=== PATIENT | female | born 1995 | race Caucasian/White ===

== ENCOUNTER → 2025-07-03 | Outpatient (CLI) | payer OTHER, SELFPAY ==
--- NOTE | 2025-07-03 10:36 | NM_ITS ---
PROCEDURE: GASTRIC EMPTYING STUDY 07/03/2025 REASON FOR EXAM: ABD PAIN TECHNIQUE: Procedure Code: NMGES Modality: NM Procedure: GASTRIC EMPTYING STUDY The patient ingested a standard meal of cooked oatmeal mixed with 1 mCi sulfur colloid, toasted white bread, jelly, and water. Total time taken to ingest the meal was 10 minutes. Approximately 90 % of the meal was ingested. There was no vomiting postprandially. Anterior and posterior planar images of the upper abdomen were obtained for 1 minute immediately following the meal at 1h, 2h and 4h if more than 10% of the activity persisted within the stomach. Regions of interest were drawn, and a geometric mean was used to calculate a [id number]. RADIOPHARMACEUTICAL: Sulfur colloid DOSE 1mCi FINDINGS: Percent activity remaining in stomach: 1 hour 90 % (normal 37-90%) NM/Gastric Emptying Study IMPRESSION: Normal gastric emptying study, no evidence of gastroparesis. T1/2 is 32.85 min utes Stomach was 90% empty at 60 minutes Reading Location: [id number]
--- OUTSIDE RECORDS SUMMARY | 2025-07-03 10:55 | XMS RPT_ITS | CCD ---
Author Organization [facility] ion [facility] Care Team Providers Care Pet Handler Name Role Phone Unavailable Unavailable Unavailable Will Salamanca RGuzman Unavailable Unavailable SalamancaAlainaWill RGuzman Unavailable Unavailable Salamanca, Will R. Unavailable Unavailable CONSULTANTS, PEDATRIC Unavailable Unavailabl e Alaina Salamancarick R. Unavailable Unavailable Salamanca, Will RGuzman Unavailable Unavailable CONSULTANTS, PEDATRIC Unavailable Unavailabl e No, Physician Unavailable Unavailable Shook, Hanane R Unavailable Unavailable Shook, Hanane R Unavailable Unavailable Meraz, Shruti L Unavailable Unavailable Meraz Shruti L Unavailable Unavailable SELF, SELF Referring Unavailable ELIZ TURNER Attending Unavailable SELF, SELF Referring Unavailable SANJANA RAMOS Attending Unavailabl e Unavailable Primary Care Provider Unavailabl e Unavailable Primary Care Provider Unavailabl e NO, PHYSICIAN Primary Care Unavailable DANIEL NAIK Attending Unavailable Unavailable Primary Care Provider Unavailabl e DAVALOS Attending Unavailable Rita Iqbal Unavailable Unavailable Primary Care Provider Unavailabl e STEPHANIA LOREDO MD Attending Unavailable RICARDA RANDALL MD Primary Care Unavailable SUSAN LIU Referring Unavailable Unavailable Primary Care Provider Unavailabl e Daniel Guerrero DO Primary Care Provider Daniel Guerrero DO Primary Care Provider Shar Manzanares DO Unavailable [phone] Mastruccmarianela RAMACHANDRANN.Boubacar JORDAN Primary Care Provider Qianaccmarianela LARA - Boubacar JORDAN Primary Care Provid er Shar Manzanares DO Unavailable [phone] Mastrucci 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.Boubacar JORDAN Unavailable Guerrero DO, Daniel T Primary Care Provider MASTRUCCI, BOUBACAR Primary Care Unavailable GENTILE, BOUBACAR Admitting Unavailable ELLYN, BOUBACAR Attending Unavailable DERITA, JESSICA Attending Unavailable MASTRUCCI, BOUBACAR Primary Care Unavailable TAMI DARNELL Attending Unavailable MASTRUCCI, BOUBACAR Primary Care Unavailable DERITA, JESSICA Attending Unavailable DERITA, JESSICA Referring Unavailable MASTRUCCI, BOUBACAR Primary Care Unavailable DERITA, JESSICA Attending Unavailable DERITA, JESSICA Referring Unavailable MASTRUCCI, BOUBACAR Primary Care Unavailable DERITA, JESSICA Attending Unavailable DERITA, JESSICA Referring Unavailable MASTRUCCI, BOUBACAR Primary Care Unavailable DERITA, JESSICA Attending Unavailable DERITA, JESSICA Referring Unavailable MASTRUCCI, BOUBACAR Primary Care Unavailable KIMI LUCAS Attending Unavailable DIANN ANDREW Attending Unavailable DERITA, JESSICA Attending Unavailable DERITA, JESSICA Referring Unavailable MASTRUCCI, BOUBACAR Primary Care Unavailable AMADOU DUNLAP Attending Unavailable NIHARIKA, AMADOU Referring Unavailable MASTRUCCI, BOUBACAR Primary Care Unavailable Daniel Guerrero MD Primary Care Provider Ramses Pyle MD Unavailable [phone] Daniel Guerrero DO Primary Care Provider Unavailable Primary Care Provider UnavailAashish Sierra RN Unavailable [facility] Hanna Unavailable Unavail able Aashish Skinner RN Unavailable Friend Dr. Alex STOLL Attending Provider [facility] Doctor, Out of Primary Care Provider Edwar evans [facility] Doctor, Out of Referring Provider Unavailab Daniel Arauz DO Primary Care Provider CONCEPCION TOTH Attending Unavailable SELF Referring Unavailable GUERRERO, DANIEL T Primary Care Unavailable RUBI GONCALVES Attending Unavailable MARTHA HASSAN Referring Unavailable GUERRERO, DANIEL T Primary Care Unavailable YANG WORKMAN Attending Unavailable MARTHA HASSAN Referring Unavailable GUERRERO, DANIEL T Primary Care Unavailable BEAU THURMAN Attending Unavailable GUERRERO, DANIEL T Primary Care Unavailable GUERRERO, DANIEL T Primary Care Unavailable JAN GREEN Attending Unavailable GUERRERO, DANIEL T Primary Care Unavailable MARQUITA MENJIVAR Attending Unavailable BOYDALIZA Attending Unavailable BOYD, ALIZA Referring Unavailable GUERRERO, DANIEL T Primary Care Unavailable GUERRERO, DANIEL T Attending Unavailable GUERRERO, DANIEL T Primary Care Unavailable MASTRUCCI, BOUBACAR Attending Unavailable MASTRUCCI, BOUBACAR Primary Care Unavailable MAKENZIE LYNN Referring Unavailable GUERRERO, DANIEL T Primary Care Unavailable SMITHNIEVES Attending Unavailable SELF Referring Unavailable GUERRERO, DANIEL T Primary Care Unavailable SMITHNIEVES Referring Unavailable GUERRERO, DANIEL T Primary Care Unavailable SMITHNIEVES Referring Unavailable GUERRERO, DANIEL T Primary Care Unavailable BOYD, ALIZA Attending Unavailable SELF Referring Unavailable GUERRERO, DANIEL T Primary Care Unavailable GUERRERO, DANIEL T Primary Care Unavailable YUAN SCHAFER Referring Unavailable GUERRERO, DANIEL T Primary Care Unavailable GUERRERO, DANIEL T Attending Unavailable GUERRERO, DANIEL T Primary Care Unavailable GUERRERO, DANIEL T Attending Unavailable SELF Referring Unavailable GUERRERO, DANIEL T Primary Care Unavailable BLESSING WRIGHT Attending Unavailable YANG WORKMAN Referring Unavailable GUERRERO, DANIEL T Primary Care Unavailable MILLA MOTLEY Admitting Unavailable MILLA MOTLEY Attending Unavailable SCHWMASHAKERTMILLA Referring Unavailable MASTRUCCI, BOUBACAR Primary Care Unavailable GUERRERO, DANIEL T Primary Care Unavailable BENNY PAGE Admitting Unavailable COLEEN GUILLEN Attending Unavailable CONCEPCION TOTH Consulting Unavailable ERICK HOLLOWAY Attending Unavailable GUERRERO, DANIEL M Primary Care Unavailable GUERRERO, DANIEL T Primary Care Unavailable SMITHNIEVES Attending Unavailable GUERRERO, DANIEL T Primary Care Unavailable MASTRUCCI, BOUBACAR Referring Unavailable MASTRUCCI, BOUBACAR Primary Care Unavailable RAMSES PYLE Referring Unavailable MASTRUCCI, BOUBACAR Primary Care Unavailable MASTRUCCI, BOUBACAR Attending Unavailable MASTRUCCI, BOUBACAR Referring Unavailable MASTRUCCI, BOUBACAR Primary Care Unavailable DANIEL MAURO Referring Unava ilable GUERRERO, DANIEL T Primary Care Unavailable GUERRERO, DANIEL T Attending Unavailable MASTRUCCI, BOUBACAR Primary Care Unavailable GUERRERO, DANIEL M Primary Care Unavailable RAMSES PYLE Attending Unavailable SELF Referring Unavailable MASTRUCCI, BOUBACAR Primary Care Unavailable RAMSES PYLE Attending Unavailable SELF Referring Unavailable GUERRERO, DANIEL T Primary Care Unavailable NEL ANDERSON Referring Unavailable GUERRERO, DANIEL T Primary Care Unavailable GUERRERO, DANIEL T Attending Unavailable GUERRERO, DANIEL T Primary Care Unavailable GUERRERO, DANIEL T Referring Unavailable GUERRERO, DANIEL T Primary Care Unavailable BEAU BOYDIN Attending Unavailable BOYD, YASSIN Referring Unavailable GUERRERO, DANIEL T Primary Care Unavailable GUERRERO, DANIEL T Referring Unavailable GUERRERO, DANIEL T Primary Care Unavailable GUERRERO, DANIEL T Primary Care Unavailable Liz Burns Attending Provider UnavailAlex Christine Attending Unavailable [facility] Doctor, Out of Referring Unavailable [facility] Doctor, Out of Primary Care Unavailable [facility] Doctor, Out of Referring Unavailable [facility] Doctor, Out of Primary Care Unavailable Alex De Luna Attending Unavailable PACKBERNARDLE Referring Unavailable GUERRERO, DANIEL T Primary Care Unavailable GUERRERO, DANIEL T Referring Unavailable GUERRERO, DANIEL T Primary Care Unavailable GUERRERO, DANIEL T Referring Unavailable GUERRERO, DANIEL T Primary Care Unavailable GUERRERO, DANIEL M Primary Care Unavailable PROVIDER, UNKNOWN Attending Unavailable PROVIDER, UNKNOWN Referring Unavailable MASTRUCCI, BOUBACAR Primary Care Unavailable MAKENZIE LYNN Referring Unavailable GUERRERO, DANIEL T Primary Care Unavailable GUERRERO, DANIEL T Primary Care Unavailable PRAVEEN CANALES Attending Unavailable CHERRI NEWMAN Attending Unavailable GUERRERO, DANIEL T Primary Care Unavailable GUERRERO, DANIEL T Primary Care Unavailable FELY GARCIA Attending Unavailable GUERRERO, DANIEL T Primary Care Unavailable GUERRERO, DANIEL T Primary Care Unavailable JOANN BRAXTON Attending Unavailable MARTHA HASSAN Referring Unavailable GUERRERO, DANIEL T Primary Care Unavailable MARTHA HASSAN Attending Unavailable GUERRERO, DANIEL T Primary Care Unavailable GUERRERO, DANIEL T Referring Unavailable PACK, MAKENZIE Referring Unavailable SAMRA ROSE Attending Unavailable GUERRERO, DANIEL T Primary Care Unavailable NICOLA TEIXEIRA Referring Unavailable GUERRERO, DANIEL T Primary Care Unavailable NICOLA TEIXEIRA Referring Unavailable GUERRERO, DANIEL T Primary Care Unavailable NICOLA TEIXEIRA Attending Unavailable GUERRERO, DANIEL T Primary Care Unavailable MARTHA HASSAN Attending Unavailable GUERRERO, DANIEL T Primary Care Unavailable GUERRERO, DANIEL T Primary Care Unavailable FELY GARCIA Referring Unavailable GUERRERO, DANIEL T Primary Care Unavailable YUAN SCHAFER Referring Unavailable YUAN SCHAFER Attending Unavailable GUERRERO, DANIEL T Primary Care Unavailable MAYUGAABIOLAH Referring Unavailable HASSANMARTHA Referring Unavailable GUERRERO, DANIEL T Primary Care Unavailable GUERRERO, DANIEL T Primary Care Unavailable CHERRI NEWMAN Attending Unavailable GUERRERO, DANIEL T Primary Care Unavailable GUERRERO, DANIEL T Primary Care Unavailable KUBICKIJENNE Referring Unavailable GUERRERO, DANIEL T Primary Care Unavailable CAMCKIFELY Referring Unavailable GUERRERO, DANIEL T Primary Care Unavailable GUERRERO, DANIEL T Referring Unavailable APPLE GRADY Attending Unavailable GUERRERO, DANIEL T Primary Care Unavailable SAMRA ROSE Attending Unavailable GUERRERO, DANIEL T Primary Care Unavailable HASSANMARTHA Referring Unavailable GUERRERO, DANIEL T Primary Care Unavailable MARTHA HASSAN Referring Unavailable GUERRERO, DANIEL T Primary Care Unavailable MAYUGAYUAN Referring Unavailable GUERRERO, DANIEL T Primary Care Unavailable MARTHA HASSAN Referring Unavailable DANIEL MAURO Attending Unava ilable GUERRERO, DANIEL T Primary Care Unavailable MAYUGAYUAN Referring Unavailable GUERRERO, DANIEL T Primary Care Unavailable RADHAUGAYUAN Attending Unavailable GUERRERO, DANIEL T Primary Care Unavailable GUERRERO, DANIEL T Referring Unavailable MAYUGAYUAN Referring Unavailable GUERRERO, DANIEL T Primary Care Unavailable JOANN BRAXTON Attending Unavailable GUERRERO, DANIEL T Primary Care Unavailable MAKENZIE LYNN Attending Unavailable GUERRERO, DANIEL T Primary Care Unavailable HASSANMARTHA Hunter Referring Unavailable GUERRERO, DANIEL T Primary Care Unavailable NEL ANDERSON Attending Unavailable GUERRERO, DANIEL T Primary Care Unavailable HASSANMARTHA Referring Unavailable GUERRERO, DANIEL T Primary Care Unavailable MAKENZIE LYNN Referring Unavailable GUERRERO, DANIEL T Primary Care Unavailable PACKMAKENZIE Attending Unavailable GUERRERO, DANIEL T Primary Care Unavailable GUERRERO, DANIEL M Primary Care Unavailable FERNIE CRUZ Attending Unavailable MASTRUBOUBACAR MORGAN Primary Care Unavailable BAHNTGE, DANIEL BASILIO Attending Unava ilable APPLE GRADY Referring Unavailable GUERRERO, DANIEL T Primary Care Unavailable APPLE GRADY Referring Unavailable NEL ANDERSON Attending Unavailable GUERRERO, DANIEL T Primary Care Unavailable SHARLENE MEANS Attending Unavailable FELY GARCIA Referring Unavailable GUERRERO, DANIEL T Primary Care Unavailable MO GUZMAN Attending Unavailable GUERRERO, DANIEL T Primary Care Unavailable BAHEPIFANIO, DANIEL BASILIO Referring Unava ilable GUNNAR ARMAS Attending Unavailable GUERRERO, DANIEL T Primary Care Unavailable MARTHA HASSAN Referring Unavailable GUERRERO, DANIEL T Primary Care Unavailable APPLE GRADY Attending Unavailable GUERRERO, DANIEL T Primary Care Unavailable SAMRA ROSE Referring Unavailable SAMRA ROSE Attending Unavailable GUERRERO, DANIEL T Primary Care Unavailable MO GUZMAN Attending Unavailable GUERRERO, DANIEL T Primary Care Unavailable FELY GARCIA Referring Unavailable PACKMAKENZIE Attending Unavailable GUERRERO, DANIEL T Primary Care Unavailable SELF Referring Unavailable APPLE GRADY Referring Unavailable RENATO LUKE Attending Unavailable GUERRERO, DANIEL T Primary Care Unavailable MARTHA HASSAN Referring Unavailable GUERRERO, DANIEL T Primary Care Unavailable MARTHA HASSAN Referring Unavailable GUERRERO, DANIEL T Primary Care Unavailable SHARLENE MEANS Attending Unavailable FELY GARCIA Referring Unavailable GUERRERO, DANIEL T Primary Care Unavailable MARTHA HASSAN Referring Unavailable GUERRERO, DANIEL T Primary Care Unavailable APPLE GRADY Referring Unavailable RENATO LUKE Attending Unavailable GUERRERO, DANIEL T Primary Care Unavailable CHERRI NEWMAN Attending Unavailable FELY GARCIA Referring Unavailable GUERRERO, DANIEL T Primary Care Unavailable MO GUZMAN Referring Unavailable GUERRERO, DANIEL T Primary Care Unavailable SHARLENE MEANS Attending Unavailable FELY GARCIA Referring Unavailable GUERRERO, DANIEL T Primary Care Unavailable SAMRA ROSE Attending Unavailable GUERRERO, DANIEL T Primary Care Unavailable FELY GARCIA Referring Unavailable GUERRERO, DANIEL T Primary Care Unavailable KATY GANT Referring Unavailable KATY GANT Attending Unavailable GUERRERO, DANIEL T Primary Care Unavailable JOSERNARDOALBA Referring Unavailable CATERINANARALBA STOLL Attending Unavailable GUERRERO, DANIEL T Primary Care Unavailable GUERRERO, DANIEL T Primary Care Unavailable FELY GARCIA Referring Unavailable HASSANMARTHA Referring Unavailable GUERRERO, DANIEL T Primary Care Unavailable MO GUZMAN Attending Unavailable GUERRERO, DANIEL T Primary Care Unavailable BENJY LIN Attending Unavailable GUERRERO, DANIEL T Primary Care Unavailable NEL ANDERSON Referring Unavailable GUERRERO, DANIEL T Primary Care Unavailable GUERRERO, DANIEL T Primary Care Unavailable CARLINE CARSON Referring Unavailable HASSANMARTHA Referring Unavailable GUERRERO, DANIEL T Primary Care Unavailable CARLINE CARSON Attending Unavailable GUERRERO, DANIEL T Primary Care Unavailable GUERRERO, DANIEL T Primary Care Unavailable NEL ANDERSON Referring Unavailable MARTHA HASSAN Referring Unavailable GUERRERO, DANIEL T Primary Care Unavailable FELY GARCIA Referring Unavailable GUERRERO, DANIEL T Primary Care Unavailable PACK MAKENZIE Referring Unavailable GUERRERO, DANIEL T Primary Care Unavailable PACK MAKENZIE Referring Unavailable GUERRERO, DANIEL T Primary Care Unavailable JOANN BRAXTON Attending Unavailable GUERRERO, DANIEL T Primary Care Unavailable DANIEL MAURO Referring Unava ilable RAMSES PYLE Referring Unavailable GUERRERO, DANIEL T Primary Care Unavailable GUERRERO, DANIEL T Primary Care Unavailable APPLE GRADY Referring Unavailable GUERRERO, DANIEL T Primary Care Unavailable FELY GARCIA Attending Unavailable GUERRERO, DANIEL T Primary Care Unavailable GUERRERO, DANIEL T Primary Care Unavailable NEL ANDERSON Attending Unavailable Allergies Allergy Classification Reported Allergen(s) Allergy Type Date of Onset Reaction(s) Facility (20 sources) Vancomycin Drug Allergy 09-06-19 20 [facility] Work Phone: (20 sources) Nitrofurantoin; Translations: [NITROFURANTOIN] Drug Allergy 10-09-19 21 [facility] Work Phone: (20 sources) pineapple allergenic extract; Translations: [PINEAPPLE] Drug Allergy 08-24-19 21 Hives, Swelling [facility] Work Phone: (4 sources) Beef-Derived Products Propensity to adverse reactions to drug 10-09-19 [facility] Work Phone: (7 sources) Eggs Or Egg-Derived Products Propensity to adverse reactions to drug 04-02-20 16 Hives [facility] Work Phone: (20 sources) Milk-Related Compounds Propensity to adverse reactions to drug 10-09-19 [facility] Work Phone: (20 sources) Peanut-Containing Drug Products Propensity to adverse reactions to drug 10-09-19 [facility] Work Phone: (20 sources) Soybean-Containing Drug Products Propensity to adverse reactions to drug 10-09-19 [facility] Work Phone: (20 sources) Egg; Translations: [EGG DERIVED] Drug Allergy 04-02-20 16 Hives, GI Upset [facility] (15 sources) Lactose; Translations: [LACTOSE] Drug Allergy 08-31-19 Other: See Comments [facility] (20 sources) Soy protein; Translations: [SOY] Drug Allergy 08-24-19 21 GI Upset [facility] (20 sources) tree nut, unspecified; Translations: [TREE NUTS] Drug Allergy 08-31-19 Other: See Comments [facility] (20 sources) Beef Containing Products; Translations: [BEEF CONTAINING PRODUCTS] Drug Allergy 04-02-20 16 Hives, Intolerance [facility] (20 sources) Pineapple Drug Allergy 08-24-19 21 Hives, Swelling [facility] (1 source) almond allergenic extract; Translations: [ALMOND] Drug Allergy 08-24-19 [facility] Rep[facility] (5 sources) Glycopeptides (Antibiotic); Translations: [VANCOMYCIN ANALOGUES] Propensity to adverse reactions to drug (disorder) 09-06-19 [facility] Repository (1 source) peanut allergenic extract; Translations: [PEANUT] Drug Allergy 04-02-20 [facility] Repository (1 source) DAIRY DIGESTIVE ULTRA; Translations: [DAIRY DIGESTIVE ULTRA] Propensity to adverse reactions to drug (disorder) 04-02-20 [facility] Rep[facility] (1 source) NITROFURANTOIN MONOHYD/M-CRYST; Translations: [NITROFURANTOIN MONOHYD/M-CRYST] Propensity to adverse reactions to drug (disorder) 10-31-19 [facility] Rep[facility] (20 sources) beta-Blocking agent; Translations: [BETA-BLOCKERS (BETA-ADRENERGIC BLOCKING AGTS)] Propensity to adverse reactions to drug 10-23-19 Contraindicati on-Medical Surgical [facility] (20 sources) Milk; Translations: [MILK CONTAINING PRODUCTS (DAIRY)] Drug Intolerance 04-02-20 16 Intolerance, [facility] Work Phone: (18 sources) almond allergenic extract Drug Allergy 08-24-19 [facility] (18 sources) Lactase / Lactobacillus acidophilus Drug Allergy 04-02-20 16 [facility] (17 sources) Lactose (non-medical use) Propensity to adverse reactions 08-31-19 [facility] (18 sources) Peanut Propensity to adverse reactions 04-02-20 16 [facility] (18 sources) Soy protein Propensity to adverse reactions 08-24-19 [facility] (18 sources) Beef Allergy Propensity to adverse reactions 04-02-20 16 [facility] (20 sources) beef allergenic extract; Translations: [BEEF DERIVED (BOVINE)] Drug Allergy 04-02-20 [facility] (15 sources) Egg-Derived Products Drug Intolerance 04-02-20 16 [facility] (1 source) Beef Containing Products Drug allergy (disorder) 02-27-20 [facility] Repository (1 source) pineapple Drug allergy (disorder) 02-27-20 [facility] Repository Medications Current Medications Medication Drug Class(es) Dates Sig (Normalized) Sig (Original) ALPRAZolam 0.25 mg oral tablet (4 sources) Benzodiazepine Start: 10-18-2022 End: 10-26-2022 take 1 tablet by mouth at bedtime as needed for anxiety ALPRAZolam (XANAX) 0.25 mg tablet Indications: Moderate persistent asthma without complication Take 1 tablet by mouth at bedtime as needed for anxiety for up to 8 days. 7 tablet 0 10/18/2022 10/26/2022 Active Start: 10-07-2022 End: 10-17-2022 take 1 tablet by mouth once daily ALPRAZolam (XANAX) 0.25 mg tablet Indications: Anxiety Take 1 tablet by mouth once daily for 10 days. 10 tablet 0 10/07/2022 10/17/2022 Active Comment on above: Take 1 tablet by giovanni th once daily for 10 days. Take 1 tablet by giovanni th at bedtime as needed for anxiety for up to 8 days. amitriptyline hydrochloride 50 mg oral tablet (20 sources) Tricyclic Antidepressant Start: 02-14-20 End: 02-14-20 take 1 tablet by mouth once daily at bedtime amitriptyline (ELAVIL) 50 mg tablet Take 1 tablet by mouth daily at bedtime. 30 tablet 11 02/13/2025 02/13/2026 Active Start: 12-06-2024 End: 01-07-2026 take 1 tablet by mouth once daily Amitriptyline 25 mg tablet Active 25 mg PO daily February 26, 2025 12:00am Start: 10-07-2024 End: 12-06-2024 take 0.5 tablet by mouth once daily at bedtime amitriptyline (ELAVIL) 25 mg tablet Take 0.5 tablets by mouth daily at bedtime. 10/07/2024 12/06/2024 Discontinued (Adjust Sig - Block E-Cancel) Start: 08-06-2024 End: 10-19-2024 take 1 tablet by mouth once daily at bedtime amitriptyline (ELAVIL) 25 mg tablet Take 1 tablet by mouth daily at bedtime. 30 tablet 09/19/2024 10/07/2024 Discontinued amoxicillin 875 mg oral tablet (10 sources) Penicillin-class Antibacterial Start: 01-17-2024 End: 01-24-2024 take 1 tablet by mouth twice daily amoxicillin (Amoxil) 875 MG tablet Take 1 tablet (875 mg) by mouth 2 times daily for 7 days. 14 tablet 01/17/2024 01/24/2024 Active End: 02-16-2024 amoxicillin (AMOXIL) 250 mg capsule Take by mouth three times a day. 0 02/16/2024 Discontinued Comment on above: Take by mouth three times a day. cephalexin 500 mg oral capsule (2 sources) Cephalosporin Antibacterial Start: 06-23-20 End: 06-30-20 take 1 capsule by mouth twice daily cephalexin (Keflex) 500 MG capsule Indications: Genitourinary Infection Take 1 capsule (500 mg) by mouth 2 times daily for 7 days. 14 capsule 0 06/23/2023 06/30/2023 Active diazePAM 5 mg oral tablet (1 source) Benzodiazepine Start: 06-18-20 End: 07-18-19 diazePAM (VALIUM) 5 mg tablet Indications: Chronic bladder pain , Vaginal pain 1 tablet at bedtime as needed for pain for up to 30 days. Insert vaginally qhs prn pelvic pain 30 tablet 0 06/18/2022 07/18/2022 Active Comment on above: 1 tablet at bedtime as needed for pain for up to 30 days. Insert vaginally qhs prn pelvic pain doxycycline hyclate 100 mg oral capsule (9 sources) Tetracycline-class Drug Start: 10-19-19 End: 01-17-20 take 1 capsule by mouth every twelve hours doxycycline hyclate (VIBRAMYCIN) 100 mg capsule Take 1 capsule by mouth every 12 hours 6am/6pm for 5 days. 10 capsule 0 10/18/2022 10/23/2022 Active take 1 capsule by mouth in the m orning doxycycline (Vibramycin) 100 MG capsule Take 100 mg by mouth in the morning and 100 mg in the evening. 0 Active take 1 capsule by mouth twice da mk doxycycline hyclate (VIBRAMYCIN) 100 MG capsule Take 100 mg by mouth 2 (two) times a day . Active Comment on above: Take 1 capsule by [facility] every 12 hours 6am/6pm for 5 days. fluticasone propionate 0.05 mg/actuat metered dose nasal spray (18 sources) Corticosteroid Start: 3 End: 4 take 1 spray(s) nasal route once daily fluticasone (FLONASE ALLERGY RELIEF) 50 mcg/actuation nasal spray Use 1 Morganza in each nostril once daily. 18.2 mL 1 02/10/2023 09/19/2023 Active Start: 10-18-2022 End: 11-17-2022 take 1 puff(s) by inhalation once daily fluticasone furoate (ARNUITY ELLIPTA) 50 mcg/actuation powder for inhalation Inhale 1 Puff as instructed once daily. 2 Each 0 10/18/2022 10/22/2022 Discontinued (Not on Formulary) End: 08-11-2023 fluticasone propionate (FLOV ENT HFA INHALATION) Inhale as instructed as needed. 0 08/11/2023 Discontinued fluticasone prop ionate (FLOVENT HFA INHALATION) Inhale as instructed as needed. 0 Active End: 02-10-2023 take 1 puff(s) by mouth twice daily fluticasone (FLOVENT) 44 mcg/actuation inhaler Inhale 1 Puff as instructed twice daily. Shake well before use. Rinse mouth after use. 0 02/10/2023 Discontinued (Course of therapy completed) Comment on above: Inhale 1 Puff as ins tructed once daily. Inhale 1 Puff as ins tructed twice daily. Shake well before use. Rinse mouth after use. Use 1 Morganza in each nostril once daily. Inhale as instructed as needed. hydrOXYzine hydrochloride 10 mg oral tablet (20 sources) Antihistamine Start: 02-27-20 take 1 tablet by mouth at bedtime as needed Hydroxyzine Hcl 10 mg tablet Active 10 mg PO AT BEDTIME as needed February 26, 2025 12:00am Start: 11-27-2024 End: 07-20-2025 take 2 tablets by mouth every six hours as needed for anxiety and anxiety hydrOXYzine HCl (ATARAX) 10 mg tablet Indications: Anxiety TAKE 2 TABLETS BY MOUTH EVERY 6 HOURS NEEDED FOR ANXIETY. 180 tablet 1 01/21/2025 07/20/2025 Active Start: 10-07-2024 End: 11-05-2024 take 2 tablets by mouth every six hours as needed for anxiety and anxiety hydrOXYzine HCl (ATARAX) 10 mg tablet Indications: Anxiety TAKE 2 TABLETS BY MOUTH EVERY 6 HOURS NEEDED FOR ANXIETY. 60 tablet 11/05/2024 Active iopamidol (ISOVUE-370) 76 % injection 75 mL (1 source) Start: 09-11-2020 iopamidol (ISOVUE-370) 76 % injection 75 mL ivabradine 5 mg oral tablet (20 sources) Hyperpolarizat ion-activated Cyclic Nucleotide-gat ed Channel Lela Start: 02-26-2025 take 1 tablet by mouth twice daily at mealtime Ivabradine 5 mg tablet Active 2.5 mg PO TWICE A DAY February 26, 2025 12:00am must administer with a meal/food Start: 12-06-2024 take 1.5 tablets by mouth twice daily ivabradine (CORLANOR) 5 mg tablet Indications: POTS (postural orthostatic tachycardia syndrome) , Tachycardia Take 1.5 tab by mouth twice a day 12/06/2024 Active Start: 10-11-2024 End: 01-09-2025 take 2.5 mg by mouth twice daily ivabradine (CORLANOR) 5 mg tablet Indications: POTS (postural orthostatic tachycardia syndrome) , Tachycardia Take 2.5 mg by mouth two times a day. 90 tablet 10/11/2024 12/06/2024 Discontinued (Adjust Sig - Block E-Cancel) Start: 10-07-2024 End: 10-11-2024 ivabradine (CORLANOR) 5 mg t ablet Indications: Tachycardia , POTS (postural orthostatic tachycardia syndrome) Take 2.5 mg by mouth three times a day. Take three times a day at 6am/2pm/10pm 135 tablet 10/07/2024 10/11/2024 Discontinued Start: 08-30-2024 End: 10-07-2024 take 2.5 mg by mouth twice daily ivabradine (CORLANOR) 5 mg tablet Indications: Palpitations , POTS (postural orthostatic tachycardia syndrome) , Sinus tachycardia Take 2.5 mg by mouth two times a day. 30 tablet 5 08/30/2024 10/07/2024 Discontinued meclizine hydrochloride 25 mg oral tablet (1 source) Antiemetic Start: 11-18-2021 End: 11-18-2022 take 1 tablet by mouth three times daily as needed meclizine (Antivert) 25 MG tablet Take 25 mg by mouth 3 times daily as needed. 0 11/18/2021 11/18/2022 Active metFORMIN hydrochloride 500 mg oral tablet (11 sources) Biguanide Start: 02-08-2025 End: 08-07-2025 take 1 tablet by mouth twice daily at mealtime metFORMIN (GLUCOPHAGE) 500 mg tablet Indications: PCOS (polycystic ovarian syndrome) Take 1 tablet by mouth two times a day with meals. 60 tablet 5 02/08/2025 08/07/2025 Active 24 hr metoprolol succinate 25 mg extended release oral tablet (20 sources) beta-Adrenergic Lela Start: 02-26-2025 take 2 tablets by mouth twice daily Metoprolol Succinate 25 mg tablet extended release 24 hr Active 12.5 mg PO TWICE A DAY February 26, 2025 12:00am Start: 01-07-2025 End: 01-07-2026 take 0.5 tablet by mouth twice daily metoprolol tartrate, short acting, (LOPRESSOR) 25 mg tablet Indications: Tachycardia , POTS (postural orthostatic tachycardia syndrome) Take 0.5 tablets by mouth two times a day. 90 tablet 3 01/07/2025 01/07/2026 Active Start: 01-02-2025 End: 01-04-2025 take 1 tablet by mouth twice daily metoprolol tartrate, short acting, (LOPRESSOR) 25 mg tablet Indications: Tachycardia , POTS (postural orthostatic tachycardia syndrome) TAKE 1/2 TABLET TWICE A DAY BY MOUTH 90 tablet 01/02/2025 01/04/2025 Discontinued Start: 10-07-2024 End: 01-02-2025 take 0.5 tablet by mouth twice daily metoprolol tartrate, short acting, (LOPRESSOR) 25 mg tablet Indications: Tachycardia , POTS (postural orthostatic tachycardia syndrome) Take 0.5 tablets by mouth two times a day. 90 tablet 10/07/2024 01/02/2025 Discontinued norethindrone 0.35 mg oral tablet (20 sources) Start: 12-24-2024 take 1 tablet by mouth once daily Norethindrone, Contraceptive, 0.35 mg tablet Take 1 tablet by mouth once daily. 84 tablet 3 12/24/2024 Active omeprazole 20 mg delayed release oral capsule (20 sources) Proton Pump Inhibitor Start: 12-26-2024 End: 06-24-2025 take 1 capsule by mouth twice daily omeprazole (PRILOSEC) 20 mg capsule Take 1 capsule by mouth two times a day. 180 capsule 1 12/26/2024 06/24/2025 Active Start: 11-06-2020 End: 01-17-2024 omeprazole (PriLOSEC) [address] capsule Take 20 mg by mouth. 11/06/2020 01/17/2024 Discontinued (Med list cleanup) Start: 09-27-2019 End: 06-20-2022 take 1 capsule by mouth once daily Omeprazole 40 mg capsule Take 1 capsule by mouth once daily. 30 capsule 3 09/27/2019 06/20/2022 Discontinued Comment on above: Take 1 capsule by [facility] once daily. promethazine hydrochloride 12.5 mg oral tablet (4 sources) Phenothiazine Start: 10-09-19 End: 10-19-19 take 1 tablet by mouth three times daily as needed for nausea promethazine (PHENERGAN) 12.5 MG tablet Take 1 tablet by mouth 3 times daily as needed for Nausea 30 tablet 0 10/08/2020 10/18/2020 Active Start: 09-11-2020 End: 09-11-2020 promethazine (PHENERGAN) inj ection 12.5 mg sertraline 25 mg oral tablet (20 sources) Serotonin Reuptake Inhibitor Start: 02-26-2025 Sertraline (Zoloft) 25 mg tablet Active 12.5 mg PO daily February 26, 2025 12:00am Start: 10-07-2024 End: 07-27-2025 take 0.5 tablet by mouth once daily sertraline (ZOLOFT) 25 mg tablet Indications: Anxiety Take 0.5 tablets by mouth once daily. 45 tablet 2 10/30/2024 07/27/2025 Active tinidazole 500 mg oral tablet (6 sources) Nitroimidazole Antimicrobial Start: 12-31-2024 End: 12-31-2024 take 4 tablets by mouth once tinidazole (TINDAMAX) 500 mg tablet Take 2,000 mg by mouth one time only. 12/31/2024 Active Completed/Discontinued Medications Medication Drug Class(es) Dates Sig (Normalized) Sig (Original) Acetaminophen (2 sources) Start: 02-28-2024 End: 03-01-2024 take 1 tablet by mouth every four hours as needed for pain acetaminophen (Tylenol) tablet 650 mg acetylcholine 10% solution - [facility] (2 sources) Start: 10-25-2024 End: 10-25-2024 acetylcholine 10% solution - [facility] Start: 10-25-2024 End: 10-25-2024 20 mL, IRRIGATION, ONCE, 1 d ose, On Angie 10/25/24 at 0830, Protect from Light. Refrigerate, AMB MED ORDERS [id number] 200 actuat albuterol 0.09 mg/actuat metered dose inhaler (20 sources) beta2-Adrenergic Agonist Start: 09-27-2022 End: 08-30-2024 take 1-2 puff(s) by inhalation every four to six hours as needed albuterol HFA (PROVENTIL HFA, VENTOLIN HFA) 90 mcg/actuation inhaler INHALE 1 TO 2 PUFFS EVERY 4 TO 6 HOURS NEEDED FOR WHEEZE FOR UP TO 30 DAYS 0 09/27/2022 Active Start: 06-12-2020 take 1 puff(s) by in halation every six hours as needed albuterol 108 (90 Base) MCG/ACT inhaler Inhale 1 puff every 6 hours as needed. 06/12/2020 Active take 1-2 puff(s) by inhalation every six hours as needed for wheezing albuterol HFA (PROVENTIL HFA, VENTOLIN HFA) 90 mcg/actuation inhaler Inhale 1-2 puffs as instructed every 6 hours as needed for wheezing/shortness of breath. Active albuterol 0.63 M G/3ML nebulizer solution Inhale 1 ampule. Active Comment on above: INHALE 1 TO 2 PUFFS EVERY 4 TO 6 HOURS NEEDED FOR WHEEZE FOR UP TO 30 DAYS aspirin 81 mg chewable tablet (2 sources) Platelet Aggregation Inhibitor, Nonsteroidal Anti-inflammatory Drug Start: End: take 324 mg by mouth once 324 mg, Oral, Once, On Tue02/28/24 at 1745, For 1 dose azelastine hydrochloride 0.137 mg/actuat metered dose nasal spray (20 sources) Histamine-1 Receptor Antagonist Start: End: take 1-2 spray(s) nasal route twice daily as needed azelastine 0.1% nasal spray Use 1-2 Sprays in each nostril two times a day as needed. 30 mL 11 04/25/2024 08/30/2024 Discontinued bifidobacterium infantis 4 mg oral capsule (8 sources) Start: End: take 1 capsule by mouth in the morning Probiotic Product (Align) capsule Take 4 mg by mouth in the morning. 09/27/2019 01/17/2024 Discontinued (Med list cleanup) Comment on above: Take 1 capsule by [facility] once daily. bisoprolol fumarate 5 mg oral tablet (20 sources) beta-Adrenergic Lela Start: End: take 1 tablet by mouth once daily bisoprolol (ZEBETA) 5 mg tablet Take 1 tablet by mouth once daily. 30 tablet 5 04/30/2024 09/05/2024 Discontinued (Course of therapy completed) Budesonide / formoterol (20 sources) Corticosteroid, beta2-Adrenergic Agonist Start: End: take 2 puff(s) by inhalation twice daily budesonide-formoter ol (SYMBICORT) 160-4.5 mcg/actuation inhaler Inhale 2 Puffs as instructed two times a day. 10.2 g 5 03/23/2024 12/06/2024 Discontinued Start: 03-23-2024 take 2 puff(s) by in halation twice daily budesonide-formoterol (SYMBICORT) 160-4.5 mcg/actuation inhaler Inhale 2 Puffs as instructed two times a day. 10.2 g 5 03/23/2024 Active Start: 11-18-2022 End: 08-11-2023 take 2 puff(s) by inhalation twice daily budesonide-formoterol (SYMBICORT) 80-4.5 mcg/actuation inhaler Indications: Mild persistent asthma, unspecified whether complicated Inhale 2 Puffs as instructed twice daily. 14 g 2 11/18/2022 08/11/2023 Discontinued Start: 11-18-2022 take 2 puff(s) by in halation twice daily budesonide-formoterol (SYMBICORT) 80-4.5 mcg/actuation inhaler Indications: Mild persistent asthma, unspecified whether complicated Inhale 2 Puffs as instructed twice daily. 14 g 2 11/18/2022 Active Start: 11-18-2022 End: 02-16-2023 take 2 puff(s) by inhalation twice daily budesonide-formoterol (SYMBICORT) 80-4.5 mcg/actuation inhaler Indications: Mild persistent asthma, unspecified whether complicated Inhale 2 Puffs as instructed twice daily. 14 g 2 11/18/2022 02/16/2023 Active take 2 puff(s) by in halation twice daily budesonide-formoterol (SYMBICORT) 160-4.5 mcg/actuation inhaler Inhale 2 puffs as instructed two times a day. Active End: 03-23-2024 take 2 puff(s) by inhalation twice daily budesonide-formoterol (SYMBICORT) 80-4.5 mcg/actuation inhaler Inhale 2 Puffs as instructed two times a day. 03/23/2024 Discontinued (Course of therapy completed) take 2 puff(s) by in halation twice daily budesonide-formoterol (SYMBICORT) 80-4.5 mcg/actuation inhaler Inhale 2 Puffs as instructed two times a day. Active take 2 puff(s) by in halation twice daily budesonide-formoterol (SYMBICORT) 80-4.5 mcg/actuation inhaler Inhale 2 Puffs as instructed two times a day. 0 Active Comment on above: Inhale 2 Puffs as in structed twice daily. calcium chloride 0.0014 meq/ml / potassium chloride 0.004 meq/ml / sodium chloride 0.103 meq/ml / sodium lactate 0.028 meq/ml injectable solution (2 sources) Start: 02-29-20 End: 02-29-20 24 500 mL, IntraVENous, at 125 mL/hr, Administer over 4 Hours, Once, On Tue02/29/24 at 1915, For 1 dose cetirizine hydrochloride 10 mg oral tablet (4 sources) Histamine-1 Receptor Antagonist Start: 09-29-19 25 End: 03-19-20 take 1 tablet by mouth once daily cetirizine (ZYRTEC) 10 mg tablet Take 1 tablet by mouth once daily for 7 days. 7 tablet 09/28/2024 03/19/2025 dexamethasone 1 mg/ml / neomycin 3.5 mg/ml / polymyxin b [id number] unt/ml ophthalmic suspension (6 sources) Aminoglycoside Antibacterial, Polymyxin-class Antibacterial, Corticosteroid End: 01-17-20 amzmtink-duylvygel-r exAMETHasone (Maxitrol) 0.1 % ophthalmic suspension 1 drop in the morning and 1 drop at noon and 1 drop in the evening and 1 drop before bedtime. 01/17/2024 Discontinued (Med list cleanup) take 1 drop(s) into the eye(s) four times daily jfmjgbid-rvjvvjehu-ymgsbbmdlihqu (MAXITR OL) 3.5mg/mL-10,000 unit/mL-0.1 % ophthalmic suspension 1 drop 4 (four) times a day . Active dicyclomine hydrochloride 20 mg oral tablet (3 sources) Anticholinergic Start: 09-27-2019 End: 06-20-2022 take 1 tablet by mouth every six hours as needed dicyclomine (BENTYL) 20 mg tablet Take 1 tablet by mouth four times daily as needed. 120 tablet 2 09/27/2019 06/20/2022 Discontinued Comment on above: Take 1 tablet by giovanni four times daily as needed. diphenhydrAMINE hydrochloride 25 mg oral tablet (1 source) Histamine-1 Receptor Antagonist Start: 01-05-2022 End: 01-05-2022 diphenhydrAMINE (BENADRYL) tablet 25 mg drospirenone / Ethinyl Estradiol (11 sources) Progestin, Estrogen Start: 10-07-2022 End: 03-10-2023 take 1 tablet by mouth once daily Drospirenone-Ethiny l Estradiol (MARCOS, 28,) 3-0.02 mg per tablet Indications: Secondary amenorrhea Take 1 tablet by mouth once daily. 84 tablet 4 10/07/2022 03/10/2023 Discontinued (.All criteria met for discontinuation) Start: 10-07-2022 take 1 tablet by giovanni once daily Drospirenone-Ethinyl Estradiol (MARCOS, 28,) 3-0.02 mg per tablet Indications: Secondary amenorrhea Take 1 tablet by mouth once daily. 84 tablet 4 10/07/2022 Active Comment on above: Take 1 tablet by giovanni once daily. DULoxetine 30 mg delayed release oral capsule (20 sources) Serotonin and Norepinephrine Reuptake Inhibitor Start: 04-19-20 End: 06-29-20 take 1 capsule by mouth once daily DULoxetine (CYMBALTA) 30 mg capsule Indications: Anxiety Take 1 capsule by mouth once daily. 30 capsule 2 04/19/2024 06/29/2024 Discontinued Start: 10-22-2022 End: 03-10-2023 take 1 capsule by mouth once daily DULoxetine (CYMBALTA) 30 mg capsule Indications: Anxiety Take 1 capsule by mouth once daily. 30 capsule 2 10/22/2022 03/10/2023 Discontinued (.All criteria met for discontinuation) Start: 10-07-2022 take 1 capsule by mo [facility] once daily DULoxetine (CYMBALTA) 30 mg capsule Indications: Anxiety Take 1 capsule by mouth once daily. 30 capsule 2 10/07/2022 Active Comment on above: Take 1 capsule by mo [facility] once daily. [id number] 0.3 ml EPINEPHrine 1 mg/ml auto-injector (20 sources) alpha-Adrenergic Agonist, beta-Adrenergic Agonist, Catecholamine End: EPINEPHrine (EPIPEN) 0.3 mg/0.3 mL auto-injector Inject 0.3 mg intramuscularly as needed. 10/07/2024 Discontinued Comment on above: Inject 0.3 mg intram uscularly as needed. escitalopram 10 mg oral tablet (4 sources) Serotonin Reuptake Inhibitor Start: End: take 1 tablet by mouth once daily escitalopram oxalate (LEXAPRO) 10 mg tablet Indications: Anxiety and depression Take 1 tablet by mouth once daily. 90 tablet 03/13/2024 03/23/2024 Discontinued (Discontinued by Patient) Ethinyl Estradiol / Ferrous fumarate / Norethindrone (8 sources) Estrogen Start: End: take 1 tablet by mouth once daily norethindrone-e.estrad iol-iron (LO LOESTRIN FE) 1 mg-10 mcg (24)/10 mcg (2) Indications: Secondary amenorrhea Take 1 tablet by mouth once daily. 84 tablet 4 08/11/2023 02/16/2024 Discontinued Start: 08-11-2023 take 1 tablet by giovanni once daily norethindrone-e.estradiol-iron (LO LOEST RIN FE) 1 mg-10 mcg (24)/10 mcg (2) Indications: Secondary amenorrhea Take 1 tablet by mouth once daily. 84 tablet 4 08/11/2023 Active Comment on above: Take 1 tablet by giovanni th once daily. famotidine 20 mg oral tablet (11 sources) Histamine-2 Receptor Antagonist Start: End: take 1 tablet by mouth twice daily famotidine (PEPCID) 20 mg tablet Take 1 tablet by mouth two times a day for 7 days. 14 tablet 09/28/2024 10/01/2024 Discontinued (Discontinued by Patient) Start: 10-08-2020 End: 01-17-2024 take 1 tablet by mouth at bedtime famotidine (Pepcid) 20 MG tablet Take 1 tablet by mouth in the morning and at bedtime. 10/08/2020 01/17/2024 Discontinued (Med list cleanup) Start: 09-11-2020 End: 09-11-2020 famotidine (PEPCID) injectio n 20 mg fludrocortisone acetate 0.1 mg oral tablet (18 sources) Start: 04-25-2024 End: 04-25-2025 take 0.05 mg by mouth once daily fludrocortisone (FLORINEF) 0.1 mg tablet Take 0.05 mg by mouth once daily. 04/25/2024 09/05/2024 Discontinued (Course of therapy completed) Start: 03-14-2024 End: 04-25-2025 take 0.5 tablet by mouth once daily fludrocortisone (Florinef) 0.1 MG tablet Take 0.5 tablets (0.05 mg) by mouth daily. 30 tablet 3 04/25/2024 04/25/2025 Active FLUoxetine 10 mg oral capsule (6 sources) Serotonin Reuptake Inhibitor Start: 02-16-2024 End: 03-13-2024 take 1 capsule by mouth once daily in the morning, then take 2 capsules by mouth once daily in the morning FLUoxetine (PROZAC) 10 mg capsule Indications: Anxiety and depression 1 PO once every morning x 2 weeks then increase to two tablets=20 mg PO once every morning afterwards 45 capsule 2 02/16/2024 03/13/2024 Discontinued fluticasone / salmeterol (20 sources) Corticosteroid, beta2-Adrenergic Agonist Start: 12-02-2024 End: 12-24-2024 take 1 puff(s) by inhalation twice daily fluticasone-salmet humble (ADVAIR) 500-50 mcg/dose dsdv Inhale 1 puff as instructed two times a day. 12/02/2024 12/24/2024 Discontinued Start: 12-02-2024 take 1 puff(s) by in halation twice daily fluticasone-salmeterol (ADVAIR) 500-50 mcg/dose dsdv Inhale 1 puff as instructed two times a day. 12/02/2024 Active Start: 07-23-2024 End: 08-30-2024 take 1 puff(s) by mouth twice daily fluticasone-salmeterol (ADVAIR DISKUS) 500-50 mcg/dose dsdv Inhale 1 Puff as instructed two times a day. Rinse and gargle mouth with water after each use. 60 Each 07/23/2024 08/30/2024 Discontinued Start: 07-23-2024 take 1 puff(s) by mo uth twice daily fluticasone-salmeterol (ADVAIR DISKUS) 500-50 mcg/dose dsdv Inhale 1 Puff as instructed two times a day. Rinse and gargle mouth with water after each use. 60 Each 07/23/2024 Active ibuprofen 600 mg oral tablet (2 sources) Nonsteroidal Anti-inflammatory Drug Start: 02-28-2024 End: 02-29-2024 take 600 mg by mouth once 600 mg, Oral, Once, On Tue02/28/24 at 2345, For 1 dose ipratropium bromide 0.021 mg/actuat metered dose nasal spray (2 sources) Anticholinergic Start: 03-10-2023 End: 08-11-2023 Ipratropium [place] (ATROVENT) 21 mcg (0.03 %) nasal spray Use 2 Sprays in the nose every 12 hours. 90 mL 3 03/10/2023 08/11/2023 Discontinued Comment on above: Use 2 Sprays in the nose every 12 hours. iv contrast (will be provided with radiology test) (2 sources) Start: 02-10-2023 End: 02-11-2023 inject 1 dose intravenously once iv contrast (will be provided with radiology test) MRI Brain Inject, intravenously, once for 1 dose.No IV access, insert saline lock prior to beginning of sedation, infusion, injection of imaging exam.Discontinue saline lock post exam. If Pt. has a central line or IVAD, may access for administration according to line specific nursing protocol.Once exam is complete flush line and de-access according to line specific nursing protocol in the MR contrast administration guidelines link 1 Each 0 02/10/2023 02/11/2023 Start: 02-10-2023 End: 02-11-2023 inject 1 dose intravenously once iv contrast (will be provided with radiology test) MRI Brain Inject, intravenously, once for 1 dose.No IV access, insert saline lock prior to beginning of sedation, infusion, injection of imaging exam.Discontinue saline lock post exam. If Pt. has a central line or IVAD, may access for administration according to line specific nursing protocol.Once exam is complete flush line and de-access according to line specific nursing protocol in the MR contrast administration guidelines link 1 Each 0 02/10/2023 02/11/2023 Active Comment on above: MRI Brain Inject, in travenously, once for 1 dose.No IV access, insert saline lock prior to beginning of sedation, infusion, injection of imaging exam.Discontinue saline lock post exam. If Pt. has a central line or IVAD, may access for administration according to line specific nursing protocol.Once exam is complete flush line and de-access according to line specific nursing protocol in the MR contrast administration guidelines link 200 actuat levalbuterol 0.045 mg/actuat metered dose inhaler (15 sources) beta2-Adrenergic Agonist Start: 023 End: 024 take 1-2 puff(s) by inhalation every four hours as needed for wheezing levalbuterol tartrate HFA (XOPENEX HFA) 45 mcg/actuation inhaler Indications: Mild persistent asthma, unspecified whether complicated Inhale 1-2 Puffs as instructed every 4 hours as needed for wheezing/shortness of breath. 1 Each 5 10/22/2022 08/11/2023 Discontinued take 2 puff(s) by in halation every four hours as needed for wheezing levalbuterol tartrate HFA 45 mcg/actuati on inhaler Inhale 2 puffs as instructed every 4 hours as needed for wheezing/shortness of breath. Active Comment on above: Inhale 1-2 Puffs as instructed every 4 hours as needed for wheezing/shortness of breath. LEVALBUTEROL TARTRATE INHALATION (6 sources) End: 12-06-2024 LEVALBUTEROL TARTRATE INHALATION Inhale as instructed. 12/06/2024 Discontinued LEVALBUTEROL TAR TRATE INHALATION Inhale as instructed. Active lidocaine hydrochloride 0.02 mg/mg topical gel (2 sources) Antiarrhythmic, Amide Local Anesthetic Start: 11-08-2023 End: 11-08-2023 lidocaine urojet 2 % 6 mL topical gel (GLYDO) Start: 11-08-2023 End: 11-08-2023 lidocaine urojet 2 % 6 mL to pical gel (GLYDO) Magnesium (1 source) Start: 06-18-2022 End: 06-18-2022 take 1 tablet by mouth once daily Magnesium 250 mg tab Indications: Insomnia, unspecified type Take 1 tablet by mouth once daily. 60 tablet 2 06/18/2022 06/18/2022 Discontinued Comment on above: Take 1 tablet by giovanni th once daily. 50 ml magnesium sulfate 40 mg/ml injection (2 sources) Start: 03-01-2024 End: 03-01-2024 2,000 mg, IntraVENous, at 25 mL/hr, Administer over 2 Hours, Once, On Angie 03/01/24 at 0800, For 1 dose, Recommended infusion rate not to exceed 1,000 mg (milligrams) per hour. medroxyPROGESTERone acetate 10 mg oral tablet (20 sources) Progestin Start: 08-01-2024 End: 12-24-2024 medroxyPROGESTERone (PROVERA) 10 mg tablet Take 10 mg by mouth. 10/24/2024 12/24/2024 Discontinued Start: 10-07-2022 End: 08-11-2023 take 1 tablet by mouth once daily medroxyPROGESTERone (PROVERA) 10 mg tablet Indications: Secondary amenorrhea Take 1 tablet by mouth once daily. 10 tablet 0 10/07/2022 08/11/2023 Discontinued Comment on above: Take 1 tablet by giovanni th once daily. methylPREDNISolone (1 source) Corticosteroid End: 2023 methylPREDNISolone (MEDROL DOSE-PACK) 4 mg Dose-Pack as directed. 03/13/2024 Discontinued 24 hr mirabegron 50 mg extended release oral tablet (2 sources) beta3-Adrenergic Agonist Start: 2023 End: 2023 take 1 tablet by mouth once daily mirabegron (MYRBETRIQ) 50 mg Tb24 Take 1 tablet by mouth once daily. 30 tablet 11 11/08/2023 02/16/2024 Discontinued miSOPROStol 0.2 mg oral tablet (11 sources) Prostaglandin E1 Analog Start: 2024 End: 2024 miSOPROStol (CYTOTEC) 200 mcg tablet Indications: Abnormal uterine bleeding (AUB) Take 1 tablet by mouth as directed. Take 2 (two) tablets by mouth at bedtime (one) night before the procedure. 2 tablet 11/21/2024 12/24/2024 Discontinued montelukast 10 mg oral tablet (10 sources) Leukotriene Receptor Antagonist Start: 2022 End: 2023 take 1 tablet by mouth once daily at bedtime montelukast (SINGULAIR) 10 mg tablet Indications: Mild persistent asthma, unspecified whether complicated , Elevated IgE level Take 1 tablet by mouth daily at bedtime. 30 tablet 5 10/22/2022 08/11/2023 Discontinued Comment on above: Take 1 tablet by giovanni th daily at bedtime. nitroglycerin 0.3 mg sublingual tablet (20 sources) Nitrate Vasodilator Start: 2023 End: 2024 take 1 tablet under the tongue once nitroglycerin sublingual (NITROQUICK) 0.3 mg SL tablet Dissolve 1 tablet under the tongue one time only for 1 dose. To be administered in Radiology for CTA exam 1 tablet 05/28/2024 09/05/2024 Discontinued (Course of therapy completed) ondansetron 4 mg disintegrating oral tablet (10 sources) Serotonin-3 Receptor Antagonist Start: 2021 End: 2023 take 1 tablet by mouth every eight hours as needed ondansetron ODT (Zofran-ODT) 4 MG disintegrating tablet Take 4 mg by mouth every 8 hours as needed. 11/18/2021 01/17/2024 Discontinued (Med list cleanup) Start: 09-11-2020 take 1 tablet by giovanni th three times daily as needed for nausea ondansetron (ZOFRAN) 4 MG tablet Take 1 tablet by mouth 3 times daily as needed for Nausea or Vomiting 15 tablet 0 09/11/2020 Active ondansetron ODT (Zofran-ODT) disintegrating tablet 4 mg (2 sources) Start: 02-28-2024 End: 03-01-2024 take 1 tablet by mouth every eight hours as needed for nausea and vomiting ondansetron ODT (Zofran-ODT) disintegrating tablet 4 mg pantoprazole 40 mg delayed release oral tablet (20 sources) Proton Pump Inhibitor Start: 09-19-2024 End: 11-05-2025 take 1 tablet by mouth once daily pantoprazole DR (PROTONIX) 40 mg tablet Take 1 tablet by mouth once daily. 90 tablet 3 11/05/2024 12/26/2024 Discontinued Start: 06-05-2024 End: 07-23-2024 take 1 tablet by mouth once daily 30 minutes before mealtime pantoprazole DR (PROTONIX) 40 mg tablet Take 1 tablet by mouth once daily. 30 minutes before a meal 30 tablet 2 06/05/2024 07/23/2024 Discontinued Start: 04-17-2024 End: 05-10-2024 take 1 tablet by mouth once daily pantoprazole DR (PROTONIX) 40 mg tablet Indications: Gastroesophageal reflux disease with esophagitis without hemorrhage Take 1 tablet by mouth once daily. 30 tablet 2 04/17/2024 05/10/2024 Discontinued Start: 03-01-2024 End: 03-29-2024 take 1 tablet by mouth once daily pantoprazole (ProtoNix) 40 MG EC tablet Take 1 tablet (40 mg) by mouth Nightly. Do not crush, chew, or split. 30 tablet 03/01/2024 Active Start: 02-29-2024 End: 03-01-2024 pantoprazole (ProtoNix) EC t ablet 40 mg pentosan polysulfate 100 mg oral capsule (6 sources) Glycosaminoglycan End: 01-17-2024 pentosan polysulfate (Elmiron) 100 MG capsule Take 100 mg by mouth. 01/17/2024 Discontinued (Med list cleanup) polyethylene glycol 3350 17356 mg powder for oral solution (8 sources) Osmotic Laxative Start: 09-27-2019 End: 01-17-2024 polyethylene glycol, PEG, 3350 (Glycolax) 17 GM/SCOOP powder Take 17 g by mouth in the morning. 09/27/2019 01/17/2024 Discontinued (Med list cleanup) Comment on above: Take 17 g by mouth o nce daily. predniSONE 20 mg oral tablet (6 sources) Start: 09-28-2024 End: 10-01-2024 take 2 tablets by mouth once daily predniSONE (DELTASONE) 20 mg tablet Take 2 tablets by mouth once daily for 5 days. 10 tablet 09/28/2024 10/01/2024 Discontinued (Discontinued by Patient) Start: 11-01-2022 End: 11-06-2022 take 2 tablets by mouth once daily predniSONE (DELTASONE) 20 mg tablet Indications: Mild persistent asthma with acute exacerbation Take 2 tablets by mouth once daily for 5 days. 10 tablet 0 11/01/2022 11/06/2022 Active Start: 01-05-2022 End: 01-10-2022 take 2 tablets by mouth once daily predniSONE (DELTASONE) 10 MG tablet Take 2 tablets by mouth daily for 5 days 10 tablet 0 01/05/2022 01/10/2022 Active Start: 01-05-2022 End: 01-05-2022 predniSONE (DELTASONE) table t 40 mg End: 10-22-2022 take 1 tablet by mouth twice daily predniSONE (DELTASONE) 10 mg tablet Take 10 mg by mouth twice daily. X5 days 0 10/22/2022 Discontinued (Course of therapy completed) Comment on above: Take 10 mg by mouth twice daily. X5 days Take 2 tablets by mo [facility] once daily for 5 days. QULIPTA 60 mg tablet (1 source) Start: 04-07-2023 End: 08-11-2023 take 1 tablet by mouth once QULIPTA 60 mg tablet Take 1 tablet by mouth every afternoon. 0 04/07/2023 08/11/2023 Discontinued Comment on above: Take 1 tablet by giovanni every afternoon. 50 ml sodium chloride 9 mg/ml injection (8 sources) Start: 02-28-2024 End: 02-29-2024 1,000 mL, IntraVENous, at 1,000 mL/hr, Administer over 1 Hours, Once, On Tue02/29/24 at 1645, For 1 dose Start: 10-13-2020 0.9 % sodium c hloride infusion Start: 09-11-2020 End: 09-11-2020 0.9 % sodium chloride bolus sucralfate 1000 mg oral tablet (10 sources) Aluminum Complex Start: 03-29-2024 End: 04-28-2024 take 1 tablet by mouth four times daily sucralfate (CARAFATE) 1 gram tablet Indications: Gastroesophageal reflux disease with esophagitis without hemorrhage Take 1 tablet by mouth four times daily. 120 tablet 03/29/2024 04/17/2024 Discontinued Sulfamethoxazole / Trimethoprim (9 sources) Dihydrofolate Reductase Inhibitor Antibacterial, Sulfonamide Antimicrobial End: 01-17-2024 take 1 tablet by mouth twice daily Sulfamethoxazole-Tri methoprim (SULFAMETHOXAZOLE-TM P DS PO) Take by mouth Dosage not listed on bottle, Pt is taking 1 tab BID x 10 days. 01/17/2024 Discontinued (Med list cleanup) take 1 tablet by giovanni th twice daily Sulfamethoxazole-Trimethoprim (SULFAMETH OXAZOLE-TMP DS PO) Take by mouth Dosage not listed on bottle, Pt is taking 1 tab BID x 10 days. 0 Active topiramate 25 mg oral tablet (20 sources) Start: 04-03-2024 End: 04-03-2025 take 1 tablet by mouth once daily, then take 1 tablet by mouth twice daily topiramate (TOPAMAX) 25 mg tablet Take by mouth. One pill daily for a week; then one pill twice daily for a week; then one pill three times daily for a week; then two pills twice daily thereafter. 120 tablet 11 04/03/2024 08/30/2024 Discontinued traZODone hydrochloride 50 mg oral tablet (12 sources) Serotonin Reuptake Inhibitor Start: 07-10-2024 End: 10-08-2024 take 1 tablet by mouth once daily at bedtime, then take 0.5 tablet by mouth once daily at bedtime traZODone (DESYREL) 50 mg tablet Take 1 tablet by mouth daily at bedtime. Take a 1/2 tablet by mouth daily at bedtime. 30 tablet 2 07/10/2024 08/06/2024 Discontinued venlafaxine 37.5 mg oral tablet (12 sources) Serotonin and Norepinephrine Reuptake Inhibitor Start: 03-30-2024 End: 04-29-2024 take 1 tablet by mouth twice daily venlafaxine (EFFEXOR) 37.5 mg tablet Indications: Anxiety and depression Take 1 tablet by mouth two times a day. 60 tablet 03/30/2024 04/19/2024 Discontinued (Side Effects) Start: 03-29-2024 End: 04-28-2024 take 1 capsule by mouth once daily venlafaxine ER (EFFEXOR XR) 37.5 mg 24 hr capsule Indications: Anxiety and depression Take 1 capsule by mouth once daily. 30 capsule 03/29/2024 03/30/2024 Discontinued vitamin b12 1 mg/ml injectable solution (20 sources) Vitamin B12 Start: 05-10-2024 End: 10-07-2024 1,000 mcg, INTRAMUSCULAR, EVERY 1 MONTH, 5 doses, First dose on Tue05/10/24 at 1500, Last dose on Tue09/07/24 at 1500 Start: 03-14-2024 End: 02-13-2025 cyanocobalamin 1,000 mcg inj ection Start: 03-14-2024 End: 02-13-2025 1,000 mcg, INTRAMUSCULAR, EV SOBEIDA 4 WEEKS, 12 doses, First dose on Tue03/14/24 at 0700, Last dose on Tue01/16/25 at 0700 Start: 03-01-2024 End: 03-13-2024 take 1 tablet by mouth once daily cyanocobalamin (Vitamin B-12) 1000 MCG tablet Take 1 tablet (1,000 mcg) by mouth daily. 30 tablet 11 03/01/2024 Active Problems Active Problems Problem Classification Problem Date Documented Date Episodic/Chronic Abdominal pain (20 sources) Abdominal pain; Translations: [Epigastric pain] Onset: 10-14-19 21 10-13-2020 Episodic Adjustment disorders (3 sources) Stress; Translations: [Reaction to severe stress, unspecified] Onset: 10-31-1910-30-2024 Chronic Administrative/social admission (17 sources) Patient encounter status; Translations: [Persons encountering health services in other specified circumstances] Onset: 05-10-2002-10-2023 Episodic Anxiety disorders (20 sources) Posttraumatic stress disorder; Translations: [Post-traumatic stress disorder, unspecified] Onset: 10-18-19 Chronic Asthma (20 sources) Asthma; Translations: [Unspecified asthma, uncomplicated] Onset: 10-18-19 23 10-18-2022 Chronic Cardiac dysrhythmias (20 sources) Postural orthostatic tachycardia syndrome ; Translations: [POTS (postural orthostatic tachycardia syndrome)] Onset: 02-28-2003-13-2024 Chronic Cardiac dysrhythmias (20 sources) Palpitations; Translations: [Palpitations] Onset: 02-28-2002-11-2023 Episodic Esophageal disorders (20 sources) Gastro-esophageal reflux disease with esophagitis; Translations: [Gastroesophageal reflux disease with esophagitis without hemorrhage] Onset: 11-19-1911-18-2022 Chronic Esophageal disorders (2 sources) Esophageal disorders; Translations: [Gastroesophageal reflux disease with esophagitis without hemorrhage] Onset: 11-19-19 Genitourinary symptoms and ill-defined conditions (1 source) Chronic urinary bladder pain; Translations: [Chronic bladder pain] Chronic Genitourinary symptoms and ill-defined conditions (13 sources) Increased frequency of urination; Translations: [Frequency of micturition] Onset: 06-23-20 Episodic Headache; including migraine (5 sources) Migraine with aura; Translations: [Migraine with aura, not intractable, without status migrainosus] Onset: 03-29-2002-16-2024 Chronic Inflammatory diseases of female pelvic organs (1 source) Acute vaginitis; Translations: [Acute vaginitis] 08-25-2023 Episodic Malaise and fatigue (10 sources) Fatigue; Translations: [Other fatigue] Onset: 07-13-1902-11-2023 Episodic Menstrual disorders (10 sources) Irregular periods; Translations: [Irregular menstruation, unspecified] Onset: 11-22-19 Chronic Miscellaneous mental health disorders (5 sources) Psychosomatic factor in physical condition; Translations: [Psychological and behavioral factors associated with disorders or diseases classified elsewhere] Onset: 07-14-1907-02-2024 Chronic Mood disorders (1 source) Mood disorders; Translations: [Anxiety and depression] Onset: 03-29-20 Nutritional deficiencies (1 source) Vitamin D deficiency; Translations: [Vitamin D deficiency, unspecified] 07-26-2024 Chronic Nutritional deficiencies (10 sources) Cobalamin deficiency; Translations: [Deficiency of other specified B group vitamins] Onset: 08-07-1903-13-2024 Episodic Other aftercare (13 sources) Post-discharge follow-up; Translations: [Encounter for follow-up examination after completed treatment for conditions other than malignant neoplasm] Onset: 03-08-20 Resolved : 04-25-20 Episodic Other circulatory disease (2 sources) Raynaud's disease; Translations: [Raynaud's syndrome without gangrene] 09-03-2024 Chronic Other circulatory disease (1 source) Raynaud's syndrome without gangrene; Translations: [Raynaud's disease without gangrene] Onset: 09-14-19 Chronic Other connective tissue disease (1 source) Myofascial pain; Translations: [Myalgia, other site] 11-13-2023 Episodic Other connective tissue disease (5 sources) Neuralgia; Translations: [Neuralgia and neuritis, unspecified] 07-09-2024 Episodic Other connective tissue disease (1 source) Fibromyalgia; Translations: [Fibromyalgia] 07-13-2024 Episodic Other connective tissue disease (3 sources) Pain in left arm; Translations: [Pain in left arm] 12-06-2024 Episodic Other ear and sense organ disorders (2 sources) Bilateral tinnitus; Translations: [Tinnitus, bilateral] 09-05-2024 Episodic Other ear and sense organ disorders (1 source) Hearing symptoms; Translations: [Other abnormal auditory perceptions, left ear] 09-05-2024 Episodic Other ear and sense organ disorders (1 source) Impacted cerumen of bilateral ears; Translations: [Impacted cerumen, bilateral] 09-05-2024 Episodic Other ear and sense organ disorders (1 source) Ear pressure sensation; Translations: [Other specified disorders of left ear] 09-05-2024 Episodic Other endocrine disorders (20 sources) Polycystic ovary syndrome; Translations: [Polycystic ovarian syndrome] Onset: 10-19-19 Chronic Other endocrine disorders (1 source) Hyperandrogenization syndrome; Translations: [Other ovarian dysfunction] 07-18-2024 Chronic Other endocrine disorders (4 sources) Polycystic ovarian syndrome; Translations: [PCOS (polycystic ovarian syndrome)] Onset: 10-19-19 Chronic Other female genital disorders (2 sources) Vulvodynia; Translations: [Vulvodynia, unspecified] 08-11-2023 Chronic Other female genital disorders (5 sources) Abnormal uterine bleeding; Translations: [Abnormal uterine and vaginal bleeding, unspecified] 11-21-2024 Chronic Other female genital disorders (2 sources) Abnormal uterine and vaginal bleeding, unspecified; Translations: [Abnormal uterine bleeding (AUB)] Onset: 01-29-20 Chronic Other female genital disorders (1 source) Pelvic floor dysfunction; Translations: [Other specified conditions associated with female genital organs and menstrual cycle] 08-11-2023 Episodic Other female genital disorders (1 source) Vaginal discharge; Translations: [Other specified noninflammatory disorders of vagina] 10-07-2023 Episodic Other gastrointestinal disorders (2 sources) Irritable bowel syndrome; Translations: [Mixed irritable bowel syndrome] 11-06-2024 Chronic Other gastrointestinal disorders (2 sources) Malabsorption due to intolerance, not elsewhere classified; Translations: [Food intolerance] Onset: 04-27-20 Chronic Other gastrointestinal disorders (1 source) Mixed irritable bowel syndrome; Translations: [Irritable bowel syndrome with both constipation and diarrhea] Onset: 01-04-20 Chronic Other gastrointestinal disorders (3 sources) Esophageal dysphagia; Translations: [Other dysphagia] 02-11-2025 Episodic Other gastrointestinal disorders (1 source) Alteration in bowel elimination; Translations: [Change in bowel habits] Episodic Other gastrointestinal disorders (1 source) Constipation; Translations: [Constipation, unspecified] 06-05-2024 Episodic Other gastrointestinal disorders (7 sources) Abdominal bloating; Translations: [Abdominal distension (gaseous)] 06-20-2024 Episodic Other gastrointestinal disorders (3 sources) Diarrhea; Translations: [Diarrhea, unspecified] 01-03-2025 Episodic Other infections; including parasitic (20 sources) Late effects of other and unspecified infectious and parasitic diseases; Translations: [COVID-19 long hauler] Onset: 07-23-1902-16-2024 Chronic Other infections; including parasitic (1 source) Personal history of other infectious and parasitic diseases; Translations: [Personal history of COVID-19] 10-30-2024 Episodic Other lower respiratory disease (3 sources) Dyspnea; Translations: [Shortness of breath] 07-09-2024 Episodic Other lower respiratory disease (6 sources) Dyspnea on exertion; Translations: [Other forms of dyspnea] 08-07-2024 Episodic Other lower respiratory disease (2 sources) Other forms of dyspnea; Translations: [DU (dyspnea on exertion)] Onset: 12-14-19 Episodic Other nervous system disorders (20 sources) Cognitive deficit in communication skills; Translations: [Cognitive communication deficit] Onset: 07-23-1907-23-2024 Chronic Other nervous system disorders (1 source) Cognitive communication deficit; Translations: [Cognitive communication deficit] Onset: 07-23-19 Chronic Other nervous system disorders (20 sources) Impaired cognition; Translations: [Other symptoms and signs involving cognitive functions and awareness] Onset: 07-23-1902-16-2024 Episodic Other nervous system disorders (2 sources) Burning sensation; Translations: [Other disturbances of skin sensation] 09-13-2024 Episodic Other nervous system disorders (3 sources) Paresthesia; Translations: [Paresthesia of skin] 12-06-2024 Episodic Other nervous system disorders (1 source) Skin sensation disturbance; Translations: [Other disturbances of skin sensation] 12-12-2024 Episodic Other nervous system disorders (2 sources) Other disturbances of skin sensation; Translations: [Burning sensation] Onset: 12-13-19 Episodic Other non-traumatic joint disorders (3 sources) Multiple joint pain; Translations: [Pain in unspecified joint] 07-13-2024 Episodic Other nutritional; endocrine; and metabolic disorders (1 source) Insulin resistance; Translations: [Insulin resistance] 03-14-2025 Chronic Other upper respiratory disease (20 sources) Allergic rhinitis due to pollen; Translations: [Allergic rhinitis due to pollen] Onset: 02-12-2002-11-2023 Chronic Other upper respiratory disease (20 sources) Chronic rhinitis; Translations: [Chronic rhinitis] Onset: 03-10-20 Resolved : 04-27-2003-10-2023 Chronic Other upper respiratory disease (20 sources) Allergic rhinitis due to house dust mite; Translations: [Other allergic rhinitis] Onset: 04-27-2004-27-2024 Chronic Other upper respiratory disease (20 sources) Allergic rhinitis due to animal hair and dander; Translations: [Allergic rhinitis due to animal (cat) (dog) hair and dander] Onset: 04-27-2004-27-2024 Chronic Other upper respiratory disease (20 sources) Allergic rhinitis caused by mold; Translations: [Other allergic rhinitis] Onset: 04-27-2004-27-2024 Chronic Other upper respiratory disease (1 source) Allergic rhinitis due to pollen; Translations: [Seasonal allergic rhinitis due to pollen] Onset: 10-03-19 Chronic Other upper respiratory disease (6 sources) Obstruction of larynx; Translations: [Other diseases of larynx] 04-27-2024 Episodic Other upper respiratory disease (1 source) Disorder of vocal cord; Translations: [Other diseases of vocal cords] 12-24-2024 Episodic Residual codes; unclassified (1 source) Insomnia; Translations: [Insomnia, unspecified] Episodic Residual codes; unclassified (1 source) Immunization status unknown; Translations: [Other specified health status] 02-16-2024 Episodic Residual codes; unclassified (2 sources) Flushing; Translations: [Flushing] 10-30-2024 Episodic Residual codes; unclassified (1 source) Foreign travel history finding; Translations: [Other specified health status] 12-31-2024 Episodic Residual codes; unclassified (1 source) Family history of diabetes mellitus; Translations: [Family history of diabetes mellitus] 03-14-2025 Episodic Residual codes; unclassified (1 source) Family history of atrial fibrillation; Translations: [Family history of ischemic heart disease and other diseases of the circulatory system] 03-14-2025 Episodic Residual codes; unclassified (1 source) Family history of diabetes mellitus; Translations: [Family history of diabetes mellitus] Onset: 03-14-20 Episodic Residual codes; unclassified (1 source) Family history of ischemic heart disease and other diseases of the circulatory system; Translations: [Family history of atrial fibrillation] Onset: 03-14-20 Episodic Residual codes; unclassified (1 source) Procedure needed; Translations: [Other specified health status] 03-26-2025 Episodic Residual codes; unclassified (2 sources) Other specified health status; Translations: [Need for home exercise program] Onset: 01-01-20 Episodic Spondylosis; intervertebral disc disorders; other back problems (1 source) Cervicalgia; Translations: [Neck pain] Onset: 04-24-20 Episodic Unclassified (3 sources) POTS (postural orthostatic tachycardia syndrome); Translations: [POTS (postural orthostatic tachycardia syndrome)] Onset: 03-13-20 Unclassified (1 source) Insulin resistance; Translations: [Insulin resistance] Onset: 03-14-20 25 Unclassified (2 sources) Post-acute sequelae of COVID-19 (PASC); Translations: [Post-acute sequelae of COVID-19 (PASC)] Onset: 07-23-19 25 Unclassified (1 source) Nurse Visit Onset: 06-05-20 24 Unclassified (1 source) Occipital pain; Translations: [Occipital pain] Onset: 04-24-20 Unclassified (1 source) Temporal pain; Translations: [Temporal pain] Onset: 04-24-20 25 Unclassified (1 source) Personal history of COVID-19; Translations: [Personal history of COVID-19] Onset: 10-31-19 Unclassified (1 source) PT Onset: 09-18-19 Unclassified (1 source) Vertigo of central origin; Translations: [Vertigo of central origin] Onset: 07-14-19 Unclassified (1 source) Headaches; Translations: [Headaches] Onset: 07-09-20 Urinary tract infections (20 sources) Chronic interstitial cystitis; Translations: [Interstitial cystitis (chronic) with hematuria] Onset: 03-29-2011-13-2023 Chronic Urinary tract infections (1 source) Urethritis; Translations: [Other urethritis] 11-13-2023 Episodic Past or Other Problems Problem Classification Problem Date Documented Da te Episodic/Chronic Acute and unspecified renal failure (20 sources) Acute renal failure syndrome; Translations: [Acute kidney failure, unspecified] Onset: 10-17-2022 Resolved: 10-18-2022 10-18-2022 Episodic Allergic reactions (20 sources) Allergic reaction; Translations: [Allergy, unspecified, initial encounter] Onset: 11-18-2022 Resolved: 12-24-2024 Episodic Conditions associated with dizziness or vertigo (20 sources) Dizziness; Translations: [Dizziness and giddiness] Onset: 03-10-2023 Resolved: 12-24-2024 02-11-2023 Episodic Headache; including migraine (8 sources) Headache disorder; 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), intractable] Onset: 04-28-2024 04-03-2024 Episodic Immunizations and screening for infectious disease (20 sources) Increased immunoglobulin; Translations: [Other specified abnormal immunological findings in serum] Onset: 11-18-2022 Episodic Inflammation; infection of eye (except that caused by tuberculosis or sexually transmitteddisease) (20 sources) Abscess of eyelid right eye, unspecified eyelid; Translations: [Allergic conjunctivitis of bilateral eyes] Onset: 03-10-2023 03-10-2023 Episodic Nausea and vomiting (20 sources) Nausea and vomiting; Translations: [Nausea with vomiting, unspecified] Onset: 10-13-2020 10-13-2020 Episodic Nonmalignant breast conditions (4 sources) Breast lump; Translations: [Unspecified lump in unspecified breast] Onset: 12-06-2024 12-07-2024 Episodic Nonspecific chest pain (14 sources) Chest pain; Translations: [Chest pain, unspecified] Onset: 02-28-2024 02-28-2024 Episodic Other aftercare (3 sources) Encounter for follow-up examination after completed treatment for conditions other than malignant neoplasm; Translations: [Encounter for follow-up examination after completed treatment for conditions other than malignant neoplasm] Onset: 03-08-2024 Episodic Other circulatory disease (12 sources) Postural orthostatic tachycardia syndrome ; Translations: [Postural orthostatic tachycardia syndrome (POTS)] Onset: 03-08-2024 Episodic Other connective tissue disease (3 sources) Bicipital tendinitis, left shoulder; Translations: [Bicipital tenosynovitis] Onset: 10-11-2024 10-11-2024 Episodic Other connective tissue disease (1 source) Pain in left arm; Translations: [Arm pain, left] Onset: 12-12-2024 Episodic Other connective tissue disease (1 source) Neuralgia and neuritis, unspecified; Translations: [Nerve pain] Onset: 07-26-2024 Episodic Other ear and sense organ disorders (1 source) Impacted cerumen, bilateral; Translations: [Bilateral impacted cerumen] Onset: 09-05-2024 Episodic Other ear and sense organ disorders (1 source) Other specified disorders of left ear; Translations: [Ear pressure, left] Onset: 09-05-2024 Episodic Other ear and sense organ disorders (1 source) Tinnitus, bilateral; Translations: [Tinnitus, bilateral] Onset: 09-05-2024 Episodic Other ear and sense organ disorders (1 source) Other abnormal auditory perceptions, left ear; Translations: [Auditory complaints of left ear] Onset: 09-05-2024 Episodic Other female genital disorders (3 sources) Polyp of corpus uteri; Translations: [Polyp of corpus uteri] Onset: 11-26-2024 11-26-2024 Episodic Other female genital disorders (1 source) Other specified noninflammatory disorders of vagina; Translations: [Vaginal discharge] Onset: 09-26-2024 Episodic Other gastrointestinal disorders (20 sources) Intolerance to food; Translations: [Malabsorption due to intolerance, not elsewhere classified] Onset: 04-27-2024 Resolved: 12-24-2024 04-27-2024 Chronic Other gastrointestinal disorders (20 sources) Dysphagia; Translations: [Dysphagia, unspecified] Onset: 11-08-2024 05-02-2024 Episodic Other gastrointestinal disorders (2 sources) Abdominal distension (gaseous); Translations: [Abdominal bloating] Onset: 06-28-2024 Episodic Other gastrointestinal disorders (1 source) Other dysphagia; Translations: [Esophageal dysphagia] Onset: 11-08-2024 Episodic Other gastrointestinal disorders (2 sources) Dysphagia, unspecified; Translations: [Dysphagia, unspecified type] Onset: 06-18-2024 Episodic Other gastrointestinal disorders (1 source) Diarrhea, unspecified; Translations: [Diarrhea, unspecified type] Onset: 01-03-2025 Episodic Other injuries and conditions due to external causes (20 sources) Systemic inflammatory response syndrome; Translations: [Systemic inflammatory response syndrome (SIRS) of non-infectious origin without acute organ dysfunction] Onset: 10-17-2022 Resolved: 12-24-2024 10-18-2022 Episodic Other lower respiratory disease (20 sources) Chronic cough; Translations: [Chronic cough] Onset: 04-27-2024 Resolved: 12-24-2024 04-27-2024 Episodic Other lower respiratory disease (2 sources) Shortness of breath; Translations: [Shortness of breath] Onset: 07-26-2024 Episodic Other nervous system disorders (1 source) Paresthesia of skin; Translations: [Paresthesias] Onset: 12-12-2024 Episodic Other nervous system disorders (1 source) Other symptoms and signs involving cognitive functions and awareness; Translations: [Brain fog] Onset: 11-02-2024 Episodic Other non-traumatic joint disorders (1 source) Pain in unspecified joint; Translations: [Pain in joint, multiple sites] Onset: 07-13-2024 Episodic Other screening for suspected conditions (not mental disorders or infectious disease) (20 sources) CT of chest abnormal; Translations: [Abnormal findings on diagnostic imaging of other specified body structures] Onset: 10-17-2022 Resolved: 12-24-2024 10-18-2022 Chronic Other screening for suspected conditions (not mental disorders or infectious disease) (10 sources) Cancer cervix screening status; Translations: [Encounter for screening for malignant neoplasm of cervix] Onset: 02-28-2024 08-11-2023 Episodic Other upper respiratory disease (1 source) Nasal congestion Onset: 01-20-2022 Resolved: 01-20-2022 Episodic Other upper respiratory disease (20 sources) Feeling of lump in throat; Translations: [Globus sensation] Onset: 04-27-2024 04-27-2024 Episodic Other upper respiratory disease (20 sources) Dysphonia; Translations: [Dysphonia] Onset: 04-27-2024 04-27-2024 Episodic Other upper respiratory disease (1 source) Other diseases of vocal cords; Translations: [Disorder of vocal cords] Onset: 12-24-2024 Episodic Other upper respiratory disease (1 source) Other diseases of larynx; Translations: [Inducible laryngeal obstruction (ILO)] Onset: 12-13-2024 Episodic Other upper respiratory infections (2 sources) Acute upper respiratory infection, unspecified; Translations: [Acute pharyngitis, unspecified] Onset: 01-20-2022 Resolved: 01-20-2022 Episodic Otitis media and related conditions (4 sources) Acute suppurative otitis media without spontaneous rupture of ear drum; Translations: [Acute suppurative otitis media without spontaneous rupture of ear drum, left ear] Onset: 01-17-2024 01-17-2024 Episodic Residual codes; unclassified (20 sources) Memory impairment; Translations: [Other amnesia] Onset: 07-23-2024 Episodic Residual codes; unclassified (2 sources) Flushing; Translations: [Flushing] Onset: 12-04-2024 Episodic Residual codes; unclassified (1 source) Other amnesia; Translations: [Memory change] Onset: 11-08-2024 Episodic Screening and history of mental health and substance abuse codes (1 source) Encounter for screening for depression; Translations: [Screening for depression] Onset: 10-11-2024 Episodic Suicide and intentional self-inflicted injury (1 source) Suicidal ideations; Translations: [Suicidal ideation] Onset: 10-01-2024 Episodic Syncope (20 sources) Syncope and collapse; Translations: [Syncope and collapse] Onset: 03-29-2024 02-10-2023 Episodic Results Test Name Value Interpretation Reference Range Facility XR ESOPHAGRAMon 04-15-2025 XR ESOPHAGRAM * * *Final Report* * * DATE OF EXAM: Apr 15 2025 9:59AM MDX 5378 - XR ESOPHAGRAM / PROCEDURE REASON: R13.19-Esophageal dysphagia * * * * Physician Interpretation * * * * ESOPHAGRAM CLINICAL INFORMATION: Dysphagia. TECHNIQUE: A biphasic examination of the esophagus was performed utilizing effervescent granules (E-Z-Gas II - 4 grams), high density barium, and low density barium. Contrast: ORAL: 300 ml ml of EZPAQUE ORAL: 50 ml ml of EZHD ORAL: 1 EZ DISK Fluoroscopy radiation summary: Fluoroscopy time: 6:36 (min:sec). Air kerma: 29.1 mGy. RESULT: Caliber: Normal. Stricture, Ring, or Web: None. Motility: No significant esophageal dysmotility. Hiatal Hernia: Absent. Gastroesophageal Reflux: Coughing and drinking water through straw were maneuvers that elicited gastroesophageal reflux. Gastroesophageal reflux went as far as the thoracic inlet. Gastric Cardia: Normal. Barium Tablet: Passed easily without reproducing symptoms. Other Findings: None. Staff Physician: Dr. Isaiah Denton performed the entire procedure. IMPRESSION: Elicited gastroesophageal reflux up to the thoracic inlet. Normal esophageal motility. Mental Health Aide: MARIA INES Transcribe Date/Time: Apr 15 2025 12:32P Dictated by : ISAIAH DENTON MD This examination was interpreted and the report reviewed and electronically signed by: ISAIAH DENTON MD on Apr 15 2025 7:48PM EST [id number] [facility] CNOVon 04-02-2025 CNOV Normal [facility] CNTHERAPYon 03-28-2025 CNTHERAPY OT/PT/Speech Visit (SPMBME) -------- AMIE BRAXTON ([id number]) 1995 F Date Time Provider Department 03/28/25 1:00 PM MAMIE STALLINGSE Date Time Provider Department [facility] 03/28/2025 1:00 PM [id number] STALLINGS [facility] Reason for Visit: Speech Instrumental Swallow Eval [3660] Speech Discharge [3488] Primary Visit Diagnosis:Esophageal dysphagia [R13.19] Allergies As of Date: 03/28/2025 Noted Allergy Reaction BEEF CONTAINING PRODUCTS 04/02/2016 5 - Intolerance Comments: migraines Migraines, upset stomach BEEF DERIVED (BOVINE) 04/02/2016 4 - Hives EGG DERIVED 04/02/2016 8 - GI Upset Comments: Vomiting even with ingredient of egg MILK CONTAINING PRODUCTS (DAIRY) 04/02/2016 5 - Intolerance 4 - Hives Comments: Vomiting. PINEAPPLE 08/24/2020 4 - Hives 7 - Swelling Comments: Hives, difficulty breathing SOY 08/24/2020 8 - GI Upset Comments: vomiting TREE NUTS 08/31/2020 14 - Other: See Comments Comments: Asthma flaring, difficulty breathing VANCOMYCIN ANALOGUES 09/06/2019 4 - Hives Date Reviewed: 03/26/2025 Reviewed by: Carole Wilson RN - Fully Assessed Prescriptions as of 03/28/2025 - tinidazole (TINDAMAX) 500 mg tablet Take 2,000 mg by mouth one time only. - levalbuterol tartrate HFA 45 mcg/actuation inhaler Inhale 2 puffs as instructed every 4 hours as needed for wheezing/shortness of breath. - amitriptyline (ELAVIL) 50 mg tablet Take 1 tablet by mouth daily at bedtime. - metFORMIN (GLUCOPHAGE) 500 mg tablet Take 1 tablet by mouth two times a day with meals. - hydrOXYzine HCl (ATARAX) 10 mg tablet TAKE 2 TABLETS BY MOUTH EVERY 6 HOURS NEEDED FOR ANXIETY. - metoprolol tartrate, short acting, (LOPRESSOR) 25 mg tablet Take 0.5 tablets by mouth two times a day. - omeprazole (PRILOSEC) 20 mg capsule Take 1 capsule by mouth two times a day. - budesonide-formoterol (SYMBICORT) 160-4.5 mcg/actuation inhaler Inhale 2 puffs as instructed two times a day. - Norethindrone, Contraceptive, 0.35 mg tablet Take 1 tablet by mouth once daily. - ivabradine (CORLANOR) 5 mg tablet Take 1.5 tab by mouth twice a day - sertraline (ZOLOFT) 25 mg tablet Take 0.5 tablets by mouth once daily. - albuterol HFA (PROVENTIL HFA, VENTOLIN HFA) 90 mcg/actuation inhaler Inhale 1-2 puffs as instructed every 6 hours as needed for wheezing/shortness of breath. Letter Text Normal [facility] XR MOD BARIUM SWALLOW W SPEE Tamica 03-28-2025 XR MOD BARIUM SWALLOW W SPEECH * * *Final Report* * * DATE OF EXAM: Mar 28 2025 1:59PM MDX 5377 - XR MOD BARIUM SWALLOW W SPEECH / PROCEDURE REASON: multiple diagnoses * * * * Physician Interpretation * * * * CLINICAL: Esophageal spasm, GE reflux, no esophagitis FINDINGS/ IMPRESSION: Modified barium swallow was performed in conjunction with Speech Pathology. Patient was given various barium substrates. Please refer to speech pathology final report. Fluoroscopic Radiation Summary: Plane A, Air Kerma: 50.0 mGy Dose Area Product (DAP): Fluoro time: 2:36 min:sec Mental Health Aide: MARIA INES Transcribe Date/Time: Apr 04 2025 9:04A Dictated by : JODI BILLS MD This examination was interpreted and the report reviewed and electronically signed by: JODI BILLS MD on Apr 04 2025 9:07AM EST [id number] [facility] CNOVon 03-26-2025 CNOV Normal [facility] EXERCISE STRESS ECG (WITHOUT IMAGING)on 03-26-2025 EXERCISE STRESS ECG (WITHOUT IMAGING) Normal [facility] CNOVon 03-19-2025 CNOV Normal [facility] CNTHERAPYon 03-19-2025 CNTHERAPY Normal [facility] ECG COMPLETEon 03-19-2025 ECG COMPLETE Normal [facility] Office Visit Reporton 2024 Office Visit Report [facility] [address] [place] [address] OFFICE VISIT Date of Service: 03/18/25 MR#: [id number] Acct: [id number] Patient: AMIE BRAXTON Rep #: [id number] : 1995 Provider: Liz lopez Age/Sex: 29/F Location: [facility] Status: Signed Intake Intake Visit Reasons: PILL CAM Allergies Beef Containing Products Allergy (Unknown, Verified 02/26/25 09:27) migraines pineapple Allergy (Unknown, Verified 02/26/25 09:27) Hives Office Procedures Procedure Administration Route: PO Administration Location: [facility] Dispensed Units: 1 Capsule Lot Number: [id number] Expiration Date: 01/17/26 Capsule ID Number: [id number] Consent Form Signed: Yes Reason for Pill Capsule Endoscopy: Abd pain, bloating Comments: Pt tolerated procedure well, All questions answered Pill Cam Billing-In Office: [id number] GI TRACT CAPSULE ENDOSCOPY 03/18/25 1230 Date Alex Friend DO Reddy Signature: Date (if applicable) CC: Normal [facility] CNOVon 03-14-2025 CNOV [facility] [id number] 03-05-2025 [id number] Normal [facility] CNTHERAPYon 03-05-2025 CNTHERAPY Normal [facility] THERAPY NTon 03-05-2025 THERAPY NT Normal [facility] Gastroenterology Visit Repor ton 02-26-2025 Gastroenterology Visit Report [facility] [address] [place] [address] OFFICE VISIT Date of Service: 02/26/25 MR#: [id number] Acct: [id number] Name: AMIE BRAXTON Rep #: [id number] : 1995 Provider: Alex De Luna DO Age/Sex: 29/F Location: [facility] Status: Signed Intake Intake Visit Reasons: ABDOMINAL DISCOMFORT CONSTIPATION DIARRHEA Allergies Beef Containing Products Allergy (Unknown, Verified 02/26/25 09:27) migraines pineapple Allergy (Unknown, Verified 02/26/25 09:27) Hives Medications ???Medication ???Instructions ???Recorded ???Confirmed ???Type amitriptyline 25 mg tablet 25 mg PO QDAY 02/26/25 02/26/25 Hi story hydroxyzine HCl 10 mg tablet 10 mg PO QHS PRN 02/26/25 02/26/25 History ivabradine 5 mg tablet 2.5 mg PO BID 02/26/25 02/26/25 Hi story metoprolol succinate 25 mg 12.5 mg PO BID 02/26/25 02/26/25 H istory tablet,extended release 24 hr sertraline 25 mg tablet (Zoloft) 12.5 mg PO QDAY 02/26/25 02/26/25 History PFSH Medical History (Updated 02/26/25 @ 15:[address] Johnson FriendDO) Raynauds disease POTS (postural orthostatic tachycardia syndrome) Polycystic ovaries Asthma Seasonal allergies Family History (Updated 02/26/25 @ 14:37 by Liz Burns) Grandfather Cancer lung cancer Alcoholism Grandmother Diabetes Heart disease Mother Hypertension Father GERD (gastroesophageal reflux disease) Social History (Updated 02/26/25 @ 14:33 by Liz Burns) Smoking Status: Never smoker alcohol intake: never substance use type: does not use what type of physical activity do you participate in: walking HPI HPI Details: AMIE BRAXTON, is a 29 F who presents to the office today for initial consult. *BGI established 02.26.25 pt reports excessive bloating and abdominal pain that began last February. Pt reports it usually occurs after eating, but has noticed recently she is still bloating and having discomfort even when she hasn't eaten. Pt reports alternating bowel movements. Pt notes HB but only in her lower esophagus. ROS Const Constitutional: Positive for fatigue, headache(s), weakness and weight change (weight gain); No fever(s) ENT ENT: Positive for headache(s) and difficulty swallowing Gastro GI: Positive for abdominal pain, bloating, change in bowel habits, constipation, diarrhea, heartburn, difficulty swallowing, excessive flatus and nausea/dyspepsia; No belching, change in stool character, coffee ground emesis, cramping, feeling full early, incontinent of stools, Vomiting blood/hematemesis, Blood in stool, loose stools, Black,tarry stools, pain with swallowing, vomiting or other Musc Musculoskeletal: Positive for joint pain, muscle weakness, numbness and tingling Skin Skin: Positive for rash; No yellowing of the eye or itchy eyes Neuro Neurology: Positive for weakness, headache(s), numbness, tingling and other (vertigo) Psych Psychiatric: Positive for anxiety, Positive for depression and Positive for inattentiveness Endo Endocrine: Positive for fatigue and weight change (weight gain) Aller/Imm Allergy/Immunologic: No itchy eyes Oliverio/Lymp Hematologic/Lymphatic: Positive for easy bruising; No easy bleeding Exam Const General: cooperative, healthy appearing, comfortable, no acute distress, well developed and well groomed Nutritional Appearance: well nourished Orientation: oriented x3 Eyes Conjunctivae: conjunctivae normal Sclera: sclerae normal Resp Effort Inspection: normal respiratory effort Auscultation: Bilateral: Clear to Auscultation Cardio Rate: tachycardic GI Auscultation: normal bowel sounds Palpation: no hepatosplenomegaly Assessment and Plan Assessment and Plan (1) Bloating: Status: Acute (2) Abdominal pain: Status: Acute Plan: 29-year-old female with a known history of supraventricular tachycardia who presents with chief complaints of bloating, early satiety, nausea, and abdominal pain. ???Patient reports worsening bloating, especially after meals, for the past several months. This all started following a trip to [place] in 2019. She experiences early satiety, feeling full after consuming small amounts of food. Nausea is frequent, sometimes leading to vomiting. Abdominal pain is described as a dull ache, intermittently present throughout the day, and worsened with eating. Patient denies recent travel, fever, diarrhea, or constipation. ???Supraventricular tachycardia diagnosed at 27 years old, with occasional episodes managed with Ivabradine???and metoprolol. No other significant medical history except for diffuse esophageal spasm diagnosed with manometry.. Patient denies smoking, recreational drug use, and reports occasional alcohol consumption. Family History is negative for any heart or GI issues. * Review of Systems (ROS): (more content not included)... Normal [facility] [id number] 02-13-2025 [id number] Normal [facility] CNTHERAPYon 02-13-2025 CNTHERAPY Normal [facility] CNPNon 02-12-2025 CNPN Normal [facility] CNPNon 02-11-2025 CNPN Normal [facility] GLUCOSE 1 HOURon 02-05-2025 Glucose 1 Hr post Unsp challenge [Mass/Vol] 151 mg/dL Normal See Comment [facility] Comment on above: Order Comment: Nataly saenz Type: BLOOD SPECIMENOrdering Facility: [facility] Address: [address] [place], [place] [id number] Result Comment: A di agnostic cutoff for this time point is not established, and should be clinically determined.[place] Diabetes Association guidelines state a diabetes mellitus diagnosis is preliminarily made when the fasting plasma glucose meets or exceeds 126 mg/dL and/or the 2 hr glucose tolerance meets or exceeds 200 mg/dL. In the absence of unequivocal hyperglycemia, results should be confirmed with repeat testing. Patients are at increased risk for diabetes mellitus (prediabetes) when the fasting glucose is 100 to 125 mg/dL or the 2 hr glucose tolerance result is 140 to 199 mg/dL. Performed By: #### G LU60 ####[facility] LABCLIA [id number] [place] [address] [place] GLUCOSE, 0 HOURon 02-05-2025 Glucose baseline [Mass/Vol] 73 mg/dL Low 74-99 [facility] Comment on above: Order Comment: Nataly saenz Type: BLOOD SPECIMENOrdering Facility: [facility] Address: [address] [place] [address] Result Comment: [place] Diabetes Association guidelines state a diabetes mellitus diagnosis is preliminarily made when the fasting plasma glucose meets or exceeds 126 mg/dL and/or the 2 hr glucose tolerance meets or exceeds 200 mg/dL. In the absence of unequivocal hyperglycemia, results should be confirmed with repeat testing. Patients are at increased risk for diabetes mellitus (prediabetes) when the fasting glucose is 100 to 125 mg/dL or the 2 hr glucose tolerance result is 140 to 199 mg/dL. Performed By: #### G T0 ####[facility] LABCLIA [id number] [place] [id number] [place] GLUCOSE, 2 HOURon 02-05-2025 Glucose 2 Hr post Unsp challenge [Mass/Vol] 165 mg/dL High 74-139 [facility] Comment on above: Order Comment: Nataly saenz Type: BLOOD SPECIMENOrdering Facility: [facility] Address: [address] [place] [address] Result Comment: [place] Diabetes Association guidelines state a diabetes mellitus diagnosis is preliminarily made when the fasting plasma glucose meets or exceeds 126 mg/dL and/or the 2 hr glucose tolerance meets or exceeds 200 mg/dL. In the absence of unequivocal hyperglycemia, results should be confirmed with repeat testing. Patients are at increased risk for diabetes mellitus (prediabetes) when the fasting glucose is 100 to 125 mg/dL or the 2 hr glucose tolerance result is 140 to 199 mg/dL. Performed By: #### G T2 ####[facility] LABCLIA [id number] [place] [id number] [place] Glucose 2 Hr post Unsp challenge [Mass/Vol] 73 mg/dL Low 74-139 [facility] Comment on above: Order Comment: Nataly saenz Type: BLOOD SPECIMENOrdering Facility: [facility] Address: [address] [place] [address] Result Comment: [place] Diabetes Association guidelines state a diabetes mellitus diagnosis is preliminarily made when the fasting plasma glucose meets or exceeds 126 mg/dL and/or the 2 hr glucose tolerance meets or exceeds 200 mg/dL. In the absence of unequivocal hyperglycemia, results should be confirmed with repeat testing. Patients are at increased risk for diabetes mellitus (prediabetes) when the fasting glucose is 100 to 125 mg/dL or the 2 hr glucose tolerance result is 140 to 199 mg/dL. Performed By: #### G T2 ####[facility] LABCLIA [id number] [place] [address] [place] HCG QUALITATIVEon 02-05-2025 HCG, QUALITATIVE Negative Normal Negative [facility] Comment on above: Order Comment: Speci men Type: BLOOD SPECIMENOrdering Facility: [facility] Address: [address] [place] [address] Performed By: #### H ####[facility] LABCLIA [id number] [place] [address] [place] CBC panel Auto (Bld)on 01-28 Erythrocyte distribution width (RBC) [Ratio] 12.9 % Normal 11.5-15.0 [facility] Comment on above: Order Comment: Speci men Type: BLOOD SPECIMENOrdering Facility: [facility] Address: [address] [place] [address] Performed By: #### 5 8410-2 ####MARIA ESTHER COUNT INCLUDES THE [facility] LABCLIA [id number] [place] [address] [place] Hematocrit (Bld) [Volume fraction] 41.3 % Normal 36.0-46.0 [facility] Comment on above: Order Comment: Speci men Type: BLOOD SPECIMENOrdering Facility: [facility] Address: [address] [place] [address] Performed By: #### 5 8410-2 ####MARIA ESTHER COUNT INCLUDES THE [facility] LABCLIA [id number] [place] [id number] [place] Hemoglobin (Bld) [Mass/Vol] 13.6 g/dL Normal 11.5-15.5 [facility] Comment on above: Order Comment: Speci men Type: BLOOD SPECIMENOrdering Facility: [facility] Address: [address] [place] [address] Performed By: #### 5 8410-2 ####MARIA ESTHER COUNT INCLUDES THE [facility] LABCLIA [id number] [place] [id number] [place] MCH (RBC) [Entitic mass] 29.0 pg Normal 26.0-34.0 [facility] Comment on above: Order Comment: Speci men Type: BLOOD SPECIMENOrdering Facility: [facility] Address: [address] [place] [address] Performed By: #### 5 8410-2 ####MARIA ESTHER COUNT INCLUDES THE [facility] LABCLIA [id number] [address] MCHC (RBC) [Mass/Vol] 32.9 g/dL Normal 30.5-36.0 [facility] Comment on above: Order Comment: Speci men Type: BLOOD SPECIMENOrdering Facility: [facility] Address: [address] [place] [address] Performed By: #### 5 8410-2 ####MARIA ESTHER COUNT INCLUDES THE [facility] LABCLIA [id number] [address] [place] [address] [place] MCV (RBC) [Entitic vol] 88.1 fL Normal 80.0-100.0 [facility] Comment on above: Order Comment: Speci men Type: BLOOD SPECIMENOrdering Facility: [facility] Address: [address] [place] [address] Performed By: #### 5 8410-2 ####MARIA ESTHER COUNT INCLUDES THE [facility] LABIA [id number] [address] [place] [address] STATES [facility] Nucleated RBC (Bld) [#/Vol] 10*3/uL Normal <0.01 [facility] Comment on above: Order Comment: Speci men Type: BLOOD SPECIMENOrdering Facility: [facility] Address: [address] [place] [address] Performed By: #### 5 8410-2 ####KYLERJALEN COUNT INCLUDES THE [facility] LABCLIA [id number] [address] Platelet mean volume (Bld) [Entitic vol] 9.9 fL Normal 9.0-12.7 [facility] Comment on above: Order Comment: Speci men Type: BLOOD SPECIMENOrdering Facility: [facility] Address: [address] [place] [address] Performed By: #### 5 8410-2 ####KYLERJALEN COUNT INCLUDES THE [facility] LABCLIA [id number] [place] [address] [place] Platelets (Bld) [#/Vol] 263 10*3/uL Normal 150-400 [facility] Comment on above: Order Comment: Speci men Type: BLOOD SPECIMENOrdering Facility: [facility] Address: [address] [place] [address] Performed By: #### 5 8410-2 ####MARIA ESTHER COUNT INCLUDES THE [facility] LABCLIA [id number] [place] [id number] [place] RBC (Bld) [#/Vol] 4.69 10*6/uL Normal 3.90-5.20 [facility] Comment on above: Order Comment: Speci men Type: BLOOD SPECIMENOrdering Facility: [facility] Address: [address] [place] [address] Performed By: #### 5 8410-2 ####MARIA ESTHER COUNT INCLUDES THE [facility] LABCLIA [id number] [address] [address] STATES [facility] WBC (Bld) [#/Vol] 4.38 10*3/uL Normal 3.70-11.00 [facility] Comment on above: Order Comment: Speci men Type: BLOOD SPECIMENOrdering Facility: [facility] Address: [address] [place] [address] Performed By: #### 5 8410-2 ####KYLERJALEN COUNT INCLUDES THE [facility] LABCLIA [id number] [place] [id number] [facility] [place] Comprehensive metabolic 2000 panelon 01-28-2025 Albumin [Mass/Vol] 4.5 g/dL Normal 3.9-4.9 [facility] Comment on above: Order Comment: Speci men Type: BLOOD SPECIMENOrdering Facility: [facility] Address: [address] [place] [address] Performed By: #### 1 9123-9, 01738-2 ####STRONGSJALEN COUNT INCLUDES THE [facility] LABCLIA [id number] [place] [id number] [place] ALP [Catalytic activity/Vol] 67 U/L Normal 34-123 [facility] Comment on above: Order Comment: Speci men Type: BLOOD SPECIMENOrdering Facility: [facility] Address: [address] [place] [address] Performed By: #### 1 23-9, ####MARIA ESTHER COUNT INCLUDES THE [facility] LABCLIA [id number] [address] ALT [Catalytic activity/Vol] 15 U/L Normal 7-38 [facility] Comment on above: Order Comment: Speci men Type: BLOOD SPECIMENOrdering Facility: [facility] Address: [address] [place] [address] Performed By: #### 1 239, ####MARIA ESTHER COUNT INCLUDES THE [facility] LABCLIA [id number] [place] [address] [place] Anion gap [Moles/Vol] 10 mmol/L Normal 8-15 [facility] Comment on above: Order Comment: Speci men Type: BLOOD SPECIMENOrdering Facility: [facility] Address: [address] [place] [address] Performed By: #### 1 239, 04422-7 ####MARIA ESTHER COUNT INCLUDES THE [facility] LABCLIA [id number] [place] [address] [place] [facility] AST [Catalytic activity/Vol] 15 U/L Normal 13-35 [facility] Comment on above: Order Comment: Speci men Type: BLOOD SPECIMENOrdering Facility: [facility] Address: [address] [place] [address] Performed By: #### 1 23-9, 50480-5 ####MARIA ESTHER COUNT INCLUDES THE [facility] LABCLIA [id number] [place] [id number] [place] Bilirubin [Mass/Vol] 0.3 mg/dL Normal 0.2-1.[address] [facility] Comment on above: Order Comment: Speci men Type: BLOOD SPECIMENOrdering Facility: [facility] Address: [address] [place] [address] Performed By: #### 1 23-9, 01823-4 ####MARIA ESTHER COUNT INCLUDES THE [facility] LABCLIA [id number] [place] [id number] [place] Calcium [Mass/Vol] 8.9 mg/dL Normal 8.5-10.2 [facility] Comment on above: Order Comment: Speci men Type: BLOOD SPECIMENOrdering Facility: [facility] Address: [address] [place] [address] Performed By: #### 1 9123-9, 86385-3 ####KYLERJALEN COUNT INCLUDES THE [facility] LABCLIA [id number] [place] [address] [place] Chloride [Moles/Vol] 99 mmol/L Normal 98-[address] [facility] Comment on above: Order Comment: Speci men Type: BLOOD SPECIMENOrdering Facility: [facility] Address: [address] [place] [address] Performed By: #### 1 9123-9, 15428-3 ####MARIA ESTHER COUNT INCLUDES THE [facility] LABCLIA [id number] [place] [address] [place] CO2 [Moles/Vol] 25 mmol/L Normal 22-30 [facility] Comment on above: Order Comment: Speci men Type: BLOOD SPECIMENOrdering Facility: [facility] Address: [address] [place] [address] Performed By: #### 1 9123-9, 69116-5 ####ANNE-MARIEKORINA COUNT INCLUDES THE [facility] LABCLIA [id number] [place] [id number] [place] Creatinine [Mass/Vol] 0.76 mg/dL Normal 0.58-0.96 [facility] Comment on above: Order Comment: Speci men Type: BLOOD SPECIMENOrdering Facility: [facility] Address: [address] [place] [address] Performed By: #### 1 9123-9, 21298-4 ####ANNE-MARIEKORINA COUNT INCLUDES THE [facility] LABCLIA [id number] [place] [id number] [place] eGFRcr SerPlBld CKD-EPI 2020 110 mL/min/1.73m??? Normal >=60 [facility] Comment on above: Order Comment: Nataly saenz Type: BLOOD SPECIMENOrdering Facility: [facility] Address: [address] [place] [address] Result Comment: Sveta mated Glomerular Filtration Rate (eGFR) is calculated using the 2020 CKD-EPI creatinine equation. This equation utilizes serum creatinine, sex, and age as parameters. The creatinine assay has traceable calibration to isotope dilution-mass spectrometry. Refer to KDIGO guidelines for clinical interpretation. In patients with unstable renal function, e.g. those with acute kidney injury, the eGFR may not accurately reflect actual GFR. Performed By: #### 1 9123-9, 13764-1 ####MARIA ESTHER COUNT INCLUDES THE [facility] LABIA [id number] [place] [address] [place] Glucose [Mass/Vol] 78 mg/dL Normal 74-99 [facility] Comment on above: Order Comment: Nataly saenz Type: BLOOD SPECIMENOrdering Facility: [facility] Address: [address] [place] [address] Result Comment: The [place] Diabetes Association (ADA) provides guidance for cutoff values for fasting glucose and random glucose. The ADA defines fasting as no caloric intake for at least 8 hours. Fasting plasma glucose results between 100 to 125 mg/dL indicate increased risk for diabetes (prediabetes).Fasting plasma glucose results greater than or equal to 126 mg/dL meet the criteria for diagnosis of diabetes. In the absence of unequivocal hyperglycemia, results should be confirmed by repeat testing. In a patient with classic symptoms of hyperglycemia or hyperglycemic crisis, random plasma glucose results greater than or equal to 200 mg/dL meet the criteria for diagnosis of diabetes.Reference: Standards of Medical Care in Diabetes 2016, [place] Diabetes Association. Diabetes Care. 2016.39(Suppl 1). Performed By: #### 1 9123-9, 41198-4 ####MARIA ESTHER COUNT INCLUDES THE [facility] LABIA [id number] [place] [id number] [place] Potassium [Moles/Vol] 3.9 mmol/L Normal 3.7-5.1 [facility] Comment on above: Order Comment: Nataly saenz Type: BLOOD SPECIMENOrdering Facility: [facility] Address: [address] [place] [address] Performed By: #### 1 9123-9, 67343-0 ####MARIA ESTHER COUNT INCLUDES THE [facility] LABCLIA [id number] [place] [address] [place] Protein [Mass/Vol] 6.5 g/dL Normal 6.3-8.0 [facility] Comment on above: Order Comment: Speci men Type: BLOOD SPECIMENOrdering Facility: [facility] Address: [address] [place] [address] Performed By: #### 1 9123-9, 99490-0 ####MARIA ESTHER COUNT INCLUDES THE [facility] LABCLIA [id number] [place] [address] [place] Sodium [Moles/Vol] 134 mmol/L Low 136-144 [facility] Comment on above: Order Comment: Speci men Type: BLOOD SPECIMENOrdering Facility: [facility] Address: [address] [place] [address] Performed By: #### 1 9123-9, 58289-0 ####MARIA ESTHER COUNT INCLUDES THE [facility] LABCLIA [id number] [place] [address] [place] Urea nitrogen [Mass/Vol] 10 mg/dL Normal 7-21 [facility] Comment on above: Order Comment: Speci men Type: BLOOD SPECIMENOrdering Facility: [facility] Address: [address] [place] [address] Performed By: #### 1 9123-9, 01416-4 ####MARIA ESTHER COUNT INCLUDES THE [facility] LABCLIA [id number] [place] [address] [place] Ferritin SerPl-mCncon 2024 Ferritin [Mass/Vol] 27.8 ng/mL Normal 14.7-205.1 [facility] Comment on above: Order Comment: Speci men Type: BLOOD SPECIMENOrdering Facility: [facility] Address: [address] [place] [address] Performed By: #### 5 0190-8, 2276-4, 2842-3 ####[facility] LABCLIA [id number] [address] [address] [place] Folate SerPl-mCncon 01-29-20 Folate [Mass/Vol] 6.7 ng/mL Normal >4.7 [facility] Comment on above: Order Comment: Speci men Type: BLOOD SPECIMENOrdering Facility: [facility] Address: [address] [place] [address] Performed By: #### 2 132-9, 2284-8 ####[facility] LABCLIA [id number] [address] [address] [place] Iron and Iron binding capaci ty panelon 01-28-2025 Iron [Mass/Vol] 65 ug/dL Normal 41-186 [facility] Comment on above: Order Comment: Speci men Type: BLOOD SPECIMENOrdering Facility: [facility] Address: [address] [place] [address] Performed By: #### 5 0190-8, 2276-4, 2842-3 ####[facility] LABIA [id number] [address] [place] Iron binding capacity [Mass/Vol] 383 ug/dL Normal 232-386 [facility] Comment on above: Order Comment: Speci men Type: BLOOD SPECIMENOrdering Facility: [facility] Address: [address] [place] [address] Performed By: #### 5 0190-8, 6-4, 2842-3 ####[facility] LABIA [id number] [place] [id number] [place] Iron/TIBC [Molar ratio] 17.0 % Normal 15.0-57.0 [facility] Comment on above: Order Comment: Speci men Type: BLOOD SPECIMENOrdering Facility: [facility] Address: [address] [place] [address] Performed By: #### 5 0190-8, 2275-4, 2842-3 ####[facility] LABCLIA [id number] [place] [id number] [place] Magnesium SerPl-mCncon 01-28 Magnesium [Mass/Vol] 2.0 mg/dL Normal 1.7-2.[address] [facility] Comment on above: Order Comment: Speci men Type: BLOOD SPECIMENOrdering Facility: [facility] Address: [address] [place] [address] Performed By: #### 1 9123-9, 83638-0 ####[facility] LABCLIA [id number] [place] [address] [place] Prolactin SerPl-mCncon 01-28 Prolactin [Mass/Vol] 23.8 ng/mL Normal 4.4-33.[address] [facility] Comment on above: Order Comment: Speci men Type: BLOOD SPECIMENOrdering Facility: [facility] Address: [address] [place] [address] Result Comment: Prol actin test is performed using the [employer] Electrochemiluminescence Immunoassay method. Results obtained with different methods or kits cannot be used interchangeably. Performed By: #### 5 0190-8, 2276-4, 2842-3 ####[facility] LABCLIA [id number] [place] [address] [place] Vit B12 SerPl-ncon 025 Cobalamin (Vitamin B12) [Mass/Vol] 580 pg/mL Normal 232-1245 [facility] Comment on above: Order Comment: Speci men Type: BLOOD SPECIMENOrdering Facility: [facility] Address: [address] [place] [address] Performed By: #### 2 132-9, 2284-8 ####[facility] LABIA [id number] [place] [id number] [place] JENIFER US BREAST LTD LTon 01-22 JENIF[employer] US BREAST LTD LT Normal [facility] US Breast - left limitedon 0 01-22-2025 IMPRESSION: There is no suspicious imaging finding to correspond with the area of focal pain and palpable concern in the upper inner quadrant nor subareolar tissue of the left breast. Clinical follow-up recommended because the patient has symptoms with no imaging correlate. Otherwise annual screening mammograms should start at age 40. There is no sonographic evidence of malignancy in the imaged areas. BI-RADS Category 1: Negative Interpreting Radiologist: Humberto Floyd M.D. Electronically signed on: 01/22/2025 Mental Health Aide: INDY Transcribe Date/Time: Jan 22 2025 1:12P Dictated by : HUMBERTO FLOYD MD This examination was interpreted and the report reviewed and electronically signed by: HUMBERTO FLOYD MD on Jan 22 2025 1:40PM [facility] [employer] * * *Final Report* * * DATE OF EXAM: Jan 22 2025 1:26PM [employer]2 [employer]593 [employer] BREAST [employer] LT / PROCEDURE REASON: Breast mass in female * * * * Physician Interpretation * * * * [place] [address] #[id number] - [facility] BREAST [employer] LT HISTORY: 29 year-old patient presents for diagnostic evaluation of pain and a palpable abnormality in the left breast. Patient states no personal history of breast cancer. COMPARISON STUDIES: This is a baseline study. ULTRASOUND TECHNIQUE: Targeted ultrasound of the indicated area was performed. Cyr scale images were saved. ULTRASOUND FINDINGS: There are no suspicious sonographic findings to correspond with the area of focal pain and palpable concern in the upper inner quadrant of the left breast. There are no suspicious sonographic findings to correspond with the focal pain in the subareolar region of the left breast. [facility], [facility] - 01/22/2025 * * *Final Report* * * DATE OF EXAM: Jan 22 2025 1:26PM [employer] LT / PROCEDURE REASON: Breast mass in female * * * * Physician Interpretation * * * * [place] [address] #[id number] - [facility] US BREAST LTD LT HISTORY: 29 year-old patient presents for diagnostic evaluation of pain and a palpable abnormality in the left breast. Patient states no personal history of breast cancer. COMPARISON STUDIES: This is a baseline study. ULTRASOUND TECHNIQUE: Targeted ultrasound of the indicated area was performed. Cyr scale images were saved. ULTRASOUND FINDINGS: There are no suspicious sonographic findings to correspond with the area of focal pain and palpable concern in the upper inner quadrant of the left breast. There are no suspicious sonographic findings to correspond with the focal pain in the subareolar region of the left breast. IMPRESSION IMPRESSION: There is no suspicious imaging finding to correspond with the area of focal pain and palpable concern in the upper inner quadrant nor subareolar tissue of the left breast. Clinical follow-up recommended because the patient has symptoms with no imaging correlate. Otherwise annual screening mammograms should start at age 40. There is no sonographic evidence of malignancy in the imaged areas. BI-RADS Category 1: Negative Interpreting Radiologist: Humberto Floyd M.D. Electronically signed on: 01/22/2025 Mental Health Aide: INDY Transcribe Date/Time: Jan 22 2025 1:12P Dictated by : HUMBERTO FLOYD MD This examination was interpreted and the report reviewed and electronically signed by: HUMBERTO FLOYD MD on Jan 22 2025 1:40PM EST [facility] Study observation (narrative) [facility] US Breast - left limitedOrde red By: Cc Provider on 01-22-2025 [facility] CNPNon 01-16-2025 CNPN Normal [facility] CNTHERAPYon 01-15-2025 CNTHERAPY Normal [facility] THERAPY NTon 01-15-2025 THERAPY NT Normal [facility] CNPNon 01-07-2025 CNPN Normal [facility] CNTHERAPYon 01-04-2025 CNTHERAPY Normal [facility] CELIAC SCREENon 01-03-2025 GLIAD DEAMIDATED IGA QUAL Negative Normal Negative, Test not Indicated [facility] Comment on above: Order Comment: Speci men Type: BLOOD SPECIMENOrdering Facility: [facility] Address: [address] [place] [address] Result Comment: This is used as an aid in diagnosis of celiac disease. Clinical correlation is required.The following results were obtained with an [employer] QUANTA Lite Gliadin IgA CYNDEE Gliadin. Gliadin IgA values obtained with different manufacturers' assay methods may not be used interchangeably. The magnitude of the reported IgA levels cannot be correlated to an endpoint titer. Performed By: #### L [id number] ####[facility] LABCLIA [id number] [address] [place] Gliadin peptide IgA Qn (S) 3 Units Normal <20 [facility] Comment on above: Order Comment: Speci men Type: BLOOD SPECIMENOrdering Facility: [facility] Address: [address] [place] [address] Performed By: #### L [id number] ####[facility] LABCLIA [id number] [address] [place] INTERPRETATION No serological evide nce of celiac disease, however, if celiac disease is clinically suspected and patient is not on gluten-free diet, histological diagnosis may be considered. HLA testing may help with risk assessment. Normal [facility] Comment on above: Order Comment: Nataly saenz Type: BLOOD SPECIMENOrdering Facility: [facility] Address: [address] [place] [address] Performed By: #### L [id number] ####[facility] LABCLIA [id number] [address] TRANSGLUTAMINASE IGA ABS INTERPRETATION Negative Normal Negative [facility] Comment on above: Order Comment: Nataly saenz Type: BLOOD SPECIMENOrdering Facility: [facility] Address: [address] [place] [address] Result Comment: The following results were obtained with [employer] QU[employer] Lite R h-tTG IgA CYNDEE.???R h-tTG IgA values obtained with different manufacturers' assay methods may not be used interchangeably. The magnitude of the reported IgA levels cannot be corelated to an endpoint???concentration.This is used as an aid in diagnosis of celiac disease. Clinical correlation is required. Performed By: #### L [id number] ####[facility] LABCLIA [id number] [place] [address] [place] tTG IgA Qn (S) <2 Normal <4 [facility] Comment on above: Order Comment: Speci men Type: BLOOD SPECIMENOrdering Facility: [facility] Address: [address] [place] [address] Performed By: #### L [id number] ####[facility] LABIA [id number] [place] [address] [place] CNOVon 01-03-2025 CNOV Normal [facility] HISTORY PHYSICALon HISTORY PHYSICAL Normal [facility] IgA SerPl-mCncon 01-03-2025 IgA [Mass/Vol] 102 mg/dL Normal 70-400 [facility] Comment on above: Order Comment: Speci men Type: BLOOD SPECIMENOrdering Facility: [facility] Address: [address] [place] [address] Performed By: #### 2 458-8 ####[facility] [id number] [place] [address] [place] XR ABD 2V SUPINE W UPR/DECUB /CTLon 01-03-2025 XR ABD 2V SUPINE W UPR/DECUB/CTL Normal [facility] [id number] 01-01-2025 [id number] Normal [facility] CNTHERAPYon 01-01-2025 CNTHERAPY Normal [facility] THERAPY NTon 01-01-2025 THERAPY NT Normal [facility] CNOVon 12-31-2024 CNOV Normal [facility] TRYPTASE BLOODon 12-26-2024 Tryptase [Mass/Vol] 3.5 ug/L Normal <8.4 [facility] Comment on above: Order Comment: Speci men Type: BLOOD SPECIMENOrdering Facility: [facility] Address: [address] [place] [address] Performed By: #### T RYPT ####[facility] LABIA [id number] [place] [address] [place] CNPNon 12-25-2024 CNPN Normal [facility] CNOVon 12-24-2024 CNOV Normal [facility] CNCNPATEDon 12-21-2024 CNCNPATED Normal [facility] CNOVon 12-13-2024 CNOV Normal [facility] EMG(NEURO/NI)on 12-12-2024 Results can be seen in attached scanned documents. If you are a patient reviewing this test result, call the doctor who ordered the test with any questions. [facility] CNPNon 12-10-2024 CNPN Normal [facility] CNOVon 12-06-2024 CNOV Normal [facility] ACTH [facility] 12-04-2024 Corticotropin (P) [Mass/Vol] 62.7 pg/mL Normal 7.2-63.3 [facility] Comment on above: Order Comment: Speci men Type: BLOOD SPECIMENOrdering Facility: [facility] Address: [address] [place] [address] Result Comment: ACTH Reference Range: 7-10 am: 7.2 - 63.3 pg/mL Performed By: #### 2 141-0 ####[facility] LABCLIA [id number] [place] [address] [place] [facility]19 Cortisol [Mass/Vol] 19.8 ug/dL High 4.8-19.5 [facility] Comment on above: Order Comment: Speci men Type: BLOOD SPECIMENOrdering Facility: [facility] Address: [address] [place] [address] Result Comment: Prov ided reference range is from 6-10 AM sample collection time.Cortisol Reference Range: 6-10 AM = 4.8-19.5 ug/dL, 4-8 PM = 2.5-11.9 ug/dL Performed By: #### 2 143-6 ####[facility] LABORATORYCLIA [id number] [place] [address] [place] CNNURSEon 11-30-2024 CNNURSE Normal [facility] CNOVon 11-26-2024 CNOV Normal [facility] UA DIP,URINE HCG (POC)on Beta HCG ( test) Ql (U) Negative Negative [facility] Comment on above: Location:[facility], [address] [facility], [place], [place], [address] Biochemical Development Engineer (POCT) Internal QC OK [facility] Location:[facility], [address] [facility], [place], [place], [address] POINT OF CARE [facility] US Uterus and Fallopian tube s W saline IUon 11-26-2024 Indication SIS: Abnormal uterine bleeding Impression The uterus is anteverted and measures 77 mm x 30 mm x 38 mm. The endometrial thickness is 4.6 mm. Saline infusion sonohysterogram demonstrated an intracavitary lesion. The details of these findings are described in the procedure section below. The morphology of the ovaries bilaterally is polycystic. The right ovary measures 49 mm x 22 mm x 24 mm. The left ovary measures 39 mm x 30 mm x 21 mm. There is no free fluid visualized. Recommendations Small endometrial polyp and poor uterine distension during SIS. consider hysteroscopic evaluation and management if clinically indicated. Method Transabdominal, transvaginal, 3D ultrasound examination, Color Doppler examination, Saline Infusion Sonohysterogram Uterus Uterus: Visualized Uterus position: anteverted Description of uterine malformations: normally shaped Myometrium: normal Endometrium: Filling defects were identified. Uterus length 77 mm Uterus width 38 mm Uterus height 30 mm Uterus Vol 45.4 cm Endometrial thickness single layer 2.4 mm Endom. th. single layer 2.2 mm Side: anterior Side: posterior Endometrial thickness, total 4.6 mm Polyps: Polyps identified Uterine polyp D1 4 mm Uterine polyp D2 3 mm Uterine polyp D3 2 mm Uterine polyp mean 3.0 mm Uterine polyp findings: posterior fundal Right Ovary Rt ovary: Visualized Outline: smooth Rt ovary morphology: premenopausal polycystic Rt ovary D1 49 mm Rt ovary D2 22 mm Rt ovary D3 24 mm Rt ovary Vol 13.4 cm Left Ovary Lt ovary: Visualized Outline: smooth Lt ovary morphology: premenopausal polycystic Lt ovary D1 39 mm Lt ovary D2 30 mm Lt ovary D3 21 mm Lt ovary Vol 12.8 cm Cul de Sac Visualized. no free fluid visualized Procedure Saline infused ultrasound was performed and shows evidence of intrauterine pathology. An endometrial polyp was seen originating from the posterior measuring 4 x 3 x 2 mm. The uterus did not distend well, especially in the lower uterine segment. The anterior single layer endometrial thickness measured 2.4 mm and the posterior single layer endometrial thickness measured 2.2 mm. To characterize the endometrial polyp, three dimensional imaging was created on a dedicated stand-alone 3D workstation with images created and archived, and supervised and reviewed by the interpreting physician utilizing images from an ultrasound scan performed today. Performed By: Sailaja Andrew RDMS Read By: Katy Gant M.D. MATERNAL MEDICINE [facility] Radiology Study observation (narrative) [facility] CNTHERAPYon 11-22-2024 CNTHERAPY Normal [facility] THERAPY NTon 11-22-2024 THERAPY NT Normal [facility] CNOVon 11-21-2024 CNOV Normal [facility] UA DIP,URINE HCG (POC)on Beta HCG ( test) Ql (U) Negative Negative [facility] Comment on above: Location:[address], [facility] Biochemical Development Engineer (POCT) Internal QC [facility] Location:[facility], [address] [place] [address], [address] [place] [address] POINT OF CARE [facility] CNTHERAPYon 11-08-2024 CNTHERAPY Normal [facility] NTon 11-08-2024 THERAPY NT Normal [facility] HISTORY PHYSICALon HISTORY PHYSICAL Normal [facility] [id number] 11-02-2024 [id number] Normal [facility] [id number] Normal [facility] CNTHERAPYon 11-02-2024 CNTHERAPY Normal [facility] CNTHERAPY Normal [facility] THERAPY NTon 11-02-2024 THERAPY NT Normal [facility] B. burgdorferi IgG and IgM p jin (S)on 10-31-2024 B. burgdorferi IgG+IgM Qn (S) Negative Negative [facility] Comment on above: Recent infection wit h B. burgdorferi sensu lato cannot be excluded if the specimen collected within four weeks after the onset of signs and symptoms or within six weeks after a known tick exposure. Clinical and epidemiological correlation is required. Interpretation and review of laboratory results Normal [facility] B. burgdorferi IgG and IgM p jin (S)on 10-30-2024 B. burgdorferi IgG+IgM Qn (S) Negative Normal Negative [facility] Comment on above: Order Comment: Nataly saenz Type: BLOOD SPECIMENOrdering Facility: [facility] Address: [address] [place] [address] Result Comment: Rece nt infection with B. burgdorferi sensu lato cannot be excluded if the specimen collected within four weeks after the onset of signs and symptoms or within six weeks after a known tick exposure. Clinical and epidemiological correlation is required. Performed By: #### 3 4942-3 ####[facility] LABCLIA [id number] [address] [place] [facility] CNOVon 10-30-2024 CNOV Normal [facility] CRP High sensitivity method [Mass/Vol]on 10-30-2024 Interpretation and review of laboratory results Normal [facility] CRP SerPl HS-mCncon 10-31-19 25 CRP High sensitivity method [Mass/Vol] 0.3 mg/L Normal <3.1 [facility] Comment on above: Order Comment: Speci men Type: BLOOD SPECIMENOrdering Facility: [facility] Address: [address] [place] [address] Result Comment: hsCR P < 1.0 mg/L, relative risk is lowhsCRP 1.0-3.0 mg/L, relative risk is averagehsCRP > 3.0 mg/L, relative risk is highReference:Molly TA, Barndo GA, Jarrod RW, et al. Markers of Inflammation and Cardiovascular Disease. Application to Clinical and Public Health Practice. A Statement for Healthcare Professionals from the Centers for Disease Control and Prevention and the [place] [employer]. Circulation 2003;107:499-511. Performed By: #### 3 0522-7 ####[facility] LABCLIA [id number] [address] [place] LUIS TESFAYE PANELon 025 EBV NA Ab, Qual Positive Abnormal Negative [facility] EBV VCA IgG, Qual Positive Abnormal Negative [facility] EBV VCA IgM, Qual Negative Negative [facility] Interpretation (EBVPNL) Past Infection. EBV panel interpretation is a general guide that is meant to capture most, but not all, of the possible clinical scenarios. Non-specific reactivities are not uncommon especially with equivocal results. Should the overall interpretation not be consistent with the clinical picture, please contact the biomedical scientist of the test for assistance. [facility] Interpretation and review of laboratory results Abnormal [facility] EBV NA AB, QUAL Positive Abnormal Negative [facility] Comment on above: Order Comment: Speci men Type: BLOOD SPECIMENOrdering Facility: [facility] Address: [address] [place] [address] Performed By: #### E BVPNL ####[facility] LABCLIA [id number] [place] [address] [place] EBV VCA IGG, QUAL Positive Abnormal Negative [facility] Comment on above: Order Comment: Speci men Type: BLOOD SPECIMENOrdering Facility: [facility] Address: [address] [place] [address] Performed By: #### E BVPNL ####[facility] LABCLIA [id number] [place] [address] [place] EBV VCA IGM, QUAL Negative Normal Negative [facility] Comment on above: Order Comment: Speci [facility] Type: BLOOD SPECIMENOrdering Facility: [facility] Address: [address] [place] [address] Performed By: #### E BVPNL ####[facility] LABCLIA [id number] [address] [place] [address] [place] INTERPRETATION (EBVPNL) Normal [facility] Comment on above: Order Comment: Speci [facility] Type: BLOOD SPECIMENOrdering Facility: [facility] Address: [address] [place] [address] Performed By: #### E BVPNL ####[facility] LABCLIA [id number] [place] [id number] [place] HERPES 6 IGG ABon 04-22-2025 HERPES VIR 6 IGG AB 1:20 [facility] Comment on above: Order Comment: Speci men Type: BLOOD SPECIMENOrdering Facility: [facility] Address: [address] [place] [address] Result Comment: REFFidelina INGRAM RANGE: <1:10INTERPRETIVE CRITERIA:<1:10 Antibody Not Detected> or = 1:10 Antibody DetectedHuman Herpesvirus 6 (HHV-6) infects T-lymphocytes,and has been identified as an etiologic agent ofexanthema subitum. Rises in antibody titers toHHV-6 have been detected during infection withother viruses. In seroepidemiology studies of theprevalence of exposure using serum screeningdilutions of 1:10, the detection of antibody in amid-life population approaches 100%. Due to thishigh prevalence of HHV-6 antibody, correlations ofsingle titers with specific diseases are of littleclinical value.Serologic evidence of acute infection orreactivation of HHV-6 is demonstrated by asignificant rise or seroconversion of IgG and IgMtiters.This test was developed and its analyticalperformance characteristics have been determinedby [facility]. It has not been cleared orapproved by FDA. This assay has been validatedpursuant to the CLIA regulations and is used forclinical purposes.Performed at [facility],[address] [place] [address],Bee Álvarez MD, Ph.D, Director, [place] [id number] Performed By: #### H HV6 ####[facility] [id number] [place] [address] HIGH SENSITIVITY C-REACTIVE PROTEINon 10-30-2024 CRP High sensitivity method [Mass/Vol] 0.3 mg/L [facility] mg/L [facility] Comment on above: hsCRP < 1.0 mg/L, re lative risk is low hsCRP 1.0-3.0 mg/L, relative risk is average hsCRP > 3.0 mg/L, relative risk is high Reference: Molly TA, Brando GA, Jarrod RW, et al. Markers of Inflammation and Cardiovascular Disease. Application to Clinical and Public Health Practice. A Statement for Healthcare Professionals from the Centers for Disease Control and Prevention and the [place] [employer]. Circulation 2003;107:499-511. HISTAMINE BLDon 10-30-2024 HISTAMINE, WB 684 nmol/L Normal 180-1800 [facility] Comment on above: Order Comment: Speci men Type: BLOOD SPECIMENOrdering Facility: [facility] Address: [address] [place] [address] Result Comment: INTE RPRETIVE INFORMATION: Histamine, Whole BloodThis test was developed and its performance characteristicsdetermined by [facility]. It has not been cleared orapproved by the [place] Food and Drug Administration. This test wasperformed in a CLIA certified laboratory and is intended forclinical purposes.Performed By: [facility] [place] [id number] Director: Todd Sellers MD, PhDCLIA Number: [id number] Performed By: #### B HISTA ####[facility] [id number] [place] [address] IMMUNOGLOBULIN Sudheer 5 IgE Qn 324 kU/l High NINF - 114.0 kU/l [facility] IgE Qnon 10-30-2024 Interpretation and review of laboratory results Abnormal [facility] IgE SerPl-aCncon 10-30-2024 IgE Qn 324.0 kU/l High <114.0 [facility] Comment on above: Order Comment: Speci men Type: BLOOD SPECIMENOrdering Facility: [facility] Address: [address] [place] [address] Performed By: #### 1 9113-0, TRYPT ####[facility] LABCLIA [id number] [place] [address] [place] MAGNESIUM RBCon 10-30-2024 Magnesium (RBC) [Moles/Vol] 4.7 mg/dL Normal 4.0-6.5 [facility] Comment on above: Order Comment: Speci men Type: BLOOD SPECIMENOrdering Facility: [facility] Address: [address] [place] [address] Result Comment: This test was developed, and its performance characteristics determined by the [facility] Department of Pathology and Laboratory Medicine. It has not been cleared or approved by the FDA. The [facility] Department of Pathology and Laboratory Medicine is regulated under CLIA as qualified to perform high-complexity testing. This test is used for clinical purposes. It should not be regarded as investigational or for research. Performed By: #### M AGRBC ####[facility] LABCLIA [id number] [address] [address] [place] [facility] SEND OUT TST 1on 2024 [facility] SCAN TEST RESULTS 1 View results in Scanned Documents link when available Normal [facility] Comment on above: Order Comment: Speci men Type: BLOOD SPECIMENOrdering Facility: [facility] Address: [address] [place] [address] Performed By: #### M ISC1 ####NON-INTERFACED REF LABSCLIA SEE SCANNED RESULTSTRIHEALTH [facility] LABCLIA [id number] [place] [id number] [place] REFERRAL LAB 1 (DROP-DOWN) [facility] (and subsidiaries including [employer] [facility], [facility], and [facility] Normal [facility] Comment on above: Order Comment: Nataly saenz Type: BLOOD SPECIMENOrdering Facility: [facility] Address: [address] [place] [address] Performed By: #### M ISC1 ####NON-INTERFACED REF LABSCLIA SEE SCANNED RESULTSTRIHEALTH GOOD [facility] LABCLIA [id number] [place] [id number] [place] TEST 1 EBV Early Antigen Ab , IgG Normal [facility] Comment on above: Order Comment: Nataly saenz Type: BLOOD SPECIMENOrdering Facility: [facility] Address: [address] [place] [address] Performed By: #### M ISC1 ####NON-INTERFACED REF LABSCLIA SEE SCANNED RESULTSTRIHEALTH GOOD [facility] LABCLIA [id number] [address] [address] [place] TRYPTASE BLOODon 10-30-2024 Interpretation and review of laboratory results Normal [facility] Tryptase [Mass/Vol] 5 ug/L NINF - 8 .4 ug/L [facility] Tryptase [Mass/Vol] 5.0 ug/L Normal <8.4 [facility] Comment on above: Order Comment: Speci men Type: BLOOD SPECIMENOrdering Facility: [facility] Address: [address] [place] [address] Performed By: #### 1 9113-0, TRYPT ####[facility] LABCLIA [id number] [place] [address] [place] CNOVon 10-22-2024 CNOV Normal [facility] CNOVon 10-11-2024 CNOV Normal [facility] CNPNon 10-11-2024 CNPN Normal [facility] CNPNon 10-08-2024 CNPN Normal [facility] CNPTOUTREACHon 10-08-2024 CNPTOUTREACH Normal [facility] CASE MANAGEMon 10-07-2024 CASE MANAGEM Normal [facility] CNDSon 10-07-2024 CNDS Normal [facility] Basic metabolic 2000 panelon 10-06-2024 Anion gap [Moles/Vol] 11 mmol/L Normal 8-15 [facility] Comment on above: Order Comment: Speci men Type: BLOOD SPECIMENOrdering Facility: [facility] Address: [address] [place] [address] Performed By: #### 2 4321-2 ####[facility] LABORATORYCLIA [id number] [place] [address] [place] Calcium [Mass/Vol] 9.2 mg/dL Normal 8.5-10.2 [facility] Comment on above: Order Comment: Speci men Type: BLOOD SPECIMENOrdering Facility: [facility] Address: [address] [place] [address] Performed By: #### 2 4321-2 ####[facility] LABORATORYCLIA [id number] [place] [address] [place] Chloride [Moles/Vol] 100 mmol/L Normal 98-107 [facility] Comment on above: Order Comment: Speci men Type: BLOOD SPECIMENOrdering Facility: [facility] Address: [address] [place] [address] Performed By: #### 2 4321-2 ####[facility] LABORATORYCLIA [id number] [place] [address] [place] CO2 [Moles/Vol] 21 mmol/L Low 22-30 [facility] Comment on above: Order Comment: Speci men Type: BLOOD SPECIMENOrdering Facility: [facility] Address: [address] [place] [address] Performed By: #### 2 4321-2 ####[facility] [id number] [address] [place] Creatinine [Mass/Vol] 0.69 mg/dL Normal 0.58-0.96 [facility] Comment on above: Order Comment: Speci men Type: BLOOD SPECIMENOrdering Facility: [facility] Address: [address] [place] [address] Performed By: #### 2 4321-2 ####[facility] LABORATORYCLIA [id number] [address] Creatinine and Glomerular filtration rate.predicted panel (S/P/Bld) 122 mL/min/1.73m??? Normal >=60 [facility] Comment on above: Order Comment: Speci men Type: BLOOD SPECIMENOrdering Facility: [facility] Address: [address] [place] [address] Result Comment: Sveta mated Glomerular Filtration Rate (eGFR) is calculated using the 2020 CKD-EPI creatinine equation. This equation utilizes serum creatinine, sex, and age as parameters. The creatinine assay has traceable calibration to isotope dilution-mass spectrometry. Refer to KDIGO guidelines for clinical interpretation. In patients with unstable renal function, e.g. those with acute kidney injury, the eGFR may not accurately reflect actual GFR. Performed By: #### 2 4321-2 ####[facility] LABORATORYCLIA [id number] [address] [place] Glucose [Mass/Vol] 77 mg/dL Normal 74-99 [facility] Comment on above: Order Comment: Speci men Type: BLOOD SPECIMENOrdering Facility: [facility] Address: [address] [place] [address] Result Comment: The [place] Diabetes Association (ADA) provides guidance for cutoff values for fasting glucose and random glucose. The ADA defines fasting as no caloric intake for at least 8 hours. Fasting plasma glucose results between 100 to 125 mg/dL indicate increased risk for diabetes (prediabetes).Fasting plasma glucose results greater than or equal to 126 mg/dL meet the criteria for diagnosis of diabetes. In the absence of unequivocal hyperglycemia, results should be confirmed by repeat testing. In a patient with classic symptoms of hyperglycemia or hyperglycemic crisis, random plasma glucose results greater than or equal to 200 mg/dL meet the criteria for diagnosis of diabetes.Reference: Standards of Medical Care in Diabetes 2016, [place] [employer] Association. Diabetes Care. 2016.39(Suppl 1). Performed By: #### 2 4321-2 ####[facility] LABORATORYCLIA [id number] [place] [address] [place] Potassium [Moles/Vol] 3.7 mmol/L Normal 3.7-5.1 [facility] Comment on above: Order Comment: Nataly dany Type: BLOOD SPECIMENOrdering Facility: [facility] Address: [address] [place] [address] Performed By: #### 2 4321-2 ####[facility] LABORATORYCLIA [id number] [place] [address] [place] Sodium [Moles/Vol] 132 mmol/L Low 136-144 [facility] Comment on above: Order Comment: Speci men Type: BLOOD SPECIMENOrdering Facility: [facility] Address: [address] [place] [address] Performed By: #### 2 4321-2 ####[facility] LABORATORYCLIA [id number] [place] [address] [place] Urea nitrogen [Mass/Vol] 10 mg/dL Normal 7-21 [facility] Comment on above: Order Comment: Gregi men Type: BLOOD SPECIMENOrdering Facility: [facility] Address: [address] [place], [place] [id number] Performed By: #### 2 4321-2 ####[facility] LABORATORYCLIA [id number] [address] CBC panel Auto (Bld)on 10-06 Erythrocyte distribution width (RBC) [Ratio] 12.5 % Normal 11.5-15.0 [facility] Comment on above: Order Comment: Speci men Type: BLOOD SPECIMENOrdering Facility: [facility] Address: [address] [place] [address] Performed By: #### 5 8410-2 ####[facility] LABORATORYCLIA [id number] [address] Hematocrit (Bld) [Volume fraction] 45.1 % Normal 36.0-46.0 [facility] Comment on above: Order Comment: Speci men Type: BLOOD SPECIMENOrdering Facility: [facility] Address: [address] [place] [address] Performed By: #### 5 8410-2 ####[facility] LABORATORYCLIA [id number] [address] Hemoglobin (Bld) [Mass/Vol] 15.5 g/dL Normal 11.5-15.5 [facility] Comment on above: Order Comment: Speci men Type: BLOOD SPECIMENOrdering Facility: [facility] Address: [address] [place] [address] Performed By: #### 5 8410-2 ####[facility] LABORATORYCLIA [id number] [address] MCH (RBC) [Entitic mass] 30.4 pg Normal 26.0-34.0 [facility] Comment on above: Order Comment: Speci men Type: BLOOD SPECIMENOrdering Facility: [facility] Address: [address] [place] [address] Performed By: #### 5 8410-2 ####[facility] LABORATORYCLIA [id number] [address] MCHC (RBC) [Mass/Vol] 34.4 g/dL Normal 30.5-36.0 [facility] Comment on above: Order Comment: Speci men Type: BLOOD SPECIMENOrdering Facility: [facility] Address: [address] [place] [address] Performed By: #### 5 8410-2 ####[facility] LABORATORYCLIA [id number] [address] [place] [facility] MCV (RBC) [Entitic vol] 88.4 fL Normal 80.0-100.0 [facility] Comment on above: Order Comment: Speci men Type: BLOOD SPECIMENOrdering Facility: [facility] Address: [address] [place] [address] Performed By: #### 5 8410-2 ####[facility] LABORATORYCLIA [id number] [address] [place] Nucleated RBC (Bld) [#/Vol] 10*3/uL Normal <0.01 [facility] Comment on above: Order Comment: Speci men Type: BLOOD SPECIMENOrdering Facility: [facility] Address: [address] [place] [address] Performed By: #### 5 8410-2 ####[facility] LABORATORYCLIA [id number] [address] [place] Platelet mean volume (Bld) [Entitic vol] 10.2 fL Normal 9.0-12.7 [facility] Comment on above: Order Comment: Speci men Type: BLOOD SPECIMENOrdering Facility: [facility] Address: [address] [place] [address] Performed By: #### 5 8410-2 ####[facility] LABORATORYCLIA [id number] [address] [place] Platelets (Bld) [#/Vol] 296 10*3/uL Normal 150-400 [facility] Comment on above: Order Comment: Speci men Type: BLOOD SPECIMENOrdering Facility: [facility] Address: [address] [place] [address] Performed By: #### 5 8410-2 ####[facility] LABORATORYCLIA [id number] [place] [address] [place] RBC (Bld) [#/Vol] 5.10 10*6/uL Normal 3.90-5.20 [facility] Comment on above: Order Comment: Speci men Type: BLOOD SPECIMENOrdering Facility: [facility] Address: [address] [place] [address] Performed By: #### 5 8410-2 ####[facility] LABORATORYCLIA [id number] [address] [place] WBC (Bld) [#/Vol] 6.22 10*3/uL Normal 3.70-11.00 [facility] Comment on above: Order Comment: Speci men Type: BLOOD SPECIMENOrdering Facility: [facility] Address: [address] [place] [address] Performed By: #### 5 8410-2 ####[facility] LABORATORYCLIA [id number] [address] [facility] Basic metabolic 2000 panelon 10-05-2024 Anion gap [Moles/Vol] 12 mmol/L Normal 8-15 [facility] Comment on above: Order Comment: Speci men Type: BLOOD SPECIMENOrdering Facility: [facility] Address: [address] [place] [address] Performed By: #### 2 4321-2 ####[facility] LABORATORYCLIA [id number] [place] [address] [place] Calcium [Mass/Vol] 9.5 mg/dL Normal 8.5-10.2 [facility] Comment on above: Order Comment: Speci men Type: BLOOD SPECIMENOrdering Facility: [facility] Address: [address] [place] [address] Performed By: #### 2 4321-2 ####[facility] LABORATORYCLIA [id number] [address] [place] Chloride [Moles/Vol] 103 mmol/L Normal 98-107 [facility] Comment on above: Order Comment: Speci men Type: BLOOD SPECIMENOrdering Facility: [facility] Address: [address] [place] [address] Performed By: #### 2 4321-2 ####[facility] LABORATORYCLIA [id number] [place] [address] [place] CO2 [Moles/Vol] 24 mmol/L Normal 22-30 [facility] Comment on above: Order Comment: Speci men Type: BLOOD SPECIMENOrdering Facility: [facility] Address: [address] [place] [address] Performed By: #### 2 4321-2 ####[facility] LABORATORYCLIA [id number] [address] [facility] Creatinine [Mass/Vol] 0.59 mg/dL Normal 0.58-0.96 [facility] Comment on above: Order Comment: Speci men Type: BLOOD SPECIMENOrdering Facility: [facility] Address: [address] [place] [address] Performed By: #### 2 4321-2 ####[facility] LABORATORYCLIA [id number] [address] Creatinine and Glomerular filtration rate.predicted panel (S/P/Bld) 127 mL/min/1.73m??? Normal >=60 [facility] Comment on above: Order Comment: Speci men Type: BLOOD SPECIMENOrdering Facility: [facility] Address: [address] [place] [address] Result Comment: Sveta mated Glomerular Filtration Rate (eGFR) is calculated using the 2020 CKD-EPI creatinine equation. This equation utilizes serum creatinine, sex, and age as parameters. The creatinine assay has traceable calibration to isotope dilution-mass spectrometry. Refer to KDIGO guidelines for clinical interpretation. In patients with unstable renal function, e.g. those with acute kidney injury, the eGFR may not accurately reflect actual GFR. Performed By: #### 2 4321-2 ####[facility] LABORATORYCLIA [id number] [address] [facility] Glucose [Mass/Vol] 78 mg/dL Normal 74-99 [facility] Comment on above: Order Comment: Nataly men Type: BLOOD SPECIMENOrdering Facility: [facility] Address: [address] [place] [id number] Result Comment: The [place] Diabetes [employer] (ADA) provides guidance for cutoff values for fasting glucose and random glucose. The ADA defines fasting as no caloric intake for at least 8 hours. Fasting plasma glucose results between 100 to 125 mg/dL indicate increased risk for diabetes (prediabetes).Fasting plasma glucose results greater than or equal to 126 mg/dL meet the criteria for diagnosis of diabetes. In the absence of unequivocal hyperglycemia, results should be confirmed by repeat testing. In a patient with classic symptoms of hyperglycemia or hyperglycemic crisis, random plasma glucose results greater than or equal to 200 mg/dL meet the criteria for diagnosis of diabetes.Reference: Standards of Medical Care in Diabetes 2016, [place] [employer]. Diabetes Care. 2016.39(Suppl 1). Performed By: #### 2 4321-2 ####[facility] LABORATORYCLIA [id number] [place] [address] [place] Potassium [Moles/Vol] 3.7 mmol/L Normal 3.7-5.1 [facility] Comment on above: Order Comment: Nataly dany Type: BLOOD SPECIMENOrdering Facility: [facility] Address: [address] [place] [address] Performed By: #### 2 4321-2 ####[facility] LABORATORYCLIA [id number] [place] [address] [place] Sodium [Moles/Vol] 139 mmol/L Normal 136-144 [facility] Comment on above: Order Comment: Gregi men Type: BLOOD SPECIMENOrdering Facility: [facility] Address: [address] [id number] Performed By: #### 2 4321-2 ####[facility] LABORATORYCLIA [id number] [place] [address] [place] Urea nitrogen [Mass/Vol] 9 mg/dL Normal 7-21 [facility] Comment on above: Order Comment: Gregi men Type: BLOOD SPECIMENOrdering Facility: [facility] Address: [address] [place] [address] Performed By: #### 2 4321-2 ####[facility]ORATORYCLIA [id number] [address] STATES [facility] CBC panel Auto (Bld)on 10-05 Erythrocyte distribution width (RBC) [Ratio] 12.4 % Normal 11.5-15.0 [facility] Comment on above: Order Comment: Speci men Type: BLOOD SPECIMENOrdering Facility: [facility] Address: [address] [place] [address] Performed By: #### 5 8410-2 ####[facility]ORATORYCLIA [id number] [address] Hematocrit (Bld) [Volume fraction] 44.1 % Normal 36.0-46.0 [facility] Comment on above: Order Comment: Speci men Type: BLOOD SPECIMENOrdering Facility: [facility] Address: [address] [place] [address] Performed By: #### 5 8410-2 ####[facility]ORATORYCLIA [id number] [address] Hemoglobin (Bld) [Mass/Vol] 15.2 g/dL Normal 11.5-15.5 [facility] Comment on above: Order Comment: Speci men Type: BLOOD SPECIMENOrdering Facility: [facility] Address: [address] [place] [address] Performed By: #### 5 8410-2 ####[facility]ORATORYCLIA [id number] [address] STATES [facility] MCH (RBC) [Entitic mass] 30.2 pg Normal 26.0-34.0 [facility] Comment on above: Order Comment: Speci men Type: BLOOD SPECIMENOrdering Facility: [facility] Address: [address] [place] [address] Performed By: #### 5 8410-2 ####[facility]ORATORYCLIA [id number] [address] [place] MCHC (RBC) [Mass/Vol] 34.5 g/dL Normal 30.5-36.0 [facility] Comment on above: Order Comment: Speci men Type: BLOOD SPECIMENOrdering Facility: [facility] Address: [address] [place] [address] Performed By: #### 5 8410-2 ####[facility]ORATORYCLIA [id number] [address] STATES [facility] MCV (RBC) [Entitic vol] 87.5 fL Normal 80.0-100.0 [facility] Comment on above: Order Comment: Speci men Type: BLOOD SPECIMENOrdering Facility: [facility] Address: [address] [place] [address] Performed By: #### 5 8410-2 ####[facility]ORATORYCLIA [id number] [address] [facility] Nucleated RBC (Bld) [#/Vol] 10*3/uL Normal <0.01 [facility] Comment on above: Order Comment: Speci men Type: BLOOD SPECIMENOrdering Facility: [facility] Address: [address] [place] [address] Performed By: #### 5 8410-2 ####[facility]ORATORYCLIA [id number] [address] STATES [facility] Platelet mean volume (Bld) [Entitic vol] 10.3 fL Normal 9.0-12.7 [facility] Comment on above: Order Comment: Speci men Type: BLOOD SPECIMENOrdering Facility: [facility] Address: [address] [place] [address] Performed By: #### 5 8410-2 ####[facility]ATORYCLIA [id number] [address] [place] Platelets (Bld) [#/Vol] 337 10*3/uL Normal 150-400 [facility] Comment on above: Order Comment: Speci men Type: BLOOD SPECIMENOrdering Facility: [facility] Address: [address] [place] [address] Performed By: #### 5 8410-2 ####[facility]ORATORYCLIA [id number] [place] [address] [place] RBC (Bld) [#/Vol] 5.04 10*6/uL Normal 3.90-5.20 [facility] Comment on above: Order Comment: Speci men Type: BLOOD SPECIMENOrdering Facility: [facility] Address: [address] [place] [address] Performed By: #### 5 8410-2 ####[facility]ORATORYCLIA [id number] [place] [address] [place] WBC (Bld) [#/Vol] 7.02 10*3/uL Normal 3.70-11.00 [facility] Comment on above: Order Comment: Speci men Type: BLOOD SPECIMENOrdering Facility: [facility] Address: [address] [place] [address] Performed By: #### 5 8410-2 ####[facility]ORATORYCLIA [id number] [address] [place] CONSULT PROGon 10-05-2024 CONSULT PROG Normal [facility] NURSING PROGon 10-05-2024 NURSING PROG Normal [facility] ALLIED HEALTHon 10-04-2024 ALLIED HEALTH Normal [facility] Basic metabolic 2000 panelon 10-04-2024 Anion gap [Moles/Vol] 15 mmol/L Normal 8-15 [facility] Comment on above: Order Comment: Speci men Type: BLOOD SPECIMENOrdering Facility: [facility] Address: [address] [place] [address] Performed By: #### 2 4321-2 ####[facility]ORATORYCLIA [id number] [address] [place] Calcium [Mass/Vol] 9.2 mg/dL Normal 8.5-10.2 [facility] Comment on above: Order Comment: Speci men Type: BLOOD SPECIMENOrdering Facility: [facility] Address: [address] [place] [address] Performed By: #### 2 4321-2 ####[facility]ORATORYCLIA [id number] [place] [address] [place] Chloride [Moles/Vol] 104 mmol/L Normal 98-107 [facility] Comment on above: Order Comment: Speci men Type: BLOOD SPECIMENOrdering Facility: [facility] Address: [address] [place] [address] Performed By: #### 2 4321-2 ####[facility]ORATORYCLIA [id number] [address] [place] CO2 [Moles/Vol] 20 mmol/L Low 22-30 [facility] Comment on above: Order Comment: Speci men Type: BLOOD SPECIMENOrdering Facility: [facility] Address: [address] [place] [address] Performed By: #### 2 4321-2 ####[facility]ORATORYCLIA [id number] [address] [place] Creatinine [Mass/Vol] 0.75 mg/dL Normal 0.58-0.96 [facility] Comment on above: Order Comment: Speci men Type: BLOOD SPECIMENOrdering Facility: [facility] Address: [address] [place] [address] Performed By: #### 2 4321-2 ####[facility]ORATORYCLIA [id number] [address] Creatinine and Glomerular filtration rate.predicted panel (S/P/Bld) 112 mL/min/1.73m??? Normal >=60 [facility] Comment on above: Order Comment: Speci men Type: BLOOD SPECIMENOrdering Facility: [facility] Address: [address] [place] [address] Result Comment: Sveta mated Glomerular Filtration Rate (eGFR) is calculated using the 2020 CKD-EPI creatinine equation. This equation utilizes serum creatinine, sex, and age as parameters. The creatinine assay has traceable calibration to isotope dilution-mass spectrometry. Refer to KDIGO guidelines for clinical interpretation. In patients with unstable renal function, e.g. those with acute kidney injury, the eGFR may not accurately reflect actual GFR. Performed By: #### 2 4321-2 ####[facility]ORATORYCLIA [id number] [place] [address] [place] Glucose [Mass/Vol] 73 mg/dL Low 74-99 [facility] Comment on above: Order Comment: Nataly saenz Type: BLOOD SPECIMENOrdering Facility: [facility] Address: [address] [place] [address] Result Comment: The [place] [employer] (ADA) provides guidance for cutoff values for fasting glucose and random glucose. The ADA defines fasting as no caloric intake for at least 8 hours. Fasting plasma glucose results between 100 to 125 mg/dL indicate increased risk for diabetes (prediabetes).Fasting plasma glucose results greater than or equal to 126 mg/dL meet the criteria for diagnosis of diabetes. In the absence of unequivocal hyperglycemia, results should be confirmed by repeat testing. In a patient with classic symptoms of hyperglycemia or hyperglycemic crisis, random plasma glucose results greater than or equal to 200 mg/dL meet the criteria for diagnosis of diabetes.Reference: Standards of Medical Care in Diabetes 2016, [place] [employer]. Diabetes Care. 2016.39(Suppl 1). Performed By: #### 2 4321-2 ####[facility]ORATORYCLIA [id number] [place] [address] [place] Potassium [Moles/Vol] 4.1 mmol/L Normal 3.7-5.1 [facility] Comment on above: Order Comment: Nataly saenz Type: BLOOD SPECIMENOrdering Facility: [facility] Address: [address] [place] [address] Performed By: #### 2 4321-2 ####[facility]ORATORYCLIA [id number] [place] [address] [place] Sodium [Moles/Vol] 139 mmol/L Normal 136-144 [facility] Comment on above: Order Comment: Nataly saenz Type: BLOOD SPECIMENOrdering Facility: [facility] Address: [address] [place] [address] Performed By: #### 2 4321-2 ####[facility]ORATORYCLIA [id number] [place] [address] [place] Urea nitrogen [Mass/Vol] 13 mg/dL Normal 7-21 [facility] Comment on above: Order Comment: Speci men Type: BLOOD SPECIMENOrdering Facility: [facility] Address: [address] [place] [address] Performed By: #### 2 4321-2 ####[facility]ORATORYCLIA [id number] [address] [place] CASE MGT INIT ASSESon 2024 CASE MGT INIT ASSES Normal [facility] CBC panel Auto (Bld)on 10-04 Erythrocyte distribution width (RBC) [Ratio] 12.5 % Normal 11.5-15.0 [facility] Comment on above: Order Comment: Speci men Type: BLOOD SPECIMENOrdering Facility: [facility] Address: [address] [place] [address] Performed By: #### 5 8410-2 ####[facility]ORATORYCLIA [id number] [address] STATES [facility] Hematocrit (Bld) [Volume fraction] 44.6 % Normal 36.0-46.0 [facility] Comment on above: Order Comment: Speci men Type: BLOOD SPECIMENOrdering Facility: [facility] Address: [address] [place] [address] Performed By: #### 5 8410-2 ####[facility]ATORYCLIA [id number] [address] [place] Hemoglobin (Bld) [Mass/Vol] 14.8 g/dL Normal 11.5-15.5 [facility] Comment on above: Order Comment: Speci men Type: BLOOD SPECIMENOrdering Facility: [facility] Address: [address] [place] [address] Performed By: #### 5 8410-2 ####[facility]ATORYCLIA [id number] [address] [place] MCH (RBC) [Entitic mass] 30.0 pg Normal 26.0-34.0 [facility] Comment on above: Order Comment: Speci men Type: BLOOD SPECIMENOrdering Facility: [facility] Address: [address] [place] [address] Performed By: #### 5 8410-2 ####[facility]ORATORYCLIA [id number] [address] STATES [facility] MCHC (RBC) [Mass/Vol] 33.2 g/dL Normal 30.5-36.0 [facility] Comment on above: Order Comment: Speci men Type: BLOOD SPECIMENOrdering Facility: [facility] Address: [address] [place] [address] Performed By: #### 5 8410-2 ####[facility]ORATORYCLIA [id number] [address] [facility] MCV (RBC) [Entitic vol] 90.5 fL Normal 80.0-100.0 [facility] Comment on above: Order Comment: Speci men Type: BLOOD SPECIMENOrdering Facility: [facility] Address: [address] [place] [address] Performed By: #### 5 8410-2 ####[facility]ORATORYCLIA [id number] [address] Nucleated RBC (Bld) [#/Vol] 10*3/uL Normal <0.01 [facility] Comment on above: Order Comment: Speci men Type: BLOOD SPECIMENOrdering Facility: [facility] Address: [address] [place] [address] Performed By: #### 5 8410-2 ####[facility]ORATORYCLIA [id number] [address] STATES [facility] Platelet mean volume (Bld) [Entitic vol] 10.5 fL Normal 9.0-12.7 [facility] Comment on above: Order Comment: Speci men Type: BLOOD SPECIMENOrdering Facility: [facility] Address: [address] [place] [address] Performed By: #### 5 8410-2 ####[facility]ATORYCLIA [id number] [address] [place] Platelets (Bld) [#/Vol] 296 10*3/uL Normal 150-400 [facility] Comment on above: Order Comment: Speci men Type: BLOOD SPECIMENOrdering Facility: [facility] Address: [address] [place] [address] Performed By: #### 5 8410-2 ####[facility]ORATORYCLIA [id number] [address] [place] RBC (Bld) [#/Vol] 4.93 10*6/uL Normal 3.90-5.20 [facility] Comment on above: Order Comment: Speci men Type: BLOOD SPECIMENOrdering Facility: [facility] Address: [address] [place] [address] Performed By: #### 5 8410-2 ####[facility]ORATORYCLIA [id number] [address] STATES [facility] WBC (Bld) [#/Vol] 6.32 10*3/uL Normal 3.70-11.00 [facility] Comment on above: Order Comment: Speci men Type: BLOOD SPECIMENOrdering Facility: [facility] Address: [address] [place] [address] Performed By: #### 5 8410-2 ####[facility]ORATORYCLIA [id number] [address] CONSULT PROGon 10-04-2024 CONSULT PROG Normal [facility] CTA CHEST (NON GATED) W IVCO N PEon 10-04-2024 CTA CHEST (NON GATED) W IVCON PE Normal [facility] NURSING PROGon 10-04-2024 NURSING PROG Normal [facility] ALLIED HEALTHon 10-03-2024 ALLIED HEALTH Normal [facility] ALLIED HEALTH Normal [facility] Basic metabolic 2000 panelon 10-03-2024 Anion gap [Moles/Vol] 10 mmol/L Normal 8-15 [facility] Comment on above: Order Comment: Speci men Type: BLOOD SPECIMENOrdering Facility: [facility] Address: [address] [place], [place] [address] Performed By: #### 2 4321-2 ####[facility]ORATORYCLIA [id number] [place] [address] [place] Calcium [Mass/Vol] 9.3 mg/dL Normal 8.5-10.2 [facility] Comment on above: Order Comment: Speci men Type: BLOOD SPECIMENOrdering Facility: [facility] Address: [address] [place] [address] Performed By: #### 2 4321-2 ####[facility]ORATORYCLIA [id number] [place] [address] [place] Chloride [Moles/Vol] 106 mmol/L Normal 98-107 [facility] Comment on above: Order Comment: Speci men Type: BLOOD SPECIMENOrdering Facility: [facility] Address: [address] [place] [address] Performed By: #### 2 4321-2 ####[facility]ATORYCLIA [id number] [place] [address] [place] CO2 [Moles/Vol] 24 mmol/L Normal 22-30 [facility] Comment on above: Order Comment: Speci men Type: BLOOD SPECIMENOrdering Facility: [facility] Address: [address] [place] [address] Performed By: #### 2 4321-2 ####[facility]ATORYCLIA [id number] [place] [address] [place] Creatinine [Mass/Vol] 0.76 mg/dL Normal 0.58-0.96 [facility] Comment on above: Order Comment: Speci men Type: BLOOD SPECIMENOrdering Facility: [facility] Address: [address] [place] [address] Performed By: #### 2 4321-2 ####[facility]ATORYCLIA [id number] [address] Creatinine and Glomerular filtration rate.predicted panel (S/P/Bld) 110 mL/min/1.73m??? Normal >=60 [facility] Comment on above: Order Comment: Speci men Type: BLOOD SPECIMENOrdering Facility: [facility] Address: [facility] [place] [address] Result Comment: Sveta mated Glomerular Filtration Rate (eGFR) is calculated using the 2020 CKD-EPI creatinine equation. This equation utilizes serum creatinine, sex, and age as parameters. The creatinine assay has traceable calibration to isotope dilution-mass spectrometry. Refer to KDIGO guidelines for clinical interpretation. In patients with unstable renal function, e.g. those with acute kidney injury, the eGFR may not accurately reflect actual GFR. Performed By: #### 2 4321-2 ####[facility]ORATORYCLIA [id number] [place] [address] [place] Glucose [Mass/Vol] 83 mg/dL Normal 74-99 [facility] Comment on above: Order Comment: Nataly saenz Type: BLOOD SPECIMENOrdering Facility: [facility] Address: [address] [place] [address] Result Comment: The [place] [employer] (ADA) provides guidance for cutoff values for fasting glucose and random glucose. The ADA defines fasting as no caloric intake for at least 8 hours. Fasting plasma glucose results between 100 to 125 mg/dL indicate increased risk for diabetes (prediabetes).Fasting plasma glucose results greater than or equal to 126 mg/dL meet the criteria for diagnosis of diabetes. In the absence of unequivocal hyperglycemia, results should be confirmed by repeat testing. In a patient with classic symptoms of hyperglycemia or hyperglycemic crisis, random plasma glucose results greater than or equal to 200 mg/dL meet the criteria for diagnosis of diabetes.Reference: Standards of Medical Care in Diabetes 2016, [place] [employer]. Diabetes Care. 2016.39(Suppl 1). Performed By: #### 2 4321-2 ####[facility]ORATORYCLIA [id number] [place] [address] [place] Potassium [Moles/Vol] 4.3 mmol/L Normal 3.7-5.1 [facility] Comment on above: Order Comment: Nataly saenz Type: BLOOD SPECIMENOrdering Facility: [facility] Address: [address] [place] [address] Performed By: #### 2 4321-2 ####[facility]ORATORYCLIA [id number] [place] [address] [place] Sodium [Moles/Vol] 140 mmol/L Normal 136-144 [facility] Comment on above: Order Comment: Speci men Type: BLOOD SPECIMENOrdering Facility: [facility] Address: [address] [place] [address] Performed By: #### 2 4321-2 ####[facility]ORATORYCLIA [id number] [address] [place] Urea nitrogen [Mass/Vol] 13 mg/dL Normal 7-21 [facility] Comment on above: Order Comment: Speci men Type: BLOOD SPECIMENOrdering Facility: [facility] Address: [address] [place] [address] Performed By: #### 2 4321-2 ####[facility]ORATORYCLIA [id number] [address] [place] CBC panel Auto (Bld)on 10-03 Erythrocyte distribution width (RBC) [Ratio] 12.9 % Normal 11.5-15.0 [facility] Comment on above: Order Comment: Speci men Type: BLOOD SPECIMENOrdering Facility: [facility] Address: [address] [place] [address] Performed By: #### 5 8410-2 ####[facility]ORATORYCLIA [id number] [address] [place] Hematocrit (Bld) [Volume fraction] 44.3 % Normal 36.0-46.0 [facility] Comment on above: Order Comment: Speci men Type: BLOOD SPECIMENOrdering Facility: [facility] Address: [address] [place] [address] Performed By: #### 5 8410-2 ####[facility]ATORYCLIA [id number] [address] [place] Hemoglobin (Bld) [Mass/Vol] 15.1 g/dL Normal 11.5-15.5 [facility] Comment on above: Order Comment: Speci men Type: BLOOD SPECIMENOrdering Facility: [facility] Address: [address] [place] [address] Performed By: #### 5 8410-2 ####[facility]ORATORYCLIA [id number] [address] MCH (RBC) [Entitic mass] 30.6 pg Normal 26.0-34.0 [facility] Comment on above: Order Comment: Speci men Type: BLOOD SPECIMENOrdering Facility: [facility] Address: [address] [place] [address] Performed By: #### 5 8410-2 ####[facility]ORATORYCLIA [id number] [address] [facility] MCHC (RBC) [Mass/Vol] 34.1 g/dL Normal 30.5-36.0 [facility] Comment on above: Order Comment: Speci men Type: BLOOD SPECIMENOrdering Facility: [facility] Address: [address] [place] [address] Performed By: #### 5 8410-2 ####[facility]ATORYCLIA [id number] [address] MCV (RBC) [Entitic vol] 89.7 fL Normal 80.0-100.0 [facility] Comment on above: Order Comment: Speci men Type: BLOOD SPECIMENOrdering Facility: [facility] Address: [address] [place] [address] Performed By: #### 5 8410-2 ####[facility]ATORYCLIA [id number] [address] Nucleated RBC (Bld) [#/Vol] 10*3/uL Normal <0.01 [facility] Comment on above: Order Comment: Speci men Type: BLOOD SPECIMENOrdering Facility: [facility] Address: [address] [place] [address] Performed By: #### 5 8410-2 ####[facility]ATORYCLIA [id number] [address] [place] Platelet mean volume (Bld) [Entitic vol] 10.2 fL Normal 9.0-12.7 [facility] Comment on above: Order Comment: Speci men Type: BLOOD SPECIMENOrdering Facility: [facility] Address: [address] [place] [address] Performed By: #### 5 8410-2 ####[facility]ATORYCLIA [id number] [address] [facility] Platelets (Bld) [#/Vol] 311 10*3/uL Normal 150-400 [facility] Comment on above: Order Comment: Speci men Type: BLOOD SPECIMENOrdering Facility: [facility] Address: [address] [place] [address] Performed By: #### 5 8410-2 ####[facility]ATORYCLIA [id number] [place] [address] [place] RBC (Bld) [#/Vol] 4.94 10*6/uL Normal 3.90-5.20 [facility] Comment on above: Order Comment: Speci men Type: BLOOD SPECIMENOrdering Facility: [facility] Address: [address] [place] [address] Performed By: #### 5 8410-2 ####[facility]ATORYCLIA [id number] [address] [place] WBC (Bld) [#/Vol] 6.33 10*3/uL Normal 3.70-11.00 [facility] Comment on above: Order Comment: Speci men Type: BLOOD SPECIMENOrdering Facility: [facility] Address: [address] [place] [address] Performed By: #### 5 8410-2 ####[facility] LABORATORYCLIA [id number] [address] [place] CONSULTon 10-03-2024 CONSULT Normal [facility] CONSULT Normal [facility] ECG COMPLETEon 10-03-2024 ECG COMPLETE Normal [facility] NURSING PROGon 10-03-2024 NURSING PROG Normal [facility] ED NOTEon 10-02-2024 ED NOTE HNO ID: [id number] Author: TOMAS PATEL, JEFFREY Service: Emergency Medicine Author Type: Registered Nurse Type: ED Notes Filed: 10/02/2024 06:51 Note Text: Report called to JEFFREY Zuñiga at [facility] main. Patient will go to [facility] once transport arrives. Normal [facility] ED NOTE Normal [facility] HISTORY PHYSICALon HISTORY PHYSICAL Normal [facility] CBC W Auto Differential pane l (Bld)on 10-01-2024 Basophils (Bld) [#/Vol] 0.04 10*3/uL Normal <0.11 [facility] Comment on above: Order Comment: Speci men Type: BLOOD SPECIMENOrdering Facility: [facility] Address: [address] [place] [address] Performed By: #### 5 7021-8 ####[facility] [place] LABCLIA [id number] [place] [address] [place] Basophils/100 WBC (Bld) 0.4 % Normal [facility] Comment on above: Order Comment: Speci men Type: BLOOD SPECIMENOrdering Facility: [facility] Address: [address] [place] [address] Performed By: #### 5 7021-8 ####[facility] LABCLIA [id number] [place] [address] [place] Differential cell count method Nom (Bld) Auto Normal [facility] Comment on above: Order Comment: Speci men Type: BLOOD SPECIMENOrdering Facility: [facility] Address: [address] [place] [address] Performed By: #### 5 7021-8 ####[facility] LABCLIA [id number] [place] [address] [place] Eosinophils (Bld) [#/Vol] 10*3/uL Normal <0.46 [facility] Comment on above: Order Comment: Speci men Type: BLOOD SPECIMENOrdering Facility: [facility] Address: [address] [place] [address] Performed By: #### 5 7021-8 ####[facility] LABCLIA [id number] [place] [address] [place] Eosinophils/100 WBC (Bld) 0.2 % Normal [facility] Comment on above: Order Comment: Speci men Type: BLOOD SPECIMENOrdering Facility: [facility] Address: [address] [place] [address] Performed By: #### 5 7021-8 ####[facility] LABCLIA [id number] [place] [address] [place] Erythrocyte distribution width (RBC) [Ratio] 12.3 % Normal 11.5-15.0 [facility] Comment on above: Order Comment: Speci men Type: BLOOD SPECIMENOrdering Facility: [facility] Address: [address] [place] [address] Performed By: #### 5 7021-8 ####[facility] LABCLIA [id number] [place] [id number] [place] Hematocrit (Bld) [Volume fraction] 47.8 % High 36.0-46.0 [facility] Comment on above: Order Comment: Speci men Type: BLOOD SPECIMENOrdering Facility: [facility] Address: [address] [place] [address] Performed By: #### 5 7021-8 ####[facility] LABCLIA [id number] [place] [id number] [place] Hemoglobin (Bld) [Mass/Vol] 16.2 g/dL High 11.5-15.5 [facility] Comment on above: Order Comment: Speci men Type: BLOOD SPECIMENOrdering Facility: [facility] Address: [address] [place] [address] Performed By: #### 5 7021-8 ####[facility] LABCLIA [id number] [place] [id number] [facility] [place] Immature granulocytes (Bld) [#/Vol] 0.03 10*3/uL Normal <0.10 [facility] Comment on above: Order Comment: Speci men Type: BLOOD SPECIMENOrdering Facility: [facility] Address: [address] [place] [address] Performed By: #### 5 7021-8 ####[facility] LABCLIA [id number] [place] [address] [facility] Immature granulocytes/100 WBC (Bld) 0.3 % Normal [facility] Comment on above: Order Comment: Speci men Type: BLOOD SPECIMENOrdering Facility: [facility] Address: [address] [place] [address] Performed By: #### 5 7021-8 ####[facility] LABCLIA [id number] [place] [address] [place] Lymphocytes (Bld) [#/Vol] 1.14 10*3/uL Normal 1.00-4.00 [facility] Comment on above: Order Comment: Speci men Type: BLOOD SPECIMENOrdering Facility: [facility] Address: [address] [place] [address] Performed By: #### 5 7021-8 ####[facility] LABCLIA [id number] [place] [address] [facility] Lymphocytes/100 WBC (Bld) 11.1 % Normal [facility] Comment on above: Order Comment: Speci men Type: BLOOD SPECIMENOrdering Facility: [facility] Address: [address] [place] [address] Performed By: #### 5 7021-8 ####[facility] LABCLIA [id number] [place] [address] [place] MCH (RBC) [Entitic mass] 30.3 pg Normal 26.0-34.0 [facility] Comment on above: Order Comment: Speci men Type: BLOOD SPECIMENOrdering Facility: [facility] Address: [address] [place] [address] Performed By: #### 5 7021-8 ####[facility] LABCLIA [id number] [place] [address] [place] MCHC (RBC) [Mass/Vol] 33.9 g/dL Normal 30.5-36.0 [facility] Comment on above: Order Comment: Speci men Type: BLOOD SPECIMENOrdering Facility: [facility] Address: [address] [place] [address] Performed By: #### 5 7021-8 ####[facility] LABCLIA [id number] [place] [address] [place] MCV (RBC) [Entitic vol] 89.3 fL Normal 80.0-100.0 [facility] Comment on above: Order Comment: Speci men Type: BLOOD SPECIMENOrdering Facility: [facility] Address: [address] [place] [address] Performed By: #### 5 7021-8 ####[facility] LABCLIA [id number] [place] [address] [place] Monocytes (Bld) [#/Vol] 0.53 10*3/uL Normal <0.87 [facility] Comment on above: Order Comment: Speci men Type: BLOOD SPECIMENOrdering Facility: [facility] Address: [address] [place] [address] Performed By: #### 5 7021-8 ####[facility] LABCLIA [id number] [place] [address] [place] Monocytes/100 WBC (Bld) 5.2 % Normal [facility] Comment on above: Order Comment: Speci men Type: BLOOD SPECIMENOrdering Facility: [facility] Address: [address] [place] [address] Performed By: #### 5 7021-8 ####[facility] LABCLIA [id number] [place] [address] [place] Neutrophils (Bld) [#/Vol] 8.52 10*3/uL High 1.45-7.50 [facility] Comment on above: Order Comment: Speci men Type: BLOOD SPECIMENOrdering Facility: [facility] Address: [address] [place] [address] Performed By: #### 5 7021-8 ####[facility] LABCLIA [id number] [place] [address] [place] Neutrophils/100 WBC (Bld) 82.8 % Normal [facility] Comment on above: Order Comment: Speci men Type: BLOOD SPECIMENOrdering Facility: [facility] Address: [facility] [place] [address] Performed By: #### 5 7021-8 ####[facility] LABCLIA [id number] [place] [address] [place] Nucleated RBC (Bld) [#/Vol] Normal [facility] Comment on above: Order Comment: Speci men Type: BLOOD SPECIMENOrdering Facility: [facility] Address: [address] [place] [address] Performed By: #### 5 7021-8 ####[facility] [id number] [place] [address] [place] Nucleated RBC/100 WBC (Bld) [Ratio] Normal [facility] Comment on above: Order Comment: Speci men Type: BLOOD SPECIMENOrdering Facility: [facility] Address: [address] [place] [address] Performed By: #### 5 7021-8 ####[facility] LABCLIA [id number] [place] [address] [place] Platelet mean volume (Bld) [Entitic vol] 9.8 fL Normal 9.0-12.7 [facility] Comment on above: Order Comment: Speci men Type: BLOOD SPECIMENOrdering Facility: [facility] Address: [address] [place] [address] Performed By: #### 5 7021-8 ####[facility] LABCLIA [id number] [place] [address] [place] Platelets (Bld) [#/Vol] 342 10*3/uL Normal 150-400 [facility] Comment on above: Order Comment: Speci men Type: BLOOD SPECIMENOrdering Facility: [facility] Address: [address] [place] [address] Performed By: #### 5 7021-8 ####[facility] LABCLIA [id number] [place] [address] [place] RBC (Bld) [#/Vol] 5.35 10*6/uL High 3.90-5.20 [facility] Comment on above: Order Comment: Speci men Type: BLOOD SPECIMENOrdering Facility: [facility] Address: [address] [place] [address] Performed By: #### 5 7021-8 ####[facility] LABCLIA [id number] [place] [address] [place] WBC (Bld) [#/Vol] 10.28 10*3/uL Normal 3.70-11.00 [facility] Comment on above: Order Comment: Speci men Type: BLOOD SPECIMENOrdering Facility: [facility] Address: [address] [place] [address] Performed By: #### 5 7021-8 ####[facility] LABCLIA [id number] [place] [address] [facility] CNPTOUTREACHon 10-01-2024 CNPTOUTREACH Normal [facility] Comprehensive metabolic 2000 panelon 10-01-2024 Albumin [Mass/Vol] 5.1 g/dL High 3.9-4.9 [facility] Comment on above: Order Comment: Speci men Type: BLOOD SPECIMENOrdering Facility: [facility] Address: [address] [place] [address] Performed By: #### 2 4323-8, 5643-2, ####[facility] LABCLIA [id number] [place] [address] [place] ALP [Catalytic activity/Vol] 82 U/L Normal 34-123 [facility] Comment on above: Order Comment: Speci men Type: BLOOD SPECIMENOrdering Facility: [facility] Address: [address] [place] [address] Performed By: #### 2 4323-8, 5643-2, ####[facility] LABCLIA [id number] [place] [address] [place] ALT [Catalytic activity/Vol] 39 U/L High 7-38 [facility] Comment on above: Order Comment: Speci men Type: BLOOD SPECIMENOrdering Facility: [facility] Address: [address] [place] [address] Performed By: #### 2 4323-8, 5643-2, ####[facility] LABCLIA [id number] [place] [address] [place] Anion gap [Moles/Vol] 9 mmol/L Normal 8-15 [facility] Comment on above: Order Comment: Speci men Type: BLOOD SPECIMENOrdering Facility: [facility] Address: [address] [place] [address] Performed By: #### 2 4323-8, 5643-2, ####[facility] LABCLIA [id number] [place] [address] [place] AST [Catalytic activity/Vol] 21 U/L Normal 13-35 [facility] Comment on above: Order Comment: Speci men Type: BLOOD SPECIMENOrdering Facility: [facility] Address: [address] [place] [address] Performed By: #### 2 4323-8, 5643-2, ####[facility] LABCLIA [id number] [place] [address] [place] Bilirubin [Mass/Vol] 0.4 mg/dL Normal 0.2-1.3 [facility] Comment on above: Order Comment: Speci men Type: BLOOD SPECIMENOrdering Facility: [facility] Address: [address] [place] [address] Result Comment: Use of this assay is not recommended for patients undergoing treatment with eltrombopag due to the potential for falsely elevated results. Performed By: #### 2 4323-8, 5643-2, ####[facility] LABCLIA [id number] [place] [address] [place] Calcium [Mass/Vol] 9.8 mg/dL Normal 8.5-10.2 [facility] Comment on above: Order Comment: Speci men Type: BLOOD SPECIMENOrdering Facility: [facility] Address: [address] [place] [address] Performed By: #### 2 4323-8, 5643-2, ####[facility] LABCLIA [id number] [place] [address] [place] Chloride [Moles/Vol] 101 mmol/L Normal 98-107 [facility] Comment on above: Order Comment: Speci men Type: BLOOD SPECIMENOrdering Facility: [facility] Address: [address] [place] [address] Performed By: #### 2 4323-8, 5643-2, ####[facility] LABCLIA [id number] [place] [address] [place] CO2 [Moles/Vol] 28 mmol/L Normal 22-30 [facility] Comment on above: Order Comment: Speci men Type: BLOOD SPECIMENOrdering Facility: [facility] Address: [address] [place] [address] Performed By: #### 2 4323-8, 5643-2, ####[facility] LABCLIA [id number] [place] [address] [place] Creatinine [Mass/Vol] 0.71 mg/dL Normal 0.58-0.96 [facility] Comment on above: Order Comment: Speci men Type: BLOOD SPECIMENOrdering Facility: [facility] Address: [address] [place] [address] Result Comment: Use of this assay is not recommended for patients undergoing treatment with phenindione, due to the potential for falsely depressed results. Performed By: #### 2 4323-8, 5643-2, ####[facility] LABCLIA [id number] [place] [address] [place] Creatinine and Glomerular filtration rate.predicted panel (S/P/Bld) 120 mL/min/1.73m??? Normal >=60 [facility] Comment on above: Order Comment: Nataly saenz Type: BLOOD SPECIMENOrdering Facility: [facility] Address: [address] [place] [id number] Result Comment: Sveta mated Glomerular Filtration Rate (eGFR) is calculated using the 2020 CKD-EPI creatinine equation. This equation utilizes serum creatinine, sex, and age as parameters. The creatinine assay has traceable calibration to isotope dilution-mass spectrometry. Refer to KDIGO guidelines for clinical interpretation. In patients with unstable renal function, e.g. those with acute kidney injury, the eGFR may not accurately reflect actual GFR. Performed By: #### 2 4323-8, 5643-2, 42268-0 ####[facility] LABCLIA [id number] [place] [id number] [place] Glucose [Mass/Vol] 167 mg/dL High 74-99 [facility] Comment on above: Order Comment: Nataly saenz Type: BLOOD SPECIMENOrdering Facility: [facility] Address: [address] [place] [address] Result Comment: The [place] Diabetes Association (ADA) provides guidance for cutoff values for fasting glucose and random glucose. The ADA defines fasting as no caloric intake for at least 8 hours. Fasting plasma glucose results between 100 to 125 mg/dL indicate increased risk for diabetes (prediabetes).Fasting plasma glucose results greater than or equal to 126 mg/dL meet the criteria for diagnosis of diabetes. In the absence of unequivocal hyperglycemia, results should be confirmed by repeat testing. In a patient with classic symptoms of hyperglycemia or hyperglycemic crisis, random plasma glucose results greater than or equal to 200 mg/dL meet the criteria for diagnosis of diabetes.Reference: Standards of Medical Care in Diabetes 2016, [place] [employer]. Diabetes Care. 2016.39(Suppl 1). Performed By: #### 2 4323-8, 5643-2, 00520-6 ####[facility] LABCLIA [id number] [place] [address] [place] Potassium [Moles/Vol] 4.2 mmol/L Normal 3.7-5.1 [facility] Comment on above: Order Comment: Nataly saenz Type: BLOOD SPECIMENOrdering Facility: [facility] Address: [address] [facility] [place] [address] Performed By: #### 2 4323-8, 5643-2, 14895-0 ####[facility] LABCLIA [id number] [place] [address] [place] Protein [Mass/Vol] 7.9 g/dL Normal 6.3-8.0 [facility] Comment on above: Order Comment: Speci men Type: BLOOD SPECIMENOrdering Facility: [facility] Address: [address] [place] [address] Performed By: #### 2 4323-8, 5643-2, 77933-2 ####[facility] LABCLIA [id number] [place] [address] [place] Sodium [Moles/Vol] 138 mmol/L Normal 136-144 [facility] Comment on above: Order Comment: Speci men Type: BLOOD SPECIMENOrdering Facility: [facility] Address: [address] [place] [address] Performed By: #### 2 4323-8, 5643-2, 32321-2 ####[facility] LABCLIA [id number] [place] [address] [place] Urea nitrogen [Mass/Vol] 13 mg/dL Normal 7-21 [facility] Comment on above: Order Comment: Speci men Type: BLOOD SPECIMENOrdering Facility: [facility] Address: [address] [place] [address] Performed By: #### 2 4323-8, 5643-2, 51912-8 ####[facility] LABCLIA [id number] [place] [address] [place] ED NOTEon 10-01-2024 ED NOTE HNO ID: [id number] Author: TOMAS PATEL RN Service: Emergency Medicine Author Type: Registered Nurse Type: ED Notes Filed: 10/01/2024 21:38 Note Text: Report obtained, assuming care of patient at this time Normal [facility] ED NOTE Normal [facility] ED NOTE HNO ID: [id number] Author: MERLIN, AMI, RN Service: ? Author Type: Registered Nurse Type: ED Notes Filed: 10/01/2024 20:30 Note Text: Bed: [address] [place] [address] Expected date: Expected time: Means of arrival: Comments: Normal [facility] ED NOTE HNO ID: [id number] Author: RASHEED [place], RN Service: Nursing Author Type: Registered Nurse Type: ED Notes Filed: 10/01/2024 19:50 Note Text: Physician remains at bedside to speak with pt Normal [facility] ED NOTE HNO ID: [id number] Author: RASHEED [place], RN Service: Nursing Author Type: Registered Nurse Type: ED Notes Filed: 10/01/2024 19:43 Note Text: Provider at bedside to speak with pt. Boyfriend at bedside per pt request. Normal [facility] ED NOTE Normal [facility] ED NOTE HNO ID: [id number] Author: REJI CORDOBA RN Service: ? Author Type: Registered Nurse Type: ED Notes Filed: 10/01/2024 19:18 Note Text: Please see chief complaint. Normal [facility] ED PROV NOTEon 10-01-2024 ED PROV NOTE Normal [facility] ED PROV NOTE Normal [facility] Ethanol SerPl-mCncon 025 Ethanol [Mass/Vol] mg/dL Normal <11 [facility] Comment on above: Order Comment: Speci men Type: BLOOD SPECIMENOrdering Facility: [facility] Address: [address] [place] [address] Performed By: #### 2 4323-8, 5643-2, 57484-4 ####[facility] LABCLIA [id number] [place] [address] [place] HCG Preg Ur Qlon 10-01-2024 HCG ( test) Ql (U) Negative Normal Negative [facility] Comment on above: Order Comment: Speci men Type: URINE SPECIMENOrdering Facility: [facility] Address: [address] [place] [address] Result Comment: This test is intended to aid in the early detection of . Very dilute urine samples, as indicated by a low specific gravity, may not contain collections representative levels of hCG. This test detects intact hCG only. This test does not reliably detect hCG degradation products, including free-beta subunit and beta-core fragment. Therefore, this test may show reduced reactivity in urine after 8 weeks gestation. A number of conditions other than , including trophoblastic disease and certain non-trophoblastic neoplasms cause elevated levels of hCG. As with any assay employing mouse antibodies, the possibility exists for interference by human anti-mouse antibodies (HAMA) in the specimen. The test provides a presumptive diagnosis for . Performed By: #### 2 106-3, UTOX2 ####[facility] LABCLIA [id number] [place] [address] [place] HIGH SENSITIVITY TROPONIN Io n 10-01-2024 Tropinin I.cardiac panel High sensitivity method <2.0 Normal <=20.7 [facility] Comment on above: Order Comment: Speci men Type: BLOOD SPECIMENOrdering Facility: [facility] Address: [address] [place] [address] Performed By: #### H STROP ####[facility] LABIA [id number] [place] [id number] [place] Magnesium SerPl-mCncon 10-01 Magnesium [Mass/Vol] 2.3 mg/dL Normal 1.7-2.3 [facility] Comment on above: Order Comment: Speci men Type: BLOOD SPECIMENOrdering Facility: [facility] Address: [address] [place] [address] Performed By: #### 2 4323-8, 5643-2, 81207-7 ####[facility] LABIA [id number] [place] [address] [place] TOXICOLOGY SCREEN, ROUTINE U RINEon 10-01-2024 Amphetamines Confirm (U) [Mass/Vol] Negative Normal Negative [facility] Comment on above: Order Comment: Speci men Type: URINE SPECIMENOrdering Facility: [facility] Address: [address] [place] [address] Result Comment: Cuto ff threshold at 1000 ng/mL. Performed By: #### 2 106-3, UTOX2 ####[facility] LABCLIA [id number] [place] [address] [place] BARBITURATES, URINE Negative Normal Negative [facility] Comment on above: Order Comment: Speci men Type: URINE SPECIMENOrdering Facility: [facility] Address: [address] [place] [address] Result Comment: Cuto ff threshold at 200 ng/mL. Performed By: #### 2 106-3, UTOX2 ####[facility] LABCLIA [id number] [place] [address] [place] BENZODIAZEPINES, UR Negative Normal Negative [facility] Comment on above: Order Comment: Speci men Type: URINE SPECIMENOrdering Facility: [facility] Address: [address] [place] [address] Result Comment: Cuto ff threshold at 200 ng/mL. Performed By: #### 2 106-3, UTOX2 ####[facility] LABCLIA [id number] [place] [address] [place] Cannabinoids Screen Ql (U) Negative Normal Negative [facility] Comment on above: Order Comment: Speci men Type: URINE SPECIMENOrdering Facility: [facility] Address: [address] [place] [address] Result Comment: Cuto ff threshold at 50 ng/mL. Performed By: #### 2 106-3, UTOX2 ####[facility] LABCLIA [id number] [place] [address] [place] Cocaine Ql (U) Negative Normal Negative [facility] Comment on above: Order Comment: Speci men Type: URINE SPECIMENOrdering Facility: [facility] Address: [address] [place] [address] Result Comment: Cuto ff threshold at 300 ng/mL. Performed By: #### 2 106-3, UTOX2 ####[facility] LABCLIA [id number] [place] [address] [place] Ethanol (U) [Mass/Vol] <10 Normal <11 [facility] Comment on above: Order Comment: Speci men Type: URINE SPECIMENOrdering Facility: [facility] Address: [address] [place] [address] Performed By: #### 2 106-3, UTOX2 ####[facility] LABCLIA [id number] [place] [address] [facility] Opiates Screen Ql (U) Negative Normal Negative [facility] Comment on above: Order Comment: Speci men Type: URINE SPECIMENOrdering Facility: [facility] Address: [address] [place] [address] Result Comment: Cuto ff threshold at 300 ng/mL. Performed By: #### 2 106-3, UTOX2 ####[facility] LABCLIA [id number] [place] [address] [facility] oxyCODONE cutoff Screen (U) [Mass/Vol] Negative Normal Negative [facility] Comment on above: Order Comment: Speci men Type: URINE SPECIMENOrdering Facility: [facility] Address: [address] [place] [address] Result Comment: Cuto ff threshold at 100 ng/mL. Performed By: #### 2 106-3, UTOX2 ####[facility]CLIA [id number] [place] [address] [place] Phencyclidine Ql (U) Negative Normal Negative [facility] Comment on above: Order Comment: Speci men Type: URINE SPECIMENOrdering Facility: [facility] Address: [address] [place] [address] Result Comment: Cuto ff threshold at 25 ng/mL. Performed By: #### 2 106-3, UTOX2 ####[facility] LABCLIA [id number] [place] [address] [place] TSH SerPl-aCncon 10-01-2024 TSH Qn 2.679 m[IU]/L Normal 0.270-4.200 [facility] Comment on above: Order Comment: Speci men Type: BLOOD SPECIMENOrdering Facility: [facility] Address: [address] [place] [address] Result Comment: If t he patient is , TSH reference range varies by gestational period:First Trimester (weeks 9-12): 0.180-2.990 mIU/LSecond Trimester: 0.110-3.980 mIU/LThird Trimester: 0.480-4.710 mIU/Jenifer Douglas et al. A Practical Approach for the Verifications and Determination of Site- and Trimester-Specific Reference Intervals for Thyroid Function tests in . Thyroid, 2019:29:3:412-420. Jarrod Kitchen, et al. 2017 Guidelines of the [place] Thyroid Association for the Diagnosis and Management of Thyroid Disease during and the . Thyroid, 2017:27:3:315-389. Performed By: #### 3 016-3 ####[facility] LABCLIA [id number] [place] [address] [facility] Urinalysis complete panel (U )on 10-01-2024 Bilirubin Ql (U) Negative Normal Negative [facility] Comment on above: Order Comment: Speci men Type: URINE SPECIMENOrdering Facility: [facility] Address: [address] [place] [address] Performed By: #### 2 4356-8 ####[facility] LABCLIA [id number] [place] [address] [place] Clarity (Unsp spec) Clear Normal Clear [facility] Comment on above: Order Comment: Speci men Type: URINE SPECIMENOrdering Facility: [facility] Address: [address] [place] [address] Performed By: #### 2 4356-8 ####[facility] LAB[facility]IA [id number] [place] [address] [place] [facility] Color (U) Straw Normal Yellow [facility] Comment on above: Order Comment: Speci men Type: URINE SPECIMENOrdering Facility: [facility] Address: [facility] [place] [address] Performed By: #### 2 4356-8 ####[facility] LABCLIA [id number] [place] [address] [facility] [place] Glucose Test strip (U) [Mass/Vol] Negative Normal Negative [facility] Comment on above: Order Comment: Speci men Type: URINE SPECIMENOrdering Facility: [facility] Address: [address] [place] [address] Performed By: #### 2 4356-8 ####[facility] LABCLIA [id number] [facility] [place] [address] [place] Hemoglobin Ql (U) Negative Normal Negative [facility] Comment on above: Order Comment: Speci men Type: URINE SPECIMENOrdering Facility: [facility] Address: [address] [place] [address] Performed By: #### 2 4356-8 ####[facility] LABCLIA [id number] [place] [address] [place] Ketones Ql (U) Negative Normal Negative [facility] Comment on above: Order Comment: Speci men Type: URINE SPECIMENOrdering Facility: [facility] Address: [address] [place] [address] Performed By: #### 2 4356-8 ####[facility]CLIA [id number] [place] [address] [place] Leukocyte esterase Test strip Ql (U) Negative Normal Negative [facility] Comment on above: Order Comment: Speci men Type: URINE SPECIMENOrdering Facility: [facility] Address: [address] [place] [address] Performed By: #### 2 4356-8 ####[facility] LABCLIA [id number] [facility] [place] [address] [place] Nitrite Ql (U) Negative Normal Negative [facility] Comment on above: Order Comment: Speci men Type: URINE SPECIMENOrdering Facility: [facility] Address: [address] [place] [address] Performed By: #### 2 4356-8 ####[facility] LABCLIA [id number] [place] [address] [place] pH (U) 7.0 [pH] Normal 5.0-8.0 [facility] Comment on above: Order Comment: Speci men Type: URINE SPECIMENOrdering Facility: [facility] Address: [address] [place] [address] Performed By: #### 2 4356-8 ####[facility]CLIA [id number] [place] [address] [facility] Protein (U) [Mass/Vol] Negative Normal Negative [facility] Comment on above: Order Comment: Speci men Type: URINE SPECIMENOrdering Facility: [facility] Address: [address] [place] [address] Performed By: #### 2 4356-8 ####[facility] LABCLIA [id number] [place] [id number] [facility] RBC LM.HPF (Urine sed) [#/Area] 0-3 /HPF Normal 0-3 /HPF [facility] Comment on above: Order Comment: Speci men Type: URINE SPECIMENOrdering Facility: [facility] Address: [address] [place] [address] Performed By: #### 2 4356-8 ####[facility] LABCLIA [id number] [place] [id number] [facility] Specific gravity (U) [Rel density] 1.015 Normal 1.005-1.030 [facility] Comment on above: Order Comment: Speci men Type: URINE SPECIMENOrdering Facility: [facility] Address: [address] [place] [address] Performed By: #### 2 4356-8 ####[facility] LABCLIA [id number] [place] [address] [facility] Urobilinogen Ql (U) 0.2 EU/dL Normal 0.2-1.0 EU/dL [facility] Comment on above: Order Comment: Speci men Type: URINE SPECIMENOrdering Facility: [facility] Address: [address] [place] [address] Performed By: #### 2 4356-8 ####[facility] LABCLIA [id number] [place] [address] [place] WBC LM.HPF (Urine sed) [#/Area] 0-5 /HPF Normal 0-5 /HPF [facility] Comment on above: Order Comment: Speci men Type: URINE SPECIMENOrdering Facility: [facility] Address: [address] [place], [place] [address] [address] Performed By: #### 2 4356-8 ####[facility] LABCLIA [id number] [place] [address] [place] ECG COMPLETEon 09-29-2024 ECG COMPLETE Normal [facility] ED NOTEon 09-29-2024 ED NOTE Normal [facility] ED NOTE Normal [facility] ALLIED HEALTHon 09-28-2024 ALLIED HEALTH Normal [facility] Basic metabolic 2000 panelon 09-28-2024 Anion gap [Moles/Vol] 9 mmol/L Normal 8-15 [facility] Comment on above: Order Comment: Speci men Type: BLOOD SPECIMENOrdering Facility: [facility] Address: [address] [place] [address] Performed By: #### 2 4321-2, ####[facility] LABCLIA [id number] [place] [address] [place] Calcium [Mass/Vol] 9.5 mg/dL Normal 8.5-10.2 [facility] Comment on above: Order Comment: Speci men Type: BLOOD SPECIMENOrdering Facility: [facility] Address: [address] [place] [address] Performed By: #### 2 4321-2, ####[facility] LABCLIA [id number] [place] [address] [place] Chloride [Moles/Vol] 104 mmol/L Normal 98-107 [facility] Comment on above: Order Comment: Speci men Type: BLOOD SPECIMENOrdering Facility: [facility] Address: [address] [place] [address] Performed By: #### 2 4321-2, ####[facility] LABCLIA [id number] [place] [address] [place] CO2 [Moles/Vol] 25 mmol/L Normal 22-30 [facility] Comment on above: Order Comment: Speci dany Type: BLOOD SPECIMENOrdering Facility: [facility] Address: [address] [place] [address] Performed By: #### 2 432-2, ####[facility] LABCLIA [id number] [place] [address] [place] Creatinine [Mass/Vol] 0.74 mg/dL Normal 0.58-0.96 [facility] Comment on above: Order Comment: Speci men Type: BLOOD SPECIMENOrdering Facility: [facility] Address: [address] [place] [address] Result Comment: Use of this assay is not recommended for patients undergoing treatment with phenindione, due to the potential for falsely depressed results. Performed By: #### 2 43207-12, ####[facility] LABCLIA [id number] [place] [phone] [place] [facility] Creatinine and Glomerular filtration rate.predicted panel (S/P/Bld) 114 mL/min/1.73m??? Normal >=60 [facility] Comment on above: Order Comment: Gregi dany Type: BLOOD SPECIMENOrdering Facility: [facility] Address: [address] [place] [address] Result Comment: Sveta mated Glomerular Filtration Rate (eGFR) is calculated using the 2020 CKD-EPI creatinine equation. This equation utilizes serum creatinine, sex, and age as parameters. The creatinine assay has traceable calibration to isotope dilution-mass spectrometry. Refer to KDIGO guidelines for clinical interpretation. In patients with unstable renal function, e.g. those with acute kidney injury, the eGFR may not accurately reflect actual GFR. Performed By: #### 2 432-, ####[facility] LABCLIA [id number] [place] [address] [place] Glucose [Mass/Vol] 128 mg/dL High 74-99 [facility] Comment on above: Order Comment: Speci men Type: BLOOD SPECIMENOrdering Facility: [facility] Address: [address] [place] [id number] Result Comment: The [place] Diabetes Association (ADA) provides guidance for cutoff values for fasting glucose and random glucose. The ADA defines fasting as no caloric intake for at least 8 hours. Fasting plasma glucose results between 100 to 125 mg/dL indicate increased risk for diabetes (prediabetes).Fasting plasma glucose results greater than or equal to 126 mg/dL meet the criteria for diagnosis of diabetes. In the absence of unequivocal hyperglycemia, results should be confirmed by repeat testing. In a patient with classic symptoms of hyperglycemia or hyperglycemic crisis, random plasma glucose results greater than or equal to 200 mg/dL meet the criteria for diagnosis of diabetes.Reference: Standards of Medical Care in Diabetes 2016, [place] Diabetes Association. Diabetes Care. 2016.39(Suppl 1). Performed By: #### 2 4320-, ####[facility] LABCLIA [id number] [place] [address] [place] Potassium [Moles/Vol] 3.3 mmol/L Low 3.7-5.1 [facility] Comment on above: Order Comment: Speci men Type: BLOOD SPECIMENOrdering Facility: [facility] Address: [address] [place] [address] Performed By: #### 2 4320-08, ####[facility] LABCLIA [id number] [place] [address] [place] Sodium [Moles/Vol] 138 mmol/L Normal 136-144 [facility] Comment on above: Order Comment: Speci men Type: BLOOD SPECIMENOrdering Facility: [facility] Address: [address] [place] [id number] Performed By: #### 2 4320-08, ####[facility] LABCLIA [id number] [place] [address] [place] Urea nitrogen [Mass/Vol] 16 mg/dL Normal 7-21 [facility] Comment on above: Order Comment: Speci men Type: BLOOD SPECIMENOrdering Facility: [facility] Address: [address] [place] [address] Performed By: #### 2 4321-2, 49697-8 ####[facility] LABCLIA [id number] [place] [address] [place] CBC W Auto Differential pane l (Bld)on 09-28-2024 Basophils (Bld) [#/Vol] 0.05 10*3/uL Normal <0.11 [facility] Comment on above: Order Comment: Speci men Type: BLOOD SPECIMENOrdering Facility: [facility] Address: [address] [place] [address] Performed By: #### 5 7021-8 ####[facility] LABCLIA [id number] [place] [address] [facility] Basophils/100 WBC (Bld) 0.7 % Normal [facility] Comment on above: Order Comment: Speci men Type: BLOOD SPECIMENOrdering Facility: [facility] Address: [address] [place] [address] Performed By: #### 5 7021-8 ####[facility] LABCLIA [id number] [place] [address] [facility] Differential cell count method Nom (Bld) Auto Normal [facility] Comment on above: Order Comment: Speci men Type: BLOOD SPECIMENOrdering Facility: [facility] Address: [address] [place] [address] Performed By: #### 5 7021-8 ####[facility] LABCLIA [id number] [place] [address] [place] Eosinophils (Bld) [#/Vol] 0.08 10*3/uL Normal <0.46 [facility] Comment on above: Order Comment: Speci men Type: BLOOD SPECIMENOrdering Facility: [facility] Address: [address] [place] [address] Performed By: #### 5 7021-8 ####[facility] LABCLIA [id number] [place] [address] [facility] Eosinophils/100 WBC (Bld) 1.1 % Normal [facility] Comment on above: Order Comment: Speci men Type: BLOOD SPECIMENOrdering Facility: [facility] Address: [address] [place] [address] Performed By: #### 5 7021-8 ####[facility] LABCLIA [id number] [place] [address] [place] Erythrocyte distribution width (RBC) [Ratio] 12.3 % Normal 11.5-15.0 [facility] Comment on above: Order Comment: Speci men Type: BLOOD SPECIMENOrdering Facility: [facility] Address: [address] [place] [address] Performed By: #### 5 7021-8 ####[facility] LABCLIA [id number] [place] [address] [place] Hematocrit (Bld) [Volume fraction] 46.4 % High 36.0-46.0 [facility] Comment on above: Order Comment: Speci men Type: BLOOD SPECIMENOrdering Facility: [facility] Address: [address] [place] [address] Performed By: #### 5 7021-8 ####[facility] LABCLIA [id number] [place] [address] [place] Hemoglobin (Bld) [Mass/Vol] 16.1 g/dL High 11.5-15.5 [facility] Comment on above: Order Comment: Speci men Type: BLOOD SPECIMENOrdering Facility: [facility] Address: [address] [place] [address] Performed By: #### 5 7021-8 ####[facility] LABCLIA [id number] [place] [address] [place] Immature granulocytes (Bld) [#/Vol] 10*3/uL Normal <0.10 [facility] Comment on above: Order Comment: Speci men Type: BLOOD SPECIMENOrdering Facility: [facility] Address: [address] [place] [address] Performed By: #### 5 7021-8 ####[facility] LABCLIA [id number] [place] [address] [place] Immature granulocytes/100 WBC (Bld) 0.3 % Normal [facility] Comment on above: Order Comment: Speci men Type: BLOOD SPECIMENOrdering Facility: [facility] Address: [address] [place] [address] Performed By: #### 5 7021-8 ####[facility] LABCLIA [id number] [place] [address] [place] Lymphocytes (Bld) [#/Vol] 2.01 10*3/uL Normal 1.00-4.00 [facility] Comment on above: Order Comment: Speci men Type: BLOOD SPECIMENOrdering Facility: [facility] Address: [address] [place] [address] Performed By: #### 5 7021-8 ####[facility] LABCLIA [id number] [place] [id number] [facility] Lymphocytes/100 WBC (Bld) 26.9 % Normal [facility] Comment on above: Order Comment: Speci men Type: BLOOD SPECIMENOrdering Facility: [facility] Address: [address] [place] [address] Performed By: #### 5 7021-8 ####[facility] LABCLIA [id number] [place] [phone] [place] MCH (RBC) [Entitic mass] 30.5 pg Normal 26.0-34.0 [facility] Comment on above: Order Comment: Speci men Type: BLOOD SPECIMENOrdering Facility: [facility] Address: [address] [place] [address] Performed By: #### 5 7021-8 ####[facility] LABCLIA [id number] [place] [address] [place] MCHC (RBC) [Mass/Vol] 34.7 g/dL Normal 30.5-36.0 [facility] Comment on above: Order Comment: Speci men Type: BLOOD SPECIMENOrdering Facility: [facility] Address: [address] [place] [address] Performed By: #### 5 7021-8 ####[facility] LABCLIA [id number] [place] [address] [place] MCV (RBC) [Entitic vol] 87.9 fL Normal 80.0-100.0 [facility] Comment on above: Order Comment: Speci men Type: BLOOD SPECIMENOrdering Facility: [facility] Address: [address] [place] [address] Performed By: #### 5 7021-8 ####[facility] LABCLIA [id number] [place] [address] [place] Monocytes (Bld) [#/Vol] 0.64 10*3/uL Normal <0.87 [facility] Comment on above: Order Comment: Speci men Type: BLOOD SPECIMENOrdering Facility: [facility] Address: [address] [place] [address] Performed By: #### 5 7021-8 ####[facility] LABCLIA [id number] [place] [address] [place] Monocytes/100 WBC (Bld) 8.6 % Normal [facility] Comment on above: Order Comment: Speci men Type: BLOOD SPECIMENOrdering Facility: [facility] Address: [address] [place] [address] Performed By: #### 5 7021-8 ####[facility] LABCLIA [id number] [place] [address] [place] Neutrophils (Bld) [#/Vol] 4.67 10*3/uL Normal 1.45-7.50 [facility] Comment on above: Order Comment: Speci men Type: BLOOD SPECIMENOrdering Facility: [facility] Address: [address] [place] [address] Performed By: #### 5 7021-8 ####[facility] LABCLIA [id number] [place] [address] [place] Neutrophils/100 WBC (Bld) 62.4 % Normal [facility] Comment on above: Order Comment: Speci men Type: BLOOD SPECIMENOrdering Facility: [facility] Address: [address] [place] [address] Performed By: #### 5 7021-8 ####[facility] LABCLIA [id number] [place] [address] [place] Nucleated RBC (Bld) [#/Vol] Normal [facility] Comment on above: Order Comment: Speci men Type: BLOOD SPECIMENOrdering Facility: [facility] Address: [address] [place] [address] Performed By: #### 5 7021-8 ####[facility] LABCLIA [id number] [place] [address] [place] Nucleated RBC/100 WBC (Bld) [Ratio] Normal [facility] Comment on above: Order Comment: Speci men Type: BLOOD SPECIMENOrdering Facility: [facility] Address: [address] [place] [address] Performed By: #### 5 7021-8 ####[facility] LABCLIA [id number] [place] [address] [place] Platelet mean volume (Bld) [Entitic vol] 10.3 fL Normal 9.0-12.7 [facility] Comment on above: Order Comment: Speci men Type: BLOOD SPECIMENOrdering Facility: [facility] Address: [address] [place] [address] Performed By: #### 5 7021-8 ####[facility] LABCLIA [id number] [place] [address] [place] Platelets (Bld) [#/Vol] 347 10*3/uL Normal 150-400 [facility] Comment on above: Order Comment: Speci men Type: BLOOD SPECIMENOrdering Facility: [facility] Address: [address] [place] [address] Performed By: #### 5 7021-8 ####[facility] LABCLIA [id number] [place] [address] [place] RBC (Bld) [#/Vol] 5.28 10*6/uL High 3.90-5.20 [facility] Comment on above: Order Comment: Speci men Type: BLOOD SPECIMENOrdering Facility: [facility] Address: [address] [place] [address] Performed By: #### 5 7021-8 ####[facility] LABCLIA [id number] [place] [address] [place] WBC (Bld) [#/Vol] 7.47 10*3/uL Normal 3.70-11.00 [facility] Comment on above: Order Comment: Speci men Type: BLOOD SPECIMENOrdering Facility: [facility] Address: [address] [place] [address] Performed By: #### 5 7021-8 ####[facility] LABCLIA [id number] [place] [address] [facility] CNOVon 09-28-2024 CNOV Normal [facility] D dimer FEU PPP-mCncon 09-28 Fibrin D-dimer FEU (PPP) [Mass/Vol] <190 Normal <500 [facility] Comment on above: Order Comment: Speci men Type: BLOOD SPECIMENOrdering Facility: [facility] Address: [address] [place] [address] Performed By: #### 4 8065-7 ####[facility] LABCLIA [id number] [place] [address] [facility] ED NOTEon 09-28-2024 ED NOTE Normal [facility] ED PROV NOTEon 09-28-2024 ED PROV NOTE Normal [facility] ED PROV NOTE Normal [facility] HIGH SENSITIVITY TROPONIN I (INITIAL)on 09-28-2024 Tropinin I.cardiac panel High sensitivity method <2.0 Normal <=20.7 [facility] Comment on above: Order Comment: Speci men Type: BLOOD SPECIMENOrdering Facility: [facility] Address: [address] [place] [address] Performed By: #### L [id number] ####[facility] LABCLIA [id number] [place] [address] [place] HIGH SENSITIVITY TROPONIN I (SECOND)on 09-28-2024 Tropinin I.cardiac panel High sensitivity method <2.0 Normal <=20.7 [facility] Comment on above: Order Comment: Speci men Type: BLOOD SPECIMENOrdering Facility: [facility] Address: [address] [place] [address] Performed By: #### H STROPI2 ####[facility] LABCLIA [id number] [place] [id number] [place] Magnesium SerPl-mCncon 09-28 Magnesium [Mass/Vol] 2.1 mg/dL Normal 1.7-2.3 [facility] Comment on above: Order Comment: Speci men Type: BLOOD SPECIMENOrdering Facility: [facility] Address: [address] [place] [address] Performed By: #### 2 4321-2, 72558-1 ####[facility] LABIA [id number] [place] [address] [place] Natriuretic peptide B [Mass/ Vol]on 09-28-2024 Natriuretic peptide B (Bld) [Mass/Vol] 12 pg/mL Normal <=100 [facility] Comment on above: Order Comment: Speci men Type: BLOOD SPECIMENOrdering Facility: [facility] Address: [address] [place] [address] Result Comment: New methodology (BNP)/new testing platform; please note change in reference range. Performed By: #### 3 0934-4 ####[facility] LABIA [id number] [place] [id number] [place] XR CHEST 2V FRONTAL/LATon XR CHEST 2V FRONTAL/LAT Normal [facility] CNOVon 09-27-2024 CNOV Normal [facility] BACTERIAL VAGINOSIS NAATon 0 09-26-2024 Lactobacillus crispatus+gasseri+polina enii + Gardnerella vaginalis + Atopobium vaginae rRNA ZULEMA+probe Ql (Vag fld) Not detected Normal Not detected [facility] Comment on above: Order Comment: Speci men Type: SWABOrdering Facility: [facility] Address: [address] [place] [address] Performed By: #### B VAMP ####[facility] LABCLIA [id number] JEANNINE VELAZQUEZ [id number] [place] [address] [place] CNOVon 09-26-2024 CNOV Normal [facility] CNOVon 09-17-2024 CNOV Normal [facility] CNTHERAPYon 09-17-2024 CNTHERAPY Normal [facility] CNTHERAPY Normal [facility] THERAPY NTon 09-17-2024 THERAPY NT Normal [facility] CNOVon 09-13-2024 CNOV Normal [facility] CNPNon 09-10-2024 CNPN Normal [facility] CNOVon 09-05-2024 CNOV Normal [facility] CNOV Normal [facility] HEARING TEST/AUDIOGRAMon TEST RESULTS: Audiometric testing revealed pure tone thresholds within normal limits bilaterally. Speech receptionist secretary thresholds agree with pure tone thresholds bilaterally. Speech discrimination testing revealed excellent speech understanding ability bilaterally. Tympanometry revealed normal tympanic membrane mobility and middle ear pressure bilaterally. [facility] CNOVon 09-04-2024 CNOV Normal [facility] ECG B/O W INTERP (MED OFFICE )on 09-04-2024 Sinus tachycardia at 132 bpm, GA 140, QRS 90 ms, QTc 440. No obvious preexcitation. [facility] CNOVon 09-03-2024 CNOV Normal [facility] HISTORY PHYSICALon HISTORY PHYSICAL Normal [facility] HISTORY PHYSICALon 5 HISTORY PHYSICAL Normal [facility] HISTORY PHYSICAL Normal [facility] METANEPHRINES, FREE PLASMAon 08-31-2024 METANEPHRINE, PLASMA 41 pg/mL Normal [facility] Comment on above: Order Comment: Speci men Type: BLOOD SPECIMENOrdering Facility: [facility] Address: [address] [place] [address] Result Comment: Refe rence Ranges:Hypertensive adult > or = 18 yrs old: 12-72 pg/mLNormotensive adult > or = 18 yrs old: 12-67 pg/mLNormotensive children < 18 yrs old: 10-95 pg/mL Performed By: #### P METAN ####[facility] LABCLIA [id number] [place] [address] [place] NORMETANEPHRINE, PLASMA 96 pg/mL Normal 18-101 [facility] Comment on above: Order Comment: Speci men Type: BLOOD SPECIMENOrdering Facility: [facility] Address: [address] [place] [address] Result Comment: Refe rence Ranges:Hypertensive adult > or = 18 yrs old: 24-145 pg/mLNormotensive adult > or = 18 yrs old: 18-101 pg/mLNormotensive children < 18 yrs old: 22-83 pg/mLMethyldopa may cause false elevation of normetanephrine levels in this assay. If patient is on methyldopa, interpret results with caution. Performed By: #### P METAN ####[facility] LABIA [id number] [place] [address] [place] T3 SerPl-mCncon 08-31-2024 T3 [Mass/Vol] 92 ng/dL Normal 79-165 [facility] Comment on above: Order Comment: Speci men Type: BLOOD SPECIMENOrdering Facility: [facility] Address: [address] [place] [address] Performed By: #### 3 016-3, 302-7, 3056 ####[facility] LABORATORYCLIA [id number] [place] [address] [place] T4 Free SerPl-mCncon 025 Free T4 [Mass/Vol] 1.3 ng/dL Normal 0.9-1.7 [facility] Comment on above: Order Comment: Speci men Type: BLOOD SPECIMENOrdering Facility: [facility] Address: [address] [place] [address] Performed By: #### 3 016-3, 302-7, 3053-6 ####[facility] LABORATORYCLIA [id number] [place] [address] [place] TRYPTASE BLOODon 08-31-2024 Tryptase [Mass/Vol] 3.8 ug/L Normal <8.4 [facility] Comment on above: Order Comment: Speci men Type: BLOOD SPECIMENOrdering Facility: [facility] Address: [address] [place] [address] Performed By: #### T RYPT ####[facility] LABCLIA [id number] [place] [address] [place] TSH SerPl-aCncon 08-31-2024 TSH Qn 1.510 m[IU]/L Normal 0.270-4.200 [facility] Comment on above: Order Comment: Speci men Type: BLOOD SPECIMENOrdering Facility: [facility] Address: [address] [place] [address] Result Comment: If t he patient is , TSH reference range varies by gestational period:First Trimester (weeks 9-12): 0.180-2.990 mIU/LSecond Trimester: 0.110-3.980 mIU/LThird Trimester: 0.480-4.710 mIU/Jenifer Douglas et al. A Practical Approach for the Verifications and Determination of Site- and Trimester-Specific Reference Intervals for Thyroid Function tests in . Thyroid, 2019:29:3:412-420. Jarrod E, et al. 2017 Guidelines of the [place] [employer] for the Diagnosis and Management of Thyroid Disease during and the . Thyroid, 2017:27:3:315-389. Performed By: #### 3 016-3, 3024-7, 3056 ####[facility] LABORATORYCLIA [id number] [place] [address] [place] CNCNPATEDon 08-30-2024 CNCNPATED Normal [facility] CNOVon 08-30-2024 CNOV Normal [facility] ECG COMPLETEon 08-30-2024 ECG COMPLETE Normal [facility] HOLTER MONITOR 24 HOURon HOLTER MONITOR 24 HOUR Normal [facility] CNPTOUTREACHon 08-28-2024 CNPTOUTREACH Normal [facility] CBC W Auto Differential pane l (Bld)on 08-24-2024 Basophils (Bld) [#/Vol] 0.05 10*3/uL Normal <0.11 [facility] Comment on above: Order Comment: Speci men Type: BLOOD SPECIMENOrdering Facility: [facility] Address: [address] [place] [address] Performed By: #### 5 7021-8 ####ELISA COUNT INCLUDES [facility] LABORATORYCLIA [id number] [place] [address] [place] Basophils/100 WBC (Bld) 1.1 % Normal [facility] Comment on above: Order Comment: Speci men Type: BLOOD SPECIMENOrdering Facility: [facility] Address: [address] [place] [address] Performed By: #### 5 7021-8 ####ELISA COUNT INCLUDES [facility] LABORATORYCLIA [id number] [place] [address] [place] Differential cell count method Nom (Bld) Auto Normal [facility] Comment on above: Order Comment: Speci men Type: BLOOD SPECIMENOrdering Facility: [facility] Address: [address] [place] [address] Performed By: #### 5 7021-8 ####ELISA COUNT INCLUDES [facility] LABORATORYCLIA [id number] [place] [address] [place] Eosinophils (Bld) [#/Vol] 0.06 10*3/uL Normal <0.46 [facility] Comment on above: Order Comment: Speci men Type: BLOOD SPECIMENOrdering Facility: [facility] Address: [address] [place] [address] Performed By: #### 5 7021-8 ####NIKOLAIARPAN COUNT INCLUDES [facility] LABORATORYCLIA [id number] [place] [address] [place] Eosinophils/100 WBC (Bld) 1.3 % Normal [facility] Comment on above: Order Comment: Speci men Type: BLOOD SPECIMENOrdering Facility: [facility] Address: [address] [place] [address] Performed By: #### 5 7021-8 ####NIKOLAIOVIDIO COUNT INCLUDES [facility] LABORATORYIA [id number] [place] [address] [place] Erythrocyte distribution width (RBC) [Ratio] 12.8 % Normal 11.5-15.0 [facility] Comment on above: Order Comment: Speci men Type: BLOOD SPECIMENOrdering Facility: [facility] Address: [address] [place] [address] Performed By: #### 5 7021-8 ####ELISA COUNT INCLUDES [facility] LABORATORYIA [id number] [place] [address] [place] Hematocrit (Bld) [Volume fraction] 44.1 % Normal 36.0-46.0 [facility] Comment on above: Order Comment: Speci men Type: BLOOD SPECIMENOrdering Facility: [facility] Address: [address] [place] [address] Performed By: #### 5 7021-8 ####ELISA COUNT INCLUDES [facility] LABORATORYIA [id number] [place] [address] [place] Hemoglobin (Bld) [Mass/Vol] 15.4 g/dL Normal 11.5-15.5 [facility] Comment on above: Order Comment: Speci men Type: BLOOD SPECIMENOrdering Facility: [facility] Address: [address] [place] [address] Performed By: #### 5 7021-8 ####ELISA COUNT INCLUDES [facility] LABORATORYIA [id number] [place] [address] [place] Immature granulocytes (Bld) [#/Vol] 10*3/uL Normal <0.10 [facility] Comment on above: Order Comment: Speci men Type: BLOOD SPECIMENOrdering Facility: [facility] Address: [address] [place] [address] Performed By: #### 5 7021-8 ####ELISA COUNT INCLUDES [facility] LABORATORYCLIA [id number] [place] [address] [place] Immature granulocytes/100 WBC (Bld) 0.4 % Normal [facility] Comment on above: Order Comment: Speci men Type: BLOOD SPECIMENOrdering Facility: [facility] Address: [address] [place] [address] Performed By: #### 5 7021-8 ####NIKOLAIOVIDIO COUNT INCLUDES [facility] LABORATORYCLIA [id number] [place] [address] [place] Lymphocytes (Bld) [#/Vol] 1.30 10*3/uL Normal 1.00-4.00 [facility] Comment on above: Order Comment: Speci men Type: BLOOD SPECIMENOrdering Facility: [facility] Address: [address] [place] [address] Performed By: #### 5 7021-8 ####ELISA COUNT INCLUDES [facility] LABORATORYCLIA [id number] [address] [place] Lymphocytes/100 WBC (Bld) 28.3 % Normal [facility] Comment on above: Order Comment: Speci men Type: BLOOD SPECIMENOrdering Facility: [facility] Address: [address] [place] [address] Performed By: #### 5 7021-8 ####NIKOLAIOVIDIO COUNT INCLUDES [facility] LABORATORYCLIA [id number] [place] [address] [place] MCH (RBC) [Entitic mass] 30.4 pg Normal 26.0-34.0 [facility] Comment on above: Order Comment: Speci men Type: BLOOD SPECIMENOrdering Facility: [facility] Address: [address] [place] [address] Performed By: #### 5 7021-8 ####NIKOLAIARPAN COUNT INCLUDES [facility] LABORATORYCLIA [id number] [address] STATES [facility] MCHC (RBC) [Mass/Vol] 34.9 g/dL Normal 30.5-36.0 [facility] Comment on above: Order Comment: Speci men Type: BLOOD SPECIMENOrdering Facility: [facility] Address: [address] [place] [address] Performed By: #### 5 7021-8 ####ELISA COUNT INCLUDES [facility] LABORATORYIA [id number] [place] [address] [place] MCV (RBC) [Entitic vol] 87.2 fL Normal 80.0-100.0 [facility] Comment on above: Order Comment: Speci men Type: BLOOD SPECIMENOrdering Facility: [facility] Address: [address] [place] [address] Performed By: #### 5 7021-8 ####ELISA COUNT INCLUDES [facility] LABORATORYIA [id number] [place] [address] [place] Monocytes (Bld) [#/Vol] 0.34 10*3/uL Normal <0.87 [facility] Comment on above: Order Comment: Speci men Type: BLOOD SPECIMENOrdering Facility: [facility] Address: [address] [place] [address] Performed By: #### 5 7021-8 ####YAIRARPAN COUNT INCLUDES [facility] LABORATORYIA [id number] [place] [address] [place] Monocytes/100 WBC (Bld) 7.4 % Normal [facility] Comment on above: Order Comment: Speci men Type: BLOOD SPECIMENOrdering Facility: [facility] Address: [address] [place] [address] Performed By: #### 5 7021-8 ####YAIRARPAN COUNT INCLUDES [facility] LABORATORYIA [id number] [place] [address] [place] Neutrophils (Bld) [#/Vol] 2.82 10*3/uL Normal 1.45-7.50 [facility] Comment on above: Order Comment: Speci men Type: BLOOD SPECIMENOrdering Facility: [facility] Address: [address] [place] [address] Performed By: #### 5 7021-8 ####YAIRARPAN COUNT INCLUDES [facility] LABORATORYIA [id number] [place] [address] [place] Neutrophils/100 WBC (Bld) 61.5 % Normal [facility] Comment on above: Order Comment: Speci men Type: BLOOD SPECIMENOrdering Facility: [facility] Address: [address] [place] [address] Performed By: #### 5 7021-8 ####NIKOLAIOVIDIO COUNT INCLUDES [facility] LABORATORYCLIA [id number] [place] [address] [place] Nucleated RBC (Bld) [#/Vol] 10*3/uL Normal <0.01 [facility] Comment on above: Order Comment: Speci men Type: BLOOD SPECIMENOrdering Facility: [facility] Address: [address] [place] [address] Performed By: #### 5 7021-8 ####ELISA COUNT INCLUDES [facility] LABORATORYIA [id number] [address] Nucleated RBC/100 WBC (Bld) [Ratio] 0.0 /100 WBC Normal [facility] Comment on above: Order Comment: Speci men Type: BLOOD SPECIMENOrdering Facility: [facility] Address: [address] [place] [address] Performed By: #### 5 7021-8 ####NIKOLAIOVIDIO COUNT INCLUDES [facility] LABORATORYIA [id number] [address] [place] Platelet mean volume (Bld) [Entitic vol] 9.9 fL Normal 9.0-12.7 [facility] Comment on above: Order Comment: Speci men Type: BLOOD SPECIMENOrdering Facility: [facility] Address: [address] [place] [address] Performed By: #### 5 7021-8 ####ELISA COUNT INCLUDES [facility] LABORATORYIA [id number] [place] [address] [place] Platelets (Bld) [#/Vol] 287 10*3/uL Normal 150-400 [facility] Comment on above: Order Comment: Speci men Type: BLOOD SPECIMENOrdering Facility: [facility] Address: [address] [place] [address] Performed By: #### 5 7021-8 ####NIKOLAIARPAN COUNT INCLUDES [facility] LABORATORYCLIA [id number] [place] [address] [place] [facility] RBC (Bld) [#/Vol] 5.06 10*6/uL Normal 3.90-5.20 [facility] Comment on above: Order Comment: Speci men Type: BLOOD SPECIMENOrdering Facility: [facility] Address: [address] [place] [address] Performed By: #### 5 7021-8 ####NIKOLAIARPAN COUNT INCLUDES [facility] LABORATORYCLIA [id number] [address] [facility] WBC (Bld) [#/Vol] 4.59 10*3/uL Normal 3.70-11.00 [facility] Comment on above: Order Comment: Speci men Type: BLOOD SPECIMENOrdering Facility: [facility] Address: [address] [place] [address] Performed By: #### 5 7021-8 ####NIKOLAIARPAN COUNT INCLUDES [facility] LABORATORYCLIA [id number] [address] [place] CK SerPl-cCncon 08-24-2024 CK [Catalytic activity/Vol] 33 U/L Low 42-196 [facility] Comment on above: Order Comment: Speci men Type: BLOOD SPECIMENOrdering Facility: [facility] Address: [address] [place] [address] Performed By: #### 2 157-6, 42498-1, [id number], 64956-2 ####NIKOLAIOVIDIO COUNT INCLUDES [facility] LABORATORYCLIA [id number] [place] [address] [place] Comprehensive metabolic 2000 panelon 08-24-2024 Albumin [Mass/Vol] 4.5 g/dL Normal 3.9-4.9 [facility] Comment on above: Order Comment: Speci men Type: BLOOD SPECIMENOrdering Facility: [facility] Address: [address] [place] [address] Performed By: #### 2 157-6, 09462-3, [id number], 20026-5 ####ELISA COUNT INCLUDES [facility] LABORATORYCLIA [id number] [place] [address] [place] ALP [Catalytic activity/Vol] 66 U/L Normal 34-123 [facility] Comment on above: Order Comment: Speci men Type: BLOOD SPECIMENOrdering Facility: [facility] Address: [address] [place] [address] Performed By: #### 2 157-6, 75335-9, [id number], ####NIKOLAIOVIDIO COUNT INCLUDES [facility] LABORATORYCLIA [id number] [place] [address] [place] ALT [Catalytic activity/Vol] 24 U/L Normal 7-38 [facility] Comment on above: Order Comment: Speci men Type: BLOOD SPECIMENOrdering Facility: [facility] Address: [address] [place] [address] Performed By: #### 2 157-6, 05912-7, [id number], ####NIKOLAIOVIDIO COUNT INCLUDES [facility] LABORATORYCLIA [id number] [place] [address] [place] Anion gap [Moles/Vol] 10 mmol/L Normal 8-15 [facility] Comment on above: Order Comment: Speci men Type: BLOOD SPECIMENOrdering Facility: [facility] Address: [address] [place] [address] Performed By: #### 2 157-6, 95568-5, [id number], ####ELISA COUNT INCLUDES [facility] LABORATORYCLIA [id number] [place] [address] [place] AST [Catalytic activity/Vol] 26 U/L Normal 13-35 [facility] Comment on above: Order Comment: Speci men Type: BLOOD SPECIMENOrdering Facility: [facility] Address: [address] [place] [address] Performed By: #### 2 157-6, 55216-5, [id number], 83695-4 ####ELISA COUNT INCLUDES [facility] LABORATORYCLIA [id number] [place] [address] [place] Bilirubin [Mass/Vol] 0.3 mg/dL Normal 0.2-1.[address] [facility] Comment on above: Order Comment: Speci men Type: BLOOD SPECIMENOrdering Facility: [facility] Address: [address] [place] [address] Performed By: #### 2 157-6, 26785-5, [id number], ####ELISA COUNT INCLUDES [facility] LABORATORYCLIA [id number] [place] [address] [place] Calcium [Mass/Vol] 9.3 mg/dL Normal 8.5-10.2 [facility] Comment on above: Order Comment: Speci men Type: BLOOD SPECIMENOrdering Facility: [facility] Address: [address] [place] [address] Performed By: #### 2 157-6, 37560-0, [id number], ####ELISA COUNT INCLUDES [facility] LABORATORYCLIA [id number] [place] [address] [place] Chloride [Moles/Vol] 106 mmol/L Normal 98-[address] [facility] Comment on above: Order Comment: Speci men Type: BLOOD SPECIMENOrdering Facility: [facility] Address: [address] [place] [address] Performed By: #### 2 157-6, 60373-3, [id number], ####ELISA COUNT INCLUDES [facility] LABORATORYCLIA [id number] [place] [address] [place] CO2 [Moles/Vol] 24 mmol/L Normal 22-30 [facility] Comment on above: Order Comment: Speci men Type: BLOOD SPECIMENOrdering Facility: [facility] Address: [address] [place] [address] Performed By: #### 2 157-6, 38952-9, [id number], ####ELISA COUNT INCLUDES [facility] LABORATORYCLIA [id number] [place] [address] [place] Creatinine [Mass/Vol] 0.70 mg/dL Normal 0.58-0.96 [facility] Comment on above: Order Comment: Nataly saenz Type: BLOOD SPECIMENOrdering Facility: [facility] Address: [address] [place] [address] Performed By: #### 2 157-6, 52598-9, [id number], 30094-2 ####ELISA COUNT INCLUDES [facility] LABORATORYCLIA [id number] [place] [address] [facility] [place] Creatinine and Glomerular filtration rate.predicted panel (S/P/Bld) 122 mL/min/1.73m??? Normal >=60 [facility] Comment on above: Order Comment: Nataly saenz Type: BLOOD SPECIMENOrdering Facility: [facility] Address: [address] [place] [address] Result Comment: Sveta mated Glomerular Filtration Rate (eGFR) is calculated using the 2020 CKD-EPI creatinine equation. This equation utilizes serum creatinine, sex, and age as parameters. The creatinine assay has traceable calibration to isotope dilution-mass spectrometry. Refer to KDIGO guidelines for clinical interpretation. In patients with unstable renal function, e.g. those with acute kidney injury, the eGFR may not accurately reflect actual GFR. Performed By: #### 2 157-6, 65526-5, XCS0013, 65729-1 ####ELISA COUNT INCLUDES THE [facility] LABORATORYCLIA [id number] [place] [id number] [place] Glucose [Mass/Vol] 142 mg/dL High 74-99 [facility] Comment on above: Order Comment: Nataly saenz Type: BLOOD SPECIMENOrdering Facility: [facility] Address: [address] [place] [address] Result Comment: The [place] [employer] (ADA) provides guidance for cutoff values for fasting glucose and random glucose. The ADA defines fasting as no caloric intake for at least 8 hours. Fasting plasma glucose results between 100 to 125 mg/dL indicate increased risk for diabetes (prediabetes).Fasting plasma glucose results greater than or equal to 126 mg/dL meet the criteria for diagnosis of diabetes. In the absence of unequivocal hyperglycemia, results should be confirmed by repeat testing. In a patient with classic symptoms of hyperglycemia or hyperglycemic crisis, random plasma glucose results greater than or equal to 200 mg/dL meet the criteria for diagnosis of diabetes.Reference: Standards of Medical Care in Diabetes 2016, [place] [employer]. Diabetes Care. 2016.39(Suppl 1). Performed By: #### 2 157-6, 13946-8, [id number], ####NIKOLAIOVIDIO COUNT INCLUDES THE [facility] LABORATORYCLIA [id number] [place] [address] [place] Potassium [Moles/Vol] 3.8 mmol/L Normal 3.7-5.1 [facility] Comment on above: Order Comment: Speci men Type: BLOOD SPECIMENOrdering Facility: [facility] Address: [address] [place] [address] Performed By: #### 2 157-6, 14452-3, [id number], ####NKIOLAIARPAN COUNT INCLUDES THE [facility] LABORATORYCLIA [id number] [place] [address] [place] Protein [Mass/Vol] 6.7 g/dL Normal 6.3-8.0 [facility] Comment on above: Order Comment: Speci men Type: BLOOD SPECIMENOrdering Facility: [facility] Address: [address] [place] [address] Performed By: #### 2 157-6, 29169-7, [id number], ####NIKOLAIARPAN COUNT INCLUDES THE [facility] LABORATORYCLIA [id number] [place] [address] [place] Sodium [Moles/Vol] 140 mmol/L Normal 136-144 [facility] Comment on above: Order Comment: Speci men Type: BLOOD SPECIMENOrdering Facility: [facility] Address: [address] [place] [address] Performed By: #### 2 157-6, 64607-1, [id number], ####NIKOLAIARPAN COUNT INCLUDES THE [facility] LABORATORYCLIA [id number] [place] [address] [place] Urea nitrogen [Mass/Vol] 14 mg/dL Normal 7-21 [facility] Comment on above: Order Comment: Speci men Type: BLOOD SPECIMENOrdering Facility: [facility] Address: [address] [place] [address] Performed By: #### 2 157-6, 00274-2, [id number], 95558-0 ####ELISA COUNT INCLUDES THE [facility] LABORATORYCLIA [id number] [address] D dimer FEU PPP-mCncon 08-24 Fibrin D-dimer FEU (PPP) [Mass/Vol] <190 Normal <500 [facility] Comment on above: Order Comment: Speci men Type: BLOOD SPECIMENOrdering Facility: [facility] Address: [address] [place] [address] Performed By: #### 4 8065-7, 46951-4 ####ELISA COUNT INCLUDES THE [facility] LABORATORYCLIA [id number] [address] [place] ERR46ir 08-24-2024 ECG01 Normal [facility] ED NOTEon 08-24-2024 ED NOTE HNO ID: [id number] Author: ROYER BELLAMY RN Service: Emergency Medicine Author Type: Registered Nurse Type: ED Notes Filed: 09/05/2024 19:55 Note Text: 1951 Chart accessed to complete call-back process. Normal [facility] ED NOTE Normal [facility] ED NOTE HNO ID: [id number] Author: JESSICA THOMPSON RN Service: Emergency Medicine Author Type: Registered Nurse Type: ED Notes Filed: 08/24/2024 14:51 Note Text: When assisting patient to bathroom she c/o nausea, and small liquid emesis. Physician aware. Normal [facility] ED NOTE Normal [facility] ED PROV NOTEon 08-24-2024 ED PROV NOTE Normal [facility] HIGH SENSITIVITY TROPONIN T (INITIAL)on 08-24-2024 Troponin T.cardiac High sensitivity method [Mass/Vol] <6 Normal <12 [facility] Comment on above: Order Comment: Speci men Type: BLOOD SPECIMENOrdering Facility: [facility] Address: [address] [place] [address] Performed By: #### 2 157-6, 10070-1, [id number], 13961-5 ####ELISA COUNT INCLUDES THE [facility] LABORATORYCLIA [id number] [place] [address] [place] HIGH SENSITIVITY TROPONIN T (SECOND)on 08-24-2024 Troponin T.cardiac High sensitivity method [Mass/Vol] 16 ng/L High <12 [facility] Comment on above: Order Comment: Speci men Type: BLOOD SPECIMENOrdering Facility: [facility] Address: [address] [place] [address] Performed By: #### L [id number] ####ELISA COUNT INCLUDES THE [facility] LABORATORYCLIA [id number] [address] HIGH SENSITIVITY TROPONIN T (THIRD) 3 HRS AFTER INITIALon 08-24-2024 Troponin T.cardiac High sensitivity method [Mass/Vol] 11 ng/L Normal <12 [facility] Comment on above: Order Comment: Speci men Type: BLOOD SPECIMENOrdering Facility: [facility] Address: [address] [place] [address] Performed By: #### L [id number] ####ELISA COUNT INCLUDES THE [facility] LABORATORYCLIA [id number] [place] [address] [place] Magnesium SerPl-mCncon 08-24 Magnesium [Mass/Vol] 2.0 mg/dL Normal 1.7-2.[address] [facility] Comment on above: Order Comment: Speci men Type: BLOOD SPECIMENOrdering Facility: [facility] Address: [address] [place] [address] Performed By: #### 2 157-6, 25125-8, [id number], 35229-2 ####YAIRARPAN COUNT INCLUDES THE [facility] LABORATORYCLIA [id number] [place] [address] [place] PT panel Coag (PPP)on 2024 INR Coag (PPP) [Relative time] 1.0 {INR} Normal 0.9-1.3 [facility] Comment on above: Order Comment: Speci men Type: BLOOD SPECIMENOrdering Facility: [facility] Address: [address] [place], [place] [id number] Result Comment: Lauren min K Antagonist (VKA) Therapeutic Range: INR 2 to 3 (Target INR of 2.5)Note: For patients treated with VKA drugs, such as warfarin, the [place] [employer] 2012 Guideline recommends a therapeutic INR range of 2 to 3 (target INR of 2.5). This recommendation includes high-risk patients with antiphospholipid syndrome with previous arterial or venous thromboembolism, current-generation mechanical or bioprosthetic aortic heart valve replacement.Note: Patients with mechanical aortic valve replacement and additional risk factors for thromboembolic events (atrial fibrillation, previous thromboembolism, LV dysfunction, hypercoagulable conditions) or an older generation mechanical AVR (i.e., ball in-Cage) or any mechanical MVR should have a INR therapeutic range of 2.5 to 3.5 (target INR of 3).Jeri GH, et al. Chest 2012, 141:7S-47SNishimleti RA, et al. [facility] 2017, 70: 252-289 Performed By: #### 4 8065-7, 52551-3 ####ELISA COUNT INCLUDES THE [facility] LABORATORYCLIA [id number] [place] [address] [place] PT Coag (PPP) [Time] 11.1 s Normal 9.7-13.[address] [facility] Comment on above: Order Comment: Nataly saenz Type: BLOOD SPECIMENOrdering Facility: [facility] Address: [address] [place] [address] Performed By: #### 4 8065-7, 37220-9 ####[facility], ROSWELLARPAN COUNT INCLUDES THE [facility] LABORATORYCLIA [id number] [place] [address] [place] TSH SerPl-aCncon 08-24-2024 TSH Qn 2.030 m[IU]/L Normal 0.270-4.200 [facility] Comment on above: Order Comment: Nataly saenz Type: BLOOD SPECIMENOrdering Facility: [facility] Address: [address] [place] [address] Result Comment: If t he patient is , TSH reference range varies by gestational period:First Trimester (weeks 9-12): 0.180-2.990 mIU/LSecond Trimester: 0.110-3.980 mIU/LThird Trimester: 0.480-4.710 mIU/Jenifer Douglas et al. A Practical Approach for the Verifications and Determination of Site- and Trimester-Specific Reference Intervals for Thyroid Function tests in . Thyroid, 2019:29:3:412-420. Jarrod E, et al. 2017 Guidelines of the [place] Thyroid Association for the Diagnosis and Management of Thyroid Disease during and the . Thyroid, 2017:27:3:315-389. Performed By: #### 3 016-3 ####ELISA COUNT INCLUDES THE [facility] LABORATORYCLIA [id number] [place] [address] [place] ALLIED HEALTHon 08-20-2024 ALLIED HEALTH Normal [facility] Basic metabolic 2000 panelon 08-20-2024 Anion gap [Moles/Vol] 6 mmol/L Low 8-15 [facility] Comment on above: Order Comment: Speci men Type: BLOOD SPECIMENOrdering Facility: [facility] Address: [address] [place] [address] Performed By: #### 2 4321-2 ####[facility] LABCLIA [id number] [place] [id number] [place] Calcium [Mass/Vol] 9.6 mg/dL Normal 8.5-10.2 [facility] Comment on above: Order Comment: Speci men Type: BLOOD SPECIMENOrdering Facility: [facility] Address: [address] [place] [address] Performed By: #### 2 4321-2 ####[facility] LABCLIA [id number] [place] [address] [place] Chloride [Moles/Vol] 106 mmol/L Normal 98-107 [facility] Comment on above: Order Comment: Speci men Type: BLOOD SPECIMENOrdering Facility: [facility] Address: [address] [place] [address] Performed By: #### 2 4321-2 ####[facility] LABCLIA [id number] [place] [address] [place] CO2 [Moles/Vol] 29 mmol/L Normal 22-30 [facility] Comment on above: Order Comment: Speci dany Type: BLOOD SPECIMENOrdering Facility: [facility] Address: [address] [place] [address] Performed By: #### 2 4321-2 ####[facility] LABCLIA [id number] [place] [address] [place] Creatinine [Mass/Vol] 0.84 mg/dL Normal 0.58-0.96 [facility] Comment on above: Order Comment: Speci men Type: BLOOD SPECIMENOrdering Facility: [facility] Address: [address] [place] [address] Result Comment: Use of this assay is not recommended for patients undergoing treatment with phenindione, due to the potential for falsely depressed results. Performed By: #### 2 4321-2 ####[facility] LABCLIA [id number] [place] [id number] [facility] Creatinine and Glomerular filtration rate.predicted panel (S/P/Bld) 98 mL/min/1.73m??? Normal >=60 [facility] Comment on above: Order Comment: Gregi dany Type: BLOOD SPECIMENOrdering Facility: [facility] Address: [address] [place] [address] Result Comment: Sveta mated Glomerular Filtration Rate (eGFR) is calculated using the 2020 CKD-EPI creatinine equation. This equation utilizes serum creatinine, sex, and age as parameters. The creatinine assay has traceable calibration to isotope dilution-mass spectrometry. Refer to KDIGO guidelines for clinical interpretation. In patients with unstable renal function, e.g. those with acute kidney injury, the eGFR may not accurately reflect actual GFR. Performed By: #### 2 4321-2 ####[facility] LABCLIA [id number] [place] [address] [place] Glucose [Mass/Vol] 94 mg/dL Normal 74-99 [facility] Comment on above: Order Comment: Gregi dany Type: BLOOD SPECIMENOrdering Facility: [facility] Address: [address] [place] [address] Result Comment: The [place] Diabetes Association (ADA) provides guidance for cutoff values for fasting glucose and random glucose. The ADA defines fasting as no caloric intake for at least 8 hours. Fasting plasma glucose results between 100 to 125 mg/dL indicate increased risk for diabetes (prediabetes).Fasting plasma glucose results greater than or equal to 126 mg/dL meet the criteria for diagnosis of diabetes. In the absence of unequivocal hyperglycemia, results should be confirmed by repeat testing. In a patient with classic symptoms of hyperglycemia or hyperglycemic crisis, random plasma glucose results greater than or equal to 200 mg/dL meet the criteria for diagnosis of diabetes.Reference: Standards of Medical Care in Diabetes 2016, [place] [employer]. Diabetes Care. 2016.39(Suppl 1). Performed By: #### 2 4321-2 ####[facility] LABCLIA [id number] [place] [address] [place] Potassium [Moles/Vol] 3.6 mmol/L Low 3.7-5.1 [facility] Comment on above: Order Comment: Speci men Type: BLOOD SPECIMENOrdering Facility: [facility] Address: [address] [place] [address] Performed By: #### 2 4321-2 ####[facility] LABCLIA [id number] [place] [address] [place] Sodium [Moles/Vol] 141 mmol/L Normal 136-144 [facility] Comment on above: Order Comment: Speci men Type: BLOOD SPECIMENOrdering Facility: [facility] Address: [address] [place] [address] Performed By: #### 2 4321-2 ####[facility] LABCLIA [id number] [place] [address] [place] Urea nitrogen [Mass/Vol] 8 mg/dL Normal 7-21 [facility] Comment on above: Order Comment: Speci men Type: BLOOD SPECIMENOrdering Facility: [facility] Address: [address] [place] [id number] Performed By: #### 2 4321-2 ####[facility] LABCLIA [id number] [place] [address] [place] CNTHERAPYon 08-20-2024 CNTHERAPY Normal [facility] D dimer FEU PPP-mCncon 08-20 Fibrin D-dimer FEU (PPP) [Mass/Vol] <190 Normal <500 [facility] Comment on above: Order Comment: Speci men Type: BLOOD SPECIMENOrdering Facility: [facility] Address: [address] [place] [address] Performed By: #### 4 8065-7 ####[facility] LABCLIA [id number] [place] [address] [place] ECG COMPLETEon 08-20-2024 ECG COMPLETE Normal [facility] ED NOTEon 08-20-2024 ED NOTE Normal [facility] ED NOTE HNO ID: [id number] Author: CURT RIDER RN Service: Emergency Medicine Author Type: Registered Nurse Type: ED Notes Filed: 08/20/2024 15:43 Note Text: Dr Green at bedside Normal [facility] ED NOTE HNO ID: [id number] Author: CURT RIDER RN Service: Emergency Medicine Author Type: Registered Nurse Type: ED Notes Filed: 08/20/2024 15:42 Note Text: Normal [facility] ED PROV NOTEon 08-20-2024 ED PROV NOTE Normal [facility] HCG Preg Ur Qlon 08-20-2024 HCG ( test) Ql (U) Negative Normal Negative [facility] Comment on above: Order Comment: Speci men Type: URINE SPECIMENOrdering Facility: [facility] Address: [address] [place] [address] Result Comment: This test is intended to aid in the early detection of . Very dilute urine samples, as indicated by a low specific gravity, may not contain collections representative levels of hCG. This test detects intact hCG only. This test does not reliably detect hCG degradation products, including free-beta subunit and beta-core fragment. Therefore, this test may show reduced reactivity in urine after 8 weeks gestation. A number of conditions other than , including trophoblastic disease and certain non-trophoblastic neoplasms cause elevated levels of hCG. As with any assay employing mouse antibodies, the possibility exists for interference by human anti-mouse antibodies (HAMA) in the specimen. The test provides a presumptive diagnosis for . Performed By: #### 2 106-3 ####[facility] LABCLIA [id number] [place] [address] [facility] [place] HIGH SENSITIVITY TROPONIN Io n 08-20-2024 Tropinin I.cardiac panel High sensitivity method <2.0 Normal <=20.7 [facility] Comment on above: Order Comment: Speci men Type: BLOOD SPECIMENOrdering Facility: [facility] Address: [address] [place] [address] Performed By: #### H STROP ####[facility] LABCLIA [id number] [place] [address] [place] XR CHEST 1V FRONTALon 2024 XR CHEST 1V FRONTAL Normal [facility] CNOVon 08-17-2024 CNOV Normal [facility] CNPNon 08-16-2024 CNPN Normal [facility] CNTHERAPYon 08-15-2024 CNTHERAPY Normal [facility] THERAPY NTon 08-15-2024 THERAPY NT Normal [facility] CNTHERAPYon 08-14-2024 CNTHERAPY Normal [facility] THERAPY NTon 08-14-2024 THERAPY NT Normal [facility] CNNURSEon 08-07-2024 CNNURSE Normal [facility] CNOVon 08-07-2024 CNOV Normal [facility] CNOV Normal [facility] [id number] 08-06-2024 [id number] Normal [facility] CNTHERAPYon 08-06-2024 CNTHERAPY Normal [facility] THERAPY NTon 08-06-2024 THERAPY NT Normal [facility] CNOVon 07-30-2024 CNOV Normal [facility] CNOVon 07-26-2024 CNOV Normal [facility] Comprehensive metabolic 2000 panelon 07-26-2024 Albumin [Mass/Vol] 4.8 g/dL Normal 3.9-4.9 [facility] Comment on above: Order Comment: Speci men Type: BLOOD SPECIMENOrdering Facility: [facility] Address: [address] [place] [address] Performed By: #### 2 4323-8 ####[facility]ATORYCLIA [id number] [address] [place] ALP [Catalytic activity/Vol] 79 U/L Normal 34-123 [facility] Comment on above: Order Comment: Speci men Type: BLOOD SPECIMENOrdering Facility: [facility] Address: [address] [place] [address] Performed By: #### 2 4323-8 ####[facility] LABORATORYCLIA [id number] [address] [place] ALT With P-5'-P [Catalytic activity/Vol] 28 U/L Normal 7-38 [facility] Comment on above: Order Comment: Speci men Type: BLOOD SPECIMENOrdering Facility: [facility] Address: [address] [place] [address] Performed By: #### 2 4323-8 ####[facility] LABORATORYCLIA [id number] [address] [facility] Anion gap [Moles/Vol] 11 mmol/L Normal 8-15 [facility] Comment on above: Order Comment: Speci men Type: BLOOD SPECIMENOrdering Facility: [facility] Address: [address] [place] [address] Performed By: #### 2 4323-8 ####[facility] LABORATORYCLIA [id number] [place] [address] [place] AST With P-5'-P [Catalytic activity/Vol] 27 U/L Normal 13-35 [facility] Comment on above: Order Comment: Speci men Type: BLOOD SPECIMENOrdering Facility: [facility] Address: [address] [place] [address] Performed By: #### 2 4323-8 ####[facility] LABORATORYCLIA [id number] [place] [address] [place] Bilirubin [Mass/Vol] 0.3 mg/dL Normal 0.2-1.3 [facility] Comment on above: Order Comment: Speci men Type: BLOOD SPECIMENOrdering Facility: [facility] Address: [address] [place] [address] Performed By: #### 2 4323-8 ####[facility] LABORATORYCLIA [id number] [place] [address] [place] Calcium [Mass/Vol] 9.5 mg/dL Normal 8.5-10.2 [facility] Comment on above: Order Comment: Speci men Type: BLOOD SPECIMENOrdering Facility: [facility] Address: [address] [place] [address] Performed By: #### 2 4323-8 ####[facility] LABORATORYCLIA [id number] [place] [address] [place] Chloride [Moles/Vol] 100 mmol/L Normal 98-107 [facility] Comment on above: Order Comment: Speci men Type: BLOOD SPECIMENOrdering Facility: [facility] Address: [address] [place] [address] Performed By: #### 2 4323-8 ####[facility] LABORATORYCLIA [id number] [place] [address] [place] CO2 [Moles/Vol] 27 mmol/L Normal 22-30 [facility] Comment on above: Order Comment: Speci men Type: BLOOD SPECIMENOrdering Facility: [facility] Address: [address] [place] [address] Performed By: #### 2 4323-8 ####[facility] LABORATORYCLIA [id number] [place] [address] [place] Creatinine [Mass/Vol] 0.74 mg/dL Normal 0.58-0.96 [facility] Comment on above: Order Comment: Speci men Type: BLOOD SPECIMENOrdering Facility: [facility] Address: [facility] [place] [address] Performed By: #### 2 4323-8 ####[facility] LABORATORYCLIA [id number] [place] [address] [place] Creatinine and Glomerular filtration rate.predicted panel (S/P/Bld) 115 mL/min/1.73m??? Normal >=60 [facility] Comment on above: Order Comment: Nataly saenz Type: BLOOD SPECIMENOrdering Facility: [facility] Address: [address] [place] [address] Result Comment: Sveta mated Glomerular Filtration Rate (eGFR) is calculated using the 2020 CKD-EPI creatinine equation. This equation utilizes serum creatinine, sex, and age as parameters. The creatinine assay has traceable calibration to isotope dilution-mass spectrometry. Refer to KDIGO guidelines for clinical interpretation. In patients with unstable renal function, e.g. those with acute kidney injury, the eGFR may not accurately reflect actual GFR. Performed By: #### 2 4323-8 ####[facility] LABORATORYCLIA [id number] [place] [address] [place] Glucose [Mass/Vol] 72 mg/dL Low 74-99 [facility] Comment on above: Order Comment: Nataly saenz Type: BLOOD SPECIMENOrdering Facility: [facility] Address: [address] [place] [address] Result Comment: The [place] Diabetes Association (ADA) provides guidance for cutoff values for fasting glucose and random glucose. The ADA defines fasting as no caloric intake for at least 8 hours. Fasting plasma glucose results between 100 to 125 mg/dL indicate increased risk for diabetes (prediabetes).Fasting plasma glucose results greater than or equal to 126 mg/dL meet the criteria for diagnosis of diabetes. In the absence of unequivocal hyperglycemia, results should be confirmed by repeat testing. In a patient with classic symptoms of hyperglycemia or hyperglycemic crisis, random plasma glucose results greater than or equal to 200 mg/dL meet the criteria for diagnosis of diabetes.Reference: Standards of Medical Care in Diabetes 2016, [place] [employer]. Diabetes Care. 2016.39(Suppl 1). Performed By: #### 2 4323-8 ####[facility] LABORATORYCLIA [id number] [place] [address] [place] Potassium [Moles/Vol] 3.9 mmol/L Normal 3.7-5.1 [facility] Comment on above: Order Comment: Nataly saenz Type: BLOOD SPECIMENOrdering Facility: [facility] Address: [address] [place] [address] Performed By: #### 2 4323-8 ####[facility] LABORATORYCLIA [id number] [place] [address] [place] Protein [Mass/Vol] 7.2 g/dL Normal 6.3-8.0 [facility] Comment on above: Order Comment: Speci men Type: BLOOD SPECIMENOrdering Facility: [facility] Address: [address] [place] [address] Performed By: #### 2 4323-8 ####[facility] LABORATORYCLIA [id number] [place] [address] [place] Sodium [Moles/Vol] 138 mmol/L Normal 136-144 [facility] Comment on above: Order Comment: Speci men Type: BLOOD SPECIMENOrdering Facility: [facility] Address: [address] [place] [address] Performed By: #### 2 4323-8 ####[facility] LABORATORYCLIA [id number] [place] [address] [place] Urea nitrogen [Mass/Vol] 9 mg/dL Normal 7-21 [facility] Comment on above: Order Comment: Speci men Type: BLOOD SPECIMENOrdering Facility: [facility] Address: [address] [place] [address] Performed By: #### 2 4323-8 ####[facility] LABORATORYCLIA [id number] [place] [address] [place] HYDROXYPROGESTERONE-17on 17-HYDROXYPROGESTERONE QUANTITATIVE BY HPLC-MS/MS, SERUM OR PLASMA 137.86 ng/dL Normal <=206.00 [facility] Comment on above: Order Comment: Speci men Type: BLOOD SPECIMENOrdering Facility: [facility] Address: [address] [place] [address] Result Comment: INTE RPRETIVE INFORMATION for 17-Hydroxyprogesterone in females:Follicular 15 to 70 ng/dLLuteal 35 to 290 ng/dLREFERENCE INTERVAL: 17-Hydroxyprogesterone Qnt, HPLC-MS/MSAccess complete set of age- and/or gender-specific referenceintervals for this test in the [facility] Test Directory([employer]).This test was developed and its performance characteristicsdetermined by [facility]. It has not been cleared orapproved by the [place] Food and Drug Administration. This test wasperformed in a CLIA certified laboratory and is intended forclinical purposes.Performed By: [facility] [place], [place] [id number] Director: Todd Sellers MD, PhDCLIA Number: [id number] Performed By: #### H PROG ####[facility] Arterial Health InternationalIA [id number] [place] [address] HbA1c (Bld)on 07-26-2024 Average glucose Estimated from glycated hemoglobin (Bld) [Mass/Vol] 88 mg/dL Normal [facility] Comment on above: Order Comment: Speci men Type: BLOOD SPECIMENOrdering Facility: [facility] Address: [address] [place] [address] Result Comment: eAG: (Estimated average glucose) is a calculated value from HgbA1c and is collections representative of the average blood glucose level in the last 2-3 month period. Performed By: #### 5 5454-3 ####[facility] LABCLIA [id number] [address] [place] HbA1c (Bld) [Mass fraction] 4.7 % Normal 4.3-5.6 [facility] Comment on above: Order Comment: Specmarianela saenz Type: BLOOD SPECIMENOrdering Facility: [facility] Address: [address] [place] [address] Result Comment: Amer [place] Diabetes Association guidelines indicate that patients with HgbA1c in the range 5.7-6.4% are at increased risk for development of diabetes, and intervention by lifestyle modification may be beneficial. HgbA1c greater or equal to 6.5% is considered diagnostic of diabetes. Performed By: #### 5 5454-3 ####[facility] LABCLIA [id number] [place] [address] [place] [id number] 07-23-2024 [id number] Normal [facility] CNOVon 07-23-2024 CNOV Normal [facility] CNTHERAPYon 07-19-2024 CNTHERAPY Normal [facility] CNOVon 07-18-2024 CNOV Normal [facility] CK SerPl-cCncon 07-13-2024 CK [Catalytic activity/Vol] 38 U/L Low 42-196 [facility] Comment on above: Order Comment: Speci men Type: BLOOD SPECIMENOrdering Facility: [facility] Address: [address] [place] [address] Performed By: #### 2 157-6 ####[facility] LABORATORYCLIA [id number] [address] OF [facility] CK [Catalytic activity/Vol]o n 07-13-2024 Interpretation and review of laboratory results Abnormal [facility] CNOVon 07-13-2024 CNOV Normal [facility] CREATINE KINASE/CKon 025 CK [Catalytic activity/Vol] 38 U/L Low 42 - 196 U/L [facility] Cyclic citrullinated peptide IgG Qnon 07-13-2024 CCP ANTIBODY IGG QUALITATIVE Negative Normal Negative [facility] Comment on above: Order Comment: Speci men Type: BLOOD SPECIMENOrdering Facility: [facility] Address: [address] [place] [address] Performed By: #### 3 3935-8 ####[facility] LABCLIA [id number] [address] [place] NOAM CONVEYOR TECHNICIAN Ab Ser-aCncon 2024 Ribonucleoprotein extractable nuclear Ab Qn (S) <0.2 Normal <1.0 [facility] Comment on above: Order Comment: Speci men Type: BLOOD SPECIMENOrdering Facility: [facility] Address: [address] [place] [address] Performed By: #### X SSAB, 71770-2 ####[facility] LABCLIA [id number] [address] [place] [address] [place] Rheumatoid fact SerPl-aCncon 07-13-2024 Rheumatoid factor Qn [IU]/mL Normal <16 [facility] Comment on above: Order Comment: Speci men Type: BLOOD SPECIMENOrdering Facility: [facility] Address: [address] [place] [address] Performed By: #### 1 1572-5 ####[facility] [id number] [place] [address] [place] Ribonucleoprotein extractabl e nuclear Ab Qn (S)on 07-13-2024 ANTI-CONVEYOR TECHNICIAN QUAL Negative Normal Negative [facility] Comment on above: Order Comment: Speci men Type: BLOOD SPECIMENOrdering Facility: [facility] Address: [address] [place] [address] Performed By: #### X SSAB, 09230-3 ####[facility] [id number] [address] [place] SJOGREN ABS SSA/SSBon 2024 ANTI-SSB QUAL Negative Normal Negative [facility] Comment on above: Order Comment: Gregi dany Type: BLOOD SPECIMENOrdering Facility: [facility] Address: [address] [place] [address] Result Comment: Anti -SSB (anti-La) antibody is used as an aid in diagnosis of a variety of systemic autoimmune diseases, especially for Sjogren's syndrome and systemic lupus erythematosus. Clinical correlation is required.Test Methodology: Multiplex flow immunoassay. Performed By: #### X SSAB, 32503-5 ####[facility] LABIA [id number] [address] [place] Sjogrens syndrome-A extractable nuclear Ab Qn (S) <0.2 Normal <1.0 [facility] Comment on above: Order Comment: Gregi men Type: BLOOD SPECIMENOrdering Facility: [facility] Address: [address] [place] [address] Performed By: #### X SSAB, 68185-8 ####[facility] LABCLIA [id number] [place] [address] [place] Sjogrens syndrome-B extractable nuclear Ab Qn (S) <0.2 Normal <1.0 [facility] Comment on above: Order Comment: Speci men Type: BLOOD SPECIMENOrdering Facility: [facility] Address: [address] [place] [address] Performed By: #### X SSAB, 95105-7 ####[facility] LABIA [id number] [place] [address] [place] SSA ANTIBODY QUAL Negative Normal Negative [facility] Comment on above: Order Comment: Speci men Type: BLOOD SPECIMENOrdering Facility: [facility] Address: [address] [place] [address] Result Comment: Anti -SSA (anti-Ro) antibody is used as an aid in diagnosis of a variety of systemic autoimmune diseases, Sjogren's syndrome among others. Clinical correlation is required. Test Methodology: Multiplex flow immunoassay.??? \X09\ Performed By: #### X SSAB, 15346-2 ####[facility] LABIA [id number] [place] [address] [place] Urinalysis complete panel (U )on 07-13-2024 Bacteria LM.HPF (Urine sed) [#/Area] Rare Abnormal None Seen /HPF [facility] Bilirubin Ql (U) Negative Negative [facility] Clarity (Unsp spec) Clear Clear [facility] Color (U) Colorless yellow [facility] Epithelial cells LM.HPF (Urine sed) [#/Area] Few /HPF [facility] Glucose Test strip (U) [Mass/Vol] Negative Trace, Negative [facility] Hemoglobin Ql (U) Negative Negative, Trace [facility] Interpretation and review of laboratory results Abnormal [facility] Ketones Ql (U) Negative Negative, Trace [facility] Leukocyte esterase Test strip Ql (U) 25 Vijaya/uL Negative, 25 Vijaya/uL [facility] Nitrite Ql (U) Negative Negative [facility] pH (U) 6.5 [pH] 5.0 - 8.0 [facility] Protein (U) [Mass/Vol] Negative Trace , Negative [facility] RBC LM.HPF (Urine sed) [#/Area] 0-3 /HPF 0-3 /HPF [facility] Specific gravity (U) [Rel density] 1.004 Low 1.005 - 1.030 [facility] Urobilinogen Ql (U) Normal Normal [facility] WBC LM.HPF (Urine sed) [#/Area] 0-5 /HPF 0-5 /HPF [facility] Bacteria LM.HPF (Urine sed) [#/Area] Rare Abnormal None Seen [facility] Comment on above: Order Comment: Speci men Type: URINE SPECIMENOrdering Facility: [facility] Address: [address] [place] [address] Performed By: #### 2 4356-8 ####[facility] LABORATORYCLIA [id number] [address] STATES [facility] Bilirubin Ql (U) Negative Normal Negative [facility] Comment on above: Order Comment: Speci men Type: URINE SPECIMENOrdering Facility: [facility] Address: [address] [place] [address] Performed By: #### 2 4356-8 ####[facility] LABORATORYCLIA [id number] [address] [place] Clarity (Unsp spec) Clear Normal Clear [facility] Comment on above: Order Comment: Speci men Type: URINE SPECIMENOrdering Facility: [facility] Address: [address] [place] [address] Performed By: #### 2 4356-8 ####[facility] LABORATORYCLIA [id number] [address] [place] Color (U) Colorless Normal yellow [facility] Comment on above: Order Comment: Speci men Type: URINE SPECIMENOrdering Facility: [facility] Address: [address] [place] [address] Performed By: #### 2 4356-8 ####[facility] LABORATORYCLIA [id number] [place] [address] [place] Epithelial cells LM.HPF (Urine sed) [#/Area] Few Normal [facility] Comment on above: Order Comment: Speci men Type: URINE SPECIMENOrdering Facility: [facility] Address: [address] [place] [address] Performed By: #### 2 4356-8 ####[facility] LABORATORYCLIA [id number] [address] [place] Glucose Test strip (U) [Mass/Vol] Negative Normal Trace, Negative [facility] Comment on above: Order Comment: Speci men Type: URINE SPECIMENOrdering Facility: [facility] Address: [address] [place] [address] Performed By: #### 2 4356-8 ####[facility] LABORATORYCLIA [id number] [address] STATES [facility] Hemoglobin Ql (U) Negative Normal Negative, Trace [facility] Comment on above: Order Comment: Speci men Type: URINE SPECIMENOrdering Facility: [facility] Address: [address] [place] [address] Performed By: #### 2 4356-8 ####[facility] LABORATORYCLIA [id number] [address] [place] Ketones Ql (U) Negative Normal Negative, Trace [facility] Comment on above: Order Comment: Speci men Type: URINE SPECIMENOrdering Facility: [facility] Address: [address] [place] [address] Performed By: #### 2 4356-8 ####[facility] LABORATORYCLIA [id number] [address] [place] Leukocyte esterase Test strip Ql (U) 25 Vijaya/uL Normal Negative, 25 Vijaya/uL [facility] Comment on above: Order Comment: Speci men Type: URINE SPECIMENOrdering Facility: [facility] Address: [address] [place] [address] Performed By: #### 2 4356-8 ####[facility] LABORATORYCLIA [id number] [place] [address] [place] Nitrite Ql (U) Negative Normal Negative [facility] Comment on above: Order Comment: Speci men Type: URINE SPECIMENOrdering Facility: [facility] Address: [address] [place] [address] Performed By: #### 2 4356-8 ####[facility] LABORATORYCLIA [id number] [address] [place] pH (U) 6.5 [pH] Normal 5.0-8.0 [facility] Comment on above: Order Comment: Speci men Type: URINE SPECIMENOrdering Facility: [facility] Address: [address] [place] [address] Performed By: #### 2 4356-8 ####[facility] LABORATORYCLIA [id number] [address] Protein (U) [Mass/Vol] Negative Normal Trace , Negative [facility] Comment on above: Order Comment: Speci men Type: URINE SPECIMENOrdering Facility: [facility] Address: [address] [place] [address] Performed By: #### 2 4356-8 ####[facility]ITAL[facility]IA [id number] [address] RBC LM.HPF (Urine sed) [#/Area] 0-3 /HPF Normal 0-3 /HPF [facility] Comment on above: Order Comment: Speci men Type: URINE SPECIMENOrdering Facility: [facility] Address: [address] [place] [address] Performed By: #### 2 4356-8 ####[facility] LABORATORYCLIA [id number] [address] [place] Specific gravity (U) [Rel density] 1.004 Low 1.005-1.030 [facility] Comment on above: Order Comment: Speci men Type: URINE SPECIMENOrdering Facility: [facility] Address: [address] [place] [address] Performed By: #### 2 4356-8 ####[facility] LABORATORYCLIA [id number] [address] Urobilinogen Ql (U) Normal Normal Normal [facility] Comment on above: Order Comment: Speci men Type: URINE SPECIMENOrdering Facility: [facility] Address: [address] [place] [address] Performed By: #### 2 4356-8 ####[facility] LABORATORYCLIA [id number] [address] [place] WBC LM.HPF (Urine sed) [#/Area] 0-5 /HPF Normal 0-5 /HPF [facility] Comment on above: Order Comment: Speci men Type: URINE SPECIMENOrdering Facility: [facility] Address: [address] [place] [address] Performed By: #### 2 4356-8 ####[facility] LABORATORYCLIA [id number] [address] [place] XR CERVICAL 2V AP/LATon XR CERVICAL 2V AP/LAT Normal [facility] XR HAND 3V PA/LAT/OBL LTon 0 07-13-2024 XR HAND 3V PA/LAT/OBL LT Normal [facility] XR HAND 3V PA/LAT/OBL RTon 0 07-13-2024 XR HAND 3V PA/LAT/OBL RT Normal [facility] XR LUMBAR 3V AP/LAT/L5-S1on 07-13-2024 XR LUMBAR 3V AP/LAT/L5-S1 Normal [facility] XR SI JTS 2V AP PELV/FERGUSO Non 07-13-2024 XR SI JTS 2V AP PELV/FOSTER Normal [facility] cCP IgG SerPl-aCncon 025 Cyclic citrullinated peptide IgG Qn <15 Normal <20 [facility] Comment on above: Order Comment: Speci men Type: BLOOD SPECIMENOrdering Facility: [facility] Address: [address] [place] [address] Performed By: #### 3 3935-8 ####[facility] LABCLIA [id number] [facility] [id number] [place] 25(OH)D3 SerPl-mCncon 2023 25-hydroxyvitamin D3 [Mass/Vol] 18.1 ng/mL Low 31.0-80.0 [facility] Comment on above: Order Comment: Speci men Type: BLOOD SPECIMENOrdering Facility: [facility] Address: [address] [place] [address] Result Comment: Clas sification of 25 [place] Vitamin D status:Deficiency/Insufficiency: < or = 30 ng/ml.Sufficiency/Optimal Levels: 31-80 ng/mLToxicity: > 100 ng/mL.Test performed by chemiluminescent immunoassay. Performed By: #### 1 989-3 ####[facility] LABCLIA [id number] [place] [address] [place] CBC W Auto Differential pane l (Bld)on 07-09-2024 Basophils (Bld) [#/Vol] 0.05 10*3/uL [facility] Basophils/100 WBC (Bld) 0.9 % [facility] Differential cell count method Nom (Bld) Auto [facility] Eosinophils (Bld) [#/Vol] 0.13 10*3/uL [facility] Eosinophils/100 WBC (Bld) 2.5 % [facility] Erythrocyte distribution width (RBC) [Ratio] 13.2 % 11.5 - 15.0 % [facility] Hematocrit (Bld) [Volume fraction] 49.1 % High 36.0 - 46.0 % [facility] Hemoglobin (Bld) [Mass/Vol] 16.2 g/dL High 11.5 - 15.5 g/dL [facility] Immature granulocytes (Bld) [#/Vol] NINF [facility] Immature granulocytes/100 WBC (Bld) 0.4 % [facility] Interpretation and review of laboratory results Abnormal [facility] Lymphocytes (Bld) [#/Vol] 1.88 10*3/uL [facility] Lymphocytes/100 WBC (Bld) 35.7 % [facility] MCH (RBC) [Entitic mass] 29.8 pg 26.0 - 34.0 pg [facility] MCHC (RBC) [Mass/Vol] 33.0 g/dL 30.5 - 36.0 g/dL [facility] MCV (RBC) [Entitic vol] 90.3 fL 80.0 - 100.0 fL [facility] Monocytes (Bld) [#/Vol] 0.34 10*3/uL [facility] Monocytes/100 WBC (Bld) 6.5 % [facility] Neutrophils (Bld) [#/Vol] 2.85 10*3/uL [facility] Neutrophils/100 WBC (Bld) 54.0 % [facility] Nucleated RBC (Bld) [#/Vol] NINF [facility] Nucleated RBC/100 WBC (Bld) [Ratio] 0.0 % /100 WBC [facility] Platelet mean volume (Bld) [Entitic vol] 11.4 fL 9.0 - 12.7 fL [facility] Platelets (Bld) [#/Vol] 306 10*3/uL [facility] Comment on above: No clot detected. RBC (Bld) [#/Vol] 5.44 10*6/uL High 3.90 - 5.2 0 m/uL [facility] WBC (Bld) [#/Vol] 5.27 10*3/uL [facility] Basophils (Bld) [#/Vol] 0.05 10*3/uL Normal <0.11 [facility] Comment on above: Order Comment: Speci men Type: BLOOD SPECIMENOrdering Facility: [facility] Address: [address] [place] [address] Performed By: #### 5 7021-8 ####[facility] LABCLIA [id number] [place] [address] [place] Basophils/100 WBC (Bld) 0.9 % Normal [facility] Comment on above: Order Comment: Speci men Type: BLOOD SPECIMENOrdering Facility: [facility] Address: [address] [place] [address] Performed By: #### 5 7021-8 ####[facility] LABCLIA [id number] [place] [address] [place] Differential cell count method Nom (Bld) Auto Normal [facility] Comment on above: Order Comment: Speci men Type: BLOOD SPECIMENOrdering Facility: [facility] Address: [address] [place] [address] Performed By: #### 5 7021-8 ####[facility] LABCLIA [id number] [place] [address] [place] Eosinophils (Bld) [#/Vol] 0.13 10*3/uL Normal <0.46 [facility] Comment on above: Order Comment: Speci men Type: BLOOD SPECIMENOrdering Facility: [facility] Address: [address] [place] [address] Performed By: #### 5 7021-8 ####[facility] LABCLIA [id number] [place] [address] [place] Eosinophils/100 WBC (Bld) 2.5 % Normal [facility] Comment on above: Order Comment: Speci men Type: BLOOD SPECIMENOrdering Facility: [facility] Address: [address] [place] [address] Performed By: #### 5 7021-8 ####[facility] LABCLIA [id number] [place] [address] [place] Erythrocyte distribution width (RBC) [Ratio] 13.2 % Normal 11.5-15.0 [facility] Comment on above: Order Comment: Speci men Type: BLOOD SPECIMENOrdering Facility: [facility] Address: [address] [place] [address] Performed By: #### 5 7021-8 ####[facility] LABCLIA [id number] [place] [address] [place] Hematocrit (Bld) [Volume fraction] 49.1 % High 36.0-46.0 [facility] Comment on above: Order Comment: Speci men Type: BLOOD SPECIMENOrdering Facility: [facility] Address: [address] [place] [address] Performed By: #### 5 7021-8 ####[facility] LABCLIA [id number] [place] [address] [place] Hemoglobin (Bld) [Mass/Vol] 16.2 g/dL High 11.5-15.5 [facility] Comment on above: Order Comment: Speci men Type: BLOOD SPECIMENOrdering Facility: [facility] Address: [address] [place] [address] Performed By: #### 5 7021-8 ####[facility] LABCLIA [id number] [place] [address] [place] Immature granulocytes (Bld) [#/Vol] 10*3/uL Normal <0.10 [facility] Comment on above: Order Comment: Speci men Type: BLOOD SPECIMENOrdering Facility: [facility] Address: [address] [place] [address] Performed By: #### 5 7021-8 ####[facility] LABCLIA [id number] [place] [address] [place] Immature granulocytes/100 WBC (Bld) 0.4 % Normal [facility] Comment on above: Order Comment: Speci men Type: BLOOD SPECIMENOrdering Facility: [facility] Address: [address] [place] [address] Performed By: #### 5 7021-8 ####[facility] LABCLIA [id number] [place] [address] [place] Lymphocytes (Bld) [#/Vol] 1.88 10*3/uL Normal 1.00-4.00 [facility] Comment on above: Order Comment: Speci men Type: BLOOD SPECIMENOrdering Facility: [facility] Address: [address] [place] [address] Performed By: #### 5 7021-8 ####[facility] LABCLIA [id number] [place] [address] [place] Lymphocytes/100 WBC (Bld) 35.7 % Normal [facility] Comment on above: Order Comment: Speci men Type: BLOOD SPECIMENOrdering Facility: [facility] Address: [address] [place] [address] Performed By: #### 5 7021-8 ####[facility] [id number] [place] [address] [place] MCH (RBC) [Entitic mass] 29.8 pg Normal 26.0-34.0 [facility] Comment on above: Order Comment: Speci men Type: BLOOD SPECIMENOrdering Facility: [facility] Address: [address] [place] [address] Performed By: #### 5 7021-8 ####[facility] [id number] [place] [address] [place] MCHC (RBC) [Mass/Vol] 33.0 g/dL Normal 30.5-36.0 [facility] Comment on above: Order Comment: Speci men Type: BLOOD SPECIMENOrdering Facility: [facility] Address: [address] [place] [address] Performed By: #### 5 7021-8 ####[facility] [id number] [place] [address] [place] MCV (RBC) [Entitic vol] 90.3 fL Normal 80.0-100.0 [facility] Comment on above: Order Comment: Speci men Type: BLOOD SPECIMENOrdering Facility: [facility] Address: [address] [place] [address] Performed By: #### 5 7021-8 ####[facility] [id number] [place] [address] [place] Monocytes (Bld) [#/Vol] 0.34 10*3/uL Normal <0.87 [facility] Comment on above: Order Comment: Speci men Type: BLOOD SPECIMENOrdering Facility: [facility] Address: [address] [place] [address] Performed By: #### 5 7021-8 ####[facility] LABCLIA [id number] [address] [address] [place] Monocytes/100 WBC (Bld) 6.5 % Normal [facility] Comment on above: Order Comment: Speci men Type: BLOOD SPECIMENOrdering Facility: [facility] Address: [address] [place] [address] Performed By: #### 5 7021-8 ####[facility] LABCLIA [id number] [place] [address] [place] Neutrophils (Bld) [#/Vol] 2.85 10*3/uL Normal 1.45-7.50 [facility] Comment on above: Order Comment: Speci men Type: BLOOD SPECIMENOrdering Facility: [facility] Address: [address] [place] [address] Performed By: #### 5 7021-8 ####[facility] LABCLIA [id number] [place] [address] [place] Neutrophils/100 WBC (Bld) 54.0 % Normal [facility] Comment on above: Order Comment: Speci men Type: BLOOD SPECIMENOrdering Facility: [facility] Address: [address] [place] [address] Performed By: #### 5 7021-8 ####[facility] LABCLIA [id number] [place] [address] [place] Nucleated RBC (Bld) [#/Vol] 10*3/uL Normal <0.01 [facility] Comment on above: Order Comment: Speci men Type: BLOOD SPECIMENOrdering Facility: [facility] Address: [address] [place] [address] Performed By: #### 5 7021-8 ####[facility] LABCLIA [id number] [place] [id number] [place] Nucleated RBC/100 WBC (Bld) [Ratio] 0.0 /100 WBC Normal [facility] Comment on above: Order Comment: Speci men Type: BLOOD SPECIMENOrdering Facility: [facility] Address: [address] [place] [address] Performed By: #### 5 7021-8 ####[facility] LABIA [id number] [place] [address] [place] Platelet mean volume (Bld) [Entitic vol] 11.4 fL Normal 9.0-12.7 [facility] Comment on above: Order Comment: Speci men Type: BLOOD SPECIMENOrdering Facility: [facility] Address: [address] [place] [address] Performed By: #### 5 7021-8 ####[facility] [id number] [place] [address] [place] Platelets (Bld) [#/Vol] 306 10*3/uL Normal 150-400 [facility] Comment on above: Order Comment: Speci men Type: BLOOD SPECIMENOrdering Facility: [facility] Address: [address] [place] [address] Result Comment: No c lot detected. Performed By: #### 5 7021-8 ####[facility] [id number] [place] [address] [place] RBC (Bld) [#/Vol] 5.44 10*6/uL High 3.90-5.20 [facility] Comment on above: Order Comment: Speci men Type: BLOOD SPECIMENOrdering Facility: [facility] Address: [address] [place] [address] Performed By: #### 5 7021-8 ####[facility] LABIA [id number] [place] [address] [place] WBC (Bld) [#/Vol] 5.27 10*3/uL Normal 3.70-11.00 [facility] Comment on above: Order Comment: Speci men Type: BLOOD SPECIMENOrdering Facility: [facility] Address: [address] [place] [address] Performed By: #### 5 7021-8 ####[facility] LABCLIA [id number] [place] [address] [place] CHROMIUM BLOODon 07-09-2024 Chromium (Bld) [Mass/Vol] <0.5 Normal <0.6 [facility] Comment on above: Order Comment: Speci men Type: BLOOD SPECIMENOrdering Facility: [facility] Address: [address] [place] [address] Result Comment: This test was developed, and its performance characteristics determined by the [facility] Department of Pathology and Laboratory Medicine. It has not been cleared or approved by the FDA. The [facility] Department of Pathology and Laboratory Medicine is regulated under CLIA as qualified to perform high-complexity testing. This test is used for clinical purposes. It should not be regarded as investigational or for research. Performed By: #### Hermes BOSTON, CHROM ####[facility] LABCLIA [id number] [place] [address] [place] CNOVon 07-09-2024 CNOV Normal [facility] COPPER BLOODon 07-09-2024 Copper [Mass/Vol] 89 ug/dL Normal 80-155 [facility] Comment on above: Order Comment: Speci men Type: BLOOD SPECIMENOrdering Facility: [facility] Address: [address] [place] [address] Result Comment: This test was developed, and its performance characteristics determined by the [facility] Department of Pathology and Laboratory Medicine. It has not been cleared or approved by the FDA. The [facility] Department of Pathology and Laboratory Medicine is regulated under CLIA as qualified to perform high-complexity testing. This test is used for clinical purposes. It should not be regarded as investigational or for research. Performed By: #### C WANDA, 5763-8 ####[facility] LABCLIA [id number] [place] [address] [place] CRP SerPl-mCncon 07-09-2024 CRP [Mass/Vol] 0.6 mg/dL Normal <0.9 [facility] Comment on above: Order Comment: Speci men Type: BLOOD SPECIMENOrdering Facility: [facility] Address: [address] [place] [address] Performed By: #### 1 988-5, 3016-3, 41584-4, 2276-4 ####[facility] LABCLIA [id number] [place] [address] [place] Comprehensive metabolic 2000 panelon 07-09-2024 Albumin [Mass/Vol] 4.9 g/dL Normal 3.9-4.9 [facility] Comment on above: Order Comment: Speci men Type: BLOOD SPECIMENOrdering Facility: [facility] Address: [address] [place] [address] Performed By: #### 1 988-5, 3016-3, 63576-5, 2275-4 ####[facility] LABCLIA [id number] [place] [address] [place] ALP [Catalytic activity/Vol] 86 U/L Normal 34-123 [facility] Comment on above: Order Comment: Speci men Type: BLOOD SPECIMENOrdering Facility: [facility] Address: [address] [place] [address] Performed By: #### 1 988-5, 3016-3, 86726-1, 2275-4 ####[facility] LABCLIA [id number] [place] [address] [place] ALT [Catalytic activity/Vol] 47 U/L High 7-38 [facility] Comment on above: Order Comment: Speci men Type: BLOOD SPECIMENOrdering Facility: [facility] Address: [address] [place] [address] Performed By: #### 1 988-5, 3016-3, 00735-3, 6-4 ####[facility] LABCLIA [id number] [place] [address] [place] Anion gap [Moles/Vol] 14 mmol/L Normal 8-15 [facility] Comment on above: Order Comment: Speci men Type: BLOOD SPECIMENOrdering Facility: [facility] Address: [address] [place] [address] Performed By: #### 1 988-5, 3016-3, 46631-5, 6-4 ####[facility] LABCLIA [id number] [place] [address] [place] AST [Catalytic activity/Vol] 22 U/L Normal 13-35 [facility] Comment on above: Order Comment: Speci men Type: BLOOD SPECIMENOrdering Facility: [facility] Address: [address] [place] [address] Performed By: #### 1 988-5, 3016-3, 14107-2, 2275-4 ####[facility] LABCLIA [id number] [place] [address] [place] Bilirubin [Mass/Vol] 0.2 mg/dL Normal 0.2-1.[address] [facility] Comment on above: Order Comment: Speci men Type: BLOOD SPECIMENOrdering Facility: [facility] Address: [address] [place] [address] Performed By: #### 1 988-5, 3016-3, 73485-1, 2275-4 ####[facility] LABCLIA [id number] [place] [address] [place] Calcium [Mass/Vol] 9.6 mg/dL Normal 8.5-10.2 [facility] Comment on above: Order Comment: Speci men Type: BLOOD SPECIMENOrdering Facility: [facility] Address: [address] [place] [address] Performed By: #### 1 988-5, 3016-3, 24049-3, 2275-4 ####[facility] LABCLIA [id number] [id number], [place] [address] [place] Chloride [Moles/Vol] 102 mmol/L Normal 98-[address] [facility] Comment on above: Order Comment: Speci men Type: BLOOD SPECIMENOrdering Facility: [facility] Address: [address] [place] [address] Performed By: #### 1 988-5, 3016-3, 45844-2, 2276-4 ####[facility] LABCLIA [id number] [place] [address] [place] CO2 [Moles/Vol] 25 mmol/L Normal 22-30 [facility] Comment on above: Order Comment: Speci men Type: BLOOD SPECIMENOrdering Facility: [facility] Address: [address] [place] [address] Performed By: #### 1 988-5, 3016-3, 58424-8, 2276-4 ####[facility] LABIA [id number] [address] [place] Creatinine [Mass/Vol] 0.80 mg/dL Normal 0.58-0.96 [facility] Comment on above: Order Comment: Speci men Type: BLOOD SPECIMENOrdering Facility: [facility] Address: [address] [place] [address] Performed By: #### 1 988-5, 3016-3, 12036-2, 2276-4 ####[facility] LABIA [id number] [place] [address] [place] Creatinine and Glomerular filtration rate.predicted panel (S/P/Bld) 104 mL/min/1.73m??? Normal >=60 [facility] Comment on above: Order Comment: Speci men Type: BLOOD SPECIMENOrdering Facility: [facility] Address: [address] [place] [address] Result Comment: Sveta mated Glomerular Filtration Rate (eGFR) is calculated using the 2020 CKD-EPI creatinine equation. This equation utilizes serum creatinine, sex, and age as parameters. The creatinine assay has traceable calibration to isotope dilution-mass spectrometry. Refer to KDIGO guidelines for clinical interpretation. In patients with unstable renal function, e.g. those with acute kidney injury, the eGFR may not accurately reflect actual GFR. Performed By: #### 1 988-5, 3016-3, 63688-5, 2275-4 ####[facility] LABCLIA [id number] [address] [address] [place] Glucose [Mass/Vol] 74 mg/dL Normal 74-99 [facility] Comment on above: Order Comment: Specmarianela saenz Type: BLOOD SPECIMENOrdering Facility: [facility] Address: [address] [place] [address] Result Comment: The [place] Diabetes Association (ADA) provides guidance for cutoff values for fasting glucose and random glucose. The ADA defines fasting as no caloric intake for at least 8 hours. Fasting plasma glucose results between 100 to 125 mg/dL indicate increased risk for diabetes (prediabetes).Fasting plasma glucose results greater than or equal to 126 mg/dL meet the criteria for diagnosis of diabetes. In the absence of unequivocal hyperglycemia, results should be confirmed by repeat testing. In a patient with classic symptoms of hyperglycemia or hyperglycemic crisis, random plasma glucose results greater than or equal to 200 mg/dL meet the criteria for diagnosis of diabetes.Reference: Standards of Medical Care in Diabetes 2016, [place] [employer]. Diabetes Care. 2016.39(Suppl 1). Performed By: #### 1 988-5, 6-3, 02044-2, 4 ####[facility] LABCLIA [id number] [address] [address] [place] Potassium [Moles/Vol] 4.3 mmol/L Normal 3.7-5.1 [facility] Comment on above: Order Comment: Nataly saenz Type: BLOOD SPECIMENOrdering Facility: [facility] Address: [address] [place] [address] Performed By: #### 1 988-5, 3016-3, 76914-7, 2275-4 ####[facility] LABCLIA [id number] [address] [address] [place] Protein [Mass/Vol] 7.6 g/dL Normal 6.3-8.0 [facility] Comment on above: Order Comment: Speci men Type: BLOOD SPECIMENOrdering Facility: [facility] Address: [address] [place] [address] Performed By: #### 1 988-5, 3016-3, 46047-7, 2276-4 ####[facility] LABCLIA [id number] [place] [address] [place] Sodium [Moles/Vol] 141 mmol/L Normal 136-144 [facility] Comment on above: Order Comment: Speci men Type: BLOOD SPECIMENOrdering Facility: [facility] Address: [address] [place] [address] Performed By: #### 1 988-5, 3016-3, 15089-4, 2275-4 ####[facility] LABCLIA [id number] [place] [address] [place] Urea nitrogen [Mass/Vol] 10 mg/dL Normal 7-21 [facility] Comment on above: Order Comment: Speci men Type: BLOOD SPECIMENOrdering Facility: [facility] Address: [address] [place] [address] Performed By: #### 1 988-5, 3016-3, 44742-4, 2275-4 ####[facility] LABCLIA [id number] [place] [address] [place] Ferritin SerPl-mCncon 2023 Ferritin [Mass/Vol] 51.8 ng/mL Normal 14.7-205.1 [facility] Comment on above: Order Comment: Speci men Type: BLOOD SPECIMENOrdering Facility: [facility] Address: [address] [place] [address] Performed By: #### 1 988-5, 3016-3, 86109-3, 2275-4 ####[facility] LABCLIA [id number] [place] [address] [place] Folate SerPl-mCncon 07-09-20 Folate [Mass/Vol] 4.9 ng/mL Normal >4.7 [facility] Comment on above: Order Comment: Speci men Type: BLOOD SPECIMENOrdering Facility: [facility] Address: [address] [place] [address] Performed By: #### 2 284-8, 2132-9 ####[facility] LABCLIA [id number] [place] [address] [place] MANGANESE BLDon 07-09-2024 Manganese (Bld) [Mass/Vol] 8.0 ug/L Normal 4.4-15.2 [facility] Comment on above: Order Comment: Spec men Type: BLOOD SPECIMENOrdering Facility: [facility] Address: [address] [place] [address] Result Comment: This test was developed, and its performance characteristics determined by the [facility] Department of Pathology and Laboratory Medicine. It has not been cleared or approved by the FDA. The [facility] Department of Pathology and Laboratory Medicine is regulated under CLIA as qualified to perform high-complexity testing. This test is used for clinical purposes. It should not be regarded as investigational or for research. Performed By: #### M IONA BOSTON ####[facility] LABCLIA [id number] [place] [address] [place] OMEGACHECKon 07-09-2024 ARACHIDONIC ACID 15.6 % by wt Normal 8.6-15.6 [facility] Comment on above: Order Comment: Speci men Type: BLOOD SPECIMENOrdering Facility: [facility] Address: [address] [place] [address] Performed By: #### O MEGA ####[facility] [id number] [place] [address] ARACHIDONIC ACID/EPA RATIO 67.6 High 3.7-40.7 [facility] Comment on above: Order Comment: Speci men Type: BLOOD SPECIMENOrdering Facility: [facility] Address: [address] [place] [address] Result Comment: Rece ived Date: Performed By: #### O MEGAC ####[facility] [id number] [address] [address] DHA 1.7 % by wt Normal 1.4-5.1 [facility] Comment on above: Order Comment: Speci men Type: BLOOD SPECIMENOrdering Facility: [facility] Address: [address] [place] [address] Performed By: #### O MEGAC ####[facility] [id number] [address] [place], [place] [address] DPA 1.0 % by wt Normal 0.8-1.8 [facility] Comment on above: Order Comment: Speci men Type: BLOOD SPECIMENOrdering Facility: [facility] Address: [address] [place] [address] Performed By: #### O MEGAC ####[facility] [id number] [address] [place] [address] EPA 0.2 % by wt Normal 0.2-2.3 [facility] Comment on above: Order Comment: Speci men Type: BLOOD SPECIMENOrdering Facility: [facility] Address: [address] [place] [address] Performed By: #### O MEGAC ####[facility] [id number] [address] [place] [address] LINOLEIC ACID 23.1 % by wt Normal 18.6-29.5 [facility] Comment on above: Order Comment: Speci men Type: BLOOD SPECIMENOrdering Facility: [facility] Address: [address] [place] [address] Performed By: #### O MEGAC ####[facility] [id number] [address] [place] [address] OMEGA-3 TOTAL 3.0 % by wt Normal [facility] Comment on above: Order Comment: Speci men Type: BLOOD SPECIMENOrdering Facility: [facility] Address: [address] [place] [address] Performed By: #### O MEGAC ####[facility]LAB[facility] [id number] [place] [address] [address] OMEGA-6 TOTAL 42.8 % by wt Normal [facility] Comment on above: Order Comment: Speci men Type: BLOOD SPECIMENOrdering Facility: [facility] Address: [address] [place] [address] Result Comment: [facility] measures a number of omega-6 fatty acidswith AA and LA being the two most abundant forms reported. Performed By: #### O MEGAC ####[facility] [id number] [place] [id number] OMEGA-6/OMEGA-3 RATIO 14.4 Normal 3.7-14.4 [facility] Comment on above: Order Comment: Speci men Type: BLOOD SPECIMENOrdering Facility: [facility] Address: [address] [place] [address] Performed By: #### O MEGAC ####[facility] [id number] [place] [id number] OMEGACHECK 3.0 % by wt Low >5.4 [facility] Comment on above: Order Comment: Speci men Type: BLOOD SPECIMENOrdering Facility: [facility] Address: [address] [place] [address] Result Comment: Incr easing blood levels of long-chain n-3 fatty acids areassociated with a lower risk of sudden cardiac (1).Based on the top (75th percentile) and bottom (25thpercentile) quartiles of the [facility] reference population, thefollowing relative risk categories were established forOmegaCheck: A cut-off of >=5.5% by wt defines a populationat optimal relative risk, 3.8-5.4% by wt defines apopulation at moderate relative risk, and <=3.7% by wtdefines a population at high relative risk of sudden cardiacdeath. The totality of the scientific evidence demonstratesthat when consumption of fish oils is limited to 3 g/day orless of EPA and DHA, there is no significant risk forincreased bleeding time beyond the normal range. A dailydosage of 1 gram of EPA and DHA lowers the circulatingtriglycerides by about 7-10% within 2 to 3 weeks.(Reference: 1-Regulo mcadams al. NE. 2002; 346: 9903-9313).Thistest was developed and its analytical performancecharacteristics have been determined by [facility].It has not been cleared or approved by the U.S. Food andDrug Administration. This assay has been validated pursuantto the CLIA regulations and is used for clinical purposes. Performed By: #### O [facility] ####[facility] [id number] [address] [address] TSH SerPl-aCncon 07-09-2024 TSH Qn 3.100 m[IU]/L Normal 0.270-4.200 [facility] Comment on above: Order Comment: Speci men Type: BLOOD SPECIMENOrdering Facility: [facility] Address: [address] [place] [address] Result Comment: If t he patient is , TSH reference range varies by gestational period:First Trimester (weeks 9-12): 0.180-2.990 mIU/LSecond Trimester: 0.110-3.980 mIU/LThird Trimester: 0.480-4.710 mIU/Jenifer Douglas et al. A Practical Approach for the Verifications and Determination of Site- and Trimester-Specific Reference Intervals for Thyroid Function tests in . Thyroid, 2019:29:3:412-420. Jarrod Kitchen, et al. 2017 Guidelines of the [place] Thyroid Association for the Diagnosis and Management of Thyroid Disease during and the . Thyroid, 2017:27:3:315-389. Performed By: #### 1 988-5, 3016-3, 13944-4, 2276-4 ####[facility] LABCLIA [id number] [facility] [id number] [place] [address] [place] Vit B12 SerPl-mCncon 024 Cobalamin (Vitamin B12) [Mass/Vol] 730 pg/mL Normal 232-1245 [facility] Comment on above: Order Comment: Speci men Type: BLOOD SPECIMENOrdering Facility: [facility] Address: [address] [place] [address] Performed By: #### 2 284-8, 2132-9 ####[facility] LABCLIA [id number] [place] [address] [place] Zinc SerPl-mCncon 07-09-2024 Zinc [Mass/Vol] 62 ug/dL Normal 60-120 [facility] Comment on above: Order Comment: Speci men Type: BLOOD SPECIMENOrdering Facility: [facility] Address: [address] [place] [address] Result Comment: This test was developed, and its performance characteristics determined by the [facility] Department of Pathology and Laboratory Medicine. It has not been cleared or approved by the FDA. The [facility] Department of Pathology and Laboratory Medicine is regulated under CLIA as qualified to perform high-complexity testing. This test is used for clinical purposes. It should not be regarded as investigational or for research. Performed By: #### C OPPER, 5763-8 ####[facility] LABCLIA [id number] [place] [address] [place] CNOVon 07-06-2024 CNOV Normal [facility] CNPNon 07-06-2024 CNPN Normal [facility] No Panel Informationon 06-28 IMPRESSION: NORMAL UPPER GI. NORMAL SMALL BOWEL SERIES Mental Health Aide: PSCB Transcribe Date/Time: Jun 28 2024 12:40P Dictated by : SUZY FATIMA MD This examination was interpreted and the report reviewed and electronically signed by: SUZY FATIMA MD on Jun 28 2024 12:45PM EST [facility] No Panel InformationOrdered By: Ccf Provider on 06-28-2024 [facility] RF Gastrointestinal tract up per Views W air contrast PO and W barium contrast Dru 06-28-2024 * * *Final Report* * * DATE OF EXAM: Jun 28 2024 10:11AM AWX [id number] - XR UPPER GI DOUBLE CONTRAST/AIR / PROCEDURE REASON: Abdominal bloating * * * * Physician Interpretation * * * * XR UPPER GI DOUBLE CONTRAST/AIR, XR GI SMALL BOWEL FOLLOW-THRU HISTORY: Abdominal bloating. TECHNIQUE: The patient consumed contrast under intermittent fluoroscopic observation. An upper GI examination and small bowel follow-through examination were performed. Oral: 355 ml of EZPAQUE Oral: 120 ml of EZHD Oral: 1 packet of EZGAS Air kerma: 23.5 mGy RESULT: Preliminary radiograph demonstrates a nonobstructive bowel gas pattern. No significant stool. No radiopaque densities overlying the renal shadows. Esophagus, stomach and duodenum are normal. No mass or ulcer. No gastroesophageal reflux. Contrast reached the colon by 60 minutes. No bowel obstruction. Terminal ileum appears unremarkable. [employer] [facility]/28/[facility]24 * * *Final Report* * * DATE OF EXAM: Jun 28 2024 10:11AM AWX [id number] - XR UPPER GI DOUBLE CONTRAST/AIR / PROCEDURE REASON: Abdominal bloating * * * * Physician Interpretation * * * * XR UPPER GI DOUBLE CONTRAST/AIR, XR GI SMALL BOWEL FOLLOW-THRU HISTORY: Abdominal bloating. TECHNIQUE: The patient consumed contrast under intermittent fluoroscopic observation. An upper GI examination and small bowel follow-through examination were performed. Oral: 355 ml of EZPAQUE Oral: 120 ml of EZHD Oral: 1 packet of EZGAS Air kerma: 23.5 mGy RESULT: Preliminary radiograph demonstrates a nonobstructive bowel gas pattern. No significant stool. No radiopaque densities overlying the renal shadows. Esophagus, stomach and duodenum are normal. No mass or ulcer. No gastroesophageal reflux. Contrast reached the colon by 60 minutes. No bowel obstruction. Terminal ileum appears unremarkable. IMPRESSION IMPRESSION: NORMAL UPPER GI. NORMAL SMALL BOWEL SERIES Mental Health Aide: PSCB Transcribe Date/Time: Jun 28 2024 12:40P Dictated by : SUZY FATIMA MD This examination was interpreted and the report reviewed and electronically signed by: SUZY FATIMA MD on Jun 28 2024 12:45PM EST [facility] Radiology Study observation (narrative) [facility] Small bowel Diameter USon * * *Final Report* * * DATE OF EXAM: Jun 28 2024 10:11AM [id number] - XR GI SMALL BOWEL FOLLOW-THRU / PROCEDURE REASON: Abdominal bloating * * * * Physician Interpretation * * * * XR UPPER GI DOUBLE CONTRAST/AIR, XR GI SMALL BOWEL FOLLOW-THRU HISTORY: Abdominal bloating. TECHNIQUE: The patient consumed contrast under intermittent fluoroscopic observation. An upper GI examination and small bowel follow-through examination were performed. Oral: 355 ml of EZPAQUE Oral: 120 ml of EZHD Oral: 1 packet of EZGAS Air kerma: 23.5 mGy RESULT: Preliminary radiograph demonstrates a nonobstructive bowel gas pattern. No significant stool. No radiopaque densities overlying the renal shadows. Esophagus, stomach and duodenum are normal. No mass or ulcer. No gastroesophageal reflux. Contrast reached the colon by 60 minutes. No bowel obstruction. Terminal ileum appears unremarkable. [facility], [facility] - 06/28/[facility]24 * * *Final Report* * * DATE OF EXAM: Jun 28 2024 10:11AM [id number] [id number] - XR GI SMALL BOWEL FOLLOW-THRU / PROCEDURE REASON: Abdominal bloating * * * * Physician Interpretation * * * * XR UPPER GI DOUBLE CONTRAST/AIR, XR GI SMALL BOWEL FOLLOW-THRU HISTORY: Abdominal bloating. TECHNIQUE: The patient consumed contrast under intermittent fluoroscopic observation. An upper GI examination and small bowel follow-through examination were performed. Oral: 355 ml of EZPAQUE Oral: 120 ml of EZHD Oral: 1 packet of EZGAS Air kerma: 23.5 mGy RESULT: Preliminary radiograph demonstrates a nonobstructive bowel gas pattern. No significant stool. No radiopaque densities overlying the renal shadows. Esophagus, stomach and duodenum are normal. No mass or ulcer. No gastroesophageal reflux. Contrast reached the colon by 60 minutes. No bowel obstruction. Terminal ileum appears unremarkable. IMPRESSION IMPRESSION: NORMAL UPPER GI. NORMAL SMALL BOWEL SERIES Mental Health Aide: MARIA INES Transcribe Date/Time: Jun 28 2024 12:40P Dictated by : SUZY FATIMA MD This examination was interpreted and the report reviewed and electronically signed by: SUZY FATIMA MD on Jun 28 2024 12:45PM [facility] Radiology Study observation (narrative) [facility] XR GI SMALL BOWEL FOLLOW-THR Uon 06-28-2024 XR GI SMALL BOWEL FOLLOW-THRU Normal [facility] XR UPPER GI DOUBLE CONTRAST/ AIRon 06-28-2024 XR UPPER GI DOUBLE CONTRAST/AIR Normal [facility] CNOVon 06-22-2024 CNOV Normal [facility] NITRIC OXIDE, EXHALEDon 06-10 Maya Ramos RRT 06/22/2024 9:34 AM RESPIRATORY THERAPY ORAL EXHALED NITRIC OXIDE SERVICE DATE: 06/22/2024 SERVICE TIME: 9:34 AM Oral Exhaled Nitric Oxide measurement: 17.0 (ppb) Normal: Adult <25 ppb, pediatric (<12 years) <20 ppb High Normal / Increased: Adult 25-50 ppb, pediatric (<12 years) 20-35 ppb Moderately raised exhaled Nitric Oxide may indicate underlying inflammation, but note that: Cold and influenza can raise exhaled Nitric Oxide and some patients have higher baseline exhaled Nitric Oxide levels than others. High: Adult >50 ppb, pediatric (<12 years) >35 ppb Indicative of ongoing eosinophilic inflammation. Symptomatic patient likely to respond to steroids. Possible causes (if already on steroids): Poor compliance, recent allergen exposure, steroid dose inadequate, and steroid resistance. Note that not all patients with high exhaled nitric oxide levels display symptoms. Oral Exhaled Nitric Oxide measurement (Previous Encounters) Test Date Oral Exhaled Nitric Oxide (ppb) 06/22/2024 17.0 11/18/2022 11.0 NAME: Maya Ramos RRT PATIENT NAME: Amie Braxton DATE: June 22, 2024 TIME: 9:34 AM [facility] CNTHERAPYon 06-18-2024 CNTHERAPY OT/PT/Speech Visit (SPMBME) -------- FOXAMIE ([id number]) 1995 F Date Time Provider Department 06/18/24 9:45 AM CHRISTIANNE SORIANO BLAINEE Date Time Provider Department Center 06/18/2024 9:45 AM [id number], JOYCE [facility] Reason for Visit: Speech Instrumental Swallow Eval [3660] Speech Discharge [3488] Primary Visit Diagnosis:Dysphagia, unspecified type [R13.10] Allergies As of Date: 06/18/2024 Noted Allergy Reaction BEEF CONTAINING PRODUCTS 04/02/2016 5 - Intolerance Comments: migraines Migraines, upset stomach BEEF DERIVED (BOVINE) 04/02/2016 4 - Hives BETA-BLOCKERS (BETA-ADRENERGIC BL*10/22/2022 15 - Contraindication-Medical Morgan* Comments: Patient carries Epipen for pineapple allergy. EGG DERIVED 04/02/2016 8 - GI Upset Comments: Vomiting even with ingredient of egg MILK CONTAINING PRODUCTS (DAIRY) 04/02/2016 5 - Intolerance 4 - Hives Comments: Vomiting. PINEAPPLE 08/24/2020 4 - Hives 7 - Swelling Comments: Hives, difficulty breathing SOY 08/24/2020 8 - GI Upset Comments: vomiting TREE NUTS 08/31/2020 14 - Other: See Comments Comments: Asthma flaring, difficulty breathing VANCOMYCIN ANALOGUES 09/06/2019 4 - Hives Date Reviewed: 06/14/2024 Reviewed by: Merry Schaffer RT(R) - Fully Assessed Prescriptions as of 06/18/2024 - pantoprazole DR (PROTONIX) 40 mg tablet Take 1 tablet by mouth once daily. 30 minutes before a meal - nitroglycerin sublingual (NITROQUICK) 0.3 mg SL tablet Dissolve 1 tablet under the tongue one time only for 1 dose. To be administered in Radiology for CTA exam - bisoprolol (ZEBETA) 5 mg tablet Take 1 tablet by mouth once daily. - azelastine 0.1% nasal spray Use 1-2 Sprays in each nostril two times a day as needed. - DULoxetine (CYMBALTA) 30 mg capsule Take 1 capsule by mouth once daily. - topiramate (TOPAMAX) 25 mg tablet Take by mouth. One pill daily for a week; then one pill twice daily for a week; then one pill three times daily for a week; then two pills twice daily thereafter. - budesonide-formoterol (SYMBICORT) 160-4.5 mcg/actuation inhaler Inhale 2 Puffs as instructed two times a day. - albuterol HFA (PROVENTIL HFA, VENTOLIN HFA) 90 mcg/actuation inhaler INHALE 1 TO 2 PUFFS EVERY 4 TO 6 HOURS NEEDED FOR WHEEZE FOR UP TO 30 DAYS - EPINEPHrine (EPIPEN) 0.3 mg/0.3 mL auto-injector Inject 0.3 mg intramuscularly as needed. Facility-Administered Medications as of 06/18/2024 - cyanocobalamin 1,000 mcg injection Letter Text Normal [facility] RF videography Hypopharynx a nd Esophagus Views W liquid and paste contrast PO during swallowingon 06-18-2024 * * *Final Report* * * DATE OF EXAM: Jun 18 2024 10:25AM MDX [id number] - XR MOD BARIUM SWALLOW W SPEECH / PROCEDURE REASON: R13.10-Dysphagia, unspecified type * * * * Physician Interpretation * * * * Videoesophagus HISTORY: Indication: Dysphagia, unspecified type TECHNIQUE: The examination was monitored by the speech pathologist. The patient was given different consistencies of barium and barium-coated foods to swallow. Fluoroscopic Radiation Summary: Plane A, Air Kerma: 39.4 mGy Dose Area Product (DAP): 6055.3 mGy*cm2 Fluoro time: 2:12 min:sec Images obtained: 10 Cineflouroscopy images under fluoroscopic guidance. Images were stored in a permanent archive Images obtained: Multiple spot film images under fluoroscopic guidance. Comparison: NONE. RESULT: Findings: No evidence of aspiration. Impression: 1. No evidence of aspiration 2. See Speech and Hearing therapist report for further evaluation Mental Health Aide: MARIA INES Transcribe Date/Time: Jun 18 2024 2:09P Dictated by : FRANSISCO FAY MD This examination was interpreted and the report reviewed and electronically signed by: FRANSISCO FAY MD on Jun 18 2024 2:10PM [facility] Provider, [facility] - 06/18/2024 * * *Final Report* * * DATE OF EXAM: Jun 18 2024 10:25AM MDX [id number] - XR MOD BARIUM SWALLOW W SPEECH / PROCEDURE REASON: R13.10-Dysphagia, unspecified type * * * * Physician Interpretation * * * * Videoesophagus HISTORY: Indication: Dysphagia, unspecified type TECHNIQUE: The examination was monitored by the speech pathologist. The patient was given different consistencies of barium and barium-coated foods to swallow. Fluoroscopic Radiation Summary: Plane A, Air Kerma: 39.4 mGy Dose Area Product (DAP): 6055.3 mGy*cm2 Fluoro time: 2:12 min:sec Images obtained: 10 Cineflouroscopy images under fluoroscopic guidance. Images were stored in a permanent archive Images obtained: Multiple spot film images under fluoroscopic guidance. Comparison: NONE. RESULT: Findings: No evidence of aspiration. Impression: 1. No evidence of aspiration 2. See Speech and Hearing therapist report for further evaluation Mental Health Aide: MARIA INES Transcribe Date/Time: Jun 18 2024 2:09P Dictated by : FRANSISCO FAY MD This examination was interpreted and the report reviewed and electronically signed by: FRANSISCO FAY MD on Jun 18 2024 2:10PM EST [facility] Radiology Study observation (narrative) [facility] RF videography Hypopharynx a nd Esophagus Views W liquid and paste contrast PO during swallowingOrdered By: Ccf Provider on 06-18-2024 [facility] XR MOD BARIUM SWALLOW W SPEE Tamica 06-18-2024 XR MOD BARIUM SWALLOW W SPEECH * * *Final Report* * * DATE OF EXAM: Jun 18 2024 10:25AM MDX [id number] - XR MOD BARIUM SWALLOW W SPEECH / PROCEDURE REASON: R13.10-Dysphagia, unspecified type * * * * Physician Interpretation * * * * Videoesophagus HISTORY: Indication: Dysphagia, unspecified type TECHNIQUE: The examination was monitored by the speech pathologist. The patient was given different consistencies of barium and barium-coated foods to swallow. Fluoroscopic Radiation Summary: Plane A, Air Kerma: 39.4 mGy Dose Area Product (DAP): 6055.3 mGy*cm2 Fluoro time: 2:12 min:sec Images obtained: 10 Cineflouroscopy images under fluoroscopic guidance. Images were stored in a permanent archive Images obtained: Multiple spot film images under fluoroscopic guidance. Comparison: NONE. RESULT: Findings: No evidence of aspiration. Impression: 1. No evidence of aspiration 2. See Speech and Hearing therapist report for further evaluation Mental Health Aide[facility] Transcribe Date/Time: Jun 18 2024 2:09P Dictated by : FRANSISCO FAY MD This examination was interpreted and the report reviewed and electronically signed by: FRANSISCO FAY MD on Jun 18 2024 2:10PM EST [id number] Normal [facility] CNPNon 06-15-2024 CNPN Normal [facility] CTA CORONARY W IVCONon 06-14 CTA CORONARY W IVCON Normal [facility] CTA Heart and Coronary arter ies W contrast Roberto 06-14-2024 IMPRESSION: - NO EVIDENCE OF ATHEROSCLEROTIC CHANGES OR LUMINAL STENOSIS OF THE CORONARY ARTERIES - CAD-RADS 0: No plaque or luminal stenosis. Absence of CAD. - Overall Plaque [place]: No evidence of plaque - LV EF = 73 %; LV EDV 76 ml. Clinical correlation is recommended Mental Health Aide: [facility] Transcribe Date/Time: Jun 14 2024 10:12A Dictated by : MASHA OCONNOR MD This examination was interpreted and the report reviewed and electronically signed by: OSCAR LAWRENCE MD on Jun 14 2024 1:38PM EST DIVISION OF RADIOLOGY * * *Final Report* * * DATE OF EXAM: Jun 14 2024 9:33AM JQC [id number] - CTA CORONARY W IVCON / PROCEDURE REASON: Chest pain, unspecified type * * * * Physician Interpretation * * * * CTA CORONARY ARTERIES Direct Image Comparison: HISTORY: 28 years old Female patient with past medical history of asthma and PCOS with intermittent chest discomfort. Evaluation for diagnostic clarification and further treatment options.. There is request to define coronary anatomy. TECHNIQUE: SCANNER:out-patient Siemens Definition Force Dual source [id number] scanner PROTOCOL: Spiral imaging of the heart with retrospective gating and submillimeter slice reconstruction in diastolic phase following administration of contrast material. Scan Range: jazmin to the base of the heart CT Dose-Length Product (DLP): 99 mGy*cm CT Dose Reduction Employed: Automated exposure control(AEC) and iterative recon CONTRAST: IV administration of 70 ml Omnipaque 350 Premedication with 0.3 mg sublingual nitroglycerin Scan acquisition: uncomplicated Macro Version: [id number] For optimization of anatomic evaluation, advanced 3-D off-line postprocessing was performed on a dedicated workstation by the interpreting physician. STUDY LIMITATIONS: None. RESULT: LINES, TUBES and DEVICES: None limited CHEST: visualized Chest wall anatomy: unremarkable. visualized LUNGS: unremarkable. visualized MEDIASTINUM: unremarkable. PERICARDIUM: unremarkable CENTRAL PULMONARY ARTERY: normal dimensions. Assessment is limited due to limited contrast enhancement. CARDIAC CHAMBERS: LEFT VENTRICLE: normal size with normal systolic function; LV EF = 73 %; LV EDV 76 ml. RIGHT VENTRICLE: normal size and normal function on qualitative assessment. Left Atrium: normal size. Small linear structure at the interatrial septum, most consistent with the foramen ovale or a left atrial septal pouch. ALF: normal. Right Atrium: normal size CENTRAL VENOUS and PULMONARY VENOUS RETURN: normal. Coronary Sinus: normal size MITRAL VALVE: assessment is limited in the current study - no leaflet calcification. No annular calcification TRICUSPID and PULMONIC VALVE: appear unremarkable. AORTIC VALVE: appears trileaflet. No leaflet calcification. visualized AORTA: Pathology: No aortic pathology in limited visualized segments of the aorta, Intervention: None Complications: n/a Aortic Size: Normal size visualized thoracic aorta. STJ: maintained Wall Changes: no evidence of wall changes. AORTIC DIMENSIONS: AORTIC ROOT: 2.8 cm measured [id number] mid ASCENDING THORACIC AORTA: 2.2 cm mid DESCENDING THORACIC AORTA: 1.5 cm CORONARY ANATOMY: normal origin of the coronary arteries. LEFT MAIN: Coronary Artery Normal sized vessel, which bifurcates into LAD and LCX. LM Stenosis and Plaque: No evidence of plaque. No plaque or luminal stenosis. LAD: (Left Anterior Descending Coronary Artery) Normal size vessel, which wraps around the apex. Gives rise to 2 diagonal branches and small septal branches. LAD Stenosis and Plaque: No evidence of plaque. No plaque or luminal stenosis. LCX: (Left Circumflex Coronary Artery) Normal size vessel, which is non-dominant. Gives rise to 1 high obtuse marginal branch and then becomes a small diminutive vessel. LCX Stenosis and Plaque: No evidence of plaque. No plaque or luminal stenosis. RCA: (Right Coronary Artery) Normal size vessel, which is dominant.. Gives rise to a conus branch, SA jack branch, 2 acute marginal branch. In its distal segment it bifurcates into the PDA and PV branch. RCA Stenosis and Plaque: No evidence of plaque. No plaque or luminal stenosis. limited upper ABDOMEN: unremarkable BONES and SOFT TISSUES: unremarkable, within limitations of the current study Finish Rolls Operator (topogram) images: No additional findings. DIVISION OF RADIOLOGY Provider, Ronna Jane Noreen - 06/14/2024 * * *Final Report* * * DATE OF EXAM: Jun 14 2024 9:33AM JQC [id number] - CTA CORONARY W IVCON / PROCEDURE REASON: Chest pain, unspecified type * * * * Physician Interpretation * * * * CTA CORONARY ARTERIES Direct Image Comparison: HISTORY: 28 years old Female patient with past medical history of asthma and PCOS with intermittent chest discomfort. Evaluation for diagnostic clarification and further treatment options.. There is request to define coronary anatomy. TECHNIQUE: SCANNER:out-patient Siemens Definition Force Dual source [id number] scanner PROTOCOL: Spiral imaging of the heart with retrospective gating and submillimeter slice reconstruction in diastolic phase following administration of contrast material. Scan Range: jazmin to the base of the heart CT Dose-Length Product (DLP): 99 mGy*cm CT Dose Reduction Employed: Automated exposure control(AEC) and iterative recon CONTRAST: IV administration of 70 ml Omnipaque 350 Premedication with 0.3 mg sublingual nitroglycerin Scan acquisition: uncomplicated Macro Version: [id number] For optimization of anatomic evaluation, advanced 3-D off-line postprocessing was performed on a dedicated workstation by the interpreting physician. STUDY LIMITATIONS: None. RESULT: LINES, TUBES and DEVICES: None limited CHEST: visualized Chest wall anatomy: unremarkable. visualized LUNGS: unremarkable. visualized MEDIASTINUM: unremarkable. PERICARDIUM: unremarkable CENTRAL PULMONARY ARTERY: normal dimensions. Assessment is limited due to limited contrast enhancement. CARDIAC CHAMBERS: LEFT VENTRICLE: normal size with normal systolic function; LV EF = 73 %; LV EDV 76 ml. RIGHT VENTRICLE: normal size and normal function on qualitative assessment. Left Atrium: normal size. Small linear structure at the interatrial septum, most consistent with the foramen ovale or a left atrial septal pouch. ALF: normal. Right Atrium: normal size CENTRAL VENOUS and PULMONARY VENOUS RETURN: normal. Coronary Sinus: normal size MITRAL VALVE: assessment is limited in the current study - no leaflet calcification. No annular calcification TRICUSPID and PULMONIC VALVE: appear unremarkable. AORTIC VALVE: appears trileaflet. No leaflet calcification. visualized AORTA: Pathology: No aortic pathology in limited visualized segments of the aorta, Intervention: None Complications: n/a Aortic Size: Normal size visualized thoracic aorta. STJ: maintained Wall Changes: no evidence of wall changes. AORTIC DIMENSIONS: AORTIC ROOT: 2.8 cm measured [id number] mid ASCENDING THORACIC AORTA: 2.2 cm mid DESCENDING THORACIC AORTA: 1.5 cm CORONARY ANATOMY: normal origin of the coronary arteries. LEFT MAIN: Coronary Artery Normal sized vessel, which bifurcates into LAD and LCX. LM Stenosis and Plaque: No evidence of plaque. No plaque or luminal stenosis. LAD: (Left Anterior Descending Coronary Artery) Normal size vessel, which wraps around the apex. Gives rise to 2 diagonal branches and small septal branches. LAD Stenosis and Plaque: No evidence of plaque. No plaque or luminal stenosis. LCX: (Left Circumflex Coronary Artery) Normal size vessel, which is non-dominant. Gives rise to 1 high obtuse marginal branch and then becomes a small diminutive vessel. LCX Stenosis and Plaque: No evidence of plaque. No plaque or luminal stenosis. RCA: (Right Coronary Artery) Normal size vessel, which is dominant.. Gives rise to a conus branch, SA jack branch, 2 acute marginal branch. In its distal segment it bifurcates into the PDA and PV branch. RCA Stenosis and Plaque: No evidence of plaque. No plaque or luminal stenosis. limited upper ABDOMEN: unremarkable BONES and SOFT TISSUES: unremarkable, within limitations of the current study Finish Rolls Operator (topogram) images: No additional findings. IMPRESSION IMPRESSION: - NO EVIDENCE OF ATHEROSCLEROTIC CHANGES OR LUMINAL STENOSIS OF THE CORONARY ARTERIES - CAD-RADS 0: No plaque or luminal stenosis. Absence of CAD. - Overall Plaque [place]: No evidence of plaque - LV EF = 73 %; LV EDV 76 ml. Clinical correlation is recommended Mental Health Aide: MARIA INES Transcribe Date/Time: Jun 14 2024 10:12A Dictated by : MASHA OCONNOR MD This examination was interpreted and the report reviewed and electronically signed by: OSCAR LAWRENCE MD on Jun 14 2024 1:38PM EST [facility] Radiology Study observation (narrative) [facility] CTA Heart and Coronary arter ies W contrast IVOrdered By: Ccf Provider on 06-14-2024 [facility] CNNURSEon 06-11-2024 CNNURSE Normal [facility] CNOVon 06-05-2024 CNOV Normal [facility] CNPNon 06-05-2024 CNPN Normal [facility] HISTORY PHYSICALon 4 HISTORY PHYSICAL Normal [facility] Bacteria Ur Culton 4 Bacteria identified Cx Nom (U) ORGANISM ID: 1 10,000 -<50,000 CFU/ml Normal urogenital rd Normal [facility] Comment on above: Performed By: #### 6 30-4 ####[facility] LABCLIA [id number] [facility] [id number] [place] CNOVon 06-01-2024 CNOV Normal [facility] UA DIP, URINE (POC)on 2023 BILIRUBIN UA (POCT) Negative Negative [facility] CLARITY UA (POCT) Cloudy [facility] COLOR UA (POCT) Yellow [facility] GLUCOSE UA (POCT) Negative Negative mg/dL [facility] Hemoglobin Ql (U) Negative Negative [facility] Interpretation and review of laboratory results Abnormal [facility] KETONE UA (POCT) Negative Negative mg/dL [facility] LEUKOCYTES UA (POCT) Negative Negative [facility] NITRITE UA (POCT) Negative Negative [facility] PH UA (POCT) 8.5 Abnormal 4.5 - 8.0 [facility] Protein Ql (U) 30 mg/dL Abnormal Negative [facility] SPECIFIC GRAVITY UA (POCT) 1.015 1.005 - 1.030 [facility] UROBILINOGEN UA (POCT) 0.2 Carol l E.U./dL [facility] Location:[facility], [address] [place] [address], [place], [place], [id number] [place] [address] POINT OF CARE [facility] ALLIED HEALTHon 05-26-2024 ALLIED HEALTH HNO ID: [id number] Author: AASHISH WEI Tech Service: Radiology Author Type: Second Chef Type: Allied Health Filed: 05/26/2024 19:04 Note Text: Radiology Service Progress Note DATE OF SERVICE: May 26, 2024 TIME: 7:02 PM PATIENT IDENTITY VERIFICATION COMPLETED USING TWO (2) STANDARD IDENTIFIERS: Name and Date of confirmed by patient verbally and Name and Date of confirmed by identification band. FALL SCREENING: Has the patient had 2 falls in the last year or 1 fall with injury or currently using an Ambulatory Assistive Device (Walker, Cane, Wheelchair, Crutches, etc.)? Emergency Room Patient: Screened in ED PATIENT GENDER DATA: Female. status: : No status: NO. PATIENT RELEVANT IMPLANT DATA REVIEWED: Yes PATIENT PRESENTS WITH AN IMPLANTABLE OR ATTACHED POLICE SERGEANT PRECINCT: No ALLERGIES: Reviewed and unchanged CONTRAST ALLERGY: NO. EXAM: CT -CONTRAST INDUCED NEPHROPATHY RISK FACTORS: Not applicable CREATININE: Creatinine Date Value Ref Range Status 05/26/2024 0.91 0.58 - 0.96 mg/dL Final 05/21/2024 0.75 0.58 - 0.96 mg/dL Final Comment: Use of this assay is not recommended for patients undergoing treatment with phenindione, due to the potential for falsely depressed results. 02/16/2024 0.83 0.58 - 0.96 mg/dL Final Estimated Glomerular Filtration Rate Date Value Ref Range Status 05/26/2024 89 >=60 mL/min/1.73m? Final Comment: Estimated Glomerular Filtration Rate (eGFR) is calculated using the 2020 CKD-EPI creatinine equation. This equation utilizes serum creatinine, sex, and age as parameters. The creatinine assay has traceable calibration to isotope dilution-mass spectrometry. Refer to KDIGO guidelines for clinical interpretation. In patients with unstable renal function, e.g. those with acute kidney injury, the eGFR may not accurately reflect actual GFR. eGFR- Date Value Ref Range Status 08/31/2020 >60 Final P.O.C.T. RESULTS: POC done: Yes, See Lab Tab May 26, 2024 TREATMENT: N/A PERIPHERAL IV DATA: Inpatient - refer to [facility] documentation RADIOLOGY DEPARTMENT: CT; Exam(s) Completed: CTA Abdomen Pelvis and CTA Cardiac SIGNATURE: Julio Cesar Lopez PATIENT NAME: Amie Braxton DATE: May 26, 2024 TIME: 7:02 PM Normal [facility] CBC W Auto Differential pane l (Bld)on 05-26-2024 Basophils (Bld) [#/Vol] 0.04 10*3/uL Normal <0.11 [facility] Comment on above: Order Comment: Speci men Type: BLOOD SPECIMENOrdering Facility: [facility] Address: [address] [place] [address] Performed By: #### 5 7021-8 ####JAIME LABORATORYCLIA [id number] [place] [address] [place] Basophils/100 WBC (Bld) 0.6 % Normal [facility] Comment on above: Order Comment: Speci men Type: BLOOD SPECIMENOrdering Facility: [facility] Address: [address] [place] [address] Performed By: #### 5 7021-8 ####JAIME LABORATORYCLIA [id number] [place] [address] [place] Differential cell count method Nom (Bld) Auto Normal [facility] Comment on above: Order Comment: Speci men Type: BLOOD SPECIMENOrdering Facility: [facility] Address: [address] [place] [address] Performed By: #### 5 7021-8 ####JAIME LABORATORYCLIA [id number] [place] [address] [place] Eosinophils (Bld) [#/Vol] 0.07 10*3/uL Normal <0.46 [facility] Comment on above: Order Comment: Speci men Type: BLOOD SPECIMENOrdering Facility: [facility] Address: [address] [place] [address] Performed By: #### 5 7021-8 ####JAIME LABORATORYCLIA [id number] [address] [place] Eosinophils/100 WBC (Bld) 1.1 % Normal [facility] Comment on above: Order Comment: Speci men Type: BLOOD SPECIMENOrdering Facility: [facility] Address: [address] [place] [address] Performed By: #### 5 7021-8 ####JAIME LABORATORYCLIA [id number] [place] [address] [place] Erythrocyte distribution width (RBC) [Ratio] 12.9 % Normal 11.5-15.0 [facility] Comment on above: Order Comment: Speci men Type: BLOOD SPECIMENOrdering Facility: [facility] Address: [address] [place] [address] Performed By: #### 5 7021-8 ####JAIME LABORATORYCLIA [id number] [place] [address] [place] Hematocrit (Bld) [Volume fraction] 47.2 % High 36.0-46.0 [facility] Comment on above: Order Comment: Speci men Type: BLOOD SPECIMENOrdering Facility: [facility] Address: [address] [place] [address] Performed By: #### 5 7021-8 ####JAIME LABORATORYCLIA [id number] [place] [address] [place] Hemoglobin (Bld) [Mass/Vol] 16.1 g/dL High 11.5-15.5 [facility] Comment on above: Order Comment: Speci men Type: BLOOD SPECIMENOrdering Facility: [facility] Address: [address] [place] [address] Performed By: #### 5 7021-8 ####JAIME LABORATORYCLIA [id number] [place] [address] [place] Immature granulocytes (Bld) [#/Vol] 10*3/uL Normal <0.10 [facility] Comment on above: Order Comment: Speci men Type: BLOOD SPECIMENOrdering Facility: [facility] Address: [address] [place] [address] Performed By: #### 5 7021-8 ####JAIME LABORATORYCLIA [id number] [address] [place] Immature granulocytes/100 WBC (Bld) 0.3 % Normal [facility] Comment on above: Order Comment: Speci men Type: BLOOD SPECIMENOrdering Facility: [facility] Address: [address] [place] [address] Performed By: #### 5 7021-8 ####JAIME LABORATORYCLIA [id number] [place] [address] [place] Lymphocytes (Bld) [#/Vol] 1.59 10*3/uL Normal 1.00-4.00 [facility] Comment on above: Order Comment: Speci men Type: BLOOD SPECIMENOrdering Facility: [facility] Address: [address] [place] [address] Performed By: #### 5 7021-8 ####JAIME LABORATORYCLIA [id number] [address] Lymphocytes/100 WBC (Bld) 24.6 % Normal [facility] Comment on above: Order Comment: Speci men Type: BLOOD SPECIMENOrdering Facility: [facility] Address: [address] [place] [address] Performed By: #### 5 7021-8 ####JAIME LABORATORYCLIA [id number] [address] MCH (RBC) [Entitic mass] 30.0 pg Normal 26.0-34.0 [facility] Comment on above: Order Comment: Speci men Type: BLOOD SPECIMENOrdering Facility: [facility] Address: [address] [place] [address] Performed By: #### 5 7021-8 ####JAIME LABORATORYCLIA [id number] [address] STATES [facility] MCHC (RBC) [Mass/Vol] 34.1 g/dL Normal 30.5-36.0 [facility] Comment on above: Order Comment: Speci men Type: BLOOD SPECIMENOrdering Facility: [facility] Address: [address] [place] [address] Performed By: #### 5 7021-8 ####JAIME LABORATORYCLIA [id number] [address] MCV (RBC) [Entitic vol] 87.9 fL Normal 80.0-100.0 [facility] Comment on above: Order Comment: Speci men Type: BLOOD SPECIMENOrdering Facility: [facility] Address: [address] [place] [address] Performed By: #### 5 7021-8 ####JAIME LABORATORYCLIA [id number] [address] Monocytes (Bld) [#/Vol] 0.36 10*3/uL Normal <0.87 [facility] Comment on above: Order Comment: Speci men Type: BLOOD SPECIMENOrdering Facility: [facility] Address: [address] [place] [address] Performed By: #### 5 7021-8 ####JAIME LABORATORYCLIA [id number] [place] [address] [place] Monocytes/100 WBC (Bld) 5.6 % Normal [facility] Comment on above: Order Comment: Speci men Type: BLOOD SPECIMENOrdering Facility: [facility] Address: [address] [place] [address] Performed By: #### 5 7021-8 ####JAIME LABORATORYCLIA [id number] [place] [address] [place] Neutrophils (Bld) [#/Vol] 4.38 10*3/uL Normal 1.45-7.50 [facility] Comment on above: Order Comment: Speci men Type: BLOOD SPECIMENOrdering Facility: [facility] Address: [address] [place] [address] Performed By: #### 5 7021-8 ####JAIME LABORATORYCLIA [id number] [place] [address] [place] Neutrophils/100 WBC (Bld) 67.8 % Normal [facility] Comment on above: Order Comment: Speci men Type: BLOOD SPECIMENOrdering Facility: [facility] Address: [address] [place] [address] Performed By: #### 5 7021-8 ####JAIME LABORATORYCLIA [id number] [place] [address] [place] Nucleated RBC (Bld) [#/Vol] 10*3/uL Normal <0.01 [facility] Comment on above: Order Comment: Speci men Type: BLOOD SPECIMENOrdering Facility: [facility] Address: [address] [place] [address] Performed By: #### 5 7021-8 ####JAIME LABORATORYCLIA [id number] [place] [address] [place] Nucleated RBC/100 WBC (Bld) [Ratio] 0.0 /100 WBC Normal [facility] Comment on above: Order Comment: Speci men Type: BLOOD SPECIMENOrdering Facility: [facility] Address: [address] [place], [place] [address], [place] [address] Performed By: #### 5 7021-8 ####JAIME LABORATORYCLIA [id number] [place] [address] [place] Platelet mean volume (Bld) [Entitic vol] 10.2 fL Normal 9.0-12.7 [facility] Comment on above: Order Comment: Speci men Type: BLOOD SPECIMENOrdering Facility: [facility] Address: [address] [place] [address] Performed By: #### 5 7021-8 ####JAIME LABORATORYCLIA [id number] [place] [address] [place] Platelets (Bld) [#/Vol] 306 10*3/uL Normal 150-400 [facility] Comment on above: Order Comment: Speci men Type: BLOOD SPECIMENOrdering Facility: [facility] Address: [facility] [place] [address] Performed By: #### 5 7021-8 ####JAIME LABORATORYCLIA [id number] [place] [address] [place] RBC (Bld) [#/Vol] 5.37 10*6/uL High 3.90-5.20 [facility] Comment on above: Order Comment: Speci men Type: BLOOD SPECIMENOrdering Facility: [facility] Address: [facility] [place] [address] Performed By: #### 5 7021-8 ####JAIME LABORATORYCLIA [id number] [place] [address] [place] WBC (Bld) [#/Vol] 6.46 10*3/uL Normal 3.70-11.00 [facility] Comment on above: Order Comment: Speci men Type: BLOOD SPECIMENOrdering Facility: [facility] Address: [facility] [place] [address] Performed By: #### 5 7021-8 ####JAIME LABORATORYCLIA [id number] [place] [address] [place] CTA ABD/PELV W IVCONon 05-26 CTA ABD/PELV W IVCON * * *Final Report* * * DATE OF EXAM: May 26 2024 7:16PM [facility] [place] CTA ABD/PELV W IVCON / PROCEDURE REASON: Aortic dissection suspected * * * * Physician Interpretation * * * * EXAM: CTA CHEST (GATED) WO/W IVCON, CTA ABD/PELV W IVCON INDICATION: Aortic dissection suspected, chest pain. COMPARISON: CT PE and CT abdomen and pelvis 10/17/2022. TECHNIQUE: Helical CT of the chest was obtained for the evaluation of the thoracic aorta. Images were obtained before and after the administration of intravenous contrast. Gated chest was performed. Angiographic images of the abdomen and pelvis were also obtained. Post-processed images Maximum intensity Projection (MIP) and Volume-rendered (VR) were created, reviewed and archived. 3-D postprocessing was performed on the workstation. Contrast: IV: 100 ml of Omnipaque 350 CT Radiation dose: Integrated Dose-length product (DLP) for this visit = 999 mGy*cm. CT Dose Reduction Employed: Automated exposure control (AEC) FINDINGS: Limitations: None Cardiovascular Thoracic vasculature: Atherosclerotic changes: No atherosclerosis identified. Heart: The cardiac chambers are normal in size. No coronary artery calcifications are noted, although the study is not optimized for coronary assessment. No pericardial effusion or thickening. Thoracic aorta: The thoracic aorta is normal in course, caliber, and contour There is no acute aortic pathology, such as dissection, intramural hematoma, or contained rupture. No pulmonary arterial filling defect to the segmental level. Abdominal vasculature: Abdominal aorta: normal caliber. No significant atherosclerotic plaque or dissection flap. No aneurysmal dilation. Mesenteric and renal vessels: Celiac axis is patent. The SMA and MARGARITA are patent. Patent single bilateral renal arteries. Iliac arteries: Patent. Vasculature (other): Incidental note is made of a retroaortic left renal vein. - Portal venous system (SMV, splenic vein, portal vein and branches):Patent. - Hepatic veins: Patent. Chest: Lines, tubes, and devices: None. Lung parenchyma and airways: No consolidation. No suspicious pulmonary nodule. The central airways are patent. Pleural space: No pleural effusion. No pleural thickening. Lower neck, lymph nodes, and mediastinum: The imaged thyroid gland is normal. No lympadenopathy in the supraclavicular, axillary, mediastinal, or hilar regions. Abdomen / Pelvis: Liver: No mass. Biliary: No bile duct dilation. Gallbladder is unremarkable. Spleen: No mass. No splenomegaly. Pancreas: No mass or duct dilation. Adrenals: No mass. Kidneys: No mass, calculus or hydronephrosis. GI tract: No bowel obstruction. Lymph nodes: No abdominal or pelvic lymphadenopathy. Mesentery/Peritoneum: No ascites or mass. Retroperitoneum: No mass. Pelvis: Urinary bladder has a normal appearance. Uterus and adnexa have an unremarkable appearance for age. Musculoskeletal: No acute osseous abnormality. Right L5 pars defect. Finish Rolls Operator (topogram) images: No additional findings. IMPRESSION: 1. No acute aortic pathology identified. 2. No acute process in the chest, abdomen, pelvis. Mental Health Aide: P[facility] Transcribe Date/Time: May 26 2024 9:26P Dictated by : ESTEE ARREOLA MD This examination was interpreted and the report reviewed and electronically signed by: ESTEE ARREOLA MD on May 26 2024 9:42PM EST [id number] Normal [facility] CTA CHEST (GATED) WO/W IVCON on 05-26-2024 CTA CHEST (GATED) WO/W IVCON * * *Final Report* * * DATE OF EXAM: May 26 2024 7:16PM [facility] [place] [place] CTA CHEST (GATED) WO/W IVCON / PROCEDURE REASON: Aortic dissection suspected * * * * Physician Interpretation * * * * EXAM: CTA CHEST (GATED) WO/W IVCON, CTA ABD/PELV W IVCON INDICATION: Aortic dissection suspected, chest pain. COMPARISON: CT PE and CT abdomen and pelvis 10/17/2022. TECHNIQUE: Helical CT of the chest was obtained for the evaluation of the thoracic aorta. Images were obtained before and after the administration of intravenous contrast. Gated chest was performed. Angiographic images of the abdomen and pelvis were also obtained. Post-processed images Maximum intensity Projection (MIP) and Volume-rendered (VR) were created, reviewed and archived. 3-D postprocessing was performed on the workstation. Contrast: IV: 100 ml of Omnipaque 350 CT Radiation dose: Integrated Dose-length product (DLP) for this visit = 999 mGy*cm. CT Dose Reduction Employed: Automated exposure control (AEC) FINDINGS: Limitations: None Cardiovascular Thoracic vasculature: Atherosclerotic changes: No atherosclerosis identified. Heart: The cardiac chambers are normal in size. No coronary artery calcifications are noted, although the study is not optimized for coronary assessment. No pericardial effusion or thickening. Thoracic aorta: The thoracic aorta is normal in course, caliber, and contour There is no acute aortic pathology, such as dissection, intramural hematoma, or contained rupture. No pulmonary arterial filling defect to the segmental level. Abdominal vasculature: Abdominal aorta: normal caliber. No significant atherosclerotic plaque or dissection flap. No aneurysmal dilation. Mesenteric and renal vessels: Celiac axis is patent. The SMA and MARGARITA are patent. Patent single bilateral renal arteries. Iliac arteries: Patent. Vasculature (other): Incidental note is made of a retroaortic left renal vein. - Portal venous system (SMV, splenic vein, portal vein and branches):Patent. - Hepatic veins: Patent. Chest: Lines, tubes, and devices: None. Lung parenchyma and airways: No consolidation. No suspicious pulmonary nodule. The central airways are patent. Pleural space: No pleural effusion. No pleural thickening. Lower neck, lymph nodes, and mediastinum: The imaged thyroid gland is normal. No lympadenopathy in the supraclavicular, axillary, mediastinal, or hilar regions. Abdomen / Pelvis: Liver: No mass. Biliary: No bile duct dilation. Gallbladder is unremarkable. Spleen: No mass. No splenomegaly. Pancreas: No mass or duct dilation. Adrenals: No mass. Kidneys: No mass, calculus or hydronephrosis. GI tract: No bowel obstruction. Lymph nodes: No abdominal or pelvic lymphadenopathy. Mesentery/Peritoneum: No ascites or mass. Retroperitoneum: No mass. Pelvis: Urinary bladder has a normal appearance. Uterus and adnexa have an unremarkable appearance for age. Musculoskeletal: No acute osseous abnormality. Right L5 pars defect. Finish Rolls Operator (topogram) images: No additional findings. IMPRESSION: 1. No acute aortic pathology identified. 2. No acute process in the chest, abdomen, pelvis. [facility] Transcribe Date/Time: May 26 2024 9:26P Dictated by : ESTEE ARREOLA MD This examination was interpreted and the report reviewed and electronically signed by: ESTEE ARREOLA MD on May 26 2024 9:42PM EST [id number] Normal [facility] Comprehensive metabolic 2000 panelon 05-26-2024 Albumin [Mass/Vol] 4.9 g/dL Normal 3.9-4.9 [facility] Comment on above: Order Comment: Speci men Type: BLOOD SPECIMENOrdering Facility: [facility] Address: [address] [place] [address] Performed By: #### L [id number], 84261-9 ####JAIME LABORATORYCLIA [id number] [place] [address] [place] ALP [Catalytic activity/Vol] 63 U/L Normal 34-123 [facility] Comment on above: Order Comment: Speci men Type: BLOOD SPECIMENOrdering Facility: [facility] Address: [address] [place] [address] Performed By: #### L [id number], 90603-7 ####JAIME LABORATORYCLIA [id number] [address] [place] ALT [Catalytic activity/Vol] 16 U/L Normal 7-38 [facility] Comment on above: Order Comment: Speci men Type: BLOOD SPECIMENOrdering Facility: [facility] Address: [address] [place] [address] Performed By: #### L [id number], 75841-3 ####JAIME LABORATORYCLIA [id number] [address] [place] [facility] Anion gap [Moles/Vol] 11 mmol/L Normal 8-15 [facility] Comment on above: Order Comment: Speci men Type: BLOOD SPECIMENOrdering Facility: [facility] Address: [address] [place] [address] Performed By: #### L [id number], 02604-1 ####JAIME LABORATORYCLIA [id number] [address] [place] AST [Catalytic activity/Vol] 18 U/L Normal 13-35 [facility] Comment on above: Order Comment: Speci men Type: BLOOD SPECIMENOrdering Facility: [facility] Address: [address] [place] [address] Performed By: #### L [id number], 95479-7 ####JAIME LABORATORYCLIA [id number] [place] [address] [place] Bilirubin [Mass/Vol] 0.4 mg/dL Normal 0.2-1.3 [facility] Comment on above: Order Comment: Speci men Type: BLOOD SPECIMENOrdering Facility: [facility] Address: [address] [place] [address] Performed By: #### L [id number], 94279-1 ####JAIME LABORATORYCLIA [id number] [place] [address] [place] Calcium [Mass/Vol] 9.5 mg/dL Normal 8.5-10.2 [facility] Comment on above: Order Comment: Speci men Type: BLOOD SPECIMENOrdering Facility: [facility] Address: [address] [place] [address] Performed By: #### L [id number], 66260-3 ####JAIME LABORATORYCLIA [id number] [place] [address] [place] Chloride [Moles/Vol] 103 mmol/L Normal 98-107 [facility] Comment on above: Order Comment: Speci men Type: BLOOD SPECIMENOrdering Facility: [facility] Address: [address] [place] [address] Performed By: #### L [id number], 84831-7 ####JAIME LABORATORYCLIA [id number] [place] [address] [place] CO2 [Moles/Vol] 28 mmol/L Normal 22-30 [facility] Comment on above: Order Comment: Speci men Type: BLOOD SPECIMENOrdering Facility: [facility] Address: [address] [place] [address] Performed By: #### L [id number], 74464-7 ####JAIME LABORATORYCLIA [id number] [place] [address] [place] Creatinine [Mass/Vol] 0.91 mg/dL Normal 0.58-0.96 [facility] Comment on above: Order Comment: Speci men Type: BLOOD SPECIMENOrdering Facility: [facility] Address: [address] [place] [address] Performed By: #### L [id number], 21528-1 ####JAIME LABORATORYCLIA [id number] [place] [address] [place] Creatinine and Glomerular filtration rate.predicted panel (S/P/Bld) 89 mL/min/1.73m??? Normal >=60 [facility] Comment on above: Order Comment: Nataly saenz Type: BLOOD SPECIMENOrdering Facility: [facility] Address: [address] [place] [address] Result Comment: Sveta mated Glomerular Filtration Rate (eGFR) is calculated using the 2020 CKD-EPI creatinine equation. This equation utilizes serum creatinine, sex, and age as parameters. The creatinine assay has traceable calibration to isotope dilution-mass spectrometry. Refer to KDIGO guidelines for clinical interpretation. In patients with unstable renal function, e.g. those with acute kidney injury, the eGFR may not accurately reflect actual GFR. Performed By: #### L [id number], 73992-1 ####JAIME LABORATORYCLIA [id number] [place] [address] [place] Glucose [Mass/Vol] 96 mg/dL Normal 74-99 [facility] Comment on above: Order Comment: Nataly saenz Type: BLOOD SPECIMENOrdering Facility: [facility] Address: [address] [place] [address] Result Comment: The [place] [employer] (ADA) provides guidance for cutoff values for fasting glucose and random glucose. The ADA defines fasting as no caloric intake for at least 8 hours. Fasting plasma glucose results between 100 to 125 mg/dL indicate increased risk for diabetes (prediabetes). Fasting plasma glucose results greater than or equal to 126 mg/dL meet the criteria for diagnosis of diabetes. In the absence of unequivocal hyperglycemia, results should be confirmed by repeat testing. In a patient with classic symptoms of hyperglycemia or hyperglycemic crisis, random plasma glucose results greater than or equal to 200 mg/dL meet the criteria for diagnosis of diabetes. Reference: Standards of Medical Care in Diabetes 2016, [place] [employer]. Diabetes Care. 2016.39(Suppl 1). Performed By: #### L NM6375, 59542-7 ####JAIME LABORATORYCLIA [id number] [place] [address] [place] Potassium [Moles/Vol] 4.3 mmol/L Normal 3.7-5.1 [facility] Comment on above: Order Comment: Speci men Type: BLOOD SPECIMENOrdering Facility: [facility] Address: [address] [place], [place] [address] Performed By: #### L [id number], 42849-0 ####[facility] LABORATORYCLIA [id number] [address] [place] Protein [Mass/Vol] 7.4 g/dL Normal 6.3-8.0 [facility] Comment on above: Order Comment: Speci men Type: BLOOD SPECIMENOrdering Facility: [facility] Address: [address] [place] [address] Performed By: #### L [id number], 69227-7 ####JAIME LABORATORYCLIA [id number] [place] [address] [place] Sodium [Moles/Vol] 142 mmol/L Normal 136-144 [facility] Comment on above: Order Comment: Speci men Type: BLOOD SPECIMENOrdering Facility: [facility] Address: [address] [place] [address] Performed By: #### L [id number], 88154-8 ####[facility] LABORATORYCLIA [id number] [address] Urea nitrogen [Mass/Vol] 13 mg/dL Normal 7-21 [facility] Comment on above: Order Comment: Speci men Type: BLOOD SPECIMENOrdering Facility: [facility] Address: [address] [place] [address] Performed By: #### L [id number], 40584-0 ####[facility]IME LABORATORYCLIA [id number] [place] [address] [place] D dimer FEU PPP-mCncon 05-26 Fibrin D-dimer FEU (PPP) [Mass/Vol] <190 Normal <500 [facility] Comment on above: Order Comment: Speci men Type: BLOOD SPECIMENOrdering Facility: [facility] Address: [address] [place] [address] Performed By: #### 4 8065-7 ####[facility] LABORATORYCLIA [id number] [address] [place] ECG COMPLETEon 05-26-2024 ECG COMPLETE Ventricular Rate : 9 8 BPM Atrial Rate : 98 BPM P-R Interval : 118 ms QRS Duration : 86 ms Q-T Interval : 348 ms QTC Calculation(Bazett) : 444 ms Calculated P [place] : 76 degrees Calculated R [place] : 61 degrees Calculated T [place] : -35 degrees NORMAL SINUS RHYTHM WITH SINUS ARRHYTHMIA POSSIBLE LEFT ATRIAL ENLARGEMENT ST and T WAVE ABNORMALITY, CONSIDER INFEROLATERAL ISCHEMIA ABNORMAL ECG 1616 Confirmed by DANIEL RAMOS DO ([id number]), editorial specialist BRISEYDA FARMER ([id number]) on 05/27/2024 9:34:33 AM NAME : AMIE BRAXTON PID : [id number] : 1995 Gender : Female Race : ORD : [id number] Procedure Date : May 26 2024 16:11:11 Edit Date : May 27 2024 09:34:38 Diagnosis: NORMAL SINUS RHYTHM WITH SINUS ARRHYTHMIA POSSIBLE LEFT ATRIAL ENLARGEMENT ST and T WAVE ABNORMALITY, CONSIDER INFEROLATERAL ISCHEMIA ABNORMAL ECG 1616 Confirmed by DANIEL RAMOS DO ([id number]), editorial specialist BRISEYDA FARMER ([id number]) on 05/27/2024 9:34:33 AM Test Reason : Chest Pain Location : 1 : ER ED Overread By : DANIEL RAMOS DO Edited By : BRISEYDA FARMER Referred By : , Acquired by : hema [facility] ED NOTEon 05-26-2024 ED NOTE HNO ID: [id number] Author: BEVERLY SCRUGGS RN Service: ? Author Type: Registered Nurse Type: ED Notes Filed: 05/26/2024 22:53 Note Text: Discharge instructions d/w pt and family at bedside. Stated understanding with no further questions for this nurse. Encouraged f/u with PCP and referring doctors given. Stated understanding. Prescription(S) were given X0. [facility] ED NOTE HNO ID: [id number] Author: GABRIELLA GREENE DO Service: Emergency Medicine Author Type: Physician Type: ED Notes Filed: 05/27/2024 03:56 Note Text: 28F Hx POTS cc CP [ ] CTA ED Course as of 05/27/24 0356 Gabriella Greene's Documentation Sat May 26, 20247 CTA CHEST (GATED) WO/W IVCON IMPRESSION: 1. No acute aortic pathology identified. 2. No acute process in the chest, abdomen, pelvis. 2146 CTA ABD/PEL W IVCON IMPRESSION: 1. No acute aortic pathology identified. 2. No acute process in the chest, abdomen, pelvis. 2154 Urinalysis, reflex Microscopic: Color Yellow Clarity Clear Glucose, Urine Negative Bilirubin, Urine Negative Ketones, Urine Negative Specific [place], Ur 1.010 Hemoglobin/Blood,Ur Negative pH, Urine 7.5 Protein, Urine Negative Urobilinogen 0.2 EU/dL Nitrites Negative Leukest Negative No UTI 2241 Patient reevaluated. States that her chest pain is completely resolved and no longer feels better. States that she has her baseline dizziness and headache. States that this is unchanged and it is her baseline. She denies any shortness of breath, weakness, numbness. States that she no longer has the feeling on the left side of her body that she had prior. Patient is states that she is comfortable going home. Discussed labs and imaging and answered all questions at bedside. Did offer admission/observation if patient's symptoms had not fully resolved and patient states that she referred to go home. Mother and significant other at bedside are also comfortable patient being discharged. Allquestions answered. Given return precautions. Clinical Impressions as of 05/27/24 0356 Chest pain, unspecified type POTS (postural orthostatic tachycardia syndrome) PCOS (polycystic ovarian syndrome) Anxiety Patient reevaluated. See ED course above. Patient states she felt better. Answered many and all questions at bedside. Patient states that she feels comfortable going home. Family and significant other comfortable to plan. Patient told return if she notes any worsening chest pain, shortness of breath, nausea, vomiting, diarrhea, weakness, numbness or any other worsening/concerning symptoms. Patient discharged. Gabriella Greene, DO [facility] ED NOTE HNO ID: [id number] Author: NICOLA SEARS RN Service: ? Author Type: Registered Nurse Type: ED Notes Filed: 05/26/2024 19:00 Note Text: Ct called to see to when pt will go over pt will be the next pt to go [facility] ED NOTE HNO ID: [id number] Author: NICOLA SEARS RN Service: ? Author Type: Registered Nurse Type: ED Notes Filed: 05/26/2024 17:12 Note Text: Pt chest pain is not new. Pt has had this going on for months. Pt aware of plan of care. Pt up to bathroom without difficulty, was given a warm blanket and has call light at bedside [facility] ED NOTE HNO ID: [id number] Author: EMANI CADET, JEFFREY Service: ? Author Type: Registered Nurse Type: ED Notes Filed: 05/26/2024 16:27 Note Text: Patient presents to ED with chest pain that started a few hours prior to arrival. EKG obtained and handed to provider. IV stared. Labs obtained and sent [facility] ED PROV NOTEon 05-26-2024 ED PROV NOTE HNO ID: [id number] Author: DANIEL RAMOS DO Service: Emergency Medicine Author Type: Physician Type: ED Provider Notes Filed: 05/27/2024 12:05 Note Text: ED Provider Note Patient Name: Amie Braxton : 1995 SERVICE DATE: 05/26/24 History Patient presents with: Chest Pain Amie Braxton is a 28-year-old female is presenting to the emergency department left-sided chest pain. States that stabbing in nature began shortly prior to arrival. With this episode she began having some heaviness in the left side of her face and body which had her concerned. She states she has had multiple episodes in the past and has been informally diagnosed with POTS. She does have an abnormal EKG though has had echocardiograms and cardiology workups which have been unremarkable thus far. She states that this chest pain is different secondary to the weakness that she experienced. PAST MEDICAL HISTORY Diagnosis Date Asthma Generalized anxiety disorder Seasonal allergies PAST SURGICAL HISTORY Procedure Laterality Date TONSILLECTOMY AND ADENOIDECTOMY FAMILY HISTORY Problem Relation Age of Onset No Known Problems Mother No Known Problems Father No Known Problems Sister Skin Cancer Maternal Grandmother Diabetes Paternal Grandmother Social History Tobacco Use Smoking status: Never Smokeless tobacco: Never Vaping Use Vaping status: Never Used Substance and Sexual Activity Alcohol use: Never Drug use: Never Sexual activity: Yes ALLERGIES Allergen Reactions Beef Containing Pro* Intolerance migraines Migraines, upset stomach Beef Derived (Bovin* Hives Beta-Blockers (Beta* Contraindication-Medical Surgical Patient carries Epipen for pineapple allergy. Egg Derived GI Upset Vomiting even with ingredient of egg Milk Containing Pro* Intolerance, Hives Vomiting. Pineapple Hives, Swelling Hives, difficulty breathing Soy GI Upset vomiting Tree Nuts Other: See Comments Asthma flaring, difficulty breathing Vancomycin Analogues Hives Review of Systems Constitutional: Negative for chills and fever. HENT: Negative for congestion, rhinorrhea and sore throat. Respiratory: Negative for cough and shortness of breath. Cardiovascular: Positive for chest pain. Negative for palpitations and leg swelling. Gastrointestinal: Negative for abdominal pain, diarrhea, nausea and vomiting. Genitourinary: Negative for dysuria and hematuria. Musculoskeletal: Negative for back pain. Skin: Negative for pallor, rash and wound. Neurological: Positive for numbness (left face). Negative for headaches. Psychiatric/Behavioral: Negative for confusion. Physical Exam Vitals [05/26/24 1612] BP Pulse Temp Temp src Resp SpO2 Weight Height 140/76 (!) 103 37.1 ?C (98.8 ?F) Temporal 16 98 % 49.9 kg (110 lb) -- Physical Exam Vitals and nursing note reviewed. Constitutional: General: She is not in acute distress. Appearance: She is well-developed. HENT: Head: Normocephalic and atraumatic. Right Ear: External ear normal. Left Ear: External ear normal. Eyes: General: No scleral icterus. Right eye: No discharge. Left eye: No discharge. Conjunctiva/sclera: Conjunctivae normal. Pupils: Pupils are equal, round, and reactive to light. Cardiovascular: Rate and Rhythm: Normal rate and regular rhythm. Heart sounds: No murmur heard. No friction rub. No gallop. Pulmonary: Effort: Pulmonary effort is normal. No respiratory distress. Breath sounds: Normal breath sounds. No wheezing, rhonchi or rales. Chest: Chest wall: No tenderness. Abdominal: General: Bowel sounds are normal. There is no distension. Palpations: Abdomen is soft. There is no mass. Tenderness: There is no abdominal tenderness. There is no guarding or rebound. Musculoskeletal: General: No tenderness or deformity. Normal range of motion. Cervical back: Normal range of motion and neck supple. Lymphadenopathy: Cervical: No cervical adenopathy. Skin: General: Skin is warm and dry. Coloration: Skin is not pale. Findings: No erythema or rash. Neurological: Mental Status: She is alert and oriented to person, place, and time. Diagnostic Testing ED Labs Ordered and Reviewed COMPLETE BLOOD COUNT AND DIFFERENTIAL - Abnormal; Notable for the following components: Result Value Ref Range RBC 5.37 (*) 3.90 - 5.20 m/uL Hemoglobin 16.1 (*) 11.5 - 15.5 g/dL Hematocrit 47.2 (*) 36.0 - 46.0 % All other components within normal limits COMPREHENSIVE METABOLIC PANEL - Normal D-DIMER - Normal Narrative: 500 ng/mL FEU is the D Dimer cutoff to exclude DVT (deep vein thrombosis) and PE (pulmonary embolism) in patients with a low pre test probability. Supplemental Comment: In patients over 50 years with a low pre test probability for DVT and/or PE, an age adjusted D dimer cutoff can be calculated as [age x 10] ng/mL FEU. For example, a patient of 88 years would have an ag (more content not included)... Normal [facility] HIGH SENSITIVITY TROPONIN T (INITIAL)on 05-26-2024 Troponin T.cardiac High sensitivity method [Mass/Vol] <6 Normal <12 [facility] Comment on above: Order Comment: Nataly saenz Type: BLOOD SPECIMENOrdering Facility: [facility] Address: [address] [place] [address] Performed By: #### L [id number], 04520-1 ####JAIME LABORATORYCLIA [id number] [address] [place] HIGH SENSITIVITY TROPONIN T (SECOND)on 05-26-2024 Troponin T.cardiac High sensitivity method [Mass/Vol] <6 Normal <12 [facility] Comment on above: Order Comment: Nataly saenz Type: BLOOD SPECIMENOrdering Facility: [facility] Address: [address] [place] [address] Performed By: #### L [id number] ####JAIME LABORATORYCLIA [id number] [place] [address] [place] URINALYSIS, REFLEX MICROSCOP ICon 05-26-2024 Bilirubin Ql (U) Negative Normal Negative [facility] Comment on above: Order Comment: Nataly men Type: URINE SPECIMENOrdering Facility: [facility] Address: [address] [place] [address] Performed By: #### L [id number] ####JAIME LABORATORYCLIA [id number] [place] [address] [facility] [place] Clarity (Unsp spec) Clear Normal Clear [facility] Comment on above: Order Comment: Speci men Type: URINE SPECIMENOrdering Facility: [facility] Address: [address] [place] [address] Performed By: #### L [id number] ####JAIME LABORATORYCLIA [id number] [place] [address] [place] Color (U) Yellow Normal Yellow [facility] Comment on above: Order Comment: Speci men Type: URINE SPECIMENOrdering Facility: [facility] Address: [address] [place] [address] Performed By: #### L [id number] ####JAIME LABORATORYCLIA [id number] [address] [place] Glucose Test strip (U) [Mass/Vol] Negative Normal Negative [facility] Comment on above: Order Comment: Speci men Type: URINE SPECIMENOrdering Facility: [facility] Address: [address] [place] [address] Performed By: #### L [id number] ####JAIME LABORATORYCLIA [id number] [address] [place] Hemoglobin Ql (U) Negative Normal Negative [facility] Comment on above: Order Comment: Speci men Type: URINE SPECIMENOrdering Facility: [facility] Address: [address] [place] [address] Performed By: #### L [id number] ####JAIME LABORATORYCLIA [id number] [place] [id number] [facility] [place] Ketones Ql (U) Negative Normal Negative [facility] Comment on above: Order Comment: Speci men Type: URINE SPECIMENOrdering Facility: [facility] Address: [address] [place] [address] Performed By: #### L [id number] ####JAIME LABORATORYCLIA [id number] [address] Leukocyte esterase Test strip Ql (U) Negative Normal Negative [facility] Comment on above: Order Comment: Speci men Type: URINE SPECIMENOrdering Facility: [facility] Address: [address] [place] [address] Performed By: #### L [id number] ####JAIME LABORATORYCLIA [id number] [place] [address] [place] Nitrite Ql (U) Negative Normal Negative [facility] Comment on above: Order Comment: Speci men Type: URINE SPECIMENOrdering Facility: [facility] Address: [address] [place] [address] Performed By: #### L [id number] ####JAIME LABORATORYCLIA [id number] [place] [address] [place] pH (U) 7.5 [pH] Normal 5.0-8.0 [facility] Comment on above: Order Comment: Speci men Type: URINE SPECIMENOrdering Facility: [facility] Address: [address] [place] [address] Performed By: #### L [id number] ####[facility] LABORATORYCLIA [id number] [place] [address] [place] Protein (U) [Mass/Vol] Negative Normal Negative [facility] Comment on above: Order Comment: Speci men Type: URINE SPECIMENOrdering Facility: [facility] Address: [address] [place] [address] Performed By: #### L [id number] ####[facility] LABORATORYCLIA [id number] [place] [address] [place] Specific gravity (U) [Rel density] 1.010 Normal 1.005-1.030 [facility] Comment on above: Order Comment: Speci men Type: URINE SPECIMENOrdering Facility: [facility] Address: [address] [place] [address] Performed By: #### L [id number] ####JAIME LABORATORYCLIA [id number] [place] [address] [place] Urobilinogen Ql (U) 0.2 EU/dL Normal 0.2-1.0 EU/dL [facility] Comment on above: Order Comment: Speci men Type: URINE SPECIMENOrdering Facility: [facility] Address: [address] [place] [address] Performed By: #### L [id number] ####JAIME LABORATORYCLIA [id number] [place] [address] [place] CBC W Auto Differential pane l (Bld)on 05-21-2024 Basophils (Bld) [#/Vol] 0.03 10*3/uL Normal <0.11 [facility] Comment on above: Order Comment: Speci men Type: BLOOD SPECIMENOrdering Facility: [facility] Address: [address] [place] [address] Performed By: #### 5 7021-8 ####[facility] LABCLIA [id number] [place] [id number] [place] [facility] Basophils/100 WBC (Bld) 0.4 % Normal [facility] Comment on above: Order Comment: Speci men Type: BLOOD SPECIMENOrdering Facility: [facility] Address: [address] [place] [address] Performed By: #### 5 7021-8 ####[facility] LABCLIA [id number] [place] [address] [facility] Differential cell count method Nom (Bld) Auto Normal [facility] Comment on above: Order Comment: Speci men Type: BLOOD SPECIMENOrdering Facility: [facility] Address: [address] [place] [address] Performed By: #### 5 7021-8 ####[facility] LABCLIA [id number] [place] [address] [place] Eosinophils (Bld) [#/Vol] 0.11 10*3/uL Normal <0.46 [facility] Comment on above: Order Comment: Speci men Type: BLOOD SPECIMENOrdering Facility: [facility] Address: [address] [place] [address] Performed By: #### 5 7021-8 ####[facility] LABCLIA [id number] [place] [address] [facility] Eosinophils/100 WBC (Bld) 1.5 % Normal [facility] Comment on above: Order Comment: Speci men Type: BLOOD SPECIMENOrdering Facility: [facility] Address: [address] [place] [address] Performed By: #### 5 7021-8 ####[facility] LABCLIA [id number] [place] [address] [place] Erythrocyte distribution width (RBC) [Ratio] 12.5 % Normal 11.5-15.0 [facility] Comment on above: Order Comment: Speci men Type: BLOOD SPECIMENOrdering Facility: [facility] Address: [address] [place] [address] Performed By: #### 5 7021-8 ####[facility] LABCLIA [id number] [place] [address] [place] Hematocrit (Bld) [Volume fraction] 45.6 % Normal 36.0-46.0 [facility] Comment on above: Order Comment: Speci men Type: BLOOD SPECIMENOrdering Facility: [facility] Address: [address] [place] [address] Performed By: #### 5 7021-8 ####[facility] LABCLIA [id number] [place] [address] [place] Hemoglobin (Bld) [Mass/Vol] 15.7 g/dL High 11.5-15.5 [facility] Comment on above: Order Comment: Speci men Type: BLOOD SPECIMENOrdering Facility: [facility] Address: [address] [place] [address] Performed By: #### 5 7021-8 ####[facility] LABCLIA [id number] [place] [address] [place] Immature granulocytes (Bld) [#/Vol] 10*3/uL Normal <0.10 [facility] Comment on above: Order Comment: Speci men Type: BLOOD SPECIMENOrdering Facility: [facility] Address: [address] [place] [address] Performed By: #### 5 7021-8 ####[facility] LABCLIA [id number] [place] [address] [facility] Immature granulocytes/100 WBC (Bld) 0.1 % Normal [facility] Comment on above: Order Comment: Speci men Type: BLOOD SPECIMENOrdering Facility: [facility] Address: [address] [place] [address] Performed By: #### 5 7021-8 ####[facility] LABCLIA [id number] [place] [address] [place] Lymphocytes (Bld) [#/Vol] 1.74 10*3/uL Normal 1.00-4.00 [facility] Comment on above: Order Comment: Speci men Type: BLOOD SPECIMENOrdering Facility: [facility] Address: [address] [place] [address] Performed By: #### 5 7021-8 ####[facility] LABCLIA [id number] [place] [id number] [facility] Lymphocytes/100 WBC (Bld) 23.2 % Normal [facility] Comment on above: Order Comment: Speci men Type: BLOOD SPECIMENOrdering Facility: [facility] Address: [address] [place] [address] Performed By: #### 5 7021-8 ####[facility] LABCLIA [id number] [place] [address] [place] MCH (RBC) [Entitic mass] 30.4 pg Normal 26.0-34.0 [facility] Comment on above: Order Comment: Speci men Type: BLOOD SPECIMENOrdering Facility: [facility] Address: [address] [place] [address] Performed By: #### 5 7021-8 ####[facility] LABCLIA [id number] [place] [address] [place] MCHC (RBC) [Mass/Vol] 34.4 g/dL Normal 30.5-36.0 [facility] Comment on above: Order Comment: Speci men Type: BLOOD SPECIMENOrdering Facility: [facility] Address: [address] [place] [address] Performed By: #### 5 7021-8 ####[facility] LABCLIA [id number] [place] [address] [place] MCV (RBC) [Entitic vol] 88.4 fL Normal 80.0-100.0 [facility] Comment on above: Order Comment: Speci men Type: BLOOD SPECIMENOrdering Facility: [facility] Address: [address] [place] [address] Performed By: #### 5 7021-8 ####[facility]CLIA [id number] [place] [address] [place] Monocytes (Bld) [#/Vol] 0.41 10*3/uL Normal <0.87 [facility] Comment on above: Order Comment: Speci men Type: BLOOD SPECIMENOrdering Facility: [facility] Address: [address] [place] [address] Performed By: #### 5 7021-8 ####[facility]CLIA [id number] [place] [address] [place] Monocytes/100 WBC (Bld) 5.5 % Normal [facility] Comment on above: Order Comment: Speci men Type: BLOOD SPECIMENOrdering Facility: [facility] Address: [address] [place] [address] Performed By: #### 5 7021-8 ####[facility]CLIA [id number] [place] [address] [place] Neutrophils (Bld) [#/Vol] 5.21 10*3/uL Normal 1.45-7.50 [facility] Comment on above: Order Comment: Speci men Type: BLOOD SPECIMENOrdering Facility: [facility] Address: [address] [place] [address] Performed By: #### 5 7021-8 ####[facility]CLIA [id number] [place] [address] [place] Neutrophils/100 WBC (Bld) 69.3 % Normal [facility] Comment on above: Order Comment: Speci men Type: BLOOD SPECIMENOrdering Facility: [facility] Address: [address] [place] [address] Performed By: #### 5 7021-8 ####[facility]CLIA [id number] [place] [address] [place] Nucleated RBC (Bld) [#/Vol] Normal [facility] [facility] Comment on above: Order Comment: Speci men Type: BLOOD SPECIMENOrdering Facility: [facility] Address: [address] [place] [address] Performed By: #### 5 7021-8 ####[facility] LABCLIA [id number] [place] [address] [place] Nucleated RBC/100 WBC (Bld) [Ratio] Normal [facility] Comment on above: Order Comment: Speci men Type: BLOOD SPECIMENOrdering Facility: [facility] Address: [address] [place] [address] Performed By: #### 5 7021-8 ####[facility] LABCLIA [id number] [place] [address] [place] Platelet mean volume (Bld) [Entitic vol] 10.2 fL Normal 9.0-12.7 [facility] Comment on above: Order Comment: Speci men Type: BLOOD SPECIMENOrdering Facility: [facility] Address: [address] [place] [address] Performed By: #### 5 7021-8 ####[facility] LABCLIA [id number] [place] [address] [place] Platelets (Bld) [#/Vol] 296 10*3/uL Normal 150-400 [facility] Comment on above: Order Comment: Speci men Type: BLOOD SPECIMENOrdering Facility: [facility] Address: [facility] [place] [address] Performed By: #### 5 7021-8 ####[facility] LABCLIA [id number] [place] [address] [place] RBC (Bld) [#/Vol] 5.16 10*6/uL Normal 3.90-5.20 [facility] Comment on above: Order Comment: Speci men Type: BLOOD SPECIMENOrdering Facility: [facility] Address: [address] [place] [address] Performed By: #### 5 7021-8 ####[facility] LABCLIA [id number] [place] [address] [place] WBC (Bld) [#/Vol] 7.51 10*3/uL Normal 3.70-11.00 [facility] Comment on above: Order Comment: Speci men Type: BLOOD SPECIMENOrdering Facility: [facility] Address: [address] [place] [address] Performed By: #### 5 7021-8 ####[facility] LABCLIA [id number] [place] [address] [facility] Comprehensive metabolic 2000 panelon 05-21-2024 Albumin [Mass/Vol] 4.6 g/dL Normal 3.9-4.9 [facility] Comment on above: Order Comment: Speci men Type: BLOOD SPECIMENOrdering Facility: [facility] Address: [address] [place] [address] Performed By: #### 2 4323-8 ####[facility] LABCLIA [id number] [place] [address] [place] ALP [Catalytic activity/Vol] 55 U/L Normal 34-123 [facility] Comment on above: Order Comment: Speci men Type: BLOOD SPECIMENOrdering Facility: [facility] Address: [address] [place] [address] Performed By: #### 2 4323-8 ####[facility] LABCLIA [id number] [place] [address] [place] ALT [Catalytic activity/Vol] 22 U/L Normal 7-38 [facility] Comment on above: Order Comment: Speci men Type: BLOOD SPECIMENOrdering Facility: [facility] Address: [address] [place] [address] Performed By: #### 2 4323-8 ####[facility] LABCLIA [id number] [place] [address] [place] Anion gap [Moles/Vol] 6 mmol/L Low 8-15 [facility] Comment on above: Order Comment: Speci men Type: BLOOD SPECIMENOrdering Facility: [facility] Address: [address] [place] [address] Performed By: #### 2 4323-8 ####[facility] LABCLIA [id number] [place] [address] [place] AST [Catalytic activity/Vol] 16 U/L Normal 13-35 [facility] Comment on above: Order Comment: Speci men Type: BLOOD SPECIMENOrdering Facility: [facility] Address: [address] [place] [address] Performed By: #### 2 4323-8 ####[facility] LABCLIA [id number] [place] [address] [place] Bilirubin [Mass/Vol] 0.4 mg/dL Normal 0.2-1.3 [facility] Comment on above: Order Comment: Speci men Type: BLOOD SPECIMENOrdering Facility: [facility] Address: [address] [place] [address] Result Comment: Use of this assay is not recommended for patients undergoing treatment with eltrombopag due to the potential for falsely elevated results. Performed By: #### 2 4323-8 ####[facility] LABCLIA [id number] [place] [address] [facility] Calcium [Mass/Vol] 9.5 mg/dL Normal 8.5-10.2 [facility] Comment on above: Order Comment: Speci men Type: BLOOD SPECIMENOrdering Facility: [facility] Address: [address] [place] [address] Performed By: #### 2 4323-8 ####[facility] LABCLIA [id number] [place] [address] [place] Chloride [Moles/Vol] 105 mmol/L Normal 98-107 [facility] Comment on above: Order Comment: Speci men Type: BLOOD SPECIMENOrdering Facility: [facility] Address: [address] [place] [address] Performed By: #### 2 4323-8 ####[facility] LABCLIA [id number] [place] [address] [place] CO2 [Moles/Vol] 28 mmol/L Normal 22-30 [facility] Comment on above: Order Comment: Speci men Type: BLOOD SPECIMENOrdering Facility: [facility] Address: [address] [place] [address] Performed By: #### 2 4323-8 ####[facility] LABCLIA [id number] [place] [id number] [facility] Creatinine [Mass/Vol] 0.75 mg/dL Normal 0.58-0.96 [facility] Comment on above: Order Comment: Speci men Type: BLOOD SPECIMENOrdering Facility: [facility] Address: [address] [place] [address] Result Comment: Use of this assay is not recommended for patients undergoing treatment with phenindione, due to the potential for falsely depressed results. Performed By: #### 2 4323-8 ####[facility] LABCLIA [id number] [place] [id number] [facility] Creatinine and Glomerular filtration rate.predicted panel (S/P/Bld) 113 mL/min/1.73m??? Normal >=60 [facility] Comment on above: Order Comment: Speci dany Type: BLOOD SPECIMENOrdering Facility: [facility] Address: [address] [place] [address] Result Comment: Sveta mated Glomerular Filtration Rate (eGFR) is calculated using the 2020 CKD-EPI creatinine equation. This equation utilizes serum creatinine, sex, and age as parameters. The creatinine assay has traceable calibration to isotope dilution-mass spectrometry. Refer to KDIGO guidelines for clinical interpretation. In patients with unstable renal function, e.g. those with acute kidney injury, the eGFR may not accurately reflect actual GFR. Performed By: #### 2 4323-8 ####[facility] LABCLIA [id number] [place] [address] [place] Glucose [Mass/Vol] 127 mg/dL High 74-99 [facility] Comment on above: Order Comment: Speci men Type: BLOOD SPECIMENOrdering Facility: [facility] Address: [address] [place] [address] Result Comment: The [place] Diabetes Association (ADA) provides guidance for cutoff values for fasting glucose and random glucose. The ADA defines fasting as no caloric intake for at least 8 hours. Fasting plasma glucose results between 100 to 125 mg/dL indicate increased risk for diabetes (prediabetes).Fasting plasma glucose results greater than or equal to 126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 of exercise-induced asthma and PCOS. She presented to [facility] with dizziness. She developed chest bubbling sensation, burning stinging midsternal nonradiating CP. Her heart rate was noted to be [address] with diffuse ST depressions transferred to [facility] for concern of SCAD. Troponin and BNP negative. TTE shows normal LVEF with no WMA. Cardiac workup was negative and her symptoms felt to be r/t orthostatic tachycardia. She had outpatient EST which was negative for inducible ischemia. Today she is here for hospital follow up with her bf. She feels dizzy all the time. She is still having heart palpitations. She has been having burning/stinging sensation from her head to her body a few times but not intense as before. She feels worse at night. She hasn't worked since hospitalization and she feels fatigued. Denies lightheadedness, dizziness, syncope, presyncope, blurring or fading of vision, generalized weakness, fatigue, mental clouding, anxiety, nausea, dyspnea, or headache. ROS All other systems were reviewed and are negative unless noted in the HPI. Allergies Allergen Reactions Valier Oil Other reaction(s): Other (See Comments), Other (See Comments) Asthma exacerbation Asthma exacerbation Beef Allergy Hives Cvs Digestive Probiotic [Lactase-Lactobacillus] Hives Egg-Derived Products Hives Food allergy Lactose Other reaction(s): Unknown Allergy to all dairy Milk-Related Compounds Dairy. Emesis, upset stomach Nitrofurantoin Other reaction(s): Other (See Comments), Other (See Comments), Unknown Migraines, upset stomach Migraines, upset stomach Migraines, upset stomach Migraine and light headed Migraine and light headed Migraines, upset stomach Peanut Allergen Powder-Dnfp Hives Peanut-Containing Drug Products Asthma, emesis Pineapple Hives and Swelling Soy Allergy Other reaction(s): GI Intolerance, GI Intolerance, GI Upset, Unknown Soybean-Containing Drug Products Soy, Migraines and upset stomach Vancomycin Hives Outpatient Medications Prior to Visit Medication Sig Dispense Refill albuterol 0.63 MG/3ML nebulizer solution Inhale 1 ampule. albuterol 108 (90 Base) MCG/ACT inhaler Inhale 1 puff every 6 hours as needed. cyanocobalamin (Vitamin B-12) 1000 MCG tablet Take 1 tablet (1,000 mcg) by mouth daily. 30 tablet 11 pantoprazole (ProtoNix) 40 MG EC tablet Take 1 tablet (40 mg) by mouth Nightly. Do not crush, chew, or split. 30 tablet 0 No facility-administered medications prior to visit. Past Medical History: Diagnosis Date Exercise-induced asthma IC (interstitial cystitis) Multiple food allergies Social History Tobacco Use Smoking status: Never Smokeless tobacco: Not on file Substance Use Topics Alcohol use: Not on file Past Surgical History: Procedure Laterality Date TONSILLECTOMY No family history on file. Objective Vitals: 03/14/24 0944 BP: 114/73 BP Location: Left arm Patient Position: Sitting BP Cuff Size: Adult Pulse: 77 SpO2: 98% Weight: 108 lb 3.2 oz (49.1 kg) Height: 5' (1.524 m) Physical Exam Constitutional: General: She is not in acute distress. Appearance: Normal appearance. Neck: Vascular: No JVD. Cardiovascular: Rate and Rhythm: Normal rate and regular rhythm. Pulses: Normal pulses. Heart sounds: Normal heart sounds. No murmur heard. Pulmonary: Effort: Pulmonary effort is normal. Breath sounds: Normal breath sounds. No rales. Skin: General: Skin is warm and dry. Neurological: Mental Status: She is alert and oriented to person, place, and time. Psychiatric: Mood and Affect: Mood normal. Speech (more content not included)... Normal [facility] Cardiac stress study Procedu reOrdered By: Yuan Raya on 03-06-2024 Baseline Diastolic BP 72 mmHg [facility] Work Phone: Baseline HR 94 bpm [facility] Work Phone: Baseline Systolic BP 104 mmHg [facility] Work Phone: [phone] Exercise Duration Seconds 10 sec [facility] Work Phone: [phone] Exercise Duration Time 7 min [facility] Work Phone: Recovery Stage 1 BP 118/64 mmHg [facility] Work Phone: [phone] Recovery Stage 1 Duration 1 min:sec [facility] Work Phone: [phone] Recovery Stage 1 HR 137 bpm [facility] Work Phone: Recovery Stage 2 BP 114/70 mmHg [facility] [employer] Work Phone: Recovery Stage 2 Duration 2 min:sec [facility] [employer] Work Phone: Recovery Stage 2 HR 116 bpm [facility] Work Phone: Recovery Stage 3 BP 100/68 mmHg [facility] Work Phone: Recovery Stage 3 Duration 5:43 min:sec [facility] Work Phone: Recovery Stage 3 HR 100 bpm [facility] Work Phone: Stress Diastolic BP 72 mmHg [facility] Work Phone: Stress Estimated Workload 8.7 METS [facility] Work Phone: Stress Peak HR 166 bpm [facility] Work Phone: Stress Percent HR Achieved 86 % [facility] Work Phone: Stress Rate Pressure Product 42766 bpm*mmHg [facility] Work Phone: Stress ST Depression 0 mm [facility] Work Phone: Stress Stage 1 BP 110/72 mmHg [facility] Work Phone: Stress Stage 1 Duration 3 min:sec [facility] Work Phone: Stress Stage 1 HR 115 bpm [facility] Work Phone: Stress Stage 2 BP 114/72 mmHg [facility] Work Phone: Stress Stage 2 Duration 6 min:sec [facility] [employer] Work Phone: Stress Stage 2 HR 139 bpm [facility] Work Phone: Stress Stage 3 Comments Baseline 5/10 chest tightness increased to 7/10 with stress. Patient with severe dizziness and dyspnea during stress [facility] [employer] Work Phone: Stress Stage 3 Duration 7:10 min:sec [facility] [employer] Work Phone: Stress Stage 3 HR 166 bpm [facility]abjit whalen Work Phone: Stress Systolic BP 114 mmHg [facility] [employer] Work Phone: Stress Target HR 194 bpm [facility] Work Phone: Cardiac stress study Nova darnell 03-06-2024 Stress ECG: Conclusi on: The stress test had minor ST changes of no clinical significance. The stress test is normal. Stress Test: A Jonny protocol stress test was performed. Overall, the patient's exercise capacity was average for their age. The patient exercised for 7 min and 10 sec. Hemodynamics are adequate for diagnosis. Blood pressure demonstrated a blunted response and heart rate demonstrated a normal response to stress. The patient's heart rate recovery was normal. The patient reported chest pain, dizziness, dyspnea and fatigue during the stress test. Chest pain was characterized as tightness. Resting ECG: The ECG shows normal sinus rhythm. Resting ECG shows non-specific T waves. Resting ECG The ECG shows normal sinus rhythm. Resting ECG shows non-specific T waves. Stress Findings A Jonny protocol stress test was performed. Overall, the patient's exercise capacity was average for their age. The patient exercised for 7 min and 10 sec. Cherelle rating of perceived exertion was 17. Hemodynamics are adequate for diagnosis. Blood pressure demonstrated a blunted response and heart rate demonstrated a normal response to stress. The patient's heart rate recovery was normal. The patient reported chest pain prior to the stress test. Chest pain was characterized as tightness prior to the stress test. The patient reported chest pain, dizziness, dyspnea and fatigue during the stress test. Chest pain was characterized as tightness. Symptoms began prior to stress and persisted during recovery. The test was stopped because the patient experienced dizziness and dyspnea. Stress ECG There were no arrhythmias during stress. Non-significant (<1mm) upsloping ST depression was noted. There were no noted arrhythmias during recovery. There were no ST changes during recovery. Conclusion: The stress test had minor ST changes of no clinical significance. The stress test is normal. CV EPIPHANY Progress Noteon 03-06-2024 Progress Note Stress test reviewed . Follow up as scheduled Normal [facility] CBC W Auto Differential pane l (Bld)on 03-01-2024 Basophils (Bld) [#/Vol] 0.0 10*3/uL 0.0 - 0.2 10*3/uL [facility] Basophils/100 WBC (Bld) 0.6 % 0.0 - 2.0 % [facility] Eosinophils (Bld) [#/Vol] 0.1 10*3/uL 0.0 - 0.5 10*3/uL [facility] Eosinophils/100 WBC (Bld) 1.8 % 0.0 - 6.0 % [facility] Erythrocyte distribution width (RBC) [Ratio] 13.2 % 11.5 - 15.0 % [facility] Hematocrit (Bld) [Volume fraction] 37.9 % 35.0 - 47.0 % [facility] Hemoglobin (Bld) [Mass/Vol] 12.7 g/dL 11.7 - 16.0 g/dL [facility] Immature granulocytes (Bld) [#/Vol] 0.0 10*3/uL NINF - 0.1 10*3/uL [facility] Immature granulocytes/100 WBC (Bld) 0.4 % 0.0 - 2.0 % [facility] Interpretation and review of laboratory results Normal [facility] Lymphocytes (Bld) [#/Vol] 1.8 10*3/uL 1.0 - 4.3 10*3/uL [facility] Lymphocytes/100 WBC (Bld) 34.8 % 15.0 - 45.0 % [facility] MCH (RBC) [Entitic mass] 29.8 pg 26.0 - 34.0 pg [facility] MCHC (RBC) [Mass/Vol] 33.5 % 30.5 - 36.0 % [facility] MCV (RBC) [Entitic vol] 89.0 fL 77.0 - 99.0 fL [facility] Monocytes (Bld) [#/Vol] 0.4 10*3/uL 0.0 - 0.9 10*3/uL [facility] Monocytes/100 WBC (Bld) 8.5 % 5.0 - 13.0 % [facility] Neutrophils (Bld) [#/Vol] 2.7 10*3/uL 1.8 - 7.5 10*3/uL [facility] Neutrophils/100 WBC (Bld) 53.9 % 38.0 - 82.0 % [facility] Nucleated RBC/100 WBC (Bld) [Ratio] 0.0 % [facility] Platelet mean volume (Bld) [Entitic vol] 11.7 fL 9.0 - 12.7 fL [facility] Platelets (Bld) [#/Vol] 216 10*3/uL 140 - 440 10*3/uL [facility] RBC (Bld) [#/Vol] 4.26 10*6/uL 3.80 - 5.2 0 10*6/uL [facility] WBC (Bld) [#/Vol] 5.1 10*3/uL 3.6 - 10.7 10*3/uL [facility] CBC WITH AUTO DIFFERENTIALon 03-01-2024 Basophils (Bld) [#/Vol] 0.0 10*3/uL Normal 0.0-0.2 [facility] Comment on above: Performed By: #### L [id number] ####Prune Washer: MARQUITA BONILLA ([id number])[facility])[address] [place] [address] Basophils/100 WBC (Bld) 0.6 % Normal 0.0-2.0 [facility] Comment on above: Performed By: #### L [id number] ####Prune Washer: MARQUITA BONILLA ([id number])[facility] ([facility])[address] [place] [address] [place] Eosinophils (Bld) [#/Vol] 0.1 10*3/uL Normal 0.0-0.5 [facility] Comment on above: Performed By: #### L [id number] ####Prune Washer: MARQUITA BONILLA ([id number])[facility] ([facility])[address] [place] [address] [place] Eosinophils/100 WBC (Bld) 1.8 % Normal 0.0-6.0 [facility] Comment on above: Performed By: #### L [id number] ####Prune Washer: MARQUITA BONILLA ([id number])[facility])[address] [place] [address] Erythrocyte distribution width (RBC) [Ratio] 13.2 % Normal 11.5-15.0 [facility] Comment on above: Performed By: #### L [id number] ####Prune Washer: MARQUITA BONILLA ([id number])[address] Hematocrit (Bld) [Volume fraction] 37.9 % Normal 35.0-47.0 [facility] Comment on above: Performed By: #### L [id number] ####Prune Washer: MARQUITA BONILLA ([id number])[address] Hemoglobin (Bld) [Mass/Vol] 12.7 g/dL Normal 11.7-16.0 [facility] Comment on above: Performed By: #### L [id number] ####Prune Washer: MARQUITA BONILLA ([id number])[address] IMMATURE GRANS % 0.4 % Normal 0.0-2.0 [facility] Comment on above: Performed By: #### L [id number] ####Prune Washer: MARQUITA BONILLA ([id number])[address] IMMATURE GRANS ABSOLUTE 0.0 10*3/uL Normal <0.1 [facility] Comment on above: Performed By: #### L [id number] ####Prune Washer: MARQUITA BONILLA ([id number])[address] Lymphocytes (Bld) [#/Vol] 1.8 10*3/uL Normal 1.0-4.3 [facility] Comment on above: Performed By: #### L [id number] ####Prune Washer: MARQUITA BONILLA ([id number])[facility] ([facility])[address] [place] [address] Lymphocytes/100 WBC (Bld) 34.8 % Normal 15.0-45.0 [facility] Comment on above: Performed By: #### L [id number] ####Prune Washer: MARQUITA BONILLA ([phone])[facility])[address] [place] [address] MCH (RBC) [Entitic mass] 29.8 pg Normal 26.0-34.0 [facility] Comment on above: Performed By: #### L [id number] ####Prune Washer: MARQUITA BONILLA ([id number])[facility])[address] [place] [address] MCHC 33.5 % Normal 30.5-36.0 [facility] Comment on above: Performed By: #### L [id number] ####Prune Washer: MARQUITA BONILLA ([id number])[facility] ([facility])[address] [place] [address] MCV (RBC) [Entitic vol] 89.0 fL Normal 77.0-99.0 [facility] Comment on above: Performed By: #### L [id number] ####Prune Washer: MARQUITA BONILLA ([id number])[facility])[address] [place] [address] Monocytes (Bld) [#/Vol] 0.4 10*3/uL Normal 0.0-0.9 [facility] Comment on above: Performed By: #### L [id number] ####Prune Washer: MARQUITA BONILLA ([id number])[facility])[address] [place] [address] Monocytes/100 WBC (Bld) 8.5 % Normal 5.0-13.0 [facility] Comment on above: Performed By: #### L [id number] ####Prune Washer: MARQUITA BONILLA ([phone])[facility] [place] [address] NEUTROPHILS ABSOLUTE 2.7 10*3/uL Normal 1.8-7.5 [facility] Comment on above: Performed By: #### L [id number] ####Prune Washer: MARQUITA BONILLA ([id number])[facility] ([facility])[address] [place] [address] Neutrophils/100 WBC (Bld) 53.9 % Normal 38.0-82.0 [facility] Comment on above: Performed By: #### L [id number] ####Prune Washer: MARQUITA BONILLA ([id number])[facility] ([facility])[address] [place] [address] NRBC 0.0 /100 WBCs Normal 0.0-2.0 [facility] Comment on above: Performed By: #### L [id number] ####Prune Washer: MARQUITA BONILLA ([phone])[facility] ([facility])[address] [place] [address] Platelet mean volume (Bld) [Entitic vol] 11.7 fL Normal 9.0-12.7 [facility] Comment on above: Performed By: #### L [id number] ####Prune Washer: MARQUITA BONILLA ([id number])[facility] ([facility])[address] [place] [address] Platelets (Bld) [#/Vol] 216 10*3/uL Normal 140-440 [facility] Comment on above: Performed By: #### L [id number] ####Prune Washer: MARQUITA BONILLA ([id number])[facility] ([facility])[address] [place] [address] RBC (Bld) [#/Vol] 4.26 10*6/uL Normal 3.80-5.20 [facility] Comment on above: Performed By: #### L [id number] ####Prune Washer: MARQUITA BONILLA ([id number])[facility] ([facility])[address] [place] [address] [place] WBC (Bld) [#/Vol] 5.1 10*3/uL Normal 3.6-10.7 [facility] Comment on above: Performed By: #### L [id number] ####Prune Washer: MARQUITA BONILLA ([id number])[facility] ([facility])[address] [place] [address] COMPREHENSIVE METABOLIC PANE Krishna 03-01-2024 Albumin [Mass/Vol] 3.2 g/dL Low 3.5-5.0 [facility] Comment on above: Performed By: #### L [id number], [id number], [id number], LAB17 ####Prune Washer: MARQUITA BONILLA ([phone])[facility] ([facility])[address] [place] [address] ALP [Catalytic activity/Vol] 38 U/L Normal 38-126 [facility] Comment on above: Performed By: #### L [id number], [id number], [id number], LAB17 ####Prune Washer: MARQUITA BONILLA ([id number])[facility] ([facility])[address] [place] [address] ALT [Catalytic activity/Vol] 15 U/L Normal 0-34 [facility] Comment on above: Performed By: #### L [id number], [id number], [id number], LAB17 ####Prune Washer: MARQUITA BONILLA ([id number])[facility] ([facility])[address] [place] [address] Anion gap [Moles/Vol] 6 mmol/L Normal 3-13 [facility] Comment on above: Performed By: #### L [id number], [id number], [id number], LAB17 ####Prune Washer: MARQUITA BONILLA ([id number])[facility] ([facility])[address] [place] [address] AST [Catalytic activity/Vol] 25 U/L Normal 15-46 [facility] Comment on above: Performed By: #### L [id number], [id number], QVE140, LAB17 ####Prune Washer: MARQUITA BONILLA ([id number])[facility] ([facility])[address] [place] [address] Bilirubin [Mass/Vol] 1.0 mg/dL Normal 0.2-1.3 [facility] Comment on above: Performed By: #### L [id number], [id number], [id number], LAB17 ####Prune Washer: MARQUITA BONILLA ([id number])[facility])[address] [place] [address] Calcium [Mass/Vol] 8.1 mg/dL Low 8.4-10.4 [facility] Comment on above: Performed By: #### L [id number], [id number], SIO324, LAB17 ####Prune Washer: MARQUITA BONILLA ([id number])[facility] ([facility])[address] [place] [address] Chloride [Moles/Vol] 111 mmol/L High 98-107 [facility] Comment on above: Performed By: #### L [id number], UDR426, DGY354, LAB17 ####Prune Washer: MARQUITA BONILLA ([id number])[facility] ([facility])[address] [place] [address] CO2 [Moles/Vol] 18 mmol/L Low 22-30 [facility] Comment on above: Performed By: #### L [id number], QTB437, TPF361, LAB17 ####Prune Washer: MARQUITA BONILLA ([id number])[facility])[address] [place] [address] Creatinine [Mass/Vol] 0.66 mg/dL Normal 0.52-1.04 [facility] Comment on above: Performed By: #### L [id number], GYK938, FZP433, LAB17 ####Prune Washer: MARQUITA BONILLA ([id number])[facility])[address] [place] [address] GLOMERULAR FILTRATION RATE ML/MIN/1.73 SQ M.PREDICTED >90.0 Normal >60.0 [facility] Comment on above: Result Comment: Calc ulation based on the Chronic Kidney Disease Epidemiology Collaboration (CKD-EPI) equation refit without adjustment for race ORDER COMMENTS: Slightly Hemolyzed. Interpret K+, ALKP, AST with caution. Performed By: #### L AB67, [id number], PHB314, LAB17 ####Prune Washer: MARQUITA BONILLA ([phone])[facility])[address] [place] [address] Glucose [Mass/Vol] 54 mg/dL Low 70-100 [facility] Comment on above: Performed By: #### L AB67, NIR122, WNF741, LAB17 ####Prune Washer: MARQUITA BONILLA ([id number])[facility])[address] [place] [address] Potassium [Moles/Vol] 4.1 mmol/L Normal 3.5-5.1 [facility] Comment on above: Performed By: #### L AB67, [id number], UVZ415, LAB17 ####Prune Washer: MARQUITA BONILLA ([id number])[facility])[address] [place] [address] Protein [Mass/Vol] 5.4 g/dL Low 6.3-8.2 [facility] Comment on above: Performed By: #### L AB67, TYB524, KIG971, LAB17 ####Prune Washer: MARQUITA BONILLA ([id number])[facility])[address] [place] [address] Sodium [Moles/Vol] 135 mmol/L Normal 135-145 [facility] Comment on above: Performed By: #### L AB67, BPL363, YBG553, LAB17 ####Prune Washer: MARQUITA BONILLA ([id number])[facility])[address] [place] [address] [place] Urea nitrogen [Mass/Vol] 9 mg/dL Normal 7-17 [facility] Comment on above: Performed By: #### L AB67, ISG293, FEG366, LAB17 ####Prune Washer: MARQUITA BONILLA ([id number])[facility])[address] [place] [address] Cobalamin (Vitamin B12) [Mas s/Vol]on 03-01-2024 Interpretation and review of laboratory results Abnormal [facility] metabolic 1998 panelon 03-01-2024 Albumin [Mass/Vol] 3.2 g/dL Low 3.5 - 5.0 g/dL [facility] ALP [Catalytic activity/Vol] 38 U/L 38 - 126 U/L [facility] ALT [Catalytic activity/Vol] 15 U/L 0 - 34 U/L [facility] Anion gap [Moles/Vol] 6 mmol/L 3 - 13 mmol/L [facility] AST [Catalytic activity/Vol] 25 U/L 15 - 46 U/L [facility] Bilirubin [Mass/Vol] 1.0 mg/dL 0.2 - 1 .3 mg/dL [facility] Calcium [Mass/Vol] 8.1 mg/dL Low 8.4 - 10. 4 mg/dL [facility] Chloride [Moles/Vol] 111 mmol/L High 98 - 10 7 mmol/L [facility] CO2 [Moles/Vol] 18 mmol/L Low 22 - 30 mmol/L [facility] Creatinine [Mass/Vol] 0.66 mg/dL 0.52 - 1.04 mg/dL [facility] GFR/1.73 sq M.predicted (S/P/Bld) [Vol rate/Area] - PINF [facility] Comment on above: Calculation based on the Chronic Kidney Disease Epidemiology Collaboration (CKD-EPI) equation refit without adjustment for race Glucose [Mass/Vol] 54 mg/dL Low 70 - 100 mg/dL [facility] Interpretation and review of laboratory results Abnormal [facility] Potassium [Moles/Vol] 4.1 mmol/L 3.5 - 5.1 mmol/L [facility] Protein [Mass/Vol] 5.4 g/dL Low 6.3 - 8.2 g/dL [facility] Sodium [Moles/Vol] 135 mmol/L 135 - 145 mmol/L [facility] Urea nitrogen [Mass/Vol] 9 mg/dL 7 - 17 mg/dL [facility] Slightly Hemolyzed. Interpret K+, ALKP, AST with caution. [facility] ECG 12-LEADon 03-01-2024 ECG 12-LEAD IMPRESSION: Sinus rhythm Compared to ECG 02/28/2024 23:52:13 ST changes no longer present Prolonged QT interval no longer present Electronically Signed On 03-01-2024 07:41:42 EDT by Jeanette Geiger [facility] ECG 12-LEAD IMPRESSION: Sinus rhythm Electronically Signed On 03-01-2024 07:01:37 EDT by Jeanette Llamas [facility] - Chemistry and C hemistry - challengeon 03-01-2024 Cobalamin (Vitamin B12) [Mass/Vol] 214 pg/mL Low 239 - 931 pg/mL [facility] Glucose [Mass/Vol] 129 mg/dL High 70 - 100 mg/dL [facility] Glucose [Mass/Vol] 66 mg/dL Low 70 - 100 mg/dL [facility] Glucose [Mass/Vol] 59 mg/dL Low 70 - 100 mg/dL [facility] Magnesium [Mass/Vol] 1.9 mg/dL 1.6 - 2 .3 mg/dL [facility] MAGNESIUMon 03-01-2024 Magnesium [Mass/Vol] 1.9 mg/dL Normal 1.6-2.3 [facility] Comment on above: Result Comment: ANA MARIA Lopez COMMENTS: Slightly Hemolyzed. Interpret Magnesium with caution. Performed By: #### L AB67, [id number], [id number], LAB17 ####Prune Washer: MARQUITA BONILLA ([id number])[facility] ([facility])[address] [place] [address] Magnesium [Mass/Vol]on 03-01 Slightly Hemolyzed. Interpret Magnesium with caution. [facility] No Panel Informationon 03-01 Interpretation and review of laboratory results Abnormal [facility] Performed by: [facility], [address] [place] [address] CLIA ID: [id number] [facility] Sinus rhythm Compared to ECG 02/28/2024 23:52:13 ST changes no longer present Prolonged QT interval no longer present Electronically Signed On 03-01-2024 07:41:42 EDT by Jeanette Llamas Jeanette Daniel MD - 03/01/2024 IMPRESSION: Sinus rhythm Compared to ECG 02/28/2024 23:52:13 ST changes no longer present Prolonged QT interval no longer present Electronically Signed On 03-01-2024 07:41:42 EDT by Jeanette Llamas [facility] Interpretation and review of laboratory results Abnormal [facility] Performed by: [facility], [address] [facility] [address] CLIA ID: [id number] [facility] Interpretation and review of laboratory results Abnormal [facility] Performed by: [facility], [address] [facility] [address] CLIA ID: [id number] [facility] P [place] 39 degrees [facility] [place] Interval 112 ms [facility] QRS [place] 55 degrees [facility] QRSD [facility] QT Interval 411 ms [facility] QTC Interval 420 ms [facility] T Wave [place] 16 degrees [facility] Sinus rhythm Electronically Signed On 03-01-2024 07:01:37 EDT by Jeanette Llamas CV Jeanette Daniel MD - 03/01/2024 IMPRESSION: Sinus rhythm Electronically Signed On 03-01-2024 07:01:37 EDT by Jeanette Llamas [facility] Interpretation and review of laboratory results Normal [facility] No Panel InformationOrdered By: Jeanette Llamas on 03-01-2024 P [place] 26 degrees [facility] Work Phone: [place] Interval 140 ms [facility] Work Phone: QRS [place] 59 degrees [facility] Work Phone: QRSD Interval 100 ms [facility] Work Phone: QT Interval 414 ms [facility] Work Phone: QTC Interval 453 ms [facility] Work Phone: T Wave [place] 26 degrees [facility] Work Phone: [facility] Work Phone: PHOSPHORUSon 03-01-2024 Phosphate [Mass/Vol] 3.6 mg/dL Normal 2.5-4.5 [facility] Comment on above: Result Comment: ANA MARIA Lopez COMMENTS: Slightly Hemolyzed. Interpret Phosphorus with caution. Performed By: #### L AB67, [id number], [id number], LAB17 ####Prune Washer: MARQUITA BONILLA ([id number])[facility] ([facility])[address] [place] [address] Phosphate [Moles/Vol]on 02-09 Phosphate [Mass/Vol] 3.6 mg/dL 2.5 - 4 .5 mg/dL [facility] Slightly Hemolyzed. Interpret Phosphorus with caution. [facility] Progress Noteon 03-01-2024 Progress Note ---- -------- Attestation signed by Tami Darnell MD at 03/01/2024 6:00 PM I, Dr. Tami Darnell, saw and evaluated the patient 03/01/24. I personally obtained the betancur and critical portions of the history and physical exam. I reviewed the chart and discussed the patient with the resident. I agree with the resident's medical decision making. In summary, 28-year-old woman with a history of dysautonomia and POTS, chronic chest pain and dyspnea, asthma, multiple food allergies and possibly chronic malnutrition with low albumin and vitamin deficiencies, admitted with worsening of her chronic chest pain. She has a chronically abnormal EKG, with the ST and T wave abnormalities that are worse when tachycardic. Ruled out for acute IN. No structural normalities or wall motion abnormalities noted on echocardiogram. No concerning arrhythmias on telemetry. Encouraged conservative management of her POTS with increased oral intake particularly healthy diet, increase sodium intake, staying well-hydrated, using compression garments, exercise as tolerated starting with recumbent exercises. With a history of abnormal EKG and ongoing chest discomfort, will obtain outpatient treadmill stress test. High-dose PPI also started as some of her symptoms are simply postprandial. Will discharge home today. -------- [facility] CCU PROGRESS NOTE Patient Name: Amie Braxton : 1995 Subjective: Interval History: Patient is resting in bed on evaluation. Patient notes that she has not had any recent chest pain, but did not dizziness and mild headache. Echo and abdominal US both WNL. Patients orthostatics confirmed POTS diagnosis. Patients B12 noted to be low at 214. Patient notes no SOB, N/V, or abdominal pain at this time. Review of Systems: Constitutional: Negative for chills, fatigue and fever. HENT: Negative for rhinorrhea, sore throat and trouble swallowing. Eyes: Negative for pain and visual disturbance. Respiratory: Positive for transient chest tightness, not present at time of evaluation. Negative for cough and shortness of breath. Cardiovascular: Negative for chest pain, palpitations and leg swelling. Gastrointestinal: Negative for abdominal pain, constipation, diarrhea, nausea and vomiting. Genitourinary: Positive for menstrual problem. Musculoskeletal: Negative for back pain, neck pain and neck stiffness. Skin: Negative for rash. Neurological: Positive for dizziness and headaches. Negative for weakness and light-headedness. Psychiatric/Behavioral: The patient is nervous/anxious. Inpatient Medications: Scheduled Meds:cyanocobalamin, 1,000 mcg, Oral, Daily pantoprazole, 40 mg, Oral, Nightly Or pantoprazole (ProtoNix) 40 mg in sodium chloride (PF) 0.9 % 10 mL injection, 40 mg, IntraVENous, Nightly Continuous Infusions: PRN Meds used in the last 24hr: Zofran Objective: Physical Examination: BP 99/61 Pulse 74 Temp 36.6 ?C (97.8 ?F) (Temporal) Resp 18 Ht 1.524 m (5') Wt 47.6 kg (105 lb) SpO2 97% BMI 20.51 kg/m? Intake/Output Summary (Last 24 hours) at 03/01/2024 1106 Last data filed at 03/01/2024 0429 Gross per 24 hour Intake 2606 ml Output 1150 ml Net 1456 ml Physical Exam Vitals and nursing note reviewed. Constitutional: General: She is not in acute distress. Appearance: Normal appearance. She is not ill-appearing. HENT: Mouth/Throat: Mouth: Mucous membranes are moist. Pharynx: Oropharynx is clear. No oropharyngeal exudate. Eyes: Extraocular Movements: Extraocular movements intact. Neck: Vascular: No carotid bruit. Cardiovascular: Rate and Rhythm: Regular rhythm. Pulses: Normal pulses. Heart sounds: Normal heart sounds. No murmur heard. Pulmonary: Effort: Pulmonary effort is normal. No respiratory distress. Breath sounds: Normal breath sounds. Abdominal: General: Bowel sounds are normal. There is no distension. Palpations: Abdomen is soft. Tenderness: There is no abdominal tenderness. There is no guarding. Musculoskeletal: Right lower leg: No edema. Left lower leg: No edema. Skin: General: Skin is warm. Capillary Refill: Capillary refill takes less than 2 seconds. Neurological: Mental Status: She is alert and oriented to person, place, and time. Pertinent Labs: BMP: Lab Results Component Value Date NA 135 03/01/2024 K 4.1 03/01/2024 CL 111 (H) 03/01/2024 CO2 18 (L) 03/01/2024 BUN 9 03/01/2024 CREATININE 0.66 03/01/2024 GLUCOSE 54 (L) 03/01/2024 CALCIUM 8.1 (L) 03/01/2024 MG 1.9 03/01/2024 PHOS 3.6 03/01/2024 CBC: Lab Results Component Value Date WBC 5.1 03/01/2024 HGB 12.7 03/01/2024 HCT 37.9 03/01/2024 MCV 89.0 03/01/2024 PLT 216 03/01/2024 Cardiac profile: CK Date Value Ref Range Status 02/29/2024 48 30 - 170 U/L (more content not included)... [facility] Progress Note Patient is being discharged from [facility], she needs an exercise stress test scheduled with follow-up with Dr. Darnell following exercise stress test. Please arrange. [facility] Progress Note Nutrition rescreen completed. Chart reviewed. Patient to be monitored and followed by the diet it field technician. KAUR Cunningham [facility] VITAMIN B12on 03-01-2024 Cobalamin (Vitamin B12) [Mass/Vol] 214 pg/mL Low 239-931 [facility] Comment on above: Performed By: #### L AB67, [id number], [id number], LAB17 ####Prune Washer: MARQUITA BONILLA ([id number])[facility] ([facility])[address] [place] [address] Vital signsOrdered By: Alecia Llamas on 03-01-2024 Heart rate 72 /min bpm [facility] Work Phone: Vital signson 03-01-2024 Heart rate 63 /min bpm [facility] C-REACTIVE PROTEINon 024 CRP [Mass/Vol] mg/L Normal <10.0 [facility] Comment on above: Performed By: #### L [id number] #### Prune Washer: MARQUITA BONILLA ([id number]) [facility] [address] [place] [address] CBC W Auto Differential pane l (Bld)on 02-29-2024 Basophils (Bld) [#/Vol] 0.0 10*3/uL 0.0 - 0.2 10*3/uL [facility] Basophils/100 WBC (Bld) 0.3 % 0.0 - 2.0 % [facility] Eosinophils (Bld) [#/Vol] 0.0 10*3/uL 0.0 - 0.5 10*3/uL [facility] Eosinophils/100 WBC (Bld) 0.1 % 0.0 - 6.0 % [facility] Erythrocyte distribution width (RBC) [Ratio] 13.0 % 11.5 - 15.0 % [facility] Hematocrit (Bld) [Volume fraction] 41.9 % 35.0 - 47.0 % [facility] Hemoglobin (Bld) [Mass/Vol] 14.2 g/dL 11.7 - 16.0 g/dL [facility] Immature granulocytes (Bld) [#/Vol] 0.0 10*3/uL NINF - 0.1 10*3/uL [facility] Immature granulocytes/100 WBC (Bld) 0.3 % 0.0 - 2.0 % [facility] Interpretation and review of laboratory results Normal [facility] Lymphocytes (Bld) [#/Vol] 1.7 10*3/uL 1.0 - 4.3 10*3/uL [facility] Lymphocytes/100 WBC (Bld) 19.4 % 15.0 - 45.0 % [facility] MCH (RBC) [Entitic mass] 29.4 pg 26.0 - 34.0 pg [facility] MCHC (RBC) [Mass/Vol] 33.9 % 30.5 - 36.0 % [facility] MCV (RBC) [Entitic vol] 86.7 fL 77.0 - 99.0 fL [facility] Monocytes (Bld) [#/Vol] 0.5 10*3/uL 0.0 - 0.9 10*3/uL [facility] Monocytes/100 WBC (Bld) 5.3 % 5.0 - 13.0 % [facility] Neutrophils (Bld) [#/Vol] 6.5 10*3/uL 1.8 - 7.5 10*3/uL [facility] Neutrophils/100 WBC (Bld) 74.6 % 38.0 - 82.0 % [facility] Nucleated RBC/100 WBC (Bld) [Ratio] 0.0 % [facility] Platelet mean volume (Bld) [Entitic vol] 10.9 fL 9.0 - 12.7 fL [facility] Platelets (Bld) [#/Vol] 307 10*3/uL 140 - 440 10*3/uL [facility] RBC (Bld) [#/Vol] 4.83 10*6/uL 3.80 - 5.2 0 10*6/uL [facility] WBC (Bld) [#/Vol] 8.7 10*3/uL 3.6 - 10.7 10*3/uL [facility] CBC WITH AUTO DIFFERENTIALon 02-29-2024 Basophils (Bld) [#/Vol] 0.0 10*3/uL Normal 0.0-0.2 [facility] Comment on above: Performed By: #### L [id number] #### Prune Washer: MARQUITA BONILLA ([id number]) [facility]) [address] [place] [address] Basophils/100 WBC (Bld) 0.3 % Normal 0.0-2.0 [facility] Comment on above: Performed By: #### L [id number] #### Prune Washer: MARQUITA BONILLA ([id number]) [facility] ([facility]) [address] [place] [address] Eosinophils (Bld) [#/Vol] 0.0 10*3/uL Normal 0.0-0.5 [facility] Comment on above: Performed By: #### L [id number] #### Prune Washer: MARQUITA BONILLA ([id number]) [facility]) [address] [place] [address] Eosinophils/100 WBC (Bld) 0.1 % Normal 0.0-6.0 [facility] Comment on above: Performed By: #### L [id number] #### Prune Washer: MARQUITA BONILLA ([phone]) [facility]) [address] [place] [address] Erythrocyte distribution width (RBC) [Ratio] 13.0 % Normal 11.5-15.0 [facility] Comment on above: Performed By: #### L [id number] #### Prune Washer: MARQUITA BONILLA ([id number]) [facility]) [address] [place] [address] Hematocrit (Bld) [Volume fraction] 41.9 % Normal 35.0-47.0 [facility] Comment on above: Performed By: #### L [id number] #### Prune Washer: MARQUITA BONILLA ([id number]) [facility]) [address] [place] [address] Hemoglobin (Bld) [Mass/Vol] 14.2 g/dL Normal 11.7-16.0 [facility] Comment on above: Performed By: #### L [id number] #### Prune Washer: MARQUITA BONILLA ([id number]) [facility]) [address] [place] [address] IMMATURE GRANS % 0.3 % Normal 0.0-2.0 [facility] Comment on above: Performed By: #### L [id number] #### Prune Washer: MARQUITA BONILLA ([id number]) [facility]) [address] [place] [address] IMMATURE GRANS ABSOLUTE 0.0 10*3/uL Normal <0.1 [facility] Comment on above: Performed By: #### L [id number] #### Prune Washer: MARQUITA BONILLA ([id number]) [facility]) [address] [place] [address] Lymphocytes (Bld) [#/Vol] 1.7 10*3/uL Normal 1.0-4.3 [facility] Comment on above: Performed By: #### L [id number] #### Prune Washer: MARQUITA BONILLA ([id number]) [facility]) [address] [place] [address] Lymphocytes/100 WBC (Bld) 19.4 % Normal 15.0-45.0 [facility] Comment on above: Performed By: #### L [id number] #### Prune Washer: MARQUITA BONILLA ([id number]) [facility]) [address] [place] [address] MCH (RBC) [Entitic mass] 29.4 pg Normal 26.0-34.0 [facility] Comment on above: Performed By: #### L [id number] #### Prune Washer: MARQUITA BONILLA ([id number]) [facility]) [address] [place] [address] MCHC 33.9 % Normal 30.5-36.0 [facility] Comment on above: Performed By: #### L [id number] #### Prune Washer: MARQUITA BONILLA ([id number]) [facility]) [address] [place] [address] MCV (RBC) [Entitic vol] 86.7 fL Normal 77.0-99.0 [facility] Comment on above: Performed By: #### L [id number] #### Prune Washer: MARQUITA BONILLA ([id number]) [facility]) [address] [place] [address] Monocytes (Bld) [#/Vol] 0.5 10*3/uL Normal 0.0-0.9 [facility] Comment on above: Performed By: #### L [id number] #### Prune Washer: MARQUITA BONILLA ([id number]) [facility] ([facility]) [address] [place] [address] Monocytes/100 WBC (Bld) 5.3 % Normal 5.0-13.0 [facility] Comment on above: Performed By: #### L [id number] #### Prune Washer: MARQUITA BONILLA ([id number]) [facility] ([facility]) [address] [place] [address] NEUTROPHILS ABSOLUTE 6.5 10*3/uL Normal 1.8-7.5 [facility] Comment on above: Performed By: #### L [id number] #### Prune Washer: MARQUITA BONILLA ([id number]) [facility] ([facility]) [address] [place] [address] Neutrophils/100 WBC (Bld) 74.6 % Normal 38.0-82.0 [facility] Comment on above: Performed By: #### L [id number] #### Prune Washer: MARQUITA BONILLA ([id number]) [facility] ([facility]) [address] [place] [address] NRBC 0.0 /100 WBCs Normal 0.0-2.0 [facility] Comment on above: Performed By: #### L [id number] #### Prune Washer: MARQUITA BONILLA ([id number]) [facility] ([facility]) [address] [place] [address] Platelet mean volume (Bld) [Entitic vol] 10.9 fL Normal 9.0-12.7 [facility] Comment on above: Performed By: #### L [id number] #### Prune Washer: MARQUITA BONILLA ([id number]) [facility] ([facility]) [address] [place] [address] [place] Platelets (Bld) [#/Vol] 307 10*3/uL Normal 140-440 [facility] Comment on above: Performed By: #### L [id number] #### Prune Washer: MARQUITA BONILLA ([id number]) [facility] ([facility]) [address] [place] [address] [place] RBC (Bld) [#/Vol] 4.83 10*6/uL Normal 3.80-5.20 [facility] Comment on above: Performed By: #### L [id number] #### Prune Washer: MARQUITA BONILLA ([id number]) [facility] ([facility]) [address] [place] [address] WBC (Bld) [#/Vol] 8.7 10*3/uL Normal 3.6-10.7 [facility] Comment on above: Performed By: #### L [id number] #### Prune Washer: MARQUITA BONILLA ([id number]) [facility] ([facility]) [address] [place] [address] CK TOTAL AND CKMBon 02-29-20 CK [Catalytic activity/Vol] 48 U/L Normal 30-170 [facility] Comment on above: Performed By: #### L [id number] #### Prune Washer: MARQUITA BONILLA ([id number]) [facility] ([facility]) [address] [place] [address] CK.MB [Mass/Vol] 0.4 ng/mL Normal 0.0-4.4 [facility] Comment on above: Performed By: #### L [id number] #### Prune Washer: MARQUITA BONILLA ([id number]) [facility] ([facility]) [address] [place] [address] RELATIVE INDEX 0.8 Normal 0.0-3.0 [facility] Comment on above: Performed By: #### L [id number] #### Prune Washer: MARQUITA BONILLA ([id number]) [facility] ([facility]) [address] [place] [address] CK.total/Creatine kinase.MB [Catalytic ratio]on 02-29-2024 CK [Catalytic activity/Vol] 48 U/L 30 - 170 U/L [facility] CK.MB [Mass/Vol] 0.4 ng/mL 0.0 - 4.4 ng/mL [facility] RELATIVE INDEX 0.8 0.0 - 3.0 [facility] COMPREHENSIVE METABOLIC PANE Krishna 02-29-2024 Albumin [Mass/Vol] 4.4 g/dL Normal 3.5-5.0 [facility] Comment on above: Performed By: #### L [id number] #### Prune Washer: MARQUITA BONILLA ([id number]) [facility] ([facility]) [address] [place] [address] ALP [Catalytic activity/Vol] 59 U/L Normal 38-126 [facility] Comment on above: Performed By: #### L [id number] #### Prune Washer: MARQUITA BONILLA ([id number]) [facility] ([facility]) [address] [place] [address] ALT [Catalytic activity/Vol] 22 U/L Normal 0-34 [facility] Comment on above: Performed By: #### L [id number] #### Prune Washer: MARQUITA BONILLA ([id number]) [facility] ([facility]) [address] [place] [address] Anion gap [Moles/Vol] 10 mmol/L Normal 3-13 [facility] Comment on above: Performed By: #### L [id number] #### Prune Washer: MARQUITA BONILLA ([id number]) [facility] ([facility]) [address] [place] [address] AST [Catalytic activity/Vol] 22 U/L Normal 15-46 [facility] Comment on above: Performed By: #### L [id number] #### Prune Washer: MARQUITA BONILLA ([id number]) [facility] ([facility]) [address] [place] [address] Bilirubin [Mass/Vol] 0.9 mg/dL Normal 0.2-1.3 [facility] Comment on above: Performed By: #### L [id number] #### Prune Washer: MARQUITA BONILLA ([id number]) [facility]) [address] [place] [address] Calcium [Mass/Vol] 9.0 mg/dL Normal 8.4-10.4 [facility] Comment on above: Performed By: #### L [id number] #### Prune Washer: MARQUITA BONILLA ([id number]) [facility] ([facility]) [address] [place] [address] Chloride [Moles/Vol] 107 mmol/L Normal 98-107 [facility] Comment on above: Performed By: #### L [id number] #### Prune Washer: MARQUITA BONILLA ([id number]) [facility] ([facility]) [address] [place] [address] [place] CO2 [Moles/Vol] 19 mmol/L Low 22-30 [facility] Comment on above: Performed By: #### L [id number] #### Prune Washer: MARQUITA BONILLA ([id number]) [facility] ([facility]) [address] [place] [address] Creatinine [Mass/Vol] 0.64 mg/dL Normal 0.52-1.04 [facility] Comment on above: Performed By: #### L [id number] #### Prune Washer: MARQUITA BONILLA ([id number]) [facility] [address] [place] [address] GLOMERULAR FILTRATION RATE ML/MIN/1.73 SQ M.PREDICTED >90.0 Normal >60.0 [facility] Comment on above: Result Comment: Calc ulation based on the Chronic Kidney Disease Epidemiology Collaboration (CKD-EPI) equation refit without adjustment for race Performed By: #### L [id number] #### Prune Washer: MARQUITA BONILLA ([id number]) [facility] [address] [place] [address] [place] Glucose [Mass/Vol] 80 mg/dL Normal 70-100 [facility] Comment on above: Performed By: #### L [id number] #### Prune Washer: MARQUITA BONILLA ([id number]) [facility] [address] [place] [address] Potassium [Moles/Vol] 3.6 mmol/L Normal 3.5-5.1 [facility] Comment on above: Performed By: #### L [id number] #### Prune Washer: MARQUITA BONILLA ([id number]) [facility] ([facility]) [address] [place] [address] Protein [Mass/Vol] 6.7 g/dL Normal 6.3-8.2 [facility] Comment on above: Performed By: #### L [id number] #### Prune Washer: MARQUITA BONILLA ([id number]) [facility] [address] [place] [address] Sodium [Moles/Vol] 136 mmol/L Normal 135-145 [facility] Comment on above: Performed By: #### L [id number] #### Prune Washer: MARQUITA BONILLA ([id number]) [facility] [address] [place] [address] Urea nitrogen [Mass/Vol] 10 mg/dL Normal 7-17 [facility] Comment on above: Performed By: #### L [id number] #### Prune Washer: MARQUITA BONILLA ([id number]) [facility] [address] [place] [address] CRP [Mass/Vol]on 02-29-2024 Interpretation and review of laboratory results Normal [facility] Comprehensive metabolic 1998 panelon 02-29-2024 Albumin [Mass/Vol] 4.4 g/dL 3.5 - 5.0 g/dL [facility] ALP [Catalytic activity/Vol] 59 U/L 38 - 126 U/L [facility] ALT [Catalytic activity/Vol] 22 U/L 0 - 34 U/L [facility] Anion gap [Moles/Vol] 10 mmol/L 3 - 13 mmol/L [facility] AST [Catalytic activity/Vol] 22 U/L 15 - 46 U/L [facility] Bilirubin [Mass/Vol] 0.9 mg/dL 0.2 - 1 .3 mg/dL [facility] Calcium [Mass/Vol] 9.0 mg/dL 8.4 - 10. 4 mg/dL [facility] Chloride [Moles/Vol] 107 mmol/L 98 - 10 7 mmol/L [facility] CO2 [Moles/Vol] 19 mmol/L Low 22 - 30 mmol/L [facility] Creatinine [Mass/Vol] 0.64 mg/dL 0.52 - 1.04 mg/dL [facility] GFR/1.73 sq M.predicted (S/P/Bld) [Vol rate/Area] - PINF [facility] Comment on above: Calculation based on the Chronic Kidney Disease Epidemiology Collaboration (CKD-EPI) equation refit without adjustment for race Glucose [Mass/Vol] 80 mg/dL 70 - 100 mg/dL [facility] Interpretation and review of laboratory results Abnormal [facility] Potassium [Moles/Vol] 3.6 mmol/L 3.5 - 5.1 mmol/L [facility] Protein [Mass/Vol] 6.7 g/dL 6.3 - 8.2 g/dL [facility] Sodium [Moles/Vol] 136 mmol/L 135 - 145 mmol/L [facility] Urea nitrogen [Mass/Vol] 10 mg/dL 7 - 17 mg/dL [facility] ECG 12-LEADon 02-29-2024 ECG 12-LEAD IMPRESSION: Sinus tachycardia Probable left atrial enlargement Repol abnrm suggests ischemia, diffuse leads Prolonged QT interval Electronically Signed On 02-29-2024 10:05:21 EDT by Beatris De Jesus Normal [facility] ESR (Bld) [Velocity]Ordered By: Tae Padilla on 02-29-2024 Interpretation and review of laboratory results Normal [facility] HEMOGLOBIN A1Con 02-29-2024 Glucose [Mass/Vol] 88 mg/dL Normal [facility] Comment on above: Performed By: #### L [id number] ####Prune Washer: MARQUITA BONILLA ([id number])[facility] ([facility])[address] [place] [address] HbA1c (Bld) [Mass fraction] 4.7 % Normal <5.7 [facility] Comment on above: Result Comment: Norm al less than 5.7% Prediabetes 5.7% to 6.4% Diabetes 6.5% or higher --HgbA1C levels may not be accurate in patients who have renal disease, received recent blood transfusions, are anemic, or who have dyshemoglobinemia. Performed By: #### L [id number] ####Prune Washer: MARQUITA BONILLA ([phone])[facility] ([facility])[address] [place] [address] IDNon 02-29-2024 IDN The patient is Moderately Stable - Low risk of patient condition declining or worsening Normal [facility] Laboratory - Chemistry and C hemistry - challengeon 02-29-2024 Lipase [Catalytic activity/Vol] 62 U/L 23 - 300 U/L [facility] Procalcitonin [Mass/Vol] ng/mL 0.00 - 0.09 ng/mL [facility] Average glucose Estimated from glycated hemoglobin (Bld) [Mass/Vol] 88 mg/dL [facility] TSH Qn 2.398 m[IU]/L [facility] h Prolactin [Mass/Vol] 12.4 ng/mL 3.0 - 3 5.0 ng/mL [facility] Troponin I.cardiac [Mass/Vol] ng/mL NINF - 0.034 ng/mL [facility] CRP [Mass/Vol] mg/L [facility] - 10.0 mg/L [facility] Laboratory - Drug toxicology Ordered By: Arnel Hernandez on 02-29-2024 Amphetamines Ql (U) Negative Negative [facility] Barbiturates screen method Nom (U) Negative Negative [facility] Benzodiazepines screen method Nom (U) Negative Negative [facility] Cocaine Ql (U) Negative Negative [facility] th Ethanol [Mass/Vol] Negative Negative [facility] Methadone Ql (U) Negative Negative [facility] alth Opiates Screen Ql (U) Negative Negative [facility] Laboratory - Hematology and Cell countson 02-29-2024 HbA1c (Bld) [Mass fraction] 4.7 % [facility] - 5.7 % [facility] Comment on above: Normal less than 5.7 % Prediabetes 5.7% to 6.4% Diabetes 6.5% or higher --HgbA1C levels may not be accurate in patients who have renal disease, received recent blood transfusions, are anemic, or who have dyshemoglobinemia. Laboratory - Hematology and Cell countsOrdered By: Tae Padilla on 02-29-2024 ESR (Bld) [Velocity] [facility] Lipase [Catalytic activity/V ol]on 02-29-2024 Interpretation and review of laboratory results Normal [facility] MEDICATION ASSISTED TREATMEN T PANELon 02-29-2024 Amphetamines Ql (U) Negative Normal Negative [facility] Comment on above: Performed By: #### L [id number] #### Prune Washer: MARQUITA BONILLA ([id number]) [facility] ([facility]) [address] [place] [address] BARBITURATES Negative Normal Negative [facility] Comment on above: Performed By: #### L [id number] #### Prune Washer: MARQUITA BONILLA ([id number]) [facility] ([facility]) [address] [place] [address] Benzodiazepines Ql (U) Negative Normal Negative [facility] Comment on above: Performed By: #### L [id number] #### Prune Washer: MARQUITA BONILLA ([id number]) [facility] [address] [place] [address] BUPRENORPHINE SCREEN Negative Normal Negative [facility] Comment on above: Performed By: #### L [id number] #### Prune Washer: MARQUITA BONILLA ([id number]) [facility] [address] [place] [address] Cocaine Ql (U) Negative Normal Negative [facility] Comment on above: Performed By: #### L [id number] #### Prune Washer: MARQUITA BONILLA ([id number]) [facility] [address] [place] [address] ETHANOL-ETOHO Negative Normal Negative [facility] Comment on above: Result Comment: ORDE R COMMENTS: The expected value for the drugs listed above is Negative. The following drugs or drug groups have been screened for by Immunoassay at the following thresholds: Amphetamine class(1000ng/mL) Barbituates(200ng/mL) Benzodiazepines(200ng/mL) Cocaine(300ng/mL) Ethanol (50 ng/mL) Methadone(300ng/mL) Opiates(300ng/mL) Oxycodone(100ng/mL) PCP(25ng/mL) Buprenorphine(5ng/mL) THC(50ng/mL) Fentanyl(1ng/mL) Positive results are NOT confirmed by a more specific alternative method unless requested. If confirmation is needed, request confirmation under separate order. NOTE: These results are for medical treatment only. Analysis performed using non-forensic procedures. Performed By: #### L [id number] #### Prune Washer: MARQUITA BONILLA ([id number]) [facility] ([facility]) [address] [place] [address] FENTANYL Negative Normal Negative [facility] Comment on above: Performed By: #### L [id number] #### Prune Washer: MARQUITA BONILLA ([id number]) [facility] ([facility]) [address] [place] [address] Methadone Ql (U) Negative Normal Negative [facility] Comment on above: Performed By: #### L [id number] #### Prune Washer: MARQUITA BONILLA ([id number]) [facility] [address] [place] [address] Opiates Ql (U) Negative Normal [facility] Comment on above: Performed By: #### L [id number] #### Prune Washer: MARQUITA BNOILLA ([id number]) [facility] [address] [place] [address] OXYCODONE/OXYMORPHONE Negative Normal Negative [facility] Comment on above: Performed By: #### L [id number] #### Prune Washer: MARQUITA BONILLA ([id number]) [facility] ([facility]) [address] [place] [address] PCP Negative Normal Negative [facility] Comment on above: Performed By: #### L [id number] #### Prune Washer: MARQUITA BONILLA ([id number]) [facility] ([facility]) [address] [place] [address] THC-MTTHC Negative Normal Negative [facility] Comment on above: Performed By: #### L [id number] #### Prune Washer: MARQUITA BONILLA ([id number]) [facility] ([facility]) [address] [place] [address] No Panel InformationOrdered By: Beatris De Jesus on 02-29-2024 P [place] 73 degrees [facility] Work Phone: GA Interval 121 ms [facility] Work Phone: QRS [place] 52 degrees [facility] Work Phone: QRSD Interval 89 ms [facility] Work Phone: QT Interval 423 ms [facility] [employer] Work Phone: QTC Interval 555 ms [facility] Work Phone: T Wave [place] 263 degrees [facility] [employer] Work Phone: [facility] [employer] Work Phone: No Panel Informationon 02-28 Sinus tachycardia Probable left atrial enlargement Repol abnrm suggests ischemia, diffuse leads Prolonged QT interval Electronically Signed On 02-29-2024 10:05:21 EDT by Beatris De Jesus CV Beatris Hines MD - 02/29/2024 IMPRESSION: Sinus tachycardia Probable left atrial enlargement Repol abnrm suggests ischemia, diffuse leads Prolonged QT interval Electronically Signed On 02-29-2024 10:05:21 EDT by Beatris De Jesus [facility] Interpretation and review of laboratory results Normal [facility] Values below 35 ng/m L may be of doubtful significance. Recommend send-out testing to rule out macroprolactin to confirm the result. [facility] Interpretation and review of laboratory results Normal [facility] No Panel InformationOrdered By: Arnel Hernandez on 02-29-2024 BUPRENORPHINE SCREEN Negative Negative [facility] FENTANYL Negative Negative [facility] OXYCODONE/OXYMORPHONE Negative Negative [facility] PCP Negative Negative [facility] THC Negative Negative [facility] The expected value f or the drugs listed above is Negative. The following drugs or drug groups have been screened for by Immunoassay at the following thresholds: Amphetamine class(1000ng/mL) Barbituates(200ng/mL) Benzodiazepines(200ng/mL ) Cocaine(300ng/mL) Ethanol (50 ng/mL) Methadone(300ng/mL) Opiates(300ng/mL) Oxycodone(100ng/mL) PCP(25ng/mL) Buprenorphine(5ng/mL) THC(50ng/mL) Fentanyl(1ng/mL) Positive results are NOT confirmed by a more specific alternative method unless requested. If confirmation is needed, request confirmation under separate order. NOTE: These results are for medical treatment only. Analysis performed using non-forensic procedures. [facility] [employer] PROCALCITONIN TESTon 024 PROCALCITONIN <0.02 Normal 0.00-0.09 [facility] [employer]) [facility] Comment on above: Result Comment: ANA MARIA Lopez COMMENTS: PCT <0.50 = Low risk of severe sepsis and/or septic shock. PCT >2.00 = High risk of severe sepsis and/or septic shock. Performed By: #### L [id number] #### Prune Washer: MARQUITA BONILLA ([id number]) [facility] ([facility]) [address] [place] [address] PROLACTINon 02-29-2024 PROLACTIN 12.4 ng/mL Normal 3.0-35.0 [facility] [employer] [facility] Comment on above: Result Comment: ANA MARIA Lopez COMMENTS: Values below 35 ng/mL may be of doubtful significance. Recommend send-out testing to rule out macroprolactin to confirm the result. Performed By: #### L [id number] #### Prune Washer: MARQUITA BONILLA ([id number]) [facility] ([facility]) [address] [place] [address] Procalcitonin [Mass/Vol]on 0 02-29-2024 Interpretation and review of laboratory results Normal [facility] PCT <0.50 = Low risk of severe sepsis and/or septic shock. PCT >2.00 = High risk of severe sepsis and/or septic shock. [facility] Progress Noteon 02-29-2024 Progress Note ---- -------- Attestation signed by Tami Darnell MD at 02/29/2024 9:47 PM I, Dr. Tami Darnell, saw and evaluated the patient 02/29/24. I personally obtained the betancur and critical portions of the history and physical exam. I reviewed the chart and discussed the patient with the resident. I agree with the resident's medical decision making. Structurally normal heart on echo Reviewed multiple ECGs sine 2022, that have shows nonspecific repolarization abnormalities Orthostatic tachycardia documented again. Aggressive hydration, maintaining of high sodium intake, use of compression garments (pantyhose, abdominal binders), slowly increasing exercise capacity starting with recumbent or sitting exercise, all to improve her orthostatic symptoms. Will plan on discharging tomorrow and outpatient exercise stress test if no worsening of symptoms overnight -------- [facility] PROGRESS NOTE Patient Name: Amie Braxton : 1995 Subjective: Interval History: Patient is resting in bed comfortably. Noted no chest pain at time of visit, but notes chest pain and headache to be transient. Patient notes that pain and lightheadedness are worse when she sits up. Troponins, CK/CK-MB, and D-dimer negative. ESR, CRP. Mg, Phos, lipid panel, A1c, lipase, prolactin and TSH all WNL. Bedside echo revealed no abnormalities. Formal echo, US abdomen, pro calcitonin, respiratory panel, and pneumonia pcr pending. Review of Systems: Constitutional: Negative for chills, fatigue and fever. HENT: Negative for rhinorrhea, sore throat and trouble swallowing. Eyes: Negative for pain and visual disturbance. Respiratory: Positive for transient chest tightness. Negative for cough and shortness of breath. Cardiovascular: Negative for chest pain, palpitations and leg swelling. Gastrointestinal: Negative for abdominal pain, constipation, diarrhea, nausea and vomiting. Genitourinary: Positive for menstrual problem. Musculoskeletal: Negative for back pain, neck pain and neck stiffness. Skin: Negative for rash. Neurological: Positive for dizziness and headaches. Negative for weakness and light-headedness. Psychiatric/Behavioral: The patient is nervous/anxious. Inpatient Medications: Scheduled Meds:pantoprazole, 40 mg, Oral, Nightly Or pantoprazole (ProtoNix) 40 mg in sodium chloride (PF) 0.9 % 10 mL injection, 40 mg, IntraVENous, Nightly Continuous Infusions: PRN Meds used in the last 24hr: Objective: Physical Examination: BP 102/70 (BP Location: Right arm, Patient Position: Standing) Pulse 93 Temp 36.7 ?C (98 ?F) (Temporal) Resp 16 SpO2 98% Intake/Output Summary (Last 24 hours) at 02/29/2024 1143 Last data filed at 02/29/2024 0100 Gross per 24 hour Intake 1000 ml Output 1 ml Net 999 ml Physical Exam Vitals and nursing note reviewed. Constitutional: General: She is not in acute distress. Appearance: Normal appearance. She is not ill-appearing. HENT: Mouth/Throat: Mouth: Mucous membranes are moist. Pharynx: Oropharynx is clear. No oropharyngeal exudate. Eyes: Extraocular Movements: Extraocular movements intact. Neck: Vascular: No carotid bruit. Cardiovascular: Rate and Rhythm: Regular rhythm. Pulses: Normal pulses. Heart sounds: Normal heart sounds. No murmur heard. Pulmonary: Effort: Pulmonary effort is normal. No respiratory distress. Breath sounds: Normal breath sounds. Abdominal: General: Bowel sounds are normal. There is no distension. Palpations: Abdomen is soft. Tenderness: There is no abdominal tenderness. There is no guarding. Musculoskeletal: Right lower leg: No edema. Left lower leg: No edema. Skin: General: Skin is warm. Capillary Refill: Capillary refill takes less than 2 seconds. Neurological: Mental Status: She is alert and oriented to person, place, and time. Pertinent Labs: BMP: Lab Results Component Value Date NA 136 02/29/2024 K 3.6 02/29/2024 CL 107 02/29/2024 CO2 19 (L) 02/29/2024 BUN 10 02/29/2024 CREATININE 0.64 02/29/2024 GLUCOSE 80 02/29/2024 CALCIUM 9.0 02/29/2024 MG 2.0 02/28/2024 PHOS 2.9 02/28/2024 CBC: Lab Results Component Value Date WBC 8.7 02/29/2024 HGB 14.2 02/29/2024 HCT 41.9 02/29/2024 MCV 86.7 02/29/2024 PLT 307 02/29/2024 Cardiac profile: CK Date Value Ref Range Status 02/29/2024 48 30 - 170 U/L Final CKMB Date Value Ref Range Status 02/29/2024 0.4 0.0 - 4.4 ng/mL Final TROPONIN I Date Value Ref Range Status 02/29/2024 <0.012 <0.034 ng/mL Final 02/28/2024 <0.012 <0.034 ng/mL Final 02/28/2024 <0.012 <0.034 ng/mL Final Coagulation: No results found for: INR, PTT Lipid panel: Lab Results Component Value Date CHOL 160 02/28/2024 HDL 100 (H) 02/28/2024 TRIG 42 02/28/2024 Other: (more content not included)... Normal [facility] Progress Note Bedside TTE performe d. No pericardial effusion. Normal LV and RV systolic function and size. No evidence of R heart strain. No marked mitral valve pathology. IVC less than 2 cm in diameter and collapsible. Will order inflammatory markers to assess for possible pericarditis as cause of pain, though ECG not typical of pericarditis. Patient, however, reporting that she felt as if she had a viral illness a few weeks ago, though she reports she underwent URI testing that was negative. Will trend ECG and troponins. Patient with ST segment abnormalities with HR near 150 - will assess for resolution now that HR better controlled. Patient remains tachycardic but with Well's score < 2 and negative D-dimer - will not perform CTA chest. Will trial ibuprofen for chest discomfort out of concern for pericarditic symptoms and PPI for reporting of bubbling feeling in the patient's chest. Normal [facility] RESPIRATORY PATHOGENS PANEL BY PCRon 02-29-2024 RESPIRATORY PATHOGENS PANEL BY PCR SARS-COV-2 Reference Not Detected Not Detected ADENOVIRUS Reference Not Detected Not Detected CORONAVIRUS HKU1 Reference Not Detected Not Detected CORONAVIRUS NL63 Reference Not Detected Not Detected CORONAVIRUS 229E Reference Not Detected Not Detected CORONAVIRUS OC43 Reference Not Detected Not Detected HUMAN METAPNEUMOVIRUS Reference Not Detected Not Detected HUMAN RHINOVIRUS/ENTEROVIRUS Reference Not Detected Not Detected INFLUENZA A Reference Not Detected Not Detected INFLUENZA B Reference Not Detected Not Detected PARAINFLUENZA 1 Reference Not Detected Not Detected PARAINFLUENZA 2 Reference Not Detected Not Detected PARAINFLUENZA 3 Reference Not Detected Not Detected PARAINFLUENZA 4 Reference Not Detected Not Detected RESPIRATORY SYNCYTIAL VIRUS Reference Not Detected Not Detected BORDETELLA PERTUSSIS Reference Not Detected Not Detected BORDETELLA PARAPERTUSSIS Reference Not Detected Not Detected CHLAMYDIA PNEUMONIAE Reference Not Detected Not Detected MYCOPLASMA PNEUMONIAE Reference Not Detected Not Detected ORDER COMMENTS: Methodology: Multiplex PCR Normal [facility] Comment on above: Performed By: #### L [id number] #### Prune Washer: MARQUITA BONILLA ([phone]) [facility] ([facility]) [address] Respiratory pathogens DNA an d RNA panel ZULEMA+non-probe (Nph)on 02-29-2024 Adenovirus Not detected Not Detected [facility] B. pertussis DNA ZULEMA+probe Ql (Unsp spec) Not detected Not Detected [facility] Bordetella parapertussis Not detected Not Detected [facility] Chlamydia pneumoniae Not detected Not Detected [facility] Coronavirus 229E Not detected Not Detected [facility] Coronavirus HKU1 Not detected Not Detected [facility] Coronavirus NL63 Not detected Not Detected [facility] Coronavirus OC43 Not detected Not Detected [facility] FLUAV RNA ZULEMA+non-probe Ql (Nph) Not detected Not Detected [facility] FLUBV RNA ZULEMA+non-probe Ql (Nph) Not detected Not Detected [facility] Human Metapneumovirus Not detected Not Detected [facility] Human Rhinovirus/Enterovirus Not detected Not Detected [facility] Interpretation and review of laboratory results Normal [facility] Mycoplasma pneumoniae Not detected Not Detected [facility] Parainfluenza 1 Not detected Not Detected [facility] Parainfluenza 2 Not detected Not Detected [facility] Parainfluenza 3 Not detected Not Detected [facility] Parainfluenza 4 Not detected Not Detected [facility] Respiratory Syncytial Virus Not detected Not Detected [facility] SARS-CoV-2 (COVID-19) RNA ZULEMA+non-probe Ql (Nph) Not detected Not Detected [facility] Methodology: Multipl ex PCR [facility] SEDIMENTATION RATE, AUTOMATE Don 02-29-2024 SEDIMENTATION RATE, ERYTHROCYTE <1 Normal 0-20 [facility] Comment on above: Performed By: #### L [id number] #### Prune Washer: MARQUITA BONILLA ([id number]) [facility] ([facility]) [address] THYROID STIMULATING HORMONEo n 02-29-2024 THYROID STIMULATING HORMONE 2.398 uIU/mL Normal 0.465-4.680 [facility] Comment on above: Performed By: #### L [id number] #### Prune Washer: MARQUITA BONILLA ([id number]) [facility] ([facility]) [address] [place] [address] TROPONIN, WITH SERIAL REFLEX on 02-29-2024 Troponin I.cardiac [Mass/Vol] ng/mL Normal <0.034 [facility] Comment on above: Result Comment: ANA MARIA Lopez COMMENTS: Patients with high levels of Biotin oral intake (ie >5 mg/day) may have falsely decreased Troponin levels. Performed By: #### L [id number] #### Prune Washer: MARQUITA BONILLA ([phone]) [facility] ([facility]) [address] [place] [address] TSH Qnon 02-29-2024 Interpretation and review of laboratory results Normal [facility] Troponin I.cardiac [Mass/Vol ]on 02-29-2024 Patients with high levels of Biotin oral intake (ie >5 mg/day) may have falsely decreased Troponin levels. [employer] US ABDOMEN LIMITEDon 024 US ABDOMEN LIMITED Patient Name: AMIE BRAXTON : 1995 [facility]#: [id number] Exam Date/Time: 02/29/2024 11:14 Procedure: US ABDOMEN LIMITED Ordering Provider: AGUIRRE DALJEET Reason For Exam: right upper quadrant, focusing on any gall bladder pathology ULTRASOUND ABDOMEN LIMITED CLINICAL INDICATION: Right upper quadrant TECHNIQUE: Ultrasound of the right upper quadrant COMPARISON: 09/11/2020 FINDINGS: Pancreas: The visualized portions of the pancreatic head and body are unremarkable. The remainder of the pancreas is obscured by bowel gas Liver: Normal echogenicity, size and contours. No focal lesion identified. Gallbladder: Normal. Per the agricultural engineering technologist, the sonographic Knott's sign was negative. Bile ducts: No intrahepatic and extrahepatic biliary dilatation Common bile duct: 2 mm Right kidney: Normal size measuring 9.1 cm. Normal parenchymal echogenicity without solid mass or hydronephrosis. Ascites: None IMPRESSION: 1. Normal ultrasound of the abdomen Report Dictated on Electronically Signed By: Tj Mayfield MD Electronically Signed Date/Time: 02/29/2024 11:15 AM EDT [facility] US Abdomen limitedon 024 1. Normal ultrasound of the abdomen Report Dictated on Electronically Signed By: Tj Mayfield MD Electronically Signed Date/Time: 02/29/2024 11:15 AM EDT [facility] Patient Name: AMIE BRAXTON : 1995 Exam Date/Time: 02/29/2024 11:14 Procedure: US ABDOMEN LIMITED Ordering Provider: AGUIRRE DALJEET Reason For Exam: right upper quadrant, focusing on any gall bladder pathology ULTRASOUND ABDOMEN LIMITED CLINICAL INDICATION: Right upper quadrant TECHNIQUE: Ultrasound of the right upper quadrant COMPARISON: 09/11/2020 FINDINGS: Pancreas: The visualized portions of the pancreatic head and body are unremarkable. The remainder of the pancreas is obscured by bowel gas Liver: Normal echogenicity, size and contours. No focal lesion identified. Gallbladder: Normal. Per the agricultural engineering technologist, the sonographic Knott's sign was negative. Bile ducts: No intrahepatic and extrahepatic biliary dilatation Common bile duct: 2 mm Right kidney: Normal size measuring 9.1 cm. Normal parenchymal echogenicity without solid mass or hydronephrosis. Ascites: None [facility] Tj Mayfield MD - 02/29/2024 Patient Name: AMIE BRAXTON : 1995 Exam Date/Time: 02/29/2024 11:14 Procedure: US ABDOMEN LIMITED Ordering Provider: AGUIRRE DALJEET Reason For Exam: right upper quadrant, focusing on any gall bladder pathology ULTRASOUND ABDOMEN LIMITED CLINICAL INDICATION: Right upper quadrant TECHNIQUE: Ultrasound of the right upper quadrant COMPARISON: 09/11/2020 FINDINGS: Pancreas: The visualized portions of the pancreatic head and body are unremarkable. The remainder of the pancreas is obscured by bowel gas Liver: Normal echogenicity, size and contours. No focal lesion identified. Gallbladder: Normal. Per the agricultural engineering technologist, the sonographic Knott's sign was negative. Bile ducts: No intrahepatic and extrahepatic biliary dilatation Common bile duct: 2 mm Right kidney: Normal size measuring 9.1 cm. Normal parenchymal echogenicity without solid mass or hydronephrosis. Ascites: None IMPRESSION: 1. Normal ultrasound of the abdomen Report Dictated on Electronically Signed By: Tj Mayfield MD Electronically Signed Date/Time: 02/29/2024 11:15 AM EDT [facility] Radiology Study observation (narrative) [facility] US Abdomen limitedOrdered By : Tj Mayfield on 02-29-2024 [facility] Work Phone: US Heart TransthoracicOrdere d By: Pranav Roe on 02-29-2024 Ao Root Index 1.62 cm/m2 [facility] Work Phone: Aortic Root 2.3 cm [facility] Work Phone: Ascending Aorta 2.4 cm [facility] Work Phone: Ascending Aorta Index 1.69 cm/m2 [facility] Work Phone: AV Mean Gradient 3 mmHg [facility] Work Phone: AV Mean Velocity 0.8 m/s [facility] Work Phone: AV Peak Gradient 6 mmHg [facility] Work Phone: AV Peak Velocity 1.2 m/s [facility] Work Phone: AV Velocity Ratio 0.83 [facility] Work Phone: AV VTI 24.2 cm [facility] Work Phone: E/E' Lateral 4.55 [facility] Work Phone: E/E' Ratio (Averaged) 5.12 [facility] Work Phone: E/E' Septal 5.69 [facility] Work Phone: EF BP 57 % 55 - 100 % [facility] Work Phone: Fractional Shortening 2D 38 % 28 - 44 % [facility] Work Phone: Interpretation and review of laboratory results Abnormal [facility] Work Phone: IVSd 0.7 cm 0.6 - 0.9 cm [facility] Work Phone: LA Diameter 2.3 cm [facility] Work Phone: LA Size Index 1.62 cm/m2 [facility] [employer] Work Phone: LA Volume 2C 20 mL Abnormal 22 - 52 mL [facility] Work Phone: LA Volume 4C 21 mL Abnormal 22 - 52 mL [facility] Work Phone: LA Volume A/L 22 mL [facility] Work Phone: LA Volume BP 21 mL Abnormal 22 - 52 mL [facility] Work Phone: LA Volume Index 2C 14 mL/m2 Abnormal 16 - 34 mL/m2 [facility] Work Phone: LA Volume Index 4C 15 mL/m2 Abnormal 16 - 34 mL/m2 [facility] Work Phone: LA Volume Index A/L 15 mL/m2 16 - 34 mL/m2 [facility] Work Phone: LA Volume Index BP 15 ml/m2 Abnormal 16 - 34 ml/m2 [facility] Work Phone: LA/AO Root Ratio 1.00 [facility] al[facility] Work Phone: LV E' Lateral Velocity 20 cm/s [facility] Work Phone: LV E' Septal Velocity 16 cm/s [facility] Work Phone: LV EDV A2C 71 mL [facility] Work Phone: LV EDV A4C 73 mL [facility] Work Phone: LV EDV BP 73 mL 56 - 104 mL [facility] Work Phone: LV EDV Index A2C 50 mL/m2 [facility] alth Work Phone: LV EDV Index A4C 51 mL/m2 [facility] Work Phone: LV EDV Index BP 51 mL/m2 [facility] Work Phone: LV Ejection Fraction A2C 58 % [facility] Work Phone: LV Ejection Fraction A4C 57 % [facility] Work Phone: LV ESV A2C 30 mL [facility] Work Phone: LV ESV A4C 31 mL [facility] Work Phone: LV ESV BP 32 mL 19 - 49 mL [facility] Work Phone: LV ESV Index A2C 21 mL/m2 [facility] Work Phone: LV ESV Index A4C 22 mL/m2 [facility] Work Phone: LV ESV Index BP 23 mL/m2 [facility] Work Phone: LV Mass 2D 61.6 g Abnormal 67 - 162 g [facility] Work Phone: LV Mass 2D Index 43.4 g/m2 43 - 95 g/m2 [facility] Work Phone: LV RWT Ratio 0.26 [facility] Work Phone: LVIDd 3.9 cm 3.9 - 5.3 cm [facility] Work Phone: LVIDd Index 2.75 cm/m2 [facility] Work Phone: LVIDs 2.4 cm [facility] Work Phone: LVIDs Index 1.69 cm/m2 [facility] Work Phone: LVOT Mean Gradient 2 mmHg [employer] Work Phone: LVOT Peak Gradient 4 mmHg [employer] [facility] Work Phone: LVOT Peak Velocity 1.0 m/s [facility] Work Phone: LVOT VTI 18.7 cm [facility] Work Phone: LVOT:AV VTI Index 0.77 [facility] Work Phone: LVPWd 0.5 cm Abnormal 0.6 - 0.9 cm [facility] Work Phone: [phone] MV A Velocity 0.60 m/s [facility] Work Phone: MV E Velocity 0.91 m/s [facility] Work Phone: MV E Wave Deceleration Time 197.7 ms [facility] Work Phone: MV E/A 1.52 [facility] Work Phone: [phone] RV Basal Dimension 2.3 cm [facility] Work Phone: RV Free Wall Peak S' 14 cm/s [facility] Work Phone: [phone] RV Mid Dimension 2.7 cm [facility] Work Phone: [phone] TAPSE 2.5 cm 1.7 cm [facility] Work Phone: [phone] [facility] Work Phone: [phone] Heart Transthoracicon Left Ventricle: Left ventricle size is normal. Normal wall thickness. Normal left ventricular systolic function. EF by 2D [employer]psons Biplane is 57%. Normal wall motion. Normal diastolic function. Right Ventricle: Right ventricle size is normal. Normal systolic function. No significant valvular abnormalities. Left Ventricle Left ventricle size is normal. Normal wall thickness. Normal left ventricular systolic function. EF by 2D [employer]ons Biplane is 57%. Normal wall motion. Normal diastolic function. Right Ventricle Right ventricle size is normal. Normal systolic function. Left Atrium Left atrium size is normal. Right Atrium Right atrium size is normal. IVC/SVC IVC was not well visualized. IVC diameter is normal and decreases greater than 50% during inspiration; therefore the estimated right atrial pressure is normal (~3 mmHg). Mitral Valve Valve structure is normal. No regurgitation. No stenosis noted. Tricuspid Valve Valve structure is normal. Trace regurgitation. Aortic Valve Trileaflet. No regurgitation. No stenosis. Pulmonic Valve Valve structure is normal. No regurgitation. Ascending Aorta Normal sized sinuses of Valsalva and ascending aorta. Pericardium No pericardial effusion. Septum No interatrial shunt visualized on color Doppler. Study Details Image quality: suboptimal. Heart rate: 71 bpm. Blood pressure: 102/70 mmHg. No contrast was given. Echo Additional Conclusions No significant valvular abnormalities.Technicall y difficult study. CV CPACS Vital signsOrdered By: Juliana De Jesus on 02-29-2024 Heart rate 104 /min bpm [facility] Work Phone: CBC W Auto Differential pane l (Bld)on 02-28-2024 Basophils (Bld) [#/Vol] 0.1 10*3/uL 0.0 - 0.2 10*3/uL [facility] Basophils/100 WBC (Bld) 1.0 % 0.0 - 2.0 % [facility] Eosinophils (Bld) [#/Vol] 0.1 10*3/uL 0.0 - 0.5 10*3/uL [facility] Eosinophils/100 WBC (Bld) 0.9 % 0.0 - 6.0 % [facility] Erythrocyte distribution width (RBC) [Ratio] 13.1 % 11.5 - 15.0 % [facility] Hematocrit (Bld) [Volume fraction] 46.9 % 35.0 - 47.0 % [facility] Hemoglobin (Bld) [Mass/Vol] 16.2 g/dL High 11.7 - 16.0 g/dL [facility] Immature granulocytes (Bld) [#/Vol] 0.0 10*3/uL NINF - 0.1 10*3/uL [facility] Immature granulocytes/100 WBC (Bld) 0.4 % 0.0 - 2.0 % [facility] Interpretation and review of laboratory results Abnormal [facility] Lymphocytes (Bld) [#/Vol] 1.3 10*3/uL 1.0 - 4.3 10*3/uL [facility] Lymphocytes/100 WBC (Bld) 20.0 % 15.0 - 45.0 % [facility] MCH (RBC) [Entitic mass] 29.9 pg 26.0 - 34.0 pg [facility] MCHC (RBC) [Mass/Vol] 34.5 % 30.5 - 36.0 % [facility] MCV (RBC) [Entitic vol] 86.5 fL 77.0 - 99.0 fL [facility] Monocytes (Bld) [#/Vol] 0.4 10*3/uL 0.0 - 0.9 10*3/uL [facility] Monocytes/100 WBC (Bld) 5.4 % 5.0 - 13.0 % [facility] Neutrophils (Bld) [#/Vol] 4.8 10*3/uL 1.8 - 7.5 10*3/uL [facility] Neutrophils/100 WBC (Bld) 72.3 % 38.0 - 82.0 % [facility] Nucleated RBC/100 WBC (Bld) [Ratio] 0.0 % [facility] Platelet mean volume (Bld) [Entitic vol] 10.7 fL 9.0 - 12.7 fL [facility] Platelets (Bld) [#/Vol] 319 10*3/uL 140 - 440 10*3/uL [facility] RBC (Bld) [#/Vol] 5.42 10*6/uL High 3.80 - 5.2 0 10*6/uL [facility] WBC (Bld) [#/Vol] 6.7 10*3/uL 3.6 - 10.7 10*3/uL [facility] CBC WITH AUTO DIFFERENTIALon 02-28-2024 Basophils (Bld) [#/Vol] 0.1 10*3/uL Normal 0.0-0.2 [facility] Comment on above: Performed By: #### L [id number] #### Prune Washer: MARQUITA BONILLA ([phone]) [facility]) [address] [place] [address] Basophils/100 WBC (Bld) 1.0 % Normal 0.0-2.0 [facility] Comment on above: Performed By: #### L [id number] #### Prune Washer: MARQUITA BONILLA ([id number]) [facility] ([facility]) [address] [place] [address] [place] Eosinophils (Bld) [#/Vol] 0.1 10*3/uL Normal 0.0-0.5 [facility] Comment on above: Performed By: #### L [id number] #### Prune Washer: MARQUITA BONILLA ([id number]) [facility] ([facility]) [address] [place] [address] [place] Eosinophils/100 WBC (Bld) 0.9 % Normal 0.0-6.0 [facility] Comment on above: Performed By: #### L [id number] #### Prune Washer: MARQUITA BONILLA ([id number]) [facility]) [address] [place] [address] Erythrocyte distribution width (RBC) [Ratio] 13.1 % Normal 11.5-15.0 [facility] Comment on above: Performed By: #### L [id number] #### Prune Washer: MARQUITA BONILLA ([phone]) [facility]) [address] [place] [address] Hematocrit (Bld) [Volume fraction] 46.9 % Normal 35.0-47.0 [facility] Comment on above: Performed By: #### L [id number] #### Prune Washer: MARQUITA BONILLA ([phone]) [address] Hemoglobin (Bld) [Mass/Vol] 16.2 g/dL High 11.7-16.0 [facility] Comment on above: Performed By: #### L [id number] #### Prune Washer: MARQUITA BONILLA ([phone]) [facility]) [address] [place] [address] IMMATURE GRANS % 0.4 % Normal 0.0-2.0 [facility] Comment on above: Performed By: #### L [id number] #### Prune Washer: MARQUITA BONILLA ([phone]) [facility]) [address] [place] [address] IMMATURE GRANS ABSOLUTE 0.0 10*3/uL Normal <0.1 [facility] Comment on above: Performed By: #### L [id number] #### Prune Washer: MARQUITA BONILLA ([phone]) [facility]) [address] [place] [address] Lymphocytes (Bld) [#/Vol] 1.3 10*3/uL Normal 1.0-4.3 [facility] Comment on above: Performed By: #### L [id number] #### Prune Washer: MARQUITA BONILLA ([phone]) [facility]) [address] [place] [address] Lymphocytes/100 WBC (Bld) 20.0 % Normal 15.0-45.0 [facility] Comment on above: Performed By: #### L [id number] #### Prune Washer: MARQUITA BONILLA ([id number]) [facility]) [address] [place] [address] MCH (RBC) [Entitic mass] 29.9 pg Normal 26.0-34.0 [facility] Comment on above: Performed By: #### L [id number] #### Prune Washer: MARQUITA BONILLA ([phone]) [facility]) [address] [place] [address] MCHC 34.5 % Normal 30.5-36.0 [facility] Comment on above: Performed By: #### L [id number] #### Prune Washer: MARQUITA BONILLA ([id number]) [facility]) [address] [place] [address] MCV (RBC) [Entitic vol] 86.5 fL Normal 77.0-99.0 [facility] Comment on above: Performed By: #### L [id number] #### Prune Washer: MARQUITA BONILLA ([phone]) [facility]) [address] [place] [address] Monocytes (Bld) [#/Vol] 0.4 10*3/uL Normal 0.0-0.9 [facility] Comment on above: Performed By: #### L [id number] #### Prune Washer: MARQUITA BONILLA ([phone]) [facility]) [address] [place] [address] Monocytes/100 WBC (Bld) 5.4 % Normal 5.0-13.0 [facility] Comment on above: Performed By: #### L [id number] #### Prune Washer: MARQUITA BONILLA ([id number]) [facility]) [address] [place] [address] [place] NEUTROPHILS ABSOLUTE 4.8 10*3/uL Normal 1.8-7.5 [facility] Comment on above: Performed By: #### L [id number] #### Prune Washer: MARQUITA BONILLA ([id number]) [facility] ([facility]) [address] [place] [address] Neutrophils/100 WBC (Bld) 72.3 % Normal 38.0-82.0 [facility] Comment on above: Performed By: #### L [id number] #### Prune Washer: MARQUITA BONILLA ([id number]) [facility] ([facility]) [address] [place] [address] NRBC 0.0 /100 WBCs Normal 0.0-2.0 [facility] Comment on above: Performed By: #### L [id number] #### Prune Washer: MARQUITA BONILLA ([id number]) [facility] ([facility]) [address] [place] [address] Platelet mean volume (Bld) [Entitic vol] 10.7 fL Normal 9.0-12.7 [facility] Comment on above: Performed By: #### L [id number] #### Prune Washer: MARQUITA BONILLA ([id number]) [facility] ([facility]) [address] [place] [address] [place] Platelets (Bld) [#/Vol] 319 10*3/uL Normal 140-440 [facility] Comment on above: Performed By: #### L [id number] #### Prune Washer: MARQUITA BONILLA ([id number]) [facility] ([facility]) [address] [place] [address] [place] RBC (Bld) [#/Vol] 5.42 10*6/uL High 3.80-5.20 [facility] Comment on above: Performed By: #### L [id number] #### Prune Washer: MARQUITA BONILLA ([id number]) [facility] ([facility]) [address] [place] [address] [place] WBC (Bld) [#/Vol] 6.7 10*3/uL Normal 3.6-10.7 [facility] Comment on above: Performed By: #### L [id number] #### Prune Washer: MARQUITA BONILLA ([id number]) [facility] ([facility]) [address] COMPREHENSIVE METABOLIC PANE Krishna 02-28-2024 Albumin [Mass/Vol] 5.1 g/dL High 3.5-5.0 [facility] Comment on above: Performed By: #### L AB103, [id number], LAB17, [id number], [id number] ####Prune Washer: SHERRIE BRANNON ([id number])[facility] ([facility])[address] ALP [Catalytic activity/Vol] 67 U/L Normal 38-126 [facility] Comment on above: Performed By: #### L AB103, [id number], LAB17, [id number], [id number] ####Prune Washer: SHERRIE BRANNON ([id number])[facility] ([facility])[address] ALT [Catalytic activity/Vol] 27 U/L Normal 0-34 [facility] Comment on above: Performed By: #### L AB103, GTY229, LAB17, [id number], ZSB607 ####Prune Washer: SHERRIE BRANNON ([id number])[facility] ([facility])[address] Anion gap [Moles/Vol] 13 mmol/L Normal 3-13 [facility] Comment on above: Performed By: #### L AB103, VOG792, LAB17, [id number], [id number] ####Prune Washer: SHERRIE BRANNON ([id number])[facility] ([facility])[address] AST [Catalytic activity/Vol] 28 U/L Normal 15-46 [facility] Comment on above: Performed By: #### L AB103, NTV960, LAB17, [id number], VRV120 ####Prune Washer: SHERRIE BRANNON ([id number])[facility] ([facility])[address] Bilirubin [Mass/Vol] 0.7 mg/dL Normal 0.2-1.3 [facility] Comment on above: Performed By: #### L AB103, VGV851, LAB17, [id number], GFW374 ####Prune Washer: SHERRIE BRANNON ([id number])[facility] ([facility])[address] Calcium [Mass/Vol] 9.8 mg/dL Normal 8.4-10.4 [facility] Comment on above: Performed By: #### L AB103, UVS559, LAB17, [id number], [id number] ####Prune Washer: SHERRIE BRANNON ([id number])[facility] ([facility])[address] Chloride [Moles/Vol] 102 mmol/L Normal 98-107 [facility] Comment on above: Performed By: #### L AB103, XAX137, LAB17, [id number], [id number] ####Prune Washer: SHERRIE BRANNON ([id number])[facility] ([facility])[address] CO2 [Moles/Vol] 22 mmol/L Normal 22-30 [facility] Comment on above: Performed By: #### L AB103, JUT154, LAB17, [id number], IMD039 ####Prune Washer: SHERRIE BRANNON ([id number])[facility] ([facility])[address] Creatinine [Mass/Vol] 0.70 mg/dL Normal 0.52-1.04 [facility] Comment on above: Performed By: #### L AB103, PGQ794, LAB17, [id number], YGU411 ####Prune Washer: SHERRIE BRANNON ([id number])[facility] ([facility])[address] GLOMERULAR FILTRATION RATE ML/MIN/1.73 SQ M.PREDICTED >90.0 Normal >60.0 [facility] Comment on above: Result Comment: Calc ulation based on the Chronic Kidney Disease Epidemiology Collaboration (CKD-EPI) equation refit without adjustment for race Performed By: #### L AB103, FGH445, LAB17, [id number], RBB720 ####Prune Washer: SHERRIE BRANNON ([id number])[facility] ([facility])[address] Glucose [Mass/Vol] 88 mg/dL Normal 70-100 [facility] Comment on above: Performed By: #### L AB103, INM777, LAB17, [id number], TWE910 ####Prune Washer: SHERRIE BRANNON ([id number])[facility] ([facility])[address] Potassium [Moles/Vol] 3.7 mmol/L Normal 3.5-5.1 [facility] Comment on above: Performed By: #### L AB103, CUU677, LAB17, [id number], ZTF223 ####Prune Washer: SHERRIE BRANNON ([id number])[facility] ([facility])[address] Protein [Mass/Vol] 8.0 g/dL Normal 6.3-8.2 [facility] Comment on above: Performed By: #### L AB103, OWM992, LAB17, [id number], XRD260 ####Prune Washer: SHERRIE BRANNON ([id number])[facility] ([facility])[address] [place] [address] [place] Sodium [Moles/Vol] 137 mmol/L Normal 135-145 [facility] Comment on above: Performed By: #### L AB103, QRR043, LAB17, [id number], UCT390 ####Prune Washer: SHERRIE BRANNON ([id number])[facility] ([facility])[address] [place] [address] [place] Urea nitrogen [Mass/Vol] 12 mg/dL Normal 7-17 [facility] Comment on above: Performed By: #### L AB103, PNM632, LAB17, [id number], MUM413 ####Prune Washer: SHERRIE BRANNON ([id number])[facility] ([facility])[address] [place] [address] Comprehensive metabolic 1998 panelon 02-28-2024 Albumin [Mass/Vol] 5.1 g/dL High 3.5 - 5.0 g/dL [facility] ALP [Catalytic activity/Vol] 67 U/L 38 - 126 U/L [facility] ALT [Catalytic activity/Vol] 27 U/L 0 - 34 U/L [facility] Anion gap [Moles/Vol] 13 mmol/L 3 - 13 mmol/L [facility] AST [Catalytic activity/Vol] 28 U/L 15 - 46 U/L [facility] Bilirubin [Mass/Vol] 0.7 mg/dL 0.2 - 1 .3 mg/dL [facility] Calcium [Mass/Vol] 9.8 mg/dL 8.4 - 10. 4 mg/dL [facility] Chloride [Moles/Vol] 102 mmol/L 98 - 10 7 mmol/L [facility] CO2 [Moles/Vol] 22 mmol/L 22 - 30 mmol/L [facility] Creatinine [Mass/Vol] 0.70 mg/dL 0.52 - 1.04 mg/dL [facility] GFR/1.73 sq M.predicted (S/P/Bld) [Vol rate/Area] - PINF [facility] Comment on above: Calculation based on the Chronic Kidney Disease Epidemiology Collaboration (CKD-EPI) equation refit without adjustment for race Glucose [Mass/Vol] 88 mg/dL 70 - 100 mg/dL [facility] Interpretation and review of laboratory results Abnormal [facility] Potassium [Moles/Vol] 3.7 mmol/L 3.5 - 5.1 mmol/L [facility] Protein [Mass/Vol] 8.0 g/dL 6.3 - 8.2 g/dL [facility] Sodium [Moles/Vol] 137 mmol/L 135 - 145 mmol/L [facility] Urea nitrogen [Mass/Vol] 12 mg/dL 7 - 17 mg/dL [facility] D-DIMER,QUANTITATIVEon 02-27 D-DIMER, INNOVANCE <0.19 Normal <0.50 [facility] Comment on above: Result Comment: ANA MARIA Ray COMMENTS: [employer] D-Dimer values of <0.50 mg/L FEU can be used in combination with a pre-test probability model (e.g. Well's) to exclude pulmonary embolism (PE) disease, as well as an aid in the diagnosis of deep vein thrombosis (DVT). Performed By: #### L [id number] ####Prune Washer: SHERRIE BRANNON ([phone])[facility] ([facility])[address] [place] [address] ECG 12-LEADon 02-28-2024 ECG 12-LEAD IMPRESSION: Sinus tachycardia LAE, consider biatrial enlargement RSR' in V1 or V2, right VCD or RVH Repol abnrm suggests ischemia, diffuse leads EKG per my interpretation showed a sinus tachycardia at a rate of 120 with a normal axis. There is diffuse J-point depression with T wave inversions inferiorly. There is no obvious ST elevation per se. Intervals within normal notes otherwise. There is no old EKG available for comparison. Electronically Signed On 02-28-2024 20:25:28 EDT by Boo Dorantes [facility] ECG 12-LEAD IMPRESSION: Sinus tachycardia Left atrial enlargement RSR' in V1 or V2, right VCD or RVH Repol abnrm suggests ischemia, diffuse leads EKG per my interpretation shows a sinus tachycardia at a rate of 110 with a normal axis. There is some nonspecific ST-T changes diffusely with diffuse J-point depression. There is no true ST elevation. Intervals within normal limits. There is no old EKG available for comparison. Electronically Signed On 02-28-2024 20:24:41 EDT by Boo Dorantes [facility] ED Provider Noteon ED Provider Note EMERGENCY DEPARTMENT ENCOUNTER Pt Name: Amie Braxton Birthdate 1995 Date of evaluation: 02/28/2024 ED Provider: Boo Dorantes MD CHIEF COMPLAINT Chief Complaint Patient presents with Other Pt states that an hour ago she had an episode in which she felt that there was a bubble in her chest, which went away and was followed by the sensation of pins and needles throughout her whole body, along with dizziness. Pt still reporting dizziness and the pins & needles sensation, but states the sensation of a bubble in her chest has gone away. Pt reports she was recently diagnosed with a panic disorder and started prozac 9 days ago HISTORY OF PRESENT ILLNESS (Location/Symptom, Timing/Onset, Context/Setting, Quality, Duration, Modifying Factors, Severity) Note limiting factors. I wore appropriate PPE for the entirety of this encounter. HPI Amie Braxton is a 28 y.o. who presents to the emergency department with chief complaint of chest discomfort and paresthesias. The patient said she was sitting at a coffee shop. All of a sudden she developed a bubbling in her chest. It was very brief. After that she developed a stinging sensation all over her body which she still has. She said her Apple Watch told her that her heart rate shot up to 150. She was trying to calm herself down. She has had tachycardia before, but not really to this extent. She denies any other cardiac history that she is aware of. The patient feels dizzy with this, but she has had dizziness on and off for a very long time. She has been working with her doctor to treat that. She did feel tightness across her chest. She felt like she could not catch her breath. The patient denies any other cardiac or pulmonary history that she is aware. She was very diaphoretic when this happened although denies any fevers or chills. She has a slight headache although vision normal. She had a slight cough at the time although no other URI symptoms described. She denies any abdominal pain, vomiting or diarrhea. No urinary complaints. She denies being . No new pain or swelling in her legs. No localizing numbness or weakness. No excessive stress or anxiety described. No other symptoms. She denies smoke, alcohol or drug use. She is unaware of any cardiac history in the family. Nursing Notes were reviewed. Limitations to history: None Outside historians: Family REVIEW OF SYSTEMS Review of Systems Constitutional: Positive for diaphoresis. Negative for chills and fever. HENT: Negative for sore throat. Eyes: Negative for visual disturbance. Respiratory: Positive for cough and shortness of breath. Cardiovascular: Positive for chest pain. Gastrointestinal: Negative for abdominal pain, diarrhea and vomiting. Genitourinary: Negative for dysuria. Musculoskeletal: Negative. Skin: Negative for color change and rash. Neurological: Positive for dizziness, light-headedness and headaches. Negative for syncope, weakness and numbness. Describes diffuse paresthesias. Psychiatric/Behavioral: Negative. The patient is not nervous/anxious. All other systems reviewed and are negative. Pertinent positives and negatives as per HPI. PAST MEDICAL HISTORY Past Medical History: Diagnosis Date Exercise-induced asthma IC (interstitial cystitis) Multiple food allergies SURGICAL HISTORY Past Surgical History: Procedure Laterality Date TONSILLECTOMY CURRENT MEDICATIONS Previous Medications ALBUTEROL 0.63 MG/3ML NEBULIZER SOLUTION Inhale 1 ampule. ALBUTEROL 108 (90 BASE) MCG/ACT INHALER Inhale 1 puff every 6 hours as needed. ALLERGIES Valier oil, Beef allergy, Cvs digestive probiotic [lactase-lactobacillus], Egg-derived products, Lactose, Milk-related compounds, Nitrofurantoin, Peanut allergen powder-dnfp, Peanut-containing drug products, Pineapple, Soy allergy, Soybean-containing drug products, and Vancomycin FAMILY HISTORY No family history on file. SOCIAL HISTORY Social History Socioeconomic History Marital status: Single Tobacco Use Smoking status: Never SCREENINGS [place] Coma Scale Best Eye Response: Spontaneous Best Verbal Response: Oriented Best Motor Response: Follows commands [place] Coma Scale Score: 15 PHYSICAL EXAM ED Triage Vitals [02/28/24 1726] Temp Heart Rate Resp BP 37.1 ?C (98.8 ?F) (!) 120 18 (!) 140/90 SpO2 Temp Source Heart Rate Source Patient Position 100 % Temporal Monitor -- BP Location FiO2 (%) -- -- Physical Exam Vitals and nursing note reviewed. Exam conducted with a cloth shrinking machine operator helper present. Constitutional: Appearance: Normal appearance. She is well-developed and normal weight. She is not toxic-appearing. Comments: Patient appears uncomfortable although nontoxic. HENT: Head: Normocephalic and atraumatic. Right Ear: External ear normal. Left Ear: External ear normal. Nose: Nose normal. Mouth/Throat: Mouth: Mucous membranes are moist. (more content not included)... Normal [facility]QU [facility] Fibrin D-dimer FEU (PPP) [Ma ss/Vol]Ordered By: Alisha Rod on 02-28-2024 Interpretation and review of laboratory results Normal musiXmatch [facility] D-Dimer va lues of <0.50 mg/L FEU can be used in combination with a pre-test probability model (e.g. Well's) to exclude pulmonary embolism (PE) disease, as well as an aid in the diagnosis of deep vein thrombosis (DVT). [facility] LIPASEon 02-28-2024 Lipase [Catalytic activity/Vol] 62 U/L Normal 23-300 [facility] Comment on above: Performed By: #### L AB99, LAB18, UMZ504, MUQ674, ZDJ893 ####Prune Washer: MARQUITA BONILLA ([phone])[facility] ([facility])[address] [place] [address] LIPID PANELon 02-28-2024 Cholesterol [Mass/Vol] 160 mg/dL Normal <200 [facility] Comment on above: Performed By: #### L AB99, LAB18, LUY158, ARH929, XPN078 ####Prune Washer: MARQUITA BONILLA ([id number])[facility])[address] [place] [address] Cholesterol in HDL [Mass/Vol] 100 mg/dL High 40-60 [facility] Comment on above: Performed By: #### L AB99, LAB18, KOC517, VCD383, GOZ150 ####Prune Washer: MARQUITA BONILLA ([phone])[facility])[address] [place] [address] Cholesterol.total/Chol esterol in HDL [Mass ratio] 2 {ratio} Normal [facility] Comment on above: Result Comment: Ref Range: < 3 Low Risk for CHD 3-6 Mod Risk for CHD > 6 High Risk for CHD Performed By: #### L AB99, LAB18, VEA879, PEU354, JYX929 ####Prune Washer: MARQUITA BONILLA ([id number])[facility])[address] [place] [address] LOW DENSITY LIPOPROTEIN 52 mg/dL Normal 0-<100 [facility] Comment on above: Performed By: #### L AB99, LAB18, BTX450, TLA336, MCJ476 ####Prune Washer: MARQUITA BONILLA ([phone])[facility] ([facility])[address] [place] [address] Triglyceride [Mass/Vol] 42 mg/dL Normal <150 [facility] Comment on above: Performed By: #### L AB99, LAB18, RQL006, GZN349, IDR093 ####Prune Washer: MARQUITA BONILLA ([id number])[facility] ([facility])[address] [place] [address] Laboratory - Chemistry and C hemistry - challengeon 02-28-2024 Magnesium [Mass/Vol] 2.0 mg/dL 1.6 - 2 .3 mg/dL [facility] Troponin I.cardiac [Mass/Vol] ng/mL NINF - 0.034 ng/mL [facility] TSH Qn 2.803 m[IU]/L [facility] Troponin I.cardiac [Mass/Vol] ng/mL NINF - 0.034 ng/mL [facility] Magnesium [Mass/Vol] 2.1 mg/dL 1.6 - 2 .3 mg/dL [facility] Laboratory - CoagulationOrde red By: Alisha Rod on 02-28-2024 Fibrin D-dimer FEU (PPP) [Mass/Vol] mg/L NINF - 0.50 mg/L [facility] Lipid 1996 panelon 4 Cholesterol [Mass/Vol] 160 mg/dL NINF - 200 mg/dL [facility] Cholesterol in HDL [Mass/Vol] 100 mg/dL High 40 - 60 mg/dL [facility] Cholesterol in LDL [Mass/Vol] 52 mg/dL 0 - <100 [facility] Cholesterol.total/Chol esterol in HDL [Mass ratio] 2 {ratio} [facility] Comment on above: Ref Range: < 3 Low Risk for CHD 3-6 Mod Risk for CHD > 6 High Risk for CHD Interpretation and review of laboratory results Abnormal [facility] Triglyceride [Mass/Vol] 42 mg/dL NINF - 150 mg/dL [facility] MAGNESIUMon 02-28-2024 Magnesium [Mass/Vol] 2.0 mg/dL Normal 1.6-2.3 [facility] Comment on above: Performed By: #### L AB99, LAB18, UDR410, IZG032, SPB998 ####Prune Washer: MARQUITA BONILLA ([phone])[facility] ([facility])[address] [place] [address] Magnesium [Mass/Vol] 2.1 mg/dL Normal 1.6-2.3 [facility] Comment on above: Performed By: #### L AB103, TAI986, LAB17, [id number], [id number] ####Prune Washer: SHERRIE BRANNON ([id number])[facility] ([facility])[address] Magnesium [Mass/Vol]on 02-27 Interpretation and review of laboratory results Normal [facility] NT PRO BNPon 02-28-2024 NT PRO BNP <20 Normal <20-100 [facility] Comment on above: Performed By: #### L AB103, GDO623, LAB17, [id number], [id number] ####Prune Washer: SHERRIE BRANNON ([id number])[facility] ([facility])[address] [place] [address] Natriuretic peptide B [Mass/ Vol]on 02-28-2024 Natriuretic peptide B (Bld) [Mass/Vol] pg/mL <20 - 100 pg/mL [facility] No Panel Informationon 02-27 Interpretation and review of laboratory results Normal [facility] P [place] 77 degrees [facility] [place] Interval 120 ms [facility] QRS [place] 70 degrees [facility] QRSD Interval 85 ms [facility] QT Interval 324 ms [facility] QTC Interval 458 ms [facility] T Wave [place] -79 degrees [facility] Sinus tachycardia LAE, consider biatrial enlargement RSR' in V1 or V2, right VCD or RVH Repol abnrm suggests ischemia, diffuse leads EKG per my interpretation showed a sinus tachycardia at a rate of 120 with a normal axis. There is diffuse J-point depression with T wave inversions inferiorly. There is no obvious ST elevation per se. Intervals within normal notes otherwise. There is no old EKG available for comparison. Electronically Signed On 02-28-2024 20:25:28 EDT by Boo Faust MD - 02/28/2024 IMPRESSION: Sinus tachycardia LAE, consider biatrial enlargement RSR' in V1 or V2, right VCD or RVH Repol abnrm suggests ischemia, diffuse leads EKG per my interpretation showed a sinus tachycardia at a rate of 120 with a normal axis. There is diffuse J-point depression with T wave inversions inferiorly. There is no obvious ST elevation per se. Intervals within normal notes otherwise. There is no old EKG available for comparison. Electronically Signed On 02-28-2024 20:25:28 EDT by Boo Dorantes [facility] P [place] 71 degrees [facility] [place] Interval 163 ms [facility] QRS [place] 50 degrees [facility] QRSD [facility]val 332 ms [facility] QTC Interval 448 ms [facility] T Wave [place] -85 degrees [facility] Sinus tachycardia Left atrial enlargement RSR' in V1 or V2, right VCD or RVH Repol abnrm suggests ischemia, diffuse leads EKG per my interpretation shows a sinus tachycardia at a rate of 110 with a normal axis. There is some nonspecific ST-T changes diffusely with diffuse J-point depression. There is no true ST elevation. Intervals within normal limits. There is no old EKG available for comparison. Electronically Signed On 02-28-2024 20:24:41 EDT by Boo Faust MD - 02/28/2024 IMPRESSION: Sinus tachycardia Left atrial enlargement RSR' in V1 or V2, right VCD or RVH Repol abnrm suggests ischemia, diffuse leads EKG per my interpretation shows a sinus tachycardia at a rate of 110 with a normal axis. There is some nonspecific ST-T changes diffusely with diffuse J-point depression. There is no true ST elevation. Intervals within normal limits. There is no old EKG available for comparison. Electronically Signed On 02-28-2024 20:24:41 EDT by Boo Dorantes [facility] Interpretation and review of laboratory results Normal [facility] PHOSPHORUSon 02-28-2024 Phosphate [Mass/Vol] 2.9 mg/dL Normal 2.5-4.5 [facility] Comment on above: Performed By: #### L AB99, LAB18, BQM927, EUZ495, DRN137 ####Prune Washer: MARQUITA BONILLA ([phone])[facility])[address] [place] [address] Phosphate [Moles/Vol]on 02-09 Phosphate [Mass/Vol] 2.9 mg/dL 2.5 - 4 .5 mg/dL [facility] THYROID STIMULATING HORMONEo n 02-28-2024 THYROID STIMULATING HORMONE 2.803 uIU/mL Normal 0.465-4.680 [facility] Comment on above: Performed By: #### L AB103, OHS066, LAB17, [id number], [id number] ####Prune Washer: SHERRIE BRANNON ([id number])[facility] ([facility])[address] [place] [address] [place] TROPONIN Ion 02-28-2024 Troponin I.cardiac [Mass/Vol] ng/mL Normal <0.034 [facility] Comment on above: Result Comment: ANA MARIA Lopez COMMENTS: Patients with high levels of Biotin oral intake (ie >5 mg/day) may have falsely decreased Troponin levels. Performed By: #### L AB99, LAB18, FBX050, BSO683, CDZ518 ####Prune Washer: MARQUITA BONILLA ([id number])[facility] ([facility])[address] [place] [address] [place] TROPONIN, WITH SERIAL REFLEX on 02-28-2024 Troponin I.cardiac [Mass/Vol] ng/mL Normal <0.034 [facility] Comment on above: Result Comment: ANA MARIA Lopez COMMENTS: Patients with high levels of Biotin oral intake (ie >5 mg/day) may have falsely decreased Troponin levels. Performed By: #### L AB103, EWW100, LAB17, [id number], TPI095 ####Prune Washer: SHERRIE BRANNON ([phone])[facility] ([facility] [facility] [place] [address] TSH Qnon 02-28-2024 Interpretation and review of laboratory results Normal [facility] Troponin I.cardiac [Mass/Vol ]on 02-28-2024 Interpretation and review of laboratory results Normal [facility] Patients with high levels of Biotin oral intake (ie >5 mg/day) may have falsely decreased Troponin levels. [facility] Patients with high levels of Biotin oral intake (ie >5 mg/day) may have falsely decreased Troponin levels. [facility] Vital signson 02-28-2024 Heart rate 120 /min bpm [facility] Heart rate 110 /min bpm [facility] XR Chest Single viewon 02-27 Radiology Study observation (narrative) [facility] Normal chest x-ray. Report Dictated on Electronically Signed By: Salvatore Terry MD Electronically Signed Date/Time: 02/28/2024 6:11 PM EDT [facility] Patient Name: AMIE BRAXTON : 1995 Exam Date/Time: 02/28/2024 18:14 Procedure: XR CHEST 1 VIEW Ordering Provider: DORANTES TARAS Reason For Exam: CHEST PAIN AP CHEST X-RAY CLINICAL INDICATION: CHEST PAIN TECHNIQUE: AP portable x-ray of the chest. COMPARISON: None FINDINGS: Heart/Mediastinum: Within normal limits Lungs: No consolidation or pleural effusion. Bones: Unremarkable [facility] Salvatore Terry M D - 02/28/2024 Patient Name: AMIE BRAXTON : 1995 Exam Date/Time: 02/28/2024 18:14 Procedure: XR CHEST 1 VIEW Ordering Provider: DORANTES TARAS Reason For Exam: CHEST PAIN AP CHEST X-RAY CLINICAL INDICATION: CHEST PAIN TECHNIQUE: AP portable x-ray of the chest. COMPARISON: None FINDINGS: Heart/Mediastinum: Within normal limits Lungs: No consolidation or pleural effusion. Bones: Unremarkable IMPRESSION: Normal chest x-ray. Report Dictated on Electronically Signed By: Salvatore Terry MD Electronically Signed Date/Time: 02/28/2024 6:11 PM EDT [facility] XR Chest Single viewOrdered By: Salvatore Terry on 02-28-2024 [facility] [employer] Work Phone: CBC W Auto Differential pane l (Bld)on 02-16-2024 Basophils (Bld) [#/Vol] 0.05 10*3/uL [facility] Basophils/100 WBC (Bld) 1.1 % [facility] Differential cell count method Nom (Bld) Auto [facility] Eosinophils (Bld) [#/Vol] 0.10 10*3/uL [facility] Eosinophils/100 WBC (Bld) 2.1 % [facility] Erythrocyte distribution width (RBC) [Ratio] 13.2 % 11.5 - 15.0 % [facility] Hematocrit (Bld) [Volume fraction] 46.0 % 36.0 - 46.0 % [facility] Hemoglobin (Bld) [Mass/Vol] 15.3 g/dL 11.5 - 15.5 g/dL [facility] Immature granulocytes (Bld) [#/Vol] 0.03 10*3/uL [facility] Immature granulocytes/100 WBC (Bld) 0.6 % [facility] Lymphocytes (Bld) [#/Vol] 1.41 10*3/uL [facility] Lymphocytes/100 WBC (Bld) 30.1 % [facility] MCH (RBC) [Entitic mass] 30.1 pg 26.0 - 34.0 pg [facility] MCHC (RBC) [Mass/Vol] 33.3 g/dL 30.5 - 36.0 g/dL [facility] MCV (RBC) [Entitic vol] 90.6 fL 80.0 - 100.0 fL [facility] Monocytes (Bld) [#/Vol] 0.39 10*3/uL [facility] Monocytes/100 WBC (Bld) 8.3 % [facility] Neutrophils (Bld) [#/Vol] 2.70 10*3/uL [facility] Neutrophils/100 WBC (Bld) 57.8 % [facility] Nucleated RBC (Bld) [#/Vol] [facility] Nucleated RBC/100 WBC (Bld) [Ratio] 0.0 % /100 WBC [facility] Platelet mean volume (Bld) [Entitic vol] 10.9 fL 9.0 - 12.7 fL [facility] Platelets (Bld) [#/Vol] 331 10*3/uL [facility] RBC (Bld) [#/Vol] 5.08 10*6/uL 3.90 - 5.2 0 m/uL [facility] WBC (Bld) [#/Vol] 4.68 10*3/uL [facility] Office Visiton 01-17-2024 Follow-up visit [id number] Rogelio Braxton 1995 F Date Provider Department Center 01/17/2024 [id number] None No family history on file Level of Service:59054 [place] OFFICE/OUTPATIENT ESTABLISHED LOW MDM 20 MIN Reason for Visit and Comments: Dizziness [[id number]] Normal [facility] Progress Noteon 01-17-2024 Progress Note Pt identified by first/last name & . Since Tuesday patient has had a COLLINS, dizziness, brain fog. Since Tuesday it has gotten worse. Normal [facility] Progress Note [facility] [facility] [address] Dept: [phone] Dept Loc: [phone] Subjective Amie Braxton is a 28 y.o. year old female who presents to the office with the following complaint(s): Chief Complaint Patient presents with Dizziness HPI 28-year-old female presents due to dizziness x 3 days. Patient denies vision changes. Review of Systems Constitutional: Negative for fever. Eyes: Negative for visual disturbance. Respiratory: Negative for cough and shortness of breath. Cardiovascular: Negative for chest pain. Neurological: Negative for dizziness, light-headedness and headaches. All other systems reviewed and are negative. Allergies Allergen Reactions Valier Oil Other reaction(s): Other (See Comments), Other (See Comments) Asthma exacerbation Asthma exacerbation Beef Allergy Hives Cvs Digestive Probiotic [Lactase-Lactobacillus] Hives Egg-Derived Products Hives Food allergy Lactose Other reaction(s): Unknown Allergy to all dairy Milk-Related Compounds Dairy. Emesis, upset stomach Nitrofurantoin Other reaction(s): Other (See Comments), Other (See Comments), Unknown Migraines, upset stomach Migraines, upset stomach Migraines, upset stomach Migraine and light headed Migraine and light headed Migraines, upset stomach Peanut Allergen Powder-Dnfp Hives Peanut-Containing Drug Products Asthma, emesis Pineapple Hives and Swelling Soy Allergy Other reaction(s): GI Intolerance, GI Intolerance, GI Upset, Unknown Soybean-Containing Drug Products Soy, Migraines and upset stomach Vancomycin Hives Past Medical History: Diagnosis Date Exercise-induced asthma IC (interstitial cystitis) Multiple food allergies Past Surgical History: Procedure Laterality Date TONSILLECTOMY No family history on file. Social History Socioeconomic History Marital status: Single Tobacco Use Smoking status: Never Current Outpatient Medications on File Prior to Visit Medication Sig Dispense Refill albuterol 0.63 MG/3ML nebulizer solution Inhale 1 ampule. albuterol 108 (90 Base) MCG/ACT inhaler Inhale 1 puff every 6 hours as needed. [DISCONTINUED] doxycycline (Vibramycin) 100 MG capsule Take 100 mg by mouth in the morning and 100 mg in the evening. [DISCONTINUED] famotidine (Pepcid) 20 MG tablet Take 1 tablet by mouth in the morning and at bedtime. [DISCONTINUED] bvwybigw-bepptvqsn-rqeAP ETHasone (Maxitrol) 0.1 % ophthalmic suspension 1 drop in the morning and 1 drop at noon and 1 drop in the evening and 1 drop before bedtime. [DISCONTINUED] omeprazole (PriLOSEC) [address] capsule Take 20 mg by mouth. [DISCONTINUED] ondansetron ODT (Zofran-ODT) 4 MG disintegrating tablet Take 4 mg by mouth every 8 hours as needed. [DISCONTINUED] pentosan polysulfate (Elmiron) 100 MG capsule Take 100 mg by mouth. [DISCONTINUED] polyethylene glycol, PEG, 3350 (Glycolax) 17 GM/SCOOP powder Take 17 g by mouth in the morning. [DISCONTINUED] Probiotic Product (Align) capsule Take 4 mg by mouth in the morning. [DISCONTINUED] Sulfamethoxazole-Trimeth oprim (SULFAMETHOXAZOLE-TMP DS PO) Take by mouth Dosage not listed on bottle, Pt is taking 1 tab BID x 10 days. No current facility-administered medications on file prior to visit. Objective BP 107/61 Pulse 83 Temp 36.6 ?C (97.9 ?F) Ht 5' (1.524 m) Wt 105 lb (47.6 kg) SpO2 100% BMI 20.51 kg/m? Assessment: Physical Exam Vitals reviewed. HENT: Right Ear: External ear normal. Left Ear: External ear normal. Ears: Comments: Right ear canal mildly erythematic with cyr-colored TM Left ear canal grossly erythematic with bulging TM Nose: Nose normal. Mouth/Throat: Mouth: Mucous membranes are moist. Pharynx: Oropharynx is clear. Cardiovascular: Rate and Rhythm: Normal rate and regular rhythm. Pulses: Normal pulses. Heart sounds: Normal heart sounds. Pulmonary: Effort: Pulmonary effort is normal. Breath sounds: Normal breath sounds. Skin: General: Skin is warm and dry. Capillary Refill: Capillary refill takes less than 2 seconds. Neurological: General: No focal deficit present. Mental Status: She is alert and oriented to person, place, and time. 1. Acute suppurative otitis media of left ear without spontaneous rupture of tympanic membrane, recurrence not specified HPI and assessment findings. Patient notified of current assessment findings. Neurological status is intact. Patient notified that reason for dizziness is due to current bacterial pathology of bilateral ears; left more than right. Patient is agreeable to medication as directed; potential side effects provided. Patient denies chance of current . Patient will complete antibiotic start to finish as advised. Referral to family medicine also placed. Amie was seen today for dizziness. Diagnoses and (more content not included)... Normal [facility]S BLADDER SCANon 11-08-2023 PVR 68mL Chase Corral MA [facility] UA DIP, URINE (POC)on 2023 BILIRUBIN UA (POCT) Negative Negative [facility] CLARITY UA (POCT) Clear [facility] COLOR UA (POCT) Yellow [facility] GLUCOSE UA (POCT) Negative Negative mg/dL [facility] Hemoglobin Ql (U) Negative Negative [facility] Interpretation and review of laboratory results Abnormal [facility] KETONE UA (POCT) Negative Negative mg/dL [facility] LEUKOCYTES UA (POCT) Small Abnormal Negative [facility] NITRITE UA (POCT) Negative [facility]A (POCT) 7.0 4.5 - 8.0 [facility] Protein Ql (U) Negative Negative mg/dL [facility] SPECIFIC GRAVITY UA (POCT) 1.015 1.005 - 1.030 [facility] UROBILINOGEN UA (POCT) 0.2 Carol l E.U./dL [facility] Location:[facility], [address] [place] [address], [address] [place] [address] POINT OF CARE [facility] Laboratory - Microbiology an d Antimicrobial susceptibilityOrdered By: Ayaka Castellanos on 10-11-2023 Mycoplasma sp identified Org specific cx Nom (Unsp spec) Negative Negative for Ureaplasma [facility] Mycoplasma sp identified Org specific cx Nom (Unsp spec)Ordered By: Ayaka Csatellanos on 10-11-2023 Interpretation and review of laboratory results Normal [facility] BACTERIAL VAGINOSIS NAATon 0 10-08-2023 Interpretation and review of laboratory results Normal [facility] Lactobacillus crispatus+gasseri+polina enii + Gardnerella vaginalis + Atopobium vaginae rRNA ZULEMA+probe Ql (Vag fld) Negative Negative for bacterial vaginosis [facility] UA DIP, URINE (POC)on 2023 BILIRUBIN UA (POCT) Negative Negative [facility] CLARITY UA (POCT) Clear [facility] COLOR UA (POCT) Yellow [facility] GLUCOSE UA (POCT) Negative Negative mg/dL [facility] Hemoglobin Ql (U) Trace-intact Abnormal Negative [facility] Interpretation and review of laboratory results Abnormal [facility] KETONE UA (POCT) Negative Negative mg/dL [facility] LEUKOCYTES UA (POCT) Trace Abnormal Negative [facility] NITRITE UA (POCT) Negative Negative [facility] PH UA (POCT) 6.5 4.5 - 8.0 [facility] Protein Ql (U) Negative Negative mg/dL [facility] SPECIFIC GRAVITY UA (POCT) 1.020 1.005 - 1.030 [facility] UROBILINOGEN UA (POCT) 0.2 Carol l E.U./dL [facility] Location:[facility], [address] [place] [address], [address] POINT OF CARE [facility] BACTERIAL VAGINOSIS NAATon 0 08-11-2023 Lactobacillus crispatus+gasseri+polina enii + Gardnerella vaginalis + Atopobium vaginae rRNA ZULEMA+probe Ql (Vag fld) Negative Negative for bacterial vaginosis [facility] Bacteria identified Cx Nom ( U)on 06-25-2023 [facility] Urine cultureon 06-25-2023 Bacteria identified Cx Nom (U) SEE NOTE [facility] Comment on above: CULTURE, URINE, ROUTINE Micro Number: [id number] Test Status: Final Specimen Source: Not given Specimen Quality: Adequate Result: No Growth No Panel Informationon 06-23 Bil[facility], [facility]A [facility], [facility] Trace-Lysed [facility] Glucose, UA 100 [facility] Interpretation and review of laboratory results Abnormal [facility] Interpretation and review of laboratory results Normal [facility] Ketones, UA (mg/dL) Negative Negative mg/dL [facility] Leukocytes, UA Small [facility] Nitrite, UA Positive [facility] pH, UA 7.0 [facility] Preg Test, Ur Negative [facility] Protein, UA Negative [facility] Spec Grav, UA 1.005 [facility] Urob[facility]ogen, UA 0.2 [facility] alth [facility] Office Visiton 06-23-2023 Follow-up visit [id number] Rogelio Braxton 1995 F Date Provider Department Center 06/23/2023 KIMI VELEZ [facility] None No family history on file Level of Service:64593 [place] OFFICE/OUTPATIENT ESTABLISHED MOD MDM 30-39 MIN Reason for Visit and Comments: UTI [[id number]] - UTI since today. Pt is experiencing pain, pressure, burning. Pt has headaches and is feeling nauseous. No other symptoms. No concerns for STD's Normal [facility] PATINSon 06-23-2023 PATINS You are will want to increase your water intake to help flush the bacteria from your bladder. Make sure to finish all your antibiotic even if your symptoms are completely gone. We will send out a urine culture and if the bacteria is resist to the antibiotics that was prescribed to you today, we will change them at that time. 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 Normal [facility] Progress Noteon 06-23-2023 Progress Note [facility] [address] [facility] [address] Dept: [phone] Dept Loc: [phone] Subjective Amie Braxton is a 27 y.o. year old who presents to the office with the following complaint(s): Chief Complaint Patient presents with UTI UTI since today. Pt is experiencing pain, pressure, burning. Pt has headaches and is feeling nauseous. No other symptoms. No concerns for STD's Subjective HPI: Here for possible UTI Sxs for 1 days + freq + urg + dysuria - hematuria No vaginal complaints: itch, discharge, bleeding LMP: 06/10/2023 No abd pain No back/flank pain No fever No chills No rash + h/o UTI Non-DM Increase water intake and AZO Review of Systems Constitutional: Negative for chills and fever. Gastrointestinal: Negative for abdominal pain, nausea and vomiting. Genitourinary: Positive for dysuria, frequency and urgency. Negative for flank pain, hematuria, vaginal bleeding, vaginal discharge and vaginal pain. Musculoskeletal: Negative for back pain. Allergies Allergen Reactions Valier Oil Other reaction(s): Other (See Comments), Other (See Comments) Asthma exacerbation Asthma exacerbation Beef Allergy Hives Cvs Digestive Probiotic [Lactase-Lactobacillus] Hives Eggs Or Egg-Derived Products Hives Food allergy Lactose Other reaction(s): Unknown Allergy to all dairy Milk-Related Compounds Dairy. Emesis, upset stomach Nitrofurantoin Other reaction(s): Other (See Comments), Other (See Comments), Unknown Migraines, upset stomach Migraines, upset stomach Migraines, upset stomach Migraine and light headed Migraine and light headed Migraines, upset stomach Peanut Allergen Powder-Dnfp Hives Peanut-Containing Drug Products Asthma, emesis Pineapple Hives and Swelling Soy Allergy Other reaction(s): GI Intolerance, GI Intolerance, GI Upset, Unknown Soybean-Containing Drug Products Soy, Migraines and upset stomach Vancomycin Hives Current Outpatient Medications on File Prior to Visit Medication Sig Dispense Refill albuterol 0.63 MG/3ML nebulizer solution Inhale 1 ampule. albuterol 108 (90 Base) MCG/ACT inhaler Inhale 1 puff every 6 hours as needed. doxycycline (Vibramycin) 100 MG capsule Take 100 mg by mouth in the morning and 100 mg in the evening. famotidine (Pepcid) 20 MG tablet Take 1 tablet by mouth in the morning and at bedtime. dxyepyxa-arylywyla-wmvYC ETHasone (Maxitrol) 0.1 % ophthalmic suspension 1 drop in the morning and 1 drop at noon and 1 drop in the evening and 1 drop before bedtime. omeprazole (PriLOSEC) [address] capsule Take 20 mg by mouth. ondansetron ODT (Zofran-ODT) 4 MG disintegrating tablet Take 4 mg by mouth every 8 hours as needed. pentosan polysulfate (Elmiron) 100 MG capsule Take 100 mg by mouth. polyethylene glycol, PEG, 3350 (Glycolax) 17 GM/SCOOP powder Take 17 g by mouth in the morning. Probiotic Product (Align) capsule Take 4 mg by mouth in the morning. Sulfamethoxazole-Trimeth oprim (SULFAMETHOXAZOLE-TMP DS PO) Take by mouth Dosage not listed on bottle, Pt is taking 1 tab BID x 10 days. No current facility-administered medications on file prior to visit. Patient Active Problem List Diagnosis Upper abdominal pain Nausea and vomiting Social History Tobacco Use Smoking status: Never Smokeless tobacco: Not on file Substance Use Topics Alcohol use: Not on file Objective Objective BP 110/82 (BP Location: Left arm, Patient Position: Sitting) Pulse 80 Temp 36.4 ?C (97.5 ?F) Ht 5' (1.524 m) Wt 100 lb (45.4 kg) SpO2 99% BMI 19.53 kg/m? Physical Exam Vitals and nursing note reviewed. Constitutional: General: She is awake. She is not in acute distress. Appearance: Normal appearance. She is not ill-appearing, toxic-appearing or diaphoretic. HENT: Head: Normocephalic and atraumatic. Eyes: Conjunctiva/sclera: Conjunctivae normal. Pulmonary: Effort: Pulmonary effort is normal. Abdominal: Tenderness: There is no right CVA tenderness or left CVA tenderness. Musculoskeletal: General: Normal range of motion. Cervical back: Normal range of motion and neck supple. Skin: General: Skin is warm. Neurological: General: No focal deficit present. Mental Status: She is alert and oriented to person, place, and time. Psychiatric: Mood and Affect: Mood normal. Behavior: Behavior is cooperative. Assessment/Plan 1. Dysuria - cephalexin (Keflex) 500 MG capsule; Take 1 capsule (500 mg) by mouth 2 times daily for 7 days., Starting Angie 06/23/2023, Until Angie 06/30/2023, Normal - AMB POC URINALYSIS DIP STICK AUTO W/O MICRO - Urine culture - AMB POC URINE TEST Plan of care for this patient is to treat for UTI. Patient will be given script for Keflex. It was discussed with patient that UA in clinic abnormal d/t Azo but we will get her st (more content not included)... Normal [facility] CARDIOLOGY REPORTon 05-06-20 23 Todd Medeiros MD - 05/06/2023 9:07 AM EDT [facility] - Tilt Table Test AMIE BRAXTON : 1995 AGE: 27 SEX: F CSN: [id number] [facility] SVC: LOCATION: ATTENDING PHYSICIAN: TILT TABLE TEST DATE OF SERVICE: 05/05/2023 REFERRING PHYSICIAN: As noted. REASON FOR PROCEDURE: Near syncope. DEMOGRAPHICS: A 27-year-old female with a near syncopal episode. The patient was referred for tilt table study. Please see the history and physical for details. PROCEDURE: The procedure, risks, and benefits were explained in detail. Consent was obtained. The patient underwent standard 80-degree head up tilt table study. The patient tolerated the procedure well. No complications. FINDINGS: The baseline ECG showed sinus rhythm rate of [address] segment changes, otherwise unremarkable. The patient underwent standard 90-degree head up tilt table study, as described above. 1. The test is negative for orthostatic hypotension. 2. The test is negative for vasomotor/neurocardiogen ic syncope. 3. The test is negative for cardiac dysrhythmias. 4. Nitroglycerin challenge was not performed. 5. Carotid massage was not performed. IMPRESSION: Negative study. Todd Medeiros MD /[id number] SSI File#: [id number] CC: Dr. Guerrero [facility] NITRIC OXIDE, EXHALEDon 11-08 [facility] HCG QUAL UR B/Oon 10-07-2022 status Negative neg - pos [facility] Quality Check Yes [facility] COVID Quick Testingon 2021 Result Negative iwi Other Quick Strepon 01-20-2022 S. pyogenes Org specific cx Ql (Throat) Negative iwi Other Quick Strep iwi Other COVID-19, MOLECULARon 2021 SARS-CoV-2 (COVID-19) Ab IA Ql Detected Abnormal Not Detected [facility] Comment on above: Result Comment: This test was performed under the FDA's Emergency Use Authorization (EUA). Testing was performed using the [employer] ID NOW COVID-19 assay on the ID NOW platform. This test has not been approved for use in asymptomatic patients and its performance in this patient population has not been evaluated. Negative results do not rule out the presence of SARS-CoV-2/COVID-19. Fact sheets for the EUA can be found at the following links: For Healthcare Providers: https://www.fda.gov/media/400189/download For Patients: https://www.fda.gov/media/696784/download FOLATE SERUMon 10-13-2021 Folate [Mass/Vol] ng/mL >4.7 ng/mL [facility] VITAMIN B12 BLOODon 10-14-19 Cobalamin (Vitamin B12) [Mass/Vol] 517 pg/mL 232-1,245 pg/mL [facility] Miscellaneous Referred Testo n 10-14-2020 Result 1: SEE BELOW Normal [facility] Comment on above: Order Comment: fecal calprotectin Result Comment: Calp rotectin, Fecal by Immunoassay Calprotectin, Fecal <5 ug/g (Ref Interval: <=49) REFERENCE INTERVAL: Calprotectin, Fecal by Immunoassay Less than 50 ug/g.........Normal 50-120 ug/g...............Borderline elevated, test should be re-evaluated in 4-6 weeks. 121 ug/g or greater.......Elevated Performed By: #### M SO #### MSO GENERIC SENDOUT #### HPYAG #### [facility] [address] [place] [address] Surgical Pathologyon 021 Surgical Pathology [id number] [facility] PATHOLOGY AND LABORATORY MEDICINE [address] [place] [id number] FINAL SURGICAL PATHOLOGY REPORT NAME: AMIE BRAXTON : 1995 25 Y F BILLING NO.: [id number] LOCATION: 1XEO PROCEDURE 10/13/2020 DATE: SURGEON: SAILAJA ZHANG MD RECEIVED 10/14/2020 DATE: ATTENDING: SAILAJA ZHANG MD REPORT DATE: 10/15/2020 COPIES TO: DIAGNOSIS: A. SMALL INTESTINE, BIOPSY - SMALL BOWEL MUCOSA WITH NO SIGNIFICANT HISTOPATHOLOGIC CHANGES Comment: The villous architecture is normal, and there is no significant intraepithelial lymphocytosis or crypt hyperplasia. B. STOMACH, BIOPSY - MILD CHRONIC INACTIVE GASTRITIS Comment: Evaluation of the H&E-stained sections shows no evidence of Helicobacter pylori or any morphologic features to suggest infection with the organism; as such, further studies for Helicobacter are not indicated. There is no evidence of intestinal metaplasia, dysplasia or malignancy. CRH/CRH Signature> SHERRIE BRANNON M.D. CLINICAL INFORMATION: Screening SPECIMEN: (A) SMALL INTESTINE, BIOPSY (B) GASTRIC BIOPSY GROSS DESCRIPTION: A. Received in formalin labeled small intestine are two segments of akbar tissue 0.4 cm each. Specimen is entirely submitted in a single cassette. B. Received in formalin labeled gastric are two segments of akbar tissue 0.3 cm each. Specimen is entirely submitted in a single cassette. JCK/JAF Disclaimer: The following statement applies to all immunohistochemistry, in situ hybridization, molecular studies, and immunofluorescence testing. The use of one or more reagents in the above tests is regulated as an analyte specific reagent (ASR). These tests were developed and their performance characteristics determined by the clinical laboratories of [facility]. They have not been cleared by the US Food and Drug Administration (FDA). The FDA has determined that such clearance or approval is not necessary. All the above immunostains were performed on paraffin embedded tissue. Appropriate positive and negative controls (where applicable) were run in parallel with the patient's specimen; these controls showed expected staining pattern, with acceptable intensity of staining. Immunohistochemical assays have not been validated on decalcified tissues. Results should be interpreted with caution given the raised possibility of false negativity on decalcified specimens. Professional Performing Location: [address] [address]. DEPARTMENT OF PATHOLOGY AND LABORATORY MEDICINE [place], [place] [address] [email or web address] Normal [facility] TTG, IgAon 10-11-2020 TTG, IgA < 2 Normal 0-3 [facility] Comment on above: Result Comment: INTE RPRETIVE INFORMATION: Tissue Transglutaminase (tTG) Antibody, IgA 3 U/mL or less: Negative 4-10 U/mL: Weak Positive 11 U/mL or greater: Positive Presence of the tissue transglutaminase (tTG) IgA antibody is associated with glutensensitive enteropathies such as celiac disease and dermatitis herpetiformis. tTG IgA antibody concentrations greater than 40 U/mL usually correlate with results of duodenal biopsies consistent with a diagnosis of celiac disease. For antibody concentrations greater or equal to 4 U/mL but less than or equal to 40 U/mL, additional testing for endomysial (MARIS) IgA concentrations may improve the positive predictive value for disease. Performed By: [facility] [address] [place] [id number] Wheel Blocker: Cici Boyer MD Performed By: #### T TGA2 #### The performing lab is in the report. #### IGA #### [address] [address] H. PYLORI STOOL ANTIGEN (EIA )on 10-10-2020 H. PYLORI STOOL ANTIGEN (EIA) H. PYLORI STOOL ANTIGEN (EIA) --> Status: F Positive. H. pylori stool antigen detected. Abnormal [facility] Comment on above: Order Comment: fecal calprotectin Performed By: #### M SO #### MSO GENERIC SENDOUT #### HPYAG #### [address] [address] H. pylori antigenon 10-11-19 21 H Pylori Ag, Stool Positive Abnormal [facility] Work Phone: Interpretation and review of laboratory results Abnormal [facility] Work Phone: Test Performed by [facility], [address] [place] [id number] fecal calprotectin [facility] Work Phone: Miscellaneous Referred Testo n 10-10-2020 Performed By: see below Normal [facility] Comment on above: Order Comment: fecal calprotectin Result Comment: [employer] [place], [place] Performed By: #### M SO #### MSO GENERIC SENDOUT #### HPYAG #### [address] [address] Test Name fecal calprotec Normal [facility] Comment on above: Order Comment: fecal calprotectin Performed By: #### M SO #### MSO GENERIC SENDOUT #### HPYAG #### [address] [address] IgA,Bloodon 10-09-2020 IgA,Blood 105.8 mg/dL Normal 70.0-400.0 [facility] Comment on above: Performed By: #### T TGA2 #### The performing lab is in the report. #### IGA #### [address] [address] IgAon 10-08-2020 IgA [Mass/Vol] 105.8 mg/dL 70.0 - 400.0 mg/dL [facility] Work Phone: Test Performed by [facility], [address] [place] [id number] [place] [address] Work Phone: CT ABDOMEN PELVIS W WO CONTR Chris 09-11-2020 [facility] From [facility] - 09/11/2020 6:22 PM EST Patient Name: AMIE BRAXTON Computed Tomography ACCESSION EXAM DATE/TIME PROCEDURE ORDERING PROVIDER [id number] 09/11/2020 17:[address] Abdomen/Pelvis w/ [id number] -ADELINA, FRANCESCA + w/o Contrast CPT code 99699 Q9967 Reason For Exam (CT Abdomen/Pelvis w/ + w/o Contrast) RUQ PAIN, TTP R/O RENAL MASS, F/U US ABD Report CLINICAL HISTORY: RUQ PAIN, TTP R/O RENAL MASS, F/U US ABD COMPARISON: Abdominal ultrasound from earlier today Technique: [address] images were obtained of the abdomen and pelvis before and after the uneventful IV administration of 75 mL of Isovue-370. Images were reformatted in coronal and sagittal projections. Findings: Abdomen: Lung bases: Clear Kidneys: There are no obstructing renal calculi. No suspicious enhancing renal masses are seen. No filling defects are present within the renal collecting system. Other major organs: The liver, pancreas, gallbladder, spleen, and adrenal glands are normal. Bowel: The bowel is of normal caliber throughout without evidence of wall thickening or obstruction. The appendix is normal. There is a moderate stool burden in the colon. Lymph nodes and mesentery: There are no enlarged lymph nodes. Minimal pelvic free fluid is seen. The mesentery is normal and there is no free air. Abdominal aorta: Abdominal aorta and its visceral branches are grossly patent without aneurysmal dilatation. Pelvic organs: Borderline enlarged ovaries bilaterally. Soft tissues and Osseous structures: Right L5 pars defect is seen. No suspicious osseous lesions identified. No significant degenerative changes of the lumbar spine. Computed Tomography Report IMPRESSION: 1. No renal mass or hydronephrosis. 2. Moderate stool burden suggestive of constipation. 3. Borderline enlarged ovaries bilaterally with minimal pelvic free fluid, likely physiologic. Report Dictated on --- Final --- Dictated: 09/11/2020 6:11 pm Dictating Physician: MD MELTON JAMES Signed Date and Time: 09/11/2020 6:21 pm Signed by: MD MELTON JAMES Transcribed Date and Time: 09/11/2020 6:11 [facility] Work Phone: [id number] Computed Tomography ACCESSION EXAM DATE/TIME PROCEDURE ORDERING PROVIDER [id number] 09/11/2020 17:[address] Abdomen/Pelvis w/ [id number] -ADELINA, FRANCESCA + w/o Contrast CPT code 36095 Q9967 Reason For Exam (CT Abdomen/Pelvis w/ + w/o Contrast) RUQ PAIN, TTP R/O RENAL MASS, F/U US ABD Report CLINICAL HISTORY: RUQ PAIN, TTP R/O RENAL MASS, F/U US ABD COMPARISON: Abdominal ultrasound from earlier today Technique: [address] images were obtained of the abdomen and pelvis before and after the uneventful IV administration of 75 mL of Isovue-370. Images were reformatted in coronal and sagittal projections. Findings: Abdomen: Lung bases: Clear Kidneys: There are no obstructing renal calculi. No suspicious enhancing renal masses are seen. No filling defects are present within the renal collecting system. Other major organs: The liver, pancreas, gallbladder, spleen, and adrenal glands are normal. Bowel: The bowel is of normal caliber throughout without evidence of wall thickening or obstruction. The appendix is normal. There is a moderate stool burden in the colon. Lymph nodes and mesentery: There are no enlarged lymph nodes. Minimal pelvic free fluid is seen. The mesentery is normal and there is no free air. Abdominal aorta: Abdominal aorta and its visceral branches are grossly patent without aneurysmal dilatation. Pelvic organs: Borderline enlarged ovaries bilaterally. Soft tissues and Osseous structures: Right L5 pars defect is seen. No suspicious osseous lesions identified. No significant degenerative changes of the lumbar spine. Computed Tomography Report IMPRESSION: 1. No renal mass or hydronephrosis. 2. Moderate stool burden suggestive of constipation. 3. Borderline enlarged ovaries bilaterally with minimal pelvic free fluid, likely physiologic. Report Dictated on --- Final --- Dictated: 09/11/2020 6:11 pm Dictating Physician: MD MELTON JAMES Signed Date and Time: 09/11/2020 6:21 pm Signed by: MD MELTON JAMES Transcribed Date and Time: 09/11/2020 6:11 [facility] Work Phone: CT Abdomen/Pelvis w/ + w/o C [facility] 09-11-2020 CT Abdomen/Pelvis w/ + w/o Contrast Patient [facility]: [id number] Computed Tomography ACCESSION EXAM DATE/TIME PROCEDURE ORDERING PROVIDER [id number] 09/11/2020 17:[address] Abdomen/Pelvis w/ [id number] -ADELINA, FRANCESCA + w/o Contrast CPT code 60545 Q9967 Reason For Exam (CT Abdomen/Pelvis w/ + w/o Contrast) RUQ PAIN, TTP R/O RENAL MASS, F/U US ABD Report CLINICAL HISTORY: RUQ PAIN, TTP R/O RENAL MASS, F/U US ABD COMPARISON: Abdominal ultrasound from earlier today Technique: [address] images were obtained of the abdomen and pelvis before and after the uneventful IV administration of 75 mL of Isovue-370. Images were reformatted in coronal and sagittal projections. Findings: Abdomen: Lung bases: Clear Kidneys: There are no obstructing renal calculi. No suspicious enhancing renal masses are seen. No filling defects are present within the renal collecting system. Other major organs: The liver, pancreas, gallbladder, spleen, and adrenal glands are normal. Bowel: The bowel is of normal caliber throughout without evidence of wall thickening or obstruction. The appendix is normal. There is a moderate stool burden in the colon. Lymph nodes and mesentery: There are no enlarged lymph nodes. Minimal pelvic free fluid is seen. The mesentery is normal and there is no free air. Abdominal aorta: Abdominal aorta and its visceral branches are grossly patent without aneurysmal dilatation. Pelvic organs: Borderline enlarged ovaries bilaterally. Soft tissues and Osseous structures: Right L5 pars defect is seen. No suspicious osseous lesions identified. No significant degenerative changes of the lumbar spine. Computed Tomography Report IMPRESSION: 1. No renal mass or hydronephrosis. 2. Moderate stool burden suggestive of constipation. 3. Borderline enlarged ovaries bilaterally with minimal pelvic free fluid, likely physiologic. Report Dictated on Final Dictated: 09/11/2020 6:11 pm Dictating Physician: MD MELTON JAMES Signed Date and Time: 09/11/2020 6:21 pm Signed by: MD MELTON JAMES Transcribed Date and Time: 09/11/2020 6:11 Normal [facility] Comp Metabolic Panelon 09-11 ALP [Catalytic activity/Vol] 38 U/L Normal 38-126 [facility] Comment on above: Performed By: #### L IPA4, HEMOG, CMP3 #### [facility] [address] [place] [address] ALT [Catalytic activity/Vol] 14 U/L Normal 0-34 [facility] Comment on above: Result Comment: The ALT test is performed by an updated assay method. Please note that the reference intervals have been changed and are now sex specific. Performed By: #### L IPA4, HEMOG, CMP3 #### [facility] [address] [place] [address] Calcium [Mass/Vol] 8.8 mg/dL Normal 8.4-10.4 [facility] Comment on above: Performed By: #### L IPA4, HEMOG, CMP3 #### [facility] [address] [place] [address] Glucose [Mass/Vol] 93 mg/dL Normal 70-100 [facility] Comment on above: Performed By: #### L IPA4, HEMOG, CMP3 #### [facility] [address] [place] [address] Urea nitrogen [Mass/Vol] 6 mg/dL Low 7-20 [facility] Comment on above: Performed By: #### L IPA4, HEMOG, CMP3 #### [facility] [address] [place] [address] Anion gap [Moles/Vol] 3 mmol/L Normal 3-13 [facility] Comment on above: Performed By: #### L IPA4, HEMOG, CMP3 #### [facility] [address] [place] [address] AST [Catalytic activity/Vol] 21 U/L Normal 15-46 [facility] Comment on above: Performed By: #### L IPA4, HEMOG, CMP3 #### [facility] [address] [place] [address] Bilirubin [Mass/Vol] 0.6 mg/dL Normal 0.2-1.3 [facility] Comment on above: Performed By: #### L IPA4, HEMOG, CMP3 #### [facility] [address] [place] [address] CO2 [Moles/Vol] 30 mmol/L Normal 22-30 [facility] Comment on above: Performed By: #### L IPA4, HEMOG, CMP3 #### [facility] [address] [place] [address] Creatinine [Mass/Vol] 0.71 mg/dL Normal 0.52-1.25 [facility] Comment on above: Performed By: #### L IPA4, HEMOG, CMP3 #### [facility] [address] [place] [address] GFR/1.73 sq M predicted among blacks MDRD (S/P/Bld) [Vol rate/Area] mL/min/{1.73_m2} Normal >60 [facility] Comment on above: Performed By: #### L KYLER HAGEN CMP3 #### [facility] [address] [place] [address] GFR/1.73 sq M predicted among non-blacks MDRD (S/P/Bld) [Vol rate/Area] mL/min/{1.73_m2} Normal >60 [facility] Comment on above: Result Comment: KDIG O guidelines provide the following GFR categories: Stage GFR(ml/min/1.73 m2) Terms G1 >=90 Normal or high G2 60-89 Mildly decreased* G3a 45-59 Mildly to moderately decreased G3b 30-44 Moderately to severely decreased G4 15-29 Severely decreased G5 <15 Kidney failure *Relative to young adult level. In the absence of evidence of kidney damage, neither GFR category G1 nor G2 fulfill the criteria for CKD. The CKD-EPI equation is validated in individuals 18 years of age and older. Currently the best equation for estimating glomerular filtration rate (GFR) from serum creatinine in children is the Bedside Lau equation. It is less accurate in patients with extremes of muscle mass, restriction of dietary protein, ingestion of creatine, extra-renal metabolism of creatinine, or treatment with medications that affect renal tubular creatinine secretion. Performed By: #### L KYLER HAGEN CMP3 #### [facility] [address] [place] [address] Protein [Mass/Vol] 7.0 g/dL Normal 6.3-8.2 [facility] Comment on above: Performed By: #### L KYLER HAGEN CMP3 #### [facility] [address] [place] [address] Chloride [Moles/Vol] 106 mmol/L Normal 98-107 [facility] Comment on above: Performed By: #### L HIEU HEMOG, CMP3 #### [facility] [address] [place] [address] Potassium [Moles/Vol] 4.0 mmol/L Normal 3.5-5.1 [facility] Comment on above: Performed By: #### L IPA4, HEMOG, CMP3 #### [facility] [address] [place] [address] Sodium [Moles/Vol] 139 mmol/L Normal 135-145 [facility] Comment on above: Performed By: #### L IPA4, HEMOG, CMP3 #### [place] [address] [place] [address] Albumin [Mass/Vol] 4.5 g/dL Normal 3.5-5.0 [facility] Comment on above: Performed By: #### L IPA4, HEMOG, CMP3 #### [address] [place] [address] Complete Urinalysison 2020 Appearance (U) Clear Normal Clear [facility] Comment on above: Result Comment: . Performed By: #### M SO #### MSO GENERIC SENDOUT #### HPYAG #### [place] [address] [place], [place] Bilirubin,Urine Negative Normal Negative [facility] Comment on above: Result Comment: . Performed By: #### M SO #### MSO GENERIC SENDOUT #### HPYAG #### [address] Color (U) LIGHT YELLOW Normal Lt. Yellow [facility] Comment on above: Result Comment: . Performed By: #### M SO #### MSO GENERIC SENDOUT #### HPYAG #### [place] [address] [place], [place] Glucose Ql (U) Normal Normal Normal (<70) [facility] Comment on above: Result Comment: . Performed By: #### M SO #### MSO GENERIC SENDOUT #### HPYAG #### [place] [address] [place], [place] Ketone,Urine Negative Normal Negative [facility] Comment on above: Result Comment: . Performed By: #### M SO #### MSO GENERIC SENDOUT #### HPYAG #### [place] [address] [place], [place] Leukocytes,Urine Negative Normal Negative [facility] Comment on above: Result Comment: . Performed By: #### M SO #### MSO GENERIC SENDOUT #### HPYAG #### [place] [address] [place], [place] Nitrites,Urine Negative Normal Negative [facility] Comment on above: Result Comment: . Performed By: #### M SO #### MSO GENERIC SENDOUT #### HPYAG #### [place] [address] [place], [place] Occult Blood,Urine Negative Normal Negative [facility] Comment on above: Result Comment: . Performed By: #### M SO #### MSO GENERIC SENDOUT #### HPYAG #### [place] [address] [place], [place] pH (U) 8.0 Normal 5.0-8.0 [facility] Comment on above: Result Comment: . Performed By: #### M SO #### MSO GENERIC SENDOUT #### HPYAG #### [place] [address] [place], [place] Protein (U) [Mass/Vol] Negative Normal Negative [facility] Comment on above: Result Comment: . Performed By: #### M SO #### MSO GENERIC SENDOUT #### HPYAG #### [place] [address] [place], [place] Specific [place],Urine 1.014 Normal 1.005 - 1.030 [facility] Comment on above: Result Comment: . Performed By: #### M SO #### MSO GENERIC SENDOUT #### HPYAG #### [place] [address] [place], [place] Urobilinogen,Urine Normal Normal Normal (0-1) [facility] Comment on above: Result Comment: . Performed By: #### M SO #### MSO GENERIC SENDOUT #### HPYAG #### [facility] [address] [place] [phone] Comprehensive Metabolic Pane krishna 09-11-2020 Albumin [Mass/Vol] 4.5 g/dL 3.5 - 5 g/dL [facility] Work Phone: ALP [Catalytic activity/Vol] 38 U/L 38 - 126 U/L [facility] Work Phone: ALT [Catalytic activity/Vol] 14 U/L 0 - 34 U/L [facility] Work Phone: Comment on above: The ALT test is perf ormed by an updated assay method. Please note that the reference intervals have been changed and are now sex specific. Anion gap [Moles/Vol] 3 mmol/L 3 - 13 mmol/L [facility] Work Phone: AST [Catalytic activity/Vol] 21 U/L 15 - 46 U/L [facility] Work Phone: Bilirubin Ql (U) 0.6 mg/dL 0.2 - 1.3 mg/dL [facility] Work Phone: Calcium [Mass/Vol] 8.8 mg/dL 8.4 - 10. 4 mg/dL [facility] Work Phone: Chloride [Moles/Vol] 106 mmol/L 98 - 10 7 mmol/L [facility] Work Phone: CO2 [Moles/Vol] 30 mmol/L 22 - 30 mmol/L [facility] Work Phone: Creatinine [Mass/Vol] 0.71 mg/dL 0.52 - 1.25 mg/dL [facility] Work Phone: EGFR IF NonAfrican Trinidadian >90.0 >60 mL/min [facility] Work Phone: Comment on above: KDIGO guidelines pro vide the following GFR categories: Stage GFR(ml/min/1.73 m2) Terms G1 >=90 Normal or high G2 60-89 Mildly decreased* G3a 45-59 Mildly to moderately decreased G3b 30-44 Moderately to severely decreased G4 15-29 Severely decreased G5 <15 Kidney failure *Relative to young adult level. In the absence of evidence of kidney damage, neither GFR category G1 nor G2 fulfill the criteria for CKD. The CKD-EPI equation is validated in individuals 18 years of age and older. Currently the best equation for estimating glomerular filtration rate (GFR) from serum creatinine in children is the Bedside Lau equation. It is less accurate in patients with extremes of muscle mass, restriction of dietary protein, ingestion of creatine, extra-renal metabolism of creatinine, or treatment with medications that affect renal tubular creatinine secretion. GFR/1.73 sq M predicted among blacks MDRD (S/P/Bld) [Vol rate/Area] mL/min/{1.73_m2} >60 mL/min [facility] Work Phone: Glucose [Mass/Vol] 93 mg/dL 70 - 100 mg/dL [facility] Work Phone: Interpretation and review of laboratory results Abnormal [place] Phone: Potassium [Moles/Vol] 4.0 mmol/L 3.5 - 5.1 mmol/L [facility] Work Phone: Protein [Mass/Vol] 7.0 g/dL 6.3 - 8.2 g/dL [facility] Work Phone: Sodium [Moles/Vol] 139 mmol/L 135 - 145 mmol/L [facility] Phone: Urea nitrogen [Mass/Vol] 6 mg/dL Low 7 - 20 mg/dL [facility] Phone: HCG,Urine Qualon 09-11-2020 Beta HCG ( test) Ql (U) Negative Normal Negative [facility] Comment on above: Result Comment: Plea se note: Very dilute urine specimens, as indicated by a low specific gravity, may not contain collections representative levels of hCG. If is still suspected, a first morning urine specimen should be collected 48 hours later and tested. is the most common reason for HCG in urine, although choriocarcinoma, hydatidiform mole, and certain nontropho- blastic malignancies also result in detectable urinary HCG levels. Sensitivity = 20mIU/mL. Performed By: #### M SO #### MSO GENERIC SENDOUT #### HPYAG #### [facility] [address] [place] [phone] HGC Urine Qual [place] 2020 Beta HCG ( test) Ql (U) Negative Negative NA [facility] Work Phone: Comment on above: Please note: Very di lute urine specimens, as indicated by a low specific gravity, may not contain collections representative levels of hCG. If is still suspected, a first morning urine specimen should be collected 48 hours later and tested. is the most common reason for HCG in urine, although choriocarcinoma, hydatidiform mole, and certain nontropho- blastic malignancies also result in detectable urinary HCG levels. Sensitivity = 20mIU/mL. Hemogramon 09-11-2020 Erythrocyte distribution width (RBC) [Ratio] 13.1 % Normal 11.5-14.5 [facility] Comment on above: Performed By: #### L IPA4, HEMOG, CMP3 #### [facility] [address] [place] [address] Hematocrit (Bld) [Volume fraction] 45.1 % Normal 35.0-47.0 [facility] Comment on above: Performed By: #### L IPA4, HEMOG, CMP3 #### [facility] [address] [place] [address] Hemoglobin (Bld) [Mass/Vol] 15.0 g/dL Normal 11.7-16.0 [facility] Comment on above: Performed By: #### L IPA4, HEMOG, CMP3 #### [facility] [address] [place] [address] MCH (RBC) [Entitic mass] 30.0 pg Normal 26.0-34.0 [facility] Comment on above: Performed By: #### L IPA4, HEMOG, CMP3 #### [facility] [address] [place] [address] MCHC (RBC) [Mass/Vol] 33.2 % Normal 32.0-36.0 [facility] Comment on above: Performed By: #### L IPA4, HEMOG, CMP3 #### [facility] [address] [place] [address] MCV (RBC) [Entitic vol] 90.4 fL Normal 79.0-98.0 [facility] Comment on above: Performed By: #### L IPAFaith HEMOG, CMP3 #### [address] [place] [address] Platelet mean volume (Bld) [Entitic vol] 8.9 fL Normal 7.4-10.4 [facility] Comment on above: Performed By: #### L IPAFaith HEMOG, CMP3 #### [address] [address] Platelets (Bld) [#/Vol] 280 10*3/uL Normal 140-440 [facility] Comment on above: Performed By: #### L IPAFaith HEMOG, CMP3 #### [address] [address] RBC (Bld) [#/Vol] 4.98 10*6/uL Normal 3.80-5.20 [facility] Comment on above: Performed By: #### L IPAFaith, HEMOG, CMP3 #### [address] [address] WBC (Bld) [#/Vol] 4.2 10*3/uL Normal 3.6-10.7 [facility] Comment on above: Performed By: #### L IPAFaith, HEMOG, CMP3 #### [address] [address] Hemogram (CBC)on 09-11-2020 Erythrocyte distribution width (RBC) [Ratio] 13.1 % 11.5 - 14.5 % [facility] Work Phone: Hematocrit (Bld) [Volume fraction] 45.1 % 35 - 47 % [facility] Work Phone: Hemoglobin (Bld) [Mass/Vol] 15.0 g/dL 11.7 - 16 g/dL [facility] Work Phone: MCH (RBC) [Entitic mass] 30.0 pg 26 - 34 pg [facility] Work Phone: MCHC (RBC) [Mass/Vol] 33.2 % 32 - 36 % [facility] Work Phone: MCV (RBC) [Entitic vol] 90.4 fL 79 - 98 fL [facility] Work Phone: Platelet mean volume (Bld) [Entitic vol] 8.9 fL 7.4 - 10.4 fL [facility] Work Phone: Platelets (Bld) [#/Vol] 280 10*3/uL 140 - 440 10*3/uL [facility] Work Phone: RBC (Bld) [#/Vol] 4.98 10*6/uL 3.8 - 5.2 10*6/uL [facility] Work Phone: WBC (Bld) [#/Vol] 4.2 10*3/uL 3.6 - 10.7 10*3/uL [facility] Work Phone: Test Performed by [place], [facility] [place] [address] [facility] Work Phone: Lipaseon 09-11-2020 Lipase [Catalytic activity/Vol] 45 U/L Normal 23-300 [facility] Comment on above: Performed By: #### L IPA4, HEMOG, CMP3 #### [facility] [address] [place] [address] Lipase [Catalytic activity/Vol] 45 U/L 23 - 300 U/L [facility] Work Phone: Otheron 09-11-2020 Test Performed by Morgan [facility], [address] [place] [address] [facility] Work Phone: Test Performed by Morgan Zilta, [address] [place] [address] [facility] Work Phone: US ABDOMEN LIMITED Specify o rgan? GALLBLADDERon 09-11-2020 [facility] Incoming Radiology Results From [facility] - 09/11/2020 5:09 PM EST Patient Name: AMIE BRAXTON Ultrasound ACCESSION EXAM DATE/TIME PROCEDURE ORDERING PROVIDER [id number] 09/11/2020 16:46 EST US Abdomen Limited [id number] -ADELINA, FRANCESCA CPT code 96957 Reason For Exam (US Abdomen Limited) RUQ pain Report ULTRASOUND OF THE RIGHT UPPER QUADRANT CLINICAL INDICATION: RUQ pain TECHNIQUE: Real-time ultrasound of the right upper quadrant of the abdomen. COMPARISON: None FINDINGS: Normal appearance of the liver, gallbladder, and biliary tree. Pancreas appears normal. Right kidney measures 9.2 x 5.7 x 4.0 cm. Possible isoechoic mass versus column of Warren mid right kidney 2.0 x 1.9 x 2.1 cm. Visualized portions of aorta and IVC appear unremarkable. IMPRESSION: 1. Possible mass versus column of Warren mid right kidney. Further evaluation with CAT scan recommended. Report Dictated on --- Final --- Dictated: 09/11/2020 5:03 pm Dictating Physician: MD MCGREGOR JOHN R Signed Date and Time: 09/11/2020 5:08 pm Signed by: MD MCGREGOR JOHN R Transcribed Date and Time: 09/11/2020 5:03 [facility] Work Phone: [id number] Ul[facility]ound ACCESSION EXAM DATE/TIME PROCEDURE ORDERING PROVIDER [id number] 09/11/2020 16:46 EST US Abdomen Limited [id number] -ADELINA, FRANCESCA CPT code 17085 Reason For Exam (US Abdomen Limited) RUQ pain Report ULTRASOUND OF THE RIGHT UPPER QUADRANT CLINICAL INDICATION: RUQ pain TECHNIQUE: Real-time ultrasound of the right upper quadrant of the abdomen. COMPARISON: None FINDINGS: Normal appearance of the liver, gallbladder, and biliary tree. Pancreas appears normal. Right kidney measures 9.2 x 5.7 x 4.0 cm. Possible isoechoic mass versus column of [place] mid right kidney 2.0 x 1.9 x 2.1 cm. Visualized portions of aorta and IVC appear unremarkable. IMPRESSION: 1. Possible mass versus column of [place] mid right kidney. Further evaluation with CAT scan recommended. Report Dictated on --- Final --- Dictated: 09/11/2020 5:03 pm Dictating Physician: MD MCGREGOR JOHN R Signed Date and Time: 09/11/2020 5:08 pm Signed by: MD MCGREGOR JOHN R Transcribed Date and Time: 09/11/2020 5:03 [facility] Work Phone: US Abdomen Limitedon 021 US Abdomen Limited Patient Name: AMIE BRAXTON [facility]#: [id number] Ultrasound ACCESSION EXAM DATE/TIME PROCEDURE ORDERING PROVIDER [id number] 09/11/2020 16:46 EST US Abdomen Limited [id number] -FRANCESCA SAHU CPT code 10407 Reason For Exam (US Abdomen Limited) RUQ pain Report ULTRASOUND OF THE RIGHT UPPER QUADRANT CLINICAL INDICATION: RUQ pain TECHNIQUE: Real-time ultrasound of the right upper quadrant of the abdomen. COMPARISON: None FINDINGS: Normal appearance of the liver, gallbladder, and biliary tree. Pancreas appears normal. Right kidney measures 9.2 x 5.7 x 4.0 cm. Possible isoechoic mass versus column of Warren mid right kidney 2.0 x 1.9 x 2.1 cm. Visualized portions of aorta and IVC appear unremarkable. IMPRESSION: 1. Possible mass versus column of Warren mid right kidney. Further evaluation with CAT scan recommended. Report Dictated on Final Dictated: 09/11/2020 5:03 pm Dictating Physician: MD MCGREGOR JOHN R Signed Date and Time: 09/11/2020 5:08 pm Signed by: MD MCGREGOR JOHN R Transcribed Date and Time: 09/11/2020 5:03 Normal [facility] Urinalysison 09-11-2020 Appearance (U) Clear Clear NA [facility] Work Phone: Comment on above: . Bilirubin Urine Negative Negative mg/dL [facility] Work Phone: Comment on above: . Color (U) LIGHT YELLOW Lt. Yellow NA [facility] Work Phone: Comment on above: . Glucose, Ur Normal Normal (<70) mg/dL [facility] Work Phone: Comment on above: . Ketones Ql (U) Negative Negative mg/dL [facility] Work Phone: Comment on above: . LEUKOCYTES, UA Negative Negative Vijaya/uL [facility] Work Phone: Comment on above: . Nitrite, Urine Negative Negative NA [facility] Work Phone: Comment on above: . Occult Blood,Urine Negative Negative mg/dL [facility] Work Phone: Comment on above: . pH (U) 8.0 [pH] [facility] Work Phone: Comment on above: . Protein (U) [Mass/Vol] Negative Negat camilo mg/dL [facility] Work Phone: Comment on above: . Specific [place], Urine 1.014 [facility] Work Phone: Comment on above: . Urobilinogen, Urine Normal Normal (0-1) mg/dL [facility] Work Phone: Comment on above: . Coding Summary.on 03-17-2017 Coding Summary. CODING DATE: 017 [facility] STATUS: Home (Routine DC) PAYOR: Mel NEIL DESCRIPTION 5373 Level 3 Urology and Related Services ADMIT DX: REASON FOR VISIT DX: N35.9 Urethral stricture, unspecified FINAL DX: PRINCIPAL: N35.9 Urethral stricture, unspecified SECONDARY: Z87.440 Personal history of urinary (tract) infections R39.14 Feeling of incomplete bladder emptying PYMT PROC APC STAT DESCRIPTION DOCTOR NAME DATE NOTE: The code number assigned matches the documented diagnosis and / or procedure in the patient's chart. However, the narrative phrase printed from the coding software may appear abbreviated, or result in slightly different terminology. Coded By: Fely Art Date Saved: 03/17/2017 09:44 am [facility] Main OR Intraoperative Recor don 03-15-2017 Main OR Intraoperative Record IntraOp Document Type FTURO Summary Primary Physician: Will Salamanca MD Finalized Date/Time: 03/15/17 14:10:24 Pt. Name: AMIE BRAXTON Rebekah/Sex: 1995 Female Med Rec #: [id number] Physician: Will Salamanca MD Financial #: [id number] Pt. Type: O Room/Bed: / Admit/Disch: 03/15/17 13:29:51 - Institution: Case Times FTURO Entry 1 Patient Times In Room 03/15/17 13:51:00 Out Room 03/15/17 14:15:00 Procedure Times Start 03/15/17 13:58:00 Stop 03/15/17 14:10:00 Anesthesia Times Last Modified By: Milo MURPHY, BETSYOR, Lidia 03/15/17 14:10:17 Case Attendance FTURO Entry 1 Entry 2 Entry 3 Case Attendee Jadyn NOLASCO, Will Pedraza RN, CNOR, Asaf [facility], Loraine Murillo Role Performed Surgeon - Primary Weave Defect Charting Clerk - Primary Scrub - Primary Time In 03/15/17 13:51:00 03/15/17 13:51:00 03/15/17 13:51:00 Time Out 03/15/17 14:15:00 03/15/17 14:15:00 03/15/17 14:15:00 Procedure CYSTOSCOPY LOCAL WITH CYSTOSCOPY LOCAL WITH CYSTOSCOPY LOCAL WITH URETHRAL DILATION(.) URETHRAL DILATION(.) URETHRAL DILATION(.) Comments Last Modified By: Milo RN, CNOR, Milo RN, CNOR, Milo RN, CNOR, Lidia 03/15/17 Lidia 03/15/17 Lidia 03/15/17 14:10:19 14:10:19 14:10:19 Surgical Procedures FTURO Entry 1 Procedure Description Procedure CYSTOSCOPY LOCAL WITH Modifiers . URETHRAL DILATION Surgeon Description CYSTOSCOPY WITH URETHRAL DILATION Primary Procedure Yes Primary Surgeon Will Salamanca MD Start 03/15/17 13:58:00 Stop 03/15/17 14:10:00 Anesthesia Type Local Surgical Service Urology Wound Class 2 - Clean-Contaminated Last Modified By: Milo MURPHY, BETSYOR, Lidia 03/15/17 14:10:20 General Case Data FTURO Pre-Care Text: Classifies surgical wound, implements aseptic technique, initiates traffic control Entry 1 Case Information OR URO 1 FT Case Level None Wound Class 2 - Clean-Contaminated Specialty Urology Preop Diagnosis UTI, INCOMPLETE EMPTYING Postop Same As Preop No Postop Diagnosis URETHRAL STRICTURE Outcomes Met? Yes Last Modified By: ZOHAIB Pedraza RN, Ruthann 03/15/17 09:34:11 Post-Care Text: The patient is free from signs and symptoms of infection EU IntraOp - FTURO Pre-Care Text: Implements protective measures prior to operative or invasive procedure, confirms identity before the operative or invasive procedure, verifies operative procedure, surgical site, and laterality Entry 1 EU Perioperative Protocols Procedure(s) CYSTOSCOPY LOCAL WITH Patient Identity Birthday, ID Band URETHRAL DILATION(.) Verified (select at Check, Patient least 2): Participation Consents / H and P HandP, Surgery/Procedure Operative Site N/A Verified Consent Marking Verified Surgical Site Yes Laterality Verified n/a Verified Procedure Verified Yes Correct Patient Yes Position Verified Availability Equipment, Implant, Time Out Will Salamanca MD, Verified (If Medication Participants ZOHAIB Pedraza RN, Applicable) Lidia Time Out Complete 03/15/17 13:52:00 Allergies Reviewed? Yes Allergies Reviewed Self/Patient With Body Position Frog Legged Prep Area PERINEAL AREA Prep Agents Betadine Solution Skin. Condition Intact Additional None Specimens Collected Vitals - EU Blood Pressure 102/58 Pulse 90 bpm Respirations SPO2 EBL 0 IandO - EU Total Intake 0 mL Total Output 0 mL Outcomes Met? Yes Last Modified By: ZOHAIB Pedraza RN, Ruthann 03/15/17 13:53:28 Post-Care Text: The patient is free from signs and symptoms of injury caused by extraneous objects Case Comments Finalized By: ZOHAIB Pedraza RN, Ruthann Document Signatures Signed By: ZOHAIB Pedraza RN, Ruthann 03/15/17 14:10 Normal [facility] Main OR Preoperative Recordo n 03-15-2017 Main OR Preoperative Record Holding Area Document Type FTURO Summary Primary Physician: Will Salamanca MD Finalized Date/Time: 03/15/17 13:52:29 Pt. Name: FOXAMIE/Sex: 1995 Female Med Rec #: [id number] Physician: Will Salamanca MD Financial #: [id number] Pt. Type: O Room/Bed: / Admit/Disch: 03/15/17 13:29:51 - Institution: Case Times Holding FTURO Pre-Care Text: Verifies consent for planned procedure, identifies individual values and wishes concerning care, includes family members in perioperative teaching Secures patient's records' belongings, and valuables, maintains patient's dignity and privacy, and maintains patient confidentiality Entry 1 In Holding 03/15/17 13:36:00 Outcomes Met? Yes Last Modified By: Tabby Case LPN 03/15/17 13:36:18 Post-Care Text: The patient participates in decisions affecting his or her perioperative plan of care The patient's right to privacy is maintained Surgery Checklist FTURO Entry 1 Patient Birthday, ID Band Procedure History and Physical, Identification: Check, Patient Verification: Surgical Consent, With Participation Patient NPO after Midnight: n/a Personal Items: Glasses, Jewelry Personal Items bracelets, watch Complaints of Pain: No Comment: Skin Integrity Intact, [place], Warm, & Dry Vitals - EU Blood Pressure 102/58 Pulse 91 bpm Respirations 18 br/min SPO2 RN Reviewed Yes Last Modified By: ZOHAIB Pedraza RN, Ruthann 03/15/17 13:52:27 Finalized By: ZOHAIB Pedraza RN, Ruthann Document Signatures Signed By: Tabby Case LPN 03/15/17 13:39 ZOHAIB Pedraza RN, Ruthann 03/15/17 13:52 Normal [facility] Operative Reporton Operative Report Patient: MEDHAT BRAXTON Age: 21 years Sex: Female : 1995 Associated Diagnoses: None Author: Will Salamanca MD Procedure Operative Information Details: Date/ Time: 03/15/17 14:13:00. Pre-Op Dx: Hx of UTI's - Z87.440, Incomplete Bladder Emptying - R39.14, Urethral Stricture - Other Unspecified - N35.9. Post-Op Dx: Same. Anesthesia Type: Local. Procedure: Local Cystoscopy with Urethral Dilation. Complications: None. Risks/Benefits/Informed Consent: Surgical risks, benefits, details of the procedure have been explained to the patient, Full informed consent has been obtained. Intraoperative Information Prepped: Patient is brought back to the endoscopy suite, Patient is placed in modified dorso/lithotomy position, Patient prepped in the usual fashion with Betadine solution, 2% Xylocaine Jelly is placed per Urethra, After waiting several minutes the Cystoscope is introduced. The Urethra is: Tight, ?caruncle at 4-5:00 1cm. The Bladder is: Normal, no sensation of fullness with 300cc, no prolapse, cal or a.v.. The ureteral orifices: Show efflux of clear urine. The Urethra was dilated to: 30 [place] w/ sounds. Devices Implanted: None. Removal: Cystoscope is removed, The patient tolerated it well. Postoperative Information Discharge: Patient is discharged home with antibiotic coverage, Follow up arranged. Normal [facility] Comment on above: Result Comment: Elec tronically Signed By: Jadyn NOLASCO, Will Denis\.br\Date and Time Signed: 03/15/17 14:15 EDT No Panel Information [facility] Vital Signs Date Time Vital Sign Value Performing Clinician Facility 03-26-2025 08:40-0400 Body mass index (BMI) [Ratio] 20.51 kg/m2 [facility] Work Phone: [facility] 03-26-2025 08:40-0400 Body weight 47.63 kg [facility] Work Phone: [facility] 03-26-2025 08:40-0400 Diastolic blood pressure 58 mm[Hg] [facility] Work Phone: [facility] 03-26-2025 08:40-0400 Heart rate 72 /min [facility] Work Phone: [facility] 03-26-2025 08:40-0400 Systolic blood pressure 90 mm[Hg] [facility] Work Phone: [facility] 03-19-2025 10:41-0400 Body height 152.4 cm Yuan Schafer MD Work Phone: [facility] 03-19-2025 10:41-0400 Body mass index (BMI) [Ratio] 20.51 kg/m2 Yuan Schafer MD Work Phone: [facility] 03-19-2025 10:41-0400 Body weight 47.63 kg Yuan Schafer MD Work Phone: [facility] 03-14-2025 13:04-0400 Body mass index (BMI) [Ratio] 20.37 kg/m2 Daniel Guerrero DO Work Phone: [facility] 03-14-2025 13:04-0400 Body weight 47.3 kg Daniel Guerrero DO Work Phone: [facility] 03-14-2025 13:04-0400 Diastolic blood pressure 70 mm[Hg] Daniel Guerrero DO Work Phone: [facility] 03-14-2025 13:04-0400 Heart rate 64 /min Daniel Guerrero DO Work Phone: [facility] 03-14-2025 13:04-0400 SaO2% (BldA) [Mass fraction] 100 % Daniel Guerrero DO Work Phone: [facility] 03-14-2025 13:04-0400 Systolic blood pressure 106 mm[Hg] Daniel Guerrero DO Work Phone: [facility] 03-05-2025 15:00-0400 Heart rate 70 /min Uniqua Raman PT [facility] 01-15-2025 13:00-0400 Heart rate 69 /min Uniqua Raman PT [facility] 01-03-2025 11:44-0400 Body mass index (BMI) [Ratio] 19.73 kg/m2 Makenzie Pack 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.HORSE SHOER Work Phone: [facility] 01-03-2025 11:44-0400 Body weight 45.81 kg Makenzie Pack 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.HORSE SHOER Work Phone: [facility] 01-03-2025 11:44-0400 Heart rate 67 /min Makenzie Pack 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.HORSE SHOER Work Phone: [facility] 01-03-2025 11:44-0400 SaO2% (BldA) [Mass fraction] 98 % Makenzie Pack 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.HORSE SHOER Work Phone: [facility] 12-31-2024 11:31-0400 Body height 152.4 cm Nel Girard MD Work Phone: [facility] 12-31-2024 11:31-0400 Body mass index (BMI) [Ratio] 20.26 kg/m2 Nel Girard MD Work Phone: [facility] 12-31-2024 11:31-0400 Body weight 47.05 kg Nel Girard MD Work Phone: [facility] 12-31-2024 11:31-0400 Diastolic blood pressure 51 mm[Hg] Nel Girard MD Work Phone: [facility] 12-31-2024 11:31-0400 Heart rate 69 /min Nel Girard MD Work Phone: [facility] 12-31-2024 11:31-0400 Systolic blood pressure 101 mm[Hg] Nel Girard MD Work Phone: [facility] 12-24-2024 11:07-0400 Body mass index (BMI) [Ratio] 19.58 kg/m2 Praveen Canales MD Work Phone: [facility] 12-24-2024 11:07-0400 Body weight 46.99 kg Praveen Canales MD Work Phone: [facility] 12-24-2024 11:07-0400 Diastolic blood pressure 62 mm[Hg] Praveen Canales MD Work Phone: [facility] 12-24-2024 11:07-0400 Heart rate 71 /min Praveen Canales MD Work Phone: [facility] 12-24-2024 11:07-0400 SaO2% (BldA) [Mass fraction] 99 % Praveen Canales MD Work Phone: [facility] 12-24-2024 11:07-0400 Systolic blood pressure 94 mm[Hg] Praveen Canales MD Work Phone: [facility] 12-06-2024 13:06-0400 Body mass index (BMI) [Ratio] 19.66 kg/m2 Daniel Guerrero DO Work Phone: [facility] 12-06-2024 13:06-0400 Body weight 47.2 kg Daniel Hineslar DO Work Phone: [facility] 12-06-2024 13:06-0400 Diastolic blood pressure 60 mm[Hg] Daniel Medinar DO Work Phone: [facility] 12-06-2024 13:06-0400 Heart rate 68 /min Daniel Medinar DO Work Phone: [facility] 12-06-2024 13:06-0400 SaO2% (BldA) [Mass fraction] 98 % Daniel Medinar DO Work Phone: [facility] 12-06-2024 13:06-0400 Systolic blood pressure 94 mm[Hg] Daniel Medinar DO Work Phone: [facility] 11-26-2024 10:46-0400 Diastolic blood pressure 62 mm[Hg] Us Stro Work Phone: [facility] 11-26-2024 10:46-0400 Systolic blood pressure 100 mm[Hg] Us Stro Work Phone: [facility] 11-21-2024 14:08-0400 Body mass index (BMI) [Ratio] 19.29 kg/m2 Carline Carson 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.HORSE SHOER Work Phone: [facility] 11-21-2024 14:08-0400 Body weight 46.3 kg Carline Carson 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.HORSE SHOER Work Phone: [facility] 11-21-2024 14:08-0400 Diastolic blood pressure 54 mm[Hg] Carline Carson 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.HORSE SHOER Work Phone: [facility] 11-21-2024 14:08-0400 Systolic blood pressure 104 mm[Hg] Carline Carson 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.HORSE SHOER Work Phone: [facility] 10-30-2024 07:59-0400 Body height 154.9 cm Nel Girard MD Work Phone: [facility] 10-30-2024 07:59-0400 Body mass index (BMI) [Ratio] 19.83 kg/m2 Nel Girard MD Work Phone: [facility] 10-30-2024 07:59-0400 Body weight 47.6 kg Nel Girard MD Work Phone: [facility] 10-30-2024 07:59-0400 Diastolic blood pressure 60 mm[Hg] Nel Girard MD Work Phone: [facility] 10-30-2024 07:59-0400 Heart rate 74 /min Nel Girard MD Work Phone: [facility] 10-30-2024 07:59-0400 Systolic blood pressure 101 mm[Hg] Nel Girard MD Work Phone: [facility] 10-11-2024 11:43-0400 Body mass index (BMI) [Ratio] 19.66 kg/m2 Daniel Guerrero DO Work Phone: [facility] 10-11-2024 11:43-0400 Body weight 47.2 kg Daniel Guerrero DO Work Phone: [facility] 10-11-2024 11:43-0400 Diastolic blood pressure 68 mm[Hg] Daniel Guerrero DO Work Phone: [facility] 10-11-2024 11:43-0400 Heart rate 80 /min Daniel Guerrero DO Work Phone: [facility] 10-11-2024 11:43-0400 SaO2% (BldA) [Mass fraction] 98 % Daniel Guerrero DO Work Phone: [facility] 10-11-2024 11:43-0400 Systolic blood pressure 112 mm[Hg] Daniel Guerrero DO Work Phone: [facility] 09-28-2024 10:29-0400 Body height 154.9 cm Fely Kubicki 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.COMPUTER OPERATIONS MANAGER Work Phone: [facility] 09-28-2024 10:29-0400 Body mass index (BMI) [Ratio] 19.99 kg/m2 Fely Kubicki 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.COMPUTER OPERATIONS MANAGER Work Phone: [facility] 09-28-2024 10:29-0400 Body temperature 98.49 [degF] Fely Kubicki 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.COMPUTER OPERATIONS MANAGER Work Phone: [facility] 09-28-2024 10:29-0400 Body weight 48 kg Fely Kubicki 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.COMPUTER OPERATIONS MANAGER Work Phone: [facility] 09-28-2024 10:29-0400 Diastolic blood pressure 74 mm[Hg] Fely Kubicki 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.COMPUTER OPERATIONS MANAGER Work Phone: [facility] 09-28-2024 10:29-0400 Heart rate 112 /min Fely Kubicki 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.COMPUTER OPERATIONS MANAGER Work Phone: [facility] 09-28-2024 10:29-0400 Respiratory rate 16 /min Fely Kubicki 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.COMPUTER OPERATIONS MANAGER Work Phone: [facility] 09-28-2024 10:29-0400 SaO2% (BldA) [Mass fraction] 100 % Fely Kubicki 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.COMPUTER OPERATIONS MANAGER Work Phone: [facility] 09-28-2024 10:29-0400 Systolic blood pressure 104 mm[Hg] Fely Kubicki 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.COMPUTER OPERATIONS MANAGER Work Phone: [facility] 09-27-2024 09:56-0400 Body height 154.9 cm Apple Grady PA-C Work Phone: [facility] 09-27-2024 09:56-0400 Body mass index (BMI) [Ratio] 20.74 kg/m2 Apple DUBONC Work Phone: [facility] 09-27-2024 09:56-0400 Body temperature 97.11 [degF] Apple Ariasling PA-C Work Phone: [facility] 09-27-2024 09:56-0400 Body weight 49.8 kg Apple Ariasling PA-C Work Phone: [facility] 09-27-2024 09:56-0400 Diastolic blood pressure 80 mm[Hg] Apple Grady PA-C Work Phone: [facility] 09-27-2024 09:56-0400 Heart rate 71 /min Apple Grady PA-C Work Phone: [facility] 09-27-2024 09:56-0400 SaO2% (BldA) [Mass fraction] 98 % Apple Ariasling PA-C Work Phone: [facility] 09-27-2024 09:56-0400 Systolic blood pressure 116 mm[Hg] Apple Ariasling PA-C Work Phone: [facility] 09-17-2024 15:00-0400 Heart rate 108 /min Laxmi Camargo [facility] 09-05-2024 10:09-0500 Body height 154.9 cm Crystal Workman PA-C Work Phone: [facility] 09-05-2024 10:09-0500 Body mass index (BMI) [Ratio] 19.65 kg/m2 Crystal Workman PA-C Work Phone: [facility] 09-05-2024 10:09-0500 Body weight 47.17 kg Crystal Workman PA-C Work Phone: [facility] 09-05-2024 10:09-0500 Diastolic blood pressure 76 mm[Hg] Crystal Workman PA-C Work Phone: [facility] 09-05-2024 10:09-0500 Heart rate 109 /min Crystal Workman PA-C Work Phone: [facility] 09-05-2024 10:09-0500 Respiratory rate 18 /min Yang Workman PA-C Work Phone: [facility] 09-05-2024 10:09-0500 Systolic blood pressure 111 mm[Hg] Yang Workman PA-C Work Phone: [facility] 09-04-2024 09:14-0500 Body height 154.9 cm Concepcion Toth MD Work Phone: [facility] 09-04-2024 09:14-0500 Body mass index (BMI) [Ratio] 19.65 kg/m2 Concepcion Toth MD Work Phone: [facility] 09-04-2024 09:14-0500 Body weight 47.17 kg Concepcion Toth MD Work Phone: [facility] 09-04-2024 09:14-0500 Diastolic blood pressure 62 mm[Hg] Concepcion Toth MD Work Phone: [facility] 09-04-2024 09:14-0500 Heart rate 138 /min Concepcion Toth MD Work Phone: [facility] 09-04-2024 09:14-0500 Respiratory rate 18 /min Concepcion Toth MD Work Phone: [facility] 09-04-2024 09:14-0500 SaO2% (BldA) [Mass fraction] 99 % Concepcion Toth MD Work Phone: [facility] 09-04-2024 09:14-0500 Systolic blood pressure 128 mm[Hg] Concepcion Toth MD Work Phone: [facility] 09-03-2024 14:56-0500 Body height 152.4 cm Daniel Mauro MD Work Phone: [facility] 09-03-2024 14:56-0500 Body mass index (BMI) [Ratio] 45.21 kg/m2 Daniel Mauro MD Work Phone: [facility] 09-03-2024 14:56-0500 Body weight 105 kg Daniel Mauro MD Work Phone: [facility] 09-03-2024 14:56-0500 Diastolic blood pressure 84 mm[Hg] Daniel Mauro MD Work Phone: [facility] 09-03-2024 14:56-0500 Heart rate 144 /min Daniel Mauro MD Work Phone: [facility] 09-03-2024 14:56-0500 Systolic blood pressure 137 mm[Hg] Daniel Mauro MD Work Phone: [facility] 08-30-2024 08:28-0500 Body height 152.4 cm Yuan Schafer MD Work Phone: [facility] 08-30-2024 08:28-0500 Body mass index (BMI) [Ratio] 20.51 kg/m2 Yuan Schafer MD Work Phone: [facility] 08-30-2024 08:28-0500 Body weight 47.63 kg Yuan Schafer MD Work Phone: [facility] 08-07-2024 11:22-0500 Body height 152.4 cm Daniel Guerrero DO Work Phone: [facility] 08-07-2024 11:22-0500 Body mass index (BMI) [Ratio] 21.52 kg/m2 aDniel Guerrero DO Work Phone: [facility] 08-07-2024 11:22-0500 Body temperature 98.49 [degF] Daniel Guerrero DO Work Phone: [facility] 08-07-2024 11:22-0500 Body weight 49.99 kg Daniel Guerrero DO Work Phone: [facility] 08-07-2024 11:22-0500 Diastolic blood pressure 80 mm[Hg] Daniel Guerrero DO Work Phone: [facility] 08-07-2024 11:22-0500 Heart rate 90 /min Daniel Guerrero DO Work Phone: [facility] 08-07-2024 11:22-0500 Respiratory rate 16 /min Daniel Medinar DO Work Phone: [facility] 08-07-2024 11:22-0500 Systolic blood pressure 128 mm[Hg] Daniel Medinar DO Work Phone: [facility] 07-26-2024 11:13-0500 Body mass index (BMI) [Ratio] 20.95 kg/m2 Apple Whitling PA-C Work Phone: [facility] 07-26-2024 11:13-0500 Body temperature 98.2 [degF] Apple Whitling PA-C Work Phone: [facility] 07-26-2024 11:13-0500 Body weight 50.3 kg Apple Whitling PA-C Work Phone: [facility] 07-26-2024 11:13-0500 Diastolic blood pressure 72 mm[Hg] Apple Whitling PA-C Work Phone: [facility] 07-26-2024 11:13-0500 Heart rate 87 /min Apple Whitling PA-C Work Phone: [facility] 07-26-2024 11:13-0500 Respiratory rate 16 /min Apple Whitling PA-C Work Phone: [facility] 07-26-2024 11:13-0500 SaO2% (BldA) [Mass fraction] 99 % Apple Whitling PA-C Work Phone: [facility] 07-26-2024 11:13-0500 Systolic blood pressure 108 mm[Hg] Apple Whitling PA-C Work Phone: [facility] 07-23-2024 14:03-0500 Body height 154.9 cm Fely Garcia APRN.CNS Work Phone: [facility] 07-23-2024 14:03-0500 Body mass index (BMI) [Ratio] 19.84 kg/m2 Fely Kubicki 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.COMPUTER OPERATIONS MANAGER Work Phone: [facility] 07-23-2024 14:03-0500 Body temperature 97 [degF] Fely Kubicki 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.COMPUTER OPERATIONS MANAGER Work Phone: [facility] 07-23-2024 14:03-0500 Body weight 47.63 kg Fely Kubicki 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.COMPUTER OPERATIONS MANAGER Work Phone: [facility] 07-23-2024 14:03-0500 Diastolic blood pressure 66 mm[Hg] Fely Kubicki 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.COMPUTER OPERATIONS MANAGER Work Phone: [facility] 07-23-2024 14:03-0500 Heart rate 86 /min Fely Kubicki 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.COMPUTER OPERATIONS MANAGER Work Phone: [facility] 07-23-2024 14:03-0500 Respiratory rate 17 /min Fely Kubicki 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.COMPUTER OPERATIONS MANAGER Work Phone: [facility] 07-23-2024 14:03-0500 SaO2% (BldA) [Mass fraction] 98 % Fely Kubicki 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.COMPUTER OPERATIONS MANAGER Work Phone: [facility] 07-23-2024 14:03-0500 Systolic blood pressure 96 mm[Hg] Fely Kubicki 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.COMPUTER OPERATIONS MANAGER Work Phone: [facility] 07-18-2024 14:02-0500 Body height 154.9 cm Aliza Boyd MD Work Phone: [facility] 07-18-2024 14:02-0500 Body mass index (BMI) [Ratio] 20.1 kg/m2 Aliza Boyd MD Work Phone: [facility] 07-18-2024 14:02-0500 Body weight 48.26 kg Aliza Boyd MD Work Phone: [facility] 07-18-2024 14:02-0500 Diastolic blood pressure 75 mm[Hg] Aliza Boyd MD Work Phone: [facility] 07-18-2024 14:02-0500 Heart rate 80 /min Aliza Boyd MD Work Phone: [facility] 07-18-2024 14:02-0500 Systolic blood pressure 109 mm[Hg] Aliza Boyd MD Work Phone: [facility] 07-13-2024 08:41-0500 Body height 156.3 cm Nieves Smith MD Work Phone: [facility] 07-13-2024 08:41-0500 Body mass index (BMI) [Ratio] 19.83 kg/m2 Nieves Smith MD Work Phone: [facility] 07-13-2024 08:41-0500 Body temperature 97.11 [degF] Nieves Smith MD Work Phone: [facility] 07-13-2024 08:41-0500 Body weight 48.45 kg Nieves Smith MD Work Phone: [facility] 07-13-2024 08:41-0500 Diastolic blood pressure 55 mm[Hg] Nieves Smith MD Work Phone: [facility] 07-13-2024 08:41-0500 Heart rate 86 /min Nieves Smith MD Work Phone: [facility] 07-13-2024 08:41-0500 Respiratory rate 12 /min Nieves Smith MD Work Phone: [facility] 07-13-2024 08:41-0500 Systolic blood pressure 96 mm[Hg] Nieves Smith MD Work Phone: [facility] 07-09-2024 14:14-0500 Body height 156.8 cm Martha Hassan PA-C Work Phone: [facility] 07-09-2024 14:14-0500 Body mass index (BMI) [Ratio] 19.48 kg/m2 Martha Harrells PA-C Work Phone: [facility] 07-09-2024 14:14-0500 Body weight 47.9 kg Martha Harrells PA-C Work Phone: [facility] 07-09-2024 14:14-0500 Diastolic blood pressure 65 mm[Hg] Martha Harrells PA-C Work Phone: [facility] 07-09-2024 14:14-0500 Heart rate 86 /min Mratha Harrells PA-C Work Phone: [facility] 07-09-2024 14:14-0500 Systolic blood pressure 102 mm[Hg] Martha Harrells PA-C Work Phone: [facility] 07-09-2024 08:20-0500 Body height 154.9 cm Samra Rose APRN.HORSE SHOER Work Phone: [facility] 07-09-2024 08:20-0500 Body mass index (BMI) [Ratio] 19.88 kg/m2 Samra Rose APRN.HORSE SHOER Work Phone: [facility] 07-09-2024 08:20-0500 Body temperature 97.81 [degF] Samra Rose APRN.HORSE SHOER Work Phone: [facility] 07-09-2024 08:20-0500 Body weight 47.72 kg Samra Rose APRN.HORSE SHOER Work Phone: [facility] 07-09-2024 08:20-0500 Diastolic blood pressure 62 mm[Hg] Samra Rose APRN.HORSE SHOER Work Phone: [facility] 07-09-2024 08:20-0500 Heart rate 77 /min Samra Rose APRN.HORSE SHOER Work Phone: [facility] 07-09-2024 08:20-0500 SaO2% (BldA) [Mass fraction] 99 % Samra Rose APRN.HORSE SHOER Work Phone: [facility] 07-09-2024 08:20-0500 Systolic blood pressure 97 mm[Hg] Samra Rose 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.HORSE SHOER Work Phone: [facility] 06-22-2024 09:30-0500 Body height 155 cm Nicola Click 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.HORSE SHOER Work Phone: [facility] 06-22-2024 09:30-0500 Body mass index (BMI) [Ratio] 20.01 kg/m2 Nicola Click 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.HORSE SHOER Work Phone: [facility] 06-22-2024 09:30-0500 Body weight 48.08 kg Nicola Click 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.HORSE SHOER Work Phone: [facility] 06-22-2024 09:30-0500 Diastolic blood pressure 72 mm[Hg] Nicola Click 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.HORSE SHOER Work Phone: [facility] 06-22-2024 09:30-0500 Heart rate 68 /min Nicola Click 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.HORSE SHOER Work Phone: [facility] 06-22-2024 09:30-0500 Respiratory rate 18 /min Nicola Click 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.HORSE SHOER Work Phone: [facility] 06-22-2024 09:30-0500 SaO2% (BldA) [Mass fraction] 98 % Nicola Click 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.HORSE SHOER Work Phone: [facility] 06-22-2024 09:30-0500 Systolic blood pressure 108 mm[Hg] Nicola Click 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.HORSE SHOER Work Phone: [facility] 06-14-2024 09:31-0500 Diastolic blood pressure 58 mm[Hg] Ct (I-Stat) Work Phone: [facility] 06-14-2024 09:31-0500 Heart rate 78 /min Ct (I-Stat) Work Phone: [facility] 06-14-2024 09:31-0500 Systolic blood pressure 112 mm[Hg] Ct (I-Stat) Work Phone: [facility] 05-15-2024 08:06-0500 Body height 152.4 cm Daniel Mauro MD Work Phone: [facility] 05-15-2024 08:06-0500 Body mass index (BMI) [Ratio] 21.1 kg/m2 Daniel Mauro MD Work Phone: [facility] 05-15-2024 08:06-0500 Body weight 49 kg Daniel Mauro MD Work Phone: [facility] 05-15-2024 08:06-0500 Diastolic blood pressure 75 mm[Hg] Daniel Mauro MD Work Phone: [facility] 05-15-2024 08:06-0500 Heart rate 78 /min Daniel Mauro MD Work Phone: [facility] 05-15-2024 08:06-0500 Systolic blood pressure 108 mm[Hg] Daniel Mauro MD Work Phone: [facility] 05-10-2024 14:09-0400 Body mass index (BMI) [Ratio] 21.05 kg/m2 Daniel Guerrero DO Work Phone: [facility] 05-10-2024 14:09-0400 Body temperature 98.29 [degF] Daniel Guerrero DO Work Phone: [facility] 05-10-2024 14:09-0400 Body weight 48.9 kg Daniel Guerrero DO Work Phone: [facility] 05-10-2024 14:09-0400 Diastolic blood pressure 86 mm[Hg] Daniel Guerrero DO Work Phone: [facility] 05-10-2024 14:09-0400 Heart rate 77 /min Daniel Guerrero DO Work Phone: [facility] 05-10-2024 14:09-0400 SaO2% (BldA) [Mass fraction] 98 % Daniel Guerrero DO Work Phone: [facility] 05-10-2024 14:09-0400 Systolic blood pressure 120 mm[Hg] Daniel Guerrero DO Work Phone: [facility] 04-27-2024 13:57-0400 Diastolic blood pressure 50 mm[Hg] Maximiliano Peterson MD Work Phone: [facility] 04-27-2024 13:57-0400 Heart rate 78 /min Maximiliano Peterson MD Work Phone: [facility] 04-27-2024 13:57-0400 Respiratory rate 16 /min Maximiliano Peterson MD Work Phone: [facility] 04-27-2024 13:57-0400 SaO2% (BldA) [Mass fraction] 98 % Maximiliano Peterson MD Work Phone: [facility] 04-27-2024 13:57-0400 Systolic blood pressure 93 mm[Hg] Maximiliano Peterson MD Work Phone: [facility] 04-27-2024 13:42-0400 Body temperature 97.81 [degF] Maximiliano Peterson MD Work Phone: [facility] 04-27-2024 12:56-0400 Body height 152.4 cm Maximiliano Peterson MD Work Phone: [facility] 04-27-2024 12:56-0400 Body mass index (BMI) [Ratio] 21.48 kg/m2 Maximiliano Peterson MD Work Phone: [facility] 04-27-2024 12:56-0400 Body weight 49.9 kg Maximiliano Peterson MD Work Phone: [facility] 04-25-2024 14:57-0400 Body height 152.4 cm Tami Darnell MD Work Phone: [facility] 04-25-2024 14:57-0400 Body mass index (BMI) [Ratio] 20.7 kg/m2 Tami Darnell MD Work Phone: [facility] 04-25-2024 14:57-0400 Body weight 48.08 kg Tami Darnell MD Work Phone: [facility] 04-25-2024 14:57-0400 Diastolic blood pressure 64 mm[Hg] Tami Darnell MD Work Phone: [facility] 04-25-2024 14:57-0400 Heart rate 83 /min Tami Darnell MD Work Phone: [facility] 04-25-2024 14:57-0400 SaO2% (BldA) [Mass fraction] 99 % Tami Darnell MD Work Phone: [facility] 04-25-2024 14:57-0400 Systolic blood pressure 104 mm[Hg] Taim Darnell MD Work Phone: [facility] 04-25-2024 08:11-0400 Body height 152.4 cm Fely Garcia 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.COMPUTER OPERATIONS MANAGER Work Phone: [facility] 04-25-2024 08:11-0400 Body mass index (BMI) [Ratio] 21.48 kg/m2 Fely Garcia 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.COMPUTER OPERATIONS MANAGER Work Phone: [facility] 04-25-2024 08:11-0400 Body temperature 98.01 [degF] Fely Garcia 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.COMPUTER OPERATIONS MANAGER Work Phone: [facility] 04-25-2024 08:11-0400 Body weight 49.9 kg Fely Garcia 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.COMPUTER OPERATIONS MANAGER Work Phone: [facility] 04-25-2024 08:11-0400 Diastolic blood pressure 68 mm[Hg] Fely Garcia 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.COMPUTER OPERATIONS MANAGER Work Phone: [facility] 04-25-2024 08:11-0400 Heart rate 86 /min Fely Garcia 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.COMPUTER OPERATIONS MANAGER Work Phone: [facility] 04-25-2024 08:11-0400 Respiratory rate 19 /min Fely Garcia 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.COMPUTER OPERATIONS MANAGER Work Phone: [facility] 04-25-2024 08:11-0400 SaO2% (BldA) [Mass fraction] 100 % Fely Kubicki 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.COMPUTER OPERATIONS MANAGER Work Phone: [facility] 04-25-2024 08:11-0400 Systolic blood pressure 100 mm[Hg] Fely Kubicki 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.COMPUTER OPERATIONS MANAGER Work Phone: [facility] 04-19-2024 13:28-0400 Body height 152.4 cm Boubacar Mastrucci 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.HORSE SHOER Work Phone: [facility] 04-19-2024 13:28-0400 Body mass index (BMI) [Ratio] 21.29 kg/m2 Boubacar Mastrucci 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.HORSE SHOER Work Phone: [facility] 04-19-2024 13:28-0400 Body weight 49.44 kg Boubacar Mastrucci 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.HORSE SHOER Work Phone: [facility] 04-19-2024 13:28-0400 Diastolic blood pressure 65 mm[Hg] Boubacar Mastrucci 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.HORSE SHOER Work Phone: [facility] 04-19-2024 13:28-0400 Heart rate 92 /min Boubacar Mastrucci 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.HORSE SHOER Work Phone: [facility] 04-19-2024 13:28-0400 Respiratory rate 14 /min Boubacar Mastrucci 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.HORSE SHOER Work Phone: [facility] 04-19-2024 13:28-0400 SaO2% (BldA) [Mass fraction] 98 % Boubacar Mastrucci 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.HORSE SHOER Work Phone: [facility] 04-19-2024 13:28-0400 Systolic blood pressure 98 mm[Hg] Boubacar Mastrucci 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.HORSE SHOER Work Phone: [facility] 04-03-2024 08:03-0400 Body height 152.4 cm Daniel Mauro MD Work Phone: [facility] 04-03-2024 08:03-0400 Body mass index (BMI) [Ratio] 20.67 kg/m2 Daniel Mauro MD Work Phone: [facility] 04-03-2024 08:03-0400 Body weight 48 kg Daniel Mauro MD Work Phone: [facility] 04-03-2024 08:03-0400 Diastolic blood pressure 78 mm[Hg] Daniel Mauro MD Work Phone: [facility] 04-03-2024 08:03-0400 Heart rate 73 /min Daniel Mauro MD Work Phone: [facility] 04-03-2024 08:03-0400 Systolic blood pressure 112 mm[Hg] Daniel Mauro MD Work Phone: [facility] 03-29-2024 14:30-0400 Body height 152.4 cm Ramses Pyle MD Work Phone: [facility] 03-29-2024 14:30-0400 Body mass index (BMI) [Ratio] 20.55 kg/m2 Ramses Pyle MD Work Phone: [facility] 03-29-2024 14:30-0400 Body weight 47.72 kg Ramses Pyle MD Work Phone: [facility] 03-29-2024 14:30-0400 Diastolic blood pressure 65 mm[Hg] Ramses Pyle MD Work Phone: [facility] 03-29-2024 14:30-0400 Heart rate 84 /min Ramses Pyle MD Work Phone: [facility] 03-29-2024 14:30-0400 Respiratory rate 12 /min Ramses Pyle MD Work Phone: [facility] 03-29-2024 14:30-0400 SaO2% (BldA) [Mass fraction] 99 % Ramses Pyle MD Work Phone: [facility] Comment on above: room air 03-29-2024 14:30-0400 Systolic blood pressure 116 mm[Hg] Ramses Pyle MD Work Phone: [facility] 03-29-2024 10:44-0400 Body height 152.4 cm Boubacar Mastrucci 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.HORSE SHOER Work Phone: [facility] 03-29-2024 10:44-0400 Body mass index (BMI) [Ratio] 21.29 kg/m2 Boubacar Mastrucci 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.HORSE SHOER Work Phone: [facility] 03-29-2024 10:44-0400 Body weight 49.44 kg Boubacar Mastrucci 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.HORSE SHOER Work Phone: [facility] 03-29-2024 10:44-0400 Diastolic blood pressure 76 mm[Hg] Boubacar Mastrucci 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.HORSE SHOER Work Phone: [facility] 03-29-2024 10:44-0400 Heart rate 98 /min Boubacar Mastrucci 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.HORSE SHOER Work Phone: [facility] 03-29-2024 10:44-0400 Respiratory rate 16 /min Boubacar Mastrucci 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.HORSE SHOER Work Phone: [facility] 03-29-2024 10:44-0400 SaO2% (BldA) [Mass fraction] 100 % Boubacar Mastrucci 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.HORSE SHOER Work Phone: [facility] 03-29-2024 10:44-0400 Systolic blood pressure 116 mm[Hg] Boubacar Mastrucci 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.HORSE SHOER Work Phone: [facility] 03-23-2024 10:40-0400 Diastolic blood pressure 72 mm[Hg] Nicola Click 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.HORSE SHOER Work Phone: [facility] 03-23-2024 10:40-0400 Heart rate 77 /min Nicola Click 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.HORSE SHOER Work Phone: [facility] 03-23-2024 10:40-0400 SaO2% (BldA) [Mass fraction] 97 % Nicola Click 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.HORSE SHOER Work Phone: [facility] 03-23-2024 10:40-0400 Systolic blood pressure 116 mm[Hg] Incola Click 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.HORSE SHOER Work Phone: [facility] 03-14-2024 09:44-0400 Body height 152.4 cm Jessica DeRita 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 - HORSE SHOER Work Phone: [facility] 03-14-2024 09:44-0400 Body mass index (BMI) [Ratio] 21.13 kg/m2 Jessica DeRita 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 - HORSE SHOER Work Phone: [facility] 03-14-2024 09:44-0400 Body weight 49.08 kg Jessica DeRita 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 - HORSE SHOER Work Phone: [facility] 03-14-2024 09:44-0400 Diastolic blood pressure 73 mm[Hg] Jessica DeRita 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 - HORSE SHOER Work Phone: [facility] 03-14-2024 09:44-0400 Heart rate 77 /min Jessica DeRita 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 - HORSE SHOER Work Phone: [facility] 03-14-2024 09:44-0400 SaO2% (BldA) [Mass fraction] 98 % Jessica DeRita 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 - HORSE SHOER Work Phone: [facility] 03-14-2024 09:44-0400 Systolic blood pressure 114 mm[Hg] Jessica DeRita 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 - HORSE SHOER Work Phone: [facility] 03-13-2024 13:51-0400 Body height 152.4 cm Boubacar Mastrucci 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.HORSE SHOER Work Phone: [facility] 03-13-2024 13:51-0400 Body mass index (BMI) [Ratio] 21.29 kg/m2 Boubacar Mastrucci 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.HORSE SHOER Work Phone: [facility] 03-13-2024 13:51-0400 Body weight 49.44 kg Boubacar Mastrucci 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.HORSE SHOER Work Phone: [facility] 03-13-2024 13:51-0400 Diastolic blood pressure 65 mm[Hg] Boubacar Mastrucci 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.HORSE SHOER Work Phone: [facility] 03-13-2024 13:51-0400 Heart rate 96 /min Boubacar Mastrucci 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.HORSE SHOER Work Phone: [facility] 03-13-2024 13:51-0400 Respiratory rate 16 /min Boubacar Mastrucci 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.HORSE SHOER Work Phone: [facility] 03-13-2024 13:51-0400 SaO2% (BldA) [Mass fraction] 98 % Boubacar Mastrucci 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.HORSE SHOER Work Phone: [facility] 03-13-2024 13:51-0400 Systolic blood pressure 111 mm[Hg] Boubacar Mastrucci 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.HORSE SHOER Work Phone: [facility] 03-01-2024 12:00-0400 Diastolic blood pressure 59 mm[Hg] Boo Dorantes MD Work Phone: [facility] 03-01-2024 12:00-0400 Heart rate 97 /min Boo Dorantes MD Work Phone: [facility] 03-01-2024 12:00-0400 SaO2% (BldA) [Mass fraction] 97 % Boo Dorantes MD Work Phone: [facility] 03-01-2024 12:00-0400 Systolic blood pressure 109 mm[Hg] Boo Dorantes MD Work Phone: [facility] 03-01-2024 08:00-0400 Body temperature 97.81 [degF] Boo Dorantes MD Work Phone: [employer] 03-01-2024 08:00-0400 Respiratory rate 18 /min Boo Dorantes MD Work Phone: [employer] [facility] 02-29-2024 15:07-0400 Body height 152.4 cm Boo Dorantes MD Work Phone: [employer] [facility] 02-29-2024 15:07-0400 Body mass index (BMI) [Ratio] 20.51 kg/m2 Boo Dorantes MD Work Phone: [facility] 02-29-2024 15:07-0400 Body weight 47.63 kg Boo Dorantes MD Work Phone: [facility] 02-16-2024 08:41-0400 Body height 152.4 cm Boubacar Mastrucci 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.HORSE SHOER Work Phone: [facility] 02-16-2024 08:41-0400 Body mass index (BMI) [Ratio] 20.7 kg/m2 Boubacar Mastrucci 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.HORSE SHOER Work Phone: [facility] 02-16-2024 08:41-0400 Body weight 48.08 kg Boubacar Mastrucci 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.HORSE SHOER Work Phone: [facility] 02-16-2024 08:41-0400 Diastolic blood pressure 79 mm[Hg] Boubacar Mastrucci 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.HORSE SHOER Work Phone: [facility] 02-16-2024 08:41-0400 Heart rate 79 /min Boubacar Mastrucci 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.HORSE SHOER Work Phone: [facility] 02-16-2024 08:41-0400 Respiratory rate 16 /min Boubacar Mastrucci 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.HORSE SHOER Work Phone: [facility] 02-16-2024 08:41-0400 SaO2% (BldA) [Mass fraction] 98 % Boubacar Mastrucci 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.HORSE SHOER Work Phone: [facility] 02-16-2024 08:41-0400 Systolic blood pressure 116 mm[Hg] Boubacar Mastrucci 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.HORSE SHOER Work Phone: [facility] 01-17-2024 11:23-0400 Body height 152.4 cm Diann Andrew 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 - HORSE SHOER Work Phone: [facility] 01-17-2024 11:23-0400 Body mass index (BMI) [Ratio] 20.51 kg/m2 Diann Andrew 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 - HORSE SHOER Work Phone: [facility] 01-17-2024 11:23-0400 Body temperature 97.9 [degF] Diann Andrew 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 - HORSE SHOER Work Phone: [facility] 01-17-2024 11:23-0400 Body weight 47.63 kg Diann Andrew 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 - HORSE SHOER Work Phone: [facility] 01-17-2024 11:23-0400 Diastolic blood pressure 61 mm[Hg] Diann Andrew 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 - HORSE SHOER Work Phone: [facility] 01-17-2024 11:23-0400 Heart rate 83 /min Diann Andrew 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 - HORSE SHOER Work Phone: [facility] 01-17-2024 11:23-0400 SaO2% (BldA) [Mass fraction] 100 % Diann Andrew 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 - HORSE SHOER Work Phone: [facility] 01-17-2024 11:23-0400 Systolic blood pressure 107 mm[Hg] Diann Andrew 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 - HORSE SHOER Work Phone: [facility] 11-08-2023 09:35-0400 Diastolic blood pressure 78 mm[Hg] Beau Thurman MD Work Phone: [facility] 11-08-2023 09:35-0400 Heart rate 84 /min Beau Thurman MD Work Phone: [facility] 11-08-2023 09:35-0400 SaO2% (BldA) [Mass fraction] 94 % Beau Thurman MD Work Phone: [facility] 11-08-2023 09:35-0400 Systolic blood pressure 101 mm[Hg] Beau Thurman MD Work Phone: [facility] 08-25-2023 07:41-0500 Body height 152.4 cm Wenceslao Gaitan APRN.CNM Work Phone: [facility] 08-25-2023 07:41-0500 Body weight 47.9 kg Wenceslao Bullardniles LARA.CNM Work Phone: [facility] 08-25-2023 07:41-0500 Diastolic blood pressure 68 mm[Hg] Wenceslao Gaitan MARCO.CNM Work Phone: [facility] 08-25-2023 07:41-0500 Heart rate 85 /min Wenceslaokike Gaitan APRN.CNM Work Phone: [facility] 08-25-2023 07:41-0500 Systolic blood pressure 104 mm[Hg] Wenceslao Bullardniles LARA.CNM Work Phone: [facility] 08-11-2023 08:08-0500 Body height 152.4 cm Sanjana Chamberlain MD Work Phone: [facility] 08-11-2023 08:08-0500 Body weight 48.3 kg Sanjana Chamberlain MD Work Phone: [facility] 08-11-2023 08:08-0500 Diastolic blood pressure 58 mm[Hg] Sanjana Chamberlain MD Work Phone: [facility] 08-11-2023 08:08-0500 Systolic blood pressure 110 mm[Hg] Sanjana Chamberlain MD Work Phone: [facility] 06-23-2023 12:22-0500 Body height 152.4 cm Kimi Dominguez NP Work Phone: [facility] 06-23-2023 12:22-0500 Body mass index (BMI) [Ratio] 19.53 kg/m2 Kimi Dominguez [employer] TE[employer] Work Phone: [facility] 06-23-2023 12:22-0500 Body temperature 97.5 [degF] Kimi Dominguez NP Work Phone: [facility] 06-23-2023 12:22-0500 Body weight 45.36 kg Kimi Dominguez NP Work Phone: [facility] 06-23-2023 12:22-0500 Diastolic blood pressure 82 mm[Hg] Kimi Lance 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 - [employer] Work Phone: [facility] 06-23-2023 12:22-0500 Heart rate 80 /min Kimi Lance 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 - [employer] TE[employer]ER Work Phone: [facility] 06-23-2023 12:22-0500 SaO2% (BldA) [Mass fraction] 99 % Kimi Lance 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 - [employer] TE[employer]ER Work Phone: [facility] 06-23-2023 12:22-0500 Systolic blood pressure 110 mm[Hg] Kimi Lanec 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 - [employer] TE[employer]ER Work Phone: [facility] 03-10-2023 13:01-0400 Body height 152.4 cm Chrystal Ballard MD Work Phone: [facility] 03-10-2023 13:01-0400 Body temperature 98.4 [degF] Chrystal Ballard MD Work Phone: [facility] 03-10-2023 13:01-0400 Body weight 49.58 kg Chrystal Ballard MD Work Phone: [facility] 03-10-2023 13:01-0400 Diastolic blood pressure 73 mm[Hg] Chrystal Ballard MD Work Phone: [facility] 03-10-2023 13:01-0400 Heart rate 95 /min Chrystal Ballard MD Work Phone: [facility] 03-10-2023 13:01-0400 Respiratory rate 20 /min Chrystal Ballard MD Work Phone: [facility] 03-10-2023 13:01-0400 SaO2% (BldA) [Mass fraction] 97 % Chrystal Ballard MD Work Phone: [facility] 03-10-2023 13:01-0400 Systolic blood pressure 113 mm[Hg] Chrystal Ballard MD Work Phone: [facility] 08-03-2023 15:54-0400 Body temperature 98.01 [degF] Daniel Guerrero DO Work Phone: [facility] 02-10-2023 15:54-0400 Body weight 48.35 kg Daniel Guerrero DO Work Phone: [facility] 02-10-2023 15:54-0400 Diastolic blood pressure 78 mm[Hg] Daniel Guerrero DO Work Phone: [facility] 02-10-2023 15:54-0400 Heart rate 91 /min Daniel Guerrero DO Work Phone: [facility] 02-10-2023 15:54-0400 Respiratory rate 18 /min Daniel Guerrero DO Work Phone: [facility] 02-10-2023 15:54-0400 SaO2% (BldA) [Mass fraction] 100 % Daniel Caicedouilar DO Work Phone: [facility] 02-10-2023 15:54-0400 Systolic blood pressure 114 mm[Hg] Daniel Guerrero DO Work Phone: [facility] 11-18-2022 08:37-0400 Body height 154.9 cm Ayaka Betty PA-C Work Phone: [facility] 11-18-2022 08:37-0400 Body weight 48.08 kg Ayaka Betty PA-C Work Phone: [facility] 11-18-2022 08:37-0400 Diastolic blood pressure 58 mm[Hg] Ayaka Betty PA-C Work Phone: [facility] 11-18-2022 08:37-0400 Heart rate 87 /min Ayaka Betty PA-C Work Phone: [facility] 11-18-2022 08:37-0400 Respiratory rate 12 /min Ayaak Betty PA-C Work Phone: [facility] 11-18-2022 08:37-0400 SaO2% (BldA) [Mass fraction] 96 % Ayaka Betty PA-C Work Phone: [facility] 11-18-2022 08:37-0400 Systolic blood pressure 112 mm[Hg] Ayaka Guone PA-C Work Phone: [facility] 11-18-2022 08:25-0400 Body height 154.9 cm Pulm Wstr Work Phone: [facility] 11-18-2022 08:25-0400 Body weight 48.08 kg Pulm Wstr Work Phone: [facility] 11-18-2022 08:25-0400 Heart rate 87 /min Pulm Wstr Work Phone: [facility] 11-18-2022 08:25-0400 Respiratory rate 12 /min Pulm Wstr Work Phone: [facility] 11-18-2022 08:25-0400 SaO2% (BldA) [Mass fraction] 96 % Pulm Wstr Work Phone: [facility] 10-22-2022 08:29-0400 Body weight 48.63 kg Ayaka Betty PA-C Work Phone: [facility] 10-22-2022 08:29-0400 Heart rate 105 /min Ayaka Betty PA-C Work Phone: [facility] 10-22-2022 08:29-0400 SaO2% (BldA) [Mass fraction] 98 % Ayaka Betty PA-C Work Phone: [facility] 10-07-2022 09:54-0400 Body height 152.4 cm Sanjana Chamberlain MD Work Phone: [facility] 10-07-2022 09:54-0400 Body weight 49.9 kg Sanjana Chamberlain MD Work Phone: [facility] 10-07-2022 09:54-0400 Diastolic blood pressure 64 mm[Hg] Sanjana Chamberlain MD Work Phone: [facility] 10-07-2022 09:54-0400 Systolic blood pressure 98 mm[Hg] Sanjana Chamberlain MD Work Phone: [facility] 01-20-2022 19:15-0400 Body height 152.4 cm Rita Iqbal Other [facility] Other 01-20-2022 19:15-0400 Body mass index (BMI) [Ratio] 18.16 kg/m2 Rita Iqbal Other [facility] Other 01-20-2022 19:15-0400 Body temperature 99.9 [degF] Rita Iqbal Other [facility] Other 01-20-2022 19:15-0400 Body weight 42.18 kg Rita Iqbal Other [facility] Other 01-20-2022 19:15-0400 Respiratory rate 18 /min Rita Iqbal Other [facility] Other 01-20-2022 19:15-0400 SaO2% (BldA) [Mass fraction] 99 % Rita Iqbal Other [facility] Other 01-05-2022 00:33-0400 Body height 152.4 cm King MD Work Phone: [employer] 01-05-2022 00:33-0400 Body mass index (BMI) [Ratio] 17.97 kg/m2 King MD Work Phone: [employer] 01-05-2022 00:33-0400 Body temperature 98.01 [degF] King MD Work Phone: [employer] 01-05-2022 00:33-0400 Body weight 41.73 kg King MD Work Phone: [facility] 01-05-2022 00:33-0400 Diastolic blood pressure 61 mm[Hg] King MD Work Phone: [facility] 01-05-2022 00:33-0400 Heart rate 100 /min King MD Work Phone: [facility] 01-05-2022 00:33-0400 Respiratory rate 20 /min King MD Work Phone: [facility] 01-05-2022 00:33-0400 SaO2% (BldA) [Mass fraction] 99 % King MD Work Phone: [facility] 01-05-2022 00:33-0400 Systolic blood pressure 134 mm[Hg] King MD Work Phone: [facility] 10-12-2021 14:00-0400 Body weight 44.45 kg Daniel Mauro MD Work Phone: [facility] 10-12-2021 14:00-0400 Diastolic blood pressure 78 mm[Hg] Daniel Mauro MD Work Phone: [facility] 10-12-2021 14:00-0400 Heart rate 66 /min Daniel Mauro MD Work Phone: [facility] 10-12-2021 14:00-0400 Systolic blood pressure 104 mm[Hg] Daniel Mauro MD Work Phone: [facility] 10-13-2020 14:48-0400 BP Diastolic 63 mm[Hg] Sailaja Zhang [facility] Work Phone: 10-13-2020 14:48-0400 BP Systolic 99 mm[Hg] Sailaja Zhang [facility] Work Phone: 10-13-2020 14:48-0400 Pulse (Heart Rate) 80 /min Sailaja Zhang [facility] Work Phone: 10-13-2020 14:48-0400 Pulse Oximetry 100 % Sailaja Zhang [facility] Work Phone: 10-13-2020 14:48-0400 Respiratory Rate 15 /min Sailaja JAUREGUIA Work Phone: 10-13-2020 12:55-0400 BMI (Body Mass Index) 18.36 kg/m2 Sailaja Joshion [facility] Work Phone: 10-13-2020 12:55-0400 Body Temperature 97.7 [degF] Sailaja JAUREGUIA Work Phone: 10-13-2020 12:55-0400 Body weight 42.64 kg Sailaja JAUREGUIA Work Phone: 10-13-2020 12:55-0400 Height 152.4 cm Sailaja JAUREGUIA Work Phone: 09-11-2020 18:48-0500 BP Diastolic 60 mm[Hg] Francesca Adelina SHANIAA Work Phone: 09-11-2020 18:48-0500 BP Systolic 90 mm[Hg] Francesca Adelina SH[facility] Work Phone: 09-11-2020 18:48-0500 Pulse (Heart Rate) 80 /min Francesca Arriazas SH[facility] Work Phone: 09-11-2020 18:48-0500 Pulse Oximetry 99 % Francesca Arriazas SH[facility] Work Phone: 09-11-2020 18:48-0500 Respiratory Rate 16 /min Francesca Adelina SHANIAA Work Phone: 09-11-2020 15:57-0500 BMI (Body Mass Index) 19.14 kg/m2 Francesca Adelina SH[facility] Work Phone: 09-11-2020 15:57-0500 Body Temperature 97 [degF] Francesca Adelina SH[facility] Work Phone: 09-11-2020 15:57-0500 Body weight 44.45 kg Francesca Adelina SH[facility] Work Phone: 09-11-2020 15:57-0500 Height 152.4 cm Francesca Adelina SHANIAA Work Phone: 07-14-2018 15:51-0500 BMI (Body Mass Index) 20.31 kg/m2 [facility] 07-14-2018 15:51-0500 Body Temperature 98.49 [degF] [facility] 07-14-2018 15:51-0500 BP Diastolic 79 mm[Hg] [facility] 07-14-2018 15:51-0500 BP Systolic 126 mm[Hg] [facility] 07-14-2018 15:51-0500 Height 152.[address] [facility] 07-14-2018 15:51-0500 Pulse (Heart Rate) 93 /min [facility] 07-14-2018 15:51-0500 Pulse Oximetry 98 % [facility] 07-14-2018 15:51-0500 Respiratory Rate 16 /min [facility] 07-14-2018 15:51-0500 Weight 47.[address] [facility] Encounters Encounter Date Encounter Type Care Provider Facility Start: 05-01-2025 End: 05-01-2025 ambulatory DANIEL GUERRERO Facility:[facility] Start: 04-24-2025 End: 04-24-2025 ambulatory DANIEL GUERRERO Facility:[facility] Start: 04-15-2025 ambulatory DANIEL HINSELAR Facil ity:[facility] Start: 04-02-2025 End: 04-02-2025 ambulatory DANIEL GUERRERO Facility:[facility] Start: 03-28-2025 ambulatory DANIEL MEDINAR Facil ity:[facility] Start: 03-26-2025 End: 03-26-2025 ambulatory ALBA ROMAN Facility:[facility] Start: 03-26-2025 End: 03-26-2025 Patient encounter procedure Alba Roman APRN.CNP Work Phone: [facility] Comment on above: POTS (postural ortho static tachycardia syndrome) (Primary Dx); Exercise counseling; Tachycardia; Syncope, unspecified syncope type; Brain fog; Palpitations; Sinus tachycardia; Physical deconditioning; DU (dyspnea on exertion); Counseling on health promotion and disease prevention; Need for home exercise program Start: 03-19-2025 End: 03-19-2025 Orders Only Yuan Schafer MD Work Phone: Cardiology Comment on above: Tachycardia (Primary Dx); POTS (postural orthostatic tachycardia syndrome) Palpitations; POTS (postural orthostatic tachycardia syndrome); Sinus tachycardia Cognitive communicat ion deficit (Primary Dx); Dysphagia, unspecified type; Dizziness and giddiness; Post-acute sequelae of COVID-19 (PASC); Brain fog; Memory change Start: 03-18-2025 End: 03-18-2025 Patient encounter procedure Liz Burns -[facility] Work Phone: Start: 03-18-2025 End: 03-18-2025 ambulatory Out of [facility] Doctor -[facility] Start: 03-14-2025 End: 03-14-2025 ambulatory DANIEL GUERRERO Facility:[facility] Start: 03-14-2025 End: 03-14-2025 Patient encounter procedure Daniel Guerrero DO Work Phone: [facility] Comment on above: Routine physical exa mination (Primary Dx); PCOS (polycystic ovarian syndrome); POTS (postural orthostatic tachycardia syndrome); Esophageal spasm; Insulin resistance; Chronic interstitial cystitis; Family history of diabetes mellitus; Family history of atrial fibrillation Start: 03-14-2025 End: 03-14-2025 Physical examination Daniel Guerrero DO Work Phone: [facility] Work Phone: Start: 03-05-2025 End: 03-05-2025 ambulatory Laxmi Camargo PT Neurology PT Outpati ent [facility] Start: 03-05-2025 End: 03-05-2025 Patient encounter procedure Laxmi Camargo PT Neurology PT Outpatient [facility] Comment on above: POTS (postural ortho static tachycardia syndrome) (Primary Dx); Dizziness Start: 02-27-2025 End: 02-27-2025 Telemedicine consultation with patient [facility] Work Phone: Functional Medicine Start: 02-27-2025 End: 02-27-2025 ambulatory [facility] ED Work Phone: Functional Medicine Comment on above: Encounter for person encountering health services (Primary Dx) Start: 02-26-2025 End: 02-26-2025 Patient encounter procedure Alex De Luna -[facility] Work Phone: Start: 02-26-2025 End: 02-26-2025 ambulatory Out of Town Doctor -[facility] Start: 02-14-2025 End: 02-14-2025 ambulatory CHERRI NEWMAN Facility[facility] Start: 02-13-2025 End: 02-13-2025 ambulatory DANIEL GUERRERO Facility:[facility] Start: 02-13-2025 End: 02-13-2025 ambulatory DANIEL GUERRERO Facility:[facility] Start: 02-12-2025 End: 02-26-2025 Telephone encounter Aliza Boyd MD Work Phone: [facility] Comment on above: Appointment (Follow- up) Start: 02-12-2025 End: 02-12-2025 ambulatory ALIZA BOYD [facility] Start: 02-11-2025 End: 02-11-2025 Orders Only Daniel Guerrero DO Work Phone: [facility] Comment on above: Esophageal dysphagia (Primary Dx); Esophageal spasm; Gastroesophageal reflux disease with esophagitis without hemorrhage Start: 02-08-2025 End: 02-11-2025 Follow-up encounter Aliza Boyd MD Work Phone: [facility] Start: 02-05-2025 End: 02-05-2025 ambulatory DANIEL GUERRERO [facility] Start: 01-28-2025 End: 01-28-2025 ambulatory DANIEL GUERRERO Facility:[facility] Start: 01-24-2025 End: 01-24-2025 ambulatory ALIZA BOYD [facility] Start: 01-24-2025 End: 01-24-2025 Patient encounter procedure Aliza Boyd MD Work Phone: [facility] End[facility] Comment on above: PCOS (polycystic ova zohaib syndrome) (Primary Dx); Primary oligomenorrhea Start: 01-24-2025 End: 01-24-2025 Telemedicine consultation with patient Aliza Boyd MD Work Phone: [facility] Start: 01-22-2025 ambulatory DANIEL GUERRERO Facil ity:[facility] Start: 01-22-2025 End: 01-22-2025 Subsequent hospital visit by physician Diagnostic Mammo [facility] Comment on above: Arrived Start: 01-20-2025 End: 01-21-2025 Refill Daniel Guerrero DO Work Phone: [facility] Comment on above: Refill Request Start: 01-18-2025 End: 01-21-2025 ambulatory Daniel Guerrero DO Work Phone: [facility] Start: 01-18-2025 End: 01-21-2025 Patient encounter procedure Daniel Guerrero DO Work Phone: [facility] Comment on above: Blood tests Start: 01-16-2025 End: 01-16-2025 Telemedicine consultation with patient [facility] ED Work Phone: Functional Medicine Start: 01-16-2025 End: 01-17-2025 Telephone encounter Aliza Boyd MD Work Phone: [facility] Comment on above: Medication Problem ( Medroxyprogesterone ) Start: 01-16-2025 End: 01-16-2025 ambulatory [facility] ED Work Phone: Functional Medicine Comment on above: Encounter for person encountering health services (Primary Dx) Start: 01-15-2025 End: 01-15-2025 Patient encounter procedure Laxmi Camargo PT Neurology PT Outpatient [facility] Comment on above: Dizziness (Primary D x) Start: 01-15-2025 End: 01-15-2025 [facility] Start: 01-07-2025 End: 03-09-2025 Follow-up encounter Makenzie Lynn APRN.HORSE SHOER Work Phone: Gastroenterology Start: 01-07-2025 End: 01-25-2025 Telephone encounter Daniel Suero Guerrero DO Work Phone: [facility] Comment on above: Medication Problem Start: 01-04-2025 End: 03-06-2025 Follow-up encounter Makenzie Lynn APRN.HORSE SHOER Work Phone: Gastroenterology Start: 01-04-2025 End: 01-07-[address] [facility]-[employer] [employer]OV[employer] OPERATOR Work Phone: Speech Therapy [facility] Comment on above: Dizziness and giddin ess (Primary Dx); Post-acute sequelae of COVID-19 (PASC); Brain fog; Memory change; Cognitive communication deficit; Dysphagia, unspecified type Refill Request Start: 01-03-2025 End: 01-03-2025 Subsequent hospital visit by physician [facility] Work Phone: Radiology Comment on above: Diarrhea, unspecifie d type [R19.7] Start: 01-03-2025 End: 01-03-2025 Patient encounter procedure Makenzie Lynn APRN.HORSE SHOER Work Phone: Gastroenterology Comment on above: Diarrhea, unspecifie d type (Primary Dx); Irritable bowel syndrome with both constipation and diarrhea Start: 01-03-2025 End: 01-03-2025 ambulatory MAKENZIE PACK Facility:[facility] Start: 01-02-2025 End: 01-02-2025 Refill Tucker Casarez MD Work Phone: [facility] Comment on above: Refill Request Start: 01-01-2025 End: 01-01-2025 [facility] Start: 01-01-2025 End: 01-01-2025 Patient encounter procedure Uniqua Raman PT Neurology PT Outpatient [facility] Comment on above: Dizziness (Primary D x); POTS (postural orthostatic tachycardia syndrome); Post-acute sequelae of COVID-19 (PASC) Start: 12-31-2024 End: 12-31-2024 Patient encounter procedure Nel Girard MD Work Phone: Functional Medicine Comment on above: Flushing (Primary Dx ); Elevated IgE level; Food intolerance; History of foreign travel; Nutritional deficiency; Dizziness Start: 12-31-2024 End: 12-31-2024 ambulatory NEL GIRARD Facility:[facility] Start: 12-26-2024 End: 12-26-2024 Telemedicine consultation with patient Samra Rose 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.HORSE SHOER Work Phone: Gastroenterology Start: 12-26-2024 End: 12-26-2024 ambulatory Samra Rose 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.HORSE SHOER Work Phone: Gastroenterology Comment on above: Esophageal spasm Start: 12-25-2024 End: 12-25-2024 Telephone encounter Katy Gant MD Work Phone: [facility][Note 2] Comment on above: Schedule Surgery Start: 12-24-2024 End: 12-24-2024 Telemedicine consultation with patient Katy Gant MD Work Phone: OB/Gynecology Start: 12-24-2024 End: 12-24-2024 ambulatory Katy Gant MD Work Phone: OB/Gynecology Comment on above: Endometrial polyp (P rimary Dx); PCOS (polycystic ovarian syndrome); Abnormal uterine bleeding (AUB) Start: 12-24-2024 End: 12-24-2024 ambulatory DANIEL GUERRERO Facility:[facility] Start: 12-24-2024 End: 12-24-2024 Patient encounter procedure Praveen Canales MD Work Phone: Pulmonary Medicine Comment on above: Mild intermittent as thma without complication (HCC) (Primary Dx); Disorder of vocal cords; Gastroesophageal reflux disease, unspecified whether esophagitis present Start: 12-21-2024 End: 12-21-2024 [facility] visit, estab pt Cherri Newman RD Work Phone: Functional Medicine Comment on above: Established Patient Start: 12-21-2024 End: 12-21-[address] Work Phone: Functional Medicine Start: 12-13-2024 End: 12-13-2024 Patient encounter procedure Sharlene Means PhD, CCC-[employer]YOL[employer] RECOVERY OPERATOR Work Phone: Otolaryngology Comment on above: Inducible laryngeal obstruction (ILO) (Primary Dx); Gastroesophageal reflux disease, unspecified whether esophagitis present; Dyspnea on exertion Start: 12-13-2024 End: 12-13-2024 ambulatory SHARLENE MEANS Facility[facility] Start: 12-13-2024 End: 02-12-2025 Follow-up encounter Mo Guzman APRN.CNP Work Phone: Neurology Start: 12-12-2024 End: 12-12-2024 Patient encounter procedure Emg 4 Neur Main (Max Weight: 1000) Work Phone: Neurology Start: 12-12-2024 End: 01-10-2025 ambulatory MO GUZMAN Neurology Comment on above: EMG Start: 12-10-2024 End: 12-10-2024 Telephone encounter Daniel Guerrero DO Work Phone: [facility] Comment on above: Orders (Complete ult rasound left breast) Start: 12-06-2024 End: 12-06-2024 Patient encounter procedure Daniel Guerrero DO Work Phone: [facility] Comment on above: POTS (postural ortho static tachycardia syndrome) (Primary Dx); Anxiety; Moderate persistent asthma without complication (HCC); Biceps tendonitis on left; Breast mass in female; Esophageal spasm; Polycystic ovarian syndrome; Seasonal allergic rhinitis due to pollen; Tachycardia Start: 12-06-2024 End: 12-06-2024 Telemedicine consultation with patient Mo Ros MA Work Phone: Neurology Start: 12-06-2024 End: 12-06-2024 ambulatory Mo Guzman APRN.CNP Work Phone: Neurology Comment on above: POTS (postural ortho static tachycardia syndrome) (Primary Dx); Paresthesias; Arm pain, left Start: 12-05-2024 End: 12-05-2024 E-mail encounter from caregiver Mofidelina MylesRostricia MA Work Phone: Neurology Start: 12-05-2024 End: 02-04-2025 Follow-up encounter Nel Girard MD Work Phone: Functional Medicine Start: 12-05-2024 End: 12-05-2024 Patient encounter procedure Mo Guzman APRN.CNP Work Phone: Neurology Comment on above: appointment tomorrow 12/06 Start: 12-04-2024 End: 12-04-2024 ambulatory NEL GIRARD Facility:[facility] Start: 11-30-2024 End: 11-30-2024 ambulatory BENJY LIN [facility] Start: 11-30-2024 End: 11-30-2024 ambulatory NEL GIRARD Facility:[facility] Start: 11-26-2024 End: 01-26-2025 Follow-up encounter Carline Carson APRN.CNP Work Phone: Gynecology Start: 11-26-2024 End: 11-26-2024 Patient encounter procedure Printer Operator [facility] Work Phone: OB/Gynecology Comment on above: Abnormal uterine ble eding (AUB) (Primary Dx); Endometrial polyp; examination or test, unconfirmed Start: 11-26-2024 End: 11-26-2024 ambulatory DANIEL GUERRERO Facility[facility] Start: 11-22-2024 End: 11-22-2024 ambulatory Laxmi Camargo PT Neurology PT Outpati ent [facility] Start: 11-22-2024 End: 11-22-2024 Patient encounter procedure Laxmi Camargo PT Neurology PT Outpatient [facility] Comment on above: Dizziness (Primary D x) Start: 11-21-2024 End: 11-21-2024 Patient encounter procedure Carline Carson APRN.HORSE SHOER Work Phone: Gynecology Comment on above: examinatio n or test, unconfirmed (Primary Dx); Abnormal uterine bleeding (AUB); Prolonged menstruation; Polycystic ovarian syndrome; Postural orthostatic tachycardia syndrome (POTS) Start: 11-21-2024 End: 11-21-2024 ambulatory CARLINE CARSON Facility[facility] Start: 11-15-2024 End: 11-15-2024 Patient encounter procedure Autonomic 1 Neur Main Work Phone: Neurology Start: 11-15-2024 End: 11-15-2024 ambulatory DANIEL GUERRERO Neurology Comment on above: Procedure Start: 11-12-2024 End: 11-20-2024 ambulatory Nicola Teixeira APRN.HORSE SHOER Work Phone: Pulmonary Medicine Comment on above: Concerns around poss ible diaphragm issue Start: 11-08-2024 End: 11-08-2024 ambulatory Kimi Dinero CCC-[employer]YOLITE RECOVERY OPERATOR Work Phone: Speech Therapy [facility] Comment on above: Post-acute sequelae of COVID-19 (PASC) (Primary Dx); Brain fog; Memory change; Cognitive communication deficit; Dysphagia, unspecified type Start: 11-07-2024 End: 11-08-2024 ambulatory Yuan Schafer MD Work Phone: Cardiology Comment on above: Zio Heart Monitor Start: 11-06-2024 End: 11-06-2024 Telemedicine consultation with patient Makenzie Pack MARCO.HORSE SHOER Work Phone: Gastroenterology Start: 11-06-2024 End: 11-06-2024 ambulatory Makenzie Pack MARCO.HORSE SHOER Work Phone: Gastroenterology Comment on above: Irritable bowel synd lacey with both constipation and diarrhea (Primary Dx) Start: 11-05-2024 End: 11-05-2024 Referwin Casarez MD Work Phone: [facility] Comment on above: Refill Request Start: 11-03-2024 End: 11-05-2024 Referwin Casarez MD Work Phone: [facility] Comment on above: Refill Request Start: 11-03-2024 End: 11-05-2024 Korina Casarez MD Work Phone: [facility] Comment on above: Refill Request Start: 11-02-2024 End: 11-02-2024 ambulatory DANIEL GUERRERO Facility[facility] Start: 10-31-2024 End: 12-31-2024 Follow-up encounter Susan Munoz MD Work Phone: [facility] Start: 10-31-2024 End: 10-31-2024 Nutrition therapy Cherri Skylaila GORDON Work Phone: Functional Medicine Comment on above: POTS (postural ortho static tachycardia syndrome) (Primary Dx); Bloating; Food intolerance; Nutritional counseling Start: 10-31-2024 End: 10-31-2024 Telemedicine consultation with patient Cherri Newman HEIDI Work Phone: Functional Medicine Start: 10-31-2024 End: 10-31-2024 ambulatory CHERRI NEWMAN Facility[facility] Start: 10-30-2024 End: 10-30-2024 ambulatory APPLE COREY Facility:[facility] Start: 10-30-2024 End: 10-30-2024 Patient encounter procedure Nel Girard MD Work Phone: Functional Medicine Comment on above: POTS (postural ortho static tachycardia syndrome) (Primary Dx); Flushing; Chemical sensitivity; Bloating; Food intolerance; Nutritional deficiency; Personal history of COVID-19; Stress Start: 10-30-2024 End: 10-30-2024 ambulatory APPLE COREY Facility[facility] Start: 10-29-2024 End: 12-29-2024 Follow-up encounter Mo Guzman APRN.CNP Work Phone: Neurology Start: 10-29-2024 End: 10-30-2024 Korina Casarez MD Work Phone: [facility] Comment on above: Med Change Request Start: 10-25-2024 End: 10-25-2024 Patient encounter procedure Autonomic 1 Neur Main Work Phone: Neurology Start: 10-25-2024 End: 10-25-2024 ambulatory DANIEL GUERRERO Neurology Comment on above: Procedure Start: 10-22-2024 End: 10-22-2024 E-mail encounter from caregiver Yang Workman [place] Work Phone: [facility] (ENT) Start: 10-22-2024 End: 10-22-2024 Patient encounter procedure Blessing Kyle AUD [facility] Speech Therapy Comment on above: Dizziness and giddin ess (Primary Dx) VNG results Start: 10-22-2024 End: 10-22-2024 ambulatory BLESSING KYLE Facility:[facility] Start: 10-12-2024 End: 10-12-2024 Orders Only Yuan Schafer MD Work Phone: Cardiology Comment on above: Tachycardia (Primary Dx) Start: 10-12-2024 End: 10-12-2024 Refill Ramses Pyle MD Work Phone: [facility] Cardiology Comment on above: Refill Request Start: 10-11-2024 End: 10-11-2024 Telephone encounter Milla Hein DO Work Phone: Neurology Comment on above: Medication Problem Start: 10-11-2024 End: 10-11-2024 Patient encounter procedure Daniel Guerrero DO Work Phone: [facility] [place] Comment on above: Hospital discharge f ollow-up (Primary Dx); POTS (postural orthostatic tachycardia syndrome); Moderate persistent asthma without complication (HCC); Anxiety; Seasonal allergic rhinitis due to pollen; Screening for depression; Biceps tendonitis on left; Chronic interstitial cystitis; Gastroesophageal reflux disease without esophagitis; Esophageal spasm Start: 10-11-2024 End: 10-11-2024 ambulatory DANIEL GUERRERO Facility:[facility] Start: 10-09-2024 End: 10-12-2024 ambulatory Yuan Schafer MD Work Phone: Cardiology Comment on above: Hospital Stay & Medi cation Update Start: 10-08-2024 End: 10-09-2024 ambulatory Aashish Skinner RN Work Phone: [facility] Start: 10-08-2024 End: 10-08-2024 Home visit Aashish Skinner RN Work Phone: [facility] Comment on above: Initial phone contac t for Transitional Care Management Start: 10-08-2024 End: 10-09-2024 Telephone encounter [facility] Comment on above: Transition Of Care ( TCM Pharmacy-Hospital discharge 10/07/24) Start: 10-02-2024 End: 10-07-2024 Evaluation and management of inpatient DANIEL Suero CESAR Facility:[facility] Start: 10-01-2024 End: 10-02-2024 Emergency department patient visit DANIEL Suero CESAR Facility:[facility] Start: 10-01-2024 End: 10-01-2024 Admission to [facility] Intake Start: 10-01-2024 End: 10-01-2024 ambulatory Gustavo Rajput DESKTOP TECHNICIAN [facility] Comment on above: Anxiety Start: 10-01-2024 End: 10-01-2024 Patient encounter procedure Gustavo Rajput LPN [facility] Start: 09-28-2024 End: 09-29-2024 Emergency department patient visit DANIEL Pio CESAR Facility:[facility] Start: 09-28-2024 End: 09-28-2024 ambulatory APPLE GRADY Facility:[facility] Start: 09-28-2024 End: 09-28-2024 Patient encounter procedure Fely Garcia APRN.CNS Work Phone: Allergy Comment on above: Moderate persistent asthma without complication (Primary Dx); Inducible laryngeal obstruction (ILO); Gastroesophageal reflux disease, unspecified whether esophagitis present; SVT (supraventricular tachycardia) (HCC); Seasonal allergic rhinitis due to pollen; Allergic rhinitis due to dust mite; Allergic rhinitis due to animal hair and dander; Allergic rhinitis due to mold; Chronic idiopathic urticaria Start: 09-27-2024 End: 09-27-2024 ambulatory APPLE GRADY Facility:[facility] Start: 09-27-2024 End: 09-27-2024 Patient encounter procedure Apple Grady PA-C Work Phone: [facility] Comment on above: POTS (postural ortho static tachycardia syndrome) (Primary Dx); Palpitations; Tachycardia; Brain fog; Memory change Start: 09-26-2024 End: 09-26-2024 ambulatory BEAU THURMAN [facility] Start: 09-19-2024 End: 10-12-2024 ambulatory Samra Rose APRN.HORSE SHOER Work Phone: Gastroenterology Comment on above: Esophageal spasm (Pr imary Dx) Ivabradine Question Start: 09-19-2024 End: 09-19-2024 Telemedicine consultation with patient Samra Rose APRN.HORSE SHOER Work Phone: Gastroenterology Start: 09-17-2024 End: 09-17-2024 ambulatory Laxmi Camargo PT Neurology PT Outpati ent [facility] Start: 09-17-2024 End: 09-17-2024 Patient encounter procedure Laxmi Camargo PT Neurology PT Outpatient [facility] Comment on above: Dizziness (Primary D x) Start: 09-17-2024 End: 09-17-2024 ambulatory Kimi Dinero CCC-CRYOLITE RECOVERY OPERATOR Work Phone: Speech Therapy [facility] Comment on above: Brain fog (Primary D x); Cognitive communication deficit; Memory change; Post-acute sequelae of COVID-19 (PASC) Start: 09-17-2024 End: 09-17-2024 ambulatory SHARLENE MEANS Facility:[facility] Start: 09-17-2024 End: 09-17-2024 Patient encounter procedure Sharlene Means PhD, CCC-CRYOLITE RECOVERY OPERATOR Work Phone: Otolaryngology Comment on above: Inducible laryngeal obstruction (ILO) (Primary Dx); Gastroesophageal reflux disease, unspecified whether esophagitis present; Dyspnea on exertion Start: 09-13-2024 End: 09-13-2024 Telemedicine consultation with patient Ramses Pyle MD Work Phone: [facility] [place] Start: 09-13-2024 End: 09-13-2024 ambulatory Ramses Pyle MD Work Phone: [facility] Cardiology [place] Comment on above: Syncope, unspecified syncope type (Primary Dx); Dizziness and giddiness; Migraine with aura and without status migrainosus, not intractable Start: 09-13-2024 End: 09-13-2024 Patient encounter procedure Mo Guzman APRN.HORSE SHOER Work Phone: Neurology Comment on above: POTS (postural ortho static tachycardia syndrome) (Primary Dx); Tachycardia; Burning sensation Start: 09-10-2024 End: 09-10-2024 Chart abstracting Yuan Schafer MD Work Phone: Cardiology Start: 09-10-2024 End: 09-10-2024 E-mail encounter from caregiver Beau Thurman MD Work Phone: Urology Start: 09-10-2024 End: 11-10-2024 Follow-up encounter Yuan Schafer MD Work Phone: Cardiology Start: 09-10-2024 End: 09-10-2024 Patient encounter procedure Beau Thurman MD Work Phone: Urology Comment on above: Appointment Request Start: 09-10-2024 End: 09-10-2024 Telephone encounter Yuan Schafer MD Work Phone: Cardiology Start: 09-05-2024 End: 09-05-2024 ambulatory [facility] Facility:[facility] Start: 09-05-2024 End: 09-05-2024 Patient encounter procedure Rubi LYNN Work Phone: [facility] Ear, Nose, and Throat (ENT) Comment on above: Tinnitus, bilateral (Primary Dx); Dizziness; Post-acute sequelae of COVID-19 (PASC); Auditory complaints of left ear Bilateral impacted c erumen; Tinnitus, bilateral; Ear pressure, left; Dysequilibrium Start: 09-04-2024 End: 09-10-2024 Follow-up encounter Fely Lenny ATKINSONCOMPUTER OPERATIONS MANAGER Work Phone: Allergy Start: 09-04-2024 End: 09-04-2024 ambulatory YUAN SCHAFER Facility:[facility] Start: 09-04-2024 End: 09-04-2024 ambulatory CONCEPCION TOTH Facility:[facility] Start: 09-04-2024 End: 09-04-2024 Patient encounter procedure Concepcion Toth MD Work Phone: [facility] Cardiology [place] Comment on above: Sinus tachycardia (P rimary Dx) Start: 09-03-2024 End: 09-03-2024 ambulatory MARTHA HASSAN Facility:[facility] Start: 09-03-2024 End: 09-03-2024 Patient encounter procedure Daniel Mauro MD Work Phone: Neurology Comment on above: Tachycardia (Primary Dx); Persistent postural-perceptual dizziness; POTS (postural orthostatic tachycardia syndrome); Raynaud's disease without gangrene Start: 09-01-2024 End: 09-01-2024 Chart abstracting Daniel Mauro MD Work Phone: Neurology Start: 08-31-2024 End: 09-10-2024 ambulatory Yuan Schafer MD Work Phone: Cardiology Comment on above: Ivabradine & Amitrip tyline drug interactions concerns Start: 08-30-2024 End: 08-30-2024 ambulatory YUAN SCHAFER Facility:[facility] Start: 08-30-2024 End: 08-30-2024 Patient encounter procedure Yuan Schafer MD Work Phone: Cardiology Comment on above: Sinus tachycardia (P rimary Dx); Palpitations; POTS (postural orthostatic tachycardia syndrome) Start: 08-30-2024 End: 08-31-2024 ambulatory [facility] Work Phone: Cardiology Comment on above: Holter Monitor Appli cation (24-HR) Mast Cell Testing Start: 08-28-2024 End: 08-30-2024 ambulatory Apple Salinas LPN [facility] Start: 08-28-2024 End: 08-30-2024 Patient encounter procedure Apple Salinas DAISY [facility] Comment on above: ED outreach Start: 08-25-2024 End: 08-25-2024 [facility] Joann Maih PhD Work Phone: Neurological [place] Comment on above: Psychological and be havioral factors associated with disorders or diseases classified elsewhere (Primary Dx); persistent postural perceptual vertigo Start: 08-24-2024 End: 08-24-2024 Emergency department patient visit GUNNAR ARMAS Facility:[facility] Start: 08-23-2024 End: 08-23-2024 Office outpatient visit 25 minutes Mratha Hassan PA-C Work Phone: Pulmonology [facility] Comment on above: Shortness of breath (Primary Dx); Moderate persistent asthma without complication; POTS (postural orthostatic tachycardia syndrome); Dizziness; Palpitations; Tachycardia; Chest pain, unspecified type; Headaches; Food intolerance; Brain fog; Memory change; Nerve pain; Post-acute sequelae of COVID-19 (PASC) Start: 08-23-2024 End: 08-24-2024 Orders Only Yuan Schafer MD Work Phone: Cardiology Comment on above: POTS (postural ortho static tachycardia syndrome) (Primary Dx) Tuesday08/20/2024 ER Visit Start: 08-20-2024 End: 08-20-2024 Emergency department patient visit DANIEL GUERRERO Facility:[facility] Start: 08-20-2024 End: 08-20-2024 ambulatory Kimi Dinero CCC-CRYOLITE RECOVERY OPERATOR Work Phone: Speech Therapy [facility] Comment on above: Brain fog (Primary D x); Cognitive communication deficit; Memory change; Post-acute sequelae of COVID-19 (PASC) POTS (postural ortho static tachycardia syndrome) (Primary Dx); Syncope, unspecified syncope type Start: 08-17-2024 End: 08-17-2024 ambulatory APPLE GRADY Facility:[facility] Start: 08-17-2024 End: 08-17-2024 Patient encounter procedure Renato [facility] Comment on above: Headaches (Primary D x); Tachycardia; Chest pain, unspecified type; Nerve pain Start: 08-16-2024 End: 08-20-2024 Telephone encounter Martha Hassan PA-C Work Phone: Pulmonology [facility] Comment on above: Appointment Start: 08-15-2024 End: 08-15-2024 Patient encounter procedure Nieves Smith MD Work Phone: [facility] Rheumatology and Arthritis Comment on above: Pain in joint, multi ple sites (Primary Dx); Malaise and fatigue Post-acute sequelae of COVID-19 (PASC) (Primary Dx); Dizziness; POTS (postural orthostatic tachycardia syndrome) Start: 08-15-2024 End: 08-15-2024 Telemedicine consultation with patient Nieves Smith MD Work Phone: [facility] Rheumatology and Arthritis Start: 08-15-2024 End: 08-15-2024 ambulatory Laxmi Camargo PT Neurology PT Outpati ent [facility] Start: 08-14-2024 End: 08-14-2024 ambulatory Kimi Dinero CCC-CRYOLITE RECOVERY OPERATOR Work Phone: Speech Therapy [facility] Comment on above: Brain fog (Primary D x); Dysphagia, unspecified type; Memory change; Post-acute sequelae of COVID-19 (PASC); Cognitive communication deficit Start: 08-07-2024 End: 08-07-2024 ambulatory SHARLENE MEANS Facility:[facility] Start: 08-07-2024 End: 08-07-2024 Patient encounter procedure Sharlene Means PhD, CCC-CRYOLITE RECOVERY OPERATOR Work Phone: Otolaryngology Comment on above: Inducible laryngeal obstruction (ILO) (Primary Dx); Gastroesophageal reflux disease, unspecified whether esophagitis present; Dyspnea on exertion Start: 08-07-2024 End: 08-07-2024 Patient encounter procedure Daniel Guerrero DO Work Phone: [facility] Family Medicine Comment on above: Left upper quadrant abdominal pain (Primary Dx); Gastroesophageal reflux disease with esophagitis without hemorrhage; Palpitations; Fatigue, unspecified type; Anxiety Start: 08-07-2024 End: 08-07-2024 ambulatory DANIEL CAICEDOUILAR Facility:[facility] Start: 08-07-2024 End: 08-07-2024 Nursing evaluation of patient and report Nurse Sally [facility] [place] Work Phone: [facility] Comment on above: Vitamin B12 deficien cy (Primary Dx) Palpitations (Primar y Dx); POTS (postural orthostatic tachycardia syndrome) Start: 08-07-2024 End: 08-07-2024 [facility] DANIEL CESAR Facility:[facility] Start: 08-06-2024 End: 08-06-2024 Orders Only Samra Rose APRN.CNP Work Phone: Gastroenterology Comment on above: Post-acute sequelae of COVID-19 (PASC) (Primary Dx); Dizziness Start: 08-05-2024 End: 08-06-2024 ambulatory Daniel Suero Cesar STOLL Work Phone: [facility] [place] Start: 08-05-2024 End: 08-06-2024 Patient encounter procedure Daniel Suero Cesar DO Work Phone: [facility] Comment on above: Inflammation/Swellin g in Lower Left Rib Cage Start: 07-30-2024 End: 07-30-2024 ambulatory APPLE GRADY Facility:[facility] Start: 07-30-2024 End: 07-30-2024 Patient encounter procedure Renato [facility] Comment on above: Headaches (Primary D x); Tachycardia; Chest pain, unspecified type; Nerve pain Start: 07-26-2024 End: 07-26-2024 ambulatory DANIEL MAURO Facility:[facility] Start: 07-26-2024 End: 07-26-2024 Patient encounter procedure Apple Grady PA-C Work Phone: [facility] Comment on above: Headaches (Primary D x); Memory change; Brain fog; Dizziness; POTS (postural orthostatic tachycardia syndrome); Palpitations; Tachycardia; Shortness of breath; Moderate persistent asthma without complication; Chest pain, unspecified type; Food intolerance; Nerve pain; Post-acute sequelae of COVID-19 (PASC); Vitamin D deficiency Start: 07-23-2024 End: 07-23-2024 ambulatory DANIEL Suero GUERRERO Facility:[facility] Start: 07-23-2024 End: 07-23-2024 Office outpatient visit 25 minutes Fely Garcia APRN.COMPUTER OPERATIONS MANAGER Work Phone: Allergy Comment on above: Moderate persistent asthma without complication (Primary Dx); Inducible laryngeal obstruction (ILO); Seasonal allergic rhinitis due to pollen; Allergic rhinitis due to mold; Allergic rhinitis due to animal hair and dander; Allergic rhinitis due to dust mite; Idiopathic urticaria Start: 07-19-2024 End: 07-19-2024 Orders Only Martha Hassan PA-C Work Phone: Pulmonology [facility] Comment on above: POTS (postural ortho static tachycardia syndrome) (Primary Dx); Dizziness; Post-acute sequelae of COVID-19 (PASC) Cognitive communicat ion deficit (Primary Dx); Brain fog; Memory change; Post-acute sequelae of COVID-19 (PASC) Start: 07-18-2024 End: 07-18-2024 ambulatory ALIZA BOYD Facility:[facility] Start: 07-18-2024 End: 07-18-2024 Patient encounter procedure Aliza Boyd MD Work Phone: [facility] Endocrinology Comment on above: PCOS (polycystic ova zohaib syndrome) (Primary Dx); Primary oligomenorrhea; Hyperandrogenism Start: 07-14-2024 End: 07-14-2024 [facility] Joann Braxton PhD Work Phone: Neurological [facility] Comment on above: Psychological and be havioral factors associated with disorders or diseases classified elsewhere (Primary Dx); persistent postural perceptual vertigo Start: 07-13-2024 End: 07-13-2024 Subsequent hospital visit by physician [facility] Comment on above: Pain in joint, multi ple sites [M25.50] Start: 07-13-2024 End: 07-13-2024 ambulatory NIEVES SMITH Facility:[facility] Start: 07-13-2024 End: 07-13-2024 Patient encounter procedure Nieves Smith MD Work Phone: [facility] Rheumatology and Arthritis Comment on above: Pain in joint, multi ple sites (Primary Dx); Malaise and fatigue; Fibromyalgia Start: 07-10-2024 End: 07-10-2024 Orders Only Samra Rose APRN.HORSE SHOER Work Phone: Gastroenterology Start: 07-09-2024 End: 07-09-2024 Office outpatient new 60 minutes [facility]C [facility] Comment on above: Shortness of breath (Primary Dx); Moderate persistent asthma without complication; POTS (postural orthostatic tachycardia syndrome); Dizziness; Palpitations; Tachycardia; Chest pain, unspecified type; Headaches; Food intolerance; Brain fog; Memory change; Nerve pain; Post-acute sequelae of COVID-19 (PASC) Start: 07-09-2024 End: 07-09-2024 ambulatory MARTHA HASSAN Facility:[facility] Start: 07-09-2024 End: 07-09-2024 Patient encounter procedure Samra Rose APRN.HORSE SHOER Work Phone: Gastroenterology Comment on above: Esophageal spasm (Pr imary Dx) Start: 07-06-2024 End: 07-06-2024 Telephone encounter Martha Hassan PA-C Work Phone: [facility] [place] [place] Comment on above: Intake Start: 07-06-2024 End: 07-06-2024 ambulatory DANIEL GUERRERO [facility] Start: 07-06-2024 End: 07-06-2024 Patient encounter procedure Nurse Sally Caicedo [facility] [place] Work Phone: [facility] [place] Comment on above: Vitamin B12 deficien cy (Primary Dx) Start: 06-29-2024 End: 07-05-2024 ambulatory Makenzie Lynn APRN.CNP Work Phone: Gastroenterology Start: 06-29-2024 End: 07-05-2024 Follow-up encounter Makenzie Lynn APRN.CNP Work Phone: Gastroenterology Comment on above: Test follow up quest ions Start: 06-28-2024 End: 06-29-2024 Refill Boubacar Sky APRN.CNP Work Phone: [facility] Comment on above: Med Change Request Start: 06-28-2024 ambulatory MAKENZIE PACK Facility:[facility] Start: 06-28-2024 End: 06-28-2024 Subsequent hospital visit by physician Gi/Gu [facility] Comment on above: Abdominal bloating [ R14.0] Start: 06-22-2024 End: 06-22-2024 Office outpatient visit 15 minutes Nicola Teixeira APRN.CNP Work Phone: Pulmonary Medicine Comment on above: Moderate persistent asthma without complication (Primary Dx); Multiple environmental allergies; Gastroesophageal reflux disease, unspecified whether esophagitis present Start: 06-22-2024 End: 06-22-2024 ambulatory Pulm [facility] Work Phone: PULM LAB COUNT [facility] Comment on above: Spirometry Start: 06-22-2024 End: 06-22-2024 Patient encounter procedure Pulm [facility] Work Phone: PULM LAB COUNT [facility] Start: 06-19-2024 End: 06-20-2024 Orders Only Makenzieelvie Lynn APRN.HORSE SHOER Work Phone: Gastroenterology Comment on above: Esophageal spasm (Pr imary Dx) Further Testing Ques tions Psychological and be havioral factors associated with disorders or diseases classified elsewhere (Primary Dx); persistent postural perceptual vertigo Start: 06-18-2024 End: 06-18-2024 Patient encounter procedure Christianne Soriano CCC-CRYOLITE RECOVERY OPERATOR Work Phone: [facility] Speech Therapy Comment on above: Dysphagia, unspecifi ed type (Primary Dx) Start: 06-18-2024 End: 06-18-2024 ambulatory Christianne Soriano CCC-CRYOLITE RECOVERY OPERATOR [facility] Start: 06-18-2024 End: 06-18-2024 Subsequent hospital visit by physician Gi/Gu [facility] Work Phone: Radiology Comment on above: Dysphagia, unspecifi ed type [R13.10] Start: 06-15-2024 End: 06-15-2024 Telephone encounter Ramses Pyle MD Work Phone: [facility] Cardiology Comment on above: Results (Coronary CT A) Start: 06-14-2024 End: 06-14-2024 ambulatory RAMSES PYLE Facility[facility] Start: 06-14-2024 End: 06-14-2024 Subsequent hospital visit by physician Kathy Main J (I-Stat) Work Phone: Radiology Comment on above: Chest pain, unspecif ied type [R07.9] Start: 06-11-2024 End: 06-11-2024 ambulatory MAKENZIE PACK Facility[facility] Start: 06-11-2024 End: 06-11-2024 Nursing evaluation of patient and report Nurse Gi Lab 2 Work Phone: Gastroenterology Comment on above: Dysphagia, unspecifi ed type Start: 06-06-2024 End: 06-08-2024 ambulatory Fernie Zhaokrista 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.HORSE SHOER Work Phone: Urology Comment on above: Negative UTI Test Start: 06-05-2024 End: 06-05-2024 ambulatory Makenzie Pack 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.HORSE SHOER Work Phone: Gastroenterology Comment on above: Dysphagia, unspecifi ed type (Primary Dx); Constipation, unspecified constipation type Start: 06-05-2024 End: 06-05-2024 Telemedicine consultation with patient Makenzie Pack 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.HORSE SHOER Work Phone: Gastroenterology Start: 06-05-2024 End: 06-05-2024 Telephone encounter Daniel Guerrero MD Work Phone: [facility] [place] Comment on above: Patient Question Start: 06-05-2024 End: 06-05-2024 ambulatory DANIEL Mirza GUERRERO Facility:[facility] Start: 06-05-2024 End: 06-05-2024 Patient encounter procedure Nurse Sally Caicedo [facility] Work Phone: [facility] Comment on above: Vitamin B12 deficien cy (Primary Dx) Start: 06-01-2024 End: 06-01-2024 ambulatory DANIEL GUERRERO Facility[facility] Start: 06-01-2024 End: 06-01-2024 Patient encounter procedure Fernie Cruz APRN.HORSE SHOER Work Phone: Urology Comment on above: Frequency of urinati on (Primary Dx) Start: 05-26-2024 End: 05-26-2024 Emergency department patient visit DANIEL GUERRERO Facility:[facility] Start: 05-21-2024 End: 05-21-2024 Emergency department patient visit ERICK HOLLOWAY Facility:[facility] Start: 05-21-2024 End: 05-22-2024 ambulatory Ramses Pyle MD Work Phone: [facility] Cardiology [place] Comment on above: Health Update Start: 05-21-2024 End: 05-22-2024 Patient encounter procedure Daniel Guerrero DO Work Phone: [facility] Comment on above: Health Update Start: 05-15-2024 End: 05-15-2024 ambulatory BOUBACAR SKY Facility:[facility] Start: 05-15-2024 End: 05-15-2024 Patient encounter procedure Daniel Mauro MD Work Phone: Neurology Comment on above: persistent postural perceptual vertigo (Primary Dx); Intractable migraine without aura and without status migrainosus Start: 05-10-2024 End: 05-10-2024 Patient encounter procedure Daniel Guerrero DO Work Phone: [facility] Comment on above: [facility] POTS (postural orthostatic tachycardia syndrome); PCOS (polycystic ovarian syndrome); Moderate persistent asthma without complication; Gastroesophageal reflux disease with esophagitis without hemorrhage; Seasonal allergic rhinitis due to pollen; Vitamin B12 deficiency Start: 05-10-2024 End: 05-10-2024 ambulatory DANIEL GUERRERO Facility:[facility] Start: 05-02-2024 End: 05-02-2024 Telephone encounter Makenzie Lynn APRN.HORSE SHOER Work Phone: Gastroenterology Comment on above: Results; Throat Prob vee (Pain with swallowing and throat discomfort) Start: 05-01-2024 End: 05-01-2024 Telephone encounter Ramses Pyle MD Work Phone: [place] [facility] Comment on above: Results Start: 04-28-2024 ambulatory UNKNOWN PROVIDER Facili ty:[facility] Start: 04-28-2024 End: 04-28-2024 Subsequent hospital visit by physician [facility] (1.5t) Radiology Comment on above: 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] Start: 04-27-2024 End: 04-27-2024 Telephone encounter Ramses Pyle MD Work Phone: [facility] Cardiology Comment on above: Results Start: 04-27-2024 End: 04-27-2024 Subsequent hospital visit by physician Maximiliano Peterson MD Work Phone: Ambulatory Surgery Comment on above: Gastroesophageal ref lux disease with esophagitis without hemorrhage [K21.00] Start: 04-27-2024 End: 04-27-2024 ambulatory Jessica Bird APRN - HORSE SHOER Work Phone: [facility] Comment on above: POTS (postural ortho static tachycardia syndrome) (Primary Dx) Start: 04-26-2024 End: 04-26-2024 ambulatory MILLA MOTLEY Facility:[facility] Start: 04-25-2024 End: 04-25-2024 Office outpatient visit 15 minutes Tami Darnell MD Work Phone: [facility] Cardiology [facility] Comment on above: POTS (postural ortho static tachycardia syndrome) (Primary Dx) Start: 04-25-2024 End: 04-25-2024 ambulatory TAMI DARNELL [facility] Start: 04-25-2024 End: 04-25-2024 Patient encounter procedure Fely Mcdonnelljaci ATKINSONCOMPUTER OPERATIONS MANAGER Work Phone: Allergy Comment on above: Food intolerance (Pr imary Dx); Inducible laryngeal obstruction (ILO); Chronic cough; Dysphonia; Moderate persistent asthma without complication; Seasonal allergic rhinitis due to pollen; Allergic rhinitis due to dust mite; Allergic rhinitis due to animal hair and dander; Allergic rhinitis due to mold; Globus sensation Start: 04-23-2024 End: 04-24-2024 Telephone encounter Mickie Dickinson MD Work Phone: Allergy Start: 04-20-2024 End: 04-20-2024 Admission to same day surgery center Maximiliano Peterson MD Work Phone: Ambulatory Surgery Start: 04-20-2024 End: 04-20-2024 ambulatory Maximiliano Peterson MD Work Phone: Ambulatory Surgery Start: 04-19-2024 End: 04-20-2024 ambulatory BOUBACAR SKY Facility:[facility] Start: 04-19-2024 End: 04-19-2024 Patient encounter procedure Boubacar Sky APRN.HORSE SHOER Work Phone: [facility] Medicine [place] Comment on above: Anxiety Start: 04-19-2024 End: 04-19-2024 Follow-up encounter Jessica Bird APRN - HORSE SHOER Work Phone: [facility] Comment on above: POTS (postural ortho static tachycardia syndrome) (Primary Dx) Start: 04-19-2024 End: 04-19-[address] [facility] Start: 04-17-2024 End: 04-17-2024 ambulatory Makenzie Lynn APRN.HORSE SHOER Work Phone: Gastroenterology Comment on above: Gastroesophageal ref lux disease with esophagitis without hemorrhage Start: 04-17-2024 End: 04-17-2024 Telemedicine consultation with patient Makenzie Lynn MARCO.HORSE SHOER Work Phone: Gastroenterology Start: 04-12-2024 End: 04-12-[address] [facility] Start: 04-12-2024 End: 04-12-2024 Follow-up encounter Jessica Naikrobbie LARA - HORSE SHOER Work Phone: [facility] Comment on above: POTS (postural ortho static tachycardia syndrome) (Primary Dx) Start: 04-11-2024 End: 04-11-2024 Telephone encounter Ag Card Work Phone: [facility] Cardiology [place] Comment on above: Preparations For Pro cedures Start: 04-06-2024 End: 04-06-[address] [facility] Start: 04-06-2024 End: 04-06-2024 Follow-up encounter Jessica Naikrobbie LARA - HORSE SHOER Work Phone: [facility] [place] Comment on above: POTS (postural ortho static tachycardia syndrome) (Primary Dx) Start: 04-04-2024 End: 04-04-2024 ambulatory Ramses Pyle MD Work Phone: 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 Cardiology [place] Comment on above: Dizziness (Primary D x); Migraine with aura and without status migrainosus, not intractable; Syncope, unspecified syncope type; Interstitial cystitis Start: 03-29-2024 End: 03-29-2024 ambulatory RAMSES PYLE [facility] [facility] Start: 03-29-2024 End: 03-29-2024 Telephone encounter Boubacar Sky APRN.HORSE SHOER Work Phone: [facility] Comment on above: Consult (GASTRO # [id number]) Start: 03-29-2024 End: 03-29-2024 ambulatory BOUBACAR SKY Facility[facility] [facility] Start: 03-29-2024 End: 03-29-2024 Patient encounter procedure Boubacar Sky APRN.HORSE SHOER Work Phone: [facility] Comment on above: Anxiety and depressi on (Primary Dx); Gastroesophageal reflux disease with esophagitis without hemorrhage Start: 03-28-2024 End: 03-28-2024 ambulatory Jessica Bird APRN - HORSE SHOER Work Phone: [facility] Comment on above: POTS (postural ortho static tachycardia syndrome) Start: 03-26-2024 End: 03-26-2024 Telephone encounter Fely Garcia APRN.COMPUTER OPERATIONS MANAGER Work Phone: Allergy Start: 03-23-2024 End: 03-23-2024 Office outpatient visit 40 minutes Nicola Teixeira APRN.HORSE SHOER Work Phone: Pulmonary Medicine Comment on above: Moderate persistent asthma without complication (Primary Dx); Multiple environmental allergies; Gastroesophageal reflux disease, unspecified whether esophagitis present Start: 03-19-2024 End: 03-19-2024 Telephone encounter Boubacar Sky APRN.HORSE SHOER Work Phone: [facility] Comment on above: Received Outside Med ical [facility] Start: 03-14-2024 End: 03-14-2024 [facility] Start: 03-14-2024 End: 03-14-2024 Office outpatient visit 15 minutes Jessica Naikrobbie LARA - HORSE SHOER Work Phone: [facility] Cardiology Comment on above: Hospital discharge f ollow-up (Primary Dx); POTS (postural orthostatic tachycardia syndrome) Start: 03-13-2024 End: 03-13-2024 Patient encounter procedure Boubacar Sky APRN.HORSE SHOER Work Phone: [facility] Comment on above: Hospital discharge f ollow-up (Primary Dx); Anxiety and depression; B12 deficiency Start: 03-13-2024 End: 03-13-2024 Refill Boubacar Sky APRN.HORSE SHOER Work Phone: [facility] Comment on above: Med Change Request Start: 03-06-2024 End: 03-06-2024 Subsequent hospital visit by physician Amadou Dunlap APRN - HORSE SHOER Work Phone: [facility] [address] Non-Invasive Cardiology Comment on above: Abnormal ECG Start: 03-06-2024 End: 03-06-2024 [facility] Start: 03-01-2024 End: 03-01-2024 Orders Only Amadou Dunlap APRN - HORSE SHOER Work Phone: [facility] Cardiology Comment on above: Abnormal ECG (Primar y Dx) Start: 02-28-2024 End: 03-01-2024 ambulatory BOUBACAR [facility] Start: 02-28-2024 End: 03-01-2024 Emergency department patient visit Boo Dorantes MD Work Phone: [facility] Cardiac Thoracic Vascular Intensive Care Unit CTV ICU T1 Comment on above: Tachycardia (Primary Dx); Chest pain, unspecified type; Abnormal EKG Start: 02-22-2024 Telephone encounter Boubacar lawrence APRN.HORSE SHOER Work Phone: [facility] Comment on above: Consult (NEUROLOGY # [id number]) Start: 02-17-2024 End: 03-02-2024 ambulatory [facility] Comment on above: results Start: 02-17-2024 End: 03-02-2024 E-mail encounter from caregiver [facility] Start: 02-17-2024 Telephone encounter Boubacar Bullard orquideahunter 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.HORSE SHOER Work Phone: [facility] Comment on above: Results Start: 02-16-2024 End: 02-16-2024 Patient encounter procedure Boubacar Chungflora 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.HORSE SHOER Work Phone: [facility] Comment on above: Multiple food allerg ies (Primary Dx); Migraine with aura and without status migrainosus, not intractable; Syncope, unspecified syncope type; Dizziness; Screening for depression; Brain fog; Screening for HIV (human immunodeficiency virus); Hepatitis B vaccination status unknown; COVID-19 long hauler; Anxiety and depression Start: 01-17-2024 End: 01-17-2024 Office outpatient visit 15 minutes Diann Andrew 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 - HORSE SHOER Work Phone: [facility] Comment on above: Acute suppurative ot itis media of left ear without spontaneous rupture of tympanic membrane, recurrence not specified (Primary Dx) Start: 01-17-2024 End: 01-17-2024 ambulatory [facility] Start: 11-08-2023 End: 11-08-2023 Patient encounter procedure Beau Thurman MD Work Phone: Urology Comment on above: Urinary frequency (P rimary Dx); Nocturia; Interstitial cystitis (chronic) with hematuria Start: 10-15-2023 Telephone encounter Beau jacques MD Work Phone: Urology Comment on above: Results Start: 10-07-2023 End: 10-07-2023 Patient encounter procedure Beau Thurman MD Work Phone: Urology Comment on above: Interstitial cystiti s (chronic) with hematuria (Primary Dx); Urinary frequency; Vaginal discharge; Urethralgia; Urethritis; Myofascial pain; Vulvodynia Start: 08-30-2023 ambulatory Sailaja Nice LPN NURSE TECHNICAL SUPERVISOR Comment on above: blood when wiping Start: 08-30-2023 Telephone encounter Yesy xie MD Work Phone: Gynecology Start: 08-25-2023 End: 08-25-2023 Patient encounter procedure Wenceslao Gaitan APRN.CNM Work Phone: OB/Gynecology Comment on above: Cervical cancer scre ening (Primary Dx); Acute vaginitis Start: 08-11-2023 End: 08-11-2023 Patient encounter procedure Sanjana Chamberlain MD Work Phone: Gynecology Comment on above: Secondary amenorrhea (Primary Dx); Urinary frequency; PCOS (polycystic ovarian syndrome); Screening for cervical cancer; High-tone pelvic floor dysfunction; Vulvodynia Start: 06-23-2023 End: 06-23-2023 Office outpatient visit 15 minutes Kimi Dominguez NP Work Phone: [facility] Comment on above: Dysuria (Primary Dx) Start: 06-23-2023 End: 06-23-2023 Office outpatient visit 25 minutes Kimi Dominguez NP Work Phone: [facility] Comment on above: Dysuria (Primary Dx) Start: 06-23-2023 End: 06-23-2023 ambulatory KIMI LUCAS [facility] Start: 05-05-2023 ambulatory SUSAN LIU Facility :[id number] Start: 05-05-2023 End: 05-05-2023 Subsequent hospital visit by physician Stress Lab [facility] Work Phone: [facility] Cardiology Comment on above: Dizziness and giddin ess [R42] Start: 03-10-2023 End: 03-10-2023 Patient encounter procedure Chrystal Ballard MD Work Phone: Allergy Comment on above: Chronic rhinitis (Pr imary Dx); Asthma, unspecified asthma severity, unspecified whether complicated, unspecified whether persistent; Allergic conjunctivitis, bilateral; Tree nut allergy; H/O peanut allergy; Dizziness; Cow's milk allergy; Food allergy Start: 02-15-2023 ambulatory STEPHANIA LOREDO MD Facility :A Start: 02-11-2023 Telephone encounter Daniel Guerrero DO Work Phone: [facility] Comment on above: Forms Start: 02-10-2023 End: 02-10-2023 Patient encounter procedure Daniel Guerrero DO Work Phone: [facility] Comment on above: [facility] ([facility]x); Syncope and collapse; Palpitations; Dizziness; Fatigue, unspecified type; Moderate persistent asthma without complication; PCOS (polycystic ovarian syndrome); Gastroesophageal reflux disease with esophagitis without hemorrhage; Seasonal allergic rhinitis due to pollen; Anxiety Start: 11-18-2022 End: 11-18-2022 ambulatory Pul[facility] Work Phone: PULM LAB [facility] Comment on above: Spirometry Start: 11-18-2022 End: 11-18-2022 Patient encounter procedure Pulm [facility] Work Phone: E[facility]ALIO [facility] Comment on above: Elevated IgE level ( Primary Dx); History of environmental allergies; Mild persistent asthma, unspecified whether complicated; Gastroesophageal reflux disease with esophagitis without hemorrhage; Anxiety Start: 10-31-2022 ambulatory Ayaka AbbasiC Work Phone: Pulmonary Medicine Comment on above: New Symptoms Start: 10-22-2022 Telephone encounter Sanjana Dong MD Work Phone: [facility] Comment on above: Orders Start: 10-22-2022 End: 10-22-2022 Patient encounter procedure Ayaka DUBONC Work Phone: Pulmonary Medicine Comment on above: Mild persistent asth ma, unspecified whether complicated (Primary Dx); Elevated IgE level; History of environmental allergies; Hospital discharge follow-up Start: 10-19-2022 ambulatory Kay jesus LPN NURSE TECHNICAL SUPERVISOR Comment on above: Insurance Authorizat ion Start: 10-07-2022 End: 10-07-2022 Patient encounter procedure Sanjana Chamberlain MD Work Phone: Gynecology Comment on above: Secondary amenorrhea (Primary Dx); Anxiety; Urinary frequency; PCOS (polycystic ovarian syndrome); Secondary oligomenorrhea Start: 07-21-2022 End: 07-21-2022 Subsequent hospital visit by physician Us Lewis [facility] Comment on above: Chronic pelvic pain in female [R10.2, G89.29] Start: 06-18-2022 End: 06-18-2022 [facility] Sanjana Chamberlain MD Work Phone: Gynecology Comment on above: Chronic bladder pain (Primary Dx); Irregular menses; Urinary frequency; Urinary urgency; Dysmenorrhea; Vaginal pain; Insomnia, unspecified type; PTSD (post-traumatic stress disorder); Secondary oligomenorrhea Start: 05-18-2022 Telephone encounter Brielle Peace MD Work Phone: [facility] Clinical Communication Comment on above: Appointment Request Start: 01-20-2022 End: 01-20-2022 ambulatory Rita Iqbal Other iwi Other Start: 01-20-2022 Office outpatient ne w 30 minutes Rita Iqbal [facility] Start: 01-05-2022 End: 01-05-2022 Emergency department patient visit DAVALOS [facility] Start: 01-05-2022 End: 01-05-2022 Emergency department patient visit Davalos MD Work Phone: [facility] Comment on above: Allergic reaction, i nitial encounter (Primary Dx) Start: 11-18-2021 End: 11-18-2021 ambulatory PHYSICIAN [facility] Start: 10-12-2021 End: 10-12-2021 Patient encounter procedure Daniel Mauro MD Work Phone: Neurology Comment on above: Memory difficulty (P rimary Dx) Start: 10-11-2021 Chart abstracting Daniel Mauro MD Work Phone: Neurology Start: 10-13-2020 End: 10-13-2020 Subsequent hospital visit by physician Sailaja Zhang Work Phone: [facility] Comment on above: Arrived Start: 10-10-2020 End: 10-10-2020 Subsequent hospital visit by physician Lesley Ruelas Work Phone: [facility] Start: 10-08-2020 End: 10-08-2020 Subsequent hospital visit by physician Lesley Ruelas Work Phone: [facility] Comment on above: Abdominal pain, unsp ecified abdominal location; Change in bowel habits; Nausea and vomiting, intractability of vomiting not specified, unspecified vomiting type Start: 09-11-2020 End: 09-11-2020 Emergency department patient visit Francesca Sahu Work Phone: [facility] Comment on above: Epigastric pain ([place] jayden Dx); Abdominal pain, unspecified abdominal location; Esophageal dysphagia Start: 06-17-2020 Patient encounter procedure SELF SELF Facility:[facility] Start: 06-12-2020 Patient encounter procedure SELF SELF Facility:[facility] Start: 07-14-2018 End: 07-14-2018 Emergency department patient visit Hanane Nicholson Facility:[place] Start: 07-14-2018 End: 07-14-2018 Office outpatient visit 10 minutes Earline Hutchins Work Phone: [facility] [place] Comment on above: Cellulitis of right eyelid (Primary Dx) Start: 09-13-2017 Patient encounter procedure Shruti L Meraz Facility:[place] Start: 09-13-2017 End: 09-13-2017 Ambulatory Shruti Monaen Meraz Work Phone: [facility] Start: 06-09-2017 End: 06-10-2017 Ambulatory Will Salamanca Facility[place] Start: 03-15-2017 End: 03-16-2017 Ambulatory Will Salamanca Facility:[facility] Procedures Date Procedure Procedure Detail Performing Clinician Start: 03-26-2025 Cv strs tst xers&/or rx cont ecg trcg only Alba Roman APRN.HORSE SHOER Work Phone: Start: 01-22-2025 breast uni real time with image limited Daniel Guerrero DO Work Phone: Start: 12-12-2024 Nerve conduction studies 5-6 studies Mo Guzman 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.HORSE SHOER Work Phone: Start: 11-26-2024 UA DIP,URINE HCG (POC) Katy Gant MD Work Phone: Start: 11-26-2024 Saline infus sonohysterography w/color doppler Carline Carson 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.HORSE SHOER Work Phone: Start: 11-21-2024 UA DIP,URINE HCG (POC) Carline Carson 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.HORSE SHOER Work Phone: Start: 10-11-2024 Adult depression screening assessment Daniel Guerrero DO Work Phone: Start: 10-01-2024 Electrocardiogram CONCEPCION TOTH Start: 09-28-2024 End: 09-28-2024 Electrocardiogram CONCEPCION TOTH Start: 09-05-2024 HEARING TEST/AUDIOGRAM Rubi Goncalves SHANE Work Phone: Start: 09-04-2024 Ecg routine ecg w/least 12 lds w/i&r Concepcion Toth MD Work Phone: Start: 09-04-2024 Echocardiography DANIEL GUERRERO Start: 08-20-2024 Electrocardiogram CONCEPCION TOTH Start: 06-28-2024 Radiologic exam upr gi trc double contrast study Makenzie Lynn 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.HORSE SHOER Work Phone: Start: 06-28-2024 Radiologic small intestine follow-through study Makenzie Lynn 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.HORSE SHOER Work Phone: Start: 06-22-2024 Nitric oxide gas determination Nicola Teixeira 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.HORSE SHOER Work Phone: Start: 06-22-2024 Brncdilat rspse spmtry pre&post-brncdilat admn Nicola Teixeira 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.HORSE SHOER Work Phone: Start: 06-18-2024 Radiologic exam swallow function contrast study Makenzie Pack 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.HORSE SHOER Work Phone: Start: 06-14-2024 Cta hrt cornry art/bypass grfts contrst 3d post Ramses Pyle MD Work Phone: Start: 06-11-2024 Esophageal motility study w/interp&rpt Makenzie Pack 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.HORSE SHOER Work Phone: Start: 06-01-2024 Urnls dip stick/tablet rgnt auto w/o microscopy Fernie Pavelkrista 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.HORSE SHOER Work Phone: Start: 04-28-2024 Mri brain brain stem w/o contrast material Daniel Mauro MD Work Phone: Start: 04-27-2024 Esophagogastroduodenoscopy transoral diagnostic Makenzie Pack 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.HORSE SHOER Work Phone: Start: 03-06-2024 Cv strs tst xers&/or rx cont ecg trcg only Amadou Dunlap 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 - HORSE SHOER Work Phone: Start: 03-01-2024 Ecg routine ecg w/least 12 lds trcg only w/o i&r Jose Maria Laboy DO Work Phone: Start: 03-01-2024 End: 03-01-2024 Comprehensive metabolic panel Bang farooq MD Work Phone: Start: 02-29-2024 Echo tthrc r-t 2d w/wom-mode compl spec&colr d Bang Davies MD Work Phone: Start: 02-29-2024 Us abdominal real time w/image limited Robert Aguirre DO Work Phone: Start: 02-29-2024 Respiratory pathogens DNA and RNA panel - Nasopharynx by ZULEMA with non-probe detection Martina Jacobs MD Work Phone: Start: 02-29-2024 Ecg routine ecg w/least 12 lds i&r only Bang Davies MD Work Phone: Start: 02-29-2024 Ecg routine ecg w/least 12 lds trcg only w/o i&r Bang Davies MD Work Phone: Start: 02-29-2024 MEDICATION ASSISTED TREATMENT PANEL Bang Davies MD Work Phone: Start: 02-29-2024 C-reactive protein Bang Davies MD Work Phone: Start: 02-29-2024 Comprehensive metabolic panel Bang farooq MD Work Phone: Start: 02-28-2024 Assay of lipase Robert Aguirre DO Work Phone: Start: 02-28-2024 Lipid panel Bang Davies MD Work Phone: Start: 02-28-2024 Radiologic exam chest single view Boo Dorantes MD Work Phone: Start: 02-28-2024 Comprehensive metabolic panel Boo lopes MD Work Phone: Start: 02-28-2024 End: 02-28-2024 Ecg routine ecg w/least 12 lds trcg only w/o i&r Manoj Barcenas DO Work Phone: Start: 11-08-2023 BLADDER SCAN Beau Thurman MD Work Phone: Start: 11-08-2023 Urnls dip stick/tablet rgnt auto w/o microscopy Beau Thurman MD Work Phone: Start: 10-07-2023 BACTERIAL VAGINOSIS NAAT Beau Thurman MD Work Phone: Start: 10-07-2023 Culture mycoplasma any source Beau jacques MD Work Phone: Start: 10-07-2023 Urnls dip stick/tablet rgnt auto w/o microscopy Beau Thurman MD Work Phone: Start: 08-25-2023 Microscopic observation [Identifier] in Cervix by Cyto stain Amadou Dunlap 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 - HORSE SHOER Work Phone: Start: 08-11-2023 BACTERIAL VAGINOSIS NAAT Sanjana capps MD Work Phone: Start: 06-23-2023 Culture bacterial quanttative colony count urine Kimi Lucas 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 - [employer]IGH SCHO[employer] TEACHER Work Phone: Start: 06-23-2023 Urnls dip stick/tablet rgnt auto w/o microscopy Kimi Reyesazar 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 - [employer]IGH SCHOOL TEACHER Work Phone: Start: 05-06-2023 CARDIOLOGY REPORT Todd Medeiros MD Work Phone: Start: 03-10-2023 ALLERGEN SKIN TEST-FOOD Chrystal Ballard MD Work Phone: Start: 03-10-2023 ALLERGEN SKIN TEST-INHALENT 40 Chrystal phelan MD Work Phone: Start: 03-10-2023 Intracutaneous tests w/allergenic extracts Chrystal Ballard MD Work Phone: Start: 11-18-2022 Nitric oxide gas determination Ayaka Anne [employer] Work Phone: Start: 11-18-2022 Brncdilat rspse spmtry pre&post-brncdilat admn Ayaka Anne [employer] Work Phone: Start: 10-07-2022 Urine test visual color cmprsn meths Sanjana Chamberlain MD Work Phone: Start: 10-07-2022 MYCOPLASMA CULT Sanjana Chamberlain MD Work Phone: Start: 10-12-2021 Adult depression screening assessment Daniel Mauro MD Work Phone: Start: 10-13-2020 HM ENDOSCOPY REPORT 3m Scanning Start: 10-10-2020 Iaad ia hpylori Lesley Ruelas Work Phone: Start: 10-08-2020 Assay of gammaglobulin iga igd igg igm each Lesley Ruelas Work Phone: Start: 09-11-2020 CT ABDOMEN PELVIS W WO CONTRAST Francesca A ndrus Work Phone: Start: 09-11-2020 Us abdominal real time w/image limited Francesca Adelina Work Phone: Start: 09-11-2020 Assay of lipase Francesca Adelina Work Phone: Start: 09-11-2020 Blood count complete automated Francesca An drus Work Phone: Start: 09-11-2020 Comprehensive metabolic panel Francesca And jamaica Work Phone: Start: 09-11-2020 Urine test visual color cmprsn meths Francescaniles Arriazas Work Phone: Start: 09-11-2020 Urnls dip stick/tablet rgnt auto w/o microscopy Francesca Adelina Work Phone: Plan of Treatment Date Care Activity Detail Author Start: 2057 RSV Immunization aged 60 or older (1 - 1-dose 60+ series) RSV Immunization aged 60 or older (1 - 1-dose 60+ series) [facility] Start: 2047 Zoster Vaccines (1 of 2) Zoster Vaccines (1 of 2) [facility] Start: 08-25-2026 Screening for malignant neoplasm of cervix [facility] Start: 08-11-2026 Screening for malignant neoplasm of cervix Pap Testing [facility] Start: 03-14-2026 Annual PCP Team Chronic Disease Visit Annual PCP Team Chronic Disease Visit [facility] Start: 03-14-2026 Pneumococcal vaccination Pneumococcal Vaccine (1 of 2 - PCV) [facility] Comment on above: Postponed from 2016 (Declined at t his time) Start: 01-07-2026 Influenza vaccination Influenza Vaccine (#1) [facility] Comment on above: Postponed from 03/11/2025 (Declined at t his time) Start: 12-06-2025 Annual PCP Team Chronic Disease Visit Annual PCP Team Chronic Disease Visit [facility] Start: 12-01-2025 DTaP/Tdap/Td vaccine (3 - Td or Tdap) DTaP/Tdap/Td vaccine (3 - Td or Tdap) [facility] Start: 12-01-2025 DTaP/Tdap/Td vaccine (3 - Td) DTaP/Tdap/Td vaccine (3 - Td) [facility] [place] Phone: Start: 12-01-2025 DTaP/Tdap/Td Vaccines (3 - Td or Tdap) DTaP/Tdap/Td Vaccines (3 - Td or Tdap) [facility] Start: 12-01-2025 Urine microalbumin profile DTaP,Tdap,Td Vaccine (3 - Td or Tdap) [facility] Start: 10-11-2025 Annual PCP Team Chronic Disease Visit Annual PCP Team Chronic Disease Visit [facility] Start: 10-11-2025 Depression Screening Depression Screening [facility] Start: 09-16-2025 End: 09-16-2025 Patient encounter procedure 09/16/2025 2:15 PM EDT Office Visit Cardiology [address] [place] [address] Yuan Schafer MD [address] [place] [address] Sched pt per HVI Order 6 month f2f F/U Cardiology Comment on above: Sched pt per HVI Order 6 month f2f F/U Start: 08-15-2025 End: 08-15-2025 Patient encounter procedure 08/15/2025 1:00 PM [facility] Endocrinology [address] [place] [address] Aliza Boyd MD [address] [place] [id number] 6 mth f/u [facility] Endocrinology Comment on above: 6 mth f/u Start: 08-07-2025 Annual PCP Team Chronic Disease Visit Annual PCP Team Chronic Disease Visit [facility] Start: 06-13-2025 End: 06-13-2025 Patient encounter procedure 06/13/2025 3:00 PM EST Office Visit [facility] [place] [address] [place] [address] Daniel Guerrero, DO 1 [facility], 2nd Floor [place] [phone] Follow-up disposition: Return in about 3 months (around 06/13/2025), or For check up on POTs (20 min visit). [facility] [place] Comment on above: Follow-up disposition: Return in about 3 months (around 06/13/2025), or For check up on POTs (20 min visit). Start: 06-10-2025 End: 06-10-2025 Patient encounter procedure 06/10/2025 10:00 AM EST Office Visit Pulmonary Medicine [address] [place] [id number] Praveen Canales MD [address] [facility] [place] [address] 6 month f/u Pulmonary Medicine Comment on above: 6 month f/u Start: 06-10-2025 End: 06-10-2025 ambulatory 06/10/2025 9:45 AM EST Procedure PULM LAB COUNT INCLUDES THE [facility] WSTR [address] [place] [address] Wstr, Pulm Lab [facility] [address] [place] [address] Mild intermittent asthma without complication (HCC) [J45.20] PULM LAB COUNT INCLUDES THE [facility] WS Comment on above: Mild intermittent asthma without complic ation (HCC) [J45.20] Start: 05-10-2025 Annual PCP Team Chronic Disease Visit Annual PCP Team Chronic Disease Visit [facility] Start: 04-24-2025 End: 04-24-2025 ambulatory 04/24/2025 7:00 AM EDT [facility] Neurology [address] [place] [address] Mo Guzman APRN.HORSE SHOER [address] [facility] [place] [address] f/u dysautonmia Neurology Comment on above: f/u dysautonmia Start: 04-19-2025 Annual PCP Team Chronic Disease Visit Annual PCP Team Chronic Disease Visit [facility] Start: 04-15-2025 End: 04-15-2025 Patient encounter procedure 04/15/2025 8:30 AM EDT Appointment Radiology [address] [place] [address] Esophageal dysphagia [R13.19] XR ESOPHAGRAM Radiology Comment on above: Esophageal dysphagia [R13.19] XR ESOPHAG WILL Start: 04-12-2025 End: 04-12-2025 Patient encounter procedure 04/12/2025 8:00 AM EDT Office Visit Urology [address] [place] [phone] Dena Vila, MARCO.HORSE SHOER [address] [place] [address] 6 months with Dena Botox information Urology Comment on above: 6 months with Dena Botox information Start: 04-02-2025 End: 04-02-2025 Patient encounter procedure 04/02/2025 2:30 PM EDT Office Visit Functional Medicine [address] [address] Nel Anderson MD [address] [phone] follow up 3 months Functional Medicine Comment on above: follow up 3 months Start: 03-29-2025 End: 03-29-2025 Patient encounter procedure Urology Comment on above: 6 months with Dena Botox information Start: 03-29-2025 Annual PCP Team Chronic Disease Visit Annual PCP Team Chronic Disease Visit [facility] Start: 03-28-2025 End: 03-28-2025 Patient encounter procedure Radiology Comment on above: Esophageal spasm [K22.4] Start: 03-26-2025 End: 03-26-2025 Patient encounter procedure 03/26/2025 8:15 AM EDT Office Visit Preventive Cardiology [address] [place] [address] Sched pt per [facility]VI Order 6 month f2f F/U Preventive Cardiology Comment on above: Sched pt per HVI Order 6 month f2f F/U Start: 03-19-2025 End: 03-19-2025 ambulatory 03/19/2025 1:00 PM EDT OT/PT/Speech Visit Speech Therapy [facility] [address] [place] [address] Kimi Dinero CCC-CRYOLITE RECOVERY OPERATOR [address] [place] [address] Kimi Dinero Speech Therapy [facility] Comment on above: Kimi Dinero Start: 03-19-2025 End: 03-19-2025 Patient encounter procedure 03/19/2025 9:45 AM EDT Office Visit Cardiology [address] [place] [address] Yuan Schafer MD [address] [place] [address] 6 month follow up Cardiology Comment on above: 6 month follow up Start: 03-14-2025 End: 03-14-2025 Patient encounter procedure [facility] [place] Comment on above: Return in about 3 months (around 03/08/20), or for overall health. Start: 03-13-2025 Annual PCP Team Chronic Disease Visit Annual PCP Team Chronic Disease Visit [facility] Start: 03-12-2025 End: 03-12-2025 ambulatory 03/12/2025 9:00 AM EDT Procedure Cardiology [address] [place] [address] EKG Cardiology Comment on above: EKG Start: 03-12-2025 End: 03-12-2025 Patient encounter procedure 03/12/2025 9:00 AM EDT Office Visit Cardiology [address] [place] [address] EKG Cardiology Comment on above: EKG Start: 03-11-2025 Influenza vaccination [facility] Start: 03-08-2025 End: 03-08-2025 ambulatory 03/08/2025 3:30 PM EDT OT/PT/Speech Visit Speech Therapy [facility] [address] [place] [address] Kimi Dinero CCC-CRYOLITE RECOVERY OPERATOR [address] [place] [address] SPEECH F/U Speech Therapy [facility] Comment on above: SPEECH F/U Start: 03-06-2025 End: 03-06-2025 ambulatory 03/06/2025 3:00 PM EDT OT/PT/Speech Visit Speech Therapy [facility] [address] [place] [address] Kimi Dinero, [facility]-CRYOLITE RECOVERY OPERATOR [address] [place] [address] Kimi Dinero Speech Therapy [facility] Comment on above: Kimi Dinero Start: 03-05-2025 End: 03-05-2025 Patient encounter procedure 03/05/2025 3:00 PM EDT OT/PT/Speech Visit Neurology PT Outpatient [facility] [address] [place] [address] [place] [address] [place] [address] balance/dizzy Neurology PT Outpatient [facility] Comment on above: balance/dizzy Start: 02-27-2025 End: 02-27-2025 Follow-up encounter 02/27/2025 12:30 PM EDT [facility] Functional Medicine [address] [address] [facility] [address] [address] Follow Up Functional Medicine Comment on above: HC Follow Up Start: 02-18-2025 End: 02-18-2025 Patient encounter procedure 02/18/2025 3:00 PM EDT OT/PT/Speech Visit Neurology PT Outpatient [facility] [address] [place] [address] [place] [address] [place] [address] balance/dizzy Neurology PT Outpatient [facility] Comment on above: balance/dizzy Start: 02-15-2025 Annual PCP Team Chronic Disease Visit Annual PCP Team Chronic Disease Visit [facility] Start: 02-15-2025 Covid-19 Vaccine ( season) Covid-19 Vaccine ( season) [facility] Comment on above: Postponed from 03/11/2023 (Declined at t his time) Start: 02-15-2025 Hepatitis B Vaccine (1 of 3 - 19+ 3-dose series) Hepatitis B Vaccine (1 of 3 - 19+ 3-dose series) [facility] Comment on above: Postponed from 2016 (Currently Mychal eduled) Start: 02-13-2025 End: 02-13-2025 Patient encounter procedure Cardiology Comment on above: pots Start: 02-12-2025 End: 02-12-2025 Patient encounter procedure 02/12/2025 1:40 PM EDT [facility] Endocrinology [address] [place] [address] Aliza Boyd MD [address] [place], [place] [id number] f/u-lab results [facility] Comment on above: f/u-lab results Start: 02-05-2025 End: 02-05-2025 ambulatory 02/05/2025 10:00 AM EDT Results Only [facility] [address] [place] [address] [facility] Start: 01-24-2025 End: 04-25-2025 GLUCOSE, 2 HOUR GLUCOSE, 2 HOUR Lab Routine PCOS (polycystic ovarian syndrome) Expected: 01/24/2025, Expires: 04/25/2025 [facility] Work Phone: Comment on above: Expected: 01/24/2025, Expires: Start: 01-24-2025 End: 01-24-2025 Patient encounter procedure 01/24/2025 8:20 AM EDT [facility] Endocrinology [address] [place] [address] Aliza Boyd MD [address] [place], [place] [id number] 6mon fu thyroid [facility] Endocrinology Comment on above: 6mon fu thyroid Start: 01-22-2025 End: 01-22-2025 Patient encounter procedure 01/22/2025 1:00 PM EDT Appointment [facility] [address] [facility] [place] [address] Breast mass in female [N63.0] [facility] Comment on above: Breast mass in female [N63.0] Start: 01-21-2025 End: 04-22-2025 CBC panel - Blood by Automated count COMPLETE BLOOD COUNT Lab Routine Polycystic ovarian syndrome Abnormal uterine bleeding (AUB) Expected: 01/21/2025, Expires: 04/22/2025 [facility] Comment on above: Expected: 01/21/2025, Expires: Start: 01-21-2025 End: 04-22-2025 Cobalamin (Vitamin B12) [Mass/volume] in Serum or Plasma VITAMIN B12 Lab Routine Polycystic ovarian syndrome Abnormal uterine bleeding (AUB) Expected: 01/21/2025, Expires: 04/22/2025 [facility] Comment on above: Expected: 01/21/2025, Expires: Start: 01-21-2025 End: 04-22-2025 Comprehensive metabolic 2000 panel - Serum or Plasma COMPREHENSIVE METABOLIC PANEL Lab Routine Polycystic ovarian syndrome Abnormal uterine bleeding (AUB) Expected: 01/21/2025, Expires: 04/22/2025 [facility] Comment on above: Expected: 01/21/2025, Expires: Start: 01-21-2025 End: 04-22-2025 Ferritin [Mass/volume] in Serum or Plasma FERRITIN Lab Routine Polycystic ovarian syndrome Abnormal uterine bleeding (AUB) Expected: 01/21/2025, Expires: 04/22/2025 [facility] Comment on above: Expected: 01/21/2025, Expires: Start: 01-21-2025 End: 04-22-2025 Folate [Mass/volume] in Serum or Plasma FOLATE, SERUM Lab Routine Polycystic ovarian syndrome Abnormal uterine bleeding (AUB) Expected: 01/21/2025, Expires: 04/22/2025 [facility] Comment on above: Expected: 01/21/2025, Expires: Start: 01-21-2025 End: 04-22-2025 HCG QUALITATIVE HCG QUALITATIVE Lab Routine Polycystic ovarian syndrome Abnormal uterine bleeding (AUB) Expected: 01/21/2025 (Approximate), Expires: 04/22/2025 [facility] Comment on above: Expected: 01/21/2025 (Approximate), Expi res: 04/22/2025 Start: 01-21-2025 End: 04-22-2025 Iron and Iron binding capacity panel - Serum or Plasma IRON AND TIBC Lab Routine Polycystic ovarian syndrome Abnormal uterine bleeding (AUB) Expected: 01/21/2025, Expires: 04/22/2025 [facility] Work Phone: Comment on above: Expected: 01/21/2025, Expires: Start: 01-21-2025 End: 04-22-2025 Magnesium [Mass/volume] in Serum or Plasma MAGNESIUM Lab Routine Polycystic ovarian syndrome Abnormal uterine bleeding (AUB) Expected: 01/21/2025, Expires: 04/22/2025 [facility] Comment on above: Expected: 01/21/2025, Expires: Start: 01-21-2025 End: 04-22-2025 Prolactin [Mass/volume] in Serum or Plasma PROLACTIN Lab Routine Polycystic ovarian syndrome Abnormal uterine bleeding (AUB) Expected: 01/21/2025, Expires: 04/22/2025 [facility] Comment on above: Expected: 01/21/2025, Expires: Start: 01-16-2025 End: 01-16-2025 Patient encounter procedure 01/16/2025 2:00 PM EDT [facility] Functional Medicine [address] [address] [facility] [address] [address] New consult-health health care coach Functional Medicine Comment on above: New consult-health health care coach Start: 01-15-2025 End: 01-15-2025 Patient encounter procedure 01/15/2025 1:45 PM EDT OT/PT/Speech Visit Neurology PT Outpatient [facility] [address] [place] [address] [place] [address] [place] [address] balance/dizzy Neurology PT Outpatient [facility] Comment on above: balance/dizzy Start: 01-15-2025 End: 01-15-2025 Patient encounter procedure 01/15/2025 11:20 AM EDT Office Visit [facility] Endocrinology [address] [place] [address] Aliza Boyd MD [address] [place] [address] 6mon fu thyroid [facility] Comment on above: 6mon fu thyroid Start: 01-04-2025 End: 01-04-2025 OT/PT/Speech Visit 01/04/2025 8:45 AM EDT OT/PT/Speech Visit Speech Therapy [facility] [address] [place] [address] Kimi Dinero, CCC-CRYOLITE RECOVERY OPERATOR [address] [place] [address] speech disorder Speech Therapy [facility] Comment on above: speech disorder Start: 01-03-2025 End: 04-04-2025 CELIAC SCREEN WITH REFLEX [facility] ic Comment on above: Expected: 01/03/2025, Expires: Start: 01-03-2025 End: 01-03-2025 Patient encounter procedure 01/03/2025 11:45 AM EDT Office Visit Gastroenterology [address] [place], [place] [phone] Makenzie Lynn APRN.[facility] [address] [address] Follow up from tests Gastroenterology Comment on above: Follow up from tests Start: 01-01-2025 End: 01-01-2025 Patient encounter procedure 01/01/2025 3:30 PM EDT OT/PT/Speech Visit Neurology PT Outpatient [facility] [address] [place] [address] [place] [address] [place] [address] balance/dizzy Neurology PT Outpatient [facility] Comment on above: balance/dizzy Start: 12-31-2024 End: 12-31-2024 Patient encounter procedure Functional Medicine Comment on above: follow up 2 months Follow up from tests Start: 12-26-2024 End: 12-26-2024 Follow-up encounter 12/26/2024 3:00 PM EDT [facility] Gastroenterology [address] [address] Samra Rose APRN.HORSE SHOER [address] [place] [address] Esophageal spasm, medication follow up Gastroenterology Comment on above: Esophageal spasm, medication follow up Start: 12-26-2024 End: 12-26-2024 ambulatory 12/26/2024 12:45 PM EDT Results Only [facility] [address] [place] [address] [facility] Start: 12-24-2024 End: 12-24-2024 Patient encounter procedure Pulmonary Medicine Comment on above: 6 month f/u surgical consult -pe r Dr Gant Start: 12-21-2024 End: 12-21-2024 OT/PT/Speech Visit Speech Therapy [facility] Comment on above: speech disorder Follow up after test s Start: 12-18-2024 End: 12-18-2024 OT/PT/Speech Visit 12/18/2024 2:30 PM EDT OT/PT/Speech Visit Speech Therapy [facility] [address] [place] [address] Kimi Dinero, CCC-CRYOLITE RECOVERY OPERATOR [address] [place] [address] speech disorder Speech Therapy [facility] Comment on above: speech disorder Start: 12-18-2024 End: 12-18-2024 Patient encounter procedure 12/18/2024 11:30 AM EDT Office Visit Neurology [address] [place] [phone] Mo Guzman APRN.HORSE SHOER [address] [facility] [place] [address] FOLLOW UP Neurology Comment on above: FOLLOW UP Start: 12-13-2024 End: 12-13-2024 Patient encounter procedure 12/13/2024 4:00 PM EDT Office Visit Otolaryngology [address] [address] Sharlene Means, PhD, CCC-CRYOLITE RECOVERY OPERATOR [address] [place] [address] 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] Otolaryngology Comment on above: Inducible laryngeal obstruction (ILO) [J 38.7] Start: 12-12-2024 End: 12-12-2024 ambulatory 12/12/2024 1:15 PM EDT Procedure Neurology [address] [place] [address] r L>R UE Neurology Comment on above: r L>R UE Start: 12-06-2024 End: 12-06-2024 Patient encounter procedure 12/06/2024 1:00 PM EDT Office Visit [facility] [address] [place], [place] [phone] Daniel Guerrero DO [address] [place], [place] [phone] Return in about 4 weeks (around 11/08/2024), or Follow up on autonomic testing and mood. [facility] Comment on above: Return in about 4 weeks (around 11/08/2024 ), or Follow up on autonomic testing and mood. Start: 12-06-2024 End: 12-06-2024 Follow-up encounter 12/06/2024 11:00 AM EDT [facility] Neurology [address] [place] [address] Mo Guzman APRN.HORSE SHOER [address] [place] [address] FOLLOW UP Neurology Comment on above: FOLLOW UP Start: 11-30-2024 End: 03-01-2025 Corticotropin [Mass/volume] in Plasma ACTH BLD Lab Routine POTS (postural orthostatic tachycardia syndrome) Flushing Stress Expected: 11/30/2024 (Approximate), Expires: 03/01/2025 [facility] Comment on above: Expected: 11/30/2024 (Approximate), Expi res: 03/01/2025 Start: 11-30-2024 End: 03-01-2025 Cortisol [Mass/volume] in Serum or Plasma CORTISOL, SERUM Lab Routine POTS (postural orthostatic tachycardia syndrome) Flushing Stress Expected: 11/30/2024 (Approximate), Expires: 03/01/2025 [facility] Comment on above: Expected: 11/30/2024 (Approximate), Expi res: 03/01/2025 Start: 11-30-2024 End: 11-30-2024 Nursing evaluation of patient and report 11/30/2024 8:00 AM EDT Nurse Visit [facility] Gastroenterology [facility] [address] [facility] [address] [place] [address] [facility], Nurse [facility] [address] [facility] [address] [place] [address] BREATH TEST - LACTULOSE // Please call patient [phone]. She has several questions regarding the directions. 11/18 12:00Pm. megha [facility] Gastroenterology [facility] Comment on above: BREATH TEST - LACTULOSE // Please call p atient [phone]. She has several questions regarding the directions. 11/18 12:00Pm. mar Start: 11-26-2024 End: 11-26-2024 Patient encounter procedure 11/26/2024 10:45 AM EDT Office Visit OB/Gynecology [address] [place] [address] Us, Printer Operator [facility] [address] [place] [address] sonohysterography OB/Gynecology Comment on above: sonohysterography Start: 11-22-2024 End: 11-22-2024 Patient encounter procedure 11/22/2024 9:30 AM EDT OT/PT/Speech Visit Neurology PT Outpatient [facility] [address] [place] [address] Raman, [place] [address] [place] [address] R42 (ICD-10-CM) - Dizziness Neurology PT Outpatient [facility] Comment on above: R42 (ICD-10-CM) - Dizziness Start: 11-21-2024 End: 11-21-2024 Patient encounter procedure 11/21/2024 2:00 PM EDT Office Visit Gynecology [address] [place] [address] Carline Carson APRN.HORSE SHOER [address] [place] [address] period for over a month Gynecology Comment on above: period for over a month Start: 11-21-2024 End: 11-21-2025 US Uterus and Fallopian tubes W saline IU SONOHYSTEROGRAPHY (SIS) US WHI Anc Imaging Routine Abnormal uterine bleeding (AUB) Expected: 11/21/2024, Expires: 11/21/2025 [facility] Work Phone: Comment on above: Expected: 11/21/2024, Expires: Start: 11-19-2024 End: 11-19-2024 Nursing evaluation of patient and report 11/19/2024 8:00 AM EDT Nurse Visit [facility] Gastroenterology [facility] [address] [place] [address] [facility], Nurse [facility] [address] [facility] [address] [place] [address] BREATH TEST - LACTULOSE [facility] Gastroenterology [facility] Comment on above: BREATH TEST - LACTULOSE Start: 11-15-2024 End: 11-15-2024 ambulatory Neurology Comment on above: W/O r W/O Start: 11-15-2024 End: 11-15-2024 Follow-up encounter 11/15/2024 2:00 PM EDT Procedure Neurology [address] [place] [address] FOLLOW UP Neurology Comment on above: FOLLOW UP Start: 11-08-2024 End: 11-08-2024 ambulatory 11/08/2024 3:15 PM EDT OT/PT/Speech Visit Speech Therapy [facility] [address] [place] [address] Kimi Dinero, CCC-CRYOLITE RECOVERY OPERATOR [address] [place] [address] (Covid Recovery) Speech Therapy [facility] Comment on above: (Covid Recovery) Start: 11-06-2024 End: 11-06-2024 ambulatory 11/06/2024 7:00 AM EDT [facility] Gastroenterology [address] [place] [address] Makenzie Lynn APRN.HORSE SHOER [address] [place] [address] MC req: Continued stomach pain in upper left abdomen Gastroenterology Comment on above: MC req: Continued stomach pain in upper left abdomen Start: 11-02-2024 End: 11-02-2024 ambulatory 11/02/2024 1:45 PM EDT OT/PT/Speech Visit Speech [facility] [address] [place] [address] Kimi Dinero, CCC-CRYOLITE RECOVERY OPERATOR [address] [place] [address] (Covid Recovery) Speech [facility] Comment on above: (Covid Recovery) Start: 11-02-2024 End: 11-02-2024 Patient encounter procedure 11/02/2024 12:30 PM EDT OT/PT/Speech Visit Neurology PT Outpatient [facility] [address] [place] [address] [place] [address] [place] [address] R42 (ICD-10-CM) - Dizziness Neurology PT Outpatient [facility] Comment on above: R42 (ICD-10-CM) - Dizziness Start: 10-31-2024 End: 10-31-2024 Patient encounter procedure 10/31/2024 10:00 AM EDT Office Visit Allergy [address] [place] [address] Fely Garcia APRN.COMPUTER OPERATIONS MANAGER [address] [place] [address] ?ASTHMA/URTICARIA F/U 4 weeks Allergy Comment on above: ?ASTHMA/URTICARIA F/U 4 weeks Start: 10-30-2024 End: 01-29-2025 Herpes virus 6 IgG Ab [Titer] in Serum by Immunofluorescence [facility] Comment on above: Expected: 10/30/2024, Expires: Start: 10-30-2024 End: 01-29-2025 Histamine [Moles/volume] in Blood [facility] Comment on above: Expected: 10/30/2024, Expires: Start: 10-30-2024 End: 01-29-2025 MAGNESIUM RBC [facility] Work Phone: Comment on above: Expected: 10/30/2024, Expires: Start: 10-30-2024 End: 01-29-2025 [facility] Comment on above: Expected: 10/30/2024, Expires: 5 Start: 10-30-2024 End: 10-30-2024 Patient encounter procedure 10/30/2024 8:00 AM EDT Office Visit Functional Medicine [address] [address] Nel Anderson MD [address] [phone] POTS (postural orthostatic tachycardia syndrome) [G90.A] Functional Medicine Comment on above: POTS (postural orthostatic tachycardia s yndrome) [G90.A] Start: 10-29-2024 End: 10-29-2024 Patient encounter procedure 10/29/2024 1:00 PM EDT Office Visit [facility] Ear, Nose, and Throat (ENT) [address] [place] [phone] Yang Workman PA-C [address] [place], [place] [address] test results/VNG/[facility] 10-22-24 [facility] Ear, [facility]ose, [facility] Throat (ENT) Comment on above: test results/VNG/[facility] 10-22-24 Start: 10-26-2024 End: 10-26-2024 ambulatory 10/26/2024 1:45 PM EDT OT/PT/Speech Visit Speech Therapy [facility] [address] [place] [address] Kimi Dinero CCC-CRYOLITE RECOVERY OPERATOR [address] [place] [address] (Covid Recovery) Speech Therapy [facility] Comment on above: (Covid Recovery) Start: 10-26-2024 End: 10-26-2024 Patient encounter procedure 10/26/2024 12:30 PM EDT OT/PT/Speech Visit Neurology PT Outpatient [facility] [address] [place] [address] [place] [address] [place] [address] R42 (ICD-10-CM) - Dizziness Neurology PT Outpatient [facility] Comment on above: R42 (ICD-10-CM) - Dizziness Start: 10-25-2024 End: 10-25-2024 ambulatory Neurology Comment on above: QSART r QSART Start: 10-25-2024 End: 10-25-2024 Follow-up encounter 10/25/2024 8:15 AM EDT Procedure Neurology [address] [place] [address] FOLLOW UP Neurology Comment on above: FOLLOW UP Start: 10-22-2024 End: 10-22-2024 Patient encounter procedure 10/22/2024 10:30 AM EDT Office Visit [facility] [address] [place] [address] Blessing Wright AUD 1 [place] [place] [address] [facility] Comment on above: VNG Start: 10-18-2024 End: 10-18-2024 ambulatory 10/18/2024 3:00 PM EDT OT/PT/Speech Visit Speech Therapy [facility] [address] [place] [address] Kimi Dinero, KANDI-CRYOLITE RECOVERY OPERATOR [address] [place] [address] (Covid Recovery) Speech Therapy [facility] Comment on above: (Covid Recovery) Start: 10-18-2024 End: 10-18-2024 Patient encounter procedure 10/18/2024 1:45 PM EDT OT/PT/Speech Visit Neurology PT Outpatient [facility] [address] [place] [address] [place] [address] [place] [address] R42 (ICD-10-CM) - Dizziness Neurology PT Outpatient [facility] Comment on above: R42 (ICD-10-CM) - Dizziness Start: 10-11-2024 End: 10-11-2024 Follow-up encounter 10/11/2024 4:00 PM EDT [facility] Neurological [facility] [address] [place] [address] Joann Braxton, PhD [address] [place] [address] Follow up Neurological [facility] Comment on above: Follow up Start: 10-11-2024 End: 10-11-2024 Patient encounter procedure 10/11/2024 1:45 PM EDT OT/PT/Speech Visit Neurology PT Outpatient [facility] [address] [place] [address] [place] [address] [place] [address] R42 (ICD-10-CM) - Dizziness Neurology PT Outpatient [facility] Comment on above: R42 (ICD-10-CM) - Dizziness Start: 10-11-2024 End: 10-11-2024 Patient encounter procedure 10/11/2024 11:40 AM EDT Office Visit [facility] [address] [place], [place] [id number] Daniel Guerrero DO [address] [place] [address] ER Follow up with Daniel guerrero [facility] Comment on above: ER Follow up with Daniel guerrero Start: 10-10-2024 End: 10-10-2024 Patient encounter procedure 10/10/2024 3:00 PM EDT Office Visit [facility] [address] [place], [place] [id number] Susan Singh MD [address] [facility] [address] [place], [place] [id number] TCM [facility] Comment on above: TCM Start: 10-08-2024 End: 10-08-2024 Patient encounter procedure 10/08/2024 1:00 PM EDT Office Visit Otolaryngology [address] [address] Sharlene Means, PhD, [facility]-CRYOLITE RECOVERY OPERATOR [address] [place] [address] follow up speech therapy Otolaryngology Comment on above: follow up speech therapy Start: 10-04-2024 End: 10-04-2024 Patient encounter procedure 10/04/2024 11:45 AM EDT Office Visit Gastroenterology [address] [place] [address] Makenzie Lynn APRN.[facility] [address] [place] [address] Follow up from tests Gastroenterology Comment on above: Follow up from tests Start: 10-01-2024 End: 10-01-2024 ambulatory 10/01/2024 2:15 PM EDT OT/PT/Speech Visit Speech Therapy [facility] [address] [place] [address] Kimi Dinero, CCC-CRYOLITE RECOVERY OPERATOR [address] [place] [address] (Covid Recovery) Speech Therapy [facility] Comment on above: (Covid Recovery) Start: 09-28-2024 End: 09-28-2024 Patient encounter procedure [facility] Comment on above: R00.0 (ICD-10-CM) - Tachycardia F/U 4 weeks ?ASTHMA/URTICARIA F/ U 4 weeks Start: 09-27-2024 End: 09-27-2024 Patient encounter procedure 09/27/2024 10:00 AM EDT Office Visit [facility] [address] [address] Apple Grady PA-C [address] [place] [address] 2 M follow up [facility] Comment on above: 2 M follow up Start: 09-26-2024 End: 09-26-2024 Patient encounter procedure [facility] Comment on above: frequent UTI, negative tests frequent UTI, negati ve tests/HAS IC/NEEDS VAGINAL SWAB FOR BV(mkk) Start: 09-24-2024 End: 09-24-2024 ambulatory 09/24/2024 2:15 PM EDT OT/PT/Speech Visit Speech Therapy [facility] [address] [place] [address] Kimi Dinero, [facility]-CRYOLITE RECOVERY OPERATOR [address] [place] [address] (Covid Recovery) Speech Therapy [facility] Comment on above: (Covid Recovery) Start: 09-21-2024 End: 09-21-2024 Patient encounter procedure 09/21/2024 10:30 AM EDT Office Visit [facility] [address] [place] [phone] Renato Luke R Ac [address] [place] [address] R00.0 (ICD-10-CM) - Tachycardia [facility] Comment on above: R00.0 (ICD-10-CM) - Tachycardia Start: 09-19-2024 End: 09-19-2024 Follow-up encounter 09/19/2024 1:30 PM EDT [facility] Gastroenterology [address] [address] Samra Rose APRN.HORSE SHOER [address] [place] [address] Follow up,medication,MyChart request Gastroenterology Comment on above: Follow up,medication,MyChart request Start: 09-17-2024 End: 09-17-2024 Patient encounter procedure 09/17/2024 3:45 PM EDT OT/PT/Speech Visit Neurology PT Outpatient [facility] [address] [place] [address] [place] [address] [place] [address] R42 (ICD-10-CM) - Dizziness Neurology PT Outpatient [facility] Comment on above: R42 (ICD-10-CM) - Dizziness Start: 09-17-2024 End: 09-17-2024 Patient encounter procedure 09/17/2024 2:15 PM EDT OT/PT/Speech Visit Speech Therapy [facility] [address] [place] [address] Kimi Dinero, CCC-CRYOLITE RECOVERY OPERATOR [address] [place] [address] Consult New (Covid Recovery) Speech Therapy [facility] Comment on above: Consult New (Covid Recovery) Start: 09-17-2024 End: 09-17-2024 Patient encounter procedure 09/17/2024 10:15 AM EDT Office Visit Otolaryngology [address] [address] Sharlene Means, PhD, [facility]-CRYOLITE RECOVERY OPERATOR [address] [place] [address] 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] Otolaryngology Comment on above: Inducible laryngeal obstruction (ILO) [J 38.7] Start: 09-14-2024 End: 09-14-2024 Patient encounter procedure 09/14/2024 11:00 AM EST Office Visit Integrated Medicine [address] [place] [address] Renato Luke R Ac [address] [place] [address] R00.0 (ICD-10-CM) - Tachycardia [facility] Comment on above: R00.0 (ICD-10-CM) - Tachycardia Start: 09-13-2024 End: 09-13-2024 ambulatory 09/13/2024 1:00 PM EST [facility] [place] [address] [place] [address] Ramses Pyle MD [address] [address] overdue 6 mo Dizziness srs [facility] Cardiology [place] Comment on above: overdue 6 mo Dizziness srs Start: 09-13-2024 End: 09-13-2024 Patient encounter procedure [facility] [place] Comment on above: overdue 6 mo Dizziness srs speech therapy Dx: Tachycardia [R00 .0]; POTS (postural orthostatic tachycardia syndrome) [G90.A]; Raynaud's disease without gangrene [I73.00] Start: 09-07-2024 End: 09-07-2024 Patient encounter procedure 09/07/2024 11:30 AM EST Office Visit Integrated [facility] [address] [place] [address] Renato Luke R Ac [address] [place] [address] R00.0 (ICD-10-CM) - Tachycardia [facility] Comment on above: R00.0 (ICD-10-CM) - Tachycardia Start: 09-05-2024 End: 09-05-2024 Patient encounter procedure 09/05/2024 2:15 PM EST OT/PT/Speech Visit Speech Therapy [facility] [address] [place] [address] Kimi Dinero CCC-CRYOLITE RECOVERY OPERATOR [address] [place] [address] Consult New (Covid Recovery) Speech Therapy [facility] Comment on above: Consult New (Covid Recovery) Start: 09-05-2024 End: 09-05-2024 Patient encounter procedure 09/05/2024 11:30 AM EST OT/PT/Speech Visit Neurology PT Outpatient [facility] [address] [place] [address] [place] [address] [place] [address] R42 (ICD-10-CM) - Dizziness Neurology PT Outpatient [facility] Comment on above: R42 (ICD-10-CM) - Dizziness Start: 09-05-2024 End: 09-05-2024 Patient encounter procedure [facility] Comment on above: Dizziness [R42] hearing test (Jodie l pt) Start: 09-04-2024 End: 09-04-2024 Patient encounter procedure [facility] Comment on above: referral per Dr. Pyle for svt/vtach. MS referral per Dr. Lelia baldwin for svt/vtach. MSEKG/eo ECHO Start: 09-03-2024 End: 09-03-2024 Patient encounter procedure Neurology Comment on above: Headaches [R51.9] 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] speech therapy Start: 08-31-2024 End: 11-30-2024 TRYPTASE BLOOD [facility] Work Phone: Comment on above: Expected: 08/31/2024, Expires: Start: 08-31-2024 End: 08-31-2024 Patient encounter procedure 08/31/2024 10:30 AM EST Office Visit [facility] Medicine [address] [place] [address] Renato Luke R Ac [address] [place] [address] R00.0 (ICD-10-CM) - Tachycardia [facility] Comment on above: R00.0 (ICD-10-CM) - Tachycardia Start: 08-30-2024 End: 11-29-2024 METANEPHRINES, FREE PLASMA METANEPHRINES, FREE PLASMA Lab Routine Palpitations POTS (postural orthostatic tachycardia syndrome) Sinus tachycardia Expected: 08/30/2024, Expires: 11/29/2024 [facility] Comment on above: Expected: 08/30/2024, Expires: Start: 08-30-2024 End: 11-29-2024 Thyrotropin [Units/volume] in Serum or Plasma THYROID STIMULATING HORMONE Lab Routine Palpitations POTS (postural orthostatic tachycardia syndrome) Sinus tachycardia Expected: 08/30/2024, Expires: 11/29/2024 [facility] Comment on above: Expected: 08/30/2024, Expires: Start: 08-30-2024 End: 11-29-2024 Thyroxine (T4) free [Mass/volume] in Serum or Plasma T4 FREE/FREE THYROXINE Lab Routine Palpitations POTS (postural orthostatic tachycardia syndrome) Sinus tachycardia Expected: 08/30/2024, Expires: 11/29/2024 [facility] Comment on above: Expected: 08/30/2024, Expires: Start: 08-30-2024 End: 11-29-2024 Triiodothyronine (T3) [Mass/volume] in Serum or Plasma T3 Lab Routine Palpitations POTS (postural orthostatic tachycardia syndrome) Sinus tachycardia Expected: 08/30/2024, Expires: 11/29/2024 [facility] Comment on above: Expected: 08/30/2024, Expires: Start: 08-30-2024 End: 08-30-2024 Patient encounter procedure Cardiology Comment on above: POTS (postural orthostatic tachycardia s yndrome) [G90.A] Start: 08-29-2024 End: 08-29-2024 Patient encounter procedure 08/29/2024 10:00 AM EST Office Visit Allergy [address] [place] [address] Fely Garcia, MARCO.COMPUTER OPERATIONS MANAGER [address] [place] [address] F/U 4 weeks Allergy Comment on above: F/U 4 weeks Start: 08-27-2024 End: 08-27-2024 Patient encounter procedure Neurology PT Outpatient [facility] Comment on above: R42 (ICD-10-CM) - Dizziness Consult New (Covid R ecovery) Start: 08-25-2024 End: 08-25-2024 Follow-up encounter 08/25/2024 12:00 PM EST [facility] Neurological [facility] [address] [place] [address] Joann Braxton, PhD [address] [place] [address] Follow up Neurological [facility] Comment on above: Follow up Start: 08-24-2024 End: 08-24-2024 Patient encounter procedure 08/24/2024 12:00 PM EST Office Visit [facility] [address] [place] [phone] Renato Luke R Ac [address] [place] [address] R00.0 (ICD-10-CM) - Tachycardia [facility] Comment on above: R00.0 (ICD-10-CM) - Tachycardia Start: 08-23-2024 End: 08-23-2024 ambulatory 08/23/2024 1:00 PM EST [facility] Pulmonology [facility] [address] [place] [address] Martha Hassan PA-C [address] [place] [address] Return for Virtual f/u with me, review results in 4-6 weeks. Pulmonology [facility] Comment on above: Return for Virtual f/u with me, review r esults in 4-6 weeks. Start: 2024 HPV Vaccine (1 - 3-dose SCDM series) HPV Vaccine (1 - 3-dose SCDM series) [facility] Start: 2024 End: 2024 Patient encounter procedure 2024 9:30 AM EST Office Visit Otolaryngology [address] [address] Sharlene Means, PhD, CCC-CRYOLITE RECOVERY OPERATOR [address] [facility] [address] speech therapy Otolaryngology Comment on above: speech therapy Start: 08-20-2024 End: 08-20-2024 Patient encounter procedure 08/20/2024 1:15 PM EST OT/PT/Speech Visit Neurology PT Outpatient [facility] [address] [place] [address] [place] [address] [place] [address] R42 (ICD-10-CM) - Dizziness Neurology PT Outpatient [facility] Comment on above: R42 (ICD-10-CM) - Dizziness Start: 08-20-2024 End: 08-20-2024 Patient encounter procedure 08/20/2024 9:15 AM EST OT/PT/Speech Visit Speech Therapy [facility] [address] [place] [address] Kimi Dinero, CCC-CRYOLITE RECOVERY OPERATOR [address] [place] [address] Consult New (Covid Recovery) Speech Therapy [facility] Comment on above: Consult New (Covid Recovery) Start: 08-17-2024 End: 08-17-2024 Patient encounter procedure 08/17/2024 2:00 PM EST Office Visit Integrated [facility] [address] [place] [phone] Renato Luke R Ac [address] [place] [address] [facility] Comment on above: SOBO Start: 08-17-2024 End: 08-17-2024 ambulatory 08/17/2024 9:00 AM EST [facility] Pulmonology [facility] [address] [place] [address] [place] [address] [place] [address] Return for Virtual f/u with me, review results in 4-6 weeks. Pulmonology [facility] Comment on above: Return for Virtual f/u with me, review r esults in 4-6 weeks. Start: 08-15-2024 End: 08-15-2024 Patient encounter procedure [facility] Comment on above: Fibromyalgia info R42 (ICD-10-CM) - Di rahulness Start: 08-14-2024 End: 08-14-2024 Patient encounter procedure 08/14/2024 4:00 PM EST OT/PT/Speech Visit Speech Therapy [facility] [address] [place] [address] Kimi Dinero, CCC-CRYOLITE RECOVERY OPERATOR [address] [place] [address] Consult New (Covid Recovery) Speech Therapy [facility] Comment on above: Consult New (Covid Recovery) Start: 08-11-2024 End: 08-11-2024 Follow-up encounter 08/11/2024 12:00 PM EST [facility] [address] [place] [address] Joann Braxton, PhD [address] [place], [place] [id number] Follow up [facility] Comment on above: Follow up Start: 08-07-2024 End: 08-07-2024 Patient encounter procedure 08/07/2024 1:45 PM EST Office Visit Otolaryngology [address] [address] Sharlene Means, PhD, CCC-CRYOLITE RECOVERY OPERATOR [address] [place] [address] CONSULT TO SPEECH THERAPY 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] Fely Garcia, MARCO.COMPUTER OPERATIONS MANAGER in [facility] [place] schedule with Sharlene Means or other Otolaryngology Comment on above: CONSULT TO SPEECH THERAPY Inducible abdoulaye ngeal obstruction (ILO) [J38.7] Fely Garcia APRN.COMPUTER OPERATIONS MANAGER in [facility] [place] schedule with Sharlene Means or other Start: 08-07-2024 End: 08-07-2024 ambulatory 08/07/2024 11:30 AM EST [facility] [address] [place] [address] Joann Braxton, PhD [address] [place], [place] [id number] Vertigo of central origin [H81.4] [facility] Comment on above: Vertigo of central origin [H81.4] Start: 08-07-2024 End: 08-07-2024 Nursing evaluation of patient and report 08/07/2024 10:00 AM EST Nurse Visit [facility] [address] [place] [address] b12 [facility] Comment on above: b12 Start: 08-06-2024 End: 08-06-2024 Patient encounter procedure 08/06/2024 12:15 PM EST OT/PT/Speech Visit Neurology PT Outpatient [facility] [address] [place] [address] [place] [address] [place] [address] Dizziness [R42] Neurology PT Outpatient [facility] Comment on above: Dizziness [R42] Start: 07-30-2024 End: 07-30-2024 Patient encounter procedure 07/30/2024 1:00 PM EST Office Visit [facility] [address] [place] [address] Renato Luke R Ac [address] [place] [address] NEW ACU [facility] Comment on above: NEW ACU Start: 07-28-2024 End: 07-28-2024 Follow-up encounter 07/28/2024 12:00 PM EST [facility] [address] [place] [address] Joann Braxton, PhD [address] [place], [place] [id number] Follow up [facility] Comment on above: Follow up Start: 07-26-2024 End: 07-26-2024 Patient encounter procedure 07/26/2024 11:00 AM EST Office Visit [facility] [address] [facility] [address] [place] [address] Apple Grady PA-C [address] [place], [place] [phone] Shortness of breath [R06.02] [facility] Comment on above: Shortness of breath [R06.02] Start: 07-23-2024 End: 07-23-2024 Patient encounter procedure Allergy Comment on above: 3 month follow up ?ASTHMA/3 month foll ow up Start: 07-21-2024 Annual PCP Team Chronic Disease Visit Annual PCP Team Chronic Disease Visit [facility] Start: 07-19-2024 End: 07-19-2024 Patient encounter procedure 07/19/2024 9:30 AM EST OT/PT/Speech Visit Speech Therapy [facility] [address] [place] [address] Kimi Dinero, [facility]-CRYOLITE RECOVERY OPERATOR [address] [place] [address] Consult New (Covid Recovery) Speech Therapy [facility] Comment on above: Consult New (Covid Recovery) Start: 07-18-2024 End: 10-17-2024 17-Hydroxyprogesterone [Mass/volume] in Serum or Plasma HYDROXYPROGESTERONE-17 Lab Routine PCOS (polycystic ovarian syndrome) Expected: 07/18/2024, Expires: 10/17/2024 [facility] Comment on above: Expected: 07/18/2024, Expires: Start: 07-18-2024 End: 10-17-2024 Comprehensive metabolic 2000 panel - Serum or Plasma COMPREHENSIVE METABOLIC PANEL Lab Routine PCOS (polycystic ovarian syndrome) Expected: 07/18/2024, Expires: 10/17/2024 [facility] Comment on above: Expected: 07/18/2024, Expires: Start: 07-18-2024 End: 10-17-2024 Hemoglobin A1c in Blood HEMOGLOBIN A1C Lab Routine PCOS (polycystic ovarian syndrome) Expected: 07/18/2024, Expires: 10/17/2024 [facility] Work Phone: Comment on above: Expected: 07/18/2024, Expires: Start: 07-18-2024 End: 07-18-2024 Patient encounter procedure 07/18/2024 2:00 PM EST Office Visit [facility] [address] [place] [address] Aliza Boyd MD [address] [place] [address] New patient--PCOS [facility] Endocrinology Comment on above: New patient--PCOS Start: 07-16-2024 End: 07-16-2024 Patient encounter procedure 07/16/2024 12:55 PM EST Office Visit Neurology [address] [place] [id number] Smiley Barraza, PA-C [address] [place], [place] [id number] Headaches [R51.9] Neurology Comment on above: Headaches [R51.9] Start: 07-14-2024 End: 07-14-2024 Follow-up encounter 07/14/2024 2:00 PM EST [facility] [address] [place] [address] Joann Braxton, PhD [address] [place] [address] Follow up [facility] Comment on above: Follow up Start: 07-13-2024 End: 10-12-2024 Cyclic citrullinated peptide IgG Ab [Units/volume] in Serum or Plasma [facility] Comment on above: Expected: 07/13/2024, Expires: Start: 07-13-2024 End: 10-12-2024 Rheumatoid factor [Units/volume] in Serum or Plasma [facility] Work Phone: Comment on above: Expected: 07/13/2024, Expires: Start: 07-13-2024 End: 10-12-2024 Ribonucleoprotein extractable nuclear Ab [Units/volume] in Serum [facility] Comment on above: Expected: 07/13/2024, Expires: Start: 07-13-2024 End: 10-12-2024 SJOGREN ABS SSA/SSB [facility] Comment on above: Expected: 07/13/2024, Expires: Start: 07-13-2024 End: 07-13-2024 Patient encounter procedure [facility] Comment on above: New sdrxfph-Vdyr-eacnlwv disorder, relat ed to POTS diagnosis New gqxgecd-Uorc-tfy uine disorder, related to POTS diagnosis Self/epic cs Start: 07-09-2024 End: 07-09-2025 25-hydroxyvitamin D3 [Mass/volume] in Serum or Plasma [facility] Comment on above: Expected: 07/09/2024, Expires: Start: 07-09-2024 End: 07-09-2025 C reactive protein [Mass/volume] in Serum or Plasma [facility] Comment on above: Expected: 07/09/2024, Expires: Start: 07-09-2024 End: 07-09-2025 Cobalamin (Vitamin B12) [Mass/volume] in Serum or Plasma [facility] Comment on above: Expected: 07/09/2024, Expires: Start: 07-09-2024 End: 07-09-2025 Comprehensive metabolic 2000 panel - Serum or Plasma [facility] Work Phone: Comment on above: Expected: 07/09/2024, Expires: Start: 07-09-2024 End: 07-09-2025 Ferritin [Mass/volume] in Serum or Plasma [facility] Comment on above: Expected: 07/09/2024, Expires: Start: 07-09-2024 End: 07-09-2025 Folate [Mass/volume] in Serum or Plasma [facility] Comment on above: Expected: 07/09/2024, Expires: Start: 07-09-2024 End: 07-09-2025 OMEGACHECK [facility] Comment on above: Expected: 07/09/2024, Expires: Start: 07-09-2024 End: 07-09-2025 Thyrotropin [Units/volume] in Serum or Plasma [facility] Comment on above: Expected: 07/09/2024, Expires: Start: 07-09-2024 End: 07-09-2025 TRACE ELEMENTS/TPN [facility] Comment on above: Expected: 07/09/2024, Expires: Start: 07-09-2024 End: 07-09-2024 Patient encounter procedure Pulmonology [facility] Comment on above: DX: Headaches [R51.9] Esophageal spasm [K2 2.4] CR-C DX: Headaches [ R51.9] Start: 07-06-2024 End: 07-06-2024 Patient encounter procedure 07/06/2024 8:00 AM EST Office Visit [facility] [address] [place] [address] B12 injection [facility] Comment on above: B12 injection Start: 06-22-2024 End: 06-22-2024 Patient encounter procedure 06/22/2024 10:00 AM EST Office Visit Pulmonary Medicine [address] [place] [address] Nicola Teixeira, 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.HORSE SHOER [address] [place] [address]k [address] [place] [address] 3 month f/u Pulmonary Medicine Comment on above: 3 month f/u Start: 06-22-2024 End: 06-22-2024 ambulatory PULM LAB COUNT INCLUDES [facility] Comment on above: Moderate persistent asthma without compl ication [J45.40] Start: 06-19-2024 End: 06-19-2024 ambulatory 06/19/2024 1:00 PM EST [facility] [address] [place] [address] Joann Braxton, PhD [address] [place] [address] Vertigo of central origin [H81.4] [facility] Comment on above: Vertigo of central origin [H81.4] Start: 06-18-2024 End: 06-18-2024 Patient encounter procedure Radiology Comment on above: XR MODIFIED BARIUM SWALLOW W SPEECH THER APY Start: 06-14-2024 End: 06-14-2024 Patient encounter procedure 06/14/2024 8:45 AM EST Appointment Radiology [address] [place] [id number] Chest pain, unspecified type [R07.9]CTA CORONARY W IVCON [[id number]] [facility] Radiology Comment on above: Chest pain, unspecified type [R07.9]CTA CORONARY W IVCON [[id number]] AWARE MAIN Start: 06-11-2024 End: 06-11-2024 Nursing evaluation of patient and report 06/11/2024 8:30 AM EST Nurse Visit Gastroenterology [address] [address] 2, Nurse Gi Lab [address] [address] Dysphagia, unspecified type [ Gastroenterology Comment on above: Dysphagia, unspecified type [ Start: 06-05-2024 End: 06-05-2024 Follow-up encounter 06/05/2024 3:50 PM EST [facility] Gastroenterology [address] [place] [address] Makenzie Lynn APRN.HORSE SHOER [address] [address] Follow Up GERD Gastroenterology Comment on above: Follow Up GERD Start: 06-05-2024 End: 06-05-2024 Patient encounter procedure 06/05/2024 10:00 AM EST Office Visit [facility] [address] [place], [place] [id number] Return in 1 month for B12 injections with nursing [facility] Comment on above: Return in 1 month for B12 injections wit h nursing Start: 05-15-2024 End: 08-14-2024 Topiramate [Mass/volume] in Serum or Plasma TOPIRAMATE BLD Lab Routine Intractable migraine without aura and without status migrainosus Expected: 05/15/2024, Expires: 08/14/2024 [facility] Work Phone: Comment on above: Expected: 05/15/2024, Expires: Start: 05-15-2024 End: 05-15-2024 Patient encounter procedure 05/15/2024 8:00 AM EST Office Visit Neurology [address] [place] [address] [place] [address] [place], [place] [id number] Follow Up Neurology Comment on above: Follow Up Start: 05-10-2024 End: 05-10-2024 Patient encounter procedure 05/10/2024 2:00 PM EDT Office Visit [facility] [address] [place], [place] [id number] Daniel Guerrero, [address] [place], [place] [id number] est [facility] Comment on above: est new care Start: 05-02-2024 End: 04-25-2025 Potassium [Moles/volume] in Serum or Plasma Potassium Lab Routine POTS (postural orthostatic tachycardia syndrome) Expected: 05/02/2024 (Approximate), Expires: 04/25/2025 [facility] Work Phone: Comment on above: Expected: 05/02/2024 (Approximate), Expi res: 04/25/2025 Start: 05-01-2024 End: 05-01-2024 Patient encounter procedure [facility] Cardiology Start: 04-28-2024 End: 04-28-2024 Patient encounter procedure 04/28/2024 4:00 PM EDT Appointment Radiology [address] [place] [address] 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 [place] [address] Ambulatory Surgery Start: 04-27-2024 End: 04-27-2024 [facility] Start: 04-26-2024 End: 04-26-2024 Admission to same day surgery center 04/26/2024 10:30 AM EDT - 04/26/2024 11:50 AM EDT Surgery [facility] [address] [place] [address] Milla Motley MD [address] [facility] [address] [place] [address] TILT TABLE [facility] Comment on above: TILT TABLE Start: 04-26-2024 End: 04-26-2024 Cardiovascular function eval w/tilt table w/mntr TILT TABLE Syncope, unspecified syncope type Dizziness 04/26/2024 10:30 AM EDT [facility] Start: 04-26-2024 Subsequent hospital visit by physician [facility] Comment on above: Syncope, unspecified syncope type [R55], Dizziness [R42] Start: 04-25-2024 End: 04-25-2024 Patient encounter procedure Allergy Comment on above: est patient, new food allergy ?ASTHMA//est patient , new food allergy Start: 04-24-2024 End: 04-24-2024 Patient encounter procedure 04/24/2024 3:00 PM EDT Office Visit Allergy [address] [address] Mickie Dickinson MD [address] [place] [address] Multiple environmental allergies [Z91.09] Allergy Comment on above: Multiple environmental allergies [Z91.09 ] Start: 04-19-2024 End: 04-19-2024 Patient encounter procedure 04/19/2024 1:20 PM EDT Office Visit [facility] [address] [place] [address] Boubacar Sky 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.HORSE SHOER [address] [place] [id number] 5 Week Follow-up [facility] Comment on above: 5 Week Follow-up Start: 04-19-2024 End: 04-19-2024 Follow-up encounter 04/19/2024 10:00 AM EDT [facility] [address] [place] [address] Andre Falk PTA [facility] Start: 04-17-2024 End: 04-17-2024 ambulatory 04/17/2024 2:15 PM EDT [facility] [id number] [place] [address] Makenzie Lynn APRN.HORSE SHOER [address] [place] [address] GERD Gastroenterology Comment on above: GERD Start: 04-13-2024 End: 04-13-2024 Manual pelvic examination 04/13/2024 11:00 AM EDT OT/PT/Speech Visit [facility] [address] [place] [address] Nida Salas, PT [address] [place] [address] pelvic floor [facility] Comment on above: pelvic floor Start: 04-12-2024 End: 04-12-2024 Follow-up encounter 04/12/2024 1:30 PM EDT [facility] [address] [facility] [place] [address] [place] [phone] Jessica Bird, 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 - HORSE SHOER [address] [place] [phone] Andre Falk PTA [facility] Start: 04-04-2024 End: 04-04-2024 Patient encounter procedure 04/04/2024 12:00 PM EDT Appointment [facility] [address] [place] [address] Syncope, unspecified syncope type [R55]; Dizziness [R42] [facility] Comment on above: Syncope, unspecified syncope type [R55]; Dizziness [R42] Start: 04-04-2024 Subsequent hospital visit by physician 04/04/2024 12:00 PM EDT Hospital Encounter [facility] [address] [place] [address] Syncope, unspecified syncope type [R55] [facility] Comment on above: Syncope, unspecified syncope type [R55] Start: 04-03-2024 End: 04-03-2024 Patient encounter procedure 04/03/2024 8:00 AM EDT Office Visit Neurology [address] [place] [address] [place] [address] [place] [address] Severe dizziness, headaches, and brain fog Neurology Comment on above: Severe dizziness, headaches, and brain f og Start: 03-29-2024 End: 03-29-2024 Patient encounter procedure [facility] Comment on above: Self Ref; Tachycardia/EKG changes/CP Self Ref; Tachycardi a/EKG changes/CP-jmt-EKG Start: 03-29-2024 End: 06-28-2024 Helicobacter pylori IgG Ab [Presence] in Serum or Plasma by Immunoassay [facility] Work Phone: Comment on above: Expected: 03/29/2024, Expires: Start: 03-29-2024 End: 03-29-2024 Patient encounter procedure 03/29/2024 10:40 AM EDT Office Visit [facility] [address] [place] [address] Boubacar Sky APRN.HORSE SHOER [address] [place] [address] 6 Week Follow-up [facility] Comment on above: 6 Week Follow-up Start: 03-20-2024 End: 03-20-2024 Patient encounter procedure 03/20/2024 9:00 AM EDT Office Visit Pulmonary Medicine [address] [place] [address] Nicola Teixeira APRN.HORSE SHOER [address] [place] [address] Asthma Pulmonary Medicine Comment on above: Asthma Start: 03-14-2024 End: 03-14-2024 Patient encounter procedure 03/14/2024 9:30 AM EDT Office Visit [facility] Cardiology [address] [place] [phone] Jessica Bird APRN - HORSE SHOER [address] [place] [phone] [facility] Start: 03-11-2024 Covid-19 Vaccine ( season) Covid-19 Vaccine ( season) [facility] Start: 03-11-2024 Covid-19 Vaccine ( season) Covid-19 Vaccine ( season) [facility] Start: 03-11-2024 Influenza vaccination [facility] Start: 03-06-2024 End: 03-06-2024 Patient encounter procedure 03/06/2024 1:00 PM EDT Appointment [facility] [address] Non-Invasive Cardiology [address] [place] [phone] [facility] [address] Non-Invasive [facility] Start: 02-16-2024 End: 05-17-2024 KARMA BY IFA WITH REFLEX [facility] Comment on above: Expected: 02/16/2024, Expires: Start: 02-16-2024 End: 05-17-2024 Cobalamin (Vitamin B12) [Mass/volume] in Serum or Plasma [facility] Comment on above: Expected: 02/16/2024, Expires: Start: 02-16-2024 End: 05-17-2024 Comprehensive metabolic 2000 panel - Serum or Plasma [facility] Work Phone: Comment on above: Expected: 02/16/2024, Expires: Start: 02-16-2024 Depression Screening Depression Screening [facility] Comment on above: Postponed from 2015 ([facility]) Start: 02-16-2024 End: 05-17-2024 Hepatitis B virus surface Ab [Presence] in Serum [facility] Comment on above: Expected: 02/16/2024, Expires: Start: 02-16-2024 End: 05-17-2024 HIV 1+2 Ab [Presence] in Serum or Plasma by Immunoassay [facility] Comment on above: Expected: 02/16/2024, Expires: Start: 02-16-2024 End: 05-17-2024 Thyrotropin [Units/volume] in Serum or Plasma [facility] Comment on above: Expected: 02/16/2024, Expires: Start: 02-11-2024 ANNUAL PCP TEAM CHRONIC DISEASE VISIT ANNUAL PCP TEAM CHRONIC DISEASE VISIT [facility] Start: 08-11-2023 End: 11-10-2023 DHEA-S BLD DHEA-S BLD Lab Routine Secondary amenorrhea Expected: 08/11/2023, Expires: 11/10/2023 [facility] Work Phone: Comment on above: Expected: 08/11/2023, Expires: Start: 08-11-2023 End: 11-10-2023 Estradiol (E2) [Mass/volume] in Serum or Plasma ESTRADIOL-17B BLD Lab Routine Secondary amenorrhea Expected: 08/11/2023, Expires: 11/10/2023 [facility] Work Phone: Comment on above: Expected: 08/11/2023, Expires: Start: 08-11-2023 End: 11-10-2023 Follitropin [Units/volume] in Serum or Plasma FSH BLD Lab Routine Secondary amenorrhea Expected: 08/11/2023, Expires: 11/10/2023 [facility] Work Phone: Comment on above: Expected: 08/11/2023, Expires: Start: 08-11-2023 End: 09-10-2023 Lutropin [Units/volume] in Serum or Plasma LUTEINIZING HORMONE Lab Routine Secondary amenorrhea Expected: 08/11/2023, Expires: 09/10/2023 [facility] Work Phone: Comment on above: Expected: 08/11/2023, Expires: Start: 08-11-2023 End: 11-10-2023 Prolactin [Mass/volume] in Serum or Plasma PROLACTIN BLD Lab Routine Secondary amenorrhea Expected: 08/11/2023, Expires: 11/10/2023 [facility] Work Phone: Comment on above: Expected: 08/11/2023, Expires: Start: 08-11-2023 End: 11-10-2023 TESTOSTERONE, FREE AND TOTAL TESTOSTERONE, FREE AND TOTAL Lab Routine Secondary amenorrhea Expected: 08/11/2023, Expires: 11/10/2023 [facility] Work Phone: Comment on above: Expected: 08/11/2023, Expires: Start: 08-11-2023 End: 11-10-2023 Thyrotropin [Units/volume] in Serum or Plasma TSH BLD Lab Routine Secondary amenorrhea Expected: 08/11/2023, Expires: 11/10/2023 [facility] Work Phone: Comment on above: Expected: 08/11/2023, Expires: Start: 07-11-2023 Behavioral Health Screening Behavioral Health Screening [facility] Start: 07-11-2023 Depression Assessment Depression Assessment [facility] Start: 03-11-2023 Covid-19 Vaccine () Covid-19 Vaccine () [facility] Start: 03-11-2023 Influenza vaccination [facility] Start: 03-10-2023 End: 05-10-2023 ALGN EGG COMPONENTS ALGN EGG COMPONENTS Lab Routine Food allergy Expected: 03/10/2023, Expires: 05/10/2023 [facility] Work Phone: Comment on above: Expected: 03/10/2023, Expires: Start: 03-10-2023 End: 05-10-2023 ALGN PEANUT IGE, WITH COMPONENT REFLEX ALGN PEANUT IGE, WITH COMPONENT REFLEX Lab Routine H/O peanut allergy Expected: 03/10/2023, Expires: 05/10/2023 [facility] Work Phone: Comment on above: Expected: 03/10/2023, Expires: Start: 03-10-2023 End: 05-10-2023 ALLERGEN, COW MILK COMPONENTS IGE ALLERGEN, COW MILK COMPONENTS IGE Lab Routine Cow's milk allergy Expected: 03/10/2023, Expires: 05/10/2023 [facility] Work Phone: Comment on above: Expected: 03/10/2023, Expires: Start: 03-10-2023 End: 05-10-2023 ALLERGEN, HAZELNUT COMPONENTS IGE ALLERGEN, HAZELNUT COMPONENTS IGE Lab Routine Tree nut allergy Expected: 03/10/2023, Expires: 05/10/2023 [facility] Work Phone: Comment on above: Expected: 03/10/2023, Expires: Start: 03-10-2023 End: 05-10-2023 ALLERGEN, WALNUT COMPONENTS IGE ALLERGEN, WALNUT COMPONENTS IGE Lab Routine Tree nut allergy Expected: 03/10/2023, Expires: 05/10/2023 [facility] Work Phone: Comment on above: Expected: 03/10/2023, Expires: 3 Start: 03-10-2023 End: 05-10-2023 TRYPTASE BLOOD TRYPTASE BLOOD Lab Routine Cow's milk allergy Food allergy Expected: 03/10/2023, Expires: 05/10/2023 [facility] Work Phone: Comment on above: Expected: 03/10/2023, Expires: 3 Start: 10-22-2022 End: 12-22-2022 ALGN [facility] Work Phone: Comment on above: Expected: 10/22/2022, Expires: 3 Start: 10-12-2022 Adult depression screening assessment DEPRESSION SCREENING [facility] Start: 07-11-2022 DEPRESSION ASSESSMENT DEPRESSION ASSESSMENT [facility] Start: 06-18-2022 End: 08-18-2022 Follitropin [Units/volume] in Serum or Plasma FSH BLD Lab Routine Chronic bladder pain Expected: 06/18/2022, Expires: 08/18/2022 [facility] Work Phone: Comment on above: Expected: 06/18/2022, Expires: 3 Start: 06-18-2022 End: 08-18-2022 Prolactin [Mass/volume] in Serum or Plasma PROLACTIN BLD Lab Routine Chronic bladder pain Expected: 06/18/2022, Expires: 08/18/2022 [facility] Work Phone: Comment on above: Expected: 06/18/2022, Expires: 3 Start: 06-18-2022 End: 08-18-2022 Thyrotropin [Units/volume] in Serum or Plasma TSH BLD Lab Routine Chronic bladder pain Expected: 06/18/2022, Expires: 08/18/2022 [facility] Work Phone: Comment on above: Expected: 06/18/2022, Expires: 3 Start: 03-11-2022 Influenza vaccination [facility] Start: 10-12-2021 End: 12-12-2021 VITAMIN B1 (THIAMINE), WHOLE BLOOD [facility] Work Phone: Comment on above: Expected: 10/12/2021, Expires: 2 Start: 07-11-2021 DEPRESSION ASSESSMENT DEPRESSION ASSESSMENT [facility] Start: 03-11-2021 Influenza vaccination Flu vaccine (Season Ended) [facility] Work Phone: Start: 11-06-2020 End: 11-06-2020 Virtual Visit 11/06/2020 Virtual Visit Gastroenterology Lesley Ruelas PA-C [address] [place] [address] Gastroenterology [place] Start: 10-13-2020 End: 10-13-2020 Appointment 10/13/2020 Appointment IP Unit Sailaja Zhang MD [address] [place] [address] [facility] [address] [facility] Start: 03-11-2020 Influenza vaccination Flu vaccine (#1) [facility] Work Phone: Start: 2018 PAP TESTING PAP TESTING [facility] Start: 2018 Screening for malignant neoplasm of cervix [facility] Start: 03-11-2018 Influenza vaccination given SEQUENTIAL INFLUENZA VACCINE (#1) [facility] Start: 2016 Hepatitis B Vaccine (1 of 3 - 19+ 3-dose series) Hepatitis B Vaccine (1 of 3 - 19+ 3-dose series) [facility] Start: 2016 Hepatitis B Vaccines (1 of 3 - 19+ 3-dose series) Hepatitis B Vaccines (1 of 3 - 19+ 3-dose series) [facility] Start: 2016 Pneumococcal vaccination Pneumococcal Vaccine (1 of 2 - PCV) [facility] Start: 2016 Urine microalbumin profile DTAP,TDAP,TD (1 - Tdap) [facility] Start: 06-03-2016 Hepatitis A vaccine (2 of 2 - 2-dose series) Hepatitis A vaccine (2 of 2 - 2-dose series) [facility] Start: 06-03-2016 Hepatitis A Vaccines (2 of 2 - 2-dose series) Hepatitis A Vaccines (2 of 2 - 2-dose series) [facility] Start: 06-03-2016 IPV Vaccines (3 of 3 - Adult catch-up series) IPV Vaccines (3 of 3 - Adult catch-up series) [facility] Start: 12-30-2015 Varicella vaccination Varicella Vaccines (2 of 2 - 13+ 2-dose series) [facility] Start: 12-02-2015 Varicella vaccine (2 of 2 - 13+ 2-dose series) Varicella vaccine (2 of 2 - 13+ 2-dose series) [facility] Start: 2015 ANNUAL PCP TEAM CHRONIC DISEASE VISIT ANNUAL PCP TEAM CHRONIC DISEASE VISIT [facility] Start: 2015 Depression Screening Depression Screening [facility] Start: 2015 HEPATITIS C SCREENING HEPATITIS C SCREENING [facility] Start: 2015 Hepatitis C screening [facility] Start: 2015 HIV SCREENING HIV SCREENING [facility] Start: 2015 HIV screening HIV Screening [facility] Start: 2015 SPIROMETRY SPIROMETRY [facility] Start: 2013 COVID-19 Vaccine (1) COVID-19 Vaccine (1) [facility] Work Phone: Start: 2013 Screening for Chlamydia trachomatis Chlamydia screen [facility] Start: 2012 HIV screening HIV screen [facility] Start: 2012 HPV Vaccine (1 - 3-dose series) HPV Vaccine (1 - 3-dose series) [facility] Start: 2012 HPV Vaccines (1 - 3-dose series) HPV Vaccines (1 - 3-dose series) [facility] Start: 2011 PEDS TO ADULT TRANSITION ANNUAL ASSESSMENT PEDS TO ADULT TRANSITION ANNUAL ASSESSMENT [facility] Start: 2009 Adult depression screening assessment DEPRESSION SCREENING [facility] Start: 2009 Depression Monitoring Depression Monitoring [facility] Start: 2009 Depression Screen Depression Screen [facility] Start: 2009 PEDS TO ADULT TRANSITION INITIAL DISCUSSION PEDS TO ADULT TRANSITION INITIAL DISCUSSION [facility] Start: 2008 HPV vaccine (1 - 2-dose series) HPV vaccine (1 - 2-dose series) [facility] Start: 2008 HPV Vaccines (1 - 2-dose series) HPV Vaccines (1 - 2-dose series) [facility] Start: 2008 Vaccination for human papillomavirus HPV VACCINES (1 - Female 3-dose series) [facility] Start: 2007 MENINGOCOCCAL B: Consider based on risk (1 of 2 - Risk Bexsero 2-dose series) MENINGOCOCCAL B: Consider based on risk (1 of 2 - Risk Bexsero 2-dose series) [facility] Start: 2006 HPV VACCINE (1 - 2-dose series) HPV VACCINE (1 - 2-dose series) [facility] Start: 2003 PNEUMOCOCCAL (1 - PCV) PNEUMOCOCCAL (1 - PCV) [facility] Start: 2003 Pneumococcal vaccination Pneumococcal Vaccine (1 of 2 - PCV) [facility] Start: 2003 Pneumococcal Vaccine: Pediatrics (0 to 5 Years) and At-Risk Patients (6 to 64 Years) (1 of 2 - PCV) Pneumococcal Vaccine: Pediatrics (0 to 5 Years) and At-Risk Patients (6 to 64 Years) (1 of 2 - PCV) [facility] Start: 2002 COVID-19 VACCINE (1) COVID-19 VACCINE (1) [facility] Start: 02-19-1998 COVID-19 VACCINE (#1) COVID-19 VACCINE (#1) [facility] Start: 1997 HEPATITIS B (1 of 3 - 3-dose series) HEPATITIS B (1 of 3 - 3-dose series) [facility] Start: 1997 Hepatitis B Vaccine (1 of 3 - 3-dose series) Hepatitis B Vaccine (1 of 3 - 3-dose series) [facility] Start: 1997 Hepatitis B Vaccines (1 of 3 - 3-dose series) Hepatitis B Vaccines (1 of 3 - 3-dose series) [facility] Start: 1997 Hepatitis C screening Hepatitis C screen [facility] Work Phone: Start: 1997 HIV screening HIV Screening [facility] Start: 1997 Tetanus vaccination TETANUS EVERY 10 YR [facility] BACH SCREENING TEST BACH SCREENI NG TEST Procedures Routine Brain fog Memory change Post-acute sequelae of COVID-19 (PASC) Ordered: 07/09/2024 [facility] Comment on above: Ordered: 07/09/2024 Bacteria identified in Urine by Culture Urine culture Microbiology Routine Dysuria Ordered: 06/23/2023 [facility] Work Phone: Comment on above: Ordered: 06/23/2023 Bacteria identified in Urine by Culture URINE CULTURE Microbiology Routine Frequency of urination Ordered: 06/01/2024 [facility] Work Phone: Comment on above: Ordered: 06/01/2024 BACTERIAL VAGINOSIS NAAT BACTERI AL VAGINOSIS NAAT Lab Routine Acute vaginitis Ordered: 08/25/2023 [facility] Work Phone: Comment on above: Ordered: 08/25/2023 BLADDER SCAN BLADDER SCAN Pro cedures Routine Urinary frequency Ordered: 09/29/2023 [facility] Work Phone: Comment on above: Ordered: 09/29/2023 Breath hydrogen/meth ane test BREATH TEST - LACTULOSE Procedures Routine Food intolerance Bloating Ordered: 10/30/2024 [facility] Comment on above: Ordered: 10/30/2024 Calprotectin [Mass/m ass] in Stool CALPROTECTIN,FECAL Lab Routine Diarrhea, unspecified type Ordered: 01/03/2025 [facility] Comment on above: Ordered: 01/03/2025 LOULOU/TRICHOMONAS NAAT LOULOU /TRICHOMONAS NAAT Lab Routine Acute vaginitis Ordered: 08/25/2023 [facility] Work Phone: Comment on above: Ordered: 08/25/2023 CARDIAC REHAB II OUT PT ([place]) CARDIAC REHAB II OUTPT ([place]) BIC Routine Palpitations POTS (postural orthostatic tachycardia syndrome) Sinus tachycardia Ordered: 03/19/2025 [facility] Work Phone: Comment on above: Ordered: 03/19/2025 Cardiovascular funct ion eval w/tilt table w/mntr TILT TABLE EVALUATION Cardiology Routine Syncope, unspecified syncope type Dizziness Ordered: 03/29/2024 [facility] Comment on above: Ordered: 03/29/2024 Cardiovascular funct ion eval w/tilt table w/mntr TILT TABLE Syncope, unspecified syncope type Dizziness [facility] Clostridioides diffi cile toxin genes [Presence] in Stool by ZULEMA with probe detection CLOSTRIDIUM DIFFICILE TOXIN BY PCR Lab Routine Diarrhea, unspecified type Ordered: 01/03/2025 [facility] Comment on above: Ordered: 01/03/2025 End: 08-20-2025 ECG COMPLETE ECG COMPLETE ECG Routine POTS (postural orthostatic tachycardia syndrome) Syncope, unspecified syncope type 1 Occurrences starting 08/20/2024 until 08/20/2025 [facility] Work Phone: Comment on above: 1 Occurrences starting 08/20/2024 until 08/20/2025 End: 08-23-2025 ECG COMPLETE ECG COMPLETE ECG Routine POTS (postural orthostatic tachycardia syndrome) 1 Occurrences starting 08/23/2024 until 08/23/2025 [facility] Work Phone: Comment on above: 1 Occurrences starting 08/23/2024 until 08/23/2025 End: 08-30-2025 ECG COMPLETE ECG COMPLETE ECG Routine Palpitations POTS (postural orthostatic tachycardia syndrome) Sinus tachycardia 1 Occurrences starting 08/30/2024 until 08/30/2025 [facility] Comment on above: 1 Occurrences starting 08/30/2024 until 08/30/2025 ECG COMPLETE ECG COMPLETE ECG Routine Tachycardia 03/19/2025 10:03 AM EDT [facility] Work Phone: End: 08-30-2025 Echocardiography ECHO Cardiology Routine Palpitations POTS (postural orthostatic tachycardia syndrome) Sinus tachycardia 1 Occurrences starting 08/30/2024 until 08/30/2025 [facility] Work Phone: Comment on above: 1 Occurrences starting 08/30/2024 until 08/30/2025 End: 04-17-2025 EGD DIAGNOSTIC EGD DIAGNOSTIC Endoscopy Routine Gastroesophageal reflux disease with esophagitis without hemorrhage 1 Occurrences starting 04/17/2024 until 04/17/2025 [facility] Work Phone: Comment on above: 1 Occurrences starting 04/17/2024 until 04/17/2025 End: 12-06-2025 EMG(NEURO/NI) EMG(NEURO/NI) EMG Routine Paresthesias Arm pain, left 1 Occurrences starting 12/06/2024 until 12/06/2025 [facility] Work Phone: Comment on above: 1 Occurrences starting 12/06/2024 until 12/06/2025 ENTERIC BACTERIAL PA RICHARD BY PCR ENTERIC BACTERIAL PANEL BY PCR Lab Routine Diarrhea, unspecified type Ordered: 01/03/2025 [facility] Comment on above: Ordered: 01/03/2025 EXERCISE STRESS ECG (WITHOUT IMAGING) EXERCISE STRESS ECG (WITHOUT IMAGING) Cardiology Routine POTS (postural orthostatic tachycardia syndrome) Tachycardia Syncope, unspecified syncope type Brain fog Palpitations Sinus tachycardia DU (dyspnea on exertion) 03/26/2025 9:07 AM EDT [facility] Work Phone: End: 03-29-2025 EXTENDED WEAR LAWN SPECIALIST PATCH EXTENDED WEAR LAWN SPECIALIST PATCH ECG Routine Syncope, unspecified syncope type Dizziness 1 Occurrences starting 03/29/2024 until 03/29/2025 [facility] Work Phone: Comment on above: 1 Occurrences starting 03/29/2024 until 03/29/2025 End: 04-04-2024 EXTENDED WEAR LAWN SPECIALIST PATCH EXTENDED WEAR LAWN SPECIALIST PATCH ECG Routine Syncope, unspecified syncope type Dizziness 1 Occurrences starting 04/04/2024 until 04/04/2024 [facility] Work Phone: Comment on above: 1 Occurrences starting 04/04/2024 until 04/04/2024 Giardia lamblia+Cryptosporidium sp Ag [Presence] in Stool by Immunoassay CRYPTOSPORIDIUM AND GIARDIA ANTIGENS BY EIA Microbiology Routine Diarrhea, unspecified type Ordered: 01/03/2025 [facility] Comment on above: Ordered: 01/03/2025 End: 08-30-2025 HOLTER MONITOR 24 HOUR HOLTER MONITOR 24 HOUR ECG Routine Palpitations POTS (postural orthostatic tachycardia syndrome) Sinus tachycardia 1 Occurrences starting 08/30/2024 until 08/30/2025 [facility] Comment on above: 1 Occurrences starting 08/30/2024 until 08/30/2025 Hysteroscopy bx endometrium&/polypc w/wo d&c HYSTEROSCOPY SURGICAL W/SAMPLING BIOPSY OF ENDOMETRIUM &/OR POLYPECTOMY W/ OR W/O D&C (TRUCLEAR) Endometrial polyp PCOS (polycystic ovarian syndrome) Abnormal uterine bleeding (AUB) [facility] End: 05-02-2025 Manometry Study observation Narrative MANOMETRY ESOPHAGEAL Endoscopy Routine Dysphagia, unspecified type 1 Occurrences starting 05/02/2024 until 05/02/2025 [facility] Comment on above: 1 Occurrences starting 05/02/2024 until 05/02/2025 Manometry Study observation Narrative MANOMETRY ESOPHAGEAL Endoscopy Routine Dysphagia, unspecified type 06/11/2024 [facility] Work Phone: End: 10-10-2020 Miscellaneous Sendout 1 Miscellaneous Sendout 1 Lab Routine Once for 1 Occurrences starting 10/10/2020 until 10/10/2020 [facility] Work Phone: Comment on above: Once for 1 Occurrences starting 10/11/19 until 10/10/2020 Miscellaneous Sendout 1 Miscella neous Sendout 1 Lab Routine 10/10/2020 9:09 AM EDT [facility] Work Phone: End: 05-03-2025 MR Brain WO contrast MRI BRAIN WO IVCON Radiology Routine Other intractable trigeminal autonomic cephalgia (TAC) 1 Occurrences starting 04/03/2024 until 05/03/2025 [facility] Work Phone: Comment on above: 1 Occurrences starting 04/03/2024 until 05/03/2025 End: 03-11-2024 Mri brain brain stem w/o w/contrast material MRI BRAIN WO/W IVCON Radiology Routine Syncope and collapse 1 Occurrences starting 02/10/2023 until 03/11/2024 [facility] Work Phone: Comment on above: 1 Occurrences starting 02/10/2023 until 03/11/2024 Mycoplasma sp identi fied in Unspecified specimen by Organism specific culture MYCOPLASMA CULT Microbiology Routine Urinary frequency 10/07/2022 10:57 AM EDT [facility] Work Phone: Mycoplasma sp identi fied in Unspecified specimen by Organism specific culture MYCOPLASMA CULT Microbiology Routine Urinary frequency 08/11/2023 10:05 AM EST [facility] Work Phone: NEURO CARDIO AUTONOM IC REFLEX W/WO TILT NEURO CARDIO AUTONOMIC REFLEX W/WO TILT Procedures Routine POTS (postural orthostatic tachycardia syndrome) Ordered: 09/13/2024 [facility] Work Phone: Comment on above: Ordered: 09/13/2024 NEURO QSART NEURO QSART Proc edures Routine POTS (postural orthostatic tachycardia syndrome) Ordered: 09/13/2024 [facility] Comment on above: Ordered: 09/13/2024 End: 11-21-2023 NITRIC OXIDE, EXHALED NITRIC OXIDE, EXHALED PFT Routine Mild persistent asthma, unspecified whether complicated 1 Occurrences starting 10/22/2022 until 11/21/2023 [facility] Work Phone: Comment on above: 1 Occurrences starting 10/22/2022 until 11/21/2023 End: 04-22-2025 NITRIC OXIDE, EXHALED NITRIC OXIDE, EXHALED PFT Routine Moderate persistent asthma without complication 1 Occurrences starting 03/23/2024 until 04/22/2025 [facility] Comment on above: 1 Occurrences starting 03/23/2024 until 04/22/2025 End: 01-23-2026 NITRIC OXIDE, EXHALED NITRIC OXIDE, EXHALED PFT Routine Mild intermittent asthma without complication (HCC) 1 Occurrences starting 12/24/2024 until 01/23/2026 [facility] Work Phone: Comment on above: 1 Occurrences starting 12/24/2024 until 01/23/2026 OUTSIDE VENDOR CARDI AC OUTPATIENT EXTENDED RHYTHM RECORDING (WITHOUT TELEMETRY) OUTSIDE VENDOR CARDIAC OUTPATIENT EXTENDED RHYTHM RECORDING (WITHOUT TELEMETRY) Holter Routine Tachycardia Ordered: 10/12/2024 [facility] Work Phone: Comment on above: Ordered: 10/12/2024 PANC ELASTASE, FECAL PANC ELASTA SE, FECAL Lab Routine Diarrhea, unspecified type Ordered: 01/03/2025 [facility] Comment on above: Ordered: 01/03/2025 PAP TEST PAP TEST Lab Rou [facility]on Screening for cervical cancer 08/11/2023 9:21 AM EST [facility] Work Phone: PAP TEST PAP TEST Lab Rou devon Cervical cancer screening Ordered: 08/25/2023 [facility] Work Phone: Comment on above: Ordered: 08/25/2023 End: 01-05-2022 POCT urine POCT urine Point of Care Testing STAT One Time for 1 Occurrences starting 01/05/2022 until 01/05/2022 [facility] Work Phone: Comment on above: One Time for 1 Occurrences starting 12/10 until 01/05/2022 Radionuclide gastric emptying study [facility] End: 07-21-2025 RF Gastrointestinal tract upper Views W barium contrast PO XR UPPER GI SINGLE CONTRAST Radiology Routine Abdominal bloating 1 Occurrences starting 06/20/2024 until 07/21/2025 [facility] Work Phone: Comment on above: 1 Occurrences starting 06/20/2024 until 07/21/2025 End: 06-02-2025 RF videography Hypopharynx and Esophagus Views W liquid and paste contrast PO during swallowing XR MODIFIED BARIUM SWALLOW W SPEECH THERAPY Radiology Routine Dysphagia, unspecified type 1 Occurrences starting 05/02/2024 until 06/02/2025 [facility] Work Phone: Comment on above: 1 Occurrences starting 05/02/2024 until 06/02/2025 End: 03-13-2026 RF videography Hypopharynx and Esophagus Views W liquid and paste contrast PO during swallowing XR MODIFIED BARIUM SWALLOW W SPEECH THERAPY Radiology Routine Esophageal spasm Gastroesophageal reflux disease with esophagitis without hemorrhage 1 Occurrences starting 02/11/2025 until 03/13/2026 [facility] Work Phone: Comment on above: 1 Occurrences starting 02/11/2025 until 03/13/2026 End: 11-21-2023 SPIROMETRY - BASELINE AND POST DILATOR SPIROMETRY - BASELINE AND POST DILATOR PFT Routine Mild persistent asthma, unspecified whether complicated 1 Occurrences starting 10/22/2022 until 11/21/2023 [facility] Work Phone: Comment on above: 1 Occurrences starting 10/22/2022 until 11/21/2023 SPIROMETRY - BASELIN E AND POST DILATOR SPIROMETRY - BASELINE AND POST DILATOR PFT Routine Mild persistent asthma, unspecified whether complicated 11/18/2022 8:20 AM EDT [facility] Work Phone: End: 04-22-2025 SPIROMETRY WITH DILATOR IF OBSTRUCTED SPIROMETRY WITH DILATOR IF OBSTRUCTED PFT Routine Moderate persistent asthma without complication 1 Occurrences starting 03/23/2024 until 04/22/2025 [facility] Work Phone: Comment on above: 1 Occurrences starting 03/23/2024 until 04/22/2025 SPIROMETRY WITH DILA TOR IF OBSTRUCTED SPIROMETRY WITH DILATOR IF OBSTRUCTED PFT Routine Moderate persistent asthma without complication 06/22/2024 9:23 AM EST [facility] Work Phone: SURGICAL PATHOLOGY [facility] Work Phone: Comment on above: Release Upon Ordering for 1 Occurrences starting 04/27/2024, 1 completed End: 10-08-2020 Tissue Transglutaminase, IgA Tissue Transglutaminase, IgA Lab Routine Abdominal pain, unspecified abdominal location Change in bowel habits 1 Occurrences starting 10/08/2020 until 10/08/2020 [facility] Work Phone: Comment on above: 1 Occurrences starting 10/08/2020 until 10/08/2020 Tissue Transglutamin ase, IgA Tissue Transglutaminase, IgA Lab Routine Abdominal pain, unspecified abdominal location Change in bowel habits 10/08/2020 4:38 PM EDT [facility] Work Phone: End: 09-28-2025 TRYPTASE BLOOD TRYPTASE BLOOD Lab Routine Chronic idiopathic urticaria Once per month for 12 Occurrences starting 09/28/2024 until 09/28/2025 [facility] Work Phone: Comment on above: Once per month for 12 Occurrences starti ng 09/28/2024 until 09/28/2025 End: 01-05-2026 US Breast - left US BREAST COMPLETE LEFT Radiology Routine Breast mass in female 1 Occurrences starting 12/06/2024 until 01/05/2026 [facility] Work Phone: Comment on above: 1 Occurrences starting 12/06/2024 until 01/05/2026 End: 07-21-2022 Us transvaginal [facility] Work Phone: Comment on above: 1 Occurrences starting 07/21/2022 until 07/21/2022 End: 09-09-2024 Us transvaginal US FEMALE PELVIS TRANSVAG Radiology Routine Secondary amenorrhea 1 Occurrences starting 08/11/2023 until 09/09/2024 [facility] Work Phone: Comment on above: 1 Occurrences starting 08/11/2023 until 09/09/2024 Vstblr funcj nystag fovl&perph stimj oscil trk VSTBLR FUNCJ NYSTAG FOVL&PERPH STIMJ OSCIL TRKG Procedures Routine Dysequilibrium Ordered: 09/05/2024 [facility] Work Phone: Comment on above: Ordered: 09/05/2024 End: 02-02-2026 XR Abdomen Supine and Upright XR ABDOMEN 2V ROUTINE SUPINE W UPRIGHT/DECUB/CTL Radiology Routine Diarrhea, unspecified type 1 Occurrences starting 01/03/2025 until 02/02/2026 [facility] Work Phone: Comment on above: 1 Occurrences starting 01/03/2025 until 02/02/2026 XR Abdomen Supine an d Upright XR ABDOMEN 2V ROUTINE SUPINE W UPRIGHT/DECUB/CTL Radiology Routine Diarrhea, unspecified type 01/03/2025 12:26 PM EDT [facility] End: 08-12-2025 XR Cervical spine AP and Lateral XR CERV GENERAL 2V AP/LAT Radiology Routine Pain in joint, multiple sites 1 Occurrences starting 07/13/2024 until 08/12/2025 [facility] Comment on above: 1 Occurrences starting 07/13/2024 until 08/12/2025 End: 07-13-2024 XR Cervical spine AP and Lateral [facility] Comment on above: 1 Occurrences starting 07/13/2024 until 07/13/2024 End: 03-13-2026 XR Esophagus Views W contrast PO XR ESOPHAGRAM Radiology Routine Esophageal dysphagia 1 Occurrences starting 02/11/2025 until 03/13/2026 [facility] Comment on above: 1 Occurrences starting 02/11/2025 until 03/13/2026 End: 07-21-2025 XR GI SMALL BOWEL FOLLOW-THRU XR GI SMALL BOWEL FOLLOW-THRU Radiology Routine Abdominal bloating 1 Occurrences starting 06/20/2024 until 07/21/2025 [facility] Comment on above: 1 Occurrences starting 06/20/2024 until 07/21/2025 End: 08-12-2025 XR Hand - left PA and Lateral and Oblique XR HAND GENERAL 3V PA/LAT/OBL LEFT Radiology Routine Pain in joint, multiple sites 1 Occurrences starting 07/13/2024 until 08/12/2025 [facility] Comment on above: 1 Occurrences starting 07/13/2024 until 08/12/2025 End: 07-13-2024 XR Hand - left PA and Lateral and Oblique [facility] Comment on above: 1 Occurrences starting 07/13/2024 until 07/13/2024 End: 08-12-2025 XR Hand - right PA and Lateral and Oblique XR HAND GENERAL 3V PA/LAT/OBL RIGHT Radiology Routine Pain in joint, multiple sites 1 Occurrences starting 07/13/2024 until 08/12/2025 [facility] Comment on above: 1 Occurrences starting 07/13/2024 until 08/12/2025 End: 07-13-2024 XR Hand - right PA and Lateral and Oblique [facility] Comment on above: 1 Occurrences starting 07/13/2024 until 07/13/2024 End: 08-12-2025 XR Lumbar spine 3 Views XR LUMBAR GENERAL 3V AP/LAT/L5-S1 Radiology Routine Pain in joint, multiple sites 1 Occurrences starting 07/13/2024 until 08/12/2025 [facility] Comment on above: 1 Occurrences starting 07/13/2024 until 08/12/2025 End: 07-13-2024 XR Lumbar spine 3 Views [facility] Comment on above: 1 Occurrences starting 07/13/2024 until 07/13/2024 End: 08-12-2025 XR Sacroiliac Joint Views XR SACROILIAC JOINTS 2V AP PELVIS/FERGUESON Radiology Routine Pain in joint, multiple sites 1 Occurrences starting 07/13/2024 until 08/12/2025 [facility] Comment on above: 1 Occurrences starting 07/13/2024 until 08/12/2025 End: 07-13-2024 XR Sacroiliac Joint Views [facility] Comment on above: 1 Occurrences starting 07/13/2024 until 07/13/2024 [facility] Immunizations Immunization Date Immunization Notes Care Provider Jon guzman 12-02-2015 hepatitis A vaccine, pediatric/adolescent dosage, 2 dose schedule Boubacar Mastrucci 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.HORSE SHOER Work Phone: [facility] 12-02-2015 measles, mumps and rubella virus vaccine Boubacar Mastrucci 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.HORSE SHOER Work Phone: [facility] 12-02-2015 poliovirus vaccine, inactivated Boubacar Mastrucci 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.HORSE SHOER Work Phone: [facility] 12-02-2015 TD(adult) unspecifie d formulation Boubacar Mastrucci 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.HORSE SHOER Work Phone: [facility] 12-02-2015 typhoid capsular polysaccharide vaccine Boubacar Mastrucci 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.HORSE SHOER Work Phone: [facility] 12-02-2015 hepatitis A and hepa titis B vaccine Brielle Peace MD Work Phone: [facility] 12-02-2015 poliovirus vaccine, unspecified formulation Kimi Lucas 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 - [employer] Work Phone: [facility] 11-04-2015 influenza, seasonal, injectable Boubacar Mastrucci 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.HORSE SHOER Work Phone: [facility] 11-04-2015 measles, mumps and rubella virus vaccine Boubacar Mastrucci 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.HORSE SHOER Work Phone: [facility] 11-04-2015 poliovirus vaccine, inactivated Boubacar Mastrucci 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.HORSE SHOER Work Phone: [facility] 11-04-2015 tetanus toxoid, redu suha diphtheria toxoid, and acellular pertussis vaccine, adsorbed Boubacar Mastrucci 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.HORSE SHOER Work Phone: [facility] 11-04-2015 influenza virus vacc ine, unspecified formulation Kimi Lucas 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 - [employer] Work Phone: [facility] 11-04-2015 varicella virus vaccine Valentin Lucas APRN - [employer] Work Phone: [facility] Payers Date Payer Category Payer Self-pay 2024 Private Health Insurance [id number] 2024 Private Health Insurance [id number] 2023 Blue [employer] Blue Shield BLUE ACCE SS PPO [id number] 2023 Unknown [id number] 2022 Unknown [id number] 2017 Unknown [id number] 2017 Unknown MMO MMO [employer] [id number] 2017-Present [phone] [address] [place] [address] O [id number] 2017 Unknown 2017 Unknown [id number] 1997 Unknown [id number] 1997 Unknown [id number] 1997 Unknown [id number] 1997 Unknown [id number] 1997 Unknown [id number] Unknown [id number] Unknown [id number] Unknown [id number] Social History Date Type Detail Facility Start: 09-14-2017 End: 09-11-2020 Tobacco smoking status OKIS Unknown if ever smoked [facility] Work Phone: Start: 1995 Sex Assigned At Not on file [facility] Start: 07-14-2018 End: 07-14-2022 Tobacco smoking status OKIS Never smoker [facility] Start: 10-02-2021 End: 01-05-2022 Exposure to SARS-CoV-2 (event) Not sure [facility] Phone: Start: 10-08-2020 End: 07-14-2022 Tobacco use and exposure Never used [facility] Phone: Start: 10-08-2020 End: 04-25-2024 Alcohol intake Ex-drinker (finding) [facility] Phone: Start: 09-12-2021 End: 09-22-2021 Exposure to SARS-CoV-2 (event) Unable to assess [facility] Start: 02-10-2023 End: 02-16-2024 Sex Assigned At [facility] Work Phone: Start: 02-10-2023 End: 02-16-2024 History of Social function [facility] Work Phone: Start: 09-21-2019 Adult Depression Screening Assessment 1 [facility] Work Phone: Start: 08-25-2023 End: 03-26-2025 Alcohol intake Lifetime non-drinker (finding) [facility] Has the [employer], [employer], [employer], or water company threatened to shut off services in your home in past 12Mo No [employer] (I/We) worried wheth er (my/our) food would run out before (I/we) got money to buy more. Never true [facility] Start: 1995 Sex Assigned At Female [facility] How often to you hav e a drink containing alcohol? Never [facility] Goals Date Patient Goal Desired Activity /State Personal health goal Functional Status Date Assessment Result Facility 10-07-2024 Are you deaf, or do you have serious difficulty hearing No 10/07/2024 11:37 AM Salvatore Panchal RN No [facility] 10-07-2024 Are you blind, or do you have serious difficulty seeing, even when wearing glasses No 10/07/2024 11:37 AM Salvatore Panchal RN No [facility] 10-07-2024 Do you have serious difficulty walking or climbing stairs No 10/07/2024 11:37 AM Salvatore Panchal RN No [facility] 10-07-2024 Do you have difficul ty dressing or bathing No 10/07/2024 11:37 AM Salvatore Panchal RN No [facility] 10-07-2024 Because of a physica l, mental, or emotional condition, do you have difficulty doing errands alone such as visiting a physician's office or shopping No 10/07/2024 11:37 AM Salvatore Panchal RN No [facility] 10-18-2022 Are you deaf, or do you have serious difficulty hearing No 10/18/2022 1:48 PM Liza Soto, JEFFREY No [facility] 10-18-2022 Are you blind, or do you have serious difficulty seeing, even when wearing glasses No 10/18/2022 1:48 PM EDLiza Copeland, JEFFREY No [facility] 10-18-2022 Do you have serious difficulty walking or climbing stairs No 10/18/2022 1:48 PM Liza Soto, JEFFREY No [facility] 10-18-2022 Do you have difficul ty dressing or bathing No 10/18/2022 1:48 PM Liza Soto, JEFFREY No [facility] 10-18-2022 Because of a physica l, mental, or emotional condition, do you have difficulty doing errands alone such as visiting a physician's office or shopping No 10/18/2022 1:48 PM EDT Liza Dodge, RN No [facility] Mental Status Date Assessment Result Facility 10-07-2024 Because of a physica l, mental, or emotional condition, do you have serious difficulty concentrating, remembering, or making decisions No 10/07/2024 11:37 AM EDT Salvatore Yañez, JEFFREY No [facility] 10-18-2022 Because of a physica l, mental, or emotional condition, do you have serious difficulty concentrating, remembering, or making decisions No 10/18/2022 1:48 PM EDT Liza Dodge, JEFFREY No [facility] Clinical Notes 10-11-2021 to 05-01-2025 Patient InstructionsAlba Roman APRN.HORSE SHOER - 03/26/2025 8:48 AM Kimi Jorgensen CCC-CRYOLITE RECOVERY OPERATOR - 03/20/2025 10:11 AM Yuan Cordova MD - 03/19/2025 10:22 AM EDTPatient Instructions Note Date & Type Note Facility 05-01-2025 Note [facility] 04-24-2025 Note [facility] 04-02-2025 Note [facility] 03-28-2025 Note HNO ID: [id number] Author: MAMIE STALLINGS, [facility]-[employer]YOL[employer] RECOVERY OPERATOR Service: ? Author Type: Speech Language Pathologist Type: Progress Notes Filed: 03/28/2025 13:53 Note Text: Start of Care Date: 03/28/25 Onset Date: 07/11/24 Patient Identified by Name and Date of : Yes REHABILITATION AND SPORTS THERAPY MODIFIED BARIUM SWALLOW PLAN OF CARE: Impression: Evidence of: Concern for Esophageal Dysphagia -retrograde flow below the pharyngoesophageal segment -delayed emptying of the esophagus while in the upright posture -pt benefits from extended time, liquid wash and additional swallows to support esophageal clearance -referring provider may wish to consider ordering an Esophagram to obtain a current and more thorough assessment of the esophageal phase of the swallow RECOMMENDATIONS: Diet Recommendations Regular Consistency, Thin Liquids IDDSI Level 0 Swallow Strategy Recommendations Anti-Reflux precautions, Sit upright 90 degrees for all PO, Maintain an upright position 20-30 minutes following all oral intake, Feed / Eat at a slow rate, Alternate bites and sips Results and Recommendations Discussed With: Patient (boyfriend) SUBJECTIVE: Amie Bratxon is a 29 year old female seen today for a Modified Barium Swallow (MBS) Study. dysphagia -pt admits to the sensation of food items 'not going down' -she reports that the tongue has difficulty 'not doing what it is suppose to in order for the food to go down' -she denies a consistent pattern of the dysphagia -denies the following: heartburn, pain with PO intake, changes in vocal quality before, during and/or after PO intake, emesis, unexpected weight loss, Shortness of Breath, pulmonary complications -admits to intermittent nausea -admits to intermittent experience of retrograde flow of food items getting stuck -admits to the use of liquid wash, extended time, positioning changes and/or additional swallows to alleviate the sensation of food items getting stuck -boyfriend (Corey) accompanies the patient to today's fluoroscopic assessment Past Relevant Medical Conditions: Asthma, Anxiety, GERD Patient Goals: determine current swallowing skills; 'make sure that everything is ok' Prior Functional Level: Within Functional Limits OBJECTIVE: MEASURES WITH LEVEL OF FUNCTION: Swallow Position Of Patient During Assessment: Standing Feeding Method: Patient Self-Fed Consistencies Presented: Thin Liquids IDDSI Level 0, Pureed Solids IDDSI Level 4, Soft and Bite-Sized Solids IDDSI Level 6, Solid - pt is able to self-navigate and self-regulate rate and volume; - able to follow verbal directives for the completion of today's fluoroscopic study without difficulties Compensatory Strategies Utilized During Assessment: Feed / Eat at a slow rate, Extended time between presentations, Double swallows, Alternate bites and sips, Self-monitoring Instrumental Swallow Assessment Type: Modified Barium Swallow Study Modified Barium Swallow Views: Lateral position Barium Consistencies Provided: Thin Liquids IDDSI Level 0, Pureed Solids IDDSI Level 4, Soft and Bite-Sized Solids IDDSI Level 6, Solid Oral Phase: Lip Closure: No labial escape/anterior loss of bolus Tongue Control During Bolus Hold: Cohesive bolus between tongue to palatal seal Bolus Preparation/Mastication: Timely and efficient mastication skills Bolus Transport/Lingual Motion: Brisk tongue motion for A-P movement of the bolus Oral Residue: Residue collection on oral structure Initiation Of Pharyngeal Swallow: Bolus head at vallecular pit Pharyngeal Phase: Soft Palate Elevation: No bolus between soft palate/pharyngeal wall Laryngeal Elevation: Complete superior movement of thyroid cartilage with contact of arytenoids to epiglottic petiole Anterior Hyoid Excursion: Complete anterior movement Epiglottic Movement: Complete inversion Laryngeal Vestibular Closure/Height of the Swallow: Complete - no air/contrast in laryngeal vestibule Pharyngeal Stripping Wave: Complete Pharyngoesophageal Segment Opening: Complete distension and complete duration/no obstruction of flow of bolus Tongue Base Retraction: Trace column of contrast or air between tongue base and pharyngeal wall Pharyngeal Residue: Trace residue within or on the pharyngeal structures, Residue within the valleculae following the swallow Esophageal Clearance In An Upright Position: Esophageal retention with retrograde flow below the pharyngoesophageal segment Penetration-Aspiration Scale Level 1-Material does not enter airway Education: Education Learning Preferences: Explanation, Demonstration Barriers: None Learning/Educational Needs: MBSs results Education Provided: Yes, see treatment interventions for education provided Education Provided To: Patient, Caregiver (boyfriend Corey) Education Mode/Type: Explanation/Discussion, Video, Teach Back Response to Education/Teach Back: St (more content not included)... [facility] 03-28-2025 Note HNO ID: [id number] Author: CASSI KEENE RT(R) Service: Radiology Author Type: Technologist Type: Progress Notes Filed: 03/28/2025 14:00 Note Text: Radiology Service Progress Note PATIENT NAME: Amie Braxton DATE OF SERVICE: March 28, 2025 TIME: 1:59 PM PATIENT IDENTITY VERIFICATION COMPLETED USING TWO (2) IDENTIFIERS: Name and Date of confirmed by patient verbally. FALL SCREENING: Has the patient had 2 falls in the last year or 1 fall with injury or currently using an Ambulatory Assistive Device (Walker, Cane, Wheelchair, Crutches, etc.)? No PATIENT GENDER DATA: Assigned female at . status: : No status: NO. PATIENT RELEVANT IMPLANT DATA REVIEWED: Not Applicable PATIENT PRESENTS WITH AN IMPLANTABLE OR ATTACHED POLICE SERGEANT PRECINCT: No RADIOLOGY DEPARTMENT: General X-ray: Exam(s) Completed: GI/ Procedure(s): Modified barium swallow with barium contrast PERIPHERAL IV DATA: Not applicable SIGNED BY: RT John(R) March 28, 2025 1:59 PM [facility] [place] 03-26-2025 Instructions Aaron Crow, Technical Training Manager - 03/26/2025 11:14 AM EDT Images from the original note were not included. AEROBIC-BASED EXERCISE TRAINING PLAN FOR SYMPTOM MANAGEMENT: Initiate the self-supervised aerobic-based exercise prescription for Postural Orthostatic Tachycardia Syndrome (POTS) symptom management as outlined below: *Participation in structured aerobic-based exercise as recommended below constitutes a SINGLE aspect of your POTS symptom management plan and should not be viewed as the only factor responsible for managing the severity of your symptoms. *Structured, consistent, and specific aerobic-based exercise is therapeutic and can provide you with a dose-benefit response. This means the more consistent you can be with performing intentional aerobic-based exercise at a safe and appropriate intensity, the more likely you are to see the benefits of aerobic-based exercise training for managing your symptoms. *Do not participate in maximal intensity exercise and/or other forms of severe/heavy intensity physical exertion for your symptom management plan. *Participation in high intensity interval training (HIIT) is not recommended when aiming to exercise train for managing symptom severity. *Participating in maximal/high/severe/heavy intensity physical exertion regardless of whether it occurs in a gym or elsewhere will commonly result in feeling the need to rest/recover for up to 3-4 days before feeling energy and physical endurance levels return to a higher baseline. *Consistently drink water throughout the day in small sips/quantities. Not drinking enough water throughout the day will increase the likelihood your heart rate will rise to levels higher than typical while at rest as well as when changing body positions from sitting to standing. *Do not gulp or chug water. Aerobic Exercise Training: -Choose a time of day (whatever your preference) where you will be able to consistently exercise on a regular basis. Controlling this factor (along with the others) will help you better understand how your body responds to exercise and other types of physical exertion. Subjective exercise intensity scale Rating of perceived exertion (RPE) scale (6-20): *When guiding exercise training intensities, inclusively consider *HR zones (primary guide)*, workload zones, symptoms, and RPE zones. *If you need to make adjustments to the recommended exercise machine settings (noted below) in order to achieve your target HR zone this is perfectly ok. *Commercial devices that can be used to monitor HR while exercising include for example: *POLAR chest strap (model: H10 with any POLAR wrist device, such as the POLAR UNITE); *Smart Watch ([employer], [employer], Space Pencil, Crunched, Ciapple, etc) *Commercial heart rate monitors used during exercise training are not medical devices and the information acquired from these devices should not be used to make medical diagnostic decisions. *Do NOT monitor your HR while performing activities of daily living, recreational sports, hiking, or other types of quick physical movements throughout your day. *If any exercise occurs outdoors, it will be more difficult to maintain consistent control of your HR response to exercise due to numerous environmental and terrain factors. *You can also expect to expend more energy when performing your exercise outdoors due the influences of numerous environmental and terrain factors. Therefore, take a more conservative approach when performing your exercise training outdoors. *Always consider the timing of when you take your beta-lela therapy (LOPRESSOR) relative to when you exercise, particularly as it relates to basing exercise intensity on HR training zones. *This medication can impact how high your HR rises during exercise. As best as possible, keep the time difference between when you take your b-lela and when you exercise as consistent as possible. *The b-lela medication will have the strongest effect on keeping your heart rate from rising too high within an approximate 1 to 4 hour window after taking. *For example, if you exercise 8 to 10 hours after taking your b-lela you could expect to see your heart rate rise to higher levels compared with if you exercised within the 1 to 4 hour window after taking the medication. Keep this in mind so you have a better understanding of why your heart rate during exercise might differ day-to-day. *Slowly drink 8-12 ounces of water or sports drink within the 30 minutes before exercise (for example, low calorie sugar-free options are Powerade zero, G2, propel fitness water, Vitamin Water, Nuun electrolyte tablets, Liquid IV, etc.). *If you begin exercise without having taken in enough fluid throughout the day, it will be easier for your body temperature to rise quickly and lead to the feeling of being overheated. *Continue to drink fluid throughout exercise and the recovery period as needed. *DO NOT drink caffeine within 3 hours prior to exercise. *Warm-up exercise period immediately prior to performing sessions*: DO NOT SKIP THE WARM UP EVER. The warm up should be performed on the exact piece of equipment you plan on performing your exercise training that day. Do not perform multiple warm up periods on different pieces of equipment. *Skipping the warm up will increase the likelihood you will experience an increase in symptoms during exercise. -Duration: at least 6-8 min (take longer time to warm-up as needed). -Modality options: -Stationary Upright Bicycle - Wheel resistance: none or the lowest available setting *Pedal rate: approximately 30-35 revolutions per minute (rpm) or lower. If your cycle does not provide a display of pedal rate consider using a Metronome to help guide the pace and frequency of your pedal rate. If you use a smart phone there are free Metronome apps for download. -Take as much time as you need after to allow your body to get settled after changing body positions from standing to sitting. -Intensity: heart rate (HR) = 75-80 bpm and Rating of perceived exertion (RPE)= 6-8 (use the above 6-20 scale). *If your exercise session occurs more than 4 hours after taking your LOPRESSOR medication you may consider increasing the noted HR zone by approximately 5 bpm, as tolerated. -(eventually in your exercise progression) Treadmill: approximately 1.5 to 1.8 mph at 0.0 % grade (modest/low level pace; adjust speed setting, as needed). -Intensity: heart rate (HR) = 80-85 bpm and Rating of perceived exertion (RPE)= 6-8 (use the above 6-20 scale). *If your exercise session occurs more than 4 hours after taking your LOPRESSOR medication you may consider increasing the noted HR zone by approximately 5 bpm, as tolerated. *Aerobic Exercise Sessions by Week and Modality*: TRAINING BLOCK #1: Week 1-8 or longer (this is the minimum number of weeks. If necessary, make this training block as long as you need): Mode: Stationary Upright Bicycle (NO high intensity interval training): -Perform the active warm-up period before participating in exercise at the heart rate (HR) range described below. -Heart Rate (HR) = as tolerated, up to 80-85 bpm (PRIMARY GUIDE; *always take into consideration the timing of when you last took your beta-lela medication (LOPRESSOR) and make only minor adjustments to your target HR zone as needed ). *If your exercise session occurs more than 4 hours after taking your LOPRESSOR medication you may consider increasing the noted HR zone by approximately 5 bpm, as tolerated. -Pedal rate = approximately 50-55 revolutions per minute (rpm). If your cycle does not provide a display of pedal rate consider using a Metronome to help guide the pace and frequency of your pedal rate. If you use a smart phone there are free Metronome apps for download. -Miller = approximately 10-15 . (Make minor and gradual adjustments to wheel resistance settings in order to achieve target HR zone, as needed. The Miller zone is less important than the recommended HR zone. Prioritize achieving the target HR zone.) -Rating of perceived exertion (RPE) = 10-12 (refer to above 6-20 scale) Frequency per week: -At least 3 days (non-consecutive days is preferred; or up to 5 non-consecutive days, as tolerated) -Choose a time of day (whatever your preference) where you will be able to consistently exercise on a regular basis. Controlling this factor (along with the others) will help you better understand how your body responds to exercise and other types of physical exertion. Weeks 1-4: Total minutes per day (not including warm-up and cool-down time): -as tolerated, up to 15 min (do not exceed time even if you feel the urge to do so) *As tolerated, your exercise can be performed as consecutive minutes. If needed, it is ok if you stop exercise early and begin the active cool-down period. Weeks 5-8: Total minutes per day (not including warm-up and cool-down time): -as tolerated, up to 20 min (do not exceed time even if you feel the urge to do so) *As tolerated, your exercise can be performed as consecutive minutes. If needed, it is ok if you stop exercise early and begin the active cool-down period. -Only progress to the next training block of your program if you are able to consistently perform your exercise without experiencing any worsening of your symptoms. -If for any reason you have to miss multiple training days in succession (for example, more than 4) in a given week(s), upon resuming your exercise training it would be reasonable to briefly dial back the HR zone intensity and session duration in order to more appropriately re-introduce physical stress to your body. *For example, for 1 week, decrease the HR zone you had been previously working at prior to the time away by at least 5 bpm from both the lower and upper end of the zone. Also decrease the duration of your training sessions by at least 5 min or more. TRAINING BLOCK #2: Week 9-16 or longer (this is the minimum number of weeks. If necessary, make this training block as long as you need): Mode: Stationary Upright Bicycle (NO high intensity interval training): -Perform the active warm-up period before participating in exercise at the heart rate (HR) range described below. -Heart Rate (HR) = as tolerated, up to 85-90 bpm (PRIMARY GUIDE; *always take into consideration the timing of when you last took your beta-lela medication (LOPRESSOR) and make only minor adjustments to your target HR zone as needed ). *If your exercise session occurs more than 4 hours after taking your LOPRESSOR medication you may consider increasing the noted HR zone by approximately 5 bpm, as tolerated. -Pedal rate = approximately 50-55 revolutions per minute (rpm). If your cycle does not provide a display of pedal rate consider using a Metronome to help guide the pace and frequency of your pedal rate. If you use a smart phone there are free Metronome apps for download. -Miller = approximately 10-20 . (Make minor and gradual adjustments to wheel resistance settings in order to achieve target HR zone, as needed. The Miller zone is less important than the recommended HR zone. Prioritize achieving the target HR zone.) -Rating of perceived exertion (RPE) = 11-12 (refer to above 6-20 scale) Frequency per week: -At least 3 days (non-consecutive days is preferred; or up to 5 non-consecutive days, as tolerated) -Choose a time of day (whatever your preference) where you will be able to consistently exercise on a regular basis. Controlling this factor (along with the others) will help you better understand how your body responds to exercise and other types of physical exertion. Weeks 9-12: Total minutes per day (not including warm-up and cool-down time): -as tolerated, up to 20 min (do not exceed time even if you feel the urge to do so) *As tolerated, your exercise can be performed as consecutive minutes. If needed, it is ok if you stop exercise early and begin the active cool-down period. Weeks 13-16: Total minutes per day (not including warm-up and cool-down time): -as tolerated, up to 25 min (do not exceed time even if you feel the urge to do so) *As tolerated, your exercise can be performed as consecutive minutes. If needed, it is ok if you stop exercise early and begin the active cool-down period. -Only progress to the next training block of your program if you are able to consistently perform your exercise without experiencing any worsening of your symptoms. -If for any reason you have to miss multiple training days in succession (for example, more than 4) in a given week(s), upon resuming your exercise training it would be reasonable to briefly dial back the HR zone intensity and session duration in order to more appropriately re-introduce physical stress to your body. *For example, for 1 week, decrease the HR zone you had been previously working at prior to the time away by at least 5 bpm from both the lower and upper end of the zone. Also decrease the duration of your training sessions by at least 5 min or more. TRAINING BLOCK #3: Week 17-24 or longer (this is the minimum number of weeks. If necessary, make this training block as long as you need): Mode: Stationary Upright Bicycle (NO high intensity interval training): -Perform the active warm-up period before participating in exercise at the heart rate (HR) range described below. -Heart Rate (HR) = as tolerated, up to 90-95 bpm (PRIMARY GUIDE; *always take into consideration the timing of when you last took your beta-lela medication (LOPRESSOR) and make only minor adjustments to your target HR zone as needed ). *If your exercise session occurs more than 4 hours after taking your LOPRESSOR medication you may consider increasing the noted HR zone by approximately 5 bpm, as tolerated. -Pedal rate = approximately 50-55 revolutions per minute (rpm). If your cycle does not provide a display of pedal rate consider using a Metronome to help guide the pace and frequency of your pedal rate. If you use a smart phone there are free Metronome apps for download. -Miller = approximately 15-25. (Make minor and gradual adjustments to wheel resistance settings in order to achieve target HR zone, as needed. The Miller zone is less important than the recommended HR zone. Prioritize achieving the target HR zone.) -Rating of perceived exertion (RPE) = 12-13 (refer to above 6-20 scale) Frequency per week: -At least 3 days (non-consecutive days is preferred; or up to 5 non-consecutive days, as tolerated) -Choose a time of day (whatever your preference) where you will be able to consistently exercise on a regular basis. Controlling this factor (along with the others) will help you better understand how your body responds to exercise and other types of physical exertion. Weeks 17-20: Total minutes per day (not including warm-up and cool-down time): -as tolerated, up to 25 min (do not exceed time even if you feel the urge to do so) *As tolerated, your exercise can be performed as consecutive minutes. If needed, it is ok if you stop exercise early and begin the active cool-down period. Weeks 21-24: Total minutes per day (not including warm-up and cool-down time): -as tolerated, up to 30 min (do not exceed time even if you feel the urge to do so) *As tolerated, your exercise can be performed as consecutive minutes. If needed, it is ok if you stop exercise early and begin the active cool-down period. -Only progress to the next training block of your program if you are able to consistently perform your exercise without experiencing any worsening of your symptoms. -If for any reason you have to miss multiple training days in succession (for example, more than 4) in a given week(s), upon resuming your exercise training it would be reasonable to briefly dial back the HR zone intensity and session duration in order to more appropriately re-introduce physical stress to your body. *For example, for 1 week, decrease the HR zone you had been previously working at prior to the time away by at least 5 bpm from both the lower and upper end of the zone. Also decrease the duration of your training sessions by at least 5 min or more. TRAINING BLOCK #4: Week 25-32 or longer (this is the minimum number of weeks. If necessary, make this training block as long as you need): Mode: Stationary Upright Bicycle (NO high intensity interval training): -Perform the active warm-up period before participating in exercise at the heart rate (HR) range described below. -Heart Rate (HR) = as tolerated, up to 95-100 bpm (PRIMARY GUIDE; *always take into consideration the timing of when you last took your beta-lela medication (LOPRESSOR) and make only minor adjustments to your target HR zone as needed ). *If your exercise session occurs more than 4 hours after taking your LOPRESSOR medication you may consider increasing the noted HR zone by approximately 5 bpm, as tolerated. -Pedal rate = approximately 50-55 revolutions per minute (rpm). If your cycle does not provide a display of pedal rate consider using a Metronome to help guide the pace and frequency of your pedal rate. If you use a smart phone there are free Metronome apps for download. -Miller = approximately 20-30. (Make minor and gradual adjustments to wheel resistance settings in order to achieve target HR zone, as needed. The Miller zone is less important than the recommended HR zone. Prioritize achieving the target HR zone.) -Rating of perceived exertion (RPE) = 12-13 (refer to above 6-20 scale) *Or, as tolerated, after week #28 you may want to try integrating the Treadmill as an option for your exercise training, Mode: Treadmill (*no jogging/running; NO high intensity interval training): -Perform the active warm-up period before participating in exercise at the heart rate (HR) range described below. -Heart Rate (HR) = as tolerated, up to 100-105 bpm (PRIMARY GUIDE; *always take into consideration the timing of when you last took your beta-lela medication (LOPRESSOR) and make only minor adjustments to your target HR zone as needed ). *If your exercise session occurs more than 4 hours after taking your LOPRESSOR medication you may consider increasing the noted HR zone by approximately 5 bpm, as tolerated. -Speed = approximately 2.4 to 2.7 mph, Grade = 0.0 to 1.0 %; (Make minor and gradual adjustments to speed and grade settings in order to achieve target HR zone, as needed. The Speed and Grade zones are less important than the recommended HR zone. Prioritize achieving the target HR zone.) -Rating of perceived exertion (RPE) = 12-13 (refer to above 6-20 scale) Frequency per week: -At least 3 days (non-consecutive days is preferred; or up to 5 non-consecutive days, as tolerated) -Choose a time of day (whatever your preference) where you will be able to consistently exercise on a regular basis. Controlling this factor (along with the others) will help you better understand how your body responds to exercise and other types of physical exertion. Weeks 25-28: Total minutes per day (not including warm-up and cool-down time): -as tolerated, up to 30 min (do not exceed time even if you feel the urge to do so) *As tolerated, your exercise can be performed as consecutive minutes. If needed, it is ok if you stop exercise early and begin the active cool-down period. Weeks 29-32: Total minutes per day (not including warm-up and cool-down time): -as tolerated, up to 35 min (do not exceed time even if you feel the urge to do so) *As tolerated, your exercise can be performed as consecutive minutes. If needed, it is ok if you stop exercise early and begin the active cool-down period. -Only progress to the next training block of your program if you are able to consistently perform your exercise without experiencing any worsening of your symptoms. -If for any reason you have to miss multiple training days in succession (for example, more than 4) in a given week(s), upon resuming your exercise training it would be reasonable to briefly dial back the HR zone intensity and session duration in order to more appropriately re-introduce physical stress to your body. *For example, for 1 week, decrease the HR zone you had been previously working at prior to the time away by at least 5 bpm from both the lower and upper end of the zone. Also decrease the duration of your training sessions by at least 5 min or more. TRAINING BLOCK #5: Week 33-40 or longer (this is the minimum number of weeks. If necessary, make this training block as long as you need): Mode: Stationary Upright Bicycle (NO high intensity interval training): -Perform the active warm-up period before participating in exercise at the heart rate (HR) range described below. -Heart Rate (HR) = as tolerated, up to 100-105 bpm (PRIMARY GUIDE; *always take into consideration the timing of when you last took your beta-lela medication (LOPRESSOR) and make only minor adjustments to your target HR zone as needed ). *If your exercise session occurs more than 4 hours after taking your LOPRESSOR medication you may consider increasing the noted HR zone by approximately 5 bpm, as tolerated. -Pedal rate = approximately 50-55 revolutions per minute (rpm). If your cycle does not provide a display of pedal rate consider using a Metronome to help guide the pace and frequency of your pedal rate. If you use a smart phone there are free Metronome apps for download. -Miller = approximately 25-35. (Make minor and gradual adjustments to wheel resistance settings in order to achieve target HR zone, as needed. The Miller zone is less important than the recommended HR zone. Prioritize achieving the target HR zone.) -Rating of perceived exertion (RPE) = 13-14 (refer to above 6-20 scale) *Or, as tolerated, Mode: Treadmill (*no jogging/running; NO high intensity interval training): -Perform the active warm-up period before participating in exercise at the heart rate (HR) range described below. -Heart Rate (HR) = as tolerated, up to 105-110 bpm (PRIMARY GUIDE; *always take into consideration the timing of when you last took your beta-lela medication (LOPRESSOR) and make only minor adjustments to your target HR zone as needed ). *If your exercise session occurs more than 4 hours after taking your LOPRESSOR medication you may consider increasing the noted HR zone by approximately 5 bpm, as tolerated. -Speed = approximately 2.6 to 2.9 mph, Grade = 0.0 to 1.0 %; (Make minor and gradual adjustments to speed and grade settings in order to achieve target HR zone, as needed. The Speed and Grade zones are less important than the recommended HR zone. Prioritize achieving the target HR zone.) -Rating of perceived exertion (RPE) = 13-14 (refer to above 6-20 scale) Frequency per week: -At least 3 days (non-consecutive days is preferred; or up to 6 non-consecutive days, as tolerated) -Choose a time of day (whatever your preference) where you will be able to consistently exercise on a regular basis. Controlling this factor (along with the others) will help you better understand how your body responds to exercise and other types of physical exertion. Weeks 33-36: Total minutes per day (not including warm-up and cool-down time): -as tolerated, up to 35 min (do not exceed time even if you feel the urge to do so) *As tolerated, your exercise can be performed as consecutive minutes. If needed, it is ok if you stop exercise early and begin the active cool-down period. Weeks 37-40: Total minutes per day (not including warm-up and cool-down time): -as tolerated, up to 40 min (do not exceed time even if you feel the urge to do so) *As tolerated, your exercise can be performed as consecutive minutes. If needed, it is ok if you stop exercise early and begin the active cool-down period. -Only progress to the next training block of your program if you are able to consistently perform your exercise as recommended. -If for any reason you have to miss multiple training days in succession (for example, more than 4) in a given week(s), upon resuming your exercise training it would be reasonable to briefly dial back the HR zone intensity and session duration in order to more appropriately re-introduce physical stress to your body. *For example, for 1 week, decrease the HR zone you had been previously working at prior to the time away by at least 5 bpm from both the lower and upper end of the zone. Also decrease the duration of your training sessions by at least 5 min or more. TRAINING BLOCK #6: Week 41-48, and beyond (continue training at this level or at previous intensities long-term): Mode: Stationary Upright Bicycle (NO high intensity interval training): -Perform the active warm-up period before participating in exercise at the heart rate (HR) range described below. -Heart Rate (HR) = as tolerated, up to 105-110 bpm (PRIMARY GUIDE; *always take into consideration the timing of when you last took your beta-lela medication (LOPRESSOR) and make only minor adjustments to your target HR zone as needed ). *If your exercise session occurs more than 4 hours after taking your LOPRESSOR medication you may consider increasing the noted HR zone by approximately 5 bpm, as tolerated. -Pedal rate = approximately 50-55 revolutions per minute (rpm). If your cycle does not provide a display of pedal rate consider using a Metronome to help guide the pace and frequency of your pedal rate. If you use a smart phone there are free Metronome apps for download. -Miller = approximately 30-40. (Make minor and gradual adjustments to wheel resistance settings in order to achieve target HR zone, as needed. The Miller zone is less important than the recommended HR zone. Prioritize achieving the target HR zone.) -Rating of perceived exertion (RPE) = 13-14 (refer to above 6-20 scale) *Or, as tolerated, Mode: Treadmill (*no jogging/running; NO high intensity interval training): -Perform the active warm-up period before participating in exercise at the heart rate (HR) range described below. -Heart Rate (HR) = as tolerated, up to 110-115 bpm (PRIMARY GUIDE; *always take into consideration the timing of when you last took your beta-lela medication (LOPRESSOR) and make only minor adjustments to your target HR zone as needed ). *If your exercise session occurs more than 4 hours after taking your LOPRESSOR medication you may consider increasing the noted HR zone by approximately 5 bpm, as tolerated. -Speed = approximately 2.6 to 3.2 mph, Grade = 0.0 to 2.0 %; (Make minor and gradual adjustments to speed and grade settings in order to achieve target HR zone, as needed. The Speed and Grade zones are less important than the recommended HR zone. Prioritize achieving the target HR zone.) -Rating of perceived exertion (RPE) = 13-14 (refer to above 6-20 scale) Frequency per week: -At least 3 days (non-consecutive days is preferred; or up to 6 non-consecutive days, as tolerated) -Choose a time of day (whatever your preference) where you will be able to consistently exercise on a regular basis. Controlling this factor (along with the others) will help you better understand how your body responds to exercise and other types of physical exertion. Weeks 41-44: Total minutes per day (not including warm-up and cool-down time): -as tolerated, up to 40 min (do not exceed time even if you feel the urge to do so) *As tolerated, your exercise can be performed as consecutive minutes. If needed, it is ok if you stop exercise early and begin the active cool-down period. Weeks 45-48, and beyond (continue training at this level or at previous intensities long-term): Total minutes per day (not including warm-up and cool-down time): -as tolerated, up to 45 min (do not exceed time even if you feel the urge to do so) *As tolerated, your exercise can be performed as consecutive minutes. If needed, it is ok if you stop exercise early and begin the active cool-down period. -If for any reason you have to miss multiple training days in succession (for example, more than 4) in a given week(s), upon resuming your exercise training it would be reasonable to briefly dial back the HR zone intensity and session duration in order to more appropriately re-introduce physical stress to your body. *For example, for 1 week, decrease the HR zone you had been previously working at prior to the time away by at least 5 bpm from both the lower and upper end of the zone. Also decrease the duration of your training sessions by at least 5 min or more. *Exercise cool-down period for exercise sessions*: DO NOT SKIP THE COOL DOWN PERIOD EVER. *Skipping the cool down will increase the likelihood you will experience an increase and persistence of symptoms following exercise. *Duration: at least 5-10 min (take longer time to cool-down as needed. This period should feel very easy, RPE = 6 to 8, refer to above 6-20 scale). -Modality options: -Stationary Upright Bicycle - Wheel resistance: none or the lowest available setting *Pedal rate: approximately 30-35 revolutions per minute (rpm) or lower. If your cycle does not provide a display of pedal rate consider using a Metronome to help guide the pace and frequency of your pedal rate. If you use a smart phone there are free Metronome apps for download. -Rating of perceived exertion (RPE)= 6-8 (use the above 6-20 scale) -Treadmill : approximately 1.7 to 2.0 mph at 0.0 % grade (aim for modest/low level pace; adjust speed, as needed) -Rating of perceived exertion (RPE)= 6-8 (use the above 6-20 scale) Physical Activity associated with daily living: *On days where you feel as if you have more energy and less symptoms than most other days, be extremely mindful to avoid over-exerting yourself by trying to fit into your schedule too many activities and/or to-do list items. This type of running around busy day will often be followed by several days of more severe symptoms until your body is able to fully rest and recover. This can become a weekly cycle that is difficult to break if you do not intentionally manage your energy and intensity on your good days. *If there are days where you do not exercise using above equipment, it may help your symptom management to minimize consecutive minutes spent sedentary. *Throughout the day when you are performing activities of daily living, it may help to keep your exertion level within the 6 to 8 RPE range. Take many short breaks throughout the day as needed. *It may help to be mindful of the cumulative impact that concentrated doses of physical exertion associated with activities of daily living can have on your symptoms. *It may help to avoid frequent steep incline walking and frequently moving up-and-down stairs, particularly when carrying items. *It may help to avoid standing in place for extended periods of time. Break up the time by casually pacing around the room for several minutes. Flexibility/Stretching Components *At least 3 days per week engage in flexibility and stretching movements for upper and lower body limbs. *For your lower body, focus on stretching and/or foam rolling your hip flexors, extensors, and abductors (outside of hips) to help prevent the risk of developing IT band syndrome. *The intensity of stretching movements should be done to point of a feeling tightness or slight discomfort. *Attempt to hold stretch movements for 15-20 seconds at time. Try to do 3-4 sets of stretching for each chosen limb. *Hold your stretches in-place and avoid bouncing back and forth movements. Resistance/Strength Training (*OPTIONAL*): When you have been consistent with your aerobic exercise and have finished Training Block #4 (from above), as tolerated and after self-assessment of your symptoms experienced while engaging in the above exercises, you may have interest in participating in low resistance/high repetition muscle toning exercise to large muscle groups of upper (back/chest) and lower (legs) extremities as well as core (stomach muscles). As needed, seek instruction from a trained professional for proper technique and movement execution. *Always perform aerobic exercise training first. Keep the total time spent performing these weight lifting exercises on a given training day to less than 25 min. This should not be the focus of your exercise plan. *For each strength/resistance exercise, use weights that can be lifted 15 to 20 repetitions to local fatigue. *Perform 1 to 2 sets of each exercise/session at up to 2 times per week on nonconsecutive days. *As tolerated, take at least 2-3 min (or more minutes if needed) of rest between sets. *Do not aim to keep your heart rate elevated during resistance/strength training. *Avoid straining and holding breath while lifting. *Avoid standing in place while lifting weights. When possible, you should be seated when lifting weights. *Avoid overhead strength training exercises when standing. For example, do not engage in shoulder press exercise when standing. *Avoid plank exercises. Do not do full sit-ups. Do not do oblique twist exercises.Do not do lying bicycle ab workout. Do not do hanging leg raises. *Control rate of lifting and lowering weights. *Exercise routines that are similar to Cross-Fit, Bullock Theory, and P90x are not recommended as choices for resistance/strength type training. These types of routines are also not effective 'cardio/aerobic' forms of training and are not equal substitutes for your cardio/aerobic guidelines described above. You can also expect to experience extreme fatigue later on in the day/evening because of these types of exercise routines. *Avoid explosive whole body exercise involving rapid, dynamic and large postural shifts (for example, lunges, squats, Burpee, squat to push press, step ups, plyometrics, etc.). *Traditional YOGA standing and/or down-to-up body position poses can cause immediate lightheadedness/dizziness symptoms. Therefore, please modify movements as needed. Performing movements while only seated on the ground can be an effective modification. Exercise and General Precautions: The following noted points are examples of things to consider when starting an exercise plan designed to assist you in managing the severity of symptoms you experience associated with your medical history. 1. Consistently drink water throughout the day in small sips/quantities to help your symptoms when standing (evidence-based research: Brenda C, Warren VE, Julieta LJ, et al. Water drinking acutely improves orthostatic tolerance in healthy subjects. Circulation. 2002;106(22):8592-9231). Do not gulp or chug water. Slowly drink 8 ounces of water or sports drink 30 minutes before exercise (for example, low calorie options are Powerade zero, G2, propel fitness water, Vitamin Water, Nuun electrolyte tablets, Liquid IV, etc.). 2. Drink 3-5 ounces of water or sports drink every 15 minutes of exercise. DO NOT drink caffeine prior to exercise. 3. Perform both the warm up and cool down periods as described above. 4. If symptoms worsen at any point during the exercise progression, return to previous level of exercise that was well tolerated for one week, then re-attempt next level of exercise. 5. When possible, use of heart rate monitors during exercise are helpful to maintain and monitor exercise intensity based on the target heart rate ranges listed above. *Commercial heart rate monitors are not medical devices and the information acquired from these devices should not be used to make medical diagnostic decisions. *Do NOT monitor your HR while performing activities of daily living, hiking, recreational sports, or other types of quick physical movements throughout your day. 6. Change only one aspect of your exercise routine at one time (for example, mode, duration, frequency, or intensity). 7. When possible, if it has been recommended to you by Dr. Schafer to wear medical grade compression stockings, please consider wearing these during exercise. Wear compression stockings throughout the day, but remove at night while sleeping. 8. If needed, monitor resting blood pressures (try to take at same time of day and location in your home each day). Hold exercise for the day if resting BP is >160/90 mmHg. 9. Continue to take medications as prescribed by Dr. Schafer and other caregivers. 10. As needed, annual in-office visit to [facility]. This should include exercise stress testing and updates to the exercise prescription. As needed, if you have questions at the 6-8 month time point, please consider using the Virtual Visit platform. A Virtual Visit may be appropriate as long as you have a webcam on your computer or smart phone. Visit [email or web address] to download the guide. Questions? Contact technical support at [phone]. *Guide for Video Visits on Your Computer: [email or web address] [email or web address]-[email or web address]-[email or web address]-gu [email or web address]?la=en *Guide for Video Visits on the Mobile Danilo: [email or web address] [email or web address]/online-service s/[email or web address]-[email or web address]-qyeliq/mobile-boone [email or web address]?la=en 11. It may help to avoid engaging in body movements during exercise or activities of daily living requiring rapid changes in body position (for example, lunge exercise, squats, etc.), long periods of time standing still, frequent bending down and up, or carrying weighted items long distances/up/down stairs. 12. It may help to avoid impulsive behaviors and frequent short bursts of physical actions throughout your day and across days of the week. This can cause surges in adrenaline throughout your body, which can contribute to symptoms, such as palpitations/racing heart feelings and delayed onset fatigue. 13. It may help to try to keep frequency and intensity level (modest to moderate) of physical activity associated with engaging in activities of daily living consistent over the course of each day as well as on a day-to-day basis. For example, it may be helpful for you to keep an equal balance of time spent between engaging in activities of daily living and rest to a 1 to 2 ratio. An example of this would be, 20 min of modest intensity house work followed by 40 min of rest. 14. It may help to avoid extended periods of sedentary time. Other than sleep at night, you should consider not lying or sitting for more than 60 consecutive minutes without getting up and walking at a mild pace for 5-10 minutes. Breaking up the time you spend in a sedentary position can help allow muscles in your legs to help pump blood throughout your body. 15. When eating, please consider avoiding large meals and large portions. Smaller meals and portion sizes are better for blood circulation associated with digestion. General recommendation for heart health is the mediterranean style diet ([email or web address]://[email or web address] rg/wwa-npx-etizrq-a-mediterranean -diet/). Activity guidelines were established based on evidence-based research and expert recommendations outlined in: *Kareem et al. 'Effects of exercise training on arterial-cardiac baroreflex function in POTS,' Clin [place] Res. 21:73-80, 2010 *Reji et al. JACC. 2010;55:2858-68 *Merlin et al. The international POTS registry: Evaluating the efficacy of an exercise training intervention in a community setting. Heart Rhythm. 2016; 13:943-950 *Willian KA, Michelle A, Matti F, et al. Sinus Tachycardia: a Multidisciplinary Expert Focused Review. Circulation. Arrhythmia and electrophysiology. 2021;15(9):g214496. *Khari Louis et al. High Submaximal Exercise Heart Rate Impacts Exercise Intolerance in the Postural Orthostatic Tachycardia Syndrome. Journal of Cardiopulmonary Rehabilitation and Prevention. 2019; 1-7. DOI: 10.1097/HCR.9999791624364914 *Hilaria Lopez, Beto Kitchen, Khari HIGGINBOTHAM, Emeli FORRESTER, Willian VINSON. ST-segment changes during tilt table testing for postural tachycardia syndrome: correlation with exercise stress test results. Clinical autonomic research: official journal of the Clinical Autonomic Research Society. 2020;30:79-83. *Larissa HIGGINBOTHAM, Hilaria Lpoez, Khari HIGGINBOTHAM, et al. Functional capacity and quality of life in the postural tachycardia syndrome: A retrospective cross-sectional study. Annals of Medicine and Surgery. 2020. https://doi.org/10.1016/j.amsu.20 20.06.013 FOLLOW UP: *Continue routine follow up with your referring provider, Dr. Schafer, for ongoing/additional discussions regarding other aspects of your symptom management plan. *As needed, annual in-office visit to [facility]. This should include exercise stress testing and updates to the exercise prescription. Thank you for your visit with us today in [facility]. Aaron Crow, PhD Director, Cardiac Rehabilitation Staff, Section of [facility] [address] [place] [address] [address] [place] [address] Office: [phone] Appointment Desk: [phone] documented in this encounter [facility] 03-26-2025 Note [facility] 03-26-2025 History of Present illness Narrative Images from the original note were not included. [facility] Tevin Domingo Department of Cardiovascular Medicine Section of [facility] POTS Consult 03/26/2025 Amie Braxton CHIEF COMPLAINT Ms. Braxton is a 29 year old White female seen today. Patient presents with: Exercise Prescription : POTS PAST MEDICAL HISTORY Diagnosis Date Asthma (HCC) Generalized anxiety disorder GERD (gastroesophageal reflux disease) Interstitial cystitis Laryngopharyngeal reflux (LPR) Migraines PCOS (polycystic ovarian syndrome) Postural orthostatic tachycardia syndrome POTS (postural orthostatic tachycardia syndrome) Tilt x2 ([facility], [facility]) Seasonal allergies Syncope Tachycardia Vocal cord dysfunction PAST SURGICAL HISTORY Procedure Laterality Date TONSILLECTOMY & ADENOIDECTOMY <AGE 14 Known Structural Heart Disease: NO PAST FAMILY AND SOCIAL HISTORY: FAMILY HISTORY Problem Relation Age of Onset other (palpitations) Mother stress No Known Problems Father No Known Problems Sister Skin Cancer Maternal Grandmother other (atrial fibrillation) Maternal Grandmother other (type 2 diabetes) Paternal Grandmother Lung Cancer Paternal Grandfather other (type 2 diabetes) Paternal Uncle SOCIAL HISTORY[1] ALLERGIES: ALLERGIES Allergen Reactions Beef Containing Pro* Intolerance migraines Migraines, upset stomach Beef Derived (Bovin* Hives Egg Derived GI Upset Vomiting even with ingredient of egg Milk Containing Pro* Intolerance, Hives Vomiting. Pineapple Hives, Swelling Hives, difficulty breathing Soy GI Upset vomiting Tree Nuts Other: See Comments Asthma flaring, difficulty breathing Vancomycin Analogues Hives MEDICATIONS: Current Outpatient Medications Medication Sig tinidazole (TINDAMAX) 500 mg tablet Take 2,000 mg by mouth one time only. levalbuterol tartrate HFA 45 mcg/actuation inhaler Inhale 2 puffs as instructed every 4 hours as needed for wheezing/shortness of breath. amitriptyline (ELAVIL) 50 mg tablet Take 1 tablet by mouth daily at bedtime. metFORMIN (GLUCOPHAGE) 500 mg tablet Take 1 tablet by mouth two times a day with meals. hydrOXYzine HCl (ATARAX) 10 mg tablet TAKE 2 TABLETS BY MOUTH EVERY 6 HOURS NEEDED FOR ANXIETY. metoprolol tartrate, short acting, (LOPRESSOR) 25 mg tablet Take 0.5 tablets by mouth two times a day. omeprazole (PRILOSEC) 20 mg capsule Take 1 capsule by mouth two times a day. budesonide-formoterol (SYMBICORT) 160-4.5 mcg/actuation inhaler Inhale 2 puffs as instructed two times a day. Norethindrone, Contraceptive, 0.35 mg tablet Take 1 tablet by mouth once daily. (Patient not taking: Reported on 03/14/2025) ivabradine (CORLANOR) 5 mg tablet Take 1.5 tab by mouth twice a day (Patient taking differently: Take 2.5 mg by mouth two times a day. Take 0.5 tab by mouth twice a day) sertraline (ZOLOFT) 25 mg tablet Take 0.5 tablets by mouth once daily. (Patient taking differently: Take 25 mg by mouth once daily.) albuterol HFA (PROVENTIL HFA, VENTOLIN HFA) 90 mcg/actuation inhaler Inhale 1-2 puffs as instructed every 6 hours as needed for wheezing/shortness of breath. No current facility-administered medications for this visit. PATIENT ENTERED QUESTIONNAIRE SCORES ALERT: PHQ-9 Score: 15 indicates Moderate to Severe Depression 03/26/2025 12/06/2024 10/20/2024 PHQ-9 Score 15 17 23 Patient does not endorse being at risk of self harm or harm to others at this time. No request for new referral to behavioral health made at this time. ALERT: Question 9 of the PHQ-9: Thoughts of Self-Harm endorsed: Several days 03/26/2025 12/06/2024 10/20/2024 TERA - 2/7 SCORES TERA-2 Score 2 4 6 TERA-7 Score 9 14 19 03/26/2025 02/13/2025 01/16/2025 PROMIS Global Health - (T-Scores - the mean of general population = 50. Five points is a clinically meaningful difference.) Physical T-Score 37.4 32.4 32.4 34.9 Mental T-Score 36.3 38.8 38.8 36.3 CURRENT DIAGNOSIS RELATED SYMPTOMS: Date/Age of onset late 2019 after COVID infection, Dizziness, Lightheadedness, Palpitations, and brain fog, syncope 2 times in past; migraines; tachy palpitations LIFESTYLE: High sodium diet, Increased fluids, and Compression stockings EXERCISE: History: walking 60 minutes daily, outdoors, typically on paved paths that are more flat but occasional hilly trails Access to Exercise Equipment: [facility] Barriers: heat; POTS symptoms; [facility] CLINICAL TESTING RESULTS: * * *Final Report* * * DATE OF EXAM: Oct 04 2024 3:06PM [facility] [id number] - CTA CHEST (NON GATED) W BLAINEON PE / PROCEDURE REASON: Pulmonary embolism (PE) suspected, high prob * * * * Physician Interpretation * * * * EXAMINATION: CHEST CTA (NON GATED) WITH CONTRAST (PULMONARY EMBOLISM PROTOCOL) Clinical History: Pulmonary embolism (PE) suspected, high prob tachycardia, chest pain Technique: Spiral CT acquisition of the chest from the thoracic inlet to the upper abdomen following IV contrast. Axial 1 and 3 mm thick slices plus coronal and sagittal reformatted images. MQ: CTCP_5 Contrast: 100 mL Omnipaque [address] Radiation dose: Integrated Dose-length product (DLP) for this visit = 121 mGy*cm CT Dose Reduction Employed: Automated exposure control(AEC) and iterative recon CTA: Post-processed images (Maximum intensity Projection (MIP), Volume-rendered (VR), or Surface shaded display images (SSD) were created, reviewed and archived. Comparison: Chest radiograph 09/28/2024 and priors RESULT: Limitations: Suboptimal study due to respiratory motion with or without non-ideal pulmonary arterial enhancement. Evaluation for thromboembolic disease: - Right heart chambers: No thromboembolic disease. - Main pulmonary arteries: No thromboembolic disease. - Lobar pulmonary arteries: No thromboembolic disease. - Segmental pulmonary arteries: No thromboembolic disease. - Subsegmental pulmonary arteries: Degraded due to contrast bolus timing. - Additional pulmonary artery findings: The main pulmonary artery is normal in caliber. Lines, tubes, and devices: None. Lung parenchyma and airways: No consolidation. Stable 0.3 cm triangular-shaped nodule in the anterior basal right lower lobe likely represents an intrapulmonary lymph node (6, 193) No suspicious pulmonary nodule. The central airways are patent. Pleural space: No pleural effusion. No pleural thickening. Lower neck, lymph nodes, and mediastinum: The imaged thyroid gland is normal. No lymphadenopathy in the supraclavicular, axillary, mediastinal, or hilar regions. Heart, pericardium, and thoracic vessels: The thoracic aorta is normal in caliber. The cardiac chambers are normal in size. No coronary artery atherosclerotic calcifications are noted, although the study is not optimized for coronary assessment. No pericardial effusion or thickening. Bones and soft tissues: No acute osseous abnormalities. Upper abdomen: No acute abnormality in the imaged upper abdomen. Localizer images: No additional findings. Impression IMPRESSION: No CT evidence of pulmonary embolism, no signs of right heart strain.. No acute findings in the chest. Mental Health Aide: MARIA INES Transcribe Date/Time: Oct 04 2024 3:37P Dictated by : DAVE PORTILLO MD This examination was interpreted and the report reviewed and electronically signed by: DAVE PORTILLO MD on Mar 27 2025 3:50PM EST Exercise Test Amie Braxton demonstrated an end exercise capacity equal to 7 METS and 84 MILLER (protocol, Upright Cycle), while being free from signs and symptoms of ischemia on March 26, 2025. her end-exercise heart rate was 141 bpm (2 H since LOPRESSOR) , whereas her relative end-exercise heart rate was 73 % of her age predicted maximal response. The exercise test was terminated because of Leg Fatigue. Dyspnea (6, 0-10 scale). Lightheadedness/dizziness were also experienced during stress Angina was not provoked by stress Stress lab notes POOR ECG quality. However, they also note post-exercise stress 1.5-2.[address] segment changes in INF leads in minute 2 and 3, but resolving by minute 5. These are likely to be false-positive and not clinically significant. Patient demonstrated during prior exercise stress test at [facility] in 02/2024 ST segment changes that were not clinically significant. The observations have been communicated to the patient's skin pass operator, Dr. Schafer, for their review and follow up with patient, as needed. No arrhythmias provoked by exercise stress Normal exercise blood pressure See Epic results for finalized test report and interpretations. Test Impression: They demonstrated an estimated end-exercise METS achieved in the lower 30th percentile for age and sex. AEROBIC-BASED EXERCISE TRAINING PLAN FOR SYMPTOM MANAGEMENT: Initiate the self-supervised aerobic-based exercise prescription for Postural Orthostatic Tachycardia Syndrome (POTS) symptom management as outlined below: *Participation in structured aerobic-based exercise as recommended below constitutes a SINGLE aspect of your POTS symptom management plan and should not be viewed as the only factor responsible for managing the severity of your symptoms. *Structured, consistent, and specific aerobic-based exercise is therapeutic and can provide you with a dose-benefit response. This means the more consistent you can be with performing intentional aerobic-based exercise at a safe and appropriate intensity, the more likely you are to see the benefits of aerobic-based exercise training for managing your symptoms. *Do not participate in maximal intensity exercise and/or other forms of severe/heavy intensity physical exertion for your symptom management plan. *Participation in high intensity interval training (HIIT) is not recommended when aiming to exercise train for managing symptom severity. *Participating in maximal/high/severe/heavy intensity physical exertion regardless of whether it occurs in a gym or elsewhere will commonly result in feeling the need to rest/recover for up to 3-4 days before feeling energy and physical endurance levels return to a higher baseline. *Consistently drink water throughout the day in small sips/quantities. Not drinking enough water throughout the day will increase the likelihood your heart rate will rise to levels higher than typical while at rest as well as when changing body positions from sitting to standing. *Do not gulp or chug water. Aerobic Exercise Training: -Choose a time of day (whatever your preference) where you will be able to consistently exercise on a regular basis. Controlling this factor (along with the others) will help you better understand how your body responds to exercise and other types of physical exertion. Subjective exercise intensity scale Rating of perceived exertion (RPE) scale (6-20): *When guiding exercise training intensities, inclusively consider *HR zones (primary guide)*, workload zones, symptoms, and RPE zones. *If you need to make adjustments to the recommended exercise machine settings (noted below) in order to achieve your target HR zone this is perfectly ok. *Commercial devices that can be used to monitor HR while exercising include for example: *POLAR chest strap (model: H10 with any POLAR wrist device, such as the POLAR UNITE); *Smart Watch ([employer], [employer], Space Pencil, Crunched, Ciapple, etc) *Commercial heart rate monitors used during exercise training are not medical devices and the information acquired from these devices should not be used to make medical diagnostic decisions. *Do NOT monitor your HR while performing activities of daily living, recreational sports, hiking, or other types of quick physical movements throughout your day. *If any exercise occurs outdoors, it will be more difficult to maintain consistent control of your HR response to exercise due to numerous environmental and terrain factors. *You can also expect to expend more energy when performing your exercise outdoors due the influences of numerous environmental and terrain factors. Therefore, take a more conservative approach when performing your exercise training outdoors. *Always consider the timing of when you take your beta-lela therapy (LOPRESSOR) relative to when you exercise, particularly as it relates to basing exercise intensity on HR training zones. *This medication can impact how high your HR rises during exercise. As best as possible, keep the time difference between when you take your b-lela and when you exercise as consistent as possible. *The b-lela medication will have the strongest effect on keeping your heart rate from rising too high within an approximate 1 to 4 hour window after taking. *For example, if you exercise 8 to 10 hours after taking your b-lela you could expect to see your heart rate rise to higher levels compared with if you exercised within the 1 to 4 hour window after taking the medication. Keep this in mind so you have a better understanding of why your heart rate during exercise might differ day-to-day. *Slowly drink 8-12 ounces of water or sports drink within the 30 minutes before exercise (for example, low calorie sugar-free options are Powerade zero, G2, propel fitness water, Vitamin Water, Nuun electrolyte tablets, Liquid IV, etc.). *If you begin exercise without having taken in enough fluid throughout the day, it will be easier for your body temperature to rise quickly and lead to the feeling of being overheated. *Continue to drink fluid throughout exercise and the recovery period as needed. *DO NOT drink caffeine within 3 hours prior to exercise. *Warm-up exercise period immediately prior to performing sessions*: DO NOT SKIP THE WARM UP EVER. The warm up should be performed on the exact piece of equipment you plan on performing your exercise training that day. Do not perform multiple warm up periods on different pieces of equipment. *Skipping the warm up will increase the likelihood you will experience an increase in symptoms during exercise. -Duration: at least 6-8 min (take longer time to warm-up as needed). -Modality options: -Stationary Upright Bicycle - Wheel resistance: none or the lowest available setting *Pedal rate: approximately 30-35 revolutions per minute (rpm) or lower. If your cycle does not provide a display of pedal rate consider using a Metronome to help guide the pace and frequency of your pedal rate. If you use a smart phone there are free Metronome apps for download. -Take as much time as you need after to allow your body to get settled after changing body positions from standing to sitting. -Intensity: heart rate (HR) = 75-80 bpm and Rating of perceived exertion (RPE)= 6-8 (use the above 6-20 scale). *If your exercise session occurs more than 4 hours after taking your LOPRESSOR medication you may consider increasing the noted HR zone by approximately 5 bpm, as tolerated. -(eventually in your exercise progression) Treadmill: approximately 1.5 to 1.8 mph at 0.0 % grade (modest/low level pace; adjust speed setting, as needed). -Intensity: heart rate (HR) = 80-85 bpm and Rating of perceived exertion (RPE)= 6-8 (use the above 6-20 scale). *If your exercise session occurs more than 4 hours after taking your LOPRESSOR medication you may consider increasing the noted HR zone by approximately 5 bpm, as tolerated. *Aerobic Exercise Sessions by Week and Modality*: TRAINING BLOCK #1: Week 1-8 or longer (this is the minimum number of weeks. If necessary, make this training block as long as you need): Mode: Stationary Upright Bicycle (NO high intensity interval training): -Perform the active warm-up period before participating in exercise at the heart rate (HR) range described below. -Heart Rate (HR) = as tolerated, up to 80-85 bpm (PRIMARY GUIDE; *always take into consideration the timing of when you last took your beta-lela medication (LOPRESSOR) and make only minor adjustments to your target HR zone as needed ). *If your exercise session occurs more than 4 hours after taking your LOPRESSOR medication you may consider increasing the noted HR zone by approximately 5 bpm, as tolerated. -Pedal rate = approximately 50-55 revolutions per minute (rpm). If your cycle does not provide a display of pedal rate consider using a Metronome to help guide the pace and frequency of your pedal rate. If you use a smart phone there are free Metronome apps for download. -Miller = approximately 10-15 . (Make minor and gradual adjustments to wheel resistance settings in order to achieve target HR zone, as needed. The Miller zone is less important than the recommended HR zone. Prioritize achieving the target HR zone.) -Rating of perceived exertion (RPE) = 10-12 (refer to above 6-20 scale) Frequency per week: -At least 3 days (non-consecutive days is preferred; or up to 5 non-consecutive days, as tolerated) -Choose a time of day (whatever your preference) where you will be able to consistently exercise on a regular basis. Controlling this factor (along with the others) will help you better understand how your body responds to exercise and other types of physical exertion. Weeks 1-4: Total minutes per day (not including warm-up and cool-down time): -as tolerated, up to 15 min (do not exceed time even if you feel the urge to do so) *As tolerated, your exercise can be performed as consecutive minutes. If needed, it is ok if you stop exercise early and begin the active cool-down period. Weeks 5-8: Total minutes per day (not including warm-up and cool-down time): -as tolerated, up to 20 min (do not exceed time even if you feel the urge to do so) *As tolerated, your exercise can be performed as consecutive minutes. If needed, it is ok if you stop exercise early and begin the active cool-down period. -Only progress to the next training block of your program if you are able to consistently perform your exercise without experiencing any worsening of your symptoms. -If for any reason you have to miss multiple training days in succession (for example, more than 4) in a given week(s), upon resuming your exercise training it would be reasonable to briefly dial back the HR zone intensity and session duration in order to more appropriately re-introduce physical stress to your body. *For example, for 1 week, decrease the HR zone you had been previously working at prior to the time away by at least 5 bpm from both the lower and upper end of the zone. Also decrease the duration of your training sessions by at least 5 min or more. TRAINING BLOCK #2: Week 9-16 or longer (this is the minimum number of weeks. If necessary, make this training block as long as you need): Mode: Stationary Upright Bicycle (NO high intensity interval training): -Perform the active warm-up period before participating in exercise at the heart rate (HR) range described below. -Heart Rate (HR) = as tolerated, up to 85-90 bpm (PRIMARY GUIDE; *always take into consideration the timing of when you last took your beta-ella medication (LOPRESSOR) and make only minor adjustments to your target HR zone as needed ). *If your exercise session occurs more than 4 hours after taking your LOPRESSOR medication you may consider increasing the noted HR zone by approximately 5 bpm, as tolerated. -Pedal rate = approximately 50-55 revolutions per minute (rpm). If your cycle does not provide a display of pedal rate consider using a Metronome to help guide the pace and frequency of your pedal rate. If you use a smart phone there are free Metronome apps for download. -Miller = approximately 10-20 . (Make minor and gradual adjustments to wheel resistance settings in order to achieve target HR zone, as needed. The Miller zone is less important than the recommended HR zone. Prioritize achieving the target HR zone.) -Rating of perceived exertion (RPE) = 11-12 (refer to above 6-20 scale) Frequency per week: -At least 3 days (non-consecutive days is preferred; or up to 5 non-consecutive days, as tolerated) -Choose a time of day (whatever your preference) where you will be able to consistently exercise on a regular basis. Controlling this factor (along with the others) will help you better understand how your body responds to exercise and other types of physical exertion. Weeks 9-12: Total minutes per day (not including warm-up and cool-down time): -as tolerated, up to 20 min (do not exceed time even if you feel the urge to do so) *As tolerated, your exercise can be performed as consecutive minutes. If needed, it is ok if you stop exercise early and begin the active cool-down period. Weeks 13-16: Total minutes per day (not including warm-up and cool-down time): -as tolerated, up to 25 min (do not exceed time even if you feel the urge to do so) *As tolerated, your exercise can be performed as consecutive minutes. If needed, it is ok if you stop exercise early and begin the active cool-down period. -Only progress to the next training block of your program if you are able to consistently perform your exercise without experiencing any worsening of your symptoms. -If for any reason you have to miss multiple training days in succession (for example, more than 4) in a given week(s), upon resuming your exercise training it would be reasonable to briefly dial back the HR zone intensity and session duration in order to more appropriately re-introduce physical stress to your body. *For example, for 1 week, decrease the HR zone you had been previously working at prior to the time away by at least 5 bpm from both the lower and upper end of the zone. Also decrease the duration of your training sessions by at least 5 min or more. TRAINING BLOCK #3: Week 17-24 or longer (this is the minimum number of weeks. If necessary, make this training block as long as you need): Mode: Stationary Upright Bicycle (NO high intensity interval training): -Perform the active warm-up period before participating in exercise at the heart rate (HR) range described below. -Heart Rate (HR) = as tolerated, up to 90-95 bpm (PRIMARY GUIDE; *always take into consideration the timing of when you last took your beta-lela medication (LOPRESSOR) and make only minor adjustments to your target HR zone as needed ). *If your exercise session occurs more than 4 hours after taking your LOPRESSOR medication you may consider increasing the noted HR zone by approximately 5 bpm, as tolerated. -Pedal rate = approximately 50-55 revolutions per minute (rpm). If your cycle does not provide a display of pedal rate consider using a Metronome to help guide the pace and frequency of your pedal rate. If you use a smart phone there are free Metronome apps for download. -Miller = approximately 15-25. (Make minor and gradual adjustments to wheel resistance settings in order to achieve target HR zone, as needed. The Miller zone is less important than the recommended HR zone. Prioritize achieving the target HR zone.) -Rating of perceived exertion (RPE) = 12-13 (refer to above 6-20 scale) Frequency per week: -At least 3 days (non-consecutive days is preferred; or up to 5 non-consecutive days, as tolerated) -Choose a time of day (whatever your preference) where you will be able to consistently exercise on a regular basis. Controlling this factor (along with the others) will help you better understand how your body responds to exercise and other types of physical exertion. Weeks 17-20: Total minutes per day (not including warm-up and cool-down time): -as tolerated, up to 25 min (do not exceed time even if you feel the urge to do so) *As tolerated, your exercise can be performed as consecutive minutes. If needed, it is ok if you stop exercise early and begin the active cool-down period. Weeks 21-24: Total minutes per day (not including warm-up and cool-down time): -as tolerated, up to 30 min (do not exceed time even if you feel the urge to do so) *As tolerated, your exercise can be performed as consecutive minutes. If needed, it is ok if you stop exercise early and begin the active cool-down period. -Only progress to the next training block of your program if you are able to consistently perform your exercise without experiencing any worsening of your symptoms. -If for any reason you have to miss multiple training days in succession (for example, more than 4) in a given week(s), upon resuming your exercise training it would be reasonable to briefly dial back the HR zone intensity and session duration in order to more appropriately re-introduce physical stress to your body. *For example, for 1 week, decrease the HR zone you had been previously working at prior to the time away by at least 5 bpm from both the lower and upper end of the zone. Also decrease the duration of your training sessions by at least 5 min or more. TRAINING BLOCK #4: Week 25-32 or longer (this is the minimum number of weeks. If necessary, make this training block as long as you need): Mode: Stationary Upright Bicycle (NO high intensity interval training): -Perform the active warm-up period before participating in exercise at the heart rate (HR) range described below. -Heart Rate (HR) = as tolerated, up to 95-100 bpm (PRIMARY GUIDE; *always take into consideration the timing of when you last took your beta-lela medication (LOPRESSOR) and make only minor adjustments to your target HR zone as needed ). *If your exercise session occurs more than 4 hours after taking your LOPRESSOR medication you may consider increasing the noted HR zone by approximately 5 bpm, as tolerated. -Pedal rate = approximately 50-55 revolutions per minute (rpm). If your cycle does not provide a display of pedal rate consider using a Metronome to help guide the pace and frequency of your pedal rate. If you use a smart phone there are free Metronome apps for download. -Miller = approximately 20-30. (Make minor and gradual adjustments to wheel resistance settings in order to achieve target HR zone, as needed. The Miller zone is less important than the recommended HR zone. Prioritize achieving the target HR zone.) -Rating of perceived exertion (RPE) = 12-13 (refer to above 6-20 scale) *Or, as tolerated, after week #28 you may want to try integrating the Treadmill as an option for your exercise training, Mode: Treadmill (*no jogging/running; NO high intensity interval training): -Perform the active warm-up period before participating in exercise at the heart rate (HR) range described below. -Heart Rate (HR) = as tolerated, up to 100-105 bpm (PRIMARY GUIDE; *always take into consideration the timing of when you last took your beta-lela medication (LOPRESSOR) and make only minor adjustments to your target HR zone as needed ). *If your exercise session occurs more than 4 hours after taking your LOPRESSOR medication you may consider increasing the noted HR zone by approximately 5 bpm, as tolerated. -Speed = approximately 2.4 to 2.7 mph, Grade = 0.0 to 1.0 %; (Make minor and gradual adjustments to speed and grade settings in order to achieve target HR zone, as needed. The Speed and Grade zones are less important than the recommended HR zone. Prioritize achieving the target HR zone.) -Rating of perceived exertion (RPE) = 12-13 (refer to above 6-20 scale) Frequency per week: -At least 3 days (non-consecutive days is preferred; or up to 5 non-consecutive days, as tolerated) -Choose a time of day (whatever your preference) where you will be able to consistently exercise on a regular basis. Controlling this factor (along with the others) will help you better understand how your body responds to exercise and other types of physical exertion. Weeks 25-28: Total minutes per day (not including warm-up and cool-down time): -as tolerated, up to 30 min (do not exceed time even if you feel the urge to do so) *As tolerated, your exercise can be performed as consecutive minutes. If needed, it is ok if you stop exercise early and begin the active cool-down period. Weeks 29-32: Total minutes per day (not including warm-up and cool-down time): -as tolerated, up to 35 min (do not exceed time even if you feel the urge to do so) *As tolerated, your exercise can be performed as consecutive minutes. If needed, it is ok if you stop exercise early and begin the active cool-down period. -Only progress to the next training block of your program if you are able to consistently perform your exercise without experiencing any worsening of your symptoms. -If for any reason you have to miss multiple training days in succession (for example, more than 4) in a given week(s), upon resuming your exercise training it would be reasonable to briefly dial back the HR zone intensity and session duration in order to more appropriately re-introduce physical stress to your body. *For example, for 1 week, decrease the HR zone you had been previously working at prior to the time away by at least 5 bpm from both the lower and upper end of the zone. Also decrease the duration of your training sessions by at least 5 min or more. TRAINING BLOCK #5: Week 33-40 or longer (this is the minimum number of weeks. If necessary, make this training block as long as you need): Mode: Stationary Upright Bicycle (NO high intensity interval training): -Perform the active warm-up period before participating in exercise at the heart rate (HR) range described below. -Heart Rate (HR) = as tolerated, up to 100-105 bpm (PRIMARY GUIDE; *always take into consideration the timing of when you last took your beta-lela medication (LOPRESSOR) and make only minor adjustments to your target HR zone as needed ). *If your exercise session occurs more than 4 hours after taking your LOPRESSOR medication you may consider increasing the noted HR zone by approximately 5 bpm, as tolerated. -Pedal rate = approximately 50-55 revolutions per minute (rpm). If your cycle does not provide a display of pedal rate consider using a Metronome to help guide the pace and frequency of your pedal rate. If you use a smart phone there are free Metronome apps for download. -Miller = approximately 25-35. (Make minor and gradual adjustments to wheel resistance settings in order to achieve target HR zone, as needed. The Miller zone is less important than the recommended HR zone. Prioritize achieving the target HR zone.) -Rating of perceived exertion (RPE) = 13-14 (refer to above 6-20 scale) *Or, as tolerated, Mode: Treadmill (*no jogging/running; NO high intensity interval training): -Perform the active warm-up period before participating in exercise at the heart rate (HR) range described below. -Heart Rate (HR) = as tolerated, up to 105-110 bpm (PRIMARY GUIDE; *always take into consideration the timing of when you last took your beta-lela medication (LOPRESSOR) and make only minor adjustments to your target HR zone as needed ). *If your exercise session occurs more than 4 hours after taking your LOPRESSOR medication you may consider increasing the noted HR zone by approximately 5 bpm, as tolerated. -Speed = approximately 2.6 to 2.9 mph, Grade = 0.0 to 1.0 %; (Make minor and gradual adjustments to speed and grade settings in order to achieve target HR zone, as needed. The Speed and Grade zones are less important than the recommended HR zone. Prioritize achieving the target HR zone.) -Rating of perceived exertion (RPE) = 13-14 (refer to above 6-20 scale) Frequency per week: -At least 3 days (non-consecutive days is preferred; or up to 6 non-consecutive days, as tolerated) -Choose a time of day (whatever your preference) where you will be able to consistently exercise on a regular basis. Controlling this factor (along with the others) will help you better understand how your body responds to exercise and other types of physical exertion. Weeks 33-36: Total minutes per day (not including warm-up and cool-down time): -as tolerated, up to 35 min (do not exceed time even if you feel the urge to do so) *As tolerated, your exercise can be performed as consecutive minutes. If needed, it is ok if you stop exercise early and begin the active cool-down period. Weeks 37-40: Total minutes per day (not including warm-up and cool-down time): -as tolerated, up to 40 min (do not exceed time even if you feel the urge to do so) *As tolerated, your exercise can be performed as consecutive minutes. If needed, it is ok if you stop exercise early and begin the active cool-down period. -Only progress to the next training block of your program if you are able to consistently perform your exercise as recommended. -If for any reason you have to miss multiple training days in succession (for example, more than 4) in a given week(s), upon resuming your exercise training it would be reasonable to briefly dial back the HR zone intensity and session duration in order to more appropriately re-introduce physical stress to your body. *For example, for 1 week, decrease the HR zone you had been previously working at prior to the time away by at least 5 bpm from both the lower and upper end of the zone. Also decrease the duration of your training sessions by at least 5 min or more. TRAINING BLOCK #6: Week 41-48, and beyond (continue training at this level or at previous intensities long-term): Mode: Stationary Upright Bicycle (NO high intensity interval training): -Perform the active warm-up period before participating in exercise at the heart rate (HR) range described below. -Heart Rate (HR) = as tolerated, up to 105-110 bpm (PRIMARY GUIDE; *always take into consideration the timing of when you last took your beta-lela medication (LOPRESSOR) and make only minor adjustments to your target HR zone as needed ). *If your exercise session occurs more than 4 hours after taking your LOPRESSOR medication you may consider increasing the noted HR zone by approximately 5 bpm, as tolerated. -Pedal rate = approximately 50-55 revolutions per minute (rpm). If your cycle does not provide a display of pedal rate consider using a Metronome to help guide the pace and frequency of your pedal rate. If you use a smart phone there are free Metronome apps for download. -Miller = approximately 30-40. (Make minor and gradual adjustments to wheel resistance settings in order to achieve target HR zone, as needed. The Miller zone is less important than the recommended HR zone. Prioritize achieving the target HR zone.) -Rating of perceived exertion (RPE) = 13-14 (refer to above 6-20 scale) *Or, as tolerated, Mode: Treadmill (*no jogging/running; NO high intensity interval training): -Perform the active warm-up period before participating in exercise at the heart rate (HR) range described below. -Heart Rate (HR) = as tolerated, up to 110-115 bpm (PRIMARY GUIDE; *always take into consideration the timing of when you last took your beta-lela medication (LOPRESSOR) and make only minor adjustments to your target HR zone as needed ). *If your exercise session occurs more than 4 hours after taking your LOPRESSOR medication you may consider increasing the noted HR zone by approximately 5 bpm, as tolerated. -Speed = approximately 2.6 to 3.2 mph, Grade = 0.0 to 2.0 %; (Make minor and gradual adjustments to speed and grade settings in order to achieve target HR zone, as needed. The Speed and Grade zones are less important than the recommended HR zone. Prioritize achieving the target HR zone.) -Rating of perceived exertion (RPE) = 13-14 (refer to above 6-20 scale) Frequency per week: -At least 3 days (non-consecutive days is preferred; or up to 6 non-consecutive days, as tolerated) -Choose a time of day (whatever your preference) where you will be able to consistently exercise on a regular basis. Controlling this factor (along with the others) will help you better understand how your body responds to exercise and other types of physical exertion. Weeks 41-44: Total minutes per day (not including warm-up and cool-down time): -as tolerated, up to 40 min (do not exceed time even if you feel the urge to do so) *As tolerated, your exercise can be performed as consecutive minutes. If needed, it is ok if you stop exercise early and begin the active cool-down period. Weeks 45-48, and beyond (continue training at this level or at previous intensities long-term): Total minutes per day (not including warm-up and cool-down time): -as tolerated, up to 45 min (do not exceed time even if you feel the urge to do so) *As tolerated, your exercise can be performed as consecutive minutes. If needed, it is ok if you stop exercise early and begin the active cool-down period. -If for any reason you have to miss multiple training days in succession (for example, more than 4) in a given week(s), upon resuming your exercise training it would be reasonable to briefly dial back the HR zone intensity and session duration in order to more appropriately re-introduce physical stress to your body. *For example, for 1 week, decrease the HR zone you had been previously working at prior to the time away by at least 5 bpm from both the lower and upper end of the zone. Also decrease the duration of your training sessions by at least 5 min or more. *Exercise cool-down period for exercise sessions*: DO NOT SKIP THE COOL DOWN PERIOD EVER. *Skipping the cool down will increase the likelihood you will experience an increase and persistence of symptoms following exercise. *Duration: at least 5-10 min (take longer time to cool-down as needed. This period should feel very easy, RPE = 6 to 8, refer to above 6-20 scale). -Modality options: -Stationary Upright Bicycle - Wheel resistance: none or the lowest available setting *Pedal rate: approximately 30-35 revolutions per minute (rpm) or lower. If your cycle does not provide a display of pedal rate consider using a Metronome to help guide the pace and frequency of your pedal rate. If you use a smart phone there are free Metronome apps for download. -Rating of perceived exertion (RPE)= 6-8 (use the above 6-20 scale) -Treadmill : approximately 1.7 to 2.0 mph at 0.0 % grade (aim for modest/low level pace; adjust speed, as needed) -Rating of perceived exertion (RPE)= 6-8 (use the above 6-20 scale) Physical Activity associated with daily living: *On days where you feel as if you have more energy and less symptoms than most other days, be extremely mindful to avoid over-exerting yourself by trying to fit into your schedule too many activities and/or to-do list items. This type of running around busy day will often be followed by several days of more severe symptoms until your body is able to fully rest and recover. This can become a weekly cycle that is difficult to break if you do not intentionally manage your energy and intensity on your good days. *If there are days where you do not exercise using above equipment, it may help your symptom management to minimize consecutive minutes spent sedentary. *Throughout the day when you are performing activities of daily living, it may help to keep your exertion level within the 6 to 8 RPE range. Take many short breaks throughout the day as needed. *It may help to be mindful of the cumulative impact that concentrated doses of physical exertion associated with activities of daily living can have on your symptoms. *It may help to avoid frequent steep incline walking and frequently moving up-and-down stairs, particularly when carrying items. *It may help to avoid standing in place for extended periods of time. Break up the time by casually pacing around the room for several minutes. Flexibility/Stretching Components *At least 3 days per week engage in flexibility and stretching movements for upper and lower body limbs. *For your lower body, focus on stretching and/or foam rolling your hip flexors, extensors, and abductors (outside of hips) to help prevent the risk of developing IT band syndrome. *The intensity of stretching movements should be done to point of a feeling tightness or slight discomfort. *Attempt to hold stretch movements for 15-20 seconds at time. Try to do 3-4 sets of stretching for each chosen limb. *Hold your stretches in-place and avoid bouncing back and forth movements. Resistance/Strength Training (*OPTIONAL*): When you have been consistent with your aerobic exercise and have finished Training Block #4 (from above), as tolerated and after self-assessment of your symptoms experienced while engaging in the above exercises, you may have interest in participating in low resistance/high repetition muscle toning exercise to large muscle groups of upper (back/chest) and lower (legs) extremities as well as core (stomach muscles). As needed, seek instruction from a trained professional for proper technique and movement execution. *Always perform aerobic exercise training first. Keep the total time spent performing these weight lifting exercises on a given training day to less than 25 min. This should not be the focus of your exercise plan. *For each strength/resistance exercise, use weights that can be lifted 15 to 20 repetitions to local fatigue. *Perform 1 to 2 sets of each exercise/session at up to 2 times per week on nonconsecutive days. *As tolerated, take at least 2-3 min (or more minutes if needed) of rest between sets. *Do not aim to keep your heart rate elevated during resistance/strength training. *Avoid straining and holding breath while lifting. *Avoid standing in place while lifting weights. When possible, you should be seated when lifting weights. *Avoid overhead strength training exercises when standing. For example, do not engage in shoulder press exercise when standing. *Avoid plank exercises. Do not do full sit-ups. Do not do oblique twist exercises.Do not do lying bicycle ab workout. Do not do hanging leg raises. *Control rate of lifting and lowering weights. *Exercise routines that are similar to Cross-Fit, Bullock Theory, and P90x are not recommended as choices for resistance/strength type training. These types of routines are also not effective 'cardio/aerobic' forms of training and are not equal substitutes for your cardio/aerobic guidelines described above. You can also expect to experience extreme fatigue later on in the day/evening because of these types of exercise routines. *Avoid explosive whole body exercise involving rapid, dynamic and large postural shifts (for example, lunges, squats, Burpee, squat to push press, step ups, plyometrics, etc.). *Traditional YOGA standing and/or down-to-up body position poses can cause immediate lightheadedness/dizziness symptoms. Therefore, please modify movements as needed. Performing movements while only seated on the ground can be an effective modification. Exercise and General Precautions: The following noted points are examples of things to consider when starting an exercise plan designed to assist you in managing the severity of symptoms you experience associated with your medical history. 1. Consistently drink water throughout the day in small sips/quantities to help your symptoms when standing (evidence-based research: Brenda Perez, Warren VE, Julieta LJ, et al. Water drinking acutely improves orthostatic tolerance in healthy subjects. Circulation. 2002;106(22):4205-6268). Do not gulp or chug water. Slowly drink 8 ounces of water or sports drink 30 minutes before exercise (for example, low calorie options are Powerade zero, G2, propel fitness water, Vitamin Water, Nuun electrolyte tablets, Liquid IV, etc.). 2. Drink 3-5 ounces of water or sports drink every 15 minutes of exercise. DO NOT drink caffeine prior to exercise. 3. Perform both the warm up and cool down periods as described above. 4. If symptoms worsen at any point during the exercise progression, return to previous level of exercise that was well tolerated for one week, then re-attempt next level of exercise. 5. When possible, use of heart rate monitors during exercise are helpful to maintain and monitor exercise intensity based on the target heart rate ranges listed above. *Commercial heart rate monitors are not medical devices and the information acquired from these devices should not be used to make medical diagnostic decisions. *Do NOT monitor your HR while performing activities of daily living, hiking, recreational sports, or other types of quick physical movements throughout your day. 6. Change only one aspect of your exercise routine at one time (for example, mode, duration, frequency, or intensity). 7. When possible, if it has been recommended to you by Dr. Schafer to wear medical grade compression stockings, please consider wearing these during exercise. Wear compression stockings throughout the day, but remove at night while sleeping. 8. If needed, monitor resting blood pressures (try to take at same time of day and location in your home each day). Hold exercise for the day if resting BP is >160/90 mmHg. 9. Continue to take medications as prescribed by Dr. Schafer and other caregivers. 10. As needed, annual in-office visit to [facility]. This should include exercise stress testing and updates to the exercise prescription. As needed, if you have questions at the 6-8 month time point, please consider using the Virtual Visit platform. A Virtual Visit may be appropriate as long as you have a webcam on your computer or smart phone. Visit [email or web address] to download the guide. Questions? Contact technical support at [phone]. *Guide for Video Visits on Your Computer: https://my.[facility] [email or web address]/-/ scassets/files/org/online-service s/qnqroiu-pevxb-cktdmp/desktop-gu yeimi.ashx?la=en *Guide for Video Visits on the Mobile Danilo: https://my.[facility].org/-/ iExploreets/files/org/online-service s/sarslag-woehc-sepqwl/mobile-boone de.ashx?la=en 11. It may help to avoid engaging in body movements during exercise or activities of daily living requiring rapid changes in body position (for example, lunge exercise, squats, etc.), long periods of time standing still, frequent bending down and up, or carrying weighted items long distances/up/down stairs. 12. It may help to avoid impulsive behaviors and frequent short bursts of physical actions throughout your day and across days of the week. This can cause surges in adrenaline throughout your body, which can contribute to symptoms, such as palpitations/racing heart feelings and delayed onset fatigue. 13. It may help to try to keep frequency and intensity level (modest to moderate) of physical activity associated with engaging in activities of daily living consistent over the course of each day as well as on a day-to-day basis. For example, it may be helpful for you to keep an equal balance of time spent between engaging in activities of daily living and rest to a 1 to 2 ratio. An example of this would be, 20 min of modest intensity house work followed by 40 min of rest. 14. It may help to avoid extended periods of sedentary time. Other than sleep at night, you should consider not lying or sitting for more than 60 consecutive minutes without getting up and walking at a mild pace for 5-10 minutes. Breaking up the time you spend in a sedentary position can help allow muscles in your legs to help pump blood throughout your body. 15. When eating, please consider avoiding large meals and large portions. Smaller meals and portion sizes are better for blood circulation associated with digestion. General recommendation for heart health is the mediterranean style diet (https://health.[facility].o rg/skm-iry-uquwiy-a-mediterranean -diet/). Activity guidelines were established based on evidence-based research and expert recommendations outlined in: *Kareem mcadams al. 'Effects of exercise training on arterial-cardiac baroreflex function in POTS,' Clin [place] Res. 21:73-80, 2010 *Reji mcadams al. JACC. 2010;55:2858-68 *Merlin et al. The international POTS registry: Evaluating the efficacy of an exercise training intervention in a community setting. Heart Rhythm. 2016; 13:943-950 *Willian VINSON, Michelle Hatfield, Matti F, et al. Sinus Tachycardia: a Multidisciplinary Expert Focused Review. Circulation. Arrhythmia and electrophysiology. 2021;15(9):n720294. *Khari Louis et al. High Submaximal Exercise Heart Rate Impacts Exercise Intolerance in the Postural Orthostatic Tachycardia Syndrome. Journal of Cardiopulmonary Rehabilitation and Prevention. 2019; 1-7. DOI: 10.1097/HCR.1169013173396422 *Beto Nash, Khari HIGGINBOTHAM, Emeli FORRESTER, Willian VINSON. ST-segment changes during tilt table testing for postural tachycardia syndrome: correlation with exercise stress test results. Clinical autonomic research: official journal of the Clinical Autonomic Research Society. 2020;30:79-83. *Larissa HIGGINBOTHAM, Hilaria Lopez, Khari HIGGINBOTHAM, et al. Functional capacity and quality of life in the postural tachycardia syndrome: A retrospective cross-sectional study. Annals of Medicine and Surgery. 2020. https://doi.org/10.1016/j.amsu.20 .06.013 SUMMARY: Amie Braxton is a 29 year old FEMALE who was referred to the [facility] by Dr. Schafer because of POTS (ICD-10-CM, I49.8). Medical/surgical history also significant for: PAST MEDICAL HISTORY Diagnosis Date Asthma (HCC) Generalized anxiety disorder GERD (gastroesophageal reflux disease) Interstitial cystitis Laryngopharyngeal reflux (LPR) Migraines PCOS (polycystic ovarian syndrome) Postural orthostatic tachycardia syndrome POTS (postural orthostatic tachycardia syndrome) Tilt x2 ([facility], [facility]) Seasonal allergies Syncope Tachycardia Vocal cord dysfunction PAST SURGICAL HISTORY Procedure Laterality Date TONSILLECTOMY & ADENOIDECTOMY <AGE 14 Amie Braxton reports no regular recent history of formal structured aerobic exercise. Results from Amie Braxton's graded exercise test suggest they provided an adequate effort and demonstrate an estimated end-exercise METS in the lower 30th percentile for age and sex. Discussed in detail the benefits of regular exercise, options for exercise, and strategies to achieve long-term adherence to this program aimed at symptom management. Amie Braxton was instructed on monitoring target heart rate ranges and to use the RPE scale to guide intensity/progression of exercise. Amie Braxton is very eager to engage in aforementioned exercise recommendations for symptom management. Individualized exercise guidelines for symptom management were developed based on Amie Braxton's graded exercise test results, interests and goals, and comorbidities. FOLLOW UP: *Continue routine follow up with your referring provider, Dr. Schafer, for ongoing/additional discussions regarding other aspects of your symptom management plan. *As needed, annual in-office visit to [facility]. This should include exercise stress testing and updates to the exercise prescription. Thank you for your visit with us today in [facility]. Aaron Crow, PhD CHIEF COMPLAINT Amie Braxton is a 29 year old White female seen today. Patient presents with: Exercise Prescription : POTS Patient presents today for exercise evaluation, prescription and recommendations. PHYSICAL EXAMINATION BP 90/58 (BP Site: Right Arm, BP Position: Sitting, BP Cuff Size: Small Adult) Pulse 72 Wt 47.6 kg (105 lb) LMP 02/19/2025 (Exact Date) BMI 20.51 kg/m Heart sounds: S1/S2, RRR, no murmurs Lung sounds: CTA bilaterally. Extremities: No significant edema. ASSESSMENT: ok to proceed with stress test for exercise guidelines Per Dr. Crow: I already communicated to Dr. Schafer the ST changes noted in the stress report PLAN The results of this assessment were discussed with the patient. We have mutually agreed upon the following plans and goals: Exercise and lifestyle guidance as above per highway landscape architect. I have reviewed the documentation obtained and documented by the EP and have reviewed and updated the problem list as appropriate. I have personally performed a face to face assessment of the patient and have personally participated in the betancur components. I have discussed the case and management of the patient's care. -elevated PHQ-9, addressed with JEFFREY Grossman, patient has therapist and resources for mental health crisis line if needed Alba Roman APRN.HORSE SHOER PLAN The results of this assessment were discussed with the patient. We have mutually agreed upon the following plans and goals: Exercise guidelines as above Monitor response with chest strap heart rate monitor Log exercise Continue with other POTS management strategies as recommended by your physician Follow up as needed, in-person on an annual basis for exercise stress testing and discussion on updates to your exercise prescription. AMBULATORY PATIENT EDUCATION Topic: Exercise/symptom management Instruction Provided To: Patient Discipline: EP Instructed By: Aaron Crow, PhD Motivation to Learn: Eager Family/SO Support: High Cognitive Ability: Alert/Oriented Learning Preference: Individual Instructions Barriers: None Diagnosis: Primary Prevention Lifestyle Changes: Exercise Understanding: Verbalize Understanding Follow up: Complete Methods of Instruction: Verbal instruction and/or handouts. [1] Social History Tobacco Use Smoking status: Never Smokeless tobacco: Never Vaping Use Vaping status: Never Used Substance Use Topics Alcohol use: Never Drug use: Never documented in this encounter [facility] 03-20-2025 Note [facility] 03-20-2025 History of Present illness Narrative Episode Visit Count: 9 Therapist That Will Accept/Oversee The Plan Of Care: Kimi Dinero Start of Care Date: 07/19/24 Onset Date: 07/09/24 Plan of Care Certification Date: 02/13/25 Next Certification Due Date: 04/14/25 Patient Identified by Name and Date of : Yes REHABILITATION AND SPORTS THERAPY SPEECH THERAPY COGNITIVE LINGUISTIC TREATMENT NOTE IMPRESSION: Communication deficits identified: Cognitive-Linguistic deficits RECOMMENDATIONS: CRYOLITE RECOVERY OPERATOR Recommendations: Outpatient Speech Therapy Results and Recommendations Discussed With: Patient PLAN: Planned Treatment Interventions: Cognitive-Linguistic Training (87083, [id number], [id number]), Patient / Caregiver Education/ Training, Cognitive Skills Development ([id number], [id number]), Expressive Language Training ([id number], [id number]) Current Frequency: 1x every other week Duration: 4 weeks PLAN FOR NEXT VISIT: brain break strategies to reduce overstimulation, requesting breaks during tasks. SUBJECTIVE: Subjective: Amie reports no major changes since last visit. Yesterday was talking with sudden slurring of words, decreased vocal intensity, difficulty with word finding. She has had some similar episodes. Difficulty swallowing following this episode yesterday, this was a first with liquids. Along with these symptoms, felt dizzy and fatigued. Vitals were checked and good at the time, glucose was normal. She felt like her tongue was locked up. She reports increased brain fog recent. Sleep has not been consistent for the past approx 2 weeks getting 5-6 hours of sleep. For attention, she has been trialing distraction strategies discussed in previous session including carbiner clip on water bottle, tried fidget rings but they were too noisy. OBJECTIVE: MEASURES WITH LEVEL OF FUNCTION: Cognition Cognitive Status: Within Functional Limits For Current Session Except Attention Deficit: Alternating, Attention Deficit Comments Attention Deficit Comments: Complex auditory alternating and divded attention tasks evoked dizziness.Alternating attention task with 97% accuracy given 1 self correction. Divided attention task with 64% accuracy, pt reported dizziness and headache following divided attention task. TREATMENT: Speech/Language Therapy ([id number]): Skilled Intervention: Educated and instructed patient on compensatory strategies for managing cognitive overload/overstimulation during tasks that required increased attention or concentration including brain breaks. Provided verbal cues in attention tasks. Billing: Speech Treatment ([id number]) Skilled Treatment Time Minutes (timed and untimed codes): minutes Session Start Time : 1305 Session Stop Time : 1350 Total Session Time (minutes): 45 Kimi Dinero CCC-CRYOLITE RECOVERY OPERATOR documented in this encounter [facility] 03-19-2025 Note [facility] 03-19-2025 History of Present illness Narrative Images from the original note were not included. - I personally reviewed the above information as obtained by the nurse and confirmed the findings. Additional HPI: 29 year old female with a past medical history of: PAST MEDICAL HISTORY Diagnosis Date Asthma (HCC) Generalized anxiety disorder GERD (gastroesophageal reflux disease) Interstitial cystitis Laryngopharyngeal reflux (LPR) Migraines PCOS (polycystic ovarian syndrome) POTS (postural orthostatic tachycardia syndrome) Tilt x2 ([facility], [facility]) Seasonal allergies Syncope Tachycardia Vocal cord dysfunction PAST SURGICAL HISTORY Procedure Laterality Date TONSILLECTOMY & ADENOIDECTOMY <AGE 14 Initial History as taken on 08/30/2024: symptoms started end of 2019 after had COVID: head stuff with migraine headaches heart related stuff started around 2022 with tachypalpitations tachypalpitations worsened since February 2024 she denies taking fludrocortisone (florinef) since Tuesday she has been having worsened symptoms last dose of bisoprolol was Tuesday last week doesn't take regularly due to low blood pressure concerns feels worse after eating she is here with her boyfriend today Symptoms worsened with menstruation? has PCOS, so doesn't have frequent periods, currently spotting Currently ?: n. occupation: n Per Nursing Intake obtained 08/30/2024: Ms. Braxton is a 29 year old female who is seen today to establish care with a POTS specialist and to have her palpitations and possible SVT evaluated. She has a past medical history of asthma, migraines, distal esophageal spasms (CHUCK), PCOS, TLOC/near syncope, POTS, ?SVT, and palpitations. She has previously failed meclizine. Fludrocortisone has been ordered but not tried as of yet. She takes bisoprolol as needed but has not noticed any effect. In November 2022, she began having episodes of dizziness, lightheadedness, and brain fog. She then also began having migraines associated with visual snow. She had one near syncopal episode while driving in 2022. Her symptoms worsened significantly this past February. She reports several near syncopal episodes per day with HRs in the 150s/160s. Onset of symptoms is typically with HRs in the 120s. She endorses dizziness, lightheadedness, occasional visual changes, and nausea, with occasional L ear muffled hearing. She denies overt LOC. Episodes occur with positional changes and also while laying down. She also endorses brief palpitations unassociated with the near syncope that last about 2 beats followed by a burning sensation that begins in her chest, spreads throughout her whole body with L side > R side. She also gets short of breath with exertion and also at rest, and occasional BLE edema with prolonged standing. Episodes occur while seated or standing. Symptoms improve with closing eyes or laying down. Neuro work-up (brain MRI, EEG) was unremarkable. Results of a Tilt performed on 04/26/24 were consistent with POTS. She wore a 14-day Holter (04/04 - 04/18/24) which revealed predominant sinus rhythm with an avg HR of 80 bpm (min HR 52 bpm, max HR 164 bpm), 12.8% tachycardia burden, and 2.8% bradycardia burden, with rare PVC burden (<1.0%) of 3 disparate morphologies. There were 25 patient triggered events that did not correlate to any arrhythmias. She had a normal exercise stress test in February [address] changes of no clinical significance. She reported chest tightness, dizziness, dyspnea, and fatigue, during the stress test. She achieved 8.7 METS with max HR of 166 bpm (86% MPHR, 194 bpm). She denies any recent chest pain, orthopnea, cough, PND, or syncope. FLUIDS/SPORTS>CAFFEINE>ALCOHOL>SA LT>COMPRESSION>EXERCISE She drinks 120 ounces of water per day and adds electrolytes to all her water (8,000 mg Na daily). She also drinks gatorade light. She doesn't drink any alcohol or caffeine. She salts her food. She did try thigh-high compression stockings but didn't notice any improvement. She reports significant exercise intolerance but she does go to PT once a week. Prior testing (including outside reports) has included: OSH vertica architect 04/04 - 04/18/24: TILT TABLE TEST 04/26/24: * FINAL IMPRESSIONS * - The test was completed per protocol at 30 minutes of 70 degree tilt. - Systolic blood pressures remained stable from 113 mmHg at start to 120 mmHg at end of tilt. - Diastolic blood pressures remained stable from 73 mmHg at start to 90 mmHg at end of tilt. - Blood pressure upon return to supine position was 125/62 mmHg. - Heart rates increased from 79 bpm at start to 119 bpm at end of tilt. - Heart rate upon return to supine position was 81 bpm. - ECGs showed: NO asystole was seen. - Patient signs/symptoms included: lightheadedness/dizziness, nausea, shortness of breath, chest pain. - Syncope/impending syncope was NOT induced. - Overall: The test is diagnostic for accentuated postural tachycardia with early rise in heart rate. The test is negative for syncope. OS EXERCISE STRESS TEST 03/06/24: NARRATIVE Stress ECG: Conclusion: The stress test had minor ST changes of no clinical significance. The stress test is normal. Stress Test: A Jonny protocol stress test was performed. Overall, the patient's exercise capacity was average for their age. The patient exercised for 7 min and 10 sec. Hemodynamics are adequate for diagnosis. Blood pressure demonstrated a blunted response and heart rate demonstrated a normal response to stress. The patient's heart rate recovery was normal. The patient reported chest pain, dizziness, dyspnea and fatigue during the stress test. Chest pain was characterized as tightness. Resting ECG: The ECG shows normal sinus rhythm. Resting ECG shows non-specific T waves. Resting ECG The ECG shows normal sinus rhythm. Resting ECG shows non-specific T waves. Stress Findings A Jonny protocol stress test was performed. Overall, the patient's exercise capacity was average for their age. The patient exercised for 7 min and 10 sec. Cherelle rating of perceived exertion was 17. Hemodynamics are adequate for diagnosis. Blood pressure demonstrated a blunted response and heart rate demonstrated a normal response to stress. The patient's heart rate recovery was normal. The patient reported chest pain prior to the stress test. Chest pain was characterized as tightness prior to the stress test. The patient reported chest pain, dizziness, dyspnea and fatigue during the stress test. Chest pain was characterized as tightness. Symptoms began prior to stress and persisted during recovery. The test was stopped because the patient experienced dizziness and dyspnea. Stress ECG There were no arrhythmias during stress. Non-significant (<1mm) upsloping ST depression was noted. There were no noted arrhythmias during recovery. There were no ST changes during recovery. Conclusion: The stress test had minor ST changes of no clinical significance. The stress test is normal. OS ECHO/TTE 02/29/24: NARRATIVE Left Ventricle: Left ventricle size is normal. Normal wall thickness. Normal left ventricular systolic function. EF by 2D Simpsons Biplane is 57%. Normal wall motion. Normal diastolic function. Right Ventricle: Right ventricle size is normal. Normal systolic function. No significant valvular abnormalities. OSH TILT STUDY PER TILT 12-LEAD PROTOCOL 05/05/23: * FINAL IMPRESSIONS * - The test was completed per protocol at 30 minutes of 70 degree tilt. - Systolic blood pressures remained stable from 115 mmHg at start to 109 mmHg at end of tilt. - Diastolic blood pressures remained stable from 74 mmHg at start to 70 mmHg at end of tilt. - Blood pressure upon return to supine position was 108/71 mmHg. - Heart rates increased from 81 bpm at start to 103 bpm at end of tilt, with a peak heart rate of 111 bpm during tilt. - Heart rate upon return to supine position was 88 bpm. - ECGs showed: NO asystole was seen. - Patient signs/symptoms included: dizziness. - Overall: The test is diagnostic for accentuated postural tachycardia. The test is negative for syncope. FINDINGS: The baseline ECG showed sinus rhythm rate of [address] segment changes, otherwise unremarkable. The patient underwent standard 90-degree head up tilt table study, as described above. 1. The test is negative for orthostatic hypotension. 2. The test is negative for vasomotor/neurocardiogenic syncope. 3. The test is negative for cardiac dysrhythmias. 4. Nitroglycerin challenge was not performed. 5. Carotid massage was not performed. IMPRESSION: Negative study. My note: there were 2 interpretations for the same Tilt Table Test 05/05/[address] [facility] coronary CTA 06/2024 IMPRESSION: - NO EVIDENCE OF ATHEROSCLEROTIC CHANGES OR LUMINAL STENOSIS OF THE CORONARY ARTERIES - CAD-RADS 0: No plaque or luminal stenosis. Absence of CAD. - Overall Plaque [place]: No evidence of plaque - LV EF = 73 %; LV EDV 76 ml. QSART 10/2024: QSART responses at the Left forearm, proximal leg, distal leg, and foot are normal. There is no evidence of a significant postganglionic sympathetic sudomotor abnormality like that seen in autonomic or small fiber neuropathy Autonomic Reflex Testing 11/2024: Heart rate response to deep breathing is normal via the mean heart rate range (MHRR) and the E:I ratio. Heart rate response to the Valsalva maneuver can not be assessed due to incomplete or sub-optimal effort. Tilt portion of the test was not performed as per referring physician's request. This is an undiagnostic cardiovascular autonomic test panel without tilt. A cardiovascular adrenergic assessment can not be completed due to sub-optimal effort during the valsalva maneuver. There is no evidence of a significant cardiovagal abnormality. [facility] 10/2024: Enrollment Dates: 10/16/2024-10/30/2024 IRHYTHM FINDINGS: Patient had a min HR of 50 bpm, max HR of 148 bpm, and avg HR of 72 bpm. Predominant underlying rhythm was Sinus Rhythm. Slight P wave morphology changes were noted. Isolated SVEs were rare (<1.0%), and no SVE Couplets or SVE Triplets were present. Isolated VEs were rare (<1.0%), and no VE Couplets or VE Triplets were present. TTE 08/2024: CONCLUSIONS: - Exam indication: Palpitations - The left ventricle is normal in size. Left ventricular systolic function is normal. EF = 65 5% (2D biplane) Normal left ventricular diastolic function. - The right ventricle is normal in size. Right ventricular systolic function is normal. - There are no significant valvular abnormalities. - Estimated right ventricular systolic pressure is not reported due to an insufficient tricuspid regurgitation signal. Estimated right atrial pressure is 3 mmHg based on IVC assessment. - The patient has not had a prior CC echocardiographic exam for comparison. Interval History as taken today 03/19/2025 : The patient presents today for a follow up visit. The patient's boyfriend is present for the appointment today. Ht 152.4 cm (5') Wt 47.6 kg (105 lb) LMP 02/19/2025 (Exact Date) BMI 20.51 kg/m BP w/Orthostatic Vitals Date and Time Orthostatic BP Orthostatic Pulse BP Pulse BP Position BP Site BP Cuff Size 03/19/25 1045 105/66 75 -- -- Standing Left Arm Regular Adult 03/19/25 1043 108/63 68 -- -- Sitting Left Arm Regular Adult 03/19/25 1041 94/57 67 -- -- Supine Left Arm Regular Adult General/Constitutional: no acute distress, well appearing Psych: alert and oriented Skin: intact Eyes: EOMI ENT: adequate neck movement Cardiovascular: regular, normal S1 and S2 without S3 or S4, no significant murmurs, no significant lower extremity edema, no carotid bruit Resp: lungs generally clear to auscultation bilaterally, lungs with equal air entry bilaterally Neuro: no obvious focal motor deficits Musculoskeletal: normal musculature Lab Results Component Value Date/Time HB 13.6 01/28/2025 10:08 AM HB 15.5 10/06/2024 02:36 AM K 3.9 01/28/2025 10:08 AM K 3.7 10/06/2024 02:36 AM CREAT 0.76 01/28/2025 10:08 AM CREAT 0.69 10/06/2024 02:36 AM CREAT 0.59 10/05/2024 03:21 AM MG 2.0 01/28/2025 10:08 AM MG 2.3 10/01/2024 08:09 PM TSH 2.679 10/01/2024 08:09 PM TSH 1.510 08/31/2024 03:55 PM ECG 03/19/2025 : sinus, nonspecific T-wave abnormality Vent. rate 65 BPM GA interval 134 ms QRS duration 94 ms QT/QTcB 410/426 ms Assessment and Recommendations #. Sinus tachycardia. On prior (initial) visit 08/30/2024: The differential diagnosis for sinus tachycardia includes secondary sinus tachycardia vs Inappropriate Sinus Tachycardia (IST) vs Postural Tachycardia Syndrome (POTS). Her heart rates while supine today are 140 bpm on ECG (sinus tachycardia), 126 bpm on orthostatic vitals, raising the concern for secondary sinus tachycardia vs Inappropriate Sinus Tachycardia (IST). Of note, these supine heart rates are significantly faster than the supine heart rates on the OSH Tilt Table Test in 2022 (81 bpm) and 2023 (79 bpm). Recommend that the patient's physicians continue to assess for and treat any underlying primary conditions that may result in a secondary sinus tachycardia. Her d-dimer levels were low recently on both 08/20/2024 and 08/24/2024. Hb level 08/24/2024 was normal at 15.4. Check labs today: plasma metanephrines and TSH/T3/T4. Given her allergies and asthma, advised she discuss with her Slag Motor Operator regarding possible Mast Cell Activation Syndrome (MCAS), Given her PCOS, advised she discuss with her Enterprise Data Architect regarding underlying hormonal concerns. Recommend follow up with PCP to assess for possible underlying infectious concerns. A 24hr Holter monitor will be requested to assess average heart rate, as well as heart rhythm. An Echocardiogram will be requested to assess for structural abnormalities. If other evaluations are unrevealing, then can consider Autonomic Function testing. Discussed the possible benefit of ivabradine for heart rate slowing and she agrees; will start at 2.5 mg BID. Today 03/19/2025: She reports she had flashes of light when she took the 5 mg dose of ivabradine, but is tolerating the 2.5 mg BID well. She continues on metoprolol 12.5 mg BID, with lower blood pressures with higher dosing in the hospital. We discussed the possible benefit of cardiac rehabilitation / structured exercise using an individualized protocol for POTS and the patient agrees; a referral was sent. The [facility] Cardiac Rehab department has extensive experience in helping patients ease into and progress with exercise even in the setting of significant, often debilitating, conditions such as POTS. This Cardiac Rehab exercise program uses an individualized protocol which takes into account both heart rate limitation and rating of perceived exertion (RPE) limitation to guide exercise in order to avoid a post-exercise / post-exertion crash or malaise seen with over-exertion. Advised caution during showers, and consider shorter and cooler showers and use of a shower chair. Follow up with Autonomic Neurology as scheduled. The following are also recommended: -Sit down or lie down when symptomatic -Caution with assuming upright position (especially at night), with use of the toilet, and with showering. -Avoid dehydration -Adequate fluid hydration -Consider using a Home Medical Alert System / Personal Emergency Response System -Avoid activities that may be hazardous to yourself or others in the context of active episodes loss of consciousness or near loss of consciousness. -Local / state laws should be followed regarding driving. Otherwise, general recommendations include: -No private driving if symptoms occur while driving -No private driving for 1 month following an episode of syncope. [ACC/AHA Syncope Guidelines 2017. PMID [id number]] -If syncope is frequent (more than 6 episodes in 1 year), then no private driving until symptoms are controlled. [ACC/AHA Syncope Guidelines 2017. PMID [id number]] -For professional or commercial driving, driving recommendations may differ depending upon company or governmental regulations. Yuan Schafer MD, RS, FAHA, FACC Director of the Syncope [facility] Cardiac Electrophysiology [facility] The Nurses and Nurse Practitioners at [facility] are integral to your care. -*Test results will be available on [employer].* -For brief questions regarding the test results, please send a [employer] message or call the office ([phone]), and a Nurse will be in contact. -If you would prefer more extensive discussions of the test results and recommendations, you can request a follow up visit (which can be a Virtual Visit if you prefer). A copy of this note will be made available to your referring or primary physician. As a national referral center for syncope and related conditions seeing patients from across the country, we depend upon the involvement of your primary care physician for long-term, ongoing care. Notably, the ongoing management and follow-up of conditions such as Inappropriate Sinus Tachycardia (IST), Postural Tachycardia Syndrome (POTS), and other conditions of orthostatic intolerance involves your primary care physician. Therefore, please contact your primary care physician to process any needed documentation (such as work forms, disability forms, etc.). Please note, pre-operative cardiac risk evaluation is not a service we provide. Tests or evaluations performed here can be made available upon request. Thank you for your visit today. Our hope is to be able to provide you with further appropriate evaluation of your symptoms to arrive at a diagnosis, and to provide guidance for you and your primary physician as you continue to work together for your ongoing care. Our hope is to help guide you towards the best of health. Images from the original note were not included. [facility] Department of Cardiovascular Medicine SECTION OF CARDIAC PACING and ELECTROPHYSIOLOGY OUTPATIENT VISIT DATE March 19, 2025 PRIMARY CARE PHYSICIAN: Daniel Guerrero [address] [facility], [address] [place] [address] NURSING INTAKE HISTORY: Ms. Braxton is a 29 year old female who is seen today for follow up visit. She has a history of asthma, migraines, distal esophageal spasms (CHUCK), PCOS, TLOC/near syncope, POTS, ?SVT, and palpitations. She has previously failed meclizine. Fludrocortisone has been ordered but not tried as of yet. She takes bisoprolol as needed. She was last seen in office August 2024. In September, she had hospitalization with noted symptomatic tachycardia. She was started on metoprolol tartrate. EP was consulted with recommendation to increase ivabradine to TID. This was later decreased back to BID to mitigate visual side effects. She wore a base cloth inspector in October that did not show any sustained arrhythmias, symptoms correlating to NSR. She reports improvement with current dose of ivabradine and metoprolol, especially with heart rate. She reports drinking 120-160 ounces of water per day, with electrolyte supplementation. She adds salt to her food. She exercises currently by walking. She wears compression stockings regularly. PAST MEDICAL HISTORY Diagnosis Date Asthma (HCC) Generalized anxiety disorder GERD (gastroesophageal reflux disease) Interstitial cystitis Laryngopharyngeal reflux (LPR) Migraines PCOS (polycystic ovarian syndrome) POTS (postural orthostatic tachycardia syndrome) Tilt x2 ([facility], [facility]) Seasonal allergies Syncope Tachycardia Vocal cord dysfunction PAST SURGICAL HISTORY Procedure Laterality Date TONSILLECTOMY & ADENOIDECTOMY <AGE 14 SOCIAL HISTORY SOCIAL HISTORY[1] FAMILY HISTORY Problem Relation Age of Onset other (palpitations) Mother stress No Known Problems Father No Known Problems Sister Skin Cancer Maternal Grandmother other (atrial fibrillation) Maternal Grandmother other (type 2 diabetes) Paternal Grandmother Lung Cancer Paternal Grandfather other (type 2 diabetes) Paternal Uncle ALLERGIES: ALLERGIES Allergen Reactions Beef Containing Pro* Intolerance migraines Migraines, upset stomach Beef Derived (Bovin* Hives Egg Derived GI Upset Vomiting even with ingredient of egg Milk Containing Pro* Intolerance, Hives Vomiting. Pineapple Hives, Swelling Hives, difficulty breathing Soy GI Upset vomiting Tree Nuts Other: See Comments Asthma flaring, difficulty breathing Vancomycin Analogues Hives MEDICATIONS: tinidazole (TINDAMAX) 500 mg tablet Take 2,000 mg by mouth one time only. levalbuterol tartrate HFA 45 mcg/actuation inhaler Inhale 2 puffs as instructed every 4 hours as needed for wheezing/shortness of breath. amitriptyline (ELAVIL) 50 mg tablet Take 1 tablet by mouth daily at bedtime. metFORMIN (GLUCOPHAGE) 500 mg tablet Take 1 tablet by mouth two times a day with meals. hydrOXYzine HCl (ATARAX) 10 mg tablet TAKE 2 TABLETS BY MOUTH EVERY 6 HOURS NEEDED FOR ANXIETY. metoprolol tartrate, short acting, (LOPRESSOR) 25 mg tablet Take 0.5 tablets by mouth two times a day. budesonide-formoterol (SYMBICORT) 160-4.5 mcg/actuation inhaler Inhale 2 puffs as instructed two times a day. ivabradine (CORLANOR) 5 mg tablet Take 1.5 tab by mouth twice a day (Patient taking differently: Take 2.5 mg by mouth two times a day. Take 0.5 tab by mouth twice a day) sertraline (ZOLOFT) 25 mg tablet Take 0.5 tablets by mouth once daily. (Patient taking differently: Take 25 mg by mouth once daily.) albuterol HFA (PROVENTIL HFA, VENTOLIN HFA) 90 mcg/actuation inhaler Inhale 1-2 puffs as instructed every 6 hours as needed for wheezing/shortness of breath. cetirizine (ZYRTEC) 10 mg tablet Take 1 tablet by mouth once daily for 7 days. omeprazole (PRILOSEC) 20 mg capsule Take 1 capsule by mouth two times a day. Norethindrone, Contraceptive, 0.35 mg tablet Take 1 tablet by mouth once daily. (Patient not taking: Reported on 03/14/2025) Ht 5' 0 (1.52m) Wt 105 lb (47.6kg) LMP 02/19/2025 BMI 20.51 kg/(m^2). [facility] Syncope [facility] Score Please estimate the frequency of the following symptoms: Never-0, Rare-1, Occasional-2, Frequent-3, Daily-4, Constant*-5 Symptoms Subtotal Syncope/Near Syncope Score 5 Dizziness/Lightheadedness Score 5 Exercise Intolerance Score 5 Headache Score 5 Sleep Problems Score 4 Total Frequency Score 24 *For syncope/near syncope multiple episodes daily Please estimate the severity of the following symptoms: None-0, Minimal-1, Mild-2, Moderate-3, Severe-4, Intolerable-5 Symptoms Subtotal Palpitations/Tachycardia Score 2 Fatigue Score 3 Brain Fog Score 3 Shortness of Breath Score 2 GI Symptoms Score* 3 Total Severity Score 13 *GI symptoms include nausea, bloating, diarrhea, constipation, poor appetite, abdominal pain, early satiety Total of Both Sections: 37 EKG 03/19/2025 reviewed: Olga Lidia Monitor 10/2024: Enrollment Dates: 10/16/2024-10/30/2024 IRHYTHM FINDINGS: Patient had a min HR of 50 bpm, max HR of 148 bpm, and avg HR of 72 bpm. Predominant underlying rhythm was Sinus Rhythm. Slight P wave morphology changes were noted. Isolated SVEs were rare (<1.0%), and no SVE Couplets or SVE Triplets were present. Isolated VEs were rare (<1.0%), and no VE Couplets or VE Triplets were present. TTE 08/2024: CONCLUSIONS: - Exam indication: Palpitations - The left ventricle is normal in size. Left ventricular systolic function is normal. EF = 65 5% (2D biplane) Normal left ventricular diastolic function. - The right ventricle is normal in size. Right ventricular systolic function is normal. - There are no significant valvular abnormalities. - Estimated right ventricular systolic pressure is not reported due to an insufficient tricuspid regurgitation signal. Estimated right atrial pressure is 3 mmHg based on IVC assessment. - The patient has not had a prior CC echocardiographic exam for comparison. Azeb Terry RN - [1] Social History Tobacco Use Smoking status: Never Smokeless tobacco: Never Vaping Use Vaping status: Never Used Substance Use Topics Alcohol use: Never Drug use: Never documented in this encounter [facility] 03-19-2025 Note [facility] 03-14-2025 Instructions Daniel Guerrero, - 03/14/2025 1:38 PM EDT We discussed your ongoing health concerns and management: - Postural Orthostatic Tachycardia Syndrome (POTS): - Your heart rate has been better controlled with the combination of Metoprolol (12.5 mg daily) and Ivabradine (1 pill split into half doses, taken twice daily). Continue this regimen as prescribed. - You have experienced fewer resting heart rate spikes, which is a positive improvement. - Maintaining your heart rate at the target level is the goal, whether through medication or lifestyle adjustments (diet, sleep, exercise, and nutrition). - Continue monitoring your symptoms and heart rate, especially during physical activity. - Insulin Resistance and Polycystic Ovary Syndrome (PCOS): - Continue taking Metformin 500 mg twice daily as prescribed. This may help with both insulin resistance and PCOS-related symptoms. - You are using a glucose monitor to track blood sugar levels and body signals, which has been helpful. Continue monitoring and adjusting your diet as needed. - Work with your dietitian to identify protein sources that work for you, such as chickpea-based products, seeds (сергей, flax, pumpkin), and cacao protein powder. Avoid pea protein, which has caused issues for you. - Amitriptyline Use: - You are currently taking 50 mg daily, which has been helpful for bladder symptoms and migraines. Continue this dose for now. - While it has not improved esophageal spasms, discuss with your GI doctor whether a dosage increase might provide additional relief. Note that higher doses may cause side effects like dry mouth. - Asthma: - Continue using Symbicort (2 puffs twice daily) as your controller inhaler. - You have not needed your albuterol rescue inhaler recently but may require it during the fall season or with increased physical activity. Keep it on hand as needed. - Esophageal Spasms and Digestive Symptoms: - You are still experiencing bloating and pain despite dietary changes. Continue working with your GI doctor and dietitian to identify triggers and solutions. - You recently took a one-time dose of Tinidazole as part of a parasitic cleanse recommended by your functional medicine provider. - Mental Health: - Continue taking Zoloft 25 mg daily, as it has been effective in helping regulate your nervous system. No dosage changes are needed at this time. - Atarax (20 mg every 6 hours as needed) has been used less frequently, which is a positive sign. Continue using it only as needed. - Control: - You are no longer taking progesterone due to nausea. Metformin is being used as an alternative to help manage PCOS symptoms. Be aware that you are not currently on prevention and could become . If you wish to discuss control options in the future, let us know. - Stomach Acid: - Continue taking Prilosec twice daily as prescribed. - Family History: - You noted a family history of type 2 diabetes (paternal grandmother and uncle) and atrial fibrillation (maternal grandmother). Your paternal grandfather from lung cancer in his 60s or 70s after smoking earlier in life. - Immunizations: - A pneumonia vaccine is recommended between now and age 50, and again after age 50. A flu shot is also recommended. These are available at pharmacies if you choose to get them. - Upcoming Appointments: - You have an EKG scheduled with Dr. Schafer on March 19 to assess your heart function while on your current medications. - You are starting with a personal shopper next week who has experience working with individuals with heart conditions, including POTS. Please continue with your current medications and lifestyle adjustments as discussed. Let us know if you experience any new or worsening symptoms. documented in this encounter [facility] 03-14-2025 History of Present illness Narrative Images from the original note were not included. [facility] [place] [address] [address] Dept: [phone] Dept Visit Date: March 14, 2025 Name: Amie Braxton Date of : 1995 MRN/E #: [id number] Recording using [employer] software for draft documentation of the visit was discussed with the patient/authorized collections representative; all questions welcomed and answered. Patient/authorized collections representative agreed to proceed Chief Complaint: Amie Braxton is a 29 year old female here for Patient presents with: Follow Up: 3 month follow up per pcp Subjective Amie Braxton is a 29-year-old female with a history of POTS, PCOS, asthma, and esophageal spasms, presenting for follow-up. She has a history of a breast mass, for which she underwent an ultrasound that was clear. She was educated about dense breast tissue in younger women and was informed that her tight muscles might be contributing to the sensation of lumps. She mentions that she changed her sleeping position due to discomfort from heartburn, which she believes may have caused strain in the breast area. She is attempting to adjust her sleeping position to alleviate this strain. She has graduated from physical therapy with her vestibular therapist and is now performing exercises at home. She reports mixed feelings about her progress, noting that her heart rate reached 115 bpm while walking on a treadmill at an incline, despite being on a beta-lela and ivabradine. She attributes this to her prolonged period of being bedridden and questions whether her current condition is the new normal for her POTS. She notes that her heart rate is better controlled with medication and that she has fewer episodes of tachycardia at rest compared to a few months ago. She also mentions that sertraline has helped stabilize her nervous system. Amie is currently taking amitriptyline, which she reports has not fully alleviated her esophageal spasms or symptoms of bloating and pain, despite multiple dietary changes. However, she wishes to continue the medication as it has been beneficial for her interstitial cystitis and migraines. She has recently started metformin for insulin resistance associated with PCOS and reports that it has been helpful. She describes her body as a bunch of puzzle pieces that she is trying to put together. She recalls a glucose tolerance test that made her feel very unwell, with symptoms including a severe headache, nausea, and vertigo. She also reports developing hives and rashes on her face and chest when her blood pressure and blood sugar are high. She is currently wearing a glucose monitor and working with a dietitian to manage her diet, focusing on alternative protein sources due to difficulties digesting meat. Her current medications include metoprolol 12.5 mg, ivabradine 1 pill split into half in the morning and half at night, sertraline 25 mg, and Atarax 20 mg every 6 hours as needed. She has not needed to use Atarax as frequently. She is no longer on progesterone due to nausea and is using metformin for both insulin resistance and control. She continues to take Prilosec twice a day for stomach acid and uses Symbicort for asthma management. She has not needed to use her levalbuterol inhaler recently but anticipates potential use with the upcoming fall season and her new exercise regimen with a personal shopper. She has a family history of palpitations in her mother, lung cancer in her paternal grandfather, and type 2 diabetes in her paternal grandmother and uncle. She also reports a history of esophageal and stomach issues in her father. She denies any changes in alcohol or smoking habits, noting that she experiences adverse reactions to both. She has no new allergies or surgeries to report. She has a scheduled EKG next week and is considering further discussions about her heart condition with her skin pass operator. She also mentions a potential follow-up test with her neurologist. Breast: (+) breast lump Cardiovascular: (+) palpitations Gastrointestinal: (+) abdominal bloating, (+) abdominal pain Musculoskeletal: (+) chest wall strain Skin: (+) facial and chest rash/hives Ears/Nose/Mouth/Throat: (+) right ear decreased hearing SOCIAL HISTORY[1] ALLERGIES Allergen Reactions Beef Containing Pro* Intolerance migraines Migraines, upset stomach Beef Derived (Bovin* Hives Egg Derived GI Upset Vomiting even with ingredient of egg Milk Containing Pro* Intolerance, Hives Vomiting. Pineapple Hives, Swelling Hives, difficulty breathing Soy GI Upset vomiting Tree Nuts Other: See Comments Asthma flaring, difficulty breathing Vancomycin Analogues Hives Current Outpatient Medications Medication Sig tinidazole (TINDAMAX) 500 mg tablet Take 2,000 mg by mouth one time only. levalbuterol tartrate HFA 45 mcg/actuation inhaler Inhale 2 puffs as instructed every 4 hours as needed for wheezing/shortness of breath. amitriptyline (ELAVIL) 50 mg tablet Take 1 tablet by mouth daily at bedtime. metFORMIN (GLUCOPHAGE) 500 mg tablet Take 1 tablet by mouth two times a day with meals. hydrOXYzine HCl (ATARAX) 10 mg tablet TAKE 2 TABLETS BY MOUTH EVERY 6 HOURS NEEDED FOR ANXIETY. metoprolol tartrate, short acting, (LOPRESSOR) 25 mg tablet Take 0.5 tablets by mouth two times a day. omeprazole (PRILOSEC) 20 mg capsule Take 1 capsule by mouth two times a day. budesonide-formoterol (SYMBICORT) 160-4.5 mcg/actuation inhaler Inhale 2 puffs as instructed two times a day. ivabradine (CORLANOR) 5 mg tablet Take 1.5 tab by mouth twice a day (Patient taking differently: Take 2.5 mg by mouth two times a day. Take 0.5 tab by mouth twice a day) sertraline (ZOLOFT) 25 mg tablet Take 0.5 tablets by mouth once daily. (Patient taking differently: Take 25 mg by mouth once daily.) albuterol HFA (PROVENTIL HFA, VENTOLIN HFA) 90 mcg/actuation inhaler Inhale 1-2 puffs as instructed every 6 hours as needed for wheezing/shortness of breath. Norethindrone, Contraceptive, 0.35 mg tablet Take 1 tablet by mouth once daily. (Patient not taking: Reported on 03/14/2025) No current facility-administered medications for this visit. Labs: - 2-hour glucose tolerance test: Elevated glucose levels consistent with insulin resistance - Hemoglobin A1c: Normal Imaging: - Breast Ultrasound: No abnormalities - Saline sonohystogram: Small uterine polyps identified In terms of Health Maintenance, we discussed: Hepatitis B Vaccine(1 of 3 - 19+ 3-dose series) Never done Pneumococcal Vaccine(1 of 2 - PCV) Never done HPV Vaccine(1 - 3-dose SCDM series) Never done Influenza Vaccine(1) due on 03/11/2025 Please see social determinants section of patients chart for updated social history. Previous office notes, Lab,imaging, and microbiology results reviewed. I have confirmed and edited as necessary the chief complaint, medications, past medical, family and social histories. Objective BP 106/70 Pulse 64 Wt 47.3 kg (104 lb 4.4 oz) LMP 02/19/2025 (Exact Date) SpO2 100% BMI 20.37 kg/m Last 3 Encounter BP Readings: Date: BP: 12/31/2024 101/51 12/24/2024 94/62 12/06/2024 94/60 Body mass index is 20.37 kg/m . Connected Home Monitoring Amie Braxton is sending patient-generated health data into their medical chart from a home device. Last 2 weeks of patient entered readings No data to display Physical Exam Vitals reviewed. Constitutional: General: She is not in acute distress. Appearance: Normal appearance. She is normal weight. She is not toxic-appearing. HENT: Head: Normocephalic and atraumatic. Right Ear: Tympanic membrane, ear canal and external ear normal. Left Ear: Tympanic membrane, ear canal and external ear normal. Ears: Comments: Subtle loss of cone of light reflex on R vs L Nose: Nose normal. No congestion. Mouth/Throat: Mouth: Mucous membranes are moist. Pharynx: Oropharynx is clear. No oropharyngeal exudate. Eyes: Conjunctiva/sclera: Conjunctivae normal. Cardiovascular: Rate and Rhythm: Normal rate and regular rhythm. Pulses: Normal pulses. Heart sounds: No murmur heard. No friction rub. No gallop. Pulmonary: Effort: Pulmonary effort is normal. Breath sounds: No wheezing, rhonchi or rales. Abdominal: Palpations: Abdomen is soft. Musculoskeletal: General: Normal range of motion. Cervical back: Normal range of motion. No tenderness. Right lower leg: No edema. Left lower leg: No edema. Lymphadenopathy: Cervical: No cervical adenopathy. Skin: General: Skin is warm. Capillary Refill: Capillary refill takes less than 2 seconds. Findings: No bruising or lesion. Neurological: Mental Status: She is alert and oriented to person, place, and time. Sensory: No sensory deficit. Motor: No weakness. Coordination: Coordination normal. Gait: Gait normal. Deep Tendon Reflexes: Reflexes normal. Psychiatric: Mood and Affect: Mood normal. Behavior: Behavior normal. Thought Content: Thought content normal. Judgment: Judgment normal. Plan and Recommendations: 1. Routine physical examination (Z00.00) Routine annual exam; no new concerns identified. - Reviewed allergies, surgical history, and family history. - Discussed immunizations, including pneumonia and flu shots; patient declined today. 2. PCOS (polycystic ovarian syndrome) (E28.2) 3. Insulin resistance (E88.819) Insulin resistance confirmed by abnormal 2-hour glucose tolerance test; A1c remains within normal range. Metformin initiated by endocrinology to address both insulin resistance and PCOS symptoms after progesterone was discontinued due to nausea. Currently wearing CGM. Will continue current therapy. - Continue metformin 500 mg BID as prescribed by endocrinology. - Continue dietary modifications in coordination with dietitian. - Advised patient that metformin is not a contraceptive; discussed risk and advised to consider alternative contraception if prevention is desired. 4. POTS (postural orthostatic tachycardia syndrome) (G90.A) Heart rate well-controlled on metoprolol 12.5 mg daily and ivabradine 1 tablet split BID; fewer resting tachycardia episodes. - Continue metoprolol 12.5 mg daily. - Continue ivabradine, 1 tablet split BID. - Continue Zoloft 25 mg daily. - Continue home vestibular therapy exercises. - Start with personal shopper next week. - Follow-up EKG with Dr. Schafer on March 19. 5. Esophageal spasm (K22.4) Persistent symptoms despite amitriptyline 50 mg nightly; no improvement in bloating and pain despite multiple dietary changes. - Continue amitriptyline 50 mg nightly. - Discussed potential for dose increase with GI specialist; advised to consider adjustments no more frequently than every 2 weeks to allow for COMPUTER OPERATIONS MANAGER adaptation. - Continue Prilosec BID. 6. Chronic interstitial cystitis (N30.10) Improvement in symptoms with amitriptyline 50 mg nightly. - Continue amitriptyline 50 mg nightly. 7. Family history of diabetes mellitus (Z83.3) Continue monitoring 8. Family history of atrial fibrillation (Z82.49) Pt currently with POTS. Will continue surveillance. We discussed your ongoing health concerns and management: - Postural Orthostatic Tachycardia Syndrome (POTS): - Your heart rate has been better controlled with the combination of Metoprolol (12.5 mg daily) and Ivabradine (1 pill split into half doses, taken twice daily). Continue this regimen as prescribed. - You have experienced fewer resting heart rate spikes, which is a positive improvement. - Maintaining your heart rate at the target level is the goal, whether through medication or lifestyle adjustments (diet, sleep, exercise, and nutrition). - Continue monitoring your symptoms and heart rate, especially during physical activity. - Insulin Resistance and Polycystic Ovary Syndrome (PCOS): - Continue taking Metformin 500 mg twice daily as prescribed. This may help with both insulin resistance and PCOS-related symptoms. - You are using a glucose monitor to track blood sugar levels and body signals, which has been helpful. Continue monitoring and adjusting your diet as needed. - Work with your dietitian to identify protein sources that work for you, such as chickpea-based products, seeds (сергей, flax, pumpkin), and cacao protein powder. Avoid pea protein, which has caused issues for you. - Amitriptyline Use: - You are currently taking 50 mg daily, which has been helpful for bladder symptoms and migraines. Continue this dose for now. - While it has not improved esophageal spasms, discuss with your GI doctor whether a dosage increase might provide additional relief. Note that higher doses may cause side effects like dry mouth. - Asthma: - Continue using Symbicort (2 puffs twice daily) as your controller inhaler. - You have not needed your albuterol rescue inhaler recently but may require it during the fall season or with increased physical activity. Keep it on hand as needed. - Esophageal Spasms and Digestive Symptoms: - You are still experiencing bloating and pain despite dietary changes. Continue working with your GI doctor and dietitian to identify triggers and solutions. - You recently took a one-time dose of Tinidazole as part of a parasitic cleanse recommended by your functional medicine provider. - Mental Health: - Continue taking Zoloft 25 mg daily, as it has been effective in helping regulate your nervous system. No dosage changes are needed at this time. - Atarax (20 mg every 6 hours as needed) has been used less frequently, which is a positive sign. Continue using it only as needed. - Control: - You are no longer taking progesterone due to nausea. Metformin is being used as an alternative to help manage PCOS symptoms. Be aware that you are not currently on prevention and could become . If you wish to discuss control options in the future, let us know. - Stomach Acid: - Continue taking Prilosec twice daily as prescribed. - Family History: - You noted a family history of type 2 diabetes (paternal grandmother and uncle) and atrial fibrillation (maternal grandmother). Your paternal grandfather from lung cancer in his 60s or 70s after smoking earlier in life. - Immunizations: - A pneumonia vaccine is recommended between now and age 50, and again after age 50. A flu shot is also recommended. These are available at pharmacies if you choose to get them. - Upcoming Appointments: - You have an EKG scheduled with Dr. Schafer on March 19 to assess your heart function while on your current medications. - You are starting with a personal shopper next week who has experience working with individuals with heart conditions, including POTS. Please continue with your current medications and lifestyle adjustments as discussed. Let us know if you experience any new or worsening symptoms. Discussed the above with the patient using shared decision-making. The patient is in agreement with the diagnostic and treatment plans. Return in about 3 months (around 06/13/2025), or For check up on POTs (20 min visit). I spent a total of 35 minutes on the date of the service which included preparing to see the patient, [id number] patient care, completing clinical documentation, obtaining and/or reviewing separately obtained history, performing a medically appropriate examination, counseling and educating the patient/family/caregiver, ordering medications, tests, or procedures, communicating with other HCPs (not separately reported), independently interpreting results (not separately reported), communicating results to the patient/family/caregiver, and care coordination (not separately reported). Provider: Daniel Guerrero DO [1] Social History Tobacco Use Smoking status: Never Smokeless tobacco: Never Vaping Use Vaping status: Never Used Substance Use Topics Alcohol use: Never Drug use: Never documented in this encounter [facility] 03-14-2025 Note [facility] 03-05-2025 History of Present illness Narrative Program_ID:[id number] Access Code: [email or web address] URL: [email or web address] Date: 03-05-2025 Prepared By: Laxmi Camargo Program Notes Exercises - 15 Minute Guided Meditation - 1 x daily - x weekly - sets - reps - Standing Shoulder Row with Anchored Resistance - 1 x daily - 7 x weekly - 3 sets - 10 reps - Sidelying Thoracic Rotation with Open Book - 1 x daily - 7 x weekly - 3 sets - 10 reps - Seated Heel Raise - 1 x daily - 7 x weekly - 3 sets - 10 reps - Seated March - 1 x daily - 7 x weekly - 3 sets - 10 reps - Seated Long Arc Quad - 1 x daily - 7 x weekly - 3 sets - 10 reps - Bug - 1 x daily - 3-4 x weekly - 3 sets - 10 reps - Supine Bridge with Resistance Band - 1 x daily - 3-4 x weekly - 3 sets - 10 reps - Supine Straight-Leg Raise With Resistance at Ankles - 1 x daily - 3-4 x weekly - 3 sets - 10 reps Images from the original note were not included. Episode Visit Count: 8 Therapist That Will Accept/Oversee The Plan Of Care: Laxmi Camargo Start of Care Date: 08/06/24 Onset Date: 07/11/24 (near the end 2019- chronic dizziness) Plan of Care Certification Date: 03/05/25 Next Certification Due Date: 03/05/25 REHABILITATION AND SPORTS THERAPY PHYSICAL THERAPY PROGRESS REPORT PLAN OF CARE UPDATE: Assessment: Amie Braxton demonstrates improvement in functional activity. The patient has progressed toward goals. Patient continues to present with impairments in symptom management that interfere with . Current prognosis is Good due to: current objective clinical presentation, Prognosis may be limited due to multiple co- morbidities . Patient doing well with progression on exercises and increase in ADLs. Patient advised to continue progressions independently and to reach out if there are any questions. The patient will benefit from continued skilled therapy services to meet the updated goals for this plan of care as noted below. Goals for Episode of Care: established 08/06/24 Updated 03/05/2025 Patient will be able to correct postural deviations independently in order to allow for normal mechanics, to decrease current pain and prevent future recurrence. NOT MET Patient will be able to decrease pain to <3/10 at rest and with functional activities. NOT MET Patient will perform Romberg stance on compliant surface for 30 seconds without LOB. MET Patient will demonstrate normal active cervical spine range of motion to restore posture and complete ADLS with trace report of dizziness/imbalance. MET Patient will be independent with home exercise program and progression. ONGOING Patient will return to prior level of function with all activities of daily living with trace reports of dizziness. PROGRESSING Patient will be able to walk household and community distances with safe, functional gait pattern with trace report of dizziness/imbalance. PROGRESSING Patient will demonstrate the ability to complete VOR in static and dynamic positions with trace report of dizziness. MET Patient Goals: to have more stability PROGRESSED Time Frame for Goals and Treatment : 03/05/25 Planned Interventions, Frequency, and Duration: 1 visit, 1 visit Patient to be seen for Therapeutic exercise (18460), Neuromuscular re-education (59945), Manual therapy (49686), Therapeutic activities (70008), Gait Training (88401), General Conditioning, Canalith Repositioning Maneuvers (61045) PLAN FOR NEXT VISIT: on hold SUBJECTIVE: Reports that everything is still the same, bt she has been able to increase her physical activity. Dizziness and lightheadedness is still there consistently. Also has recently started driving. Vestibular Dizziness: Yes Description: light headed Rating of current symptoms: 5/10 Frequency: Intermittent Headache: Yes Description: pressure Rating of current symptoms: 3/10 Location: frontal region Frequency: Intermittent Pain: Pain Pain Level: 0 Post Treatment Pain Post Treatment Pain Level: No Change PROMIS Scales 03/05/2025 02/13/2025 11/02/2024 Higher is Better Self-Eff Symptom - T Score 41 (Average) 43 (Average) Self-Eff Symptom - Percentile 18 24 Communication - Score 50 (Normal) Proxy-reported T-Score and Percentile Interpretation T-scores: mean of general population = 50. 5 points is clinically meaningfully difference Percentiles provide an indication of how the patient's score ranks in relation to the general population. Higher percentile rankings indicate better function/quality of life. 50th percentile is the average of the general population and indicates half of respondents had a worse score. OBJECTIVE MEASURES WITH LEVEL OF FUNCTION: Posture / Alignment Posture: Good Vitals Pulse: 70 Target HRR and HR Max Calculator: Yes Max Heart Rate: 189 Beta Blockers: Yes 60% HRR: 131 85% HRR: 161 Vitals response to exercise: Yes Peak HR Achieved : 109 Peak RPE Achieved (1-10): 4 TREATMENT: Therapeutic Exercise: 1: Treadmill x 11 minutes with 1 minute warm-up and 1 minute cool down while monitoring symptoms 2: weighted bridge with 5 pb dumbells in each hand 15 x 3 3: bodyweight squats x 10 4: Education on contiued progression of exercises and aerobics, hydration with electrolytes, and slowly progressing activity while paying attention to symptoms when needed. Skilled Intervention: Patient was educated in proper exercise technique and purpose for exercises. Patient education as noted. Billing Therapeutic Exercise Treatment Minutes: 38 Skilled Treatment Time Minutes (timed and untimed codes): 38 Total Session Time (minutes): 38 Session Start Time : 1502 Session Stop Time : 1540 Laxmi Camargo PT, DPT documented in this encounter [facility] 03-05-2025 Note [facility] 02-27-2025 Instructions Wes Chin [facility] ED - 02/27/2025 12:36 PM EDT February 27, 2025 Dear Amie Braxton, We attempted to reach you by phone for your virtual visit today, but were unable to connect. If you would like to reschedule your visit, please call [phone] option 1. Schedulers are available seven days a week, 7:00 AM- 7:00 PM. We appreciate you choosing [facility] for your healthcare. Best in health. Sincerely, Your Care Team [facility] documented in this encounter [facility] 02-27-2025 History of Present illness Narrative Patient did not attend appointment. Sent text/email reminder. documented in this encounter [facility] 02-27-2025 Note HNO ID: [id number] Author: WES CHIN [facility] Service: ? Author Type: Health Educator Type: Progress Notes Filed: 02/27/2025 12:44 Note Text: Patient did not attend appointment. Sent text/email reminder. [facility] 02-26-2025 Evaluation note Diagnosis Onset Date Resolution Abdominal pain acute February 8:08am Bloating acute February 26, 025 8:08am [facility] Services Work Phone: [phone] 749-746408-08-2025 Telephone encounter Note* Telephone Encounter - Tawny Daigle - 02/15/2025 9:12 AM EDT Calling to schedule ov V/m full Try later Tawny Daigle February 15, 2025 9:13 AM [facility]08-08-2025 Miscellaneous Notes* Telephone Encounter - Tawny Daigle - 02/15/2025 9:12 AM EDT Calling to schedule ov V/m full Try later Tawny Daigle February 15, 2025 9:13 AM * Telephone Encounter - Aliza Boyd MD - 02/12/2025 1:50 PM EDT Please schedule follow-up appointment in 6 months [facility] Telephone encounter Note* Telephone Encounter - Aliza Boyd MD - 02/12/2025 1:50 PM EDT Please schedule follow-up appointment in 6 months [facility]08-05-2025 [facility]08-04-2025 Telephone encounter Note* Telephone Encounter - Marquita Newberry - 02/11/2025 3:34 PM EDT Lvm for patient [facility]08-04-2025 Telephone encounter Note* Telephone Encounter - Marquita Newberry - 02/11/2025 3:34 PM EDT ----- Message from Kimi Dinero CCC-CRYOLITE RECOVERY OPERATOR sent at 02/11/2025 3:14 PM EDT ----- Regarding: ST Neuro Good afternoon, This patient's physician placed order for modified barium swallow and esophagram (to be completed same day). Can you call patient to schedule? Thank you, Kimi Dinero M.A., [facility]-CRYOLITE RECOVERY OPERATOR Speech Language Pathologist [facility]08-04-2025 Miscellaneous Notes* Telephone Encounter - Marquita Newberry - 02/11/2025 3:34 PM EDT Lvm for patient * Telephone Encounter - Marquita Newberry - 02/11/2025 3:34 PM EDT ----- Message from Kimi Dinero CCC-CRYOLITE RECOVERY OPERATOR sent at 02/11/2025 3:14 PM EDT ----- Regarding: ST afternoon, This patient's physician placed order for modified barium swallow and esophagram (to be completed same day). Can you call patient to schedule? Thank you, Kimi Dinero M.A., [facility]-CRYOLITE RECOVERY OPERATOR Speech Language Pathologist documented in this encounterK[facility]08-04-2025 Telephone encounter Note * Telephone Encounter - Anastasiya Mercado - 02/11/2025 1:34 PM EDT LVM #1 to schedule pt for 4 month follow up. Anastasiya Mercado February 11, 2025 1:35 PM [facility]08-04-2025 Miscellaneous Notes* Telephone Encounter - Anastasiya Mercado - 02/11/2025 1:34 PM EDT LVM #1 to schedule pt for 4 month follow up. Anastasiya Mercado February 11, 2025 1:35 PM documented in this encounterK[facility]07-17-2025 [facility]07-17-2025 History of Present illness Narrative* Aliza Boyd MD - 01/24/2025 8:29 AM EDT PCP: Daniel Guerrero DO. Subjective The history is provided by the patient. This is a virtual visit using [employer] Video Visit. It required patient- provider interaction for the medical decision making as documented below. Patient identity was verified and patient consented to this visit I have communicated my name and active licensure. The patient's identity and physical location wereverified at the time of this visit. Either the patient or their legal collections representative has been informed of the risks and benefits of -- and alternatives to -- treatment through a remote evaluation andconsents to proceed with the evaluation remotely. Amie Braxton is a 29 year old White female with PMHx of POTS, anxiety, and fibromyalgia who presented to the endocrine clinic for PCOS evaluation and management History of present illness Initial History: (07/18/24) The patient reports irregular menses since menarche at the age of 15, with approximately two light cycles per year. Her last menstrual period was about four months ago. She has no history of previouspregnancies and has tried oral contraceptives multiple times but was intolerant to them. Current symptoms include fatigue, brain fog, headaches, and pelvic floor dysfunction. She has excess hair on her upper limbs and upper abdomen, though facial hair, which she plucks daily, is not bothersome. Sheexperiences intermittent acne but has no progressive hair loss or nipple discharge. The patient hasa family history of PCOS, including her sister and cousins, but no family history of adrenal disorde rs. Interval History (Today's visit): The patient is here for routine follow-up No change in her symptoms since last visit. She takes progesterone only pills and notes more regular cycles every 3-4 weeks. No change in facial hair or weight. HISTORY REVIEWED (electronic chart updated): PAST MEDICAL HISTORY Diagnosis Date Asthma (HCC) Generalized anxiety disorder GERD (gastroesophageal reflux disease) Interstitial cystitis Laryngopharyngeal reflux (LPR) Migraines PCOS (polycystic ovarian syndrome) POTS (postural orthostatic tachycardia syndrome) Tilt x2 ([facility], [facility]) Seasonal allergies Syncope Tachycardia Vocal cord dysfunction PAST SURGICAL HISTORY Procedure Laterality Date TONSILLECTOMY & ADENOIDECTOMY <AGE 14 FAMILY HISTORY Problem Relation Age of Onset other (palpitations) Mother stress No Known Problems Father No Known Problems Sister Skin Cancer Maternal Grandmother Diabetes Paternal Grandmother Social History Tobacco Use Smoking status: Never Smokeless tobacco: Never Vaping Use Vaping status: Never Used Substance Use Topics Alcohol use: Never Drug use: Never Current Outpatient Medications Medication Sig Dispense Refill hydrOXYzine HCl (ATARAX) 10 mg tablet TAKE 2 TABLETS BY MOUTH EVERY 6 HOURS NEEDED FOR ANXIETY. 180 tablet 1 metoprolol tartrate, short acting, (LOPRESSOR) 25 mg tablet Take 0.5 tablets by mouth two times a day. 90 tablet 3 amitriptyline (ELAVIL) 25 mg tablet Take 1 tablet by mouth daily at bedtime. 90 tablet 3 omeprazole (PRILOSEC) 20 mg capsule Take 1 capsule by mouth two times a day. 180 capsule 1 budesonide-formoterol (SYMBICORT) 160-4.5 mcg/actuation inhaler Inhale 2 puffs as instructed two times a day. Norethindrone, Contraceptive, 0.35 mg tablet Take 1 tablet by mouth once daily. 84 tablet 3 ivabradine (CORLANOR) 5 mg tablet Take 1.5 tab by mouth twice a day sertraline (ZOLOFT) 25 mg tablet Take 0.5 tablets by mouth once daily. 45 tablet 2 albuterol HFA (PROVENTIL HFA, VENTOLIN HFA) 90 mcg/actuation inhaler Inhale 1-2 puffs as instructedevery 6 hours as needed for wheezing/shortness of breath. No current facility-administered medications for this visit. Objective LMP 10/21/2024 Physical examination Physical Exam Constitutional: General: She is not in acute distress. Pulmonary: Effort: Pulmonary effort is normal. Neurological: General: No focal deficit present. Mental Status: She is alert. Psychiatric: Speech: Speech normal. Behavior: Behavior is cooperative. Labs and imaging data: Reviewed Latest Ref Rng 08/26/2023 Testosterone Free <0.13 - 1.06 ng/dL 2.39 (H) Testosterone 8 - 60 ng/dL 95 (H) LH See comment mIU/mL 20.8 DHEA-S 98.8 - 340.0 ug/dL 367.4 (H) FSH See comment mIU/mL 6.8 Prolactin 4.8 - 23.3 ng/mL 17.1 Estradiol 17B See comment pg/mL 46 Latest Ref Rng 07/26/2024 Protein, Total 6.3 - 8.0 g/dL 7.2 Albumin 3.9 - 4.9 g/dL 4.8 Calcium 8.5 - 10.2 mg/dL 9.5 Bilirubin, Total 0.2 - 1.3 mg/dL 0.3 Alkaline Phosphatase 34 - 123 U/L 79 AST 13 - 35 U/L 27 ALT 7 - 38 U/L 28 Glucose 74 - 99 mg/dL 72 (L) BUN 7 - 21 mg/dL 9 Creatinine 0.58 - 0.96 mg/dL 0.74 Sodium 136 - 144 mmol/L 138 Potassium 3.7 - 5.1 mmol/L 3.9 Chloride 98 - 107 mmol/L 100 CO2 22 - 30 mmol/L 27 Anion Gap 8 - 15 mmol/L 11 eGFR >=60 mL/min/1.73m 115 Hemoglobin A1C 4.3 - 5.6 % 4.7 Estimated Average Glucose mg/dL 88 Hydroxyprogesterone <=206.00 ng/dL 137.86 Pelvic ultrasound on 07/21/2022 1. Right ovary appears slightly enlarged. No focal mass. There are several small follicles of both ovaries which are nonspecific. The overall pattern and multiplicity is not characteristic for PCOS. RESULT: Uterus size: 7.2 x 3.6 x 2.7 cm -Orientation: Anteverted -Myometrium: Normal sonographic appearance. -Endometrial echo complex: 0.42 cm normal in appearance -Cervix: normal Right ovary: 6.1 x 2.8 x 2.8 cm Appears mildly enlarged. There are several small follicles. Arterial and venous flow is present throughout the ovary on color Doppler imaging with normal spectral waveforms. Left ovary: 4.8 x 2.1 x 2.6 cm There are several small follicles. Arterial and venous flow is present throughout the left ovary on color Doppler imaging with normal spectral waveforms. Pelvis free fluid: Previous medical records: Reviewed Assessment & Plan Assessment: Encounter Diagnosis ICD-10-CM 1. PCOS (polycystic ovarian syndrome) E28.2 GLUCOSE, 2 HOUR 2. Primary oligomenorrhea N91.3 Plan: The patient has PCOS based on clinical history, biochemical/clinical hyperandrogenism, and polycystic ovary morphology. Previously discussed the pathophysiology and manifestations of PCOS, emphasizing the risk of endometrial hyperplasia associated with oligomenorrhea, which appears to be the primary concern. Currentlymanaged by gynecology Explained that PCOS is often associated with mood, depression anxiety disorders, follow-up with psychology/psychiatry Since the patient was intolerant to multiple oral contraceptives No evidence of prediabetes based on A1c. Will proceed with glucose tolerance test, if abnormal, patient may benefit from metformin The patient does not find hirsutism bothersome, and antiandrogen therapy is not necessary at this time. Spironolactone use was discussed but is less favorable due to the patient s POTS. I discussed the plan of care with the patient in details including different treatment options and side effects of medications prescribed in this visit. Complications of untreated or uncontrolled disease were also discussed. Patient expressed understanding and agreement. Return if symptoms worsen or fail to improve. Aliza Boyd MD [facility] - [address], [address] [place] [address] This note was partially generated using [employer] voice recognition system, and there may be some incorrect words, spellings, and punctuation that were not intended as it appear in the note. documented in this encounterK[facility] History of Present illness Narrative* Karine Baxter RT(R) - 01/22/2025 1:00 PM EDT Radiology Service Progress Note PATIENT NAME: Amie Braxton DATE OF SERVICE: January 22, 2025 TIME: 1:29 PM PATIENT IDENTITY VERIFICATION COMPLETED USING TWO (2) IDENTIFIERS: Name and Date of confirmedby patient verbally. FALL SCREENING: Has the patient had 2 falls in the last year or 1 fall with injury or currently using an Ambulatory Assistive Device (Walker, Cane, Wheelchair, Crutches, etc.)? No PATIENT GENDER DATA: Assigned female at . status: : No status:NO. PATIENT RELEVANT IMPLANT DATA REVIEWED: Not Applicable PATIENT PRESENTS WITH AN IMPLANTABLE OR ATTACHED POLICE SERGEANT PRECINCT: No RADIOLOGY DEPARTMENT: Ultrasound PERIPHERAL IV DATA: Not applicable SIGNED BY: RT Gaby(R) January 22, 2025 1:29 PM documented in this encounterK[facility]07-15-2025 [facility]07-14-2025 Telephone encounter Note* Telephone Encounter - Idania Salas LPN - 01/21/2025 8:39 AM EDT Pharmacy BookitNow[employer]t message requesting the following refill Refill(s) Requested: Requested Prescriptions Pending Prescriptions Disp Refills hydrOXYzine HCl (ATARAX) 10 mg tablet [Pharmacy Med Name: HYDROXYZINE HCL 10 MG TABLET] 180 tablet 1 Sig: TAKE 2 TABLETS BY MOUTH EVERY 6 HOURS NEEDED FOR ANXIETY. ALLERGIES Allergen Reactions Beef Containing Pro* Intolerance migraines Migraines, upset stomach Beef Derived (Bovin* Hives Egg Derived GI Upset Vomiting even with ingredient of egg Milk Containing Pro* Intolerance, Hives Vomiting. Pineapple Hives, Swelling Hives, difficulty breathing Soy GI Upset vomiting Tree Nuts Other: See Comments Asthma flaring, difficulty breathing Vancomycin Analogues Hives (home) [phone] (cell) Last Office Visit Date: 12/06/2024 Last Distance Health Visit: Visit date not found Future Appointment: 03/14/2025 The patients preferred pharmacy has been captured for this encounter? yes Request is for script(s) to be escript to pharmacy. Idania Salas LPN [facility]07-14-2025 Miscellaneous Notes* Telephone Encounter - Idania Salas LPN - 01/21/2025 8:39 AM EDT Pharmacy Book[employer] message requesting the following refill Refill(s) Requested: Requested Prescriptions Pending Prescriptions Disp Refills hydrOXYzine HCl (ATARAX) 10 mg tablet [Pharmacy Med Name: HYDROXYZINE HCL 10 MG TABLET] 180 tablet 1 Sig: TAKE 2 TABLETS BY MOUTH EVERY 6 HOURS NEEDED FOR ANXIETY. ALLERGIES Allergen Reactions Beef Containing Pro* Intolerance migraines Migraines, upset stomach Beef Derived (Bovin* Hives Egg Derived GI Upset Vomiting even with ingredient of egg Milk Containing Pro* Intolerance, Hives Vomiting. Pineapple Hives, Swelling Hives, difficulty breathing Soy GI Upset vomiting Tree Nuts Other: See Comments Asthma flaring, difficulty breathing Vancomycin Analogues Hives (home) [phone] (cell) Last Office Visit Date: 12/06/2024 Last Distance Health Visit: Visit date not found Future Appointment: 03/14/2025 The patients preferred pharmacy has been captured for this encounter? yes Request is for script(s) to be escript to pharmacy. Idania Salas LPN documented in this encounterK[facility] History of Present illness Narrative* [facility]16[facility]25 1:50 PM EDT GROUP HEALTH RETAIL SEASONAL SPECIALIST COHORT VIRTUALVISITPN Patient was part of a group health health care coach session. Patient received education and participated in discussion about modifiable lifestyle factors and healthy habits, with emphasis on the role of the health health care coach within the functional medicine model and the Wheel of Wellness. Other topics of discussion included Functional Medicine process and scheduling for follow-up visitsand support prior to next visit. ................................................................................ ....................... FOLLOW UP: 30-Minute Consultation with Health Wheel Blocker within 1-2 weeks Time Spent with Patient: 30 minutes Signed by: [facility] documented in this encounterK[facility]07-09-2025 Instructions* Patient Instructions* [facility] - 01/16/2025 1:50 PM EDT GROUP HEALTH RETAIL SEASONAL SPECIALIST COHORT VIRTUALVISITPN Patient was part of a group health health care coach session. Patient received education and participated in discussion about modifiable lifestyle factors and healthy habits, with emphasis on the role of the health health care coach within the functional medicine model and the Wheel of Wellness. Other topics of discussion included Functional Medicine process and scheduling for follow-up visitsand support prior to next visit. ................................................................................ ....................... FOLLOW UP: 30-Minute Consultation with Health Wheel Blocker within 1-2 weeks Time Spent with Patient: 30 minutes Signed by: Wes Chin [facility] documented in this encounterK[facility]07-[facility]-2025 Telephone encounter Note * Telephone Encounter - Akil Alicea LPN - 01/16/2025 9:23 AM EDT Received by fax a note from [facility] stating that the patient needs a new script for [id number] tab, quantity 14, refills 3, take one tab po once daily for 10 days every 1-2 months. Akil Alicea LPN January 16, 2025 9:24 AM [facility]07-09-2025 Miscellaneous Notes* Telephone Encounter - Akil Alicea LPN - 01/16/2025 9:23 AM EDT Received by fax a note from [facility] stating that the patient needs a new script for [id number] tab, quantity 14, refills 3, take one tab po once daily for 10 days every 1-2 months. Akil Alicea LPN January 16, 2025 9:24 AM documented in this encounterK[facility]tering [facility]07-08-2025 History of Present illness Narrative* Laxmi Camargo, PT - 01/15/2025 2:10 PM EDT Program_ID:[id number] Access Code: [email or web address] URL: [email or web address] Date: 01-15-2025 Prepared By: Laxmi Camargo Program Notes Exercises - 15 Minute Guided Meditation - 1 x daily - x weekly - sets - reps - Standing Shoulder Row with Anchored Resistance - 1 x daily - 7 x weekly - 3 sets - 10 reps - Sidelying Thoracic Rotation with Open Book - 1 x daily - 7 x weekly - 3 sets - 10 reps - Seated Heel Raise - 1 x daily - 7 x weekly - 3 sets - 10 reps - Seated March - 1 x daily - 7 x weekly - 3 sets - 10 reps - Seated Long Arc Quad - 1 x daily - 7 x weekly - 3 sets - 10 reps - Bug - 1 x daily - 3-4 x weekly - 3 sets - 10 reps - Supine Bridge with Resistance Band - 1 x daily - 3-4 x weekly - 3 sets - 10 reps - Supine Straight-Leg Raise With Resistance at Ankles - 1 x daily - 3-4 x weekly - 3 sets - 10 reps * Laxmi Camargo, PT - 01/15/2025 1:43 PM EDT Episode Visit Count: 7 Therapist That Will Accept/Oversee The Plan Of Care: Laxmi Camargo Start of Care Date: 08/06/24 Onset Date: 07/11/24 (near the end 2019- chronic dizziness) Plan of Care Certification Date: 01/01/25 Next Certification Due Date: 02/26/25 REHABILITATION AND SPORTS THERAPY PHYSICAL THERAPY TREATMENT NOTE ASSESSMENT: Amie Braxton tolerated the session with no issues. She demonstrated some improvement in endurance and expected response of RPE and heart rate to exercise. Patient educated on the importance of aerobic activity and advised to continue with progression of exercises per the [facility] protocol for POTS to continue improvement in symptoms. The patient will continue to benefit from ongoing skilled physical therapy to progress toward set goals and for reassessment by supervising therapist. Current Frequency: 1x/month Duration: 8 weeks Total Number of Visits Planned: 2 PLAN FOR NEXT VISIT: PROGRESS NOTE - continue aerobic progressions SUBJECTIVE: Reports that she slept a lot today, slept until 11:30 AM. Vestibular Dizziness: Yes Description: light headed Rating of current symptoms: 4/10 Frequency: Intermittent Headache: Yes Description: pressure Rating of current symptoms: 6/10 Location: bilateral Pain: Pain Pain Level: 0 Post Treatment Pain Post Treatment Pain Level: No Change OBJECTIVE MEASURES WITH LEVEL OF FUNCTION: Posture / Alignment Posture: Good Gait Gait Observation: normal gait, no LOB Vitals Pulse: 69 Target HRR and HR Max Calculator: Yes Max Heart Rate: 189 Beta Blockers: Yes 60% HRR: 131 85% HRR: 161 Vitals response to exercise: Yes Peak HR Achieved : 111 Peak RPE Achieved (1-10): 3 60-85% HRR Achieved?: No TREATMENT: Therapeutic Exercise: 1: forearm plank x 30 seconds 2: Treadmill x 9 minutes while educating on management of POTS and expected heart rate with activity 3: Shoulder horizontal abduction with 2 lbs weights seated 4: Education on importance of aerobic activity - goal to increase walking; [facility] protocol calandar for month 1 provided to help with independent progressions Skilled Intervention: Patient was educated in proper exercise technique and purpose for exercises. Patient education as noted. Billing Therapeutic Exercise Treatment Minutes: 40 Skilled Treatment Time Minutes (timed and untimed codes): 40 Total Session Time (minutes): 40 Session Start Time : 1345 Session Stop Time : 1425 Laxmi Camargo PT, DPT documented in this encounterK[facility]07-08-2025 [facility] Telephone encounter Note* Telephone Encounter - Arianne Norris - 01/07/2025 8:12 AM EDT ----- Message from Lashawn Yap sent at 01/04/2025 4:13 PM EDT ----- [facility]FAMP AG STOW-Daniel Guerrero DO - Medication Refill/ low supply Subject Line Format: [Specialty] / [Provider Name] / Medication Question Select Primary Care Department For Pool Routing Assistance: FAMP AG [facility] STOW => AG FAMP/INTM HWCSTOW APPT CTR TRIAGE POOL [[id number]] Patient: Amie Braxton Date of : 1995 Primary Care Provider: Daniel Guerrero DO Patient called to request a refill for her medication(s). Patient was advised that the refill should be called into the pharmacy. Patient advised they had already done so and over 24 hours has passedsince doing so and they are following up: Y/N? Yes. Please contact the patient for additional information at [phone] (jqkt). Thank you, Lashawn Brooks January 04, 2025 4:13 PM [facility]-30-2025 Miscellaneous Notes* Telephone Encounter - Arianne Norris - 01/07/2025 8:12 AM EDT ----- Message from Lashawn Yap sent at 01/04/2025 4:13 PM EDT ----- [employer]FAMP AG STOW-Daniel Guerrero DO - Medication Refill/ low supply Subject Line Format: [Specialty] / [Provider Name] / Medication Question Select Primary Care Department For Pool Routing Assistance: FAMP AG HWC STOW => AG FAMP/INTM HWCSTOW APPT CTR TRIAGE POOL [[id number]] Patient: Amie Braxton Date of : 1995 Primary Care Provider: Daniel Guerrero DO Patient called to request a refill for her medication(s). Patient was advised that the refill should be called into the pharmacy. Patient advised they had already done so and over 24 hours has passedsince doing so and they are following up: Y/N? Yes. Please contact the patient for additional information at [phone] ([place]). Thank you, Lashawn Brooks January 04, 2025 4:13 PM documented in this encounterK[facility]06-27-2025 NoteOhiohealth [facility]-27-[facility] History of Present illness Narrative* Kimi Dinero, [facility]- CRYOLITE RECOVERY OPERATOR - 01/04/2025 5:18 PM EDT Images from the original note were not included. Episode Visit Count: 7 Therapist That Will Accept/Oversee The Plan Of Care: Kimi Dinero Start of Care Date: 07/19/24 Onset Date: 07/09/24 Plan of Care Certification Date: 11/02/24 Next Certification Due Date: 01/31/25 Patient Identified by Name and Date of : Yes REHABILITATION AND SPORTS THERAPY SPEECH THERAPY PROGRESS REPORT PLAN OF CARE UPDATE: Impression: Communication deficits identified: Cognitive-Linguistic deficits Progress Toward Goals: Progressing as expected Functional gains: Increased use of compensatory strategies and Increased knowledge and awareness ofthe need and benefit of completing home exercises to maximize cognitive linguistic skills Goals for Episode of Care Updated: 01/04/2025 Goals for Episode of Care: created on 07/23/2024 through 10/17/24 EXPRESSIVE LANGUAGE GOALS State synonyms/antonyms with 90% effectiveness given minimal cues. Did not test. Progress as of previous session. Antonyms with 100% accuracy, synonyms with 100% accuracy. Progressing/Goal Partially Achieved. Demonstrate the use of taught strategies for effective communication during conversations 95% of the time with minimal cues. Conversational speech at 90-95% accuracy. Pt reports attempting to use word retrieval strategies including SFA/description, synonyms/antonyms, pause/restart, managing mental fatigue and cognitive overload. Progressing/Goal Partially Achieved. All goals to target the patient's overall ability to facilitate functional communication of ADL medical / social needs. COGNITIVE GOALS Improve categorical naming tasks at a concrete and abstract level with 90% accuracy given minimal assist. Did not test. Progress as of previous session.Divergent naming given initial letter for concrete categories with 90% accuracy, increased to 100%accuracy given minimal cues. Progressing/Goal Partially Achieved. Improve immediate and short term/prospective memory to 90% accuracy with use of compensatory strategies with minimal assist/cues. Did not test. Progress as of previous session. Pt recalled 12/12 pictured items utilizing association/categorization, repetition, visualization strategies. Following 15 minute delay, recalled 12/12. Progressing/Goal Partially Achieved. Improve working memory to WFL during complex cognitive tasks with 90% using compensatory strategies in order to recall the steps taken during a cognitive process. Did not test. Progress as of previous session. Working memory task with 90% accuracy. Progressing/Goal Partially Achieved. Improve selective and alternating attention per auditory/visual cognitive tasks to 90% accuracy in order to demonstrate improved ability to focus attention and divide and alternate attention between multiple tasks within the clinical environment. Selective attention for 45 minute session for auditory education with 100% accuracy, pt reports increased fatigue. Progressing/Goal Partially Achieved. All goals to target the patient's overall ability to facilitate functional cognitive linguistic skills. Goals for Episode of Care: established 11/08/2024 SWALLOWING GOALS Demonstrate knowledge and use of compensatory swallowing strategies in order to reduce signs/symptoms of possible aspiration with a Regular Diet and Thin Liquids IDDSI Level 0 [id number]% of trials. Pt states compensatory strategies with 100% accuracy. Continued concern of feeling food sticking in throat. Progressing/Goal Partially Achieved. All goals to target the patient's overall ability to safely consume the highest appropriate diet level Time Frame for Goals and Treatment : 01/31/25 RECOMMENDATION: Planned Interventions, Frequency, and Duration: Follow up for one visit(s) every other week for four weeks for Individual skilled ST services Cognitive-Linguistic Training Patient / Caregiver Education/ Training Dysphagia Reduction Training Patient / Family express agreement with goals Patient continues to demonstrate the following limitations which require skilled Speech intervention: Decreased expressive language Dysphagia Decreased cognitive linguistic skills Diet Recommendations: Regular Consistency, Thin Liquids IDDSI Level 0 Swallowing Precautions Recommendations: Alternate bites and sips, Anti-Reflux precautions, Feed / Eat at a slow rate, Maintain an upright position 20-30 minutes following all oral intake, Sit [id number] degrees for all PO, Small Bite/Sip, Use extra moistening agents, Reduced bite size CRYOLITE RECOVERY OPERATOR Recommendations: Outpatient Speech Therapy Results and Recommendations Discussed With: Patient Planned Interventions, Frequency, and Duration: Planned Treatment Interventions: Cognitive-Linguistic Training (36035, 75635, 99482), Patient / Caregiver Education/ Training, Cognitive Skills Development (40877, 05911), Expressive Language Training (94965, 04308) Current Frequency: 1x every other week Duration: 4 weeks PLAN FOR NEXT VISIT: cognitive overload strateiges, mental fatigue management, memory tasks/strategies, attention tasks/strategies, expressive language tasks/strategies SUBJECTIVE: Subjective: Amie reported having more difficulty swallowing various textures following last session. She cut meats and harder, sticky, more dense foods for awhile. She felt things improved. She is slowly trying to reintroduce some of those foods back in. Still having some liquid regurg., started on omeprazole. Amie reports being very physically fatigued and cognition is about the same. PROMIS Scales 10/20/2024 08/23/2024 08/14/2024 Speech Communication Score 65 65 Cognitve Function T-Score 24 (severe dysfunction) 26 (severe dysfunction) Cognitive Function Percentile 1 T-scores: mean of general population = 50. 5 points is clinically meaningfully difference Percentiles provide an indication of how the patient's score ranks in relation to the general population. Higher percentile rankings indicate better function/quality of life. 50th percentile is the average of the general population and indicates half of respondents had a worse score. OBJECTIVE MEASURES WITH LEVEL OF FUNCTION: Swallow Suspected Esophageal Deficits: Yes see GI notes Previous Swallow Study: MBS Pharyngeal Exercises: Chen Maneuver, Other Exercises TREATMENT: Swallow / Dysphagia (62335): Skilled Intervention: Instructed patient / caregiver on recommended compensatory strategies to maximize safety with oral intake while maintaining nutrition, hydration andmedication stability. , Instruction provided in various swallowing manuevers which included: Chen Maneuver and lingual retraction Speech/Language Therapy (49648): Skilled Intervention: Educated and instructed patient on compensatory strategies for pacing, managing mental fatigue. Billing: Speech Treatment (64942) and Dysphagia Treatment (50773) Total time / Length of visit: 40 minutes Session Start Time : 849 Session Stop Time : 929 Kimi Dinero CCC-CRYOLITE RECOVERY OPERATOR documented in this encounterKettering [facility]06-27-2025 Telephone encounter Note * Telephone Encounter - Idania Salas LPN - 01/04/2025 10:33 AM EDT Patient [employer] message requesting the following refill Refill(s) Requested: Requested Prescriptions Pending Prescriptions Disp Refills amitriptyline (ELAVIL) 25 mg tablet 30 tablet 11 Sig: Take 1 tablet by mouth daily at bedtime. ALLERGIES Allergen Reactions Beef Containing Pro* Intolerance migraines Migraines, upset stomach Beef Derived (Bovin* Hives Egg Derived GI Upset Vomiting even with ingredient of egg Milk Containing Pro* Intolerance, Hives Vomiting. Pineapple Hives, Swelling Hives, difficulty breathing Soy GI Upset vomiting Tree Nuts Other: See Comments Asthma flaring, difficulty breathing Vancomycin Analogues Hives (home) [phone] (cell) Last Office Visit Date: 12/06/2024 Last [facility] Visit: Visit date not found Future Appointment: 03/14/2025 The patients preferred pharmacy has been captured for this encounter? yes Request is for script(s) to be escript to pharmacy. Idania Salas LPN [facility]06-27-2025 Miscellaneous Notes* Telephone Encounter - Idania Salas LPN - 01/04/2025 10:33 AM EDT Patient MyChart message requesting the following refill Refill(s) Requested: Requested Prescriptions Pending Prescriptions Disp Refills amitriptyline (ELAVIL) 25 mg tablet 30 tablet 11 Sig: Take 1 tablet by mouth daily at bedtime. ALLERGIES Allergen Reactions Beef Containing Pro* Intolerance migraines Migraines, upset stomach Beef Derived (Bovin* Hives Egg Derived GI Upset Vomiting even with ingredient of egg Milk Containing Pro* Intolerance, Hives Vomiting. Pineapple Hives, Swelling Hives, difficulty breathing Soy GI Upset vomiting Tree Nuts Other: See Comments Asthma flaring, difficulty breathing Vancomycin Analogues Hives (home) [phone] (cell) Last Office Visit Date: 12/06/2024 Last [facility] Visit: Visit date not found Future Appointment: 03/14/2025 The patients preferred pharmacy has been captured for this encounter? yes Request is for script(s) to be escript to pharmacy. Idania Salas LPN documented in this encounterKettering Health [facility]06-26-2025 History and physical note * Makenzie Lynn APRN.HORSE SHOER - 01/03/2025 2:00 PM EDT REASON FOR VISIT: Results HPI: Amie Braxton is a 29 year old female who presents for follow up IBS. She continues to endorse abdominal bloating and irregular BMs she states that regardless of what she eats she will have GI upset and bloating. She recently had a negative breath test for SIBO. She had a normal upper GI series in [facility]. She has a history of stool burden on previous CT scans. Patient denies vomiting, changes in appetite, unintentional weight loss, melena, hematochezia or hematemesis. Past Clinical Work-Up: Upper GI XR 06/28/24: NORMAL UPPER GI. NORMAL SMALL BOWEL SERIES EGD 04/27/24: - Z-line regular, 35 cm from the incisors. - Normal esophagus. - Normal stomach. Biopsied. - Normal examined duodenum. Biopsied. - Biopsies were taken with a cold forceps for evaluation of eosinophilic esophagitis. US ABD LTD 02/29/2024 Impression 1. Normal ultrasound of the abdomen CTAP WO IVCON 10/17/2022 IMPRESSION: Appendix not identified; otherwise no acute abnormalities seen in the abdomen or pelvis. Moderate stool burden. ALLERGIES Allergen Reactions Beef Containing Pro* Intolerance migraines Migraines, upset stomach Beef Derived (Bovin* Hives Egg Derived GI Upset Vomiting even with ingredient of egg Milk Containing Pro* Intolerance, Hives Vomiting. Pineapple Hives, Swelling Hives, difficulty breathing Soy GI Upset vomiting Tree Nuts Other: See Comments Asthma flaring, difficulty breathing Vancomycin Analogues Hives PAST MEDICAL HISTORY Diagnosis Date Asthma (HCC) Generalized anxiety disorder GERD (gastroesophageal reflux disease) Interstitial cystitis Laryngopharyngeal reflux (LPR) Migraines PCOS (polycystic ovarian syndrome) POTS (postural orthostatic tachycardia syndrome) Tilt x2 ([facility], [facility]) Seasonal allergies Syncope Tachycardia Vocal cord dysfunction PAST SURGICAL HISTORY Procedure Laterality Date TONSILLECTOMY & ADENOIDECTOMY FAMILY HISTORY Problem Relation Age of Onset other (palpitations) Mother stress No Known Problems Father No Known Problems Sister Skin Cancer Maternal Grandmother Diabetes Paternal Grandmother Social History Tobacco Use Smoking status: Never Smokeless tobacco: Never Vaping Use Vaping status: Never Used Substance Use Topics Alcohol use: Never Drug use: Never Current Outpatient Medications Medication Sig metoprolol tartrate, short acting, (LOPRESSOR) 25 mg tablet TAKE 1/2 TABLET TWICE A DAY BY MOUTH omeprazole (PRILOSEC) 20 mg capsule Take 1 capsule by mouth two times a day. budesonide-formoterol (SYMBICORT) 160-4.5 mcg/actuation inhaler Inhale 2 puffs as instructed two times a day. Norethindrone, Contraceptive, 0.35 mg tablet Take 1 tablet by mouth once daily. ivabradine (CORLANOR) 5 mg tablet Take 1.5 tab by mouth twice a day hydrOXYzine HCl (ATARAX) 10 mg tablet Take 2 tablets by mouth every 6 hours as needed for anxiety. sertraline (ZOLOFT) 25 mg tablet Take 0.5 tablets by mouth once daily. albuterol HFA (PROVENTIL HFA, VENTOLIN HFA) 90 mcg/actuation inhaler Inhale 1-2 puffs as instructedevery 6 hours as needed for wheezing/shortness of breath. amitriptyline (ELAVIL) 25 mg tablet Take 1 tablet by mouth daily at bedtime. (Patient not taking: Reported on 01/03/2025) No current facility-administered medications for this visit. I have confirmed and edited, if necessary, the PFSH obtained by others. REVIEW OF SYSTEMS: CONSTITUTIONAL: Negative for unintentional weight loss, malaise or fevers HEENT: Negative for frequent/significant headaches, changes in hearing/vision, nose bleeds or othernasal problems RESPIRATORY: Negative for cough, hemoptysis, wheezing or dyspnea CARDIOVASCULAR: Negative for chest pain, palpitations, syncope or lightheadedness GI: See HPI NEURO: Negative for encephalopathy, tremor or gait abnormality PSYCH: Negative for new changes in mood or affect I have confirmed and edited, if necessary, the PFSH obtained by others. PHYSICAL EXAM: Pulse 67 Wt 45.8 kg (101 lb) LMP 10/21/2024 (Exact Date) SpO2 98% BMI 19.73 kg/m Gen: Comfortable in NAD Head: Normocephalic, atraumatic Skin: No jaundice, rashes or skin lesions Eyes: Sclera anicteric, conjunctiva pink Lungs: unlabored breathing Abd: Soft, non-distended, non-tender, bowel sounds present, no palpable masses or organomegaly Rectal Exam: Examination deferred by patient Neuro: Alert and oriented, no tremor or gross focal motor deficits Psych: Congruent mood and affect, appropriate insight and judgement ASSESSMENT/PLAN: Ms. Braxton is a 29 year old female with a history of SIRS, IBS, PCOS, esophageal spasms and asthma presents for follow up IBS. 1. Diarrhea, unspecified type - ICD9: 787.91, ICD10: R19.7 2. Irritable bowel syndrome with both constipation and diarrhea - ICD9: 564.1, ICD10: K58.2 - XR ABDOMEN 2V ROUTINE SUPINE W UPRIGHT/DECUB/CTL - CALPROTECTIN,FECAL - CLOSTRIDIUM DIFFICILE TOXIN BY PCR - CRYPTOSPORIDIUM AND GIARDIA ANTIGENS BY EIA - ENTERIC BACTERIAL PANEL BY PCR - CELIAC SCREEN WITH REFLEX - PANC ELASTASE, FECAL This note was dictated using [employer] speech recognition software and may contain some errors that were a result of the program not accurately transcribing what was dictated. Makenzie Lynn APRN.HORSE SHOER [facility]06-26-2025 History and physical note* Makenzie Lynn APRN.CNP - 01/03/2025 2:00 PM EDT REASON FOR VISIT: Results HPI: Amie Braxton is a 29 year old female who presents for follow up IBS. She continues to endorse abdominal bloating and irregular BMs she states that regardless of what she eats she will have GI upset and bloating. She recently had a negative breath test for SIBO. She had a normal upper GI series in [facility]. She has a history of stool burden on previous CT scans. Patient denies vomiting, changes in appetite, unintentional weight loss, melena, hematochezia or hematemesis. Past Clinical Work-Up: Upper GI XR 06/28/24: NORMAL UPPER GI. NORMAL SMALL BOWEL SERIES EGD 04/27/24: - Z-line regular, 35 cm from the incisors. - Normal esophagus. - Normal stomach. Biopsied. - Normal examined duodenum. Biopsied. - Biopsies were taken with a cold forceps for evaluation of eosinophilic esophagitis. US ABD LTD 02/29/2024 Impression 1. Normal ultrasound of the abdomen CTAP WO IVCON 10/17/2022 IMPRESSION: Appendix not identified; otherwise no acute abnormalities seen in the abdomen or pelvis. Moderate stool burden. ALLERGIES Allergen Reactions Beef Containing Pro* Intolerance migraines Migraines, upset stomach Beef Derived (Bovin* Hives Egg Derived GI Upset Vomiting even with ingredient of egg Milk Containing Pro* Intolerance, Hives Vomiting. Pineapple Hives, Swelling Hives, difficulty breathing Soy GI Upset vomiting Tree Nuts Other: See Comments Asthma flaring, difficulty breathing Vancomycin Analogues Hives PAST MEDICAL HISTORY Diagnosis Date Asthma (HCC) Generalized anxiety disorder GERD (gastroesophageal reflux disease) Interstitial cystitis Laryngopharyngeal reflux (LPR) Migraines PCOS (polycystic ovarian syndrome) POTS (postural orthostatic tachycardia syndrome) Tilt x2 ([facility], [facility]) Seasonal allergies Syncope Tachycardia Vocal cord dysfunction PAST SURGICAL HISTORY Procedure Laterality Date TONSILLECTOMY & ADENOIDECTOMY <AGE 14 FAMILY HISTORY Problem Relation Age of Onset other (palpitations) Mother stress No Known Problems Father No Known Problems Sister Skin Cancer Maternal Grandmother Diabetes Paternal Grandmother Social History Tobacco Use Smoking status: Never Smokeless tobacco: Never Vaping Use Vaping status: Never Used Substance Use Topics Alcohol use: Never Drug use: Never Current Outpatient Medications Medication Sig metoprolol tartrate, short acting, (LOPRESSOR) 25 mg tablet TAKE 1/2 TABLET TWICE A DAY BY MOUTH omeprazole (PRILOSEC) 20 mg capsule Take 1 capsule by mouth two times a day. budesonide-formoterol (SYMBICORT) 160-4.5 mcg/actuation inhaler Inhale 2 puffs as instructed two times a day. Norethindrone, Contraceptive, 0.35 mg tablet Take 1 tablet by mouth once daily. ivabradine (CORLANOR) 5 mg tablet Take 1.5 tab by mouth twice a day hydrOXYzine HCl (ATARAX) 10 mg tablet Take 2 tablets by mouth every 6 hours as needed for anxiety. sertraline (ZOLOFT) 25 mg tablet Take 0.5 tablets by mouth once daily. albuterol HFA (PROVENTIL HFA, VENTOLIN HFA) 90 mcg/actuation inhaler Inhale 1-2 puffs as instructedevery 6 hours as needed for wheezing/shortness of breath. amitriptyline (ELAVIL) 25 mg tablet Take 1 tablet by mouth daily at bedtime. (Patient not taking: Reported on 01/03/2025) No current facility-administered medications for this visit. I have confirmed and edited, if necessary, the PFSH obtained by others. REVIEW OF SYSTEMS: CONSTITUTIONAL: Negative for unintentional weight loss, malaise or fevers HEENT: Negative for frequent/significant headaches, changes in hearing/vision, nose bleeds or othernasal problems RESPIRATORY: Negative for cough, hemoptysis, wheezing or dyspnea CARDIOVASCULAR: Negative for chest pain, palpitations, syncope or lightheadedness GI: See HPI NEURO: Negative for encephalopathy, tremor or gait abnormality PSYCH: Negative for new changes in mood or affect I have confirmed and edited, if necessary, the PFSH obtained by others. PHYSICAL EXAM: Pulse 67 Wt 45.8 kg (101 lb) LMP 10/21/2024 (Exact Date) SpO2 98% BMI 19.73 kg/m Gen: Comfortable in NAD Head: Normocephalic, atraumatic Skin: No jaundice, rashes or skin lesions Eyes: Sclera anicteric, conjunctiva pink Lungs: unlabored breathing Abd: Soft, non-distended, non-tender, bowel sounds present, no palpable masses or organomegaly Rectal Exam: Examination deferred by patient Neuro: Alert and oriented, no tremor or gross focal motor deficits Psych: Congruent mood and affect, appropriate insight and judgement ASSESSMENT/PLAN: Ms. Braxton is a 29 year old female with a history of SIRS, IBS, PCOS, esophageal spasms and asthma presents for follow up IBS. 1. Diarrhea, unspecified type - ICD9: 787.91, ICD10: R19.7 2. Irritable bowel syndrome with both constipation and diarrhea - ICD9: 564.1, ICD10: K58.2 - XR ABDOMEN 2V ROUTINE SUPINE W UPRIGHT/DECUB/CTL - CALPROTECTIN,FECAL - CLOSTRIDIUM DIFFICILE TOXIN BY PCR - CRYPTOSPORIDIUM AND GIARDIA ANTIGENS BY EIA - ENTERIC BACTERIAL PANEL BY PCR - CELIAC SCREEN WITH REFLEX - PANC ELASTASE, FECAL This note was dictated using [employer] speech recognition software and may contain some errors that were a result of the program not accurately transcribing what was dictated. Makenzie Lynn APRN.CNP documented in this encounterKettering Health [facility]06-26-2025 History of Present illness Narrative* Katarina Mae CT - 01/03/2025 12:15 PM EDT Radiology Service Progress Note PATIENT NAME: Amie Braxton DATE OF SERVICE: January 03, 2025 TIME: 12:27 PM PATIENT IDENTITY VERIFICATION COMPLETED USING TWO (2) IDENTIFIERS: Name and Date of confirmedby patient verbally. FALL SCREENING: Has the patient had 2 falls in the last year or 1 fall with injury or currently using an Ambulatory Assistive Device (Walker, Cane, Wheelchair, Crutches, etc.)? No PATIENT GENDER DATA: Assigned female at . status: : No status:NO. PATIENT RELEVANT IMPLANT DATA REVIEWED: Not Applicable PATIENT PRESENTS WITH AN IMPLANTABLE OR ATTACHED POLICE SERGEANT PRECINCT: No RADIOLOGY DEPARTMENT: General X-ray: Exam(s) Completed: Abdomen X-Ray: Abdomen with Upright PERIPHERAL IV DATA: Not applicable SIGNED BY: KATHY Gamez January 03, 2025 12:27 PM documented in this encounterKettering Health [facility]06-26-2025 NoteOhiohealth Van Wert [facility]06-26-2025 Instructions* Patient Instructions* Makenzie Lynn APRN.CNP - 01/03/2025 11:52 AM EDT Thank you for seeing me in clinic today. As we discussed, my recommendations are as follows: 1.stool testing 2.X ray 3.Blood work If you have any questions about the above treatment plan, please do not hesitate to call the officeor send me a [employer] message. documented in this encounterKettering Health [facility]06-24-2025 History of Present illness Narrative* Laxmi Camargo, PT - 01/01/2025 4:15 PM EDT Program_ID:[id number] Access Code: [email or web address] URL: [email or web address] Date: 01-01-2025 Prepared By: Laxmi Camargo Program Notes Exercises - 15 Minute Guided Meditation - 1 x daily - x weekly - sets - reps - Standing Shoulder Row with Anchored Resistance - 1 x daily - 7 x weekly - 3 sets - 10 reps - Sidelying Thoracic Rotation with Open Book - 1 x daily - 7 x weekly - 3 sets - 10 reps - Seated Heel Raise - 1 x daily - 7 x weekly - 3 sets - 10 reps - Seated March - 1 x daily - 7 x weekly - 3 sets - 10 reps - Seated Long Arc Quad - 1 x daily - 7 x weekly - 3 sets - 10 reps - Bug - 1 x daily - 7 x weekly - 3 sets - 10 reps - Supine Bridge with Resistance Band - 1 x daily - 7 x weekly - 3 sets - 10 reps - Supine Straight-Leg Raise With Resistance at Ankles - 1 x daily - 7 x weekly - 3 sets - 10 reps * Laxmi Camargo, PT - 01/01/2025 3:33 PM EDT Images from the original note were not included. Episode Visit Count: 6 Therapist That Will Accept/Oversee The Plan Of Care: Laxmi Camargo Start of Care Date: 08/06/24 Onset Date: 07/11/24 (near the end 2019- chronic dizziness) Plan of Care Certification Date: 01/01/25 Next Certification Due Date: 02/26/25 REHABILITATION AND SPORTS THERAPY PHYSICAL THERAPY PROGRESS REPORT PLAN OF CARE UPDATE: Assessment: Amie Braxton demonstrates no change subjectively in symptoms besides heart rate being more stable and she is having lightheadedness more than vertigo episodes. The patient has progressed toward goals. Patient continues to present with impairments in symptom management that interfere with . Currentprognosis is Good due to: current objective clinical presentation, Prognosis may be limited due to multiple co- morbidities . The patient will benefit from continued skilled therapy services to meet the updated goals for this plan of care as noted below. Goals for Episode of Care: established 08/06/24 Updated 01/01/2025 Patient will be able to correct postural deviations independently in order to allow for normal mechanics, to decrease current pain and prevent future recurrence. NOT MET Patient will be able to decrease pain to <3/10 at rest and with functional activities. NOT MET Patient will perform Romberg stance on compliant surface for 30 seconds without LOB. MET Patient will demonstrate normal active cervical spine range of motion to restore posture and complete ADLS with trace report of dizziness/imbalance. MET Patient will be independent with home exercise program and progression. ONGOING Patient will return to prior level of function with all activities of daily living with trace reports of dizziness. PROGRESSING Patient will be able to walk household and community distances with safe, functional gait pattern with trace report of dizziness/imbalance. PROGRESSING Patient will demonstrate the ability to complete VOR in static and dynamic positions with trace report of dizziness. MET Patient Goals: to have more stability PROGRESSED Time Frame for Goals and Treatment : 02/26/25 Planned Interventions, Frequency, and Duration: 1x every other week, 8 weeks Total Number of Visits Planned: 4 Patient to be seen for Therapeutic exercise (83769), Neuromuscular re-education (37187), Manual therapy (24671), Therapeutic activities (34410), Gait Training (10679), General Conditioning, Canalith Repositioning Maneuvers (25248) PLAN FOR NEXT VISIT: continue light aerobics, weight training; PNE education SUBJECTIVE: Reports that she is feeling the same. More tests have been ruled out other conditions. Heart palpitations have been less frequent. No prolonged heart palpitations. dizziness has remained persistant, lightheadedness and vertigo. Vestibular Dizziness: Yes Pain: Pain Pain Level: 0 Post Treatment Pain Post Treatment Pain Level: No Change PROMIS Scales 11/02/2024 10/20/2024 08/23/2024 Higher is Better Self-Eff Symptom - T Score 43 (Average) Self-Eff Symptom - Percentile 24 Cognitve Function - T Score 24 (severe dysfunction) 26 (severe dysfunction) Cognitive Function - Percentile 1 Communication - Score 65 T-scores: mean of general population = 50. 5 points is clinically meaningfully difference Percentiles provide an indication of how the patient's score ranks in relation to the general population. Higher percentile rankings indicate better function/quality of life. 50th percentile is the average of the general population and indicates half of respondents had a worse score. OBJECTIVE MEASURES WITH LEVEL OF FUNCTION: Posture / Alignment Posture: Good Oculomotor Testing Fixation Present X1 Viewing - Horizontal: WNL - no intense dizziness Cervical Spine ROM Cervical ROM : Limitation AROM Cervical Flexion AROM: Normal Cervical Extension AROM: Normal Cervical Side-Bend Right AROM: Normal Cervical Side-Bend Left AROM: Normal Cervical Rotation Right AROM: Normal Cervical Rotation Left AROM: Normal CTSIB Eyes open, firm surface Trial 1 (sec): 30 Eyes open, firm surface Trial 1 (sway): WNL Eyes closed, firm surface Trial 1 (sec): 30 Eyes closed, firm surface Trial 1 (sway): WNL Eyes open, foam surface Trial 1 (sec): 30 Eyes open, foam surface Trial 1 (sway): WNL Eyes closed, foam surface Trial 1 (sec): 30 Eyes closed, foam surface Trial 1 (sway): WNL TREATMENT: Therapeutic Exercise: 1: bridges 3 x 10 wit pink band around thigh for resistance 2: SLR x 10 with pink band resistance 3: NuStep x 7 minutes while monitoring symptoms and educating on management of symptoms with hydration and compression garments 4: updated and reviewed HEP -see Mary Skilled Intervention: Patient was educated in proper exercise technique and purpose for exercises. Patient education as noted. Neuromuscular Re-Education: 1: walking VORx1 fwd/bwd 2: mCTSIB 3: education on importance of light aerobic exercise for symptom managment - dizziness, POTS and migraines Skilled Intervention: Skilled judgment used to assess appropriate program for balance and coordination activity. Patient education as noted. Skilled judgement used to assess appropriate program for vestibular adaptation, substitution and balance coordination activities. Billing Therapeutic Exercise Treatment Minutes: 27 Neuromuscular Re-Education Treatment Minutes: 15 Skilled Treatment Time Minutes (timed and untimed codes): 42 Total Session Time (minutes): 42 Session Start Time : 1535 Session Stop Time : 1617 Laxmi Camargo PT, DPT documented in [facility] Note[facility] Instructions* Patient Instructions* Nel Anderson MD - 12/31/2024 12:26 PM EDT Plan and Lifestyle Prescription Plan/Instructions/Resources: We discussed your ongoing symptoms and treatment plan: - POTS (Postural Orthostatic Tachycardia Syndrome): - Continue taking glutamine powder and quercetin as they appear to be helping with bloating and histamine-related symptoms. - Consider starting low-dose naltrexone (LDN) to help regulate your immune system and potentially improve dizziness and blood pressure regulation. This is a compounded medication not covered by insurance, costing approximately $50 for a 3-month supply. If you decide to try it, please let me know, and I will send the prescription. We would start with 1 mg and gradually increase the dose over 6 months. - Maintain your current mindfulness practices to help manage stress, as stress can impact your immune system and gut health. - High IgE and Allergy Symptoms: - Your high IgE levels may be related to allergies, histamine reactions, or a combination of both. Continue avoiding foods that trigger symptoms, such as corn, chocolate, and cocoa, as recommended byyour corporate tax manager. Reassess after 3 weeks of elimination. - Bloating and Possible Parasitic Infection: - I have sent a prescription for tinidazole (antiparasitic medication) to your [facility] pharmacy on [address]. This is a one-time dose of 4 tablets taken with a meal. Please wait to take this medication until you have stabilized your GI medications and adjusted to any changes. If you find it helpfulbut still have symptoms, we can consider a second dose one month later. - Avoid making other medication or supplement changes when taking tinidazole to monitor its effectsaccurately. - Amitriptyline and GI Symptoms: - Your GI physician is considering increasing your amitriptyline dose from 25 mg to 50 mg to address esophageal spasms. If the higher dose does not help, they may reduce it back to 25 mg. This medication has been helpful for your interstitial cystitis and has antihistamine effects, which may also benefit your symptoms. - Wait a couple of weeks after any dose adjustment to assess your response before starting the antiparasitic medication. - Sleep and Magnesium Levels: - Your magnesium levels are slightly low (4.7; goal is 5). I recommend starting magnesium glycinate, an [id number]-hxeigod supplement, to support sleep and stress management. Take 1 capsule at bedtime.This form is less likely to cause diarrhea compared to other types of magnesium. - Trusted brands include Pure Encapsulations and other gluten-free, [id number] options. - Recent Lab Results: - Your SIBO (small intestinal bacterial overgrowth) test was negative. - Your cortisol level was slightly elevated but not concerning for adrenal insufficiency. This may be related to stress or poor sleep. - Your ACTH (adrenocorticotropic hormone) level was normal. - Your tryptase levels were lower than before, which may indicate improvement with quercetin. Follow-Up Plan: - Schedule a follow-up visit in 3-4 months to reassess, your symptoms, IgE levels, and treatment progress. - Let me know if you decide to start low-dose naltrexone. Supplements/medications: Please start the following in order, one at a time, wait 3 days before adding the next one and continue taking them until our next visit (or as instructed). If you react to a supplement/medication, stop them and go to the next one on the list. Common OTC brands to consider: Doctor's Best, NOW, [employer] Lem[employer] Life. Life Extension. - Continue l-glutamine powder for 3 months - Continue quercetin 500mg, 1 capsule twice a day. Optimal magnesium RBC level is 5. Please add magnesium glycinate 120mg, 1 capsule at bedtime (Pure encapsulations brand - available online) Common OTC brands to consider: Doctor's Best, NOW, [employer] Lemus [employer] Life. Life Extension. After your GI medications have stabilized- For parasitic infection: Tinidazole 2grams (4 capsules) 1 time, with a meal. (Script sent to your pharmacy) - Review and let me if you want to try LDN- low-dose naltrexone or LDN to modulate the function of your immune system (inflammation). You can find more information about LDN at [email or web address] [facility] [place] - Insurance may not cover this medication, please contact the pharmacy for pillai and shipping (phone ) Medications/Supplements Recommended: Medication orders placed this encounter tinidazole (TINDAMAX) 500 mg tablet Sig: Take 4 tablets by mouth one time only for 1 dose. Dispense: 4 tablet Refill: 0 Discussed the functional approach serves as an adjunct to patients current treatment regimen with subspecialties and PCP. Pt aware that they will be contacted with critical results via [employer]. Additional supplement and lab interpretation to be discussed at follow up. Please continue to follow up with your PCP for preventative health maintenance and acute concerns Follow up: Please schedule a follow up visit 4-6 months LIFESTYLE PRESCRIPTION Functional Nutrition: Per corporate tax manager documented in this encounterK[facility]-23-[facility] History of Present illness Narrative* Nel Anderson MD - 12/31/2024 11:30 AM EDT Functional Medicine Follow-up Visit Patient: Amie Braxton ALLERGIES Allergen Reactions Beef Containing Pro* Intolerance migraines Migraines, upset stomach Beef Derived (Bovin* Hives Egg Derived GI Upset Vomiting even with ingredient of egg Milk Containing Pro* Intolerance, Hives Vomiting. Pineapple Hives, Swelling Hives, difficulty breathing Soy GI Upset vomiting Tree Nuts Other: See Comments Asthma flaring, difficulty breathing Vancomycin Analogues Hives Current Outpatient Medications on File Prior to Visit Medication Sig omeprazole (PRILOSEC) 20 mg capsule Take 1 capsule by mouth two times a day. budesonide-formoterol (SYMBICORT) 160-4.5 mcg/actuation inhaler Inhale 2 puffs as instructed two times a day. Norethindrone, Contraceptive, 0.35 mg tablet Take 1 tablet by mouth once daily. ivabradine (CORLANOR) 5 mg tablet Take 1.5 tab by mouth twice a day amitriptyline (ELAVIL) 25 mg tablet Take 1 tablet by mouth daily at bedtime. hydrOXYzine HCl (ATARAX) 10 mg tablet Take 2 tablets by mouth every 6 hours as needed for anxiety. sertraline (ZOLOFT) 25 mg tablet Take 0.5 tablets by mouth once daily. metoprolol tartrate, short acting, (LOPRESSOR) 25 mg tablet Take 0.5 tablets by mouth two times a day. albuterol HFA (PROVENTIL HFA, VENTOLIN HFA) 90 mcg/actuation inhaler Inhale 1-2 puffs as instructedevery 6 hours as needed for wheezing/shortness of breath. No current facility-administered medications on file prior to visit. PAST MEDICAL HISTORY Diagnosis Date Asthma (HCC) Generalized anxiety disorder GERD (gastroesophageal reflux disease) Interstitial cystitis Laryngopharyngeal reflux (LPR) Migraines PCOS (polycystic ovarian syndrome) POTS (postural orthostatic tachycardia syndrome) Tilt x2 ([facility], [facility]) Seasonal allergies Syncope Tachycardia Vocal cord dysfunction PAST SURGICAL HISTORY Procedure Laterality Date TONSILLECTOMY & ADENOIDECTOMY <AGE 14 Social History Tobacco Use Smoking status: Never Smokeless tobacco: Never Vaping Use Vaping status: Never Used Substance Use Topics Alcohol use: Never Drug use: Never Functional Medicine Timeline Patient Entered Questionnaire PROMIS Scale T-Scores -- HIGHER SCORES BETTER 06/19/2024 09/19/2024 10/20/2024 PROMIS Global Health - (T-Scores - the mean of general population = 50. Five points is a clinicallymeaningful difference.) Physical T-Score 26.7 19.9 19.9 19.9 29.6 Mental T-Score 28.4 21.2 21.2 21.2 21.2 December 31, 2024 Nel Girard MD Subjective: 29 year old female - first follow up Initial functional medicine evaluation in 10/2024 : Recs:RD- low histamine diet, breath test, l-glutamine powder, quercetin, LDN trial, consider DNRS Amie Braxton is a 29-year-old female with a history of POTS, presenting for follow-up of GI discomfort and food reactions. POTS: - Initial visit in October. - Symptoms include dizziness and palpitations. - Palpitations have decreased in frequency. - Sleep is variable, with periods of 8-9 hours of sleep alternating with 4-5 hours of good sleep. - Recent labs showed slightly elevated am cortisol levels and normal ACTH levels. - Current medications include Zoloft and Atarax. Facial Flushing: - Episodes of facial flushing, more frequent than hives. - Flushing occurs within minutes of eating certain foods, such as chicken and green beans. - Recent tryptase levels were lower than previous measurements. - High IgE levels noted in recent labs- stable compared to 2 years ago. - History of multiple allergies- including skin and blood tests for environmental and food allergies. - Recent dietary changes include eliminating corn, chocolate, and cocoa for three weeks. Abdominal Bloating and Pressure: - Persistent abdominal bloating and pressure, particularly in one specific area. - Symptoms improved with glutamine powder and quercetin supplements. - lactulose breath test returned normal results. - Bowel movements are inconsistent, with improvement noted after reducing sodium intake. - Recent travel to [facility] in 2022; previous parasitic cleanse in 2019 with black walnut supplements was discontinued due to adverse effects. - Current medications include amitriptyline 25 mg and Protonix- adjusting with GI. - Plans to increase amitriptyline to 50 mg pending approval from primary care physician and urologist. Saw GI 12/2024- change PPI, consider increasing amitryptiline, if no improvement, consider pH testing Did not start LDN Supplements: l-glutamine powder, quercetin Review of Systems: Constitutional: (+) insomnia Cardiovascular: (+) palpitations Gastrointestinal: (+) abdominal bloating, (+) abdominal pressure, (+) irregular bowel movements Skin: (+) facial flushing, (+) urticaria Labs Latest Ref Rng 10/30/2024 12/04/2024 12/26/2024 EBV VCA IgG, Qual Negative Positive ! EBV VCA IgM, Qual Negative Negative EBV NA Ab, Qual Negative Positive ! Interpretation (EBVPNL) Past Infection. EBV panel interpretation is a general guide that is meant to capture most, but not all, of the possible clinical scenarios. Non-specific reactivities are not uncommon especially with equivocal results. Should the overall interpretation not be consistent with the clinical picture, please contact the biomedical scientist of the test for assistance. Magnesium RBC 4.0 - 6.5 mg/dL 4.7 Tryptase <8.4 ug/L 5.0 3.5 Histamine, WB 180 - 1800 nmol/L 684 Herpes Vir. 6 IgG Ab 1:20 (H) UltraSens C-Reactive Protein <3.1 mg/L 0.3 IgE <114.0 kU/l 324.0 (H) Lyme Antibodies, Screen Negative Negative Cortisol 4.8 - 19.5 ug/dL 19.8 (H) ACTH 7.2 - 63.3 pg/mL 62.7 Legend: ! Abnormal (H) High EBV EA igg negative 11/30/24- lactulose breath test- negative for SIBO Previous HPI: October 30, 2024 Nel Girard MD HPI: 29 year old female who presents to The Department of Functional Medicine for initial consultation. Patient Goals: My heart and my head- dizziness and palpitations support Current medical concerns: Amie is a 29-year-old female with a history of POTS, presenting for evaluation of dizziness and tachycardia. Dizziness and Tachycardia: - Dizziness and tachycardia began after a COVID-19 infection in late 2019. - Diagnosed with long COVID; symptoms have progressively worsened. - Tilt table test in 2022 was negative for POTS. - Official POTS diagnosis in February 2023 after orthostatic bed testing. - Tilt table test in April 2023 showed delayed POTS. - Currently taking ivabradine and metoprolol. - Reports episodes of inappropriate sinus tachycardia, with heart rate spiking to 170 bpm at rest. - Episodes last up to 6 hours, occurring multiple times a day. - Initial episodes thought to be SVT; ruled out by EP after heart monitor testing. - Ivabradine initially helped for 2 weeks, but symptoms returned. - Experiences chest pain, burning head pain, migraines, dizziness, and lightheadedness. - Reports dehydration despite drinking 100-200 fluid ounces daily. - Sodium intake reduced from 7,000 mg to 3,000 mg daily; no significant difference noted. - Scheduled for further autonomic testing; working with a neurologist in the neuromuscular center. - Unable to exercise due to symptoms; experiences pre-syncope and dizziness. - Syncope once in 2020. - Reports stress from multiple ER visits and hospitalizations. - Unable to engage in previous stress-relief activities due to symptoms. - Currently watching TV and playing games on phone for relaxation. - No recent cortisol testing. Diet and Food Allergies: - Diet improved, eating small meals and snacks throughout the day. - Avoids gluten, artificial sugars, and dyes. - Allergic to dairy, nuts, beef, soy, eggs, and pineapple. - Pineapple allergy causes hives and oral sores. - Dairy, eggs, and soy cause gastrointestinal symptoms. - Nuts cause regurgitation and asthma. - Beef causes severe migraines. - Allergies began at age 12; soy allergy developed at 19 or 20. - No joint swelling or redness related to food allergies. - Taking B12, D3, fish oil, and pre/probiotics. Gastrointestinal Symptoms: - Reports upper abdominal pain since July or August. - Pain believed to be rib inflammation by primary care physician. - Discomfort after eating, with symptoms worsening 1-2 hours postprandial. - Experiences facial and chest flushing after eating. - Stool consistency inconsistent, leaning towards diarrhea in recent months. - History of distal esophageal spasms; taking amitriptyline with no relief. PCOS: - Diagnosed with PCOS at age 15; irregular periods with spotting 2-3 times a year. - Sensitive to control; not taking hormones currently. - Prescribed medication by mobility architect but has not started due to recent hospitalizations. - Experiencing more consistent spotting since June. - No recent cortisol testing. 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 Physical Exam: Objective: Constitutional: oriented to person, place, and time and well-developed, well- nourished, and in no distress. HENT: hearing intact Head: Normocephalic and atraumatic. Pulmonary/Chest: Effort normal. Neurological: alert and oriented to person, place, and time. CURRENT Functional Medicine Assessment/ PLAN Patient Goals: My heart and my head- dizziness and palpitations support Nutritional Assessment Food intolerance- DF, avoids , soy, eggs, beef- severe migraines- GI symptoms, nuts- reflux, SOB Food allergy- pineapple- hives, dairy, nuts, beef, soy, eggs, Nutrient deficiencies Avoids gluten 200 oz/d, 3g of sodium/day Digestive Function: GERD/ esophageal spasm- on PPI, and amitriptyline Post-prandial dyspepsia 11/30/24- lactulose breath test- negative for SIBO Inflammation/Immune Function: Asthma IC- taking amitriptyline COVID-19 infection- severe dizziness- Environmental allergies- at, dog, grass, ragweed Allergic to dairy, nuts, beef, soy, eggs, and pineapple. Flushing Elevated IgE- 10/2023- 300s Energy Production/Function: Fatigue Anxiety /PANDA- follows with therapist hospital admission 09/2024- suicidal ideation- following with psychiatry Detoxification Function: Exposures: 12/2023- tick bite Mold - possible Chemical sensitivities yes Foreign travel/Frequent airplane travel - yes- [place] Hormonal Function: ACEs- grandmother PCOS- 15yo- PCOS- period for 1 year, then amenorrhea- then irregular periods- 2-3/y Structural Function: POTS- on ivabradine, metoprolol added 02/2024- hospital admission- ICU- Dx of POTS- orthostatic bed testing- tilt table test repeated 04/2024- POTS, neg for syncope Inappropriate sinus tach Assessment Assessment: R23.2 Flushing (primary encounter diagnosis) R76.8 Elevated IgE level K90.49 Food intolerance Z78.9 History of foreign travel E63.9 Nutritional deficiency Amie was seen today for established patient. Diagnoses and all orders for this visit: Flushing Elevated IgE level - tinidazole (TINDAMAX) 500 mg tablet; Take 4 tablets by mouth one time only for 1 dose. Food intolerance - tinidazole (TINDAMAX) 500 mg tablet; Take 4 tablets by mouth one time only for 1 dose. History of foreign travel - tinidazole (TINDAMAX) 500 mg tablet; Take 4 tablets by mouth one time only for 1 dose. Nutritional deficiency Assessment & Plan # Flushing (R23.2) Episodes of facial flushing continue, often occurring shortly after eating certain foods such as chicken and green beans. Recent tryptase levels were lower than previous measurements, suggesting potential benefit from quercetin supplementation. - Continue quercetin supplementation. - Consider initiating low-dose naltrexone (LDN) after reviewing its benefits and potential side effects; will provide information on LDN and its compounding pharmacy. - Follow-up in 3-4 months to reassess symptoms and treatment efficacy. # Elevated IgE level (R76.8) Persistently high IgE levels, with recent measurement at 324 IU/mL, slightly increased from previous 299 IU/mL. History of environmental and food allergies confirmed by skin testing. - Discussed potential role of LDN in modulating immune response. - Consider antiparasitic treatment with tinidazole 2g as a single dose, to be initiated after stabilization of current GI medications. - Repeat IgE levels after completion of antiparasitic treatment to assess for changes. # Food intolerance (K90.49) Ongoing symptoms of abdominal bloating and pressure, with inconsistent bowel movements. Recent SIBObreath test was negative. Current dietary modifications include avoidance of high-histamine foods and recent elimination of corn and chocolate. Some improvement in bloating with l-glutamine and quercetin. - Continue current dietary modifications. - Maintain glutamine powder supplementation for gut healing for an additional 3 months. - Continue quercetin # History of foreign travel (Z78.9) Recent travel to [facility] in 2022 with potential exposure to parasites. Previous parasitic cleanse in 2020 was not well-tolerated. with a high IgE - Prescribed tinidazole 2g as a single dose, to be taken after stabilization of current GI medications. - Monitor for any adverse reactions or changes in symptoms post-treatment. # Nutritional deficiency (E63.9) Borderline low RBC magnesium level at 4.7 mg/dL, with optimal goal being 5 mg/dL. Patient reports poor sleep quality, which may be contributing to elevated cortisol levels. - Initiate magnesium glycinate supplementation, 120mg- 1 capsule at bedtime to support sleep and optimize magnesium levels. - Recommended Pure Encapsulations brand or other reputable brands with third- libertarian testing. - Reassess magnesium levels and sleep quality at follow-up in 3-4 months. Plan and Lifestyle Prescription Plan/Instructions/Resources: We discussed your ongoing symptoms and treatment plan: - POTS (Postural Orthostatic Tachycardia Syndrome): - Continue taking glutamine powder and quercetin as they appear to be helping with bloating and histamine-related symptoms. - Consider starting low-dose naltrexone (LDN) to help regulate your immune system and potentially improve dizziness and blood pressure regulation. This is a compounded medication not covered by insurance, costing approximately $50 for a 3-month supply. If you decide to try it, please let me know, and I will send the prescription. We would start with 1 mg and gradually increase the dose over 6 months. - Maintain your current mindfulness practices to help manage stress, as stress can impact your immune system and gut health. - High IgE and Allergy Symptoms: - Your high IgE levels may be related to allergies, histamine reactions, or a combination of both. Continue avoiding foods that trigger symptoms, such as corn, chocolate, and cocoa, as recommended byyour corporate tax manager. Reassess after 3 weeks of elimination. - Bloating and Possible Parasitic Infection: - I have sent a prescription for tinidazole (antiparasitic medication) to your [facility] pharmacy on [address]. This is a one-time dose of 4 tablets taken with a meal. Please wait to take this medication until you have stabilized your GI medications and adjusted to any changes. If you find it helpfulbut still have symptoms, we can consider a second dose one month later. - Avoid making other medication or supplement changes when taking tinidazole to monitor its effectsaccurately. - Amitriptyline and GI Symptoms: - Your GI physician is considering increasing your amitriptyline dose from 25 mg to 50 mg to address esophageal spasms. If the higher dose does not help, they may reduce it back to 25 mg. This medication has been helpful for your interstitial cystitis and has antihistamine effects, which may also benefit your symptoms. - Wait a couple of weeks after any dose adjustment to assess your response before starting the antiparasitic medication. - Sleep and Magnesium Levels: - Your magnesium levels are slightly low (4.7; goal is 5). I recommend starting magnesium glycinate, an [id number] supplement, to support sleep and stress management. Take 1 capsule at bedtime.This form is less likely to cause diarrhea compared to other types of magnesium. - Trusted brands include Pure Encapsulations and other gluten-free, [id number] options. - Recent Lab Results: - Your SIBO (small intestinal bacterial overgrowth) test was negative. - Your cortisol level was slightly elevated but not concerning for adrenal insufficiency. This may be related to stress or poor sleep. - Your ACTH (adrenocorticotropic hormone) level was normal. - Your tryptase levels were lower than before, which may indicate improvement with quercetin. Follow-Up Plan: - Schedule a follow-up visit in 3-4 months to reassess, your symptoms, IgE levels, and treatment progress. - Let me know if you decide to start low-dose naltrexone. Supplements/medications: Please start the following in order, one at a time, wait 3 days before adding the next one and continue taking them until our next visit (or as instructed). If you react to a supplement/medication, stop them and go to the next one on the list. Common OTC brands to consider: Doctor's Best, NOW, Allan, [employer]. Life Extension. - Continue l-glutamine powder for 3 months - Continue quercetin 500mg, 1 capsule twice a day. Optimal magnesium RBC level is 5. Please add magnesium glycinate 120mg, 1 capsule at bedtime (Pure encapsulations brand - available online) Common OTC brands to consider: Doctor's Best, NOW, Allan, Garden of Life. Life Extension. After your GI medications have stabilized- For parasitic infection: Tinidazole 2grams (4 capsules) 1 time, with a meal. (Script sent to your pharmacy) - Review and let me if you want to try LDN- low-dose naltrexone or LDN to modulate the function of your immune system (inflammation). You can find more information about LDN at [email or web address] [facility] [place] - Insurance may not cover this medication, please contact the pharmacy for pillai and shipping (phone ) Medications/Supplements Recommended: Medication orders placed this encounter tinidazole (TINDAMAX) 500 mg tablet Sig: Take 4 tablets by mouth one time only for 1 dose. Dispense: 4 tablet Refill: 0 Discussed the functional approach serves as an adjunct to patients current treatment regimen with subspecialties and PCP. Pt aware that they will be contacted with critical results via TherMarkhart. Additional supplement and lab interpretation to be discussed at follow up. Please continue to follow up with your PCP for preventative health maintenance and acute concerns Follow up: Please schedule a follow up visit 4-6 months LIF[employer] Functional Nutrition: Per corporate tax manager *Nel Girard MD I spent a total of 40 minutes on the date of the service which included preparing to see the patient, [id number] patient care, completing clinical documentation, obtaining and/or reviewing separately obtained history, counseling and educating the patient/family/caregiver, and ordering medications, tests, or procedures. The patient consented to the use of Speed Commerce software for draft documentation of the visit consistent with [facility] Notice of Privacy Practices. documented in this encounterKettering [facility]06-23-2025 NoteOhio[facility]-18-[facility] NoteOhio[facility]06-18-[facility] History of Present illness Narrative* Samra Rose APRN.HORSE SHOER - 12/26/2024 3:03 PM EDT VIRTUAL VISIT Amie Braxton is a 29 year old female who is scheduled for a virtual visit for esophageal spasm at the consult request of . I have communicated my name and active licensure. The patient's identity and physical location wereverified at the time of this visit. Either the patient or their legal collections representative has been informed of the risks and benefits of -- and alternatives to -- treatment through a remote evaluation andconsents to proceed with the evaluation remotely. My final recommendations will be communicated back to the requesting physician by the way of the shared medical record, fax, or via US Mail. HISTORY: HPI: The patient is a 29-year-old female with esophageal spasms and reflux symptoms, presenting for ongoing evaluation of dysphagia, esophageal spasms, and reflux. She reports experiencing mini burps and symptoms of reflux, particularly after swallowing and eating. She has been prescribed pantoprazole but was unable to take it consistently for at least eight weeks, as she had to stop for three weeks for a placebo test before restarting. She notes that she has not observed improvement in her symptoms with pantoprazole. She is also taking amitriptyline 25 mg, which she states has not helped with her esophageal spasms. However, she reports significant relief of her interstitial cystitis symptoms with this low dose and expresses openness to increasing thedose if recommended. The patient describes a sensation of food getting stuck at the back of her tongue that won't go down, as well as a recent increase in episodes of food getting stuck in her esophagus, which she did not experience previously. She also reports a new onset of more frequent and aggressive central esophageal spasms, which are severe enough to cause her to pause and question whether she is experiencing a cardiac event. She states that these symptoms are new and have become more prominent. She confirms adherence to lifestyle modifications, including stopping meals and snacks at least three hours before lying down. She also notes that pills often get stuck when swallowing. There have been no changes in her medications or allergies since her last visit. PAST MEDICAL HISTORY Diagnosis Date Asthma (HCC) Generalized anxiety disorder GERD (gastroesophageal reflux disease) Interstitial cystitis Laryngopharyngeal reflux (LPR) Migraines PCOS (polycystic ovarian syndrome) POTS (postural orthostatic tachycardia syndrome) Tilt x2 ([facility], [facility]) Seasonal allergies Syncope Tachycardia Vocal cord dysfunction PAST SURGICAL HISTORY Procedure Laterality Date TONSILLECTOMY & ADENOIDECTOMY <AGE 14 FAMILY HISTORY Problem Relation Age of Onset other (palpitations) Mother stress No Known Problems Father No Known Problems Sister Skin Cancer Maternal Grandmother Diabetes Paternal Grandmother Social History Tobacco Use Smoking status: Never Smokeless tobacco: Never Vaping Use Vaping status: Never Used Substance Use Topics Alcohol use: Never Drug use: Never Current Outpatient Medications Medication Sig Dispense Refill budesonide-formoterol (SYMBICORT) 160-4.5 mcg/actuation inhaler Inhale 2 puffs as instructed two times a day. Norethindrone, Contraceptive, 0.35 mg tablet Take 1 tablet by mouth once daily. 84 tablet 3 ivabradine (CORLANOR) 5 mg tablet Take 1.5 tab by mouth twice a day amitriptyline (ELAVIL) 25 mg tablet Take 1 tablet by mouth daily at bedtime. hydrOXYzine HCl (ATARAX) 10 mg tablet Take 2 tablets by mouth every 6 hours as needed for anxiety. [address] (PROTONIX) 40 mg tablet Take 1 tablet by mouth once daily. 90 tablet 3 sertraline (ZOLOFT) 25 mg tablet Take 0.5 tablets by mouth once daily. 45 tablet 2 metoprolol tartrate, short acting, (LOPRESSOR) 25 mg tablet Take 0.5 tablets by mouth two times a day. 90 tablet 0 albuterol HFA (PROVENTIL HFA, VENTOLIN HFA) 90 mcg/actuation inhaler Inhale 1-2 puffs as instructedevery 6 hours as needed for wheezing/shortness of breath. No current facility-administered medications for this visit. ALLERGIES Allergen Reactions Beef Containing Pro* Intolerance migraines Migraines, upset stomach Beef Derived (Bovin* Hives Egg Derived GI Upset Vomiting even with ingredient of egg Milk Containing Pro* Intolerance, Hives Vomiting. Pineapple Hives, Swelling Hives, difficulty breathing Soy GI Upset vomiting Tree Nuts Other: See Comments Asthma flaring, difficulty breathing Vancomycin Analogues Hives REVIEW OF SYSTEMS: PAIN ASSESSMENT: Negative for pain, history of chronic pain, or current treatment for a chronic pain condition. GENERAL: No weight loss, malaise or fevers RESPIRATORY: Negative for cough, hemoptysis, wheezing, COPD, dyspnea or shortness of breath CARDIOVASCULAR: Negative for chest pain, leg swelling, hypertension, CHF or palpitations GI: as above MUSCULOSKELETAL: Negative for joint pain or swelling, back pain or muscle pain SKIN: Negative for lesions, rash, and itching ENDOCRINE: Negative for cold or heat intolerance, polyuria, polydipsia and goiter NEURO: No history of headaches, syncope, paralysis, seizures or tremors PHYSICAL FINDINGS OF NOTE: Patient reported height 5'1 and weight 103 lbs General - Normal, healthy, cooperative, in no acute distress Able to interact verbally by video conference Psych - ORIENTATION: normal to time place, person and situation Mood/Affect: AFFECT AND MOOD: Normal Head/Neuro - Normal size and shape Facial appearance normal Pulmonary - respiratory effort normal Cardiovascular - patient describes extremities normal, warm, no cyanosis,no clubbing, and no edema Skin - abnormal lesions not visualized Motor - patient seen sitting with Normal appearing strength and coordination REVIEWED ITEMS Prior work up ASSESSMENT AND PLAN 1. Esophageal spasm (K22.4) Persistent esophageal spasms despite current treatment with amitriptyline 25 mg and intermittent use of pantoprazole. Symptoms may be related to esophageal hypersensitivity rather than acid reflux. - Discontinue pantoprazole. - Initiate omeprazole 20 mg PO BID, 30 minutes before breakfast and dinner. Educated patient on administration and potential need to open capsule and mix with applesauce or yogurt if difficulty swallowing occurs. - Monitor for improvement over 8 weeks. - Contact Dr. Flores to discuss increasing amitriptyline dosage to 50 mg. - If no improvement, consider pH testing to evaluate for acid reflux. I HAVE offered the patient an outpatient appointment for further care at [facility]. I spent a total of 30 minutes on the date of the service which included preparing to see the patient, [id number] patient care, completing clinical documentation, obtaining and/or reviewing separately obtained history, performing a medically appropriate examination, counseling and educating the pat ient/family/caregiver, ordering medications, tests, or procedures, communicating with other HCPs (not separately reported), independently interpreting results (not separately reported), communicatingresults to the patient/family/caregiver, and care coordination (not separately reported). Samra Rose APRN.HORSE SHOER Recording using Speed Commerce software for draft documentation of the visit was discussed with the patient/authorized collections representative; all questions welcomed and answered. Patient/authorized collections representative agreed to proceed documented in this encounterKet[facility]06-17-2025 Telephone encounter Note * Telephone Encounter - Jolynn Santiago - 12/25/2024 12:56 PM EDT Unable to leave message as vm was full Sent mychart to patient to schedule procedure [facility]06-17-2025 Miscellaneous Notes* Telephone Encounter - Jolynn Santiago - 12/25/2024 12:56 PM EDT Unable to leave message as vm was full Sent mychart to patient to schedule procedure documented in this encounterKettering [facility]06-16-2025 NoteOhio[facility]06-16-2025 History of Present illness Narrative* Katy Gant MD - 12/24/2024 2:48 PM EDT VIRTUAL VISIT PROGRESS NOTE This is a virtual visit using HipLogiqhart Zoom Video Visit. It required patient- provider interaction for the medical decision making as documented below. I have communicated my name and active licensure. The patient's identity and physical location wereverified at the time of this visit. Either the patient or their legal collections representative has been informed of the risks and benefits of -- and alternatives to -- treatment through a remote evaluation andconsents to proceed with the evaluation remotely. Amie Braxton is a 29 year old female seen for endometrial polyp. Patient had heavy bleeding for 1 month. Has history of PCOS and previously had infrequent menses (3x per year), but now is having more frequent and prolonged bleeding episodes.Has tried controls and felt sick, has only tried [facility] in the past. Has an mobility architect who had recommended progesterone therapy. This was not started because was having episodes of rapid heart rate, now on metoprolol to help control it. Has a history of POTS. Hada thorough cardiac workup which was normal. Has well controlled asthma. SIS 11/26/24: The uterus is anteverted and measures 77 mm x 30 mm x 38 mm. The endometrial thicknessis 4.6 mm. Saline infusion sonohysterogram demonstrated an intracavitary lesion. The details of these findingsare described in the procedure section below. The morphology of the ovaries bilaterally is polycystic. The right ovary measures 49 mm x 22 mm x 24 mm. The left ovary measures 39 mm x 30 mm x 21 mm. There is no free fluid visualized. HISTORY REVIEWED (electronic chart updated): PAST MEDICAL HISTORY Diagnosis Date Asthma (HCC) Generalized anxiety disorder GERD (gastroesophageal reflux disease) Interstitial cystitis Laryngopharyngeal reflux (LPR) Migraines PCOS (polycystic ovarian syndrome) POTS (postural orthostatic tachycardia syndrome) Tilt x2 ([facility], [facility]) Seasonal allergies Syncope Tachycardia Vocal cord dysfunction PAST SURGICAL HISTORY Procedure Laterality Date TONSILLECTOMY & ADENOIDECTOMY <AGE 14 FAMILY HISTORY Problem Relation Age of Onset other (palpitations) Mother stress No Known Problems Father No Known Problems Sister Skin Cancer Maternal Grandmother Diabetes Paternal Grandmother Social History Tobacco Use Smoking status: Never Smokeless tobacco: Never Vaping Use Vaping status: Never Used Substance Use Topics Alcohol use: Never Drug use: Never Current Outpatient Medications Medication Sig budesonide-formoterol (SYMBICORT) 160-4.5 mcg/actuation inhaler Inhale 2 puffs as instructed two times a day. Norethindrone, Contraceptive, 0.35 mg tablet Take 1 tablet by mouth once daily. ivabradine (CORLANOR) 5 mg tablet Take 1.5 tab by mouth twice a day amitriptyline (ELAVIL) 25 mg tablet Take 1 tablet by mouth daily at bedtime. hydrOXYzine HCl (ATARAX) 10 mg tablet Take 2 tablets by mouth every 6 hours as needed for anxiety. pantoprazole DR (PROTONIX) 40 mg tablet Take 1 tablet by mouth once daily. sertraline (ZOLOFT) 25 mg tablet Take 0.5 tablets by mouth once daily. metoprolol tartrate, short acting, (LOPRESSOR) 25 mg tablet Take 0.5 tablets by mouth two times a day. albuterol HFA (PROVENTIL HFA, VENTOLIN HFA) 90 mcg/actuation inhaler Inhale 1-2 puffs as instructedevery 6 hours as needed for wheezing/shortness of breath. No current facility-administered medications for this visit. ALLERGIES Allergen Reactions Beef Containing Pro* Intolerance migraines Migraines, upset stomach Beef Derived (Bovin* Hives Egg Derived GI Upset Vomiting even with ingredient of egg Milk Containing Pro* Intolerance, Hives Vomiting. Pineapple Hives, Swelling Hives, difficulty breathing Soy GI Upset vomiting Tree Nuts Other: See Comments Asthma flaring, difficulty breathing Vancomycin Analogues Hives REVIEW OF SYSTEMS: As noted in HPI PHYSICAL EXAMINATION: VIDEO EXAM: (if completed, performed via video enabled technology) No exam performed ASSESSMENT: (N84.0) Endometrial polyp (primary encounter diagnosis) (E28.2) PCOS (polycystic ovarian syndrome) (N93.9) Abnormal uterine bleeding (AUB) PLAN: -consent sent for hysteroscopy, D&C with possible polypectomy. Discussed risks including bleeding, infection, uterine perforation and need for more extensive procedures. Patient is in agreement and understands. -reviewed hormonal management of PCOS. Will start on POP. If not improving, could consider IUD. There are no Patient Instructions on file for this visit. I spent a total of 30 minutes on the date of the service which included preparing to see the patient, [id number] patient care, completing clinical documentation, obtaining and/or reviewing separately obtained history, counseling and educating the patient/family/caregiver, and ordering medications, tests, or procedures Katy Gant MD documented in this encounterK[facility]06-16-2025 History of Present illness Narrative* Praveen Canales MD - 12/24/2024 11:00 AM EDT Images from the original note were not included. . [facility] Note Patient name: Amie Braxton PCP: Daniel Guerrero DO Recording using ambient TransGaming software for draft documentation of the visit was discussed with the patient/authorized collections representative; all questions welcomed and answered. Patient/authorized collections representative agreed to proceed CC: Follow-up asthma HPI: Amie Braxton 29 year old female non-smoker with PMH significant for longstanding asthma, PCOS, PTSD, anxiety, allergies (intolerant of Singulair) presenting for follow up. Current inhaled therapy consists of Symbicort. She was seen by allergy with rxn to environmental allergens and strong reaction to cats. Has consistent exposure to cats via her boyfriend. Last PFT 06/2024 without obstruction and Mariana was normal. She is currently using Symbicort for maintenance and has not needed to use her rescue inhaler recently. She was previously on a high dose of Advair without improvement in her asthma symptoms but feels her body has reacted better to Symbicort. Her last office visit she has had multiple issues including a hospitalization in September for persistent intermittent tachycardia with reported heart rates up to 190. In addition she has had intermittent hives and persistent allergy symptoms. Subsequently started on Atarax which has helped both her anxiety and her allergy symptoms. 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 She was seen by Dr. Means diagnosed with vocal cord dysfunction as well as LPR. She is currently undergoingvoice training. She underwent a full cardiac workup, including a Holter monitor, and was evaluated by an marketing copywriter, Dr. Schafer, who specializes in POTS. Despite her diagnosis of POTS in February, Dr. Schafer believes these episodes are not typical of POTS. Currently denies any significant dyspnea, wheezing, chronic cough or mucus production. She has had some intermittent bandlike chest tightness located in her lower anterior chest. DATA: Oral Exhaled Nitric Oxide measurement (Previous Encounters) Test Date Oral Exhaled Nitric Oxide (ppb) 06/22/2024 17.0 11/18/2022 11.0 Labs: Component Ref Range & Units 1 mo ago 3 mo ago Tryptase <8.4 ug/L 5.0 3.8 Component Ref Range & Units 1 mo ago 2 yr ago IgE <114.0 kU/l 324.0 High 299.0 High PAST MEDICAL HISTORY Diagnosis Date Asthma (HCC) Generalized anxiety disorder Interstitial cystitis Migraines PCOS (polycystic ovarian syndrome) POTS (postural orthostatic tachycardia syndrome) Tilt x2 ([facility], [facility]) Seasonal allergies Syncope ALLERGIES Allergen Reactions Beef Containing Pro* Intolerance migraines Migraines, upset stomach Beef Derived (Bovin* Hives Egg Derived GI Upset Vomiting even with ingredient of egg Milk Containing Pro* Intolerance, Hives Vomiting. Pineapple Hives, Swelling Hives, difficulty breathing Soy GI Upset vomiting Tree Nuts Other: See Comments Asthma flaring, difficulty breathing Vancomycin Analogues Hives budesonide-formoterol (SYMBICORT) 160-4.5 mcg/actuation inhaler Inhale 2 puffs as instructed two times a day. medroxyPROGESTERone (PROVERA) 10 mg tablet Take 10 mg by mouth. ivabradine (CORLANOR) 5 mg tablet Take 1.5 tab by mouth twice a day amitriptyline (ELAVIL) 25 mg tablet Take 1 tablet by mouth daily at bedtime. hydrOXYzine HCl (ATARAX) 10 mg tablet Take 2 tablets by mouth every 6 hours as needed for anxiety. pantoprazole DR (PROTONIX) 40 mg tablet Take 1 tablet by mouth once daily. sertraline (ZOLOFT) 25 mg tablet Take 0.5 tablets by mouth once daily. metoprolol tartrate, short acting, (LOPRESSOR) 25 mg tablet Take 0.5 tablets by mouth two times a day. albuterol HFA (PROVENTIL HFA, VENTOLIN HFA) 90 mcg/actuation inhaler Inhale 1-2 puffs as instructedevery 6 hours as needed for wheezing/shortness of breath. Social History Tobacco Use Smoking status: Never Smokeless tobacco: Never Vaping Use Vaping status: Never Used Substance Use Topics Alcohol use: Never Drug use: Never FAMILY HISTORY Problem Relation Age of Onset other (palpitations) Mother stress No Known Problems Father No Known Problems Sister Skin Cancer Maternal Grandmother Diabetes Paternal Grandmother PAST SURGICAL HISTORY Procedure Laterality Date TONSILLECTOMY & ADENOIDECTOMY <AGE 14 PMH, Social history, family history and surgical history reviewed and updated in EMR REVIEW OF SYSTEMS: CONSTITUTIONAL: No fevers, chills, nightsweats, unintended weight loss HEENT: Denies nasal congestion/sinus symptoms CARDIOVASCULAR: Chest tightness, palpitations, tachycardia PULM: GI: No dysphagia/odynophagia. GERD : Interstitial cystitis NEURO: No new balance problems, peripheral weakness/paresthesias or numbness of concern. MUSC-SKEL: No new joint pain, swelling, or erythema. PSY: Anxiety INTEGUMENTARY: Hives PHYSICAL EXAMINATION: BP 94/62 Pulse 71 Wt 103 lb 9.6 oz (47.0kg) SpO2 99% LMP 10/21/2024 General Appearance: Thin female, NAD. Skin: Skin color, texture, turgor normal, no suspicious rashes or lesions. Head: Normocephalic, no masses, lesions, tenderness or abnormalities. Oropharynx: Oral lesions or erythema. Neck: No masses or adenopathy. Lungs: Not labored, normal to percussion, no wheezes or crackles. Heart: Regular rate and rhythm, no murmurs or gallops. Extremities: No edema or clubbing. Assessment/Plan: 1. Mild intermittent asthma uncomplicated -She will remain on Symbicort for maintenance and as needed for her asthma -Exhaled nitric oxide level at next visit -Recall history concerning for possible mast cell activation syndrome 2. Vocal cord dysfunction -Continue Atarax and breathing exercises -Follow-up with Dr. Means. May need gabapentin 3. GERD - Antireflux measures - Continue Protonix Praveen Canales MD [facility] documented in this encounterK[facility]-16-2025 NoteOhio[facility]06-13-2025 Instructions* Patient Instructions* Cherri Newman RD - 12/21/2024 1:52 PM EDT [facility] MEDICINE FOLLOW UP NUTRITION INSTRUCTIONS Nutrition Follow-up: In [address]ri Newman RD. Your Prescribed Nutrition Plan: Food Plan: Custom Discontinue low histamine, low fodmap food approaches, as histamine and tryptase were within normalranges and SIBO test was negative. 2. Begin L-glutamine as recommended by Dr. Syed 5 mg daily in smoothies or water Brands: Pure encapsulations, Metageics (glutagenics) 3. Replace OWYN Shake with: Passed [employer] heavy metals test* -Truvani PlantBased Protein -Vanilla Flavored -Nutiva HempProtein Powder -PlantFusion CompleteProtein - Vanilla 4. Switch from iodized salt to celtic salt or sea salt Spread sodium consumption throughout the day 5. Consider this probiotic as an alternative to the Smarty Pants Probiotic. This probiotic has beenshown to improve antibiotic-associated diarrhea, which may be helpful for you given your loose stools and history of antibiotics: UltraFlora Restore Gut Health Probiotics Metagenics 6. Trial corn-free, chocolate-free 4-6 weeks and then slowly reintroduce small amounts Major food ingredients derived from corn: Caramel Flint alcohol Cornflakes Flint flour Cornmeal Flint oil Cornstarch Flint sugar Flint sweetener Flint syrup Dextrate Dextrin Dextrose(also known as glucose or corn sugar) Grits High fructose corn syrup [place] Maltodextrin Maltodextrose Modified starch Polenta Popcorn Sorbitol Starch Vegetable starch Vegetable gum Vegetable protein Vegetable paste Avoid cecile powder products ADDITIONAL INSTRUCTIONS: How to Contact Your Functional Medicine Team (Open M-F 8am-5pm): 1. [employer] is the BEST form of communication to reach the Functional Medicine Team, see test results and request refills. Please allow 72 business hours for a response. Directions for signing up are included in your New Patient Folder. (Or you can go to [email or web address]) 2. For nutrition related questions or concerns, [employer]Log[employer] message your physician and include Attn: Cherri Newman RD at the top of the message. [employer] messaging is meant to support implementation of previously outlined nutrition care plans. In the interest of safe, effective and personalized care, you are asked to schedule a follow-up appointment if: It has been >6 months since your last nutrition appointment Your question requires reassessment or involves a new plan of care Your question concerns a new diagnosis, symptoms(s) and/or health concern documented in this encounterKet[facility]-13-[facility] History of Present illness Narrative* Cherri Newman RD - 12/21/2024 1:00 PM EDT [facility] Functional Medicine Nutrition Therapy: Follow-Up Assessment (Individual) IN PERSON Patient Name: Amie Braxton Past Medical History: PAST MEDICAL HISTORY Diagnosis Date Asthma (HCC) Generalized anxiety disorder Interstitial cystitis Migraines PCOS (polycystic ovarian syndrome) POTS (postural orthostatic tachycardia syndrome) Tilt x2 ([facility], [facility]) Seasonal allergies Syncope Allergies: Beef Containing Products, Beef Derived (Bovine), Egg Derived, Milk Containing Products (Dairy), Pineapple, Soy, Tree Nuts, and Vancomycin Analogues Current Medications/Supplements Current Outpatient Medications on File Prior to Visit Medication Sig fluticasone-salmeterol (ADVAIR) 500-50 mcg/dose dsdv Inhale 1 puff as instructed two times a day. medroxyPROGESTERone (PROVERA) 10 mg tablet Take 10 mg by mouth. ivabradine (CORLANOR) 5 mg tablet Take 1.5 tab by mouth twice a day amitriptyline (ELAVIL) 25 mg tablet Take 1 tablet by mouth daily at bedtime. hydrOXYzine HCl (ATARAX) 10 mg tablet Take 2 tablets by mouth every 6 hours as needed for anxiety. miSOPROStol (CYTOTEC) 200 mcg tablet Take 1 tablet by mouth as directed. Take 2 (two) tablets by mouth at bedtime (one) night before the procedure. (Patient not taking: Reported on 12/06/2024) pantoprazole DR (PROTONIX) 40 mg tablet Take 1 tablet by mouth once daily. sertraline (ZOLOFT) 25 mg tablet Take 0.5 tablets by mouth once daily. metoprolol tartrate, short acting, (LOPRESSOR) 25 mg tablet Take 0.5 tablets by mouth two times a day. albuterol HFA (PROVENTIL HFA, VENTOLIN HFA) 90 mcg/actuation inhaler Inhale 1-2 puffs as instructedevery 6 hours as needed for wheezing/shortness of breath. No current facility-administered medications on file prior to visit. Primary ICD-10 Diagnosis Addressed: POTS (postural orthostatic tachycardia syndrome) [G90.A] Provider Nutrition Notes:Nutrition only today Status of Chief Concerns 1. Lifelong gut issues 2. Tachycardia 3. POTS 4. PCOS Nutrition Assessment (updated 12/21/24) Current Symptom Review: From previous: Hx Hives Pt was advised to take 6000 mg sodium daily-diarrhea Drinks 100 oz water daily Now aiming for 4324-3835 mg daily [place] calories quickly, has trouble gaining weight, but does not want to gain SIBO- negative Pt states heart rate is more controlled recently Symptoms- occasional palpitations, bloating, upper GI bloating and ache Frequent UTIs since kid, IC dx in highschool - amytriptoline has helped burning and frequent urination issues, constant antibiotics, so many UTIs, denies hx kidney stones Takes Probiotic- smarty pants BM- daily, 2-3x day, soft, not diarrhea but borderline, light in color Food and Nutrition History (update): Follows Low fodmap, low histamine, low sugar, GF recommendations from [facility] website Current Adverse Reactions to Foods: After eating - feels worse, 3 small meals and snacks Sugar- bladder flare ups/UTI symptoms, face is hot, raises BP Allergies-soy, pineapple, eggs, nuts protein powder bloating Avoid dairy Mostly gluten free Caffeine free Alcohol- allergic Diet Recall: Yes 24 Hour Recall Breakfast: skipped, woke at 11 Lunch: 1:00 chickpea pasta, 6 chicken meatballs, marinara sauce Dinner: 1/2 cup quinoa, less than 1/2 cup chicken and green beans Snacks: veggie chips, beet crackers with hummus, [employer] chips Beverages: water Anthropometrics LMP 10/21/2024 (Exact Date) Last Height: Last 1 Encounter Ht Readings: Date: Ht: 10/30/2024 154.9 cm (5' 1) Last Weight: Last Wt 12/06/24 : 47.2 kg (104 lb 0.9 oz) 11/21/24 : 46.3 kg (102 lb 1.2 oz) 10/30/24 : 47.6 kg (104 lb 15 oz) Wt: 47.2 kg (104 lb 0.9 oz) BMI: 19.66 kg/(m^2) Learning Needs Assessment: Barriers to Learning: Ready to Learn (no barriers noted) Assessed motivation to learn: high Biochemical and Laboratory Data Conventional/Advanced Testing Latest Reference Range & Units 12/04/24 08:32 Cortisol 4.8 - 19.5 ug/dL 19.8 (H) Latest Reference Range & Units 10/30/24 10:02 EBV NA Ab, Qual Negative Positive ! EBV VCA IgG, Qual Negative Positive ! EBV VCA IgM, Qual Negative Negative Herpes Vir. 6 IgG Ab 1:20 (H) IgE <114.0 kU/l 324.0 (H) Interpretation (EBVPNL) Past Infection. EBV panel interpretation is a general guide that is meant to capture most, but not all, of the possible clinical scenarios. Non-specific reactivities are not uncommon especially with equivocal results. Should the overall interpretation not be consistent with the clinical picture, please contact the biomedical scientist of the test for assistance. Lyme Antibodies, Screen Negative Negative Tryptase <8.4 ug/L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 The intended procedure Time Out: Relevant labs, photos, and/or imaging studies have been reviewed Intended patient and procedure match the source document(s) (e.g. consent, H&P, associated studies [imaging, pathology]) match the intended patient and procedure. Consent obtained and matches the intended procedure. Yes Correct side/site match the intended patient and procedure. Medications required for this procedure are not applicable. Fire risk assessed and is not applicable. Implants: are not applicable. Sign Out: Specimens not collected. All instruments, equipment, possible retained foreign bodies are accounted for. Yes The post-procedure plan of care has been communicated to the patient or surrogate. PROCEDURE: EXTERNAL GENITALIA: Normal in appearance without lesions VAGINA: Normal in appearance without lesions Speculum placed into the vagina with excellent visualization of the cervix. Cervix cleaned with chloraprep. SIS catheter inserted into the uterus without difficulty. Speculum removed and 40 mL sterile saline injected into the uterine cavity under ultrasound guidance. Procedure Summary: Patient tolerated procedure well. See ViewPoint for procedure results. Katy Gant MD documented in this encounterKettering [facility]05-15-2025 History of Present illness Narrative* Laxmi Camargo, PT - 11/22/2024 10:15 AM EDT Program_ID:[id number] Access Code: [email or web address] URL: [email or web address] Date: 11-22-2024 Prepared By: Laxmi Camargo Program Notes Exercises - Supine Bridge - 1 x daily - x weekly - 1 sets - 10 reps - 15 Minute Guided Meditation - 1 x daily - x weekly - sets - reps - Seated Cervical Retraction - 1 x daily - 7 x weekly - 3 sets - 10 reps - Seated Gentle Upper Trapezius Stretch - 1 x daily - x weekly - 3 sets - reps - Standing Shoulder Row with Anchored Resistance - 1 x daily - 7 x weekly - 3 sets - 10 reps - Sidelying Thoracic Rotation with Open Book - 1 x daily - 7 x weekly - 3 sets - 10 reps - Seated Heel Raise - 1 x daily - 7 x weekly - 3 sets - 10 reps - Seated March - 1 x daily - 7 x weekly - 3 sets - 10 reps - Seated Long Arc Quad - 1 x daily - 7 x weekly - 3 sets - 10 reps - Bug - 1 x daily - 7 x weekly - 3 sets - 10 reps * Laxmi Camargo, PT - 11/22/2024 9:45 AM EDT Episode Visit Count: 5 Therapist That Will Accept/Oversee The Plan Of Care: Laxmi Camargo Start of Care Date: 08/06/24 Onset Date: 07/11/24 (near the end 2019- chronic dizziness) Plan of Care Certification Date: 11/02/24 Next Certification Due Date: 12/28/24 REHABILITATION AND SPORTS THERAPY PHYSICAL THERAPY TREATMENT NOTE ASSESSMENT: Amie Braxton tolerated the session with no issues. She demonstrated somewhat improved tolerance to seated exercises. Home exercise program updated to include sitting exercises. The patient will continue to benefit from ongoing skilled physical therapy to progress toward set goals and for reassessment by supervising therapist. PLAN FOR NEXT VISIT: progress graded exercie and light aerobics aerobics SUBJECTIVE: Reports tht everything is the same. Medication is still stabilizing her head. Vestibular Dizziness: Yes Description: light headed Rating of current symptoms: 5/10 Frequency: Intermittent Headache: Yes (reports not yet) Description: pressure, sharp Rating of current symptoms: 0/10 Pain: Pain Pain Level: 5 Pain Location: Neck Post Treatment Pain Post Treatment Pain Level: No Change OBJECTIVE MEASURES WITH LEVEL OF FUNCTION: CTSIB Eyes open, firm surface Trial 1 (sec): 30 Eyes open, firm surface Trial 1 (sway): WNL Eyes closed, firm surface Trial 1 (sec): 30 Eyes closed, firm surface Trial 1 (sway): WNL TREATMENT: Therapeutic Exercise: 1: NuStep x 5 minutes while monitoring vitals and symptoms 2: seated ankle pumps x 20 with 1.5 lbs weights 3: LAQ's x 20 each leg 4: Alternating marches x 20 each leg Skilled Intervention: Patient was educated in proper exercise technique and purpose for exercises. Patient education as noted. Neuromuscular Re-Education: 1: Education on grounding with weighted vest 2: Education on safety with taking showers at home by sitting in a chair for energy conseration andto avoid presyncopal episodes 3: Education on slow progression of aerobics and continuing walking program as able. 4: Education on natural recovery fro exercise and conserving energy so that exercises don't cause intnse fatigue requiring proloned naps during the day Skilled Intervention: Skilled judgment used to assess appropriate program for balance and coordination activity. Patient education as noted. Skilled judgement used to assess appropriate program for vestibular adaptation, substitution and balance coordination activities. Billing Therapeutic Exercise Treatment Minutes: 25 Neuromuscular Re-Education Treatment Minutes: 14 Skilled Treatment Time Minutes (timed and untimed codes): 39 Total Session Time (minutes): 39 Session Start Time : 938 Session Stop Time : 1017 Laxmi Camargo PT, DPT documented in this encounterK[facility]05-15-2025 NoteOhio[facility]05-14-2025 History of Present illness Narrative* Carline Carson APRN.HORSE SHOER - 11/21/2024 2:00 PM EDT Images from the original note were not included. [facility] [place] Department of Benign Gynecology [facility] PATIENT NAME: Amie Braxton PCP: Daniel Guerrero DO DATE: 11/21/2024 Chief Complaint CC: heavy and irregular bleeding History of Present Illness: Amie is a 29 year old who presents for problem visit for irregular menses The patient reports a history of infrequent menses since age 15 due to PCOS. In August, she beganexperiencing regular menses, which coincided with episodes of tachycardia. She had a 15-day menses in August, followed by a 7-day menses in September. On 10/21, she began another menses that has persisted for approximately 30 days. The bleeding has recently decreased, with spotting noted since Tuesday. Initially, she was changing 2-3 pads per day, each approximately 50% saturated every 2 hours. Currently, she uses one pad per day with minimal saturation. She denies pruritus, malodor, or significantdischarge, though she notes mild discharge over the past 3 days. She denies cramping or pain associated with the bleeding. She is sexually active with a long-term partner of 5 years and occasionally uses condoms. She does not express concern about and has not been before. She denies dyspareunia and reports that intercourse during light bleeding days seemed to decrease flow. In August, she experienced episodes of tachycardia with heart rates reaching 192 bpm and sustained rates of 150 bpm for 6 hours. She underwent extensive cardiac evaluation, including echocardiogram, MRI, and coronary CT, with no significant findings. She was diagnosed with POTS in February, but hercardiologist and marketing copywriter do not believe her recent symptoms are related to POTS. Her marketing copywriter suggested a hormonal imbalance, leading to an endocrinology referral. She was evaluated for insulin resistance and categorized as having lean PCOS. Her mobility architect recommended progesterone therapy, but her primary care physician and hospital team advised postponing it due to wor sening cardiac symptoms. Menses: cycles every 21-30 days and 7-14 days of flow. Contraception: none Last Pap: 09/06/2023, normal HPV: , N/A History of abnormal pap: No OB History Gravida0 Para0 Term0 Preterm0 AB0 Living0 SAB0 IAB0 Ectopic0 Multiple0 Live Births0 Review of Systems: Genitourinary: (+) prolonged vaginal bleeding, (+) vaginal discharge, (-) itching, (-) odor, (-) pelvic pain, (-) pain with intercourse Past Medical History: PAST MEDICAL HISTORY Diagnosis Date Asthma (HCC) Generalized anxiety disorder Migraines PCOS (polycystic ovarian syndrome) POTS (postural orthostatic tachycardia syndrome) Tilt x2 ([facility], [facility]) Seasonal allergies Syncope Family History: Family History Problem Relation Age of Onset other (palpitations) Mother stress No Known Problems Father No Known Problems Sister Skin Cancer Maternal Grandmother Diabetes Paternal Grandmother Past Surgical History: PAST SURGICAL HISTORY Procedure Laterality Date TONSILLECTOMY & ADENOIDECTOMY <AGE 14 Social History: Social History Tobacco Use Smoking status: Never Smokeless tobacco: Never Vaping Use Vaping status: Never Used Substance Use Topics Alcohol use: Never Drug use: Never Allergies: ALLERGIES Allergen Reactions Beef Containing Pro* Intolerance migraines Migraines, upset stomach Beef Derived (Bovin* Hives Egg Derived GI Upset Vomiting even with ingredient of egg Milk Containing Pro* Intolerance, Hives Vomiting. Pineapple Hives, Swelling Hives, difficulty breathing Soy GI Upset vomiting Tree Nuts Other: See Comments Asthma flaring, difficulty breathing Vancomycin Analogues Hives Allergies updated: Yes Medications: Current Outpatient Medications Medication Sig pantoprazole DR (PROTONIX) 40 mg tablet Take 1 tablet by mouth once daily. hydrOXYzine HCl (ATARAX) 10 mg tablet TAKE 2 TABLETS BY MOUTH EVERY 6 HOURS NEEDED FOR ANXIETY. sertraline (ZOLOFT) 25 mg tablet Take 0.5 tablets by mouth once daily. ivabradine (CORLANOR) 5 mg tablet Take 2.5 mg by mouth two times a day. metoprolol tartrate, short acting, (LOPRESSOR) 25 mg tablet Take 0.5 tablets by mouth two times a day. amitriptyline (ELAVIL) 25 mg tablet Take 0.5 tablets by mouth daily at bedtime. albuterol HFA (PROVENTIL HFA, VENTOLIN HFA) 90 mcg/actuation inhaler Inhale 1-2 Puffs as instructedevery 6 hours as needed for wheezing/shortness of breath. budesonide-formoterol (SYMBICORT) 160-4.5 mcg/actuation inhaler Inhale 2 Puffs as instructed two times a day. No current facility-administered medications for this visit. Medications reviewed in detail and updated PRN: Yes Physical Exam: BP 104/54 Wt 46.3 kg (102 lb 1.2 oz) LMP 10/21/2024 (Exact Date) BMI 19.29 kg/m GENERAL: Well appearing, alert, well-hydrated, well nourished female in no apparent distress HEENT: Normocephalic, atraumatic, mucus membranes moist, and no lesions PELVIC: external genitalia normal, normal Bartholin's glands, urethra, Haines's glands, no vulvar lesions, no cervical lesions, good vaginal support, normal appearing perineal body and perianal region, +scant amount of bright red blood in the vagina BIMANUAL: uterus normal size, shape and consistency, no adnexal masses, and non-tender RECTOVAGINAL: deferred. NEURO: alert and oriented x3 EXTREMITIES: normal Recent labs/Diagnostic studies: I have thoroughly reviewed this patients previous notes, encounters, labs, and results prior to this visit. Assessment and Plan Encounter Diagnosis ICD-10-CM 1. examination or test, unconfirmed Z32.00 UA DIP,URINE HCG (POC) 2. Abnormal uterine bleeding (AUB) N93.9 SONOHYSTEROGRAPHY (SIS) US WHI miSOPROStol (CYTOTEC) 200 mcg tablet 3. Prolonged menstruation N92.1 4. Polycystic ovarian syndrome E28.2 5. Postural orthostatic tachycardia syndrome (POTS) G90.A 1. examination or test, unconfirmed (Z32.00) Patient is sexually active with inconsistent use of contraception. Recent prolonged bleeding episode raises concern for potential . - Ordered urine test to confirm or rule out . Negative 2. Abnormal uterine bleeding (AUB) (N93.9) Prolonged menstruation (N92.1) Patient has experienced prolonged menstruation, with bleeding lasting up to 30 days. No associated pruritus or malodorous discharge. Pelvic exam reveals a light amount of bleeding, cervix appears normal. - Ordered SIS - Cytotec RX - If ultrasound findings are unremarkable, will refer to a hormone specialist for further evaluation. 3. Polycystic ovarian syndrome (E28.2) Diagnosed with PCOS since age 15, characterized by irregular menstrual cycles. Recent increase in menstrual regularity coincides with onset of tachycardia episodes. Dowel Inspector has categorized patient as having lean PCOS and recommended progesterone therapy, which was deferred due to cardiac concerns. - Monitor ultrasound results for any structural abnormalities that may contribute to irregular bleeding. - If no abnormalities are found, consider hormonal management in consultation with a hormone specialist. 4. Postural orthostatic tachycardia syndrome (POTS) (G90.A) Diagnosed with POTS in February. Recent episodes of tachycardia with heart rates up to 192 bpm; extensive cardiac workup including echocardiogram and MRI showed no significant findings. Cardiology and electrophysiology teams have ruled out POTS as the cause of recent tachycardia episodes, suspecting hormonal imbalance as a potential trigger. - Continue to monitor cardiac symptoms in conjunction with cardiology. - Collaborate with hormone specialist to address potential hormonal triggers for tachycardia. PLAN - Hcg neg - SIS - if normal, refer to [facility] SIGNATURE: Carline Carson APRN.JULIAN Manager Clinical Services with Sari Fry MD Medical Decision Making: Problems: Moderate: New problem with uncertain prognosis Data: Unique test result(s) reviewed: 2 Unique test(s) ordered: 2 Risk: Moderate: Drug management Medical Decision Making Level: 4 - Moderate documented in this encounterK[facility]05-14-2025 NoteOhio[facility]05-08-2025 NoteOhio[facility]05-08-2025 History of Present illness Narrative* Sandra Hernandez - 11/15/2024 1:49 PM EDT UNIVERSAL PROTOCOL / SAFETY CHECKLIST Procedure to be Performed: ANS WITHOUT TILT Sign In: A Moment of CARE was completed. Appropriate PPE (Personal Protective Equipment) worn by all providers involved with the procedure. Special equipment not required. Patient/Surrogate Stated/Verified: Patient name, Date of , Relevant allergies, and The intended procedure Time Out: Relevant labs, photos, and/or imaging studies have been reviewed. Intended patient and procedure match the source document(s) (e.g. consent, H&P, associated studies [imaging, pathology]) match the intended patient and procedure. Correct side/site is not applicable. Medications required for this procedure are not applicable. Fire risk assessed and is not applicable. Implants: are not applicable. Sign Out: Specimens N/A No instruments, equipment, possible retained foreign bodies are accounted for. The post-procedure plan of care has been communicated to the patient or surrogate. documented in this encounterKettering [facility]05-01-2025 Progress note* Therapy (PT/OT/Speech/Resp) - Kimi Dinero CCC-CRYOLITE RECOVERY OPERATOR - 11/08/2024 3:52 PM EDT Program_ID:[id number] Access Code: [email or web address] URL: [email or web address] Date: 11-08-2024 Prepared By: Kimi Dinero Program Notes Exercises - Chen Maneuver - 1-2 x daily - 7 x weekly - 1 sets - 5-10 reps - Tongue Retraction - 1 x daily - 7 x weekly - 2-3 sets - 10 reps [facility]-01-[facility] Miscellaneous Notes* Therapy (PT/OT/Speech/Resp) - Kimi Dinero CCC-SLP - 11/08/2024 3:52 PM EDT Program_ID:[id number] Access Code: [email or web address] URL: [email or web address] Date: 11-08-2024 Prepared By: Kimi Dinero Program Notes Exercises - Chen Maneuver - 1-2 x daily - 7 x weekly - 1 sets - 5-10 reps - Tongue Retraction - 1 x daily - 7 x weekly - 2-3 sets - 10 reps documented in this encounterKettering [facility]05-01-2025 History of Present illness Narrative* Kimi Dinero CCC-SLP - 11/08/2024 3:15 PM EDT Images from the original note were not included. Episode Visit Count: 6 Therapist That Will Accept/Oversee The Plan Of Care: Kimi Dinero Start of Care Date: 07/19/24 Onset Date: 07/09/24 Plan of Care Certification Date: 11/02/24 Next Certification Due Date: 01/31/25 Patient Identified by Name and Date of : Yes REHABILITATION AND SPORTS THERAPY SPEECH THERAPY CLINICAL SWALLOW EVALUATION PLAN OF CARE: Impression: Communication deficits identified: Cognitive-Linguistic deficits Prognosis: Good Good: current objective clinical presentation Goals for Episode of Care: established 11/08/2024 SWALLOWING GOALS Demonstrate knowledge and use of compensatory swallowing strategies in order to reduce signs/symptoms of possible aspiration with a Regular Diet and Thin Liquids IDDSI Level 0 [id number] of trials. All goals to target the patient's overall ability to safely consume the highest appropriate diet level Time Frame for Goals and Treatment : 01/31/25 RECOMMENDATION: Diet Recommendations: Regular Consistency, Thin Liquids IDDSI Level 0 Swallowing Precautions Recommendations: Alternate bites and sips, Anti-Reflux precautions, Feed / Eat at a slow rate, Maintain an upright position 20-30 minutes following all oral intake, Sit [id number] degrees for all PO, Small Bite/Sip, Use extra moistening agents, Reduced bite size CRYOLITE RECOVERY OPERATOR Recommendations: Outpatient Speech Therapy Results and Recommendations Discussed With: Patient Planned Interventions, Frequency, and Duration: Current Frequency: 1x every other week Duration: 12 weeks SUGGESTED TREATMENT OBJECTIVES: Chen, tongue base retraction exercises, compensatory strategies PLAN FOR NEXT VISIT: cognitive overload strateiges, mental fatigue management, memory tasks/strategies, attention tasks/strategies, expressive language tasks/strategies Patient demonstrates good understanding of results, recommendations, goals and plan of care. Patient agreed with plan. SUBJECTIVE: Amie Braxton is a 29 year old female seen today for clinical swallowing assessment. Amie reported some difficulty swallowing, felt like she could not iniate swallow stating it felt like her brain forgot how to swallow. She has to spit the sweet potato out and then felt like she had the same difficulty swallowing water. This has happened a few times. [place] [facility] [place]Initiation Of Pharyngeal Swallow: Bolus head at pit of pyriforms, Bolus head at vallecular pit; trace column of contrast or air between tongue base and pharyngealwall ;trace residue within or on the pharyngeal structures) Relevant medical history/ comorbidities: Complaints of food items getting stuck: Yes Concern of swallow not initiating with po PROMIS Scales 10/20/2024 08/23/2024 08/14/2024 Speech Communication Score 65 65 Cognitve Function T-Score 24 (severe dysfunction) 26 (severe dysfunction) Cognitive Function Percentile 1 T-scores: mean of general population = 50. 5 points is clinically meaningfully difference Percentiles provide an indication of how the patient's score ranks in relation to the general population. Higher percentile rankings indicate better function/quality of life. 50th percentile is the average of the general population and indicates half of respondents had a worse score. OBJECTIVE MEASURES WITH LEVEL OF FUNCTION: Swallow Position Of Patient During Assessment: Upright In Chair Feeding Method: Patient Self-Fed Consistencies Presented: Thin Liquids IDDSI Level 0 Thin Liquids Pharyngeal Phase: Multiple Swallows Response to Swallow Interventions: strained voice following swallow, resolved with multiple swallows. Hulen Swallow Protocol: Pass Suspected Esophageal Deficits: Yes see GI notes Previous Swallow Study: [facility] (06/18/24;Initiation Of Pharyngeal Swallow: Bolus head at pit of pyriforms, Bolus head at vallecular pit; trace column of contrast or air between tongue base and pharyngealwall ;trace residue within or on the pharyngeal structures) Pharyngeal Exercises: Chen Maneuver, Other Exercises (tongue base retraction) TREATMENT: Evaluation: Swallow Eval Func (17352) Evaluation: Swallow Eval Func (77063) Swallow / Dysphagia (33443): Skilled Intervention: Provided education related to a typical swallowing mechanism in a compare and contrast manner compared to this patient's current skill set. , Educated and advised patient / caregiver on texture and liquid consistency recommendations., Instructed patient / caregiver on recommended compensatory strategies to maximize safety with oral intake while maintaining nutrition, hydration and medication stability. , Instruction provided in various swallowing manuevers which included: Chen Maneuver and tongue base retraction Billing: Clinical Swallow Evaluation (22505) and Dysphagia Treatment (06414) Total time / Length of visit: 45 minutes Session Start Time : 1510 Session Stop Time : 1555 Kimi Dinero CCC-CRYOLITE RECOVERY OPERATOR documented in this encounterK[facility]-01-2025 NoteOhiohealth [facility]04-29-2025 Instructions* Patient Instructions* Makenzie Lynn APRN.HORSE SHOER - 11/06/2024 7:11 AM EDT Thank you for seeing me in clinic today. As we discussed, my recommendations are as follows: 1.fiber daily Begin using 2 teaspoons of soluble fiber (e.g. Metamucil or Citrucel) in 12 oz of water every day. Stir until fiber has dissolved. If fiber is well-tolerated but does not completely regulate bowel movements after 1 week, add another teaspoon of fiber for a total of 3 teaspoons per day. Fiber works best if you are hydrated. Be sure to drink at least 64 oz of water every day. 2.increase water intake 3.MiraLAX 3-4 x per week 4.Proceed with breath test 5,Continue Pantoprazole 40 mg daily If you have any questions about the above treatment plan, please do not hesitate to call the officeor send me a [employer] message. documented in this encounterKettering [facility]04-29-2025 History and physical note * Makenzie Lynn APRN.CNP - 11/06/2024 7:00 AM EDT DISTANCE HEALTH VISIT This Team Access Model visit is a virtual encounter. It required patient- provider interaction for the medical decision making as documented below. REASON FOR VISIT: LUQ pain. HPI: Amie Braxton is a 29 year old female who presents for LUQ pain. She endorses a longstanding history of intermittent episodes of left upper quadrant pain and lower abdominal cramping. She admits to that her left upper quadrant pain described as a bloating and fullness has been worse since July. She is currently on pantoprazole 40 mg daily. She averages 1-2 BMs daily. She describes her stool assoft and endorses incomplete evacuation. Her last EGD was in April 2024 and unremarkable. She hada normal upper GI series in June. She has a lactulose breath test ordered by her PCP for evaluation of SIBO that has not yet been completed. She has a history of stool burden on previous CT scans. She denies regular NSAID use, smoking, alcohol intake and illicit drug use. She denies family history of GI tract disorders and malignancy. No previous abdominal pelvic surgeries. Past Clinical Work-Up: Upper GI XR 06/28/24: NORMAL UPPER GI. NORMAL SMALL BOWEL SERIES EGD 04/27/24: - Z-line regular, 35 cm from the incisors. - Normal esophagus. - Normal stomach. Biopsied. - Normal examined duodenum. Biopsied. - Biopsies were taken with a cold forceps for evaluation of eosinophilic esophagitis. ABD LTD 02/29/2024 Impression 1. Normal ultrasound of the abdomen CTAP WO IVCON 10/17/2022 IMPRESSION: Appendix not identified; otherwise no acute abnormalities seen in the abdomen or pelvis. Moderate stool burden. Latest Ref Rng 10/05/2024 10/06/2024 WBC 3.70 - 11.00 k/uL 7.02 6.22 RBC 3.90 - 5.20 m/uL 5.04 5.10 Hemoglobin 11.5 - 15.5 g/dL 15.2 15.5 Hematocrit 36.0 - 46.0 % 44.1 45.1 MCV 80.0 - 100.0 fL 87.5 88.4 MCH 26.0 - 34.0 pg 30.2 30.4 MCHC 30.5 - 36.0 g/dL 34.5 34.4 RDW-CV 11.5 - 15.0 % 12.4 12.5 Platelet Count 150 - 400 k/uL 337 296 MPV 9.0 - 12.7 fL 10.3 10.2 Absolute nRBC <0.01 k/uL <0.01 <0.01 ALLERGIES Allergen Reactions Beef Containing Pro* Intolerance migraines Migraines, upset stomach Beef Derived (Bovin* Hives Egg Derived GI Upset Vomiting even with ingredient of egg Milk Containing Pro* Intolerance, Hives Vomiting. Pineapple Hives, Swelling Hives, difficulty breathing Soy GI Upset vomiting Tree Nuts Other: See Comments Asthma flaring, difficulty breathing Vancomycin Analogues Hives PAST MEDICAL HISTORY Diagnosis Date Asthma (HCC) Generalized anxiety disorder Migraines PCOS (polycystic ovarian syndrome) POTS (postural orthostatic tachycardia syndrome) Tilt x2 ([facility], [facility]) Seasonal allergies Syncope PAST SURGICAL HISTORY Procedure Laterality Date TONSILLECTOMY & ADENOIDECTOMY FAMILY HISTORY Problem Relation Age of Onset other (palpitations) Mother stress No Known Problems Father No Known Problems Sister Skin Cancer Maternal Grandmother Diabetes Paternal Grandmother Social History Tobacco Use Smoking status: Never Smokeless tobacco: Never Vaping Use Vaping status: Never Used Substance Use Topics Alcohol use: Never Drug use: Never Current Outpatient Medications Medication Sig sertraline (ZOLOFT) 25 mg tablet Take 0.5 tablets by mouth once daily. ivabradine (CORLANOR) 5 mg tablet Take 2.5 mg by mouth two times a day. metoprolol tartrate, short acting, (LOPRESSOR) 25 mg tablet Take 0.5 tablets by mouth two times a day. amitriptyline (ELAVIL) 25 mg tablet Take 0.5 tablets by mouth daily at bedtime. hydrOXYzine HCl (ATARAX) 10 mg tablet Take 2 tablets by mouth every 6 hours as needed for anxiety. albuterol HFA (PROVENTIL HFA, VENTOLIN HFA) 90 mcg/actuation inhaler Inhale 1-2 Puffs as instructedevery 6 hours as needed for wheezing/shortness of breath. pantoprazole DR (PROTONIX) 40 mg tablet Take 1 tablet by mouth once daily. budesonide-formoterol (SYMBICORT) 160-4.5 mcg/actuation inhaler Inhale 2 Puffs as instructed two times a day. No current facility-administered medications for this visit. I have confirmed and edited, if necessary, the PFSH obtained by others. REVIEW OF SYSTEMS: GENERAL: No weight loss, malaise or fevers RESPIRATORY: Negative for cough, hemoptysis, wheezing, dyspnea or shortness of breath CARDIOVASCULAR: Negative for chest pain, leg swelling, or palpitations GI: See HPI PHYSICAL EXAM: General - Normal, healthy, cooperative, in no acute distress Able to interact verbally by video conference Psych - ORIENTATION: normal to time place, person and situation Mood/Affect: AFFECT AND MOOD: Normal Head/Neuro - Normal size and shape Facial appearance normal Pulmonary - respiratory effort normal Cardiovascular - patient describes extremities normal, warm, no cyanosis,no clubbing, and no edema Abdominal - Not performed Skin - abnormal lesions not visualized Motor - patient seen sitting with Normal appearing strength and coordination ASSESSMENT/PLAN: Ms. Braxton is a 29 year old female with a history of SIRS, IBS, PCOS, esophageal spasms and asthma presents for LUQ pain. She endorses a longstanding history of intermittent episodes of left upper quadrant pain and lower abdominal cramping. She admits to that her left upper quadrant pain described as a bloating and fullness has been worse since July. She is currently on pantoprazole 40 mg daily. She averages 1-2 BMs daily. She describes her stool as soft and endorses incomplete evacuation. Her last EGD was in April 2024 and unremarkable. She had a normal upper GI series in June. She has a lactulose breath test ordered by her PCP for evaluation of SIBO that has not yet been completed. I recommend proceeding with breath testing. I suspect her symptoms are related to underlying constipation given her history of stool burden on previous CT scans. I recommend starting a daily fiber supplement such as Citrucel and Metamucil daily. I also recommend adding MiraLAX 1 capful 3-4 times per week. The patient is agreeable with the above plan and encouraged to reach out with questions and concerns. 1. Irritable bowel syndrome with both constipation and diarrhea - ICD9: 564.1, ICD10: K58.2 - Metamucil or Citrucel daily - Increase water intake - MiraLAX 1 capful 3-4 times per week - Proceed with breath testing Total Time Spent: I spent a total of 20 minutes on the date of the service which included preparingto see the patient, [id number] patient care, completing clinical documentation, obtaining and/or reviewing separately obtained history, performing a medically appropriate examination, counseling and educating the patient/family/caregiver, ordering medications, tests, or procedures, communicating with other HCPs (not separately reported), independently interpreting results (not separately reported), communicating results to the patient/family/caregiver, and care coordination (not separately reported). This note was dictated using [employer] speech recognition software and may contain some errors that were a result of the program not accurately transcribing what was dictated. I have communicated my name and active licensure. The patient's identity and physical location wereverified at the time of this visit. Either the patient or their legal collections representative has been informed of the risks and benefits of -- and alternatives to -- treatment through a remote evaluation andconsents to proceed with the evaluation remotely. Makenzie Lynn APRN.CNP [facility]04-29-[facility] History and physical note* Makenzie Lynn APRN.CNP - 11/06/2024 7:00 AM EDT DISTANCE HEALTH VISIT This Team Access Model visit is a virtual encounter. It required patient- provider interaction for the medical decision making as documented below. REASON FOR VISIT: LUQ pain. HPI: Amie Braxton is a 29 year old female who presents for LUQ pain. She endorses a longstanding history of intermittent episodes of left upper quadrant pain and lower abdominal cramping. She admits to that her left upper quadrant pain described as a bloating and fullness has been worse since July. She is currently on pantoprazole 40 mg daily. She averages 1-2 BMs daily. She describes her stool assoft and endorses incomplete evacuation. Her last EGD was in April 2024 and unremarkable. She hada normal upper GI series in June. She has a lactulose breath test ordered by her PCP for evaluation of SIBO that has not yet been completed. She has a history of stool burden on previous CT scans. She denies regular NSAID use, smoking, alcohol intake and illicit drug use. She denies family history of GI tract disorders and malignancy. No previous abdominal pelvic surgeries. Past Clinical Work-Up: Upper GI XR 06/28/24: NORMAL UPPER GI. NORMAL SMALL BOWEL SERIES EGD 04/27/24: - Z-line regular, 35 cm from the incisors. - Normal esophagus. - Normal stomach. Biopsied. - Normal examined duodenum. Biopsied. - Biopsies were taken with a cold forceps for evaluation of eosinophilic esophagitis. ABD LTD 02/29/2024 Impression 1. Normal ultrasound of the abdomen CTAP WO IVCON 10/17/2022 IMPRESSION: Appendix not identified; otherwise no acute abnormalities seen in the abdomen or pelvis. Moderate stool burden. Latest Ref Rng 10/05/2024 10/06/2024 WBC 3.70 - 11.00 k/uL 7.02 6.22 RBC 3.90 - 5.20 m/uL 5.04 5.10 Hemoglobin 11.5 - 15.5 g/dL 15.2 15.5 Hematocrit 36.0 - 46.0 % 44.1 45.1 MCV 80.0 - 100.0 fL 87.5 88.4 MCH 26.0 - 34.0 pg 30.2 30.4 MCHC 30.5 - 36.0 g/dL 34.5 34.4 RDW-CV 11.5 - 15.0 % 12.4 12.5 Platelet Count 150 - 400 k/uL 337 296 MPV 9.0 - 12.7 fL 10.3 10.2 Absolute nRBC <0.01 k/uL <0.01 <0.01 ALLERGIES Allergen Reactions Beef Containing Pro* Intolerance migraines Migraines, upset stomach Beef Derived (Bovin* Hives Egg Derived GI Upset Vomiting even with ingredient of egg Milk Containing Pro* Intolerance, Hives Vomiting. Pineapple Hives, Swelling Hives, difficulty breathing Soy GI Upset vomiting Tree Nuts Other: See Comments Asthma flaring, difficulty breathing Vancomycin Analogues Hives PAST MEDICAL HISTORY Diagnosis Date Asthma (HCC) Generalized anxiety disorder Migraines PCOS (polycystic ovarian syndrome) POTS (postural orthostatic tachycardia syndrome) Tilt x2 ([facility], [facility]) Seasonal allergies Syncope PAST SURGICAL HISTORY Procedure Laterality Date TONSILLECTOMY & ADENOIDECTOMY <AGE 14 FAMILY HISTORY Problem Relation Age of Onset other (palpitations) Mother stress No Known Problems Father No Known Problems Sister Skin Cancer Maternal Grandmother Diabetes Paternal Grandmother Social History Tobacco Use Smoking status: Never Smokeless tobacco: Never Vaping Use Vaping status: Never Used Substance Use Topics Alcohol use: Never Drug use: Never Current Outpatient Medications Medication Sig sertraline (ZOLOFT) 25 mg tablet Take 0.5 tablets by mouth once daily. ivabradine (CORLANOR) 5 mg tablet Take 2.5 mg by mouth two times a day. metoprolol tartrate, short acting, (LOPRESSOR) 25 mg tablet Take 0.5 tablets by mouth two times a day. amitriptyline (ELAVIL) 25 mg tablet Take 0.5 tablets by mouth daily at bedtime. hydrOXYzine HCl (ATARAX) 10 mg tablet Take 2 tablets by mouth every 6 hours as needed for anxiety. albuterol HFA (PROVENTIL HFA, VENTOLIN HFA) 90 mcg/actuation inhaler Inhale 1-2 Puffs as instructedevery 6 hours as needed for wheezing/shortness of breath. pantoprazole DR (PROTONIX) 40 mg tablet Take 1 tablet by mouth once daily. budesonide-formoterol (SYMBICORT) 160-4.5 mcg/actuation inhaler Inhale 2 Puffs as instructed two times a day. No current facility-administered medications for this visit. I have confirmed and edited, if necessary, the PFSH obtained by others. REVIEW OF SYSTEMS: GENERAL: No weight loss, malaise or fevers RESPIRATORY: Negative for cough, hemoptysis, wheezing, dyspnea or shortness of breath CARDIOVASCULAR: Negative for chest pain, leg swelling, or palpitations GI: See HPI PHYSICAL EXAM: General - Normal, healthy, cooperative, in no acute distress Able to interact verbally by video conference Psych - ORIENTATION: normal to time place, person and situation Mood/Affect: AFFECT AND MOOD: Normal Head/Neuro - Normal size and shape Facial appearance normal Pulmonary - respiratory effort normal Cardiovascular - patient describes extremities normal, warm, no cyanosis,no clubbing, and no edema Abdominal - Not performed Skin - abnormal lesions not visualized Motor - patient seen sitting with Normal appearing strength and coordination ASSESSMENT/PLAN: Ms. Braxton is a 29 year old female with a history of SIRS, IBS, PCOS, esophageal spasms and asthma presents for LUQ pain. She endorses a longstanding history of intermittent episodes of left upper quadrant pain and lower abdominal cramping. She admits to that her left upper quadrant pain described as a bloating and fullness has been worse since July. She is currently on pantoprazole 40 mg daily. She averages 1-2 BMs daily. She describes her stool as soft and endorses incomplete evacuation. Her last EGD was in April 2024 and unremarkable. She had a normal upper GI series in June. She has a lactulose breath test ordered by her PCP for evaluation of SIBO that has not yet been completed. I recommend proceeding with breath testing. I suspect her symptoms are related to underlying constipation given her history of stool burden on previous CT scans. I recommend starting a daily fiber supplement such as Citrucel and Metamucil daily. I also recommend adding MiraLAX 1 capful 3-4 times per week. The patient is agreeable with the above plan and encouraged to reach out with questions and concerns. 1. Irritable bowel syndrome with both constipation and diarrhea - ICD9: 564.1, ICD10: K58.2 - Metamucil or Citrucel daily - Increase water intake - MiraLAX 1 capful 3-4 times per week - Proceed with breath testing Total Time Spent: I spent a total of 20 minutes on the date of the service which included preparingto see the patient, [id number] patient care, completing clinical documentation, obtaining and/or reviewing separately obtained history, performing a medically appropriate examination, counseling and educating the patient/family/caregiver, ordering medications, tests, or procedures, communicating with other HCPs (not separately reported), independently interpreting results (not separately reported), communicating results to the patient/family/caregiver, and care coordination (not separately reported). This note was dictated using [employer] speech recognition software and may contain some errors that were a result of the program not accurately transcribing what was dictated. I have communicated my name and active licensure. The patient's identity and physical location wereverified at the time of this visit. Either the patient or their legal collections representative has been informed of the risks and benefits of -- and alternatives to -- treatment through a remote evaluation andconsents to proceed with the evaluation remotely. Makenzie Lynn APRN.JULIAN documented in this encounterKettering [facility]04-25-2025 NoteOhiohealth [facility]04-25-2025 NoteOhio[facility]04-23-2025 Instructions* Patient Instructions* Cherri Newman RD - 10/31/2024 2:15 PM EDT [facility] EMERGENCY DEPARTMENT MEDICINE FOLLOW UP NUTRITION INSTRUCTIONS Nutrition Follow-up: In as needed with Cherri Newman RD. Your Prescribed Nutrition Plan: Continue Following GF Low Histamine and Low Fodmap Food Plans Until SIBO and Histamine Tests are Completed. Incorporate eating strategies to aid digestion: Take 5 before a meal Eat slowly and chew food well Maintain a calm eating environment Promote motility with adequate fluids & regular activity Give digestion a head start Soft meats: cooked in broth, fluid Ground meats Fish Eggs Soak and/or cook beans longer; Try mashed or pureed beans Cook (steam, sautee) or blend vegetables to improve digestibility Choose nut/seed butters or powders, instead of whole nuts & seeds Soak nuts and seeds Incorporate gentle movement after meals to aid digestion: [email or web address].com/poses/nxch-oj-jzcxery/digestion 3. Proper stomach acid is needed to break down food and absorb nutrients from food. If stomach acid production is too low, nutrients cannot be absorbed efficiently. One way to gain insight into stomach acid production is through the Baking Soda Test. This is not a diagnostic test, but can provide helpful insight about stomach acid. For the test, drink half a glass (4 ounces) of cold water combined with a quarter teaspoon of baking soda, on an empty stomach. Be sure to mix thoroughly and drink fairly quickly. Then time how long it takes to burp. If it takes longer than three to five minutes, this may be an indication that stomach acid is low. Do this test for 4-5 consecutive days to get an accurate read. Record each timestamp for future reference. Results can be reviewed with your dietitian at a follow up visit. 4. Space out sodium 1000 mg every 4 hours. Or have [id number] mg by 1pm (or whenever midday is for you). The betancur is to avoid having large amounts of sodium 1 sitting, but to spread it out throughout the day. 5. Aim for 50-60g protein per day, or 20g 3x day. 6. Aim 25 g fiber per day, aim for 8-9 g per meal. Veggies Fruits Seeds Beans Salads 7. Freeze leftovers to limit histamine, or if refrigerated, consume in under 24 hours. ADDITIONAL INSTRUCTIONS: How to Contact Your Functional Medicine Team (Open M-F 8am-5pm): 1. MyChart is the BEST form of communication to reach the Functional Medicine Team, see test results and request refills. Please allow 72 business hours for a response. Directions for signing up are included in your New Patient Folder. (Or you can go to [email or web address]) 2. For nutrition related questions or concerns, [employer] message your physician and include Attn: Cherri Newman RD at the top of the message. [employer] messaging is meant to support implementation of previously outlined nutrition care plans. In the interest of safe, effective and personalized care, you are asked to schedule a follow-up appointment if: It has been >6 months since your last nutrition appointment Your question requires reassessment or involves a new plan of care Your question concerns a new diagnosis, symptoms(s) and/or health concern documented in this encounterKettering Health [facility]ble04-23-2025 NoteOhiohealth [facility]04-23-2025 History of Present illness Narrative* Cherri Newman RD - 10/31/2024 1:04 PM EDTSummary: results [facility] Functional Medicine Nutrition Therapy: Initial Assessment (Individual) VIRTUALVISITPN I have communicated my name and active licensure. The patient's identity and physical location wereverified at the time of this visit. Either the patient or their legal collections representative has been informed of the risks and benefits of -- and alternatives to -- treatment through a remote evaluation andconsents to proceed with the evaluation remotely. Patient is located in the [facility] at the time of the virtual visit. Patient Name: Amie Braxton Past Medical History: PAST MEDICAL HISTORY Diagnosis Date Asthma (HCC) Generalized anxiety disorder Migraines PCOS (polycystic ovarian syndrome) POTS (postural orthostatic tachycardia syndrome) Tilt x2 ([facility]) Seasonal allergies Syncope Allergies: Beef Containing Products, Beef Derived (Bovine), Egg Derived, Milk Containing Products (Dairy), Pineapple, Soy, Tree Nuts, and Vancomycin Analogues Current Medications/Supplements Current Outpatient Medications on File Prior to Visit Medication Sig sertraline (ZOLOFT) 25 mg tablet Take 0.5 tablets by mouth once daily. ivabradine (CORLANOR) 5 mg tablet Take 2.5 mg by mouth two times a day. metoprolol tartrate, short acting, (LOPRESSOR) 25 mg tablet Take 0.5 tablets by mouth two times a day. amitriptyline (ELAVIL) 25 mg tablet Take 0.5 tablets by mouth daily at bedtime. hydrOXYzine HCl (ATARAX) 10 mg tablet Take 2 tablets by mouth every 6 hours as needed for anxiety. albuterol HFA (PROVENTIL HFA, VENTOLIN HFA) 90 mcg/actuation inhaler Inhale 1-2 Puffs as instructedevery 6 hours as needed for wheezing/shortness of breath. pantoprazole DR (PROTONIX) 40 mg tablet Take 1 tablet by mouth once daily. budesonide-formoterol (SYMBICORT) 160-4.5 mcg/actuation inhaler Inhale 2 Puffs as instructed two times a day. No current facility-administered medications on file prior to visit. Primary ICD-10 Diagnosis Addressed: POTS (postural orthostatic tachycardia syndrome) [G90.A] Provider Nutrition Notes:Per corporate tax manager Chief Concerns: 1. Lifelong gut issues 2. Tachycardia 3. POTS 4. PCOS 5. IC Nutrition Assessment (10/31/24) Digestive symptoms: Yes Diarrhea Bloating Other relevant symptoms: Hives Pt was advised to take 6000 mg sodium daily-diarrhea Drinks 100 oz water daily Now aiming for 9948-5306 mg daily [place] calories quickly, has trouble gaining weight, but does not want to gain Food and Nutrition History (special diet(s) or nutritional program): Follows Low fodmap, low histamine, low sugar, GF recommendations from CC website Adverse Reactions to Foods: Yes After eating - feels worse, 3 small meals and snacks Sugar- bladder flare ups/UTI symptoms, face is hot, raises BP Diet Recall: Yes 24 Hour Recall Breakfast: raisin bran, pea milk or flax milk Lunch: 2 large drumsticks (or 4 mini wings), cumin, salt, garlic, avocado oil, broccoli, salt, Dinner: ground turkey, sweet potatoes, black beans Snacks: good kind chips, 1 cup coconut yogurt, plant based protein shake owyn 30g protein Beverages: 1-2 electrolyte packets Biochemical and Laboratory Data Conventional/Advanced Testing Latest Reference Range & Units 10/06/24 02:36 Sodium 136 - 144 mmol/L 132 (L) Potassium 3.7 - 5.1 mmol/L 3.7 Chloride 98 - 107 mmol/L 100 CO2 22 - 30 mmol/L 21 (L) BUN 7 - 21 mg/dL 10 Creatinine 0.58 - 0.96 mg/dL 0.69 Glucose 74 - 99 mg/dL 77 Calcium 8.5 - 10.2 mg/dL 9.2 Anion Gap 8 - 15 mmol/L 11 eGFR >=60 mL/min/1.73m 122 WBC 3.70 - 11.00 k/uL 6.22 RBC 3.90 - 5.20 m/uL 5.10 Hemoglobin 11.5 - 15.5 g/dL 15.5 Hematocrit 36.0 - 46.0 % 45.1 Platelet Count 150 - 400 k/uL 296 MCV 80.0 - 100.0 fL 88.4 MCH 26.0 - 34.0 pg 30.4 MCHC 30.5 - 36.0 g/dL 34.4 MPV 9.0 - 12.7 fL 10.2 RDW-CV 11.5 - 15.0 % 12.5 Absolute nRBC <0.01 k/uL <0.01 (L): Data is abnormally low Laboratory Values Addressed: Relevant Items in Bold Anthropometrics LMP 08/24/2024 (Approximate) Last Height: Last 1 Encounter Ht Readings: Date: Ht: 10/30/2024 154.9 cm (5' 1) Last Weight: Last Wt 10/30/24 : 47.6 kg (104 lb 15 oz) 10/11/24 : 47.2 kg (104 lb 0.9 oz) 10/01/24 : 47.6 kg (105 lb) Wt: 47.6 kg (104 lb 15 oz) BMI: 19.83 kg/(m^2) Nutrition Prescription: Energy: Resting Metabolic Rate: 1149 Protein: 0.8g/kg Nutrients of Concern: protein, fiber Nutrition Diagnosis: Altered GI Difficulty related to unknown etiology as evidenced by gut issues Learning Needs Assessment: Barriers to Learning: Ready learn Assessed motivation to learn: high Nutrition Intervention 10/31/2024: Continue Following GF Low Histamine and Low Fodmap Food Plans Until SIBO and Histamine Tests are Completed. Incorporate eating strategies to aid digestion: Take 5 before a meal Eat slowly and chew food well Maintain a calm eating environment Promote motility with adequate fluids & regular activity Give digestion a head start Soft meats: cooked in broth, fluid Ground meats Fish Eggs Soak and/or cook beans longer; Try mashed or pureed beans Cook (steam, sautee) or blend vegetables to improve digestibility Choose nut/seed butters or powders, instead of whole nuts & seeds Soak nuts and seeds Incorporate gentle movement after meals to aid digestion: https://www.yogajournal.com/poses/tgdz-xk-pmhsssq/digestion 3. Proper stomach acid is needed to break down food and absorb nutrients from food. If stomach acid production is too low, nutrients cannot be absorbed efficiently. One way to gain insight into stomach acid production is through the Baking Soda Test. This is not a diagnostic test, but can provide helpful insight about stomach acid. For the test, drink half a glass (4 ounces) of cold water combined with a quarter teaspoon of baking soda, on an empty stomach. Be sure to mix thoroughly and drink fairly quickly. Then time how long it takes to burp. If it takes longer than three to five minutes, this may be an indication that stomach acid is low. Do this test for 4-5 consecutive days to get an accurate read. Record each timestamp for future reference. Results can be reviewed with your dietitian at a follow up visit. 4. Space out sodium 1000 mg every 4 hours. Or have 7904-9585 mg by 1pm (or whenever midday is for you). The betancur is to avoid having large amounts of sodium 1 sitting, but to spread it out throughout the day. 5. Aim for 50-60g protein per day, or 20g 3x day. 6. Aim 25 g fiber per day, aim for 8-9 g per meal. Veggies Fruits Seeds Beans Salads 7. Freeze leftovers to limit histamine, or if refrigerated, consume in under 24 hours. Current Nutrition Goal(s): reduce diet-related inflammation or food sensitivities suspected as symptom trigger and promote balanced macronutrient intake Food Plan: GF, Low Fodmap, Low Histamine Resources/Educational Materials embedded above Adherence Potential to Goals/Care Plan: High Nutrition Monitoring & Evaluation: Adherence to food plan, changes in symptom frequency and intensity, nutrition-related laboratory data, adjust food plans pending SIBO and Histamine tests Criteria: Laboratory Data, MSQ, Dietary Recall Follow up: as needed Time Spent with patient: 45 minutes Consult Billing Type: Initial assessment/15 minutes, 3 increment(s), 45 minutes Number of Increments: 3 (45 minutes) Referred/Supervised by: [id number]: Nel Girard MD Signed by: Cherri Newman RD documented in this encounterK[facility] Instructions* Patient Instructions* Nel Anderson MD - 10/30/2024 9:25 AM EDT Plan and Lifestyle Prescription Plan/Instructions/Resources: We discussed your concerns about dizziness, inappropriate tachycardia, and your history of POTS: - You are scheduled to complete additional autonomic testing with the neuromuscular center. Your next test is on November 15. Please proceed with this testing as planned. - I recommend holding off on probiotics for now, as they may worsen symptoms if small intestinal bacterial overgrowth (SIBO) is present. - Schedule a breath test with the GI department to evaluate for SIBO. Instructions for scheduling and preparation will be provided. Stop probiotics before the test. - Begin taking L-glutamine powder (LifeExtension or Pure Encapsulations brands are recommended) to help repair your gut barrier. Start with a small dose and work up to 2 grams twice daily, mixed withwater and taken with meals. Continue for 3 months. - Start taking Quercetin, a supplement that may help stabilize mast cells and reduce histamine-related symptoms. Follow the dosing instructions on the product label. - Consider reviewing information on low-dose naltrexone (LDN), which may help reduce inflammation, histamine reactions, and autonomic dysfunction. This medication requires compounding and is not covered by insurance. Details for a pharmacy in [place] are included in your plan for review. We can discuss this further at your next visit if you are interested. We discussed your dietary concerns and food sensitivities: - Your current diet appears well-balanced and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 with the neuromuscular center. Your next test is on November 15. Please proceed with this testing as planned. - I recommend holding off on probiotics for now, as they may worsen symptoms if small intestinal bacterial overgrowth (SIBO) is present. - Schedule a breath test with the GI department to evaluate for SIBO. Instructions for scheduling and preparation will be provided. Stop probiotics before the test. - Begin taking L-glutamine powder (LifeExtension or Pure Encapsulations brands are recommended) to help repair your gut barrier. Start with a small dose and work up to 2 grams twice daily, mixed withwater and taken with meals. Continue for 3 months. - Start taking Quercetin, a supplement that may help stabilize mast cells and reduce histamine-related symptoms. Follow the dosing instructions on the product label. - Consider reviewing information on low-dose naltrexone (LDN), which may help reduce inflammation, histamine reactions, and autonomic dysfunction. This medication requires compounding and is not covered by insurance. Details for a pharmacy in [place] are included in your plan for review. We can discuss this further at your next visit if you are interested. We discussed your dietary concerns and food sensitivities: - Your current diet appears well-balanced and consistent. Continue avoiding foods you are allergic/sensitive to, including dairy, nuts, beef, soy, eggs, pineapple, gluten, artificial sugars, and dyes. - If SIBO is confirmed, dietary adjustments may be recommended. A dietitian can assist with this after testing is complete. We discussed your recent symptoms of flushing, bloating, and inconsistent stools: - I suspect histamine intolerance and/or SIBO may be contributing to these symptoms. Testing for histamine markers (tryptase) and SIBO will help guide treatment. - start quercetin. We discussed your history of stress, trauma, and its impact on your health: - Chronic stress and past trauma may be contributing to your symptoms. I recommend exploring the Dynamic Neural Retraining System (DNRS), a program designed to help with chemical sensitivities and autonomic dysfunction. Information is included in your plan for review. - You may also benefit from working with a health health care coach for mindfulness training, stress management, or other wellness goals. This service is free and available virtually. You can schedule with a health care coach at the front office medical assistant. We discussed additional testing: - Blood tests were ordered today to check for histamine markers (tryptase), IgE (allergy marker), Lyme disease, and reactivation of viruses (Luis-Tesfaye/mono and HHV-6/roseola) that may contribute to your symptoms. - A cortisol test is recommended to evaluate adrenal function. This test must be done before 9:00 AM and while fasting. Please schedule this test when convenient. - I, f the cortisol test is abnormal, I will refer you to an mobility architect for further evaluation. Follow-up: - Schedule a follow-up visit with me in 2-3 months, ideally after completing the breath test and cortisol test, so we can review results and discuss next steps. - If your symptoms worsen or you have any new concerns, please contact our office. It was nice to meet you, and I look forward to working with you on your care plan. - Functional medicine is a specialty practice. Please continue/ establish care with your PCP. - Please note, we will need to see you in-person at least once a year to be able to offer virtual visits. - Labs today. We will discuss the results on your next visit. If there are actionable results before that, I will reach out via [employer]. - Labs fasting, draw before 9am at a [facility] lab close to you. - Breath test ordered to evaluate for SIBO (small intestine bacterial overgrowth)- please follow the instructions on the paper form provided on your visit to schedule the test. We will review resultson your next visit. - Schedule an appointment with a Functional Medicine Registered Dietitianto discuss the diet- 1:1- low histamine Please schedule with one of our Registered Dietitians for 1:1 nutrition support. To schedule, call and select option 1. Supplements/medications: Please start the following in order, one at a time, wait 3 days before adding the next one and continue taking them until our next visit (or as instructed). If you react to a supplement/medication, stop them and go to the next one on the list. Common OTC brands to consider: Doctor's Best, NOW, Allan, Garden of Life. Life Extension. - L-Glutamine powder, 2 grams twice a day- dissolved in water for 3 months (Pure Encapsulations or Life Extension) to support GI lining repair. Take it with meals. - Quercetin- 500mg- 1 capsule twice a day (Pure encapsulations)- to support immune function/histamine reactions - Trial of low-dose naltrexone or LDN to modulate the function of your immune system (inflammation). You can find more information about LDN at https://ldnresearchtrust.org/ I am ordering LDN 2 mg tablets - start taking half tablet (1 mg) at bedtime. If you tolerate it well increase by 1 mg every 10 days up to 4 mg at bedtime and continue until your next visit. Effect is slow, may start noticing symptom changes after 1 month on the full dose- our goal is to try it for at least 6 months. Main side effects are somnolence, usually not an issue when taking at bedtime. If you have vivid dreams or nightmares you can change it to morning time. [facility] [place] - Insurance may not cover this medication, please contact the pharmacy for pillai and shipping (phone ) - Consider DNRS program- Dynamic Neural Retraining System- for chemical sensitivities- [email or web address] Medications/Supplements Recommended: No orders of the defined types were placed in this encounter. Discussed the functional approach serves as an adjunct to patients current treatment regimen with subspecialties and PCP. Will obtain lab eval to evaluate for underlying micronutrient deficiencies, inflammation, and assess for dysbiosis. Pt aware that they will be contacted with critical results via [employer]. Additional supplement and lab interpretation to be discussed at follow up. Please continue to follow up with your PCP for preventative health maintenance and acute concerns Social Media Sr Strategy Manager and Health Wheel Blocker: Please follow up with a one on one appointment with corporate tax manager andhealth health care coach in to help implement plan. LIFESTYLE PRESCRIPTION Functional Nutrition: Schedule an appointment with a Functional Medicine Registered Dietitian. Please schedule with one of our Registered Dietitians for 1:1 nutrition support. To schedule, call and select option 1. 1:1 low histamine At [facility], we focus on the person as a whole. Mind, Body, and Spirit. Our Health Coaches are here to support you along this journey. Health Coaching is a valuable (& FREE) service at the [facility] which we offer to all of our patients. Their role is to help you put your functional medicine care plan into action and help you achieve your health goals. Working with your Health Wheel Blocker on a regular basis can help you prioritize your next steps and build a strong foundation for healing. Your Health Wheel Blocker will partner with you to develop a personalized plan for movement, sleep, and stress management. Health Coaching: Within the next two weeks, please schedule with your Health Wheel Blocker in order to create an individualized lifestyle plan. You can call to schedule. Exercise and Movement: Being consistently active helps you to live longer, have a better quality of life, improve your mental health, and improve your self-image. No matter your current activity level, there is a form of movement for you! Our Health Coaches can share valuable resources, provide accountability, help with goal setting, and offer encouragement! Sleep Health: Getting a good night s sleep is not just about quantity, but also quality. Both are critical to helping the body and mind repair and replenish from the day s activities. Among the many health benefits, a good night s sleep helps improve memory, boost the immune system, enhance mood, lower stress hormones and can even reduce pain! Learn how to protect your sleep with one of our Health Coaches. Your body and mind will thank you! Stress Resilience and Yarsanism: Don t let stress run the show! In a world full of stress and demands, practicing self-care through restorative activities is critical. Restorative activities, such as meditation, guided imagery, breathing techniques, gratitude journaling, and mindfulness, are proven ways to not just calm the mind, but also heal the body. During your health coaching appointment, you ll be able to build valuable skills that will help younot just manage stress, but thrive! Referrals: Behavioral Health Therapist: If I recommended counseling or individual therapy, please schedule an individual appointment with our Functional Medicine Behavioral Health Therapist after your visit today. A Behavioral Health Therapist helps patients identify and understand feelings and behaviors, experience the process of makingpositive change, and gain healthy coping skills. Our Behavioral Health Therapist specializes in both traditional and holistic psychotherapy. During the next 8-12 weeks you'll be working on your diet plan discussed with our corporate tax manager, allowing for gentle detoxification and decreasing inflammation - while we are gathering your lab results and combining those with your complete history to formulate a very personalized treatment plan. LAB results: Due to the complexity of the testing performed, we are not able to review labs via MyChart or over the phone, but please know, if any of your labs are critical we will contact you. Otherwise, we will review all your labs at your next visit. We will go over a lot of information during your follow up visit - so please be well-rested. Also make sure to schedule with the corporate tax manager (this will not happen automatically). Nel Girard MD Time spent with patient: I spent a total of 70 minutes on the date of the service which included preparing to see the patient, [id number] patient care, completing clinical documentation, obtaining and/or reviewing separately obtained history, performing a medically appropriate examination, counseling and educating the pat ient/family/caregiver, and ordering medications, tests, or procedures. The patient consented to the use of ambient [employer] software for draft documentation of the visit consistent with [facility] Notice of Privacy Practices. documented in this encounterK[facility]04-22-[facility] History of Present illness Narrative* Lorena Leblancy - 10/25/2024 8:08 AM EDT UNIVERSAL PROTOCOL / SAFETY CHECKLIST Procedure to be Performed: QSART Sign In: A Moment of CARE was completed. Appropriate PPE (Personal Protective Equipment) worn by all providers involved with the procedure. Special equipment not required. Patient/Surrogate Stated/Verified: Patient name, Date of , Relevant allergies, and The intended procedure Time Out: Relevant labs, photos, and/or imaging studies are not applicable. Intended patient and procedure match the source document(s) (e.g. consent, H&P, associated studies [imaging, pathology]) are not applicable. Consent obtained and matches the intended procedure. Correct side/site is not applicable. Medications required for this procedure are verified. Fire risk assessed and is not applicable. Implants: are not applicable. Sign Out: Specimens not collected. All instruments, equipment, possible retained foreign bodies are accounted for. The post-procedure plan of care has been communicated . documented in this encounterK[facility]04-14-2025 [facility]04-14-[facility] History of Present illness Narrative* Blessing Wright, SHANE - 10/22/2024 12:48 PM EDT VIDEONYSTAGMOGRAPHY (VNG) REPORT AUDIOLOGY VESTIBULAR EVAL Patient: Amie Braxton Birthdate: 1995 Ordering Provider: Yang Workman PA-C Test date/Time: October 22, 2024 12:48 PM Business Ethics Professor: Ban Wright IMPRESSIONS: Normal Study Patient is negative for baseline nystagmus and or position provoked nystagmus consistent with peripheral vestibular involvement. All tests for central vestibular involvement measure WNL. RECOMMENDATIONS: 1. ENT to review and follow HISTORY/CHIEF COMPLAINT (per pt report) 29 yo c/o of fluctuating bouts of vertigo/dizziness/imbalance since suffering from COVID in 2019. She states, since last fall symptoms have become severe. She is dizzy today. It is constant. Quick body repositioning exacerbates her c/o. She feels her hearing is diminished on her left side. Recent audiogram reveals normal symmetric hearing. Pt has a past history of a neck injury. 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 All imaging studies have been negative. She is being tested for POTS. PAST MEDICAL HISTORY Diagnosis Date Asthma (HCC) Generalized anxiety disorder Migraines PCOS (polycystic ovarian syndrome) POTS (postural orthostatic tachycardia syndrome) Tilt x2 ([facility]) Seasonal allergies Syncope RESULTS: Spontaneous: Normal negative for nystagmus with and without fixation Gaze: Normal negative for gaze evoked nystagmus. Saccades: Normal for horizontal random deviations. Tracking: Normal for smooth pursuit at increasing speeds. OKN: Normal for tracking OKN stimuli. Neck torsion: Normal negative for nystagmus with sitting head turns. [place]/Lean: Normal negative for nystagmus with vertical head turns. Vibration: Normal negative for enhanced nystagmus with bilateral stim. Headshake: Normal negative for nystagmus follow headshake. [place]: Normal negative for nystagmus consistent with posterior canalithiasis/BPPV. Back 30 deg/Lateral: Normal negative for nystagmus consistent with horizontal canal BPPV 30 deg. Head Roll: Normal negative for nystagmus with bilateral head rolls Supine/Lateral: Normal negative for nystagmus in the supine and or lateral head turns Calorics: Normal symmetric measurements to bilateral cold air irrigations. Fixation Suppression: Normal suppression of bilateral caloric response. documented in this encounterKet[facility]04-04-2025 Telephone encounter Note * Telephone Encounter - Sanjana Novoa LPN - 10/12/2024 3:05 PM EDT Patient's request for medication is as follows: Requested Prescriptions Refused Prescriptions Disp Refills bisoprolol (ZEBETA) 5 mg tablet [Pharmacy Med Name: BISOPROLOL FUMARATE 5 MG TAB] 90 tablet 1 Sig: TAKE 1 TABLET BY MOUTH EVERY DAY Refused By: SANJANA NOVOA Reason for Refusal: A Refill not appropriate Spoke to Amie Braxton and she states no longer taking and it was changed to Metoprolol. Message sent to pharmacy: Pt states no longer taking. Replaced by Metoprolol. Prescription(s) as above. Please process accordingly. Sanjana Novoa LPN [facility]04-04-2025 Miscellaneous Notes* Telephone Encounter - Sanjana Novoa LPN - 10/12/2024 3:05 PM EDT Patient's request for medication is as follows: Requested Prescriptions Refused Prescriptions Disp Refills bisoprolol (ZEBETA) 5 mg tablet [Pharmacy Med Name: BISOPROLOL FUMARATE 5 MG TAB] 90 tablet 1 Sig: TAKE 1 TABLET BY MOUTH EVERY DAY Refused By: SANJANA NOVOA Reason for Refusal: A Refill not appropriate Spoke to Amie Braxton and she states no longer taking and it was changed to Metoprolol. Message sent to pharmacy: Pt states no longer taking. Replaced by Metoprolol. Prescription(s) as above. Please process accordingly. Sanjana Novoa LPN * Telephone Encounter - Sanjana Novoa LPN - 10/12/2024 8:40 AM EDT Attempted to call Amie Braxton to clarify if patient is taking Bisoprolol but no answer and unableto leave a message. Medication discontinued off of medication during an office visit with a different provider on 09/05/2024. Sanjana Novoa LPN documented in this [facility] Telephone encounter Note * Telephone Encounter - Sanjana Novoa LPN - 10/12/2024 8:40 AM EDT Attempted to call Amie Braxton to clarify if patient is taking Bisoprolol but no answer and unableto leave a message. Medication discontinued off of medication during an office visit with a different provider on 09/05/2024. Sanjana Novoa LPN [facility]04[facility] Telephone encounter Note* Telephone Encounter - Melva Leblanc - 10/11/2024 1:43 PM EDT Spoke with AMIE on 10/11 regarding testing and medication instructions. PT WANTED TO KNOW MEDICATIONS NEEDED TO STOP FOR ANS W/O TILT TO POSSIBLY TAKE SOONER APPT. The medication(s) listed below will need to be stopped prior to Autonomic testing. Patient was instructed to contact their prescribing physician to ensure it is safe to discontinue the medication(s) and to receive the proper tapering instructions, if necessary. Patient instructed to not discontinueany medications without consulting their prescribing physician. [facility] recommended the following medication discontinuation lengths andinstructions: GAVE PT NAMES OF THE 4 MEDICATIONS THAT NEED HELD amitriptyline (ELAVIL) hydrOXYzine HCl (ATARAX) ivabradine (CORLANOR) metoprolol tartrate, short acting, (LOPRESSOR) for 48 HOURS prior to testing No Cannabidiol (CBD) oil or inhaled marijuana 7 days prior to testing No OVER THE COUNTER cold and cough medications, antihistamines, allergy medications, aspirin, or diuretics 48 hours prior to testing No alcohol 14 hours prior to testing No smoking/vaping or any form of nicotine 4 hours prior to testing No food or drinks that contain caffeine 4 hours prior to testing No lotion the day of testing Wear loose clothing in order to have arms and legs accessible for testing Bring your medications with you to take after the test, if necessary [facility]04-03-2025 Miscellaneous Notes* Telephone Encounter - Melva Lebalnc - 10/11/2024 1:43 PM EDT Spoke with AMIE on 10/11 regarding testing and medication instructions. PT WANTED TO KNOW MEDICATIONS NEEDED TO STOP FOR ANS W/O TILT TO POSSIBLY TAKE SOONER APPT. The medication(s) listed below will need to be stopped prior to Autonomic testing. Patient was instructed to contact their prescribing physician to ensure it is safe to discontinue the medication(s) and to receive the proper tapering instructions, if necessary. Patient instructed to not discontinueany medications without consulting their prescribing physician. [facility] recommended the following medication discontinuation lengths andinstructions: GAVE PT NAMES OF THE 4 MEDICATIONS THAT NEED HELD amitriptyline (ELAVIL) hydrOXYzine HCl (ATARAX) ivabradine (CORLANOR) metoprolol tartrate, short acting, (LOPRESSOR) for 48 HOURS prior to testing No Cannabidiol (CBD) oil or inhaled marijuana 7 days prior to testing No OVER THE COUNTER cold and cough medications, antihistamines, allergy medications, aspirin, or diuretics 48 hours prior to testing No alcohol 14 hours prior to testing No smoking/vaping or any form of nicotine 4 hours prior to testing No food or drinks that contain caffeine 4 hours prior to testing No lotion the day of testing Wear loose clothing in order to have arms and legs accessible for testing Bring your medications with you to take after the test, if necessary documented in this encounterCleveland [id number] Instructions* Patient Instructions* Daniel Guerrero DO - 10/11/2024 1:04 PM EDT - Continue taking Atarax (hydroxyzine) as needed for anxiety, but prepare to discontinue 2 days before your QSART test on the . - Continue taking Zoloft at your current dose; delay any increase until after your QSART test. - Continue taking Evabradine 2.5 mg three times a day; your clinician will consult with Dr. Schafer about potentially reducing the dose to twice a day. - Continue taking Metoprolol at your current dose. - Continue taking Amitriptyline at your current dose. - Continue taking Protonix 40 mg once a day for reflux. - Follow a low FODMAP diet and reduce citric acid intake to manage stomach inflammation. - Next appointment is in one month to review test results and adjust your care plan as needed. documented in this encounterK[facility]04-[facility]25 History of Present illness Narrative* Daniel Guerrero DO - 10/11/2024 11:40 AM EDT Transitional Care Management TCM Eligibility Documentation Program: Transitional Care Management Status: Enrolled Effective Dates: 10/08/2024 - present Responsible Staff: Aashish Skinner RN Discharge date: 10/07/2024 (Program start) Date of initial contact: 10/08/2024 Initial contact Target status: Successful; Contact made within 2 business days post-discharge Summary Discharged from: [facility] Admit Date: 10/02/2024 Admitted for: Tachycardia Daniel Guerrero DO Provider Documentation Amie Braxton is a 29 year old female here today for a follow up to recent hospitalization. I have reviewed the patient's hospital course including diagnostic testing performed during this hospitalization, their discharge medications, and my assessment and plan with the patient and any family members present at today's visit. Hospital Course: Amie is a 29 year old female with a past medical history of POTS, asthma, GERD, PCOS, anxiety, seasonal allergies who presented to [facility] for chest pain and elevated HR. She also endorsed suicidal ideation and thoughts of due to persistent symptoms with minimal improvement. She was admitted to [facility] for symptomatic tachycardia and suicidal ideation. She was continued on her ivabradine and started on metoprolol tartrate for symptomatic tachycardia. Her metoprolol was titrated to 12.5mg twice a day for control of her symptoms. Cardiology (Electrophysiology) was consulted for sinus tachycardia and POTS, recommended increasing ivabradine to 2.5mg three times a day. Cardiology also recommended follow up with Dr. Scha[facility]. Psychiatry was consulted for suicidal ideation, recommended starting sertraline 12.5mg in the morning with breakfast with plans to increase as tolerated. Patient was discharged home in stable condition. HPI: POTS: - Recent hospitalization for POTS management. - Currently taking ivabradine 2.5 mg TID; increased from BID during hospitalization. - Noted improvement in heart rate control with ivabradine and metoprolol combination. - Experiencing visual disturbances (delayed and strobing vision) since increasing ivabradine dose; episodes occurred twice, lasting 30-60 minutes. - Previously on bisoprolol PRN before starting ivabradine. - Blood pressure readings at home consistently around 105-108/60-69 mmHg. - Upcoming autonomic testing (QSART) on the ; requires temporary discontinuation of Atarax and amitriptyline. - Another ANS test scheduled for November 15; requires discontinuation of ivabradine. Anxiety: - Currently taking Zoloft 12.5 mg daily; reports increased anxiety since starting Zoloft. - Describes anxiety as nervousness and feeling anxiety in my body. - Taking Atarax 20 mg PRN BID for anxiety; reports significant relief with Atarax. - Able to reduce Atarax usage to once daily recently. - Concerned about increasing Zoloft dose due to upcoming testing requiring medication discontinuation. Abdominal Pain: - Ongoing abdominal pain, believed to be related to stomach irritation. - Recent EGD and barium swallow showed no signs of acid reflux or GERD, but diagnosed with CHUCK. - Taking Protonix 40 mg daily for reflux; previously took Protonix in March with no noticeable effect. - Following a low FODMAP diet to reduce inflammation; avoiding citric acid. - Reports burning pain in the left side, sometimes radiating to the shoulder and neck. - Pain described as the worst pain, varying in location and intensity. - No history of thoracic outlet syndrome. Interstitial Cystitis: - Diagnosed in high school; reports improvement in symptoms with amitriptyline. - Urologist confirmed amitriptyline as a beneficial treatment for IC. Family History: - Limited knowledge of family history due to grandmother being trafficked from [place] and grandfather leaving. - Father has a history of gut issues; mother's side has heart issues, but no significant early-lifeevents. Constitutional: (No current symptoms mentioned) Head: (No current symptoms mentioned) Eyes: (+) visual disturbances (including strobing vision) Ears/Nose/Mouth/Throat: (No current symptoms mentioned) Neck: (+) burning sensation Cardiovascular: (+) tachycardia Respiratory: (No current symptoms mentioned) Gastrointestinal: (+) abdominal pain after meals, (+) burning sensation in left upper abdomen Genitourinary: (No current symptoms mentioned) Musculoskeletal: (+) right shoulder tenderness Skin: (No current symptoms mentioned) Neurological: (+) dizziness, (+) left-sided numbness/tingling, (+) burning sensation Psychiatric: (+) anxiety, (+) hopelessness Endocrine: (No current symptoms mentioned) Hematologic/Lymphatic: (No current symptoms mentioned) Vitals BP 112/68 Pulse 80 Wt 104 lb 0.9 oz (47.2kg) SpO2 98% LMP 08/24/2024 Physical Exam Vitals reviewed. Exam conducted with a cloth shrinking machine operator helper present (significant other). Constitutional: General: She is not in acute distress. Appearance: Normal appearance. HENT: Head: Normocephalic and atraumatic. Right Ear: External ear normal. Left Ear: External ear normal. Nose: Nose normal. Mouth/Throat: Pharynx: Oropharynx is clear. No oropharyngeal exudate. Eyes: Conjunctiva/sclera: Conjunctivae normal. Cardiovascular: Rate and Rhythm: Normal rate and regular rhythm. Heart sounds: No murmur heard. No friction rub. No gallop. Pulmonary: Effort: Pulmonary effort is normal. Breath sounds: No wheezing, rhonchi or rales. Abdominal: General: Bowel sounds are normal. Palpations: There is no mass. Tenderness: There is no abdominal tenderness. There is no right CVA tenderness, left CVA tendernessor guarding. Hernia: No hernia is present. Musculoskeletal: General: Tenderness (L shoulder bicep tendonitis with + modified O'pino / + modified Speed's test)present. No deformity. Normal range of motion. Cervical back: Normal range of motion. Tenderness (tenderness to palpation of bilateral trapezius) present. No rigidity. Skin: Capillary Refill: Capillary refill takes less than 2 seconds. Findings: No bruising, erythema or lesion. Neurological: General: No focal deficit present. Mental Status: She is alert and oriented to person, place, and time. Sensory: No sensory deficit. Motor: No weakness. Coordination: Coordination normal. Gait: Gait normal. Deep Tendon Reflexes: Reflexes normal. Psychiatric: Mood and Affect: Mood normal. Behavior: Behavior normal. Thought Content: Thought content normal. Judgment: Judgment normal. Assessment / Plan: 1. Hospital discharge follow-up (Z09) - Recent hospitalization for management of POTS and associated symptoms. - Discharged with adjustments to medication regimen including increased ivabradine and initiation of metoprolol. - Follow-up scheduled in one month to reassess symptoms and medication efficacy. 2. POTS (postural orthostatic tachycardia syndrome) (G90.A) - Currently on ivabradine 2.5 mg TID and metoprolol; experiencing stable heart rate but with episodes of visual disturbances potentially linked to ivabradine. - Discussed with Dr. Schafer about reducing ivabradine to BID to mitigate visual side effects. - Autonomic testing (QSART) scheduled for 10/25; will temporarily discontinue Atarax and amitriptyline 2 days prior. - ANS test scheduled for 11/15; will discontinue ivabradine 2 days prior. - Continue monitoring blood pressure and heart rate at home. 3. Moderate persistent asthma without complication (HCC) (J45.40) - No acute exacerbations reported. - Continue current asthma management regimen. 4. Anxiety (F41.9) - Currently on Zoloft at half dose; experiencing increased anxiety symptoms. - Hydroxyzine (Atarax) providing significant relief; will temporarily discontinue 2 days prior to QSART. - Delay increase in Zoloft dosage until after autonomic testing to avoid exacerbating anxiety symptoms. - Patient agrees to continue management with current clinician and follow up with psychiatry. 5. Seasonal allergic rhinitis due to pollen (J30.1) - No acute symptoms reported. - Continue current management. 6. Screening for depression (Z13.31) - Recent hospitalization due to worsening depressive symptoms and hopelessness. - Continue monitoring and management with current clinician; follow up with psychiatry as recommended. 7. Biceps tendonitis on left (M75.22) - Physical exam reveals tenderness and muscle tension in the upper shoulder and neck. - No signs of thoracic outlet syndrome observed. - Recommended physical therapy to address muscle tension and improve symptoms. 8. Chronic interstitial cystitis (N30.10) - Noted improvement in symptoms with current amitriptyline regimen. - Continue amitriptyline at current dose. 9. Gastroesophageal reflux disease without esophagitis (K21.9) 10. Esophageal spasm (K22.4) - Currently on Protonix 40 mg daily; minimal improvement noted. - Continue Protonix and low FODMAP diet to manage symptoms. - Discussed potential increase in amitriptyline dosage post-autonomic testing to address esophagealspasms. October 10, 2024 10:59 AM documented in this encounterK[facility]04-03-2025 [facility]04-01-2025 Instructions* Patient Instructions* Fely Garcia APRN.CNS - 10/09/2024 10:53 AM EDT -Continue current medication regimen -Continue follow-up with cardiology, gastroenterology, and dysautonomia clinic -Obtain tryptase level during an event -Follow-up in 1 month or sooner if needed documented in this encounterK[facility]03-31-2025 Telephone encounter Note * Telephone Encounter - Jacqueline Easley - 10/08/2024 10:35 AM EDT Patient called to cancel appointment for this afternoon due to a conflict. [facility]03-[facility] Miscellaneous Notes* Telephone Encounter - Jacqueline Easley - 10/08/2024 10:35 AM EDT Patient called to cancel appointment for this afternoon due to a conflict. documented in this encounterKettering [facility]03-31-2025 [facility]03-31-2025 History of Present illness Narrative* Aashish Skinner, RN - 10/08/2024 10:25 AM EDT TRANSITIONAL CARE MANAGEMENT (TCM) COMMUNITY MONITORING PROGRAM - [facility] Provider Action/FYI: Patient reports anepisode last night. Patient stated she was in bed on her phone and after she put her phone down she felt a palpitation followed by delayed vision, strobing light, light headedness, sweating palms,HR spiked but did come down. Patient reports this episode lasted about an hour. TCM 10/12 SUMMARY: Pt discharged from [facility] on 10/07/24. Admitted for: Tachycardia Patient seen Inpatient ZOHAIB Visit? No. Patient seen ICARE Program? No. Contact made with patient: Yes Hi my name is Aashish Skinner, JEFFREY and I am calling from the [facility] on behalf of your PCP, Daniel Guerrero, DO I understand you were recently in the hospital so I am calling to check in with you to ensure you are feeling well now that you re home. Do you mind if I ask you a few questions related to your hospital stay and well-being Yes Contact with patient post discharge, spoke to patient. Patient identified by name and . Do you feel your health is BETTER, WORSE, or the SAME since leaving the hospital? Same ACTION TAKEN: Patient indicated symptoms are better or same, no action required. Continue outreach. N/A MEDICATIONS: Many patients have questions or concerns about their medications once they are home. Do you have any questions about taking your medications or which medication you should be on? To be completed by TCM pharmacist Do you need any medication refills at this time, including any of the medications you might take only when needed? To be completed by TCM pharmacist ACTION TAKEN: No action required For RNs or Pharmacy completing outreach ONLY, was a medication review completed? No, To be completed by TCM pharmacist, patient agreed to call SOCIAL: We would like to make sure you have what you need so that your basics needs are met - including your personal safety. HEALTH LEADS SCREENING TOOL QUESTIONS: Do you often feel you lack companionship? No Do you ever need help reading or understanding hospital materials? No In the last 12 months, have you changed how you take medications to save money? No In the past 12 months, has lack of transportation kept you from medical appointments, work or getting things you need like food, or supplies? No In the last 12 months, did you ever eat less than you felt you should because there wasn't enough money for food? No During the winter, do you anticipate having a problem paying your heating bill? No In the next 2 months, are you worried you might not have stable housing? No Would you like to speak with a social work retail team leader to help give you support for any of these needs? No It can be normal to feel anxious or down during a time like this. Would you like to talk to a mental health professional about how you have been feeling? No, patient was given psychiatry information for follow up ACTION TAKEN: No action taken DISCHARGE INTRUCTIONS: Your discharge instructions / After Visit Summary (AVS) are important in guiding you through the recovery process. Do you have any questions related to your discharge instructions? No Do you have all the necessary equipment and supplies at home? NA ACTION TAKEN: No action required WRAP AROUND SERVICES: N/A Patient educated on importance of primary care provider follow up visit as well as specialty provider follow up visits as indicated. Inform the patient that if they have any questions or concerns prior to that appointment, to call their Primary Care Provider 's office right away. Primary care provider first education provided. I would like to help you schedule a hospital follow-up virtual or telephone visit with your PCP. ACTION TAKEN: [facility] Primary Care Provider Visit Scheduled: Yes - Appt date: 10/12/24 with PCP Your doctor would like us to remind you of the recommendations regarding the coronavirus (Covid19) outbreak: Avoid public places as much as possible. Avoid close contact (within 6 feet) with others you don't live with, especially if they are sick. Stay home if you are sick. Wash your hands regularly for at least 20 seconds with soap and water. Wear a cloth mask in public places to help reduce community spread. Do not go to your Doctor's office unless instructed to do so. For any non- emergency symptoms, call your Doctor's office to get instructions on how to manage (we might recommend a telephone or virtualvisit). For emergency symptoms, proceed to Emergency Department as usual but inform them of cough and fever symptoms VIVEK if present (or call on the way if possible). documented in this encounterK[facility]03-31-2025 History of Present illness Narrative* Hanna Flores, [facility] - 10/08/2024 9:54 AM EDT TRANSITION CARE MANAGEMENT (TCM) PHARMACY CONTACT Provider Action/FYI: Unable to reach patient after unsuccessful outreach attempt(s). TCM medication reconciliation incomplete at this time. Patient will likely need a new Rx for ibravadine for TID dosing Patient unable to be reached after unsuccessful outreach attempt(s). No further attempts to contactpatient will be made. SUMMARY: -Pt discharged from [facility] on 10/07/24. -Medication review not done History of Present Illness: The following content has been copied and pasted from patient's discharge summary. If discharge summary unavailable, After Visit Summary or last pertinent inpatient notes are copied and pasted. Patient was admitted for sinus tachycardia and suicidal ideation. Amie is a 29 year old female with a past medical history of POTS, asthma, GERD, PCOS, anxiety, seasonal allergies [facility]. She also endorsed suicidal ideation and thoughts of dueto persistent symptoms with minimal improvement. She was admitted to [facility] for symptomatic tachycardia and suicidal ideation. She was continued on her ivabradine and started on metoprolol tartrate for symptomatic tachycardia. Her metoprolol was titrated to 12.5mg twice a day for control of her symptoms. Cardiology (Electrophysiology) was consulted for sinus tachycardia and POTS, recommended increasing ivabradine to 2.5mg three times a day. Cardiology also recommended follow up with Dr. Schafer [facility]. Psychiatry was consulted for suicidal ideation, recommended starting sertraline 12.5mg in the morning with breakfast with plans to increase as tolerated. Patient was di scharged home in stable condition. Medication Reconciliation: Legend: Stopped, New, Changed, Added to list Medication List Medication Directions Comments Action/Plan albuterol HFA (PROVENTIL HFA, VENTOLIN HFA) 90 mcg/actuation inhaler Inhale 1-2 Puffs as instructedevery 6 hours as needed for wheezing/shortness of breath. amitriptyline (ELAVIL) 25 mg tablet Take 0.5 tablets by mouth daily at bedtime. 09/19/24 30ds 25mg Decreased 25 mg to 12.5mg DDI sertraline - can increase serotonergic effects budesonide-formoterol (SYMBICORT) 160-4.5 mcg/actuation inhaler Inhale 2 Puffs as instructed two times a day. Patient taking differently: Inhale 2 Puffs as instructed two times a day as needed (asthma symptoms). 09/19/24 30ds - Advair 500-50 1 puff BID ?? cetirizine (ZYRTEC) 10 mg tablet Take 1 tablet by mouth once daily for 7 days. OTC Discontinued: 10/07/2024 11:13 AM hydrOXYzine HCl (ATARAX) 10 mg tablet Take 2 tablets by mouth every 6 hours as needed for anxiety. [facility] 10/07/24 #60/20ds ivabradine (CORLANOR) 5 mg tablet Take 2.5 mg by mouth three times a day. Take three times a day at6am/2pm/10pm 09/27/24 #30/30ds 5 mg Increased BID to TID Will need new Rx metoprolol tartrate, short acting, (LOPRESSOR) 25 mg tablet Take 0.5 tablets by mouth two times a day. [facility] 10/07/24 #90/90ds 25mg pantop[address] DR (PROTONIX) 40 mg tablet Take 1 tablet by mouth once daily. 09/19/24 90ds sertraline (ZOLOFT) 25 mg tablet Take 0.5 tablets by mouth daily with breakfast for 7 days, THEN 1 tablet daily with breakfast for 7 days, THEN 1.5 tablets daily with breakfast for 7 days, THEN 2 tablets daily with breakfast. [facility] 10/07/24 #81/30ds 12.5mg daily x7d 25 mg daily x7d 37.5 mg daily x7d 50 mg daily x7d Should do 12.5 mg x4 more days as did 3 days inpatient Preferred pharmacy: [facility] [id number] [place] [address] [address] [facility] [phone] [id number] [facility] [id number] Estimated Creatinine Clearance: 92 mL/min (based on SCr of 0.69 mg/dL). Estimated Glomerular Filtration Rate (mL/min/1.73m ) Date Value 10/06/2024 122 eGFR- (no units) Date Value 08/31/2020 >60 Additional follow up: Next 5 Appointments Date and Time Provider Department Dept Phone 10/08/2024 1:00 PM Sharlene Means [facility] [phone] 10/11/2024 1:45 PM Laxmi Camargo PT [facility] [phone] 10/11/2024 4:00 PM Joann Braxton MAIN [phone] 10/18/2024 1:45 PM Laxmi Camargo PT [facility] [phone] 10/18/2024 3:00 PM Kimi Dinero [facility] [phone] Interventions Made: None Pharmacist Recommendations Made None Care Coordination: None at this time Time spent on patient: 15-30 minutes Hanna Flores RPh October 08, 2024 9:54 AM documented in this encounterKettering [facility]03-31-2025 NoteOhio[facility]03-30-2025 [facility]03-29-2025 [facility]03-28-2025 [facility]03-27-2025 [facility]03-26-2025 [facility]03-26-2025 Note HNO ID: [id number] Author: JOSEPH LUNA, Service: ? Author Type: Physician Type: Progress Notes Filed: 10/03/2024 09:10 Note Text: Patient is currently admitted to [facility] under [facility] services. Thanks. Joseph Luna, [facility]03-26-2025 [facility]03-24-2025 Note* Behavorial Health Intake - Mary Garcia RN - 10/01/2024 10:17 PM EDT BEHAVIORAL HEALTH BRIEF INTAKE NOTE SERVICE DATE: 10/01/2024 SERVICE TIME: 10:17 PM Amie Braxton is a 29 year old female brought in to [facility] ED from Home by self for psychiatricproblem. FULL CASE NOT PROCESSED DUE TO: Patient medically admitted DISPOSITION & PLAN: Admit patient: No Discharge Disposition: Medical Admission Is Patient Less Than 18 Years of Age or have a Guardian/Healthcare Power of Canal Boat Operator?: No Disposition Date: 10/01/24 Disposition Time: 2214 [place] SIGNATURE: Mary Garcia RN PATIENT NAME: Amie Braxton DATE: October 01, 2024 TIME: 10:17 PM [facility]03-24-2025 Miscellaneous Notes* Behavorial Health Intake - Mary Garcia RN - 10/01/2024 10:17 PM EDT BEHAVIORAL HEALTH BRIEF INTAKE NOTE SERVICE DATE: 10/01/2024 SERVICE TIME: 10:17 PM Amie Braxton is a 29 year old female brought in to [facility] ED from Home by self for psychiatricproblem. FULL CASE NOT PROCESSED DUE TO: Patient medically admitted DISPOSITION & PLAN: Admit patient: No Discharge Disposition: Medical Admission Is Patient Less Than 18 Years of Age or have a Guardian/Healthcare Power of Canal Boat Operator?: No Disposition Date: 10/01/24 Disposition Time: 2214 [place] SIGNATURE: Mary Garcia RN PATIENT NAME: Amie Braxton DATE: October 01, 2024 TIME: 10:17 PM documented in this encounterKettering Health [facility]03-24-2025 [facility]03-24-2025 History of Present illness Narrative* Gustavo Rajput LPN - 10/01/2024 10:55 AM EDT ED Follow Up: Patient discharged from [facility] ED on 09/29/24. 1. How are you feeling since your ED visit? Feeling the same Have your symptoms improved or resolved? No 2. Were you prescribed any medications while in the ED or advised to stop any medication? Yes - If yes, were you able to fill your prescriptions? Yes -if stopped medication, what was the medication? no 3. Were you advised to schedule a follow up appointment with your provider? Yes - If no, Do you feel like you need an appointment scheduled? Not applicable - If yes, Do you need this scheduled now or has this already been scheduled? Yes 4. Were you able to contact the office or environmental field technician provider prior to your ED visit? No 5. Is there anything else I can do for you today? No, Patient needs seen but was told provider availability is nothing until November. This Nurse Held 10/11/24(2 day hold) @940 for her to be seen by PCP. documented in this encounterKettering Health [facility]03-21-2025 [id number] (AGENT OF COVID-19) RNA: Not detected INFLUENZA A RNA: Not detected INFLUENZA B RNA: Not detected RESPIRATORY SYNCYTIAL VIRUS (RSV) RNA: Not detectedNorthern Light C.A. Dean HospitalComment on above:Performed By: #### [id number] ####[facility] LAB[facility] [id number] [place] [address] [place] [id number] NoteOhiohealth [facility]03-21-2025 History of Present illness Narrative* Fely Garcia APRN.COMPUTER OPERATIONS MANAGER - 09/28/2024 11:08 AM EDT [facility] Allergy & Clinical Immunology Chief Complaint: shortness of breath Historian: patient HPI Ms. Braxton is a 29 year old female with a history of asthma, allergies, GERD, CIU, and ILO in clinic for follow up. Patient was last seen by me on 07/23/2024: Assessment and Recommendations 1. Moderate persistent asthma without complication - ICD9: 493.90, ICD10: J45.40 (primary diagnosis) Not well-controlled. Allergic triggers are cats and pollens. She is still having breakthrough symptoms despite increase in ICS/LABA inhaler in March. Will optimize medications to prevent breakthrough symptoms. -Stop Symbicort -Start Advair Diskus 500 mcg 1 puff twice daily -Xopenex 2 puffs every 4 hours as needed 2. Inducible laryngeal obstruction (ILO) - ICD9: 478.79, ICD10: J38.7 -See speech therapist as scheduled 3. Seasonal allergic rhinitis due to pollen - ICD9: 477.0, ICD10: J30.1 4. Allergic rhinitis due to mold - ICD9: 477.8, ICD10: J30.89 5. Allergic rhinitis due to animal hair and dander - ICD9: 477.2, ICD10: J30.81 6. Allergic rhinitis due to dust mite - ICD9: 477.8, ICD10: J30.89 Not well-controlled. Will optimize medication regimen. -Saline nasal spray -Astelin 2 sprays twice daily -Trial Nasacort or Nasonex 2 sprays once daily 7. Idiopathic urticaria - ICD9: 708.1, ICD10: L50.1 New onset. Discussed the idiopathic nature of chronic hives and prognosis. We talked about management strategy and that a robust daily antihistamine regimen is used to suppress symptoms. At follow up, will ask patient duration of hives and discuss non-specific triggers (NSAIDS and alcohol). -Zyrtec 10 mg twice daily. May increase to 20 mg twice daily if needed. -Benadryl 25 mg as needed at night -Consider Pepcid 20 mg twice daily if hives persistent -Follow up in 4-6 weeks, after seeing speech therapy Interval history Patient switched from Symbicort to high-dose Advair. She is not sure if it has been helpful since she has other healthcare issues that may causing shortness of breath. She has palpitations and was diagnosed with SVT. She started ivaberdine with improvement. She has POTS diagnosed by cardiology () who feels this is not related to POTS. She has ILO and is working with speech therapy. She endorses improvement with respiratory therapy. She has nasal congestion. Springtime is a trigger. She is using INCS as needed with relief. She no longer uses azelastine with no worsening of symptoms. She has regurgitation and acid reflux bubbles. EGD was normal. GI started her on Protonix last week. She has been on amitriptyline for about a month. Hives are controlled on Zyrtec. She recently had breakthrough hives after stopping Zyrtec for another reason. Records were reviewed and summarized as follows: 03/10/23 Sensitized to cat, dog, dust mites, mold, trees, grass, weeds, and ragweed Skin testing negative to multiple foods (animal, legume, tree nut, shellfish, fish, fruit) PAST MEDICAL HISTORY Diagnosis Date Asthma Generalized anxiety disorder Migraines PCOS (polycystic ovarian syndrome) POTS (postural orthostatic tachycardia syndrome) Tilt x2 ([facility], [facility]) Seasonal allergies Syncope PAST SURGICAL HISTORY Procedure Laterality Date TONSILLECTOMY & ADENOIDECTOMY <AGE 14 FAMILY HISTORY Problem Relation Age of Onset other (palpitations) Mother stress No Known Problems Father No Known Problems Sister Skin Cancer Maternal Grandmother Diabetes Paternal Grandmother Social History Tobacco Use Smoking status: Never Smokeless tobacco: Never Vaping Use Vaping status: Never Used Substance Use Topics Alcohol use: Never Drug use: Never Social History Tobacco Use Smoking status: Never Smokeless tobacco: Never Current Outpatient Medications Medication Sig pantoprazole DR (PROTONIX) 40 mg tablet Take 1 tablet by mouth once daily. amitriptyline (ELAVIL) 25 mg tablet Take 1 tablet by mouth daily at bedtime. ivabradine (CORLANOR) 5 mg tablet Take 2.5 mg by mouth two times a day. budesonide-formoterol (SYMBICORT) 160-4.5 mcg/actuation inhaler Inhale 2 Puffs as instructed two times a day. EPINEPHrine (EPIPEN) 0.3 mg/0.3 mL auto-injector Inject 0.3 mg intramuscularly as needed. Current Facility-Administered Medications Medication Dose Route Frequency cyanocobalamin 1,000 mcg injection 1,000 mcg INTRAMUSCULAR q 1 MONTH ALLERGIES Allergen Reactions Beef Containing Pro* Intolerance migraines Migraines, upset stomach Beef Derived (Bovin* Hives Beta-Blockers (Beta* Contraindication-Medical Surgical Patient carries Epipen for pineapple allergy. States it is form beef containing products. Egg Derived GI Upset Vomiting even with ingredient of egg Milk Containing Pro* Intolerance, Hives Vomiting. Pineapple Hives, Swelling Hives, difficulty breathing Soy GI Upset vomiting Tree Nuts Other: See Comments Asthma flaring, difficulty breathing Vancomycin Analogues Hives Blood pressure 104/74, pulse 112, temperature 36.9 C (98.5 F), temperature source Temporal Artery, resp. rate 16, height 154.9 cm (5' 1), weight 48 kg (105 lb 13.1 oz), last menstrual period 08/24/2024, SpO2 100%. Body mass index is 19.99 kg/m . Physical Exam Vitals reviewed. Constitutional: General: She is not in acute distress. Appearance: Normal appearance. She is not ill-appearing. HENT: Nose: Nose normal. Mouth/Throat: Mouth: Mucous membranes are moist. Pharynx: Oropharynx is clear. Eyes: Conjunctiva/sclera: Conjunctivae normal. Cardiovascular: Rate and Rhythm: Normal rate and regular rhythm. Heart sounds: Normal heart sounds. Pulmonary: Effort: Pulmonary effort is normal. Breath sounds: Normal breath sounds. Skin: General: Skin is warm and dry. Neurological: Mental Status: She is alert. Psychiatric: Mood and Affect: Mood normal. Behavior: Behavior is cooperative. Pertinent Lab Results Latest Ref Rng 08/31/2024 Tryptase <8.4 ug/L 3.8 Assessment and Recommendations (J45.40) Moderate persistent asthma without complication (primary encounter diagnosis) (J38.7) Inducible laryngeal obstruction (ILO) (K21.9) Gastroesophageal reflux disease, unspecified whether esophagitis present (I47.10) SVT (supraventricular tachycardia) (HCC) Shortness of breath likely multifactorial. Asthma seems well-controlled. Patient is receiving respiratory therapy with improvement. SVT controlled on ivabradine. -Continue Advair -Xopenex as needed -Continue Protonix, amitriptyline, and ivabradine as prescribed -Continue follow-up with cardiology, gastroenterology, and dysautonomia clinic (J30.1) Seasonal allergic rhinitis due to pollen (J30.89) Allergic rhinitis due to dust mite (J30.81) Allergic rhinitis due to animal hair and dander (J30.89) Allergic rhinitis due to mold Well-controlled. -Continue INCS as needed (L50.1) Chronic idiopathic urticaria Controlled on antihistamines. -Continue Zyrtec (cetirizine) MCAS was suggested by cardiology. Baseline tryptase level is normal. -Obtain TRYPTASE BLOOD during an event Follow-up in 1 month or sooner if needed I spent a total of 33 minutes on the date of the service which included preparing to see the patient, [id number] patient care, completing clinical documentation, obtaining and/or reviewing separately obtained history, performing a medically appropriate examination, counseling and educating the pat ient/family/caregiver, and ordering medications, tests, or procedures. AVS provided to patient via [employer] and included a recap of today's appointment and medical plan. This note was partially generated using [employer] voice recognition system, and there may be some incorrect words, spellings, and punctuation that were not noted in checking the note before saving. Fely Garcia APRN.COMPUTER OPERATIONS MANAGER Allergy & Clinical Immunology documented in this encounterKettering Health [facility]03-20-2025 Instructions* Patient Instructions* Apple Grady PA-C - 09/27/2024 10:25 AM EDT Functional medicine - call [phone] to schedule. New patient appointment. Stop - Enteromend and probiotic Continue omega 3 documented in this encounterKettering Health [facility]03-20-2025 History of Present illness Narrative* Apple Grady PA-C - 09/27/2024 10:00 AM EDT Wellness Follow up Ms.Melody Braxton is a 29 year old female is here for a wellness and preventive medicine follow up visit. Chief complaint: cognitive, heart racing HPI: 29 year old female with a history of asthma, allergic rhinitis and GI issues a lot of her lifereports ~ 5 years of persistent brain fog/poor concentration, headaches/migraines and then some GI stuff. This triggered more after studying in [place] early 2019. She has helped her GI symptoms with a strict diet, and a little more with Enteromend, probiotic and omega, but still has significant issues with tachycardia and palpitations. She is working with several specialists and recently started on Ivabradine to control heart rate, but she is still interested in root cause. 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 LOUNGE - interstitial cystitis Psychosocial: Nutrition: focusing on higher protein meals <-- lots of food allergies (since a kid); DF, nut free, avoids beef, soy, eggs, pineapple, some bananas; avoids fish due to flavor; not GF V: chicken, pork, [employer] bread HF: avocado, chickpeas Snacks: occasional GF pretzels, sweet tooth, Dena's cookies - GF/DF Water: a lot, LMNT all day Alcohol: no Caffeine: no Menses: not regular, hx PCOS BM: daily, formed Sleep: still with trouble falling asleep (anxiety), but staying asleep now <-- trouble falling and staying asleep, got worse with 2020 - Hours 11 pm - 9 am - Awakening - not anymore no, last time she tolerated was in 2021 with weights, but then later 2021 too weak Stress - moderate, just doesn't handle it well; previously very high stress Coping Mechanisms - reading, journaling, meditation; counseling for many years ALLERGIES Allergen Reactions Beef Containing Pro* Intolerance migraines Migraines, upset stomach Beef Derived (Bovin* Hives Beta-Blockers (Beta* Contraindication-Medical Surgical Patient carries Epipen for pineapple allergy. States it is form beef containing products. Egg Derived GI Upset Vomiting even with ingredient of egg Milk Containing Pro* Intolerance, Hives Vomiting. Pineapple Hives, Swelling Hives, difficulty breathing Soy GI Upset vomiting Tree Nuts Other: See Comments Asthma flaring, difficulty breathing Vancomycin Analogues Hives REVIEW OF SYSTEMS: Denies constipation, +heart racing, +palpitations Physical Exam BP 116/80 Pulse 71 Temp 36.2 C (97.1 F) (Temporal) Ht 154.9 cm (5' 1) Wt 49.8 kg (109 lb 12.6 oz) LMP 08/24/2024 (Approximate) SpO2 98% BMI 20.74 kg/m GENERAL: Well groomed, well appearing, no acute distress HEENT: pink tongue, sclera anicteric CV: RRR with no murmur LUNGS: CTAB NEURO: Non-antalgic gait, alert and oriented x 3 EXT: Normal extremities NAILS: no beaus lines, no vertical ridges, leukonychia, short (biting) PREVIOUS STUDIES/LABS: Latest Ref Rng 08/31/2024 Metanephrine, Plasma 12 - 67 pg/mL 41 Normetanephrine, Free Plasma 18 - 101 pg/mL 96 CK 42 - 196 U/L Magnesium 1.7 - 2.3 mg/dL T3 79 - 165 ng/dL 92 Free T4 0.9 - 1.7 ng/dL 1.3 TSH 0.270 - 4.200 mIU/L 1.510 Tryptase <8.4 ug/L 3.8 Latest Ref Rng 07/09/2024 OmegaCheck >5.4 % by wt 3.0 (L) Latest Ref Rng 07/09/2024 Vitamin D 25 Hydroxy 31.0 - 80.0 ng/mL 18.1 (L) IMPRESSION: Ms. Amie Braxton is a 29 year old year old female with multiple allergies here for a wellness and preventive medicine follow up visit regarding POTS and unexplained tachycardia/chest palpitations and brain fog. Her diet is also quite restricted due to many allergies over the years. She has not found any triggers. Other thoughts include MCAS (although tryptase negative) and mold toxicity outside of all of the conventional medicine approach, I think she could benefit from a full functional medicine perspective and possibly additional testing. I will refer her for that. A wellness and preventive medicine approach was discussed with the patient including risks, benefits, and alternatives. She agrees to proceed. It was emphasized that she should continue with all of her current treating caregivers's recommendations. Treatment plan/recommendations: (G90.A) POTS (postural orthostatic tachycardia syndrome) (primary encounter diagnosis) (R00.2) Palpitations (R00.0) Tachycardia Comment: active with cardiology and neurology and on a new medication Plan: - CONSULT TO FUNCTIONAL MEDICINE another angle for root cause as well as a particular diet (R41.89) Brain fog (R41.3) Memory change Comment: CRYOLITE RECOVERY OPERATOR helping, but feels very exhausted and worse palpitations after Plan: CONSULT TO FUNCTIONAL MEDICINE It has been a pleasure to see Ms. Amie Braxton for a wellness and preventive medicine follow up. Moustapha asked Amie Braxton to return to see me prn. Thank you for the referral or interest in caring for your whole body and mind. I spent a total of 30 minutes on the date of the service which included preparing to see the patient, [id number] patient care, completing clinical documentation, obtaining and/or reviewing separately obtained history, performing a medically appropriate examination, counseling and educating the pat ient/family/caregiver, independently interpreting results (not separately reported), and communicating results to the patient/family/caregiver. documented in this encounterKettering Health [facility]03-20-2025 NoteOhiohealth [facility]03-19-2025 [facility]03-12-2025 History of Present illness Narrative* Samra Rose APRN.HORSE SHOER - 09/19/2024 1:30 PM EDT VIRTUAL VISIT Amie Braxton is a 29 year old female who is scheduled for a virtual visit for esophageal spasms atthe consult request of . I have communicated my name and active licensure. The patient's identity and physical location wereverified at the time of this visit. Either the patient or their legal collections representative has been informed of the risks and benefits of -- and alternatives to -- treatment through a remote evaluation andconsents to proceed with the evaluation remotely. My final recommendations will be communicated back to the requesting physician by the way of the shared medical record, fax, or via US Mail. HISTORY: Follow up for esophageal spasms Trazodone caused severe vertigo, vision change, worsened chest pain, face vibrations, head zaps, extreme brain fog and fatigue. Stopped trazodone and started on amitriptyline. No side side effects from the amitriptyline Can't say if the amitriptyline is helping with the spasms because she is having paliptations and increased heart rate, following with cardiology Inreased heart rate symptoms started before she started amitriptyline. Pain in center of her chest is better since amitriptyline, now more to the left Having regurgitation of food and acid, typically right after the meal Can occur with drinking water, will swallow and have a ton of mini burps, has to dry swallow to getit to go down Was only on pantoprazole for a short period of time maybe a week. PAST MEDICAL HISTORY Diagnosis Date Asthma Generalized anxiety disorder Migraines PCOS (polycystic ovarian syndrome) POTS (postural orthostatic tachycardia syndrome) Tilt x2 ([facility], [facility]) Seasonal allergies Syncope PAST SURGICAL HISTORY Procedure Laterality Date TONSILLECTOMY & ADENOIDECTOMY <AGE 14 FAMILY HISTORY Problem Relation Age of Onset other (palpitations) Mother stress No Known Problems Father No Known Problems Sister Skin Cancer Maternal Grandmother Diabetes Paternal Grandmother Social History Tobacco Use Smoking status: Never Smokeless tobacco: Never Vaping Use Vaping status: Never Used Substance Use Topics Alcohol use: Never Drug use: Never Current Outpatient Medications Medication Sig Dispense Refill ivabradine (CORLANOR) 5 mg tablet Take 2.5 mg by mouth two times a day. 30 tablet 5 amitriptyline (ELAVIL) 25 mg tablet Take 1 tablet by mouth daily at bedtime. 30 tablet 0 budesonide-formoterol (SYMBICORT) 160-4.5 mcg/actuation inhaler Inhale 2 Puffs as instructed two times a day. 10.2 g 5 EPINEPHrine (EPIPEN) 0.3 mg/0.3 mL auto-injector Inject 0.3 mg intramuscularly as needed. Current Facility-Administered Medications Medication Dose Route Frequency Provider Last Rate Last Admin cyanocobalamin 1,000 mcg injection 1,000 mcg INTRAMUSCULAR q 1 MONTH Daniel Guerrero, DO 1,000 mcg at 08/07/24 1000 ALLERGIES Allergen Reactions Beef Containing Pro* Intolerance migraines Migraines, upset stomach Beef Derived (Bovin* Hives Beta-Blockers (Beta* Contraindication-Medical Surgical Patient carries Epipen for pineapple allergy. States it is form beef containing products. Egg Derived GI Upset Vomiting even with ingredient of egg Milk Containing Pro* Intolerance, Hives Vomiting. Pineapple Hives, Swelling Hives, difficulty breathing Soy GI Upset vomiting Tree Nuts Other: See Comments Asthma flaring, difficulty breathing Vancomycin Analogues Hives REVIEW OF SYSTEMS: PAIN ASSESSMENT: Negative for pain, history of chronic pain, or current treatment for a chronic pain condition. GENERAL: No weight loss, malaise or fevers RESPIRATORY: Negative for cough, hemoptysis, wheezing, COPD, dyspnea or shortness of breath CARDIOVASCULAR: Negative for chest pain, leg swelling, hypertension, CHF or palpitations GI: as above MUSCULOSKELETAL: Negative for joint pain or swelling, back pain or muscle pain SKIN: Negative for lesions, rash, and itching ENDOCRINE: Negative for cold or heat intolerance, polyuria, polydipsia and goiter NEURO: No history of headaches, syncope, paralysis, seizures or tremors PHYSICAL FINDINGS OF NOTE: Patient reported height 5'1 and weight 104 lbs General - Normal, healthy, cooperative, in no acute distress Able to interact verbally by video conference Psych - ORIENTATION: normal to time place, person and situation Mood/Affect: AFFECT AND MOOD: Normal Head/Neuro - Normal size and shape Facial appearance normal Pulmonary - respiratory effort normal Cardiovascular - patient describes extremities normal, warm, no cyanosis,no clubbing, and no edema Skin - abnormal lesions not visualized Motor - patient seen sitting with Normal appearing strength and coordination REVIEWED ITEMS Prior work up ASSESSMENT AND PLAN ASSESSMENT/PLAN: 1. Esophageal spasm - ICD9: 530.5, ICD10: K22.4 Pt with esophageal spasms. Patient is following with cardiology for increased heart rate and palpitates that started before amitriptyline. Start pantoprazole daily. Samra Rose APRN.CNP I HAVE offered the patient an outpatient appointment [facility]. I spent a total of 30 minutes on the date of the service which included preparing to see the patient, [id number] patient care, completing clinical documentation, obtaining and/or reviewing separately obtained history, performing a medically appropriate examination, counseling and educating the pat ient/family/caregiver, ordering medications, tests, or procedures, communicating with other HCPs (not separately reported), independently interpreting results (not separately reported), communicatingresults to the patient/family/caregiver, and care coordination (not separately reported). Samra Rose APRN.CNP documented in this encounterKettering [facility]03-12-2025 NoteOhiohealth [facility]03-10-2025 History of Present illness Narrative* Laxmi Camargo, PT - 09/17/2024 4:27 PM EDT Program_ID:[id number] Access Code: [email or web address] URL: [email or web address] Date: 09-17-2024 Prepared By: Laxmi Camargo Program Notes Exercises - Supine Bridge - 1 x daily - x weekly - 1 sets - 10 reps - Supine 90/90 Alternating Toe Touch - 1 x daily - x weekly - 3 sets - 10 reps * Laxmi Camargo, PT - 09/17/2024 3:48 PM EDT Images from the original note were not included. Episode Visit Count: 3 Therapist That Will Accept/Oversee The Plan Of Care: Laxmi Camargo Start of Care Date: 08/06/24 Onset Date: 07/11/24 (near the end 2019- chronic dizziness) REHABILITATION AND SPORTS THERAPY PHYSICAL THERAPY PROGRESS REPORT PLAN OF CARE UPDATE: Assessment: Amie Braxton demonstrates continued difficulty with dizziness. The patient has progressed toward goals. Patient continues to present with impairments in symptom management that interfere with physical activities, recreational activities, walking, heavy exertion, bending, working . Current prognosis is Good due to: current objective clinical presentation . Patient reports difficulty with heart symptoms in all of August that led to a decrease in exercise participation. She is now controlled onmedication and notes HR doesn't go up passed 133 now. Patient tolerated exercises well today with max heart rate being 110 bpm with only one report of chest pain with NuStep. Patient educated on safety with exercises and advised to continue with small amounts of exercise as able. HEP adjusted accordingly. The patient will benefit from continued skilled therapy services to meet the updated goals for this plan of care as noted below. Goals for Episode of Care: established 08/06/24 Updated 09/17/2024 Patient will be able to correct postural deviations independently in order to allow for normal mechanics, to decrease current pain and prevent future recurrence. NOT MET Patient will be able to decrease pain to <3/10 at rest and with functional activities. NOT MET Patient will perform Romberg stance on compliant surface for 30 seconds without LOB. (TBA) NOT TESTED Patient will demonstrate normal active cervical spine range of motion to restore posture and complete ADLS with trace report of dizziness/imbalance. NOT MET Patient will be independent with home exercise program and progression. ONGOING Patient will return to prior level of function with all activities of daily living with trace reports of dizziness. NOT MET Patient will be able to walk household and community distances with safe, functional gait pattern with trace report of dizziness/imbalance. NOT MET Patient will demonstrate the ability to complete VOR in static and dynamic positions with trace report of dizziness. NOT MET Patient Goals: to have more stability NOT MET Time Frame for Goals and Treatment : 10/01/24 Planned Interventions, Frequency, and Duration: 1x/week, 3 weeks Total Number of Visits Planned: 3 Patient to be seen for Therapeutic exercise (71009), Neuromuscular re-education (27417), Manual therapy (32325), Therapeutic activities (33540), Gait Training (53118), General Conditioning, Canalith Repositioning Maneuvers (65389) PLAN FOR NEXT VISIT: aerobics, core stabilization - bridges with band SUBJECTIVE: Reports that she has had heart difficulty with palpitations. Functional Limitations: physical activities, recreational activities, walking, heavy exertion, bending, working Pain: Pain Pain Level: 0 Post Treatment Pain Post Treatment Pain Level: No Change PROMIS Scales 08/23/2024 08/14/2024 08/05/2024 Higher is Better Self-Eff Symptom - T Score 34 (Low) Self-Eff Symptom - Percentile 5 Cognitve Function - T Score 26 (severe dysfunction) Cognitive Function - Percentile 1 Communication - Score 65 T-scores: mean of general population = 50. 5 points is clinically meaningfully difference Percentiles provide an indication of how the patient's score ranks in relation to the general population. Higher percentile rankings indicate better function/quality of life. 50th percentile is the average of the general population and indicates half of respondents had a worse score. OBJECTIVE MEASURES WITH LEVEL OF FUNCTION: Vitals Pulse: 108 Additional Vitals: Yes Vitals response to exercise: Yes Peak HR Achieved : 110 60-85% HRR Achieved?: No Exercise BP within appropriate range: No Exercise BP not in appropriate range: Other TREATMENT: Therapeutic Exercise: 1: NuStep x 4 minutes while monitoring vitals 2: hip adduction 3 x 10 with ball 3: hip abduction 3 x 10 with gren band 4: updated and reviewed HEP 5: Education on dysautonomia management and safety with exercise Skilled Intervention: Patient was educated in proper exercise technique and purpose for exercises. Patient education as noted. Billing Therapeutic Exercise Treatment Minutes: 40 Skilled Treatment Time Minutes (timed and untimed codes): 40 Total Session Time (minutes): 40 Session Start Time : 1546 Session Stop Time : 1626 Laxmi Camargo PT, DPT documented in this [facility] Note[facility] Note[facility] History of Present illness Narrative* Kimi Dinero CCC-CRYOLITE RECOVERY OPERATOR - 09/17/2024 3:26 PM EDT Images from the original note were not included. Episode Visit Count: 4 Therapist That Will Accept/Oversee The Plan Of Care: Kimi Dinero Start of Care Date: 07/19/24 Onset Date: 07/09/24 Plan of Care Certification Date: 07/19/24 Next Certification Due Date: 10/17/24 Patient Identified by Name and Date of : Yes REHABILITATION AND SPORTS THERAPY SPEECH THERAPY PROGRESS REPORT PLAN OF CARE UPDATE: Impression: Communication deficits identified: Cognitive-Linguistic deficits Progress Toward Goals: Progressing as expected Functional gains: Increased ability to recall vital ADL medical and social information, Increased use of compensatory strategies, and Increase expressive language skills Goals for Episode of Care Updated: 09/17/2024 Goals for Episode of Care: created on 07/23/2024 through 10/17/24 EXPRESSIVE LANGUAGE GOALS State synonyms/antonyms with 90% effectiveness given minimal cues. Goal not yet addressed. Demonstrate the use of taught strategies for effective communication during conversations 95% of the time with minimal cues. Conversational speech at 90% accuracy. Ongoing education for word retrieval strategies including SFA/description, synonyms/antonyms, pause/restart, managing mental fatigue and cognitive overload. Progressing/Goal Partially Achieved. All goals to target the patient's overall ability to facilitate functional communication of ADL medical / social needs. COGNITIVE GOALS Improve categorical naming tasks at a concrete and abstract level with 90% accuracy given minimal assist. Divergent naming given initial letter for concrete categories with 90% accuracy, increased to 100% accuracy given minimal cues. Progressing/GoalPartially Achieved. Improve immediate and short term/prospective memory to 90% accuracy with use of compensatory strategies with minimal assist/cues. Pt recalled 12/12 pictured items utilizingassociation/categorization, repetition, visualization strategies. Following 15 minute delay, recalled 12/12. Progressing/Goal Partially Achieved. Improve working memory to WFL during complex cognitive tasks with 90% using compensatory strategies in order to recall the steps taken during a cognitive process. Working memory task with 90% accuracy. Progressing/Goal Partially Achieved. Improve selective and alternating attention per auditory/visual cognitive tasks to 90% accuracy in order to demonstrate improved ability to focus attention and divide and alternate attention between multiple tasks within the clinical environment. Selective attention for 45 minute session for auditory education with 100% accuracy. No redirections or repetitions required. Alternating auditory attention with 100% accuracy. Continue to test and increase complexity. Progressing/Goal Partially Achieved. All goals to target the patient's overall ability to facilitate functional cognitive linguistic skills. Time Frame for Goals and Treatment : 10/17/24 RECOMMENDATION: Planned Interventions, Frequency, and Duration: Follow up for one visit(s) per week for four weeks for Individual skilled ST services Cognitive-Linguistic Training Expressive Language Training Patient / Caregiver Education/ Training Patient / Family express agreement with goals Patient continues to demonstrate the following limitations which require skilled Speech intervention: Decreased expressive language Decreased cognitive linguistic skills CRYOLITE RECOVERY OPERATOR Recommendations: Outpatient Speech Therapy Results and Recommendations Discussed With: Patient Planned Interventions, Frequency, and Duration: Planned Treatment Interventions: Cognitive-Linguistic Training (08598, 38016, 60799), Patient / Caregiver Education/ Training, Cognitive Skills Development (89912, 91130), Expressive Language Training (90060, 10325) Current Frequency: 1x/week Duration: 4 weeks PLAN FOR NEXT VISIT: cognitive overload strateiges, mental fatigue management, memory tasks/strategies, attention tasks/strategies, expressive language tasks/strategies SUBJECTIVE: Subjective: Amie reports multiple medical issues since last visit (see chart). She feels fatigue is a little better. Brain fog and word retreival are still presents however likely using a lot of brain injury d/t mentally managing medical issues/symptoms. PROMIS Scales 08/23/2024 08/14/2024 Speech Communication Score 65 Cognitve Function T-Score 26 (severe dysfunction) Cognitive Function Percentile 1 T-scores: mean of general population = 50. 5 points is clinically meaningfully difference Percentiles provide an indication of how the patient's score ranks in relation to the general population. Higher percentile rankings indicate better function/quality of life. 50th percentile is the average of the general population and indicates half of respondents had a worse score. OBJECTIVE MEASURES WITH LEVEL OF FUNCTION: TREATMENT: Speech/Language Therapy (38560): Skilled Intervention: Educated and instructed patient on memory recall strategies such as focused attention, active repetition, visualization, and association. Provided verbal cues in expressive language task. Billing: Speech Treatment (14638) Total time / Length of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 IMPRESSIONS AND FINDINGS: Sinus rhythm with frequent periods of sinus tachycardia and episodes of sinus arrhythmia noted. T-wave changes also noted. Maximum HR: 168 BPM Minimum HR: 57 BPM Average HR: 96 BPM Very rare Supraventricular ectopy seen as one isolated PAC. Event marker was activated. Patient symptoms noted: Burning in chest/head/left arm/neck, tightness in chest, heart pounding, vibration in nose/face, palpitations/fluttering/irregular beats, chest soreness. Rates ranging between 80-141 BPM. 04/26/2024 EPS tilt * FINAL IMPRESSIONS * - The test was completed per protocol at 30 minutes of 70 degree tilt. - Systolic blood pressures remained stable from 113 mmHg at start to 120 mmHg at end of tilt. - Diastolic blood pressures remained stable from 73 mmHg at start to 90 mmHg at end of tilt. - Blood pressure upon return to supine position was 125/62 mmHg. - Heart rates increased from 79 bpm at start to 119 bpm at end of tilt. - Heart rate upon return to supine position was 81 bpm. - ECGs showed: NO asystole was seen. - Patient signs/symptoms included: lightheadedness/dizziness, nausea, shortness of breath, chest pain. - Syncope/impending syncope was NOT induced. - Overall: The test is diagnostic for accentuated postural tachycardia with early rise in heart rate. The test is negative for syncope. Stage Sbp Dbp Hr Ecg Symptoms Comments C-01 109 76 68 12L C-02 120 75 82 C-03 111 67 88 Arm Cuff BP's in this column C-Mean 113 73 79 Baseline continuous BP: 30 12L 30 30 45 12L 45 45- 70- 114 83 115 pt states i feel real dizzy, osc cuff in progress 112 82 99 osc cuff 149/96 70- 118 77 101 pt states im still dizzy, feel like im moving and i have chest tightness and sob. 118 83 132 osc cuff 134/80, pt states chest tightness/pain is a 5/10 midsternal non radiating accompanied by sob sao2 96% on room air. no distress noted. vss 70-05 115 71 117 osc cuff 119/64, hr 90s-120s non sustained sinus tach - 139 70 115 70-07 122 82 107 PT STATES FEELING THE SAME. NO WORSE. NO BETTER -08 111 69 84 PT STATES I FEEL A LITTLE NAUSEATED. NOT HORRIBLE. NO DISTRESS NOTE. - 123 72 110 70-10 104 66 104 OSC CUFF 137/83 70-11 106 52 109 PT STATES STILL LIGHTHEADED, DIZZY, SOB, AND NAUSEA. NO DISRTESS NOTED.VSS SAO2 95% ON RA -12 117 65 108 OSC CUFF 99/74 70-13 99 72 113 OSC CUFF 114/73 70-14 110 64 100 OSC CUFF LOWER ARM 144/81 70-15 102 77 113 70-16 109 63 117 PT STATES I FEEL LIKE A BRAXTON GOES THROUGH MY BODY AND I DONT FEEL WELL AND THEN IT PASSES. 70-17 103 93 112 70-18 110 70 119 70-19 109 88 121 OSC CUFF 156/95 70-20 115 83 119 CUFF 139/64 70-21 107 77 118 NO NEW COMPLAINTS. SAME COMPLAINTS SAME. FEELS INTERMITTENT PALPITATIONS HR 90-120-130S INTERMITTENT SINUS TACH. 112 74 121 70-23 122 74 122 70-24 121 77 124 OSC CUFF 125/81 70-25 124 62 112 70-26 123 77 121 FINGER CUFF HAS NOISE REPOSTIONING IT. CUFF PRESSURE ON LEFT LOWER ARM 70-27 114 59 93 70-28 116 47 105 CUFF 112/80 70-29 125 47 125 70-30 120 90 119 12L 70-31 70-32 70-33 70-34 70-35 70-36 70-37 70-38 70-39 70-40 12L 70-41 70-42 70-43 70-44 70-45 REC-01 125 62 81 12L ARM CUFF REC-02 114 66 84 ARM CUFF REC-03 124 79 79 ARM CUFF REC-04 119 72 75 ARM CUFF REC-05 113 71 75 12L 04/28/2024 MRI brain wo IMPRESSION: Age-appropriate MRI of the brain without evidence of an acute intracranial process or mass. Blood studies Latest Ref Rng 07/09/2024 07/13/2024 07/26/2024 08/20/2024 08/24/2024 08/31/2024 WBC 3.70 - 11.00 k/uL 4.59 RBC 3.90 - 5.20 m/uL 5.06 Hemoglobin 11.5 - 15.5 g/dL 15.4 Hematocrit 36.0 - 46.0 % 44.1 MCV 80.0 - 100.0 fL 87.2 MCH 26.0 - 34.0 pg 30.4 MCHC 30.5 - 36.0 g/dL 34.9 RDW-CV 11.5 - 15.0 % 12.8 Platelet Count 150 - 400 k/uL 287 MPV 9.0 - 12.7 fL 9.9 Neut% % 61.5 Abs Neut (ANC) 1.45 - 7.50 k/uL 2.82 Lymph% % 28.3 Abs Lymph 1.00 - 4.00 k/uL 1.30 Lamar% % 7.4 Abs Lamar <0.87 k/uL 0.34 Eosin% % 1.3 Abs Eosin <0.46 k/uL 0.06 Baso% % 1.1 Abs Baso <0.11 k/uL 0.05 Immature Gran % % 0.4 IMMATURE GRANS (ABS) <0.10 k/uL <0.03 NRBC /100 WBC 0.0 Absolute nRBC <0.01 k/uL <0.01 DTYPE Auto Color yellow Colorless Clarity Clear Clear Glucose, Urine Trace, Negative Negative Bilirubin, Urine Negative Negative Ketones, Urine Negative, Trace Negative Specific [place], Ur 1.005 - 1.030 1.004 (L) Hemoglobin/Blood,Ur Negative, Trace Negative pH, Urine 5.0 - 8.0 6.5 Protein, Urine Trace, Negative Negative Urobilinogen Normal Normal Nitrites Negative Negative Leukest Negative, 25 Vijaya/uL 25 Vijaya/uL WBC, Urine 0-5 /HPF 0-5 /HPF RBC, Urine 0-3 /HPF 0-3 /HPF Bacteria None Seen /HPF Rare ! Epithelial Cells /HPF Few Protein, Total 6.3 - 8.0 g/dL 7.2 6.7 Albumin 3.9 - 4.9 g/dL 4.8 4.5 Calcium 8.5 - 10.2 mg/dL 9.5 9.6 9.3 Bilirubin, Total 0.2 - 1.3 mg/dL 0.3 0.3 Alkaline Phosphatase 34 - 123 U/L 79 66 AST 13 - 35 U/L 27 26 ALT 7 - 38 U/L 28 24 Glucose 74 - 99 mg/dL 72 (L) 94 142 (H) BUN 7 - 21 mg/dL 9 8 14 Creatinine 0.58 - 0.96 mg/dL 0.74 0.84 0.70 Sodium 136 - 144 mmol/L 138 141 140 Potassium 3.7 - 5.1 mmol/L 3.9 3.6 (L) 3.8 Chloride 98 - 107 mmol/L 100 106 106 CO2 22 - 30 mmol/L 27 29 24 Anion Gap 8 - 15 mmol/L 11 6 (L) 10 eGFR >=60 mL/min/1.73m 115 98 122 OmegaCheck >5.4 % by wt 3.0 (L) Arachidonic Acid/EPA Ratio 3.7 - 40.7 67.6 (H) [place]-6/[place]-3 Ratio 3.7 - 14.4 14.4 [place]-3 Total % by wt 3.0 [place] EPA 0.2 - 2.3 % by wt 0.2 [place] DPA 0.8 - 1.8 % by wt 1.0 [place] DHA 1.4 - 5.1 % by wt 1.7 [place]-6 Total % by wt 42.8 Arachidonic Acid 8.6 - 15.6 % by wt 15.6 Linoleic Acid 18.6 - 29.5 % by wt 23.1 Anti-SSA <1.0 AI <0.2 Anti-SSB <1.0 AI <0.2 SSA Antibody Qual Negative Negative SSB Antibody Qual Negative Negative CCP Antibody IgG Qualitative Negative Negative CCP Antibody, IgG <20 Units <15 CONVEYOR TECHNICIAN Antibody QUAL Negative Negative Anti-CONVEYOR TECHNICIAN <1.0 AI <0.2 Hemoglobin A1C 4.3 - 5.6 % 4.7 Estimated Average Glucose mg/dL 88 PT Sec 9.7 - 13.0 sec 11.1 PT INR 0.9 - 1.3 1.0 Metanephrine, Plasma 12 - 67 pg/mL 41 Normetanephrine, Free Plasma 18 - 101 pg/mL 96 Vitamin D 25 Hydroxy 31.0 - 80.0 ng/mL 18.1 (L) CRP <0.9 mg/dL 0.6 Ferritin 14.7 - 205.1 ng/mL 51.8 Copper 80 - 155 ug/dL 89 Zinc 60 - 120 ug/dL 62 Manganese, Blood 4.4 - 15.2 ug/L 8.0 Chromium <0.6 ug/L <0.5 Rheumatoid Factor <16 IU/mL <10 CK 42 - 196 U/L 38 (L) 33 (L) Hydroxyprogesterone <=206.00 ng/dL 137.86 HCG Qualitative, Urine Negative Negative d Dimer <500 ng/mL FEU <190 <190 TROPONIN I HIGH SENSITIVITY <=20.7 pg/mL <2.0 Magnesium 1.7 - 2.3 mg/dL 2.0 ALYSON High Sensitivity <12 ng/L 11 ALYSON High Sensitivity 16 (H) ALYSON High Sensitivity <6 TSH 0.270 - 4.200 mIU/L 2.030 1.510 T3 79 - 165 ng/dL 92 Free T4 0.9 - 1.7 ng/dL 1.3 Tryptase <8.4 ug/L 3.8 Legend: (L) Low (H) High ! Abnormal IMPRESSION/PLAN: (G90.A) POTS (postural orthostatic tachycardia syndrome) (primary encounter diagnosis) (R00.0) Tachycardia (R20.8) Burning sensation Amie Braxton is a 29 year old female with history of asthma, migraines, distal esophageal spasms (CHUCK), PCOS, SVT, and palpitations . Patient roomed over 35 minutes into visit slot due to late arrival. Portions of history, exam, and plan are shortened to accommodate this. Recommended patient make another appointment to discuss additional concerns not addressed today. She presents today for an evaluation of autonomic dysfunction. Patient has had ongoing symptoms of orthostatic tachycardia and blood pooling most her life. 2020 had acquired covid infection, increased symptoms with tachycardia, dizziness, and lightheadedness. Within the last year she experiences a burning sensation/paresthesias down left side of her body (arm and leg) starting from the top of herhead or left chest, progressing/worsening, occurring multiple times a day lasting minutes to 1 hour. Dizziness is constant, not necessarily positional. Has seen Dr. Mauro in neurology as well. MRI brain wo contrast unremarkable, no demyelinating lesions. Cervical xray also unremarkable. Had seen ENT as well, who did not think BPPV or menieres. She's in vestibular therapy, which she hasn't noticed any improvement yet. Serum Metanephrines normal. Had seen cardiology (Dr. Schafer) and EP at [facility] unremarkable echocardiogram and CTA coronaries, Holter monitor revealing sinus tachycardia, average HR 96 bpm. Tilt table test at [facility] 04/26/2024 diagnostic for POTS. Recently started Ivabradine 2.5mg BID with Dr. Schafer. She has already noticed an improvement in resting heart rates. Exam today overall unremarkable, some mild temperature reduction to bilateral ankles noted. She does have positive autonomic features. Reasonable to explore for autonomic dysfunction and/or autonomicneuropathy, plan for ANS and QSART. I did discuss with patient she will need to hold her [id number] hours prior to ANS, she will reach out to inform Dr. Schafer. Reinforced conservative measures including hydration, sodium, compression, and exercise. Plan: ANS without tilt QSART Continue Ivabradine Follow up after testing (3-4 months) I spent a total of 35 minutes on the date of the service which included preparing to see the patient, [id number] patient care, completing clinical documentation, obtaining and/or reviewing separately obtained history, performing a medically appropriate examination, counseling and educating the pat ient/family/caregiver, and ordering medications, tests, or procedures. Mo Guzman APRN.[facility] Neuromuscular Medicine [address] [place] [address]. [id number] Appointment: [phone] documented in this encounterK[facility] NoteOhio[facility] Telephone encounter Note* Telephone Encounter - Susan Vides RN - 09/10/2024 5:06 PM EST MC message also sent by patient. Responded in message [facility]-03[facility] Miscellaneous Notes* Telephone Encounter - Susan Vides RN - 09/10/2024 5:06 PM EST MC message also sent by patient. Responded in message * Telephone Encounter - Tami Edwards - 09/10/2024 10:33 AM EST September 10, 2024 Patient Contact Number: [phone] (home) [phone] (cell) Patient last seen within the last year: Yes , Date last seen on: 08/30/24 Reason For Call: Test Results; Patient would like you to know that she had a negative MAST CELL test. She would also like her EKG, ECHO, MONITOR, AND LAB results released to [facility] and know what they mean? Physician:Yuan Schafer MD Patient was informed that non-urgent calls may be returned within the next three business days. Yes Please advise. Tami Arana IC [id number] documented in this encounterK[facility]03-03-2025 NoteOhio[facility]03-03-[facility] History of Present illness Narrative* Yuan Schafer MD - 09/10/2024 1:25 PM EST Images from the original note were not included. EP Staff Note No listed medication interaction on Lexicomp between amitriptyline and ivabradine: Yuan Schafer MD Cardiac Electrophysiology September 10, 2024 documented in this encounterK[facility]03-03-2025 Telephone encounter Note * Telephone Encounter - Tj Foster - 09/10/2024 12:31 PM EST PT called back appointment scheduled. Tj Foster [facility]03-03-2025 Miscellaneous Notes* Telephone Encounter - Tj Foster - 09/10/2024 12:31 PM EST PT called back appointment scheduled. Tj Foster documented in this encounterK[facility]03-[facility]-2025 Telephone encounter Note * Telephone Encounter - Tami Edwards - 09/10/2024 10:33 AM EST September 10, 2024 Patient Contact Number: [phone] (home) [phone] (cell) Patient last seen within the last year: Yes , Date last seen on: 08/30/24 Reason For Call: Test Results; Patient would like you to know that she had a negative MAST CELL test. She would also like her EKG, ECHO, MONITOR, AND LAB results released to [facility] and know what they mean? Physician:Yuan Schafer MD Patient was informed that non-urgent calls may be returned within the next three business days. Yes Please advise. Tami Arana IC 955 [facility]25 [facility]02-26-2025 Procedure note* Yang Workman PA-C - 09/05/2024 10:54 AM EST PROCEDURE NOTE: Bilateral Cerumen Impactions Description: Suction was used to remove the cerumen impactions. The patient tolerated this well. The ears were examined following the procedure. Exam: Right ear: There was no visible damage to the EAC or TM during instrumentation. EAC is without inflammatory changes, free of debris. Visualized TM is not inflamed and with normal landmarks, not retracted or bulging. TM is mobile on pneumatic otoscopy. Left ear: There was no visible damage to the EAC or TM during instrumentation. EAC is without inflammatory changes, free of debris. Visualized TM is not inflamed and with normal landmarks, not retracted or bulging. TM is mobile on pneumatic otoscopy. [facility] Procedure note* Yang Workman PA-C - 09/05/2024 10:54 AM EST PROCEDURE NOTE: Bilateral Cerumen Impactions Description: Suction was used to remove the cerumen impactions. The patient tolerated this well. The ears were examined following the procedure. Exam: Right ear: There was no visible damage to the EAC or TM during instrumentation. EAC is without inflammatory changes, free of debris. Visualized TM is not inflamed and with normal landmarks, not retracted or bulging. TM is mobile on pneumatic otoscopy. Left ear: There was no visible damage to the EAC or TM during instrumentation. EAC is without inflammatory changes, free of debris. Visualized TM is not inflamed and with normal landmarks, not retracted or bulging. TM is mobile on pneumatic otoscopy. documented in this encounterKettering [facility]02-26-2025 [facility]02-26-2025 History of Present illness Narrative* Yang Workman PA-C - 09/05/2024 10:30 AM EST Images from the original note were not included. HPI: Amie Braxton is a 29 year old female who reports today with dizzy complaints: Presents c/o a swaying sensation as if she's on a boat, for over a year, had been mild and infrequent sensations for a year prior, now worsened over the past year. Feels she's listing off-balance when walking, generally worsened with movement. Did have severe left ear ache in January 2024, is mild nowand intermittent. Started having tinnitus, described as static in both ears since April, worsens in intensity at times. Denies any other known ear disorders. Denies any neck complaints. Denies fam hx of vertigo or ear disorders. Denies noise exposure hx. Denies any new meds or changes to health before onset. Yary lost hearing in twenties. Diagnosed with POTs in February of last year. Had negative MRI ordered by neurology which was negative. Also followed with [facility] clinic. Has seen VPT twice and POTS PT since April without significant improvement. I reviewed the allergies, medications, problem list, PMH/PSH, FmHx and SocHx as documented per EMR. Physical Exam BP 111/76 Pulse 109 Resp 18 Ht 154.9 cm (5' 1) Wt 47.2 kg (104 lb) LMP 08/24/2024 (Approximate) BMI 19.65 kg/m General: Appears to be in no acute distress, normal affect Head/Face: Facial muscles appear to be functioning normally. TMJs move freely, without popping or clicking, are nontender. Neck: There are no palpable salivary gland masses, no thryoid mass or thyromegaly, no neck masses or lymphadenopathy. Eyes: Extraocular movements appear intact. Ears: Right Ear: External ear is without lesions. EAC obstructed by cerumen Left Ear: External ear is without lesions. EAC obstructed by cerumen Nose: External nose is without lesions or deformity. Nasal mucosa appears healthy and without obvious lesions or masses on nasal speculum exam. The septum is deviated bilaterally nonobstructive. The inferior turbinates are not hypertrophic. Oral Cavity/Oropharynx: The lips are without lesions. The tongue and floor of the mouth are withoutlesions. The soft palate and posterior pharynx are without lesions. Gingival mucosa is without lesions. Tonsils are not enlarged and without lesions. Neuro: Cranial nerves II - XII grossly intact Data: Assessment & Plan I counseled the patient about the differential diagnosis, natural course, treatment options and answered their questions for Diagnoses and all orders for this visit: Cerumen impaction bilateral Bilateral cerumen impactions were cleared. Advised to treat monthly w/ peroxide soaks to prevent build-up, advised to use debrox drops prior to any future cleaning visit. Tinnitus, bilateral Ear pressure, left Dysequilibrium - VSTBLR FUNCJ NYSTAG FOVL&PERPH STIMJ OSCIL TRKG Audiometry/tympanometry unremarkable for age, however with bilateral low- frequency deficit relativeto upper frequencies. Had negative MRI 04/28/2024. Hx/exam not consistent with BPPV, nor definitiveM ni re's disease, we did discuss the possibility of possible developing M ni re's disease. VNG testing ordered to evaluate vestibular function, patient already in vestibular PT. Followup Return in about 6 weeks (around 10/17/2024) for dizzy eval after VNG results available. Yang Workman PA-C Time: 45 minutes: Time includes preparation, obtaining/reviewing history, exam, interpreting results, ordering, counseling/education, referring/communicating and documentation. -Created using voice recognition software, some errors may have occurred. Corrections may be performed at a later date PROCEDURE NOTE: Bilateral Cerumen Impactions Description: Suction was used to remove the cerumen impactions. The patient tolerated this well. The ears were examined following the procedure. Exam: Right ear: There was no visible damage to the EAC or TM during instrumentation. EAC is without inflammatory changes, free of debris. Visualized TM is not inflamed and with normal landmarks, not retracted or bulging. TM is mobile on pneumatic otoscopy. Left ear: There was no visible damage to the EAC or TM during instrumentation. EAC is without inflammatory changes, free of debris. Visualized TM is not inflamed and with normal landmarks, not retracted or bulging. TM is mobile on pneumatic otoscopy. [facility] History of Present illness Narrative* Rubi Goncalves, SHANE - 09/05/2024 9:34 AM EST [facility] ENT September 05, 2024 Amie Braxton was seen today for audiometric testing as part of her appointment today with Yang Hiro BERNARDO. The patient reports noticing for the past few months that sounds are quieter in her left ear. She also reports dizziness and ringing in both ears. PHYSICAL EXAMINATION: Otoscopic inspection revealed partial cerumen occlusion of the right ear and non occluding cerumen in the left TEST RESULTS: Audiometric testing revealed pure tone thresholds within normal limits bilaterally. Speech receptionist secretary thresholds agree with pure tone thresholds bilaterally. Speech discrimination testing revealed excellent speech understanding ability bilaterally. Tympanometry revealed normal tympanicmembrane mobility and middle ear pressure bilaterally. AUDIOGRAM MAY BE VIEWED IN PROCEDURES RECOMMENDATIONS/PLAN: Yang Workman will review audiometric test results with the patient. SHANE Best documented in this [facility]25 [facility]02-[facility] History of Present illness Narrative* Concepcion Toth MD - 09/04/2024 9:44 AM EST Images from the original note were not included. [facility] SECTION OF CARDIAC PACING and ELECTROPHYSIOLOGY OUTPATIENT VISIT DATE September 04, 2024 OUTPATIENT VISIT TYPE NEW PRIMARY CARE PHYSICIAN: Daniel Guerrero [facility] [place] [address] REFERRING PHYSICIAN: Ramses Pyle MD. HISTORY OF PRESENT ILLNESS: 29-year-old female referred for evaluation for suspected supraventricular tachycardia. Ms. Braxton reports 6 to 12-month history of dizziness, fatigue, and mental fog. The symptoms initially occurred upon assumption of upright position, but now can happen while sitting as well. She had multiple episodes of presyncope without injury. She describes palpitation as well, usually while upright. She describes exertional dyspnea and nonexertional sharp constant left- sided chest pain. Over the past few weeks she had more pronounced palpitation, was in the ER twice, both times had sinus tachycardia. D-dimer was low on both occasions. A week ago she started evaluation by Dr. Schafer at [facility] for suspected form of autonomic dysfunction. She is being scheduled for echocardiogram, repeat Holter monitor, thyroid testing, neurology evaluation. She was started on low-dose ivabradine for suspected inappropriate sinus tachyca rdia. ECG in office shows sinus tachycardia at 132 beats minute. Coronary CTA in 2023 showed no significant epicardial disease. Echo demonstrated preserved systolic function and no significant valvular issues. Several Holter monitors that showed sinus rhythm and sinus tachycardia no clear evidence of supraventricular cardia. Tilt table in 2023 was suggestive of POTS. PAST MEDICAL HISTORY Diagnosis Date Asthma Generalized anxiety disorder Migraines PCOS (polycystic ovarian syndrome) POTS (postural orthostatic tachycardia syndrome) Tilt x2 ([facility]) Seasonal allergies Syncope MEDICATIONS: ivabradine (CORLANOR) 5 mg tablet^Take 2.5 mg by mouth two times a day.^Disp: 30 tablet^Rfl: 5 amitriptyline (ELAVIL) 25 mg tablet^Take 1 tablet by mouth daily at bedtime.^Disp: 30 tablet^Rfl: 0 bisoprolol (ZEBETA) 5 mg tablet^Take 1 tablet by mouth once daily.^Disp: 30 tablet^Rfl: 5 budesonide-formoterol (SYMBICORT) 160-4.5 mcg/actuation inhaler^Inhale 2 Puffs as instructed two times a day.^Disp: 10.2 g^Rfl: 5 EPINEPHrine (EPIPEN) 0.3 mg/0.3 mL auto-injector^Inject 0.3 mg intramuscularly as needed.^Disp: ^Rfl: fludrocortisone (FLORINEF) 0.1 mg tablet^Take 0.05 mg by mouth once daily.^Disp: ^Rfl: (Patient nottaking: Reported on 08/30/2024) nitroglycerin sublingual (NITROQUICK) 0.3 mg SL tablet^Dissolve 1 tablet under the tongue one time only for 1 dose. To be administered in Radiology for CTA exam^Disp: 1 tablet^Rfl: 0 REVIEW OF SYSTEMS: Review of Systems Constitutional: Positive for fatigue. Negative for fever. HENT: Negative for hearing loss. Eyes: Negative for pain. Respiratory: Positive for chest tightness and shortness of breath. Negative for cough. Cardiovascular: Positive for chest pain and palpitations. Negative for leg swelling. Gastrointestinal: Negative for abdominal pain and blood in stool. Endocrine: Negative for cold intolerance. Genitourinary: Negative for hematuria. Musculoskeletal: Negative for back pain. Skin: Negative for pallor. Neurological: Positive for dizziness, syncope, weakness and light-headedness. Psychiatric/Behavioral: Positive for decreased concentration. The patient is not nervous/anxious. PHYSICAL EXAMINATION: BP 128/62 (BP Site: Right Arm, BP Position: Sitting, BP Cuff Size: Regular Adult) Pulse (!) 138 Resp 18 Ht 5' 1 (1.549 m) Wt 104 lb (47.2 kg) LMP 08/24/2024 (Approximate) SpO2 99% BMI 19.65 kg/m BP w/Orthostatic Vitals Date and Time Orthostatic BP Orthostatic Pulse BP Pulse BP Position BP Site BP Cuff Size 09/04/24913 -- -- 128/62 138 Sitting Right Arm Regular Adult Peak Flow Date and Time PF Resp 09/04/24913 -- 18 Physical Exam Constitutional: General: She is not in acute distress. Appearance: She is well-developed. HENT: Head: Normocephalic and atraumatic. Eyes: General: No scleral icterus. Conjunctiva/sclera: Conjunctivae normal. Pupils: Pupils are equal, round, and reactive to light. Cardiovascular: Rate and Rhythm: Regular rhythm. Tachycardia present. Pulmonary: Effort: No respiratory distress. Breath sounds: No stridor. No wheezing or rales. Abdominal: Tenderness: There is no abdominal tenderness. Skin: General: Skin is warm and dry. Findings: No rash. Neurological: Mental Status: She is alert and oriented to person, place, and time. Psychiatric: Mood and Affect: Mood normal. I have personally reviewed the Electrocardiogram Assessment PLAN AND RECOMMENDATIONS: 29-year-old female with suspected autonomic dysfunction, undergoing evaluation at the syncope center at [facility]. Available tracings demonstrate sinus tachycardia, rather than supraventriculartachycardia. The patient was started on low-dose ivabradine. The patient is inquiring about catheter ablation. Given no evidence for conventional supraventricular tachycardia, would not recommend an i nvasive electrophysiologic study. The patient should proceed with evaluation at the [facility] as outlined previously. ASSESSMENT/PLAN: 1. Sinus tachycardia - ICD9: 427.89, ICD10: R00.0 Concepcion Toth MD CONTACT INFORMATION: Concepcion Toth MD * Rona Baez MA - 09/04/2024 9:13 AM EST Patient complains of chest pains palpitations and sob at times. documented in this [facility] NoteHNO ID: [id number] Author: RONA BAEZ MA Service: ? Author Type: [employer] Type: Progress Notes Filed: 09/04/2024 09:59 Note Text: Patient complains of chest pains palpitations and sob at times.[facility]02-[facility] History and physical note* Daniel Mauro MD - 09/03/2024 3:00 PM EST 15:00 - 16:02 Chart Review Parenthetic [comments] and tinted emphasis mine. When last seen, 04/03/24, my impression was: I will check Amie's topiramate level, and assuming it is not too high, will increase her topiramate dose. Again, I suspect her imbalance may be due to migraine, and if it is, then it may (eventually) yield to topiramate. On the other hand, seeing the carpet which made her dizzy, I am at least as persuaded that this is PPPV. I will refer her Dr. Joann Braxton. ------ I do not find a topiramate level in Epic. ------ Dr. Braxton's notes reviewed. ====== 08/31/24, Ms. Braxton let me know of her recent symptoms via [employer]: ... I wanted to give some updates before our appointment because a lot of things have changed. I recalled that I had taken Topiromate in 2022 and had those charts faxed over to your office from the previous neurologist I had seen when I was on different insurance. I forgot that I had been on it before when we last spoke. I've been charting my symptoms since and the dizziness and headaches/migraines don't seem to be correlated with each other. I've also developed new symptoms the last time we saw each other. Those include: - nerve pain ( burning on my left arms in random spots, in the back of my head or whole head/left side, burning on left leg). Sometimes it feels like I rubbed icy hot all over my left arm/shoulder area. I'll also have random stinging that will occur. Also severe chest burning. - facial vibrations: I've woken up several times to it feeling like my face is vibrating. - heart issues not connected to POTS (you can see my most recent ER visits and my visit to Dr. Schafer) I've had a lot of heart testing done by my skin pass operator Dr. 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 - saw Rheumatology: they told me to seek out nerve testing since a lot of my symptoms sound like nerve damage of some kind. They ordered lots of blood work and x-rays, and suggested I follow up with you since I tested negative for autoimmune [?]. ====== Amie described her symptoms to her skin pass operator, Dr. Pyle, on 08/23/24 via [employer]!t: ...what happened this past Tuesday...I went in to the ER because of chest pain and I felt like my heart was beating extremely abnormally. The pain started while I was just laying down in my car, waiting for my Vestibular appointment, so I wasn't doing anything strenuous. My HR went from 80 to 125, while laying down. A quick version of how it went: -chest pains started -went to ER, threw up on arrival -they brought me back to room, 1 EKG super abnormal (they actually were going to do 2 but didn't have time to perform second EKG) - Head started burning and stinging out of nowhere - Started to go in and out of consciousness (this has NEVER happened before) It felt like my body was shutting down. - heart rate spiked significantly - nurse called for ER doctor as they thought I was in SVT (HR up to 175) - brought in the defibrillator, but performed Valsalva maneuver twice to bring my heart rate down - after both attempts, I was coughing heavily in between - HR came down from 175 to 130s after the two rounds of the Valsalva maneuver, but maintained this level for about an hour before coming down As you can imagine, I am in a lot of shock because this was triggered while I was doing nothing. Since then I have been fearing for my life, I don't believe this could be connected to the POTS but I'm unsure. The ER team was made aware that I had POTS as well. ====== She was seen by skin pass operator Dr. Yuan Schafer on 08/30/24. His impression was: #. Sinus tachycardia. 08/30/2024: The differential diagnosis for sinus tachycardia includes secondary sinus tachycardia vs Inappropriate Sinus Tachycardia (IST) vs Postural Tachycardia Syndrome (POTS). Her heart rates while supine today are 140 bpm on ECG (sinus tachycardia), 126 bpm on orthostatic vitals, raising the concern for secondary sinus tachycardia vs Inappropriate Sinus Tachycardia (IST). Of note, these supine heart rates are significantly faster than the supine heart rates on the OSH Tilt Table Test in 2022 (81 bpm) and 2023 (79 bpm). Recommend that the patient's physicians continue to assess for and treat any underlying primary conditions that may result in a secondary sinus tachycardia. Her d-dimer levels were low recently on both 08/20/2024 and 08/24/2024. Hb level 08/24/2024 was normal at 15.4. Check labs today: plasma metanephrines and TSH/T3/T4. Given her allergies and asthma, advised she discuss with her Slag Motor Operator regarding possible Mast CellActivation Syndrome (MCAS), Given her PCOS, advised she discuss with her Enterprise Data Architect regarding underlying hormonal concerns. Recommend follow up with PCP to assess for possible underlying infectious concerns. A 24hr Holter monitor will be requested to assess average heart rate, as well as heart rhythm. [A two week Zio patch showed sinus rhythm at varying rates last year]. An Echocardiogram will be requested to assess for structural abnormalities [another is pending]. If other evaluations are unrevealing, then can consider Autonomic Function testing. Discussed the possible benefit of ivabradine for heart rate slowing and she agrees; will start at 2.5 mg BID. ------ Metanephrines were drawn 08/31/24 and are pending. 08/31/24 - TSH 1.51; T4 1.3; 92 Echocardiogram is pending. Holter is pending. ====== Of note, regarding tachycardia, Ms. Braxton is prescribed amitriptyline 25 mg qhs. ====== Problem List includes asthma, anxiety, and globus. ====== With that preamble, Amie reports that she has seen Dr. Pyle and Dr. Schafer regarding her rapid heart rate and there is concern that her problem might be neurologic rather than cardiologic. She has been diagnosed withPOTS first diagnosed in February,. She reports as well burning pains in her left parietal area, left occiput, and left anterior axillary fold. Amie tells me these burning pains began in January,. They are intermittent, and can occur asynchronously of each other. They occur when she is sedentary. She has, however, had other areason her left side affected - never her right side, though. She has been taking 12.5 mg of amitriptyline qhs as a replacement for trazodone. She has undergone cardiologic and rheumatologic testing; MRIbrain which was performed on 04/28/24 proved normal. She has been having lightheadedness [like when you get up too fast - but she has started having it laying down as well] and vertigo-like spells [like the swirls on the carpet being disturbing when she walks PAST MEDICAL HISTORY Diagnosis Date Asthma Generalized anxiety disorder Migraines PCOS (polycystic ovarian syndrome) POTS (postural orthostatic tachycardia syndrome) Tilt x2 ([facility]) Seasonal allergies Syncope PAST SURGICAL HISTORY Procedure Laterality Date TONSILLECTOMY & ADENOIDECTOMY Social History Tobacco Use Smoking status: Never Smokeless tobacco: Never Vaping Use Vaping status: Never Used Substance Use Topics Alcohol use: Never Drug use: Never FAMILY HISTORY Problem Relation Age of Onset other (palpitations) Mother stress No Known Problems Father No Known Problems Sister Skin Cancer Maternal Grandmother Diabetes Paternal Grandmother Current Outpatient Medications on File Prior to Visit Medication Sig fludrocortisone (FLORINEF) 0.1 mg tablet Take 0.05 mg by mouth once daily. (Patient not taking: Reported on 08/30/2024) ivabradine (CORLANOR) 5 mg tablet Take 2.5 mg by mouth two times a day. amitriptyline (ELAVIL) 25 mg tablet Take 1 tablet by mouth daily at bedtime. nitroglycerin sublingual (NITROQUICK) 0.3 mg SL tablet Dissolve 1 tablet under the tongue one time only for 1 dose. To be administered in Radiology for CTA exam bisoprolol (ZEBETA) 5 mg tablet Take 1 tablet by mouth once daily. (Patient taking differently: Take 5 mg by mouth as needed (PRN for HRs > 135/140 bpm).) budesonide-formoterol (SYMBICORT) 160-4.5 mcg/actuation inhaler Inhale 2 Puffs as instructed two times a day. EPINEPHrine (EPIPEN) 0.3 mg/0.3 mL auto-injector Inject 0.3 mg intramuscularly as needed. Current Facility-Administered Medications on File Prior to Visit Medication cyanocobalamin 1,000 mcg injection PHYSICAL EXAM General: Alert, conversant, appropriate, young, FEMALE, in no apparent distress. She arrives by wheelchair today - but she only uses one on particularly symptomatic days, for longer distances is monitoring her heart rate continuously with a finger-mounted monitor. Her feet are cool, sweaty and dusky despite just having taken her shoes off. Unlike erythromelalgia, they are not burning. She has only taken bisoprolol once - it is not in her system now. She tells me her hands - less often - look jeffrey feet do today. Vital Signs: BP 137/84 (BP Site: Left Arm, BP Position: Supine) Pulse (!) 144 Ht 152.4 cm (5') Wt 105 kg (231 lb 7.7 oz) LMP 08/24/2024 (Approximate) BMI 45.21 kg/m - reviewed. Neurologic: Cranial Nerves: Pin was diminished in her right cheek. No nystagmus is unmasked by the abolition of visual fixation afforded by fundoscopic. Pursuit eye movements normal, without any pathologic nystagmus. Horizontal saccadic eye movements were normal. Head impulse test normal with right and left head turning. Olfaction is normal to orange extract. Monocular visual weeks intact to finger counting. Funduscopic reveals flat discs. Pupils equal, round and reactive to light. Pursuit eye movements normal. Facies symmetric. Hearing normal to 1024 Hz tuning fork. Palatal movement, phonation, and resonation normal. Trapezius and SCM 5/5 and symmetric. Tongue movement symmetric. Sensory: Normal on testing pin, vibration, and joint position sense. Motor: Strength was 5/5 and symmetric on testing finger abduction, finger extension, elbow flexion, elbow extension, shoulder abduction, toe dorsiflexion, ankle dorsiflexion, ankle plantar flexion, knee flexion, knee extension, and hip flexion. Tone was normal. Posture was normal. There was no atrophy. There were no fasciculations. There wereno involuntary movements. Coordination: [id number] was normal. Finger and toe wiggling rapid alternating movements were normal. Standing in Romberg's position with eyes open and closed was normal. Gait: Normal. Deep Tendon Reflexes: Plantars were flexor bilaterally. Biceps 2 and symmetric. Triceps 2 and symmetric. Patellar 3- and symmetric (mild spread to hip flexors bilaterally). Achilles 2+ and symmetric (elicitable by dorsiflexion). IMPRESSION AND PLAN: I do not find any neurologic correlate for Ms. Braxton's presenting symptoms on neurologic exam. As regards tachycardia, though, little on neurologic examination reflects autonomic function. Her pupils are mydriatic, but that is not unusual in one's 20's. Her feet were moist, dusky, and cool to the touch - despite having had shoes on until a moment before - making me wonder whether she has Raynaud's phenomenon. (It was not present in her hands). Lightheadedness is usually a correlate of hypotension, though one can see it with hypoxemia or marked hypoglycemia - though I have no reason to suspect the latter two situations. It is unusual, too, for hypotension to persist despite being supine. One could see supine lightheadedness with hyperventilation (as it is caused by physiologic vasoconstriction). Because I do not have the expertise to investigate the autonomic nervous system, I am going to refer Amie to Neuromuscular/autonomic neurology for consideration of work up. I do not have a ready explanation for her exclusively left sided, patchy burning pains. They do notresemble any entity I know. Sometimes one treats enigmatic complaints empirically (eg, amitriptyline for pains which may be neurogenic) - but considering her tachycardia, I do not want to do that here. I have contacted Samra Rose of GI regarding the amitriptyline in place for her esophageal spasm - 12.5 mg qhs. I asked whether, considering her tachycardia, there might be a different agent for the esophageal spasm which would not be anticholinergic. It seems there may be; Amie should schedule with her as soon after the 3 week point of amitriptyline treatment as possible to that end. I am still persuaded that the other sort of dizziness that Amie gets - not the lightheadedness, but the 'room moving' she feels with certain visual stimuli (the swirly carpet) reflects PPPV. I will be glad to see Amie back as the need arises. Sincerely, Daniel Mauro MD Staff, General Neurology I spent 62 minutes in this visit face to face with the patient, with more than 50% of the time devoted to patient counseling with regard to the impression, patient education, interpretation of the studies, the diagnosis, treatment options, theneed for further diagnostic testing, and coordination ofcare. [facility]02-24-2025 History and physical note* Daniel Mauro MD - 09/03/2024 3:00 PM EST 15:00 - 16:02 Chart Review Parenthetic [comments] and tinted emphasis mine. When last seen, 04/03/24, my impression was: I will check Amie's topiramate level, and assuming it is not too high, will increase her topiramate dose. Again, I suspect her imbalance may be due to migraine, and if it is, then it may (eventually) yield to topiramate. On the other hand, seeing the carpet which made her dizzy, I am at least as persuaded that this is PPPV. I will refer her Dr. Joann Braxton. ------ I do not find a topiramate level in Epic. ------ Dr. Braxton's notes reviewed. ====== 08/31/24, Ms. Braxton let me know of her recent symptoms via [employer]: ... I wanted to give some updates before our appointment because a lot of things have changed. I recalled that I had taken Topiromate in 2022 and had those charts faxed over to your office from the previous neurologist I had seen when I was on different insurance. I forgot that I had been on it before when we last spoke. I've been charting my symptoms since and the dizziness and headaches/migraines don't seem to be correlated with each other. I've also developed new symptoms the last time we saw each other. Those include: - nerve pain ( burning on my left arms in random spots, in the back of my head or whole head/left side, burning on left leg). Sometimes it feels like I rubbed icy hot all over my left arm/shoulder area. I'll also have random stinging that will occur. Also severe chest burning. - facial vibrations: I've woken up several times to it feeling like my face is vibrating. - heart issues not connected to POTS (you can see my most recent ER visits and my visit to Dr. Schafer) I've had a lot of heart testing done by my skin pass operator Dr. 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 - saw Rheumatology: they told me to seek out nerve testing since a lot of my symptoms sound like nerve damage of some kind. They ordered lots of blood work and x-rays, and suggested I follow up with you since I tested negative for autoimmune [?]. ====== Amie described her symptoms to her skin pass operator, Dr. Pyle, on 08/23/24 via [employer]: ...what happened this past Tuesday...I went in to the ER because of chest pain and I felt like my heart was beating extremely abnormally. The pain started while I was just laying down in my car, waiting for my Vestibular appointment, so I wasn't doing anything strenuous. My HR went from 80 to 125, while laying down. A quick version of how it went: -chest pains started -went to ER, threw up on arrival -they brought me back to room, 1 EKG super abnormal (they actually were going to do 2 but didn't have time to perform second EKG) - Head started burning and stinging out of nowhere - Started to go in and out of consciousness (this has NEVER happened before) It felt like my body was shutting down. - heart rate spiked significantly - nurse called for ER doctor as they thought I was in SVT (HR up to 175) - brought in the defibrillator, but performed Valsalva maneuver twice to bring my heart rate down - after both attempts, I was coughing heavily in between - HR came down from 175 to 130s after the two rounds of the Valsalva maneuver, but maintained this level for about an hour before coming down As you can imagine, I am in a lot of shock because this was triggered while I was doing nothing. Since then I have been fearing for my life, I don't believe this could be connected to the POTS but I'm unsure. The ER team was made aware that I had POTS as well. ====== She was seen by skin pass operator Dr. Yuan Schafer on 08/30/24. His impression was: #. Sinus tachycardia. 08/30/2024: The differential diagnosis for sinus tachycardia includes secondary sinus tachycardia vs Inappropriate Sinus Tachycardia (IST) vs Postural Tachycardia Syndrome (POTS). Her heart rates while supine today are 140 bpm on ECG (sinus tachycardia), 126 bpm on orthostatic vitals, raising the concern for secondary sinus tachycardia vs Inappropriate Sinus Tachycardia (IST). Of note, these supine heart rates are significantly faster than the supine heart rates on the OSH Tilt Table Test in 2022 (81 bpm) and 2023 (79 bpm). Recommend that the patient's physicians continue to assess for and treat any underlying primary conditions that may result in a secondary sinus tachycardia. Her d-dimer levels were low recently on both 08/20/2024 and 08/24/2024. Hb level 08/24/2024 was normal at 15.4. Check labs today: plasma metanephrines and TSH/T3/T4. Given her allergies and asthma, advised she discuss with her Slag Motor Operator regarding possible Mast CellActivation Syndrome (MCAS), Given her PCOS, advised she discuss with her Enterprise Data Architect regarding underlying hormonal concerns. Recommend follow up with PCP to assess for possible underlying infectious concerns. A 24hr Holter monitor will be requested to assess average heart rate, as well as heart rhythm. [A two week Zio patch showed sinus rhythm at varying rates last year]. An Echocardiogram will be requested to assess for structural abnormalities [another is pending]. If other evaluations are unrevealing, then can consider Autonomic Function testing. Discussed the possible benefit of ivabradine for heart rate slowing and she agrees; will start at 2.5 mg BID. ------ Metanephrines were drawn 08/31/24 and are pending. 08/31/24 - TSH 1.51; T4 1.3; 92 Echocardiogram is pending. Holter is pending. ====== Of note, regarding tachycardia, Ms. Braxton is prescribed amitriptyline 25 mg qhs. ====== Problem List includes asthma, anxiety, and globus. ====== With that preamble, Amie reports that she has seen Dr. Pyle and Dr. Schafer regarding her rapid heart rate and there is concern that her problem might be neurologic rather than cardiologic. She has been diagnosed withPOTS first diagnosed in February,. She reports as well burning pains in her left parietal area, left occiput, and left anterior axillary fold. Amie tells me these burning pains began in January,. They are intermittent, and can occur asynchronously of each other. They occur when she is sedentary. She has, however, had other areason her left side affected - never her right side, though. She has been taking 12.5 mg of amitriptyline qhs as a replacement for trazodone. She has undergone cardiologic and rheumatologic testing; MRIbrain which was performed on 04/28/24 proved normal. She has been having lightheadedness [like when you get up too fast - but she has started having it laying down as well] and vertigo-like spells [like the swirls on the carpet being disturbing when she walks PAST MEDICAL HISTORY Diagnosis Date Asthma Generalized anxiety disorder Migraines PCOS (polycystic ovarian syndrome) POTS (postural orthostatic tachycardia syndrome) Tilt x2 ([facility], [facility]) Seasonal allergies Syncope PAST SURGICAL HISTORY Procedure Laterality Date TONSILLECTOMY & ADENOIDECTOMY <AGE 14 Social History Tobacco Use Smoking status: Never Smokeless tobacco: Never Vaping Use Vaping status: Never Used Substance Use Topics Alcohol use: Never Drug use: Never FAMILY HISTORY Problem Relation Age of Onset other (palpitations) Mother stress No Known Problems Father No Known Problems Sister Skin Cancer Maternal Grandmother Diabetes Paternal Grandmother Current Outpatient Medications on File Prior to Visit Medication Sig fludrocortisone (FLORINEF) 0.1 mg tablet Take 0.05 mg by mouth once daily. (Patient not taking: Reported on 08/30/2024) ivabradine (CORLANOR) 5 mg tablet Take 2.5 mg by mouth two times a day. amitriptyline (ELAVIL) 25 mg tablet Take 1 tablet by mouth daily at bedtime. nitroglycerin sublingual (NITROQUICK) 0.3 mg SL tablet Dissolve 1 tablet under the tongue one time only for 1 dose. To be administered in Radiology for CTA exam bisoprolol (ZEBETA) 5 mg tablet Take 1 tablet by mouth once daily. (Patient taking differently: Take 5 mg by mouth as needed (PRN for HRs > 135/140 bpm).) budesonide-formoterol (SYMBICORT) 160-4.5 mcg/actuation inhaler Inhale 2 Puffs as instructed two times a day. EPINEPHrine (EPIPEN) 0.3 mg/0.3 mL auto-injector Inject 0.3 mg intramuscularly as needed. Current Facility-Administered Medications on File Prior to Visit Medication cyanocobalamin 1,000 mcg injection PHYSICAL EXAM General: Alert, conversant, appropriate, young, FEMALE, in no apparent distress. She arrives by wheelchair today - but she only uses one on particularly symptomatic days, for longer distances is monitoring her heart rate continuously with a finger-mounted monitor. Her feet are cool, sweaty and dusky despite just having taken her shoes off. Unlike erythromelalgia, they are not burning. She has only taken bisoprolol once - it is not in her system now. She tells me her hands - less often - look jeffrey feet do today. Vital Signs: BP 137/84 (BP Site: Left Arm, BP Position: Supine) Pulse (!) 144 Ht 152.4 cm (5') Wt 105 kg (231 lb 7.7 oz) LMP 08/24/2024 (Approximate) BMI 45.21 kg/m - reviewed. Neurologic: Cranial Nerves: Pin was diminished in her right cheek. No nystagmus is unmasked by the abolition of visual fixation afforded by fundoscopic. Pursuit eye movements normal, without any pathologic nystagmus. Horizontal saccadic eye movements were normal. Head impulse test normal with right and left head turning. Olfaction is normal to orange extract. Monocular visual weeks intact to finger counting. Funduscopic reveals flat discs. Pupils equal, round and reactive to light. Pursuit eye movements normal. Facies symmetric. Hearing normal to 1024 Hz tuning fork. Palatal movement, phonation, and resonation normal. Trapezius and SCM 5/5 and symmetric. Tongue movement symmetric. Sensory: Normal on testing pin, vibration, and joint position sense. Motor: Strength was 5/5 and symmetric on testing finger abduction, finger extension, elbow flexion, elbow extension, shoulder abduction, toe dorsiflexion, ankle dorsiflexion, ankle plantar flexion, knee flexion, knee extension, and hip flexion. Tone was normal. Posture was normal. There was no atrophy. There were no fasciculations. There wereno involuntary movements. Coordination: Cdwkht-howt-[id number] was normal. Finger and toe wiggling rapid alternating movements were normal. Standing in Romberg's position with eyes open and closed was normal. Gait: Normal. Deep Tendon Reflexes: Plantars were flexor bilaterally. Biceps 2 and symmetric. Triceps 2 and symmetric. Patellar 3- and symmetric (mild spread to hip flexors bilaterally). Achilles 2+ and symmetric (elicitable by dorsiflexion). IMPRESSION AND PLAN: I do not find any neurologic correlate for Ms. Braxton's presenting symptoms on neurologic exam. As regards tachycardia, though, little on neurologic examination reflects autonomic function. Her pupils are mydriatic, but that is not unusual in one's 20's. Her feet were moist, dusky, and cool to the touch - despite having had shoes on until a moment before - making me wonder whether she has Raynaud's phenomenon. (It was not present in her hands). Lightheadedness is usually a correlate of hypotension, though one can see it with hypoxemia or marked hypoglycemia - though I have no reason to suspect the latter two situations. It is unusual, too, for hypotension to persist despite being supine. One could see supine lightheadedness with hyperventilation (as it is caused by physiologic vasoconstriction). Because I do not have the expertise to investigate the autonomic nervous system, I am going to refer Amie to Neuromuscular/autonomic neurology for consideration of work up. I do not have a ready explanation for her exclusively left sided, patchy burning pains. They do notresemble any entity I know. Sometimes one treats enigmatic complaints empirically (eg, amitriptyline for pains which may be neurogenic) - but considering her tachycardia, I do not want to do that here. I have contacted Samra Rose of GI regarding the amitriptyline in place for her esophageal spasm - 12.5 mg qhs. I asked whether, considering her tachycardia, there might be a different agent for the esophageal spasm which would not be anticholinergic. It seems there may be; Amie should schedule with her as soon after the 3 week point of amitriptyline treatment as possible to that end. I am still persuaded that the other sort of dizziness that Amie gets - not the lightheadedness, but the 'room moving' she feels with certain visual stimuli (the swirly carpet) reflects PPPV. I will be glad to see Amie back as the need arises. Sincerely, Daniel Mauro MD Staff, General Neurology I spent 62 minutes in this visit face to face with the patient, with more than 50% of the time devoted to patient counseling with regard to the impression, patient education, interpretation of the studies, the diagnosis, treatment options, theneed for further diagnostic testing, and coordination ofcare. documented in [facility] NoteHNO ID: [id number] Author: ARUNA IRVIN MA Service: ? Author Type: [employer] Type: Progress Notes Filed: 09/03/2024 16:04 Note Text:[facility]02-24-2025 History of Present illness Narrative* Aruna Irvin MA - 09/03/2024 2:49 PM EST documented in this encounterK[facility] History and physical note * Daniel Mauro MD - 09/01/2024 9:51 PM EST Chart Review Parenthetic [comments] and tinted emphasis mine. When last seen, 04/03/24, my impression was: I will check Amie's topiramate level, and assuming it is not too high, will increase her topiramate dose. Again, I suspect her imbalance may be due to migraine, and if it is, then it may (eventually) yield to topiramate. On the other hand, seeing the carpet which made her dizzy, I am at least as persuaded that this is PPPV. I will refer her Dr. Joann Braxton. ------ I do not find a topiramate level in Epic. ------ Dr. Braxton's notes reviewed. ====== 08/31/24, Ms. Braxton let me know of her recent symptoms via [employer]: ... I wanted to give some updates before our appointment because a lot of things have changed. I recalled that I had taken Topiromate in 2022 and had those charts faxed over to your office from the previous neurologist I had seen when I was on different insurance. I forgot that I had been on it before when we last spoke. I've been charting my symptoms since and the dizziness and headaches/migraines don't seem to be correlated with each other. I've also developed new symptoms the last time we saw each other. Those include: - nerve pain ( burning on my left arms in random spots, in the back of my head or whole head/left side, burning on left leg). Sometimes it feels like I rubbed icy hot all over my left arm/shoulder area. I'll also have random stinging that will occur. Also severe chest burning. - facial vibrations: I've woken up several times to it feeling like my face is vibrating. - heart issues not connected to POTS (you can see my most recent ER visits and my visit to Dr. Schafer) I've had a lot of heart testing done by my skin pass operator Dr. 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 - saw Rheumatology: they told me to seek out nerve testing since a lot of my symptoms sound like nerve damage of some kind. They ordered lots of blood work and x-rays, and suggested I follow up with you since I tested negative for autoimmune [?]. ====== Amie described her symptoms to her skin pass operator, Dr. Pyle, on 08/23/24 via [employer]: ...what happened this past Tuesday...I went in to the ER because of chest pain and I felt like my heart was beating extremely abnormally. The pain started while I was just laying down in my car, waiting for my Vestibular appointment, so I wasn't doing anything strenuous. My HR went from 80 to 125, while laying down. A quick version of how it went: -chest pains started -went to ER, threw up on arrival -they brought me back to room, 1 EKG super abnormal (they actually were going to do 2 but didn't have time to perform second EKG) - Head started burning and stinging out of nowhere - Started to go in and out of consciousness (this has NEVER happened before) It felt like my body was shutting down. - heart rate spiked significantly - nurse called for ER doctor as they thought I was in SVT (HR up to 175) - brought in the defibrillator, but performed Valsalva maneuver twice to bring my heart rate down - after both attempts, I was coughing heavily in between - HR came down from 175 to 130s after the two rounds of the Valsalva maneuver, but maintained this level for about an hour before coming down As you can imagine, I am in a lot of shock because this was triggered while I was doing nothing. Since then I have been fearing for my life, I don't believe this could be connected to the POTS but I'm unsure. The ER team was made aware that I had POTS as well. ====== She was seen by skin pass operator Dr. Yuan Schafer on 08/30/24. His impression was: #. Sinus tachycardia. 08/30/2024: The differential diagnosis for sinus tachycardia includes secondary sinus tachycardia vs Inappropriate Sinus Tachycardia (IST) vs Postural Tachycardia Syndrome (POTS). Her heart rates while supine today are 140 bpm on ECG (sinus tachycardia), 126 bpm on orthostatic vitals, raising the concern for secondary sinus tachycardia vs Inappropriate Sinus Tachycardia (IST). Of note, these supine heart rates are significantly faster than the supine heart rates on the OSH Tilt Table Test in 2022 (81 bpm) and 2023 (79 bpm). Recommend that the patient's physicians continue to assess for and treat any underlying primary conditions that may result in a secondary sinus tachycardia. Her d-dimer levels were low recently on both 08/20/2024 and 08/24/2024. Hb level 08/24/2024 was normal at 15.4. Check labs today: plasma metanephrines and TSH/T3/T4. Given her allergies and asthma, advised she discuss with her Slag Motor Operator regarding possible Mast CellActivation Syndrome (MCAS), Given her PCOS, advised she discuss with her Enterprise Data Architect regarding underlying hormonal concerns. Recommend follow up with PCP to assess for possible underlying infectious concerns. A 24hr Holter monitor will be requested to assess average heart rate, as well as heart rhythm. An Echocardiogram will be requested to assess for structural abnormalities. If other evaluations are unrevealing, then can consider Autonomic Function testing. Discussed the possible benefit of ivabradine for heart rate slowing and she agrees; will start at 2.5 mg BID. ------ Metanephrines were drawn 08/31/24 and are pending. 08/31/24 - TSH 1.51; T4 1.3; 92 Echocardiogram is pending. Holter is pending. ====== Of note, regarding tachycardia, Ms. Braxton is prescribed amitriptyline 25 mg qhs. ====== Problem List includes asthma, anxiety, and globus. ====== Daniel Mauro MD [facility] Work Phone: [phone] 293-669102-22-2025 History and physical note* Daniel Mauro MD - 09/01/2024 9:51 PM EST Chart Review Parenthetic [comments] and tinted emphasis mine. When last seen, 04/03/24, my impression was: I will check Amie's topiramate level, and assuming it is not too high, will increase her topiramate dose. Again, I suspect her imbalance may be due to migraine, and if it is, then it may (eventually) yield to topiramate. On the other hand, seeing the carpet which made her dizzy, I am at least as persuaded that this is PPPV. I will refer her Dr. Joann Braxton. ------ I do not find a topiramate level in Epic. ------ Dr. Braxton's notes reviewed. ====== 08/31/24, Ms. Braxton let me know of her recent symptoms via [employer]: ... I wanted to give some updates before our appointment because a lot of things have changed. I recalled that I had taken Topiromate in 2022 and had those charts faxed over to your office from the previous neurologist I had seen when I was on different insurance. I forgot that I had been on it before when we last spoke. I've been charting my symptoms since and the dizziness and headaches/migraines don't seem to be correlated with each other. I've also developed new symptoms the last time we saw each other. Those include: - nerve pain ( burning on my left arms in random spots, in the back of my head or whole head/left side, burning on left leg). Sometimes it feels like I rubbed icy hot all over my left arm/shoulder area. I'll also have random stinging that will occur. Also severe chest burning. - facial vibrations: I've woken up several times to it feeling like my face is vibrating. - heart issues not connected to POTS (you can see my most recent ER visits and my visit to Dr. Schafer) I've had a lot of heart testing done by my skin pass operator Dr. 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 - saw Rheumatology: they told me to seek out nerve testing since a lot of my symptoms sound like nerve damage of some kind. They ordered lots of blood work and x-rays, and suggested I follow up with you since I tested negative for autoimmune [?]. ====== Amie described her symptoms to her skin pass operator, Dr. Pyle, on 08/23/24 via [employer]: ...what happened this past Tuesday...I went in to the ER because of chest pain and I felt like my heart was beating extremely abnormally. The pain started while I was just laying down in my car, waiting for my Vestibular appointment, so I wasn't doing anything strenuous. My HR went from 80 to 125, while laying down. A quick version of how it went: -chest pains started -went to ER, threw up on arrival -they brought me back to room, 1 EKG super abnormal (they actually were going to do 2 but didn't have time to perform second EKG) - Head started burning and stinging out of nowhere - Started to go in and out of consciousness (this has NEVER happened before) It felt like my body was shutting down. - heart rate spiked significantly - nurse called for ER doctor as they thought I was in SVT (HR up to 175) - brought in the defibrillator, but performed Valsalva maneuver twice to bring my heart rate down - after both attempts, I was coughing heavily in between - HR came down from 175 to 130s after the two rounds of the Valsalva maneuver, but maintained this level for about an hour before coming down As you can imagine, I am in a lot of shock because this was triggered while I was doing nothing. Since then I have been fearing for my life, I don't believe this could be connected to the POTS but I'm unsure. The ER team was made aware that I had POTS as well. ====== She was seen by skin pass operator Dr. Yuan Schafer on 08/30/24. His impression was: #. Sinus tachycardia. 08/30/2024: The differential diagnosis for sinus tachycardia includes secondary sinus tachycardia vs Inappropriate Sinus Tachycardia (IST) vs Postural Tachycardia Syndrome (POTS). Her heart rates while supine today are 140 bpm on ECG (sinus tachycardia), 126 bpm on orthostatic vitals, raising the concern for secondary sinus tachycardia vs Inappropriate Sinus Tachycardia (IST). Of note, these supine heart rates are significantly faster than the supine heart rates on the [facility] Tilt Table Test in 2022 (81 bpm) and 2023 (79 bpm). Recommend that the patient's physicians continue to assess for and treat any underlying primary conditions that may result in a secondary sinus tachycardia. Her d-dimer levels were low recently on both 08/20/2024 and 08/24/2024. Hb level 08/24/2024 was normal at 15.4. Check labs today: plasma metanephrines and TSH/T3/T4. Given her allergies and asthma, advised she discuss with her Slag Motor Operator regarding possible Mast CellActivation Syndrome (MCAS), Given her PCOS, advised she discuss with her Enterprise Data Architect regarding underlying hormonal concerns. Recommend follow up with PCP to assess for possible underlying infectious concerns. A 24hr Holter monitor will be requested to assess average heart rate, as well as heart rhythm. An Echocardiogram will be requested to assess for structural abnormalities. If other evaluations are unrevealing, then can consider Autonomic Function testing. Discussed the possible benefit of ivabradine for heart rate slowing and she agrees; will start at 2.5 mg BID. ------ Metanephrines were drawn 08/31/24 and are pending. 08/31/24 - TSH 1.51; T4 1.3; 92 Echocardiogram is pending. Holter is pending. ====== Of note, regarding tachycardia, Ms. Braxton is prescribed amitriptyline 25 mg qhs. ====== Problem List includes asthma, anxiety, and globus. ====== Daniel Mauro MD [facility] History and physical note * Daniel Mauro MD - 09/01/2024 9:49 PM EST Chart Review Parenthetic [comments] and tinted emphasis mine. When last seen, 04/03/24, my impression was: I will check Amie's topiramate level, and assuming it is not too high, will increase her topiramate dose. Again, I suspect her imbalance may be due to migraine, and if it is, then it may (eventually) yield to topiramate. On the other hand, seeing the carpet which made her dizzy, I am at least as persuaded that this is PPPV. I will refer her Dr. Joann Braxton. ------ I do not find a topiramate level in Epic. ------ Dr. Braxton's notes reviewed. ====== 08/31/24, Ms. Braxton let me know of her recent symptoms via [employer]: ... I wanted to give some updates before our appointment because a lot of things have changed. I recalled that I had taken Topiromate in 2022 and had those charts faxed over to your office from the previous neurologist I had seen when I was on different insurance. I forgot that I had been on it before when we last spoke. I've been charting my symptoms since and the dizziness and headaches/migraines don't seem to be correlated with each other. I've also developed new symptoms the last time we saw each other. Those include: - nerve pain ( burning on my left arms in random spots, in the back of my head or whole head/left side, burning on left leg). Sometimes it feels like I rubbed icy hot all over my left arm/shoulder area. I'll also have random stinging that will occur. Also severe chest burning. - facial vibrations: I've woken up several times to it feeling like my face is vibrating. - heart issues not connected to POTS (you can see my most recent ER visits and my visit to Dr. Schafer) I've had a lot of heart testing done by my skin pass operator Dr. 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 - saw Rheumatology: they told me to seek out nerve testing since a lot of my symptoms sound like nerve damage of some kind. They ordered lots of blood work and x-rays, and suggested I follow up with you since I tested negative for autoimmune [?]. ====== Amie described her symptoms to her skin pass operator, Dr. Pyle, on 08/23/24 via [employer]: ...what happened this past Tuesday...I went in to the ER because of chest pain and I felt like my heart was beating extremely abnormally. The pain started while I was just laying down in my car, waiting for my Vestibular appointment, so I wasn't doing anything strenuous. My HR went from 80 to 125, while laying down. A quick version of how it went: -chest pains started -went to ER, threw up on arrival -they brought me back to room, 1 EKG super abnormal (they actually were going to do 2 but didn't have time to perform second EKG) - Head started burning and stinging out of nowhere - Started to go in and out of consciousness (this has NEVER happened before) It felt like my body was shutting down. - heart rate spiked significantly - nurse called for ER doctor as they thought I was in SVT (HR up to 175) - brought in the defibrillator, but performed Valsalva maneuver twice to bring my heart rate down - after both attempts, I was coughing heavily in between - HR came down from 175 to 130s after the two rounds of the Valsalva maneuver, but maintained this level for about an hour before coming down As you can imagine, I am in a lot of shock because this was triggered while I was doing nothing. Since then I have been fearing for my life, I don't believe this could be connected to the POTS but I'm unsure. The ER team was made aware that I had POTS as well. ====== She was seen by skin pass operator Dr. Yuan Schafer on 08/30/24. His impression was: #. Sinus tachycardia. 08/30/2024: The differential diagnosis for sinus tachycardia includes secondary sinus tachycardia vs Inappropriate Sinus Tachycardia (IST) vs Postural Tachycardia Syndrome (POTS). Her heart rates while supine today are 140 bpm on ECG (sinus tachycardia), 126 bpm on orthostatic vitals, raising the concern for secondary sinus tachycardia vs Inappropriate Sinus Tachycardia (IST). Of note, these supine heart rates are significantly faster than the supine heart rates on the OS Tilt Table Test in 2022 (81 bpm) and 2023 (79 bpm). Recommend that the patient's physicians continue to assess for and treat any underlying primary conditions that may result in a secondary sinus tachycardia. Her d-dimer levels were low recently on both 08/20/2024 and 08/24/2024. Hb level 08/24/2024 was normal at 15.4. Check labs today: plasma metanephrines and TSH/T3/T4. Given her allergies and asthma, advised she discuss with her Slag Motor Operator regarding possible Mast CellActivation Syndrome (MCAS), Given her PCOS, advised she discuss with her Enterprise Data Architect regarding underlying hormonal concerns. Recommend follow up with PCP to assess for possible underlying infectious concerns. A 24hr Holter monitor will be requested to assess average heart rate, as well as heart rhythm. An Echocardiogram will be requested to assess for structural abnormalities. If other evaluations are unrevealing, then can consider Autonomic Function testing. Discussed the possible benefit of ivabradine for heart rate slowing and she agrees; will start at 2.5 mg BID. ------ Metanephrines were drawn 08/31/24 and are pending. 08/31/24 - TSH 1.51; T4 1.3; 92 Echocardiogram is pending. Holter is pending. ====== Of note, regarding tachycardia, Ms. Braxton is prescribed amitriptyline 25 mg qhs. ====== Daniel Mauro MD [facility] Work Phone: [phone] 909-222502-22-2025 History and physical note* Daniel Mauro MD - 09/01/2024 9:49 PM EST Chart Review Parenthetic [comments] and tinted emphasis mine. When last seen, 04/03/24, my impression was: I will check Amie's topiramate level, and assuming it is not too high, will increase her topiramate dose. Again, I suspect her imbalance may be due to migraine, and if it is, then it may (eventually) yield to topiramate. On the other hand, seeing the carpet which made her dizzy, I am at least as persuaded that this is PPPV. I will refer her Dr. Joann Braxton. ------ I do not find a topiramate level in Epic. ------ Dr. Braxton's notes reviewed. ====== 08/31/24, Ms. Braxton let me know of her recent symptoms via [employer]: ... I wanted to give some updates before our appointment because a lot of things have changed. I recalled that I had taken Topiromate in 2022 and had those charts faxed over to your office from the previous neurologist I had seen when I was on different insurance. I forgot that I had been on it before when we last spoke. I've been charting my symptoms since and the dizziness and headaches/migraines don't seem to be correlated with each other. I've also developed new symptoms the last time we saw each other. Those include: - nerve pain ( burning on my left arms in random spots, in the back of my head or whole head/left side, burning on left leg). Sometimes it feels like I rubbed icy hot all over my left arm/shoulder area. I'll also have random stinging that will occur. Also severe chest burning. - facial vibrations: I've woken up several times to it feeling like my face is vibrating. - heart issues not connected to POTS (you can see my most recent ER visits and my visit to Dr. Schafer) I've had a lot of heart testing done by my skin pass operator Dr. 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 - saw Rheumatology: they told me to seek out nerve testing since a lot of my symptoms sound like nerve damage of some kind. They ordered lots of blood work and x-rays, and suggested I follow up with you since I tested negative for autoimmune [?]. ====== Amie described her symptoms to her skin pass operator, Dr. Pyle, on 08/23/24 via [employer]: ...what happened this past Tuesday...I went in to the ER because of chest pain and I felt like my heart was beating extremely abnormally. The pain started while I was just laying down in my car, waiting for my Vestibular appointment, so I wasn't doing anything strenuous. My HR went from 80 to 125, while laying down. A quick version of how it went: -chest pains started -went to ER, threw up on arrival -they brought me back to room, 1 EKG super abnormal (they actually were going to do 2 but didn't have time to perform second EKG) - Head started burning and stinging out of nowhere - Started to go in and out of consciousness (this has NEVER happened before) It felt like my body was shutting down. - heart rate spiked significantly - nurse called for ER doctor as they thought I was in SVT (HR up to 175) - brought in the defibrillator, but performed Valsalva maneuver twice to bring my heart rate down - after both attempts, I was coughing heavily in between - HR came down from 175 to 130s after the two rounds of the Valsalva maneuver, but maintained this level for about an hour before coming down As you can imagine, I am in a lot of shock because this was triggered while I was doing nothing. Since then I have been fearing for my life, I don't believe this could be connected to the POTS but I'm unsure. The ER team was made aware that I had POTS as well. ====== She was seen by skin pass operator Dr. Yuan Schafer on 08/30/24. His impression was: #. Sinus tachycardia. 08/30/2024: The differential diagnosis for sinus tachycardia includes secondary sinus tachycardia vs Inappropriate Sinus Tachycardia (IST) vs Postural Tachycardia Syndrome (POTS). Her heart rates while supine today are 140 bpm on ECG (sinus tachycardia), 126 bpm on orthostatic vitals, raising the concern for secondary sinus tachycardia vs Inappropriate Sinus Tachycardia (IST). Of note, these supine heart rates are significantly faster than the supine heart rates on the OSH Tilt Table Test in 2022 (81 bpm) and 2023 (79 bpm). Recommend that the patient's physicians continue to assess for and treat any underlying primary conditions that may result in a secondary sinus tachycardia. Her d-dimer levels were low recently on both 08/20/2024 and 08/24/2024. Hb level 08/24/2024 was normal at 15.4. Check labs today: plasma metanephrines and TSH/T3/T4. Given her allergies and asthma, advised she discuss with her Slag Motor Operator regarding possible Mast CellActivation Syndrome (MCAS), Given her PCOS, advised she discuss with her Enterprise Data Architect regarding underlying hormonal concerns. Recommend follow up with PCP to assess for possible underlying infectious concerns. A 24hr Holter monitor will be requested to assess average heart rate, as well as heart rhythm. An Echocardiogram will be requested to assess for structural abnormalities. If other evaluations are unrevealing, then can consider Autonomic Function testing. Discussed the possible benefit of ivabradine for heart rate slowing and she agrees; will start at 2.5 mg BID. ------ Metanephrines were drawn 08/31/24 and are pending. 08/31/24 - TSH 1.51; T4 1.3; 92 Echocardiogram is pending. Holter is pending. ====== Of note, regarding tachycardia, Ms. Braxton is prescribed amitriptyline 25 mg qhs. ====== Daniel Mauro MD [facility] History of Present illness Narrative* Camryn Davila Tech - 08/30/2024 10:16 AM EST HOLTER MONITOR APPLICATION Patient Name: Amie Braxton [facility] Number: [id number] Chest is cleansed with alcohol Skin prep applied Electrodes place on chest and stress loops secured with tape Fresh battery inserted in monitor Holter monitor secured to patient with waist or shoulder straps Patient instructed 1.) Diary documentation 2.) Usage of event button 3.) Maintenance and care of monitor 4.) Safety issues with monitor 5.) Return unit in 24 hours or 48 hours 6.) Call with problems [phone] OR [phone] Patient expresses good verbal understanding of instructions Julio Cesar Khan documented in this [facility] History of Present illness Narrative* Yuan Schafer MD - 08/30/2024 8:38 AM EST Images from the original note were not included. I personally reviewed the above information as obtained by the nurse and confirmed the findings. Chief Complaint: Tachycardia Additional HPI: 29 year old female with a past medical history of: PAST MEDICAL HISTORY Diagnosis Date Asthma Generalized anxiety disorder Migraines PCOS (polycystic ovarian syndrome) POTS (postural orthostatic tachycardia syndrome) Tilt x2 ([facility], [facility]) Seasonal allergies Syncope PAST SURGICAL HISTORY Procedure Laterality Date TONSILLECTOMY & ADENOIDECTOMY <AGE 14 Initial History as taken on 08/30/2024: symptoms started end of 2019 after had COVID: head stuff with migraine headaches heart related stuff started around 2022 with tachypalpitations tachypalpitations worsened since February 2024 she denies taking fludrocortisone (florinef) since Tuesday she has been having worsened symptoms last dose of bisoprolol was Tuesday last week doesn't take regularly due to low blood pressure concerns feels worse after eating she is here with her boyfriend today Symptoms worsened with menstruation? has PCOS, so doesn't have frequent periods, currently spotting Currently ?: n. occupation: n Per Nursing Intake obtained 08/30/2024: Ms. Braxton is a 29 year old female who is seen today to establish care with a POTS specialist and to have her palpitations and possible SVT evaluated. She has a past medical history of asthma, migraines, distal esophageal spasms (CHUCK), PCOS, TLOC/near syncope, POTS, ?SVT, and palpitations. She has previously failed meclizine. Fludrocortisone has been ordered but not tried as of yet. She takes bisoprolol as needed but has not noticed any effect. In November 2022, she began having episodes of dizziness, lightheadedness, and brain fog. She then also began having migraines associated with visual snow. She had one near syncopal episode while driving in 2022. Her symptoms worsened significantly this past February. She reports several near syncopal episodes per day with HRs in the 150s/160s. Onset of symptoms is typically with HRs in the 120s. She endorses dizziness, lightheadedness, occasional visual changes, and nausea, with occasional L ear muffled hearing. She denies overt LOC. Episodes occur with positional changes and also while laying down. She also endorses brief palpitations unassociated with the near syncope that last about 2 beats followed by a burning sensation that begins in her chest, spreads throughout her whole body with L side > R side. She also gets short of breath with exertion andalso at rest, and occasional BLE edema with prolonged standing. Episodes occur while seated or standing. Symptoms improve with closing eyes or laying down. Neuro work-up (brain MRI, EEG) was unremarkable. Results of a Tilt performed on 04/26/24 were consistent with POTS. She wore a 14-day Holter (04/04 - 04/18/24) which revealed predominant sinus rhythm with an avg HR of80 bpm (min HR 52 bpm, max HR 164 bpm), 12.8% tachycardia burden, and 2.8% bradycardia burden, withrare PVC burden (<1.0%) of 3 disparate morphologies. There were 25 patient triggered events thatdid not correlate to any arrhythmias. She had a normal exercise stress test in February [address] changes of no clinical significance. She reported chest tightness, dizziness, dyspnea, and fatigue, during the stress test. She achieved 8.7 METS with max HR of 166 bpm (86% MPHR, 194 bpm). She denies any recent chest pain, orthopnea, cough, PND, or syncope. FLUIDS/SPORTS>CAFFEINE>ALCOHOL>SALT>COMPRESSION>EXERCISE She drinks 120 ounces of water per day and adds electrolytes to all her water (8,000 mg Na daily). She also drinks gatorade light. She doesn't drink any alcohol or caffeine. She salts her food. She did try thigh-high compression stockings but didn't notice any improvement. She reports significant exercise intolerance but she does go to PT once a week. Prior testing (including outside reports) has included: OS vertica architect 04/04 - 04/18/24: TILT TABLE TEST 04/26/24: * FINAL IMPRESSIONS * - The test was completed per protocol at 30 minutes of 70 degree tilt. - Systolic blood pressures remained stable from 113 mmHg at start to 120 mmHg at end of tilt. - Diastolic blood pressures remained stable from 73 mmHg at start to 90 mmHg at end of tilt. - Blood pressure upon return to supine position was 125/62 mmHg. - Heart rates increased from 79 bpm at start to 119 bpm at end of tilt. - Heart rate upon return to supine position was 81 bpm. - ECGs showed: NO asystole was seen. - Patient signs/symptoms included: lightheadedness/dizziness, nausea, shortness of breath, chest pain. - Syncope/impending syncope was NOT induced. - Overall: The test is diagnostic for accentuated postural tachycardia with early rise in heart rate. The test is negative for syncope. OS EXERCISE STRESS TEST 03/06/24: NARRATIVE Stress ECG: Conclusion: The stress test had minor ST changes of no clinical significance. The stress test is normal. Stress Test: A Jonny protocol stress test was performed. Overall, the patient's exercise capacity was average for their age. The patient exercised for 7 min and 10 sec. Hemodynamics are adequate for diagnosis. Blood pressure demonstrated a blunted response and heart rate demonstrated a normal response to stress. The patient's heart rate recovery was normal. The patient reported chest pain, dizziness, dyspnea and fatigue during the stress test. Chest pain was characterized as tightness. Resting ECG: The ECG shows normal sinus rhythm. Resting ECG shows non-specific T waves. Resting ECG The ECG shows normal sinus rhythm. Resting ECG shows non-specific T waves. Stress Findings A Jonny protocol stress test was performed. Overall, the patient's exercise capacity was average for their age. The patient exercised for 7 min and 10 sec. Cherelle rating of perceived exertion was 17. Hemodynamics are adequate for diagnosis. Blood pressure demonstrated a blunted response and heart rate demonstrated a normal response to stress. The patient's heart rate recovery was normal. The patient reported chest pain prior to the stress test. Chest pain was characterized as tightness prior to the stress test. The patient reported chest pain, dizziness, dyspnea and fatigue during the stress test. Chest pain was characterized as tightness. Symptoms began prior to stress and persisted during recovery. The test was stopped because the patient experienced dizziness and dyspnea. Stress ECG There were no arrhythmias during stress. Non-significant (<1mm) upsloping ST depression was noted. There were no noted arrhythmias during recovery. There were no ST changes during recovery. Conclusion: The stress test had minor ST changes of no clinical significance. The stress test is normal. OSH ECHO/TTE 02/29/24: NARRATIVE Left Ventricle: Left ventricle size is normal. Normal wall thickness. Normal left ventricular systolic function. EF by 2D Simpsons Biplane is 57%. Normal wall motion. Normal diastolic function. Right Ventricle: Right ventricle size is normal. Normal systolic function. No significant valvular abnormalities. OSH TILT STUDY PER TILT 12-LEAD PROTOCOL 05/05/23: * FINAL IMPRESSIONS * - The test was completed per protocol at 30 minutes of 70 degree tilt. - Systolic blood pressures remained stable from 115 mmHg at start to 109 mmHg at end of tilt. - Diastolic blood pressures remained stable from 74 mmHg at start to 70 mmHg at end of tilt. - Blood pressure upon return to supine position was 108/71 mmHg. - Heart rates increased from 81 bpm at start to 103 bpm at end of tilt, with a peak heart rate of 111 bpm during tilt. - Heart rate upon return to supine position was 88 bpm. - ECGs showed: NO asystole was seen. - Patient signs/symptoms included: dizziness. - Overall: The test is diagnostic for accentuated postural tachycardia. The test is negative for syncope. FINDINGS: The baseline ECG showed sinus rhythm rate of [address] segment changes, otherwise unremarkable. The patient underwent standard 90-degree head up tilt table study, as described above. 1. The test is negative for orthostatic hypotension. 2. The test is negative for vasomotor/neurocardiogenic syncope. 3. The test is negative for cardiac dysrhythmias. 4. Nitroglycerin challenge was not performed. 5. Carotid massage was not performed. IMPRESSION: Negative study. My note: there were 2 interpretations for the same Tilt Table Test 05/05/[address] [facility] coronary CTA 06/2024 IMPRESSION: - NO EVIDENCE OF ATHEROSCLEROTIC CHANGES OR LUMINAL STENOSIS OF THE CORONARY ARTERIES - CAD-RADS 0: No plaque or luminal stenosis. Absence of CAD. - Overall Plaque [place]: No evidence of plaque - LV EF = 73 %; LV EDV 76 ml. Family history: FAMILY HISTORY Problem Relation Age of Onset other (palpitations) Mother stress No Known Problems Father No Known Problems Sister Skin Cancer Maternal Grandmother Diabetes Paternal Grandmother Ht 152.4 cm (5') Wt 47.6 kg (105 lb) LMP 08/24/2024 (Approximate) BMI 20.51 kg/m BP w/Orthostatic Vitals Date and Time Orthostatic BP Orthostatic Pulse BP Pulse BP Position BP Site BP Cuff Size 08/30/24 0832 135/97 139 -- -- Standing Left Arm -- 08/30/24 0831 134/97 133 -- -- Sitting Left Arm -- 08/30/24 0828 137/90 126 -- -- Supine Left Arm Small Adult General/Constitutional: no acute distress, well appearing Psych: alert and oriented Skin: intact Eyes: EOMI ENT: adequate neck movement Cardiovascular: regular, normal S1 and S2 without S3 or S4, no significant murmurs, no significant lower extremity edema, no carotid bruit Resp: lungs generally clear to auscultation bilaterally, lungs with equal air entry bilaterally Neuro: no obvious focal motor deficits Musculoskeletal: normal musculature Lab Results Component Value Date/Time HB 15.4 08/24/2024 02:11 PM HB 16.2 (H) 07/09/2024 03:52 PM K 3.8 08/24/2024 02:11 PM K 3.6 (L) 08/20/2024 01:54 PM CREAT 0.70 08/24/2024 02:11 PM CREAT 0.84 08/20/2024 01:54 PM CREAT 0.74 07/26/2024 12:46 PM TSH 2.030 08/24/2024 02:11 PM TSH 3.100 07/09/2024 03:52 PM Latest Ref Rng 08/24/2024 ALYSON High Sensitivity <12 ng/L 11 ALYSON High Sensitivity 16 (H) ALYSON High Sensitivity <6 d Dimer <500 ng/mL FEU <190 Latest Ref Rng 08/20/2024 d Dimer <500 ng/mL FEU <190 ECG 08/30/2024 : sinus tachycardia 140 bpm, [place] 126, qrs 82, qt 300/458, inferior ST depressions Assessment and Recommendations #. Sinus tachycardia. 08/30/2024: The differential diagnosis for sinus tachycardia includes secondary sinus tachycardia vs Inappropriate Sinus Tachycardia (IST) vs Postural Tachycardia Syndrome (POTS). Her heart rates while supine today are 140 bpm on ECG (sinus tachycardia), 126 bpm on orthostatic vitals, raising the concern for secondary sinus tachycardia vs Inappropriate Sinus Tachycardia (IST). Of note, these supine heart rates are significantly faster than the supine heart rates on the OS Tilt Table Test in 2022 (81 bpm) and 2023 (79 bpm). Recommend that the patient's physicians continue to assess for and treat any underlying primary conditions that may result in a secondary sinus tachycardia. Her d-dimer levels were low recently on both 08/20/2024 and 08/24/2024. Hb level 08/24/2024 was normal at 15.4. Check labs today: plasma metanephrines and TSH/T3/T4. Given her allergies and asthma, advised she discuss with her Slag Motor Operator regarding possible Mast CellActivation Syndrome (MCAS), Given her PCOS, advised she discuss with her Enterprise Data Architect regarding underlying hormonal concerns. Recommend follow up with PCP to assess for possible underlying infectious concerns. A 24hr Holter monitor will be requested to assess average heart rate, as well as heart rhythm. An Echocardiogram will be requested to assess for structural abnormalities. If other evaluations are unrevealing, then can consider Autonomic Function testing. Discussed the possible benefit of ivabradine for heart rate slowing and she agrees; will start at 2.5 mg BID. The following are also recommended: -Sit down or lie down when symptomatic -Caution with assuming upright position (especially at night), with use of the toilet, and with showering. -Avoid dehydration -Consider using a Home Medical Alert System / Personal Emergency Response System -Avoid activities that may be hazardous to yourself or others in the context of active episodes loss of consciousness or near loss of consciousness. -Local / state laws should be followed regarding driving. Otherwise, general recommendations include: -No private driving if symptoms occur while driving. No operating heavy machinery or working from heights if symptoms occur. -No private driving for 1 month following an episode of syncope. [ACC/AHA Syncope Guidelines 2017. PMID [id number]] -If syncope is frequent (more than 6 episodes in 1 year), then no private driving until symptoms are controlled. [ACC/AHA Syncope Guidelines 2017. PMID [id number]] -For professional or commercial driving, driving recommendations may differ depending upon company or governmental regulations. The Nurses and Nurse Practitioners at [facility] are integral to your care. -*Test results will be available on [employer].* -For brief questions regarding the test results, please send a [employer] message or call the office ([phone]), and a Nurse will be in contact. -If you would prefer more extensive discussions of the test results and recommendations, you can request a follow up visit (which can be a Virtual Visit if you prefer). Thank you for your consultation. Sincerely, Yuan Schafer MD, RS, FACC Director of the Syncope Center Cardiac Electrophysiology [facility] A copy of this note will be made available to your referring or primary physician. As a national referral center for syncope and related conditions seeing patients from across the country, we depend upon the involvement of your primary care physician for long-term, ongoing care. Notably, the ongoing management and follow-up of conditions such as Inappropriate Sinus Tachycardia (IST), Postural Tachycardia Syndrome (POTS), and other conditions of orthostatic intolerance involves your primary carephysician. Therefore, please contact your primary care physician to process any needed documentation (such as work forms, disability forms, etc.). Please note, pre-operative cardiac risk evaluation is not a service we provide. Tests or evaluations performed here can be made available upon request. Thank you for your visit today. Our hope is to be able to provide you with further appropriate evaluation of your symptoms to arrive at a diagnosis, and to provide guidance for you and your primary physician as you continue to work together for your ongoing care. Our hope is to help guide you towards the best of health. * Emerita Kraft RN - 08/30/2024 7:30 AM EST Images from the original note were not included. [facility] Department of Cardiovascular Medicine SECTION OF CARDIAC PACING and ELECTROPHYSIOLOGY OUTPATIENT VISIT DATE August 30, 2024 PRIMARY CARE PHYSICIAN: Daniel Guerrero DO [address] [place] [address] REFERRING PHYSICIAN: Daniel Guerrero DO [address] [place] [address], [address] [place] [address] NURSING INTAKE HISTORY: Ms. Braxton is a 29 year old female who is seen today to establish care with a POTS specialist and to have her palpitations and possible SVT evaluated. She has a past medical history of asthma, migraines, distal esophageal spasms (CHUCK), PCOS, TLOC/near syncope, POTS, ?SVT, and palpitations. She has previously failed meclizine. Fludrocortisone has been ordered but not tried as of yet. She takes bisoprolol as needed but has not noticed any effect. In November 2022, she began having episodes of dizziness, lightheadedness, and brain fog. She then also began having migraines associated with visual snow. She had one near syncopal episode while driving in 2022. Her symptoms worsened significantly this past February. She reports several near syncopal episodes per day with HRs in the 150s/160s. Onset of symptoms is typically with HRs in the 120s. She endorses dizziness, lightheadedness, occasional visual changes, and nausea, with occasional L ear muffled hearing. She denies overt LOC. Episodes occur with positional changes and also while laying down. She also endorses brief palpitations unassociated with the near syncope that last about 2 beats followed by a burning sensation that begins in her chest, spreads throughout her whole body with L side > R side. She also gets short of breath with exertion andalso at rest, and occasional BLE edema with prolonged standing. Episodes occur while seated or standing. Symptoms improve with closing eyes or laying down. Neuro work-up (brain MRI, EEG) was unremarkable. Results of a Tilt performed on 04/26/24 were consistent with POTS. She wore a 14-day Holter (04/04 - 04/18/24) which revealed predominant sinus rhythm with an avg HR of80 bpm (min HR 52 bpm, max HR 164 bpm), 12.8% tachycardia burden, and 2.8% bradycardia burden, withrare PVC burden (<1.0%) of 3 disparate morphologies. There were 25 patient triggered events thatdid not correlate to any arrhythmias. She had a normal exercise stress test in February [address] changes of no clinical significance. She reported chest tightness, dizziness, dyspnea, and fatigue, during the stress test. She achieved 8.7 METS with max HR of 166 bpm (86% MPHR, 194 bpm). She denies any recent chest pain, orthopnea, cough, PND, or syncope. FLUIDS/SPORTS>CAFFEINE>ALCOHOL>SALT>COMPRESSION>EXERCISE She drinks 120 ounces of water per day and adds electrolytes to all her water (8,000 mg Na daily). She also drinks gatorade light. She doesn't drink any alcohol or caffeine. She salts her food. She did try thigh-high compression stockings but didn't notice any improvement. She reports significant exercise intolerance but she does go to PT once a week. HOLTER MONITOR 04/04 - 04/18/24: TILT TABLE TEST 04/26/24: * FINAL IMPRESSIONS * - The test was completed per protocol at 30 minutes of 70 degree tilt. - Systolic blood pressures remained stable from 113 mmHg at start to 120 mmHg at end of tilt. - Diastolic blood pressures remained stable from 73 mmHg at start to 90 mmHg at end of tilt. - Blood pressure upon return to supine position was 125/62 mmHg. - Heart rates increased from 79 bpm at start to 119 bpm at end of tilt. - Heart rate upon return to supine position was 81 bpm. - ECGs showed: NO asystole was seen. - Patient signs/symptoms included: lightheadedness/dizziness, nausea, shortness of breath, chest pain. - Syncope/impending syncope was NOT induced. - Overall: The test is diagnostic for accentuated postural tachycardia with early rise in heart rate. The test is negative for syncope. [facility] EXERCISE STRESS TEST 03/06/24: NARRATIVE Stress ECG: Conclusion: The stress test had minor ST changes of no clinical significance. The stress test is normal. Stress Test: A Jonny protocol stress test was performed. Overall, the patient's exercise capacity was average for their age. The patient exercised for 7 min and 10 sec. Hemodynamics are adequate for diagnosis. Blood pressure demonstrated a blunted response and heart rate demonstrated a normal response to stress. The patient's heart rate recovery was normal. The patient reported chest pain, dizziness, dyspnea and fatigue during the stress test. Chest pain was characterized as tightness. Resting ECG: The ECG shows normal sinus rhythm. Resting ECG shows non-specific T waves. Resting ECG The ECG shows normal sinus rhythm. Resting ECG shows non-specific T waves. Stress Findings A Jonny protocol stress test was performed. Overall, the patient's exercise capacity was average for their age. The patient exercised for 7 min and 10 sec. Cherelle rating of perceived exertion was 17. Hemodynamics are adequate for diagnosis. Blood pressure demonstrated a blunted response and heart rate demonstrated a normal response to stress. The patient's heart rate recovery was normal. The patient reported chest pain prior to the stress test. Chest pain was characterized as tightness prior to the stress test. The patient reported chest pain, dizziness, dyspnea and fatigue during the stress test. Chest pain was characterized as tightness. Symptoms began prior to stress and persisted during recovery. The test was stopped because the patient experienced dizziness and dyspnea. Stress ECG There were no arrhythmias during stress. Non-significant (<1mm) upsloping ST depression was noted. There were no noted arrhythmias during recovery. There were no ST changes during recovery. Conclusion: The stress test had minor ST changes of no clinical significance. The stress test is normal. OSH ECHO/TTE 02/29/24: NARRATIVE Left Ventricle: Left ventricle size is normal. Normal wall thickness. Normal left ventricular systolic function. EF by 2D Simpsons Biplane is 57%. Normal wall motion. Normal diastolic function. Right Ventricle: Right ventricle size is normal. Normal systolic function. No significant valvular abnormalities. TILT TABLE TEST 05/05/23: (Under cardiac>05/05/23>EPS:TILT) * FINAL IMPRESSIONS * - The test was completed per protocol at 30 minutes of 70 degree tilt. - Systolic blood pressures remained stable from 115 mmHg at start to 109 mmHg at end of tilt. - Diastolic blood pressures remained stable from 74 mmHg at start to 70 mmHg at end of tilt. - Blood pressure upon return to supine position was 108/71 mmHg. - Heart rates increased from 81 bpm at start to 103 bpm at end of tilt, with a peak heart rate of 111 bpm during tilt. - Heart rate upon return to supine position was 88 bpm. - ECGs showed: NO asystole was seen. - Patient signs/symptoms included: dizziness. - Overall: The test is diagnostic for accentuated postural tachycardia. The test is negative for syncope. TILT TABLE TEST 05/05/23: (under Cardiac>05/06/23>Cardiology report) STRESS TEST/TILT STUDY PER TILT 12-LEAD PROTOCOL 05/05/23: (Under Cardiac>05/10/23>Stress Test: Scanned Result) PAST MEDICAL HISTORY Diagnosis Date Asthma Generalized anxiety disorder Migraines PCOS (polycystic ovarian syndrome) POTS (postural orthostatic tachycardia syndrome) Tilt x2 ([facility]) Seasonal allergies Syncope PAST SURGICAL HISTORY Procedure Laterality Date TONSILLECTOMY & ADENOIDECTOMY <AGE 14 SOCIAL HISTORY Social History Tobacco Use Smoking status: Never Smokeless tobacco: Never Vaping Use Vaping status: Never Used Substance Use Topics Alcohol use: Never Drug use: Never FAMILY HISTORY Problem Relation Age of Onset other (palpitations) Mother stress No Known Problems Father No Known Problems Sister Skin Cancer Maternal Grandmother Diabetes Paternal Grandmother ALLERGIES: ALLERGIES Allergen Reactions Beef Containing Pro* Intolerance migraines Migraines, upset stomach Beef Derived (Bovin* Hives Beta-Blockers (Beta* Contraindication-Medical Surgical Patient carries Epipen for pineapple allergy. Egg Derived GI Upset Vomiting even with ingredient of egg Milk Containing Pro* Intolerance, Hives Vomiting. Pineapple Hives, Swelling Hives, difficulty breathing Soy GI Upset vomiting Tree Nuts Other: See Comments Asthma flaring, difficulty breathing Vancomycin Analogues Hives MEDICATIONS: amitriptyline (ELAVIL) 25 mg tablet^Take 1 tablet by mouth daily at bedtime.^Disp: 30 tablet^Rfl: 0 nitroglycerin sublingual (NITROQUICK) 0.3 mg SL tablet^Dissolve 1 tablet under the tongue one time only for 1 dose. To be administered in Radiology for CTA exam^Disp: 1 tablet^Rfl: 0 bisoprolol (ZEBETA) 5 mg tablet^Take 1 tablet by mouth once daily.^Disp: 30 tablet^Rfl: 5 (Patient taking differently: Take 5 mg by mouth as needed (PRN for HRs > 135/140 bpm).) budesonide-formoterol (SYMBICORT) 160-4.5 mcg/actuation inhaler^Inhale 2 Puffs as instructed two times a day.^Disp: 10.2 g^Rfl: 5 EPINEPHrine (EPIPEN) 0.3 mg/0.3 mL auto-injector^Inject 0.3 mg intramuscularly as needed.^Disp: ^Rfl: fludrocortisone (FLORINEF) 0.1 mg tablet^Take 0.05 mg by mouth once daily.^Disp: ^Rfl: (Patient nottaking: Reported on 08/30/2024) Ht 5' 0 (1.52m) Wt 105 lb (47.6kg) LMP 08/24/2024 BMI 20.51 kg/(m^2). BP w/Orthostatic Vitals Date and Time Orthostatic BP Orthostatic Pulse BP Pulse BP Position BP Site BP Cuff Size 08/30/24 0832 135/97 139 -- -- Standing Left Arm -- 08/30/24 0831 134/97 133 -- -- Sitting Left Arm -- 08/30/24 0828 137/90 126 -- -- Supine Left Arm Small Adult REVIEW OF SYSTEMS: General, constitutional: Weight loss or gain- No, Fever or chills-No, Weakness- yes, Trouble sleeping-yes. Head, Eyes, Ears, Mouth: Headache, head injury-No, Glasses or contact lenses- yes, Pain-No, Impairedvision-No, Decreased hearing-No, Ringing in ears-No, Nose bleeds-No, Dental difficulties-No, Bleeding gums-No, Dentures-No. Neck: Swelling-No, Pain-No, Stiffness-No. Respiratory: Cough-yes, Spitting up blood-No, Shortness of breath-yes, Wheezing or asthma-No. Musculoskeletal: Muscle or joint pain or stiffness-No, Joint swelling-No. Gastrointestinal: Difficulty swallowing-No, Heartburn-No, Change in bowel habits-yes, Blood in stool, Dark black stools-No. Neurological/Psychiatric: Weakness, paralysis-No, Numbness-No, Tingling-yes, Tremor-yes, Nervousness or anxiety-No, Depressed mood-No, Memory loss-No. Skin: Rash-No, Itching-yes. Hematological: Easy bruising-No, Easy bleeding-No. Endocrine: Heat or cold intolerance-No, Excessive sweating-No, Frequent urination-yes, Frequent thirst-yes. [facility] Score Please estimate the frequency of the following symptoms: Never-0, Rare-1, Occasional-2, Frequent-3, Daily-4, Constant*-5 Symptoms Subtotal Syncope/Near Syncope Score 1 Dizziness/Lightheadedness Score 5 Exercise Intolerance Score 5 Headache Score 5 Sleep Problems Score 4 Total Frequency Score 19 *For syncope/near syncope multiple episodes daily Please estimate the severity of the following symptoms: None-0, Minimal-1, Mild-2, Moderate-3, Severe-4, Intolerable-5 Symptoms Subtotal Palpitations/Tachycardia Score 5 Fatigue Score 4 Brain Fog Score 4 Shortness of Breath Score 4 GI Symptoms Score* 4 Total Severity Score 21 *GI symptoms include nausea, bloating, diarrhea, constipation, poor appetite, abdominal pain, earlysatiety Total of Both Sections: 40 Emerita Kraft RN documented in this encounterCleveland [id number] [facility]02-18-2025 [facility]02-18-2025 History of Present illness Narrative* Apple Salinas LPN - 08/28/2024 3:28 PM EST ED Follow Up: Patient discharged from [facility] ED on 08/24/2024. 1. How are you feeling since your ED visit? Not better still having episodes of rapid heart rate Have your symptoms improved or resolved? No 2. Were you prescribed any medications while in the ED or advised to stop any medication? No - If yes, were you able to fill your prescriptions? Not applicable -if stopped medication, what was the medication? N/A 3. Were you advised to schedule a follow up appointment with your provider? Yes - If no, Do you feel like you need an appointment scheduled? No - If yes, Do you need this scheduled now or has this already been scheduled? No seeing a specialiston 4. Were you able to contact the office or environmental field technician provider prior to your ED visit? Not applicable 5. Is there anything else I can do for you today? No Apple Salinas LPN documented in this encounterK[facility] History of Present illness Narrative* Joann Braxton, PhD - 08/25/2024 12:00 PM EST [facility] Psychology Progress Note Billing codes: 0M9/Fox PSYCHOLOGY: FOLLOW-UP APPOINTMENT PROGRESS NOTE- Telehealth Visit (Zoom technical difficulties precluded video visit) I have communicated my name and active licensure. The patient's identity and physical location wereverified at the time of this visit. Either the patient or their legal collections representative has been informed of the risks and benefits of -- and alternatives to -- treatment through a remote evaluation andconsents to proceed with the evaluation remotely. Amie Braxton 08/25/2024 [id number] PROVIDER: Joann Braxton, PhD Service: CPT Code: 23173 - Non-Physician Telephone Assessment (21-30 min) Diagnosis: Psychological and behavioral factors associated with disorders or diseases classified elsewhere (primary encounter diagnosis) persistent postural perceptual vertigo Time spent doing therapy with patient: 12:13-12:36 pm Parties Present: Patient Interventions: Cognitive Behavioral MENTAL STATUS: Mood: anxious Affect: mood-congruent Thoughts/Associations: organized Suicidal/Homicidal Ideation: Patient denies being suicidal, but does not want to live like this MEDICATIONS: Per medical record: Current Outpatient Medications Medication Sig amitriptyline (ELAVIL) 25 mg tablet Take 1 tablet by mouth daily at bedtime. medroxyPROGESTERone (PROVERA) 10 mg tablet Take 1 tablet by mouth once daily. Take for 10 days every 1-2 months fluticasone-salmeterol (ADVAIR DISKUS) 500-50 mcg/dose dsdv Inhale 1 Puff as instructed two times aday. Rinse and gargle mouth with water after each use. nitroglycerin sublingual (NITROQUICK) 0.3 mg SL tablet Dissolve 1 tablet under the tongue one time only for 1 dose. To be administered in Radiology for CTA exam (Patient taking differently: Dissolve under the tongue one time only. Patient has on hand at home and will take as directed.) bisoprolol (ZEBETA) 5 mg tablet Take 1 tablet by mouth once daily. azelastine 0.1% nasal spray Use 1-2 Sprays in each nostril two times a day as needed. topiramate (TOPAMAX) 25 mg tablet Take by mouth. One pill daily for a week; then one pill twice daily for a week; then one pill three times daily for a week; then two pills twice daily thereafter. (Patient not taking: Reported on 08/07/2024) budesonide-formoterol (SYMBICORT) 160-4.5 mcg/actuation inhaler Inhale 2 Puffs as instructed two times a day. (Patient not taking: Reported on 08/07/2024) albuterol HFA (PROVENTIL HFA, VENTOLIN HFA) 90 mcg/actuation inhaler INHALE 1 TO 2 PUFFS EVERY 4 TO6 HOURS NEEDED FOR WHEEZE FOR UP TO 30 DAYS EPINEPHrine (EPIPEN) 0.3 mg/0.3 mL auto-injector Inject 0.3 mg intramuscularly as needed. Current Facility-Administered Medications Medication Dose Route Frequency cyanocobalamin 1,000 mcg injection 1,000 mcg INTRAMUSCULAR q 1 MONTH Psychiatric Medication Issues: No change from previous appointment Mood/Behavior Depression: PHQ-9 Score: 24 usually representing severe (20-27) depression. Anxiety: TERA-7 Total Score: 21 usually representing severe (>15) anxiety. Finally, the following table shows the patient's overall global physical and mental health using the PROMIS scale: PROMIS-10 Flowsheet Row Distance Health from 06/19/2024 in [facility] Office Visit from 10/12/2021 in Neurology Global Physical Health T Score 26.7 32.4 Global Mental Health T Score 28.4 31.3 0-10 Standard Pain Scale 2 3 *PROMIS-10 scoring scale: mean = 50, over 50 is above average, under 50 is below average PROGRESS TO DATE/ASSESSMENT: Ms. Braxton presents with established diagnoses of psych and behavioral factors associated with PPPV. Today patient reports she has been having runs of tachycardia and has been to the ED twice this past week. She will be meeting with cardiology on to discuss if this is POTS related or possible SVT (and the possible utility of ablation). She notes anxiety has escalated as a result of theseepisodes, as she feels they often happen when she is calm and resting. She has been intention aboutpushing water and sodium, so she does not feel these are influencing factors. Session time was spent discussing ways Ms. rBaxton can best manage anxiety associated with intermittent tachy episodes, how she can best involve her family and friend support when anxiety worsens (sometimes this is associated with heightened HR and sometimes not), and how she can best advocate for her needs during her upcoming cardiology visit. TREATMENT PLAN/GOALS/OBJECTIVES: Homework: Support plan to share with family/friends (check list of needs/coping strategies) Next: Cognitive Restructuring Making new thoughts become habits Expand present -moment awareness Follow Up: TBD- she will update me via [employer] after cardio appt Joann Braxton, Ph.D. Staff, [facility] documented in this encounterK[facility]-15-2025 NoteOhio[facility] Instructions* Patient Instructions* Martha Hassan PA-C - 08/23/2024 1:01 PM EST Welcome to [facility]! The 'COV' represents SARS-CoV-2, also known as COVID-19. Our clinic's mission is to assess and guide individuals who are experiencing long-term effects of COVID-19 to state of the art care paths tailored to fit each person. You were just seen for your follow up visit to review test results. We have now determined the bestcare path for your specific needs. The next step is to follow up with a specialist(s) based on yourunique presentation. - The [facility] Team Continue omega supplement 1,000 mg daily, may increase to 2,000 mg daily if well tolerated. If higher dose is not tolerated decrease [place] supplement. Try to incorporate more [place] 3 into your diet naturally. - Fish and other seafood (especially cold-water fatty fish, such as salmon, mackerel, tuna, salinas, and sardines) - Seeds (such as flaxseed, сергей seeds) - Kidney beans Patient and I discussed low Vitamin D. Recommend patient continue taking 5000 IU Vitamin D supplement daily. Follow up with PCP in 3 months. Please be sure to take the BACH test. It was sent to you in a [employer] message. Keep all scheduled appointments. Follow up with Specialist and PCP as needed. documented in this encounterKettering [facility]02-13-2025 History of Present illness Narrative* Martha Hassan PA-C - 08/23/2024 1:00 PM EST Images from the original note were not included. [facility] Virtual Follow-up Evaluation I have communicated my name and active licensure. The patient's identity and physical location wereverified at the time of this visit. Either the patient or their legal collections representative has been informed of the risks and benefits of -- and alternatives to -- treatment through a remote evaluation andconsents to proceed with the evaluation remotely. This is a virtual visit using [employer] Zoom Video Visit. It required patient- provider interaction for the medical decision making as documented below. Initial reCOVer visit conducted: 07/09/2024 in person with LING Willams at the request Daniel Conroy DO for evaluation of prolonged, > 28 days, symptoms attributed to COVID-19 infection. They have requested this consultation via eConsult and will be communicated to via the [facility] [place] [facility] [employer] Correspondence. COVID-19 testing was initially positive on 04/2020; 11/2021 HPI: Amie Braxton is a 28 year old female presenting with primary symptoms as listed below: Most significant symptoms copied directly from my initial note: Asthma: present prior to COVID and now worse. SOB occurs both at rest and with exertion. Walking, stairs, carrying heavy objects. occasional wheezing. persistent cough. never smoker. Follows with pulmonology, has symbicort and albuterol. Not using albuterol as it give her really bad palpitations. POTS symptoms?/ Dizziness chest pain/ palpitation: constant Dizziness, feels like she is on a boat,goes in and out, sometimes so bad she is unable to function normally. Driving or riding in a car makes her dizzy. Tachycardia and palpitations occurs at random. Chest pain normally feels like a chesttightness or heaviness, or squeezing, thi is always there, but it can get worse to where she feels like someone kicked her in the chest or like there is internal bruising. Cardiology recommended betablocker, she is taking this as needed. Tilt table testing positive for POTS. Headaches: Headaches occur daily. Pain is located either in the front and forehead or in the occipital region. Pain varies in nature, can be stabbing, stinging, pressure. both light and noise sensitivity. Saw neurology, started on topamax, reports no improvement with this. Food intolerance: Intolerance to red meat, dairy, eggs, peanut, pineapple, soy, tree nuts. Eating these will either make her vomit or give her hives. follows with GI, and allergy got EGD done , and was consulted to speech therapy. Also started on astelin. Reports she will also get hives at random at times. Brain fog: Difficulty remembering conversations. Difficulty with name and word recall. Difficulty focusing. Task take longer to complete 2/2 distraction and forgetting what she was doing. Having to re-read items multiple times. Difficulty following a story/TV shows plot. Difficulty with thought processing. Some safety concerns, such as forgetting to lock door. Reports she is not driving by choiceas she feels very spacy when driving. Bladder issues: present prior to COVID, started in highschool, did get worse after COVID. Nerve pain: Started about 4 months ago. Stinging and burning in nature. It gets hots Gets a straight ling that goes down her body points to her head and draws a line down to her arms, and legs. Feelslike brain zaps. Feels like it moves around the body. Today's Update: Today the patient is doing slightly better from above. Vestibular and ST have been helpful. Vestibular helped with her neck issues, pressure relapsing and tension. Does not feel like it has helped with the dizziness though. Speech has helped in creating more structure in her life and helpful with task managing, lots of resources. Charting has been very helpful. Saw Dr. Means. Per his note, Stroboscopy showed a normal larynx. 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 I recommended to do a course of respiratory therapy and to train using a respiratorymuscle strength technical trainer. Will reassess at the completion of therapy She saw integrative medicine and they recommended acupuncture, supplements, lifestyle changes. First session of acupuncture helped a lot with fatigue, but seconds session she felt worse afterwards. ST is going well. PT is going well. She did not take BACH They have started taking the vit d, omegas and are tolerating them well. Upcomming Appointments: 08/31 integrative medicine 09/03 headache clinic 09/04 cardiology Tests & Evaluations ordered, completed, and reviewed: (I have personally reviewed the findings on all imaging, PFTs, and labs) ECG Recent Results (from the past 8760 hours) ECG COMPLETE Collection Time: 08/20/24 1:33 PM Result Value Ventricular Rate 135 Atrial Rate 135 P-R Interval 120 QRS Duration 86 QT Interval 290 QTC Calculation (Bazett) 435 Calculated P [place] 80 Calculated R [place] 77 Calculated T [place] 46 Impression SINUS TACHYCARDIA POSSIBLE LEFT ATRIAL ENLARGEMENT NONSPECIFIC ST ABNORMALITY ABNORMAL ECG WHEN COMPARED WITH ECG OF 20-Aug-2024 13:19, T WAVE INVERSION LESS EVIDENT IN INFERIOR LEADS T WAVE INVERSION NO LONGER EVIDENT IN LATERAL LEADS PFT: SPIROMETRY WITH DILATOR IF OBSTRUCTED ([id number]) - ordered on 06/22/24 IMPRESSION: Spirometry is normal. CXR: Last XR Chest - Impression Only XR CHEST 1V FRONTAL Exam End: 08/20/2024 2:08 PM (Final result) Impression: IMPRESSION: No acute radiographic abnormality. ... Labs Reviewed in detail. All labs unremarkable besides the following: Latest Ref Rng 07/09/2024 WBC 3.70 - 11.00 k/uL 5.27 RBC 3.90 - 5.20 m/uL 5.44 (H) Hemoglobin 11.5 - 15.5 g/dL 16.2 (H) Hematocrit 36.0 - 46.0 % 49.1 (H) MCV 80.0 - 100.0 fL 90.3 MCH 26.0 - 34.0 pg 29.8 MCHC 30.5 - 36.0 g/dL 33.0 RDW-CV 11.5 - 15.0 % 13.2 Platelet Count 150 - 400 k/uL 306 MPV 9.0 - 12.7 fL 11.4 Neut% % 54.0 Abs Neut (ANC) 1.45 - 7.50 k/uL 2.85 Lymph% % 35.7 Abs Lymph 1.00 - 4.00 k/uL 1.88 Lamar% % 6.5 Abs Lamar <0.87 k/uL 0.34 Eosin% % 2.5 Abs Eosin <0.46 k/uL 0.13 Baso% % 0.9 Abs Baso <0.11 k/uL 0.05 Immature Gran % % 0.4 IMMATURE GRANS (ABS) <0.10 k/uL <0.03 NRBC /100 WBC 0.0 Absolute nRBC <0.01 k/uL <0.01 DTYPE Auto Protein, Total 6.3 - 8.0 g/dL 7.6 Albumin 3.9 - 4.9 g/dL 4.9 Calcium 8.5 - 10.2 mg/dL 9.6 Bilirubin, Total 0.2 - 1.3 mg/dL 0.2 Alkaline Phosphatase 34 - 123 U/L 86 AST 13 - 35 U/L 22 ALT 7 - 38 U/L 47 (H) Glucose 74 - 99 mg/dL 74 BUN 7 - 21 mg/dL 10 Creatinine 0.58 - 0.96 mg/dL 0.80 Sodium 136 - 144 mmol/L 141 Potassium 3.7 - 5.1 mmol/L 4.3 Chloride 98 - 107 mmol/L 102 CO2 22 - 30 mmol/L 25 Anion Gap 8 - 15 mmol/L 14 eGFR >=60 mL/min/1.73m 104 OmegaCheck >5.4 % by wt 3.0 (L) Arachidonic Acid/EPA Ratio 3.7 - 40.7 67.6 (H) [place]-6/[place]-3 Ratio 3.7 - 14.4 14.4 [place]-3 Total % by wt 3.0 [place] EPA 0.2 - 2.3 % by wt 0.2 [place] DPA 0.8 - 1.8 % by wt 1.0 [place] DHA 1.4 - 5.1 % by wt 1.7 [place]-6 Total % by wt 42.8 Arachidonic Acid 8.6 - 15.6 % by wt 15.6 Linoleic Acid 18.6 - 29.5 % by wt 23.1 Vitamin D 25 Hydroxy 31.0 - 80.0 ng/mL 18.1 (L) Legend: (H) High (L) Low Review of Systems Constitutional: Negative for activity change, fatigue and fever. Respiratory: Positive for chest tightness, shortness of breath and wheezing. Negative for cough. Cardiovascular: Positive for chest pain and palpitations. Negative for leg swelling. Gastrointestinal: Negative for abdominal pain, diarrhea, nausea and vomiting. Musculoskeletal: Negative for arthralgias and myalgias. Neurological: Positive for dizziness and headaches. Negative for syncope and light-headedness. Psychiatric/Behavioral: Positive for confusion and decreased concentration. Negative for agitation,dysphoric mood and sleep disturbance. The patient is not nervous/anxious. PAST MEDICAL HISTORY Diagnosis Date Asthma Generalized anxiety disorder Seasonal allergies Medication Review: Current Outpatient Medications on File Prior to Visit Medication Sig amitriptyline (ELAVIL) 25 mg tablet Take 1 tablet by mouth daily at bedtime. medroxyPROGESTERone (PROVERA) 10 mg tablet Take 1 tablet by mouth once daily. Take for 10 days every 1-2 months fluticasone-salmeterol (ADVAIR DISKUS) 500-50 mcg/dose dsdv Inhale 1 Puff as instructed two times aday. Rinse and gargle mouth with water after each use. nitroglycerin sublingual (NITROQUICK) 0.3 mg SL tablet Dissolve 1 tablet under the tongue one time only for 1 dose. To be administered in Radiology for CTA exam (Patient taking differently: Dissolve under the tongue one time only. Patient has on hand at home and will take as directed.) bisoprolol (ZEBETA) 5 mg tablet Take 1 tablet by mouth once daily. azelastine 0.1% nasal spray Use 1-2 Sprays in each nostril two times a day as needed. topiramate (TOPAMAX) 25 mg tablet Take by mouth. One pill daily for a week; then one pill twice daily for a week; then one pill three times daily for a week; then two pills twice daily thereafter. (Patient not taking: Reported on 08/07/2024) budesonide-formoterol (SYMBICORT) 160-4.5 mcg/actuation inhaler Inhale 2 Puffs as instructed two times a day. (Patient not taking: Reported on 08/07/2024) albuterol HFA (PROVENTIL HFA, VENTOLIN HFA) 90 mcg/actuation inhaler INHALE 1 TO 2 PUFFS EVERY 4 TO6 HOURS NEEDED FOR WHEEZE FOR UP TO 30 DAYS EPINEPHrine (EPIPEN) 0.3 mg/0.3 mL auto-injector Inject 0.3 mg intramuscularly as needed. Current Facility-Administered Medications on File Prior to Visit Medication cyanocobalamin 1,000 mcg injection Initial screening questionnaires: Patient Entered Questionnaires 08/23/2024 COVID Symptoms Onset: 04/21/2020 PROMIS/NeuroQoL Score Percentiles 08/23/2024 Physical Health Fatigue Percentile 0 Sleep Percentile 21* 06/19/2024 10/12/2021 PROMIS Global Health Scale Physical Health Percentile 1 4 Mental Health Percentile 2 3 Patient-reported Percentiles provide an indication of how a patient s score ranks in relation to the [place] general population. > 31st percentile is within normal limits or better * < 31st percentile is at least SD worse than population, which may be clinically relevant < 16th percentile is at least 1 SD worse than population and warrants attention 08/23/2024 06/19/2024 02/16/2024 PHQ-9 PHQ-2 Score 4 5 5 PHQ-9 Score 14 17 20 06/19/2024 02/16/2024 TERA - 2/7 SCORES TERA-2 Score 5 6 TERA-7 Score 18 21 Objective Findings: Vitals: LMP 04/10/2024 (Approximate) Physical Examination (Video): Physical Exam Constitutional: General: She is not in acute distress. Appearance: Normal appearance. She is not ill-appearing, toxic-appearing or diaphoretic. Eyes: Conjunctiva/sclera: Conjunctivae normal. Pulmonary: Effort: Pulmonary effort is normal. Neurological: Mental Status: She is alert and oriented to person, place, and time. Cranial Nerves: No facial asymmetry. Psychiatric: Mood and Affect: Mood normal. Behavior: Behavior normal. Thought Content: Thought content normal. Judgment: Judgment normal. Assessment and Plan: 1. Shortness of breath - ICD9: 786.05, ICD10: R06.02 (primary diagnosis) 2. Moderate persistent asthma without complication - ICD9: 493.90, ICD10: J45.40 3. POTS (postural orthostatic tachycardia syndrome) - ICD9: 427.89, ICD10: G90.A 4. Dizziness - ICD9: 780.4, ICD10: R42 5. Palpitations - ICD9: 785.1, ICD10: R00.2 6. Tachycardia - ICD9: 785.0, ICD10: R00.0 7. Chest pain, unspecified type - ICD9: 786.50, ICD10: R07.9 8. Headaches - ICD9: 784.0, ICD10: R51.9 9. Food intolerance - ICD9: 579.8, ICD10: K90.49 10. Brain fog - ICD9: 799.59, ICD10: R41.89 11. Memory change - ICD9: 780.93, ICD10: R41.3 12. Nerve pain - ICD9: 729.2, ICD10: M79.2 13. Post-acute sequelae of COVID-19 (PASC) - ICD9: 139.8, ICD10: U09.9 Based on the patients symptomology and work-up, through shared-decision making between myself and the patient the following care paths have been initiated: All testing, imaging, and labs, performed were reviewed with the patient. All patients questions answered at this time. The patient was again informed of how [facility] functions. We are a referral service. They have now had both of their recover clinic visits and from now on it is expected that they continue to follow up with their PCP and the specialist established through this program. 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 Continue omega supplement 1,000 mg daily, may increase to 2,000 mg daily if well tolerated. If higher dose is not tolerated decrease [place] supplement. Try to incorporate more [place] 3 into your diet naturally. - Fish and other seafood (especially cold-water fatty fish, such as salmon, mackerel, tuna, [place], and sardines) - Seeds (such as flaxseed, сергей seeds) - Kidney beans Patient and I discussed low Vitamin D. Recommend patient continue taking 5000 IU Vitamin D supplement daily. Follow up with PCP in 3 months. Please be sure to take the BACH test. It was sent to you in a [employer] message. Keep all scheduled appointments. Follow up with Specialist and PCP as needed. Martha Hassan PA-C documented in [facility] encounterK[facility]-13-[facility] NoteOhio[facility] Telephone encounter Note* Telephone Encounter - Sánchez Hein PSS - 08/20/2024 2:51 PM EST Patient scheduled with Martha Hassan on 08/23/2024. [facility]02-10-2025 Miscellaneous Notes* Telephone Encounter - Sánchez Hein PSS - 08/20/2024 2:51 PM EST Patient scheduled with Martha Hassan on 08/23/2024. * Telephone Encounter - Sánchez Hein PSS - 08/16/2024 11:33 AM EST Patient scheduled on 08/17/2024 with Martha Crow in error. Called patient to reschedule virtual recover clinic follow up with Martha Hassan, 1st attempt, left VM. documented in this encounterK[facility]02-10-2025 NoteOhio[facility]02-10-2025 History of Present illness Narrative* Kimi Dinero CCC- CRYOLITE RECOVERY OPERATOR - 08/20/2024 10:37 AM EST Episode Visit Count: 3 Therapist That Will Accept/Oversee The Plan Of Care: Kimi Dinero Start of Care Date: 07/19/24 Onset Date: 07/09/24 Plan of Care Certification Date: 07/19/24 Next Certification Due Date: 10/17/24 Patient Identified by Name and Date of : Yes REHABILITATION AND SPORTS THERAPY SPEECH THERAPY TREATMENT NOTE IMPRESSION: Communication deficits identified: Cognitive-Linguistic deficits CRYOLITE RECOVERY OPERATOR Recommendations: Outpatient Speech Therapy Results and Recommendations Discussed With: Patient PLAN: Planned Treatment Interventions: Cognitive-Linguistic Training (84503, 95153, 63295), Patient / Caregiver Education/ Training, Cognitive Skills Development (14814, 62029), Expressive Language Training (86020, 61738) Current Frequency: 1x/week Duration: 8 weeks PLAN FOR NEXT VISIT: cognitive overload strateiges, mental fatigue management, memory tasks/strategies, attention tasks/strategies, expressive language tasks/strategies SUBJECTIVE: Subjective: Amie reports no changes since last session. She brings back papers from last session r/t mental fatigue. OBJECTIVE: MEASURES WITH LEVEL OF FUNCTION: Professional training and skilled instructions were provided as follows: Expressive language skills Patient / Caregiver education: Word retrieval strategies (handout provided). Verbal and written education provided on language tasks/games for home practice. Education and discussion on managing mental fatigue, creating routine. Handout for metacognition, evaluation daily schedule and symptoms withwhat strategies were effective and ways to improve provided. Speech/Voice/Language Divergent Naming - (%): 100 % (Named 7 items for abstract categories given mildly increased time.) Divergent Naming Cues Provided: Without Cues TREATMENT: Speech/Language Therapy (87581): Skilled Intervention: Educated and instructed patient on compensatory strategies for word-finding and cognitive strategies including managing mental fatigue, routines, metacognitive tools. Billing: Speech Treatment (12656) Total time / Length of visit: 60 minutes Session Start Time : 914 Session Stop Time : 1014 Kimi Dinero CCC-CRYOLITE RECOVERY OPERATOR documented in this encounterKet[facility]02-07-2025 NoteOhio[facility]02-07-2025 History of Present illness Narrative* Arvind LukeothyRay - 08/17/2024 1:58 PM EST Amie Braxton a 28 year old female presents to the acupuncture clinic on 08/17/24 for a follow up visit. Patient identity confirmed by name and : Yes This is the 2 visit for the patient this year It has been 2+ week(s) since the last acupuncture treatment. Last treatment date: 07/30/2024 Initial Acupuncture treatment date: 07/30/2024 Chief Complaint: headaches, brain fog, pain SUBJECTIVE Acupuncture helped a lot with her fatigue. She felt she had energy do stuff for about a week maybe a week and a half. The rest of the symptoms remains roughly same. Pain in the head worse with motion. Ear is bothering her today. Nothing out of the ordinary. PAIN ASSESSMENT: Currently experiencing pain Pain level (0 no pain at all to 10 being the worst): 5 Pain character Generalized and Constant Pain quality Stiff, Dull, Achy, and Burning OBJECTIVE: Physical Exam: Tenderness: none Pain with palpation: none Tightness: suboccipitals Charito/Trigger points: none Visual Inspection Discoloration: none Edema: none Gait/Ambulation: normal [place]: fair to good Qi/Patient vitality: fair to good Alert, No distress, and Cooperative Well-Groomed and Pleasant Normal breathing TCM Tongue: not observed TCM Pulse: thin and rapid ASSESSMENT Patient presents with signs and symptoms consistent with the diagnosis. Patient would benefit from acupuncture therapy to address listed deficiencies and return to PLOF. Pt was educated on symptoms, prognosis, plan of care and activity modifications. Pt verbalized understanding and agreed to begin care. TCM Pattern: Headaches (primary encounter diagnosis) Tachycardia Chest pain, unspecified type Nerve pain due to Qi and Blood deficiency with heat TCM Treatment Principle: tonify Qi and Blood, clear heat, reduce pain, improve ADLs PLAN OF CARE Counseled patient on risks of acupuncture treatment including pain, infection, bleeding, and no relief of pain. The patient was positioned comfortably. There was no evidence of infection at the site of needle insertions. Acupuncture Treatment: Treatment/Needle Set 1, Supine: Points: PC 6, TW 5, GB 41, LV 3, SP 10 15 minutes face to face with patient for set 1 Treatment/Needle Set 2, Supine: Points: ST 36, LI 11, LV 8, KD 6, SP 6 10 minutes face to face with patient for set 2 Donnelly were retained for 45 minutes # of needles inserted: 20 # of needles withdrawn: 20 Adjunct techniques used: TDP Infrared Heat Lamp- Applied to legs Patient tolerated the procedure well. UNIVERSAL PROTOCOL / SAFETY CHECKLIST Procedure to be Performed: acupuncture Sign In: A Moment of CARE was completed. Personnel directly involved with the procedure wore the appropriate PPE (Personal Protective Equipment). Patient/Surrogate Stated/Verified: PATIENT VERIFIED(optional for EMERGENT procedures): Patient name, Date of , Relevant allergies, and The intended procedure Time Out Communication: Intended patient and procedure match the source documents. Consent documented and matches the intended procedure. Sign Out: SIGN OUT (optional for EMERGENT procedures): All instruments, equipment, possible retained foreign bodies accounted for. Provider Name: Ray Andino 25 Total minutes face to face time spent with patient Acupuncture and [place] herbal therapy are not a substitute for conventional medical diagnosis and treatment. Patient agrees that either: 1. A diagnostic exam has been performed by a physician or chiropractor within the last six months regarding the condition for which they are seeking acupuncture treatment. or 2. If no diagnostic exam by a physician or chiropractor has been done within the last six months regarding the condition for which patient is seeking treatment, the Adjunct Professor Of Voice, per Sully Law, recommends that this diagnostic exam be performed. documented in this encounterK[facility]02-06-2025 Telephone encounter Note * Telephone Encounter - Sánchez Hein PSS - 08/16/2024 11:33 AM EST Patient scheduled on 08/17/2024 with Martha Crow in error. Called patient to reschedule [facility] follow up with Martha Hassan, 1st attempt, left VM. [facility]02-05-[facility] History of Present illness Narrative* Laxmi Camargo, PT - 08/15/2024 3:41 PM EST Program_ID:[id number] Access Code: [email or web address] URL: [email or web address] Date: 08-15-2024 Prepared By: Laxmi Camargo Program Notes Exercises - Supine Bridge - 1 x daily - x weekly - 1 sets - 10 reps - Supine Active Straight Leg Raise - 1 x daily - x weekly - 1 sets - 10 reps - Beginner Head Nod - 1 x daily - x weekly - 1 sets - 10 reps - Seated Cervical Sidebending Stretch - 1 x daily - x weekly - 1 sets - reps - Sidelying Hip Abduction - 1 x daily - x weekly - 3 sets - 10 reps * Laxmi Camargo, PT - 08/15/2024 2:58 PM EST Episode Visit Count: 2 Therapist That Will Accept/Oversee The Plan Of Care: Laxmi Camargo Start of Care Date: 08/06/24 Onset Date: 07/11/24 (near the end 2019- chronic dizziness) REHABILITATION AND SPORTS THERAPY PHYSICAL THERAPY TREATMENT NOTE ASSESSMENT: Amie Braxton tolerated the session with no issues. She demonstrated improvement in neck stiffness but she ws coming down from a migraine yesterday with continued frontal head pressure this session. Patient headache slightly relieved with manual therapy (occipital improved, frontal remained). Patient less shaky with bridge exercise this session. Core stabilization progressed to include side-lying hip abduction to home exercise program to further address symptoms of dizziness for potential POTS symptoms. The patient will continue to benefit from ongoing skilled physical therapy to progress toward set goals and for reassessment by supervising therapist. PLAN FOR NEXT VISIT: progess core stabilization, aerobics?, cervical SUBJECTIVE: Reports that for the last couple of weeks she has felt like her body as vibrating and she feels the vibrations when she puts her hands on her face. She has also been woken up with the same virbating sensation. Today she feels it in the back of her neck on the right side. She felt it at speech yesterday. It is sporadic and goes away quickly Vestibular Dizziness: Yes Description: spinning (self) (mtion sickness feeling) Rating of current symptoms: 7/10 Frequency: Constant Headache: Yes Description: pressure Rating of current symptoms: 6/10 Location: frontal region, occipital region Neck Symptoms: Yes Description: soreness Rating of current symptoms: 5/10 Pain: Pain Pain Level: 0 OBJECTIVE MEASURES WITH LEVEL OF FUNCTION: Spine Observations R Cervical Spine Palpation Tenderness: Upper trapezius L Cervical Spine Palpation Tenderness: No tenderness noted CTSIB Eyes open, firm surface Trial 1 (sec): 30 Eyes open, firm surface Trial 1 (sway): WNL Eyes closed, firm surface Trial 1 (sec): 30 Eyes closed, firm surface Trial 1 (sway): WNL Eyes open, foam surface Trial 1 (sec): 30 Eyes open, foam surface Trial 1 (sway): WNL Eyes closed, foam surface Trial 1 (sec): 30 Eyes closed, foam surface Trial 1 (sway): Mild TREATMENT: Therapeutic Exercise: 1: *Supine OA nods x 10 2: *Bridges x 10 3: * SLR x 10 each 4: Hamstring Stretch 1 x 30 seconds each leg 5: *S/L hip abduction x 10 each side 6: updated and reviewed HEP Skilled Intervention: Patient was educated in proper exercise technique and purpose for exercises. Patient education as noted. Manual Therapy: 1: STM: Upper traps, suboccipitals, cervical parspinals, SCMs 2: TPR: suboccipitals, upper traps 3: suboccipital release 4: cervical distraction 5: upper trap stretch with overpressure Skilled Intervention: Manual skills to improve joint mobility, ROM, and decrease pain. Utilized anatomy knowledge of the therapist, and assessment of patient's response to intervention. Billing Therapeutic Exercise Treatment Minutes: 20 Manual TherapyTreatment Minutes: 25 Skilled Treatment Time Minutes (timed and untimed codes): 45 Total Session Time (minutes): 45 Session Start Time : 1500 Session Stop Time : 1545 Laxmi Camargo PT, DPT documented in this encounterK[facility]02-05-2025 NoteOhiohealth [facility]02-05-2025 [facility]02-05-2025 History of Present illness Narrative* Nieves Smith MD - 08/15/2024 10:48 AM EST VIRTUAL VISIT PROGRESS NOTE This is a virtual visit using [employer] Zoom Video Visit. It required patient- provider interaction for the medical decision making as documented below. I have communicated my name and active licensure. The patient's identity and physical location wereverified at the time of this visit. Either the patient or their legal collections representative has been informed of the risks and benefits of -- and alternatives to -- treatment through a remote evaluation andconsents to proceed with the evaluation remotely. Amie Braxton is a 28 year old female seen for joint pain Vibration in the neck Chest pain, neck pain. Chronic since she was 19 years old. Burning sensation in whole body. Tenderness. Tried massages. Saw chiropractor. Numbness in left arm. Has spikes with increased symptoms. Paresthesia in her limbs random. Saw neuro. Work up is ongoing. Low back and hip pain worse at the end of the day. Some swelling in her hands. Covid twice 2019, 2021. Long haul covid 2020, (no vaccines) POTS 2022. She has seen cardiology, GI.Denies hypermobility. 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 Family history of autoimmune disease: arthritis Histamine issues in mother side Smoking status: Tobacco Use: Never Rheumatology REVIEW OF SYSTEMS: Constitutional: Recent Weight Change: No Fatigue: YES Fever: No Night sweats: No Heent: Alopecia: YES H/o Inflammatory eye disease (iritis/scleritis): No Hearing loss: No Frequent sinusitis: No Oral ulcers: No Sicca: YES Parotid swelling: No Hoarseness: No Dysphagia: No Heme/lymph: Lymphadenopathy: No Hematological abnormalities (anemia, thrombocytopenia, leukopenia): No Abnormal bleeding: No Skin: Malar or discoid lesions: No Photosensitivity: No Other rashes: No Raynaud's phenomenon: No Hives: YES Tightness: No Nodules/bumps: No Easy Bruising: No Nail changes: No H/o psoriasis: No Gastroenterology: Nausea: YES with dizziness Vomiting: No Change in bowel movements: No Heartburn: No Respiratory: Dry cough/SOB: No Cardiovascular: Pain in chest: No Musculoskeletal: Per HPI Genitourinary: Vaginal dryness: No Rash/ulcers: No Neurological: Headaches: YES Sensitivity or pain of hands and/or feet: No Psychiatry: Anxiety: YES chronic Depression: YES chronic trying new med Poor sleep: YES chronic on trazodone now H/o loss: No H/o thrombosis: No Increased susceptibility to infection: No . HISTORY REVIEWED (electronic chart updated): PAST MEDICAL HISTORY Diagnosis Date Asthma Generalized anxiety disorder Seasonal allergies PAST SURGICAL HISTORY Procedure Laterality Date TONSILLECTOMY & ADENOIDECTOMY <AGE 14 FAMILY HISTORY Problem Relation Age of Onset No Known Problems Mother No Known Problems Father No Known Problems Sister Skin Cancer Maternal Grandmother Diabetes Paternal Grandmother Social History Tobacco Use Smoking status: Never Smokeless tobacco: Never Vaping Use Vaping status: Never Used Substance Use Topics Alcohol use: Never Drug use: Never Current Outpatient Medications Medication Sig amitriptyline (ELAVIL) 25 mg tablet Take 1 tablet by mouth daily at bedtime. medroxyPROGESTERone (PROVERA) 10 mg tablet Take 1 tablet by mouth once daily. Take for 10 days every 1-2 months fluticasone-salmeterol (ADVAIR DISKUS) 500-50 mcg/dose dsdv Inhale 1 Puff as instructed two times aday. Rinse and gargle mouth with water after each use. nitroglycerin sublingual (NITROQUICK) 0.3 mg SL tablet Dissolve 1 tablet under the tongue one time only for 1 dose. To be administered in Radiology for CTA exam (Patient taking differently: Dissolve under the tongue one time only. Patient has on hand at home and will take as directed.) bisoprolol (ZEBETA) 5 mg tablet Take 1 tablet by mouth once daily. azelastine 0.1% nasal spray Use 1-2 Sprays in each nostril two times a day as needed. topiramate (TOPAMAX) 25 mg tablet Take by mouth. One pill daily for a week; then one pill twice daily for a week; then one pill three times daily for a week; then two pills twice daily thereafter. (Patient not taking: Reported on 08/07/2024) budesonide-formoterol (SYMBICORT) 160-4.5 mcg/actuation inhaler Inhale 2 Puffs as instructed two times a day. (Patient not taking: Reported on 08/07/2024) albuterol HFA (PROVENTIL HFA, VENTOLIN HFA) 90 mcg/actuation inhaler INHALE 1 TO 2 PUFFS EVERY 4 TO6 HOURS NEEDED FOR WHEEZE FOR UP TO 30 DAYS EPINEPHrine (EPIPEN) 0.3 mg/0.3 mL auto-injector Inject 0.3 mg intramuscularly as needed. Current Facility-Administered Medications Medication Dose Route Frequency cyanocobalamin 1,000 mcg injection 1,000 mcg INTRAMUSCULAR q 1 MONTH ALLERGIES Allergen Reactions Beef Containing Pro* Intolerance migraines Migraines, upset stomach Beef Derived (Bovin* Hives Beta-Blockers (Beta* Contraindication-Medical Surgical Patient carries Epipen for pineapple allergy. Egg Derived GI Upset Vomiting even with ingredient of egg Milk Containing Pro* Intolerance, Hives Vomiting. Pineapple Hives, Swelling Hives, difficulty breathing Soy GI Upset vomiting Tree Nuts Other: See Comments Asthma flaring, difficulty breathing Vancomycin Analogues Hives REVIEW OF SYSTEMS: All other ROS: negative As noted in HPI PHYSICAL EXAMINATION: VIDEO EXAM: (if completed, performed via video enabled technology) GENERAL: alert and appropriate, in no distress, well-hydrated, well nourished, and happy, smiling, interactive KARMA negative Latest Reference Range & Units 07/13/24 10:02 CCP Antibody IgG Qualitative Negative Negative Anti-CONVEYOR TECHNICIAN <1.0 AI <0.2 Anti-SSA <1.0 AI <0.2 Anti-SSB <1.0 AI <0.2 CCP Antibody, IgG <20 Units <15 Rheumatoid Factor <16 IU/mL <10 CONVEYOR TECHNICIAN Antibody QUAL Negative Negative SSA Antibody Qual Negative Negative SSB Antibody Qual Negative Negative Neck, hands L spine, SI - normal ASSESSMENT: (M25.50) Pain in joint, multiple sites (primary encounter diagnosis) (R53.81, R53.83) Malaise and fatigue @ALLSL@ PLAN: 28-year-old female is here for follow up. Patient reports chronic pain which has been worse over the last few years. She had COVID twice and was diagnosed with long-haul symptoms and POTS. Sleep she also reports seeing several specialist including cardiology and GI. Also getting workup from neurology at present. Reports paresthesia, myalgia, arthralgia and fatigue. KARMA was negative. No signs of synovitis on exam. Fibromyalgia is another possibility. Discussed that it is a diagnosis of exclusion. They are also concerned about other neurological conditions like pinched nerve in the neck, multiple sclerosis. I advised to continue follow-up with neurology for further evaluation. There are no Patient Instructions on file for this visit. I spent a total of 20 minutes on the date of the service which included preparing to see the patient, [id number] patient care, completing clinical documentation, obtaining and/or reviewing separately obtained history, performing a medically appropriate examination, counseling and educating the pat ient/family/caregiver, ordering medications, tests, or procedures, independently interpreting results (not separately reported), and communicating results to the patient/family/caregiver Nieves Smith MD No orders found for this visit on 08/15/24. No orders of the defined types were placed in this encounter. documented in this encounterKet[facility]-04-[facility] History of Present illness Narrative* Kimi Dinero CCC-CRYOLITE RECOVERY OPERATOR - 08/14/2024 4:35 PM EST Program_ID:[id number] Access Code: [email or web address] URL: [email or web address] Date: 08-14-2024 Prepared By: Kimi Dinero Program Notes Patient Education - Strategies for Managing Cognitive Overload * Kimi Dinero CCC-CRYOLITE RECOVERY OPERATOR - 08/14/2024 4:00 PM EST Episode Visit Count: 2 Therapist That Will Accept/Oversee The Plan Of Care: Kimi Dinero Start of Care Date: 07/19/24 Onset Date: 07/09/24 Plan of Care Certification Date: 07/19/24 Next Certification Due Date: 10/17/24 Patient Identified by Name and Date of : Yes REHABILITATION AND SPORTS THERAPY SPEECH THERAPY PROGRESS REPORT PLAN OF CARE UPDATE: Impression: Communication deficits identified: Cognitive-Linguistic deficits Progress Toward Goals: Progressing slower than expected Due To: This is first visit following evaluation d/t awaiting insurance auth Functional gains: Increased use of compensatory strategies Goals for Episode of Care Updated: 08/15/2024 Goals for Episode of Care: created on 07/23/2024 through 10/17/24 EXPRESSIVE LANGUAGE GOALS State synonyms/antonyms with 90 % effectiveness given minimal cues. Goal not yet addressed. Demonstrate the use of taught strategies for effective communication during conversations 95% of the time with minimal cues. Ongoing education for word retrieval strategies including SFA/description, synonyms/antonyms, pause/restart, managing mental fatigue and cognitive overload. Progressing/Goal Partially Achieved. All goals to target the patient's overall ability to facilitate functional communication of ADL medical / social needs. COGNITIVE GOALS Improve categorical naming tasks at a concrete and abstract level with 90% accuracy given minimal assist. Improve immediate and short term/prospective memory to 90% accuracy with use of compensatory strategies with minimal assist/cues. Education and instruction provided on internal/external memory strategies. Pt demonstrates understanding, will continue to trial in therapy sessions. Progressing/Goal Partially Achieved. Improve working memory to WFL during complex cognitive tasks with 90% using compensatory strategies in order to recall the steps taken during a cognitive process. Goal not yet addressed. Improve selective and alternating attention per auditory/visual cognitive tasks to 90% accuracy in order to demonstrate improved ability to focus attention and divide and alternate attention between multiple tasks within the clinical environment. Selective attention for 45 minute session for auditory education with 100% accuracy. No redirections or repetitions required. Progressing/Goal Partially Achieved. All goals to target the patient's overall ability to facilitate functional cognitive linguistic skills. Time Frame for Goals and Treatment : 10/17/24 RECOMMENDATION: Planned Interventions, Frequency, and Duration: Follow up for one visit(s) per week for eight weeksfor Individual skilled ST services Cognitive-Linguistic Training Expressive Language Training Patient / Caregiver Education/ Training Patient / Family express agreement with goals Patient continues to demonstrate the following limitations which require skilled Speech intervention: Decreased expressive language Decreased cognitive linguistic skills CRYOLITE RECOVERY OPERATOR Recommendations: Outpatient Speech Therapy Results and Recommendations Discussed With: Patient Planned Interventions, Frequency, and Duration: Planned Treatment Interventions: Cognitive-Linguistic Training (89737, 89412, 87357), Patient / Caregiver Education/ Training, Cognitive Skills Development (87203, 20223), Expressive Language Training (82242, 60587) Current Frequency: 1x/week Duration: 8 weeks PLAN FOR NEXT VISIT: Review RBANS, cognitive overload strateiges, mental fatigue management, memorytasks/strategies, attention tasks/strategies, expressive language tasks/strategies SUBJECTIVE: Subjective: Amie reports no changes since last session. PROMIS Scales 08/14/2024 Speech Communication Score 65 T-scores: mean of general population = 50. 5 points is clinically meaningfully difference Percentiles provide an indication of how the patient's score ranks in relation to the general population. Higher percentile rankings indicate better function/quality of life. 50th percentile is the average of the general population and indicates half of respondents had a worse score. OBJECTIVE MEASURES WITH LEVEL OF FUNCTION: TREATMENT: Speech/Language Therapy (89353): Skilled Intervention: Educated and instructed patient on compensatory strategies for word-finding and managing mental fatigue and cognitive overload for improved cognitive linguistic functioning. Educated and instructed patient on memory recall strategies such as focused attention, verbal repetition, active repetition, visualization, association, chunking, and external aids. Billing: Speech Treatment (35315) Total time / Length of visit: 45 minutes Session Start Time : 1600 Session Stop Time : 5 Kimi Dinero CCC-CRYOLITE RECOVERY OPERATOR documented in this encounterK[facility]02-04-[facility]25 NoteOhio[facility] History of Present illness Narrative* Sharlene Means, PhD, CCC-CRYOLITE RECOVERY OPERATOR - 08/07/2024 1:45 PM EST [facility] Sharlene Means, Ph.D NAME: Amie Braxton [facility] NO: [id number] DATE OF SERVICE: August 07, 2024 IMPRESSION AND PLAN: Consultation requested by Fely Garcia for evaluation and recommendations regarding management of dyspnea. Amie Braxton is a 28 year old female with post acute sequela of Covid 19, with symptomsof SOB, POTS, headaches, brain fog, and nerve pain since April 2022. [facility] She describes her dyspnea as being present most of the time, and triggered by even very light physical activity or laughing. Occasional stridor. Stroboscopy showed a normal larynx. 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 I recommended to do a course of respiratory therapy and totrain using a respiratory muscle strength technical trainer. Will reassess at the completion of therapy. HISTORY OF PRESENT PROBLEM: Parts of the history are taken from Martha Hassan' notes. A review of the EMR was independently confirmed with the patient in this visit. Amie Braxton is a 28 year old female with long covid symptoms: Covid 19 infection in April 2020. She was not hospitalized or on oxygen therapy. Did not get Covid vaccine. COVID-19 Symptom Review Most significant symptoms: Asthma: present prior to COVID and now worse. SOB occurs both at rest and with exertion. Walking, stairs, carrying heavy objects. occasional wheezing. persistent cough. never smoker. Follows with pulmonology, has symbicort and albuterol. Not using albuterol as it give her really bad palpitations. SOB: Feels she is not getting enough air in, breathing out is not a problem. Feels throat mucous, clears her throat a lot. Occasional noisy inhale sound, likely stridor. Triggered by moving, laughing. It takes 30 to 40 minutes for breathing to normalize after rest. POTS diagnosed in February 2024/ Dizziness chest pain/ palpitation: constant Dizziness, feels like she is on a boat, goes in and out, sometimes so bad she is unable to function normally. Driving or riding in a car makes her dizzy. Tachycardia and palpitations occurs at random. Chest pain normally feels like a chest tightness or heaviness, or squeezing, thi is always there, but it can get worse to where she feels like someone kicked her in the chest or like there is internal bruising. Cardiology recommended beta lela, she is taking this as needed. Tilt table testing positive for POTS. Headaches: Headaches occur daily. Pain is located either in the front and forehead or in the occipital region. Pain varies in nature, can be stabbing, stinging, pressure. both light and noise sensitivity. Saw neurology, started on topamax, reports no improvement with this. Food intolerance: Intolerance to red meat, dairy, eggs, peanut, pineapple, soy, tree nuts. Eating these will either make her vomit or give her hives. follows with GI, and allergy got EGD done , and was consulted to speech therapy. Also started on astelin. Reports she will also get hives at random at times. Brain fog: Difficulty remembering conversations. Difficulty with name and word recall. Difficulty focusing. Task take longer to complete 2/2 distraction and forgetting what she was doing. Having to re-read items multiple times. Difficulty following a story/TV shows plot. Difficulty with thought processing. Some safety concerns, such as forgetting to lock door. Reports she is not driving by choiceas she feels very spacy when driving. Bladder issues: present prior to COVID, started in highschool, did get worse after COVID. Nerve pain: Started about 4 months ago. Stinging and burning in nature. It gets hots Gets a straight ling that goes down her body points to her head and draws a line down to her arms, and legs. Feelslike brain zaps. Feels like it moves around the body. Dyspnea Index: 0 = Never, 1 = Almost Never, 2 = Sometimes, 3 = Almost Always, 4 = Always As reported by patient: 1. I have trouble getting air in when I am having my breathing problem. 3 2. I feel tightness in my throat when I am having my breathing problem. 4 3. It takes more effort to breathe than it used to . 4 4. Changes in weather affect my breathing problem. 4 5. My breathing gets worse with stress. 2 6. I make sound/noise when breathing in. 1 7. I have to strain to breathe. 1 8. My shortness of breath gets worse with exercise or physical activity. 4 9. My breathing problem makes me feel stressed. 2 10. My breathing problem causes me to restrict my personal & social life. 3 TOTAL: 28 Reflux Symptom Index (RSI): This questionnaire assesses the patient's perception of the severity of reflux related symptoms. (Rank as follows: 0=no problem; 3=moderate problem; 5=severe problem Within last month how did following problems affect you? Hoarseness or a problem with your voice. 4 2. Clearing your throat? 4 3. Excess throat mucous or postnasal drip? 4 4. Difficulty swallowing food, liquids or pills? 2 5. Coughing after you ate or after lying down? 3 6. Breathing difficulties or choking episodes? 3 7. Troublesome or annoying cough? 2 8. Sensations of something sticking in your throat or a lump in your throat? 3 9. Heartburn, chest pain, indigestion or stomach acid coming up? 4 TOTAL: 29 PAST MEDICAL HISTORY Diagnosis Date Asthma Generalized anxiety disorder Seasonal allergies Current Outpatient Medications on File Prior to Visit Medication Sig amitriptyline (ELAVIL) 25 mg tablet Take 1 tablet by mouth daily at bedtime. medroxyPROGESTERone (PROVERA) 10 mg tablet Take 1 tablet by mouth once daily. Take for 10 days every 1-2 months fluticasone-salmeterol (ADVAIR DISKUS) 500-50 mcg/dose dsdv Inhale 1 Puff as instructed two times aday. Rinse and gargle mouth with water after each use. nitroglycerin sublingual (NITROQUICK) 0.3 mg SL tablet Dissolve 1 tablet under the tongue one time only for 1 dose. To be administered in Radiology for CTA exam (Patient taking differently: Dissolve under the tongue one time only. Patient has on hand at home and will take as directed.) bisoprolol (ZEBETA) 5 mg tablet Take 1 tablet by mouth once daily. azelastine 0.1% nasal spray Use 1-2 Sprays in each nostril two times a day as needed. topiramate (TOPAMAX) 25 mg tablet Take by mouth. One pill daily for a week; then one pill twice daily for a week; then one pill three times daily for a week; then two pills twice daily thereafter. (Patient not taking: Reported on 08/07/2024) budesonide-formoterol (SYMBICORT) 160-4.5 mcg/actuation inhaler Inhale 2 Puffs as instructed two times a day. (Patient not taking: Reported on 08/07/2024) albuterol HFA (PROVENTIL HFA, VENTOLIN HFA) 90 mcg/actuation inhaler INHALE 1 TO 2 PUFFS EVERY 4 TO6 HOURS NEEDED FOR WHEEZE FOR UP TO 30 DAYS EPINEPHrine (EPIPEN) 0.3 mg/0.3 mL auto-injector Inject 0.3 mg intramuscularly as needed. Current Facility-Administered Medications on File Prior to Visit Medication cyanocobalamin 1,000 mcg injection PROCEDURE: The patient was sprayed with 2% lidocaine and 1% phenylephrine. After an approximate amount of timefor vasoconstriction and anesthesia to be achieved, a flexible fiberoptic laryngoscope was insertedinto the nasal cavity, nasopharynx, down to the oropharynx. A laryngeal function study which included videoendoscopy with stroboscopy was performed. FINDINGS: Findings revealed that the epiglottis, AE folds, vallecula, and pyriform sinuses appearednormal. No cobblestoning or erythema was appreciated along the posterior oropharyngeal wall. Inspection of the larynx revealed there were no lesions, tumor, masses, ulcerations or areas of leukoplakia identified. The subglottis was patent, no evidence of any stenosis was appreciated. Range of motion of the vocal folds is within normal limits bilaterally. There is no edema or eryhtema. The vocal folds appear with good color. The edges are straight. During phonation, the pattern of glottal closure is complete. Amplitude of vibration and mucosal waves are within normal limits bilaterally. The scope was withdrawn and the patient tolerated the procedure well. PROVOCATIVE CHALLENGE TEST: The patient was asked to perform high ventilatory output tasks. During these there was evidence of paradoxical motion of the vocal folds. The scope was withdrawn and the patient tolerated the procedure well. I reviewed the video with Amie Braxton. Sharlene Means, PhD, CCC-CRYOLITE RECOVERY OPERATOR documented in this encounterKettering [facility]01-28-2025 [facility]-28[facility] Instructions* Patient Instructions* Daniel Guerrero DO - 08/07/2024 11:58 AM EST Thank you for arriving to your appointment today! Below is a brief summary of our appointment. You were seen for: abdominal swelling Medication changes: no changes today What you can do at home: Trial topical therapy towards musculoskeletal rib pain Other recommendations: Follow up for no / minimal improvement in 2-4 weeks. documented in this encounterKettering [facility]01-28-2025 [facility]01-28[facility] History of Present illness Narrative* Daniel Guerrero DO - 08/07/2024 11:16 AM EST Images from the original note were not included. [facility] [address] [place], [place] [address] [place] [address] Dept: [phone] Dept Visit Date: August 07, 2024 Name: Amie Braxton Date of : 1995 MRN/E #: [id number] Chief Complaint: Amei Braxton is a 28 year old female here for Patient presents with: Mass Subjective On Tuesday, it felt like there was pressure, like balloon in left abd. Doesn't usually feel this way. Persisted through Tuesday. Assumed that it was digestion / gut related. It didn't hurt and no bruising. It has improved some. Uncomfortable to sleep on that side and has been favoring. Tuesday night it kept her up. Denies falls, injuries, trauma. On Tuesday her BM was off for her, but didn't improve her symptoms. She ate Food. She has eaten at the restaurant several times without issue.Typically she will have emesis with food disagreement. Boyfrienava Nicole presents with patient. Ask about refferal to Dr. Yuan Schafer. No improvement with electrolytes, compression socks, and bisoprolol. ROS per HPI Social History Tobacco Use Smoking status: Never Smokeless tobacco: Never Vaping Use Vaping status: Never Used Substance Use Topics Alcohol use: Never Drug use: Never ALLERGIES Allergen Reactions Beef Containing Pro* Intolerance migraines Migraines, upset stomach Beef Derived (Bovin* Hives Beta-Blockers (Beta* Contraindication-Medical Surgical Patient carries Epipen for pineapple allergy. Egg Derived GI Upset Vomiting even with ingredient of egg Milk Containing Pro* Intolerance, Hives Vomiting. Pineapple Hives, Swelling Hives, difficulty breathing Soy GI Upset vomiting Tree Nuts Other: See Comments Asthma flaring, difficulty breathing Vancomycin Analogues Hives Current Outpatient Medications Medication Sig amitriptyline (ELAVIL) 25 mg tablet Take 1 tablet by mouth daily at bedtime. medroxyPROGESTERone (PROVERA) 10 mg tablet Take 1 tablet by mouth once daily. Take for 10 days every 1-2 months fluticasone-salmeterol (ADVAIR DISKUS) 500-50 mcg/dose dsdv Inhale 1 Puff as instructed two times aday. Rinse and gargle mouth with water after each use. bisoprolol (ZEBETA) 5 mg tablet Take 1 tablet by mouth once daily. azelastine 0.1% nasal spray Use 1-2 Sprays in each nostril two times a day as needed. albuterol HFA (PROVENTIL HFA, VENTOLIN HFA) 90 mcg/actuation inhaler INHALE 1 TO 2 PUFFS EVERY 4 TO6 HOURS NEEDED FOR WHEEZE FOR UP TO 30 DAYS EPINEPHrine (EPIPEN) 0.3 mg/0.3 mL auto-injector Inject 0.3 mg intramuscularly as needed. nitroglycerin sublingual (NITROQUICK) 0.3 mg SL tablet Dissolve 1 tablet under the tongue one time only for 1 dose. To be administered in Radiology for CTA exam (Patient taking differently: Dissolve under the tongue one time only. Patient has on hand at home and will take as directed.) topiramate (TOPAMAX) 25 mg tablet Take by mouth. One pill daily for a week; then one pill twice daily for a week; then one pill three times daily for a week; then two pills twice daily thereafter. (Patient not taking: Reported on 08/07/2024) budesonide-formoterol (SYMBICORT) 160-4.5 mcg/actuation inhaler Inhale 2 Puffs as instructed two times a day. (Patient not taking: Reported on 08/07/2024) Current Facility-Administered Medications Medication Dose Route Frequency cyanocobalamin 1,000 mcg injection 1,000 mcg INTRAMUSCULAR q 1 MONTH In terms of Health Maintenance, we discussed: HPV Vaccine(1 - 3-dose series) Never done Depression Screening Never done Pneumococcal Vaccine(1 of 2 - PCV) Never done Influenza Vaccine(1) due on 03/11/2024 Covid-19 Vaccine(2023- season) Never done Please see social determinants section of patients chart for updated social history. Previous office notes, Lab,imaging, and microbiology results reviewed. I have confirmed and edited as necessary the chief complaint, medications, past medical, family andsocial histories. Objective BP 128/80 (BP Site: Left Arm, BP Position: Sitting) Pulse 90 Temp 36.9 C (98.5 F) (Temporal) Resp 16 Ht 5' (1.524 m) Wt 110 lb 3.2 oz (50 kg) LMP 04/10/2024 (Approximate) BMI 21.52 kg/m Last 3 Encounter BP Readings: Date: BP: 07/26/2024 108/72 07/23/2024 96/66 07/18/2024 109/75 Body mass index is 21.52 kg/m . Physical Exam Vitals reviewed. Constitutional: General: She is not in acute distress. Appearance: Normal appearance. She is not ill-appearing. HENT: Head: Normocephalic. Right Ear: External ear normal. Left Ear: External ear normal. Nose: Nose normal. Mouth/Throat: Mouth: Mucous membranes are moist. Pharynx: Oropharynx is clear. Eyes: Conjunctiva/sclera: Conjunctivae normal. Cardiovascular: Rate and Rhythm: Normal rate. Pulses: Normal pulses. Heart sounds: No murmur heard. No friction rub. No gallop. Pulmonary: Effort: Pulmonary effort is normal. Abdominal: General: Bowel sounds are normal. There is distension (subtle left costal margin visibility on gross inspection compared to right). Palpations: Abdomen is soft. There is no mass. Tenderness: There is abdominal tenderness (Overlying superior left abdominal muscles, left costal cartilage, and ribs 7-9 on the left, anteriorly). There is no right CVA tenderness, left CVA tenderness, guarding or rebound. Hernia: No hernia is present. Musculoskeletal: General: Normal range of motion. Cervical back: Normal range of motion. No rigidity. Right lower leg: No edema. Left lower leg: No edema. Skin: General: Skin is warm. Capillary Refill: Capillary refill takes less than 2 seconds. Findings: No bruising or lesion. Neurological: Mental Status: She is alert and oriented to person, place, and time. Motor: No weakness. Coordination: Coordination normal. Gait: Gait normal. Psychiatric: Mood and Affect: Mood normal. Behavior: Behavior normal. Thought Content: Thought content normal. Judgment: Judgment normal. Plan and Recommendations: ASSESSMENT/PLAN: 1. Left upper quadrant abdominal pain - ICD9: 789.02, ICD10: R10.12 (primary diagnosis) Differential Diagnosis includes GERD, IBS, and costal wall inflammation, myositis - Follow up in 4 weeks or sooner if worsening of symptoms - Trial OTC topical menthol muscle creams, anti-inflammatories, and monitor for dietary pattern to complaint. 2. Gastroesophageal reflux disease with esophagitis without hemorrhage - ICD9: 530.81, 530.10, ICD10: K21.00 Chronic problem - uncontrolled - her abd pain does have a location around the xiphoid that could point to GERD. She has previously undergone EGD without etiology. She has previously been on H2 lela and PPI with minimal improvement. Will see how she responds to TCA treatment. 3. Palpitations - ICD9: 785.1, ICD10: R00.2 Chronic problem - uncontrolled - still noting episodes of heart racing and pre- syncope. She notes compliance with compression stalkings, BB, and nutrition supplementation. Today she is inquiring about referral to POTs specialist at [facility]. Will touch base with her local EP cardiology team, first. 4. Fatigue, unspecified type - ICD9: 780.79, ICD10: R53.83 Chronic problem - improving - recently underwent acupuncture last week with improvement in energy. Looking forward to following up again. Has noted improvement with B12 injections. 5. Anxiety - ICD9: 300.00, ICD10: F41.9 Chronic problem - stable - she notes that she is overall feeling overwhelmed with the lack of answers or changes to her subjective state despite the multitude of testing and therapeutic trials. Encouraged her to reach out with concerns for persistent low mood or thoughts of self-harm, and for monitoring of mood while on TCA. Daniel Guerrero DO Discussed the above with the patient using shared decision-making. The patient is in agreement with the diagnostic and treatment plans. Return in about 4 weeks (around 09/04/2024), or For f/u on Abd pain. I spent a total of 25 minutes on the date of the service which included preparing to see the patient, [id number] patient care, completing clinical documentation, obtaining and/or reviewing separately obtained history, performing a medically appropriate examination, counseling and educating the pat ient/family/caregiver, ordering medications, tests, or procedures, communicating with other HCPs (not separately reported), independently interpreting results (not separately reported), communicatingresults to the patient/family/caregiver, and care coordination (not separately reported). Provider: Daniel Guerrero DO documented in this encounterK[facility]25 NoteHNO ID: [id number] Author: AYAKA BEAN LPN Service: ? Author Type: LICENSED NURSE Type: Progress Notes Filed: 08/07/2024 10:00 Note Text: Pt in today for Vit B12 injection. T 97.9. Admin to RD; pt tolerated well.[facility]01-28-[facility]25 History of Present illness Narrative* Ayaka Bean LPN - 08/07/2024 9:53 AM EST Pt in today for Vit B12 injection. T 97.9. Admin to RD; pt tolerated well. documented in this encounterK[facility]-27-2025 History of Present illness Narrative* Laxmi Camargo, PT - 08/06/2024 12:55 PM EST Program_ID:[id number] Access Code: [email or web address] URL: [email or web address] Date: 08-06-2024 Prepared By: Laxmi Camargo Program Notes Exercises - Supine Bridge - 1 x daily - x weekly - 1 sets - 10 reps - Supine Active Straight Leg Raise - 1 x daily - x weekly - 1 sets - 10 reps - Beginner Head Nod - 1 x daily - x weekly - 1 sets - 10 reps - Seated Cervical Sidebending Stretch - 1 x daily - x weekly - 1 sets - reps * Laxmi Camargo, PT - 08/06/2024 11:50 AM EST Episode Visit Count: 1 Therapist That Will Accept/Oversee The Plan Of Care: Laxmi Camargo Start of Care Date: 08/06/24 Onset Date: 07/11/24 (near the end 2019- chronic dizziness) Patient Identified by Name and Date of : Yes [facility]ER[facility]Y PHYSICAL THERAPY EVALUATION PLAN OF CARE: Assessment: Amie Braxton presents with chief complaint of dizziness described as a moving sensation that interferes with physical activities, recreational activities, walking, heavy exertion, bending, working . The patient presents with impairments in balance, independence in exercise, overall function, posture, and symptom management. PROMIS (Patient-Reported Outcomes Measurement Information System) scores were reviewed and identified as a rehabilitation concern. Prognosis for therapy is Gooddue to: current objective clinical presentation . Patient symptoms of dizziness and imbalance are likely multifactorial in nature with contribution of POTS, cervicogenic, and long Covid diagnosis. Patient reports fatigue after exercises this session but not so severe that she needs to sleep. Patient particularly sensitive over the suboccipital muscles with manual therapy. Cervical distraction increased dizziness momentarily with increased visual symptoms relieved with release of pressure. Patient home exercise program initiated with core strengthening and OA nods to address symptoms. The patient will benefit from skilled therapy services to meet the goals established for this plan of care as noted below. Goals for Episode of Care: established 08/06/24 Patient will be able to correct postural deviations independently in order to allow for normal mechanics, to decrease current pain and prevent future recurrence. Patient will be able to decrease pain to <3/10 at rest and with functional activities. Patient will perform Romberg stance on compliant surface for 30 seconds without LOB. (TBA) Patient will demonstrate normal active cervical spine range of motion to restore posture and complete ADLS with trace report of dizziness/imbalance. Patient will be independent with home exercise program and progression. Patient will return to prior level of function with all activities of daily living with trace reports of dizziness. Patient will be able to walk household and community distances with safe, functional gait pattern with trace report of dizziness/imbalance. Patient will demonstrate the ability to complete VOR in static and dynamic positions with trace report of dizziness. Patient Goals: to have more stability Time Frame for Goals and Treatment : 10/01/24 Planned Interventions, Frequency, and Duration: Current Frequency: 1x/week Duration: 8 weeks Total Number of Visits Planned: 8 Planned Treatment Interventions: Therapeutic exercise (75334), Neuromuscular re- education (56449), Manual therapy (88095), Therapeutic activities (02507), Gait Training (69232), General Conditioning,Canalith Repositioning Maneuvers (02472) PLAN FOR NEXT VISIT: mCTSIB, progress cervical Patient demonstrates good understanding of plan of care and treatment. The above goals and plan of care were discussed and agreed upon by patient/family. SUBJECTIVE: Reports that she has been through therapy but it wasn't consistent. The goal is to be consistent this time. The biggest neuro thing is brain fog, moments of spacey feelings, lack of attention. Sometimes she feels like everything is moving fast around her and she is still. Other times she feels likeshe is moving but everything else is still. She has a moving sensation constantly throughout the day. Level 3 all the time but it can get worse (up to a 10 sometimes). Shortly after the dizziness started, it was worsened by Covid then the headaches and migraines began. Patient Goals: to have more stability Functional Limitations: physical activities, recreational activities, walking, heavy exertion, bending, working Prior Level of Function: Independent without limitations Intake Information: Prescription present Previous Treatment: Physical Therapy Falls Interview: No positive findings with falls interview Vestibular Symptoms present for: years Symptom onset: gradual Dizziness: Yes Description: spinning (self) Rating of current symptoms: 4/10 Frequency: Constant Symptoms worsened by: rolling right, rolling left, lying down, supine to sit, looking up, watching moving objects, computer work, busy environments, bending, turning head quickly, pivot turns, elevators, shopping, walking, driving, walking on unstable surfaces, walking in the dark, exercise, reaching, sitting, standing, when still, when on the move, as the day progresses Symptoms improved by: lying down (watching a tv show; soimetimes scrolling can make it worse if sheis scrolling) Imbalance: Yes Imbalance triggered by: Elevator, Shopping, Walking, Driving, Unstable surface, Bending, Walking [place]ark Fall Assessment: No falls Nausea: no Motion Sickness: Current, As a child Headache: Yes Description: (nerve shocks throughout her body (around her head)) Rating of current symptoms: 0/10 Location: frontal region, occipital region Neck Symptoms: Yes Description: aching, soreness (tender) Rating of current symptoms: 5/10 Location: posterior neck Jaw Symptoms: Yes Description: aching Rating of current symptoms: 0/10 Location: bilateral Frequency: Intermittent Symptoms worsened by: eating (tougher foods) Symptoms improved by: massage Ear Symptoms: No Hearing Changes: left ear only Hearing Changes Description: fels like she hears lower sounds int he left ear and she can hear higher pitched sounds on the right side Tinnitus: both ears equally (started in april) Tinnitus Description: ringing Sleeping Position: Side lying right > left Sleep Affected by Symptoms: Dizziness keeps from falling asleep History of Syncope: No History of Migraine: Yes Pain: Pain Pain Level: 0 Post Treatment Pain Post Treatment Pain Level: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 to the patient/family/caregiver. documented in this encounterK[facility]01-16-2025 NoteOhiohealth [facility]-13-[facility] Instructions* Patient Instructions* Cynthia Morocho APRN.CNP - 07/23/2024 3:06 PM EST CONGESTION: -Saline nasal spray as needed before using medication nasal sprays -Astelin (azelastine) 2 sprays to each nostril twice daily -Try Nasacort (triamcinolone) or Nasonex (mometasone) 2 sprays to each nostril once daily HIVES: -Start Zyrtec (cetirizine) 10 mg twice daily, may increase to 2 tabs twice daily -Consider starting Pepcid (famotidine) 20 mg twice daily -Benadryl 25 mg as needed at night for itching/hives ASTHMA: -Switch from Symbicort to Advair Diskus 500 mcg 1 puff twice daily -Continue Xopenex 2 puffs every 4 hours as needed -Keep appointment in August with speech for possible vocal cord dysfunction -Follow up in 4-6 weeks for hives follow up documented in this encounterK[facility]-13-[facility]25 [facility]01-13[facility] History of Present illness Narrative* Fely Garcia, MARCO.COMPUTER OPERATIONS MANAGER - 07/23/2024 2:14 PM EST [facility] Chief Complaint: 3 month follow up allergies and asthma Historian: patient HPI Ms. Braxton is a 28 year old female with a history of asthma, allergic rhinitis, ILO in clinic for 3month follow up. Patient was last seen by me on 04/25/2024: Assessment and Recommendations (K90.49) Food intolerance (primary encounter diagnosis) History not consistent with IgE-mediated food allergy. Previous skin testing to multiple food were negative. We discussed food allergy testing in her case would not be helpful. - Recommend keeping a food diary to help identify foods that cause her symptoms - May avoid culprit foods (J38.7) Inducible laryngeal obstruction (ILO) (R05.3) Chronic cough (R49.0) Dysphonia (J45.40) Moderate persistent asthma without complication (J30.1) Seasonal allergic rhinitis due to pollen (J30.89) Allergic rhinitis due to dust mite (J30.81) Allergic rhinitis due to animal hair and dander (J30.89) Allergic rhinitis due to mold (R09.A2) Globus sensation Patient has inspiratory dyspnea and chronic cough that are refractory to ICS/LABA and FRANCISCA use, globus sensation, and periods of dysphonia. She has uncontrolled rhinitis symptoms and has a possible diagnosis of GERD. History is consistent with ILO. - Trial Astelin (azelastine) 1-2 sprays each nostril twice daily as needed - EGD as scheduled on 04/27/24 - CONSULT TO SPEECH THERAPY; Future - Symbicort as prescribed - albuterol 2 puffs every 4 hours as needed - Continue follow-up with pulmonology - Follow-up in 3-4 months or sooner if needed Interval history Patient has been following pulmonary. In March, Symbicort was increased to 160 mcg. She feels this is helping somewhat, but has increased in asthma symptoms when around her boyfriend's cats. Other trigger is pollen. She did not tolerate Singulair due to mood change. She uses xopenex rarely. Sheonly uses this when she absolutely needs it as it increases her heart rate. She has a history of POTS. ACT 15. Patient saw speech for swallow study and cognitive linguistic evaluation (emmanuel SALCIDO), but not VCD. She has an appointment to see speech therapy for VCD next month. She currently has congestion and some yellow nasal drainage since June. She doesn't feel sick otherwise, afebrile. Minimal improvement in congestion with Astelin 2 sprays to each nostril. Used Flonase in the past, but this stopped working for her. She takes Zyrtec 10 mg as needed for allergy symptoms, which are worse in Spring-Fall (Fall is worst season for allergy symptoms). Uses Benadryl 25 mg when allergy symptoms are really bad. She c/o itchy, red, raised welts to back of shoulders, arms several times a week. Individual welt goes away within 24 hours without residual bruising/discoloration of skin. Uses Eucalyptus Head and Shoulders, lukewarm shower, cold compress/ice, Aveeno oatmeal bath and/or Aveeno anti-itch cream, which helps some. Benadryl 25 mg helps, but makes her drowsy. Triggers: Hot temperatures and scratching. Records were reviewed and summarized as follows: 03/10/23 Pineapple: shortness of breath Tree nuts: shortness of breath (also avoiding peanuts) Egg, dairy, soy: vomiting Beef: migraines Sensitized to cat, dog, dust mites, mold, trees, grass, weeds, and ragweed Skin testing negative to multiple foods (animal, legume, tree nut, shellfish, fish, fruit) PAST MEDICAL HISTORY Diagnosis Date Asthma Generalized anxiety disorder Seasonal allergies PAST SURGICAL HISTORY Procedure Laterality Date TONSILLECTOMY & ADENOIDECTOMY <AGE 14 FAMILY HISTORY Problem Relation Age of Onset No Known Problems Mother No Known Problems Father No Known Problems Sister Skin Cancer Maternal Grandmother Diabetes Paternal Grandmother Social History Tobacco Use Smoking status: Never Smokeless tobacco: Never Vaping Use Vaping status: Never Used Substance Use Topics Alcohol use: Never Drug use: Never Social History Tobacco Use Smoking status: Never Smokeless tobacco: Never Current Outpatient Medications Medication Sig traZODone (DESYREL) 50 mg tablet Take 1 tablet by mouth daily at bedtime. Take a 1/2 tablet by mouth daily at bedtime. pantoprazole DR (PROTONIX) 40 mg tablet Take 1 tablet by mouth once daily. 30 minutes before a meal nitroglycerin sublingual (NITROQUICK) 0.3 mg SL tablet Dissolve 1 tablet under the tongue one time only for 1 dose. To be administered in Radiology for CTA exam (Patient taking differently: Dissolve under the tongue one time only. Patient has on hand at home and will take as directed.) bisoprolol (ZEBETA) 5 mg tablet Take 1 tablet by mouth once daily. azelastine 0.1% nasal spray Use 1-2 Sprays in each nostril two times a day as needed. topiramate (TOPAMAX) 25 mg tablet Take by mouth. One pill daily for a week; then one pill twice daily for a week; then one pill three times daily for a week; then two pills twice daily thereafter. budesonide-formoterol (SYMBICORT) 160-4.5 mcg/actuation inhaler Inhale 2 Puffs as instructed two times a day. albuterol HFA (PROVENTIL HFA, VENTOLIN HFA) 90 mcg/actuation inhaler INHALE 1 TO 2 PUFFS EVERY 4 TO6 HOURS NEEDED FOR WHEEZE FOR UP TO 30 DAYS EPINEPHrine (EPIPEN) 0.3 mg/0.3 mL auto-injector Inject 0.3 mg intramuscularly as needed. Current Facility-Administered Medications Medication Dose Route Frequency cyanocobalamin 1,000 mcg injection 1,000 mcg INTRAMUSCULAR q 1 MONTH ALLERGIES Allergen Reactions Beef Containing Pro* Intolerance migraines Migraines, upset stomach Beef Derived (Bovin* Hives Beta-Blockers (Beta* Contraindication-Medical Surgical Patient carries Epipen for pineapple allergy. Egg Derived GI Upset Vomiting even with ingredient of egg Milk Containing Pro* Intolerance, Hives Vomiting. Pineapple Hives, Swelling Hives, difficulty breathing Soy GI Upset vomiting Tree Nuts Other: See Comments Asthma flaring, difficulty breathing Vancomycin Analogues Hives Review of Systems Constitutional: Negative for chills, fatigue and fever. HENT: Positive for congestion and rhinorrhea. Negative for postnasal drip, sinus pressure, sinus pain, sneezing, sore throat and trouble swallowing. Eyes: Negative for redness and itching. Respiratory: Negative for cough, chest tightness, shortness of breath and wheezing. Cardiovascular: Negative for chest pain. Skin: Positive for rash. Neurological: Negative for headaches. Blood pressure 96/66, pulse 86, temperature 36.1 C (97 F), temperature source Temporal, resp. rate 17, height 154.9 cm (5' 1), weight 47.6 kg (105 lb), last menstrual period 03/26/2024, SpO2 98%. Body mass index is 19.84 kg/m . Physical Exam Constitutional: Appearance: Normal appearance. HENT: Right Ear: Tympanic membrane, ear canal and external ear normal. Left Ear: Tympanic membrane, ear canal and external ear normal. Nose: Congestion and rhinorrhea present. Mouth/Throat: Mouth: Mucous membranes are moist. Pharynx: Oropharynx is clear. Eyes: Pupils: Pupils are equal, round, and reactive to light. Cardiovascular: Rate and Rhythm: Normal rate and regular rhythm. Heart sounds: Normal heart sounds. Pulmonary: Breath sounds: Normal breath sounds. Skin: Findings: Erythema present. Comments: Patchy, erythema to back, hives not present at this time Neurological: Mental Status: She is alert and oriented to person, place, and time. Psychiatric: Mood and Affect: Mood normal. Behavior: Behavior normal. Thought Content: Thought content normal. Judgment: Judgment normal. Assessment and Recommendations 1. Moderate persistent asthma without complication - ICD9: 493.90, ICD10: J45.40 (primary diagnosis) Not well-controlled. Allergic triggers are cats and pollens. She is still having breakthrough symptoms despite increase in ICS/LABA inhaler in March. Will optimize medications to prevent breakthrough symptoms. -Stop Symbicort -Start Advair Diskus 500 mcg 1 puff twice daily -Xopenex 2 puffs every 4 hours as needed 2. Inducible laryngeal obstruction (ILO) - ICD9: 478.79, ICD10: J38.7 -See speech therapist as scheduled 3. Seasonal allergic rhinitis due to pollen - ICD9: 477.0, ICD10: J30.1 4. Allergic rhinitis due to mold - ICD9: 477.8, ICD10: J30.89 5. Allergic rhinitis due to animal hair and dander - ICD9: 477.2, ICD10: J30.81 6. Allergic rhinitis due to dust mite - ICD9: 477.8, ICD10: J30.89 Not well-controlled. Will optimize medication regimen. -Saline nasal spray -Astelin 2 sprays twice daily -Trial Nasacort or Nasonex 2 sprays once daily 7. Idiopathic urticaria - ICD9: 708.1, ICD10: L50.1 New onset. Discussed the idiopathic nature of chronic hives and prognosis. We talked about management strategy and that a robust daily antihistamine regimen is used to suppress symptoms. At follow up, will ask patient duration of hives and discuss non-specific triggers (NSAIDS and alcohol). -Zyrtec 10 mg twice daily. May increase to 20 mg twice daily if needed. -Benadryl 25 mg as needed at night -Consider Pepcid 20 mg twice daily if hives persistent -Follow up in 4-6 weeks, after seeing speech therapy Cynthia Morocho APRN.HORSE SHOER I spent a total of 22 minutes on the date of the service which included preparing to see the patient, [id number] patient care, completing clinical documentation, obtaining and/or reviewing separately obtained history, performing a medically appropriate examination, counseling and educating the pat ient/family/caregiver, and ordering medications, tests, or procedures. AVS provided to patient and included a recap of today's appointment and medical plan. This note was partially generated using [employer] voice recognition system, and there may be some incorrect words, spellings, and punctuation that were not noted in checking the note before saving. Fely Garcia APRN.COMPUTER OPERATIONS MANAGER Allergy & Clinical Immunology documented in this encounterK[facility]01-13-2025 Miscellaneous Notes* Addendum Note - Kimi Dinero CCC-SLP - 07/23/2024 12:27 AM ESTAddended by: KIMI DINERO on: 07/23/2024 12:27 AM Modules accepted: Orders documented in this encounterK[facility]01-13-2025 Note* Addendum Note - Kimi Dinero CCC-SLP - 07/23/2024 12:27 AM ESTAddended by: KIMI DINERO on: 07/23/2024 12:27 AM Modules accepted: Orders [facility]01-09-2025 NoteOhio[facility]01-09-2025 History of Present illness Narrative* Martha Hassan PA-C - 07/19/2024 10:19 AM EST Request from [facility] to place vestibular PT., agree it will likely be beneficial to patient . Consult placed. Would recommend patient keep appointment for ENT as well. documented in this encounterK[facility] History of Present illness Narrative* Kimi Dinero CCC-SLP - 07/19/2024 9:30 AM EST Episode Visit Count: 1 Therapist That Will Accept/Oversee The Plan Of Care: Kimi Dinero Start of Care Date: 07/19/24 Onset Date: 07/09/24 Plan of Care Certification Date: 07/19/24 Next Certification Due Date: 10/17/24 Patient Identified by Name and Date of : Yes REHABILITATION AND SPORTS THERAPY COGNITIVE LINGUISTIC EVALUATION PLAN OF CARE: Impression: Communication deficits identified: Cognitive-Linguistic deficits RECOMMENDATION: CRYOLITE RECOVERY OPERATOR Recommendations: Outpatient Speech Therapy Results and Recommendations Discussed With: Patient Prognosis: Good Good: current objective clinical presentation Goals for Episode of Care: created on 07/23/2024 through 10/17/24 EXPRESSIVE LANGUAGE GOALS State synonyms/antonyms with 90 % effectiveness given minimal cues. Demonstrate the use of taught strategies for effective communication during conversations 95% of the time with minimal cues. All goals to target the patient's overall ability to facilitate functional communication of ADL medical / social needs. COGNITIVE GOALS Improve categorical naming tasks at a concrete and abstract level with 90% accuracygiven minimal assist. Improve immediate and short term/prospective memory to 90% accuracy with use of compensatory strategies with minimal assist/cues. Improve working memory to WFL during complex cognitive tasks with 90% using compensatory strategiesin order to recall the steps taken during a cognitive process. Improve selective and alternating attention per auditory/visual cognitive tasks to 90% accuracy in order to demonstrate improved ability to focus attention and divide and alternate attention between multiple tasks within the clinical environment. All goals to target the patient's overall ability to facilitate functional cognitive linguistic skills. Planned Interventions, Frequency, and Duration: Planned Treatment Interventions: Cognitive-Linguistic Training (08624, [id number], [id number]), Patient / Caregiver Education/ Training, Cognitive Skills Development (98741, 52654), Expressive Language Training (13292, 97342) Current Frequency: 1x/week Duration: 12 weeks PLAN FOR NEXT VISIT: Review RBANS, cognitive overload strateiges, mental fatigue management, memorytasks/strategies, attention tasks/strategies, expressive language tasks/strategies Patient demonstrates good understanding of plan of care and treatment. The above goals and plan of care were discussed and agreed upon by patient/family. SUBJECTIVE: Amie Braxton is a 28 year old female seen today for a diagnostic. Past Relevant Medical Conditions: (POTS, GERD, hx SIRS, anxiety, Dizziness, distal esophageal spasm) Amie arrives to session unaccompanied. She reports having Covid 2019 and 2021, hx PTOS. +fatigue (sleep on and off, usual getting decent nights sleep however not waking up rested), + headaches, + sensitivity to light and noise, +persistant dizziness. Concentration, brain fog, slurred speech, meshwords together, word retrieval. Feels more distorted after eating. Most symptoms present since 2019, some have gotten worse, got worse after Covid 2021, had long Covid.. Patient Goals: Improve current symptoms (discussed in subjective) Prior Functional Level: Required Assistance (Lives alone) OBJECTIVE MEASURES WITH LEVEL OF FUNCTION: Hearing Deficits: (left ear < right ear) Vision Deficits: Wears glasses (Both contacts and glasses) Portions of the following standardized testing were utilized in the evaluation of the patient: RBANS . Current Status Current Level Of Communication: Verbal Repeatable Battery for the Assessment of Neuropyschological Status-Form A This assessment has a mean of 100, standard deviation 15 Qualitative Description of Index Scores 130+ Very Superior 120-129 Superior 110-119 High Average 90-109 Average 80-89 Low Average 70-79 Borderline </69 Extremely Low Index Scores Percentile SD & Comments Total Scale 75 5% Borderline Immediate Memory 85 16% Low Average List Learning 10/10 unassociated words over 4 learning trials Story Memory 10/12 pieces information over 2 learning trials Visuospatial/Constructional 100 50% Average Figure Copy 20/20 Line Orientation 18/20 51-75% Language 57 0.2% Extremely Low Picture Naming 810 3-9% Semantic Fluency 13 words produced in 60 seconds Attention 60 0.6% Extremely Low Digit Span 5 digits forward Coding 38 items completed w/ 3 errors and 0 omissions Delayed Memory 97 42% Average List Recall 01/17 26-50% List Recognition 51-75% Story Recall 03/22 Figure Recall Speech/Voice/Language Speech Production: Within Functional Limits Voice Assessment: No Vocal Quality: Clear Expressive and Receptive Language: Within Functional Limits Except Verbal Expression Deficits: Confrontational Naming, Divergent Naming Confrontational Naming - (%): 80 Confrontational Naming Cues Provided: Without Cues Divergent Naming - (%): (Named 13 concrete items given 1 minute) Divergent Naming Cues Provided: Without Cues Language Impairments Observed: Pauses/Hesitations, Anomia COGNITIVE-LINGUISTIC SKILLS Cognition Cognitive Status: Within Functional Limits For Current Session Except Cognitive Deficits: Attention Deficit, Executive Function Deficit, Memory Deficits Attention Deficit: Alternating, Selective Memory Deficits: Immediate, Short Term Immediate Memory Comments: Recalled 6/10 unrelated words, 10/10 following 4 trials; 5/12 itesms from paragraph, 10/12 given repetition x 1. Short Term Memory Comments: Following 20 minute delay, recalled 7/10 words, 9/12 items from paragraph. Figure recall . Executive Function Deficits: Divergent Naming Divergent Naming Comments : Named 13 concrete items given 1 minute. Education: Education Learning Preferences: Demonstration, Explanation, Printed Materials Barriers: None Learning/Educational Needs: Compensatory Strategies, Language Skills, Cognitive Skills Education Provided: Yes, see treatment interventions for education provided Education Provided To: Patient Education Mode/Type: Literature/Printed Materials, Explanation/Discussion (Memory strategies, cognitive overload, mental fatigue) Response to Education/Teach Back: States/Identifies TREATMENT: Evaluation: Eval Sound Production with Language Expression and Hoist Worker ([id number]) Speech/Language Therapy (70206): Skilled Intervention: Educated and instructed patient on memory recall strategies such as focused attention, active repetition, visualization, association, and external aids. Billing: Eval Sound Production with Language Expression and Hoist Worker ([id number]) and Speech Treatment ([id number]) Total time / Length of visit: 60 minutes Session Start Time : 0940 Session Stop Time : 1040 Kimi Dinero CCC-CRYOLITE RECOVERY OPERATOR documented in this encounterK[facility] NoteOhio[facility] Instructions* Patient Instructions* Aliza Boyd MD - 07/18/2024 2:36 PM EST Polycystic Ovary Syndrome (PCOS) is a prevalent condition affecting about 1 in every 10 women. It is characterized by various symptoms such as irregular menstrual periods, acne, excessive facial hairgrowth, hair loss from the head, and fertility challenges. While PCOS can occur in individuals of any weight, most affected people are overweight or obese. The underlying cause of PCOS is the abnormal functioning of the ovaries, which produce excess testosterone, a hormone typically associated with males but present in both genders. In a healthy menstrual cycle, ovaries develop a single large structure known as a follicle, which releases an egg duringovulation. However, in PCOS, multiple small follicles develop instead of one dominant one, disrupting hormone balance and leading to irregular ovulation or its absence altogether. Symptoms of PCOS are variable include infrequent and irregular periods, hirsutism (excessive hair growth on the face and body), acne, hair loss, fertility difficulties, and potential weight gain. It's crucial to consult a healthcare professional even with mild symptoms, as PCOS can raise the risk of various health issues like diabetes, high cholesterol, sleep apnea, depression, anxiety, and eating disorders. Diagnosis involves blood tests to measure hormone levels, blood sugar, and cholesterol. A pelvic ultrasound may be conducted to examine the ovaries and assess if they are polycystic. Treatment for PCOS primarily includes control pills to manage symptoms like irregular periods, acne, and excess hair. Other treatment options comprise anti-androgen medications to counteract specific symptoms, progestin to regulate periods, metformin to aid in regularizing periods, and skin treatments for acne and hair removal. Individuals can take steps to manage PCOS on their own, particularly if they are overweight or obese. Even losing a modest amount of weight, around 5 percent of one's body weight, can significantly alleviate symptoms. Maintaining a healthy lifestyle with balanced nutrition and regular exercise can be beneficial. For those looking to conceive, weight loss can enhance the chances of regular periods and improved fertility. Medications to stimulate ovulation may be prescribed if irregular periods persist despiteweight loss. Living with PCOS is manageable with appropriate medical care. Treating symptoms not only improves quality of life but also reduces the risk of associated health complications. It's crucial to addressmental health concerns, sexual problems, and eating disorders with healthcare providers, as there are interventions available to address these issues alongside PCOS management. Please review [facility] library website for more information documented in this encounterK[facility]-2025 [facility]01-08-2025 History of Present illness Narrative* Aliza Boyd MD - 07/18/2024 2:08 PM EST PCP: Daniel Guerrero DO. Subjective The history is provided by the patient. Amie Braxton is a 28 year old White female with PMHx of POTS, anxiety, and fibromyalgia who presented to the endocrine clinic for PCOS evaluation and management History of present illness Initial History: (07/18/24) The patient reports irregular menses since menarche at the age of 15, with approximately two light cycles per year. Her last menstrual period was about four months ago. She has no history of previouspregnancies and has tried oral contraceptives multiple times but was intolerant to them. Current symptoms include fatigue, brain fog, headaches, and pelvic floor dysfunction. She has excess hair on her upper limbs and upper abdomen, though facial hair, which she plucks daily, is not bothersome. Sheexperiences intermittent acne but has no progressive hair loss or nipple discharge. The patient hasa family history of PCOS, including her sister and cousins, but no family history of adrenal disorde rs. Review of Systems Constitutional: Positive for malaise/fatigue. Respiratory: Positive for cough and shortness of breath. Cardiovascular: Positive for chest pain. Gastrointestinal: Positive for constipation. Musculoskeletal: Positive for joint pain and neck pain. Neurological: Positive for dizziness, tingling and headaches. Psychiatric/Behavioral: Positive for depression. The patient is nervous/anxious. HISTORY REVIEWED (electronic chart updated): PAST MEDICAL HISTORY Diagnosis Date Asthma Generalized anxiety disorder Seasonal allergies PAST SURGICAL HISTORY Procedure Laterality Date TONSILLECTOMY & ADENOIDECTOMY <AGE 14 FAMILY HISTORY Problem Relation Age of Onset No Known Problems Mother No Known Problems Father No Known Problems Sister Skin Cancer Maternal Grandmother Diabetes Paternal Grandmother Social History Tobacco Use Smoking status: Never Smokeless tobacco: Never Vaping Use Vaping status: Never Used Substance Use Topics Alcohol use: Never Drug use: Never Current Outpatient Medications Medication Sig Dispense Refill traZODone (DESYREL) 50 mg tablet Take 1 tablet by mouth daily at bedtime. Take a 1/2 tablet by mouth daily at bedtime. 30 tablet 2 bisoprolol (ZEBETA) 5 mg tablet Take 1 tablet by mouth once daily. 30 tablet 5 azelastine 0.1% nasal spray Use 1-2 Sprays in each nostril two times a day as needed. 30 mL 11 topiramate (TOPAMAX) 25 mg tablet Take by mouth. One pill daily for a week; then one pill twice daily for a week; then one pill three times daily for a week; then two pills twice daily thereafter. 120 tablet 11 budesonide-formoterol (SYMBICORT) 160-4.5 mcg/actuation inhaler Inhale 2 Puffs as instructed two times a day. 10.2 g 5 albuterol HFA (PROVENTIL HFA, VENTOLIN HFA) 90 mcg/actuation inhaler INHALE 1 TO 2 PUFFS EVERY 4 TO6 HOURS NEEDED FOR WHEEZE FOR UP TO 30 DAYS EPINEPHrine (EPIPEN) 0.3 mg/0.3 mL auto-injector Inject 0.3 mg intramuscularly as needed. pantoprazole DR (PROTONIX) 40 mg tablet Take 1 tablet by mouth once daily. 30 minutes before a meal(Patient not taking: Reported on 07/13/2024) 30 tablet 2 nitroglycerin sublingual (NITROQUICK) 0.3 mg SL tablet Dissolve 1 tablet under the tongue one time only for 1 dose. To be administered in Radiology for CTA exam (Patient taking differently: Dissolve under the tongue one time only. Patient has on hand at home and will take as directed.) 1 tablet 0 Current Facility-Administered Medications Medication Dose Route Frequency Provider Last Rate Last Admin cyanocobalamin 1,000 mcg injection 1,000 mcg INTRAMUSCULAR q 1 MONTH Daniel Guerrero, DO 1,000 mcg at 07/06/24 0814 Objective BP 109/75 Pulse 80 Ht 5' 1 (1.55m) Wt 106 lb 6.4 oz (48.3kg) LMP 03/26/2024 BMI 20.11 kg/(m^2). Physical examination Physical Exam Vitals and nursing note reviewed. Constitutional: General: She is not in acute distress. Neck: Thyroid: No thyromegaly. Cardiovascular: Rate and Rhythm: Normal rate and regular rhythm. Heart sounds: S1 normal and S2 normal. No murmur heard. Pulmonary: Effort: Pulmonary effort is normal. No respiratory distress. Breath sounds: Normal breath sounds. Musculoskeletal: Right lower leg: No edema. Left lower leg: No edema. Neurological: General: No focal deficit present. Mental Status: She is alert. Cranial Nerves: No cranial nerve deficit. Labs and imaging data: Reviewed Latest Ref Rng 08/26/2023 Testosterone Free <0.13 - 1.06 ng/dL 2.39 (H) Testosterone 8 - 60 ng/dL 95 (H) LH See comment mIU/mL 20.8 DHEA-S 98.8 - 340.0 ug/dL 367.4 (H) FSH See comment mIU/mL 6.8 Prolactin 4.8 - 23.3 ng/mL 17.1 Estradiol 17B See comment pg/mL 46 Pelvic ultrasound on 07/21/2022 1. Right ovary appears slightly enlarged. No focal mass. There are several small follicles of both ovaries which are nonspecific. The overall pattern and multiplicity is not characteristic for PCOS. RESULT: Uterus size: 7.2 x 3.6 x 2.7 cm -Orientation: Anteverted -Myometrium: Normal sonographic appearance. -Endometrial echo complex: 0.42 cm normal in appearance -Cervix: normal Right ovary: 6.1 x 2.8 x 2.8 cm Appears mildly enlarged. There are several small follicles. Arterial and venous flow is present throughout the ovary on color Doppler imaging with normal spectral waveforms. Left ovary: 4.8 x 2.1 x 2.6 cm There are several small follicles. Arterial and venous flow is present throughout the left ovary on color Doppler imaging with normal spectral waveforms. Pelvis free fluid: Previous medical records: Reviewed Assessment & Plan Assessment: Encounter Diagnosis ICD-10-CM 1. PCOS (polycystic ovarian syndrome) E28.2 HEMOGLOBIN A1C COMPREHENSIVE METABOLIC PANEL HYDROXYPROGESTERONE-17 2. Primary oligomenorrhea N91.3 3. 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 Obtain a 17- hydroxyprogesterone test to rule out congenital adrenal hyperplasia Discussed the pathophysiology and manifestations of PCOS, emphasizing the risk of endometrial hyperplasia associated with oligomenorrhea, which appears to be the primary concern. Explained that PCOS is often associated with mood, depression anxiety disorders, follow-up with psychology/psychiatry Since the patient was intolerant to multiple oral contraceptives, alternative options include: Metformin: If there is evidence of insulin resistance. Progesterone-only pills or IUD: To manage oligomenorrhea. Advised to follow-up with gynecology The patient does not find hirsutism bothersome, and antiandrogen therapy is not necessary at this time. Spironolactone use was discussed but is less favorable due to the patient s POTS. Monitor for metabolic dysfunction and any changes in clinical symptoms. I discussed the plan of care with the patient in details including different treatment options and side effects of medications prescribed in this visit. Complications of untreated or uncontrolled disease were also discussed. Patient expressed understanding and agreement. Return in about 6 months (around 01/15/2025). Aliza Boyd MD [facility] Endocrinology [address], [address] [place] [address] This note was partially generated using [employer] voice recognition system, and there may be some incorrect words, spellings, and punctuation that were not intended as it appear in the note. documented in this encounterK[facility]01-04-2025 History of Present illness Narrative* Joann Braxton, PhD - 07/14/2024 2:00 PM EST [facility] Psychology Progress Note Billing codes: 0M9/[facility] PSYCHOLOGY: FOLLOW-UP APPOINTMENT PROGRESS NOTE- Virtual Visit I have communicated my name and active licensure. The patient's identity and physical location wereverified at the time of this visit. Either the patient or their legal collections representative has been informed of the risks and benefits of -- and alternatives to -- treatment through a remote evaluation andconsents to proceed with the evaluation remotely. Amie Braxton 07/14/2024 [id number] PROVIDER: Joann Braxton, PhD Service: Psychotherapy, 45 minutes with patient and/or family- Virtual Visit Diagnosis: Psychological and behavioral factors associated with disorders or diseases classified elsewhere (primary encounter diagnosis) persistent postural perceptual vertigo Time spent doing therapy with patient: 2:10-3:00 pm Parties Present: Patient Interventions: Cognitive Behavioral MENTAL STATUS: Mood: mildly dysthymic Affect: mood-congruent Thoughts/Associations: organized Suicidal/Homicidal Ideation: None expressed or evidenced MEDICATIONS: Per medical record: Current Outpatient Medications Medication Sig traZODone (DESYREL) 50 mg tablet Take 1 tablet by mouth daily at bedtime. Take a 1/2 tablet by mouth daily at bedtime. pantoprazole DR (PROTONIX) 40 mg tablet Take 1 tablet by mouth once daily. 30 minutes before a meal(Patient not taking: Reported on 07/13/2024) nitroglycerin sublingual (NITROQUICK) 0.3 mg SL tablet Dissolve 1 tablet under the tongue one time only for 1 dose. To be administered in Radiology for CTA exam (Patient taking differently: Dissolve under the tongue one time only. Patient has on hand at home and will take as directed.) bisoprolol (ZEBETA) 5 mg tablet Take 1 tablet by mouth once daily. azelastine 0.1% nasal spray Use 1-2 Sprays in each nostril two times a day as needed. topiramate (TOPAMAX) 25 mg tablet Take by mouth. One pill daily for a week; then one pill twice daily for a week; then one pill three times daily for a week; then two pills twice daily thereafter. budesonide-formoterol (SYMBICORT) 160-4.5 mcg/actuation inhaler Inhale 2 Puffs as instructed two times a day. albuterol HFA (PROVENTIL HFA, VENTOLIN HFA) 90 mcg/actuation inhaler INHALE 1 TO 2 PUFFS EVERY 4 TO6 HOURS NEEDED FOR WHEEZE FOR UP TO 30 DAYS EPINEPHrine (EPIPEN) 0.3 mg/0.3 mL auto-injector Inject 0.3 mg intramuscularly as needed. Current Facility-Administered Medications Medication Dose Route Frequency cyanocobalamin 1,000 mcg injection 1,000 mcg INTRAMUSCULAR q 1 MONTH Psychiatric Medication Issues: No change from previous appointment PROGRESS TO DATE/ASSESSMENT: Ms. Braxton presents with established diagnoses of psych and behavioral factors associated with PPPD. Today patient reports she saw a waste picker yesterday, who suspects possible fibromyalgia due to diffuse pain (chest and joint pain, especially). She will be seeing a wellness health coach next week to explore holistic options for care. Dizziness has been worse the past few days- she believes this is due to deconditioning and lack of activity. Session time was spent discussing the mind-body connection with regards to stress, neurological symptoms and emotional reactivity. She was encouraged to start practicing body check-ins twice daily (morning and evening, ~30-60 sec) as a way to improved mindful attention and minimize dissociation tendencies with physical symptoms. TREATMENT PLAN/GOALS/OBJECTIVES: Homework: Body check-ins twice daily Next: Cognitive Restructuring Making new thoughts become habits Expand present -moment awareness Follow Up: 2 weeks Joann Braxton, Ph.D. Staff, [facility] documented in this encounterK[facility]01-04-2025 NoteOhio[facility]01-03-[facility] History of Present illness Narrative* Jodi Aranda RT(R) - 07/13/2024 9:45 AM EST Radiology Service Progress Note PATIENT NAME: Amie Braxton DATE OF SERVICE: July 13, 2024 TIME: 9:57 AM PATIENT IDENTITY VERIFICATION COMPLETED USING TWO (2) IDENTIFIERS: Name and Date of confirmedby patient verbally and Name and Date of confirmed by identification band. FALL SCREENING: Has the patient had 2 falls in the last year or 1 fall with injury or currently using an Ambulatory Assistive Device (Walker, Cane, Wheelchair, Crutches, etc.)? No PATIENT GENDER DATA: Female. status: : No status: NO. PATIENT RELEVANT IMPLANT DATA REVIEWED: Not Applicable PATIENT PRESENTS WITH AN IMPLANTABLE OR ATTACHED POLICE SERGEANT PRECINCT: No RADIOLOGY DEPARTMENT: General X-ray: Exam(s) Completed: Spine X-Ray(s): Cervical AP / LAT and Lumbar AP / LAT / L5-S1 Pelvis X-Ray: sacroiliac joints Upper Extremity X-Ray(s): Hand, bilateral PERIPHERAL IV DATA: Not applicable SIGNED BY: RT Yolanda(R) July 13, 2024 9:57 AM documented in this encounterK[facility]tering [facility]01-03-2025 [facility]01-03-2025 [facility]01-03-2025 History of Present illness Narrative* Nieves Smith MD - 07/13/2024 8:54 AM EST RHEUMATOLOGY NEW PATIENT NOTE REFERRING PHYSICIAN: Self CHIEF COMPLAINT: Patient presents with: Joint Pain New Patient HPI: Amie Braxton is a 28 year old female who presents with joint pain Chest pain, neck pain. Chronic since she was 19 years old. Burning sensation in whole body. Tenderness. Tried massages. Saw chiropractor. Numbness in left arm. Has spikes with increased symptoms. Paresthesia in her limbs random. Saw neuro. Work up is ongoing. Low back and hip pain worse at the end of the day. Some swelling in her hands. Covid twice 2019, 2021. Long haul covid 2020, (no vaccines) POTS 2022. She has seen cardiology, GI.Denies hypermobility. 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 Family history of autoimmune disease: arthritis Histamine issues in mother side Smoking status: Tobacco Use: Never Rheumatology REVIEW OF SYSTEMS: Constitutional: Recent Weight Change: No Fatigue: YES Fever: No Night sweats: No Heent: Alopecia: YES H/o Inflammatory eye disease (iritis/scleritis): No Hearing loss: No Frequent sinusitis: No Oral ulcers: No Sicca: YES Parotid swelling: No Hoarseness: No Dysphagia: No Heme/lymph: Lymphadenopathy: No Hematological abnormalities (anemia, thrombocytopenia, leukopenia): No Abnormal bleeding: No Skin: Malar or discoid lesions: No Photosensitivity: No Other rashes: No Raynaud's phenomenon: No Hives: YES Tightness: No Nodules/bumps: No Easy Bruising: No Nail changes: No H/o psoriasis: No Gastroenterology: Nausea: YES with dizziness Vomiting: No Change in bowel movements: No Heartburn: No Respiratory: Dry cough/SOB: No Cardiovascular: Pain in chest: No Musculoskeletal: Per HPI Genitourinary: Vaginal dryness: No Rash/ulcers: No Neurological: Headaches: YES Sensitivity or pain of hands and/or feet: No Psychiatry: Anxiety: YES chronic Depression: YES chronic trying new med Poor sleep: YES chronic on trazodone now H/o loss: No H/o thrombosis: No Increased susceptibility to infection: No PAST MEDICAL HISTORY Diagnosis Date Asthma Generalized anxiety disorder Seasonal allergies PAST SURGICAL HISTORY Procedure Laterality Date TONSILLECTOMY & ADENOIDECTOMY <AGE 14 Current Outpatient Medications Medication Sig traZODone (DESYREL) 50 mg tablet Take 1 tablet by mouth daily at bedtime. Take a 1/2 tablet by mouth daily at bedtime. nitroglycerin sublingual (NITROQUICK) 0.3 mg SL tablet Dissolve 1 tablet under the tongue one time only for 1 dose. To be administered in Radiology for CTA exam (Patient taking differently: Dissolve under the tongue one time only. Patient has on hand at home and will take as directed.) bisoprolol (ZEBETA) 5 mg tablet Take 1 tablet by mouth once daily. azelastine 0.1% nasal spray Use 1-2 Sprays in each nostril two times a day as needed. topiramate (TOPAMAX) 25 mg tablet Take by mouth. One pill daily for a week; then one pill twice daily for a week; then one pill three times daily for a week; then two pills twice daily thereafter. budesonide-formoterol (SYMBICORT) 160-4.5 mcg/actuation inhaler Inhale 2 Puffs as instructed two times a day. albuterol HFA (PROVENTIL HFA, VENTOLIN HFA) 90 mcg/actuation inhaler INHALE 1 TO 2 PUFFS EVERY 4 TO6 HOURS NEEDED FOR WHEEZE FOR UP TO 30 DAYS EPINEPHrine (EPIPEN) 0.3 mg/0.3 mL auto-injector Inject 0.3 mg intramuscularly as needed. pantoprazole DR (PROTONIX) 40 mg tablet Take 1 tablet by mouth once daily. 30 minutes before a meal(Patient not taking: Reported on 07/13/2024) Current Facility-Administered Medications Medication Dose Route Frequency cyanocobalamin 1,000 mcg injection 1,000 mcg INTRAMUSCULAR q 1 MONTH ALLERGIES Allergen Reactions Beef Containing Pro* Intolerance migraines Migraines, upset stomach Beef Derived (Bovin* Hives Beta-Blockers (Beta* Contraindication-Medical Surgical Patient carries Epipen for pineapple allergy. Egg Derived GI Upset Vomiting even with ingredient of egg Milk Containing Pro* Intolerance, Hives Vomiting. Pineapple Hives, Swelling Hives, difficulty breathing Soy GI Upset vomiting Tree Nuts Other: See Comments Asthma flaring, difficulty breathing Vancomycin Analogues Hives FAMILY HISTORY Problem Relation Age of Onset No Known Problems Mother No Known Problems Father No Known Problems Sister Skin Cancer Maternal Grandmother Diabetes Paternal Grandmother Social History Tobacco Use Smoking status: Never Smokeless tobacco: Never Vaping Use Vaping status: Never Used Substance Use Topics Alcohol use: Never Drug use: Never Occupation: Employer And Job Title: None on file Years Of Education Completed: Not specified Marital Status: Single History Review: I have reviewed and modified as needed, the following during this visit: Allergies,Past Medical History, Past Surgical History, Past Family History, Past Social History. BP 96/55 Pulse 86 Temp 36.2 C (97.1 F) (Temporal) Resp 12 Ht 156.3 cm (5' 1.54) Wt 48.5 kg (106 lb 13 oz) LMP 03/26/2024 (Approximate) BMI 19.83 kg/m Physical Exam GENERAL: Well appearing, alert, comfortable, in no acute distress, well- hydrated, well nourished. HEENT: Negative for external ears normal. Canals are clear. Both TMs visualized and are normal. EyeExam normal. External nose normal, no nasal ulcer or throat ulcer. NECK: NECK Supple, no adenopathy; thyroid symmetric, normal size, no bruits CARDIAC: regular rate and rhythm, No murmur asculated., and Equal peripheral pulses RESPIRATORY: Lungs clear to auscultation. No wheezing, rhonchi, rales VASCULAR: RRR without murmur, gallop, or rubs. No ectopy. ABDOMEN: Soft, non tender. BS active. No masses or organomegaly. LYMPHATIC: Negative for adenopathy in the neck, axillae, groin, supraclavicular and auricular. NEURO: Motor and sensory exam normal MOTOR: Normal; including tone, gait, stressed gait, power and coordination. SKIN: Negative for alopecia, skin rash, malar rash, skin lesion, skin ulcer, pits, thickening, color changes, telangiectasias, nail changes, nail ridging, nail pitting, onycholysis MUSCULOSKELETAL: DIPS: Normal PIPS: Normal MCPs: Normal Wrists: Normal Elbows: Normal Shoulders: Normal C-Spine: Normal Hips: Normal Knees: Normal Ankles: Normal MTPs / Toes: Normal Arches: Normal Tenderness over bl SCM Summary of old labs/radiology: Review/request of outside labs and imaging: Pertinent labs: Glucose 74 07/09/2024 ALT 47 07/09/2024 WBC 5.27 07/09/2024 Hemoglobin 16.2 07/09/2024 Platelet Count 306 07/09/2024 CRP 0.6 07/09/2024 Serology: KARMA negative Pertinent imaging: Assessment and Plan (M25.50) Pain in joint, multiple sites (primary encounter diagnosis) (R53.81, R53.83) Malaise and fatigue 28-year-old female is here for evaluation management patient. Patient reports chronic pain which has been worse over the last few years. She had COVID twice and was diagnosed with long-haul symptoms and POTS. Sleep she also reports seeing several specialist including cardiology and GI. Also gettingworkup from neurology at present. Reports paresthesia, myalgia, arthralgia and fatigue. KARMA was negative. No signs of synovitis on exam. Evaluation below labs and x-rays. Fibromyalgia is another possibility. Discussed that it is a diagnosis of exclusion. They are also concerned about other neurological conditions like pinched nerve inthe neck, multiple sclerosis. I advised to continue follow-up with neurology for further evaluation. Office Visit on 07/13/24 XR CERV GENERAL 2V AP/LAT XR LUMBAR GENERAL 3V AP/LAT/L5-S1 XR SACROILIAC JOINTS 2V AP PELVIS/FERGUESON XR HAND GENERAL 3V PA/LAT/OBL LEFT XR HAND GENERAL 3V PA/LAT/OBL RIGHT RHEUMATOID FACTOR CCP ANTIBODY IGG SJOGREN ABS SSA/SSB CONVEYOR TECHNICIAN ANTIBODY BLOOD CREATINE KINASE/CK URINALYSIS WITH MICROSCOPIC, REFLEX CULTURE No orders of the defined types were placed in this encounter. No follow-ups on file. Nieves Smith MD I spent a total of 40 minutes on the date of the service which included preparing to see the patient, [id number] patient care, completing clinical documentation, obtaining and/or reviewing separately obtained history, performing a medically appropriate examination, counseling and educating the pat ient/family/caregiver, independently interpreting results (not separately reported), and communicating results to the patient/family/caregiver. documented in this [facility] Instructions* Patient Instructions* Martha Hassan PA-C - 07/09/2024 2:51 PM EST Welcome [facility]! The 'COV' represents SARS-CoV-2, also known as COVID-19. Our clinic's mission is to assess and guide individuals who are experiencing long-term effects of COVID-19 to state of the art care paths tailored to fit each person. You just had your initial visit with the [facility] clinic! Next, you will be undergoing additional tests to further assess your current symptoms. Once you have these tests completed, you will have another visit to review these results. We will then direct you down the appropriate care path with a specialist for further treatment based on those results and your current symptoms. We would like to continue to monitor your health over the next 12 months following your visit to the [facility] Recovery Department. You will receive an invitation in your [employer] account asking you to complete questionnaires at 3, 6. 9 and 12 months after your visit to the department. The questionnaires will be similar to those you completed prior to your visit asking about fatigue, mental function, sleep disturbance, depression, anxiety and your quality of life. - The [facility] Team You may have your labs as walk-in appointments at a [facility] facility. We will schedule you for our virtual follow up today before you leave. If you need to reach us the best way is to call [phone] and ask for [facility]. A consult to Headache clinic was placed. Please Call [phone] to schedule. A consult to Speech Therapy, was placed. Please Call [phone] to schedule. A consult to Integrative Medicine was placed, someone will be in touch to schedule your appointment. You may also schedule an appointment by calling [phone]. A consult to ENT was placed, someone will be in touch to schedule your appointment. If you do not hear from them within the next 1-2 weeks, please call [phone] to schedule an appointment with [facility]. documented in this encounterK[facility]12-30-[facility]24 History of Present illness Narrative* Martha Hassan PA-C - 07/09/2024 2:00 PM EST Images from the original note were not included. COVID [facility] Initial Evaluation Amie Braxton presents to [facility] at the request of Daniel Guerrero DO for evaluation ofprolonged, > 28 days, symptoms attributed to COVID-19 infection. They have requested this consultation via eConsult and will be communicated to via the EMR or [place] Post Office Correspondence. Positive COVID-19 Test: yes Date of Positive Test: 04/2020; 11/2021 HPI: Amie Braxton is a 28 year old female with primary symptoms as listed below: Description of their course of COVID-19 illness. 1. Symptoms began on 04/2020 2. Hospitalization? No 3. Was the patient on oxygen? No 4. Was patient discharged on oxygen? No 5. Was there an ICU stay? No 6. Was the patient intubated? No 7. Were there any COVID-19 medications given? No 8. Were there significant complications from the patients COVID-19 Illness? No 9. Has the patient received the COVID Vaccine? NO COVID-19 Symptom Review Most significant symptoms: Asthma: present prior to COVID and now worse. SOB occurs both at rest and with exertion. Walking, stairs, carrying heavy objects. occasional wheezing. persistent cough. never smoker. Follows with pulmonology, has symbicort and albuterol. Not using albuterol as it give her really bad palpitations. POTS symptoms?/ Dizziness chest pain/ palpitation: constant Dizziness, feels like she is on a boat,goes in and out, sometimes so bad she is unable to function normally. Driving or riding in a car makes her dizzy. Tachycardia and palpitations occurs at random. Chest pain normally feels like a chesttightness or heaviness, or squeezing, thi is always there, but it can get worse to where she feels like someone kicked her in the chest or like there is internal bruising. Cardiology recommended betablocker, she is taking this as needed. Tilt table testing positive for POTS. Headaches: Headaches occur daily. Pain is located either in the front and forehead or in the occipital region. Pain varies in nature, can be stabbing, stinging, pressure. both light and noise sensitivity. Saw neurology, started on topamax, reports no improvement with this. Food intolerance: Intolerance to red meat, dairy, eggs, peanut, pineapple, soy, tree nuts. Eating these will either make her vomit or give her hives. follows with GI, and allergy got EGD done , and was consulted to speech therapy. Also started on astelin. Reports she will also get hives at random at times. Brain fog: Difficulty remembering conversations. Difficulty with name and word recall. Difficulty focusing. Task take longer to complete 2/2 distraction and forgetting what she was doing. Having to re-read items multiple times. Difficulty following a story/TV shows plot. Difficulty with thought processing. Some safety concerns, such as forgetting to lock door. Reports she is not driving by choiceas she feels very spacy when driving. Bladder issues: present prior to COVID, started in highschool, did get worse after COVID. Nerve pain: Started about 4 months ago. Stinging and burning in nature. It gets hots Gets a straight ling that goes down her body points to her head and draws a line down to her arms, and legs. Feelslike brain zaps. Feels like it moves around the body. Recent/previously completed testing: (I have personally reviewed the findings on all imaging, PFTs, and labs) EKG: Recent Results (from the past 8760 hour(s)) ECG COMPLETE Collection Time: 05/26/24 4:11 PM Result Value Ventricular Rate 98 Atrial Rate 98 P-R Interval 118 QRS Duration 86 QT Interval 348 QTC Calculation (Bazett) 444 Calculated P [place] 76 Calculated R [place] 61 Calculated T [place] -35 Impression NORMAL SINUS RHYTHM WITH SINUS ARRHYTHMIA POSSIBLE LEFT ATRIAL ENLARGEMENT ST and T WAVE ABNORMALITY, CONSIDER INFEROLATERAL ISCHEMIA ABNORMAL ECG 1616 Confirmed by DANIEL RAMOS DO ([id number]), editorial specialist BRISEYDA FARMER ([id number]) on 05/27/2024 9:34:33 AM ECHO: No results found for this or any previous visit (from the past 33437 hour(s)). PFT: SPIROMETRY WITH DILATOR IF OBSTRUCTED ([id number]) - ordered on 06/22/24 No textual results for order. CXR: Last XR Chest - Impression Only XR CHEST 1V FRONTAL Exam End: 05/21/2024 7:37 PM (Final result) Impression: IMPRESSION: No acute radiographic abnormality. ... CT CHEST: Last CT Chest - Impression Only CTA CHEST (GATED) WO/W IVCON Exam End: 05/26/2024 7:16 PM (Final result) Impression: IMPRESSION: 1. No acute aortic pathology identified. 2. No acute process in the chest, abdomen, pelvis. Mental Health Aide: MARIA INES Transcribe Date/Time: May 26 2024 9:26P... LABS: Established with the following specialists: Pulmonology Neurology- headaches and brain fog. Cards- POTs GI allergy Review of Systems Constitutional: Negative for activity change, fatigue and fever. Respiratory: Positive for chest tightness, shortness of breath and wheezing. Negative for cough. Cardiovascular: Positive for chest pain and palpitations. Negative for leg swelling. Gastrointestinal: Negative for abdominal pain, diarrhea, nausea and vomiting. Musculoskeletal: Negative for arthralgias and myalgias. Neurological: Positive for dizziness and headaches. Negative for syncope and light-headedness. Psychiatric/Behavioral: Positive for confusion and decreased concentration. Negative for agitation,dysphoric mood and sleep disturbance. The patient is not nervous/anxious. PAST MEDICAL HISTORY Diagnosis Date Asthma Generalized anxiety disorder Seasonal allergies Medication Review: Current Outpatient Medications on File Prior to Visit Medication Sig DULoxetine (CYMBALTA) 30 mg capsule Take 1 capsule by mouth once daily. pantoprazole DR (PROTONIX) 40 mg tablet Take 1 tablet by mouth once daily. 30 minutes before a meal nitroglycerin sublingual (NITROQUICK) 0.3 mg SL tablet Dissolve 1 tablet under the tongue one time only for 1 dose. To be administered in Radiology for CTA exam bisoprolol (ZEBETA) 5 mg tablet Take 1 tablet by mouth once daily. azelastine 0.1% nasal spray Use 1-2 Sprays in each nostril two times a day as needed. topiramate (TOPAMAX) 25 mg tablet Take by mouth. One pill daily for a week; then one pill twice daily for a week; then one pill three times daily for a week; then two pills twice daily thereafter. budesonide-formoterol (SYMBICORT) 160-4.5 mcg/actuation inhaler Inhale 2 Puffs as instructed two times a day. albuterol HFA (PROVENTIL HFA, VENTOLIN HFA) 90 mcg/actuation inhaler INHALE 1 TO 2 PUFFS EVERY 4 TO6 HOURS NEEDED FOR WHEEZE FOR UP TO 30 DAYS EPINEPHrine (EPIPEN) 0.3 mg/0.3 mL auto-injector Inject 0.3 mg intramuscularly as needed. Current Facility-Administered Medications on File Prior to Visit Medication cyanocobalamin 1,000 mcg injection Objective Findings: Vitals: BP 102/65 (BP Site: Right Arm, BP Position: Sitting, BP Cuff Size: Regular Adult) Pulse 86 Ht 156.8 cm (5' 1.73) Wt 47.9 kg (105 lb 9.6 oz) LMP 03/26/2024 (Approximate) BMI 19.48 kg/m Initial Screening Questionaires review: Patient Entered Questionnaires PROMIS/NeuroQoL Score Percentiles 06/19/2024 10/12/2021 PROMIS Global Health Scale Physical Health Percentile 1 4 Mental Health Percentile 2 3 Percentiles provide an indication of how a patient s score ranks in relation to the [place] general population. > 31st percentile is within normal limits or better * < 31st percentile is at least SD worse than population, which may be clinically relevant < 16th percentile is at least 1 SD worse than population and warrants attention 06/19/2024 02/16/2024 02/10/2023 PHQ-9 PHQ-2 Score 5 5 1 PHQ-9 Score 17 20 06/19/2024 02/16/2024 TERA - 2/7 SCORES TERA-2 Score 5 6 TERA-7 Score 18 21 Physical Examination: Physical Exam Vitals and nursing note reviewed. Constitutional: General: She is not in acute distress. Appearance: Normal appearance. She is not ill-appearing, toxic-appearing or diaphoretic. HENT: Head: Normocephalic and atraumatic. Right Ear: External ear normal. Left Ear: External ear normal. Eyes: Extraocular Movements: Extraocular movements intact. Conjunctiva/sclera: Conjunctivae normal. Pupils: Pupils are equal, round, and reactive to light. Cardiovascular: Rate and Rhythm: Normal rate. Rhythm irregularly irregular. Pulses: Normal pulses. Heart sounds: Normal heart sounds. Pulmonary: Effort: Pulmonary effort is normal. No respiratory distress. Breath sounds: Normal breath sounds. No stridor. No decreased breath sounds, wheezing, rhonchi or rales. Chest: Chest wall: No tenderness. Musculoskeletal: Cervical back: Normal range of motion and neck supple. Right lower leg: No edema. Left lower leg: No edema. Lymphadenopathy: Cervical: No cervical adenopathy. Skin: Capillary Refill: Capillary refill takes less than 2 seconds. Coloration: Skin is not jaundiced or pale. Findings: No bruising or rash. Neurological: Mental Status: She is alert and oriented to person, place, and time. Cranial Nerves: No cranial nerve deficit. Sensory: No sensory deficit. Motor: No weakness, tremor or abnormal muscle tone. Coordination: Coordination normal. Hbpvzi-Tdby-Arkkdw Test normal. Gait: Gait and tandem walk normal. Deep Tendon Reflexes: Reflexes normal. Reflex Scores: Patellar reflexes are 2+ on the right side and 2+ on the left side. Psychiatric: Mood and Affect: Mood normal. Behavior: Behavior normal. Thought Content: Thought content normal. Judgment: Judgment normal. Assessment and Plan: 1. Shortness of breath - ICD9: 786.05, ICD10: R06.02 (primary diagnosis) 2. Moderate persistent asthma without complication - ICD9: 493.90, ICD10: J45.40 3. POTS (postural orthostatic tachycardia syndrome) - ICD9: 427.89, ICD10: G90.A 4. Dizziness - ICD9: 780.4, ICD10: R42 5. Palpitations - ICD9: 785.1, ICD10: R00.2 6. Tachycardia - ICD9: 785.0, ICD10: R00.0 7. Chest pain, unspecified type - ICD9: 786.50, ICD10: R07.9 8. Headaches - ICD9: 784.0, ICD10: R51.9 9. Food intolerance - ICD9: 579.8, ICD10: K90.49 10. Brain fog - ICD9: 799.59, ICD10: R41.89 11. Memory change - ICD9: 780.93, ICD10: R41.3 12. Nerve pain - ICD9: 729.2, ICD10: M79.2 13. Post-acute sequelae of COVID-19 (PASC) - ICD9: 139.8, ICD10: U09.9 -The patient and I reviewed the below testing in detail. We discussed indications for testing and the benefits of results in directing the plan of care. - Will await test results and have a follow up visit to review and discuss further appropriate carepaths. - Instructions to schedule and any phone numbers needed for consults placed today are provided in the AVS. - The patient was informed of how [facility] functions. We are a referral service. They will have this initial visit as well as one follow up virtual visit in which all testing, imaging, and labswill be discussed. From there on it is expected that they continue to follow up with their PCP and the specialist established through this program. We do not manage symptoms or follow patients half-way. -[facility] is not able to assist with disability requests, including work restrictions or clearances. This is because we act more as a consult/referral hub, do not do active treatment and management of long-COVID symptoms, and are not actively involved in long-term care after our 2 visits. Your primary care provider and the consulted specialists we discussed during our visit(s) are better suited for assisting with disability requests. Those providers can use our office note and testing to help support their plans of care. - would recommend potentially increasing to triple therapy if appropriate for her asthma/ and or switching from albuterol to evaluate due to palpitations. - COMPLETE BLOOD COUNT AND DIFFERENTIAL - COMPREHENSIVE METABOLIC PANEL - THYROID STIMULATING HORMONE - VITAMIN B12 - FOLATE, SERUM - VITAMIN D 25 HYDROXY - TRACE ELEMENTS/TPN - C-REACTIVE PROTEIN - FERRITIN - OMEGACHECK - BACH SCREENING TEST Consults initiated today: - CONSULT TO NEUROLOGY - CONSULT TO ENT - CONSULT TO WELLNESS PHYSICIAN - CONSULT TO SPEECH THERAPY Return for Virtual f/u with me, review results in 4-6 weeks. I spent a total of 60 minutes on the date of the service which included preparing to see the patient, [id number] patient care, completing clinical documentation, obtaining and/or reviewing separately obtained history, performing a medically appropriate examination, counseling and educating the pat ient/family/caregiver, ordering medications, tests, or procedures, communicating results to the patient/family/caregiver, and care coordination (not separately reported). Martha Hassan PA-C July 09, 2024 3:07 PM documented in this [facility]12-30-[facility]24 [facility] Instructions* Patient Instructions* Samra Rose APRN.CNP - 07/09/2024 8:37 AM EST I will reach out to Dr. Guerrero regarding adding trazodone to your medications to assist with chestpain. Once I hear back from him I will send you a [employer] message. I would recommend diaphragmatic breathing using the technique from [facility]. You can find info at: [email or web address]-[email or web address]-[email or web address] ents documented in this encounterK[facility]12-30-2024 [facility]12[facility]30[facility] History of Present illness Narrative* Samra Rose APRN.CNP - 07/09/2024 8:16 AM EST New Patient/Consult REASON FOR VISIT Amie Braxton is a 28 year old female who is scheduled for esophageal spasms at the consult requestof Makenzie Lynn. My final recommendations will be communicated back to the requesting physician by the way of the shared medical record, fax, or via [place] Mail. PRESENTING COMPLAINT & HISTORY Ms. Braxton is a 28 year old female with a past medical history of but not limited to systemic inflammatory response syndrome, asthma, anxiety, POTS and allergies. Presenting today with a a family member with the following chief complaint: Esophageal manometry reveals esophageal spasms. Esophageal spasms started about a year and a half ago, but getting progressively worse over the past five months. Describes spasms as a frequent chest pain, sometimes just a dull pain other times more intense pain. -regurgitates food a lot, regurgitates within an hour of eating. Regurgitation occurs daily, started while in middle school. -chest pain will increase a few minutes after regurgitation -chest pain is constant, but degree varies, increases after eating or hours after eating -antireflux medication for a month, did not notice any improvement in symptoms -bloating depends on what she eats -no nausea prior to regurgitation -has been on cymbalta for a week, taking every other day, low dose, has developed night sweats and heart palpitations. Taking it for depression, has tried several SSRIs in the past and developed sideeffects. Does patient have achalasia? No GI EVALUATION Reviewed Esophageal manometry 06/13/24 Impressions Distal esophageal spasm, spastic segment is 10 cm above the LES EGD 04/27/24 Impression: - Z-line regular, 35 cm from the incisors. - Normal esophagus. - Normal stomach. Biopsied. - Normal examined duodenum. Biopsied. - Biopsies were taken with a cold forceps for evaluation of eosinophilic esophagitis. DULoxetine (CYMBALTA) 30 mg capsule^Take 1 capsule by mouth once daily.^Disp: 90 capsule^Rfl: [address] (PROTONIX) 40 mg tablet^Take 1 tablet by mouth once daily. 30 minutes before a meal^Disp: 30 tablet^Rfl: 2 nitroglycerin sublingual (NITROQUICK) 0.3 mg SL tablet^Dissolve 1 tablet under the tongue one time only for 1 dose. To be administered in Radiology for CTA exam^Disp: 1 tablet^Rfl: 0 bisoprolol (ZEBETA) 5 mg tablet^Take 1 tablet by mouth once daily.^Disp: 30 tablet^Rfl: 5 azelastine 0.1% nasal spray^Use 1-2 Sprays in each nostril two times a day as needed.^Disp: 30 mL^Rfl: 11 topiramate (TOPAMAX) 25 mg tablet^Take by mouth. One pill daily for a week; then one pill twice daily for a week; then one pill three times daily for a week; then two pills twice daily thereafter.^Disp: 120 tablet^Rfl: 11 budesonide-formoterol (SYMBICORT) 160-4.5 mcg/actuation inhaler^Inhale 2 Puffs as instructed two times a day.^Disp: 10.2 g^Rfl: 5 albuterol HFA (PROVENTIL HFA, VENTOLIN HFA) 90 mcg/actuation inhaler^INHALE 1 TO 2 PUFFS EVERY 4 TO6 HOURS NEEDED FOR WHEEZE FOR UP TO 30 DAYS^Disp: ^Rfl: EPINEPHrine (EPIPEN) 0.3 mg/0.3 mL auto-injector^Inject 0.3 mg intramuscularly as needed.^Disp: ^Rfl: Beef Containing Products, Beef Derived (Bovine), Beta-Blockers (Beta-Adrenergic Blocking Agts), EggDerived, Milk Containing Products (Dairy), Pineapple, Soy, Tree Nuts, and Vancomycin Analogues FAMILY HISTORY Colon Cancer: No Other Cancers: Yes FAMILY HISTORY Problem Relation Age of Onset No Known Problems Mother No Known Problems Father No Known Problems Sister Skin Cancer Maternal Grandmother Diabetes Paternal Grandmother PAST MEDICAL HISTORY Diagnosis Date Asthma Generalized anxiety disorder Seasonal allergies PAST SURGICAL HISTORY Procedure Laterality Date TONSILLECTOMY & ADENOIDECTOMY <AGE 14 Social History Tobacco Use Smoking status: Never Smokeless tobacco: Never Vaping Use Vaping status: Never Used Substance Use Topics Alcohol use: Never Drug use: Never REVIEW OF SYSTEMS ROS otherwise negative except per HPI PHYSICAL EXAMINATION LMP 03/26/2024 General - Normal, healthy, cooperative, in no acute distress Able to interact well. Psych - ORIENTATION: normal to time place, person and situation Mood/Affect: AFFECT AND MOOD: Normal Head/Neuro - Normal size and shape Facial appearance normal Pulmonary - respiratory effort normal Extremities- extremities normal, warm, no cyanosis,no clubbing, and no edema Skin - abnormal lesions not visualized Motor - patient seen sitting with Normal appearing strength and coordination Assessment Impression and Plan ASSESSMENT/PLAN: 1. Esophageal spasm - ICD9: 530.5, ICD10: K22.4 Pt with esophageal spasms and regurgitation of food. Describes esophageal spasms as dull chest pain, that sometimes becomes more intense. Currently taking Cymbalta, will contact PCP to discuss possibility of adding Trazodone. Trial diaphragmatic breathing. Samra Rose APRN.CNP I spent a total of 45 minutes on the date of the service which included preparing to see the patient, [id number] patient care, completing clinical documentation, obtaining and/or reviewing separately obtained history, performing a medically appropriate examination, counseling and educating the pat ient/family/caregiver, ordering medications, tests, or procedures, communicating with other HCPs (not separately reported), independently interpreting results (not separately reported), communicatingresults to the patient/family/caregiver, and care coordination (not separately reported). Samra Rose APRN.CNP July 09, 2024 8:16 AM documented in this encounterK[facility] Telephone encounter Note * Telephone Encounter - Melva Chicas OCCA - 07/06/2024 12:52 PM EST Did the patient have confirmed or presumed COVID-19 infection after August 2019 and are continuing to have symptoms for at least 90 days Yes Date of positive test and/or presumed infection(s): 04/2020; 11/2021 Type of test (home test or PCR): [facility] With which COVID infection(s) did your long COVID symptoms begin: 04/2020 COVID vaccine type and dates (if not already on file): None We have a few questions about any ongoing symptoms to help prepare you and your provider for your visit. 2. Is the patient seeing us for taste/smell changes? No 3. Is patient traveling far (1 hour+) or coming from another state*: No 4. Please verify the following are on file in patient's chart, and enter if not found - medication list Yes Cymbalta Protonix B12 injections Azelatine/flonase Symbicort inhaler Albuterol Epinephrine - allergies Yes - preferred pharmacy Yes - PCP Yes 5. Please inform patient of the below information if they have not been sent [facility] appt reminder: [facility] functions as a referral service. You will have an initial visit as well as one follow-up visit in which all [facility] testing, imaging, and labs will be discussed. From there on it is expected that you continue to follow up with your PCP and the specialist(s) established through this program. 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 [facility] intake team is not able to assist with disability requests, including work restrictions or clearances as we do not do active treatment and management of long-COVID symptoms, and are not actively involved in long-term care after your 2 visits. Your primary care provider and the consulted specialists we discuss during our visit(s) are better suited for assisting with disabilityrequests. Those providers are welcome use our office note and testing to help support their plans of care. Patients will be expected to have labs, testing, and consults done through [facility]; we cannot fax orders to outside facilities, and do not have access to outside providers. Please be prepared that you may need to travel to [place] multiple times to get all testing done and see the consulted specialist(s). Please arrive 15 minutes early to your appointment. If you are more than 10 minutes late to your appointment you may be asked to reschedule. One week prior to your appointment you should pre-check in via [facility] to complete questionnaires that will provide valuable information to your provider to aid in your visit. You may receive a telephone call to remind you if we see they have not been completed in advance of your visit. If you have outside testing you would like to be entered into your chart, please fax it to [phone]. Records brought in same day of visit may not be reviewed until after the visit due to time constraints. *FYI Current [facility] states are [place], [place], [place], and [place] as of 01/2024. This means patients can only be seen in-person for consults AND follow-ups due to state laws. [facility] Miscellaneous Notes* Telephone Encounter - Melva Chicas OCCA - 07/06/2024 12:52 PM EST Did the patient have confirmed or presumed COVID-19 infection after August 2019 and are continuing to have symptoms for at least 90 days Yes Date of positive test and/or presumed infection(s): 04/2020; 11/2021 Type of test (home test or PCR): [facility] With which COVID infection(s) did your long COVID symptoms begin: 04/2020 COVID vaccine type and dates (if not already on file): None We have a few questions about any ongoing symptoms to help prepare you and your provider for your visit. 2. Is the patient seeing us for taste/smell changes? No 3. Is patient traveling far (1 hour+) or coming from another state*: No 4. Please verify the following are on file in patient's chart, and enter if not found - medication list Yes Cymbalta Protonix B12 injections Azelatine/flonase Symbicort inhaler Albuterol Epinephrine - allergies Yes - preferred pharmacy Yes - PCP Yes 5. Please inform patient of the below information if they have not been sent [facility] appt reminder: [facility] functions as a referral service. You will have an initial visit as well as one follow-up visit in which all [facility] clinic testing, imaging, and labs will be discussed. From there on it is expected that you continue to follow up with your PCP and the specialist(s) established through this program. We do not manage symptoms or follow patients half-way. [facility] intake team is not able to assist with disability requests, including work restrictions or clearances as we do not do active treatment and management of long-COVID symptoms, and are not actively involved in long-term care after your 2 visits. Your primary care provider and the consulted specialists we discuss during our visit(s) are better suited for assisting with disabilityrequests. Those providers are welcome use our office note and testing to help support their plans of care. Patients will be expected to have labs, testing, and consults done through [facility]; we cannot fax orders to outside facilities, and do not have access to outside providers. Please be prepared that you may need to travel to [place] multiple times to get all testing done and see the consulted specialist(s). Please arrive 15 minutes early to your appointment. If you are more than 10 minutes late to your appointment you may be asked to reschedule. One week prior to your appointment you should pre-check in via [facility] to complete questionnaires that will provide valuable information to your provider to aid in your visit. You may receive a telephone call to remind you if we see they have not been completed in advance of your visit. If you have outside testing you would like to be entered into your chart, please fax it to [phone]. Records brought in same day of visit may not be reviewed until after the visit due to time constraints. *FYI Current [facility] states are [place], [place], [place], and [place] as of 01/2024. This means patients can only be seen in-person for consults AND follow-ups due to state laws. documented in this encounterKettering [facility]12-27-2024 NoteHNO ID: [id number] Author: AYAKA BEAN LPN Service: ? Author Type: LICENSED NURSE Type: Progress Notes Filed: 07/06/2024 08:15 Note Text: Pt in today for nurse visit for B12 injection. Admin to LD; pt tolerated well. [facility]12-27-2024 History of Present illness Narrative* Ayaka Bean LPN - 07/06/2024 8:12 AM EST Pt in today for nurse visit for B12 injection. Admin to LD; pt tolerated well. documented in this encounterK[facility]12-19-2024 History of Present illness Narrative* Sailaja Morris RT(R) - 06/28/2024 8:30 AM EST Radiology Service Progress Note PATIENT NAME: Amie Braxton DATE OF SERVICE: June 28, 2024 TIME: 8:51 AM PATIENT IDENTITY VERIFICATION COMPLETED USING TWO (2) IDENTIFIERS: Name and Date of confirmedby patient verbally. FALL SCREENING: Has the patient had 2 falls in the last year or 1 fall with injury or currently using an Ambulatory Assistive Device (Walker, Cane, Wheelchair, Crutches, etc.)? No PATIENT GENDER DATA: Female. status: : No status: NO. PATIENT RELEVANT IMPLANT DATA REVIEWED: Not Applicable PATIENT PRESENTS WITH AN IMPLANTABLE OR ATTACHED POLICE SERGEANT PRECINCT: No RADIOLOGY DEPARTMENT: General X-ray: Exam(s) Completed: GI/ Procedure(s): Upper GI with small bowel with barium contrast PERIPHERAL IV DATA: Not applicable SIGNED BY: RT Sebas(R) June 28, 2024 8:51 AM documented in this encounterKettering [facility]12-19-2024 [facility]12-13-[facility]24 Instructions* Patient Instructions* Nicola Teixeira APRN.CNP - 06/22/2024 10:18 AM EST Continue Symbicort. Talk with allergy about different medication options. Dust mite covers for your bed. Wash you sheets in hot water once a week. Avoid exposure to some of your allergens as able such as dogs and cats. Change filters in furnace. documented in this encounterK[facility]12-13-2024 History of Present illness Narrative* Click, Nicola Mirza APRN.JULIAN - 06/22/2024 10:00 AM EST Images from the original note were not included. Pulmonary Medicine Patients name: Amie Braxton PCP: Daniel Guerrero DO CC: Asthma follow-up HPI: Amie Braxton is a 28 year old female never smoker with a PMH of Asthma, POTS, GERD, Anxiety, PCOS and multiple allergies (cat, dog, ragweed and dust mites), previously intolerant of Singulair. Current therapy includes Symbicort and PRN Xopenex. She presents today for Asthma follow-up. EFREN 03/23/2024 with persistent asthma symptoms. Stepped up to Symbicort 160. Also referred back to allergy. Since her last visit, she was seen by allergy but not specific to environmental allergens. Has class 4 allergy to cats, boyfriend has cats in his apartment and is around them often. Allergy symptoms improved since he had air filters installed. Also with significant dust mite allergy does not currently have dust mite cover on bed. Unsure about furnace filter being changed d/t living in an apartment. Has used OTC antihistamine without improvement in symptoms. Today, patient reports overall having somewhat better control of Asthma. Has continued cough but hasn't been as persistent as it was before. Continues to note clear/whitish sputum. No hemoptysis. Does wheeze but has decreased. Continues to have dyspnea sometimes at rest and with little exertion. Has been to the emergency room a few times related to chest pain, follows with cardiology. No fevers, chills, or night sweats. Also undergoing workup with GI r/t dysphagia. Prescribed Protonix for GERD/heartburn but holding currently for ongoing testing. No recent hospitalizations or ED visits or upper respiratory infections. ASTHMA CONTROL TEST Date: 06/22/2024 In the last 4 weeks, how much of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 Trace residue within or on the pharyngeal structures Esophageal Clearance In An Upright Position: Esophageal retention with retrograde flow below the pharyngoesophageal segment Penetration-Aspiration Scale Level 1-Material does not enter airway : Soft and Bite-Sized IDDSI Level 6, Pureed IDDSI Level 4, Mildly Thick Liquids IDDSI Level 2 ([place] Thick), Thin Liquids IDDSI Level 0 Education: Education Learning Preferences: Demonstration, Explanation, Performance Barriers: None Learning/Educational Needs: Diet Modification(s), Compensatory Strategies, Family Education/Training, Swallowing Skills, MBSs results Education Provided: Yes, see treatment interventions for education provided Education Provided To: Patient, Other: See Comment (Roshan Nicole) (more content not included)...[facility] [id number] History of Present illness Narrative* Christinane Soriano CCC-CRYOLITE RECOVERY OPERATOR - 06/18/2024 10:10 AM EST Episode Visit Count: Visit count could not be calculated. Make sure you are using a visit which is associated with an episode. Start of Care Date: 06/18/24 Onset Date: 07/11/23 Patient Identified by Name and Date of : Yes REHABILITATION AND SPORTS THERAPY MODIFIED BARIUM SWALLOW PLAN OF CARE: Impression: Evidence of: Functional oropharyngeal phases of swallow, without identified risk for aspiration, Concern for possible esophageal impairment An elevated risk for aspiration: No Swallow Efficiency: Preserved RESULTS: - esophageal retention with retrograde flow RECOMMENDATION: Diet Recommendations: Thin Liquids IDDSI Level 0, Soft and Bite-Sized IDDSI Level 6 Swallowing Precautions Recommendations: Alternate bites and sips, Anti-Reflux precautions, Feed / Eat at a slow rate, Maintain an upright position 20-30 minutes following all oral intake, Sit [id number] degrees for all PO, Small Bite/Sip, Reduced bite size CRYOLITE RECOVERY OPERATOR Recommendations: Diet, Swallowing Precautions, Discontinue Speech Therapy Recommended Consults: GI (referral source) Results and Recommendations Discussed With: Patient, Significant Other Goals for Modified Barium Swallow: created for 06/18/2024 only. The patient and Boyfriend will be able to demonstrate adequate return of knowledge of today's fluoroscopic assessment and recommendations to maximize overall safety with oral intake. (baseline = no knowledge). Goal Met SUBJECTIVE: Amie Braxton is a 28 year old female seen today for a Modified Barium Swallow (MBS) Study. - attempted 60 days reflux medication with no change in symptoms per Pt report - accompanied by Boyfriend Angelica Corey Past Relevant Medical Conditions: (POTS, globus sensation, chronic cough, GERD, food allergies) Patient Goals: eat/drink without swallowing difficulties Prior Functional Level: Within Functional Limits OBJECTIVE: MEASURES WITH LEVEL OF FUNCTION: Swallow Position Of Patient During Assessment: Upright In Chair Feeding Method: Patient Self-Fed Consistencies Presented: Thin Liquids IDDSI Level 0, Pureed Solids IDDSI Level 4, Soft and Bite-Sized Solids IDDSI Level 6 (PO trials completed per Pt's food allergies) Response to Consistencies Presented: - Pt able to follow directives for testing completion - Pt able to recall reasoning for MBS completion - Pt note food allergies and approved all PO presentations Instrumental Swallow Assessment Type: Modified Barium Swallow Study Modified Barium Swallow Views: Lateral position, Anterior-posterior position Barium Consistencies Provided: Thin Liquids IDDSI Level 0, Pureed Solids IDDSI Level 4, Soft and Bite-Sized Solids IDDSI Level 6, Mildly Thick Liquids IDDSI Level 2 ([place] Thick) Oral Phase: As Follows Lip Closure: No labial escape/anterior loss of bolus Tongue Control During Bolus Hold: Cohesive bolus between tongue to palatal seal Bolus Preparation/Mastication: Mastication not assessed Mastication Not Assessed Secondary To: only Soft Solids Bolus Transport/Lingual Motion: Brisk tongue motion for A-P movement of the bolus Oral Residue: Trace residue lining oral structures Initiation Of Pharyngeal Swallow: Bolus head at pit of pyriforms, Bolus head at vallecular pit Pharyngeal Phase: As Follows Soft Palate Elevation: No bolus between soft palate/pharyngeal wall Laryngeal Elevation: Complete superior movement of thyroid cartilage with contact of arytenoids to epiglottic petiole Anterior Hyoid Excursion: Complete anterior movement Epiglottic Movement: Complete inversion Laryngeal Vestibular Closure/Height of the Swallow: Complete - no air/contrast in laryngeal vestibule Pharyngeal Stripping Wave: Complete Pharyngeal Contraction (A/P View Only): Complete Pharyngoesophageal Segment Opening: Complete distension and complete duration/no obstruction of flow of bolus Tongue Base Retraction: Trace column of contrast or air between tongue base and pharyngeal wall Pharyngeal Residue: Trace residue within or on the pharyngeal structures Esophageal Clearance In An Upright Position: Esophageal retention with retrograde flow below the pharyngoesophageal segment Penetration-Aspiration Scale Level 1-Material does not enter airway : Soft and Bite-Sized IDDSI Level 6, Pureed IDDSI Level 4, Mildly Thick Liquids IDDSI Level 2 ([place] Thick), Thin Liquids IDDSI Level 0 Education: Education Learning Preferences: Demonstration, Explanation, Performance Barriers: None Learning/Educational Needs: Diet Modification(s), Compensatory Strategies, Family Education/Training, Swallowing Skills, MBSs results Education Provided: Yes, see treatment interventions for education provided Education Provided To: Patient, Other: See Comment (Roshan Nicole) Education Mode/Type: Demonstration, Explanation/Discussion, Performance, Teach Back, Video Response to Education/Teach Back: States/Identifies, Return Demonstration TREATMENT: Performed Modified Barium Swallowing Study (06626). Evaluation: Modified Barium Swallow Evaluation (87099) Swallow / Dysphagia (12421): Skilled Intervention: Provided education related to a typical swallowing mechanism in a compare and contrast manner compared to this patient's current skill set. , Educated and advised patient / caregiver on texture and liquid consistency recommendations., Instructed patient / caregiver on recommended compensatory strategies to maximize safety with oral intake while maintaining nutrition, hydration and medication stability. - video review & education regarding findings from today's MBSS study & suggested plans fortreatment were provided to the Patient through verbal instructions, images & demo Education regarding findings from today's Modified Barium Swallowing study (fluoroscopic study) andsuggested plans for treatment were provided to the Pt & Boyfriend through verbal / written instruction, images and/or demonstration. Pt & Tachofriend was able to demonstrate understanding of education provided this date. Billing: Modified Barium Swallow (26968) and Dysphagia Treatment (57185) Total time: 35 minutes Session Start Time : 954 Session Stop Time : 1030 Christianne Soriano CCC-CRYOLITE RECOVERY OPERATOR documented in this encounterK[facility]12-[facility] Telephone encounter Note * Telephone Encounter - Sanjana Novoa LPN - 06/15/2024 8:46 AM EST I spoke to Amie Braxton and informed them of 's response to CTA results and recommendations. Patient voiced understanding. Sanjana Novoa LPN [facility]12-06-[facility] Miscellaneous Notes* Telephone Encounter - Sanjana Novoa LPN - 06/15/2024 8:46 AM EST I spoke to Amie Braxton and informed them of 's response to CTA results and recommendations. Patient voiced understanding. Sanjana Novoa LPN * Telephone Encounter - Sanajna Novoa LPN - 06/15/2024 7:06 AM EST ----- Message from Ramses Pyle MD sent at 06/14/2024 10:56 PM EST ----- Normal coronaries, no atherosclerotic disease, normal origins. I do not think her chest pain is coronary in origin documented in this encounterK[facility]12-[facility]-2024 Telephone encounter Note * Telephone Encounter - Sanjana Novoa LPN - 06/15/2024 7:06 AM EST ----- Message from Ramses Pyle MD sent at 06/14/2024 10:56 PM EST ----- Normal coronaries, no atherosclerotic disease, normal origins. I do not think her chest pain is coronary in origin [facility]12-05-[facility]24 History of Present illness Narrative* Penny Hurley RN - 06/14/2024 8:45 AM EST Radiology Service Progress Note DATE OF SERVICE: June 14, 2024 TIME: 9:03 AM PATIENT WEIGHT: 104 LBS PATIENT IDENTITY VERIFICATION COMPLETED USING TWO (2) STANDARD IDENTIFIERS: Name and Date of confirmed by patient verbally and Name and Date of confirmed by identification band. FALL SCREENING: Has the patient had 2 falls in the last year or 1 fall with injury or currently using an Ambulatory Assistive Device (Walker, Cane, Wheelchair, Crutches, etc.)? No PATIENT GENDER DATA: Female. status: : No status: NO. ALLERGIES: Reviewed and unchanged CONTRAST ALLERGY: No EXAM: CT -CONTRAST INDUCED NEPHROPATHY RISK FACTORS: Not applicable CREATININE: Creatinine Date Value Ref Range Status 05/26/2024 0.91 0.58 - 0.96 mg/dL Final 05/21/2024 0.75 0.58 - 0.96 mg/dL Final Comment: Use of this assay is not recommended for patients undergoing treatment with phenindione, due to thepotential for falsely depressed results. 02/16/2024 0.83 0.58 - 0.96 mg/dL Final Estimated Glomerular Filtration Rate Date Value Ref Range Status 05/26/2024 89 >=60 mL/min/1.73m Final Comment: Estimated Glomerular Filtration Rate (eGFR) is calculated using the 2020 CKD-EPI creatinine equation. This equation utilizes serum creatinine, sex, and age as parameters. The creatinine assay has traceable calibration to isotope dilution- mass spectrometry. Refer to KDIGO guidelines for clinical interpretation. In patients with unstable renal function, e.g. those with acute kidney injury, the eGFRmay not accurately reflect actual GFR. eGFR- Date Value Ref Range Status 08/31/2020 >60 Final P.O.C.T. RESULTS: N/A June 14, 2024 TREATMENT: No Hydration needed. IV SITE: Ambulatory: A peripheral IV was started in the Left antecubital site with a Angio cath: 20gauge. IV SITE APPEARANCE: Clean,Dry and Intact Radiology Service Progress Note PATIENT NAME: Amie Braxton DATE OF SERVICE: June 14, 2024 TIME: 9:03 AM PATIENT IDENTITY VERIFICATION COMPLETED USING TWO (2) STANDARD IDENTIFIERS: Name and Date of confirmed by patient verbally and Name and Date of confirmed by identification band. PATIENT GENDER DATA: Female. status: : No status: NO. PATIENT RELEVANT IMPLANT DATA REVIEWED: Yes ALLERGIES: Reviewed and unchanged MEDICATIONS REVIEWED: YES PROCEDURE TYPE: CT: Beta Blocking and CT: NTG SL PATIENT SCREENING: CHF: No, Heart Block: No, Aortic Stenosis: No, Aortic Insufficiency: No, Asthmatic/Bronchospastic Disease: Yes, IV Beta Blocking (Lopressor/Metoprolol Tartrate): No, and Medications that may enhance heart rate, slowing the effect of betablockers or calcium channel blockers: Yes Aortic Stenosis: No, Aortic Insufficiency: No, Constrictive Pericarditis: No, Hypertrophic/Restrictive Cardiomyopathy: No, Use of Phosphodiesterase - 5 Inhibitors: No, and Stress test planned for later today: No IV SITE: Ambulatory: A peripheral IV was started in the Left antecubital site with a Angio cath: 20gauge. PERIPHERAL IV ACCESS: Discontinued CARDIAC MEDICATIONS: Nitroglycerin 0.3 mg SL given PATIENT DISCHARGED TO: Home/Self Care SIGNED BY: Penny Hurley RN June 14, 2024 9:03 AM PATIENT EDUCATION RADIOLOGY TOPIC: Procedure/Surgery: Coronary CTA Pre- Procedure Teaching:Logistics / Protocols / Complication Prevention Post- Procedure Teaching: Symptom Management / Wound Care READINESS TO LEARN COGNITIVE ABILITY: Alert and oriented MOTIVATION TO LEARN: Interested FAMILY SUPPORT: None - Unavailable/disinterested INSTRUCTION PROVIDED TO: Patient PATIENT LEARNS BEST BY: Individual Instruction FACTORS AFFECTING LEARNING: None PHYSICAL LIMITATIONS AFFECTING LEARNING: None LEARNING RESPONSE Procedure: Angio Procedures: Radiology Procedures: Coronary CTA METHOD OF INSTRUCTION: Individual instruction PATIENT / FAMILY RESPONSE: Verbalizes understanding of: Pre Procedure Instructions Post Procedure Instructions FOLLOW-UP PLAN: Complete - No need for follow-up REFERRAL (RECOMMENDATION): None Electronically Signed By Penny Hurley RN SIGNATURE: Penny Hurley RN PATIENT NAME: Amie Braxton DATE: June 14, 2024 TIME: 9:03 AM * Merry Schaffer RT(R) - 06/14/2024 8:45 AM EST Radiology Service Progress Note PATIENT NAME: Amie Braxton DATE OF SERVICE: June 14, 2024 TIME: 9:31 AM PATIENT IDENTITY VERIFICATION COMPLETED USING TWO (2) IDENTIFIERS: Name and Date of confirmedby patient verbally. FALL SCREENING: Has the patient had 2 falls in the last year or 1 fall with injury or currently using an Ambulatory Assistive Device (Walker, Cane, Wheelchair, Crutches, etc.)? No PATIENT GENDER DATA: Female. status: : No status: NO. PATIENT RELEVANT IMPLANT DATA REVIEWED: Yes PATIENT PRESENTS WITH AN IMPLANTABLE OR ATTACHED POLICE SERGEANT PRECINCT: No RADIOLOGY DEPARTMENT: CT; Exam(s) Completed: CTA Cardiac PERIPHERAL IV DATA: Site assessment: Clean,Dry and Intact, Site disposition Discontinued SIGNED BY: RT Ace(Ray) June 14, 2024 9:31 AM documented in this [facility] Miscellaneous Notes* Addendum Note - Penny Hurley RN - 06/14/2024 8:45 AM ESTEncounter addended by: Penny Hurley, JEFFREY on: 06/14/2024 9:43 AM Actions taken: Vitals modified documented in this encounterK[facility]12-05-2024 Note* Addendum Note - Penny Hurley RN - 06/14/2024 8:45 AM ESTEncounter addended by: Penny Hurley, RN on: 06/14/2024 9:43 AM Actions taken: Vitals modified [facility] History of Present illness Narrative* Judi Herman LPN - 06/11/2024 3:44 PM EST Name: Amie Braxton [facility]#: [id number] Date: 06/11/2024 ESOPHAGEAL MANOMETRY TEST Indication: Dysphagia Pain Assessment: No pain is present. The patient has been NPO since last evening. A local anesthetic 1.5 cc 2% Viscous Lidocaine was instilled into the left nares. The patient was intubated the left nares using a 36 sensor high resolution circumferential solid state manometry catheter The esophageal manometry test was completed. The patient tolerated the test without difficulty. .Judi Herman LPN documented in this encounterK[facility]11-29-2024 Telephone encounter Note * Telephone Encounter - Fernie Cruz APRN.CNP - 06/08/2024 12:46 PM EST Most likely not vaginitis if only symptoms are urgency and frequency. She can have a BV swab done if she wants thought. She can f/u with [employer] [employer]. Thanks [facility]-29-[facility] Miscellaneous Notes* Telephone Encounter - Fernie Cruz APRN.CNP - 06/08/2024 12:46 PM EST Most likely not vaginitis if only symptoms are urgency and frequency. She can have a BV swab done if she wants thought. She can f/u with [employer]. Thanks documented in this encounterK[facility]11-26-2024 Instructions* Patient Instructions* Makenzie Lynn APRN.CNP - 06/05/2024 4:13 PM EST Thank you for seeing me in clinic today. As we discussed, my recommendations are as follows: 1.Pantoprazole 40 mg daily 30 min before a meal 2.Metamucil daily 3. A modified barium swallow study with speech, which checks the swallowing mechanism and esophageal manometry which checks the function of the muscles in the esophagus. It measures muscle contractions of the esophagus as water moves through to the stomach. To schedule the modified barium swallow study, please call [phone]. To schedule the esophageal manometry, please call [phone], [facility] is [facility]. documented in this encounterK[facility]11-26-2024 History and physical note * Makenzie Lynn APRN.CNP - 06/05/2024 3:50 PM EST DISTANCE HEALTH VISIT This Team Access Model visit is a virtual encounter. It required patient- provider interaction for the medical decision making as documented below. REASON FOR VISIT: GERD HPI: Amie Braxton is a 28 year old female who presents for GERD. She states her symptoms have gotten worse since her EGD. She continues to have pain in her chest and epigastric discomfort. She endorses continued episodes of regurgitation of foods and chest discomfort. She did not complete the MBS of man ometry as ordered. She endorses some constipation. She averages 1 BM every other day. She uses fiber as needed. She admits to hard stool and straining at times. Past Clinical Work-Up: ALLERGIES Allergen Reactions Beef Containing Pro* Intolerance migraines Migraines, upset stomach Beef Derived (Bovin* Hives Beta-Blockers (Beta* Contraindication-Medical Surgical Patient carries Epipen for pineapple allergy. Egg Derived GI Upset Vomiting even with ingredient of egg Milk Containing Pro* Intolerance, Hives Vomiting. Pineapple Hives, Swelling Hives, difficulty breathing Soy GI Upset vomiting Tree Nuts Other: See Comments Asthma flaring, difficulty breathing Vancomycin Analogues Hives PAST MEDICAL HISTORY Diagnosis Date Asthma Generalized anxiety disorder Seasonal allergies PAST SURGICAL HISTORY Procedure Laterality Date TONSILLECTOMY & ADENOIDECTOMY FAMILY HISTORY Problem Relation Age of Onset No Known Problems Mother No Known Problems Father No Known Problems Sister Skin Cancer Maternal Grandmother Diabetes Paternal Grandmother Social History Tobacco Use Smoking status: Never Smokeless tobacco: Never Vaping Use Vaping status: Never Used Substance Use Topics Alcohol use: Never Drug use: Never Current Outpatient Medications Medication Sig nitroglycerin sublingual (NITROQUICK) 0.3 mg SL tablet Dissolve 1 tablet under the tongue one time only for 1 dose. To be administered in Radiology for CTA exam bisoprolol (ZEBETA) 5 mg tablet Take 1 tablet by mouth once daily. azelastine 0.1% nasal spray Use 1-2 Sprays in each nostril two times a day as needed. DULoxetine (CYMBALTA) 30 mg capsule Take 1 capsule by mouth once daily. topiramate (TOPAMAX) 25 mg tablet Take by mouth. One pill daily for a week; then one pill twice daily for a week; then one pill three times daily for a week; then two pills twice daily thereafter. budesonide-formoterol (SYMBICORT) 160-4.5 mcg/actuation inhaler Inhale 2 Puffs as instructed two times a day. albuterol HFA (PROVENTIL HFA, VENTOLIN HFA) 90 mcg/actuation inhaler INHALE 1 TO 2 PUFFS EVERY 4 TO6 HOURS NEEDED FOR WHEEZE FOR UP TO 30 DAYS EPINEPHrine (EPIPEN) 0.3 mg/0.3 mL auto-injector Inject 0.3 mg intramuscularly as needed. Current Facility-Administered Medications Medication Dose Route Frequency cyanocobalamin 1,000 mcg injection 1,000 mcg INTRAMUSCULAR q 1 MONTH I have confirmed and edited, if necessary, the PFSH obtained by others. REVIEW OF SYSTEMS: GENERAL: No weight loss, malaise or fevers RESPIRATORY: Negative for cough, hemoptysis, wheezing, dyspnea or shortness of breath CARDIOVASCULAR: Negative for chest pain, leg swelling, or palpitations GI: See HPI PHYSICAL EXAM: General - Normal, healthy, cooperative, in no acute distress Able to interact verbally by video conference Psych - ORIENTATION: normal to time place, person and situation Mood/Affect: AFFECT AND MOOD: Normal Head/Neuro - Normal size and shape Facial appearance normal Pulmonary - respiratory effort normal Cardiovascular - patient describes extremities normal, warm, no cyanosis,no clubbing, and no edema Abdominal - Not performed Skin - abnormal lesions not visualized Motor - patient seen sitting with Normal appearing strength and coordination ASSESSMENT/PLAN: Ms. Braxton is a 28 year old female with a history of SIRS, PCOS, and asthma presents for.follow up of dysphagia. She states her symptoms have gotten worse since her EGD. She continues to have pain inher chest and epigastric discomfort. She endorses continued episodes of regurgitation of foods and chest discomfort. She did not complete the MBS of manometry as ordered. No improvement with short trial of PPI. EGD was unrevealing. I recommend trial of pantoprazole 40 mg daily 30 minutes prior to ameal x 2 months. I also recommend proceeding with modified barium swallow and esophageal manometry.Also her constipation I recommend starting Metamucil daily and increasing her water intake. The patient is agreeable with the above plan and encouraged to reach out with questions and concerns. 1. Dysphagia, unspecified type - ICD9: 787.20, ICD10: R13.10 (primary diagnosis) -proceed with MBS and esophageal manometry 2. Constipation, unspecified constipation type - ICD9: 564.00, ICD10: K59.00 -metamucil daily I spent more than 25 minutes [id number] with the patient and over half the time was devoted to counseling and/or coordination of care. This note was dictated using [employer] speech recognition software and may contain some errors that were a result of the program not accurately transcribing what was dictated. I have communicated my name and active licensure. The patient's identity and physical location wereverified at the time of this visit. Either the patient or their legal collections representative has been informed of the risks and benefits of -- and alternatives to -- treatment through a remote evaluation andconsents to proceed with the evaluation remotely. Makenzie Lynn APRN.CNP [facility] History and physical note* Makenzie Lynn APRN.CNP - 06/05/2024 3:50 PM EST DISTANCE HEALTH VISIT This Team Access Model visit is a virtual encounter. It required patient- provider interaction for the medical decision making as documented below. REASON FOR VISIT: GERD HPI: Amie Braxton is a 28 year old female who presents for GERD. She states her symptoms have gotten worse since her EGD. She continues to have pain in her chest and epigastric discomfort. She endorses continued episodes of regurgitation of foods and chest discomfort. She did not complete the MBS of man ometry as ordered. She endorses some constipation. She averages 1 BM every other day. She uses fiber as needed. She admits to hard stool and straining at times. Past Clinical Work-Up: ALLERGIES Allergen Reactions Beef Containing Pro* Intolerance migraines Migraines, upset stomach Beef Derived (Bovin* Hives Beta-Blockers (Beta* Contraindication-Medical Surgical Patient carries Epipen for pineapple allergy. Egg Derived GI Upset Vomiting even with ingredient of egg Milk Containing Pro* Intolerance, Hives Vomiting. Pineapple Hives, Swelling Hives, difficulty breathing Soy GI Upset vomiting Tree Nuts Other: See Comments Asthma flaring, difficulty breathing Vancomycin Analogues Hives PAST MEDICAL HISTORY Diagnosis Date Asthma Generalized anxiety disorder Seasonal allergies PAST SURGICAL HISTORY Procedure Laterality Date TONSILLECTOMY & ADENOIDECTOMY <AGE 14 FAMILY HISTORY Problem Relation Age of Onset No Known Problems Mother No Known Problems Father No Known Problems Sister Skin Cancer Maternal Grandmother Diabetes Paternal Grandmother Social History Tobacco Use Smoking status: Never Smokeless tobacco: Never Vaping Use Vaping status: Never Used Substance Use Topics Alcohol use: Never Drug use: Never Current Outpatient Medications Medication Sig nitroglycerin sublingual (NITROQUICK) 0.3 mg SL tablet Dissolve 1 tablet under the tongue one time only for 1 dose. To be administered in Radiology for CTA exam bisoprolol (ZEBETA) 5 mg tablet Take 1 tablet by mouth once daily. azelastine 0.1% nasal spray Use 1-2 Sprays in each nostril two times a day as needed. DULoxetine (CYMBALTA) 30 mg capsule Take 1 capsule by mouth once daily. topiramate (TOPAMAX) 25 mg tablet Take by mouth. One pill daily for a week; then one pill twice daily for a week; then one pill three times daily for a week; then two pills twice daily thereafter. budesonide-formoterol (SYMBICORT) 160-4.5 mcg/actuation inhaler Inhale 2 Puffs as instructed two times a day. albuterol HFA (PROVENTIL HFA, VENTOLIN HFA) 90 mcg/actuation inhaler INHALE 1 TO 2 PUFFS EVERY 4 TO6 HOURS NEEDED FOR WHEEZE FOR UP TO 30 DAYS EPINEPHrine (EPIPEN) 0.3 mg/0.3 mL auto-injector Inject 0.3 mg intramuscularly as needed. Current Facility-Administered Medications Medication Dose Route Frequency cyanocobalamin 1,000 mcg injection 1,000 mcg INTRAMUSCULAR q 1 MONTH I have confirmed and edited, if necessary, the PFSH obtained by others. REVIEW OF SYSTEMS: GENERAL: No weight loss, malaise or fevers RESPIRATORY: Negative for cough, hemoptysis, wheezing, dyspnea or shortness of breath CARDIOVASCULAR: Negative for chest pain, leg swelling, or palpitations GI: See HPI PHYSICAL EXAM: General - Normal, healthy, cooperative, in no acute distress Able to interact verbally by video conference Psych - ORIENTATION: normal to time place, person and situation Mood/Affect: AFFECT AND MOOD: Normal Head/Neuro - Normal size and shape Facial appearance normal Pulmonary - respiratory effort normal Cardiovascular - patient describes extremities normal, warm, no cyanosis,no clubbing, and no edema Abdominal - Not performed Skin - abnormal lesions not visualized Motor - patient seen sitting with Normal appearing strength and coordination ASSESSMENT/PLAN: Ms. Braxton is a 28 year old female with a history of SIRS, PCOS, and asthma presents for.follow up of dysphagia. She states her symptoms have gotten worse since her EGD. She continues to have pain inher chest and epigastric discomfort. She endorses continued episodes of regurgitation of foods and chest discomfort. She did not complete the MBS of manometry as ordered. No improvement with short trial of PPI. EGD was unrevealing. I recommend trial of pantoprazole 40 mg daily 30 minutes prior to ameal x 2 months. I also recommend proceeding with modified barium swallow and esophageal manometry.Also her constipation I recommend starting Metamucil daily and increasing her water intake. The patient is agreeable with the above plan and encouraged to reach out with questions and concerns. 1. Dysphagia, unspecified type - ICD9: 787.20, ICD10: R13.10 (primary diagnosis) -proceed with MBS and esophageal manometry 2. Constipation, unspecified constipation type - ICD9: 564.00, ICD10: K59.00 -metamucil daily I spent more than 25 minutes [id number] with the patient and over half the time was devoted to counseling and/or coordination of care. This note was dictated using [employer] speech recognition software and may contain some errors that were a result of the program not accurately transcribing what was dictated. I have communicated my name and active licensure. The patient's identity and physical location wereverified at the time of this visit. Either the patient or their legal collections representative has been informed of the risks and benefits of -- and alternatives to -- treatment through a remote evaluation andconsents to proceed with the evaluation remotely. Makenzie Lynn APRN.CNP documented in this encounterK[facility]11-[facility]-2024 Telephone encounter Note * Telephone Encounter - Daniel Guerrero DO - 06/05/2024 11:25 AM EST Yes, I believe I put her in for 4 of them total, once a month and then we will repeat the blood level and see where she is at. Dr. Hatfield [facility]11-26-2024 Miscellaneous Notes* Telephone Encounter - Daniel Guerrero DO - 06/05/2024 11:25 AM EST Yes, I believe I put her in for 4 of them total, once a month and then we will repeat the blood level and see where she is at. Dr. Hatfield * Telephone Encounter - Jessica Henderson - 06/05/2024 10:22 AM EST Patient had B12 injection today and wanted to schedule her next appt for another injection in 1 month. Is this ok? Please advise thanks! documented in this encounterKet[facility]11-26-2024 Telephone encounter Note * Telephone Encounter - Jessica Henderson - 06/05/2024 10:22 AM EST Patient had B12 injection today and wanted to schedule her next appt for another injection in 1 month. Is this ok? Please advise thanks! [facility] Nurse Note* Idania Salas LPN - 06/05/2024 10:16 AM EST Pt in today for her B 12 injection , right delt , pt wojciech well [facility] Nurse Note* Idania Salas LPN - 06/05/2024 10:16 AM EST Pt in today for her B 12 injection , right delt , pt wojciech well documented in this encounterK[facility]11-22-2024 NoteOhio[facility]11-[facility] History of Present illness Narrative* Fernie Cruz APRN.HORSE SHOER - 06/01/2024 2:11 PM EST ESTABLISHED PATIENT OFFICE VISIT HISTORY OF PRESENT ILLNESS Amie Braxton is a 28 year old female who presents today in f/u. Patient with a history of interstitial cystitis. Cystoscopy with Dr. Thurman on 11/08/2023: Normal cystoscopy. Patient presents today with complaints of a possible urinary tract infection. Symptoms started about 2-3 weeks ago. She complains of urgency and frequency. Waking up at night with urgency. Denies any gross hematuria. No fever or chills. Denies abdominal pain or flank pain. She has been trying to watch for bladder irritants that flare up her urgency symptoms. She has been adding salt tablets to her drinks due to the low sodium and possible POTS. She feels that the salt tablets irritate her bladder at times. LAB RESULTS Creatinine Date Value Ref Range Status 05/26/2024 0.91 0.58 - 0.96 mg/dL Final No results found for: PSA Color (no units) Date Value 05/26/2024 Yellow Clarity (no units) Date Value 05/26/2024 Clear Glucose, Urine (no units) Date Value 05/26/2024 Negative Bilirubin, Urine (no units) Date Value 05/26/2024 Negative Ketones, Urine (no units) Date Value 05/26/2024 Negative Specific [place], Ur (no units) Date Value 05/26/2024 1.010 Hemoglobin/Blood,Ur (no units) Date Value 05/26/2024 Negative pH, Urine (no units) Date Value 05/26/2024 7.5 Protein, Urine (no units) Date Value 05/26/2024 Negative Urobilinogen (no units) Date Value 05/26/2024 0.2 EU/dL Nitrites (no units) Date Value 05/26/2024 Negative Leuk Esterase (no units) Date Value 05/26/2024 Negative MEDICATIONS: bisoprolol (ZEBETA) 5 mg tablet^Take 1 tablet by mouth once daily.^Disp: 30 tablet^Rfl: 5 azelastine 0.1% nasal spray^Use 1-2 Sprays in each nostril two times a day as needed.^Disp: 30 mL^Rfl: 11 DULoxetine (CYMBALTA) 30 mg capsule^Take 1 capsule by mouth once daily.^Disp: 30 capsule^Rfl: 2 topiramate (TOPAMAX) 25 mg tablet^Take by mouth. One pill daily for a week; then one pill twice daily for a week; then one pill three times daily for a week; then two pills twice daily thereafter.^Disp: 120 tablet^Rfl: 11 budesonide-formoterol (SYMBICORT) 160-4.5 mcg/actuation inhaler^Inhale 2 Puffs as instructed two times a day.^Disp: 10.2 g^Rfl: 5 albuterol HFA (PROVENTIL HFA, VENTOLIN HFA) 90 mcg/actuation inhaler^INHALE 1 TO 2 PUFFS EVERY 4 TO6 HOURS NEEDED FOR WHEEZE FOR UP TO 30 DAYS^Disp: ^Rfl: EPINEPHrine (EPIPEN) 0.3 mg/0.3 mL auto-injector^Inject 0.3 mg intramuscularly as needed.^Disp: ^Rfl: nitroglycerin sublingual (NITROQUICK) 0.3 mg SL tablet^Dissolve 1 tablet under the tongue one time only for 1 dose. To be administered in Radiology for CTA exam^Disp: 1 tablet^Rfl: 0 REVIEW OF SYSTEMS CONSTITUTIONAL: Patient reports no recent fever or weight loss CARDIOVASCULAR: No chest pain, palpitations or ankle edema. RESPIRATORY: No wheezing, frequent cough or shortness of breath GENITOURINARY: See HPI HISTORIES PAST MEDICAL HISTORY Diagnosis Date Asthma Generalized anxiety disorder Seasonal allergies FAMILY HISTORY Problem Relation Age of Onset No Known Problems Mother No Known Problems Father No Known Problems Sister Skin Cancer Maternal Grandmother Diabetes Paternal Grandmother PAST SURGICAL HISTORY Procedure Laterality Date TONSILLECTOMY & ADENOIDECTOMY <AGE 14 SOCIAL HISTORY Social History Tobacco Use Smoking status: Never Smokeless tobacco: Never Vaping Use Vaping status: Never Used Substance Use Topics Alcohol use: Never Drug use: Never PHYSICAL EXAMINATION General appearance: Well appearing, alert, in no acute distress, well-hydrated, well nourished.. BACK: not examined. MUSCULOSKELETAL: Negative for joint pain or swelling. RESPIRATORY: Normal respiratory effort. SKIN: Normal color, no rash, no lesions.. ASSESSMENT/PLAN: 1. Frequency of urination - ICD9: 788.41, ICD10: R35.0 - UA DIP, URINE (POC) - URINE CULTURE -Urine culture sent today, will await culture results. -Patient to increase her fluids, this usually helps her symptoms. -She will call with any UTI symptoms or bladder issues. Fernie Cruz APRN.HORSE SHOER documented in this encounterKettering [facility]11-11-2024 [id number] (AGENT OF COVID-19) RNA: Not detected INFLUENZA A RNA: Not detected INFLUENZA B RNA: Not detected RESPIRATORY SYNCYTIAL VIRUS (RSV) RNA: Not detectedNorthern Light C.A. Dean HospitalComment on above:Performed By: #### [id number] ####[facility] LABCLIA [id number] [place] [id number] [id number] NoteHNO ID: [id number] Author: ARUNA IRVIN MA Service: ? Author Type: [employer] Type: Progress Notes Filed: 05/15/2024 08:41 Note Text:[facility] History of Present illness Narrative* Aruna Irvin MA - 05/15/2024 8:02 AM EST documented in this encounterKettering [facility]11-05-2024 History and physical note * Daniel Mauro MD - 05/15/2024 6:57 AM EST 08:09 - 08:39 Chart Review Parenthetic [comments] and tinted emphasis mine. When last seen, 04/03/24, my impression was: Stabbing headaches - often a concomitant of migraine, but other times a trigeminal autonomic cephalalgia, necessitating exclusion of a hypothalamic or pituitary lesion. Aspects of her headaches post-[place] and prior to the [place] of the superimposed stabbing headaches include anterior predominance, severity, thumping quality, nausea, aversion to stimulation, visual distortions, and dizziness. She also may have PPPV - the hustle and bustle of the supermarket causes her to be dizzy - My brain feels overwhelmed - when you're in a market there's so many things going on. Diagnostically, I will pursue an MRI brain due to her stabbing headaches, on premise that it might be primary stabbing headaches. If it proves negative, treating the stabbing headaches as a form of migraine is a viable diagnosis of exclusion. I do not think, on account of their frequency, that her headaches can be treated symptomatically, as this will precipitate analgesic rebound headaches - if this is not already the case (OTC's no longer work as of 2 years ago). With regard to treatment, there are competing priorities here, in the sense that I think she has frequent migraines, and that may cause difficulty concentrating - brain fog - but the two most effective ordinary migraine preventives (as opposed to the new CGRP receptor antagonists) are propranolol and topiramate; and she is asthmatic. Topiramate can cause brain fog, but in a minority of individuals. We discussed the importance of preventing on topiramate because of the increased frequency of defects; she voices understanding; Topiramate may cause difficulty thinking - usually in the form of word finding difficulty. It is reversible on discontinuing the drug. It frequentlycauses tingling in the lips, fingers and toes for the first couple of months of treatment. It sometimes causes a change in the taste of food; in particular, carbonated beverages may taste metallic. It can also cause decreased appetite. Three percent of patients taking topiramate experience urolithiasis; it is thought that drinking water liberally reduces the likelihood of this happening. She willincrease the dose by 25 mg per week to a maintenance dose of 50 mg bid. I will see her in about 6 weeks in follow up. If prevention of her headaches is successful, but her dizziness persists, we can pursue cognitive behavioral therapy with Dr. Joann Braxton as for PPPV. ------ 04/28/24 MRI brain wo proved unremarkable. ====== With that preamble, Ms. Braxton is still having the pressure - and dizziness - continue despite the topiramate. In fact her dizziness has gotten worse. She is not having any adverse effects. She is drinking plenty of water. The character of her dizziness has changed. I feel drunk most times - it's developed into more of a --- my sense of balance and everything around me is abnormal sometimes. There are moments when it seems more normal --- and it happens very quickly. We were furniture shopping and - just out of nowhere, I felt drunk and had to lay down in the car a little while. She does not remember having a headache in the furniture store. She sometimes feels that way when she is at home, seated, talking. It evens happens when she is recumbent, though not as often. At those times, she feels a braxton through my body, like everything dropped to my feet. When seated or standing - but mostly when seated - shewill have the feeling of a pressure rushing up to her head. She went to a conference; the carpet was disorienting when she walked. Her cell phone picture of itshows why. This makes me more confident that she has PPPV. EGD recently proved normal. She tells me that it was done for GERD. She feels like her memory is spotty. That is not just since topiramate; it has been going on since early this year, antedating the topiramate. She feels it has been worse since admission to the CCU at [facility] in February. We talked a little about her hospitalization at [facility] in February. The Discharge Summary is in Care Everywhere, dated 03/01/[address] Tami Darnell: Hospital Course: mAie Braxton is a 28 y.o. female that presented to [facility] as a transfer from [facility] on 02/28/2024 and was admitted for acute onset chest tightness and burning w/ concern for ischemia based on EKG findings. Her EKG was suggestive of repolarization abnormalities that had been previously documented on EKG's (2022), and she has chronic chest pain and dyspnea. The workup during her hospitalization revealed no underlying acute cardiac etiologies of her symptoms and her TTE was also normal with no wall-motion abnormalities. Her presenting symptoms were felt to be attributed to orthostatic tachycardia inthe setting of her history of POTS, and possible dyspepsia During her hospitalization, her workup did reveal a low vitamin B12 level for which she was startedon vitamin B12 supplementation. As some of her symptoms were appreciated after meals, she was started on a 30-day trial of pantoprazole 40 mg. On the day of discharge, she reported no chest tightnessor burning, but did report some dizziness during ambulation, which she continues to be worked up for in the outpatient setting. She was discharged in stable condition with an outpatient cardiac stress-test scheduled as well as outpatient cardiology follow-up visit. She is also aware to maintain hydration and increase her sodium intake. Procedures Performed: None Echocardiogram (02/29/2024): Transthoracic echocardiogram (TTE) complete with contrast, bubble, strain, and 3D PRN Result Date: 02/29/2024 Left Ventricle: Left ventricle size is normal. Normal wall thickness. Normal left ventricular systolic function. EF by 2D Simpsons Biplane is 57%. Normal wall motion. Normal diastolic function. RightVentricle: Right ventricle size is normal. Normal systolic function. No significant valvular abnormalities. She has since been supplemented parenterally with B12. PAST MEDICAL HISTORY Diagnosis Date Asthma Generalized anxiety disorder Seasonal allergies PAST SURGICAL HISTORY Procedure Laterality Date TONSILLECTOMY & ADENOIDECTOMY Social History Tobacco Use Smoking status: Never Smokeless tobacco: Never Vaping Use Vaping status: Never Used Substance Use Topics Alcohol use: Never Drug use: Never FAMILY HISTORY Problem Relation Age of Onset No Known Problems Mother No Known Problems Father No Known Problems Sister Skin Cancer Maternal Grandmother Diabetes Paternal Grandmother Current Outpatient Medications on File Prior to Visit Medication Sig bisoprolol (ZEBETA) 5 mg tablet Take 1 tablet by mouth once daily. azelastine 0.1% nasal spray Use 1-2 Sprays in each nostril two times a day as needed. DULoxetine (CYMBALTA) 30 mg capsule Take 1 capsule by mouth once daily. topiramate (TOPAMAX) 25 mg tablet Take by mouth. One pill daily for a week; then one pill twice daily for a week; then one pill three times daily for a week; then two pills twice daily thereafter. budesonide-formoterol (SYMBICORT) 160-4.5 mcg/actuation inhaler Inhale 2 Puffs as instructed two times a day. albuterol HFA (PROVENTIL HFA, VENTOLIN HFA) 90 mcg/actuation inhaler INHALE 1 TO 2 PUFFS EVERY 4 TO6 HOURS NEEDED FOR WHEEZE FOR UP TO 30 DAYS EPINEPHrine (EPIPEN) 0.3 mg/0.3 mL auto-injector Inject 0.3 mg intramuscularly as needed. Current Facility-Administered Medications on File Prior to Visit Medication cyanocobalamin 1,000 mcg injection PHYSICAL EXAM General: Alert, conversant, appropriate, young, FEMALE, in no apparent distress, accompanied by herboyfriend. Vital Signs: BP 108/75 Pulse 78 Ht 152.4 cm (5') Wt 49 kg (108 lb 0.4 oz) LMP 06/24/2023 (Approximate) BMI 21.10 kg/m - reviewed. IMPRESSION AND PLAN: I will check Amie's topiramate level, and assuming it is not too high, will increase her topiramate dose. Again, I suspect her imbalance may be due to migraine, and if it is, then it may (eventually) yield to topiramate. On the other hand, seeing the carpet which made her dizzy, I am at least as persuaded that this is PPPV. I will refer her Dr. Joann Braxton. Sincerely, Daniel Mauro MD Staff, General Neurology I spent 30 minutes in this visit face to face with the patient, with more than 50% of the time devoted to patient counseling with regard to the impression, patient education, interpretation of the studies, the diagnosis, treatment options, theneed for further diagnostic testing, and coordination ofcare. [facility]11-05-2024 History and physical note* Daniel Mauro MD - 05/15/2024 6:57 AM EST 08:09 - 08:39 Chart Review Parenthetic [comments] and tinted emphasis mine. When last seen, 04/03/24, my impression was: Stabbing headaches - often a concomitant of migraine, but other times a trigeminal autonomic cephalalgia, necessitating exclusion of a hypothalamic or pituitary lesion. Aspects of her headaches post-[place] and prior to the [place] of the superimposed stabbing headaches include anterior predominance, severity, thumping quality, nausea, aversion to stimulation, visual distortions, and dizziness. She also may have PPPV - the hustle and bustle of the supermarket causes her to be dizzy - My brain feels overwhelmed - when you're in a market there's so many things going on. Diagnostically, I will pursue an MRI brain due to her stabbing headaches, on premise that it might be primary stabbing headaches. If it proves negative, treating the stabbing headaches as a form of migraine is a viable diagnosis of exclusion. I do not think, on account of their frequency, that her headaches can be treated symptomatically, as this will precipitate analgesic rebound headaches - if this is not already the case (OTC's no longer work as of 2 years ago). With regard to treatment, there are competing priorities here, in the sense that I think she has frequent migraines, and that may cause difficulty concentrating - brain fog - but the two most effective ordinary migraine preventives (as opposed to the new CGRP receptor antagonists) are propranolol and topiramate; and she is asthmatic. Topiramate can cause brain fog, but in a minority of individuals. We discussed the importance of preventing on topiramate because of the increased frequency of defects; she voices understanding; Topiramate may cause difficulty thinking - usually in the form of word finding difficulty. It is reversible on discontinuing the drug. It frequentlycauses tingling in the lips, fingers and toes for the first couple of months of treatment. It sometimes causes a change in the taste of food; in particular, carbonated beverages may taste metallic. It can also cause decreased appetite. Three percent of patients taking topiramate experience urolithiasis; it is thought that drinking water liberally reduces the likelihood of this happening. She willincrease the dose by 25 mg per week to a maintenance dose of 50 mg bid. I will see her in about 6 weeks in follow up. If prevention of her headaches is successful, but her dizziness persists, we can pursue cognitive behavioral therapy with Dr. Joann Braxton as for PPPV. ------ 04/28/24 MRI brain wo proved unremarkable. ====== With that preamble, Ms. Braxton is still having the pressure - and dizziness - continue despite the topiramate. In fact her dizziness has gotten worse. She is not having any adverse effects. She is drinking plenty of water. The character of her dizziness has changed. I feel drunk most times - it's developed into more of a --- my sense of balance and everything around me is abnormal sometimes. There are moments when it seems more normal --- and it happens very quickly. We were furniture shopping and - just out of nowhere, I felt drunk and had to lay down in the car a little while. She does not remember having a headache in the furniture store. She sometimes feels that way when she is at home, seated, talking. It evens happens when she is recumbent, though not as often. At those times, she feels a braxton through my body, like everything dropped to my feet. When seated or standing - but mostly when seated - shewill have the feeling of a pressure rushing up to her head. She went to a conference; the carpet was disorienting when she walked. Her cell phone picture of itshows why. This makes me more confident that she has PPPV. EGD recently proved normal. She tells me that it was done for GERD. She feels like her memory is spotty. That is not just since topiramate; it has been going on since early this year, antedating the topiramate. She feels it has been worse since admission to the CCU at [facility] in February. We talked a little about her hospitalization at [facility] in February. The Discharge Summary is in Care Everywhere, dated 03/01/[address] Tami Dranell: Hospital Course: Amie Braxton is a 28 y.o. female that presented to [facility] as a transfer from [facility] on 02/28/2024 and was admitted for acute onset chest tightness and burning w/ concern for ischemia based on EKG findings. Her EKG was suggestive of repolarization abnormalities that had been previously documented on EKG's (2022), and she has chronic chest pain and dyspnea. The workup during her hospitalization revealed no underlying acute cardiac etiologies of her symptoms and her TTE was also normal with no wall-motion abnormalities. Her presenting symptoms were felt to be attributed to orthostatic tachycardia inthe setting of her history of POTS, and possible dyspepsia During her hospitalization, her workup did reveal a low vitamin B12 level for which she was startedon vitamin B12 supplementation. As some of her symptoms were appreciated after meals, she was started on a 30-day trial of pantoprazole 40 mg. On the day of discharge, she reported no chest tightnessor burning, but did report some dizziness during ambulation, which she continues to be worked up for in the outpatient setting. She was discharged in stable condition with an outpatient cardiac stress-test scheduled as well as outpatient cardiology follow-up visit. She is also aware to maintain hydration and increase her sodium intake. Procedures Performed: None Echocardiogram (02/29/2024): Transthoracic echocardiogram (TTE) complete with contrast, bubble, strain, and 3D PRN Result Date: 02/29/2024 Left Ventricle: Left ventricle size is normal. Normal wall thickness. Normal left ventricular systolic function. EF by 2D Simpsons Biplane is 57%. Normal wall motion. Normal diastolic function. RightVentricle: Right ventricle size is normal. Normal systolic function. No significant valvular abnormalities. She has since been supplemented parenterally with B12. PAST MEDICAL HISTORY Diagnosis Date Asthma Generalized anxiety disorder Seasonal allergies PAST SURGICAL HISTORY Procedure Laterality Date TONSILLECTOMY & ADENOIDECTOMY <AGE 14 Social History Tobacco Use Smoking status: Never Smokeless tobacco: Never Vaping Use Vaping status: Never Used Substance Use Topics Alcohol use: Never Drug use: Never FAMILY HISTORY Problem Relation Age of Onset No Known Problems Mother No Known Problems Father No Known Problems Sister Skin Cancer Maternal Grandmother Diabetes Paternal Grandmother Current Outpatient Medications on File Prior to Visit Medication Sig bisoprolol (ZEBETA) 5 mg tablet Take 1 tablet by mouth once daily. azelastine 0.1% nasal spray Use 1-2 Sprays in each nostril two times a day as needed. DULoxetine (CYMBALTA) 30 mg capsule Take 1 capsule by mouth once daily. topiramate (TOPAMAX) 25 mg tablet Take by mouth. One pill daily for a week; then one pill twice daily for a week; then one pill three times daily for a week; then two pills twice daily thereafter. budesonide-formoterol (SYMBICORT) 160-4.5 mcg/actuation inhaler Inhale 2 Puffs as instructed two times a day. albuterol HFA (PROVENTIL HFA, VENTOLIN HFA) 90 mcg/actuation inhaler INHALE 1 TO 2 PUFFS EVERY 4 TO6 HOURS NEEDED FOR WHEEZE FOR UP TO 30 DAYS EPINEPHrine (EPIPEN) 0.3 mg/0.3 mL auto-injector Inject 0.3 mg intramuscularly as needed. Current Facility-Administered Medications on File Prior to Visit Medication cyanocobalamin 1,000 mcg injection PHYSICAL EXAM General: Alert, conversant, appropriate, young, FEMALE, in no apparent distress, accompanied by herboyfriend. Vital Signs: BP 108/75 Pulse 78 Ht 152.4 cm (5') Wt 49 kg (108 lb 0.4 oz) LMP 06/24/2023 (Approximate) BMI 21.10 kg/m - reviewed. IMPRESSION AND PLAN: I will check Amie's topiramate level, and assuming it is not too high, will increase her topiramate dose. Again, I suspect her imbalance may be due to migraine, and if it is, then it may (eventually) yield to topiramate. On the other hand, seeing the carpet which made her dizzy, I am at least as persuaded that this is PPPV. I will refer her Dr. Joann Braxton. Sincerely, Daniel Mauro MD Staff, General Neurology I spent 30 minutes in this visit face to face with the patient, with more than 50% of the time devoted to patient counseling with regard to the impression, patient education, interpretation of the studies, the diagnosis, treatment options, theneed for further diagnostic testing, and coordination ofcare. [facility] Instructions* Patient Instructions* Daniel Guerrero, - 05/10/2024 2:41 PM EDT Thank you for arriving to your appointment today! Below is a brief summary of our appointment. You were seen for: Establishing care Medication changes: No changes today Next appointment: in 1 months documented in this encounterK[facility] Nurse Note* Ayaka Bean LPN - 05/10/2024 2:07 PM EDT Pt in today to est care; hasn't started duloxetine, and Zebeta yet. C/o daily headaches. Also having dizziness and ear pain. Pt declined flu and Prevnar shot today. [facility]-20[facility] Nurse Note* Ayaka Bean LPN - 05/10/2024 2:07 PM EDT Pt in today to est care; hasn't started duloxetine, and Zebeta yet. C/o daily headaches. Also having dizziness and ear pain. Pt declined flu and Prevnar shot today. documented in this encounterK[facility]10-31-2024 History of Present illness Narrative* Daniel Guerrero DO - 05/10/2024 2:00 PM EDT Images from the original note were not included. [facility] [place] [address] [address] Dept: [phone] Dept Visit Date: May 10, 2024 Name: Amie Braxton Date of : 1995 MRN/E #: [id number] Chief Complaint: Amie Braxton is a 28 year old female here for Patient presents with: Establish Care Subjective From [facility] was sent to neurology and pulmonology. She has crossed off both of these providers. Feels like she was stable / functional for a period of time. Then around January she noted worsening of symptoms. She was going camping with friends and felt very fatigued prior. Viral testing was negative. During the trip felt spacy and drunk. 1wk after that still felt the same way. She did multiple trips in succession. This was a long-lived experience than what she had previously. In went to [facility] with ear infection and treated with abx without improvements. In she was on a trip and feeling good and towards the end of the trip, while hiking, afterwards she wasn't feeling well. High heart rate, feeling dizzy, presyncope, becoming tremulous. Since that trip in January, her symptoms have not improved. In Feb she was feeling hot during talking to a friend and anxiety and HR were elevated. She felt a fluctuation in consciousness. She also felt a weird sensation in her chest and her HR was 150s. [place] ED [place]. 2 EKGs were abnormal and sent to [facility]. Went to ICU x3 days, poor memory. Found to have low B12. From the ICU they felt it was POTS. Saw Dr. Pyle and completed event monitor, Tilt Table. She has been working with prior PCP for anxiety / depression medication that can work with fits. Prozac, lexapro, effexor, and now cymbalta. Increasing salt intake, compression stalkings, and HEP without improvement in symptoms. Neurology: Completed MRI in Apr 2024 showing no acute findings. Trying topamax without any change. Currently taking Topamax 25mg. Gastro: EGD completed and was normal. Trailed PPI in ICU at [facility] and it didn't change much. Physical therapy: following with PT ([facility] PT). Only approved for 2 mo and now doing HEP. Slowly introducing meds into her body so that she can monitor for side effects. B12 injections with prior PCP. ROS per HPI Social History Tobacco Use Smoking status: Never Smokeless tobacco: Never Vaping Use Vaping status: Never Used Substance Use Topics Alcohol use: Never Drug use: Never ALLERGIES Allergen Reactions Beef Containing Pro* Intolerance migraines Migraines, upset stomach Beef Derived (Bovin* Hives Beta-Blockers (Beta* Contraindication-Medical Surgical Patient carries Epipen for pineapple allergy. Egg Derived GI Upset Vomiting even with ingredient of egg Milk Containing Pro* Intolerance, Hives Vomiting. Pineapple Hives, Swelling Hives, difficulty breathing Soy GI Upset vomiting Tree Nuts Other: See Comments Asthma flaring, difficulty breathing Vancomycin Analogues Hives Current Outpatient Medications Medication Sig topiramate (TOPAMAX) 25 mg tablet Take by mouth. One pill daily for a week; then one pill twice daily for a week; then one pill three times daily for a week; then two pills twice daily thereafter. budesonide-formoterol (SYMBICORT) 160-4.5 mcg/actuation inhaler Inhale 2 Puffs as instructed two times a day. bisoprolol (ZEBETA) 5 mg tablet Take 1 tablet by mouth once daily. azelastine 0.1% nasal spray Use 1-2 Sprays in each nostril two times a day as needed. DULoxetine (CYMBALTA) 30 mg capsule Take 1 capsule by mouth once daily. albuterol HFA (PROVENTIL HFA, VENTOLIN HFA) 90 mcg/actuation inhaler INHALE 1 TO 2 PUFFS EVERY 4 TO6 HOURS NEEDED FOR WHEEZE FOR UP TO 30 DAYS EPINEPHrine (EPIPEN) 0.3 mg/0.3 mL auto-injector Inject 0.3 mg intramuscularly as needed. Current Facility-Administered Medications Medication Dose Route Frequency cyanocobalamin 1,000 mcg injection 1,000 mcg INTRAMUSCULAR q 1 MONTH In terms of Health Maintenance, we discussed: Pneumococcal Vaccine(1 of 2 - PCV) Never done HPV Vaccine(1 - 3-dose series) Never done Depression Screening Never done Influenza Vaccine(1) due on 03/11/2024 Covid-19 Vaccine(2023- season) Never done Please see social determinants section of patients chart for updated social history. Previous office notes, Lab,imaging, and microbiology results reviewed. I have confirmed and edited as necessary the chief complaint, medications, past medical, family andsocial histories. Objective BP 120/86 Pulse 77 Temp 36.8 C (98.3 F) (Temporal) Wt 48.9 kg (107 lb 12.9 oz) LMP 06/24/2023 (Approximate) SpO2 98% BMI 21.05 kg/m Last 3 Encounter BP Readings: Date: BP: 04/27/2024 115/61 04/27/2024 93/50 04/25/2024 100/68 Body mass index is 21.05 kg/m . Physical Exam Vitals reviewed. Constitutional: General: She is not in acute distress. Appearance: Normal appearance. She is not toxic-appearing. HENT: Head: Normocephalic and atraumatic. Right Ear: Tympanic membrane, ear canal and external ear normal. There is no impacted cerumen. Left Ear: Tympanic membrane, ear canal and external ear normal. There is no impacted cerumen. Nose: Congestion present. No rhinorrhea. Mouth/Throat: Mouth: Mucous membranes are moist. Pharynx: Oropharynx is clear. No oropharyngeal exudate. Eyes: Conjunctiva/sclera: Conjunctivae normal. Cardiovascular: Rate and Rhythm: Normal rate and regular rhythm. Pulses: Normal pulses. Heart sounds: No murmur heard. No friction rub. No gallop. Pulmonary: Effort: Pulmonary effort is normal. Breath sounds: No wheezing, rhonchi or rales. Abdominal: Palpations: Abdomen is soft. Tenderness: There is no abdominal tenderness. Musculoskeletal: General: Normal range of motion. Cervical back: Normal range of motion. No rigidity or tenderness. Right lower leg: No edema. Left lower leg: No edema. Lymphadenopathy: Cervical: No cervical adenopathy. Skin: General: Skin is warm. Capillary Refill: Capillary refill takes less than 2 seconds. Findings: No bruising or lesion. Neurological: Mental Status: She is alert and oriented to person, place, and time. Motor: No weakness. Coordination: Coordination normal. Gait: Gait normal. Psychiatric: Mood and Affect: Mood normal. Behavior: Behavior normal. Thought Content: Thought content normal. Judgment: Judgment normal. Plan and Recommendations: ASSESSMENT/PLAN: 1. Encounter to establish care - ICD9: V65.8, ICD10: Z76.89 (primary diagnosis) New pt - reviewed EMR, meds, and pmhx. Discussed immunizations and she elected to hold off for today given how her system is reacting to new medicines. Will f/u at next visit 2. POTS (postural orthostatic tachycardia syndrome) - ICD9: 427.89, ICD10: G90.A Chronic problem - symptoms suggestive although prior testing not diagnostic. Will continue to monitor response as she is implementing lifestyle modifications. 3. PCOS (polycystic ovarian syndrome) - ICD9: 256.4, ICD10: E28.2 Chronic problem - stable - continue current management with WAITER/WAITRESS COCKTAIL LOUNGE. 4. Moderate persistent asthma without complication - ICD9: 493.90, ICD10: J45.40 - Moderate persistent asthma stable - Continue current medications - Avoidance of triggers recommended 5. Gastroesophageal reflux disease with esophagitis without hemorrhage - ICD9: 530.81, 530.10, ICD10: K21.00 - Resolved. No change with PPI therapy. Negative EGD. 6. Seasonal allergic rhinitis due to pollen - ICD9: 477.0, ICD10: J30.1 Chronic problem - stable - encouraged intranasal steroid + intranasal muscarinic. 7. Vitamin B12 deficiency - ICD9: 266.2, ICD10: E53.8 Acute findings. Continuing injections. - CYANOCOBALAMIN (VIT B-12) 1,000 MCG/ML INJECTION SOLUTION Daniel Guerrero DO Discussed the above with the patient using shared decision-making. The patient is in agreement with the diagnostic and treatment plans. Return in about 4 weeks (around 06/07/2024) for in 1 month for B12 injections with nursing. I spent a total of 45 minutes on the date of the service which included preparing to see the patient, [id number] patient care, completing clinical documentation, obtaining and/or reviewing separately obtained history, performing a medically appropriate examination, counseling and educating the pat ient/family/caregiver, ordering medications, tests, or procedures, communicating with other HCPs (not separately reported), independently interpreting results (not separately reported), communicatingresults to the patient/family/caregiver, and care coordination (not separately reported). Provider: Daniel Guerrero DO [facility] Telephone encounter Note* Telephone Encounter - Katrina Ortiz RN - 05/02/2024 4:00 PM EDT Images from the original note were not included. Makenzie Lynn APRN.HORSE SHOER You26 minutes ago (3:31 PM) [employer] TEACHER Orders placed for MBS and manometry. Makenzie Lynn APRN.CNP Call to patient, no answer, unable to leave message. message sent to patient. Katrina Ortiz RN [facility]10-23-2024 Miscellaneous Notes* Telephone Encounter - Katrina Ortiz RN - 05/02/2024 4:00 PM EDT Images from the original note were not included. Makenzie Lynn APRN.JULIAN You26 minutes ago (3:31 PM) SED H[employer]CHOOL TEACHER Orders placed for MBS and manometry. Makenzie Lynn APRN.CNP Call to patient, no answer, unable to leave message. message sent to patient. Katrina Ortiz RN * Telephone Encounter - Katrina Ortiz RN - 05/02/2024 2:27 PM EDT Call to patient, to discuss symptoms. Ever since EGD 04/27/24, persistent discomfort with swallowing . When she swallows, a little below throat starts to get painful with liquids, solids and pills. Has soreness in the chest like she was punched since EGD. [place] fatigued after anesthesia and continues to feel fatigued. Concerned maybe anesthesia exacerbated POTS symptoms? Please advise. Thank you, Katrina Ortiz RN * Telephone Encounter - Mamie Mccallum LPN - 05/02/2024 12:51 PM EDT Patient left a message on the nurse line asking for results of biopsies and she is still having symptoms. C/o pain with swallowing and discomfort in the throat. EFREN 04/17/2024 with Makenzie Lynn CNP EGD 04/27/[address] Maximiliano Peterson Impression: - Z-line regular, 35 cm from the incisors. - Normal esophagus. - Normal stomach. Biopsied. - Normal examined duodenum. Biopsied. - Biopsies were taken with a cold forceps for evaluation of eosinophilic esophagitis. Recommendation: - Resume previous diet. - Continue present medications. - Await pathology results. FINAL DIAGNOSIS A. Small bowel, duodenum, biopsy: - Duodenal mucosa with no significant diagnostic alterations. B. Stomach, biopsy: - Gastric mucosa with no significant diagnostic alterations. - No morphologic evidence of Helicobacter pylori organisms. C. Esophagus, distal, biopsy: - Squamous esophageal mucosa with no significant diagnostic alterations. D. Esophagus, proximal, biopsy: - Squamous esophageal mucosa with no significant diagnostic alterations. AEB/bs 05/01/2024 documented in this [facility]10-23-2024 Telephone encounter Note * Telephone Encounter - Katrina Ortiz RN - 05/02/2024 2:27 PM EDT Call to patient, to discuss symptoms. Ever since EGD 04/27/24, persistent discomfort with swallowing . When she swallows, a little below throat starts to get painful with liquids, solids and pills. Has soreness in the chest like she was punched since EGD. [place] fatigued after anesthesia and continues to feel fatigued. Concerned maybe anesthesia exacerbated POTS symptoms? Please advise. Thank you, Katrina Ortiz RN [facility] Telephone encounter Note* Telephone Encounter - Mamie Mccallum LPN - 05/02/2024 12:51 PM EDT Patient left a message on the nurse line asking for results of biopsies and she is still having symptoms. C/o pain with swallowing and discomfort in the throat. EFREN 04/17/2024 with Makenzie Lynn HORSE SHOER EGD 04/27/[address] Maximiliano Peterson Impression: - Z-line regular, 35 cm from the incisors. - Normal esophagus. - Normal stomach. Biopsied. - Normal examined duodenum. Biopsied. - Biopsies were taken with a cold forceps for evaluation of eosinophilic esophagitis. Recommendation: - Resume previous diet. - Continue present medications. - Await pathology results. FINAL DIAGNOSIS A. Small bowel, duodenum, biopsy: - Duodenal mucosa with no significant diagnostic alterations. B. Stomach, biopsy: - Gastric mucosa with no significant diagnostic alterations. - No morphologic evidence of Helicobacter pylori organisms. C. Esophagus, distal, biopsy: - Squamous esophageal mucosa with no significant diagnostic alterations. D. Esophagus, proximal, biopsy: - Squamous esophageal mucosa with no significant diagnostic alterations. AEB/bs 05/01/2024 [facility]10-22-[facility] Telephone encounter Note* Telephone Encounter - Ayaka Chase LPN - 05/01/2024 3:30 PM EDT Attempted to call patient to review test results; no answer, unable to leave a voicemail msg. Ayaka Chase LPN [facility]10-22-2024 Miscellaneous Notes* Telephone Encounter - Ayaka Chase LPN - 05/01/2024 3:30 PM EDT Attempted to call patient to review test results; no answer, unable to leave a voicemail msg. Ayaka Chase LPN * Telephone Encounter - Ramses Pyle MD - 05/01/2024 3:12 PM EDT 2-week patch monitor results dated 04/30/2024 Sinus rhythm with heart rate between 52 to 164 bpm. PVC burden was less than 0.01%. She recorded 25events during the monitoring duration. Unfortunately the patient's symptoms did not have an arrhythmic correlate. I have discussed beta-lela therapy with her and ordered the same. documented in this encounterK[facility]10-22-2024 Telephone encounter Note * Telephone Encounter - Ramses Pyle MD - 05/01/2024 3:12 PM EDT 2-week patch monitor results dated 04/30/2024 Sinus rhythm with heart rate between 52 to 164 bpm. PVC burden was less than 0.01%. She recorded 25events during the monitoring duration. Unfortunately the patient's symptoms did not have an arrhythmic correlate. I have discussed beta-lela therapy with her and ordered the same. [facility]10-[facility] History of Present illness Narrative* Martha Cancino MRI Tech - 04/28/2024 4:00 PM EDT Radiology Service Progress Note PATIENT NAME: Amie Braxton DATE OF SERVICE: April 28, 2024 TIME: 4:05 PM PATIENT IDENTITY VERIFICATION COMPLETED USING TWO (2) IDENTIFIERS: Name and Date of confirmedby patient verbally and Name and Date of confirmed by identification band. FALL SCREENING: Has the patient had 2 falls in the last year or 1 fall with injury or currently using an Ambulatory Assistive Device (Walker, Cane, Wheelchair, Crutches, etc.)? No PATIENT GENDER DATA: Female. status: : No status: NO. PATIENT RELEVANT IMPLANT DATA REVIEWED: Yes PATIENT PRESENTS WITH AN IMPLANTABLE OR ATTACHED POLICE SERGEANT PRECINCT: No RADIOLOGY DEPARTMENT: MR; Exam(s) Completed: Head: Routine Brain PERIPHERAL IV DATA: Not applicable SIGNED BY: WERNER Chisholm April 28, 2024 4:05 PM documented in this encounterK[facility]10-19-2024 NoteHNO ID: [id number] Author: MARTHA CANCINO MRI Tech Service: Radiology Author Type: Second Chef Type: Progress Notes Filed: 04/28/2024 16:08 Note Text: Radiology Service Progress Note PATIENT NAME: Amie Braxton DATE OF SERVICE: April 28, 2024 TIME: 4:05 PM PATIENT IDENTITY VERIFICATION COMPLETED USING TWO (2) IDENTIFIERS: Name and Date of confirmed by patient verbally and Name and Date of confirmed by identification band. FALL SCREENING: Has the patient had 2 falls in the last year or 1 fall with injury or currently using an Ambulatory Assistive Device (Walker, Cane, Wheelchair, Crutches, etc.)? No PATIENT GENDER DATA: Female. status: : No status: NO. PATIENT RELEVANT IMPLANT DATA REVIEWED: Yes PATIENT PRESENTS WITH AN IMPLANTABLE OR ATTACHED POLICE SERGEANT PRECINCT: No RADIOLOGY DEPARTMENT: MR; Exam(s) Completed: Head: Routine Brain PERIPHERAL IV DATA: Not applicable SIGNED BY: WERNER Chisholm April 28, 2024 4:05 PMSelect [facility] [id number] Nurse Note* Jenna Smith RN - 04/27/2024 2:48 PM EDT Physician at bedside to disucss procedure/findngs with patient. [facility]10-18-[facility] Nurse Note* Jenna Smith RN - 04/27/2024 2:48 PM EDT Physician at bedside to disucss procedure/findngs with patient. documented in this encounterK[facility]10-18-2024 Note* Discharge Instr - Nursing - Jenna Smith RN - 04/27/2024 1:48 PM EDT The patient received a copy of EGD discharge instructions that contain information for how to contact the physician who performed the procedure and when to seek medical care. [facility]10-18-2024 Miscellaneous Notes* Discharge Instr - Nursing - Jenna Smith RN - 04/27/2024 1:48 PM EDT The patient received a copy of EGD discharge instructions that contain information for how to contact the physician who performed the procedure and when to seek medical care. documented in this encounterK[facility]10-18-2024 History and physical note * Maximiliano Peterson MD - 04/27/2024 1:00 PM EDT Endoscopy pre-operative H&P H&P completed prior to the start time of the procedure. IMPRESSION AND PLAN HPI: This is a 28 year old female. For EGD for heartburn. Pertinent Review of Systems: GI: See HPI All other reviewed and negative other than HPI. PAST MEDICAL HISTORY: PAST MEDICAL HISTORY Diagnosis Date Asthma Generalized anxiety disorder Seasonal allergies PAST SURGICAL HISTORY: PAST SURGICAL HISTORY Procedure Laterality Date TONSILLECTOMY & ADENOIDECTOMY OBJECTIVE: PHYSICAL EXAM: VITALS: LMP 06/24/2023 (Approximate) General appearance: A&Ox3 Respiratory: Normal chest expansion. No audible wheezes. CVS: No shortness of breath, no extremity edema. Regular pulse. Plan: OK to proceed with endoscopy. SIGNATURE: Maximiliano Peterson MD PATIENT NAME: Amie Braxton [facility] Work Phone: 1([phone]) 906-245010-18-2024 History and physical note* Maximiliano Peterson MD - 04/27/2024 1:00 PM EDT Endoscopy pre-operative H&P H&P completed prior to the start time of the procedure. IMPRESSION AND PLAN HPI: This is a 28 year old female. For EGD for heartburn. Pertinent Review of Systems: GI: See HPI All other reviewed and negative other than HPI. PAST MEDICAL HISTORY: PAST MEDICAL HISTORY Diagnosis Date Asthma Generalized anxiety disorder Seasonal allergies PAST SURGICAL HISTORY: PAST SURGICAL HISTORY Procedure Laterality Date TONSILLECTOMY & ADENOIDECTOMY <AGE 14 OBJECTIVE: PHYSICAL EXAM: VITALS: LMP 06/24/2023 (Approximate) General appearance: A&Ox3 Respiratory: Normal chest expansion. No audible wheezes. CVS: No shortness of breath, no extremity edema. Regular pulse. Plan: OK to proceed with endoscopy. SIGNATURE: Maximiliano Peterson MD PATIENT NAME: Amie Braxton documented in this encounterK[facility]10-18-2024 Telephone encounter Note * Telephone Encounter - Ayaka Chase LPN - 04/27/2024 9:25 AM EDT Spoke with patient about test results and recommendation to use as needed metoprolol for tachycardia/palpitations. Patient verbalizes understanding and is agreeable. Patient reports she is using compression stockings/abdominal binders and hydration. Ayaka Chase LPN [facility]10-18-2024 Miscellaneous Notes* Telephone Encounter - Ayaka Chase LPN - 04/27/2024 9:25 AM EDT Spoke with patient about test results and recommendation to use as needed metoprolol for tachycardia/palpitations. Patient verbalizes understanding and is agreeable. Patient reports she is using compression stockings/abdominal binders and hydration. Ayaka Chase LPN * Telephone Encounter - Sanjana Novoa LPN - 04/27/2024 8:40 AM EDT Left message for Amie Braxton to call [facility] for test results. [facility] phone number provided. Sanjana Novoa LPN * Telephone Encounter - Sanjana Novoa LPN - 04/27/2024 6:57 AM EDT ----- Message from Ramses Pyle MD sent at 04/26/2024 9:09 PM EDT ----- Tilt table test findings were consistent with orthostatic tachycardia (POTS). . Findings are very similar to what I found in my office when I examined her. I can prescribe as needed metoprolol to be used for tachycardia/palpitations she is agreeable. Also please check to see how she is doing with the use of compression stockings/abdominal binders and hydration documented in this encounterK[facility]10-18-2024 Instructions* Patient Instructions* Fely Garcia APRN.COMPUTER OPERATIONS MANAGER - 04/27/2024 9:22 AM EDT - Trial Astelin (azelastine) 1-2 sprays each nostril twice daily as needed - EGD as scheduled on 04/27/24 - CONSULT TO SPEECH THERAPY for vocal cord evaluation - Symbicort 2 puffs twice daily - albuterol 2 puffs every 4 hours as needed - Continue follow-up with pulmonology - Follow-up in 3-4 months or sooner if needed documented in this encounterK[facility]10-18-2024 Telephone encounter Note * Telephone Encounter - Sanjana Novoa LPN - 04/27/2024 8:40 AM EDT Left message for Amie Braxton to call [facility] for test results. [facility] phone number provided. Sanjana Novoa LPN [facility]10-18-[facility] History of Present illness Narrative* Penny Sena, PT - 04/27/2024 8:30 AM EDT Images from the original note were not included. [facility] [address] [place] [id number] Dept: [phone] Dept PHYSICAL THERAPY RE-EVALUATION Patient Name: Amie Braxton : 1995 Date of Service: 04/27/2024 Referring Provider: Jessica Bird APRN - [facility] Visit #: 5 Diagnosis: POTS (postural orthostatic tachycardia syndrome) Mechanism of injury: Pt reports dealing with POTS-symptoms for the last 4.5 years. Pt reports she does not have fainting spells or tachycardia all the time, or orthostatic hypotension/BP drop. Pt reports a normal low BP no matter the position. Pt reports constant dizziness and brain fog with headaches and migraines. When these symptoms are bad, pt reports having static-like vision. Reports tachycardia more related to anxiety/panic attacks and having random spikes despite activity. Pt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 remember any aversions. There no visual changes or dizziness during them. Ibuprofen would not work. There is no family history of migraine. As an afterthought, Ms. Braxton mentions stinging pains in her head which started in February,. It occurs on both sides of her head. Maybe frontally as well. They are random shots of pain in my head in different areas. She admits to stinging being roughly equivalent to stabbing. PAST MEDICAL HISTORY Diagnosis Date Asthma Generalized anxiety disorder Seasonal allergies PAST SURGICAL HISTORY Procedure Laterality Date TONSILLECTOMY & ADENOIDECTOMY Social History Tobacco Use Smoking status: Never Smokeless tobacco: Never Vaping Use Vaping status: Never Used Substance Use Topics Alcohol use: Never Drug use: Never FAMILY HISTORY Problem Relation Age of Onset No Known Problems Mother No Known Problems Father No Known Problems Sister Skin Cancer Maternal Grandmother Diabetes Paternal Grandmother Current Outpatient Medications on File Prior to Visit Medication Sig venlafaxine (EFFEXOR) 37.5 mg tablet Take 1 tablet by mouth two times a day. sucralfate (CARAFATE) 1 gram tablet Take 1 tablet by mouth four times daily. budesonide-formoterol (SYMBICORT) 160-4.5 mcg/actuation inhaler Inhale 2 Puffs as instructed two times a day. albuterol HFA (PROVENTIL HFA, VENTOLIN HFA) 90 mcg/actuation inhaler INHALE 1 TO 2 PUFFS EVERY 4 TO6 HOURS NEEDED FOR WHEEZE FOR UP TO 30 DAYS EPINEPHrine (EPIPEN) 0.3 mg/0.3 mL auto-injector Inject 0.3 mg intramuscularly as needed. Current Facility-Administered Medications on File Prior to Visit Medication cyanocobalamin 1,000 mcg injection The venlafaxine was recently ordered; not yet started. PHYSICAL EXAM General: Alert, conversant, appropriate, young, FEMALE, in no apparent distress, with a 5/10 headache. Vital Signs: BP 112/78 Pulse 73 Ht 152.4 cm (5') Wt 48 kg (105 lb 13.1 oz) LMP 06/24/2023 (Approximate) BMI 20.67 kg/m - reviewed. Head: Mild macroglossia. Neck: Supple, without Lhermitte's sign. Neurologic: Cranial Nerves: No nystagmus is unmasked by the abolition of visual fixation afforded by fundoscopic. Pursuit eye movements normal, without any pathologic nystagmus. Horizontal saccadic eye movements were normal. Head impulse test normal with right and left head turning. Olfaction normal (orange or lemon) to orange extract. Monocular visual weeks intact to finger counting. Funduscopic reveals flat discs. Pupils equal, round and reactive to light. Pursuit eye movements normal. Facial sensation normal to pin. Facies symmetric. Hearing normal to 1024 Hz tuning fork. Palatal movement, phonation, and resonation normal. Trapezius and SCM 5/5 and symmetric. Tongue movement symmetric. Sensory: Normal on testing pin, vibration, and joint position sense. Simultaneous light touch of the hands found no extinction. Motor: Strength was 5/5 and symmetric on testing finger abduction, finger extension, elbow flexion, elbow extension, shoulder abduction, toe dorsiflexion, ankle dorsiflexion, ankle plantar flexion, knee flexion, knee extension, and hip flexion. Tone was normal. Posture was normal. There was no atrophy. There were no fasciculations. There wereno involuntary movements. Coordination: Neneoc-squn-fhvzus was normal. Finger and toe wiggling rapid alternating movements were normal. Standing in Romberg's position with eyes open and closed was normal. Tandem gait was normal. Gait: Normal. Deep Tendon Reflexes: Plantars were flexor bilaterally. Biceps 3- and symmetric (mild spread to finger flexors bilaterally). Triceps 2 and symmetric. Patellar 2 and symmetric. Achilles 2+ and symmetric (elicitable by dorsiflexion). Mental Status: MMSE 28/30 - (she is off by one on the date when pressed to guess the exact date; she gives the [facility] as [place] - which is where she lives. She was very slow to recall the 3 intermediate recall items - which actually makes the task harder - no points off for that). IMPRESSION AND PLAN: Stabbing headaches - often a concomitant of migraine, but other times a trigeminal autonomic cephalalgia, necessitating exclusion of a hypothalamic or pituitary lesion. Aspects of her headaches post-[place] and prior to the bahai of the superimposed stabbing headaches include anterior predominance, severity, thumping quality, nausea, aversion to stimulation, visual distortions, and dizziness. She also may have PPPV - the hustle and bustle of the supermarket causes her to be dizzy - My brain feels overwhelmed - when you're in a market there's so many things going on. Diagnostically, I will pursue an MRI brain due to her stabbing headaches, on premise that it might be primary stabbing headaches. If it proves negative, treating the stabbing headaches as a form of migraine is a viable diagnosis of exclusion. I do not think, on account of their frequency, that her headaches can be treated symptomatically, as this will precipitate analgesic rebound headaches - if this is not already the case (OTC's no longer work as of 2 years ago). With regard to treatment, there are competing priorities here, in the sense that I think she has frequent migraines, and that may cause difficulty concentrating - brain fog - but the two most effective ordinary migraine preventives (as opposed to the new CGRP receptor antagonists) are propranolol and topiramate; and she is asthmatic. Topiramate can cause brain fog, but in a minority of individuals. We discussed the importance of preventing on topiramate because of the increased frequency of defects; she voices understanding; Topiramate may cause difficulty thinking - usually in the form of word finding difficulty. It is reversible on discontinuing the drug. It frequentlycauses tingling in the lips, fingers and toes for the first couple of months of treatment. It sometimes causes a change in the taste of food; in particular, carbonated beverages may taste metallic. It can also cause decreased appetite. Three percent of patients taking topiramate experience urolithiasis; it is thought that drinking water liberally reduces the likelihood of this happening. She willincrease the dose by 25 mg per week to a maintenance dose of 50 mg bid. I will see her in about 6 weeks in follow up. If prevention of her headaches is successful, but her dizziness persists, we can pursue cognitive behavioral therapy with Dr. Joann Braxton as for PPPV. Sincerely, Daniel Mauro MD Staff, General Neurology I spent 71 minutes in this visit face to face with the patient, with more than 50% of the time devoted to patient counseling with regard to the impression, patient education, interpretation of the studies, the diagnosis, treatment options, theneed for further diagnostic testing, and coordination ofcare. [facility] History and physical note* Daniel Mauro MD - 04/02/2024 12:48 PM EDT 08:05 - 09:16 Chart Review Parenthetic [comments] and tinted emphasis mine. When last seen, 10/12/21, my impression was: As the first order of business, the patient will find out what she can about the 2 parasitic infections she contracted while in [place]; one of them food borne, the other contracted by walking barefoot in the water. I will check her vitamin B12, folate, and thiamine levels. She has lost weight from poor appetite since being sick, and could be deficient. Depending upon the above two things, I may want to refer Amie for neuropsychologic testing. I do not find anything on neurologic examination to prompt me to order brain imaging, but will havea low threshold for doing so, given the murky history of parasitosis. I will decide when we have found out what we can about the parasites. I may also refer her to ID / Travel medicine. She will contact me by Corinna. Office follow up will depend upon what the above inquiries find. ------ 11/28/21 Corinna: I recently saw your message about the parasite question. We never found out what it was, however my mom reminded me that it was never truly confirmed. I personally doubt that my current condition isrelated to my stomach problem. I believe this to be something else, which has gotten severely worse. I wanted to reach out to see if it was possible to schedule an MRI scan for my brain. My symptoms have gotten so much worse and it's gotten to the point where I can't drive or socialize without getting severe migraines. My life has become stagnant, since I'm no longer able to function normally without increased pain or pressure in my skull. Please let me know if this would be possible to scheduleASAP. Thank you so much! ------ Vitamin B12 was normal on 10/12/21 at 517, but since has fallen to 273 (low normal) as of 02/16/24. At [facility] on 03/01/24, it had fallen to frankly deficient at 214. Thiamine was normal on 10/12/21 at 177.4 Folate was normal at >20. On 10/12/21. ====== I do not know why there was no reply from me from the 11/28/21 [employer] message. ====== Problem List and Medication List reviewed. ====== With that preamble, Amie is here with her boyfriend. Amie tells me there has been no clear evidence of parasitosis. She had CoVid 3 months before she first saw him. She first became ill travelling to [facility] - abdominal cramps, nausea. She left there when CoVid hit. That was 4.5 years ago. She couldn't keep food down on returning home. The stomach issues consisted of stomach cramps and nausea; those subsided in 2020. Her neurologic symptoms started right after she contracted CoVid, end of 2019/early 2020. At firstit was just brain fog. After the pulmonary symptoms, she couldn't think clearly. She worked for a [employer] working on its [employer]. 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 She forgot to lock the door one day (no-one broke in). Outside of work, she would zone out having conversations with people. If she thought too hard, she would suffer severe headaches (thumping) with associated dizziness (I feel like I'm moving - kind of like a swaying or otoe-missouria). These symptoms continue. 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 She has been ableto function. She never forgets to be there. She does not drive because it makes her dizzy. (She hasa dull headache almost always). She has gotten dizzy in the supermarket. My brain feels overwhelmed - when you're in a market there's so many things going on. She admits to getting dizzy in crowds in general. She is sometimes nauseated by the headaches. They are typically bilateral, anterior headaches; there is also tension in her neck. She is averse to stimulation - light, sound, head movement, odors. (She reminds me that we didn't get to visual changes as I was musing over where I had written them down) - static vision - like static on a TV - grainier - like the pixels of her visionare larger. Colors are more intense. If she visually focuses on something, everything in its surround blurs, and she gets dizzier, as if she might black out - she must shift vision at these. She isnot certain whether OTC's helped, but by 2 years ago, at least, they were no longer effective. She d enies pulsatile tinnitus. She had no history of migraine per se prior to visiting [facility]. She did get headaches, rarely. She cannot remember what part of her head they were in, but were a dull ache, like if you don't drinkenough water. She was not nauseated, and does not remember any aversions. There no visual changes or dizziness during them. Ibuprofen would not work. There is no family history of migraine. As an afterthought, Ms. Braxton mentions stinging pains in her head which started in February,. It occurs on both sides of her head. Maybe frontally as well. They are random shots of pain in my head in different areas. She admits to stinging being roughly equivalent to stabbing. PAST MEDICAL HISTORY Diagnosis Date Asthma Generalized anxiety disorder Seasonal allergies PAST SURGICAL HISTORY Procedure Laterality Date TONSILLECTOMY & ADENOIDECTOMY <AGE 14 Social History Tobacco Use Smoking status: Never Smokeless tobacco: Never Vaping Use Vaping status: Never Used Substance Use Topics Alcohol use: Never Drug use: Never FAMILY HISTORY Problem Relation Age of Onset No Known Problems Mother No Known Problems Father No Known Problems Sister Skin Cancer Maternal Grandmother Diabetes Paternal Grandmother Current Outpatient Medications on File Prior to Visit Medication Sig venlafaxine (EFFEXOR) 37.5 mg tablet Take 1 tablet by mouth two times a day. sucralfate (CARAFATE) 1 gram tablet Take 1 tablet by mouth four times daily. budesonide-formoterol (SYMBICORT) 160-4.5 mcg/actuation inhaler Inhale 2 Puffs as instructed two times a day. albuterol HFA (PROVENTIL HFA, VENTOLIN HFA) 90 mcg/actuation inhaler INHALE 1 TO 2 PUFFS EVERY 4 TO6 HOURS NEEDED FOR WHEEZE FOR UP TO 30 DAYS EPINEPHrine (EPIPEN) 0.3 mg/0.3 mL auto-injector Inject 0.3 mg intramuscularly as needed. Current Facility-Administered Medications on File Prior to Visit Medication cyanocobalamin 1,000 mcg injection The venlafaxine was recently ordered; not yet started. PHYSICAL EXAM General: Alert, conversant, appropriate, young, FEMALE, in no apparent distress, with a 5/10 headache. Vital Signs: BP 112/78 Pulse 73 Ht 152.4 cm (5') Wt 48 kg (105 lb 13.1 oz) LMP 06/24/2023 (Approximate) BMI 20.67 kg/m - reviewed. Head: Mild macroglossia. Neck: Supple, without Lhermitte's sign. Neurologic: Cranial Nerves: No nystagmus is unmasked by the abolition of visual fixation afforded by fundoscopic. Pursuit eye movements normal, without any pathologic nystagmus. Horizontal saccadic eye movements were normal. Head impulse test normal with right and left head turning. Olfaction normal (orange or lemon) to orange extract. Monocular visual weeks intact to finger counting. Funduscopic reveals flat discs. Pupils equal, round and reactive to light. Pursuit eye movements normal. Facial sensation normal to pin. Facies symmetric. Hearing normal to 1024 Hz tuning fork. Palatal movement, phonation, and resonation normal. Trapezius and SCM 5/5 and symmetric. Tongue movement symmetric. Sensory: Normal on testing pin, vibration, and joint position sense. Simultaneous light touch of the hands found no extinction. Motor: Strength was 5/5 and symmetric on testing finger abduction, finger extension, elbow flexion, elbow extension, shoulder abduction, toe dorsiflexion, ankle dorsiflexion, ankle plantar flexion, knee flexion, knee extension, and hip flexion. Tone was normal. Posture was normal. There was no atrophy. There were no fasciculations. There wereno involuntary movements. Coordination: Mqjjeq-yuck-imlwhf was normal. Finger and toe wiggling rapid alternating movements were normal. Standing in Romberg's position with eyes open and closed was normal. Tandem gait was normal. Gait: Normal. Deep Tendon Reflexes: Plantars were flexor bilaterally. Biceps 3- and symmetric (mild spread to finger flexors bilaterally). Triceps 2 and symmetric. Patellar 2 and symmetric. Achilles 2+ and symmetric (elicitable by dorsiflexion). Mental Status: MMSE 28/30 - (she is off by one on the date when pressed to guess the exact date; she gives the county as [place] - which is where [place]. She was very slow to recall the 3 intermediate recall items - which actually makes the task harder - no points off for that). IMPRESSION AND PLAN: Stabbing headaches - often a concomitant of migraine, but other times a trigeminal autonomic cephalalgia, necessitating exclusion of a hypothalamic or pituitary lesion. Aspects of her headaches post-[place] and prior to the bahai of the superimposed stabbing headaches include anterior predominance, severity, thumping quality, nausea, aversion to stimulation, visual distortions, and dizziness. She also may have PPPV - the hustle and bustle of the supermarket causes her to be dizzy - My brain feels overwhelmed - when you're in a market there's so many things going on. Diagnostically, I will pursue an MRI brain due to her stabbing headaches, on premise that it might be primary stabbing headaches. If it proves negative, treating the stabbing headaches as a form of migraine is a viable diagnosis of exclusion. I do not think, on account of their frequency, that her headaches can be treated symptomatically, as this will precipitate analgesic rebound headaches - if this is not already the case (OTC's no longer work as of 2 years ago). With regard to treatment, there are competing priorities here, in the sense that I think she has frequent migraines, and that may cause difficulty concentrating - brain fog - but the two most effective ordinary migraine preventives (as opposed to the new CGRP receptor antagonists) are propranolol and topiramate; and she is asthmatic. Topiramate can cause brain fog, but in a minority of individuals. We discussed the importance of preventing on topiramate because of the increased frequency of defects; she voices understanding; Topiramate may cause difficulty thinking - usually in the form of word finding difficulty. It is reversible on discontinuing the drug. It frequentlycauses tingling in the lips, fingers and toes for the first couple of months of treatment. It sometimes causes a change in the taste of food; in particular, carbonated beverages may taste metallic. It can also cause decreased appetite. Three percent of patients taking topiramate experience urolithiasis; it is thought that drinking water liberally reduces the likelihood of this happening. She willincrease the dose by 25 mg per week to a maintenance dose of 50 mg bid. I will see her in about 6 weeks in follow up. If prevention of her headaches is successful, but her dizziness persists, we can pursue cognitive behavioral therapy with Dr. Joann Braxton as for PPPV. Sincerely, Daniel Mauro MD Staff, General Neurology I spent 71 minutes in this visit face to face with the patient, with more than 50% of the time devoted to patient counseling with regard to the impression, patient education, interpretation of the studies, the diagnosis, treatment options, theneed for further diagnostic testing, and coordination ofcare. [facility] Tele[facility] encounter Note * Telephone Encounter - Boubacar Sky APRN.CNP - 03/30/2024 1:55 PM EDT I wrote for twice a day dosing, have her take it once a day for the first week then increase to twice a day dosing. Boubacar Sky APRN.CNP March 30, 2024 1:55 PM [facility]09-20-2024 Miscellaneous Notes* Telephone Encounter - Boubacar Sky APRN.CNP - 03/30/2024 1:55 PM EDT I wrote for twice a day dosing, have her take it once a day for the first week then increase to twice a day dosing. Boubacar Sky APRN.CNP March 30, 2024 1:55 PM * Telephone Encounter - Alsiha Granados LPN - 03/30/2024 1:48 PM EDT Patient states she can not take the gel caps on medication because of whatever the capsule is made of she is asking if you can resend in the Effexor as a tablet. And as far as the cymbalta is also was a gel cap that is why she was not able to take that as well. Thank you [facility] Telephone encounter Note * Telephone Encounter - Alisha Granados LPN - 03/30/2024 1:48 PM EDT Patient states she can not take the gel caps on medication because of whatever the capsule is made of she is asking if you can resend in the Effexor as a tablet. And as far as the cymbalta is also was a gel cap that is why she was not able to take that as well. Thank you [facility]-19-2024 Instructions* Patient Instructions* Ramses Pyle MD - 03/29/2024 3:06 PM EDT Postural tachycardia syndrome All topics are updated as new evidence becomes available and our peer review process is complete. Literature review current through: Jun 2018. This topic last updated: Sep 10, 2014. INTRODUCTION AND TERMINOLOGY -- Symptomatic falls in blood pressure after standing or eating are a frequent clinical problem, particularly in the elderly. The symptoms are often due to cerebral hypoperfusion and include generalized weakness, dizziness or lightheadedness, visual blurring or darkening of the visual weeks, and, in severe cases, loss of consciousness. These patients often have a decrease in sympathetic activity that leads to systemic hypotension with standing. Another form of orthostatic intolerance occurs in patients, particularly younger adults and children, who consistently or frequently experience symptoms of orthostatic intolerance in response to postural stressors. Autonomic reflexes are relatively preserved in these patients, and orthostatic hypotension and syncope rarely occur. Some patients may have slightly elevated blood pressure. The hallmark of this disorder is an exaggerated heart rate increase in response to postural change. This disorder has been called the postural tachycardia syndrome or POTS The nosology of POTS is confusing; several similar terms have been used to describe the disorder: ?Chronic orthostatic intolerance ?Mild orthostatic intolerance ?Orthostatic tachycardia ?Sympathotonic orthostatic hypotension ?Hyperdynamic beta adrenergic state ?Idiopathic hypovolemia ?Mitral valve prolapse syndrome ?Neurocirculatory asthenia ?Irritable heart ?Wabash's heart ?Effort syndrome This topic will review the clinical features, diagnosis, etiology, and treatment of POTS. EPIDEMIOLOGY -- The postural tachycardia syndrome (POTS) is the most prevalent form of orthostatic intolerance. It is estimated that 500,000 Americans suffer from this disorder. It is the most commonsyndrome of young people seen in autonomic dysfunction clinics. Patients present at a relatively young age (14 to 45 years). Women predominate among patients with POTS with a female to male ratio of 4-5:1. The reason for this is not known, however, observed gender differences in muscle sympathetic nerve discharge characteristics and decreased stroke volume in healthy patients may explain why women are more likely to develop POTS. ETIOLOGY -- The etiology of postural tachycardia syndrome (POTS) is heterogeneous. Investigators have reported a number of different abnormalities in patients with POTS. It remains uncertain as to which of these abnormalities are primary and causative and which are secondary. Some of the proposed me chanisms discussed below are complementary. Distal denervation -- Several clinical and empiric observations suggest the presence of distal, predominantly lower extremity, denervation with preserved cardiac innervation in this disorder. These findings include: ?Lower extremity anhidrosis ?Impaired norepinephrine spillover in the lower extremities, which refers to the measured rate of entry of norepinephrine into the femoral vein in response to various stimuli: sodium nitroprusside infusion, tyramine infusion, the cold pressor test ?Decreased muscle sympathetic nerve activity recruitment in the lower extremity in response to a nitroprusside-induced hypotensive stimulus ?Abnormal quantitative sudomotor axon reflex test, indicating postganglionic sympathetic dysfunction ?Decreased intraepidermal nerve fiber density on skin biopsy These may result from an underlying autonomic neuropathy that may be postviral or immune-mediated in origin . The clinical observation that many cases originate after systemic infection lends some support to this possibility, as does the finding of ganglionic acetylcholine receptor antibody in somepatients. Hypovolemia -- Patients with POTS frequently experience symptomatic improvement with saline infusion. Additional evidence of a decrease and/or redistribution of blood volume is observed in several studies of patients with POTS, which have noted: ?Hypovolemia ?Trend toward hypovolemia ?Reduced erythrocyte volume ?Excessive venous pooling with redistributive hypovolemia The underlying cause of the hypovolemia is uncertain. These deficits may be accompanied by impairment of the txprd-fltvtlygcvh-reclwlkepok system. In some investigations, despite a relative plasma volume depletion at rest, POTS patients did not have increased plasma renin activity and did have significantly reduced plasma aldosterone compared with controls . These observations, combined with the finding of reduced red blood cell volume, has led some investigators to suggest that a renal disorder, perhaps renal denervation, may play a primary role in the etiology of POTS . Alternatively, mild volume constriction may be a secondary phenomenon, the result of chronic sympathetic activation Changes in venous function -- Abnormal venous function with decreased venous return on assumption of the upright posture could stimulate a compensatory tachycardia in order to maintain cardiac output. There is conflicting evidence on the changes in venous function in POTS. In some case series, antishock trousers have been shown to attenuate orthostatic tachycardia in the majority of patients. There are also reports of decreased stroke volume on assuming upright posture , excessive venous pooling, and venous denervation in patients with POTS. However, empiric measurements of venous compliance have been normal or decreased. The latter apparently discordant data may relate to the presence of microvascular transudation in some patients, which may both reduce venous compliance and contribute to venous pooling. Abnormal venous function may be the result of sympathetic denervation in the legs, or elevated levels of circulating or locally released vasodilators. Cardiovascular deconditioning -- A number of studies have associated POTS with cardiovascular deconditioning. In one study of 84 patients with POTS, 90 percent were found to have reduced maximum oxygen uptake, evidence of deconditioning, during exercise. Another study reported that patients with POTS had smaller left ventricular size compared with controls. While some suggest that cardiovascular deconditioning play a central role in the pathophysiology of POTS, a causal role has not been provenand it is not clear whether deconditioning is a primary or secondary phenomenon in POTS patients . Baroreflex abnormalities -- The increase in heart rate without blood pressure change upon standing in POTS suggests a primary abnormality in baroreflex control. There is additional evidence of an attenuated vagal baroreflex response in POTS, as measured by changes in heart rate variability in response to Valsalva maneuver and lower body negative pressure. Increased sympathetic activity -- Increased sympathetic activity is the final common pathway of most proposed mechanisms in POTS. Some investigators suggest that increased sympathetic activation (hyperadrenergic state) may be a primary etiologic factor in POTS, as suggested by the following observations in some case series: ?Elevated arterial norepinephrine (NE) levels at rest ?Decreased NE clearance ?Increased resting heart rate in patients compared with controls ?An exaggerated heart rate response to isoproterenol infusion, suggestive of adrenoreceptor hypersensitivity ?Larger amplitude sympathetic bursts observed in peroneal nerve recordings during rest that, in contrast to controls, does not change during hypotension Genetic abnormalities -- In one large series, 12.5 percent of 152 patients with POTS reported a family history of orthostatic intolerance . In one family, a mutation was identified in the gene encoding the norepinephrine transporter, whichhas a pivotal role in norepinephrine uptake at the synaptic cleft. Impaired norepinephrine clearance may contribute to excessive sympathetic activation, and the observed clinical manifestations of POTS. This finding, while not applicable to most POTS patients, supports a primary etiologic role for excessive sympathetic activation, at least in some patients. Polymorphisms in genes encoding nitric oxide synthase and the beta-2 adrenoreceptor may also play arole in the rashi of the postural tachycardia syndrome in some patients. Associated disorders -- The chronic fatigue and the mitral valve prolapse syndromes have clinical features which overlap with this one . Mast cell activation abnormalities (eg, episodes of flushing associated with abnormal increases in urine methylhistamine) have also been noted in some patients with POTS . Vasoactive compounds such as histamine are released in mast cell activation and may contribute to clinical manifestations. Alternatively, evidence of mast cell activation in POTS may be a secondary (stress-induced) phenomenon. POTS has also been associated with Rhoda-Danlos syndrome and joint hypermobility disorders . CLINICAL FEATURES -- Patients with postural tachycardia syndrome (POTS) report dizziness, lightheadedness, weakness, blurred vision, and fatigue upon standing. Other predominantly orthostatic symptoms include palpitations, tremulousness, and anxiety. Gastrointestinal symptoms such as nausea, abdominal cramps, early satiety, bloating, constipation, and diarrhea may be particularly problematic in some . There may also be evidence of venous pooling, as manifested by acrocyanosis and edema when upright. Syncope is relatively unusual, but does occur in about 40 percent of patients . Many patients with POTS report chronic headaches, which are sometimes exacerbated by postural change . The symptoms may appear abruptly, often after a viral illness; others experience a more insidious onset . The severity of symptoms is also quite variable. Some patients experience only mild symptoms and often only in the setting of additional orthostatic stress (eg, menstrual cycle, relative dehydration). Others are profoundly incapacitated. The course of the disorder may be self limited or may follow a relapsing remitting course over several years. The pathogenesis of the symptoms in POTS is largely unelucidated. Interventions that successfully attenuate the tachycardia do not always bring symptomatic relief. Some of the symptoms suggest cerebral hypoperfusion despite normal systemic blood pressure. However, there is no definitive evidence ofabnormal cerebral blood flow or deficient cerebral autoregulation in patients with POTS . DIAGNOSIS -- The characteristic autonomic abnormality in patients with postural tachycardia syndrome (POTS) is an exaggerated increase in heart rate on tilt table testing or standing. Diagnostic criteria from several laboratories have in common a sustained heart rate increase of greater than 30 beats per minute or an increase to 120 beats per minute or greater within the first 10 minutes of tilt . There is usually no orthostatic hypotension . Different criteria might be more appropriate in children and adolescents. In one series of children8 to 19 years old, many normal control children were found to have the changes described above in adults. In this series, criteria that discriminated between patients and controls were: for children <14 years, a sustained heart rate increase of greater than 40 beats per minute or an increase to 130 beats per minute or greater within the first five minutes of tilt, and for children 14 to 19 years, a sustained heart rate increase of greater than 40 beats per minute or an increase to 120 beats per minute or greater within the first five minutes of tilt. These abnormalities may be accompanied by an increase in venous plasma norepinephrine levels at rest and especially upon standing (>600 ng/mL). However, it is not clear what the sensitivity or specificity of this abnormality is for POTS. In one case series of 58 patients whom met clinical criteria for POTS, just 20 percent had abnormal levels .Similarly, some patients with POTS have low 24-hour sodium excretion (<100 mEq) . Such patients may benefit from salt supplementation. (See 'Treatment' below.) DIFFERENTIAL DIAGNOSIS -- Autonomic neuropathies, central dysautonomias, bedrest deconditioning, side effects of medications, and dehydration can produce similar symptoms to POTS. Ruling out these conditions is essential to making a diagnosis of POTS. In most cases, historical information and a neurologic examination specifically looking for other evidence of autonomic failure, neuropathy, and extrapyramidal signs, will provide evidence of the underlying disorder. Patients with POTS may be thought to have panic, anxiety, somatization disorder, or chronic fatiguesyndrome (CFS), also known as myalgic encephalomyelitis/chronic fatigue syndrome (ME/CFS), in part because of the vague nature of the symptoms. In fact, patients with POTS report subjective cognitivedysfunction and have objectively increased scores on inattention scales, and may have an increased prevalence of depression or anxiety . The prominent postural nature of the symptoms should prompt the clinician to look for the diagnostic heart rate response. The syndrome of inappropriate sinus tachycardia is characterized by an elevated heart rate that is not influenced by postural changes. This disorder is discussed separately. (See Sinus tachycardia: Evaluation and management, section on 'Inappropriate sinus tachycardia'.) TREATMENT -- The optimal therapy of postural tachycardia syndrome (POTS) is uncertain. No intervention has been systematically studied. The placebo effect may be substantial in POTS, highlighting theneed for controlled studies. Nonpharmacologic measures -- Exacerbating factors, medications, dehydration, and inactivity should be avoided. Some clinicians advocate that exercise training should have a central role in treatment of POTS . In one study of 31 patients with orthostatic intolerance, patients in the group randomized to a jogging program were less likely to have residual symptoms after three months compared with controls (37 versus 91 percent) . Observational studies have reported that a three month exercise training in 19 patients with POTS was associated with attenuated plasma renin and aldosterone increases during standing, improved quality of life, and improved physical fitness and cardiovascular response to exercise Because many patients with POTS have a low plasma volume, correction with oral volume expansion, a high salt diet, and fludrocortisone, a mineralocorticoid receptor agonist may improve symptoms . This regimen is similar to that used in orthostatic hypotension. In one case series, measured 24-hour urinary sodium excretion (targeting > 124 mmol/24 hours) appeared to be an effective means of monitoring response to salt supplementation. Some patients report symptomatic benefit with acute ingestion of 16 oz of water and from a saline infusion of 500 to 2000 cc, corresponding to objective improvement in tilt testing response . However, it is not clear that this translates to a similar therapeutic response with chronic treatment. Medications -- There have not been termite control servicer, high quality trials testing the efficacy of any pharmacologic approach in POTS. All suggested medications are off label . Fludrocortisone (eg, 0.05 to 0.2 mg per day) is most effective when combined with increased salt and water intake. Treatment may be complicated by supine hypertension, fluid retention, and hypokalemia and should be monitored closely. Because of these adverse events and the unknown consequences of chronic mineralocorticoid receptor agonism, lower doses are preferable. Adrenoreceptor agonists may be helpful in some patients (eg, midodrine 2.5 to 10 mg three times daily). Both intravenous phenylephrine and oral midodrine have been associated with improved symptoms and heart rate response in some patients during tilt testing. However, benefit from chronic therapy is not established. Preliminary evidence suggests that the acetylcholinesterase inhibitor pyridostigmine (30 mg daily) may attenuate the tachycardia and improve symptoms. Further confirmation from larger trials is needed to establish the benefit of acetylcholinesterase inhibition for POTS. Some patients, particularly those troubled by prominent adrenergic symptoms, may benefit from beta blocking agents. These should be started in low doses and increased gradually (eg, propranolol 20 to30 mg three or four times daily). In one placebo-controlled, randomized crossover study, a single low-dose of oral propranolol (20 mg) was associated with improved tachycardia and reduced symptoms, while higher dose propranolol (80 mg) was associated with unchanged or worsened symptoms . In anotherplacebo-controlled investigation in 11 patients with POTS, treatment with propranolol 20 mg one hour prior to exercise on a semirecumbent bicycle was associated with improved peak oxygen consumption,a measure of exercise capacity . As with other agents, positive effects on symptoms and tilt testing response in the short term have been reported with propranolol, but termite control servicer benefit remains uncertain. Clonidine, methyldopa, phenobarbital, erythropoietin, and selective serotonin reuptake inhibitors (SSRIs) are used rarely in POTS. Sinus node ablation is not effective; although the sinus rate is effectively slowed, there is no significant improvement in clinical symptoms . PROGNOSIS -- Most patients with POTS have a favorable prognosis. In one case series of 58 patients,most had improved symptoms at one-year followup and more than one-third no longer met diagnostic criteria for POTS. SUMMARY AND RECOMMENDATIONS ?The postural tachycardia syndrome (POTS) is defined as a form of orthostatic intolerance characterized by an excessive increase in heart rate that occurs on standing without arterial hypotension (see 'Introduction and terminology' above). ?The etiology of POTS is not clear, but the disorder may be heterogeneous. Abnormalities in autonomic regulation that may either be genetic or acquired are described. Proposed mechanisms include partial sympathetic denervation leading to discordant cardiac and vascular sympathetic control, hypovolemia and impairment of the ujrih-gfpxwyxbter-nmlbigzmbjw system, venous abnormalities and baroreflex dysfunction (see 'Etiology' above). ?The clinical symptoms of POTS are varied and nonspecific, and include dizziness, lightheadedness, weakness, blurred vision, and fatigue upon standing. The orthostatic nature of the symptoms is the primary clue to the diagnosis. (See 'Clinical features' above.) ?The diagnosis of POTS is established from the history and head-up tilt testing which demonstrates a heart rate increase of >30 bpm over baseline or to >120 bpm. Dehydration, prolonged bedrest,medications, and other dysautonomias should be excluded as etiologies (see 'Diagnosis' above and 'Differential diagnosis' above). ?The optimal therapy of POTS is not established. Patients should avoid precipitating factors, and physical activity should be encouraged. We suggest volume repletion and fludrocortisone (0.05 to 0.2 mg per day) as the first line of therapy (Grade 2C). Some patients may benefit from midodrine or beta blocking agents. Other therapies remain under investigation, and further confirmation of benefit is needed before they can be recommended (see 'Treatment' above). documented in this [facility] History of Present illness Narrative* Ramses Pyle MD - 03/29/2024 2:38 PM EDT PRIMARY CARE PHYSICIAN: Boubacar Sky [address] [place] [address] REFERRING PHYSICIAN: SELF CHIEF COMPLAINT: Patient presents with: New Patient: Self referred. Recently dx with POCS HPI: Ms Braxton was kindly referred to me by VANGIE Yang. From a cardiac standpoint, she has a history of asthma, migraines, polycystic ovarian disease, and seasonal allergies. She has had a longstanding history of dizzy spells, particularly worse within the last 5 years. She was admitted to [facility] in February 2024 with an episode of chest discomfort. Apparently she developed a popping sensation in her chest, following which she developed burning, stinging midsternal chest discomfort. Her heart rate was in the 150s, and she had some diffuse ST depressions. [facility]from the emergency room at [facility] to the main campus of [facility]. Her troponins and N-terminal proBNP levels were normal. She underwent an echocardiogram, which revealed an LV ejection fraction of 57%, normal right ventricular size, systolic function, without significant valvular abnormalities. She also underwent a maximal stress test, and this was negative for inducible ischemia at 86% of her maximum predicted heart rate. Her blood pressure response was somewhat blunted, but her heartrate demonstrated a normal response to exercise stress. She was discharged to go home with a diagnosis of POTS. She was seen in follow-up by Jessica Ambriz APN. Fludrocortisone was prescribed. Patient to see me for an opinion about her diagnosis of POTS. She mentioned that she has tried everything including hydration, compression stockings, fludrocortisone without any improvement in her dizziness. She denies overt dizziness sensation describes more of an unsteady feeling, with a feeling of blood rushing to the head with her dizzy spells. She has had 1 syncopal spell about 4 years back when she was driving. She could not tell me about any triggers for the spells. She typically described a prodrome where she felt warm, flushed and felt the presyncopal spell coming on. She also mentioned that she felt very fatigued for the rest of the day. She is not aware of a family history of sudden . PAST MEDICAL HISTORY Diagnosis Date Asthma Generalized anxiety disorder Seasonal allergies PAST SURGICAL HISTORY Procedure Laterality Date TONSILLECTOMY & ADENOIDECTOMY <AGE 14 SOCIAL HISTORY Social History Tobacco Use Smoking status: Never Smokeless tobacco: Never Vaping Use Vaping status: Never Used Substance Use Topics Alcohol use: Never Drug use: Never FAMILY HISTORY Problem Relation Age of Onset No Known Problems Mother No Known Problems Father No Known Problems Sister Skin Cancer Maternal Grandmother Diabetes Paternal Grandmother ALLERGIES: ALLERGIES Allergen Reactions Beef Containing Pro* Intolerance migraines Migraines, upset stomach Beef Derived (Bovin* Hives Beta-Blockers (Beta* Contraindication-Medical Surgical Patient carries Epipen for pineapple allergy. Egg Derived GI Upset Vomiting even with ingredient of egg Milk Containing Pro* Intolerance, Hives Vomiting. Pineapple Hives, Swelling Hives, difficulty breathing Soy GI Upset vomiting Tree Nuts Other: See Comments Asthma flaring, difficulty breathing Vancomycin Analogues Hives MEDICATIONS: venlafaxine ER (EFFEXOR XR) 37.5 mg 24 hr capsule^Take 1 capsule by mouth once daily.^Disp: 30 capsule^Rfl: 0 sucralfate (CARAFATE) 1 gram tablet^Take 1 tablet by mouth four times daily.^Disp: 120 tablet^Rfl: 0 budesonide-formoterol (SYMBICORT) 160-4.5 mcg/actuation inhaler^Inhale 2 Puffs as instructed two times a day.^Disp: 10.2 g^Rfl: 5 albuterol HFA (PROVENTIL HFA, VENTOLIN HFA) 90 mcg/actuation inhaler^INHALE 1 TO 2 PUFFS EVERY 4 TO6 HOURS NEEDED FOR WHEEZE FOR UP TO 30 DAYS^Disp: ^Rfl: EPINEPHrine (EPIPEN) 0.3 mg/0.3 mL auto-injector^Inject 0.3 mg intramuscularly as needed.^Disp: ^Rfl: REVIEW OF SYSTEMS: GENERAL: Negative for:Weight loss and Weight gain HEENT: Negative for:Nosebleeds RESPIRATORY: Negative for:Shortness of breath GASTROINTESTINAL: Negative for:Blood in stool MUSCULOSKELETAL: Negtive for: Muscle or joint pain, stiffness, Joint swelling SKIN: No rash HEMATOLOGICAL/LYMPHATIC: Negative for: Easy bruising and Easy bleeding CARDIOVASCULAR: As stated in HPI. 10 system review negative except as stated in HPI I have confirmed and edited as necessary, the Past, Family, Social History and Review Of Systems, obtained by my office staff. PHYSICAL EXAMINATION: BP 116/65 Pulse 84 Resp 12 Ht 5' 0 (1.52m) Wt 105 lb 3.2 oz (47.7kg) SpO2 99[room air]% LMP 06/24/2023 BMI 20.55 kg/(m^2). Lying 124/77, 81 Sitting 119/83, 84 Standing 118/77, 105 General: Well appearing, in no acute distress, speaking in complete sentences., Well appearing. Psych: Normal Affect Eyes: No subconjunctival hemorrhage Skin: No rash, bruising Oropharynx: Mucous membranes normal Neck: no jugular venous distention, no carotid bruits. Lymph: No cervical lymphadenopathy Lungs: Clear to auscultation bilaterally, no wheezing or rhonchi. Heart: S1, S2 normal, no murmur Extremities: No peripheral edema Neuro: Grossly nonfocal ASSESSMENT/PLAN: 1. Migraine with aura and without status migrainosus, not intractable - ICD9: 346.00, ICD10: G43.109 She is currently not on triptans. 2. Syncope, unspecified syncope type - ICD9: 780.2, ICD10: R55 As described above, she has only had 1 syncopal spell, but she was driving. She does remember feeling quite warm before she passed out. She has not had any recurrences of these episodes. 3. Dizziness - ICD9: 780.4, ICD10: R42 Her dizzy spells are more suggestive of a vasovagal etiology based on the description of the spell.This being said we do not have any documentation of her blood pressures during those spells. When I checked her for orthostasis in my office today, she did not drop her blood pressures when she went from lying to sitting to standing positions. Interestingly, her heart rates did go up by about 24 beats when she went to the standing position from sitting position. I told her that the diagnostic criteria for POTS include an increase in the heart rate by more than 30 bpm upon standing. She did not quite meet the diagnostic cutoff, but was very close. I discussed the symptomatic management of POTS including hydration, compression stockings, abdominal binders. I also asked her to hydrate herself using an electrolyte solution such as Gatorade 0/Powerade 0 so she does not get the added sugars. She has already received a prescription for physical therapy for POTS. I also asked her to work on the [facility] POTS exercise regime. I ordered a 2-week patch monitor for her, and a tilt table test. Described hydration, compression stockings/abdominal binders, if she has no benefit, I will refer her to the main [facility] for further evaluation. Ramses Pyle MD The above note was partially created using a dictation recognition software. A reasonable attempt has been made to correct any errors. documented in this encounterK[facility]09-19-2024 [facility]09-19-[facility] History of Present illness Narrative* Boubacar Sky APRN.CNP - 03/29/2024 11:35 AM EDT Images from the original note were not included. [facility] [place] [address] Date of Evaluation: 03/29/2024 Patient Name: Amie Braxton : 1995 Chief Complaint: Patient presents with: Follow Up: 6 week follow up Nursing Intake: There are no exam notes on file for this visit. Subjective HPI Ms. Braxton is a 28 year old female who presents for: Follow up Reports she stopped the Lexapro due to increase SI. Reports GERD symptoms have not improved with the Protonix. Feels a globulus sensation in her throat. Review of Systems Constitutional: Negative for activity change, appetite change, chills and fever. HENT: Positive for trouble swallowing. Negative for ear pain, hearing loss, sinus pressure, sinus pain and sore throat. Eyes: Negative for visual disturbance. Respiratory: Negative for cough, chest tightness, shortness of breath and wheezing. Cardiovascular: Negative for chest pain, palpitations and leg swelling. Gastrointestinal: Negative for abdominal pain, diarrhea, nausea and vomiting. Genitourinary: Negative for dysuria and frequency. Musculoskeletal: Negative for arthralgias and myalgias. Skin: Negative for pallor, rash and wound. Neurological: Negative for dizziness, light-headedness, numbness and headaches. Psychiatric/Behavioral: Positive for dysphoric mood. Negative for behavioral problems, confusion, hallucinations and suicidal ideas. The patient is nervous/anxious. PAST MEDICAL HISTORY Diagnosis Date Asthma Generalized anxiety disorder Seasonal allergies PAST SURGICAL HISTORY Procedure Laterality Date TONSILLECTOMY & ADENOIDECTOMY <AGE 14 FAMILY HISTORY Problem Relation Age of Onset No Known Problems Mother No Known Problems Father No Known Problems Sister Skin Cancer Maternal Grandmother Diabetes Paternal Grandmother Social History Tobacco Use Smoking status: Never Smokeless tobacco: Never Vaping Use Vaping status: Never Used Substance Use Topics Alcohol use: Never Drug use: Never Current Outpatient Medications Medication Sig budesonide-formoterol (SYMBICORT) 160-4.5 mcg/actuation inhaler Inhale 2 Puffs as instructed two times a day.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 lightheadedness, dizziness, syncope, presyncope, blurring or fading of vision, generalized weakness, fatigue, mental clouding, anxiety, nausea, dyspnea, or headache. ROS All other systems were reviewed and are negative unless noted in the HPI. Allergies Allergen Reactions Valier Oil Other reaction(s): Other (See Comments), Other (See Comments) Asthma exacerbation Asthma exacerbation Beef Allergy Hives Cvs Digestive Probiotic [Lactase-Lactobacillus] Hives Egg-Derived Products Hives Food allergy Lactose Other reaction(s): Unknown Allergy to all dairy Milk-Related Compounds Dairy. Emesis, upset stomach Nitrofurantoin Other reaction(s): Other (See Comments), Other (See Comments), Unknown Migraines, upset stomach Migraines, upset stomach Migraines, upset stomach Migraine and light headed Migraine and light headed Migraines, upset stomach Peanut Allergen Powder-Dnfp Hives Peanut-Containing Drug Products Asthma, emesis Pineapple Hives and Swelling Soy Allergy Other reaction(s): GI Intolerance, GI Intolerance, GI Upset, Unknown Soybean-Containing Drug Products Soy, Migraines and upset stomach Vancomycin Hives Outpatient Medications Prior to Visit Medication Sig Dispense Refill albuterol 0.63 MG/3ML nebulizer solution Inhale 1 ampule. albuterol 108 (90 Base) MCG/ACT inhaler Inhale 1 puff every 6 hours as needed. cyanocobalamin (Vitamin B-12) 1000 MCG tablet Take 1 tablet (1,000 mcg) by mouth daily. 30 tablet 11 pantoprazole (ProtoNix) 40 MG EC tablet Take 1 tablet (40 mg) by mouth Nightly. Do not crush, chew,or split. 30 tablet 0 No facility-administered medications prior to visit. Past Medical History: Diagnosis Date Exercise-induced asthma IC (interstitial cystitis) Multiple food allergies Social History Tobacco Use Smoking status: Never Smokeless tobacco: Not on file Substance Use Topics Alcohol use: Not on file Past Surgical History: Procedure Laterality Date TONSILLECTOMY No family history on file. Objective Vitals: 03/14/24 0944 BP: 114/73 BP Location: Left arm Patient Position: Sitting BP Cuff Size: Adult Pulse: 77 SpO2: 98% Weight: 108 lb 3.2 oz (49.1 kg) Height: 5' (1.524 m) Physical Exam Constitutional: General: She is not in acute distress. Appearance: Normal appearance. Neck: Vascular: No JVD. Cardiovascular: Rate and Rhythm: Normal rate and regular rhythm. Pulses: Normal pulses. Heart sounds: Normal heart sounds. No murmur heard. Pulmonary: Effort: Pulmonary effort is normal. Breath sounds: Normal breath sounds. No rales. Skin: General: Skin is warm and dry. Neurological: Mental Status: She is alert and oriented to person, place, and time. Psychiatric: Mood and Affect: Mood normal. Speech: Speech normal. Lab values and test results reviewed Lab Results Component Value Date GLUCOSE 54 (L) 03/01/2024 CALCIUM 8.1 (L) 03/01/2024 NA 135 03/01/2024 K 4.1 03/01/2024 CO2 18 (L) 03/01/2024 CL 111 (H) 03/01/2024 BUN 9 03/01/2024 CREATININE 0.66 03/01/2024 Lab Results Component Value Date WBC 5.1 03/01/2024 HGB 12.7 03/01/2024 HCT 37.9 03/01/2024 MCV 89.0 03/01/2024 PLT 216 03/01/2024 Lab Results Component Value Date CHOL 160 02/28/2024 Lab Results Component Value Date HDL 100 (H) 02/28/2024 Lab Results Component Value Date TRIG 42 02/28/2024 Lab Results Component Value Date LDLCALC 52 02/28/2024 Lab Results Component Value Date TSH 2.398 02/29/2024 Lab Results Component Value Date HGBA1C 4.7 02/29/2024 CARDIAC TESTING REVIEWED: EKG: Encounter Date: 02/28/24 ECG 12 lead Result Value Heart Rate 63 QRSD Interval 99 QT Interval 411 QTC Interval 420 P [place] 39 QRS [place] 55 T Wave [place] 16 GA Interval 112 Impression Sinus rhythm Electronically Signed On 03-01-2024 07:01:37 EDT by Jeanette Llamas ECHOCARDIOGRAM: 02/28/24 TRANSTHORACIC ECHOCARDIOGRAM (TTE) COMPLETE (CONTRAST/BUBBLE/3D PRN) 02/29/2024 5:12 PM (Final) Interpretation Summary Left Ventricle: Left ventricle size is normal. Normal wall thickness. Normal left ventricular systolic function. EF by 2D Simpsons Biplane is 57%. Normal wall motion. Normal diastolic function. Right Ventricle: Right ventricle size is normal. Normal systolic function. No significant valvular abnormalities. Signed by: Pranav Roe MD on 02/29/2024 5:12 PM STRESS: 03/06/24 STRESS TEST ONLY EXERCISE 03/06/2024 2:08 PM (Final) Interpretation Summary Stress ECG: Conclusion: The stress test had minor ST changes of no clinical significance. The stress test is normal. Stress Test: A Jonny protocol stress test was performed. Overall, the patient's exercise capacity was average for their age. The patient exercised for 7 min and 10 sec. Hemodynamics are adequate for diagnosis. Blood pressure demonstrated a blunted response and heart rate demonstrated a normal response to stress. The patient's heart rate recovery was normal. The patient reported chest pain, dizziness, dyspnea and fatigue during the stress test. Chest pain was characterized as tightness. Resting ECG: The ECG shows normal sinus rhythm. Resting ECG shows non-specific T waves. Signed by: Yuan Raya MD on 03/06/2024 2:08 PM Jessica FLETCHER, 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, SCHOOL BUS INSPECTOR-C - Date of Service: 03/14/2024 Nurse Practitioner in Interventional Cardiology [facility] - Cardiology [address] [address] p [phone] [email or web address] documented in this [facility]09-04-2024 History of Present illness Narrative* MARCO Bowen CNP - 03/14/2024 9:30 AM EDT Images from the original note were not included. [facility] [address] [place] [id number] Dept: [phone] Dept Visit Type: Established Patient NAME: Amie Braxton : 1995 Reason for Visit: Palpitations, Shortness of Breath, Dizziness, and Chest Pain Assessment and Plan 1. Hospital discharge follow-up She continues to have palpitations and dizziness. She feels like the dizziness is causing her troubles in functioning. She has not been able to return to work d/t her symptoms. Will start fludrocortisone 0.05 mg daily can up titrate to 0.1 mg in a week if no improvement. D/w Dr. Darnell. Questions were answered. 2. POTS (postural orthostatic tachycardia syndrome) Her stress test was unremarkable. She is symptomatic despite lifestyle modification. Will start fludrocortisone 0.05 mg daily can up titrate to 0.1 mg in a week if no improvement. Continue lifestyle modification with increasing dietary sodium 800-1,200 mg and maintaining of hydration of 3 L of fluids daily. Recumbent aerobic exercise as tolerated 30-40 minutes a day 4 or more days a week. Waist high compression (30-40 mmHg) or abdominal binder daily. No follow-ups on file. Or sooner as needed. Subjective HPI Amie Braxton is an 28 y.o. female patient of Dr. Darnell with past medical history of exercise-induced asthma and PCOS. She presented to [facility] with dizziness. She developed chest bubbling sensation, burning stinging midsternal nonradiating CP. Her heart rate was noted to be [address] with diffuse ST depressions transferred to [facility] for concern of SCAD. Troponin and BNP negative. TTE shows normal LVEF with no WMA. Cardiac workup was negative and her symptoms felt to be r/t orthostatictachycardia. She had outpatient EST which was negative for inducible ischemia. Today she is here for hospital follow up with her bf. She feels dizzy all the time. She is still having heart palpitations. She has been having burning/stinging sensation from her head to her body a few times but not intense as before. She feels worse at night. She hasn't worked since hospitalization and she feels fatigued. Denies lightheadedness, dizziness, syncope, presyncope, blurring or fading of vision, generalized weakness, fatigue, mental clouding, anxiety, nausea, dyspnea, or headache. ROS All other systems were reviewed and are negative unless noted in the HPI. Allergies Allergen Reactions Valier Oil Other reaction(s): Other (See Comments), Other (See Comments) Asthma exacerbation Asthma exacerbation Beef Allergy Hives Cvs Digestive Probiotic [Lactase-Lactobacillus] Hives Egg-Derived Products Hives Food allergy Lactose Other reaction(s): Unknown Allergy to all dairy Milk-Related Compounds Dairy. Emesis, upset stomach Nitrofurantoin Other reaction(s): Other (See Comments), Other (See Comments), Unknown Migraines, upset stomach Migraines, upset stomach Migraines, upset stomach Migraine and light headed Migraine and light headed Migraines, upset stomach Peanut Allergen Powder-Dnfp Hives Peanut-Containing Drug Products Asthma, emesis Pineapple Hives and Swelling Soy Allergy Other reaction(s): GI Intolerance, GI Intolerance, GI Upset, Unknown Soybean-Containing Drug Products Soy, Migraines and upset stomach Vancomycin Hives Outpatient Medications Prior to Visit Medication Sig Dispense Refill albuterol 0.63 MG/3ML nebulizer solution Inhale 1 ampule. albuterol 108 (90 Base) MCG/ACT inhaler Inhale 1 puff every 6 hours as needed. cyanocobalamin (Vitamin B-12) 1000 MCG tablet Take 1 tablet (1,000 mcg) by mouth daily. 30 tablet 11 pantoprazole (ProtoNix) 40 MG EC tablet Take 1 tablet (40 mg) by mouth Nightly. Do not crush, chew,or split. 30 tablet 0 No facility-administered medications prior to visit. Past Medical History: Diagnosis Date Exercise-induced asthma IC (interstitial cystitis) Multiple food allergies Social History Tobacco Use Smoking status: Never Smokeless tobacco: Not on file Substance Use Topics Alcohol use: Not on file Past Surgical History: Procedure Laterality Date TONSILLECTOMY No family history on file. Objective Vitals: 03/14/24 0944 BP: 114/73 BP Location: Left arm Patient Position: Sitting BP Cuff Size: Adult Pulse: 77 SpO2: 98% Weight: 108 lb 3.2 oz (49.1 kg) Height: 5' (1.524 m) Physical Exam Constitutional: General: She is not in acute distress. Appearance: Normal appearance. Neck: Vascular: No JVD. Cardiovascular: Rate and Rhythm: Normal rate and regular rhythm. Pulses: Normal pulses. Heart sounds: Normal heart sounds. No murmur heard. Pulmonary: Effort: Pulmonary effort is normal. Breath sounds: Normal breath sounds. No rales. Skin: General: Skin is warm and dry. Neurological: Mental Status: She is alert and oriented to person, place, and time. Psychiatric: Mood and Affect: Mood normal. Speech: Speech normal. Lab values and test results reviewed Lab Results Component Value Date GLUCOSE 54 (L) 03/01/2024 CALCIUM 8.1 (L) 03/01/2024 NA 135 03/01/2024 K 4.1 03/01/2024 CO2 18 (L) 03/01/2024 CL 111 (H) 03/01/2024 BUN 9 03/01/2024 CREATININE 0.66 03/01/2024 Lab Results Component Value Date WBC 5.1 03/01/2024 HGB 12.7 03/01/2024 HCT 37.9 03/01/2024 MCV 89.0 03/01/2024 PLT 216 03/01/2024 Lab Results Component Value Date CHOL 160 02/28/2024 Lab Results Component Value Date HDL 100 (H) 02/28/2024 Lab Results Component Value Date TRIG 42 02/28/2024 Lab Results Component Value Date LDLCALC 52 02/28/2024 Lab Results Component Value Date TSH 2.398 02/29/2024 Lab Results Component Value Date HGBA1C 4.7 02/29/2024 CARDIAC TESTING REVIEWED: EKG: Encounter Date: 02/28/24 ECG 12 lead Result Value Heart Rate 63 QRSD Interval 99 QT Interval 411 QTC Interval 420 P [place] 39 QRS [place] 55 T Wave [place] 16 GA Interval 112 Impression Sinus rhythm Electronically Signed On 03-01-2024 07:01:37 EDT by Jeanette Llamas ECHOCARDIOGRAM: 02/28/24 TRANSTHORACIC ECHOCARDIOGRAM (TTE) COMPLETE (CONTRAST/BUBBLE/3D PRN) 02/29/2024 5:12 PM (Final) Interpretation Summary Left Ventricle: Left ventricle size is normal. Normal wall thickness. Normal left ventricular systolic function. EF by 2D Simpsons Biplane is 57%. Normal wall motion. Normal diastolic function. Right Ventricle: Right ventricle size is normal. Normal systolic function. No significant valvular abnormalities. Signed by: Pranav Roe MD on 02/29/2024 5:12 PM STRESS: 03/06/24 STRESS TEST ONLY EXERCISE 03/06/2024 2:08 PM (Final) Interpretation Summary Stress ECG: Conclusion: The stress test had minor ST changes of no clinical significance. The stress test is normal. Stress Test: A Jonny protocol stress test was performed. Overall, the patient's exercise capacity was average for their age. The patient exercised for 7 min and 10 sec. Hemodynamics are adequate for diagnosis. Blood pressure demonstrated a blunted response and heart rate demonstrated a normal response to stress. The patient's heart rate recovery was normal. The patient reported chest pain, dizziness, dyspnea and fatigue during the stress test. Chest pain was characterized as tightness. Resting ECG: The ECG shows normal sinus rhythm. Resting ECG shows non-specific T waves. Signed by: Yuan Raya MD on 03/06/2024 2:08 PM Jessica Bird MSN, 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, SCHOOL BUS INSPECTOR-C - Date of Service: 03/14/2024 Nurse Practitioner in Interventional Cardiology [facility] - Cardiology [address] [address] p [phone] [email or web address] Addendum: Physical therapy evaluation and treat ordered. Work excuse RTW 03/22/24, d/w Dr. Darnell. If patient is looking for long-term disability would defer her for a physical capacity function evaluation. documented in this [facility]09-04-2024 Instructions* Patient Instructions* MARCO Bowen CNP - 03/14/2024 9:30 AM EDT Start fludrocortisone daily Sodium 800-1,200 mg and maintaining of hydration of 3 L of fluids daily Compression socks If you have any questions or concerns, please call the office at [phone] documented in this [facility]09-04-2024 Instructions* Patient Instructions* MARCO Bowen CNP - 03/14/2024 9:30 AM EDT Start fludrocortisone daily Sodium 800-1,200 mg and maintaining of hydration of 3 L of fluids daily Compression socks If you have any questions or concerns, please call the office at [phone] documented in this [facility]09-04-2024 Miscellaneous Notes* Addendum Note - MARCO Bowen CNP - 03/14/2024 9:30 AM EDTAddended by: JESSICA BIRD on: 03/15/2024 12:31 PM Modules accepted: Orders documented in this [facility]09-04-2024 Note* Addendum Note - MARCO Bowen CNP - 03/14/2024 9:30 AM EDTAddended by: JESSICA BIRD on: 03/15/2024 12:31 PM Modules accepted: [id number] NoteAddended by: JESSICA BIRD on: 03/15/2024 12:31 PM Modules accepted: [facility]09-03-2024 History of Present illness Narrative* Boubacar Sky APRN.CNP - 03/13/2024 2:40 PM EDT Transitional Care Management TCM Eligibility Documentation No recent care coordination documentation related to TCM found. Summary Discharged from: [facility] Admit Date: 02/28/2024 Admitted for: Dizziness, tachycardia, ECG changes. Boubacar Sky APRN.CNP Provider Documentation Amie Braxton is a 28 year old female here today for a follow up to recent hospitalization. I have reviewed the patient's hospital course including diagnostic testing performed during this hospitalization, their discharge medications, and my assessment and plan with the patient and any family members present at today's visit. HPI: Presents today for Hospital follow up. Reports no chest tightness. Reports she stopped her Prozac the day she was admitted to the ICU. Unsure if this was a reaction to the medication or her diagnosisof POTS. Has follow up scheduled with Cardiology and Neurology. Review of Systems Constitutional: Negative. HENT: Negative. Eyes: Negative. Respiratory: Negative. Cardiovascular: Negative. Gastrointestinal: Negative. Genitourinary: Negative. Musculoskeletal: Negative. Skin: Negative. Neurological: Positive for dizziness and headaches. Endo/Heme/Allergies: Negative. Psychiatric/Behavioral: Negative. Vitals BP 111/65 Pulse 96 Resp 16 Ht 5' 0 (1.52m) Wt 109 lb (49.4kg) SpO2 98% LMP 06/24/2023 BMI 21.29 kg/(m^2). Physical Exam Constitutional: Appearance: Normal appearance. She is normal weight. HENT: Head: Normocephalic and atraumatic. Eyes: Extraocular Movements: Extraocular movements intact. Conjunctiva/sclera: Conjunctivae normal. Pupils: Pupils are equal, round, and reactive to light. Cardiovascular: Rate and Rhythm: Normal rate and regular rhythm. Pulses: Normal pulses. Heart sounds: Normal heart sounds. No murmur heard. No friction rub. No gallop. Pulmonary: Effort: Pulmonary effort is normal. Breath sounds: Normal breath sounds. No wheezing, rhonchi or rales. Musculoskeletal: General: Normal range of motion. Cervical back: Normal range of motion and neck supple. Right lower leg: No edema. Left lower leg: No edema. Skin: General: Skin is warm and dry. Capillary Refill: Capillary refill takes less than 2 seconds. Neurological: General: No focal deficit present. Mental Status: She is alert and oriented to person, place, and time. Mental status is at baseline. Psychiatric: Mood and Affect: Mood normal. Behavior: Behavior normal. ASSESSMENT/PLAN: 1. Hospital discharge follow-up - ICD9: V67.59, ICD10: Z09 (primary diagnosis) Follow up scheduled for Cardiology. Encouraged fluids and increased sodium intake. 2. Anxiety and depression - ICD9: 300.00, 311, ICD10: F41.9, F32.A Will trial another medication for her depression and anxiety. Discussed risk and benefits along with side effects. - ESCITALOPRAM 10 MG TABLET 3. B12 deficiency - ICD9: 266.2, ICD10: E53.8 Patient would prefer to have monthly injections for B-12 - CYANOCOBALAMIN (VIT B-12) 1,000 MCG/ML INJECTION SOLUTION Boubacar Sky APRN.JULIAN [facility] Nurse Note* Alisha Granados LPN - 03/13/2024 2:23 PM EDT Patient has been identified by name and date of : Yes Amie is here for an injection of Vitamin B12 Dose: 1 Route: Intramuscular Given without incident. 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 Lot #: [id number] [facility] [place] #: [id number] Expiration Date: 06/09/25 Boubacar Sky HORSE SHOER, present in clinic at time of injection. The date due for the next injection is 30 days . Alisha Granados LPN [facility]09-03-2024 Nurse Note* Alisha Granados LPN - 03/13/2024 2:23 PM EDT Patient has been identified by name and date of : Yes Amie is here for an injection of Vitamin B12 Dose: 1 Route: Intramuscular Given without incident. 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 Lot #: [id number] [facility] [place] #: [id number] Expiration Date: 06/09/25 Boubacar Sky HORSE SHOER, present in clinic at time of injection. The date due for the next injection is 30 days . Alisha Granados LPN documented in this [facility]-20[facility] Telephone encounter Note * Telephone Encounter - Alisha Granados LPN - 03/13/2024 2:07 PM EDT Did you restart this. Thank you [facility]09-03-2024 Miscellaneous Notes* Telephone Encounter - Alisha Granados LPN - 03/13/2024 2:07 PM EDT Did you restart this. Thank you documented in this [facility]-27-2024 Miscellaneous Notes* Result Encounter Note - Tami Darnell MD - 03/06/2024 1:00 PM EDT Stress test reviewed. Follow up as scheduled documented in this [facility]08-27-2024 Progress note* Result Encounter Note - Tami Darnell MD - 03/06/2024 1:00 PM EDT Stress test reviewed. [facility]: 1(772) 941-679808-23-2024 Telephone encounter Note* Telephone Encounter - Alisha Granados LPN - 03/02/2024 1:36 PM EDT Noted [facility]08-23-2024 Miscellaneous Notes* Telephone Encounter - Alisha Granados LPN - 03/02/2024 1:36 PM EDT Noted documented in this [facility]2024 [facility] [place] [facility] CCU DISCHARGE SUMMARY Patient Name: Amie Braxton : 1995 Admit Date: 02/28/2024 Discharge Date: 03/01/24 PCP: MARCO Niño CNP Visit Status: Admission Code Status: No Order Discharge Diagnoses: Orthostatic Tachycardia EKG w/ repolarization abnormalities POTS (?) Dizziness Hx of Exercise-Induced Asthma Hx of PCOS (Secondary Amenorrhea) Hx of COVID-19 infection Hx of chronic migraine headaches Hospital Course: Amie Braxton is a 28 y.o. female that presented to [facility] as a transfer from [facility] on 02/28/2024 and was admitted for acute onset chest tightness and burning w/ concern for ischemia based on EKG findings. Her EKG was suggestive of repolarization abnormalities that had been previously documented on EKG's (2022), and she has chronic chest pain and dyspnea. The workup during her hospitalization revealed no underlying acute cardiac etiologies of her symptoms and her TTE was also normal with no wall-motion abnormalities. Her presenting symptoms were felt to be attributed to orthostatic tachycardia in the setting of her history of POTS, and possible dyspepsia During her hospitalization, her workup did reveal a low vitamin B12 level for which she was started on vitamin B12 supplementation. As some of her symptoms were appreciated after meals, she was started on a 30-day trial of pantoprazole 40 mg. On the day of discharge, she reported no chest tightness or burning, but did report some dizziness during ambulation, which she continues to be worked up for in the outpatient setting. She was discharged in stable condition with an outpatient cardiac stress-test scheduled as well as outpatient cardiology follow-up visit. She is also aware to maintain hydration and increase her sodium intake. Procedures Performed: None Echocardiogram (02/29/2024): Transthoracic echocardiogram (TTE) complete with contrast, bubble, strain, and 3D PRN Result Date: 02/29/2024 Left Ventricle: Left ventricle size is normal. Normal wall thickness. Normal left ventricular systolic function. EF by 2D Simpsons Biplane is 57%. Normal wall motion. Normal diastolic function. Right Ventricle: Right ventricle size is normal. Normal systolic function. No significant valvular abnormalities. Discharge Medications: Current Outpatient Medications Medication Instructions albuterol 0.63 MG/3ML nebulizer solution 1 ampule, Inhalation albuterol 108 (90 Base) MCG/ACT inhaler 1 puff, Inhalation, Every 6 hours PRN cyanocobalamin (VITAMIN B-12) 1,000 mcg, Oral, Daily pantoprazole (PROTONIX) 40 mg, Oral, Nightly, Do not crush, chew, or split. Notable Medication Changes & Reasoning: - Pantoprazole 40 mg daily x 30 days (trial of PPI) - Ok to discontinue after 30 days if no improvement. - Vitamin B12 1,000 mg every day AMI/PCI Registry Information: Aspirin: No, not medically indicated P2Y12 Inhibitors: No, not medically indicated High-Intensity Statin: No, not medically indicated Beta Lela: No, not medically indicated ACEi/ARB/ARNI: No, not medically indicated Aldosterone Antagonist for EF < 40%: No, not medically indicated Cardiac Rehab: No, other: please specify: Not indicated. BMI: Body mass index is 20.51 kg/m?. Diet: Adult diet Regular Activity: Please refer to home going instructions. Disposition: Home Recommended Follow Up Appointment(s): 1-2 week follow up with [facility] for STEMI/NSTEMI 6-8 week follow up with [facility] P[facility] 2-4 weeks sooner if DX with Diabetes Follow up appointment scheduled as stated below: Future Appointments Date Time Provider Department Center 03/06/2024 1:00 PM [facility] 95 [facility] 03/14/2024 9:30 AM MARCO Bowen CNP [facility] 95 Ar [facility]2024 Hospital course Narrative* Tami Darnell MD - 03/01/2024 11:19 AM EDT Images from the original note were not included. [facility] [place] [facility] CCU DISCHARGE SUMMARY Patient Name: Amie Braxton : 1995 Admit Date: 02/28/2024 Discharge Date: 03/01/24 PCP: MARCO Niño CNP Visit Status: Admission Code Status: No Order Discharge Diagnoses: Orthostatic Tachycardia EKG w/ repolarization abnormalities POTS (?) Dizziness Hx of Exercise-Induced Asthma Hx of PCOS (Secondary Amenorrhea) Hx of COVID-19 infection Hx of chronic migraine headaches Hospital Course: Amie Braxton is a 28 y.o. female that presented to [facility] as a transfer from [facility] on 02/28/2024 and was admitted for acute onset chest tightness and burning w/ concern for ischemia based on EKG findings. Her EKG was suggestive of repolarization abnormalities that had been previously documented on EKG's (2022), and she has chronic chest pain and dyspnea. The workup during her hospitalization revealed no underlying acute cardiac etiologies of her symptoms and her TTE was also normal with no wall-motion abnormalities. Her presenting symptoms were felt to be attributed to orthostatic tachycardia inthe setting of her history of POTS, and possible dyspepsia During her hospitalization, her workup did reveal a low vitamin B12 level for which she was startedon vitamin B12 supplementation. As some of her symptoms were appreciated after meals, she was started on a 30-day trial of pantoprazole 40 mg. On the day of discharge, she reported no chest tightnessor burning, but did report some dizziness during ambulation, which she continues to be worked up for in the outpatient setting. She was discharged in stable condition with an outpatient cardiac stress-test scheduled as well as outpatient cardiology follow-up visit. She is also aware to maintain hydration and increase her sodium intake. Procedures Performed: None Echocardiogram (02/29/2024): Transthoracic echocardiogram (TTE) complete with contrast, bubble, strain, and 3D PRN Result Date: 02/29/2024 Left Ventricle: Left ventricle size is normal. Normal wall thickness. Normal left ventricular systolic function. EF by 2D Simpsons Biplane is 57%. Normal wall motion. Normal diastolic function. RightVentricle: Right ventricle size is normal. Normal systolic function. No significant valvular abnormalities. Discharge Medications: Current Outpatient Medications Medication Instructions albuterol 0.63 MG/3ML nebulizer solution 1 ampule, Inhalation albuterol 108 (90 Base) MCG/ACT inhaler 1 puff, Inhalation, Every 6 hours PRN cyanocobalamin (VITAMIN B-12) 1,000 mcg, Oral, Daily pantoprazole (PROTONIX) 40 mg, Oral, Nightly, Do not crush, chew, or split. Notable Medication Changes & Reasoning: - Pantoprazole 40 mg daily x 30 days (trial of PPI) - Ok to discontinue after 30 days if no improvement. - Vitamin B12 1,000 mg every day AMI/PCI Registry Information: Aspirin: No, not medically indicated P2Y12 Inhibitors: No, not medically indicated High-Intensity Statin: No, not medically indicated Beta Lela: No, not medically indicated ACEi/ARB/ARNI: No, not medically indicated Aldosterone Antagonist for EF < 40%: No, not medically indicated Cardiac Rehab: No, other: please specify: Not indicated. BMI: Body mass index is 20.51 kg/m . Diet: Adult diet Regular Activity: Please refer to home going instructions. Disposition: Home Recommended Follow Up Appointment(s): 1-2 week follow up with [facility] for STEMI/NSTEMI 6-8 week follow up with [facility] PCP 2-4 weeks sooner if DX with Diabetes Follow up appointment scheduled as stated below: Future Appointments Date Time Provider Department Center 03/06/2024 1:00 PM [facility] E[facility] 95 [facility] 95 [facility] 03/14/2024 9:30 AM Jessica Bird APRN - HORSE [employer]ER [facility] 95 Ar documented in this [facility]2024 History of Present illness Narrative* Kodi Munoz, DO - 03/01/2024 11:06 AM EDT Images from the original note were not included. [facility] [place] [facility] PROGRESS NOTE Patient Name: Amie Braxton : 1995 Subjective: Interval History: Patient is resting in bed on evaluation. Patient notes that she has not had any recent chest pain, but did not dizziness and mild headache. Echo and abdominal US both WNL. Patients orthostatics confirmed POTS diagnosis. Patients B12 noted to be low at 214. Patient notes no SOB, N/V, or abdominal pain at this time. Review of Systems: Constitutional: Negative for chills, fatigue and fever. HENT: Negative for rhinorrhea, sore throat and trouble swallowing. Eyes: Negative for pain and visual disturbance. Respiratory: Positive for transient chest tightness, not present at time of evaluation. Negative for cough and shortness of breath. Cardiovascular: Negative for chest pain, palpitations and leg swelling. Gastrointestinal: Negative for abdominal pain, constipation, diarrhea, nausea and vomiting. Genitourinary: Positive for menstrual problem. Musculoskeletal: Negative for back pain, neck pain and neck stiffness. Skin: Negative for rash. Neurological: Positive for dizziness and headaches. Negative for weakness and light-headedness. Psychiatric/Behavioral: The patient is nervous/anxious. Inpatient Medications: Scheduled Meds:cyanocobalamin, 1,000 mcg, Oral, Daily pantoprazole, 40 mg, Oral, Nightly Or pantoprazole (ProtoNix) 40 mg in sodium chloride (PF) 0.9 % 10 mL injection, 40 mg, IntraVENous, Nightly Continuous Infusions: PRN Meds used in the last 24hr: Mary Ellen Objective: Physical Examination: BP 99/61 Pulse 74 Temp 36.6 C (97.8 F) (Temporal) Resp 18 Ht 1.524 m (5') Wt 47.6 kg (105lb) SpO2 97% BMI 20.51 kg/m Intake/Output Summary (Last 24 hours) at 03/01/2024 1106 Last data filed at 03/01/2024 0429 Gross per 24 hour Intake 2606 ml Output 1150 ml Net 1456 ml Physical Exam Vitals and nursing note reviewed. Constitutional: General: She is not in acute distress. Appearance: Normal appearance. She is not ill-appearing. HENT: Mouth/Throat: Mouth: Mucous membranes are moist. Pharynx: Oropharynx is clear. No oropharyngeal exudate. Eyes: Extraocular Movements: Extraocular movements intact. Neck: Vascular: No carotid bruit. Cardiovascular: Rate and Rhythm: Regular rhythm. Pulses: Normal pulses. Heart sounds: Normal heart sounds. No murmur heard. Pulmonary: Effort: Pulmonary effort is normal. No respiratory distress. Breath sounds: Normal breath sounds. Abdominal: General: Bowel sounds are normal. There is no distension. Palpations: Abdomen is soft. Tenderness: There is no abdominal tenderness. There is no guarding. Musculoskeletal: Right lower leg: No edema. Left lower leg: No edema. Skin: General: Skin is warm. Capillary Refill: Capillary refill takes less than 2 seconds. Neurological: Mental Status: She is alert and oriented to person, place, and time. Pertinent Labs: BMP: Lab Results Component Value Date NA 135 03/01/2024 K 4.1 03/01/2024 CL 111 (H) 03/01/2024 CO2 18 (L) 03/01/2024 BUN 9 03/01/2024 CREATININE 0.66 03/01/2024 GLUCOSE 54 (L) 03/01/2024 CALCIUM 8.1 (L) 03/01/2024 MG 1.9 03/01/2024 PHOS 3.6 03/01/2024 CBC: Lab Results Component Value Date WBC 5.1 03/01/2024 HGB 12.7 03/01/2024 HCT 37.9 03/01/2024 MCV 89.0 03/01/2024 PLT 216 03/01/2024 Cardiac profile: CK Date Value Ref Range Status 02/29/2024 48 30 - 170 U/L Final CKMB Date Value Ref Range Status 02/29/2024 0.4 0.0 - 4.4 ng/mL Final TROPONIN I Date Value Ref Range Status 02/29/2024 <0.012 <0.034 ng/mL Final 02/28/2024 <0.012 <0.034 ng/mL Final 02/28/2024 <0.012 <0.034 ng/mL Final Coagulation: No results found for: INR, PTT Lipid panel: Lab Results Component Value Date CHOL 160 02/28/2024 HDL 100 (H) 02/28/2024 TRIG 42 02/28/2024 Other: Lab Results Component Value Date HGBA1C 4.7 02/29/2024 TSH 2.398 02/29/2024 Chest Imaging: CXR: === 02/28/24 === XR CHEST 1 VIEW - Impression - Normal chest x-ray. Report Dictated on Electronically Signed By: Salvatore Terry MD Electronically Signed Date/Time: 02/28/2024 6:11 PM EDT Cardiac Studies: Telemetry findings reviewed: NSR ECG: Encounter Date: 02/28/24 ECG 12 lead Result Value Heart Rate 63 QRSD Interval 99 QT Interval 411 QTC Interval 420 P [place] 39 QRS [place] 55 T Wave [place] 16 GA Interval 112 Impression Sinus rhythm Electronically Signed On 03-01-2024 07:01:37 EDT by Jeanette Llamas Echo: 02/28/24 TRANSTHORACIC ECHOCARDIOGRAM (TTE) COMPLETE (CONTRAST/BUBBLE/3D PRN) 02/29/2024 5:12 PM (Final) Interpretation Summary Left Ventricle: Left ventricle size is normal. Normal wall thickness. Normal left ventricular systolic function. EF by 2D Simpsons Biplane is 57%. Normal wall motion. Normal diastolic function. Right Ventricle: Right ventricle size is normal. Normal systolic function. No significant valvular abnormalities. Signed by: Pranav Roe MD on 02/29/2024 5:12 PM Cath Report: No results found for this or any previous visit. Assessment/Plan 1. Chest tightness/Burning, Undifferentiated Sinus Tachycardia - Troponins, CK/CK-MB, D-dimer, respiratory panel, and pneumonia panel are negative - ESR, CRP. Mg, Phos, lipid panel, A1c, lipase, prolactin, pro calcitonin, and TSH all WNL - Echo and US abdomen revealed no abnormalities - Do not feel that her underlying episodic chest tightness and burning appears to be cardiac in etiology. - EKG 02/28/2024 - Sinus tachycardia with LAE, nonspecific ST-T changes diffusely with diffuse ST depression - EKGs 02/29/2024 - #1 NSR and #2 sinus tachycardia with left atrial enlargement and diffuse repolarization - EKG 03/01/2024 - NSR - Stress test performed 05/10/2023, results not able to be obtained - Patient reports no chest pain this morning but still notes dizziness and mild headache Plan: - Stress test outpatient 03/06 - Follow up with cardiology - 03/14 - Follow up with PCP - 03/29 - Pantoprazole 40 mg to rule out possible acid reflux etiology of chest pain 2. POTS, chronic - syncope/tilt test 05/05/2023 was diagnostic for accentuated postural tachycardia and negative forsyncope - Tilt test 05/06/2023 was negative - 02/29/24 AM orthostatics - HR 84 to 125 (BP 107/65 to 102/70) Patient Given 1 L bolus of fluid and test repeated 02/29/24 PM orthostatics - HR 82 to 107 (BP 118/60 to 127/73) Plan: - Aggressive hydration - Maintaining of high sodium intake - Use of compression garments (pantyhose, abdominal binders) - Slowly increasing exercise capacity starting with recumbent or sitting exercise, all to improve her orthostatic symptoms. 3. PCOS Secondary Amenorrhea - [facility] at [facility] ([facility] [place]) - Prolactin levels WNL - patient recently prescribed estrogen replacement therapy however not started on it - Consider MRI brain vs CTH to assess for structural abnormalities (I.e. pituitary macroadenoma or prolactinoma that could be explaining her current constellation of symptoms) 4. Exercise Induced Asthma - Patient on inhaled soulmedrol in the OP - Would benefit from short-acting B2 agonist in combination; however, unfavorable at this time given sinus tachycardia 5. Vitamin B12 Deficiency - started B12 supplement - Goals of Care: No Order - DVT Prophylaxis: Not Indicated - patient able to ambulate adequately - GI Prophylaxis: Protonix daily - Diet: General - BMI Classification: Body mass index is 20.51 kg/m . - Disposition: Discharge to home later today. Associated attestation - Tami Darnell MD - 03/01/2024 6:00 PM EDT I, Dr. Tami Darnell, saw and evaluated the patient 03/01/24. I personally obtained the betancur and critical portions of the history and physical exam. I reviewed the chart and discussed the patient with the resident. I agree with the resident's medical decision making. In summary, 28-year-old woman with a history of dysautonomia and POTS, chronic chest pain and dyspnea, asthma, multiple food allergies and possibly chronic malnutrition with low albumin and vitamin deficiencies, admitted with worsening of her chronic chest pain. She has a chronically abnormal EKG, with the ST and T wave abnormalities that are worse when tachycardic. Ruled out for acute IN. No structural normalities or wall motion abnormalities noted on echocardiogram. No concerning arrhythmias on telemetry. Encouraged conservative management of her POTS with increased oral intake particularly healthy diet, increase sodium intake, staying well-hydrated, using compression garments, exercise as tolerated starting with recumbent exercises. With a history of abnormal EKG and ongoing chest discomfort, will obtain outpatient treadmill stress test. High-dose PPI also started as some of her symptoms are simply postprandial. Will discharge home today. * Leslie Andrew - 03/01/2024 9:51 AM EDT Nutrition rescreen completed. Chart reviewed. Patient to be monitored and followed by the diet it field technician. KAUR Cunningham * Kodi Munoz DO - 02/29/2024 11:43 AM EDT Images from the original note were not included. [facility] [place] [facility] CCU PROGRESS NOTE Patient Name: Amie Braxton : 1995 Subjective: Interval History: Patient is resting in bed comfortably. Noted no chest pain at time of visit, but notes chest pain and headache to be transient. Patient notes that pain and lightheadedness are worse when she sits up.Troponins, CK/CK-MB, and D-dimer negative. ESR, CRP. Mg, Phos, lipid panel, A1c, lipase, prolactin and TSH all WNL. Bedside echo revealed no abnormalities. Formal echo, US abdomen, pro calcitonin, respiratory panel, and pneumonia pcr pending. Review of Systems: Constitutional: Negative for chills, fatigue and fever. HENT: Negative for rhinorrhea, sore throat and trouble swallowing. Eyes: Negative for pain and visual disturbance. Respiratory: Positive for transient chest tightness. Negative for cough and shortness of breath. Cardiovascular: Negative for chest pain, palpitations and leg swelling. Gastrointestinal: Negative for abdominal pain, constipation, diarrhea, nausea and vomiting. Genitourinary: Positive for menstrual problem. Musculoskeletal: Negative for back pain, neck pain and neck stiffness. Skin: Negative for rash. Neurological: Positive for dizziness and headaches. Negative for weakness and light-headedness. Psychiatric/Behavioral: The patient is nervous/anxious. Inpatient Medications: Scheduled Meds:pantoprazole, 40 mg, Oral, Nightly Or pantoprazole (ProtoNix) 40 mg in sodium chloride (PF) 0.9 % 10 mL injection, 40 mg, IntraVENous, Nightly Continuous Infusions: PRN Meds used in the last 24hr: Objective: Physical Examination: BP 102/70 (BP Location: Right arm, Patient Position: Standing) Pulse 93 Temp 36.7 C (98 F) (Temporal) Resp 16 SpO2 98% Intake/Output Summary (Last 24 hours) at 02/29/2024 1143 Last data filed at 02/29/2024 0100 Gross per 24 hour Intake 1000 ml Output 1 ml Net 999 ml Physical Exam Vitals and nursing note reviewed. Constitutional: General: She is not in acute distress. Appearance: Normal appearance. She is not ill-appearing. HENT: Mouth/Throat: Mouth: Mucous membranes are moist. Pharynx: Oropharynx is clear. No oropharyngeal exudate. Eyes: Extraocular Movements: Extraocular movements intact. Neck: Vascular: No carotid bruit. Cardiovascular: Rate and Rhythm: Regular rhythm. Pulses: Normal pulses. Heart sounds: Normal heart sounds. No murmur heard. Pulmonary: Effort: Pulmonary effort is normal. No respiratory distress. Breath sounds: Normal breath sounds. Abdominal: General: Bowel sounds are normal. There is no distension. Palpations: Abdomen is soft. Tenderness: There is no abdominal tenderness. There is no guarding. Musculoskeletal: Right lower leg: No edema. Left lower leg: No edema. Skin: General: Skin is warm. Capillary Refill: Capillary refill takes less than 2 seconds. Neurological: Mental Status: She is alert and oriented to person, place, and time. Pertinent Labs: BMP: Lab Results Component Value Date NA 136 02/29/2024 K 3.6 02/29/2024 CL 107 02/29/2024 CO2 19 (L) 02/29/2024 BUN 10 02/29/2024 CREATININE 0.64 02/29/2024 GLUCOSE 80 02/29/2024 CALCIUM 9.0 02/29/2024 MG 2.0 02/28/2024 PHOS 2.9 02/28/2024 CBC: Lab Results Component Value Date WBC 8.7 02/29/2024 HGB 14.2 02/29/2024 HCT 41.9 02/29/2024 MCV 86.7 02/29/2024 PLT 307 02/29/2024 Cardiac profile: CK Date Value Ref Range Status 02/29/2024 48 30 - 170 U/L Final CKMB Date Value Ref Range Status 02/29/2024 0.4 0.0 - 4.4 ng/mL Final TROPONIN I Date Value Ref Range Status 02/29/2024 <0.012 <0.034 ng/mL Final 02/28/2024 <0.012 <0.034 ng/mL Final 02/28/2024 <0.012 <0.034 ng/mL Final Coagulation: No results found for: INR, PTT Lipid panel: Lab Results Component Value Date CHOL 160 02/28/2024 HDL 100 (H) 02/28/2024 TRIG 42 02/28/2024 Other: Lab Results Component Value Date HGBA1C 4.7 02/29/2024 TSH 2.398 02/29/2024 Chest Imaging: CXR: === 02/28/24 === XR CHEST 1 VIEW - Impression - Normal chest x-ray. Report Dictated on Electronically Signed By: Salvatore Terry MD Electronically Signed Date/Time: 02/28/2024 6:11 PM EDT Cardiac Studies: Telemetry findings reviewed: NSR ECG: Encounter Date: 02/28/24 ECG 12 lead Result Value Heart Rate 72 QRSD Interval 100 QT Interval 414 QTC Interval 453 P [place] 26 QRS [place] 59 T Wave [place] 26 GA Interval 140 Impression Sinus rhythm Echo: No results found for this or any previous visit. Cath Report: No results found for this or any previous visit. Assessment/Plan 1. Chest tightness/Burning Sinus Tachycardia - Troponins, CK/CK-MB, and D-dimer negative - ESR, CRP. Mg, Phos, lipid panel, A1c, lipase, prolactin and TSH all WNL - Bedside echo revealed no abnormalities - Formal echo, US abdomen, pro calcitonin, respiratory panel, and pneumonia pcr pending. - Do not feel that her underlying episodic chest tightness and burning appears to be cardiac in etiology. - Consider asthma related vs structural heart disease vs pneumonia vs costochondritis vs GERD vs anxiety - EKG 02/28/2024 - Sinus tachycardia with LAE, nonspecific ST-T changes diffusely with diffuse ST depression - EKGs 02/29/2024 - #1 NSR and #2 sinus tachycardia with left atrial enlargement and diffuse repolarization suggestive of ischemia - Stress test performed 05/10/2023, results not able to be obtained Plan: - Daily EKG - Formal TTE ordered - Pneumonia PCR and respiratory panel pending - Us abdomen pending - Pro-calcitonin pending - Pantoprazole 40 mg 2. PCOS Secondary Amenorrhea - [facility] [place]) - Prolactin levels WNL - patient recently prescribed estrogen replacement therapy however not started on it - Consider MRI brain vs CTH to assess for structural abnormalities (I.e. pituitary macroadenoma or prolactinoma that could be explaining her current constellation of symptoms) 3. Exercise Induced Asthma - Patient on inhaled soulmedrol in the OP - Would benefit from short-acting B2 agonist in combination; however, unfavorable at this time given sinus tachycardia 4. POTS - syncope/tilt test 05/05/2023 was diagnostic for accentuated postural tachycardia and negative forsyncope - Tilt test 05/06/2023 was negative - Per patient she was diagnosed with POTS around this time - Goals of Care: No Order - DVT Prophylaxis: Not Indicated - patient able to ambulate adequately - GI Prophylaxis: Protonix daily - Diet: General - BMI Classification: There is no height or weight on file to calculate BMI. - Disposition: Continue to monitor in CCU. Associated attestation - Tami Darnell MD - 02/29/2024 9:47 PM EDT I, Dr. Tami Darnell, saw and evaluated the patient 02/29/24. I personally obtained the betancur and critical portions of the history and physical exam. I reviewed the chart and discussed the patient with the resident. I agree with the resident's medical decision making. Structurally normal heart on echo Reviewed multiple ECGs sine 2022, that have shows nonspecific repolarization abnormalities Orthostatic tachycardia documented again. Aggressive hydration, maintaining of high sodium intake, use of compression garments (pantyhose, abdominal binders), slowly increasing exercise capacity starting with recumbent or sitting exercise, all to improve her orthostatic symptoms. Will plan on discharging tomorrow and outpatient exercise stress test if no worsening of symptoms overnight * Emily Castaneda MD - 02/29/2024 1:11 AM EDT Bedside TTE performed. No pericardial effusion. Normal LV and RV systolic function and size. No evidence of R heart strain. No marked mitral valve pathology. IVC less than 2 cm in diameter and collapsible. Will order inflammatory markers to assess for possible pericarditis as cause of pain, though ECG not typical of pericarditis. Patient, however, reporting that she felt as if she had a viral illness afew weeks ago, though she reports she underwent URI testing that was negative. Will trend ECG and troponins. Patient with ST segment abnormalities with HR near 150 - will assess for resolution now that HR better controlled. Patient remains tachycardic but with Well's score < 2 and negative D-dimer - will not perform CTA chest. Will trial ibuprofen for chest discomfort out of concern for pericarditic symptoms and PPI for reporting of bubbling feeling in the patient's chest. documented in this [facility]2024 History of Present illness Narrative* MARCO Abdi CNP - 03/01/2024 10:23 AM EDT Patient is being discharged from [facility], she needs an exercise stress test scheduled with follow-up with Dr. Darnell following exercise stress test. Please arrange. documented in this [facility]08-21-2024 Plan of care note* Care Plan - Isak Robertson RN - 02/29/2024 6:20 PM EDT The patient is Moderately Stable - Low risk of patient condition declining or worsening [id number] Miscellaneous Notes* Care Plan - Isak Robertson RN - 02/29/2024 6:20 PM EDT The patient is Moderately Stable - Low risk of patient condition declining or worsening documented in this [facility]08-20-2024 History and physical note* Bang Davies MD - 02/28/2024 10:14 PM EDT Images from the original note were not included. [facility] [place] [facility] CCU HISTORY & PHYSICAL Patient Name: Amie Braxton : 1995 Date of Admission: 02/28/2024 5:29 PM Established skin pass operator: None Subjective: Chief Complaint: Chest tightness and burning with ST-changes on EKG History of Present Illness: Amie Braxton is a 28 y.o. female with a PMH exercise-induced asthma, PCOS (recently prescribed estrogen supplementation, though not begun) and ongoing episodes of dizziness. [facility] from [facility] where she presented earlier today with acute onset ofa chest bubbling sensation which she describes as an episodic burning, stinging, mid- sternal sensation that does not radiate. She was at a coffee shop at the time when her apple watch showed her HRto be in the 150's. EKG obtained in the [place] [facility] had been concerning for possible repolarization abnormalities along with diffuse ST-depressions. [facility]. On evaluation, initial troponin had been wnl with metabolic panel and CBC also largely unremarkable. Her vitals on presentation were notable for HR in the 120's, BP 140's/90's. CXR with no acute findings demonstrated. Patient seen comfortably laying in bed, no acute distress with her father and boyfriend, Corey, at bedside. Patient states she currently feels a chest tightness sensation mid-sternal, rates 7-7.5/10.Says it initially began at 4pm at a coffee shop and states she had been feeling intermittently dizzy all day leading up to to it. 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 The burning sensation is not related to positional changes. Mentions that it is elicited by coughing and when she talks for prolonged periods - which makes her feel winded, as if I've just ran a marathon. She denies any recent fevers, chills, rhinorrhea. Bedside echo completed by the Car Record Clerk with no WMA's and normal EFobserved. Of note, patient has been reporting a multitude of various systemic symptoms in the past. Most recently, several weeks ago, she reported intermittent feeling of ear fullness / congestion which persisted despite antibiotic treatment. Additionally, she reports amenorrhea for the last few years which had been attributed to her underlying PCOS. She reports migraines that last a few hours which have recently been increasing in frequency to almost every 1-2 days. Reports static vision changes that last for several weeks approximately 1 year ago. Been reporting ongoing episodes of dizziness accompanying her multitude of symptoms. Review of Systems: Review of Systems Constitutional: Negative for chills, fatigue and fever. HENT: Negative for rhinorrhea, sore throat and trouble swallowing. Eyes: Negative for pain and visual disturbance. Respiratory: Positive for chest tightness. Negative for cough and shortness of breath. Cardiovascular: Negative for chest pain, palpitations and leg swelling. Gastrointestinal: Negative for abdominal pain, constipation, diarrhea, nausea and vomiting. Genitourinary: Positive for menstrual problem. Musculoskeletal: Negative for back pain, neck pain and neck stiffness. Skin: Negative for rash. Neurological: Positive for dizziness and headaches. Negative for weakness and light-headedness. Psychiatric/Behavioral: The patient is nervous/anxious. Past Medical History: Past Medical History: Diagnosis Date Exercise-induced asthma IC (interstitial cystitis) Multiple food allergies Past Surgical History: Past Surgical History: Procedure Laterality Date TONSILLECTOMY Family History: No family history on file. Social History: Social History Tobacco Use Smoking status: Never Allergies: Allergies Allergen Reactions Valier Oil Other reaction(s): Other (See Comments), Other (See Comments) Asthma exacerbation Asthma exacerbation Beef Allergy Hives Cvs Digestive Probiotic [Lactase-Lactobacillus] Hives Egg-Derived Products Hives Food allergy Lactose Other reaction(s): Unknown Allergy to all dairy Milk-Related Compounds Dairy. Emesis, upset stomach Nitrofurantoin Other reaction(s): Other (See Comments), Other (See Comments), Unknown Migraines, upset stomach Migraines, upset stomach Migraines, upset stomach Migraine and light headed Migraine and light headed Migraines, upset stomach Peanut Allergen Powder-Dnfp Hives Peanut-Containing Drug Products Asthma, emesis Pineapple Hives and Swelling Soy Allergy Other reaction(s): GI Intolerance, GI Intolerance, GI Upset, Unknown Soybean-Containing Drug Products Soy, Migraines and upset stomach Vancomycin Hives Medications: Current Outpatient Medications Medication Instructions albuterol 0.63 MG/3ML nebulizer solution 1 ampule, Inhalation albuterol 108 (90 Base) MCG/ACT inhaler 1 puff, Inhalation, Every 6 hours PRN Objective: Physical Examination: BP 120/77 Pulse 117 Temp 36.8 C (98.2 F) (Temporal) Resp 17 SpO2 98% Intake/Output Summary (Last 24 hours) at 02/28/2024 2334 Last data filed at 02/28/20242002 Gross per 24 hour Intake 1000 ml Output -- Net 1000 ml Physical Exam Vitals and nursing note reviewed. Constitutional: General: She is not in acute distress. Appearance: Normal appearance. She is not ill-appearing. HENT: Mouth/Throat: Mouth: Mucous membranes are moist. Pharynx: Oropharynx is clear. No oropharyngeal exudate. Eyes: Extraocular Movements: Extraocular movements intact. Neck: Vascular: No carotid bruit. Cardiovascular: Rate and Rhythm: Regular rhythm. Tachycardia present. Pulses: Normal pulses. Heart sounds: Normal heart sounds. No murmur heard. Pulmonary: Effort: Pulmonary effort is normal. No respiratory distress. Breath sounds: Normal breath sounds. Abdominal: General: Bowel sounds are normal. There is no distension. Palpations: Abdomen is soft. Tenderness: There is no abdominal tenderness. There is no guarding. Musculoskeletal: Right lower leg: No edema. Left lower leg: No edema. Skin: General: Skin is warm. Capillary Refill: Capillary refill takes less than 2 seconds. Neurological: Mental Status: She is alert and oriented to person, place, and time. Laboratory Tests: BMP: Lab Results Component Value Date NA 137 02/28/2024 K 3.7 02/28/2024 CL 102 02/28/2024 CO2 22 02/28/2024 BUN 12 02/28/2024 CREATININE 0.70 02/28/2024 GLUCOSE 88 02/28/2024 CALCIUM 9.8 02/28/2024 MG 2.1 02/28/2024 CBC: Lab Results Component Value Date WBC 6.7 02/28/2024 HGB 16.2 (H) 02/28/2024 HCT 46.9 02/28/2024 MCV 86.5 02/28/2024 PLT 319 02/28/2024 Cardiac profile: Lab Results Component Value Date BNP <20 02/28/2024 TROPONINI <0.012 02/28/2024 TROPONINI <0.012 02/28/2024 Coagulation: No results found for: PROTIME, INR, APTT Lipid panel: No results found for: CHOL, HDL, LDLCALC, TRIG Other: Lab Results Component Value Date TSH 2.803 02/28/2024 Chest Imaging: CXR: === 02/28/24 === XR CHEST 1 VIEW - Impression - Normal chest x-ray. Report Dictated on Electronically Signed By: Salvatore Terry MD Electronically Signed Date/Time: 02/28/2024 6:[address] Chest wo contrast: CTA Chest w and wo contrast: Cardiac Studies: Telemetry findings: Sinus Tachycardia up to the 120's Last EK02/28/24 ECG 12-LEAD 02/28/2024 8:24 PM (Final) Impression Sinus tachycardia Left atrial enlargement RSR' in V1 or V2, right VCD or RVH Repol abnrm suggests ischemia, diffuse leads EKG per my interpretation shows a sinus tachycardia at a rate of 110 with a normal axis. There is some nonspecific ST-T changes diffusely with diffuse J-point depression. There is no true ST elevation. Intervals within normal limits. There is no old EKG available for comparison. Electronically Signed On 02-28-2024 20:24:41 EDT by Boo Dorantes Signed by: Boo Dorantes MD on 02/28/2024 8:24 PM Last Echo: No results found for this or any previous visit. Last Cath: No results found for this or any previous visit. Last Stress Test: No results found for this or any previous visit. Last EP study: No results found for this or any previous visit. Assessment/Plan Chest Tightness and Burning Sinus Tachycardia - Do not feel that her underlying episodic chest tightness and burning appears to be cardiac in etiology. - Etiologies considered include pericarditis (viral?) vs tightness burning due to electrolyte abnormalities (I.e. hypocalcemia) vs asthma related vs PE - No tenderness to palpation, is non-positional in nature, non-reproducible with palpation. EKG also not suggestive of typical pericarditis - Well's score: 1.5; therefore less likely to be PE. D-dimer also wnl. Less concern for PE and therefore not ordering CTA chest - Suspecting hypocalcemia given constellation of sxs that would suggest underlying metabolic disturbances - Potentially sinus tachycardia in setting of viral illness Plan: - Admitted to CCU for further workup and management - Daily EKG - Trend troponin - Checking CK/CK-MB - TTE ordered - ESR and CRP inflammatory markers - Ibuprofen for pain - Telemetry monitoring - Pneumonia PCR ordered - Daily CBC and BMP - Daily Mg and Phos - Lipid panel - A1c - TSH level PCOS Secondary Amenorrhea - [facility] [place]) - Checking prolactin levels - patient recently prescribed estrogen replacement therapy however not started on it - Consider MRI brain vs CTH to assess for structural abnormalities (I.e. pituitary macroadenoma or prolactinoma that could be explaining her current constellation of symptoms) Exercise Induced Asthma - Patient on inhaled soulmedrol in the OP - Would benefit from short-acting B2 agonist in combination; however, unfavorable at this time given sinus tachycardia - Goals of Care: No Order - DVT Prophylaxis: No VTE Prophylaxis Needed - patient adequately able to ambulate - GI Prophylaxis: Protonix daily - Diet: General - BMI Classification: There is no height or weight on file to calculate BMI. - Disposition: Admit to CCU. Associated attestation - Tami Darnell MD - 02/29/2024 4:30 PM EDT I, Dr. Tami Darnell, saw and evaluated the patient 02/29/24. I personally obtained the betancur and critical portions of the history and physical exam. I reviewed the chart and discussed the patient with the resident. I agree with the resident's medical decision making. In summary, 28-year-old woman with history of asthma, anxiety, depression, PCOS, several year history of dizziness, chest discomfort, dyspnea, palpitations attributed to possible postacute sequelae of COVID-19 infection, who presented to the ER with worsening of her chronic chest pain and dyspnea. Initial EKG showed sinus tachycardia with diffuse ST depression, but EKG is normal today.Lab work has been unremarkable. Normal CMP, troponin, BNP, inflammatory markers. No signs of infection, viral panel negative. Appears nontoxic on exam. Her exam actually is within normal limits. Will evaluate for structural abnormalities with echocardiogram. Some of her symptoms are worse after eating, will add trial of high-dose PPI for a month. If echo unremarkable, would encourage increasing sodium intake, staying well-hydrated given a lot of her symptoms are orthostatic. Likely able to discharge home later today, orat least transfer out of the CCU based on pending workup. [employer] Work Phone: [phone]) [phone] History and physical note* Bang Davies MD - 02/28/2024 10:14 PM EDT Images from the original note were not included. [facility] [place] [facility] CCU HISTORY & PHYSICAL Patient Name: Amie Braxton : 1995 Date of Admission: 02/28/2024 5:29 PM Established skin pass operator: None Subjective: Chief Complaint: Chest tightness and burning with ST-changes on EKG History of Present Illness: Amie Braxton is a 28 y.o. female with a PMH exercise-induced asthma, PCOS (recently prescribed estrogen supplementation, though not begun) and ongoing episodes of dizziness. She presented to [facility] as a direct transfer from [facility] where she presented earlier today with acute onset ofa chest bubbling sensation which she describes as an episodic burning, stinging, mid- sternal sensation that does not radiate. She was at a coffee shop at the time when her apple watch showed her HRto be in the 150's. EKG obtained in the [place] ER had been concerning for possible repolarization abnormalities along with diffuse ST-depressions. She was transferred to [facility] for initial concern for SCAD. On evaluation, initial troponin had been wnl with metabolic panel and CBC also largely unremarkable. Her vitals on presentation were notable for HR in the 120's, BP 140's/90's. CXR with no acute findings demonstrated. Patient seen comfortably laying in bed, no acute distress with her father and boyfriend, Croey, at bedside. Patient states she currently feels a chest tightness sensation mid-sternal, rates 7-7.5/10.Says it initially began at 4pm at a coffee shop and states she had been feeling intermittently dizzy all day leading up to to it. 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 The burning sensation is not related to positional changes. Mentions that it is elicited by coughing and when she talks for prolonged periods - which makes her feel winded, as if I've just ran a marathon. She denies any recent fevers, chills, rhinorrhea. Bedside echo completed by the Car Record Clerk with no WMA's and normal EFobserved. Of note, patient has been reporting a multitude of various systemic symptoms in the past. Most recently, several weeks ago, she reported intermittent feeling of ear fullness / congestion which persisted despite antibiotic treatment. Additionally, she reports amenorrhea for the last few years which had been attributed to her underlying PCOS. She reports migraines that last a few hours which have recently been increasing in frequency to almost every 1-2 days. Reports static vision changes that last for several weeks approximately 1 year ago. Been reporting ongoing episodes of dizziness accompanying her multitude of symptoms. Review of Systems: Review of Systems Constitutional: Negative for chills, fatigue and fever. HENT: Negative for rhinorrhea, sore throat and trouble swallowing. Eyes: Negative for pain and visual disturbance. Respiratory: Positive for chest tightness. Negative for cough and shortness of breath. Cardiovascular: Negative for chest pain, palpitations and leg swelling. Gastrointestinal: Negative for abdominal pain, constipation, diarrhea, nausea and vomiting. Genitourinary: Positive for menstrual problem. Musculoskeletal: Negative for back pain, neck pain and neck stiffness. Skin: Negative for rash. Neurological: Positive for dizziness and headaches. Negative for weakness and light-headedness. Psychiatric/Behavioral: The patient is nervous/anxious. Past Medical History: Past Medical History: Diagnosis Date Exercise-induced asthma IC (interstitial cystitis) Multiple food allergies Past Surgical History: Past Surgical History: Procedure Laterality Date TONSILLECTOMY Family History: No family history on file. Social History: Social History Tobacco Use Smoking status: Never Allergies: Allergies Allergen Reactions Valier Oil Other reaction(s): Other (See Comments), Other (See Comments) Asthma exacerbation Asthma exacerbation Beef Allergy Hives Cvs Digestive Probiotic [Lactase-Lactobacillus] Hives Egg-Derived Products Hives Food allergy Lactose Other reaction(s): Unknown Allergy to all dairy Milk-Related Compounds Dairy. Emesis, upset stomach Nitrofurantoin Other reaction(s): Other (See Comments), Other (See Comments), Unknown Migraines, upset stomach Migraines, upset stomach Migraines, upset stomach Migraine and light headed Migraine and light headed Migraines, upset stomach Peanut Allergen Powder-Dnfp Hives Peanut-Containing Drug Products Asthma, emesis Pineapple Hives and Swelling Soy Allergy Other reaction(s): GI Intolerance, GI Intolerance, GI Upset, Unknown Soybean-Containing Drug Products Soy, Migraines and upset stomach Vancomycin Hives Medications: Current Outpatient Medications Medication Instructions albuterol 0.63 MG/3ML nebulizer solution 1 ampule, Inhalation albuterol 108 (90 Base) MCG/ACT inhaler 1 puff, Inhalation, Every 6 hours PRN Objective: Physical Examination: BP 120/77 Pulse 117 Temp 36.8 C (98.2 F) (Temporal) Resp 17 SpO2 98% Intake/Output Summary (Last 24 hours) at 02/28/2024 2334 Last data filed at 02/28/20242002 Gross per 24 hour Intake 1000 ml Output -- Net 1000 ml Physical Exam Vitals and nursing note reviewed. Constitutional: General: She is not in acute distress. Appearance: Normal appearance. She is not ill-appearing. HENT: Mouth/Throat: Mouth: Mucous membranes are moist. Pharynx: Oropharynx is clear. No oropharyngeal exudate. Eyes: Extraocular Movements: Extraocular movements intact. Neck: Vascular: No carotid bruit. Cardiovascular: Rate and Rhythm: Regular rhythm. Tachycardia present. Pulses: Normal pulses. Heart sounds: Normal heart sounds. No murmur heard. Pulmonary: Effort: Pulmonary effort is normal. No respiratory distress. Breath sounds: Normal breath sounds. Abdominal: General: Bowel sounds are normal. There is no distension. Palpations: Abdomen is soft. Tenderness: There is no abdominal tenderness. There is no guarding. Musculoskeletal: Right lower leg: No edema. Left lower leg: No edema. Skin: General: Skin is warm. Capillary Refill: Capillary refill takes less than 2 seconds. Neurological: Mental Status: She is alert and oriented to person, place, and time. Laboratory Tests: BMP: Lab Results Component Value Date NA 137 02/28/2024 K 3.7 02/28/2024 CL 102 02/28/2024 CO2 22 02/28/2024 BUN 12 02/28/2024 CREATININE 0.70 02/28/2024 GLUCOSE 88 02/28/2024 CALCIUM 9.8 02/28/2024 MG 2.1 02/28/2024 CBC: Lab Results Component Value Date WBC 6.7 02/28/2024 HGB 16.2 (H) 02/28/2024 HCT 46.9 02/28/2024 MCV 86.5 02/28/2024 PLT 319 02/28/2024 Cardiac profile: Lab Results Component Value Date BNP <20 02/28/2024 TROPONINI <0.012 02/28/2024 TROPONINI <0.012 02/28/2024 Coagulation: No results found for: PROTIME, INR, APTT Lipid panel: No results found for: CHOL, HDL, LDLCALC, TRIG Other: Lab Results Component Value Date TSH 2.803 02/28/2024 Chest Imaging: CXR: === 02/28/24 === XR CHEST 1 VIEW - Impression - Normal chest x-ray. Report Dictated on Electronically Signed By: Salvatore Terry MD Electronically Signed Date/Time: 02/28/2024 6:[address] Chest wo contrast: CTA Chest w and wo contrast: Cardiac Studies: Telemetry findings: Sinus Tachycardia up to the 120's Last EK02/28/24 ECG 12-LEAD 02/28/2024 8:24 PM (Final) Impression Sinus tachycardia Left atrial enlargement RSR' in V1 or V2, right VCD or RVH Repol abnrm suggests ischemia, diffuse leads EKG per my interpretation shows a sinus tachycardia at a rate of 110 with a normal axis. There is some nonspecific ST-T changes diffusely with diffuse J-point depression. There is no true ST elevation. Intervals within normal limits. There is no old EKG available for comparison. Electronically Signed On 02-28-2024 20:24:41 EDT by Boo Dorantes Signed by: Boo Dorantes MD on 02/28/2024 8:24 PM Last Echo: No results found for this or any previous visit. Last Cath: No results found for this or any previous visit. Last Stress Test: No results found for this or any previous visit. Last EP study: No results found for this or any previous visit. Assessment/Plan Chest Tightness and Burning Sinus Tachycardia - Do not feel that her underlying episodic chest tightness and burning appears to be cardiac in etiology. - Etiologies considered include pericarditis (viral?) vs tightness burning due to electrolyte abnormalities (I.e. hypocalcemia) vs asthma related vs PE - No tenderness to palpation, is non-positional in nature, non-reproducible with palpation. EKG also not suggestive of typical pericarditis - Well's score: 1.5; therefore less likely to be PE. D-dimer also wnl. Less concern for PE and therefore not ordering CTA chest - Suspecting hypocalcemia given constellation of sxs that would suggest underlying metabolic disturbances - Potentially sinus tachycardia in setting of viral illness Plan: - Admitted to CCU for further workup and management - Daily EKG - Trend troponin - Checking CK/CK-MB - TTE ordered - ESR and CRP inflammatory markers - Ibuprofen for pain - Telemetry monitoring - Pneumonia PCR ordered - Daily CBC and BMP - Daily Mg and Phos - Lipid panel - A1c - TSH level PCOS Secondary Amenorrhea - Patient follows at [facility] ([facility] [place]) - Checking prolactin levels - patient recently prescribed estrogen replacement therapy however not started on it - Consider MRI brain vs CTH to assess for structural abnormalities (I.e. pituitary macroadenoma or prolactinoma that could be explaining her current constellation of symptoms) Exercise Induced Asthma - Patient on inhaled soulmedrol in the OP - Would benefit from short-acting B2 agonist in combination; however, unfavorable at this time given sinus tachycardia - Goals of Care: No Order - DVT Prophylaxis: No VTE Prophylaxis Needed - patient adequately able to ambulate - GI Prophylaxis: Protonix daily - Diet: General - BMI Classification: There is no height or weight on file to calculate BMI. - Disposition: Admit to CCU. Associated attestation - Tami Darnell MD - 02/29/2024 4:30 PM EDT I, Dr. Tami Darnell, saw and evaluated the patient 02/29/24. I personally obtained the betancur and critical portions of the history and physical exam. I reviewed the chart and discussed the patient with the resident. I agree with the resident's medical decision making. In summary, 28-year-old woman with history of asthma, anxiety, depression, PCOS, several year history of dizziness, chest discomfort, dyspnea, palpitations attributed to possible postacute sequelae of COVID-19 infection, who presented to the ER with worsening of her chronic chest pain and dyspnea. Initial EKG showed sinus tachycardia with diffuse ST depression, but EKG is normal today.Lab work has been unremarkable. Normal CMP, troponin, BNP, inflammatory markers. No signs of infection, viral panel negative. Appears nontoxic on exam. Her exam actually is within normal limits. Will evaluate for structural abnormalities with echocardiogram. Some of her symptoms are worse after eating, will add trial of high-dose PPI for a month. If echo unremarkable, would encourage increasing sodium intake, staying well-hydrated given a lot of her symptoms are orthostatic. Likely able to discharge home later today, orat least transfer out of the CCU based on pending workup. documented in this [facility]08-20-2024 Note Attestation signed by Tami Darnell MD at 02/29/2024 4:30 PM I, Dr. Tami Darnell, saw and evaluated the patient 02/29/24. I personally obtained the betancur and critical portions of the history and physical exam. I reviewed the chart and discussed the patient with the resident. I agree with the resident's medical decision making. In summary, 28-year-old woman with history of asthma, anxiety, depression, PCOS, several year history of dizziness, chest discomfort, dyspnea, palpitations attributed to possible postacute sequelae of COVID-19 infection, who presented to the ER with worsening of her chronic chest pain and dyspnea. Initial EKG showed sinus tachycardia with diffuse ST depression, but EKG is normal today.Lab work has been unremarkable. Normal CMP, troponin, BNP, inflammatory markers. No signs of infection, viral panel negative. Appears nontoxic on exam. Her exam actually is within normal limits. Will evaluate for structural abnormalities with echocardiogram. Some of her symptoms are worse after eating, will add trial of high-dose PPI for a month. If echo unremarkable, would encourage increasing sodium intake, staying well-hydrated given a lot of her symptoms are orthostatic. Likely able to discharge home later today, or at least transfer out of the CCU based on pending workup. [facility] CCU HISTORY & PHYSICAL Patient Name: Amie Braxton : 1995 Date of Admission: 02/28/2024 5:29 PM Established skin pass operator: None Subjective: Chief Complaint: Chest tightness and burning with ST-changes on EKG History of Present Illness: Amie Braxton is a 28 y.o. female with a PMH exercise-induced asthma, PCOS (recently prescribed estrogen supplementation, though not begun) and ongoing episodes of dizziness. She presented to [facility]U as a direct transfer from [facility] where she presented earlier today with acute onset of a chest bubbling sensation which she describes as an episodic burning, stinging, mid-sternal sensation that does not radiate. She was at a coffee shop at the time when her apple watch showed her HR to be in the 150's. EKG obtained in the [place] ER had been concerning for possible repolarization abnormalities along with diffuse ST-depressions. She was transferred to [facility] for initial concern for SCAD. On evaluation, initial troponin had been wnl with metabolic panel and CBC also largely unremarkable. Her vitals on presentation were notable for HR in the 120's, BP 140's/90's. CXR with no acute findings demonstrated. Patient seen comfortably laying in bed, no acute distress with her father and boyfriend, Corey, at bedside. Patient states she currently feels a chest tightness sensation mid-sternal, rates 7-7.5/10. Says it initially began at 4pm at a coffee shop and states she had been feeling intermittently dizzy all day leading up to to it. 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 The burning sensation is not related to positional changes. Mentions that it is elicited by coughing and when she talks for prolonged periods - which makes her feel winded, as if I've just ran a marathon. She denies any recent fevers, chills, rhinorrhea. Bedside echo completed by the Car Record Clerk with no WMA's and normal EF observed. Of note, patient has been reporting a multitude of various systemic symptoms in the past. Most recently, several weeks ago, she reported intermittent feeling of ear fullness / congestion which persisted despite antibiotic treatment. Additionally, she reports amenorrhea for the last few years which had been attributed to her underlying PCOS. She reports migraines that last a few hours which have recently been increasing in frequency to almost every 1-2 days. Reports static vision changes that last for several weeks approximately 1 year ago. Been reporting ongoing episodes of dizziness accompanying her multitude of symptoms. Review of Systems: Review of Systems Constitutional: Negative for chills, fatigue and fever. HENT: Negative for rhinorrhea, sore throat and trouble swallowing. Eyes: Negative for pain and visual disturbance. Respiratory: Positive for chest tightness. Negative for cough and shortness of breath. Cardiovascular: Negative for chest pain, palpitations and leg swelling. Gastrointestinal: Negative for abdominal pain, constipation, diarrhea, nausea and vomiting. Genitourinary: Positive for menstrual problem. Musculoskeletal: Negative for back pain, neck pain and neck stiffness. Skin: Negative for rash. Neurological: Positive for dizziness and headaches. Negative for weakness and light-headedness. Psychiatric/Behavioral: The p (more content not included)...[facility]08-20-2024 Emergency department Note* Boo Dorantes MD - 02/28/2024 5:25 PM EDT EMERGENCY DEPARTMENT ENCOUNTER Pt Name: Amie Braxton Birthdate 1995 Date of evaluation: 02/28/2024 ED Provider: Boo Dorantes MD CHIEF COMPLAINT Chief Complaint Patient presents with Other Pt states that an hour ago she had an episode in which she felt that there was a bubble in her chest, which went away and was followed by the sensation of pins and needles throughout her whole body, along with dizziness. Pt still reporting dizziness and the pins & needles sensation, but states the sensation of a bubble in her chest has gone away. Pt reports she was recently diagnosed with a panic disorder and started prozac 9 days ago HISTORY OF PRESENT ILLNESS (Location/Symptom, Timing/Onset, Context/Setting, Quality, Duration, Modifying Factors, Severity) Note limiting factors. I wore appropriate PPE for the entirety of this encounter. HPI Amie Braxton is a 28 y.o. who presents to the emergency department with chief complaint of chestdiscomfort and paresthesias. The patient said she was sitting at a coffee shop. All of a sudden shedeveloped a bubbling in her chest. It was very brief. After that she developed a stinging sensationall over her body which she still has. She said her Apple Watch told her that her heart rate shot up to 150. She was trying to calm herself down. She has had tachycardia before, but not really to this extent. She denies any other cardiac history that she is aware of. The patient feels dizzy with this, but she has had dizziness on and off for a very long time. She has been working with her doctor to treat that. She did feel tightness across her chest. She felt like she could not catch her breath. The patient denies any other cardiac or pulmonary history that she is aware. She was very diaphoretic when this happened although denies any fevers or chills. She has a slight headache although vision normal. She had a slight cough at the time although no other URI symptoms described. She denies any abdominal pain, vomiting or diarrhea. No urinary complaints. She denies being . No new pain or swelling in her legs. No localizing numbness or weakness. No excessive stress or anxiety described. No other symptoms. She denies smoke, alcohol or drug use. She is unaware of any cardiac history in the family. Nursing Notes were reviewed. Limitations to history: None Outside historians: Family REVIEW OF SYSTEMS Review of Systems Constitutional: Positive for diaphoresis. Negative for chills and fever. HENT: Negative for sore throat. Eyes: Negative for visual disturbance. Respiratory: Positive for cough and shortness of breath. Cardiovascular: Positive for chest pain. Gastrointestinal: Negative for abdominal pain, diarrhea and vomiting. Genitourinary: Negative for dysuria. Musculoskeletal: Negative. Skin: Negative for color change and rash. Neurological: Positive for dizziness, light-headedness and headaches. Negative for syncope, weakness and numbness. Describes diffuse paresthesias. Psychiatric/Behavioral: Negative. The patient is not nervous/anxious. All other systems reviewed and are negative. Pertinent positives and negatives as per HPI. PAST MEDICAL HISTORY Past Medical History: Diagnosis Date Exercise-induced asthma IC (interstitial cystitis) Multiple food allergies SURGICAL HISTORY Past Surgical History: Procedure Laterality Date TONSILLECTOMY CURRENT MEDICATIONS Previous Medications ALBUTEROL 0.63 MG/3ML NEBULIZER SOLUTION Inhale 1 ampule. ALBUTEROL 108 (90 BASE) MCG/ACT INHALER Inhale 1 puff every 6 hours as needed. ALLERGIES Valier oil, Beef allergy, Cvs digestive probiotic [lactase-lactobacillus], Egg- derived products, Lactose, Milk-related compounds, Nitrofurantoin, Peanut allergen powder-dnfp, Peanut-containing drug products, Pineapple, Soy allergy, Soybean-containing drug products, and Vancomycin FAMILY HISTORY No family history on file. SOCIAL HISTORY Social History Socioeconomic History Marital status: Single Tobacco Use Smoking status: Never SCREENINGS [place] Coma Scale Best Eye Response: Spontaneous Best Verbal Response: Oriented Best Motor Response: Follows commands Jorje Coma Scale Score: 15 PHYSICAL EXAM ED Triage Vitals [02/28/24 1726] Temp Heart Rate Resp BP 37.1 C (98.8 F) (!) 120 18 (!) 140/90 SpO2 Temp Source Heart Rate Source Patient Position 100 % Temporal Monitor -- BP Location FiO2 (%) -- -- Physical Exam Vitals and nursing note reviewed. Exam conducted with a cloth shrinking machine operator helper present. Constitutional: Appearance: Normal appearance. She is well-developed and normal weight. She is not toxic-appearing. Comments: Patient appears uncomfortable although nontoxic. HENT: Head: Normocephalic and atraumatic. Right Ear: External ear normal. Left Ear: External ear normal. Nose: Nose normal. Mouth/Throat: Mouth: Mucous membranes are moist. Pharynx: Oropharynx is clear. Eyes: General: No scleral icterus. Extraocular Movements: Extraocular movements intact. Conjunctiva/sclera: Conjunctivae normal. Pupils: Pupils are equal, round, and reactive to light. Cardiovascular: Rate and Rhythm: Regular rhythm. Tachycardia present. Heart sounds: Normal heart sounds. No murmur heard. Pulmonary: Effort: Pulmonary effort is normal. No respiratory distress. Breath sounds: Normal breath sounds. No rhonchi or rales. Abdominal: General: Bowel sounds are normal. Palpations: Abdomen is soft. Tenderness: There is no abdominal tenderness. Musculoskeletal: General: No swelling or tenderness. Normal range of motion. Cervical back: Normal range of motion and neck supple. Skin: General: Skin is warm and dry. Coloration: Skin is not jaundiced or pale. Findings: No erythema. Neurological: General: No focal deficit present. Mental Status: She is alert and oriented to person, place, and time. GCS: GCS eye subscore is 4. GCS verbal subscore is 5. GCS motor subscore is 6. Cranial Nerves: Cranial nerves 2-12 are intact. Sensory: Sensation is intact. Motor: Motor function is intact. Coordination: Coordination is intact. Comments: NIH is a 0. Psychiatric: Mood and Affect: Mood normal. Behavior: Behavior normal. Thought Content: Thought content normal. Judgment: Judgment normal. DIAGNOSTIC RESULTS Procedures/EKG: EKG per my interpretation showed a sinus tachycardia at a rate of 120 with a normal axis. There maybe left atrial enlargement. There is RSR prime V1-V2. She has some nonspecific ST-T changes diffusely. Intervals within normal notes otherwise. There is no old EKG available for comparison. EKG was reviewed by myself. [facility] RAD[facility]OLOGY (Per Emergency Physician): X-rays interpreted by me showed no evidence of failure or infiltrate. Interpretation per the Radiologist below, if available at the time of this note: XR chest 1 view Final Result Normal chest x-ray. Report Dictated on Electronically Signed By: Salvatore Terry MD Electronically Signed Date/Time: 02/28/2024 6:11 PM EDT ED BEDSIDE ULTRASOUND: Performed by ED Physician - none LABS: Labs Reviewed CBC WITH AUTO DIFFERENTIAL - Abnormal Result Value Auto WBC 6.7 RBC 5.42 (*) Hemoglobin 16.2 (*) Hematocrit 46.9 MCV 86.5 MCH 29.9 MCHC 34.5 RDW 13.1 Platelets 319 MPV 10.7 nRBC 0.0 Neutrophils Relative 72.3 Lymphocytes Relative 20.0 Monocytes Relative 5.4 Eosinophils Relative 0.9 Basophils Relative 1.0 Immature Grans % 0.4 Neutrophils Absolute 4.8 Lymphocytes Absolute 1.3 Monocytes Absolute 0.4 Eosinophils Absolute 0.1 Basophils Absolute 0.1 Immature Grans Absolute 0.0 COMPREHENSIVE METABOLIC PANEL - Abnormal SODIUM 137 POTASSIUM 3.7 CHLORIDE 102 CARBON DIOXIDE 22 ANION GAP 13 UREA NITROGEN 12 CREATININE 0.70 GLUCOSE 88 CALCIUM 9.8 AST (SGOT) 28 ALT 27 ALKALINE PHOSPHATASE 67 ALBUMIN 5.1 (*) BILIRUBIN, TOTAL 0.7 TOTAL PROTEIN 8.0 eGFR >90.0 TROPONIN, WITH SERIAL REFLEX - Normal TROPONIN I <0.012 Narrative: Patients with high levels of Biotin oral intake (ie >5 mg/day) may have falsely decreased Troponin levels. NT PRO BNP - Normal NT PRO BNP <20 D-DIMER,QUANTITATIVE - Normal D-DIMER, INNOVANCE <0.19 Narrative: Innovance D-Dimer values of <0.50 mg/L FEU can be used in combination with a pre-test probability model (e.g. Well's) to exclude pulmonary embolism (PE) disease, as well as an aid in the diagnosisof deep vein thrombosis (DVT). MAGNESIUM - Normal MAGNESIUM 2.1 THYROID STIMULATING HORMONE All other labs were within normal range or not returned as of this dictation. EMERGENCY DEPARTMENT COURSE and DIFFERENTIAL DIAGNOSIS/MDM: Vitals: Vitals: 02/28/24 1726 BP: (!) 140/90 Pulse: (!) 120 Resp: 18 Temp: 37.1 C (98.8 F) TempSrc: Temporal SpO2: 100% Diagnoses as of 02/28/24 1843 Tachycardia Chest pain, unspecified type Abnormal EKG The patient presented with chief complaint of chest pain and paresthesias. The differential diagnosis associated with this patient's presentation includes anxiety, electrolyte abnormality, tachycardia, ACS, PE less likely, underlying thyroid issue. Our workup consisted of ordering/reviewing: Cardiac workup including EKG, chest x-ray lab work obtained. Patient is in agreement with this plan. Medications sodium chloride 0.9 % bolus 1,000 mL (1,000 mL IntraVENous New Bag 02/28/241756) aspirin chewable tablet 324 mg (324 mg Oral Given 02/28/241756) REVAL: Even on the patient symptoms were atypical, ordered cardiac workup. EKG shows sinus tachycardia with some questionable ischemic changes which may be rate related. I ordered 4 baby aspirin. I did consult the on-call skin pass operator. He reviewed the EKG. He actually asked that we contact the CCU fellow.I reminded him that the patient is at [place]. I reached out to the CCU at [facility]. A second EKG was obtained. Second EKG appears similar to the first EKG, but the ST-T changes inferiorly are slightly improved from the initial EKG. The patient is not really describing chest pain or chest discomfort. She does has a hot and cold sensation in her chest and still describes paresthesias like before. Preliminary lab work is unremarkable. Troponin is pending. D-dimer negative. IV fluids were given as well. At this point I told the patient that we would need to transfer her to [facility] for more definitive evaluation and treatment. I did speak with the CCU staff who will accept her. She has not a STEMI candidate, but would benefit from definitive evaluation such as an echo. The cause of her symptoms may be related to an underlying cardiac issue. Patient is aware the plan. CRITICAL CARE TIME Total Critical Care time was 30 minutes, excluding separately reportable procedures. There was a high probability of clinically significant/life threatening deterioration in the patient's condition which required my urgent intervention. CONSULTS: None FINAL IMPRESSION 1. Tachycardia 2. Chest pain, unspecified type 3. Abnormal EKG DISPOSITION Admit 02/28/2024 06:40:35 PM PATIENT REFERRED TO: No follow-up provider specified. DISCHARGE MEDICATIONS: New Prescriptions No medications on file (Comment: Please note this report has been produced using speech recognition software and may contain errors related to that system including errors in grammar, punctuation, and spelling, as well as words and phrases that may be inappropriate. If there are any questions or concerns please feel freeto contact the dictating provider for clarification.) Boo Dorantes MD (electronically signed) Emergency Medicine Provider Boo Dorantes MD 02/28/24 1843 documented in this [facility]08-20-[facility]24 Physician Emergency department Note* Boo Dorantes MD - 02/28/2024 5:25 PM EDT EMERGENCY DEPARTMENT ENCOUNTER Pt Name: Amie Brxaton Birthdate 1995 Date of evaluation: 02/28/2024 ED Provider: Boo Dorantes MD CHIEF COMPLAINT Chief Complaint Patient presents with Other Pt states that an hour ago she had an episode in which she felt that there was a bubble in her chest, which went away and was followed by the sensation of pins and needles throughout her whole body, along with dizziness. Pt still reporting dizziness and the pins & needles sensation, but states the sensation of a bubble in her chest has gone away. Pt reports she was recently diagnosed with a panic disorder and started prozac 9 days ago HISTORY OF PRESENT ILLNESS (Location/Symptom, Timing/Onset, Context/Setting, Quality, Duration, Modifying Factors, Severity) Note limiting factors. I wore appropriate PPE for the entirety of this encounter. DONNA Braxton is a 28 y.o. who presents to the emergency department with chief complaint of chestdiscomfort and paresthesias. The patient said she was sitting at a coffee shop. All of a sudden shedeveloped a bubbling in her chest. It was very brief. After that she developed a stinging sensationall over her body which she still has. She said her Apple Watch told her that her heart rate shot up to 150. She was trying to calm herself down. She has had tachycardia before, but not really to this extent. She denies any other cardiac history that she is aware of. The patient feels dizzy with this, but she has had dizziness on and off for a very long time. She has been working with her doctor to treat that. She did feel tightness across her chest. She felt like she could not catch her breath. The patient denies any other cardiac or pulmonary history that she is aware. She was very diaphoretic when this happened although denies any fevers or chills. She has a slight headache although vision normal. She had a slight cough at the time although no other URI symptoms described. She denies any abdominal pain, vomiting or diarrhea. No urinary complaints. She denies being . No new pain or swelling in her legs. No localizing numbness or weakness. No excessive stress or anxiety described. No other symptoms. She denies smoke, alcohol or drug use. She is unaware of any cardiac history in the family. Nursing Notes were reviewed. Limitations to history: None Outside historians: Family REVIEW OF SYSTEMS Review of Systems Constitutional: Positive for diaphoresis. Negative for chills and fever. HENT: Negative for sore throat. Eyes: Negative for visual disturbance. Respiratory: Positive for cough and shortness of breath. Cardiovascular: Positive for chest pain. Gastrointestinal: Negative for abdominal pain, diarrhea and vomiting. Genitourinary: Negative for dysuria. Musculoskeletal: Negative. Skin: Negative for color change and rash. Neurological: Positive for dizziness, light-headedness and headaches. Negative for syncope, weakness and numbness. Describes diffuse paresthesias. Psychiatric/Behavioral: Negative. The patient is not nervous/anxious. All other systems reviewed and are negative. Pertinent positives and negatives as per HPI. PAST MEDICAL HISTORY Past Medical History: Diagnosis Date Exercise-induced asthma IC (interstitial cystitis) Multiple food allergies SURGICAL HISTORY Past Surgical History: Procedure Laterality Date TONSILLECTOMY CURRENT MEDICATIONS Previous Medications ALBUTEROL 0.63 MG/3ML NEBULIZER SOLUTION Inhale 1 ampule. ALBUTEROL 108 (90 BASE) MCG/ACT INHALER Inhale 1 puff every 6 hours as needed. ALLERGIES Valier oil, Beef allergy, Cvs digestive probiotic [lactase-lactobacillus], Egg- derived products, Lactose, Milk-related compounds, Nitrofurantoin, Peanut allergen powder-dnfp, Peanut-containing drug products, Pineapple, Soy allergy, Soybean-containing drug products, and Vancomycin FAMILY HISTORY No family history on file. SOCIAL HISTORY Social History Socioeconomic History Marital status: Single Tobacco Use Smoking status: Never SCREENINGS [place] Coma Scale Best Eye Response: Spontaneous Best Verbal Response: Oriented Best Motor Response: Follows commands Jorje Coma Scale Score: 15 PHYSICAL EXAM ED Triage Vitals [02/28/24 1726] Temp Heart Rate Resp BP 37.1 C (98.8 F) (!) 120 18 (!) 140/90 SpO2 Temp Source Heart Rate Source Patient Position 100 % Temporal Monitor -- BP Location FiO2 (%) -- -- Physical Exam Vitals and nursing note reviewed. Exam conducted with a cloth shrinking machine operator helper present. Constitutional: Appearance: Normal appearance. She is well-developed and normal weight. She is not toxic-appearing. Comments: Patient appears uncomfortable although nontoxic. HENT: Head: Normocephalic and atraumatic. Right Ear: External ear normal. Left Ear: External ear normal. Nose: Nose normal. Mouth/Throat: Mouth: Mucous membranes are moist. Pharynx: Oropharynx is clear. Eyes: General: No scleral icterus. Extraocular Movements: Extraocular movements intact. Conjunctiva/sclera: Conjunctivae normal. Pupils: Pupils are equal, round, and reactive to light. Cardiovascular: Rate and Rhythm: Regular rhythm. Tachycardia present. Heart sounds: Normal heart sounds. No murmur heard. Pulmonary: Effort: Pulmonary effort is normal. No respiratory distress. Breath sounds: Normal breath sounds. No rhonchi or rales. Abdominal: General: Bowel sounds are normal. Palpations: Abdomen is soft. Tenderness: There is no abdominal tenderness. Musculoskeletal: General: No swelling or tenderness. Normal range of motion. Cervical back: Normal range of motion and neck supple. Skin: General: Skin is warm and dry. Coloration: Skin is not jaundiced or pale. Findings: No erythema. Neurological: General: No focal deficit present. Mental Status: She is alert and oriented to person, place, and time. GCS: GCS eye subscore is 4. GCS verbal subscore is 5. GCS motor subscore is 6. Cranial Nerves: Cranial nerves 2-12 are intact. Sensory: Sensation is intact. Motor: Motor function is intact. Coordination: Coordination is intact. Comments: NIH is a 0. Psychiatric: Mood and Affect: Mood normal. Behavior: Behavior normal. Thought Content: Thought content normal. Judgment: Judgment normal. DIAGNOSTIC RESULTS Procedures/EKG: EKG per my interpretation showed a sinus tachycardia at a rate of 120 with a normal axis. There maybe left atrial enlargement. There is RSR prime V1-V2. She has some nonspecific ST-T changes diffusely. Intervals within normal notes otherwise. There is no old EKG available for comparison. EKG was reviewed by myself. Physician EKG interpretation can be found in [facility] RADIOLOGY (Per Emergency Physician): X-rays interpreted by me showed no evidence of failure or infiltrate. Interpretation per the Radiologist below, if available at the time of this note: XR chest 1 view Final Result Normal chest x-ray. Report Dictated on Electronically Signed By: Salvatore Terry MD Electronically Signed Date/Time: 02/28/2024 6:11 PM EDT ED BEDSIDE ULTRASOUND: Performed by ED Physician - none LABS: Labs Reviewed CBC WITH AUTO DIFFERENTIAL - Abnormal Result Value Auto WBC 6.7 RBC 5.42 (*) Hemoglobin 16.2 (*) Hematocrit 46.9 MCV 86.5 MCH 29.9 MCHC 34.5 RDW 13.1 Platelets 319 MPV 10.7 nRBC 0.0 Neutrophils Relative 72.3 Lymphocytes Relative 20.0 Monocytes Relative 5.4 Eosinophils Relative 0.9 Basophils Relative 1.0 Immature Grans % 0.4 Neutrophils Absolute 4.8 Lymphocytes Absolute 1.3 Monocytes Absolute 0.4 Eosinophils Absolute 0.1 Basophils Absolute 0.1 Immature Grans Absolute 0.0 COMPREHENSIVE METABOLIC PANEL - Abnormal SODIUM 137 POTASSIUM 3.7 CHLORIDE 102 CARBON DIOXIDE 22 ANION GAP 13 UREA NITROGEN 12 CREATININE 0.70 GLUCOSE 88 CALCIUM 9.8 AST (SGOT) 28 ALT 27 ALKALINE PHOSPHATASE 67 ALBUMIN 5.1 (*) BILIRUBIN, TOTAL 0.7 TOTAL PROTEIN 8.0 eGFR >90.0 TROPONIN, WITH SERIAL REFLEX - Normal TROPONIN I <0.012 Narrative: Patients with high levels of Biotin oral intake (ie >5 mg/day) may have falsely decreased Troponin levels. NT PRO BNP - Normal NT PRO BNP <20 D-DIMER,QUANTITATIVE - Normal D-DIMER, INNOVANCE <0.19 Narrative: Innovance D-Dimer values of <0.50 mg/L FEU can be used in combination with a pre-test probability model (e.g. Well's) to exclude pulmonary embolism (PE) disease, as well as an aid in the diagnosisof deep vein thrombosis (DVT). MAGNESIUM - Normal MAGNESIUM 2.1 THYROID STIMULATING HORMONE All other labs were within normal range or not returned as of this dictation. EMERGENCY DEPARTMENT COURSE and DIFFERENTIAL DIAGNOSIS/MDM: Vitals: Vitals: 02/28/24 1726 BP: (!) 140/90 Pulse: (!) 120 Resp: 18 Temp: 37.1 C (98.8 F) TempSrc: Temporal SpO2: 100% Diagnoses as of 02/28/24 1843 Tachycardia Chest pain, unspecified type Abnormal EKG The patient presented with chief complaint of chest pain and paresthesias. The differential diagnosis associated with this patient's presentation includes anxiety, electrolyte abnormality, tachycardia, ACS, PE less likely, underlying thyroid issue. Our workup consisted of ordering/reviewing: Cardiac workup including EKG, chest x-ray lab work obtained. Patient is in agreement with this plan. Medications sodium chloride 0.9 % bolus 1,000 mL (1,000 mL IntraVENous New Bag 02/28/241756) aspirin chewable tablet 324 mg (324 mg Oral Given 02/28/241756) REVAL: Even on the patient symptoms were atypical, ordered cardiac workup. EKG shows sinus tachycardia with some questionable ischemic changes which may be rate related. I ordered 4 baby aspirin. I did consult the on-call skin pass operator. He reviewed the EKG. He actually asked that we contact the CCU fellow.I reminded him that the patient is at [place]. I reached out to the CCU at [facility]. A second EKG was obtained. Second EKG appears similar to the first EKG, but the ST-T changes inferiorly are slightly improved from the initial EKG. The patient is not really describing chest pain or chest discomfort. She does has a hot and cold sensation in her chest and still describes paresthesias like before. Preliminary lab work is unremarkable. Troponin is pending. D-dimer negative. IV fluids were given as well. At this point I told the patient that we would need to transfer her to [facility] for more definitive evaluation and treatment. I did speak with the CCU staff who will accept her. She has not a STEMI candidate, but would benefit from definitive evaluation such as an echo. The cause of her symptoms may be related to an underlying cardiac issue. Patient is aware the plan. CRITICAL CARE TIME Total Critical Care time was 30 minutes, excluding separately reportable procedures. There was a high probability of clinically significant/life threatening deterioration in the patient's condition which required my urgent intervention. CONSULTS: None FINAL IMPRESSION 1. Tachycardia 2. Chest pain, unspecified type 3. Abnormal EKG DISPOSITION Admit 02/28/2024 06:40:35 PM PATIENT REFERRED TO: No follow-up provider specified. DISCHARGE MEDICATIONS: New Prescriptions No medications on file (Comment: Please note this report has been produced using speech recognition software and may contain errors related to that system including errors in grammar, punctuation, and spelling, as well as words and phrases that may be inappropriate. If there are any questions or concerns please feel freeto contact the dictating provider for clarification.) Boo Dorantes MD (electronically signed) Emergency Medicine Provider Boo Dorantes MD 02/28/24 1843 [id number]phone encounter Note* Telephone Encounter - Aashish Russell MA - 02/22/2024 9:55 AM EDT The referral placed for February 22, 2024 has been submitted via the [facility] Internal Referral Request form on the [facility] Appointment Portal. Confirmation # [id number] Aashish Russell MA [facility]08-14-2024 Miscellaneous Notes* Telephone Encounter - Aashish Russell MA - 02/22/2024 9:55 AM EDT The referral placed for February 22, 2024 has been submitted via the [facility] Internal Referral Request form on the [facility] Appointment Portal. Confirmation # [id number] Aashish Russell MA [facility] Telephone encounter Note * Telephone Encounter - Alisha Granados LPN - 02/17/2024 3:47 PM EDT Results sent in my chart [facility]08-09-2024 Miscellaneous Notes* Telephone Encounter - Alisha Granados LPN - 02/17/2024 3:47 PM EDT Results sent in my chart * Telephone Encounter - Alisha Granados LPN - 02/17/2024 3:47 PM EDT ----- Message from Boubacar Sky APRN.CNP sent at 02/17/2024 3:33 PM EDT ----- Negative KARMA. Boubacar Sky APRN.CNP February 17, 2024 3:33 PM documented in this [facility] Telephone encounter Note * Telephone Encounter - Alisha Granados LPN - 02/17/2024 3:47 PM EDT ----- Message from Boubacar Sky APRN.CNP sent at 02/17/2024 3:33 PM EDT ----- Negative KARMA. Boubacar Sky APRN.CNP February 17, 2024 3:33 PM [facility]08-09-2024 Telephone encounter Note* Telephone Encounter - Alisha Granados LPN - 02/17/2024 2:28 PM EDT Results sent in my chart [facility]08-09-2024 Telephone encounter Note* Telephone Encounter - Alisha Granados LPN - 02/17/2024 2:28 PM EDT ----- Message from Boubacar Sky APRN.CNP sent at 02/17/2024 1:42 PM EDT ----- Overall labs look good. KARMA for autoimmune disorders is still pending. B12 is on the low end of normal, may benefit from wither sub-q injections once weekly or oral replacement. No serological evidence of immunity to Hepatitis B Virus. You can obtain 3 dose series either in office or at pharmacy. Boubacar Sky APRN.CNP February 17, 2024 1:42 PM [facility]08-09-2024 Miscellaneous Notes* Telephone Encounter - Alisha Granados LPN - 02/17/2024 2:28 PM EDT Results sent in my chart * Telephone Encounter - Alisha Granados LPN - 02/17/2024 2:28 PM EDT ----- Message from Boubacar Sky APRN.CNP sent at 02/17/2024 1:42 PM EDT ----- Overall labs look good. KARMA for autoimmune disorders is still pending. B12 is on the low end of normal, may benefit from wither sub-q injections once weekly or oral replacement. No serological evidence of immunity to Hepatitis B Virus. You can obtain 3 dose series either in office or at pharmacy. Boubacar Sky APRN.JULIAN February 17, 2024 1:42 PM documented in this encounterK[facility]-2024 Instructions* Patient Instructions* Boubacar Sky APRN.HORSE SHOER - 02/16/2024 9:18 AM EDT GET HELP If you have symptoms of clinical depression, you can get help by doing one or more of the followin. Please talk with your doctor. 2. If you are already in treatment, make sure you contact and update your doctor or therapist. 3. Review additional options for care based on patient or provider preference: Central/Multiple Locations: [facility]: [address] [place] [address] - [phone] [place]: [address] [place] - [phone] [facility]: [address] [facility] - [phone] [facility]: [address] [facility] - [phone] [place] [facility] and [facility]: [address] [place] [address] - [phone] (Medicaid only) [facility]: Multiple Locations - [phone] [facility] Department of Psychiatry & Psychology at [phone] (select Option 1) or [phone] (select Option 1) [facility]: Multiple Locations - [phone] (Medicaid only) [facility] - Multiple Locations - [phone] (Medicaid only) [facility] Multiple Locations - [phone] [facility]: Multiple Locations - [phone] [facility]: Multiple Locations - [phone] [place] Locations: [facility]: [address] [place] [address] - [phone] [facility]: [address] [place] - [phone] Kiya Thakkar PhD [facility]: [address] [facility]. [place] - [phone] [facility] - [address] [facility] [address] [place] - [phone] Dinesh Devlin MD: [address], [place] - [phone] [facility] [address] [facility] [address] [address], [place] - [phone] [facility]: [address] [facility], [place] - [phone] [facility], [address] [facility] - [phone] [place] Locations: [facility] Cort[facility]: [address], [place] - [phone] [facility] Thakkar [facility]: [address] [facility] - [phone] [facility]: [address] [facility] - [phone] [facility] [address] [facility] - [phone] [facility], [address] - [phone] [facility] [place], [address] [facility] - [phone] [facility]: [address] [facility] - [phone] [place] Locations: [facility] -[phone] [facility], [facility] L Graciela [place], [facility] - [phone] [facility]: [address] [place] - [phone] [facility]: [address] [facility] - [phone] [facility] - [address] [facility] Yeni Steinberg - [phone] [place] Locations: [facility] - Colton Quezada MD Psychiatry, Sleep Medicine - [address] [place] - [phone] or [phone] Arielle Carr MD - [address] [facility] [phone] [facility] - MOISES Lieberman, DCSW - [address] [phone] [facility] - [address] [phone] [facility] (NO Commercial Insurance accepted) - [address] [phone] [facility] - Jagjit Hill, PCC, [facility] - [address] [phone] Ayaka Hamilton, [facility] - [address] [phone] Fely Vitale, [facility] - [address] [phone] Andre Daigle, PhD - [phone] Norma Shoemaker, [facility] - [address] [phone] Flalon Lyons, [facility], [facility] (No Medicare, [employer], [employer]) - [address] [place] [phone] Uli Pierson, [facility] - [address], [place] - [phone] Nav Nathan, [facility] - [address] [phone] For additional resources and information please call or review the website: [email or web address] If you are feeling suicidal, please call [employer], , or the National Suicide Hotline , Call 911, or go to your nearest emergency room documented in this encounterK[facility]08-08-[facility]24 History of Present illness Narrative* Boubacar Sky APRN.CNP - 02/16/2024 8:36 AM EDT Images from the original note were not included. [facility] [address] [place] [id number] Date of Evaluation: 02/16/2024 Patient Name: Amie Braxton : 1995 Chief Complaint: Patient presents with: New Patient: Establishing care depression, POTS what's to discuss, Allergie testing with food. Nursing Intake: There are no exam notes on file for this visit. Subjective HPI Ms. Braxton is a 28 year old female who presents for: Establish care. Current concerns: - Worsening anxiety and depression. Reports last year started on Cymbalta in the hospital but did not continue once discharged as she did not have a PCP at the time and did not want to have side effects from the medication. Denies any SI/HI at this time. Report medical problems as a contributing factor. - Reports increased symptoms of POTS/Asthma, issues with lightheadedness/presyncopal, on going since diagnosed with Covid a few years ago. Reports increased migraines. Has tried several medications with no relief of her symptoms. Reports SOB worsening and current medications minimally helpful with her symptoms. Reports negative Tilt table test last year. Meclizine no help. - Would like to be refer to allergy as she reports multiple food allergies and has been noticing more symptoms with food, unable to narrow down to which foods make her uncomfortable and symptomatic. Review of Systems Constitutional: Negative for activity change, appetite change, chills and fever. HENT: Negative for ear pain, hearing loss, sinus pressure, sinus pain, sore throat and trouble swallowing. Eyes: Negative for visual disturbance. Respiratory: Positive for cough and chest tightness. Negative for shortness of breath and wheezing. Cardiovascular: Negative for chest pain, palpitations and leg swelling. Gastrointestinal: Positive for abdominal distention and nausea. Negative for abdominal pain, diarrhea and vomiting. Genitourinary: Negative for dysuria and frequency. Musculoskeletal: Negative for arthralgias and myalgias. Skin: Negative for pallor, rash and wound. Allergic/Immunologic: Positive for food allergies. Neurological: Positive for dizziness, light-headedness and headaches. Negative for numbness. Psychiatric/Behavioral: Positive for confusion and dysphoric mood. Negative for behavioral problems, hallucinations and suicidal ideas. The patient is nervous/anxious. PAST MEDICAL HISTORY No date: Asthma No date: Generalized anxiety disorder No date: Seasonal allergies PAST SURGICAL HISTORY No date: TONSILLECTOMY & ADENOIDECTOMY <AGE 14 FAMILY HISTORY Problem Relation Age of Onset No Known Problems Mother No Known Problems Father No Known Problems Sister Skin Cancer Maternal Grandmother Diabetes Paternal Grandmother Social History Tobacco Use Smoking status: Never Smokeless tobacco: Never Vaping Use Vaping Use: Never used Substance Use Topics Alcohol use: Never Drug use: Never Current Outpatient Medications Medication Sig budesonide-formoterol (SYMBICORT) 80-4.5 mcg/actuation inhaler Inhale 2 Puffs as instructed two times a day. albuterol HFA (PROVENTIL HFA, VENTOLIN HFA) 90 mcg/actuation inhaler INHALE 1 TO 2 PUFFS EVERY 4 TO6 HOURS NEEDED FOR WHEEZE FOR UP TO 30 DAYS EPINEPHrine (EPIPEN) 0.3 mg/0.3 mL auto-injector Inject 0.3 mg intramuscularly as needed. FLUoxetine (PROZAC) 10 mg capsule 1 PO once every morning x 2 weeks then increase to two tablets=20mg PO once every morning afterwards No current facility-administered medications for this visit. I have confirmed and edited as necessary the chief complaint, medications, past medical, family andsocial histories obtained by others. Objective BP 116/79 Pulse 79 Resp 16 Ht 5' 0 (1.52m) Wt 106 lb (48.1kg) SpO2 98% LMP 06/24/2023 BMI 20.70 kg/(m^2). Physical Exam Vitals reviewed. Constitutional: General: She is not in acute distress. Appearance: Normal appearance. She is normal weight. HENT: Head: Normocephalic. Eyes: Extraocular Movements: Extraocular movements intact. Conjunctiva/sclera: Conjunctivae normal. Pupils: Pupils are equal, round, and reactive to light. Cardiovascular: Rate and Rhythm: Normal rate and regular rhythm. Pulses: Normal pulses. Heart sounds: Normal heart sounds. No murmur heard. No friction rub. No gallop. Pulmonary: Effort: Pulmonary effort is normal. Breath sounds: Normal breath sounds. No wheezing, rhonchi or rales. Abdominal: General: Bowel sounds are normal. Palpations: Abdomen is soft. Tenderness: There is no right CVA tenderness or left CVA tenderness. Musculoskeletal: General: Normal range of motion. Cervical back: Normal range of motion. Right lower leg: No edema. Left lower leg: No edema. Lymphadenopathy: Cervical: No cervical adenopathy. Skin: General: Skin is warm and dry. Findings: No lesion or rash. Neurological: General: No focal deficit present. Mental Status: She is alert and oriented to person, place, and time. Mental status is at baseline. Psychiatric: Mood and Affect: Mood normal. Behavior: Behavior normal. Data Reviewed: Most recent labs and imaging results. ASSESSMENT/PLAN: 1. Multiple food allergies - ICD9: V15.05, ICD10: Z91.018 (primary diagnosis) - CONSULT TO ALLERGY/IMMUNOLOGY - KARMA BY IFA WITH REFLEX 2. Migraine with aura and without status migrainosus, not intractable - ICD9: 346.00, ICD10: G43.109 - CONSULT TO NEUROLOGY - COMPLETE BLOOD COUNT AND DIFFERENTIAL - COMPREHENSIVE METABOLIC PANEL - THYROID STIMULATING HORMONE - KARMA BY IFA WITH REFLEX - VITAMIN B12 3. Syncope, unspecified syncope type - ICD9: 780.2, ICD10: R55 - CONSULT TO NEUROLOGY 4. Dizziness - ICD9: 780.4, ICD10: R42 - CONSULT TO NEUROLOGY - COMPLETE BLOOD COUNT AND DIFFERENTIAL - COMPREHENSIVE METABOLIC PANEL - THYROID STIMULATING HORMONE - KARMA BY IFA WITH REFLEX - VITAMIN B12 5. Screening for depression - ICD9: V79.0, ICD10: Z13.31 See PHQ-9 6. Brain fog - ICD9: 799.59, ICD10: R41.89 - VITAMIN B12 7. Screening for HIV (human immunodeficiency virus) - ICD9: V73.89, ICD10: Z11.4 - HIV 1/2 COMBO WITH REFLEX TO DIFFERENTIATION 8. Hepatitis B vaccination status unknown - ICD9: V49.89, ICD10: Z78.9 - HEPATITIS B SURFACE ANTIBODY 9. COVID-19 long hauler - ICD9: 139.8, ICD10: U09.9 - CONSULT TO COVID LONG RECOVERY EXERCISE PROGRAM (PPG) 10. Anxiety and depression - ICD9: 300.00, 311, ICD10: F41.9, F32.A - FLUOXETINE 10 MG CAPSULE Boubacar Sky APRN.HORSE SHOER Return in about 6 weeks (around 03/29/2024) for follow up. Discussed the above with the patient using shared decision making. The patient is in agreement with the diagnostic and treatment plans. documented in this encounterKettering Health [facility]07-09-2024 History of Present illness Narrative* Ethel Mcintosh MA - 01/17/2024 12:20 PM EDT Pt identified by first/last name & . Since Tuesday patient has had a COLLINS, dizziness, brain fog. Since Tuesday it has gotten worse. * MARCO Coto CNP - 01/17/2024 12:20 PM EDT Images from the original note were not included. [facility] [address] [place] [phone] Dept: [phone] Dept Loc: [phone] Subjective Amie Braxton is a 28 y.o. year old female who presents to the office with the following complaint(s): Chief Complaint Patient presents with Dizziness HPI 28-year-old female presents due to dizziness x 3 days. Patient denies vision changes. Review of Systems Constitutional: Negative for fever. Eyes: Negative for visual disturbance. Respiratory: Negative for cough and shortness of breath. Cardiovascular: Negative for chest pain. Neurological: Negative for dizziness, light-headedness and headaches. All other systems reviewed and are negative. Allergies Allergen Reactions Valier Oil Other reaction(s): Other (See Comments), Other (See Comments) Asthma exacerbation Asthma exacerbation Beef Allergy Hives Cvs Digestive Probiotic [Lactase-Lactobacillus] Hives Egg-Derived Products Hives Food allergy Lactose Other reaction(s): Unknown Allergy to all dairy Milk-Related Compounds Dairy. Emesis, upset stomach Nitrofurantoin Other reaction(s): Other (See Comments), Other (See Comments), Unknown Migraines, upset stomach Migraines, upset stomach Migraines, upset stomach Migraine and light headed Migraine and light headed Migraines, upset stomach Peanut Allergen Powder-Dnfp Hives Peanut-Containing Drug Products Asthma, emesis Pineapple Hives and Swelling Soy Allergy Other reaction(s): GI Intolerance, GI Intolerance, GI Upset, Unknown Soybean-Containing Drug Products Soy, Migraines and upset stomach Vancomycin Hives Past Medical History: Diagnosis Date Exercise-induced asthma IC (interstitial cystitis) Multiple food allergies Past Surgical History: Procedure Laterality Date TONSILLECTOMY No family history on file. Social History Socioeconomic History Marital status: Single Tobacco Use Smoking status: Never Current Outpatient Medications on File Prior to Visit Medication Sig Dispense Refill albuterol 0.63 MG/3ML nebulizer solution Inhale 1 ampule. albuterol 108 (90 Base) MCG/ACT inhaler Inhale 1 puff every 6 hours as needed. [DISCONTINUED] doxycycline (Vibramycin) 100 MG capsule Take 100 mg by mouth in the morning and 100 mg in the evening. [DISCONTINUED] famotidine (Pepcid) 20 MG tablet Take 1 tablet by mouth in the morning and at bedtime. [DISCONTINUED] hrpodghw-ozbknfbgz-ukxOTQBZibbny (Maxitrol) 0.1 % ophthalmic suspension 1 drop in the morning and 1 drop at noon and 1 drop in the evening and 1 drop before bedtime. [DISCONTINUED] omeprazole (PriLOSEC) [address] capsule Take 20 mg by mouth. [DISCONTINUED] ondansetron ODT (Zofran-ODT) 4 MG disintegrating tablet Take 4 mg by mouth every 8 hours as needed. [DISCONTINUED] pentosan polysulfate (Elmiron) 100 MG capsule Take 100 mg by mouth. [DISCONTINUED] polyethylene glycol, PEG, 3350 (Glycolax) 17 GM/SCOOP powder Take 17 g by mouth in the morning. [DISCONTINUED] Probiotic Product (Align) capsule Take 4 mg by mouth in the morning. [DISCONTINUED] Sulfamethoxazole-Trimethoprim (SULFAMETHOXAZOLE-TMP DS PO) Take by mouth Dosage not listed on bottle, Pt is taking 1 tab BID x 10 days. No current facility-administered medications on file prior to visit. Objective BP 107/61 Pulse 83 Temp 36.6 C (97.9 F) Ht 5' (1.524 m) Wt 105 lb (47.6 kg) SpO2 100% BMI 20.51 kg/m Assessment: Physical Exam Vitals reviewed. HENT: Right Ear: External ear normal. Left Ear: External ear normal. Ears: Comments: Right ear canal mildly erythematic with cyr-colored TM Left ear canal grossly erythematic with bulging TM Nose: Nose normal. Mouth/Throat: Mouth: Mucous membranes are moist. Pharynx: Oropharynx is clear. Cardiovascular: Rate and Rhythm: Normal rate and regular rhythm. Pulses: Normal pulses. Heart sounds: Normal heart sounds. Pulmonary: Effort: Pulmonary effort is normal. Breath sounds: Normal breath sounds. Skin: General: Skin is warm and dry. Capillary Refill: Capillary refill takes less than 2 seconds. Neurological: General: No focal deficit present. Mental Status: She is alert and oriented to person, place, and time. 1. Acute suppurative otitis media of left ear without spontaneous rupture of tympanic membrane, recurrence not specified HPI and assessment findings. Patient notified of current assessment findings. Neurological status is intact. Patient notified that reason for dizziness is due to current bacterial pathology of bilateral ears; left more than right. Patient is agreeable to medication as directed; potential side effects provided. Patient denies chance of current . Patient will complete antibiotic start to finish as advised. Referral to family medicine also placed. Amie was seen today for dizziness. Diagnoses and all orders for this visit: Acute suppurative otitis media of left ear without spontaneous rupture of tympanic membrane, recurrence not specified (Primary) Medication indications, directions, and side effects were discussed. Patient given educational materials - see patient instructions. Discussed use, benefit, and side effects of prescribed medications. All patient questions answered. Pt voiced understanding and aware of treatment plan. Follow up as directed. (Please note that portions of this note may have been completed with a voice recognition program. Efforts were made to edit the dictations but occasionally words aremis-transcribed.) SCOOBY Coto 01/17/24 documented in this [facility]05-19-[facility]24 Procedure note* Beau Thurman MD - 11/27/2023 3:00 PM EDT CYSTOSCOPY PROCEDURE NOTE: Patient last seen by me on 10/07/2023. Other providers:Sanjana Chamberlain MD [facility] Most recent visit 08/11/2023. Amie Braxton is a 28 year old female who presents with urethritis, vulvodynia/vestibulitis, myofascial pain and possible IC/BPS. Cystoscopy planned for additional evaluation of the bladder lining. The procedure, risk expected outcomes have been explained. The patient expressed understanding. She agrees. Interval history Burning and urethral pain has resolved for the most part. Gets symptoms occasionally, sporadic. Feels constant pressure to urinate without specific triggers. If she will do urine more than 2 hours feels a lot of discomfort in the lower abdominal area. Pt ID verified with patient: Yes Procedure verified with patient: Yes Procedure confirmed with physician and customer support specialist: Yes UNIVERSAL PROTOCOL / SAFETY CHECKLIST Procedure to be Performed: Flexible cystoscopy Sign In: A Moment of CARE was completed. Personnel directly involved with the procedure wore the appropriate PPE (Personal Protective Equipment). Patient/Surrogate Stated/Verified: PATIENT VERIFIED(optional for EMERGENT procedures): Patient name, Date of , Relevant allergies, and The intended procedure Time Out Communication: Intended patient and procedure match the source documents. Consent documented and matches the intended procedure. Sign Out: SIGN OUT (optional for EMERGENT procedures): No specimen collected. Beau Thurman MD A urinalysis was performed revealing no evidence of infection. The benefits, risks, alternatives of the cystoscopy procedure and personnel were discussed with thepatient. The verbal consent was obtained and the patient agrees to proceed. Procedure: The patient was placed on the procedure table in the supine position and prepped and draped in the usual sterile fashion. 2% Lidocaine Jelly was placed per urethra as an anesthetic in the standard fashion. Once adequate local anesthesia was achieved, the tip of the Flexible cystoscope was carefully placed into the urethra under direct visual guidance. The scope was negotiated per urethra into the bladder. There is no evidence of urethral diverticulum, stricture, kinking or angulation. Careful cooley endoscopy was carried out. The posterior, superior and lateral parada and dome of the bladder were all well visualized and the scope was retroflexed upon itself. The findings were consistent with no evidence of bladder mucosal pathology. No stones, foreign bodies, or lesions. Bladder trabeculation none. No diverticulum or cellules. Mild discomfort with bladder filling. Bladder distention did not result in bleeding or Clement relation. Ureteral orifices normal in position, number and configuration. At the conclusion of the procedure, the Flexible cystoscope was removed atraumatically. The patienttolerated the procedure without complications. Patient was given standard post-procedure instructions, and was directed to complete the course of oral antibiotics and increase oral fluid intake as directed. Manager Clinical Services offered:Patient accepts, visit chaperoned by Fallon Sam MA ASSESSMENT/PLAN: 1. Nonulcerative interstitial cystitis/bladder pain syndrome 2. Urethritis 3. Daytime frequency and nocturia 4. Urinary urgency. Continue management as outlined at her previous visit including pelvic floor physical therapy, avoidance of dietary triggers, OTC Zyrtec. Fortunately urethral pain and burning improved. Plan trial of Myrbetriq but 6-week follow-up. The medication, risks and side effects explained. Rx sent to pharmacy. For future consideration: Elavil, OAB medications, bladder installations or hydrodistention. [facility] Procedure note* Beau Thurman MD - 11/27/2023 3:00 PM EDT CYSTOSCOPY PROCEDURE NOTE: Patient last seen by me on 10/07/2023. Other providers:Sanjana Chamberlain MD [facility] Most recent visit 08/11/2023. Amie Braxton is a 28 year old female who presents with urethritis, vulvodynia/vestibulitis, myofascial pain and possible IC/BPS. Cystoscopy planned for additional evaluation of the bladder lining. The procedure, risk expected outcomes have been explained. The patient expressed understanding. She agrees. Interval history Burning and urethral pain has resolved for the most part. Gets symptoms occasionally, sporadic. Feels constant pressure to urinate without specific triggers. If she will do urine more than 2 hours feels a lot of discomfort in the lower abdominal area. Pt ID verified with patient: Yes Procedure verified with patient: Yes Procedure confirmed with physician and customer support specialist: Yes UNIVERSAL PROTOCOL / SAFETY CHECKLIST Procedure to be Performed: Flexible cystoscopy Sign In: A Moment of CARE was completed. Personnel directly involved with the procedure wore the appropriate PPE (Personal Protective Equipment). Patient/Surrogate Stated/Verified: PATIENT VERIFIED(optional for EMERGENT procedures): Patient name, Date of , Relevant allergies, and The intended procedure Time Out Communication: Intended patient and procedure match the source documents. Consent documented and matches the intended procedure. Sign Out: SIGN OUT (optional for EMERGENT procedures): No specimen collected. Beau Thurman MD A urinalysis was performed revealing no evidence of infection. The benefits, risks, alternatives of the cystoscopy procedure and personnel were discussed with thepatient. The verbal consent was obtained and the patient agrees to proceed. Procedure: The patient was placed on the procedure table in the supine position and prepped and draped in the usual sterile fashion. 2% Lidocaine Jelly was placed per urethra as an anesthetic in the standard fashion. Once adequate local anesthesia was achieved, the tip of the Flexible cystoscope was carefully placed into the urethra under direct visual guidance. The scope was negotiated per urethra into the bladder. There is no evidence of urethral diverticulum, stricture, kinking or angulation. Careful cooley endoscopy was carried out. The posterior, superior and lateral parada and dome of the bladder were all well visualized and the scope was retroflexed upon itself. The findings were consistent with no evidence of bladder mucosal pathology. No stones, foreign bodies, or lesions. Bladder trabeculation none. No diverticulum or cellules. Mild discomfort with bladder filling. Bladder distention did not result in bleeding or Clement relation. Ureteral orifices normal in position, number and configuration. At the conclusion of the procedure, the Flexible cystoscope was removed atraumatically. The patienttolerated the procedure without complications. Patient was given standard post-procedure instructions, and was directed to complete the course of oral antibiotics and increase oral fluid intake as directed. Manager Clinical Services offered:Patient accepts, visit chaperoned by Fallon Sam MA ASSESSMENT/PLAN: 1. Nonulcerative interstitial cystitis/bladder pain syndrome 2. Urethritis 3. Daytime frequency and nocturia 4. Urinary urgency. Continue management as outlined at her previous visit including pelvic floor physical therapy, avoidance of dietary triggers, OTC Zyrtec. Fortunately urethral pain and burning improved. Plan trial of Myrbetriq but 6-week follow-up. The medication, risks and side effects explained. Rx sent to pharmacy. For future consideration: Elavil, OAB medications, bladder installations or hydrodistention. documented in this encounterK[facility]04-30-2024 Instructions* Patient Instructions* Beau Thurman MD - 11/08/2023 10:30 AM EDT CYSTOSCOPY HOMEGOING INSTRUCTIONS You have undergone a cystoscopy procedure where a telescope was inserted into your bladder through your urethra. What to expect: You may have a burning sensation during urination and/or blood-tinged urine. These symptoms will normally subside within 24 hours and with increased fluid intake. When to call the physician s office: If you have a fever of 100.4 degrees Fahrenheit or higher If you are unable to urinate If your urine becomes bloody and does not clear with increased fluid intake. If after 24 hours, you have signs of a urinary tract infection. documented in this encounterKettering [facility]04-08-2024 Miscellaneous Notes* Telephone Encounter - Salvador Soto MA - 10/17/2023 8:21 AM EDT Called patient, Voice mail box was full and unable to leave message. Salvador Soto MA Patient did review results on [employer] closing call. Last viewed in [employer]: 10/11/2023 11:31 PM By: Amie Braxton * Telephone Encounter - Beau Thurman MD - 10/15/2023 10:08 AM EDT Vaginal and urethral cultures negative for bacterial vaginosis and mycoplasma/Ureaplasma respectively. Please notify patient. documented in this encounterKettering Health [facility]03-29-2024 Instructions* Patient Instructions* Beau Thurman MD - 10/07/2023 9:55 AM EDT Bladder Irritants Certain foods and beverages are very irritating to the bladder and are known as bladder irritants. Below is a list of bladder irritants to AVOID completely or consume in MODERATION. 1.Caffeine - Coffee (including decaf) - Tea (including green tea) - Pop/Soda (including caffeine free) -Chocolate 2. Acid - Citris fruits and juices (cranberry, orange, grapefruit) - Tomatoes (including tomatoe juice, tomato sauce, salsa) -Carbonated drinks (including carbonated water) 3. Concentrated urine (that is yellow, dark yellow or orange in color) from not drinking enough water. 4. Alcohol 5. Highly spiced foods (pepper, hot sauce,etc). 6. Sugar and/or artificial sweeteners. CYSTOSCOPY INSTRUCTIONS What is a cystoscopy? This is a procedure that allows the doctor to look inside your bladder with a telescope. Getting ready for the test: You may eat and drink normally before the test, if you are having a urodynamics test at the same time as the cystoscopy, please follow the instructions for fluid intake for the urodynamics test. If you have any symptoms of bladder infection before the test, please call and let your doctor know. Symptoms of bladder infection include: burning with urination, increased frequency of urination. During the test: The nurse will ask you for a urine sample to test for infection, if you have a bladder infection, the test may not be safe to perform. You will be asked to undress from the waist down. You will be asked to lie down and the nurse will place a numbing gel on your urethra. The doctor will gently insert the telescope into your bladder and fill your bladder with fluid. The test takes approximately 10 minutes or less. Risks of the procedure: Risks are few, they include: bladder infection, injury to the bladder or urethra. The doctor will discuss these risks with you and obtain a consent prior to the procedure. documented in this encounterK[facility]03-29-[facility]24 History of Present illness Narrative* Beau Thurman MD - 10/07/2023 9:53 AM EDT [facility] NEW PATIENT CONSULT/HISTORY AND PHYSICAL PATIENT: Amie Braxton (28 year old) REFERRING PROVIDER: PCP: Daniel Guerrero, Consultation requested by Sanjana Chamberlain MD for an opinion regarding Amie Braxton. My final recommendations will be communicated back to the requesting physician by way of shared Medical record or letter to requesting physician. ASSESSMENT/PLAN: 1. Urethritis 2. Interstitial cystitis/bladder pain syndrome 3. Vulvodynia/vestibulitis 4. High tone pelvic floor dysfunction PLAN: - Continue pelvic floor physical therapy. - Try OTC Zyrtec. - Discussed irritants which might trigger IC/urethritis. List provided. - Vaginal cultures for BV. Previous cultures for mycoplasma/Ureaplasma negative. - Proceed with cystourethroscopy to determine if ulcerative IC is seen. Discussed that cystoscopy may be negative even though IC is present. - Complete bladder diary. For future consideration: Elavil, OAB medications, bladder installations or hydrodistention. CHIEF COMPLAINT: Frequency and bladder pain HISTORY OF PRESENT ILLNESS: Patient is a 28-year-old -0-0-0 who presents at the request of chronic pelvic pain clinic evaluation for possible IC. Other providers: Sanjana Chamberlain MD [facility]/Center for chronic pelvic pain Most recent visit 08/11/2023. Patient was most recently seen in the chronic pelvic pain clinic on 08/11/2023. She was diagnosed with PCOS and pelvic floor dysfunction. [facility] and has an appointment with PT in 1 week. Reviewed previous notes from visits in 2022 and most recent from 2023. In the past patient was started on Cymbalta 30 mg in a.m. (no longer taking) and given Xanax for asneeded use. Urinary tract concerns: In 2016, when she was 17, she was seen by Doreen Smith (sp?) and had a potassium test for IC.The test was very painful, but according to the patient was diagnostic. She was treated with Pyridium and Elmiron for 1 year without benefit. She tried to adhere to an IC diet but she has a lot of food allergies so was overwhelmed. She has never tried Elavil, had bladder installations or hydrodistention. Her main complaint is UTI symptoms with negative cultures. Symptoms include frequency, constant sensation to urinate, dysuria, urethral algia, suprapubic achy and pain with urethral palpation. The main reason she voids frequently is for pain and a constant sensation that she needs to urinate. Is not urgent and she does not have urge incontinence. In the past, lower urinary tract symptoms have been episodic, but within the last 4 months have been more consistent and occur most days. Today she is not having any burning with urination or urethritis symptoms. Identified triggers include soda pop and sexual activity, including vaginal intercourse. If her partner does not use condoms, symptoms are worse. She has a history of bacterial vaginosis, more than 10 episodes. She denies vaginal odor, discharge, bleeding. Vaginal cultures for mycoplasma and Ureaplasma negative. Today's residual urine assessment by ultrasound is 7 mL. Today's urinalysis shows trace, intact blood. Negative nitrite. Trace leukocyte. I personally reviewed the past medical records received from the referring provider. See HPI I personally reviewed the prior radiology images, and my findings were discussed with the patient. See below I personally reviewed the prior labs, and my findings were discussed with the patient. - Vaginal cultures: 03/03/2023, Gardnerella vaginalis: Detected; 07/14/2022, Loulou/trichomonas: All negative; 10/17/2022, GC/committee a: All negative. Cultures - last 3 years Culture 07/14/2022 Mixed microbiota, including predominantly: 10,000 -<50,000 CFU/ml Streptococcus agalactiae (group b streptococcus) ! 10/17/2022 No growth 5 days No growth 5 days 50,000-<100,000 CFU/ml Normal urogenital rd Imaging Transvaginal ultrasound (07/22/2022): Right ovary appears slightly enlarged. No focal mass. Several small follicles of both ovaries which are nonspecific. Performed at outside hospital. Hospital for right upper quadrant pain. findings: Within kidneys no obstructing stones or suspicious renal masses. No filling defects within collecting system. No hydronephrosis. Moderate stool burden. 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 History of abnormal pap smears: no History of PCOS LMP: ~ 04/10/2023 Menstrual history: Menarche 18yo Sexual function Sexually active: Yes, no issues Endorses worsening lower urinary tract symptoms with sexual activity, especially partner does not use a condom. REVIEW OF SYSTEMS: Genitourinary: SEE HPI Constitutional: unintentional weight loss - denies, fevers - denies Cardiovascular: new or worsening chest pain - denies Respiratory: new or worsening shortness of breath - denies Gastrointestinal: constipation - denies, vomiting - denies Hematologic/Lymphatic: easy bleeding or bruising - denies ALLERGIES: ALLERGIES Allergen Reactions Beef Containing Pro* Intolerance migraines Migraines, upset stomach Beef Derived (Bovin* Hives Beta-Blockers (Beta* Contraindication-Medical Surgical Patient carries Epipen for pineapple allergy. Egg Derived GI Upset Vomiting even with ingredient of egg Milk Containing Pro* Intolerance, Hives Vomiting. Pineapple Hives, Swelling Hives, difficulty breathing Soy GI Upset vomiting Tree Nuts Other: See Comments Asthma flaring, difficulty breathing Vancomycin Analogues Hives MEDICATIONS: norethindrone-e.estradiol-iron (LO LOESTRIN FE) 1 mg-10 mcg (24)/10 mcg (2) Take 1 tablet by mouth once daily. albuterol HFA (PROVENTIL HFA, VENTOLIN HFA) 90 mcg/actuation inhaler INHALE 1 TO 2 PUFFS EVERY 4 TO6 HOURS NEEDED FOR WHEEZE FOR UP TO 30 DAYS EPINEPHrine (EPIPEN) 0.3 mg/0.3 mL auto-injector Inject 0.3 mg intramuscularly as needed. amoxicillin (AMOXIL) 250 mg capsule Take by mouth three times a day. (Patient not taking: Reported on 08/25/2023) PAST HISTORY: PAST MEDICAL HISTORY Diagnosis Date Asthma Generalized anxiety disorder Seasonal allergies PAST SURGICAL HISTORY Procedure Laterality Date TONSILLECTOMY & ADENOIDECTOMY <AGE 14 FAMILY HISTORY Problem Relation Age of Onset No Known Problems Mother No Known Problems Father No Known Problems Sister Skin Cancer Maternal Grandmother Diabetes Paternal Grandmother Social History Tobacco Use Smoking status: Never Smokeless tobacco: Never Vaping Use Vaping Use: Never used Substance Use Topics Alcohol use: Never Drug use: Never PHYSICAL EXAMINATION: LMP 06/24/2023 (Approximate) Constitutional: In no acute distress. Well appearing. Respiratory: Normal respiratory effort without use of accessory muscles.No Dyspnea Musculoskeletal: Ambulates without assistance cardiovascular: Regular rate. Capillary refill less than 3 seconds Gastrointestinal: Nondistended. No ventral hernias Genitourinary: External genitalia without rash or lesion. Vestibule Q-tip palpation elicits tenderness everywhere except 1-3:00. Very tender 5:00 and 12:00. No rash or lesion. Urethral meatus tender to palpation. No stenosis, bleeding, or Haines's gland abnormality. Urethra tender along its length. No scar or diverticulum. Bimanual exam elicits tenderness posterior bladder wall. Urethra mobile No leakage with cough in supine position. Backfilled FST not performed Vaginal mucosa has good estrogen effect. Green discharge. BV culture sent. No lesion Cervix not visualized. Uterus nontender nonenlarged. No masses or bimanual. Pubococcygeus: Increased tone and tenderness bilaterally Iliococcygeus: Increased tone and tenderness bilaterally Speculum exam reveals no prolapses. Pelvic support normal. VEL not performed DATA: Clinic: URINALYSIS: GLUCOSE UA (POCT) Negative 10/07/2023 BILIRUBIN UA (POCT) Negative 10/07/2023 KETONE UA (POCT) Negative 10/07/2023 SPECIFIC GRAVITY UA (POCT) 1.020 10/07/2023 HEMOGLOBIN/BLOOD UA (POCT) Trace-intact 10/07/2023 PH UA (POCT) 6.5 10/07/2023 PROTEIN UA (POCT) Negative 10/07/2023 UROBILINOGEN UA (POCT) 0.2 10/07/2023 NITRITE UA (POCT) Negative 10/07/2023 LEUKOCYTES UA (POCT) Trace 10/07/2023 COLOR UA (POCT) Yellow 10/07/2023 CLARITY UA (POCT) Clear 10/07/2023 Laboratory: Creatinine Date Value Ref Range Status 10/18/2022 0.64 0.58 - 0.96 mg/dL Final 10/17/2022 0.64 0.58 - 0.96 mg/dL Final 10/17/2022 0.92 0.58 - 0.96 mg/dL Final 10/16/2022 1.21 (H) 0.58 - 0.96 mg/dL Final Cultures: Culture Results - Past 1 Year Culture 10/17/2022 No growth 5 days 10/17/2022 No growth 5 days 10/17/2022 50,000-<100,000 CFU/ml Normal urogenital rd Susceptibility Tests - Past 1 Year Collected Organism 10/17/[address] I have reviewed the problem list, family history, and social history documented by my ancillary staff. Manager Clinical Services offered:Patient accepts, visit chaperoned by Fallon Sam MA. Beau Thurman MD Staff Urologist documented in this encounterKettering Health [facility]02-20-2024 Miscellaneous Notes* Telephone Encounter - Yesy Torrez MD - 08/30/2023 9:56 PM EST Telephone Encounter Amie Braxton [id number] Provider: Dr. Sanjana Chamberlain Patient identity verified by name and . Called patient today regarding spotting with wiping. 28 yo with history of PCOS and remote history of interstitial cystitis who hasn't had a period in over a year who is calling after having two days of light bleeding with wiping. She denies any spotting between, denies period-like flow. States she has not had her period in over a year. Denies any lightheadedness, dizziness, SOB, CP, N/V. Denies any dysuria, frequency or urgency. She follows with Dr. Chamberlain who has recommended to start Lo-Loestrin. She states that she has not picked this up yet, but plans to do so soon. Of note, patient was recently seen in the office in which vaginitis swabs were collected and negative. Patient also has a urology apt 10/06. Counseled environmental field technician-back precautions including persistent or worsening of symptoms. Encouraged her tostart her OCPs. Patient expressed understanding of and agreement with plan of care. All questions and concerns answered adequately. Discussed with Dr. Carla Baeza, PGY4. Message will be routed to Dr. Chamberlain's office. Yesy Torrez MD 08/30/23 9:56 PM documented in this encounterKettering Health [facility]02-20-2024 Miscellaneous Notes* Telephone Encounter - Sailaja Nice LPN - 08/30/2023 8:21 PM EST Patient calling regarding blood when wiping. Conferenced to Main [place] core winding operator, Naseem, to speak with provider environmental field technician for Jaylin Chamberlain. Sailaja Nice LPN documented in this encounterKettering Health [facility]ble02-15-2024 Instructions* Patient Instructions* Wenceslao Gaitan APRN.[facility] - 08/25/2023 8:11 AM EST Vaginitis Vaginitis is an infection or inflammation of the vagina which can cause symptoms including abnormalvaginal discharge, irritation, itching, and pain, including with intercourse. The outside of the vagina (vulva) may be swollen and tender. Sometimes there are minimal or no symptoms. Abdominal pain, fevers or chills, vomiting, etc. are NOT usually due to vaginitis. Vaginitis can be caused by many things. Several different types of organisms including: A fungus called Loulou albicans (yeast or monilia) which can produce a thick, cheesy discharge. A protozoa (one-celled organism) called trichomonas which can cause a foamy, bad-smelling thin discharge. An overgrowth of normal vaginal bacteria (gardnerella) which may cause a fishy- smelling discharge. Other organisms such as chlamydia, herpes, etc. (Some but not all of these organisms may be sexually spread.) -Irritants and chemical such as creams, foams, douches, female deodorants, condoms and diaphragms, tampons. -Nonabsorbent, heat retaining clothing such as nylon pantyhose and tight fitting garments. -Vaginal dryness which is common after menopause or while on certain medications -Poor hygiene, stress, or physical injury. -Sometimes a cause is not found. Diagnosis may be made by cultures or smears taken from the vagina, urine tests, and sometimes bloodtests. Treatment may be with oral (pills taken by mouth) or vaginal medications (medicines put directly into the vaginal). Topical creams may help if the symptoms are due to irritants or lack of estrogen. Stopping the irritants is very important. To help the symptoms: Bathe with a non-irritating, unscented soap using warm but not hot water and rinsing thoroughly, Pat dry without rubbing. Wear loose-fitting, all-cotton or cotton crotch underwear. Avoid deodorant sprays, scented pads or tampons. Use condoms with your sexual partner when there is any risk of infection. Keep your genital area dry. Use your medications as directed. documented in this encounterKettering Health [facility]02-15-2024 History of Present illness Narrative* Wenceslao Gaitan APRN.CNM - 08/25/2023 7:46 AM EST Amie is a 28 year old who presents for a repeat PAP for unsatisfactory. Has symptoms of vaginitis. Tested negative for BV two weeks ago. OB History T0 L0 SAB0 IAB0 Ectopic0 Multiple0 Live Births0 Header Operator History LMP: 06/24/2023 (Approximate), Having periods Age at Menarche: 18 Age at First : Age at Menopause: Header Operator History Comments: Sexual Activity: Yes; No partner data on record Contraception: No contraception data on record PAST MEDICAL HISTORY Diagnosis Date Asthma Generalized anxiety disorder Seasonal allergies PAST SURGICAL HISTORY Procedure Laterality Date TONSILLECTOMY & ADENOIDECTOMY <AGE 14 FAMILY HISTORY Problem Relation Age of Onset No Known Problems Mother No Known Problems Father No Known Problems Sister Skin Cancer Maternal Grandmother Diabetes Paternal Grandmother SOCIAL HISTORY Social History Tobacco Use Smoking status: Never Smokeless tobacco: Never Vaping Use Vaping Use: Never used Substance Use Topics Alcohol use: Never Drug use: Never REVIEW OF SYSTEMS Abdomen: No abdominal pain, nausea, vomiting, diarrhea, or constipation. No bloating, early satiety, indigestion, or increased flatulence. Bladder: No dysuria, gross hematuria. Has urinary frequency and discomfort that she reports as her baseline d/t interstitial cystitis. Allergies and current medication updated:Yes EXAM: BP 104/68 Pulse 85 Ht 5' 0 (1.52m) Wt 105 lb 9.6 oz (47.9kg) LMP 06/24/2023 BMI 20.62 kg/(m^2). GENERAL: pleasant, female in no apparent distress HEENT: Normocephalic NECK: full range of motion DERMATOLOGY: Normal and without lesions BREAST: deferred CHEST: Normal inspiratory effort ABDOMEN: Deferred PELVIC: external genitalia normal, normal Bartholin's glands, urethra, Haines's glands, no vulvar lesions, no cervical lesions, good vaginal support, normal appearing perineal body and perianal region, abnormal discharge thin sepulveda watery. BIMANUAL: deferred RECTOVAGINAL: deferred. NEURO: alert and oriented x3 EXTREMITIES: normal ASSESSMENT/PLAN: 1) Health maintenance: Pap done with reflex HPV. 2) Vaginitis cultures repeated Follow up one year or sooner as needed Wenceslao Gaitan APRN.CNM documented in this encounterKettering Health [facility]02-01-2024 Instructions* Patient Instructions* Sanjana Chamberlain MD - 08/11/2023 9:20 AM EST See pelvic floor PHYSICAL THERAPY [phone] (ryne lucia) Ultrasound -get at [facility] Get labs Always get urine culture if you feel you might have UTI Cultures done today Start control pill lo-loestrin, Consider provera 10mg x 10 days if you dont tolerate loestrin 8 pap done today PATIENT INFORMATION ON PELVIC FLOOR DYSFUNCTION: Myofascial pain( also known as Pelvic floor dysfunction, high tone pelvic floor,pelvic floor tightness) : Based on the patient s physical exam and history, it is evident that there is a significant component of myofascial pain that is contributing to her symptoms. Myofascial pain is pain that arises from dysfunction, spasticity, and/or hypersensitivity of the muscle, fascia or joints in the abdominalwall, pelvic floor, and/or low back. This is an extremely common, but under-recognized source of pain in women with chronic pelvic pain. We discussed that the most effective treatment modality is usually physical therapy, and that it is extremely important that the patient be seen and evaluated by a physical therapist with specialty training in female pelvic pain. We have ordered a consult to a pelvic floor physical therapist. We counseled her that her pelvic pain may initially worsen during and after the first several visits, and that it may take time and repetitive visits before she noticesan improvement. Unfortunately, there are few alternative treatments for this type of pain, and repetitive surgery can often make myofascial pain worse. Therefore, we strongly encouraged her to complete an entire course of physical therapy. If this treatment is not helpful, we are happy to discuss adjuvant therapies such as trigger point injections or muscle relaxers. SUGGESTED BEGINNER YOGA POSES: HAPPY BABY AND BRIDGE POSE Do reverse kegels , avoid kegel exercises until seen by physical therapist. Instagram: Dibsie Thepelvicdancefsharonor Maggi Chase, pelvic floor PHYSICAL THERAPY Resources: Marquita Fairbanks P.T. [facility]al Pelvic Pain (website and book and has DVDs that can be ordered) Www.pelvicpain.org (International pelvic pain society) FOR learning to cope with pain (the modules are free, lasting 1 min each) :www.retrainpain.org TIRED OF WAITING FOR PAIN TO GO AWAY? Learn a science based approach to overcome chronic pain. Contact information: My chart messages will go to the RN or canned food reconditioning inspector first to be addressed. If questions are urgent, please call [phone] and press nurse prompt. For urgent Questions: call my office secretary with questions, appts related to chronic pelvic pain, Tim ,fax [phone] For refills, I prefer these be sent through [employer] We also have a nurse coordinatorMarga Cruz RN My schedule: I see patients in office Tuesday/Tuesday/ and Fridays: virtual visits only Vulvodynia: We discussed is chronic vulvar pain without an identifiable cause. The location, constancy and severity of the pain vary among sufferers. Some women experience pain in only one area of the vulva, while others experience pain in multiple areas. Vulvodynia is not caused by an active infection or a sexually transmitted disease. Through continued research efforts, we move closer to discovering the underlying cause(s) of vulvodynia. Research suggests that one or more of the following maycause, or contribute to, vulvodynia: (1) An injury to, or irritation of, the nerves that transmit pain from the vulva to the spinal cord; (2) An increase in the number and sensitivity of pain-sensingnerve fibers in the vulva; (3) Elevated levels of inflammatory substances in the vulva; (4) An abnormal response of different types of vulvar cells to environmental factors such as infection or trauma (5) Genetic susceptibility to chronic vestibular inflammation, chronic widespread pain and/or inability to combat infection; (6) Pelvic floor muscle weakness, spasm or instability. Scientific literature also confirms that this condition shares features of central pain amplification, like many other chronic pain conditions like vulvodynia. Typical treatments for vestibulodynia were reviewed with the patient, and include topical therapies, oral medications, and occasionally surgery if all other therapies fail. Topical therapies and physical therapy are generally considered first line treatments, since side-effects are minimal. 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 And inner discomfort. Sexually active w/ condoms : no pain w intercourse Had bladder test age 17 and diagnosed IC and elmiron x 2 month , mom stopped it; Ur culrrue 08/01/23 Macrobid sensitivity, beef casing causes issues See note * Sanjana Chamberlain MD - 08/11/2023 8:00 AM EST Images from the original note were not included. [facility] SECTION FOR CHRONIC PELVIC PAIN OUTPATIENT VISIT DATE 08/11/2023 OUTPATIENT VISIT TYPE FOLLOW UP CHIEF COMPLAINT Amie Braxton is a 27 year old female who presents for vaginitis concerns. HISTORY OF PRESENT ILLNESS Amie is a 27 year old female who is in today for vaginitis concerns and accompanied by herself. Since last visit: Pt states she started the Marcos and it made her ill. She would throw up and feel super nauseous whiletaking it. Pt states she tried multiple times. Pt has not been on any control since. Pt wouldlike to discuss other bc options. Pt had spotting for a week in January but after that pt states she's had no periods since. Pt uses condoms currently, she's sexually active. Reports no pain with intercourse. Pt has been with same partner for 5 years. [facility] work. Pt c/o of recurrent BV and UTI. Pt endorses having around 10 cases of BV. This current UTI she has had since May. Pt states symptoms of bladder infection include burning, frequency, discomfort, BV symptoms include yellow/green discharge and inner discomfort. Pt has gotten several negative cultures but has taken several rouonds of antibiotics. Pt says if she holds in urine for more than 20 minutes then it hurts after she urinates. Pt notices if she eats a lot of sugary foods her symptoms will get worse. Has tried to cut out sugary foods. Pt is allergic to beef, has experienced bad side effects to certain medications due to beef encasing of pills. Pt has a Macrobid sensitivity. Pt had bladder test at age 17 and was diagnosed with IC and elmiron x 2 month , mom decided to stopmedications. Pt does EMDR therapy and counseling, feels it has improved dealing with trauma. Intensity of pain: moderate Average Pain level: 4 on a scale of 0-10 Emergency room visits for pain since last visit: no Level of physical activity and mobility: active Quality of sleep: fair Mood: fair Side effects of medications for pain: Marcos made pt sick. Pain Scales FSFI: 24 PDI: 0 GAD7: 8 PHQ9: 13 10-14 (Moderate depression) PUF: 25 SUMMARY FROM LAST VISIT Date: 09/10/22 ASSESSMENT Encounter Diagnosis ICD-10-CM 1. 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 Anxiety F41.9 DULoxetine (CYMBALTA) 30 mg capsule ALPRAZolam (XANAX) 0.25 mg tablet 3. Urinary frequency R35.0 MYCOPLASMA CULT 4. PCOS (polycystic ovarian syndrome) E28.2 5. 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 Once you bleed, after that you can start marcos, you can start on a Tuesday Take daily 3. I will contact you if the myscoplasma culture is postiive or negative. 4. Use xanax sparingly as needed for anxiety attacks. Avoid with alcohol 5. For anxiety and pain start cymbalta 30mg in am with or without food Follow up in 3 month TREATMENT HISTORY No specialty comments available. PHYSICAL EXAM BP 110/58 Ht 152.4 cm (5') Wt 48.3 kg (106 lb 7.7 oz) LMP 01/11/2023 (Approximate) BMI 20.80 kg/m Physical Exam General: The patient is a well-appearing female in no acute distress. Examination Abdominal tenderness: Positive Carnett's Bilateral lower quadrant pain Vaginal Vestibular tenderness: diffuse vestibule Speculum: Discharge noted Pelvic Floor Musculature RIGHT SIDED Pubococcygeus: 2-3 Iliococcygeus: 2-3 Coccygeus: 2-3 Obturator: 2-3 LEFT SIDED Pubococcygeus: 2-3 Iliococcygeus: 2-3 Coccygeus: 2-3 Obturator: 2-3 (Pain Scale 1 to 3, 3= extreme) RV exam - deferred LABS/IMAGIN03/03/23: POCT urinalysis dipstick pH, UA: 8.5 03/03/23: VAGINITIS PANEL Gardnerella vaginalis: detected 10/18/22: CBC All normal. 10/17/22: GC/CHLAMYDIA All neg. 10/17/22: URINE CULTURE 50,000<100,000 CFU/ml normal urogenital rd 10/16/22: URINALYSIS WITH MICROSCOPIC REFLEX CULTURE Color: light yellow Glucose, Urine: trace Ketones, Urine: trace 10/16/22: TSH BLD 0.550 07/14/22: LH 20.6 07/14/22: TESTOSTERONE FREE AND TOTAL Free S: 2.03 Total S: 84 07/14/22: DHEA-S BLD DHEA-S: 592.1 07/14/22: FSH BLD 6.5 07/14/22: LOULOU/TRICHOMONAS All neg. IMAGIN07/22/22: US FEMALE PELVIS TRANSVAG IMPRESSION: 1. Right ovary appears slightly enlarged. No focal mass. There are several small follicles of both ovaries which are nonspecific. The overall pattern and multiplicity is not characteristic for PCOS. ASSESSMENT/PLAN Encounter Diagnosis ICD-10-CM 1. 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 Urinary frequency R35.0 BACTERIAL VAGINOSIS NAAT 3. PCOS (polycystic ovarian syndrome) E28.2 4. Screening for cervical cancer Z12.4 PAP TEST 5. 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 Pt suspects she's had 10 cases of BV and other UTIs over the past year and is concerned about recurrent symptoms of burning and urgency with urination. She's also experienced green/yellow discharge and internal pelvic pain. Pt did not have a good experience with Marcos due to nausea when taking it, would like to discuss other options. Discussed trying boric acidfor BV. Discussed seeing Urologist to rule out interstitial cystitis. Did PAP today. Discussed starting PFPT. Discussed trying progesterone next if Lo-Loestrin doesn't work. Will reach out when labs come back Start PFPT Start low acid diet, avoid sugary foods Ask clinic for culture anytime pt experiences UTI-like symptoms Try boric acid when BV symptoms comes back Try Lo-estrin Fe control Ultrasound ordered today Follow up in 3 months virtually Patient verbalized understanding of the plan of care and all questions were answered to her stated satisfaction. Written and verbal health teaching given to patient, patient verbalizes understanding and agrees with treatment plan. Medical Decision Making: Problems: Moderate: 1+ chronic illnesses with change Data: Unique test result(s) reviewed: 1 Unique test(s) ordered: 3+ Risk: Moderate: Moderate risk from testing/treatment and Drug management Medical Decision Making Level: 4 - Moderate I personally interviewed, confirmed and edited the above information if obtained by others. Sanjana Chamberlain MD ATTESTATION: By signing my name below, I, Leah Rudolph, attest that this documentation has been prepared under the direction and in the presence of Dr. Chamberlain Electronically signed, Bulmaro Simms Date: 08/11/23 Time: 9:25 AM ORDERS PLACED . Office Visit on 08/11/23 US FEMALE PELVIS TRANSVAG LUTEINIZING HORMONE TESTOSTERONE, FREE AND TOTAL BACTERIAL VAGINOSIS NAAT TSH BLD DHEA-S BLD FSH BLD PROLACTIN BLD PAP TEST ESTRADIOL-17B BLD CONSULT TO PHYSICAL THERAPY amoxicillin (AMOXIL) 250 mg capsule norethindrone-e.estradiol-iron (LO LOESTRIN FE) 1 mg-10 mcg (24)/10 mcg (2) CPP SUMMARY DIAGNOSES: PCOS? Oligomenorrhea, hirsutism, secondary amenorrhea, urinary frequency, vulvodynia, high tone pfd Surgery 1. Procedures (TPI, botox, pain bocks, etc) 1. Nonhormonal Medications 1. Vaginal valium helps w sleep & not w pain Hormonal medications (IUD, control pill, GNRH) 1. Tried control pill-side effects, never did depo or IUD 2. Marcos-discontinued due to nausea, stopped January 2023 3. Try Lo Loestrin FE control 1 mg-10 mcg Services (GI, urology, pain psych,PFPT) 1. PFPT recommended today 08/11/23 [facility] History of Present illness Narrative* Kimi Lucas, 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 - [employer] - 06/23/2023 12:20 PM EST Images from the original note were not included. [facility] [address] [facility] [address] Dept: [phone] Dept Loc: [phone] Subjective Amie Braxton is a 27 y.o. year old who presents to the office with the following complaint(s): Chief Complaint Patient presents with UTI UTI since today. Pt is experiencing pain, pressure, burning. Pt has headaches and is feeling nauseous. No other symptoms. No concerns for STD's Subjective HPI: Here for possible UTI Sxs for 1 days + freq + urg + dysuria - hematuria No vaginal complaints: itch, discharge, bleeding LMP: 06/10/2023 No abd pain No back/flank pain No fever No chills No rash + h/o UTI Non-DM Increase water intake and AZO Review of Systems Constitutional: Negative for chills and fever. Gastrointestinal: Negative for abdominal pain, nausea and vomiting. Genitourinary: Positive for dysuria, frequency and urgency. Negative for flank pain, hematuria, vaginal bleeding, vaginal discharge and vaginal pain. Musculoskeletal: Negative for back pain. Allergies Allergen Reactions Valier Oil Other reaction(s): Other (See Comments), Other (See Comments) Asthma exacerbation Asthma exacerbation Beef Allergy Hives Cvs Digestive Probiotic [Lactase-Lactobacillus] Hives Eggs Or Egg-Derived Products Hives Food allergy Lactose Other reaction(s): Unknown Allergy to all dairy Milk-Related Compounds Dairy. Emesis, upset stomach Nitrofurantoin Other reaction(s): Other (See Comments), Other (See Comments), Unknown Migraines, upset stomach Migraines, upset stomach Migraines, upset stomach Migraine and light headed Migraine and light headed Migraines, upset stomach Peanut Allergen Powder-Dnfp Hives Peanut-Containing Drug Products Asthma, emesis Pineapple Hives and Swelling Soy Allergy Other reaction(s): GI Intolerance, GI Intolerance, GI Upset, Unknown Soybean-Containing Drug Products Soy, Migraines and upset stomach Vancomycin Hives Current Outpatient Medications on File Prior to Visit Medication Sig Dispense Refill albuterol 0.63 MG/3ML nebulizer solution Inhale 1 ampule. albuterol 108 (90 Base) MCG/ACT inhaler Inhale 1 puff every 6 hours as needed. doxycycline (Vibramycin) 100 MG capsule Take 100 mg by mouth in the morning and 100 mg in the evening. famotidine (Pepcid) 20 MG tablet Take 1 tablet by mouth in the morning and at bedtime. rusmtjkk-vllxieieu-gxcKXQQMoitun (Maxitrol) 0.1 % ophthalmic suspension 1 drop in the morning and 1drop at noon and 1 drop in the evening and 1 drop before bedtime. omeprazole (PriLOSEC) [address] capsule Take 20 mg by mouth. ondansetron ODT (Zofran-ODT) 4 MG disintegrating tablet Take 4 mg by mouth every 8 hours as needed. pentosan polysulfate (Elmiron) 100 MG capsule Take 100 mg by mouth. polyethylene glycol, PEG, 3350 (Glycolax) 17 GM/SCOOP powder Take 17 g by mouth in the morning. Probiotic Product (Align) capsule Take 4 mg by mouth in the morning. Sulfamethoxazole-Trimethoprim (SULFAMETHOXAZOLE-TMP DS PO) Take by mouth Dosage not listed on bottle, Pt is taking 1 tab BID x 10 days. No current facility-administered medications on file prior to visit. Patient Active Problem List Diagnosis Upper abdominal pain Nausea and vomiting Social History Tobacco Use Smoking status: Never Smokeless tobacco: Not on file Substance Use Topics Alcohol use: Not on file Objective Objective BP 110/82 (BP Location: Left arm, Patient Position: Sitting) Pulse 80 Temp 36.4 C (97.5 F) Ht5' (1.524 m) Wt 100 lb (45.4 kg) SpO2 99% BMI 19.53 kg/m Physical Exam Vitals and nursing note reviewed. Constitutional: General: She is awake. She is not in acute distress. Appearance: Normal appearance. She is not ill-appearing, toxic-appearing or diaphoretic. HENT: Head: Normocephalic and atraumatic. Eyes: Conjunctiva/sclera: Conjunctivae normal. Pulmonary: Effort: Pulmonary effort is normal. Abdominal: Tenderness: There is no right CVA tenderness or left CVA tenderness. Musculoskeletal: General: Normal range of motion. Cervical back: Normal range of motion and neck supple. Skin: General: Skin is warm. Neurological: General: No focal deficit present. Mental Status: She is alert and oriented to person, place, and time. Psychiatric: Mood and Affect: Mood normal. Behavior: Behavior is cooperative. Assessment/Plan 1. Dysuria - cephalexin (Keflex) 500 MG capsule; Take 1 capsule (500 mg) by mouth 2 times daily for 7 days., Starting Angie 06/23/2023, Until Angie 06/30/2023, Normal - AMB POC URINALYSIS DIP STICK AUTO W/O MICRO - Urine culture - AMB POC URINE TEST Plan of care for this patient is to treat for UTI. Patient will be given script for Keflex. It was discussed with patient that UA in clinic abnormal d/t Azo but we will get her started on abxd/t her symptoms and hx. -HCG. Patient was advised that [employer] will sending urine for culture to identify pathogen causing infection. Patient told they will be notified of results and if treatment needs asjusted, [employer] will do so once all results have returned. Patient advised to drink fluids, get rest and take all meds as prescribed. Patient advised if symptoms worsen or persist, they are to follow up with PCP. Patient agreeable with treatment plan. Patient given educational materials - see patient instructions. Discussed use, benefit, and side effects of prescribed medications. All patient questions answered. Pt voiced understanding and agrees with treatmentplan.Follow up as directed. Prasanth was used to dictate this note. MARCO August NP 06/23/2023 12:48 PM documented in this [facility]12-14-2023 History of Present illness Narrative* MARCO August NP - 06/23/2023 12:20 PM EST Images from the original note were not included. [facility] [address] [facility] [address] Dept: [phone] Dept Loc: [phone] Subjective Amie Braxton is a 27 y.o. year old who presents to the office with the following complaint(s): Chief Complaint Patient presents with UTI UTI since today. Pt is experiencing pain, pressure, burning. Pt has headaches and is feeling nauseous. No other symptoms. No concerns for STD's Subjective HPI: Here for possible UTI Sxs for 1 days + freq + urg + dysuria - hematuria No vaginal complaints: itch, discharge, bleeding LMP: 06/10/2023 No abd pain No back/flank pain No fever No chills No rash + h/o UTI Non-DM Increase water intake and AZO Review of Systems Constitutional: Negative for chills and fever. Gastrointestinal: Negative for abdominal pain, nausea and vomiting. Genitourinary: Positive for dysuria, frequency and urgency. Negative for flank pain, hematuria, vaginal bleeding, vaginal discharge and vaginal pain. Musculoskeletal: Negative for back pain. Allergies Allergen Reactions Valier Oil Other reaction(s): Other (See Comments), Other (See Comments) Asthma exacerbation Asthma exacerbation Beef Allergy Hives Cvs Digestive Probiotic [Lactase-Lactobacillus] Hives Eggs Or Egg-Derived Products Hives Food allergy Lactose Other reaction(s): Unknown Allergy to all dairy Milk-Related Compounds Dairy. Emesis, upset stomach Nitrofurantoin Other reaction(s): Other (See Comments), Other (See Comments), Unknown Migraines, upset stomach Migraines, upset stomach Migraines, upset stomach Migraine and light headed Migraine and light headed Migraines, upset stomach Peanut Allergen Powder-Dnfp Hives Peanut-Containing Drug Products Asthma, emesis Pineapple Hives and Swelling Soy Allergy Other reaction(s): GI Intolerance, GI Intolerance, GI Upset, Unknown Soybean-Containing Drug Products Soy, Migraines and upset stomach Vancomycin Hives Current Outpatient Medications on File Prior to Visit Medication Sig Dispense Refill albuterol 0.63 MG/3ML nebulizer solution Inhale 1 ampule. albuterol 108 (90 Base) MCG/ACT inhaler Inhale 1 puff every 6 hours as needed. doxycycline (Vibramycin) 100 MG capsule Take 100 mg by mouth in the morning and 100 mg in the evening. famotidine (Pepcid) 20 MG tablet Take 1 tablet by mouth in the morning and at bedtime. ienjscjz-zgoqiaqtl-qmvKVZUBswckc (Maxitrol) 0.1 % ophthalmic suspension 1 drop in the morning and 1drop at noon and 1 drop in the evening and 1 drop before bedtime. omeprazole (PriLOSEC) [address] capsule Take 20 mg by mouth. ondansetron ODT (Zofran-ODT) 4 MG disintegrating tablet Take 4 mg by mouth every 8 hours as needed. pentosan polysulfate (Elmiron) 100 MG capsule Take 100 mg by mouth. polyethylene glycol, PEG, 3350 (Glycolax) 17 GM/SCOOP powder Take 17 g by mouth in the morning. Probiotic Product (Align) capsule Take 4 mg by mouth in the morning. Sulfamethoxazole-Trimethoprim (SULFAMETHOXAZOLE-TMP DS PO) Take by mouth Dosage not listed on bottle, Pt is taking 1 tab BID x 10 days. No current facility-administered medications on file prior to visit. Patient Active Problem List Diagnosis Upper abdominal pain Nausea and vomiting Social History Tobacco Use Smoking status: Never Smokeless tobacco: Not on file Substance Use Topics Alcohol use: Not on file Objective Objective BP 110/82 (BP Location: Left arm, Patient Position: Sitting) Pulse 80 Temp 36.4 C (97.5 F) Ht5' (1.524 m) Wt 100 lb (45.4 kg) SpO2 99% BMI 19.53 kg/m Physical Exam Vitals and nursing note reviewed. Constitutional: General: She is awake. She is not in acute distress. Appearance: Normal appearance. She is not ill-appearing, toxic-appearing or diaphoretic. HENT: Head: Normocephalic and atraumatic. Eyes: Conjunctiva/sclera: Conjunctivae normal. Pulmonary: Effort: Pulmonary effort is normal. Abdominal: Tenderness: There is no right CVA tenderness or left CVA tenderness. Musculoskeletal: General: Normal range of motion. Cervical back: Normal range of motion and neck supple. Skin: General: Skin is warm. Neurological: General: No focal deficit present. Mental Status: She is alert and oriented to person, place, and time. Psychiatric: Mood and Affect: Mood normal. Behavior: Behavior is cooperative. Assessment/Plan 1. Dysuria - cephalexin (Keflex) 500 MG capsule; Take 1 capsule (500 mg) by mouth 2 times daily for 7 days., Starting Angie 06/23/2023, Until Angie 06/30/2023, Normal - AMB POC URINALYSIS DIP STICK AUTO W/O MICRO - Urine culture - AMB POC URINE TEST Plan of care for this patient is to treat for UTI. Patient will be given script for Keflex. It was discussed with patient that UA in clinic abnormal d/t Azo but we will get her started on abxd/t her symptoms and hx. -HCG. Patient was advised that [employer] will sending urine for culture to identify pathogen causing infection. Patient told they will be notified of results and if treatment needs asjusted, [employer] will do so once all results have returned. Patient advised to drink fluids, get rest and take all meds as prescribed. Patient advised if symptoms worsen or persist, they are to follow up with PCP. Patient agreeable with treatment plan. Patient given educational materials - see patient instructions. Discussed use, benefit, and side effects of prescribed medications. All patient questions answered. Pt voiced understanding and agrees with treatmentplan.Follow up as directed. Dragon was used to dictate this note. MARCO August NP 06/23/2023 12:48 PM documented in this [facility]12-14-2023 Instructions* Patient Instructions* MARCO August NP - 06/23/2023 12:20 PM EST You are will want to increase your water intake to help flush the bacteria from your bladder. Make sure to finish all your antibiotic even if your symptoms are completely gone. We will send out a urine culture and if the bacteria is resist to the antibiotics that was prescribed to you today, we will change them at that time. If the urine culture comes back with no bacterial growth and you still collins ve your symptoms, you will have to follow up with your family doctor or LOCOMOTIVE CRANE OPERATOR for further evaluation. documented in this [facility]12-14-2023 Instructions* Patient Instructions* MARCO August NP - 06/23/2023 12:20 PM EST You are will want to increase your water intake to help flush the bacteria from your bladder. Make sure to finish all your antibiotic even if your symptoms are completely gone. We will send out a urine culture and if the bacteria is resist to the antibiotics that was prescribed to you today, we will change them at that time. If the urine culture comes back with no bacterial growth and you still collins ve your symptoms, you will have to follow up with your family doctor or LOCOMOTIVE CRANE OPERATOR for further evaluation. documented in this [facility]12-14-2023 Miscellaneous Notes* Addendum Note - MARCO August NP - 06/23/2023 12:20 PM ESTAddended by: KIMI LUCAS on: 06/26/2023 09:23 AM Modules accepted: Level of Service documented in this [facility]12-14-2023 Note* Addendum Note - MARCO August NP - 06/23/2023 12:20 PM ESTAddended by: KIMI LUCAS on: 06/26/2023 09:23 AM Modules accepted: [phone] NoteAddended by: KIMI LUCAS on: 06/26/2023 09:23 AM Modules accepted: [facility] NoteHNO ID: [id number] Author: Todd Medeiros MD Service: Cardiovascular Testing Author Type: Physician Type: Procedures Filed: 05/06/2023 3:04 PM Note Text: [facility] - Tilt Table Test AMIE BRAXTON : 1995 AGE: 27 SEX: F CSN: [id number] HOSP SVC: LOCATION: ATTENDING PHYSICIAN: TILT TABLE TEST DATE OF SERVICE: 05/05/2023 REFERRING PHYSICIAN: As noted. REASON FOR PROCEDURE: Near syncope. DEMOGRAPHICS: A 27-year-old female with a near syncopal episode. The patient was referred for tilt table study. Please see the history and physical for details. PROCEDURE: The procedure, risks, and benefits were explained in detail. Consent was obtained. The patient underwent standard 80-degree head up tilt table study. The patient tolerated the procedure well. No complications. FINDINGS: The baseline ECG showed sinus rhythm rate of [address] segment changes, otherwise unremarkable. The patient underwent standard 90-degree head up tilt table study, as described above. 1. The test is negative for orthostatic hypotension. 2. The test is negative for vasomotor/neurocardiogenic syncope. 3. The test is negative for cardiac dysrhythmias. 4. Nitroglycerin challenge was not performed. 5. Carotid massage was not performed. IMPRESSION: Negative study. Todd Medeiros MD BS/[id number] [facility] File#: [id number] CC: [facility]10-27-2023 Procedure note* Todd Medeiros MD - 05/06/2023 9:07 AM EDTAssociated Order(s): CARDIOLOGY REPORT [facility] - Tilt Table Test AMIE BRAXTON : 1995 AGE: 27 SEX: F [id number] ATTENDING PHYSICIAN: TILT TABLE TEST DATE OF SERVICE: 05/05/2023 REFERRING PHYSICIAN: As noted. REASON FOR PROCEDURE: Near syncope. DEMOGRAPHICS: A 27-year-old female with a near syncopal episode. The patient was referred for tilt table study. Please see the history and physical for details. PROCEDURE: The procedure, risks, and benefits were explained in detail. Consent was obtained. The patient underwent standard 80-degree head up tilt table study. The patient tolerated the procedure well. No complications. FINDINGS: The baseline ECG showed sinus rhythm rate of [address] segment changes, otherwise unremarkable. The patient underwent standard 90-degree head up tilt table study, as described above. 1. The test is negative for orthostatic hypotension. 2. The test is negative for vasomotor/neurocardiogenic syncope. 3. The test is negative for cardiac dysrhythmias. 4. Nitroglycerin challenge was not performed. 5. Carotid massage was not performed. IMPRESSION: Negative study. Todd Medeiros MD /[id number] [facility] File#: [id number] CC: Dr. Guerrero [facility] Work Phone: [phone] Procedure note* Todd Medeiros MD - 05/06/2023 9:07 AM EDTAssociated Order(s): CARDIOLOGY REPORT [facility] - Tilt Table Test AMIE BRAXTON : 1995 AGE: 27 SEX: F CSN: [id number] [facility] SVC: LOCATION: ATTENDING PHYSICIAN: TILT TABLE TEST DATE OF SERVICE: 05/05/2023 REFERRING PHYSICIAN: As noted. REASON FOR PROCEDURE: Near syncope. DEMOGRAPHICS: A 27-year-old female with a near syncopal episode. The patient was referred for tilt table study. Please see the history and physical for details. PROCEDURE: The procedure, risks, and benefits were explained in detail. Consent was obtained. The patient underwent standard 80-degree head up tilt table study. The patient tolerated the procedure well. No complications. FINDINGS: The baseline ECG showed sinus rhythm rate of [address] segment changes, otherwise unremarkable. The patient underwent standard 90-degree head up tilt table study, as described above. 1. The test is negative for orthostatic hypotension. 2. The test is negative for vasomotor/neurocardiogenic syncope. 3. The test is negative for cardiac dysrhythmias. 4. Nitroglycerin challenge was not performed. 5. Carotid massage was not performed. IMPRESSION: Negative study. Todd Medeiros MD /[id number] [facility] File#: [id number] CC: Dr. Guerrero documented [facility] this [facility] History of Present illness Narrative* Sánchez Minaya RN - 03/10/2023 3:40 PM EDT Hydrocortisone cream 2.5% applied to positive skin test reactions per order. Discussed avoidance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 pain. Gastrointestinal: Positive for heartburn. Genitourinary: Negative. Musculoskeletal: Negative. Skin: Positive for itching and rash. She reports hive like rashes during allergy season Neurological: Negative. Physical Exam Constitutional: Appearance: Normal appearance. HENT: Head: Normocephalic and atraumatic. Right Ear: External ear normal. Left Ear: External ear normal. Nose: Nose normal. Mouth/Throat: Mouth: Mucous membranes are moist. Pharynx: Oropharynx is clear. Eyes: Extraocular Movements: Extraocular movements intact. Conjunctiva/sclera: Conjunctivae normal. Pupils: Pupils are equal, round, and reactive to light. Cardiovascular: Rate and Rhythm: Normal rate and regular rhythm. Pulses: Normal pulses. Heart sounds: Normal heart sounds. Pulmonary: Effort: Pulmonary effort is normal. Breath sounds: Normal breath sounds. Abdominal: General: Abdomen is flat. Bowel sounds are normal. Palpations: Abdomen is soft. Musculoskeletal: General: Normal range of motion. Cervical back: Normal range of motion. Skin: General: Skin is warm and dry. Neurological: General: No focal deficit present. Mental Status: She is oriented to person, place, and time. Mental status is at baseline. Psychiatric: Mood and Affect: Mood normal. DATA: Last Spirometry SPIROMETRY - BASELINE AND POST DILATOR Collected: 11/18/2022 8:20 AM (Preliminary result) Narrative: [facility] [address] [place] [address] Test Date: 2022-11-18 Pat Name: AMIE BRAXTON Department: Room: Gender: Female Second Chef: : 1995 Requested By: Order Number: [id number] Reading MD: Interpretive Statements ATS/ERS acceptability and repeatability standards for spirometry met. 2 puffs Albuterol (180 mcg) delivered by MDI via holding chamber. HR pre = 87/min, HR post = 87/min. IMPRESSION: ID: [id number] Name: AMIE BRAXTON Race: White Ht: 61.00 in Wt: 106.00 lbs Age: 27 Gender: Female : 1995 Dx: Mild intermittent asthma, uncomplicated Smoking Hx: Non-smoker Doctor: AYAKA ANNE Test Date: 11/18/2022 Site: Tech: Eamon Jolynn PRE-BRONCH POST-BRONCH Pre LLN Pred ULN %Pred Post %Pred %Chg SPIROMETRY FVC (L) 3.56 2.73 3.42 4.13 103 3.37 98 -5 FEV1 (L) 2.97 2.38 2.96 3.53 100 2.97 100 0 FEV1/FVC 0.83 0.75 0.87 0.96 96 0.88 101 5 PEF L/s (L/sec) 5.85 4.94 6.49 8.04 90 5.20 80 -11 FEF50 (L/sec) 3.86 2.32 3.93 5.54 98 3.24 82 -15 FIF50 (L/sec) 4.00 3.33 -16 FEF50/FIF50 0.97 90-100 0.97 0 FIVC (L) 3.35 3.02 -9 FEJ03-17 (L/sec) 3.13 2.32 3.53 4.90 88 3.01 85 -3 Time (sec) 3.36 2.23 -33 FET PEF (sec) 0.08 0.08 3 KAVITA (L) 0.07 0.05 -22 Vol Extrap % (%) 2 2 -17 Comments: ATS/ERS acceptability and repeatability standards for spirometry met. 2 puffs Albuterol (180 mcg) delivered by MDI via holding chamber. HR pre = 87/min, HR post = 87/min. Last XR Chest - Impression Only XR CHEST 1V FRONTAL Exam End: 10/16/2022 10:53 PM (Final result) Impression: IMPRESSION: No acute radiographic abnormality. ... Last CT Chest - Impression Only CT CHEST W IVCON PE Exam End: 10/17/2022 2:04 AM (Final result) Impression: IMPRESSION: Suboptimal study for assessment of the distal segmental and subsegmental branches due to respiratory motion with or without non-ideal pulmonary arterial enhancement. No CT evidence of pulmonary embolism within the main, lobar or proximal segmental branches. 3 mm right middle lobe nodule. Most commonly nodules such as these in patients of this age are benign and related to prior infection/inflammation. One year follow-up chest CT could be performed to ... Last Echocardiogram No resulted procedures found. ASSESSMENT AND PLAN: (R76.8) Elevated IgE level (primary encounter diagnosis), (Z91.09) History of environmental allergies Comment: Started taking daily Zyrtec, somewhat helpful. Not able to tolerate montelukast d/t side effects (mood changes). Not having any sinus pain/pressure or drainage. She also reports ongoing rashes, hive-like, and a history of multiple food allergies. 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 LastIGE level was 299.0 on 10/18/2022. Will send formal referral to allergy. (J45.30) Mild persistent asthma, unspecified whether complicated Comment: Not well controlled, however, she has only used her levalbuterol once this month. She reports ongoing chest tightness that doesn't improve with rescue inhaler. Her cough improved with steroids, but not with rescue inhaler. I suspect her allergies are playing a large component in her symptoms as well. Will step up her inhaler to Symbicort 80/4.5 for now. She was instructed to call if she is unable to get this inhaler through her insurance. (K21.00) Gastroesophageal reflux disease with esophagitis without hemorrhage Comment: She reports that she was diagnosed with GERD when she was a child. She has some occasionalheart burn symptoms. Will start her on omeprazole 20 mg daily. (F41.9) Anxiety Comment: Currently treated with as needed alprazolam, however, she is not on any half-way treatment. She is following with counseling. She needs a PCP to follow for this. Will place referral. RTC 3 months All questions from patient were answered. Patient was instructed to call the office with any worsening symptoms: - shortness of breath - cough - increased rescue inhaler use - signs/symptoms of upper respiratory infection Hannah Grimes APRN-HORSE SHOER [facility] Ayaka Anne PA-C documented in this encounterKettering Health [facility]05-11-2023 Nurse Note* Laurence Chowdary LPN - 11/18/2022 8:36 AM EDT Intake information documented in the prior visit with ALBARO Lacy today. documented in this encounterKettering Health [facility]05-11-2023 Procedure note* ALBARO Lacy - 11/18/2022 8:27 AM EDTAssociated Order(s): NITRIC OXIDE, EXHALED RESPIRATORY THERAPY ORAL EXHALED NITRIC OXIDE SERVICE DATE: 11/18/2022 SERVICE TIME: 8:27 AM Oral Exhaled Nitric Oxide measurement: 11.0 (ppb) Normal: Adult 5-20 ppb, pediatric (<12 years) 5-15 ppb High Normal / Increased: Adult 20-35 ppb, pediatric (<12 years) 15-25 ppb Moderately raised exhaled Nitric Oxide may indicate underlying inflammation, but note that: Cold and influenza can raise exhaled Nitric Oxide and some patients have higher baseline exhaled Nitric Oxide levels than others. High: Adult >35 ppb, pediatric (<12 years) >25 ppb Indicative of ongoing eosinophilic inflammation. Symptomatic patient likely to respond to steroids. Possible causes (if already on steroids): Poor compliance, recent allergen exposure, steroid dose inadequate, and steroid resistance. Note that not all patients with high exhaled nitric oxide levels display symptoms. Oral Exhaled Nitric Oxide measurement (Previous Encounters) Test Date Oral Exhaled Nitric Oxide (ppb) 11/18/2022 11.0 NAME: ALBARO Lacy PATIENT NAME: Amie Braxton DATE: November 18, 2022 TIME: 8:27 AM documented in this encounterKettering [facility]05-11-2023 History of Present illness Narrative* ALBARO Lacy - 11/18/2022 8:11 AM EDT PULM FUNCTION SMARTBLOCK: Provider: Ayaka Anne PA-C Assisting Tech: ALBARO Lacy Spirometry w/BD: 1 Exhaled Nitric Oxide: 1 documented in this encounterKettering Health [facility]ble04-14-2023 Miscellaneous Notes* Telephone Encounter - Shruti Cooper RN - 10/22/2022 1:01 PM EDT Called to relay response from Alea Membreno. No response. Sent [employer] message. * Telephone Encounter - Alea Membreno APRN.CNP - 10/22/2022 12:50 PM EDT Recommend patient discuss lactose-free control alternatives with her pharmacist as they wouldbe the expert in this matter. We are happy to prescribed whatever brand she thinks would be best for her. Cymbalta refilled. The following approved medication requests have been transmitted electronically. Requested Prescriptions Signed Prescriptions Disp Refills DULoxetine (CYMBALTA) 30 mg capsule 30 capsule 2 Sig: Take 1 capsule by mouth once daily. Authorizing Provider: ALEA MEMBRENO Pharmacy Information Pharmacy Address Telephone [facility]/pharmacy #[id number] [address] [place] [address] Alea Membreno APRN.CNP October 22, 2022 12:52 PM * Telephone Encounter - Shruti Cooper RN - 10/22/2022 10:08 AM EDT Call placed to patient, verified name and date of . Patient is not sure what medication she had a reaction to. Drospirenone-Ethinyl Estradiol (MARCOS, 28,) 3-0.02 mg per tablet medroxyPROGESTERone (PROVERA) 10 mg tablet Both meds have lactose in them and she was warned by the pharmacy. She is allergic to lactose. Reaction: patient had severe nausea immediately which is what she experiences with dairy. Needs refill for Cymbalta - pended to [facility] in [place] based on patient travel on this date. Pharmacy for ongoing rx for replacement for Marcos and/or provera [facility] [place]. Patient verbalized understanding. No further questions. Shruti Cooper RN October 22, 2022 10:13 AM * Telephone Encounter - Anuja Mathur - 10/22/2022 9:51 AM EDT Patient called in and stated to have had an allergic reaction to the below medication and would like a alternative prescriptions. Drospirenone-Ethinyl Estradiol (MARCOS, 28,) 3-0.02 mg per tablet medroxyPROGESTERone (PROVERA) 10 mg tablet Also the patients states that her prescription for CYMBALTA was not submitted to the pharmacy and she still needs that as well. Contact the patient [phone] Yasmeen Licea documented in this encounterKettering Health [facility]04-14-2023 History of Present illness Narrative* Ayaka Anne PA-C - 10/22/2022 8:30 AM EDT Images from the original note were not included. [facility] FOLLOW-UP OFFICE VISIT 10/21/2022 HISTORY OF PRESENT ILLNESS: Amie Braxton is a 27 year old never smoker female who presents today for hospital follow-up. Past medical history is significant for asthma, Covid infections 06/2020 and 11/2021, PCOS, PTSD, and anxiety disorder. Asthma diagnosed at age 14 and well controlled until she had Covid. Never required hospitalization. Previously treated with Flovent until approximately 1 year ago she was able to discontinue it and use albuterol as needed. Typically only required albuterol prior to exercise. Multiple food allergies. Carries epi pen for pineapple allergy. Never required IT for allergies. Patient was admitted to [facility] from 10/17 - 10/18 for treatment of asthma exacerbation. She had previously been seen in the ED on 10/08 for SOB and was treated with Duonebs, however, she went into PSVT requiring adenosine, treated with Ativan, beta-lela and discharged home on Prednisone. She continued to have respiratory symptoms despite use of her inhalers and was admitted for ongoing treatment of asthma exacerbation. CTA of the chest only notable for a 3 mm lung nodule. Patientdischarged home on ICS with albuterol as needed. Will need PFTs and nitric oxide as an outpatient. IgE elevated at 299 with normal eosinophil. Today, the patient reports she states symptoms persist since being discharged. Consistently using Flovent 1 inhalation twice daily. Has not been using Albuterol secondary to heart racing and palpitations. Persistent chest tightness. Occasional cough that is non-productive. No wheezing. Feels SOB at rest and worse with exertion. Lightheadedness and dizziness. Heart racing. No fevers, chills or night sweats since admission. Nighttime she is waking up secondary to heart racing. Pets: room mates cat in home, not in bedroom. 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 ROS: General: No unintentional weight loss. Appetite good. Eyes, Ears, nose, throat: No post nasal drip, rhinorrhea, purulent nasal discharge, epistaxis. No hoarseness. Vision stable. Cardiac: No angina, edema, orthopnea. Resp: See HPI. GI: No heartburn, dysphagia. Musculoskeletal: No pain. Neuro: No headache, focal weakness, tremor. Skin: No rash. Otherwise negative. Current Outpatient Medications Medication Sig Dispense Refill doxycycline hyclate (VIBRAMYCIN) 100 mg capsule Take 1 capsule by mouth every 12 hours 6am/6pm for 5 days. 10 capsule 0 fluticasone furoate (ARNUITY ELLIPTA) 50 mcg/actuation powder for inhalation Inhale 1 Puff as instructed once daily. 2 Each 0 ALPRAZolam (XANAX) 0.25 mg tablet Take 1 tablet by mouth at bedtime as needed for anxiety for up to8 days. 7 tablet 0 predniSONE (DELTASONE) 10 mg tablet Take 10 mg by mouth twice daily. X5 days medroxyPROGESTERone (PROVERA) 10 mg tablet Take 1 tablet by mouth once daily. 10 tablet 0 Drospirenone-Ethinyl Estradiol (MARCOS, 28,) 3-0.02 mg per tablet Take 1 tablet by mouth once daily. (Patient not taking: Reported on 10/17/2022) 84 tablet 4 No current facility-administered medications for this visit. I have reviewed and updated the medication list in the EMR. ALLERGIES Allergen Reactions Beef Containing Pro* Hives Egg Derived Hives Lactose Other: See Comments Allergy to all dairy Pineapple Hives, Swelling Soy GI Upset Tree Nuts Other: See Comments Vancomycin Analogues Hives PHYSICAL EXAMINATION: BP (P) 102/68 Pulse 105 Wt 48.6 kg (107 lb 3.2 oz) LMP 05/30/2022 (Within Days) SpO2 98% BMI 20.94 kg/m Gen: No acute distress. Cooperative with examination. ENT: Oral hygeine and dentition good. Pharynx clear. No halitosis. No thrush. Resp: No stridor, accessory respiratory muscle use, supra-sternal or intercostal retractions. No wheezes, crackles. CV: Regular rythm. Heart tones normal. Radial pulses normal. Abd: Non distended. MSK: No kyphoscoliosis. Ext: Warm and well perfused. No clubbing, cyanosis, edema. Skin: No rash, ecchymoses. Neuro: Mental status normal. Affect normal. No tremor. DATA REVIEW: I have personally reviewed the following: CTA chest, 10/17/2022 IMPRESSION: Suboptimal study for assessment of the distal segmental and subsegmental branches due to respiratory motion with or without non-ideal pulmonary arterial enhancement. No CT evidence of pulmonary embolism within the main, lobar or proximal segmental branches. 3 mm right middle lobe nodule. Most commonly nodules such as these in patients of this age are benign and related to prior infection/inflammation. One year follow-up chest CT could be performed to document clinical stability/resolution. Labs Component Latest Ref Rng & Units 10/18/2022 WBC 3.70 - 11.00 k/uL 9.43 RBC 3.90 - 5.20 m/uL 4.74 Hemoglobin 11.5 - 15.5 g/dL 14.2 Hematocrit 36.0 - 46.0 % 43.0 MCV 80.0 - 100.0 fL 90.7 MCH 26.0 - 34.0 pg 30.0 MCHC 30.5 - 36.0 g/dL 33.0 RDW-CV 11.5 - 15.0 % 13.4 Platelet Count 150 - 400 k/uL 305 MPV 9.0 - 12.7 fL 10.3 Absolute nRBC <0.01 k/uL <0.01 Glucose 74 - 99 mg/dL 85 BUN 7 - 21 mg/dL 10 Creatinine 0.58 - 0.96 mg/dL 0.64 Sodium 136 - 144 mmol/L 143 Potassium 3.7 - 5.1 mmol/L 3.8 Chloride 97 - 105 mmol/L 105 CO2 22 - 30 mmol/L 27 Anion Gap 9 - 18 mmol/L 11 Calcium 8.5 - 10.2 mg/dL 9.0 eGFR >=60 mL/min/1.73m 126 IgE <114.0 kU/l 299.0 (H) ASSESSMENT/PLAN: 1. Mild persistent asthma, unspecified whether complicated - ICD9: 493.90, ICD10: J45.30 (primary diagnosis) Recently admitted for exacerbation. Has completed course of prednisone. Continue Flovent twice daily. Rinse mouth after each use to help prevent oral thrush. Albuterol is contributing to tachycardia. Will change from Albuterol to Xopenex HFA inhaler, 2 inhalations 10-15 minutes prior to activities associated with shortness of breath, and as needed for rescue relief of shortness of breath or wheezing, up to 4 times daily. Start Singulair 1 tablet nightly. Discussed risks and side effect profile. Patient to discontinue if she experiences any side effects. Allergy screen to evaluate environmental triggers. Will obtain PFT and nitric oxide at next OV. - LEVALBUTEROL HFA 45 MCG/ACTUATION AEROSOL INHALER - MONTELUKAST 10 MG TABLET - SPIROMETRY - BASELINE AND POST DILATOR - NITRIC OXIDE, EXHALED 2. Elevated IgE level - ICD9: 795.79, ICD10: R76.8 See #1. - [facility] 3. History of environmental allergies - ICD9: V15.09, ICD10: Z91.09 See #1. Ayaka Anne PA-C documented in this encounterKettering [facility]04-11-2023 Miscellaneous Notes* Telephone Encounter - Kay Farias LPN - 10/19/2022 6:20 PM EDT Patient calling with request for prior authorization for inhaler and medication problem. 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 Kay Farias LPN documented in [place] encounterKenneth [place]ille [address]-09-2023 History of Past illness Narrative* Problem Noted Date Resolved Date LIYA (acute kidney injury) 10/17/20222022 Anxiety 10/17/2022 10/18/2022 documented as of this encounter (statuses as of 10/20/2022) [address]09-2023 History of Past illness Narrative* Problem Noted Date Resolved Date LIYA (acute kidney injury) 10/17/20222022 Anxiety 10/17/2022 10/18/2022 documented as of this encounter (statuses as of 10/22/2022) [address]09-2023 History of Past illness Narrative* Problem Noted Date Resolved Date LIYA (acute kidney injury) 10/17/20222022 Anxiety 10/17/2022 10/18/2022 documented as of this encounter (statuses as of 10/23/2022) [address]09-2023 History of Past illness Narrative* Problem Noted Date Resolved Date LIYA (acute kidney injury) 10/17/20222022 Anxiety 10/17/2022 10/18/2022 documented as of this encounter (statuses as of 11/01/2022) [address]09-2023 History of Past illness Narrative* Problem Noted Date Resolved Date LIYA (acute kidney injury) 10/17/20222022 documented as of this encounter (statuses as of 11/18/2022) [address]09-2023 History of Past illness Narrative* Problem Noted Date Resolved Date LIYA (acute kidney injury) 10/17/20222022 documented as of this encounter (statuses as of 11/18/2022) [address]09-2023 History of Past illness Narrative* Problem Noted Date Diagnosed Date Resolved Date LIYA (acute kidney injury) 10/17/2022 documented as of this encounter (statuses as of 02/11/2023) [address]09-2023 History of Past illness Narrative* Problem Noted Date Diagnosed Date Resolved Date LIYA (acute kidney injury) 10/17/2022 documented as of this encounter (statuses as of 02/12/2023) [facility]09[facility] History of Past illness Narrative* Problem Noted Date Diagnosed Date Resolved Date LIYA (acute kidney injury) 10/17/2022 documented as of this encounter (statuses as of 03/12/2023) [address]09-2023 History of Past illness Narrative* Problem Noted Date Diagnosed Date Resolved Date LIYA (acute kidney injury) 10/17/2022 documented as of this encounter (statuses as of 08/11/2023) [facility] History of Past illness Narrative* Problem Noted Date Diagnosed Date Resolved Date LIYA (acute kidney injury) 10/17/2022 documented as of this encounter (statuses as of 08/25/2023) [facility] History of Past illness Narrative* Problem Noted Date Diagnosed Date Resolved Date LIYA (acute kidney injury) 10/17/2022 documented as of this encounter (statuses as of 08/31/2023) [facility] History of Past illness Narrative* Problem Noted Date Diagnosed Date Resolved Date LIYA (acute kidney injury) 10/17/2022 documented as of this encounter (statuses as of 08/31/2023) [facility] History of Past illness Narrative* Problem Noted Date Diagnosed Date Resolved Date LIYA (acute kidney injury) 10/17/2022 documented as of this encounter (statuses as of 10/17/2023) [facility]03-30-2023 Instructions* Patient Instructions* Sanjana Chamberlain MD - 10/07/2022 10:53 AM EDT Start provera 10mg daily for 10 days, if you start bleeding still keep taking it After stopping it you should bleed after 2-3 days If after 7 days you havent bled, please contact me by sending a [employer] message 2. Once you bleed, after that you can start marcos, you can start on a Tuesday Take daily 3. I will contact you if the myscoplasma culture is postiive or negative. 4. Use xanax sparingly as needed for anxiety attacks. Avoid with alcohol 5. For anxiety and pain start cymbalta 30mg in am with or without food Virtual visit in 3months Polycystic Ovary Syndrome Women with polycystic ovary syndrome (PCOS) have a hormonal imbalance that interferes with normal reproductive processes. PCOS usually starts at puberty and is associated with irregular periods and other hormone related symptoms. The most concerning issues with PCOS are the increase of infertility,the risk of developing type 2 diabetes and cardiovascular disease, and the higher risk of developing endometrial (uterine) cancer at an early age. What are the symptoms of PCOS? Irregular menstrual periods, or no menstrual periods at all Decreased frequency or complete lack of ovulation, resulting in problems with infertility Obesity, often specifically characterized by weight gain in the upper body and abdomen Oily skin and hair and persistent acne into adulthood Abnormal hair growth, in a masculine distribution (facial hair, heavy hair growth on arms, chest, and abdomen) Tendency to develop type 2 diabetes What causes PCOS syndrome? Research is ongoing to uncover a cause for PCOS. There is evidence that shows a link between certain forms of PCOS and family history, suggesting a genetic basis for the condition. How is PCOS diagnosed? Most cases can be diagnosed with a thorough evaluation of your medical history and symptoms, as well as a physical exam. A blood test may be required to measure the levels of various hormones. In some cases, an ultrasound of the ovaries may help with diagnosis. How is PCOS treated? Although PCOS can be treated with medications, treatment is often highly dependent on your goals and your symptoms. If you want to become , you may need the assistance of oral or injected fertility medications. If you do not want to become , you may consider control pills to prevent pregnancyand regulate periods. Other symptoms such as unwanted hair growth, acne, obesity, and diabetes should be managed by specialists in those areas. Specific treatment options should be discussed with your physician. How can PCOS be prevented? There is no known prevention for PCOS. However, through proper nutrition and weight management manywomen with polycystic ovary syndrome can avoid developing diabetes and cardiovascular problems. How can I improve my chances of conceiving if I have PCOS? While specific fertility issues should be addressed with your physician, there are some general healthcare guidelines that may improve your chances of becoming : Folic acid (400 mcg. supplement a day, with a diet rich in folic acid, including leafy green vegetables, dried beans, liver, and citrus fruits) Limit caffeine (Fewer than two caffeinated beverages per day) Eat well (Healthy well-balanced diet) Exercise and maintain a healthy weight (Maintain a normal exercise routine, 20 to 30 minutes per day, 4 to 5 times per week.) This information is provided by your physician and the [facility] Journal [facility] Medicine and the[facility] [email or web address]. This information has not been designed to replace a physician's medical assessment and medical judgment. Copyright 1994- 2012 The [facility]. All rights reserved This information is provided by the [facility] and is not intended to replace the medical advice of your doctor or health care provider. Please consult your health care provider for advice about a specific medical condition. For additional health information, please contact the Center for Consumer Health Information at the [facility] or toll-free extension [phone]. If you prefer, you may visit [email or web address] or [email or web address]. This document was last reviewed on: 2009 index#[id number] documented in this encounterKettering Health [facility]03-30-2023 History of Present illness Narrative* Sanjana Chamberlain MD - 10/07/2022 10:00 AM EDT CHRONIC PELVIC PAIN FOLLOW UP VISIT Amie Braxton is a 27 year old female who presents for continued management of chronic pelvic pain. HISTORY SINCE LAST VISIT: PLAN: PFPT referral placed today. Dr. Chamberlain decided to cancel. Trial of vaginal valium (diazepam 5 mg), ordered today. Tried this, didn't really help. Ordered blood work today (FSH, LH & prolactin). Saw that hormones are way off - following up onthis today. Continue counseling. Yes Trial of magnesium or IC diet for symptoms of insomnia and constipation. Did not try I Feb as anxious, anxiety attack never had before. 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 Hyperventilating. ntensity of pain: moderate Average Pain level: 6 on a scale of 0-10 Emergency room visits for pain since last visit: no Level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 [facility] note* Diagnosis Chronic rhinitis- Primary Asthma, unspecified asthma severity, unspecified whether complicated, unspecified whether persistent Allergic conjunctivitis, bilateral Other chronic allergic conjunctivitis Tree nut allergy Allergy to other foods H/O peanut allergy Allergy to peanuts Dizziness Dizziness and giddiness Cow's milk allergy Allergy to milk products Food allergy Other adverse food reactions, not elsewhere classified documented in this encounter [facility] note* Diagnosis Dysuria- Primary documented in this encounter [facility] note* Diagnosis Dysuria- Primary documented in this encounter [facility] note* Diagnosis Secondary amenorrhea- Primary Absence of menstruation Urinary frequency PCOS (polycystic ovarian syndrome) Polycystic ovaries Screening for cervical cancer Screening for malignant neoplasm of the cervix High-tone pelvic floor dysfunction Other specified disorders of female genital organs Vulvodynia Vulvodynia, unspecified documented in this encounter [facility] note* Diagnosis Cervical cancer screening- Primary Screening for malignant neoplasm of the cervix Acute vaginitis Vaginitis and vulvovaginitis, unspecified documented in this encounter [facility] note* Diagnosis Interstitial cystitis (chronic) with hematuria- Primary Urinary frequency Vaginal discharge Leukorrhea, not specified as infective Urethralgia Other symptoms involving urinary system Urethritis Urethritis, unspecified Myofascial pain Mylagia and myositis, unspecified Vulvodynia Vulvodynia, unspecified documented in this encounter [facility] note* Diagnosis Urinary frequency- Primary Nocturia Interstitial cystitis (chronic) with hematuria documented in this encounter [facility] note* Diagnosis Acute suppurative otitis media of left ear without spontaneous rupture of tympanic membrane, recurrence not specified- Primary documented in this encounter [facility] note* Diagnosis Multiple food allergies- Primary Other adverse food reactions, not elsewhere classified Migraine with aura and without status migrainosus, not intractable Migraine with aura, without mention of intractable migraine without mention of status migrainosus Syncope, unspecified syncope type Dizziness Dizziness and giddiness Screening for depression Brain fog Screening for HIV (human immunodeficiency virus) Special screening examination for other specified viral diseases Hepatitis B vaccination status unknown COVID-19 long hauler Anxiety and depression Dysthymic disorder documented in this encounter [facility] note* Diagnosis Abnormal ECG- Primary Nonspecific abnormal electrocardiogram (ECG) (EKG) documented in this encounter [facility] note* Diagnosis Tachycardia- Primary Unspecified tachycardia Tachycardia Unspecified tachycardia Chest pain, unspecified type Abnormal EKG Nonspecific abnormal electrocardiogram (ECG) (EKG) documented in this encounter [facility] note* Diagnosis Abnormal ECG Nonspecific abnormal electrocardiogram (ECG) (EKG) documented in this encounter [facility] note* Diagnosis Anxiety and depression Dysthymic disorder documented in this encounter [facility] note* Diagnosis Hospital discharge follow-up- Primary Other follow-up examination Anxiety and depression Dysthymic disorder B12 deficiency Other B-complex deficiencies documented in this encounter [facility] note* Diagnosis Hospital discharge follow-up- Primary Other follow-up examination POTS (postural orthostatic tachycardia syndrome) Unspecified tachycardia documented in this encounter [facility] note* Diagnosis Hospital discharge follow-up- Primary Other follow-up examination POTS (postural orthostatic tachycardia syndrome) Unspecified tachycardia documented in this encounter [facility] note* Diagnosis Moderate persistent asthma without complication- Primary Unspecified asthma Multiple environmental allergies Other allergy, other than to medicinal agents Gastroesophageal reflux disease, unspecified whether esophagitis present documented in this encounter [facility] note* Diagnosis Dizziness and giddiness- Primary documented in this encounter [facility] note* Diagnosis POTS (postural orthostatic tachycardia syndrome) Unspecified tachycardia documented in this encounter [facility] note* Diagnosis Anxiety and depression- Primary Dysthymic disorder Gastroesophageal reflux disease with esophagitis without hemorrhage documented in this encounter [facility] note* Diagnosis Dizziness- Primary Dizziness and giddiness Migraine with aura and without status migrainosus, not intractable Migraine with aura, without mention of intractable migraine without mention of status migrainosus Syncope, unspecified syncope type Interstitial cystitis Chronic interstitial cystitis documented in this encounter [facility] note* Diagnosis Anxiety and depression- Primary Dysthymic disorder documented in this encounter [facility] note* Diagnosis 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 Brain fog documented in this encounter [facility] note* Diagnosis Syncope, unspecified syncope type Dizziness Dizziness and giddiness documented in this encounter [facility] note* Diagnosis POTS (postural orthostatic tachycardia syndrome)- Primary Unspecified tachycardia documented in this encounter [facility] note* Diagnosis Gastroesophageal reflux disease with esophagitis without hemorrhage Syncope, unspecified syncope type Dizziness Dizziness and giddiness documented in this encounter [facility] note* Diagnosis POTS (postural orthostatic tachycardia syndrome)- Primary Unspecified tachycardia documented in this encounter [facility] note* Diagnosis Anxiety Anxiety state, unspecified Syncope, unspecified syncope type Dizziness Dizziness and giddiness documented in this encounter [facility] note* Diagnosis Food intolerance- Primary Other specified intestinal malabsorption Inducible laryngeal obstruction (ILO) Chronic cough Cough Dysphonia Moderate persistent asthma without complication Unspecified asthma Seasonal allergic rhinitis due to pollen Allergic rhinitis due to dust mite Allergic rhinitis due to animal hair and dander Allergic rhinitis due to animal (cat) (dog) hair and dander Allergic rhinitis due to mold Globus sensation Gastrointestinal malfunction arising from mental factors documented in this encounter [facility] note* Diagnosis POTS (postural orthostatic tachycardia syndrome)- Primary Unspecified tachycardia documented in this encounter [facility] note* Diagnosis POTS (postural orthostatic tachycardia syndrome)- Primary Unspecified tachycardia documented in this encounter [facility] note* Diagnosis Gastroesophageal reflux disease with esophagitis without hemorrhage documented in this encounter [facility] note* Diagnosis Other intractable trigeminal autonomic cephalgia (TAC) documented in this encounter [facility] note* Diagnosis Dysphagia, unspecified type- Primary Gastroesophageal reflux disease, unspecified whether esophagitis present documented in this encounter [facility] note* Diagnosis Encounter to establish care- Primary Other reasons for seeking consultation POTS (postural orthostatic tachycardia syndrome) Tachycardia, unspecified PCOS (polycystic ovarian syndrome) Polycystic ovaries Moderate persistent asthma without complication Unspecified asthma Gastroesophageal reflux disease with esophagitis without hemorrhage Seasonal allergic rhinitis due to pollen Vitamin B12 deficiency Other B-complex deficiencies documented in this encounter [facility] note* Diagnosis 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 Intractable migraine without aura and without status migrainosus Migraine without aura, with intractable migraine, so stated, without mention of status migrainosus documented in this encounter [facility] note* Diagnosis Frequency of urination- Primary Urinary frequency documented in this encounter [facility] note* Diagnosis Dysphagia, unspecified type- Primary Constipation, unspecified constipation type documented in this encounter [facility] note* Diagnosis Dysphagia, unspecified type documented in this encounter [facility] note* Diagnosis Chest pain, unspecified type documented in this encounter [facility] note* Diagnosis Dysphagia, unspecified type- Primary documented in this encounter [facility] note* Diagnosis Dysphagia, unspecified type documented in this encounter [facility] note* Diagnosis Esophageal spasm- Primary Dyskinesia of esophagus documented in this encounter [facility] note* Diagnosis Abdominal bloating- Primary Flatulence, eructation, and gas pain documented [facility] [place] [facility]* Diagnosis Moderate persistent asthma without complication- Primary Unspecified asthma [facility] [place] [facility]* Diagnosis Moderate persistent asthma without complication- Primary Unspecified asthma [facility] [place] [facility]* Diagnosis Moderate persistent asthma without complication- Primary Unspecified asthma Multiple environmental allergies Other allergy, other than to medicinal agents Gastroesophageal reflux disease, unspecified whether esophagitis present documented in this encounter [facility] note* Diagnosis Abdominal bloating Flatulence, eructation, and gas pain [facility] [place] [facility]* Diagnosis Anxiety Anxiety state, unspecified documented in this encounter [facility] note* Diagnosis Psychological and behavioral factors associated with disorders or diseases classified elsewhere- Primary 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 [facility] [place] [facility]* Diagnosis Vitamin B12 deficiency- Primary Other B-complex deficiencies [facility] [place] [facility]* Diagnosis Shortness of breath- Primary Moderate persistent asthma without complication Unspecified asthma POTS (postural orthostatic tachycardia syndrome) Tachycardia, unspecified Dizziness Dizziness and giddiness Palpitations Tachycardia Tachycardia, unspecified Chest pain, unspecified type Headaches Food intolerance Other specified intestinal malabsorption Brain fog Memory change Memory loss Nerve pain Neuralgia, neuritis, and radiculitis, unspecified Post-acute sequelae of COVID-19 (PASC) documented in this encounter [facility] note* Diagnosis Esophageal spasm- Primary Dyskinesia of esophagus documented [facility] [place] [facility]* Diagnosis Pain in joint, multiple sites- Primary Malaise and fatigue Other malaise and fatigue Fibromyalgia Mylagia and myositis, unspecified documented [facility] this encounter [facility] [place] [facility]* Diagnosis Pain in joint, multiple sites documented [facility] this [facility] [place] [facility]* Diagnosis Psychological and behavioral factors associated with disorders or diseases classified elsewhere- Primary 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 [facility] [place] [facility]* Diagnosis PCOS (polycystic ovarian syndrome)- Primary Polycystic ovaries Primary oligomenorrhea Scanty or infrequent menstruation Hyperandrogenism Other ovarian hyperfunction documented in this encounter [facility] note* Diagnosis POTS (postural orthostatic tachycardia syndrome)- Primary Tachycardia, unspecified Dizziness Dizziness and giddiness Post-acute sequelae of COVID-19 (PASC) [facility] [place] [facility]* Diagnosis Cognitive communication deficit- Primary Brain fog Memory change Memory loss Post-acute [facility] of COVID-19 [facility]PASC[facility] Diagnosis Moderate persistent asthma without complication- Primary Unspecified asthma Inducible laryngeal obstruction (ILO) Seasonal allergic rhinitis due to pollen Allergic rhinitis due to mold Allergic rhinitis due to animal hair and dander Allergic rhinitis due to animal (cat) (dog) hair and dander Allergic rhinitis due to dust mite Idiopathic urticaria [facility] [place] [facility]* Diagnosis Headaches- Primary Memory change Memory loss Brain fog Dizziness Dizziness and giddiness POTS (postural orthostatic tachycardia syndrome) Tachycardia, unspecified Palpitations Tachycardia Tachycardia, unspecified Shortness of breath Moderate persistent asthma without complication Unspecified asthma Chest pain, unspecified type Food intolerance Other specified intestinal malabsorption Nerve pain Neuralgia, neuritis, and radiculitis, unspecified Post-acute sequelae of COVID-19 (PASC) Vitamin D deficiency Unspecified vitamin D deficiency [facility]* Diagnosis Headaches- Primary Tachycardia Tachycardia, unspecified Chest pain, unspecified type Nerve pain Neuralgia, neuritis, and radiculitis, unspecified [facility]* Diagnosis 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 Dizziness Dizziness and giddiness documented [facility] [place] [facility]* Diagnosis Vitamin B12 deficiency- Primary Other B-complex deficiencies [facility]* Diagnosis Left upper quadrant abdominal pain- Primary Gastroesophageal reflux disease with esophagitis without hemorrhage Palpitations Fatigue, unspecified type Anxiety Anxiety state, unspecified [facility] [place] [facility]* Diagnosis Inducible laryngeal obstruction (ILO)- Primary Gastroesophageal reflux disease, unspecified whether esophagitis present Dyspnea on exertion Other dyspnea and respiratory abnormality [facility]* Diagnosis Palpitations- Primary POTS (postural orthostatic tachycardia syndrome) Tachycardia, unspecified [facility] [place] [facility]* Diagnosis Pain in joint, multiple sites- Primary Malaise and fatigue Other malaise and fatigue documented in this encounter [facility] note* Diagnosis Brain fog- Primary Dysphagia, unspecified type Memory change Memory loss Post-acute sequelae of COVID-19 (PASC) Cognitive communication deficit documented in this encounter [facility] note* Diagnosis 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 Dizziness Dizziness and giddiness POTS (postural orthostatic tachycardia syndrome) Tachycardia, unspecified documented in this encounter [facility] note* Diagnosis Headaches- Primary Tachycardia Tachycardia, unspecified Chest pain, unspecified type Nerve pain Neuralgia, neuritis, and radiculitis, unspecified documented in this encounter [facility] note* Diagnosis Brain fog- Primary Cognitive communication deficit Memory change Memory loss Post-acute sequelae of COVID-19 (PASC) documented in this encounter [facility] note* Diagnosis POTS (postural orthostatic tachycardia syndrome)- Primary Tachycardia, unspecified Syncope, unspecified syncope type documented in this encounter [facility] note* Diagnosis Shortness of breath- Primary Moderate persistent asthma without complication Unspecified asthma POTS (postural orthostatic tachycardia syndrome) Tachycardia, unspecified Dizziness Dizziness and giddiness Palpitations Tachycardia Tachycardia, unspecified Chest pain, unspecified type Headaches Food intolerance Other specified intestinal malabsorption Brain fog Memory change Memory loss Nerve pain Neuralgia, neuritis, and radiculitis, unspecified Post-acute sequelae of COVID-19 (PASC) documented in this encounter [facility] note* Diagnosis POTS (postural orthostatic tachycardia syndrome)- Primary Tachycardia, unspecified documented in this encounter [facility] note* Diagnosis Psychological and behavioral factors associated with disorders or diseases classified elsewhere- Primary 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 documented in this encounter [facility] note* Diagnosis Sinus tachycardia- Primary Other specified cardiac dysrhythmias Palpitations POTS (postural orthostatic tachycardia syndrome) Tachycardia, unspecified documented in this encounter [facility] note* Diagnosis Palpitations POTS (postural orthostatic tachycardia syndrome) Tachycardia, unspecified Sinus tachycardia Other specified cardiac dysrhythmias documented in this encounter [facility] note* Diagnosis Food intolerance- Primary Other specified intestinal malabsorption documented in this encounter [facility] note* Diagnosis Tachycardia- Primary Tachycardia, unspecified Persistent postural-perceptual dizziness POTS (postural orthostatic tachycardia syndrome) Tachycardia, unspecified Raynaud's disease without gangrene [facility] [place] [facility]* Diagnosis Sinus tachycardia- Primary Other specified cardiac dysrhythmias [facility] [place] [facility]* Diagnosis Tinnitus, bilateral- Primary Unspecified tinnitus Dizziness Dizziness and giddiness Post-acute sequelae of COVID-19 (PASC) Auditory complaints of left ear documented [facility] [place] [facility]* Diagnosis Bilateral impacted cerumen Impacted cerumen Tinnitus, bilateral Unspecified tinnitus Ear pressure, left Dysequilibrium [facility] [place] [facility]* Diagnosis POTS (postural orthostatic tachycardia syndrome)- Primary Tachycardia, unspecified Tachycardia Tachycardia, unspecified Burning sensation Disturbance of skin sensation [facility] [place] [facility]* Diagnosis Syncope, unspecified syncope type- Primary Dizziness and giddiness Migraine with aura and without status migrainosus, not intractable Migraine with aura, without mention of intractable migraine without mention of status migrainosus [facility] [place] [facility]* Diagnosis Inducible laryngeal obstruction (ILO)- Primary Gastroesophageal reflux disease, unspecified whether esophagitis present Dyspnea on exertion Other dyspnea and respiratory abnormality [facility] [place] [facility]* Diagnosis Brain fog- Primary Cognitive communication deficit Memory change Memory loss Post-acute sequelae of COVID-19 (PASC) documented [facility] [place] [facility]* Diagnosis Dizziness- Primary Dizziness and giddiness documented [facility] [place] [facility]* Diagnosis Esophageal spasm- Primary Dyskinesia of esophagus Interstitial cystitis (chronic) with hematuria- Primary documented [facility] [place] [facility]* Diagnosis Vitamin B12 deficiency- Primary Other B-complex deficiencies [facility] [place] [facility]* Diagnosis POTS (postural orthostatic tachycardia syndrome)- Primary Tachycardia, unspecified Palpitations Tachycardia Tachycardia, unspecified Brain fog Memory change Memory loss [facility] [place] [facility]* Diagnosis Psychiatric problem- Primary Unspecified nonpsychotic mental disorder [facility] [place] [facility]* Diagnosis Moderate persistent asthma without complication (HCC)- Primary Unspecified asthma Inducible laryngeal obstruction (ILO) Gastroesophageal reflux disease, unspecified whether esophagitis present SVT (supraventricular tachycardia) ([facility]) Other specified cardiac dysrhythmias Seasonal allergic rhinitis due to pollen Allergic rhinitis due to dust mite Allergic rhinitis due to animal hair and dander Allergic rhinitis due to animal (cat) (dog) hair and dander Allergic rhinitis due to mold Chronic idiopathic urticaria Idiopathic urticaria [facility] [place] [facility]* Diagnosis Hospital discharge follow-up- Primary Other follow-up examination POTS (postural orthostatic tachycardia syndrome) Tachycardia, unspecified Moderate persistent asthma without complication (HCC) Unspecified asthma Anxiety Anxiety state, unspecified Seasonal allergic rhinitis due to pollen Screening for depression Biceps tendonitis on left Bicipital tenosynovitis Chronic interstitial cystitis Gastroesophageal reflux disease without esophagitis Esophageal reflux Esophageal spasm Dyskinesia of esophagus documented [facility] [place] [facility]* Diagnosis POTS (postural orthostatic tachycardia syndrome)- Primary Tachycardia, unspecified Tachycardia Tachycardia, unspecified documented [facility] [place] [facility]* Diagnosis Tachycardia- Primary Tachycardia, unspecified documented [facility] this [facility] [place] [facility]* Diagnosis Dizziness and giddiness- Primary documented in this [facility] [place] [facility]* Diagnosis Burning sensation- Primary Disturbance of skin sensation documented [facility] this [facility] [place] [facility]* Diagnosis Anxiety Anxiety state, unspecified documented [facility] [place] [facility]* Diagnosis POTS (postural orthostatic tachycardia syndrome)- Primary Tachycardia, unspecified Flushing Chemical sensitivity Allergy, unspecified not elsewhere classified Bloating Flatulence, eructation, and gas pain Food intolerance Other specified intestinal malabsorption Nutritional deficiency Unspecified nutritional deficiency Personal history of COVID-19 Stress Other psychological or physical stress, not elsewhere classified documented [facility] encounter [facility] [place] [facility]* Diagnosis POTS (postural orthostatic tachycardia syndrome)- Primary Tachycardia, unspecified Bloating Flatulence, eructation, and gas pain Food intolerance Other specified intestinal malabsorption Nutritional counseling [facility] [place]* Diagnosis Anxiety Anxiety state, unspecified [facility] [place] [facility]* Diagnosis Anxiety Anxiety state, unspecified [facility] [place]* Diagnosis Irritable bowel syndrome with both constipation and diarrhea- Primary [facility] [place] [facility]* Diagnosis 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 Brain fog Memory change Memory loss Cognitive communication deficit Dysphagia, unspecified type [facility] [place] [facility]* Diagnosis Tachycardia- Primary Tachycardia, unspecified [facility] [place]* Diagnosis examination or test, unconfirmed- Primary Abnormal uterine bleeding (AUB) Prolonged menstruation Excessive or frequent menstruation Polycystic ovarian syndrome Polycystic ovaries Postural orthostatic tachycardia syndrome (POTS) documented [facility] [place]* Diagnosis Dizziness- Primary Dizziness and giddiness documented [facility] [place]* Diagnosis Abnormal uterine bleeding (AUB)- Primary Endometrial polyp Polyp of corpus uteri examination or test, unconfirmed documented [facility] [place]* Diagnosis POTS (postural orthostatic tachycardia syndrome)- Primary Tachycardia, unspecified Paresthesias Disturbance of skin sensation Arm pain, left Pain in limb documented [facility] [place]* Diagnosis POTS (postural orthostatic tachycardia syndrome)- Primary Tachycardia, unspecified Anxiety Anxiety state, unspecified Moderate persistent asthma without complication (HCC) Unspecified asthma Biceps tendonitis on left Bicipital tenosynovitis Breast mass in female Lump or mass in breast Esophageal spasm Dyskinesia of esophagus Polycystic ovarian syndrome Polycystic ovaries Seasonal allergic rhinitis due to pollen Tachycardia Tachycardia, unspecified documented [facility] [place]* Diagnosis Other disturbances of skin sensation- Primary Paresthesias Disturbance of skin sensation Arm pain, left Pain in limb documented [facility] [place]* Diagnosis POTS (postural orthostatic tachycardia syndrome)- Primary Tachycardia, unspecified Bloating Flatulence, eructation, and gas pain Food intolerance Other specified intestinal malabsorption Nutritional counseling documented [facility] this [facility] [place]* Diagnosis Mild intermittent asthma without complication (HCC)- Primary Unspecified asthma Disorder of vocal cords Other diseases of vocal cords Gastroesophageal reflux disease, unspecified whether esophagitis present documented [facility] this [facility] [place]* Diagnosis Endometrial polyp- Primary Polyp of corpus uteri PCOS (polycystic ovarian syndrome) Polycystic ovaries Abnormal uterine bleeding (AUB) [facility] [place] [facility]* Diagnosis Esophageal spasm Dyskinesia of esophagus documented [facility] this [facility] [place]* Diagnosis Flushing- Primary Elevated IgE level Other and unspecified nonspecific immunological findings Food intolerance Other specified intestinal malabsorption History of foreign travel Other specified conditions influencing health status Nutritional deficiency Unspecified nutritional deficiency Dizziness Dizziness and giddiness documented [facility] this [facility] [place]* Diagnosis Dizziness- Primary Dizziness and giddiness POTS (postural orthostatic tachycardia syndrome) Tachycardia, unspecified Post-acute sequelae of COVID-19 (PASC) documented in this encounter [facility] note* Diagnosis Tachycardia Tachycardia, unspecified POTS (postural orthostatic tachycardia syndrome) Tachycardia, unspecified documented in this encounter [facility] note* Diagnosis Diarrhea, unspecified type- Primary Irritable bowel syndrome with both constipation and diarrhea documented in this encounter [facility] note* Diagnosis Diarrhea, unspecified type documented in this encounter [facility] note* Diagnosis Dizziness and giddiness- Primary Post-acute sequelae of COVID-19 (PASC) Brain fog Memory change Memory loss Cognitive communication deficit Dysphagia, unspecified type documented in this encounter [facility] note* Diagnosis Tachycardia Tachycardia, unspecified POTS (postural orthostatic tachycardia syndrome) Tachycardia, unspecified documented in this encounter [facility] note* Diagnosis Dizziness- Primary Dizziness and giddiness documented in this encounter [facility] note* Diagnosis Encounter for person encountering health services- Primary documented in this encounter [facility] note* Diagnosis Polycystic ovarian syndrome- Primary Polycystic ovaries Abnormal uterine bleeding (AUB) [facility] [place]* Diagnosis Anxiety Anxiety state, unspecified documented in this encounter [facility] note* Diagnosis Breast mass in female Lump or mass in breast documented in this encounter [facility] note* Diagnosis PCOS (polycystic ovarian syndrome)- Primary Polycystic ovaries Primary oligomenorrhea Scanty or infrequent menstruation documented in this encounter [facility] note* Diagnosis Esophageal dysphagia- Primary Dysphagia, pharyngoesophageal phase Esophageal spasm Dyskinesia of esophagus Gastroesophageal reflux disease with esophagitis without hemorrhage documented in this encounter [facility] note* Diagnosis PCOS (polycystic ovarian syndrome)- Primary Polycystic ovaries documented in this encounter [facility] noteNo assessment information availableWashington [facility] Services Work Phone: Evaluation note* Diagnosis Encounter for person encountering health services- Primary [facility] [place]* Diagnosis POTS (postural orthostatic tachycardia syndrome)- Primary Tachycardia, unspecified Dizziness Dizziness and giddiness documented in this encounter [facility] note* Diagnosis Routine physical examination- Primary Routine general medical examination at a health care facility PCOS (polycystic ovarian syndrome) Polycystic ovaries POTS (postural orthostatic tachycardia syndrome) Tachycardia, unspecified Esophageal spasm Dyskinesia of esophagus Insulin resistance Dysmetabolic Syndrome X Chronic interstitial cystitis Family history of diabetes mellitus Family history of atrial fibrillation Family history of other cardiovascular diseases [facility] [place] [facility]* Diagnosis Tachycardia- Primary Tachycardia, unspecified POTS (postural orthostatic tachycardia syndrome) Tachycardia, unspecified documented in this encounter [facility] note* Diagnosis Palpitations POTS (postural orthostatic tachycardia syndrome) Tachycardia, unspecified Sinus tachycardia Other specified cardiac dysrhythmias documented in this encounter [facility] note* Diagnosis Cognitive communication deficit- Primary Dysphagia, unspecified type Dizziness and giddiness Post-acute sequelae of COVID-19 (PASC) Brain fog Memory change Memory loss documented [facility] this encounter [facility] [place]* Diagnosis POTS (postural orthostatic tachycardia syndrome)- Primary Tachycardia, unspecified Exercise counseling Tachycardia Tachycardia, unspecified Syncope, unspecified syncope type Brain fog Palpitations Sinus tachycardia Other specified cardiac dysrhythmias Physical deconditioning Debility, unspecified DU (dyspnea on exertion) Other dyspnea and respiratory abnormality Counseling on health promotion and disease prevention Other specified counseling Need for home exercise program documented in this encounter [facility] Discharge instructions* Instructions* Sandra Cain PA - 01/05/2022 You can take the prednisone at home if you continue to have symptoms You could also take 50 mg of Benadryl every 4-6 hours as needed * Attachments The following attachments cannot be sent through Care Everywhere. * Allergic Reaction (Russian) [facility] Phone: reason for referral (narrative)* - Pending Review Specialty Diagnoses / Procedures Referred By Barbi suero Referred To Contact Physical Therapy Diagnoses Dysmenorrhea Vaginal pain Procedures CONSULT TO PHYSICAL THERAPY Sanjana Chamberlain MD [address] [place] [address] Referral ID Status Reason Start Date Expiration Date V isits Requested Visits Authorized [id number] Pending Review 06/18/2022 09/16/[address] [facility] for referral (narrative)* Diagnostic Procedure Only (Routine) - Closed Specialty Diagnoses / Procedures [facility] To [facility] IM[facility] Diagnoses Chronic pelvic pain in female Procedures US FEMALE PELVIS TRANSVAG US TRANSVAGINAL Sanjana Chamberlain MD [address] [place] [phone] Us Imaging Referral ID Status Reason Start Date Expiration Date V isits Requested Visits Authorized [id number] Closed Auto-Generate d Referral 07/14/2022 08/13/2023 1 1 [facility] for referral (narrative)* Outpatient Procedure (Routine) - Authorized Specialty Diagnoses / Procedures [facility] Diagnoses Mild persistent asthma, unspecified whether complicated Procedures NITRIC OXIDE, EXHALED NITRIC OXIDE GAS DETERMINATION Ayaka Anne PA-C [address] [place] [address] [facility] [address] [place] [address] Referral ID Status Reason Start Date Expiration Date Visits Requested Visits Authorized [id number] Authorized Auto-Generat ed Referral 10/22/2022 11/21/2023 1 1 * Outpatient Procedure (Routine) - Authorized Specialty Diagnoses / Procedures [facility] To [facility] Diagnoses Mild persistent asthma, unspecified whether complicated Procedures SPIROMETRY - BASELINE AND POST DILATOR BRNCDILAT RSPSE SPMTRY PRE&POST-BRNCDILAT ADMN Ayaka Anne PA-C [address] [place] [address] [address] Referral ID Status Reason Start Date Expiration Date Visits Requested Visits Authorized [id number] Authorized Auto-Generat ed Referral 10/22/2022 11/21/2023 1 1 [facility] for referral (narrative)* Diagnostic Procedure Only (Routine) - Pending Review Specialty Diagnoses / Procedures Referred By Contac t Referred To Contact US IMAGING Diagnoses Secondary amenorrhea Procedures US FEMALE PELVIS TRANSVAG US TRANSVAGINAL Sanjana Chamberlain MD [address] [place] [phone] Us Imaging [id number] Referral ID Status Reason Start Date Expiration Date Visits Requested Visits Authorized [id number] Pending Review Auto-Generat ed Referral 08/11/2023 09/09/2024 1 1 * Physical Therapy (Routine) - Pending Review Specialty Diagnoses / Procedures Referred By Contac t Referred To Contact [facility] Diagnoses High-tone pelvic floor dysfunction Procedures CONSULT TO PHYSICAL THERAPY PHYSICAL THERAPY EVALUATION HIGH COMPLEX 45 [place] [address] [place] [address] [facility] [place] [id number] Referral ID Status Reason Start Date Expiration Date Visits Requested Visits Authorized [id number] Pending Review Auto-Generat ed Referral 08/11/2023 08/10/2024 1 1 [facility] for referral (narrative)* Consultation - Pending Review Specialty Diagnoses / Procedures Referred By Contac t Referred To Contact Family Medicine Diagnoses Acute suppurative otitis media of left ear without spontaneous rupture of tympanic membrane, recurrence not specified Procedures GA OFFICE/OUTPATIENT [facility] MDM 60 MINUTES Diann Andrew, 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 - HORSE SHOER [address] [facility] [address] [place] [address] [facility] [place] [address] Referral ID Status Reason Start Date Expiration Date V isits Requested Visits Authorized [id number] Pending Review 01/17/2024 01/16/2025 1 1 [facility] for referral (narrative)* Outpatient Procedure (Routine) - Authorized Specialty Diagnoses / Procedures Referred By Contac t Referred To [facility] Diagnoses Gastroesophageal reflux disease with esophagitis without hemorrhage Procedures EGD DIAGNOSTIC ESOPHAGOGASTRODUODENOSC OPY TRANSORAL DIAGNOSTIC Makenzie Lynn APRN.CNP [address] [facility] [place] [address] [address] Referral ID Status Reason Start Date Expiration Date Visits Requested Visits Authorized [id number] Authorized Auto-Generat ed Referral 04/17/2024 04/17/2025 1 1 [facility] for referral (narrative)* Outpatient Procedure (Routine) - Closed Specialty Diagnoses / Procedures Referred By Contac t Referred To [facility] Diagnoses Gastroesophageal reflux disease with esophagitis without hemorrhage Procedures EGD DIAGNOSTIC ESOPHAGOGASTRODUODENOSC OPY TRANSORAL DIAGNOSTIC Makenzie Lynn APRN.CNP [address] [address] [address] Referral ID Status Reason Start Date Expiration Date V isits Requested Visits Authorized [id number] Closed Auto-Generate d Referral 04/17/2024 04/17/2025 1 1 [facility] for referral (narrative)* Outpatient Procedure (Routine) - New Request Specialty Diagnoses / Procedures Referred By Contac t Referred To [facility] Diagnoses Dysphagia, unspecified type Procedures MANOMETRY ESOPHAGEAL ESOPHAGEAL MOTILITY STUDY W/INTERP&RPT Makenzie Lynn APRN.CNP [address] [facility] [place] [address] [facility] [address] [place] [address] Referral ID Status Reason Start Date Expiration Date Visits Requested Visits Authorized [id number] New Request Auto-Generat ed Referral 4 05/02/2025 1 1 * Diagnostic Procedure Only (Routine) - New Request Specialty Diagnoses / Procedures Referred By Contac t Referred To Contact XR IMAGING Diagnoses Dysphagia, unspecified type Procedures XR MODIFIED BARIUM SWALLOW W SPEECH THERAPY RADIOLOGIC EXAM SWALLOW FUNCTION CONTRAST STUDY Makenzie Lynn APRN.CNP [address] [place] [address] [place] [address] Referral ID Status Reason Start Date Expiration Date Visits Requested Visits Authorized [id number] New Request Auto-Generat ed Referral 4 06/01/2025 1 1 [facility] for referral (narrative)* Diagnostic Procedure Only (Routine) - Closed Specialty Diagnoses / Procedures Referred By Contac t Referred To Contact XR IMAGING Diagnoses Dysphagia, unspecified type Procedures XR MODIFIED BARIUM SWALLOW W SPEECH THERAPY RADIOLOGIC EXAM SWALLOW FUNCTION CONTRAST STUDY Makenzie Lynn APRN.CNP [address] [place] [address] [place] [address] Referral ID Status Reason Start Date Expiration Date V isits Requested Visits Authorized [id number] Closed Auto-Generate d Referral 05/02/2024 06/01/2025 1 1 [facility] for referral (narrative)* Diagnostic Procedure Only (Routine) - New Request Specialty Diagnoses / Procedures Referred By Contac t Referred To Contact XR IMAGING Diagnoses Abdominal bloating Procedures XR GI SMALL BOWEL FOLLOW-THRU RADIOLOGIC SMALL INTESTINE FOLLOW-THROUGH STUDY Makenzie Lynn APRN.CNP [address] [place] [address] [place] [address] Referral ID Status Reason Start Date Expiration Date Visits Requested Visits Authorized [id number] New Request Auto-Generat ed Referral 4 07/20/2025 1 1 * Diagnostic Procedure Only (Routine) - New Request Specialty Diagnoses / Procedures Referred By Contac t Referred To Contact XR IMAGING Diagnoses Abdominal bloating Procedures XR UPPER GI SINGLE CONTRAST RADIOLOGIC EXAM UPR GI TRC SINGLE CONTRAST STUDY Makenzie Lynn APRN.CNP [address] [address] [place] [address] Referral ID Status Reason Start Date Expiration Date Visits Requested Visits Authorized [id number] New Request Auto-Generat ed Referral 07/20/2025 1 1 [facility] for referral (narrative)* Diagnostic Procedure Only (Routine) - Closed Specialty Diagnoses / Procedures Referred By Contac t Referred To Contact XR IMAGING Diagnoses Abdominal bloating Procedures XR GI SMALL BOWEL FOLLOW-THRU RADIOLOGIC SMALL INTESTINE FOLLOW-THROUGH STUDY Makenzie Lynn APRN.CNP [address] [address] [place] [address] Referral ID Status Reason Start Date Expiration Date V isits Requested Visits Authorized [id number] Closed Auto-Generate d Referral 06/20/2024 07/20/2025 1 1 [facility] for referral (narrative)* Diagnostic Procedure Only (Routine) - Closed Specialty Diagnoses / Procedures Referred By Contac t Referred To Contact XR IMAGING Diagnoses Pain in joint, multiple sites Procedures XR HAND GENERAL 3V PA/LAT/OBL RIGHT RADEX HAND MINIMUM 3 VIEWS Nieves Smith MD [address] [facility] [address] [place] [address] [place] [address] Referral ID Status Reason Start Date Expiration Date V isits Requested Visits Authorized [id number] Closed Auto-Generate d Referral 07/13/2024 08/12/2025 1 1 * Diagnostic Procedure Only (Routine) - Closed Specialty Diagnoses / Procedures Referred By Contac t Referred To Contact XR IMAGING Diagnoses Pain in joint, multiple sites Procedures XR HAND GENERAL 3V PA/LAT/OBL LEFT RADEX HAND MINIMUM 3 VIEWS Nieves Smith MD [address] [place] [address] [place] [address] Referral ID Status Reason Start Date Expiration Date V isits Requested Visits Authorized [id number] Closed Auto-Generate d Referral 07/13/2024 08/12/2025 1 1 * Diagnostic Procedure Only (Routine) - Closed Specialty Diagnoses / Procedures Referred By Contac t Referred To Contact XR IMAGING Diagnoses Pain in joint, multiple sites Procedures XR SACROILIAC JOINTS 2V AP PELVIS/FERGUESON RADIOLOGIC EXAMINATION SACROILIAC JNTS <3 VIEWS Nieves Smith MD [address] [place] [address] [place] [address] Referral ID Status Reason Start Date Expiration Date V isits Requested Visits Authorized [id number] Closed Auto-Generate d Referral 07/13/2024 08/12/2025 1 1 * Diagnostic Procedure Only (Routine) - Closed Specialty Diagnoses / Procedures Referred By Contac t Referred To Contact XR IMAGING Diagnoses Pain in joint, multiple sites Procedures XR LUMBAR GENERAL 3V AP/LAT/L5-S1 RADEX SPINE LUMBOSACRAL 2/3 VIEWS Nieves Smith MD [address] [place] [address] [place] [address] Referral ID Status Reason Start Date Expiration Date V isits Requested Visits Authorized [id number] Closed Auto-Generate d Referral 07/13/2024 08/12/2025 1 1 * Diagnostic Procedure Only (Routine) - Closed Specialty Diagnoses / Procedures Referred By Contac t Referred To Contact XR IMAGING Diagnoses Pain in joint, multiple sites Procedures XR CERV GENERAL 2V AP/LAT RADEX SPINE CERVICAL 2 OR 3 VIEWS Nieves Smith MD [address] [place] [address] [place] [address] Referral ID Status Reason Start Date Expiration Date V isits Requested Visits Authorized [id number] Closed Auto-Generate d Referral 07/13/2024 08/12/2025 1 1 [facility] Diagnostic Procedure Only (Routine) - Closed Specialty Diagnoses / Procedures Referred By Contac t Referred To Contact XR IMAGING Diagnoses Pain in joint, multiple sites Procedures XR HAND GENERAL 3V PA/LAT/OBL RIGHT RADEX HAND MINIMUM 3 VIEWS Nieves Smith MD [address] [place] [address] [place] [address] Referral ID Status Reason Start Date Expiration Date V isits Requested Visits Authorized [id number] Closed Auto-Generate d Referral 07/13/2024 08/12/2025 1 1 * Diagnostic Procedure Only (Routine) - Closed Specialty Diagnoses / Procedures Referred By Contac t Referred To Contact XR IMAGING Diagnoses Pain in joint, multiple sites Procedures XR HAND GENERAL 3V PA/LAT/OBL LEFT RADEX HAND MINIMUM 3 VIEWS Nieves Smith MD [address] [place] [address] [place] [address] Referral ID Status Reason Start Date Expiration Date V isits Requested Visits Authorized [id number] Closed Auto-Generate d Referral 07/13/2024 08/12/2025 1 1 * Diagnostic Procedure Only (Routine) - Closed Specialty Diagnoses / Procedures Referred By Contac t Referred To Contact XR IMAGING Diagnoses Pain in joint, multiple sites Procedures XR SACROILIAC JOINTS 2V AP PELVIS/FERGUESON RADIOLOGIC EXAMINATION SACROILIAC JNTS <3 VIEWS Nieves Smith MD [address] [place] [address] [place] [address] Referral ID Status Reason Start Date Expiration Date V isits Requested Visits Authorized [id number] Closed Auto-Generate d Referral 07/13/2024 08/12/2025 1 1 * Diagnostic Procedure Only (Routine) - Closed Specialty Diagnoses / Procedures Referred By Contac t Referred To Contact XR IMAGING Diagnoses Pain in joint, multiple sites Procedures XR LUMBAR GENERAL 3V AP/LAT/L5-S1 RADEX SPINE LUMBOSACRAL 2/3 VIEWS Nieves Smith MD [address] [place] [address] [place] [address] Referral ID Status Reason Start Date Expiration Date V isits Requested Visits Authorized [id number] Closed Auto-Generate d Referral 07/13/2024 08/12/2025 1 1 * Diagnostic Procedure Only (Routine) - Closed Specialty Diagnoses / Procedures Referred By Contac t Referred To Contact XR IMAGING Diagnoses Pain in joint, multiple sites Procedures XR CERV GENERAL 2V AP/LAT RADEX SPINE CERVICAL 2 OR 3 VIEWS Nieves Smith MD [address] [place] [address] [place] [address] Referral ID Status Reason Start Date Expiration Date V isits Requested Visits Authorized [id number] Closed Auto-Generate d Referral 07/13/2024 08/12/2025 1 1 [facility] for referral (narrative)* Consult, Test, Treat (Routine) - New Request Specialty Diagnoses / Procedures Referred By Contac t Referred To Contact Procedures HEARING TEST/AUDIOGRAM COMPRE AUDIOMETRY THRESHOLD EVAL Rubi Funk, AUD [address] [facility] [place] [address] Phone: tel: fax: [facility] [address] [place] [address] Referral ID Status Reason Start Date Expiration Date Visits Requested Visits Authorized [id number] New Request Auto-Generat ed Referral 09/05/2024 09/06/2025 1 1 [facility] for referral (narrative)No reason for referral information availableWashington [facility] Services Work Phone: [facility] (narrative)* Transition of Care (Routine) - Authorized Specialty Diagnoses / Procedures Referred By Barbi suero Referred To Contact [facility] Yuan Schafer MD [address] [place] [address] Phone: tel: fax: [facility] [address] [address] Referral ID Status Reason Start Date Expiration Date Visits Requested Visits Authorized [id number] Authorized PCP Requested Referral 09/16/2025 12/15/2025 1 1 [facility] for visit Narrative* Diagnostic Procedure Only (Routine) - Closed Specialty Diagnoses / Procedures Referred By Barbi suero Referred To Contact US IMAGING Diagnoses Chronic pelvic pain in female Procedures US FEMALE PELVIS TRANSVAG US TRANSVAGINAL Sanjana Chamberlain MD [address] [place] [address] Us Imaging Referral ID Status Reason Start Date Expiration Date V isits Requested Visits Authorized [id number] Closed Auto-Generate d Referral 07/14/2022 08/13/2023 1 1 [facility] for visit Narrative* Outpatient Procedure (Routine) - Closed Specialty Diagnoses / Procedures Referred By Barbi suero Referred To Contact [facility] Diagnoses Gastroesophageal reflux disease with esophagitis without hemorrhage Procedures EGD DIAGNOSTIC ESOPHAGOGASTRODUODENOSC OPY TRANSORAL DIAGNOSTIC Pack, MARCO Banegas.HORSE SHOER [address] [place] [address] [facility] [address] [place] [address] Referral ID Status Reason Start Date Expiration Date V isits Requested Visits Authorized [id number] Closed Auto-Generate d Referral 04/17/2024 04/17/2025 1 1 [facility] for visit Narrative* Diagnostic Procedure Only (Routine) - Closed Specialty Diagnoses / Procedures Referred By Contac t Referred To Contact XR IMAGING Diagnoses Dysphagia, unspecified type Procedures XR MODIFIED BARIUM SWALLOW W SPEECH THERAPY RADIOLOGIC EXAM SWALLOW FUNCTION CONTRAST STUDY Pack, MARCO Banegas.HORSE SHOER [address] [place] [address] [place] [address] Referral ID Status Reason Start Date Expiration Date V isits Requested Visits Authorized [id number] Closed Auto-Generate d Referral 05/02/2024 06/01/2025 1 1 [facility] for visit Narrative* Diagnostic Procedure Only (Routine) - Closed Specialty Diagnoses / Procedures Referred By Contac t Referred To Contact XR IMAGING Diagnoses Abdominal bloating Procedures XR UPPER GI SINGLE CONTRAST RADIOLOGIC EXAM UPR GI TRC SINGLE CONTRAST STUDY Pack, MARCO Banegas.HORSE SHOER [address] [place] [address] [place] [address] Referral ID Status Reason Start Date Expiration Date V isits Requested Visits Authorized [id number] Closed Auto-Generate d Referral 06/27/2024 07/10/2024 1 1 [facility] for visit Narrative* Diagnostic Procedure Only (Routine) - Closed Specialty Diagnoses / Procedures Referred By Contac t Referred To Contact XR IMAGING Diagnoses Pain in joint, multiple sites Procedures XR HAND GENERAL 3V PA/LAT/OBL RIGHT RADEX HAND MINIMUM 3 VIEWS Nieves Smith MD [address] [facility] [address] [place] [address] [place] [address] Referral ID Status Reason Start Date Expiration Date V isits Requested Visits Authorized [id number] Closed Auto-Generate d Referral 07/13/2024 08/12/2025 1 1 [facility] for visit Narrative* Consult, Test, Treat (Routine) - Closed Specialty Diagnoses / Procedures Referred By Contac t Referred To Contact Cardiology Diagnoses Palpitations POTS (postural orthostatic tachycardia syndrome) Procedures CONSULT TO CARDIOLOGY OFFICE/OUTPATIENT [facility] 60 MINUTES Daniel Guerrero, [address] [place] [address] Phone: tel: fax: Yuan Schafer MD [address] [place] [address] Phone: tel: fax: Referral ID Status Reason Start Date Expiration Date V isits Requested Visits Authorized [id number] Closed PCP Requested Referral 08/07/2024 08/07/2025 1 1 [facility] for visit Narrative* Consult, Test, Treat (Routine) - Closed Specialty Diagnoses / Procedures Referred By Barbi t Referred To Contact Neurology Diagnoses Tachycardia POTS (postural orthostatic tachycardia syndrome) Raynaud's disease without gangrene Procedures CONSULT TO NEUROLOGY OFFICE/OUTPATIENT [facility] 60 [place] [address] [place] [address] Phone: tel: fax: Referral ID Status Reason Start Date Expiration Date V isits Requested Visits Authorized [id number] Closed PCP Requested Referral 09/03/2024 09/03/2025 1 1 [facility] for visit Narrative* Speech Therapy (Routine) - Authorized Specialty Diagnoses / Procedures Referred By Barbi suero Referred To Contact Speech-Language Pathologist / SPEECH LANGUAGE PATHOLOGY Diagnoses CONSULT TO SPEECH THERAPY 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] Fely Garcia, 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.COMPUTER OPERATIONS MANAGER in [facility] MCPlease schedule with Sharlene Means or other Procedures NEW [facility] PATIENT Fely Garcia APRN.COMPUTER OPERATIONS MANAGER [address] [place] [address] Phone: tel: fax: Sharlene Means, PhD, CCC-CRYOLITE RECOVERY OPERATOR [address] [place] [address] Phone: tel: Referral ID Status Reason Start Date Expiration Date V isits Requested Visits Authorized [id number] Authorized 07/13/2024 07/10/2025 60 60 [facility] for visit Narrative* Diagnostic Procedure Only (Routine) - Closed Specialty Diagnoses / Procedures Referred By Barbi suero Referred To Contact XR IMAGING Diagnoses Diarrhea, unspecified type Procedures XR ABDOMEN 2V ROUTINE SUPINE W UPRIGHT/DECUB/CTL RADIOLOGIC EXAM ABDOMEN 2 VIEWS Shane, MARCO Banegas.HORSE SHOER [address] [place] [address] Phone: tel: fax: [place] [address] Referral ID Status Reason Start Date Expiration Date V isits Requested Visits Authorized [id number] Closed Auto-Generate d Referral 01/03/2025 02/02/2026 1 1 [facility] for visit Narrative* Diagnostic Procedure Only (Routine) - Closed Specialty Diagnoses / Procedures Referred By Barbi suero Referred To Contact BR IMAGING Diagnoses Breast mass in female Procedures US BREAST COMPLETE LEFT US BREAST UNI REAL TIME [place] [address] [place] [address] Phone: tel: fax: BR IMAGING [address] [place] [address] Referral ID Status Reason Start Date Expiration Date V isits Requested Visits Authorized [id number] Closed Auto-Generate d Referral 12/06/2024 01/05/2026 1 1 [facility] for visit Narrative* Transition of Care (Routine) - Closed Specialty Diagnoses / Procedures Referred By Barbi suero Referred To Contact [facility] Diagnoses Palpitations POTS (postural orthostatic tachycardia syndrome) Sinus tachycardia Yuan Schafer MD [address] [place] [address] Phone: tel: fax: [facility] [address] [place] [id number] Referral ID Status Reason Start Date Expiration Date V isits Requested Visits Authorized [id number] Closed PCP Requested Referral 02/27/2025 05/28/2025 1 1 [facility] Summary Purpose Family History No Family History Records Found Relationship Condition Age at Onset Recorded Date/T darrell grandfather Malignant neoplasm Unknown Alcoholism Unknown grandmother Diabetes mellitus Unknown Cardiac disease Unknown mother Hypertension Unknown father Gastroesophageal reflux disease Unknown Advance Directives No Advanced Directives Records Found Date Activated Date Inactivated Comments 10/03/2024 4:31 PM 10/07/2024 4:21 PM Question Answer Comments Full Code Order Discussed With: Patient Date Activated Date Inactivated Comments 10/17/2022 4:02 AM 10/18/2022 5:28 PM Question Answer Comments Full Code Order Discussed With: Patient Latest Code Status on File Code Status Date Activated Date Inactivated Comments Full Code 10/13/2020 12:45 PM Documents on File Type Date Recorded 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 Advance Directive(s) 08/31/2020 10:24 PM Latest Code Status on File Code Status Date Activated Date Inactivated Comments Full Code 10/13/2020 12:45 PM 10/13/2020 5:23 PM Latest Code Status on File Code Status Date Activated Date Inactivated Comments Full Code 10/17/2022 4:02 AM 10/18/2022 5:28 PM Full Code Order Discussed With: Patient Latest Code Status on File Code Status Date Activated Date Inactivated Comments Full Code 10/17/2022 4:02 AM 10/18/2022 5:28 PM Latest Code Status on File Code Status Date Activated Date Inactivated Comments Full Code 10/17/2022 4:02 AM 10/18/2022 5:28 PM Question Answer Comments Full Code Order Discussed With: Patient Latest Code Status on File Code Status Date Activated Date Inactivated Comments Full Code 10/17/2022 4:02 AM 10/18/2022 5:28 PM Question Answer Comments Full Code Order Discussed With: Patient Date Activated Date Inactivated Comments 10/17/2022 4:02 AM 10/18/2022 5:28 PM Date Activated Date Inactivated Comments 10/17/2022 4:02 AM 10/18/2022 5:28 PM Question Answer Comments Full Code Order Discussed With: Patient Date Activated Date Inactivated Comments 10/03/2024 4:31 PM 10/07/2024 4:21 PM Date Activated Date Inactivated Comments 10/17/2022 4:02 AM 10/18/2022 5:28 PM Question Answer Comments Full Code Order Discussed With: Patient Instructions * Patient Instructions - Earline Hutchins CNP - 07/14/2018 4:21 PM EST Go directly to the [facility] for evaluation and treatment. in this encounter History of Present Illness * Earline Hutchins CNP - 07/14/2018 3:59 PM EST Formatting of this note may be different from the original. PATIENT NAME: [facility] [address] [facility] [address] : 1995 DATE OF VISIT: 07/14/2018 #: [id number] PROVIDER: Earline Hutchins CNP Chief Complaint Patient presents with Facial Swelling Eye pain and swelling started Tuesday night. Worsened Tuesday morning. Eye swollen shut. Then glands on right side got swollen with pain throughout right side of face. SUBJECTIVE 22 y.o. female presents Facial Swelling (Eye pain and swelling started Tuesday night. Worsened Tuesday. Eye swollen shut. Then glands on right side got swollen with pain throughout right side of face. ) Client presents with infection and swelling of the right eyelid. States saw access specialist yesterday and was given medication and told to come to . States she has swollen lymph nodes. Client complains of pain and worsening of the redness and swelling. She says she took 2 doses of antibiotic yesterday and one today. [facility]. Eye Problem The right eye is affected. This is a new problem. The current episode started in the past 7 days. The problem occurs constantly. The problem has been gradually worsening. There was no injury mechanism. The pain is at a severity of 9/10. The pain is severe. There is no known exposure to pink eye. Associated symptoms include eye redness and photophobia. Pertinent negatives include no blurred vision, eye discharge, double vision, fever, itching, nausea or vomiting. Treatments tried: oral antibiotic and eye med. The treatment provided no relief. MEDICAL ISSUES History reviewed. No pertinent past medical history. There is no problem list on file for this patient. SOCIAL HISTORY Social History Social History Marital status: Single Spouse name: N/A Number of children: N/A Years of education: N/A Occupational History Not on file. Social History Main Topics Smoking status: Never Smoker Smokeless tobacco: Never Used Alcohol use No Drug use: No Sexual activity: Not on file Other Topics Concern Not on file Social History Narrative No narrative on file FAMILY HISTORY No family history on file. REVIEW OF SYSTEMS Review of Systems Constitutional: Negative for appetite change, chills, diaphoresis, fatigue and fever. HENT: Positive for ear pain, facial swelling and sinus pressure. Negative for congestion, hearing loss and rhinorrhea. Eyes: Positive for photophobia and redness. Negative for blurred vision, double vision, pain, discharge, itching and visual disturbance. Respiratory: Negative for cough. Gastrointestinal: Negative for diarrhea, nausea and vomiting. Skin: Skin red and swollen around the eye. Neurological: Positive for headaches. MEDICATIONS PRIOR TO VISIT No current outpatient prescriptions on file prior to visit. No current facility-administered medications on file prior to visit. ALLERGIES/INTOLERANCES No Known Allergies OBJECTIVE BP 126/79 (BP Location: Left arm) Pulse 93 Temp 98.5 F (36.9 C) (Oral) Resp 16 Ht 5' Wt 47.2 kg (104 lb) LMP 06/30/2018 (Within Days) SpO2 98% BMI 20.31 kg/m Physical Exam Constitutional: She is oriented to person, place, and time. She appears well- developed and well-nourished. HENT: Head: Normocephalic and atraumatic. Eyes: Pupils are equal, round, and reactive to light. EOM are normal. Right eye exhibits no discharge. Left eye exhibits no discharge. Neck: Neck supple. Client with tender lymph node right preauricular and right submandibular. Cardiovascular: Normal rate and regular rhythm. Pulmonary/Chest: Effort normal and breath sounds normal. Lymphadenopathy: She has no cervical adenopathy. Neurological: She is alert and oriented to person, place, and time. Skin: Skin is warm and dry. Right eyelid red, swollen and tender. Skin under the eye also reddened. Forced eye open to check ocular movement and tracking. Psychiatric: She has a normal mood and affect. PROCEDURE Procedures Results No results found for this or any previous visit (from the past 168 hour(s)). ASSESSMENT/PLAN (expressed as patient instructions): SNOMED CT(R) 1. Cellulitis of right eyelid CELLULITIS OF RIGHT EYELID Return if symptoms worsen or fail to improve. ADDITIONAL CLINICAL COMMENTS No notes on file ORDERS PLACED THIS VISIT No orders of the defined types were placed in this encounter. MEDICATION LIST AT END OF VISIT Current Outpatient Prescriptions Medication Sig Dispense Refill doxycycline hyclate (VIBRAMYCIN) 100 MG capsule Take 100 mg by mouth 2 (two) times a day . saynspmt-kyylaoyfl-rjljteuyccspa (MAXITROL) 3.5mg/mL-10,000 unit/mL-0.1 % ophthalmic suspension 1 drop 4 (four) times a day . pentosan polysulfate (ELMIRON) 100 mg capsule Take 100 mg by mouth 3 (three) times a day before meals . No current facility-administered medications for this visit. * Samia Louis, TECHNOLOGIST - 07/14/2018 3:45 PM EST Eye pain and swelling started Tuesday night. Worsened Tuesday morning. Then glands on right side got swollen with pain throughout right side of face. Saw doctor and they gave her an ointment. He suggested she goto Urgent Care because he didn't know what it was. Also c/o teeth pain and had a cold sore on right side starting 1 week ago may not be related. Eye Doc prescribed eye solution and doxycycline. in this encounter* Bandar Sotelo RN - 10/13/2020 2:32 PM EDT 1431 Pt in Post-op bay 3. Bite Block removed. VS stable. Patient responsive. documented in this encounter Assessments Diagnosis Cellulitis of right eyelid- Primary Diagnosis Epigastric pain- Primary Abdominal pain, epigastric Abdominal pain, unspecified abdominal location Esophageal dysphagia Dysphagia, pharyngoesophageal phase Diagnosis Abdominal pain, unspecified abdominal location Change in bowel habits Other symptoms involving digestive system Nausea and vomiting, intractability of vomiting not specified, unspecified vomiting type Reason for Referral Status Reason Specialty Diagnoses / Procedures Referred By Contact Referred To Contact Open Specialty Services Required Gastroenterology Diagnoses Esophageal dysphagia Francesca Sahu DO [address] [place] [address] Afl Spi Gastro Ach [address] [facility] [address] [place] [address] Scheduling Instructions [facility] [address] [facility], [address] [place]. [address] Fax: Specialty Diagnoses / Procedures Referred By Contac t Referred To Contact Allergy Diagnoses Elevated IgE level History of environmental allergies Mild persistent asthma, unspecified whether complicated Procedures CONSULT TO ALLERGY/IMMUNOLOGY OFFICE/OUTPATIENT [facility] 60-74 MINUTES Hannah Grimes APRN.HORSE SHOER [address] [place] [address] Referral ID Status Reason Start Date Expiration Date Visits Requested Visits Authorized [id number] Authorized PCP Requested Referral 12/19/2022 11/18/2023 1 1 Specialty Diagnoses / Procedures Referred By Contac t Referred To Contact MR IMAGING Diagnoses Syncope and collapse Procedures MRI BRAIN WO/W IVCON MRI BRAIN BRAIN STEM W/O W/CONTRAST MATERIAL Daniel Guerrero, DO 1 [facility], [address]nd [place] [address] Mr Imaging Referral ID Status Reason Start Date Expiration Date Visits Requested Visits Authorized [id number] Pending Review Auto-Generat ed Referral 02/10/2023 03/11/2024 1 1 Specialty Diagnoses / Procedures Referred By Contac t Referred To Contact Neurology Diagnoses Migraine with aura and without status migrainosus, not intractable Syncope, unspecified syncope type Dizziness Procedures CONSULT TO NEUROLOGY OFFICE/OUTPATIENT [facility] 60 MINUTES Boubacar Sky, MARCO.HORSE SHOER [address] [place] [address] Referral ID Status Reason Start Date Expiration Date Visits Requested Visits Authorized [id number] Authorized PCP Requested Referral 02/16/2024 02/15/2025 1 1 Specialty Diagnoses / Procedures Referred By Contac t Referred To Contact Allergy Diagnoses Multiple food allergies Procedures CONSULT TO ALLERGY/IMMUNOLOGY OFFICE/OUTPATIENT [facility] 60 MINUTES Boubacar Sky, MARCO.HORSE SHOER [address] [place] [address] Referral ID Status Reason Start Date Expiration Date Visits Requested Visits Authorized [id number] Authorized PCP Requested Referral 02/16/2024 02/15/2025 1 1 Specialty Diagnoses / Procedures Referred By Contac t Referred To Contact Cardiology Diagnoses Abnormal ECG Procedures Exercise stress test Amadou Dunlap APRN - HORSE SHOER [address] [address] [address] [facility] [address] [place] [address] Referral ID Status Reason Start Date Expiration Date V isits Requested Visits Authorized [id number] Authorized 03/01/2024 02/24/2025 1 1 Referral ID Status Reason Start Date Expiration Date Visits Re quested Visits Authorized [id number] Closed 03/01/2024 02/24/2025 1 1 Specialty Diagnoses / Procedures Referred By Contac t Referred To Contact Physical Therapy Diagnoses POTS (postural orthostatic tachycardia syndrome) Procedures GA OFFICE/OUTPATIENT [facility] 60 MINUTES Jessica Bird APRN - HORSE SHOER [address] [place] [address] Ach [facility] [address] [place] [address] Referral ID Status Reason Start Date Expiration Date Visits Requested Visits Authorized [id number] Pending Review Eval and Treat 03/15/2024 03/10/2025 99 99 Specialty Diagnoses / Procedures Referred By Contac t Referred To Contact Allergy Diagnoses Multiple environmental allergies Procedures CONSULT TO ALLERGY/IMMUNOLOGY OFFICE/OUTPATIENT [facility] 60 MINUTES Nicola Teixeira APRN.HORSE SHOER [address] [employer] [address] [place] [id number] Referral ID Status Reason Start Date Expiration Date Visits Requested Visits Authorized [id number] Authorized PCP Requested Referral 03/23/2024 03/23/2025 1 1 Specialty Diagnoses / Procedures Referred By Contac t Referred To Contact [facility] Diagnoses Moderate persistent asthma without complication Procedures NITRIC OXIDE, EXHALED NITRIC OXIDE GAS DETERMINATION Nicola Teixeira, MARCO.HORSE SHOER [address] [employer] [address] [place] [address] Res[facility] [place] [address] Referral ID Status Reason Start Date Expiration Date Visits Requested Visits Authorized [id number] Authorized Auto-Generat ed Referral 03/23/2024 04/22/2025 1 1 Specialty Diagnoses / Procedures Referred By Contac t Referred To Contact [facility] Diagnoses Moderate persistent asthma without complication Procedures SPIROMETRY WITH DILATOR IF OBSTRUCTED BRNCDILAT RSPSE SPMTRY PRE&POST-BRNCDILAT ADMN Nicola Teixeira 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.HORSE SHOER [address] [facility] [address] [place] [address] [facility] [address] [place] [address] Referral ID Status Reason Start Date Expiration Date Visits Requested Visits Authorized [id number] Authorized Auto-Generat ed Referral 03/23/2024 04/22/2025 1 1 Specialty Diagnoses / Procedures Referred By Contac t Referred To Contact Gastroenterology Diagnoses Gastroesophageal reflux disease with esophagitis without hemorrhage Procedures CONSULT TO GASTROENTEROLOGY OFFICE/OUTPATIENT [facility] 60 MINUTES Boubacar Sky, 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.HORSE SHOER [address] [place] [address] Referral ID Status Reason Start Date Expiration Date Visits Requested Visits Authorized [id number] Authorized PCP Requested Referral 03/29/2024 03/29/2025 1 1 Specialty Diagnoses / Procedures Referred By Contac t Referred To Contact MR IMAGING Diagnoses Other intractable trigeminal autonomic cephalgia (TAC) Procedures MRI BRAIN WO IVCON MRI BRAIN BRAIN STEM W/[place] [address] [place] [id number] Mr Imaging [facility] Referral ID Status Reason Start Date Expiration Date Visits Requested Visits Authorized [id number] Authorized Auto-Generat ed Referral 04/03/2024 05/03/2025 1 1 Specialty Diagnoses / Procedures Referred By Contac t Referred To Contact [facility] Diagnoses Inducible laryngeal obstruction (ILO) Procedures CONSULT TO SPEECH THERAPY OFFICE/OUTPATIENT [facility] 60 MINUTES Fely Garcia, MARCO.COMPUTER OPERATIONS MANAGER [address] [place] [address] [facility] [address] [place] [address] Referral ID Status Reason Start Date Expiration Date Visits Requested Visits Authorized [id number] Pending Review Auto-Generat ed Referral 04/25/2025 1 1 Referral ID Status Reason Start Date Expiration Date V isits Requested Visits Authorized [id number] Closed Auto-Generate d Referral 04/03/2024 05/03/2025 1 1 Specialty Diagnoses / Procedures Referred By Contac t Referred To Contact Psychology Diagnoses Vertigo of central origin Procedures CONSULT TO PSYCHOLOGY OFFICE/OUTPATIENT [facility] [address] [place] [address] [place] [address] Referral ID Status Reason Start Date Expiration Date Visits Requested Visits Authorized [id number] Pending Review PCP Requested Referral 05/15/2024 05/15/2025 1 1 Specialty Diagnoses / Procedures Referred By Contac t Referred To Contact CT IMAGING Diagnoses Chest pain, unspecified type Procedures CTA CORONARY W IVCON CTA HRT CORNRY ART/BYPASS GRFTS CONTRST 3D POST Ramses Pyle MD [address] [place] [address] Ct Imaging [place] [address] Referral ID Status Reason Start Date Expiration Date V isits Requested Visits Authorized [id number] Closed Auto-Generate d Referral 05/28/2024 06/27/2025 1 1 Specialty Diagnoses / Procedures Referred By Contac t Referred To Contact Diagnoses Esophageal spasm Procedures CONSULT TO GI SWALLOWING CENTER OFFICE/OUTPATIENT [facility] 60 MINUTES Makenzie Lynn APRN.[facility] [address] [place] [address] Referral ID Status Reason Start Date Expiration Date Visits Requested Visits Authorized [id number] Authorized PCP Requested Referral 06/19/2025 1 1 Specialty Diagnoses / Procedures Referred By Contac t Referred To Contact [facility] Diagnoses Brain fog Memory change Post-acute sequelae of COVID-19 (PASC) Procedures CONSULT TO SPEECH THERAPY OFFICE/OUTPATIENT [facility] 60 MINUTES Martha Hassan PA-C [address] [place] [address] [facility] [address] [address] Referral ID Status Reason Start Date Expiration Date Visits Requested Visits Authorized [id number] Pending Review Auto-Generat ed Referral 4 07/09/2025 1 1 Specialty Diagnoses / Procedures Referred By Contac t Referred To Contact Diagnoses Shortness of breath Moderate persistent asthma without complication POTS (postural orthostatic tachycardia syndrome) Dizziness Palpitations Tachycardia Chest pain, unspecified type Headaches Food intolerance Brain fog Memory change Nerve pain Post-acute sequelae of COVID-19 (PASC) Procedures CONSULT TO WELLNESS PHYSICIAN OFFICE/OUTPATIENT [facility] 60 MINUTES Martha Hassan PA-C [address] [id number] Referral ID Status Reason Start Date Expiration Date Visits Requested Visits Authorized [id number] Authorized PCP Requested Referral 4 07/09/2025 1 1 Specialty Diagnoses / Procedures Referred By Contac t Referred To Contact Ent - Otolaryngology Diagnoses Dizziness Post-acute sequelae of COVID-19 (PASC) Procedures CONSULT TO ENT OFFICE/OUTPATIENT [facility] 60 MINUTES Martha Hassan PA-C [address] [id number] Referral ID Status Reason Start Date Expiration Date Visits Requested Visits Authorized [id number] Authorized PCP Requested Referral 4 07/09/2025 1 1 Specialty Diagnoses / Procedures Referred By Contac t Referred To Contact Neurology Diagnoses Headaches Post-acute sequelae of COVID-19 (PASC) Procedures CONSULT TO NEUROLOGY OFFICE/OUTPATIENT [facility] 60 MINUTES Martha Hassan PA-C [address] [address] Referral ID Status Reason Start Date Expiration Date Visits Requested Visits Authorized [id number] Authorized PCP Requested Referral 4 07/09/2025 1 1 Specialty Diagnoses / Procedures Referred By Contac t Referred To Contact [facility] Diagnoses Dizziness Post-acute sequelae of COVID-19 (PASC) Procedures CONSULT TO PHYSICAL THERAPY PHYSICAL THERAPY EVALUATION HIGH COMPLEX 45 MINS Martha Hassan PA-C [address] [place] [address] [facility] [address] [place] [address] Referral ID Status Reason Start Date Expiration Date Visits Requested Visits Authorized [id number] Pending Review Auto-Generat ed Referral 07/19/2024 07/19/2025 1 1 Specialty Diagnoses / Procedures Referred By Contac t Referred To Contact [facility] Diagnoses Tachycardia Chest pain, unspecified type Headaches Nerve pain Procedures CONSULT FOR ACUPUNCTURE ACUPUNCTURE 1/> NDLS W/ELEC STIMJ 1ST 15 MIN ACUPUNCTURE 1/> NDLS W/ESTIM EACH ADDL 15 MIN Apple Grady PA-C [address] [place] [address] [facility] [address] [address] Referral ID Status Reason Start Date Expiration Date Visits Requested Visits Authorized [id number] Authorized PCP Requested Referral 07/11/2024 07/10/2025 25 25 Specialty Diagnoses / Procedures Referred By Contac t Referred To Contact Cardiology Diagnoses Palpitations POTS (postural orthostatic tachycardia syndrome) Procedures CONSULT TO CARDIOLOGY OFFICE/OUTPATIENT [facility] 60 MINUTES Daniel Guerrero, [address] [place] [address] Yuan Schafer MD [address] [place], [place] [id number] Referral ID Status Reason Start Date Expiration Date Visits Requested Visits Authorized [id number] Authorized PCP Requested Referral 08/07/2024 08/07/2025 1 1 Discharge Instructions * Attachments The following attachments cannot be sent through Care Everywhere. * Abdominal Pain (Russian) * EGD (Upper Endoscopy): Pre-op (Russian) documented in this encounter* Instructions* Bandar Sotelo RN - 10/13/2020 Upper GI Endoscopy: What to expect at home ACTIVITY: DO NOT DRIVE, OPERATE MACHINERY, OR DRINK ANY ALCOHOL TODAY. Avoid making critical decisions, signing legal documents, or performing any activity that requires alertness for the rest of the day. You may be bloated or have gas pains since air was introduced into the stomach for the procedure. You may need to pass the gas throughout the day. You may experience a mild sore throat. You may use an ouwu-psy-eomqlve chloraseptic spray, gargle with warm salt water, or use throat lozenges. Notify your physician if this feeling lasts more than 48 hours. Rest the remainder of the day. You may resume normal activity tomorrow. You may return to work tomorrow. DIET: You may resume a normal diet unless notified or recommended by your physician. You may be eager to eat a large meal after fasting, but it is a good idea to start with light mealsand ease into solid foods the first day. (*) If your stomach is upset, try clear liquids and bland, low-fat foods like plain toast or rice. Drink plenty of fluids for the first 24 hours (unless your physician states otherwise). MEDICATION: Resume your normal home medications unless notified or recommended by your physician. If you take blood thinners (such as Coumadin, Eliquis, Plavix, Aspirin, etc.) or anti-inflammatory medications (Advil, Motrin, Aleve, etc.), ask your physician when you may resume these medications. FOLLOW-UP APPOINTMENT: Follow up with or call your physician as needed. When to call for help: Call your doctor IMMEDIATELY or seek medical care if you experience: Severe pain or vomiting Coughing up more than a teaspoon of blood You pass a large amount of tar-like stools Your belly is swollen and firm with severe pain A fever greater than 101 degrees Redness or swelling of arm from the IV site for more than 48 hours Sudden onset of chest pain or shortness of breath If you become extremely dizzy or pass out (lose consciousness) IF YOU ARE UNABLE TO REACH YOUR PHYSICIAN GO TO NEAREST EMERGENCY DEPARTMENT documented in this encounter Chief Complaint and Reason for Visit Chief Complaint Admit Date ABDOMINAL DISCOMFORT CONSTIPATION DIARRH EA February 26, 2025 8:08am Chief Complaint Admit Date ABDOMINAL DISCOMFORT CONSTIPATION DIARRH EA February 26, 2025 8:08am PILL CAM March 18, 2025 8:55am Reason for Visit Admit Date Abdominal pain February 26, 2025 8: 08am Bloating February 26, 2025 8: 08am Additional Source Comments INFORMATION SOURCE (unrecogn ized section and content) DATE CREATED AUTHOR 01/03/2018 Dexter Arnett [facility] DATE CREATED AUTHOR AUTHOR'S ORGANIZ ATION 07/17/2018 [facility] DATE CREATED AUTHOR AUTHOR'S ORGANIZ ATION 06/23/2020 [facility] DATE CREATED AUTHOR AUTHOR'S ORGANIZ ATION 10/18/2020 [facility] DATE CREATED AUTHOR AUTHOR'S ORGANIZ ATION 11/20/2021 [facility] DATE CREATED AUTHOR AUTHOR'S ORGANIZ ATION 01/05/2022 [facility] DATE CREATED AUTHOR AUTHOR'S ORGANIZ ATION 02/16/2023 [facility] ([place] DATE CREATED AUTHOR AUTHOR'S ORGANIZ ATION 05/07/2023 [facility] DATE CREATED AUTHOR AUTHOR'S ORGANIZ ATION 05/02/2024 [facility] DATE CREATED AUTHOR AUTHOR'S ORGANIZ ATION 03/16/2025 [facility] DATE CREATED AUTHOR AUTHOR'S ORGANIZ ATION 04/01/2025 [facility] DATE CREATED AUTHOR AUTHOR'S ORGANIZ ATION 04/17/2025 [facility] DATE CREATED AUTHOR AUTHOR'S ORGANIZ ATION 05/02/2025 [facility] Reason for Visit (unrecogniz ed section and content) Reason Comments PT Progress Note Specialty Diagnoses / Procedures Referred By Contac t Referred To Contact [facility] Diagnoses Dizziness Post-acute sequelae of COVID-19 (PASC) Procedures CONSULT TO PHYSICAL THERAPY PHYSICAL THERAPY EVALUATION HIGH COMPLEX 45 MINS Martha Hassan PA-C [address] [place] [address] Phone: tel: fax: [facility] [address] [place] [address] Referral ID Status Reason Start Date Expiration Date Visits Requested Visits Authorized [id number] Authorized Auto-Generat ed Referral 07/13/2024 07/10/2025 60 60 Reason Comments New Patient Specialty Diagnoses / Procedures Referred By Contac t Referred To Contact Diagnoses POTS (postural orthostatic tachycardia syndrome) Palpitations Tachycardia Brain fog Memory change Procedures CONSULT TO FUNCTIONAL MEDICINE OFFICE/OUTPATIENT [facility] 60 MINUTES Apple Grady PA-C [address] [place] [address] Phone: tel: fax: Referral ID Status Reason Start Date Expiration Date V isits Requested Visits Authorized [id number] Closed PCP Requested Referral 09/27/2024 09/27/2025 1 1 Reason Comments Dizziness Specialty Diagnoses / Procedures Referred By Contac t Referred To Contact Audiology / SPEECH THERAPY Diagnoses VNG Procedures RS SP VNG Yang Workman PA-C [address] [place] [address] Phone: tel: fax: Blessing Wright, AUD [address] [place] [address] Referral ID Status Reason Start Date Expiration Date Visits Re quested Visits Authorized [id number] Closed 09/05/2024 07/10/2025 1 1 Reason Comments Physical Therapy Specialty Diagnoses / Procedures Referred By Contac t Referred To Contact [facility] Diagnoses Dizziness Post-acute sequelae of COVID-19 (PASC) Procedures CONSULT TO PHYSICAL THERAPY PHYSICAL THERAPY EVALUATION [facility] 45 MINS Martha Hassan PA-C [address] [facility] [place] [address] [facility] [address] [place] [address] Referral ID Status Reason Start Date Expiration Date Visits Requested Visits Authorized [id number] Authorized Auto-Generat ed Referral 07/13/2024 07/10/2025 60 60 Reason Comments Facial Swelling Eye pain and swellin g started Tuesday night. Worsened Tuesday morning. Eye swollen shut. Then glands on right side got swollen with pain throughout right side of face. Reason Comments Abdominal Pain Reason Comments Allergic Reaction Reason Comments Bladder pain Pelvic Pain Reason Comments Follow Up Reason Onset Date Comments Insurance Authorization 10/19/2022 Reason Comments Hospital F/U Reason Comments Orders Reason Comments Spirometry Specialty Diagnoses / Procedures Referred By Contac t Referred To Contact [facility] Diagnoses Mild persistent asthma, unspecified whether complicated Procedures NITRIC OXIDE, EXHALED NITRIC OXIDE GAS DETERMINATION Ayaka Anne PA-C [address] [place] [address] [facility] [address] [place] [address] Referral ID Status Reason Start Date Expiration Date V isits Requested Visits Authorized [id number] Closed Auto-Generate d Referral 10/22/2022 11/21/2023 1 1 Specialty Diagnoses / Procedures Referred By Contac t Referred To Contact [facility] Diagnoses Mild persistent asthma, unspecified whether complicated Procedures SPIROMETRY - BASELINE AND POST DILATOR BRNCDILAT RSPSE SPMTRY PRE&POST-BRNCDILAT ADMN Ayaka Anne PA-C [address] [place] [address] [address] Referral ID Status Reason Start Date Expiration Date V isits Requested Visits Authorized [id number] Closed Auto-Generate d Referral 10/22/2022 11/21/2023 1 1 Reason Comments Established Patient Asthma follow up Reason Comments Establish Care Some recent health c hanges(dizziness, brain fog, vision change and headaches) Syncope Has happened about 5 times since november Reason Comments Forms Reason Comments Consult Specialty Diagnoses / Procedures Referred By Contac t Referred To Contact Allergy Diagnoses Elevated IgE level History of environmental allergies Mild persistent asthma, unspecified whether complicated Procedures CONSULT TO ALLERGY/IMMUNOLOGY OFFICE/OUTPATIENT [facility] 60-74 MINUTES Hannah Grimes, 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.HORSE SHOER [address] [place] [address] Referral ID Status Reason Start Date Expiration Date V isits Requested Visits Authorized [id number] Closed PCP Requested Referral 12/19/2022 11/18/2023 1 1 Reason Comments UTI UTI since today. Pt is experiencing pain, pressure, burning. Pt has headaches and is feeling nauseous. No other symptoms. No concerns for STD's Reason Comments Established Patient Specialty Diagnoses / Procedures Referred By Contac t Referred To Contact Women's Health Specialist / GYNECOLOGY Diagnoses Headache, unspecified Follow up/ PCOS/Frequent UTi/Vaginitis Procedures OFFICE/OUTPATIENT EST PT MAY NOT REQ PHYS/QHP EST WHI PATIENT Self Sanjana Chamberlain MD [address] [place] [address] Referral ID Status Reason Start Date Expiration Date Visits Re quested Visits Authorized [id number] Closed 08/11/2023 10/10/2023 1 1 Reason Comments Well Woman Reason Onset Date Comments blood when wiping 08/30/2023 Reason Comments Results Reason Comments Dysuria Reason Comments Urinary Frequency Specialty Diagnoses / Procedures Referred By Contac t Referred To Contact [facility] Diagnoses cysto Procedures CYSTOSCOPY Daniel Guerrero, DO 1 [facility], [address]nd [place] [address] [facility] [address] [place] [address] Referral ID Status Reason Start Date Expiration Date V isits Requested Visits Authorized [id number] Closed Financial Clearance Required - Self Pay Clearance Not Met -Financial Clearance Bypassed 11/08/2023 02/06/2024 1 1 Reason Comments New Patient Establishing care de pression, POTS what's to discuss, Allergie testing with food. Reason Comments Consult NEUROLOGY # [id number] Reason Comments Other Pt states that an ho ur ago she had an episode in which she felt that there was a bubble in her chest, which went away and was followed by the sensation of pins and needles throughout her whole body, along with dizziness. Pt still reporting dizziness and the pins & needles sensation, but states the sensation of a bubble in her chest has gone away. Pt reports she was recently diagnosed with a panic disorder and started prozac 9 days ago Specialty Diagnoses / Procedures Referred By Contac t Referred To Contact Diagnoses Tachycardia Abnormal EKG Chest pain, unspecified type Procedures . Boubacar Gentile MD [address] [place] [address] [address] [address] [place] [address] Referral ID Status Reason Start Date Expiration Date Visits Re quested Visits Authorized [id number] 1 1 Specialty Diagnoses / Procedures Referred By Contac t Referred To Contact Cardiology Diagnoses Abnormal ECG Procedures Exercise stress test Amadou Dunlap, 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 - HORSE SHOER [address] [place] [address] Non-Invasive Cardiology [address] [place] [address] Referral ID Status Reason Start Date Expiration Date Visits Re quested Visits Authorized [id number] Closed 03/01/2024 02/24/2025 1 1 Reason Comments Med Change Request Reason Comments Follow Up Follow up meds ( sto pped taking the prozac) and update on health ( admitted to ICU last week signs of heart attack DX with PODS Reason Comments Palpitations Shortness of Breath Dizziness Chest Pain Reason Comments Palpitations Shortness of Breath Dizziness Chest Pain Reason Comments Received Outside Medical Records [facility], [facility]. Reason Comments Established Patient asthma Specialty Diagnoses / Procedures Referred By Contac t Referred To Contact Physical Therapy Diagnoses POTS (postural orthostatic tachycardia syndrome) Procedures GA OFFICE/OUTPATIENT NEW HIGH MDM 60 MINUTES Jessica Bird, 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 - HORSE SHOER [address] [place] [address] Ach Uymca Pt [address] [facility] [address] [place] [address] Referral ID Status Reason Start Date Expiration Date Visits Requested Visits Authorized [id number] Authorized Eval and Treat 03/15/2024 6 6 Reason Comments Consult GASTRO # [id number] Reason Comments Follow Up 6 week follow up Reason Comments New Patient Self referred. Recen tly dx with POCS Specialty Diagnoses / Procedures Referred By Contac t Referred To Contact Neurology Diagnoses Migraine with aura and without status migrainosus, not intractable Syncope, unspecified syncope type Dizziness Procedures CONSULT TO NEUROLOGY OFFICE/OUTPATIENT NEW HIGH MDM 60 MINUTES Boubacar Sky, 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.HORSE SHOER [address] [place] [address] Referral ID Status Reason Start Date Expiration Date V isits Requested Visits Authorized [id number] Closed PCP Requested Referral 02/16/2024 02/15/2025 1 1 Reason Comments Medication Problem Reason Comments Established Patient Reason Comments Preparations For Procedures Reason Comments GERD Specialty Diagnoses / Procedures Referred By Contac t Referred To Contact Gastroenterology Diagnoses Gastroesophageal reflux disease with esophagitis without hemorrhage Procedures CONSULT TO GASTROENTEROLOGY OFFICE/OUTPATIENT NEW HIGH MDM 60 MINUTES Boubacar Sky APRN.HORSE SHOER [address] [place] [address] Referral ID Status Reason Start Date Expiration Date V isits Requested Visits Authorized [id number] Closed PCP Requested Referral 03/29/2024 03/29/2025 1 1 Reason Comments Follow Up 5 week follow up hav ing more headaches/pain with this new medication she noticed that it elevated it more. Feels spaced out and anxiety Reason Comments Asthma allergy testing Reason Comments Follow-up POTS Specialty Diagnoses / Procedures [facility] Referred To Contact MR IMAGING Diagnoses Other intractable trigeminal autonomic cephalgia (TAC) Procedures MRI BRAIN WO IVCON MRI BRAIN BRAIN STEM W/[place] [address] [place] [address] [place] [address] Referral ID Status Reason Start Date Expiration Date V isits Requested Visits Authorized [id number] Closed Auto-Generate d Referral 04/03/2024 05/03/2025 1 1 Reason Onset Date Comments Results 05/01/2024 Reason Comments Results Throat Problem Pain with swallowing and throat discomfort Reason Comments Establish Care Reason Comments Established Patient F/U POTS Reason Comments Patient Question Reason Comments Dysphagia Reason Onset Date Comments Procedure 06/11/2024 Manometry Esopha geal Specialty Diagnoses / Procedures [facility] Referred To Contact [facility] Diagnoses Dysphagia, unspecified type Procedures MANOMETRY ESOPHAGEAL ESOPHAGEAL MOTILITY STUDY W/INTERP&RPT Makenzie Lynn APRN.HORSE SHOER [address] [place] [address] [facility] [address] [place] [address] Referral ID Status Reason Start Date Expiration Date V isits Requested Visits Authorized [id number] Closed Auto-Generate d Referral 05/02/2024 05/02/2025 1 1 Reason Comments Radiology CTA Specialty Diagnoses / Procedures [facility] Referred To Contact CT IMAGING Diagnoses Chest pain, unspecified type Procedures CTA CORONARY W IVCON CTA HRT CORNRY ART/BYPASS FTS CONTRST 3D POST Ramses Pyle MD [address] [place] [address] Ct Imaging [facility]95 Referral ID Status Reason Start Date Expiration Date V isits Requested Visits Authorized [id number] Closed Auto-Generate d Referral 05/28/2024 06/27/2025 1 1 Reason Comments Results Coronary CTA Reason Comments Speech Instrumental Swallow Eval Speech Discharge Specialty Diagnoses / Procedures Referred By Contac t Referred To Contact XR IMAGING Diagnoses Dysphagia, unspecified type Procedures XR MODIFIED BARIUM SWALLOW W SPEECH THERAPY RADIOLOGIC EXAM SWALLOW FUNCTION CONTRAST STUDY Shane, Makenzie, 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.HORSE SHOER [address] [place] [address] [facility] [place] [address] Referral ID Status Reason Start Date Expiration Date V isits Requested Visits Authorized [id number] Closed Auto-Generate d Referral 05/02/2024 06/01/2025 1 1 Specialty Diagnoses / Procedures Referred By Contac t Referred To Contact [facility] Diagnoses Moderate persistent asthma without complication Procedures SPIROMETRY WITH DILATOR IF OBSTRUCTED BRNCDILAT RSPSE SPMTRY PRE&POST-BRNCDILAT ADMN Nicola Teixeira 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.HORSE SHOER [address] [place] [address] [facility] [address] [place] [id number] Referral ID Status Reason Start Date Expiration Date V isits Requested Visits Authorized [id number] Closed Auto-Generate d Referral 03/23/2024 04/22/2025 1 1 Specialty Diagnoses / Procedures Referred By Contac t Referred To Contact [facility] Diagnoses Moderate persistent asthma without complication Procedures NITRIC OXIDE, EXHALED NITRIC OXIDE GAS DETERMINATION Nicola Teixeira APRN.HORSE SHOER [address] [place] [address] [facility] [address] [place] [id number] Referral ID Status Reason Start Date Expiration Date V isits Requested Visits Authorized [id number] Closed Auto-Generate d Referral 03/23/2024 04/22/2025 1 1 Reason Comments Established Patient 3 month follow up as thma Reason Onset Date Comments Appointment Request 05/18/2022 Reason Comments New Patient Evaluation Specialty Diagnoses / Procedures Referred By Contac t Referred To Contact Psychology / NEUROLOGICAL MORMONISM Diagnoses Vertigo of central origin Procedures CONSULT TO PSYCHOLOGY OFFICE/OUTPATIENT [facility] MDM [address] [place] [address] [place] [address] [facility] [address] [place] [address] Referral ID Status Reason Start Date Expiration Date V isits Requested Visits Authorized [id number] Closed PCP Requested Referral 06/13/2024 07/10/2024 1 1 Reason Comments Nurse Visit Vit B12 injection Reason Comments Intake Reason Comments covid recovery Specialty Diagnoses / Procedures Referred By Contac t Referred To Contact [facility] Diagnoses Headaches Dizziness Procedures CONSULT TO COVID RECOVER CLINIC Daniel Guerrero, DO 1 [facility], [address] [place] [address] Pulm Covid Recov [facility] [address] [place] [address] Referral ID Status Reason Start Date Expiration Date V isits Requested Visits Authorized [id number] Closed PCP Requested Referral 07/21/2023 07/20/2024 3 3 Reason Comments New Patient Esophageal spasm Specialty Diagnoses / Procedures Referred By Contac t Referred To Contact Diagnoses Esophageal spasm Procedures CONSULT TO GI SWALLOWING CENTER OFFICE/OUTPATIENT [facility] 60 MINUTES Makenzie Lynn APRN.HORSE SHOER [address] [address] Referral ID Status Reason Start Date Expiration Date V isits Requested Visits Authorized [id number] Closed PCP Requested Referral 06/19/2024 06/19/2025 1 1 Reason Comments Joint Pain New Patient Specialty Diagnoses / Procedures Referred By Contac t Referred To Contact Internal Medicine / RHEUMATOLOGY Diagnoses POTS (postural orthostatic tachycardia syndrome) New ufnifgd-Cchg-rvfjfqg disorder, related to POTS diagnosis Self/epic cs Procedures OFFICE/OUTPATIENT NEW MDM 15 MINUTES OFFICE/OUTPATIENT NEW LOW MDM 30 MINUTES OFFICE/OUTPATIENT NEW MODERATE MDM 45 MINUTES OFFICE/OUTPATIENT NEW HIGH MDM 60 MINUTES NEW PATIENT Self Nieves Smith MD [address] [address] Referral ID Status Reason Start Date Expiration Date Visits Re quested Visits Authorized [id number] Denied 07/13/2024 10/11/2024 1 1 Reason Comments pcos Specialty Diagnoses / Procedures Referred By Barbi t Referred To Contact Endocrinology / ENDOCRINOLOGY Diagnoses Encounter for general adult medical examination without abnormal findings New patient--PCOS Procedures OFFICE/OUTPATIENT ESTABLISHED HIGH MDM 40 MIN OFFICE/OUTPATIENT ESTABLISHED MOD MDM 30 MIN OFFICE/OUTPATIENT ESTABLISHED LOW MDM 20 MIN OFFICE/OUTPATIENT ESTABLISHED SF MDM 10 MIN NEW PATIENT Self Aliza Boyd MD [address] [place] [address] Referral ID Status Reason Start Date Expiration Date Visits Re quested Visits Authorized [id number] Closed 07/18/2024 10/16/2024 1 1 Reason Comments Speech Evaluation Specialty Diagnoses / Procedures Referred By Barbi suero Referred To Contact [facility] Diagnoses Brain fog Memory change Post-acute sequelae of COVID-19 (PASC) Procedures CONSULT TO SPEECH THERAPY OFFICE/OUTPATIENT NEW HIGH MDM 60 MINUTES Martha Hassan PA-C [address] [facility] [address] [place] [address] [facility] [address] [address] Referral ID Status Reason Start Date Expiration Date Visits Requested Visits Authorized [id number] Pending Review Auto-Generat ed Referral 4 07/09/2025 1 1 Reason Comments Asthma chest tightness Reason Comments [facility] Specialty Diagnoses / Procedures Referred By Barbi suero Referred To Contact Diagnoses Shortness of breath Moderate persistent asthma without complication POTS (postural orthostatic tachycardia syndrome) Dizziness Palpitations Tachycardia Chest pain, unspecified type Headaches Food intolerance Brain fog Memory change Nerve pain Post-acute sequelae of COVID-19 (PASC) Procedures CONSULT TO [facility] PHYSICIAN OFFICE/OUTPATIENT NEW HIGH MDM 60 MINUTES Martha Hassan PA-C [address] [place] [address] Referral ID Status Reason Start Date Expiration Date V isits Requested Visits Authorized [id number] Closed PCP Requested Referral 07/09/2024 07/09/2025 1 1 Specialty Diagnoses / Procedures Referred By Contac t Referred To Contact [facility] Diagnoses Tachycardia Chest pain, unspecified type Headaches Nerve pain Procedures CONSULT FOR ACUPUNCTURE ACUPUNCTURE 1/> NDLS W/ELEC STIMJ 1ST 15 MIN ACUPUNCTURE 1/> NDLS W/ESTIM EACH ADDL 15 MIN Apple Grady PA-C [address] [place] [address] [facility] [address] [address] Referral ID Status Reason Start Date Expiration Date Visits Requested Visits Authorized [id number] Authorized PCP Requested Referral 07/11/2024 07/10/2025 25 25 Reason Comments PT Eval Reason Comments Nurse Visit Vit B12 Reason Comments Mass Specialty Diagnoses / Procedures Referred By Contac t Referred To Contact Family Medicine / FAMILY MEDICINE Diagnoses OMT Procedures OFFICE VISIT, EST PT., LEVEL 2 TC [facility] [place] [address] [place] [address] [facility] Acc [facility] [address] [place] [address] Referral ID Status Reason Start Date Expiration Date Visits Requested Visits Authorized [id number] Authorized Patient Cleared - Qualified 100% FAS 08/07/2024 12/05/2024 99 99 Specialty Diagnoses / Procedures Referred By Contac t Referred To Contact Speech-Language Pathologist / SPEECH LANGUAGE PATHOLOGY Diagnoses CONSULT TO SPEECH THERAPY 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] Fely Garcia APRN.COMPUTER OPERATIONS MANAGER in [facility] [place] MCPlease schedule with Sharlene Means or other Procedures NEW HNI PATIENT Fely Garcia APRN.COMPUTER OPERATIONS MANAGER [address] [place] [address] Sharlene Means, PhD, CCC-CRYOLITE RECOVERY OPERATOR [address] [place] [address] Referral ID Status Reason Start Date Expiration Date V isits Requested Visits Authorized [id number] Authorized 07/13/2024 07/10/2025 60 60 Reason Comments Joint Pain Reason Comments Speech Progress Note Specialty Diagnoses / Procedures Referred By Barbi suero Referred To Contact Speech-Language Pathologist / SPEECH LANGUAGE PATHOLOGY Diagnoses CONSULT TO SPEECH THERAPY 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] Fely Garcia, 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.COMPUTER OPERATIONS MANAGER in [facility] [place] MCPlease schedule with Sharlene Means or other Procedures NEW HNI PATIENT Fely Garcia APRN.COMPUTER OPERATIONS MANAGER [address] [place] [address] Sharlene Means, PhD, CCC-CRYOLITE RECOVERY OPERATOR [address] [place] [address] Reason Comments Speech Therapy Specialty Diagnoses / Procedures Referred By Barbi suero Referred To Contact Speech-Language Pathologist / SPEECH LANGUAGE PATHOLOGY Diagnoses CONSULT TO SPEECH THERAPY 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-CRYOLITE RECOVERY OPERATOR [address] [place] [address] Phone: tel: Reason Comments Appointment Reason Comments Covid Follow Up Reason Comments Holter Monitor Application 24-HR Reason Onset Date Comments ED outreach 08/28/2024 Reason Comments New Patient Headache PASC, diagn osed with POTS. Specialty Diagnoses / Procedures Referred By Barbi suero Referred To Contact Neurology Diagnoses Headaches Post-acute sequelae of COVID-19 (PASC) Procedures CONSULT TO NEUROLOGY OFFICE/OUTPATIENT NEW HIGH MDM 60 MINUTES Martha Hassan PA-C [address]/[place] [address] Phone: tel: fax: Referral ID Status Reason Start Date Expiration Date V isits Requested Visits Authorized [id number] Closed PCP Requested Referral 07/09/2024 07/09/2025 1 1 Reason Comments CARD New Patient Consult SED [employer]ER REF FOR SVT Reason Comments Ringing In Ear(s) Hearing Loss Dizziness Specialty Diagnoses / Procedures Referred By Barbi suero Referred To Contact Ent - Otolaryngology Diagnoses Dizziness Post-acute sequelae of COVID-19 (PASC) Procedures CONSULT TO ENT OFFICE/OUTPATIENT [facility] 60 MINUTES Martha Hassan PA-C [address] Suite [facility]/[place] [address] Phone: tel: fax: Referral ID Status Reason Start Date Expiration Date V isits Requested Visits Authorized [id number] Closed PCP Requested Referral 07/09/2024 07/09/2025 1 1 Reason Comments New Patient Dizziness Pt stated that she h as been dealing with dizziness and started getting tinnitus in April. Also, she noticed some hearing loss in the left ear. Specialty Diagnoses / Procedures Referred By Barbi suero Referred To Contact Ent - Otolaryngology Diagnoses Dizziness Post-acute sequelae of COVID-19 (PASC) Procedures CONSULT TO ENT OFFICE/OUTPATIENT [facility] 60 MINUTES Martha Hassan PA-C [address]/[place] [address] Phone: tel: fax: Referral ID Status Reason Start Date Expiration Date V isits Requested Visits Authorized [id number] Closed PCP Requested Referral 07/09/2024 07/09/2025 1 1 Reason Comments CARD Follow Up 6 Month Dizziness Follow up. Tachycardia heart rate over 110. Started 10 minutes. Reason Comments Recheck Reason Comments Nurse Visit B 12 injection Reason Comments Follow Up Reason Onset Date Comments Anxiety 10/01/2024 Reason Comments F/U 4 weeks Reason Onset Date Comments Transition Of Care 10/08/2024 TCM Pharmacy- Hospital discharge 10/07/24 Reason Comments Transition Of Care Reason Comments Refill Request Reason Comments Procedure Reason Onset Date Comments Refill Request 11/03/2024 Reason Onset Date Comments Refill Request 11/05/2024 Reason Comments Menstrual Problem Reason Comments SIS Specialty Diagnoses / Procedures Referred By Contac t Referred To Contact [facility] Diagnoses Abnormal uterine bleeding (AUB) Procedures SONOHYSTEROGRAPHY (SIS) US WHI SALINE INFUS SONOHYSTEROGRAPHY W/COLOR DOPPLER Carline Carson, 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.[facility] [address] [id number] Phone: tel: fax: [place] [address] Referral ID Status Reason Start Date Expiration Date V isits Requested Visits Authorized [id number] Closed Auto-Generate d Referral 11/21/2024 11/21/2025 1 1 Reason Comments Follow Up Established Patient Reason Comments Follow Up Return in about 4 we eks (around 11/08/2024), or Follow up on autonomic testing and mood Reason Comments Orders Complete ultrasound left breast Reason Onset Date Comments EMG 12/12/2024 Specialty Diagnoses / Procedures Referred By Contac t Referred To Contact [facility] Diagnoses Paresthesias Arm pain, left Procedures EMG(NEURO/NI) NERVE CONDUCTION STUDIES 9-10 STUDIES Mo Guzman, 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.[facility] [address] [facility] [place] [id number] Phone: tel: fax: Neurology [address] [place] [address] Phone: tel: Referral ID Status Reason Start Date Expiration Date V isits Requested Visits Authorized [id number] Closed Auto-Generate d Referral 12/12/2024 07/10/2025 1 1 Reason Comments Established Patient Reason Comments Asthma Reason Comments endometrial polyp Reason Comments Schedule Surgery Reason Comments Results Reason Onset Date Comments Refill Request 01/04/2025 Reason Comments Medication Problem Medroxyprogesterone Reason Comments Irregular Menstrual Cycle Reason Comments Appointment Follow-up Reason Comments No Show Specialty Diagnoses / Procedures Referred By Contac t Referred To Contact [facility] Diagnoses Dizziness Post-acute sequelae of COVID-19 (PASC) Procedures PHYSICAL THERAPY EVALUATION HIGH COMPLEX 45 MINS Martha Hassan PA-C [address] [facility] [address] [place] [address] Phone: tel: fax: [facility] [address] [place] [address] Reason Comments Follow Up 3 month follow up pe r pcp Reason Comments Exercise Prescription POTS Specialty Diagnoses / Procedures Referred By Contac t Referred To Contact [facility] Diagnoses POTS (postural orthostatic tachycardia syndrome) Tachycardia Syncope, unspecified syncope type Brain fog Palpitations Sinus tachycardia DU (dyspnea on exertion) Procedures EXERCISE STRESS ECG (WITHOUT IMAGING) CV STRS TST XERS&/OR RX CONT ECG TRCG ONLY Alba Roman, MARCO.HORSE SHOER [address] [place] [address] Phone: tel: fax: [facility] [address] [address] Referral ID Status Reason Start Date Expiration Date Visits Requested Visits Authorized [id number] New Request Auto-Genera sarah Referral Patient Cleared - Admin/Chair man/Directo r advise to proceed or did not respond 03/26/2025 03/26/2026 1 1 Ordered Prescriptions (unrec ognized section and content) Prescription Sig Dispensed Refills Start Date End Da te ondansetron (ZOFRAN) 4 MG tablet Take 1 tablet by mouth 3 times daily as needed for Nausea or Vomiting 15 tablet 0 09/11/2020 Prescription Sig Dispensed Refills Start Date End Da te predniSONE (DELTASONE) 10 MG tablet Take 2 tablets by mouth daily for 5 days 10 tablet 0 01/05/2022 01/10/2022 Source Comments (unrecognize d section and content) In the event this informatio n is protected by the Federal Confidentiality of Alcohol and Drug Abuse Patient Records regulations: The Federal rules restrict any use of the information to criminally investigate or prosecute any alcohol or drug abuse patient.[facility] the event this information is protected by the Federal Confidentiality of Alcohol and Drug Abuse Patient Records regulations: The Federal rules restrict any use of the information to criminally investigate or prosecute any alcohol or drug abuse patient.[facility] the event this information is protected by the Federal Confidentiality of Alcohol and Drug Abuse Patient Records regulations: The Federal rules restrict any use of the information to criminally investigate or prosecute any alcohol or drug abuse patient.[facility]In the event this information is protected by the Federal Confidentiality of Alcohol and Drug Abuse Patient Records regulations: The Federal rules restrict any use of the information to criminally investigate or prosecute any alcohol or drug abuse patient.[facility]In the event this information is protected by the Federal Confidentiality of Alcohol and Drug Abuse Patient Records regulations: The Federal rules restrict any use of the information to criminally investigate or prosecute any alcohol or drug abuse patient.[facility]In the event this information is protected by the Federal Confidentiality of Alcohol and Drug Abuse Patient Records regulations: The Federal rules restrict any use of the information to criminally investigate or prosecute any alcohol or drug abuse patient.[facility]In the event this information is protected by the Federal Confidentiality of Alcohol and Drug Abuse Patient Records regulations: The Federal rules restrict any use of the information to criminally investigate or prosecute any alcohol or drug abuse patient.[facility]In the event this information is protected by the Federal Confidentiality of Alcohol and Drug Abuse Patient Records regulations: The Federal rules restrict any use of the information to criminally investigate or prosecute any alcohol or drug abuse patient.[facility]In the event this information is protected by the Federal Confidentiality of Alcohol and Drug Abuse Patient Records regulations: The Federal rules restrict any use of the information to criminally investigate or prosecute any alcohol or drug abuse patient.[facility]In the event this information is protected by the Federal Confidentiality of Alcohol and Drug Abuse Patient Records regulations: The Federal rules restrict any use of the information to criminally investigate or prosecute any alcohol or drug abuse patient.[facility]In the event this information is protected by the Federal Confidentiality of Alcohol and Drug Abuse Patient Records regulations: The Federal rules restrict any use of the information to criminally investigate or prosecute any alcohol or drug abuse patient.[facility]In the event this information is protected by the Federal Confidentiality of Alcohol and Drug Abuse Patient Records regulations: The Federal rules restrict any use of the information to criminally investigate or prosecute any alcohol or drug abuse patient.[facility]In the event this information is protected by the Federal Confidentiality of Alcohol and Drug Abuse Patient Records regulations: The Federal rules restrict any use of the information to criminally investigate or prosecute any alcohol or drug abuse patient.[facility]In the event this information is protected by the Federal Confidentiality of Alcohol and Drug Abuse Patient Records regulations: The Federal rules restrict any use of the information to criminally investigate or prosecute any alcohol or drug abuse patient.[facility]In the event this information is protected by the Federal Confidentiality of Alcohol and Drug Abuse Patient Records regulations: The Federal rules restrict any use of the information to criminally investigate or prosecute any alcohol or drug abuse patient.[facility]In the event this information is protected by the Federal Confidentiality of Alcohol and Drug Abuse Patient Records regulations: The Federal rules restrict any use of the information to criminally investigate or prosecute any alcohol or drug abuse patient.[facility]In the event this information is protected by the Federal Confidentiality of Alcohol and Drug Abuse Patient Records regulations: The Federal rules restrict any use of the information to criminally investigate or prosecute any alcohol or drug abuse patient.[facility]In the event this information is protected by the Federal Confidentiality of Alcohol and Drug Abuse Patient Records regulations: The Federal rules restrict any use of the information to criminally investigate or prosecute any alcohol or drug abuse patient.[facility]In the event this information is protected by the Federal Confidentiality of Alcohol and Drug Abuse Patient Records regulations: The Federal rules restrict any use of the information to criminally investigate or prosecute any alcohol or drug abuse patient.[facility]In the event this information is protected by the Federal Confidentiality of Alcohol and Drug Abuse Patient Records regulations: The Federal rules restrict any use of the information to criminally investigate or prosecute any alcohol or drug abuse patient.[facility]In the event this information is protected by the Federal Confidentiality of Alcohol and Drug Abuse Patient Records regulations: The Federal rules restrict any use of the information to criminally investigate or prosecute any alcohol or drug abuse patient.[facility]In the event this information is protected by the Federal Confidentiality of Alcohol and Drug Abuse Patient Records regulations: The Federal rules restrict any use of the information to criminally investigate or prosecute any alcohol or drug abuse patient.[facility]In the event this information is protected by the Federal Confidentiality of Alcohol and Drug Abuse Patient Records regulations: The Federal rules restrict any use of the information to criminally investigate or prosecute any alcohol or drug abuse patient.[facility]In the event this information is protected by the Federal Confidentiality of Alcohol and Drug Abuse Patient Records regulations: The Federal rules restrict any use of the information to criminally investigate or prosecute any alcohol or drug abuse patient.[facility]In the event this information is protected by the Federal Confidentiality of Alcohol and Drug Abuse Patient Records regulations: The Federal rules restrict any use of the information to criminally investigate or prosecute any alcohol or drug abuse patient.[facility]In the event this information is protected by the Federal Confidentiality of Alcohol and Drug Abuse Patient Records regulations: The Federal rules restrict any use of the information to criminally investigate or prosecute any alcohol or drug abuse patient.[facility]In the event this information is protected by the Federal Confidentiality of Alcohol and Drug Abuse Patient Records regulations: The Federal rules restrict any use of the information to criminally investigate or prosecute any alcohol or drug abuse patient.[facility]In the event this information is protected by the Federal Confidentiality of Alcohol and Drug Abuse Patient Records regulations: The Federal rules restrict any use of the information to criminally investigate or prosecute any alcohol or drug abuse patient.[facility]In the event this information is protected by the Federal Confidentiality of Alcohol and Drug Abuse Patient Records regulations: The Federal rules restrict any use of the information to criminally investigate or prosecute any alcohol or drug abuse patient.[facility]In the event this information is protected by the Federal Confidentiality of Alcohol and Drug Abuse Patient Records regulations: The Federal rules restrict any use of the information to criminally investigate or prosecute any alcohol or drug abuse patient.[facility]In the event this information is protected by the Federal Confidentiality of Alcohol and Drug Abuse Patient Records regulations: The Federal rules restrict any use of the information to criminally investigate or prosecute any alcohol or drug abuse patient.[facility]In the event this information is protected by the Federal Confidentiality of Alcohol and Drug Abuse Patient Records regulations: The Federal rules restrict any use of the information to criminally investigate or prosecute any alcohol or drug abuse patient.[facility]In the event this information is protected by the Federal Confidentiality of Alcohol and Drug Abuse Patient Records regulations: The Federal rules restrict any use of the information to criminally investigate or prosecute any alcohol or drug abuse patient.[facility]In the event this information is protected by the Federal Confidentiality of Alcohol and Drug Abuse Patient Records regulations: The Federal rules restrict any use of the information to criminally investigate or prosecute any alcohol or drug abuse patient.[facility]In the event this information is protected by the Federal Confidentiality of Alcohol and Drug Abuse Patient Records regulations: The Federal rules restrict any use of the information to criminally investigate or prosecute any alcohol or drug abuse patient.[facility]In the event this information is protected by the Federal Confidentiality of Alcohol and Drug Abuse Patient Records regulations: The Federal rules restrict any use of the information to criminally investigate or prosecute any alcohol or drug abuse patient.[facility]In the event this information is protected by the Federal Confidentiality of Alcohol and Drug Abuse Patient Records regulations: The Federal rules restrict any use of the information to criminally investigate or prosecute any alcohol or drug abuse patient.[facility]In the event this information is protected by the Federal Confidentiality of Alcohol and Drug Abuse Patient Records regulations: The Federal rules restrict any use of the information to criminally investigate or prosecute any alcohol or drug abuse patient.[facility]In the event this information is protected by the Federal Confidentiality of Alcohol and Drug Abuse Patient Records regulations: The Federal rules restrict any use of the information to criminally investigate or prosecute any alcohol or drug abuse patient.[facility]In the event this information is protected by the Federal Confidentiality of Alcohol and Drug Abuse Patient Records regulations: The Federal rules restrict any use of the information to criminally investigate or prosecute any alcohol or drug abuse patient.[facility]In the event this information is protected by the Federal Confidentiality of Alcohol and Drug Abuse Patient Records regulations: The Federal rules restrict any use of the information to criminally investigate or prosecute any alcohol or drug abuse patient.[facility]In the event this information is protected by the Federal Confidentiality of Alcohol and Drug Abuse Patient Records regulations: The Federal rules restrict any use of the information to criminally investigate or prosecute any alcohol or drug abuse patient.[facility]In the event this information is protected by the Federal Confidentiality of Alcohol and Drug Abuse Patient Records regulations: The Federal rules restrict any use of the information to criminally investigate or prosecute any alcohol or drug abuse patient.[facility]In the event this information is protected by the Federal Confidentiality of Alcohol and Drug Abuse Patient Records regulations: The Federal rules restrict any use of the information to criminally investigate or prosecute any alcohol or drug abuse patient.[facility]In the event this information is protected by the Federal Confidentiality of Alcohol and Drug Abuse Patient Records regulations: The Federal rules restrict any use of the information to criminally investigate or prosecute any alcohol or drug abuse patient.[facility]In the event this information is protected by the Federal Confidentiality of Alcohol and Drug Abuse Patient Records regulations: The Federal rules restrict any use of the information to criminally investigate or prosecute any alcohol or drug abuse patient.[facility]In the event this information is protected by the Federal Confidentiality of Alcohol and Drug Abuse Patient Records regulations: The Federal rules restrict any use of the information to criminally investigate or prosecute any alcohol or drug abuse patient.[facility]In the event this information is protected by the Federal Confidentiality of Alcohol and Drug Abuse Patient Records regulations: The Federal rules restrict any use of the information to criminally investigate or prosecute any alcohol or drug abuse patient.[facility] the event this information is protected by the Federal Confidentiality of Alcohol and Drug Abuse Patient Records regulations: The Federal rules restrict any use of the information to criminally investigate or prosecute any alcohol or drug abuse patient.[facility]In the event this information is protected by the Federal Confidentiality of Alcohol and Drug Abuse Patient Records regulations: The Federal rules restrict any use of the information to criminally investigate or prosecute any alcohol or drug abuse patient.[facility]In the event this information is protected by the Federal Confidentiality of Alcohol and Drug Abuse Patient Records regulations: The Federal rules restrict any use of the information to criminally investigate or prosecute any alcohol or drug abuse patient.[facility] ClinicIn the event this information is protected by the Federal Confidentiality of Alcohol and Drug Abuse Patient Records regulations: The Federal rules restrict any use of the information to criminally investigate or prosecute any alcohol or drug abuse patient.[facility]In the event this information is protected by the Federal Confidentiality of Alcohol and Drug Abuse Patient Records regulations: The Federal rules restrict any use of the information to criminally investigate or prosecute any alcohol or drug abuse patient.[facility]In the event this information is protected by the Federal Confidentiality of Alcohol and Drug Abuse Patient Records regulations: The Federal rules restrict any use of the information to criminally investigate or prosecute any alcohol or drug abuse patient.[facility]bleIn the event this information is protected by the Federal Confidentiality of Alcohol and Drug Abuse Patient Records regulations: The Federal rules restrict any use of the information to criminally investigate or prosecute any alcohol or drug abuse patient.[facility]In the event this information is protected by the Federal Confidentiality of Alcohol and Drug Abuse Patient Records regulations: The Federal rules restrict any use of the information to criminally investigate or prosecute any alcohol or drug abuse patient.[facility]In the event this information is protected by the Federal Confidentiality of Alcohol and Drug Abuse Patient Records regulations: The Federal rules restrict any use of the information to criminally investigate or prosecute any alcohol or drug abuse patient.[facility]In the event this information is protected by the Federal Confidentiality of Alcohol and Drug Abuse Patient Records regulations: The Federal rules restrict any use of the information to criminally investigate or prosecute any alcohol or drug abuse patient.[facility]In the event this information is protected by the Federal Confidentiality of Alcohol and Drug Abuse Patient Records regulations: The Federal rules restrict any use of the information to criminally investigate or prosecute any alcohol or drug abuse patient.[facility]In the event this information is protected by the Federal Confidentiality of Alcohol and Drug Abuse Patient Records regulations: The Federal rules restrict any use of the information to criminally investigate or prosecute any alcohol or drug abuse patient.[facility]In the event this information is protected by the Federal Confidentiality of Alcohol and Drug Abuse Patient Records regulations: The Federal rules restrict any use of the information to criminally investigate or prosecute any alcohol or drug abuse patient.[facility]In the event this information is protected by the Federal Confidentiality of Alcohol and Drug Abuse Patient Records regulations: The Federal rules restrict any use of the information to criminally investigate or prosecute any alcohol or drug abuse patient.[facility]In the event this information is protected by the Federal Confidentiality of Alcohol and Drug Abuse Patient Records regulations: The Federal rules restrict any use of the information to criminally investigate or prosecute any alcohol or drug abuse patient.[facility]In the event this information is protected by the Federal Confidentiality of Alcohol and Drug Abuse Patient Records regulations: The Federal rules restrict any use of the information to criminally investigate or prosecute any alcohol or drug abuse patient.[facility]In the event this information is protected by the Federal Confidentiality of Alcohol and Drug Abuse Patient Records regulations: The Federal rules restrict any use of the information to criminally investigate or prosecute any alcohol or drug abuse patient.[facility]In the event this information is protected by the Federal Confidentiality of Alcohol and Drug Abuse Patient Records regulations: The Federal rules restrict any use of the information to criminally investigate or prosecute any alcohol or drug abuse patient.[facility]In the event this information is protected by the Federal Confidentiality of Alcohol and Drug Abuse Patient Records regulations: The Federal rules restrict any use of the information to criminally investigate or prosecute any alcohol or drug abuse patient.[facility]In the event this information is protected by the Federal Confidentiality of Alcohol and Drug Abuse Patient Records regulations: The Federal rules restrict any use of the information to criminally investigate or prosecute any alcohol or drug abuse patient.[facility]In the event this information is protected by the Federal Confidentiality of Alcohol and Drug Abuse Patient Records regulations: The Federal rules restrict any use of the information to criminally investigate or prosecute any alcohol or drug abuse patient.[facility]In the event this information is protected by the Federal Confidentiality of Alcohol and Drug Abuse Patient Records regulations: The Federal rules restrict any use of the information to criminally investigate or prosecute any alcohol or drug abuse patient.[facility]In the event this information is protected by the Federal Confidentiality of Alcohol and Drug Abuse Patient Records regulations: The Federal rules restrict any use of the information to criminally investigate or prosecute any alcohol or drug abuse patient.[facility]In the event this information is protected by the Federal Confidentiality of Alcohol and Drug Abuse Patient Records regulations: The Federal rules restrict any use of the information to criminally investigate or prosecute any alcohol or drug abuse patient.[facility]In the event this information is protected by the Federal Confidentiality of Alcohol and Drug Abuse Patient Records regulations: The Federal rules restrict any use of the information to criminally investigate or prosecute any alcohol or drug abuse patient.[facility]In the event this information is protected by the Federal Confidentiality of Alcohol and Drug Abuse Patient Records regulations: The Federal rules restrict any use of the information to criminally investigate or prosecute any alcohol or drug abuse patient.[facility]In the event this information is protected by the Federal Confidentiality of Alcohol and Drug Abuse Patient Records regulations: The Federal rules restrict any use of the information to criminally investigate or prosecute any alcohol or drug abuse patient.[facility]In the event this information is protected by the Federal Confidentiality of Alcohol and Drug Abuse Patient Records regulations: The Federal rules restrict any use of the information to criminally investigate or prosecute any alcohol or drug abuse patient.[facility]In the event this information is protected by the Federal Confidentiality of Alcohol and Drug Abuse Patient Records regulations: The Federal rules restrict any use of the information to criminally investigate or prosecute any alcohol or drug abuse patient.[facility]In the event this information is protected by the Federal Confidentiality of Alcohol and Drug Abuse Patient Records regulations: The Federal rules restrict any use of the information to criminally investigate or prosecute any alcohol or drug abuse patient.[facility]In the event this information is protected by the Federal Confidentiality of Alcohol and Drug Abuse Patient Records regulations: The Federal rules restrict any use of the information to criminally investigate or prosecute any alcohol or drug abuse patient.[facility]In the event this information is protected by the Federal Confidentiality of Alcohol and Drug Abuse Patient Records regulations: The Federal rules restrict any use of the information to criminally investigate or prosecute any alcohol or drug abuse patient.[facility]In the event this information is protected by the Federal Confidentiality of Alcohol and Drug Abuse Patient Records regulations: The Federal rules restrict any use of the information to criminally investigate or prosecute any alcohol or drug abuse patient.[facility]In the event this information is protected by the Federal Confidentiality of Alcohol and Drug Abuse Patient Records regulations: The Federal rules restrict any use of the information to criminally investigate or prosecute any alcohol or drug abuse patient.[facility]In the event this information is protected by the Federal Confidentiality of Alcohol and Drug Abuse Patient Records regulations: The Federal rules restrict any use of the information to criminally investigate or prosecute any alcohol or drug abuse patient.[facility]In the event this information is protected by the Federal Confidentiality of Alcohol and Drug Abuse Patient Records regulations: The Federal rules restrict any use of the information to criminally investigate or prosecute any alcohol or drug abuse patient.[facility]In the event this information is protected by the Federal Confidentiality of Alcohol and Drug Abuse Patient Records regulations: The Federal rules restrict any use of the information to criminally investigate or prosecute any alcohol or drug abuse patient.[facility]In the event this information is protected by the Federal Confidentiality of Alcohol and Drug Abuse Patient Records regulations: The Federal rules restrict any use of the information to criminally investigate or prosecute any alcohol or drug abuse patient.[facility]In the event this information is protected by the Federal Confidentiality of Alcohol and Drug Abuse Patient Records regulations: The Federal rules restrict any use of the information to criminally investigate or prosecute any alcohol or drug abuse patient.[facility]In the event this information is protected by the Federal Confidentiality of Alcohol and Drug Abuse Patient Records regulations: The Federal rules restrict any use of the information to criminally investigate or prosecute any alcohol or drug abuse patient.[facility]In the event this information is protected by the Federal Confidentiality of Alcohol and Drug Abuse Patient Records regulations: The Federal rules restrict any use of the information to criminally investigate or prosecute any alcohol or drug abuse patient.[facility]In the event this information is protected by the Federal Confidentiality of Alcohol and Drug Abuse Patient Records regulations: The Federal rules restrict any use of the information to criminally investigate or prosecute any alcohol or drug abuse patient.[facility]In the event this information is protected by the Federal Confidentiality of Alcohol and Drug Abuse Patient Records regulations: The Federal rules restrict any use of the information to criminally investigate or prosecute any alcohol or drug abuse patient.[facility]In the event this information is protected by the Federal Confidentiality of Alcohol and Drug Abuse Patient Records regulations: The Federal rules restrict any use of the information to criminally investigate or prosecute any alcohol or drug abuse patient.[facility]In the event this information is protected by the Federal Confidentiality of Alcohol and Drug Abuse Patient Records regulations: The Federal rules restrict any use of the information to criminally investigate or prosecute any alcohol or drug abuse patient.[facility]In the event this information is protected by the Federal Confidentiality of Alcohol and Drug Abuse Patient Records regulations: The Federal rules restrict any use of the information to criminally investigate or prosecute any alcohol or drug abuse patient.[facility]In the event this information is protected by the Federal Confidentiality of Alcohol and Drug Abuse Patient Records regulations: The Federal rules restrict any use of the information to criminally investigate or prosecute any alcohol or drug abuse patient.[facility]In the event this information is protected by the Federal Confidentiality of Alcohol and Drug Abuse Patient Records regulations: The Federal rules restrict any use of the information to criminally investigate or prosecute any alcohol or drug abuse patient.[facility]In the event this information is protected by the Federal Confidentiality of Alcohol and Drug Abuse Patient Records regulations: The Federal rules restrict any use of the information to criminally investigate or prosecute any alcohol or drug abuse patient.[facility]In the event this information is protected by the Federal Confidentiality of Alcohol and Drug Abuse Patient Records regulations: The Federal rules restrict any use of the information to criminally investigate or prosecute any alcohol or drug abuse patient.[facility] the event this information is protected by the Federal Confidentiality of Alcohol and Drug Abuse Patient Records regulations: The Federal rules restrict any use of the information to criminally investigate or prosecute any alcohol or drug abuse patient.[facility]In the event this information is protected by the Federal Confidentiality of Alcohol and Drug Abuse Patient Records regulations: The Federal rules restrict any use of the information to criminally investigate or prosecute any alcohol or drug abuse patient.[facility]In the event this information is protected by the Federal Confidentiality of Alcohol and Drug Abuse Patient Records regulations: The Federal rules restrict any use of the information to criminally investigate or prosecute any alcohol or drug abuse patient.[facility] the event this information is protected by the Federal Confidentiality of Alcohol and Drug Abuse Patient Records regulations: The Federal rules restrict any use of the information to criminally investigate or prosecute any alcohol or drug abuse patient.[facility]In the event this information is protected by the Federal Confidentiality of Alcohol and Drug Abuse Patient Records regulations: The Federal rules restrict any use of the information to criminally investigate or prosecute any alcohol or drug abuse patient.[facility]In the event this information is protected by the Federal Confidentiality of Alcohol and Drug Abuse Patient Records regulations: The Federal rules restrict any use of the information to criminally investigate or prosecute any alcohol or drug abuse patient.[facility]In the event this information is protected by the Federal Confidentiality of Alcohol and Drug Abuse Patient Records regulations: The Federal rules restrict any use of the information to criminally investigate or prosecute any alcohol or drug abuse patient.[facility]In the event this information is protected by the Federal Confidentiality of Alcohol and Drug Abuse Patient Records regulations: The Federal rules restrict any use of the information to criminally investigate or prosecute any alcohol or drug abuse patient.[facility]In the event this information is protected by the Federal Confidentiality of Alcohol and Drug Abuse Patient Records regulations: The Federal rules restrict any use of the information to criminally investigate or prosecute any alcohol or drug abuse patient.[facility]In the event this information is protected by the Federal Confidentiality of Alcohol and Drug Abuse Patient Records regulations: The Federal rules restrict any use of the information to criminally investigate or prosecute any alcohol or drug abuse patient.[facility]In the event this information is protected by the Federal Confidentiality of Alcohol and Drug Abuse Patient Records regulations: The Federal rules restrict any use of the information to criminally investigate or prosecute any alcohol or drug abuse patient.[facility]In the event this information is protected by the Federal Confidentiality of Alcohol and Drug Abuse Patient Records regulations: The Federal rules restrict any use of the information to criminally investigate or prosecute any alcohol or drug abuse patient.[facility]In the event this information is protected by the Federal Confidentiality of Alcohol and Drug Abuse Patient Records regulations: The Federal rules restrict any use of the information to criminally investigate or prosecute any alcohol or drug abuse patient.[facility]In the event this information is protected by the Federal Confidentiality of Alcohol and Drug Abuse Patient Records regulations: The Federal rules restrict any use of the information to criminally investigate or prosecute any alcohol or drug abuse patient.[facility]In the event this information is protected by the Federal Confidentiality of Alcohol and Drug Abuse Patient Records regulations: The Federal rules restrict any use of the information to criminally investigate or prosecute any alcohol or drug abuse patient.[facility]In the event this information is protected by the Federal Confidentiality of Alcohol and Drug Abuse Patient Records regulations: The Federal rules restrict any use of the information to criminally investigate or prosecute any alcohol or drug abuse patient.[facility]In the event this information is protected by the Federal Confidentiality of Alcohol and Drug Abuse Patient Records regulations: The Federal rules restrict any use of the information to criminally investigate or prosecute any alcohol or drug abuse patient.[facility]In the event this information is protected by the Federal Confidentiality of Alcohol and Drug Abuse Patient Records regulations: The Federal rules restrict any use of the information to criminally investigate or prosecute any alcohol or drug abuse patient.[facility]In the event this information is protected by the Federal Confidentiality of Alcohol and Drug Abuse Patient Records regulations: The Federal rules restrict any use of the information to criminally investigate or prosecute any alcohol or drug abuse patient.[facility]In the event this information is protected by the Federal Confidentiality of Alcohol and Drug Abuse Patient Records regulations: The Federal rules restrict any use of the information to criminally investigate or prosecute any alcohol or drug abuse patient.[facility]In the event this information is protected by the Federal Confidentiality of Alcohol and Drug Abuse Patient Records regulations: The Federal rules restrict any use of the information to criminally investigate or prosecute any alcohol or drug abuse patient.[facility]In the event this information is protected by the Federal Confidentiality of Alcohol and Drug Abuse Patient Records regulations: The Federal rules restrict any use of the information to criminally investigate or prosecute any alcohol or drug abuse patient.[facility]In the event this information is protected by the Federal Confidentiality of Alcohol and Drug Abuse Patient Records regulations: The Federal rules restrict any use of the information to criminally investigate or prosecute any alcohol or drug abuse patient.[facility]In the event this information is protected by the Federal Confidentiality of Alcohol and Drug Abuse Patient Records regulations: The Federal rules restrict any use of the information to criminally investigate or prosecute any alcohol or drug abuse patient.[facility]In the event this information is protected by the Federal Confidentiality of Alcohol and Drug Abuse Patient Records regulations: The Federal rules restrict any use of the information to criminally investigate or prosecute any alcohol or drug abuse patient.[facility]In the event this information is protected by the Federal Confidentiality of Alcohol and Drug Abuse Patient Records regulations: The Federal rules restrict any use of the information to criminally investigate or prosecute any alcohol or drug abuse patient.[facility]In the event this information is protected by the Federal Confidentiality of Alcohol and Drug Abuse Patient Records regulations: The Federal rules restrict any use of the information to criminally investigate or prosecute any alcohol or drug abuse patient.[facility]In the event this information is protected by the Federal Confidentiality of Alcohol and Drug Abuse Patient Records regulations: The Federal rules restrict any use of the information to criminally investigate or prosecute any alcohol or drug abuse patient.[facility]In the event this information is protected by the Federal Confidentiality of Alcohol and Drug Abuse Patient Records regulations: The Federal rules restrict any use of the information to criminally investigate or prosecute any alcohol or drug abuse patient.[facility]In the event this information is protected by the Federal Confidentiality of Alcohol and Drug Abuse Patient Records regulations: The Federal rules restrict any use of the information to criminally investigate or prosecute any alcohol or drug abuse patient.[facility]In the event this information is protected by the Federal Confidentiality of Alcohol and Drug Abuse Patient Records regulations: The Federal rules restrict any use of the information to criminally investigate or prosecute any alcohol or drug abuse patient.[facility]In the event this information is protected by the Federal Confidentiality of Alcohol and Drug Abuse Patient Records regulations: The Federal rules restrict any use of the information to criminally investigate or prosecute any alcohol or drug abuse patient.[facility]In the event this information is protected by the Federal Confidentiality of Alcohol and Drug Abuse Patient Records regulations: The Federal rules restrict any use of the information to criminally investigate or prosecute any alcohol or drug abuse patient.[facility]In the event this information is protected by the Federal Confidentiality of Alcohol and Drug Abuse Patient Records regulations: The Federal rules restrict any use of the information to criminally investigate or prosecute any alcohol or drug abuse patient.[facility]In the event this information is protected by the Federal Confidentiality of Alcohol and Drug Abuse Patient Records regulations: The Federal rules restrict any use of the information to criminally investigate or prosecute any alcohol or drug abuse patient.[facility]In the event this information is protected by the Federal Confidentiality of Alcohol and Drug Abuse Patient Records regulations: The Federal rules restrict any use of the information to criminally investigate or prosecute any alcohol or drug abuse patient.[facility]In the event this information is protected by the Federal Confidentiality of Alcohol and Drug Abuse Patient Records regulations: The Federal rules restrict any use of the information to criminally investigate or prosecute any alcohol or drug abuse patient.[facility]In the event this information is protected by the Federal Confidentiality of Alcohol and Drug Abuse Patient Records regulations: The Federal rules restrict any use of the information to criminally investigate or prosecute any alcohol or drug abuse patient.[facility]In the event this information is protected by the Federal Confidentiality of Alcohol and Drug Abuse Patient Records regulations: The Federal rules restrict any use of the information to criminally investigate or prosecute any alcohol or drug abuse patient.[facility]In the event this information is protected by the Federal Confidentiality of Alcohol and Drug Abuse Patient Records regulations: The Federal rules restrict any use of the information to criminally investigate or prosecute any alcohol or drug abuse patient.[facility]In the event this information is protected by the Federal Confidentiality of Alcohol and Drug Abuse Patient Records regulations: The Federal rules restrict any use of the information to criminally investigate or prosecute any alcohol or drug abuse patient.[facility]In the event this information is protected by the Federal Confidentiality of Alcohol and Drug Abuse Patient Records regulations: The Federal rules restrict any use of the information to criminally investigate or prosecute any alcohol or drug abuse patient.[facility]In the event this information is protected by the Federal Confidentiality of Alcohol and Drug Abuse Patient Records regulations: The Federal rules restrict any use of the information to criminally investigate or prosecute any alcohol or drug abuse patient.[facility]bleIn the event this information is protected by the Federal Confidentiality of Alcohol and Drug Abuse Patient Records regulations: The Federal rules restrict any use of the information to criminally investigate or prosecute any alcohol or drug abuse patient.[facility]bleIn the event this information is protected by the Federal Confidentiality of Alcohol and Drug Abuse Patient Records regulations: The Federal rules restrict any use of the information to criminally investigate or prosecute any alcohol or drug abuse patient.[facility]bleIn the event this information is protected by the Federal Confidentiality of Alcohol and Drug Abuse Patient Records regulations: The Federal rules restrict any use of the information to criminally investigate or prosecute any alcohol or drug abuse patient.[facility]bleIn the event this information is protected by the Federal Confidentiality of Alcohol and Drug Abuse Patient Records regulations: The Federal rules restrict any use of the information to criminally investigate or prosecute any alcohol or drug abuse patient.[facility]bleIn the event this information is protected by the Federal Confidentiality of Alcohol and Drug Abuse Patient Records regulations: The Federal rules restrict any use of the information to criminally investigate or prosecute any alcohol or drug abuse patient.[facility]bleIn the event this information is protected by the Federal Confidentiality of Alcohol and Drug Abuse Patient Records regulations: The Federal rules restrict any use of the information to criminally investigate or prosecute any alcohol or drug abuse patient.[facility]bleIn the event this information is protected by the Federal Confidentiality of Alcohol and Drug Abuse Patient Records regulations: The Federal rules restrict any use of the information to criminally investigate or prosecute any alcohol or drug abuse patient.[facility] the event this information is protected by the Federal Confidentiality of Alcohol and Drug Abuse Patient Records regulations: The Federal rules restrict any use of the information to criminally investigate or prosecute any alcohol or drug abuse patient.[facility]bleIn the event this information is protected by the Federal Confidentiality of Alcohol and Drug Abuse Patient Records regulations: The Federal rules restrict any use of the information to criminally investigate or prosecute any alcohol or drug abuse patient.[facility]bleIn the event this information is protected by the Federal Confidentiality of Alcohol and Drug Abuse Patient Records regulations: The Federal rules restrict any use of the information to criminally investigate or prosecute any alcohol or drug abuse patient.[facility] the event this information is protected by the Federal Confidentiality of Alcohol and Drug Abuse Patient Records regulations: The Federal rules restrict any use of the information to criminally investigate or prosecute any alcohol or drug abuse patient.[facility]bleIn the event this information is protected by the Federal Confidentiality of Alcohol and Drug Abuse Patient Records regulations: The Federal rules restrict any use of the information to criminally investigate or prosecute any alcohol or drug abuse patient.[facility]In the event this information is protected by the Federal Confidentiality of Alcohol and Drug Abuse Patient Records regulations: The Federal rules restrict any use of the information to criminally investigate or prosecute any alcohol or drug abuse patient.[facility]In the event this information is protected by the Federal Confidentiality of Alcohol and Drug Abuse Patient Records regulations: The Federal rules restrict any use of the information to criminally investigate or prosecute any alcohol or drug abuse patient.[facility]In the event this information is protected by the Federal Confidentiality of Alcohol and Drug Abuse Patient Records regulations: The Federal rules restrict any use of the information to criminally investigate or prosecute any alcohol or drug abuse patient.[facility]In the event this information is protected by the Federal Confidentiality of Alcohol and Drug Abuse Patient Records regulations: The Federal rules restrict any use of the information to criminally investigate or prosecute any alcohol or drug abuse patient.[facility]In the event this information is protected by the Federal Confidentiality of Alcohol and Drug Abuse Patient Records regulations: The Federal rules restrict any use of the information to criminally investigate or prosecute any alcohol or drug abuse patient.[facility]In the event this information is protected by the Federal Confidentiality of Alcohol and Drug Abuse Patient Records regulations: The Federal rules restrict any use of the information to criminally investigate or prosecute any alcohol or drug abuse patient.[facility]In the event this information is protected by the Federal Confidentiality of Alcohol and Drug Abuse Patient Records regulations: The Federal rules restrict any use of the information to criminally investigate or prosecute any alcohol or drug abuse patient.[facility]In the event this information is protected by the Federal Confidentiality of Alcohol and Drug Abuse Patient Records regulations: The Federal rules restrict any use of the information to criminally investigate or prosecute any alcohol or drug abuse patient.[facility]In the event this information is protected by the Federal Confidentiality of Alcohol and Drug Abuse Patient Records regulations: The Federal rules restrict any use of the information to criminally investigate or prosecute any alcohol or drug abuse patient.[facility]In the event this information is protected by the Federal Confidentiality of Alcohol and Drug Abuse Patient Records regulations: The Federal rules restrict any use of the information to criminally investigate or prosecute any alcohol or drug abuse patient.[facility]In the event this information is protected by the Federal Confidentiality of Alcohol and Drug Abuse Patient Records regulations: The Federal rules restrict any use of the information to criminally investigate or prosecute any alcohol or drug abuse patient.[facility]In the event this information is protected by the Federal Confidentiality of Alcohol and Drug Abuse Patient Records regulations: The Federal rules restrict any use of the information to criminally investigate or prosecute any alcohol or drug abuse patient.[facility]In the event this information is protected by the Federal Confidentiality of Alcohol and Drug Abuse Patient Records regulations: The Federal rules restrict any use of the information to criminally investigate or prosecute any alcohol or drug abuse patient.[facility]In the event this information is protected by the Federal Confidentiality of Alcohol and Drug Abuse Patient Records regulations: The Federal rules restrict any use of the information to criminally investigate or prosecute any alcohol or drug abuse patient.[facility]In the event this information is protected by the Federal Confidentiality of Alcohol and Drug Abuse Patient Records regulations: The Federal rules restrict any use of the information to criminally investigate or prosecute any alcohol or drug abuse patient.[facility]In the event this information is protected by the Federal Confidentiality of Alcohol and Drug Abuse Patient Records regulations: The Federal rules restrict any use of the information to criminally investigate or prosecute any alcohol or drug abuse patient.[facility]In the event this information is protected by the Federal Confidentiality of Alcohol and Drug Abuse Patient Records regulations: The Federal rules restrict any use of the information to criminally investigate or prosecute any alcohol or drug abuse patient.[facility]In the event this information is protected by the Federal Confidentiality of Alcohol and Drug Abuse Patient Records regulations: The Federal rules restrict any use of the information to criminally investigate or prosecute any alcohol or drug abuse patient.[facility]In the event this information is protected by the Federal Confidentiality of Alcohol and Drug Abuse Patient Records regulations: The Federal rules restrict any use of the information to criminally investigate or prosecute any alcohol or drug abuse patient.[facility]In the event this information is protected by the Federal Confidentiality of Alcohol and Drug Abuse Patient Records regulations: The Federal rules restrict any use of the information to criminally investigate or prosecute any alcohol or drug abuse patient.[facility]In the event this information is protected by the Federal Confidentiality of Alcohol and Drug Abuse Patient Records regulations: The Federal rules restrict any use of the information to criminally investigate or prosecute any alcohol or drug abuse patient.[facility]In the event this information is protected by the Federal Confidentiality of Alcohol and Drug Abuse Patient Records regulations: The Federal rules restrict any use of the information to criminally investigate or prosecute any alcohol or drug abuse patient.[facility]In the event this information is protected by the Federal Confidentiality of Alcohol and Drug Abuse Patient Records regulations: The Federal rules restrict any use of the information to criminally investigate or prosecute any alcohol or drug abuse patient.[facility]In the event this information is protected by the Federal Confidentiality of Alcohol and Drug Abuse Patient Records regulations: The Federal rules restrict any use of the information to criminally investigate or prosecute any alcohol or drug abuse patient.[facility]In the event this information is protected by the Federal Confidentiality of Alcohol and Drug Abuse Patient Records regulations: The Federal rules restrict any use of the information to criminally investigate or prosecute any alcohol or drug abuse patient.[facility]In the event this information is protected by the Federal Confidentiality of Alcohol and Drug Abuse Patient Records regulations: The Federal rules restrict any use of the information to criminally investigate or prosecute any alcohol or drug abuse patient.[facility]In the event this information is protected by the Federal Confidentiality of Alcohol and Drug Abuse Patient Records regulations: The Federal rules restrict any use of the information to criminally investigate or prosecute any alcohol or drug abuse patient.[facility]In the event this information is protected by the Federal Confidentiality of Alcohol and Drug Abuse Patient Records regulations: The Federal rules restrict any use of the information to criminally investigate or prosecute any alcohol or drug abuse patient.[facility]In the event this information is protected by the Federal Confidentiality of Alcohol and Drug Abuse Patient Records regulations: The Federal rules restrict any use of the information to criminally investigate or prosecute any alcohol or drug abuse patient.[facility]In the event this information is protected by the Federal Confidentiality of Alcohol and Drug Abuse Patient Records regulations: The Federal rules restrict any use of the information to criminally investigate or prosecute any alcohol or drug abuse patient.[facility]In the event this information is protected by the Federal Confidentiality of Alcohol and Drug Abuse Patient Records regulations: The Federal rules restrict any use of the information to criminally investigate or prosecute any alcohol or drug abuse patient.[facility]In the event this information is protected by the Federal Confidentiality of Alcohol and Drug Abuse Patient Records regulations: The Federal rules restrict any use of the information to criminally investigate or prosecute any alcohol or drug abuse patient.[facility]In the event this information is protected by the Federal Confidentiality of Alcohol and Drug Abuse Patient Records regulations: The Federal rules restrict any use of the information to criminally investigate or prosecute any alcohol or drug abuse patient.[facility]In the event this information is protected by the Federal Confidentiality of Alcohol and Drug Abuse Patient Records regulations: The Federal rules restrict any use of the information to criminally investigate or prosecute any alcohol or drug abuse patient.[facility]In the event this information is protected by the Federal Confidentiality of Alcohol and Drug Abuse Patient Records regulations: The Federal rules restrict any use of the information to criminally investigate or prosecute any alcohol or drug abuse patient.[facility]In the event this information is protected by the Federal Confidentiality of Alcohol and Drug Abuse Patient Records regulations: The Federal rules restrict any use of the information to criminally investigate or prosecute any alcohol or drug abuse patient.[facility]In the event this information is protected by the Federal Confidentiality of Alcohol and Drug Abuse Patient Records regulations: The Federal rules restrict any use of the information to criminally investigate or prosecute any alcohol or drug abuse patient.[facility]In the event this information is protected by the Federal Confidentiality of Alcohol and Drug Abuse Patient Records regulations: The Federal rules restrict any use of the information to criminally investigate or prosecute any alcohol or drug abuse patient.[facility]In the event this information is protected by the Federal Confidentiality of Alcohol and Drug Abuse Patient Records regulations: The Federal rules restrict any use of the information to criminally investigate or prosecute any alcohol or drug abuse patient.[facility]In the event this information is protected by the Federal Confidentiality of Alcohol and Drug Abuse Patient Records regulations: The Federal rules restrict any use of the information to criminally investigate or prosecute any alcohol or drug abuse patient.[facility]In the event this information is protected by the Federal Confidentiality of Alcohol and Drug Abuse Patient Records regulations: The Federal rules restrict any use of the information to criminally investigate or prosecute any alcohol or drug abuse patient.[facility]In the event this information is protected by the Federal Confidentiality of Alcohol and Drug Abuse Patient Records regulations: The Federal rules restrict any use of the information to criminally investigate or prosecute any alcohol or drug abuse patient.[facility]In the event this information is protected by the Federal Confidentiality of Alcohol and Drug Abuse Patient Records regulations: The Federal rules restrict any use of the information to criminally investigate or prosecute any alcohol or drug abuse patient.[facility]In the event this information is protected by the Federal Confidentiality of Alcohol and Drug Abuse Patient Records regulations: The Federal rules restrict any use of the information to criminally investigate or prosecute any alcohol or drug abuse patient.[facility]In the event this information is protected by the Federal Confidentiality of Alcohol and Drug Abuse Patient Records regulations: The Federal rules restrict any use of the information to criminally investigate or prosecute any alcohol or drug abuse patient.[facility] the event this information is protected by the Federal Confidentiality of Alcohol and Drug Abuse Patient Records regulations: The Federal rules restrict any use of the information to criminally investigate or prosecute any alcohol or drug abuse patient.[facility]In the event this information is protected by the Federal Confidentiality of Alcohol and Drug Abuse Patient Records regulations: The Federal rules restrict any use of the information to criminally investigate or prosecute any alcohol or drug abuse patient.[facility]In the event this information is protected by the Federal Confidentiality of Alcohol and Drug Abuse Patient Records regulations: The Federal rules restrict any use of the information to criminally investigate or prosecute any alcohol or drug abuse patient.[facility] the event this information is protected by the Federal Confidentiality of Alcohol and Drug Abuse Patient Records regulations: The Federal rules restrict any use of the information to criminally investigate or prosecute any alcohol or drug abuse patient.[facility]In the event this information is protected by the Federal Confidentiality of Alcohol and Drug Abuse Patient Records regulations: The Federal rules restrict any use of the information to criminally investigate or prosecute any alcohol or drug abuse patient.[facility]In the event this information is protected by the Federal Confidentiality of Alcohol and Drug Abuse Patient Records regulations: The Federal rules restrict any use of the information to criminally investigate or prosecute any alcohol or drug abuse patient.[facility]In the event this information is protected by the Federal Confidentiality of Alcohol and Drug Abuse Patient Records regulations: The Federal rules restrict any use of the information to criminally investigate or prosecute any alcohol or drug abuse patient.[facility]In the event this information is protected by the Federal Confidentiality of Alcohol and Drug Abuse Patient Records regulations: The Federal rules restrict any use of the information to criminally investigate or prosecute any alcohol or drug abuse patient.[facility] Scheduled Active and Recently Administ ered Medications (unrecognized section and content) Medication Order 01/03/2022 01/04/2022 01/05/2022 diphenhydrAMINE (BENADRYL) tablet 25 mg (COMPLETED) 25 mg, Oral, ONCE, 1 dose, On Tue01/05/22 at 0057 0105 (Given - Provid er: Liliya Conway RN) predniSONE (DELTASONE) tablet 40 mg (COMPLETED) 40 mg, Oral, ONCE, 1 dose, On Tue01/05/22 at 0057 0106 (Given - Provid er: Liliya Conway RN) Scheduled Medication Order 02/28/2024 02/29/2024 03/01/2024 aspirin chewable tablet 324 mg (COMPLETED) 324 mg, Oral, Once, On Tue02/28/24 at 1745, For 1 dose 1757 (Given - Provider: Mary Galan RN) cyanocobalamin (Vitamin B-12) tablet 1,000 mcg 1,000 mcg, Oral, Daily, First dose on Tue03/01/24 at 1030 1213 (Given - Provider: Adrianna Bhardwaj, JEFFREY) ibuprofen tablet 600 mg (COMPLETED) 600 mg, Oral, Once, On Tue02/28/24 at 2345, For 1 dose 0007 (Given - Provider: Kodi Martinez RN) lactated ringers bolus 500 mL (CANCELED) 500 mL, IntraVENous, at 125 mL/hr, Administer over 4 Hours, Once, On Tue02/29/24 at 1915, For 1 dose 1905 (New Bag - Provider: Isak Robertson, RN)2305 (Stopped - Provider: Roro Santiago, RN) magnesium sulfate IVPB premix 2,000 mg (COMPLETED) 2,000 mg, IntraVENous, at 25 mL/hr, Administer over 2 Hours, Once, On Angie 03/01/24 at 0800, For 1 dose, Recommended infusion rate not to exceed 1,000 mg (milligrams) per hour. 0858 (New Bag - Provider: Adrianna Bhardwaj RN)1058 (Stopped - Provider: Adrianna Bhardwaj RN) pantoprazole (ProtoNix) 40 mg in sodium chloride (PF) 0.9 % 10 mL injection(Linked Group 1) 40 mg, IntraVENous, Administer over 2 Minutes, Nightly, First dose on Tue02/29/24 at 0000, Give only if unable to tolerate po. 0007 (See Alternative - Provider: Kodi Martinez RN)2042 (See Alternative - Provider: Devyn Foster, JEFFREY) pantoprazole (ProtoNix) EC tablet 40 mg(Linked Group 1) 40 mg, Oral, Nightly, First dose on Tue02/29/24 at 0000, Do not crush, chew, or split. 0007 (Given - Provider: Kodi Martinez, JEFFREY)2042 (Given - Provider: Devyn Foster, JEFFREY) sodium chloride 0.9 % bolus 1,000 mL (COMPLETED) 1,000 mL, IntraVENous, at 1,000 mL/hr, Administer over 1 Hours, Once, On Tue02/28/24 at 1745, For 1 dose 1757 (New Bag - Provider: Mary Galna RN)2002 (Stopped - Provider: Todd Evans RN) sodium chloride 0.9 % bolus 1,000 mL (COMPLETED) 1,000 mL, IntraVENous, at 1,000 mL/hr, Administer over 1 Hours, Once, On Tue02/29/24 at 1645, For 1 dose 1727 (New Bag - Provider: Isak Robertson, JEFFREY)1827 (Stopped - Provider: Isak Robertson RN) sodium chloride 0.9 % bolus 1,000 mL (COMPLETED) 1,000 mL, IntraVENous, at 1,000 mL/hr, Administer over 1 Hours, Once, On Tue02/29/24 at 2130, For 1 dose 2254 (New Bag - Provider: Roro Santiago, JEFFREY)2354 (Stopped - Provider: Roro Santiago RN) PRN Medication Order 02/28/2024 02/29/2024 03/01/2024 Acetaminophen (Tylenol) 650 MG/20.3ML solution 650 mg(Linked Group 2) 650 mg, Oral, Every 4 hours PRN, mild pain (1-3), Starting on Tue02/28/24 at 2324, Give oral liquid if patient prefers or per feeding tube if present. If inadequate response within 60 minutes, proceed to next-line agent for same PRN reason or contact provider if no further options ordered. acetaminophen (Tylenol) suppository 650 mg(Linked Group 2) 650 mg, Rectal, Every 4 hours PRN, mild pain (1-3), Starting on Tue02/28/24 at 2324, Give GA if unable to administer by mouth or feeding tube. If inadequate response within 60 minutes, proceed to next-line agent for same PRN reason or contact provider if no further options ordered. acetaminophen (Tylenol) tablet 650 mg(Linked Group 2) 650 mg, Oral, Every 4 hours PRN, mild pain (1-3), Starting on Tue02/28/24 at 2324, If inadequate response within 60 minutes, proceed to next-line agent for same PRN reason or contact provider if no further options ordered. ondansetron (Zofran) injection 4 mg(Linked Group 3) 4 mg, IntraVENous, Every 6 hours PRN, nausea, vomiting, Starting on Tue02/28/24 at 2324, Give IV if patient is unable to take orally. 1837 (Given - Provider: Arvin Robertson RN) ondansetron ODT (Zofran-ODT) disintegrating tablet 4 mg(Linked Group 3) 4 mg, Oral, Every 8 hours PRN, nausea, vomiting, Starting on Tue02/28/24 at 2324, Patient should allow tablet to dissolve on tongue. Do not remove from blister pack until just before administering. 1837 (See Alternative - Provider: Isak Robertson RN) Linked Groups Order Group 1: pantoprazole (ProtoNix) EC tablet 40 mgJump to med 40 mg, Oral, Nightly, First dose on Tue02/29/24 at 0000, Do not crush, chew, or split. Or pantoprazole (ProtoNix) 40 mg in sodium chloride (PF) 0.9 % 10 mL injectionJump to med 40 mg, IntraVENous, Administer over 2 Minutes, Nightly, First dose on Tue02/29/24 at 0000, Give only if unable to tolerate po. Group 2: acetaminophen (Tylenol) tablet 650 mgJump to med 650 mg, Oral, Every 4 hours PRN, mild pain (1-3), Starting on Tue02/28/24 at 2324, If inadequate response within 60 minutes, proceed to next-line agent for same PRN reason or contact provider if no further options ordered. Or Acetaminophen (Tylenol) 650 MG/20.3ML solution 650 mgJump to med 650 mg, Oral, Every 4 hours PRN, mild pain (1-3), Starting on Tue02/28/24 at 2324, Give oral liquid if patient prefers or per feeding tube if present. If inadequate response within 60 minutes, proceed to next-line agent for same PRN reason or contact provider if no further options ordered. Or acetaminophen (Tylenol) suppository 650 mgJump to med 650 mg, Rectal, Every 4 hours PRN, mild pain (1-3), Starting on Tue02/28/24 at 2324, Give GA if unable to administer by mouth or feeding tube. If inadequate response within 60 minutes, proceed to next-line agent for same PRN reason or contact provider if no further options ordered. Group 3: ondansetron ODT (Zofran-ODT) disintegrating tablet 4 mgJump to med 4 mg, Oral, Every 8 hours PRN, nausea, vomiting, Starting on Tue02/28/24 at 2324, Patient should allow tablet to dissolve on tongue. Do not remove from blister pack until just before administering. Or ondansetron (Zofran) injection 4 mgJump to med 4 mg, IntraVENous, Every 6 hours PRN, nausea, vomiting, Starting on Tue02/28/24 at 2324, Give IV if patient is unable to take orally. Care Teams (unrecognized sec tion and content) Pet Handler Relationship Specialty Start Date End Date Daniel Guerrero DO 1 [facility], 2nd Floor [place] [phone] PCP - General Family Medicine 02/10/23 Pet Handler Relationship Specialty Start Date End Date Daniel Guerrero DO 1 [facility], 2nd [place], [place] [phone] PCP - General Family Medicine 02/10/23 Pet Handler Relationship Specialty Start Date End Date Daniel Guerrero DO 1 [facility] 2nd [place], [place] [phone] PCP - General Family Medicine 02/10/23 Pet Handler Relationship Specialty Start Date End Date Daniel Guerreor DO 1 [facility], [address] [place] [phone] PCP - General Family Medicine 02/10/23 Pet Handler Relationship Specialty Start Date End Date Daniel Guerrero DO [address] [phone] PCP - General Family Medicine 02/10/23 Pet Handler Relationship Specialty Start Date End Date Boubacar Sky, MARCO.HORSE SHOER [address] [place] [address] PCP - General Family Medicine 02/16/24 Shar Manzanares DO [address] [place], [place] [phone] PCP Resident Family Medicine 12/13/23 Pet Handler Relationship Specialty Start Date End Date Boubacar Sky, 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.HORSE SHOER [address] [place] [address] PCP - General Family Medicine 02/16/24 Shar Manzanares DO [address]r [facility], [place] [phone] PCP Resident Family Medicine 12/13/23 Pet Handler Relationship Specialty Start Date End Date Boubacar Sky APRN.HORSE SHOER [address] [place] [address] PCP - General Family Medicine 02/16/24 Pet Handler Relationship Specialty Start Date End Date Boubacar Sky APRN - HORSE SHOER [address] [place] [address] PCP - General Nurse Practitioner 02/28/24 Pet Handler Relationship Specialty Start Date End Date Boubacar Sky APRN - HORSE SHOER [address] [place] [address] PCP - General Nurse Practitioner 02/28/24 Pet Handler Relationship Specialty Start Date End Date Boubacar Sky APRN.HORSE SHOER [address] [place] [address] PCP - General Family Medicine 02/16/24 Shar Manzanares DO [address] [place] [address] PCP Resident Family Medicine 12/13/23 02/18/24 Boubacar Sky APRN.HORSE SHOER [address] [place] [address] Referring Family Medicine 02/24/24 Pet Handler Relationship Specialty Start Date End Date Boubacar Sky APRN - HORSE SHOER [address] [place] [address] PCP - General Nurse Practitioner 02/28/24 Pet Handler Relationship Specialty Start Date End Date Boubacar Sky, 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.HORSE SHOER [address] [place] [facility] [address] PCP - General Family Medicine 02/16/24 Babatunde Skyin, 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.HORSE SHOER [address] [place] [address] Referring Family Medicine 02/24/24 Pet Handler Relationship Specialty Start Date End Date Babatunde Skyin, 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.HORSE SHOER [address] [place] [place] [address] PCP - General Family Medicine 02/16/24 Babatunde Skyin, 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.HORSE SHOER [address] [place] [address] Referring Family Medicine 02/24/24 Pet Handler Relationship Specialty Start Date End Date Boubacar Sky, 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 - HORSE SHOER [address] [place] [place] [address] PCP - General Nurse Practitioner 02/28/24 Pet Handler Relationship Specialty Start Date End Date Babatunde Skyin, 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 - HORSE SHOER [address] [place] [place] [place] [address] PCP - General Nurse Practitioner 02/28/24 Pet Handler Relationship Specialty Start Date End Date Boubacar Sky, 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.HORSE SHOER [address] [place] [address] PCP - General Family Medicine 02/16/24 Boubacar Sky APRN.HORSE SHOER [address] [place] [address] Referring Family Medicine 02/24/24 Pet Handler Relationship Specialty Start Date End Date Boubacar Sky 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.HORSE SHOER [address] [place] [address] PCP - General Family Medicine 02/16/24 Boubacar Sky APRN.HORSE SHOER [address] [place] [address] Referring Family Medicine 02/24/24 Pet Handler Relationship Specialty Start Date End Date Daniel Guerrero DO [address] [place] [address], 2nd [place] [address] PCP - General Family Medicine 02/10/23 12/12/23 Pet Handler Relationship Specialty Start Date End Date Boubacar Sky APRN - HORSE SHOER [address] [place] [address] PCP - General Nurse Practitioner 02/28/24 Pet Handler Relationship Specialty Start Date End Date Boubacar Sky, 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.HORSE SHOER [address] [place] [address] PCP - General Family Medicine 02/16/24 Boubacar Sky, MARCO.HORSE SHOER [address] [place] [address] Referring Family Medicine 02/24/24 Pet Handler Relationship Specialty Start Date End Date Babatunde Skyin, 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.HORSE SHOER [address] [place] [address] PCP - General Family Medicine 02/16/24 Boubacar Sky, 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.HORSE SHOER [address] [place] [address] Referring Family Medicine 02/24/24 Pet Handler Relationship Specialty Start Date End Date Boubacar Sky, 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.HORSE SHOER [address] [place] [address] PCP - General Family Medicine 02/16/24 Babatunde Skyin, 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.HORSE SHOER [address] [place] [address] Referring Family Medicine 02/24/24 Pet Handler Relationship Specialty Start Date End Date Boubacar Sky, 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.HORSE SHOER [address] [place] [address] PCP - General Family Medicine 02/16/24 Boubacar Sky, 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.HORSE SHOER [address] [place] [address] Referring Family Medicine 02/24/24 Pet Handler Relationship Specialty Start Date End Date Boubacar Sky, 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.HORSE SHOER [address] [place] [address] PCP - General Family Medicine 02/16/24 Boubacar Sky, 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.HORSE SHOER [address] [place] [address] Referring Family Medicine 02/24/24 Pet Handler Relationship Specialty Start Date End Date Boubacar Sky, 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.HORSE SHOER [address] [place] [place] [address] PCP - General Family Medicine 02/16/24 Boubacar Sky, 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.HORSE SHOER [address] [place] [place] [place] [address] Referring Family Medicine 02/24/24 Pet Handler Relationship Specialty Start Date End Date Boubacar Sky, 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.HORSE SHOER [address] [place] [place] [place] [address] PCP - General Family Medicine 02/16/24 Babatunde Skyin, 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.HORSE SHOER [address] [place] [address] Referring Family Medicine 02/24/24 Pet Handler Relationship Specialty Start Date End Date Babatunde Skyin, 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 - HORSE SHOER [address] [place] [place] [address] PCP - General Nurse Practitioner 02/28/24 Pet Handler Relationship Specialty Start Date End Date Boubacar Sky, 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.HORSE SHOER [address] [place] [address] PCP - General Family Medicine 02/16/24 Boubacar Sky, 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.HORSE SHOER [address] [place] [address] Referring Family Medicine 02/24/24 Pet Handler Relationship Specialty Start Date End Date Boubacar Sky APRN - HORSE SHOER [address] [place] [address] PCP - General Nurse Practitioner 02/28/24 Pet Handler Relationship Specialty Start Date End Date Boubacar Sky 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.HORSE SHOER [address] [place] [address] PCP - General Family Medicine 02/16/24 Boubacar Sky 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.HORSE SHOER [address] [place] [address] Referring Family Medicine 02/24/24 Pet Handler Relationship Specialty Start Date End Date Boubacar Sky 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.HORSE SHOER [address] [place] [address] PCP - General Family Medicine 02/16/24 Boubacar Sky APRN.HORSE SHOER [address] [place] [address] Referring Family Medicine 02/24/24 Pet Handler Relationship Specialty Start Date End Date Boubacar Sky, 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.HORSE SHOER [address] [place] [address] PCP - General Family Medicine 02/16/24 Boubacar Sky APRN.HORSE SHOER [address] [place] [address] Referring Family Medicine 02/24/24 Pet Handler Relationship Specialty Start Date End Date Boubacar Sky 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 - HORSE SHOER [address] [place] [place] [address] PCP - General Nurse Practitioner 02/28/24 Pet Handler Relationship Specialty Start Date End Date Babatunde Skyin, 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.HORSE SHOER [address] [place] [place] [place] [address] PCP - General Family Medicine 02/16/24 [facility] 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.HORSE SHOER [address] [place] [place] [address] Referring Family Medicine 02/24/24 Pet Handler Relationship Specialty Start Date End Date JulietBabatunde morganin, 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.HORSE SHOER [address] [place] [address] PCP - General Family Medicine 02/16/24 [facility], 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.HORSE SHOER [address] [place] [address] Referring Family Medicine 02/24/24 Pet Handler Relationship Specialty Start Date End Date Babatunde Skyin, 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.HORSE SHOER [address] [place] [address] PCP - General Family Medicine 02/16/24 Babatunde Skyin, 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.HORSE SHOER [address] [place] [address] Referring Family Medicine 02/24/24 Pet Handler Relationship Specialty Start Date End Date Babatunde Skyin, 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.HORSE SHOER [address] [place] [address] PCP - General Family Medicine 02/16/24 Boubacar Sky APRN.HORSE SHOER [address] [place] [address] Referring Family Medicine 02/24/24 Pet Handler Relationship Specialty Start Date End Date Daniel Guerrero MD [address] [place] [phone] PCP - General General Surgery 05/21/24 Boubacar Sky APRN.HORSE SHOER [facility] [place] [phone] Referring Family Medicine 02/24/24 Pet Handler Relationship Specialty Start Date End Date Daniel Guerrero MD [address] [place] [phone] PCP - General General Surgery 05/21/24 Boubacar Sky APRN.HORSE SHOER [facility] [place] [address] Referring Family Medicine 02/24/24 Ramses Pyle MD [address] [facility] [address] [place] [phone] Cardiology 05/26/24 Pet Handler Relationship Specialty Start Date End Date Daniel Guerrero DO [facility] [place] [address] PCP - General Family Medicine 06/05/24 Boubacar Sky APRN.HORSE SHOER [address] [place] [address] Referring Family Medicine 02/24/24 Ramses Pyle MD [address] [phone] Cardiology 05/26/24 Pet Handler Relationship Specialty Start Date End Date Daniel Guerrero DO [address] [place] [address] PCP - General Family Medicine 06/05/24 Boubacar Sky APRN.HORSE SHOER [facility] [place] [address] Referring Family Medicine 02/24/24 Ramses Pyle MD [address] [phone] Cardiology 05/26/24 Pet Handler Relationship Specialty Start Date End Date Daniel Guerrero DO [address] [place] [address] PCP - General Family Medicine 06/05/24 Boubacar Sky APRN.HORSE SHOER [address] [place] [address] Referring Family Medicine 02/24/24 Ramses Pyle MD [address] [phone] Cardiology 05/26/24 Pet Handler Relationship Specialty Start Date End Date Daniel Guerrero DO [address] [place] [address] PCP - General Family Medicine 06/05/24 Boubacar Sky APRN.HORSE SHOER [address] [place] [address] Referring Family Medicine 02/24/24 Ramses Pyle MD [address] [phone] Cardiology 05/26/24 Pet Handler Relationship Specialty Start Date End Date Daniel Guerrero DO [address] [place] [address] PCP - General Family Medicine 06/05/24 Boubacar Sky APRN.HORSE SHOER [facility] [place] [address] Referring Family Medicine 02/24/24 Ramses Pyle MD [address] [phone] Cardiology 05/26/24 Pet Handler Relationship Specialty Start Date End Date Daniel Guerrero DO [address] [place] [address] PCP - General Family Medicine 06/05/24 Boubacar Sky 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.HORSE SHOER [address] [place] [address] Referring Family Medicine 02/24/24 Ramses Pyle MD [address] [phone] Cardiology 05/26/24 Pet Handler Relationship Specialty Start Date End Date Daniel Guerrero DO [address] [place] [address] PCP - General Family Medicine 06/05/24 Boubacar Sky APRN.HORSE SHOER [facility] [place] [address] Referring Family Medicine 02/24/24 Ramses Pyle MD [address] [phone] Cardiology 05/26/24 Pet Handler Relationship Specialty Start Date End Date Daniel Guerrero DO [address] [place] [address] PCP - General Family Medicine 06/05/24 Boubacar Sky APRN.HORSE SHOER [address] [place] [address] Referring Family Medicine 02/24/24 Ramses Pyle MD [address] [phone] Cardiology 05/26/24 Pet Handler Relationship Specialty Start Date End Date Daniel Guerrero DO [address] [place], [place] [id number] PCP - General Family Medicine 06/05/24 Boubacar Sky APRN.HORSE SHOER [address] [place] [address] Referring Family Medicine 02/24/24 Ramses Pyle MD [address] [phone] Cardiology 05/26/24 Pet Handler Relationship Specialty Start Date End Date Daniel Guerrero DO [address] [place], [place] [id number] PCP - General Family Medicine 06/05/24 Boubacar Sky APRN.HORSE SHOER [facility] [place] [address] Referring Family Medicine 02/24/24 Ramses Pyle MD [address] [phone] Cardiology 05/26/24 Pet Handler Relationship Specialty Start Date End Date Daniel Guerrero DO [facility]0 [place], [place] [id number] PCP - General Family Medicine 06/05/24 Boubacar Sky APRN.HORSE SHOER [facility] [place] [address] Referring Family Medicine 02/24/24 Ramses Pyle MD [address] [phone] Cardiology 05/26/24 Pet Handler Relationship Specialty Start Date End Date Daniel Guerrero DO [address] [place], [place] [phone] PCP - General Family Medicine 06/05/24 Boubacar Sky APRN.HORSE SHOER [address] [place] [address] Referring Family Medicine 02/24/24 Ramses Pyle MD [address] [phone] Cardiology 05/26/24 Pet Handler Relationship Specialty Start Date End Date Daniel Guerrero DO [address] [place], [place] [id number] PCP - General Family Medicine 06/05/24 Boubacar Sky APRN.HORSE SHOER [address] [place] [phone] Referring Family Medicine 02/24/24 Ramses Pyle MD [address] [phone] Cardiology 05/26/24 Pet Handler Relationship Specialty Start Date End Date Daniel Guerrero DO [address] [place] [address] PCP - General Family Medicine 06/05/24 Boubacar Sky APRN.HORSE SHOER [address] [place], [place] [address] Referring Family Medicine 02/24/24 Ramses Pyle MD [address] [phone] Cardiology 05/26/24 Pet Handler Relationship Specialty Start Date End Date Daniel Guerrero DO [address] [place], [place] [id number] PCP - General Family Medicine 06/05/24 Boubacar Sky APRN.HORSE SHOER [facility] [place] [address] Referring Family Medicine 02/24/24 Ramses Pyle MD [address] [facility] [address] [place] [phone] Cardiology 05/26/24 Pet Handler Relationship Specialty Start Date End Date Daniel Guerrero DO [address] [place] [address] PCP - General Family Medicine 06/05/24 Boubacar Sky, 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.HORSE SHOER [address] [place] [address] Referring Family Medicine 02/24/24 Ramses Pyle MD [address] [facility] [address] [place] [phone] Cardiology 05/26/24 Pet Handler Relationship Specialty Start Date End Date Daniel Guerrero DO [facility] [place] [address] PCP - General Family Medicine 06/05/24 Boubacar Sky 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.HORSE SHOER [facility] [place] [address] Referring Family Medicine 02/24/24 Ramses Pyle MD [address] [phone] Cardiology 05/26/24 Pet Handler Relationship Specialty Start Date End Date Daniel Guerrero DO [address] [place] [address] PCP - General Family Medicine 06/05/24 Boubacar Sky APRN.HORSE SHOER [address] [place] [address] Referring Family Medicine 02/24/24 Ramses Pyle MD [address] [phone] Cardiology 05/26/24 Pet Handler Relationship Specialty Start Date End Date Daniel Guerrero DO [address] [place] [address] PCP - General Family Medicine 06/05/24 Boubacar Sky APRN.HORSE SHOER [address] [place] [address] Referring Family Medicine 02/24/24 Ramses Pyle MD [address] [phone] Cardiology 05/26/24 Pet Handler Relationship Specialty Start Date End Date Daniel Guerrero DO [address] [place] [address] PCP - General Family Medicine 06/05/24 Boubacar Sky APRN.HORSE SHOER [address] [place] [address] Referring Family Medicine 02/24/24 Ramses Pyle MD [address] [phone] Cardiology 05/26/24 Pet Handler Relationship Specialty Start Date End Date Daniel Guerrero DO [address] [place] [address] PCP - General Family Medicine 06/05/24 Boubacar Sky APRN.HORSE SHOER [address] [place] [address] Referring Family Medicine 02/24/24 Ramses Pyle MD [address] [phone] Cardiology 05/26/24 Pet Handler Relationship Specialty Start Date End Date Daniel Guerrero DO [facility] [place] [address] PCP - General Family Medicine 06/05/24 Boubacar Sky APRN.HORSE SHOER [facility] [place] [address] Referring Family Medicine 02/24/24 Ramses Pyle MD [address] [phone] Cardiology 05/26/24 Pet Handler Relationship Specialty Start Date End Date Daniel Guerrero DO [address] [place] [address] PCP - General Family Medicine 06/05/24 Boubacar Sky APRN.HORSE SHOER [address] [place] [phone] Referring Family Medicine 02/24/24 Ramses Pyle MD [address] [phone] Cardiology 05/26/24 Pet Handler Relationship Specialty Start Date End Date Daniel Guerrero DO [address] [place] [address] PCP - General Family Medicine 06/05/24 Boubacar Sky APRN.HORSE SHOER [address] [place] [address] Referring Family Medicine 02/24/24 Ramses Pyle MD [address] [phone] Cardiology 05/26/24 Pet Handler Relationship Specialty Start Date End Date Daniel Guerrero DO [address] [place] [address] PCP - General Family Medicine 06/05/24 Boubacar Sky APRN.HORSE SHOER [facility] [place] [phone] Referring Family Medicine 02/24/24 Ramses Pyle MD [address] [phone] Cardiology 05/26/24 Pet Handler Relationship Specialty Start Date End Date Daniel Guerrero DO [address] [place], [place] [phone] PCP - General Family Medicine 06/05/24 Boubacar Sky APRN.HORSE SHOER [address] [place] [address] Referring Family Medicine 02/24/24 Ramses Pyle MD [address] [phone] Cardiology 05/26/24 Pet Handler Relationship Specialty Start Date End Date Daniel Guerrero DO [address] [place] [address] [id number] PCP - General Family Medicine 06/05/24 Boubacar Sky APRN.HORSE SHOER [address] [place] [address] Referring Family Medicine 02/24/24 Ramses Pyle MD [address] [phone] Cardiology 05/26/24 Pet Handler Relationship Specialty Start Date End Date Daniel Guerrero DO [address] [place] [address] [id number] PCP - General Family Medicine 06/05/24 Boubacar Sky APRN.HORSE SHOER [address] [place] [address] Referring Family Medicine 02/24/24 Ramses Pyle MD [address] [phone] Cardiology 05/26/24 Pet Handler Relationship Specialty Start Date End Date Daniel Guerrero DO [address] [place], [place] [phone] PCP - General Family Medicine 06/05/24 Boubacar Sky APRN.HORSE SHOER [address] [place] [address] Referring Family Medicine 02/24/24 Ramses Pyle MD [address] [phone] Cardiology 05/26/24 Pet Handler Relationship Specialty Start Date End Date Daniel Guerrero DO [address] [place], [place] [phone] PCP - General Family Medicine 06/05/24 Boubacar Sky APRN.HORSE SHOER [address] [place] [address] Referring Family Medicine 02/24/24 Ramses Pyle MD [address] [phone] Cardiology 05/26/24 Pet Handler Relationship Specialty Start Date End Date Daniel Guerrero DO [address] [place], [place] [phone] PCP - General Family Medicine 06/05/24 Boubacar Sky, 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.HORSE SHOER [address] [place] [address] Referring Family Medicine 02/24/24 Ramses Pyle MD [address] [facility] [address] [place] [address] [phone] Cardiology 05/26/24 Pet Handler Relationship Specialty Start Date End Date Daniel Guerrero DO [address] [place], [place] [phone] PCP - General Family Medicine 06/05/24 Boubacar Sky, MARCO.HORSE SHOER [address] [place] [address] Referring Family Medicine 02/24/24 Ramses Pyle MD [address] [phone] Cardiology 05/26/24 Pet Handler Relationship Specialty Start Date End Date Daniel Guerrero DO [address] [place], [place] [phone] PCP - General Family Medicine 06/05/24 Boubacar Sky, 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.HORSE SHOER [address] [place], [place] [address]103 Referring Family Medicine 02/24/24 Ramses Pyle MD [address] [facility] [address] [place] [phone] Cardiology 05/26/24 Pet Handler Relationship Specialty Start Date End Date Daniel Guerrero DO [address] [place], [place] [id number] PCP - General Family Medicine 06/05/24 Boubacar Sky APRN.HORSE SHOER [address] [place] [address] Referring Family Medicine 02/24/24 Ramses Pyle MD [address] [facility] [address] [place] [phone] Cardiology 05/26/24 Pet Handler Relationship Specialty Start Date End Date Daniel Guerrero DO [address] [place] [address] PCP - General Family Medicine 06/05/24 Boubacar Sky 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.HORSE SHOER [address] [place] [address] Referring Family Medicine 02/24/24 Ramses Pyle MD [address] [facility] [address] [place] [phone] Cardiology 05/26/24 Pet Handler Relationship Specialty Start Date End Date Daniel Guerrero DO [address] [place] [address] PCP - General Family Medicine 06/05/24 Boubacar Sky APRN.HORSE SHOER [address] [place] [address] Referring Family Medicine 02/24/24 Ramses Pyle MD [address] [phone] Cardiology 05/26/24 Pet Handler Relationship Specialty Start Date End Date Daniel Guerrero DO [address] [place] [address] PCP - General Family Medicine 06/05/24 Boubacar Sky APRN.HORSE SHOER [address] [place] [address] Referring Family Medicine 02/24/24 Ramses Pyle MD [address] [phone] Cardiology 05/26/24 Pet Handler Relationship Specialty Start Date End Date Daniel Guerrero DO [facility] [place] [address] PCP - General Family Medicine 06/05/24 Boubacar Sky APRN.HORSE SHOER [address] [place] [address] Referring Family Medicine 02/24/24 Ramses Pyle MD [address] [phone] Cardiology 05/26/24 Pet Handler Relationship Specialty Start Date End Date Daniel Guerrero DO [address] [place] [address] PCP - General Family Medicine 06/05/24 Boubacar Sky APRN.HORSE SHOER [address] [place] [address] Referring Family Medicine 02/24/24 Ramses Pyle MD [address] [phone] Cardiology 05/26/24 Pet Handler Relationship Specialty Start Date End Date Daniel Guerrero DO [address] [place] [address] PCP - General Family Medicine 06/05/24 Boubacar Sky APRN.HORSE SHOER [address] [place] [address] Referring Family Medicine 02/24/24 Ramses Pyle MD [address] [phone] Cardiology 05/26/24 Pet Handler Relationship Specialty Start Date End Date Daniel Guerrero DO [address] [place] [address] PCP - General Family Medicine 06/05/24 Boubacar Sky APRN.HORSE SHOER [address] [place] [address] Referring Family Medicine 02/24/24 Ramses Pyle MD [address] [phone] Cardiology 05/26/24 Pet Handler Relationship Specialty Start Date End Date Daniel Guerrero DO [address] [place] [address] PCP - General Family Medicine 06/05/24 Boubacar Sky APRN.HORSE SHOER [address] [place] [address] Referring Family Medicine 02/24/24 Ramses Pyle MD [address] [phone] Cardiology 05/26/24 Pet Handler Relationship Specialty Start Date End Date Daniel Guerrero DO [address] [place] [address] PCP - General Family Medicine 06/05/24 Boubacar Sky APRN.HORSE SHOER [facility] [place] [address] Referring Family Medicine 02/24/24 Ramses Pyle MD [address] [phone] Cardiology 05/26/24 Pet Handler Relationship Specialty Start Date End Date Daniel Guerrero DO [address] [place] [address] PCP - General Family Medicine 06/05/24 Boubacar Sky APRN.HORSE SHOER [address] [place], [place] [address] Referring Family Medicine 02/24/24 Ramses Pyle MD [address] [phone] Cardiology 05/26/24 Pet Handler Relationship Specialty Start Date End Date Daniel Guerrero DO [address] [place], [place] [id number] PCP - General Family Medicine 06/05/24 Boubacar Sky APRN.HORSE SHOER [address] [place] [address] Referring Family Medicine 02/24/24 Rasmes Pyle MD [address] [phone] (Fax) Cardiology 05/26/24 Aashish Skinner, JEFFREY Primary Care Drill Sharpener 10/08/24 [facility] 10/08/24 11/07/24 Pet Handler Relationship Specialty Start Date End Date Daniel Guerrero DO [address] [place], [place] [id number] PCP - General Family Medicine 06/05/24 Boubacar Sky APRN.HORSE SHOER [facility] [place] [address] Referring Family Medicine 02/24/24 Ramses Pyle MD [address] [phone] (Fax) Cardiology 05/26/24 Pet Handler Relationship Specialty Start Date End Date Daniel Guerrero DO [address] [place], [place] [id number] PCP - General Family Medicine 06/05/24 Boubacar Sky APRN.HORSE SHOER [address] [place] [address] Referring Family Medicine 02/24/24 Ramses Pyle MD [address] [phone] Cardiology 05/26/24 Aashish Skinner, JEFFREY Primary Care Drill Sharpener 10/08/24 Hanna Flores [facility] Transitional Care Pharmacist Pharmacy 10/08/24 11/07/24 Pet Handler Relationship Specialty Start Date End Date Daniel Guerrero DO [address] [place] [phone] PCP - General Family Medicine 06/05/24 Boubacar Sky APRN.HORSE SHOER [address] [place] [address] Referring Family Medicine 02/24/24 Ramses Pyle MD [address] [phone] Cardiology 05/26/24 Aashish Skinner RN Primary Care Drill Sharpener 10/08/24 Hanna Flores [facility] Transitional Care Pharmacist Pharmacy 10/08/24 11/07/24 Pet Handler Relationship Specialty Start Date End Date Daniel Guerrero DO [facility] [place] [address] PCP - General Family Medicine 06/05/24 Boubacar Sky APRN.HORSE SHOER [address] [place] [address] Referring Family Medicine 02/24/24 Ramses Pyle MD [address] [phone] Cardiology 05/26/24 Aashish Skinner, JEFFREY Primary Care Drill Sharpener 10/08/24 [facility] 10/08/24 11/07/24 Pet Handler Relationship Specialty Start Date End Date Daniel Guerrero DO [facility] [place], [place] [id number] PCP - General Family Medicine 06/05/24 Boubacar Sky APRN.HORSE SHOER [address] [place], [place] [id number] Referring Family Medicine 02/24/24 Ramses Pyle MD [address] [phone] Cardiology 05/26/24 Aashish Skinner RN Primary Care Drill Sharpener 10/08/24 Hanna Flores [facility] Transitional Care Pharmacist Pharmacy 10/08/24 11/07/24 Pet Handler Relationship Specialty Start Date End Date Daniel Guerrero DO [address] [place] [address] PCP - General Family Medicine 06/05/24 Boubacar Sky APRN.HORSE SHOER [facility] [place] [address] Referring Family Medicine 02/24/24 Ramses Pyle MD [address] [phone] Cardiology 05/26/24 Aashish Skinner, JEFFREY Primary Care Drill Sharpener 10/08/24 [facility] 10/08/24 11/07/24 Pet Handler Relationship Specialty Start Date End Date Daniel Guerrero DO [address] [place], [place] [phone] PCP - General Family Medicine 06/05/24 Boubacar Sky, 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.HORSE SHOER [address] [place], [place] [address] Referring Family Medicine 02/24/24 Ramses Pyle MD [address] [phone] Cardiology 05/26/24 Aashish Skinner, JEFFREY Primary Care Drill Sharpener 10/08/24 [facility] 10/08/24 11/07/24 Pet Handler Relationship Specialty Start Date End Date Daniel Guerrero DO [address] [place] [address] PCP - General Family Medicine 06/05/24 Boubacar Sky, 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.HORSE SHOER [address] [place] [address] Referring Family Medicine 02/24/24 Ramses Pyle MD [address] [phone] Cardiology 05/26/24 Aashish Skinner RN Primary Care Drill Sharpener 10/08/24 [facility] 10/08/24 11/07/24 Pet Handler Relationship Specialty Start Date End Date Daniel Guerrero DO [address] [place], [place] [id number] PCP - General Family Medicine 06/05/24 Boubacar Sky, MARCO.HORSE SHOER [address] [place] [phone] Referring Family Medicine 02/24/24 Ramses Pyle MD [address] [phone] Cardiology 05/26/24 Aashish Skinner RN Primary Care Drill Sharpener 10/08/24 [facility] 10/08/24 11/07/24 Pet Handler Relationship Specialty Start Date End Date Daniel Guerrero DO [address] [place] [address] PCP - General Family Medicine 06/05/24 Boubacar Sky, 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.HORSE SHOER [address] [place], [place] [address] Referring Family Medicine 02/24/24 Ramses Pyle MD [address] [phone] Cardiology 05/26/24 Aashish Skinner RN Primary Care Drill Sharpener 10/08/24 Hanna Flores [facility] Transitional Care Pharmacist Pharmacy 10/08/24 11/07/24 Pet Handler Relationship Specialty Start Date End Date Daniel Guerrero DO [address] [place] [address] PCP - General Family Medicine 06/05/24 Boubacar Sky, 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.HORSE SHOER [address] [place] [address] Referring Family Medicine 02/24/24 Ramses Pyle MD [address] [phone] (Fax) Cardiology 05/26/24 Aashish Skinner RN Primary Care Drill Sharpener 10/08/24 Hanna Flores [facility] Transitional Care Pharmacist Pharmacy 10/08/24 11/07/24 Pet Handler Relationship Specialty Start Date End Date Daniel Guerrero DO [address] [place] [address] PCP - General Family Medicine 06/05/24 Boubacar Sky, 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.HORSE SHOER [address] [place], [place] [address] Referring Family Medicine 02/24/24 Ramses Pyle MD [address] [phone] Cardiology 05/26/24 Aashish Skinner RN Primary Care Drill Sharpener 10/08/24 Hanna Flores [facility] Transitional Care Pharmacist Pharmacy 10/08/24 11/07/24 Pet Handler Relationship Specialty Start Date End Date Daniel Guerrero DO [address] [place] [address] PCP - General Family Medicine 06/05/24 Boubacar Sky APRN.HORSE SHOER [address] [place] [address] Referring Family Medicine 02/24/24 Ramses Pyle MD [address] [phone] Cardiology 05/26/24 Aashish Skinner RN Primary Care Drill Sharpener 10/08/24 [facility] 10/08/24 11/07/24 Pet Handler Relationship Specialty Start Date End Date Daniel Guerrero DO [address] [place] [address] PCP - General Family Medicine 06/05/24 Boubacar Sky APRN.HORSE SHOER [address] [place] [phone] Referring Family Medicine 02/24/24 Ramses Pyle MD [address] [phone] Cardiology 05/26/24 Aashish Skinner RN Primary Care Drill Sharpener 10/08/24 11/06/24 [facility] 10/08/24 11/07/24 Pet Handler Relationship Specialty Start Date End Date Daniel Guerrero DO [address] [place], [place] [phone] PCP - General Family Medicine 06/05/24 Boubacar Sky, MARCO.HORSE SHOER [address] [place] [address] Referring Family Medicine 02/24/24 Ramses Pyle MD [address] [phone] Cardiology 05/26/24 Hanna Flores [facility] Transitional Care Pharmacist Pharmacy 10/08/24 11/07/24 Pet Handler Relationship Specialty Start Date End Date Daniel Guerrero DO [address] [place] [address] PCP - General Family Medicine 06/05/24 Boubacar Sky, BASE WAD OPERATOR ADJUSTER.HORSE SHOER [address] [place] [address] Referring Family Medicine 02/24/24 Ramses Pyle MD [address] [phone] Cardiology 05/26/24 Aashish Skinner, JEFFREY Primary Care Drill Sharpener 10/08/24 11/06/24 [facility] 10/08/24 11/07/24 Pet Handler Relationship Specialty Start Date End Date Daniel Guerrero DO [address] [place], [place] [phone] PCP - General Family Medicine 06/05/24 Boubacar Sky APRN.HORSE SHOER [address] [place] [address] Referring Family Medicine 02/24/24 Ramses Pyle MD [address] [phone] Cardiology 05/26/24 Pet Handler Relationship Specialty Start Date End Date Daniel Guerrero DO [address] [place] [address] PCP - General Family Medicine 06/05/24 Boubacar Sky APRN.HORSE SHOER [address] [place], [place] [address] Referring Family Medicine 02/24/24 Ramses Pyle MD [address] [phone] Cardiology 05/26/24 Aashish Skinner, RN Primary Care Drill Sharpener 10/08/24 11/06/24 [facility] 10/08/24 11/07/24 Pet Handler Relationship Specialty Start Date End Date Daniel Guerrero DO [facility] [place] [address] PCP - General Family Medicine 06/05/24 Boubacar Sky APRN.HORSE SHOER [address] [place] [address] Referring Family Medicine 02/24/24 Ramses Pyle MD [address] [place] [address] [phone] Cardiology 05/26/24 Pet Handler Relationship Specialty Start Date End Date Daniel Guerrero DO [address] [place], [place] [phone] PCP - General Family Medicine 06/05/24 Boubacar Sky APRN.HORSE SHOER [address] [place] [address] Referring Family Medicine 02/24/24 Ramses Pyle MD [address] [phone] Cardiology 05/26/24 Pet Handler Relationship Specialty Start Date End Date Daniel Guerrero DO [address] [place], [place] [phone] PCP - General Family Medicine 06/05/24 Boubacar Sky APRN.HORSE SHOER [address] [place] [address] Referring Family Medicine 02/24/24 Ramses Pyle MD [address] [phone] Cardiology 05/26/24 Pet Handler Relationship Specialty Start Date End Date Daniel Guerrero DO [address] [place] [address] PCP - General Family Medicine 06/05/24 Boubacar Sky, BASE WAD OPERATOR ADJUSTER.HORSE SHOER [address] [place] [address] Referring Family Medicine 02/24/24 Ramses Pyle MD [address] [phone] Cardiology 05/26/24 Pet Handler Relationship Specialty Start Date End Date Daniel Guerrero DO [address] [place], [place] [id number] PCP - General Family Medicine 06/05/24 Boubacar Sky, BASE WAD OPERATOR ADJUSTER.HORSE SHOER [facility] [place] [address] Referring Family Medicine 02/24/24 Ramses Pyle MD [address] [phone] Cardiology 05/26/24 Pet Handler Relationship Specialty Start Date End Date Daniel Guerrero DO [address] [place] [address] PCP - General Family Medicine 06/05/24 Boubacar Sky, BASE WAD OPERATOR ADJUSTER.HORSE SHOER [address] [place], [place] [address] Referring Family Medicine 02/24/24 Ramses Pyle MD [address] [phone] Cardiology 05/26/24 Team Status: Active Member Role/Relationship Status Dates Out of Town Doctor Primary Care Provider Active Team Status: Inactive Member Role/Relationship Status Dates Dr. Alex De Luna DO Attending Provider Active Start: February 26, 2025 End: February 26, 2025 Out of Town Doctor Primary Care Provider Active Start: February 26, 2025 End: February 26, 2025 Out of Town Doctor Referring Provider Active Sta rt: February 26, 2025 End: February 26, 2025 Pet Handler Relationship Specialty Start Date End Date Daniel Guerrero DO [address] [place] [phone] PCP - General Family Medicine 06/05/24 Boubacar Sky, MARCO.HORSE SHOER [address] [place] [address] Referring Family Medicine 02/24/24 Ramses Pyle MD [address] [phone] Cardiology 05/26/24 Pet Handler Relationship Specialty Start Date End Date Daniel Guerrero DO [address] [phone] PCP - General Family Medicine 06/05/24 Boubacar Sky, BASE WAD OPERATOR ADJUSTER.HORSE SHOER [address] [place] [address] Referring Family Medicine 02/24/24 Ramses Pyle MD [address] [phone] Cardiology 05/26/24 Pet Handler Relationship Specialty Start Date End Date Daniel Guerrero DO [address] [address] PCP - General Family Medicine 06/05/24 Boubacar Sky APRN.HORSE SHOER [address] [place] [address] Referring Family Medicine 02/24/24 Ramses Pyle MD [address] [place] [phone] Cardiology 05/26/24 Pet Handler Relationship Specialty Start Date End Date Daniel Guerrero DO [address] [phone] PCP - General Family Medicine 06/05/24 Boubacar Sky APRN.HORSE SHOER [address] [place] [address] Referring Family Medicine 02/24/24 Ramses Pyle MD [address] [phone] Cardiology 05/26/24 Pet Handler Relationship Specialty Start Date End Date Daniel Guerrero DO [address] [address] PCP - General Family Medicine 06/05/24 Boubacar Sky APRN.HORSE SHOER [address] [place] [address] Referring Family Medicine 02/24/24 Ramses Pyle MD [address] [phone] Cardiology 05/26/24 Team Status: Inactive Member Role/Relationship Status Dates Out of Town Doctor Primary Care Provider Active Start: March 18, 2025 End: March 18, 2025 Out of Town Doctor Referring Provider Active Sta rt: March 18, 2025 End: March 18, 2025 Liz Burns Attending Provider Active Star t: March 18, 2025 End: March 18, 2025 Pet Handler Relationship Specialty Start Date End Date Daniel Guerrero DO [address] [place] [address] PCP - General Family Medicine 06/05/24 Boubacar Sky APRN.HORSE SHOER [address] [place] [address] Referring Family Medicine 02/24/24 Ramses Pyle MD [address] [place] [address] [phone] Cardiology 05/26/24 Pet Handler Relationship Specialty Start Date End Date Daniel Guerrero DO [address] [place] [phone] PCP - General Family Medicine 06/05/24 Boubacar Sky APRN.HORSE SHOER [address] [place] [address] Referring Family Medicine 02/24/24 Ramses Pyle MD [address] [place] [phone] Cardiology 05/26/24 Pet Handler Relationship Specialty Start Date End Date Daniel Guerrero DO [address] [phone] PCP - General Family Medicine 06/05/24 Boubacar Sky APRN.CNP [address] [place] [address] Referring Family Medicine 02/24/24 Ramses Pyle MD [address] [phone] Cardiology 05/26/24 Goals (unrecognized section and content) Goals may be documented in a n alternate section FOR RECORDS PERTAINING TO PATIENTS WHO ARE OR HAVE BEEN ENROLLED IN A CHEMICAL DEPENDENCY/SUBSTANCEABUSE PROGRAM, SOME INFORMATION MAY BE OMITTED. This clinical summary was aggregated from multiple sources. Caution should be exercised in using it in the provision of clinical care. This summary normalizes information from multiple sources, and as a consequence, information in this document may materially change the coding, format and clinical context of patient data. In addition, data may be omitted in some cases. CLINICAL DECISIONS SHOULD BE BASED ON THE PRIMARY CLINICAL RECORDS. [employer] provides no warranty or guarantee of the accuracy or completeness of information in this document.
== END | disposition home or self-care (01) ==
LOC: NM 10:34
PROVIDERS: Referring Provider Internal Medicine Gastroenterology; Visit Provider Internal Medicine Gastroenterology
DX: R10.9 Unspecified abdominal pain (principal); R14.0 Abdominal distension (gaseous)
CPT/HCPCS: 78264; A9541